=== PATIENT | female | born 1980 | race Caucasian/White ===

== ENCOUNTER 2023-09-09 09:12 | Emergency (ER) | payer OTHER, BC, SELFPAY ==
[2023-09-09 09:14] VITALS: PULSE 72; RESP 16; TEMP 36.4; O2SAT 96; BMI 37.9
[2023-09-09 09:17] VITALS: BP 143/92
--- NOTE | 2023-09-09 10:15 | ED.VIS.LOWEX ---
HPI History of Present Illness HPI Narrative: Left lower leg flap laceration, anterior mohan that occurred at work when a car park hit her leg. Tetanus needs updated. No other injuries. This occurred about 2 hours ago. Chief Complaint: Wound Informant: patient and family Occured/Mechanism Mechanism/Context: Yes injury and Yes blunt trauma Onset/Context/Timing Onset: Today and Hours Context: Sudden Onset Timing: Continuous Quality of Pain: Sharp Current Severity: Moderate Maximum Severity: Moderate Associated Symptoms Associated Symptoms: Negative for Parasthesia, Weakness or Loss of Funtion Narrative Narrative: 42-year-old female history of depression on Lexapro had a work injury today when a car part hit her in her left lower mohan causing a flap laceration and needs repaired. Tetanus needs updated. Tetanus Immunization: >10 years Prior similar symptoms: No Recent Illness/Hospitalization: No PFSH PFSH Medical History Anxiety Home Medications oxycodone-acetaminophen 5 mg-325 mg tablet (Percocet) 1 tab PO Q4H PRN pain 3 days #10 tabs 09/09/23 [Rx Last Taken Unknown] Allergy/AdvReac Type Severity Reaction Status Date / Time No Known Allergies Allergy Verified 09/09/23 09:14 Social History Smoking Status: Former smoker ROS ROS ED ROS Narrative Denies recent illness. Review of Systems ROS Unobtainable: Denies due to encephalopathy Constitutional Constitutional ED: Denies chills or fever(s) Eyes Eyes: Denies blurry vision ENT ENT ED: Denies ear pain Cardiovascular Cardiovascular: Denies chest pain Respiratory/Chest Respiratory/Chest: Denies cough or dyspnea Gastrointestinal Gastrointestinal: Denies abdominal pain Genitourinary Genitourinary ED: Denies dysuria or hematuria Musculoskeletal Musculoskeletal: Denies arthralgias or back pain Integumentary Denies abscess, Abrasions or rash Neurologic Neurologic: Denies headache(s) Psychiatric Psychiatric: Denies anxiety, depression or suicidal ideation Endocrine Endocrinology: Denies polydipsia, polyphagia or polyuria Hematologic/Lymphatic Hematologic/Lymphatic: Denies easy bleeding, easy bruising or lymphadenopathy Allergic/Immunologic Allergic/Immunologic ED: Denies mouth swelling, tongue swelling or urticaria EXAM Physical Exam Narrative Exam Narrative: Well-appearing 42-year-old female. Vital signs stable afebrile. HEENT exam unremarkable. Neck nontender no JVD. Lungs clear to auscultation bilaterally. Heart regular rhythm rate about 70 no murmur. Chest wall and ribs nontender. Abdomen soft nontender. Back nontender. Moving all 4 extremities. The left lower leg anterior lower mohan has a flap laceration approximately 6 inches in length upside down V-shaped. Active bleeding. Distally the ankle and foot are neurovascularly intact with normal DP pulse. Normal dorsi plantarflexion. Normal strength and sensation. Normal cap refill. Neurologically she is awake and alert with no focal motor deficits. Const Vital Signs: 09/09/23 09:14 09/09/23 09:17 09/09/23 11:13 Temperature 97.6 F L Temperature Source Temporal Pulse Rate 72 69 Respiratory Rate 16 16 Blood Pressure 143/92 H 176/94 H Blood Pressure Mean 109 121 Pulse Ox 96 97 Oxygen Delivery Method Room Air Room Air Positive well nourished and well developed; Negative for cachectic, contractures or unkempt General Appearance ED: well developed and NAD; Negative for unkempt, cachectic or contractures Nutritional Appearance: Negative for cachectic HEENT Reports moist mucous membranes normocephalic and atraumatic; Negative for trauma or tenderness Eyes PERRL General Eye ED: Negative for other Neck full ROM and supple Thyroid: Negative for tender or other Lymph Lymphatic: Negative for other Chest Wall inspection of chest normal and palpation of chest normal Chest: Negative for other Resp normal respiratory effort, no retractions and clear to auscultation bilaterally Effort and Inspection: Negative for pain with movement Auscultation: Negative for rales, rhonchi, wheezes or diminished lung sounds Cardio regular rate, regular rhythm, S1 normal heart sound, S2 normal heart sound and no murmurs Rate: Negative for bradycardia or tachycardic Rhythm: Negative for abnormal rhythm Bruits: Negative for other GI non-tender, non-distended and no masses Inspection: Negative for abdominal distention Auscultation: normoactive bowel sounds Palpation: soft; Negative for tender, guarding or rebound tenderness present Back/Spine no CVA tenderness General Back: Negative for CVA tenderness Cervical Spine: Negative for cervical spine tenderness Thoracic Spine / Upper Back: Negative for thoracic spinal tenderness Lumbar Spine / Lower Back: Negative for lumbar spinal tenderness Extremity normal to inspection and full ROM Extremity Narrative: Except flap laceration, upside down V, anterior left lower mohan. Active bleeding. Foot and ankle neurovascularly intact. General Extremety ED: Negative for cyanosis or edema General Extremity: Negative for cyanosis or edema Neuro oriented x3, CN's II-XII intact bilaterally and moves all extremities Sensorium / Orientation: alert, oriented to person, oriented to place and oriented to time; Negative for orientation impaired, confused, lethargic or stuporous Sensory Exam: No sensory level loss detected Motor Exam: strength 5/5 throughout; Negative for general weakness or strength abnormal Psych mental status grossly normal Appearance: Negative for unkempt Speech: No other Mood & Affect: Negative for anxious Skin No no wounds Lesions: no lesions Rashes: no rashes Trauma: laceration; Negative for abrasion MDM MDM MDM Narrative Medical decision making narrative: 42-year-old female left lower leg flap laceration needs repaired. Tetanus will be updated. 1 Percocet for pain. Patient doing well post wound closure. Will be cleaned and dressed. Tetanus was updated. History & Record Review Discussion w/independent historian: Patient Procedures Lacerations 6 inch inverted V flap laceration left lower leg:: Length: 6 in Depth: Sub Q Shape: Flap Prep: Betadine Laceration repair: Irrigated and Lidocaine Irrigated (ml): 100 Number of Sutures/[address]: 17 Suture Information: Ethilon, Simple and 4-0 Comment: Inverted V-shaped laceration anterior left lower mohan. Locally anesthetized initially with let and lidocaine. Cleaned with iodine. Washed and irrigated with saline. Explored. Involve the skin and subcu tissue. No bone. No foreign body. No tendon or ligaments. Venous bleeding. No arterial bleeding. Closed using 17 simple interrupted 4-0 Ethilon sutures. Proper hemostasis and wound closure is obtained. Instructed on wound care and suture removal. Discharge Plan Triage Chief Complaint: Wound ED Provider: Jim Helms Dx/Rx/DC Orders Clinical Impression: Encounter related to worker's compensation claim, Laceration of left leg Instructions: ED Laceration Extremity Prescriptions: New oxycodone-acetaminophen [Percocet] 5-325 mg tablet 1 tab PO Q4H PRN (Reason: pain) 3 Days Qty: 10 0RF Primary Care Provider: Davis Coy Referrals: Corporate,[facility] [Group of Physicians] - 10-14 Days suture removal (Suture removal in 14 days.) [facility] Doctor,Out of [Non-Staff] - Activity Restrictions/Additional Instructions: Keep the dressing dry and clean. Keep the wound dry and clean. After you shower carefully dry it off thoroughly. Apply antibiotic ointment daily. You can leave our dressing on for 3 to 4 days. Then start changing it daily. Apply antibiotic ointment such as bacitracin or Neosporin to the wound daily. Ice and elevate to decrease swelling and pain. Motrin and Tylenol for pain. Percocet for more severe pain if you are using the Percocet and has Tylenol already in it do not take any additional Tylenol while using the Percocet. Plenty of fluids, fruits, vegetables and fiber to prevent constipation. Do not drink or drive if using the Percocet. Off work until Tuesday. Any signs of infection such as significant redness, streaks, fever swelling or pus needs to be reevaluated to rule out any developing infection. Disposition Disposition: Home, Self Care
[2023-09-09] MEDS: Diphth,Pertuss(Acell),Tet Vac 0.5 ML Vial IM (10:27)
[2023-09-09] MEDS: Lidocaine 1% (20 ml mdv) 20 ML Vial INFILT (10:27)
[2023-09-09] MEDS: Oxycodone/Apap 5/325 Tablet PO (10:32)
[2023-09-09 11:13] VITALS: BP 176/94; PULSE 69; RESP 16; O2SAT 97
[2023-09-09 12:25] VITALS: BP 170/109; PULSE 80; RESP 16
[2023-09-09 12:28] VITALS: BP 170/94; PULSE 65; RESP 16; TEMP 37; O2SAT 98
== END 2023-09-09 12:30 | disposition home or self-care (01) ==
PROVIDERS: Emergency Provider Emergency Medicine; Visit Provider Emergency Medicine
DX: S81.812A Laceration without foreign body, left lower leg, initial encounter (principal); Z23 Encounter for immunization; W22.8XXA Striking against or struck by other objects, initial encounter; Y99.0 Civilian activity done for income or pay; Z87.891 Personal history of nicotine dependence
CPT/HCPCS: 12005; 90471; 90715; 99283

== ENCOUNTER → 2024-04-06 | Outpatient (CLI) | payer BC, SELFPAY ==
--- NOTE | 2024-04-06 16:55 | RAD_ITS ---
INDICATION: KNEE PAIN EXAMINATION/TECHNIQUE: X-RAY - RIGHT XR Knee Complete 4 Views or More 4 VIEWS COMPARISON: None. FINDINGS: SOFT TISSUES: No soft tissue swelling or gas. BONES/JOINTS: No acute fracture. Joint spaces anatomically maintained with mild degenerative changes. No sclerotic or destructive changes observed. RAD/Knee 4 or More Views IMPRESSION: Mild degenerative changes. Electronically Signed: Arik White MD at 20:31 EDT ,
--- OUTSIDE RECORDS SUMMARY | 2024-04-06 16:59 | XMS RPT_ITS | CCD ---
Author Organization [facility] CliniSyin Care Team Providers Care Stack Supervisor Name Role Phone PROVIDER, UNKNOWN Unavailable Unavailable No, PCP Unavailable Unavailable ANITHA IBARRA Unavailable Unavailable Elsa Mac Unavailable Unavailable PROVIDER, UNKNOWN Unavailable Unavailable Santo Martin Unavailable Unavailable KATIA WATSON Attending Unavailable IMCA Referring Unavailable LINZEY, ESTRADA ([facility]) Primary Care Unavailabl e COLKATIA Fong Attending Unavailable [facility] Referring Unavailable LINZEY, ESTRADA ([facility]) Primary Care Unavaillars e KATIA WATSON Attending Unavailable IMCA Referring Unavailable LINZEY, ESTRADA ([facility]) Primary Care Unavailabl e COLKATIA Fong Attending Unavailable IMCA Referring Unavailable LINZEY, ESTRADA ([facility]) Primary Care Unavailabl e LINZEY, ESTRADA ([facility]) Attending Unavailabl e IMCA Referring Unavailable LINZEY, ESTRADA ([facility]) Primary Care Unavailabl e LINZEY, ESTRADA ([facility]) Referring Unavailabl e LINZEY, ESTRADA ([facility]) Primary Care Unavailabl e LINZEY, ESTRADA ([facility]) Attending Unavailabl e IMCA Referring Unavailable LINZEY, ESTRADA ([facility]) Primary Care Unavailabl e LINZEY, ESTRADA ([facility]) Attending Unavailabl e IMCA Referring Unavailable LINZEY, ESTRADA ([facility]) Primary Care Unavailabl e LINZEY, ESTRADA ([facility]) Referring Unavailabl e LINZEY, ESTRADA ([facility]) Primary Care Unavailabl e LINZEY, ESTRADA ([facility]) Primary Care Unavailabl e LINZEY, ESTRADA ([facility]) Primary Care Unavailabl e KYLER NUR Attending Unavailable LINZEY, ESTRADA ([facility]) Referring Unavailabl e LINZEY, ESTRADA ([facility]) Primary Care Unavailabl e LINZEY, ESTRADA ([facility]) Attending Unavailabl e LINZEY, ESTRADA ([facility]) Referring Unavailabl e LINZEY, ESTRADA ([facility]) Primary Care Unavailabl e LINZEY, ESTRADA ([facility]) Referring Unavailabl e LINZEY, ESTRADA ([facility]) Primary Care Unavailabl e LINZEY, ESTRADA ([facility]) Referring Unavailabl e LINZEY, ESTRADA ([facility]) Primary Care Unavailabl e LINZEY, ESTRADA ([facility]) Referring Unavailabl e LINZEY, ESTRADA ([facility]) Primary Care Unavailabl e LINZEY, ESTRADA ([facility]) Attending Unavailabl e IMCA Referring Unavailable LINZEY, ESTRADA ([facility]) Primary Care Unavailabl e LINZEY, ESTRADA ([facility]) Referring Unavailabl e LINZEY, ESTRADA ([facility]) Primary Care Unavailabl e Rene SALGADO, Marcello Primary Care Provider William SALGADO, Daron [facility] Provid er López, Marcello Referring Unavailable López, Marcello Primary Care Unavailable Davis Coy Attending Unavailable López, Marcello Referring Unavailable Luciana Monsivais Attending Unavailable Ólpez, Marcello Primary Care Unavailable López, Marcello Referring Unavailable López, Marcello Primary Care Unavailable Josephine Herrera Attending Unavailable López, Marcello Primary Care Unavailable PROVIDER, UNKNOWN Referring Unavailable Josephine Herrera Attending Unavailable López, Marcello Primary Care Unavailable López, Marcello Referring Unavailable Nataliia Arora Attending Unavailable López, Marcello Primary Care Unavailable Ólpez, Marcello Referring Unavailable Nataliia Arora Attending Unavailable Rema SALGADO, [place] Primary Care Provider William [facility] Rema SALGADO, [place] Primary Care Provider William SAL[facility]ADO, [facility] Provid er KT WASTON Attending Unavailable KT WATSON Admitting Unavailable DARON THOMAS [facility] DANIELLA Herrera Attending Unavailable WILLIAM DARON Primary Care CHANEL Alicia Attending Unavailable ADRI HODGSON Primary Care Unavailable ADRI HODGSON Primary Care Unavailable ADRI HODGSON Primary Care Unavailable Desire SALGADO, Sinai Primary Care Provider Allergies Allergy Classification Reported Allergen(s) Allergy Type Date of Onset Reaction(s) Facility (13 sources) beta Sitosterol / ZINC CITRATE Drug Allergy 10-08-2022 Itching [facility] Medications Current Medications Medication Drug Class(es) Dates Sig (Normalized) Sig (Original) amLODIPine 10 mg oral tablet (1 source) Dihydropyridine Calcium Channel [place] Start: 07-28-2021 take 1 tablet by mouth once daily amLODIPine (NORVASC) 10 MG tablet Indications: Primary hypertension Take 1 tablet by mouth nightly 30 tablet 3 07/28/2021 Active benzonatate 100 mg oral capsule (5 sources) Non-narcotic Antitussive Start: 05-31-2023 End: 06-07-2023 take 1 capsule by mouth every eight hours benzonatate (Tessalon) 100 MG capsule Take 1 capsule (100 mg) by mouth in the morning and 1 capsule (100 mg) at noon and 1 capsule (100 mg) before bedtime. Do all this for 7 days. Do not crush or chew.. 21 capsule 0 05/31/2023 06/07/2023 Active Start: 04-11-2023 End: 04-18-2023 take 1 capsule by mouth every eight hours benzonatate (Tessalon) 100 MG capsule Take 1 capsule (100 mg) by mouth in the morning and 1 capsule (100 mg) at noon and 1 capsule (100 mg) before bedtime. Do all this for 7 days. Do not crush or chew.. 21 capsule 0 04/11/2023 04/18/2023 Active 12 hr dextromethorphan hydrobromide 30 mg / guaiFENesin 600 mg extended release oral tablet (2 sources) Uncompetitive N-dcevak-B-aspartate Receptor Antagonist, Sigma-1 Agonist Start: 04-11-2023 End: 04-21-2023 take 1 tablet by mouth every twelve hours dextromethorphan-guaiFENesin (Mucinex DM) 30-600 MG 12 hr tablet Take 1 tablet by mouth in the morning and 1 tablet in the evening. Do all this for 10 days. Do not crush, chew, or split.. 20 tablet 0 04/11/2023 04/21/2023 Active docusate sodium 100 mg oral capsule (11 sources) Start: 03-07-2018 take 1 capsule by mouth once daily docusate sodium (COLACE) 100 mg capsule Indications: Constipation, unspecified constipation type Take 1 capsule by mouth once daily. 0 03/07/2018 Active Comment on above: Take 1 capsule by mo [facility] once daily. docusate sodium 50 mg / sennosides, retirement 8.6 mg oral tablet (1 source) Start: 07-03-2021 take 2 tablets by mouth once daily sennosides-docusate sodium (SENOKOT-S) 8.6-50 MG tablet Take 2 tablets by mouth daily 3 tablet 0 07/03/2021 Active hydroCHLOROthiazi de 25 mg oral tablet (1 source) Thiazide Diuretic Start: 07-28-2021 End: 08-27-2021 take 1 tablet by mouth once daily hydroCHLOROthiazide (HYDRODIURIL) 25 MG tablet Indications: Primary hypertension Take 1 tablet by mouth daily 30 tablet 0 07/28/2021 08/27/2021 Active lisinopril 10 mg oral tablet (7 sources) Angiotensin Converting Enzyme Inhibitor Start: 10-24-2023 End: 09-22-2024 take 1 tablet by mouth once daily lisinopril 10 MG tablet Indications: Primary hypertension TAKE 1 TABLET (10 MG) BY MOUTH DAILY. 90 tablet 1 03/26/2024 09/22/2024 Active Start: 07-28-2021 End: 08-27-2021 take 1 tablet by mouth once daily lisinopril (PRINIVIL;ZESTRIL) 20 MG tablet Indications: Primary hypertension Take 1 tablet by mouth daily 30 tablet 0 07/28/2021 08/27/2021 Active ondansetron 4 mg disintegrating oral tablet (7 sources) Serotonin-3 Receptor Antagonist Start: 07-02-2021 take 1 tablet by mouth three times daily as needed for nausea ondansetron (ZOFRAN-ODT) 4 MG disintegrating tablet Take 1 tablet by mouth 3 times daily as needed for Nausea or Vomiting 21 tablet 0 07/02/2021 Active Start: 03-09-2018 take 1 tablet by radha th every six hours ondansetron orally disintegrating (ZOFRAN ODT) 4 mg disintegrating tablet Take 1 tablet by mouth every 6 hours. 8 tablet 0 03/09/2018 Active Comment on above: Take 1 tablet by radha th every 6 hours. oseltamivir 75 mg oral capsule (3 sources) Neuraminidase Inhibitor Start: 05-31-20 End: 06-05-20 take 1 capsule by mouth every twelve hours oseltamivir (Tamiflu) 75 MG capsule Take 1 capsule (75 mg) by mouth in the morning and 1 capsule (75 mg) in the evening. Do all this for 5 current plan of care. Anesthesia Observations No Documentation SIGNATURE: Jordan Witt MD PATIENT NAME: Casimiro Liu DATE: December 24, 2022 TIME: 2:36 PM CSN: [id number] [facility] ANES PRE-OPon 12-24-2022 ANES PRE-OP HNO ID: [id number] Author: Jordan Witt MD Service: Anesthesiology Author Type: Physician Type: Anesthesia Preprocedure Evaluation Filed: 12/24/2022 11:35 AM Note Text: ANESTHESIOLOGY DAY OF SURGERY NOTE : 1980 Procedure Information Date/Time: 12/24/22 1300 Procedures: BIOPSY CERVICAL CONE LEEP (Cervix) REMOVAL INTRAUTERINE DEVICE (Cervix) Location: [address] Surgeons: Kt Watson MD Estimated body mass index is 36.05 kg/m? as calculated from the following: Height as of this encounter: 162.6 cm (5' 4 ). Weight as of this encounter: 95.3 kg (210 lb). Most recent hematocrit and potassium results: Hematocrit 40.8 06/19/2018 Potassium 3.8 03/08/2018 Relevant Problems -RENAL (+) Hepatic steatosis Other (+) Splenomegaly I - PHYSICAL EVALUATION AIRWAY Patient intubated: No. Tracheostomy tube not present Mallampati: III. TM distance: >3 FB. Neck ROM: full ROM without neurological symptoms. Mouth opening: adequate. Short neck: no. Thick neck: yes Clarke present: no Lip Bite Test: I Microretrognathia/Micronag thia/Recessed Chin: No DENTAL Dental findings: missing tooth/teeth. Additional exam findings: no II - ANESTHESIA PLAN ASA Score: 2 Anesthetic Plan: general Airway type: LMA The patient is not a current smoker. NPO Status: adequate Beta Beka Monitoring Plan Monitoring plan: standard ASA. Post Procedure Analgesic Plan Postoperative analgesic plan: parenteral or oral opioids. Informed Consent Anesthetic risks, benefits, alternatives, personnel and consent discussed: yes. Patient / Responsible Alliance Party agrees to proceed: yes Patient / Surrogate agrees to blood products: blood products not planned Significant changes in the patient condition since the History and Physical, not otherwise documented in primary service progress note: no. Potential Anesthesia issues that may suggest increased risk of complications or contraindication to planned procedure: none. Vitals Value Taken Time BP 156/87 12/24/22 1116 Pulse 80 12/24/22 1111 Resp 16 12/24/22 1111 Temp 36 ?C (96.8 ?F) 12/24/22 1111 SpO2 96 % 12/24/22 1111 Facility-Administered Medications as of 12/24/2022 Medication Dose Route Frequency - lidocaine 10 mg/mL (1 %) 1-2 mg injection (XYLOCAINE) 0.1-0.2 mL INTRADERMAL PRN - lactated ringers iv infusion 5-30 mL/hr INTRAVENOUS CONTINUOUS - NaCl 0.9% iv flush bag 20 mL INTRAVENOUS PRN - ceFAZolin iv piggyback 2 g in D5W (iso-osmotic) 100 mL (ANCEF) 2 g INTRAVENOUS Pre-Op Once Outpatient Medications as of 12/24/2022 Medication Sig - escitalopram oxalate (LEXAPRO ORAL) Take by mouth. - bisacodyl (DULCOLAX) 10 mg supp 1 Suppository by RECTAL route once daily as needed. (Patient not taking: No sig reported) - ondansetron orally disintegrating (ZOFRAN ODT) 4 mg disintegrating tablet Take 1 tablet by mouth every 6 hours. (Patient not taking: No sig reported) - docusate sodium (COLACE) 100 mg capsule Take 1 capsule by mouth once daily. (Patient not taking: No sig reported) - Terbinafine (LAMISIL, AEROSOL,) 1 % spra Apply 1 application to affected area twice daily. (Patient not taking: Reported on 11/30/2022) I have interviewed and examined the patient. I have reviewed the medical record and/or the pre-anesthesia evaluation, pertinent labs, and test results. This contains updated information obtained within 48 hours of Surgery/Procedure. SIGNATURE: Jordan Witt MD PATIENT NAME: Casimiro Liu DATE: December 24, 2022 TIME: 11:24 AM CSN: [id number] Normal [facility] HCG Preg Ur Qlon 12-24-2022 HCG ( test) Ql (U) Negative Normal Negative [facility] Comment on above: Order Comment: Speci men Type: URINE SPECIMENOrdering Facility: [facility] Address: [place] [address] Result Comment: This test is intended to aid in the early detection of . Very dilute urine samples, as indicated by a low specific gravity, may not contain primary care sales representative levels of hCG. This test detects intact hCG only. This test does not reliably detect hCG degradation products, including free-beta subunit and beta-core fragment. Therefore, this test may show reduced reactivity in urine after 8 weeks gestation. A number of conditions other than , including trophoblastic disease and certain non-trophoblastic neoplasms cause elevated levels of hCG. As with any assay employing mouse antibodies, the possibility exists for interference by human anti-mouse antibodies (HAMA) in the specimen. The test provides a presumptive diagnosis for . Performed By: #### 2 106-3 ####[facility] LABCLIA [id number] [place] [address] [place] HISTORY PHYSICALon 3 HISTORY PHYSICAL HNO ID: [id number] Author: Lovely Harmon APRN.REGIONAL SALES LEADER Service: Anesthesiology Author Type: Nurse Practitioner Type: HANDP Filed: 12/24/2022 11:37 AM Note Text: HISTORY AND PHYSICAL EXAMINATION Casimiro Liu 1980 SERVICE DATE: 12/24/2022 SERVICE TIME: 10:59 AM PRIMARY CARE PHYSICIAN: Daron Thomas MD SURGEON: Surgeon(s) and Role: * Kt Watson MD - Primary ANESTHESIA: General DIAGNOSIS: Pap smear of cervix with high grade squamous intraepithelial lesion (HGSIL) [R87.613] PROCEDURE: Procedure(s): BIOPSY CERVICAL CONE LEEP (N/A) REMOVAL INTRAUTERINE DEVICE (N/A) ACTIVE PROBLEM LIST Vitamin D Deficiency Moderate Episode of Recurrent Major Depressive Disorder (Hcc) Anxiety Onychomycosis Routine Cervical Smear Visit for Gynecologic Examination Encounter for Initial Prescription of Other Contraceptives Menorrhagia With Regular Cycle Secondary Dysmenorrhea Papanicolaou Smear of Cervix With Low Grade Squamous Intraepithelial Lesion (Lgsil) Encounter for Insertion of Mirena IUD Ventral Hernia Without Obstruction Or Gangrene Hepatic Steatosis Elevated Blood Pressure Reading Without Diagnosis of Hypertension Splenomegaly Ovarian Cyst, Right Breakthrough Bleeding With IUD Pelvic Cramping Encounter for Routine Checking of Intrauterine Contraceptive Device (Iud) Encounter for Screening Mammogram for Malignant Neoplasm of Breast Papanicolaou Smear of Cervix With High Grade Squamous Intraepithelial Lesion (Hgsil) Subjective The reason for this visit is to perform a comprehensive review of the patient's past medical history, assess their current health status and obtain any additional testing required based on anesthesia guidelines. We will also identify any potential anesthesia problems or contraindications to the planned procedure. CHIEF COMPLAINT: Abnormal pap smear HPI: This is a 42 year old female who presents with c/o an abnormal pap smear a few months ago . Pt is here today for surgical intervention and IUD removal. Pt states she has had her Mirena IUD for about 5 years . Pt denies any abnormal bleeding or pain. Pt does not have periods with her IUD. Pt states she plans to have a hysterectomy, so the IUD is being removed. ANESTHESIA FINDINGS: Intubation History: No history of difficult intubation Significant Anesthesia Considerations: None FAMILY PROBLEMS WITH ANESTHESIA: no history of adverse anesthetic event METS: Climb a flight of stairs or walk up a hill (5.50 METs) FUNCTIONAL STATUS: Independent PAST MEDICAL HISTORY Diagnosis Date Anxiety Depression Pancreatitis PAST SURGICAL HISTORY Procedure Laterality Date CHOLECYSTECTOMY 2005 FAMILY HISTORY Problem Relation Age of Onset Diabetes Mother Diabetes Father Social History Tobacco Use Smoking status: Former Packs/day: 0.50 Years: 15.00 Pack years: 7.50 Types: Cigarettes Quit date: 08/29/2018 Years since quittin.3 Smokeless tobacco: Never Vaping Use Vaping Use: Never used Substance Use Topics Alcohol use: Yes Comment: occasionally Drug use: No Prior to Admission medications as of 12/24/22 1133 Medication Sig Last Dose Taking escitalopram oxalate (LEXAPRO ORAL) Take by mouth. 12/23/2022 Yes bisacodyl (DULCOLAX) 10 mg supp 1 Suppository by RECTAL route once daily as needed. Patient not taking: No sig reported ondansetron orally disintegrating (ZOFRAN ODT) 4 mg disintegrating tablet Take 1 tablet by mouth every 6 hours. Patient not taking: No sig reported docusate sodium (COLACE) 100 mg capsule Take 1 capsule by mouth once daily. Patient not taking: No sig reported Terbinafine (LAMISIL, AEROSOL,) 1 % spra Apply 1 application to affected area twice daily. Patient not taking: Reported on 11/30/2022 ALLERGIES No Known Allergies COMPLETE REVIEW OF SYSTEMS: PAIN ASSESSMENT: Pain Pain Level: 0 Pain Assessment: Assessment Tool: Verbal (Numeric Rating or Visual Analog Scale) General: No weight loss, malaise or fevers. Neuro: No neurological symptoms or problems; no hx of seizure or stroke Respiratory: No history of current cough, wheezing, dyspnea, or recent pneumonia; no hx of asthma, COPD, or DMITRY; + former smoker quit 2018 Cardiovascular: No history of HTN requiring medication, no history of chest pain, palpitations, CHF, [place], cardiac surgery or stents GI: No history of GI symptoms or problems. No nausea, vomiting, abdominal pain, diarrhea : No history of dysuria, frequency or incontinence, stones or chronic kidney disease Endocrine: Negative for Diabetes or thyroid disease Hematology: No history of bleeding or clotting disorder. No history of hematological symptoms or problems. Oncology: No history of oncological symptoms or problems. Psych: +anxiety; + depression Musculoskeletal: Negative for joint pain or swelling, back pain or muscle pain. Skin: Negative for lesions, rash and itching. Obje (more content not included)... Normal [facility] NURSING PROGon 12-24-2022 NURSING PROG HNO ID: [id number] Author: Matthew Richmond RN Service: ? Author Type: Registered Nurse Type: Nursing Progress Note Filed: 12/24/2022 2:06 PM Note Text: Discharge instructions given to patient and mom, Edita. Patient dressed self, denied help. Patient ambulated to surgery discharge exit area. [facility] OPERATIVE NOon 12-24-2022 OPERATIVE NO HNO ID: [id number] Author: Antonella Gibbs DO Service: Obstetrics Author Type: Resident Type: Operative Report Filed: 12/24/2022 1:14 PM Note Text: -- Attestation signed by Kt Watson MD at 12/24/2022 4:54 PM I was present for the critical and hogan portions of the surgery and I was immediately available to provide assistance. Kt Watson MD -- FLAG DECORATOR OPERATIVE/PROCEDURE REPORT LOG ID: [id number] Surgery/Procedure Date: 12/24/2022 Incision/Procedure Start Time: 12:27 PM Incision Close/Procedure End Time: 12:50 PM Surgeon(s)/Proceduralist(s ) and Assessment Coordinator(s): Surgeon(s) and Role: * Kt Watson MD - Primary * Antonella Gibbs DO - Resident - Assisting No Additional Staff Informed Consent: Informed Consent obtained and on the chart Procedure: Removal of Mirena IUD, LEEP test: negative Pre-Op/Pre-Procedure Diagnosis: HGSIL, HPV 16+ on pap, ECC negative Post-Op/Post-Procedure Diagnosis: Same as Pre-Op Diagnosis Anesthesia: General PROCEDURE NOTE: She was placed in supine position with her legs in Yellowfin stirrups with careful attention not to hyperflex or hyperextend the knees or hips. A blue coated speculum was placed in the vagina with clear visualization of the entire transformation zone. The IUD strings were visible at the external os. A aidee forcep was utilized to remove the mirena IUD which was examined to be intact. The cervix was then infiltrated with approximately 20cc's of 2% lidocaine with epinephrine and stained with Acetic acid solution. Using a 15 mm W x 12 mm D Green LEEP loop and 60 parks of blend current the entire transition zone was excised in two horizontal sweeps without complication. No ECC done. Bleeders were then fulgurated with the 5mm bovie using 60 parks of coagulation current. A couple of figure of 8 stitches with 0 Vicryl was placed at 4 and 5 o'clock due to bleeding edges of the cervix. Hemostasis was good. Monsel's solution was applied to the bed. Patient tolerated the procedure well Procedure Summary: Patient tolerated procedure well. Estimated Blood Loss: 15 mL Specimens: LEEP Cone Implantable Devices: NONE Drains: None Complications: None A digital sweep of the vaginal canal was performed by the Resident and it was ascertained that no instruments or other foreign bodies are retained within the cavity. Sponge, lap, and needle counts were correct times two and the patient was taken to the recovery room with stable vital signs after tolerating the procedure well. The attending was present for critical and hogan portions of the procedure or immediately available to provide assistance. I/primary surgeon/proceduralist performed the procedure with assistance. SIGNATURE: Antonella Gibbs DO PATIENT NAME: Casimiro Liu DATE: December 24, 2022 TIME: 1:09 PM PAGER/CONTACT #: [facility] SURGICAL PATHOLOGYon 023 CASE REPORT [facility] Comment on above: Order Comment: Speci men Type: TISSUE SPECIMENOrdering Facility: External Submitter Address: , , Result Comment: Surg [facility] Pathology Report Case: [id number] Authorizing Provider: Kt Watson MD Collected: 12/24/2022 12:33 PM Ordering Location: [facility] Received: 12/27/2022 12:53 PM Pathologist: Kenisha Ellison MD Specimen: CERVIX LEEP Performed By: #### S ####[facility] LABORATORYCLIA [id number] [address] OF [facility] CLINICAL HISTORY High grade squamous intraepithelial lesion on cytologic smear of cervix Normal [facility] Comment on above: Order Comment: Speci men Type: TISSUE SPECIMENOrdering Facility: External Submitter Address: , , Performed By: #### S ####[facility] LABORATORYIA [id number] [address] [place] DIAGNOSIS COMMENT Normal [facility] Comment on above: Order Comment: Speci men Type: TISSUE SPECIMENOrdering Facility: External Submitter Address: , , Result Comment: Immu nohistochemical stain for p16 shows positive result (block positivity). Selected slides have been reviewed by Dr. Jordi Barakat, who concurs with the above findings. Laboratory Developed Test (LDT) Disclaimer: Performance characteristics of immunohistochemical, immunofluorescent and chromogenic in-situ hybridization tests have been determined by the performing laboratory within [facility]???s [facility] Pathology and Laboratory Medicine [place] ([facility], [facility], [facility], [facility], [facility], or [facility]) in a manner consistent with CLIA requirements. One or more of these tests have not been cleared or approved by the FDA. [facility] is regulated under CLIA as qualified to perform high-complexity testing. These tests are used for clinical purposes. They should not be regarded as investigational or for research. Positive and negative controls stain appropriately. Performed By: #### S ####[facility] [id number] [address] FINAL DIAGNOSIS Normal [facility] Comment on above: Order Comment: Speci men Type: TISSUE SPECIMENOrdering Facility: External Submitter Address: , , Result Comment: LILIANA BlasP: -- High-grade squamous intraepithelial lesion (DIONNE-3), involves 1 out of 4 quadrants and focally extends to ectocervical margin, see comment. Performed By: #### S ####[facility] [id number] [address] FINAL PERFORMING LAB Normal [facility] Comment on above: Order Comment: Speci men Type: TISSUE SPECIMENOrdering Facility: External Submitter Address: , , Result Comment: Diag nostic interpretation performed at [facility], [address] [place] [address] CLIA# [id number] Automobile Mechanic Radiator: Cameron Ernandez M.D. Performed By: #### S ####[facility] LABORATORYCLIA [id number] [address] GROSS DESCRIPTION A. CERVIX LEEP Normal [facility] Comment on above: Order Comment: Speci men Type: TISSUE SPECIMENOrdering Facility: External Submitter Address: , , Result Comment: Rece ived in formalin labeled as cervix LEEP is an unoriented, fragmented LEEP specimen aggregating to 2.0 x 2.0 x 1.0 cm. A partial cervical os is grossly identified. The ectocervix appears pink and smooth. The ectocervical margin is outlined with blue ink. A lesion is not present. The specimen is serially section, perpendicular to the os, and totally submitted in 4 cassettes. Gross examination performed at [facility], [address] [place] [address] CLIA#[id number] [facility] December 27, 2022 2:22 PM Performed By: #### S ####[facility] LABORATORYCLIA [id number] [address] OF [facility] Basic Metabolic Panelon 02-0 Anion gap [Moles/Vol] 9 mmol/L Normal 3-13 [facility] Comment on above: Performed By: #### H A1C2, ESR, CRP2 #### [facility] [address] [place] [address] #### ANA3 #### [facility] [address] [place] [address] Calcium [Mass/Vol] 10.1 mg/dL Normal 8.4-10.4 [facility] Comment on above: Performed By: #### H A1C2, ESR, CRP2 #### [facility] [address] [place] [address] #### ANA3 #### [facility] [address] [place] [address] CO2 [Moles/Vol] 28 mmol/L Normal 22-30 [facility] Comment on above: Performed By: #### H A1C2, ESR, CRP2 #### [facility] [address] [place] [address] #### ANA3 #### [facility] [address] [place] [address] Glucose [Mass/Vol] 127 mg/dL High 70-100 [facility] Comment on above: Performed By: #### H A1C2, ESR, CRP2 #### [facility] [address] [place] [address] #### ANA3 #### [address] [address] Urea nitrogen [Mass/Vol] 16 mg/dL Normal 9-20 [facility] Comment on above: Performed By: #### H A1C2, ESR, CRP2 #### [facility] [address] [place] [address] #### ANA3 #### [address] [address] Creatinine [Mass/Vol] 0.63 mg/dL Normal 0.52-1.25 [facility] Comment on above: Performed By: #### H A1C2, ESR, CRP2 #### [facility] [address] [place] [address] #### ANA3 #### [address] [address] eGFR OTHER > 90.0 Normal >60 [facility] Comment on above: Result Comment: KDIG O guidelines provide the following GFR categories: Stage GFR(ml/min/1.73 m2) Terms G1 >=90 Normal or high G2 60-89 Mildly decreased* G3a 45-59 Mildly to moderately decreased G3b 30-44 Moderately to severely decreased G4 15-29 Severely decreased G5 <15 Kidney failure *Relative to young adult level. In the absence of evidence of kidney damage, neither GFR category G1 nor G2 fulfill the criteria for CKD. The CKD-EPI equation is validated in individuals 18 years of age and older. Currently the best equation for estimating glomerular filtration rate (GFR) from serum creatinine in children is the Bedside Wisdom equation. It is less accurate in patients with extremes of muscle mass, restriction of dietary protein, ingestion of creatine, extra-renal metabolism of creatinine, or treatment with medications that affect renal tubular creatinine secretion. Performed By: #### H A1C2, ESR, CRP2 #### [facility] [address] [place] [address] #### ANA3 #### [address] GFR/1.73 sq M.predicted among blacks MDRD (S/P/Bld) [Vol rate/Area] mL/min/{1.73_m2} Normal >60 [facility] Comment on above: Performed By: #### H A1C2, ESR, CRP2 #### [facility] [address] [place] [address] #### ANA3 #### [address] [address] Potassium [Moles/Vol] 3.8 mmol/L Normal 3.5-5.1 [facility] Comment on above: Performed By: #### H A1C2, ESR, CRP2 #### [place] [address] [place] [address] #### ANA3 #### [address] Chloride [Moles/Vol] 98 mmol/L Normal 98-107 [facility] Comment on above: Performed By: #### H A1C2, ESR, CRP2 #### [address] [place] [address] #### ANA3 #### [address] Sodium [Moles/Vol] 135 mmol/L Normal 135-145 [facility] Comment on above: Performed By: #### H A1C2, ESR, CRP2 #### [address] [place] [address] #### ANA3 #### [address] [address] CR Chest Portableon 07-21-19 22 CR Chest Portable Patient Name: CASIMIRO MCCARTY Diagnostic Radiology ACCESSION EXAM DATE/TIME PROCEDURE ORDERING PROVIDER [id number] 07/21/2021 14:27 EST CR Chest Portable [id number] NAKUL FLORES CPT code 47482 Reason For Exam (CR Chest Portable) left sided chest pain Report Examination: AP portable chest Clinical Indication: left sided chest pain Comparison: 06/28/2021 Findings: Lungs appear normally inflated. Minimal subsegmental atelectasis left costophrenic angle improved from comparison. There is no focal consolidation, effusion, or pulmonary edema identified. The cardiomediastinal silhouette is within normal limits. There is no gross evidence of osseous abnormality. Impression: No acute cardiopulmonary process. Report Dictated on Final Dictating Physician: MD DAVIS ANTHONY J Signed Date and Time: 07/21/2021 2:42 pm Signed by: MD DAVIS ANTHONY J Transcribed Date and Time: 07/21/2021 2:43 Normal [facility] ED Provider Noteon ED Provider Note Emergency Department Encounter [facility] ED Patient: Casimiro Liu : 1980 Date of Evaluation: 07/21/2021 ED Supervising Physician: Luciana Monsivais DO I independently examined and evaluated Casimiro Liu. In brief, ED Course as of 07/21/21 1541 Tue Jul 21, 2021 1416 40-year-old female presents emergency department today with some mild left-sided chest pain as well as high blood pressure. She states that she was recently admitted for acute pancreatitis is being evaluated for autoimmune causes and also had been told that she is hypertensive was recently started on multiple antihypertensive medications. She states today she was reaching for something and noticed an electric tingling sensation in her left arm which is since resolved. Reports mild headache as well. Denies any blurry vision, weakness, current numbness or tingling or any speech issues [BM] 1416 on exam patient's NIH stroke scale is 0. She is not a TPA candidate due to no acute focal neurological deficits at this time, low NIH stroke scale. [BM] 1416 Neurological exam is currently unremarkable, no sensation deficits, no strength deficits, no acute visual field deficits, speech is normal. [BM] 1417 Patient is low risk heart score [BM] 1417 And has atypical chest pain history however will obtain cardiac evaluation here and continue to monitor for any recurrence of her tingling in the upper extremity. [BM] 1417 At this time patient's blood pressure is within normal limits at 120/73 no need for intervention at this time. [BM] 1522 Chest x-ray showing no acute process. [BM] ED Course User Index [BM] Luciana Monsivais DO Patient signed out to oncoming emergency medicine physician pending laboratory studies. If troponin is negative as she is low risk heart score I feel she is safe for discharge home with cardiology follow-up for stress testing. All diagnostic, treatment, and disposition decisions were made by myself in conjunction with the Resident. I also supervised hogan portions of any procedures performed by the Resident. For all further details of the patient's emergency department visit, please see their documentation. (Please note that portions of this note may have been completed with a voice recognition program. Efforts were made to edit the dictations but occasionally words are mis-transcribed.) Luciana Monsivais DO [employer] Luciana Monsivais DO 07/21/21 1542 [facility] ED Provider Note [facility] ED EMERGENCY DEPARTMENT ENCOUNTER Pt Name: Casimiro Liu Birthdate 1980 Date of evaluation: 07/21/2021 Provider: Nakul López MD CHIEF COMPLAINT Chief Complaint Patient presents with ? Hypertension HISTORY OF PRESENT ILLNESS (Location/Symptom, Timing/Onset, Context/Setting, Quality, Duration, Modifying Factors, Severity) Note limiting factors. I wore a kn95 mask for the entirety of this encounter. Does this patient come from an ECF, SNF, Rehab, Mcfp or other Congregate setting: no (If yes to above patient needs a Covid-19 test) HPI Casimiro Liu is a 40 y.o. female who presents to the emergency department with concerns of left-sided shocking chest pain as well as tingling in her left arm that occurred around 1020 this morning. Patient states she has been feeling well over the past day where she was having a sore throat, headache and went to sleep at 430. This morning was also having the symptoms but went to work. 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 Patient states she was admitted to the hospital in the beginning of June where she was noted to have pancreatitis, elevated blood pressure as well as COVID-19. Did have improvement in her symptoms as well as started on antihypertensive medication prior to discharge which she has been taking. Also is on a course of steroids for her pancreatitisas there is an unknown reason for it. Does endorse some fevers/chills. Denies any shortness of breath associated with this. Did endorse some nausea yesterday and today. No emesis. Nursing Notes were reviewed. REVIEW OF SYSTEMS (2+ for level 4; 10+ for level 5) Review of Systems Constitutional: Positive for activity change. Negative for chills, diaphoresis, fatigue and fever. HENT: Negative for congestion, ear pain, postnasal drip, rhinorrhea, sneezing and sore throat. Eyes: Negative for pain and redness. Respiratory: Negative for cough, chest tightness and shortness of breath. Cardiovascular: Positive for chest pain. Negative for leg swelling. Gastrointestinal: Negative for abdominal pain, constipation, diarrhea, nausea and vomiting. Endocrine: Negative for polyuria. Genitourinary: Negative for dysuria, flank pain and hematuria. Musculoskeletal: Negative for arthralgias, back pain and neck pain. Skin: Negative for pallor and rash. Neurological: Positive for numbness. Negative for dizziness, weakness and headaches. PAST MEDICAL HISTORY History reviewed. No pertinent past medical history. SURGICAL HISTORY Past Surgical History: Procedure Laterality Date ? CHOLECYSTECTOMY CURRENT MEDICATIONS Discharge Medication List as of 07/21/2021 4:36 PM CONTINUE these medications which have NOT CHANGED Details spironolactone (ALDACTONE) 25 MG tablet Take 1 tablet by mouth daily, Disp-30 tablet, R-3Normal hydroCHLOROthiazide (HYDRODIURIL) 25 MG tablet Take 1 tablet by mouth daily, Disp-30 tablet, R-3Normal amLODIPine (NORVASC) 10 MG tablet Take 1 tablet by mouth nightly, Disp-30 tablet, R-3Normal polyethylene glycol (GLYCOLAX) 17 g packet Take 17 g by mouth 2 times daily, Disp-527 g, R-1Normal sennosides-docusate sodium (SENOKOT-S) 8.6-50 MG tablet Take 2 tablets by mouth daily, Disp-3 tablet, R-0Normal lisinopril (PRINIVIL;ZESTRIL) 20 MG tablet Take 1 tablet by mouth 2 times daily, Disp-60 tablet, R-0Normal predniSONE (DELTASONE) 20 MG tablet Take 2 tablets by mouth daily for 12 days, THEN 1 tablet daily for 5 days, THEN 0.5 tablets daily for 5 days., Disp-32 tablet, R-0Normal ondansetron (ZOFRAN-ODT) 4 MG disintegrating tablet Take 1 tablet by mouth 3 times daily as needed for Nausea or Vomiting, Disp-21 tablet, R-0Normal ALLERGIES Patient has no known allergies. FAMILY HISTORY History reviewed. No pertinent family history. SOCIAL HISTORY Social History Socioeconomic History ? Marital status: Single Spouse name: None ? Number of children: None ? Years of education: None ? Highest education level: None Occupational History ? None Tobacco Use ? Smoking status: Former Smoker Quit date: 2016 Years since quittin.0 ? Smokeless tobacco: Never Used ? Tobacco comment: occasional Vaping Use ? Vaping Use: Never used Substance and Sexual Activity ? Alcohol use: Not Currently Comment: rarely ? Drug use: No ? Sexual activity: Not Currently Other Topics Concern ? None Social History Narrative ? None Social Determinants of Health Financial Resource Strain: Medium Risk ? Difficulty of Paying Living Expenses: Somewhat hard Food Insecurity: No Food Insecurity ? Worried About Running Out of Food in the Last Year: Never true ? Ran Out of Food in the Last Year: Never true Transportation Needs: No Transportation Needs ? Lack of Transportation (Medical): No ? Lack of Transportation (Non-Medical): No Physic (more content not included)... Normal [facility] Hemogramon 07-21-2021 Erythrocyte distribution width (RBC) [Ratio] 14.0 % Normal 11.5-14.5 [facility] Comment on above: Performed By: #### H A1C2, ESR, CRP2 #### [facility] [address] [place] [address] #### ANA3 #### [facility] [address] [place] [address] Hematocrit (Bld) [Volume fraction] 43.0 % Normal 35.0-47.0 [facility] Comment on above: Performed By: #### H A1C2, ESR, CRP2 #### [facility] [address] [place] [address] #### ANA3 #### [address] [address] Hemoglobin (Bld) [Mass/Vol] 14.1 g/dL Normal 11.7-16.0 [facility] Comment on above: Performed By: #### H A1C2, ESR, CRP2 #### [facility] [address] [place] [address] #### ANA3 #### [place] [address] [place], [place] MCH (RBC) [Entitic mass] 27.9 pg Normal 26.0-34.0 [facility] Comment on above: Performed By: #### H A1C2, ESR, CRP2 #### [address] [place] [address] #### ANA3 #### [address] MCHC 32.7 % Normal 32.0-36.0 [facility] Comment on above: Performed By: #### H A1C2, ESR, CRP2 #### [address] [place] [address] #### ANA3 #### [address] MCV (RBC) [Entitic vol] 85.2 fL Normal 79.0-98.0 [facility] Comment on above: Performed By: #### H A1C2, ESR, CRP2 #### [address] [place] [address] #### ANA3 #### [address] Platelet mean volume (Bld) [Entitic vol] 8.2 fL Normal 7.4-10.4 [facility] Comment on above: Performed By: #### H A1C2, ESR, CRP2 #### [address] [place] [address] #### ANA3 #### [address] Platelets (Bld) [#/Vol] 414 10*3/uL Normal 140-440 [facility] Comment on above: Performed By: #### H A1C2, ESR, CRP2 #### [address] [place] [address] #### ANA3 #### [facility] [address] [place] [address] RBC (Bld) [#/Vol] 5.05 10*6/uL Normal 3.80-5.20 [facility] Comment on above: Performed By: #### H A1C2, ESR, CRP2 #### [facility] [address] [place] [address] #### ANA3 #### [facility] [address] [place] [address] WBC (Bld) [#/Vol] 13.3 10*3/uL High 3.6-10.7 [facility] Comment on above: Performed By: #### H A1C2, ESR, CRP2 #### [facility] [address] [place] [address] #### ANA3 #### [facility] [address] [place] [address] Troponin Ion 07-21-2021 Troponin I.cardiac [Mass/Vol] ng/mL Normal 0.000-0.034 [facility] Comment on above: Result Comment: . Performed By: #### H A1C2, ESR, CRP2 #### [facility] [address] [place] [address] #### ANA3 #### [facility] [address] [place] [address] CA 19-9on 07-05-2021 CA 19-9 30 U/mL Normal 0-37 [facility] Comment on above: Result Comment: INTE RPRETIVE INFORMATION: Cancer Antigen-GI (CA 19-9) This test uses Hector CA 19-9 electrochemiluminescent immunoassay. Results obtained with different test methods or kits cannot be used interchangeably. CA 19-9 value is useful in monitoring pancreatic, hepatobiliary, gastric, hepatocellular, and colorectal cancer. CA 19-9 value, regardless of level, should not be interpreted as absolute evidence of the presence or absence of malignant disease. Performed By: [employer] [address] [place] [id number] [employer] Radiator: Sofia Anderson MD Performed By: #### H EMDF, CMP3M #### [facility] [address] [place] [address] Comp Panel with Mg Reflexon 07-04-2021 Calcium [Mass/Vol] 9.4 mg/dL Normal 8.4-10.4 [facility] Comment on above: Performed By: #### H EMDF, CMP3M, MG3 #### [facility] [address] [place] [address] ALP [Catalytic activity/Vol] 55 U/L Normal 38-126 [facility] Comment on above: Performed By: #### H EMDF, CMP3M, MG3 #### [facility] [address] [place] [address] ALT [Catalytic activity/Vol] 31 U/L Normal 0-34 [facility] Comment on above: Result Comment: The ALT test is performed by an updated assay method. Please note that the reference intervals have been changed and are now sex specific. Performed By: #### H EMDF, CMP3M, MG3 #### [facility] [address] [place] [address] Anion gap [Moles/Vol] 8 mmol/L Normal 3-13 [facility] Comment on above: Performed By: #### H EMDF, CMP3M, MG3 #### [facility] [address] [place] [address] AST [Catalytic activity/Vol] 44 U/L Normal 15-46 [facility] Comment on above: Performed By: #### H EMDF, CMP3M, MG3 #### [facility] [address] [place] [address] Bilirubin [Mass/Vol] 0.6 mg/dL Normal 0.2-1.3 [facility] Comment on above: Performed By: #### H EMDF, CMP3M, MG3 #### [facility] [address] [place] [address] CO2 [Moles/Vol] 29 mmol/L Normal 22-30 [facility] Comment on above: Performed By: #### H EMDF, CMP3M, MG3 #### [facility] [address] [place] [address] Creatinine [Mass/Vol] 0.57 mg/dL Normal 0.52-1.25 [facility] Comment on above: Performed By: #### H EMDBLU Jerome3M, MG3 #### [facility] [address] [place] [address] eGFR OTHER > 90.0 Normal >60 [facility] Comment on above: Result Comment: KDIG O guidelines provide the following GFR categories: Stage GFR(ml/min/1.73 m2) Terms G1 >=90 Normal or high G2 60-89 Mildly decreased* G3a 45-59 Mildly to moderately decreased G3b 30-44 Moderately to severely decreased G4 15-29 Severely decreased G5 <15 Kidney failure *Relative to young adult level. In the absence of evidence of kidney damage, neither GFR category G1 nor G2 fulfill the criteria for CKD. The CKD-EPI equation is validated in individuals 18 years of age and older. Currently the best equation for estimating glomerular filtration rate (GFR) from serum creatinine in children is the Bedside Wisdom equation. It is less accurate in patients with extremes of muscle mass, restriction of dietary protein, ingestion of creatine, extra-renal metabolism of creatinine, or treatment with medications that affect renal tubular creatinine secretion. Performed By: #### H WU CMP3M, MG3 #### [facility] [address] [place] [address] GFR/1.73 sq M.predicted among blacks MDRD (S/P/Bld) [Vol rate/Area] mL/min/{1.73_m2} Normal >60 [facility] Comment on above: Performed By: #### H WU CMP3M, MG3 #### [facility] [address] [place] [address] Glucose [Mass/Vol] 99 mg/dL Normal 70-100 [facility] Comment on above: Performed By: #### H EMDF CMP3M, MG3 #### [facility] [address] [place] [address] Protein [Mass/Vol] 7.3 g/dL Normal 6.3-8.2 [facility] Comment on above: Performed By: #### H EMDF, CMP3M, MG3 #### [facility] [address] [place] [address] Urea nitrogen [Mass/Vol] 17 mg/dL Normal 9-20 [facility] Comment on above: Performed By: #### H EMDF, CMP3M, MG3 #### [facility] [address] [place] [address] Albumin [Mass/Vol] 4.2 g/dL Normal 3.5-5.0 [facility] Comment on above: Performed By: #### H EMDF, CMP3M, MG3 #### [facility] [address] [place] [address] Chloride [Moles/Vol] 100 mmol/L Normal 98-107 [facility] Comment on above: Performed By: #### H EMDF, CMP3M, MG3 #### [facility] [address] [place] [address] Potassium [Moles/Vol] 3.5 mmol/L Normal 3.5-5.1 [facility] Comment on above: Performed By: #### H EMDF, CMP3M, MG3 #### [facility] [address] [place] [address] Sodium [Moles/Vol] 137 mmol/L Normal 135-145 [facility] Comment on above: Performed By: #### H EMDF, CMP3M, MG3 #### [facility] [address] [place] [address] Hemogram w/ Autodiffon 07-04 Abs Baso Cnt 0.1 10*3/uL Normal 0.0-0.2 [facility] Comment on above: Performed By: #### H EMDF, CMP3M, MG3 #### [facility] [address] [place] [address] Abs Neutrophile Cnt 7.3 10*3/uL High 1.8-7.0 [facility] Comment on above: Performed By: #### H EMDF, CMP3M, MG3 #### [facility] [address] [place] [address] Basophils/100 WBC (Bld) 1.2 % Normal 0.0-2.0 [facility] Comment on above: Performed By: #### H EMDF, CMP3M, MG3 #### [facility] [address] [place] [address] Eosinophils (Bld) [#/Vol] 0.1 10*3/uL Normal 0.0-0.5 [facility] Comment on above: Performed By: #### H EMDF, CMP3M, MG3 #### [facility] [address] [place] [address] Eosinophils/100 WBC (Bld) 1.0 % Normal 1.0-6.0 [facility] Comment on above: Performed By: #### H EMDF, CMP3M, MG3 #### [facility] [address] [place] [address] Erythrocyte distribution width (RBC) [Ratio] 14.0 % Normal 11.5-14.5 [facility] Comment on above: Performed By: #### H EMDF, CMP3M, MG3 #### [facility] [address] [place] [address] Granulocytes/100 WBC (Bld) 61.6 % Normal 40.0-80.0 [facility] Comment on above: Performed By: #### H EMDF, CMP3M, MG3 #### [facility] [address] [place] [address] Hematocrit (Bld) [Volume fraction] 39.0 % Normal 35.0-47.0 [facility] Comment on above: Performed By: #### H EMDF, CMP3M, MG3 #### [facility] [address] [place] [address] Hemoglobin (Bld) [Mass/Vol] 12.6 g/dL Normal 11.7-16.0 [facility] Comment on above: Performed By: #### H EMDF, CMP3M, MG3 #### [facility] [address] [place] [address] Lymphocytes (Bld) [#/Vol] 3.6 10*3/uL Normal 1.0-4.3 [facility] Comment on above: Performed By: #### H EMDF, CMP3M, MG3 #### [facility] [address] [place] [address] Lymphocytes/100 WBC (Bld) 30.1 % Normal 20.0-40.0 [facility] Comment on above: Performed By: #### H EMDF, CMP3M, MG3 #### [facility] [address] [place] [address] MCH (RBC) [Entitic mass] 27.7 pg Normal 26.0-34.0 [facility] Comment on above: Performed By: #### H EMDF, CMP3M, MG3 #### [facility] [address] [place] [address] MCHC 32.2 % Normal 32.0-36.0 [facility] Comment on above: Performed By: #### H EMDF, CMP3M, MG3 #### [facility] [address] [place] [address] MCV (RBC) [Entitic vol] 86.1 fL Normal 79.0-98.0 [facility] Comment on above: Performed By: #### H EMDF, CMP3M, MG3 #### [facility] [address] [place] [address] Monocytes (Bld) [#/Vol] 0.7 10*3/uL Normal 0.0-0.8 [facility] Comment on above: Performed By: #### H EMDF, CMP3M, MG3 #### [facility] [address] [place] [address] Monocytes/100 WBC (Bld) 6.1 % Normal 2.0-10.0 [facility] Comment on above: Performed By: #### H EMDF, CMP3M, MG3 #### [facility] [address] [place] [address] Platelet mean volume (Bld) [Entitic vol] 8.4 fL Normal 7.4-10.4 [facility] Comment on above: Performed By: #### H EMDF, CMP3M, MG3 #### [facility] [address] [place] [address] Platelets (Bld) [#/Vol] 370 10*3/uL Normal 140-440 [facility] Comment on above: Performed By: #### H EMDF, CMP3M, MG3 #### [facility] [address] [place] [address] RBC (Bld) [#/Vol] 4.53 10*6/uL Normal 3.80-5.20 [facility] Comment on above: Performed By: #### H EMDJustus CMP3M, MG3 #### [facility] [address] [place] [address] WBC (Bld) [#/Vol] 11.9 10*3/uL High 3.6-10.7 [facility] Comment on above: Performed By: #### H EMDF CMP3M, MG3 #### [facility] [address] [place] [address] Magnesiumon 07-04-2021 Magnesium [Mass/Vol] 1.8 mg/dL Normal 1.6-2.3 [facility] Comment on above: Performed By: #### H EMDJustus CMP3M, MG3 #### [place] [address] [place] [address] Add on test from HISon 07-03 Add on test from HIS Accepted Normal [facility] Comment on above: Result Comment: Spec imen available & acceptable for analysis. Performed By: #### Chinyere WASHBURN CMP3M #### [facility] [address] [place] [address] Comp Panel with Mg Reflexon 07-03-2021 ALP [Catalytic activity/Vol] 55 U/L Normal 38-126 [facility] Comment on above: Performed By: #### Chinyere WASHBURN CMP3M #### [facility] [address] [place] [address] ALT [Catalytic activity/Vol] 18 U/L Normal 0-34 [facility] Comment on above: Result Comment: The ALT test is performed by an updated assay method. Please note that the reference intervals have been changed and are now sex specific. Performed By: #### H WU CMP3M #### [facility] [address] [place] [address] Calcium [Mass/Vol] 9.3 mg/dL Normal 8.4-10.4 [facility] Comment on above: Performed By: #### H EMDF, CMP3M #### [facility] [address] [place] [address] Glucose [Mass/Vol] 102 mg/dL High 70-100 [facility] Comment on above: Performed By: #### Chinyere WASHBURN CMP3M #### [facility] [address] [place] [address] Urea nitrogen [Mass/Vol] 10 mg/dL Normal 9-20 [facility] Comment on above: Performed By: #### Chinyere WASHBURN CMP3M #### [facility] [address] [place] [address] Anion gap [Moles/Vol] 7 mmol/L Normal 3-13 [facility] Comment on above: Performed By: #### Chinyere WASHBURN CMP3M #### [facility] [address] [place] [address] AST [Catalytic activity/Vol] 30 U/L Normal 15-46 [facility] Comment on above: Performed By: #### Chinyere WASHBURN CMP3M #### [facility] [address] [place] [address] Bilirubin [Mass/Vol] 0.4 mg/dL Normal 0.2-1.3 [facility] Comment on above: Performed By: #### Chinyere WASHBURN CMP3M #### [facility] [address] [place] [address] CO2 [Moles/Vol] 30 mmol/L Normal 22-30 [facility] Comment on above: Performed By: #### Chinyere WASHBURN CMP3M #### [facility] [address] [place] [address] Creatinine [Mass/Vol] 0.43 mg/dL Low 0.52-1.25 [facility] Comment on above: Performed By: #### Chinyere WASHBURN CMP3M #### [facility] [address] [place] [address] eGFR OTHER > 90.0 Normal >60 [facility] Comment on above: Result Comment: KDIG O guidelines provide the following GFR categories: Stage GFR(ml/min/1.73 m2) Terms G1 >=90 Normal or high G2 60-89 Mildly decreased* G3a 45-59 Mildly to moderately decreased G3b 30-44 Moderately to severely decreased G4 15-29 Severely decreased G5 <15 Kidney failure *Relative to young adult level. In the absence of evidence of kidney damage, neither GFR category G1 nor G2 fulfill the criteria for CKD. The CKD-EPI equation is validated in individuals 18 years of age and older. Currently the best equation for estimating glomerular filtration rate (GFR) from serum creatinine in children is the Bedside Wisdom equation. It is less accurate in patients with extremes of muscle mass, restriction of dietary protein, ingestion of creatine, extra-renal metabolism of creatinine, or treatment with medications that affect renal tubular creatinine secretion. Performed By: #### Chinyere WASHBURN CMP3M #### [facility] [address] [place] [address] GFR/1.73 sq M.predicted among blacks MDRD (S/P/Bld) [Vol rate/Area] mL/min/{1.73_m2} Normal >60 [facility] Comment on above: Performed By: #### Chinyere WASHBURN CMP3M #### [facility] [address] [place] [address] Protein [Mass/Vol] 6.7 g/dL Normal 6.3-8.2 [facility] Comment on above: Performed By: #### Chinyere WASHBURN CMP3M #### [facility] [address] [place] [address] Chloride [Moles/Vol] 102 mmol/L Normal 98-107 [facility] Comment on above: Performed By: #### Chinyere WASHBURN CMP3M #### [facility] [address] [place] [address] Potassium [Moles/Vol] 3.5 mmol/L Normal 3.5-5.1 [facility] Comment on above: Performed By: #### H WU CMP3M #### [facility] [address] [place] [address] Sodium [Moles/Vol] 139 mmol/L Normal 135-145 [facility] Comment on above: Performed By: #### Chinyere WASHBURN CMP3M #### [facility] [address] [place] [address] Albumin [Mass/Vol] 3.8 g/dL Normal 3.5-5.0 [facility] Comment on above: Performed By: #### Chinyere WASHBURN CMP3M #### [facility] [address] [place] [address] Hemogram w/ Autodiffon 07-03 Abs Baso Cnt 0.1 10*3/uL Normal 0.0-0.2 [facility] Comment on above: Performed By: #### H WU CMP3M #### [facility] [address] [place] [address] Abs Neutrophile Cnt 5.3 10*3/uL Normal 1.8-7.0 [facility] Comment on above: Performed By: #### H WU CMP3M #### [facility] [address] [place] [address] Basophils/100 WBC (Bld) 0.7 % Normal 0.0-2.0 [facility] Comment on above: Performed By: #### H WU CMP3M #### [facility] [address] [place] [address] Eosinophils (Bld) [#/Vol] 0.0 10*3/uL Normal 0.0-0.5 [facility] Comment on above: Performed By: #### H WU CMP3M #### [facility] [address] [place] [address] Eosinophils/100 WBC (Bld) 0.3 % Low 1.0-6.0 [facility] Comment on above: Performed By: #### H WU CMP3M #### [facility] [address] [place] [address] Erythrocyte distribution width (RBC) [Ratio] 13.8 % Normal 11.5-14.5 [facility] Comment on above: Performed By: #### H WU CMP3M #### [facility] [address] [place] [address] Granulocytes/100 WBC (Bld) 67.3 % Normal 40.0-80.0 [facility] Comment on above: Performed By: #### H WU CMP3M #### [facility] [address] [place] [address] Hematocrit (Bld) [Volume fraction] 33.1 % Low 35.0-47.0 [facility] Comment on above: Performed By: #### Chinyere WASHBURN CMP3M #### [facility] [address] [place] [address] Hemoglobin (Bld) [Mass/Vol] 11.1 g/dL Low 11.7-16.0 [facility] Comment on above: Performed By: #### Chinyere WASHBURN CMP3M #### [facility] [address] [place] [address] Lymphocytes (Bld) [#/Vol] 2.0 10*3/uL Normal 1.0-4.3 [facility] Comment on above: Performed By: #### Chinyere WASHBURN CMP3M #### [facility] [address] [place] [address] Lymphocytes/100 WBC (Bld) 25.9 % Normal 20.0-40.0 [facility] Comment on above: Performed By: #### Chinyere WASHBURN CMP3M #### [facility] [address] [place] [address] MCH (RBC) [Entitic mass] 28.9 pg Normal 26.0-34.0 [facility] Comment on above: Performed By: #### Chinyere WASHBURN CMP3M #### [facility] [address] [place] [address] MCHC 33.7 % Normal 32.0-36.0 [facility] Comment on above: Performed By: #### Chinyere WASHBURN CMP3M #### [facility] [address] [place] [address] MCV (RBC) [Entitic vol] 85.7 fL Normal 79.0-98.0 [facility] Comment on above: Performed By: #### Chinyere WASHBURN CMP3M #### [facility] [address] [place] [address] Monocytes (Bld) [#/Vol] 0.5 10*3/uL Normal 0.0-0.8 [facility] Comment on above: Performed By: #### Chinyere WASHBURN CMP3M #### [facility] [address] [place] [address] Monocytes/100 WBC (Bld) 5.8 % Normal 2.0-10.0 [facility] Comment on above: Performed By: #### Chinyere WASHBURN CMP3M #### [facility] [address] [place] [address] Platelet mean volume (Bld) [Entitic vol] 8.8 fL Normal 7.4-10.4 [facility] Comment on above: Performed By: #### Chinyere WAHSBURN CMP3M #### [facility] [address] [place] [address] Platelets (Bld) [#/Vol] 256 10*3/uL Normal 140-440 [facility] Comment on above: Performed By: #### Chinyere WASHBURN CMP3M #### [facility] [address] [place] [address] RBC (Bld) [#/Vol] 3.85 10*6/uL Normal 3.80-5.20 [facility] Comment on above: Performed By: #### Chinyere WASHBURN CMP3M #### [facility] [address] [place] [address] WBC (Bld) [#/Vol] 7.9 10*3/uL Normal 3.6-10.7 [facility] Comment on above: Performed By: #### Chinyere WASHBURN CMP3M #### [facility] [address] [place] [address] Magnesiumon 07-03-2021 Magnesium [Mass/Vol] 1.9 mg/dL Normal 1.6-2.3 [facility] Comment on above: Performed By: #### Chinyere WASHBURN CMP3M #### [facility] [address] [place] [address] Thyroid Stim. Hormoneon 06-20 Thyroid Stim. Hormone 1.463 u[IU]/mL Normal 0.465-4.68 0 [facility] Comment on above: Performed By: #### Chinyere WASHBURN CMP3M #### [facility] [address] [place] [address] VL Renal Artery Duplexon VL Renal Artery Duplex Patient Name: CASIMIRO LIUN: [id number] Ultrasound ACCESSION EXAM DATE/TIME PROCEDURE ORDERING PROVIDER [id number] 07/03/2021 10:25 EST Renal Artery Duplex [id number] -[place] CPT code 79703 Reason For Exam (VL Renal Artery Duplex) r/o renal artery stenosis Report [facility] [place] Renal Artery Duplex Patient Noe : 1980 Study 07/03/2021 Name: Casimiro (40yrs) Date: Patient [id number] Age: 40 Account: [id number] ID: Gender: F Loc: 146 BP: Ordering Physician: Selin Ma [employer] Consultant: Brandi Flores RDMS, RVT Interpreting Physician: Maude Ivy M.D. Location: [facility] Indications: HTN, Renal artery stenosis. Conclusions 1. Study is negative for hemodynamically significant stenosis involving the right renal artery. 2. Study is negative for hemodynamically significant stenosis involving the left renal artery. 3. The right renal veinappears patent and demonstrates normal phasicity. 4. The left renal veinappears patent and demonstrates normal phasicity. 5. The right kidney size is within normal limits. 6. The left kidney size is within normal limits. History: Risk factors: Hypertension. Study data: Complete renal arterial duplex. Duplex scan, grayscale 2D imaging, color Doppler imaging, and spectral Doppler analysis. Location: Vascular laboratory. Objective: Diagnostic evaluation. Ultrasound Report Procedure: A vascular evaluation was performed with the patient in the supine position. Images were obtained using a [employer] E9 vascular ultrasound machine. The abdominal aorta, the right renal and left renal arteries, and the left renal and right renal veins were studied. Arterial flow: + --+ + +----+--------+ +Location +PSV(cm/sec)+EDV(cm/sec)+R I +AT + + --+ + +----+--------+ +Suprarenal aorta +81 + +----+-------- + + --+ + +----+--------+ +R renal artery max , origin+119 +36 +----+--------+ + --+ + +----+--------+ +R renal artery max , prox +102 +29 +----+--------+ + --+ + +----+--------+ +R renal artery max , mid +95 +18 +----+--------+ + --+ + +----+--------+ +R renal artery max , distal+82 +20 +----+--------+ + --+ + +----+--------+ +R segmental + + +0 .69+0.03 sec+ + --+ + +----+--------+ +R arcuate + + +0 .64+0.04 sec+ + --+ + +----+--------+ +L renal artery max , prox +64 +16 +----+--------+ + --+ + +----+--------+ +L renal artery max , mid +106 +29 +----+--------+ + --+ + +----+--------+ +L renal artery max , distal+97 +24 +----+--------+ + --+ + +----+--------+ +Accessory L renal , origin +65 +7 +----+--------+ + --+ + +----+--------+ +L segmental + + +0 .72+0.03 sec+ + --+ + +----+--------+ +L arcuate + + +0 .74+0.04 sec+ + --+ + +----+--------+ Velocity ratios: + +-- ---+ + +Ratio+ + +-- ---+ +Right max renal/aortic+1.26 + + +-- ---+ +Left max renal/aortic +1.3 + + +-- ---+ Kidney length: +---------+ +-- ---------+ + +Right kidney+Left kidney+ +---------+ +-- ---------+ +Long axis+11.75 cm +12.13 cm + +---------+ +-- ---------+ Venous flow and imaging: + +-------+ +Location +Overall+ + +-------+ +R renal vein+Patent + + +-------+ +L renal vein+Patent + + +-------+ Ultrasound Report Prepared and electronically signed by Maude Ivy M.D. 07/03/2021 11:37 Final Dictated: 07/03/2021 11:38 am Dictating Physician: MAUDE IVY Signed Date and Time: 07/03/2021 11:38 am Signed by: MAUDE IVY Cardiovasc (more content not included)... Normal [facility] C-Reactive Proteinon 022 CRP [Mass/Vol] 130.7 mg/L High 0.0-9.9 [facility] Comment on above: Result Comment: . Performed By: #### H A1C2, ESR, CRP2 #### [facility] [address] [place] [address] #### ANA3 #### [facility] [place], [place] Comp Panel with Mg Reflexon 07-02-2021 ALP [Catalytic activity/Vol] 58 U/L Normal 38-126 [facility] Comment on above: Performed By: #### H A1C2, ESR, CRP2 #### [facility] [address] [place] [address] #### ANA3 #### [facility] [address] [place], [place] ALT [Catalytic activity/Vol] 17 U/L Normal 0-34 [facility] Comment on above: Result Comment: The ALT test is performed by an updated assay method. Please note that the reference intervals have been changed and are now sex specific. Performed By: #### H A1C2, ESR, CRP2 #### [place] [address] [place] [address] #### ANA3 #### [place] [address] [address] [place], [place] Anion gap [Moles/Vol] 5 mmol/L Normal 3-13 [facility] Comment on above: Performed By: #### H A1C2, ESR, CRP2 #### [place] [address] [place] [address] #### ANA3 #### [place] [address] [address] [facility], [place] AST [Catalytic activity/Vol] 24 U/L Normal 15-46 [facility] Comment on above: Performed By: #### H A1C2, ESR, CRP2 #### [place] [address] [place] [address] #### ANA3 #### [place] [address] [address] [facility], [place] Bilirubin [Mass/Vol] 0.3 mg/dL Normal 0.2-1.3 [facility] Comment on above: Performed By: #### H A1C2, ESR, CRP2 #### [place] [address] [place] [address] #### ANA3 #### [place] [address] [address] [facility], [place] Calcium [Mass/Vol] 8.7 mg/dL Normal 8.4-10.4 [facility] Comment on above: Performed By: #### H A1C2, ESR, CRP2 #### [place] [address] [place] [address] #### ANA3 #### [place] [address] [address] [facility], [place] CO2 [Moles/Vol] 29 mmol/L Normal 22-30 [facility] Comment on above: Performed By: #### H A1C2, ESR, CRP2 #### [address] [place] [address] #### ANA3 #### [address] Creatinine [Mass/Vol] 0.47 mg/dL Low 0.52-1.25 [facility] Comment on above: Performed By: #### H A1C2, ESR, CRP2 #### [address] [place] [address] #### ANA3 #### [address] eGFR OTHER > 90.0 Normal >60 [facility] Comment on above: Result Comment: KDIG O guidelines provide the following GFR categories: Stage GFR(ml/min/1.73 m2) Terms G1 >=90 Normal or high G2 60-89 Mildly decreased* G3a 45-59 Mildly to moderately decreased G3b 30-44 Moderately to severely decreased G4 15-29 Severely decreased G5 <15 Kidney failure *Relative to young adult level. In the absence of evidence of kidney damage, neither GFR category G1 nor G2 fulfill the criteria for CKD. The CKD-EPI equation is validated in individuals 18 years of age and older. Currently the best equation for estimating glomerular filtration rate (GFR) from serum creatinine in children is the Bedside Wisdom equation. It is less accurate in patients with extremes of muscle mass, restriction of dietary protein, ingestion of creatine, extra-renal metabolism of creatinine, or treatment with medications that affect renal tubular creatinine secretion. Performed By: #### H A1C2, ESR, CRP2 #### [address] [place] [address] #### ANA3 #### [address] GFR/1.73 sq M.predicted among blacks MDRD (S/P/Bld) [Vol rate/Area] mL/min/{1.73_m2} Normal >60 [facility] Comment on above: Performed By: #### H A1C2, ESR, CRP2 #### [address] [place] [address] #### ANA3 #### [address] [place] [address] Glucose [Mass/Vol] 131 mg/dL High 70-100 [facility] Comment on above: Performed By: #### H A1C2, ESR, CRP2 #### [facility] [address] [place] [address] #### ANA3 #### [place] [address] [place] [address] Protein [Mass/Vol] 6.6 g/dL Normal 6.3-8.2 [facility] Comment on above: Performed By: #### H A1C2, ESR, CRP2 #### [place] [address] [place] [address] #### ANA3 #### [place] [address] [place] [address] Urea nitrogen [Mass/Vol] 7 mg/dL Low 9-20 [facility] Comment on above: Performed By: #### H A1C2, ESR, CRP2 #### [place] [address] [place] [address] #### ANA3 #### [place] [address] [place] [address] Potassium [Moles/Vol] 3.9 mmol/L Normal 3.5-5.1 [facility] Comment on above: Performed By: #### H A1C2, ESR, CRP2 #### [place] [address] [place] [address] #### ANA3 #### [place] [address] [place] [address] Albumin [Mass/Vol] 3.7 g/dL Normal 3.5-5.0 [facility] Comment on above: Performed By: #### H A1C2, ESR, CRP2 #### [facility] [address] [place] [address] #### ANA3 #### [place] [address] [place] [address] Chloride [Moles/Vol] 101 mmol/L Normal 98-107 [facility] Comment on above: Performed By: #### H A1C2, ESR, CRP2 #### [place] [address] [place] [address] #### ANA3 #### [address] Sodium [Moles/Vol] 136 mmol/L Normal 135-145 [facility] Comment on above: Performed By: #### H A1C2, ESR, CRP2 #### [place] [address] [place] [address] #### ANA3 #### [address] Hemogram w/ Autodiffon 07-02 Abs Baso Cnt 0.0 10*3/uL Normal 0.0-0.2 [facility] Comment on above: Performed By: #### H A1C2, ESR, CRP2 #### [address] [place] [address] #### ANA3 #### [address] Abs Neutrophile Cnt 6.4 10*3/uL Normal 1.8-7.0 [facility] Comment on above: Performed By: #### H A1C2, ESR, CRP2 #### [address] [place] [address] #### ANA3 #### [address] Basophils/100 WBC (Bld) 0.3 % Normal 0.0-2.0 [facility] Comment on above: Performed By: #### H A1C2, ESR, CRP2 #### [address] [place] [address] #### ANA3 #### [address] Eosinophils (Bld) [#/Vol] 0.0 10*3/uL Normal 0.0-0.5 [facility] Comment on above: Performed By: #### H A1C2, ESR, CRP2 #### [address] [place] [address] #### ANA3 #### [address] [place], [place] Eosinophils/100 WBC (Bld) 0.0 % Low 1.0-6.0 [facility] Comment on above: Performed By: #### H A1C2, ESR, CRP2 #### [facility] [address] [place] [address] #### ANA3 #### [place] [address] [place], [place] Erythrocyte distribution width (RBC) [Ratio] 13.4 % Normal 11.5-14.5 [facility] Comment on above: Performed By: #### H A1C2, ESR, CRP2 #### [place] [address] [place] [address] #### ANA3 #### [address] Granulocytes/100 WBC (Bld) 84.3 % High 40.0-80.0 [facility] Comment on above: Performed By: #### H A1C2, ESR, CRP2 #### [place] [address] [place] [address] #### ANA3 #### [address] Hematocrit (Bld) [Volume fraction] 33.0 % Low 35.0-47.0 [facility] Comment on above: Performed By: #### H A1C2, ESR, CRP2 #### [address] [place] [address] #### ANA3 #### [place] [address] [address] [place], [place] Hemoglobin (Bld) [Mass/Vol] 11.0 g/dL Low 11.7-16.0 [facility] Comment on above: Performed By: #### H A1C2, ESR, CRP2 #### [place] [address] [place] [address] #### ANA3 #### [address] Lymphocytes (Bld) [#/Vol] 0.8 10*3/uL Low 1.0-4.3 [facility] Comment on above: Performed By: #### H A1C2, ESR, CRP2 #### [address] [place] [address] #### ANA3 #### [address] Lymphocytes/100 WBC (Bld) 10.9 % Low 20.0-40.0 [facility] Comment on above: Performed By: #### H A1C2, ESR, CRP2 #### [address] [place] [address] #### ANA3 #### [address] MCH (RBC) [Entitic mass] 28.5 pg Normal 26.0-34.0 [facility] Comment on above: Performed By: #### H A1C2, ESR, CRP2 #### [address] [place] [address] #### ANA3 #### [address] MCHC 33.4 % Normal 32.0-36.0 [facility] Comment on above: Performed By: #### H A1C2, ESR, CRP2 #### [address] [place] [address] #### ANA3 #### [address] MCV (RBC) [Entitic vol] 85.4 fL Normal 79.0-98.0 [facility] Comment on above: Performed By: #### H A1C2, ESR, CRP2 #### [address] [place] [address] #### ANA3 #### [address] Monocytes (Bld) [#/Vol] 0.3 10*3/uL Normal 0.0-0.8 [facility] Comment on above: Performed By: #### H A1C2, ESR, CRP2 #### [address] [place] [address] #### ANA3 #### [facility] [address] [place], [place] Monocytes/100 WBC (Bld) 4.5 % Normal 2.0-10.0 [facility] Comment on above: Performed By: #### H A1C2, ESR, CRP2 #### [facility] [address] [place] [address] #### ANA3 #### [facility] [address] [place], [place] Platelet mean volume (Bld) [Entitic vol] 9.2 fL Normal 7.4-10.4 [facility] Comment on above: Performed By: #### H A1C2, ESR, CRP2 #### [facility] [address] [place] [address] #### ANA3 #### [place] [address] [address] [place], [place] Platelets (Bld) [#/Vol] 236 10*3/uL Normal 140-440 [facility] Comment on above: Performed By: #### H A1C2, ESR, CRP2 #### [facility] [address] [place] [address] #### ANA3 #### [place] [address] [address] [place], [place] RBC (Bld) [#/Vol] 3.87 10*6/uL Normal 3.80-5.20 [facility] Comment on above: Performed By: #### H A1C2, ESR, CRP2 #### [facility] [address] [place] [address] #### ANA3 #### [place] [address] [address] [place], [place] WBC (Bld) [#/Vol] 7.6 10*3/uL Normal 3.6-10.7 [facility] Comment on above: Performed By: #### H A1C2, ESR, CRP2 #### [facility] [address] [place] [address] #### ANA3 #### [place] [address] [place] [address] IgG Subclasseson 07-02-2021 IgG Subclass 1 262 mg/dL Normal 240-1118 [facility] Comment on above: Result Comment: REFE RENCE INTERVAL: Immunoglobulin G Subclass 1 The total IgG (mg/dL) can be derived from the sum of the subclass IgG1, IgG2, IgG3, and IgG4 values. However, a confirmatory and more precise total IgG is available by the turbidimetric method of quantitation for total IgG. Refer to test Immunoglobulin G, Serum ([id number]). Access complete set of age- and/or gender-specific reference intervals for this test in the [employer] [facility] Test Directory (adQ). Performed By: #### H EMDJustus CMP3M #### [facility] [address] [place] [address] IgG Subclass 2 196 mg/dL Normal 124-549 [facility] Comment on above: Result Comment: REFE RENCE INTERVAL: Immunoglobulin G Subclass 2 Access complete set of age- and/or gender-specific reference intervals for this test in the [facility] Test Directory (adQ). Performed By: #### H EMDF CMP3M #### [employer] [facility] [address] [place] [address] IgG Subclass 3 60 mg/dL Normal 21-134 [facility] Comment on above: Result Comment: REFE RENCE INTERVAL: Immunoglobulin G Subclass 3 Access complete set of age- and/or gender-specific reference intervals for this test in the [facility] Test Directory (adQ). Performed By: #### H EMDJustus CMP3M #### [facility] [address] [facility] [place] [address] IgG Subclass 4 4 mg/dL Normal 1-123 [facility] Comment on above: Result Comment: REFE RENCE INTERVAL: Immunoglobulin G Subclass 4 Access complete set of age- and/or gender-specific reference intervals for this test in the [facility] Test Directory (adQ). Performed by [employer], [address] [place] [id number] [email or web address], Sofia Anderson MD - Lab. Director Performed By: #### H WU CMP3M #### [employer] [facility] [address] [place] [address] Troponin Ion 07-02-2021 Troponin I.cardiac [Mass/Vol] ng/mL Normal 0.000-0.034 [facility] Comment on above: Result Comment: . Performed By: #### T ROPN #### [facility] [address] [place] [address] Anti-Nuclear Antibodyon 06-20 KENZIE Titer < 1 : 80 Normal <1:80 [facility] Comment on above: Result Comment: Test ed by Indirect Immunofluorescence Assay (IFA). Performed By: #### H A1C2, ESR, CRP2 #### [facility] [address] [place] [address] #### ANA3 #### [email or web address] [facility] [address] [place] [address] COVID and Resp PCR Panelon 0 07-01-2021 SARS-CoV-2 (COVID-19) RNA SOO+probe Ql (Unsp spec) COVID and Resp PCR Panel --> Status: F NEGATIVE: No targets were detected by the [employer] Upper Respiratory Pathogens PCR Panel. _ Expected Result: Not Detected The [employer] Upper Respiratory Pathogens PCR Panel can detect the following targets: SARS-CoV-2, Adenovirus, Coronavirus 229E, Coronavirus HKU1, Coronavirus NL63, Coronavirus OC43, Human Metapneumovirus, Human Rhinovirus/Enterovirus, Influenza A, Influenza B, Parainfluenza Virus 1, Parainfluenza Virus 2, Parainfluenza Virus 3, Parainfluenza Virus 4, Respiratory Syncytial Virus, Bordetella pertussis, Bordetella parapertussis, Chlamydia pneumoniae, Mycoplasma pneumoniae. Method: Real-time PCR. Respiratory Pathogens PCR Panel. _ Expected Result: Not Detected The [employer] Upper Respiratory Pathogens PCR Panel can detect the following targets: SARS-CoV-2, Adenovirus, Coronavirus 229E, Coronavirus HKU1, Coronavirus NL63, Coronavirus OC43, Human Metapneumovirus, Human Rhinovirus/Enterovirus, Influenza A, Influenza B, Parainfluenza Virus 1, Parainfluenza Virus 2, Parainfluenza Virus 3, Parainfluenza Virus 4, Respiratory Syncytial Virus, Bordetella pertussis, Bordetella parapertussis, Chlamydia pneumoniae, Mycoplasma pneumoniae. Method: Real-time PCR. Normal [facility] Comment on above: Performed By: #### H A1C2, ESR, CRP2 #### [facility] [address] [place] [address] #### ANA3 #### [facility] [address] [place] [address] Comp Panel with Mg Reflexon 07-01-2021 ALP [Catalytic activity/Vol] 54 U/L Normal 38-126 [facility] Comment on above: Performed By: #### H WU CMP3M #### [facility] [address] [place] [address] ALT [Catalytic activity/Vol] 15 U/L Normal 0-34 [facility] Comment on above: Result Comment: The ALT test is performed by an updated assay method. Please note that the reference intervals have been changed and are now sex specific. Performed By: #### H WU CMP3M #### [facility] [address] [place] [address] Anion gap [Moles/Vol] 4 mmol/L Normal 3-13 [facility] Comment on above: Performed By: #### Chinyere WASHBURN CMP3M #### [facility] [address] [place] [address] AST [Catalytic activity/Vol] 22 U/L Normal 15-46 [facility] Comment on above: Performed By: #### H WU CMP3M #### [facility] [address] [place] [address] Calcium [Mass/Vol] 8.5 mg/dL Normal 8.4-10.4 [facility] Comment on above: Performed By: #### H WU CMP3M #### [facility] [address] [place] [address] CO2 [Moles/Vol] 31 mmol/L High 22-30 [facility] Comment on above: Performed By: #### Chinyere WASHBURN CMP3M #### [facility] [address] [place] [address] Glucose [Mass/Vol] 85 mg/dL Normal 70-100 [facility] Comment on above: Performed By: #### H WU CMP3M #### [facility] [address] [place] [address] Protein [Mass/Vol] 6.4 g/dL Normal 6.3-8.2 [facility] Comment on above: Performed By: #### H WU CMP3M #### [facility] [address] [place] [address] Urea nitrogen [Mass/Vol] 11 mg/dL Normal 9-20 [facility] Comment on above: Performed By: #### H WU CMP3M #### [facility] [address] [place] [address] Bilirubin [Mass/Vol] 0.4 mg/dL Normal 0.2-1.3 [facility] Comment on above: Performed By: #### H WU CMP3M #### [facility] [address] [place] [address] Creatinine [Mass/Vol] 0.52 mg/dL Normal 0.52-1.25 [facility] Comment on above: Performed By: #### H WU CMP3M #### [facility] [address] [place] [address] eGFR OTHER > 90.0 Normal >60 [facility] Comment on above: Result Comment: KDIG O guidelines provide the following GFR categories: Stage GFR(ml/min/1.73 m2) Terms G1 >=90 Normal or high G2 60-89 Mildly decreased* G3a 45-59 Mildly to moderately decreased G3b 30-44 Moderately to severely decreased G4 15-29 Severely decreased G5 <15 Kidney failure *Relative to young adult level. In the absence of evidence of kidney damage, neither GFR category G1 nor G2 fulfill the criteria for CKD. The CKD-EPI equation is validated in individuals 18 years of age and older. Currently the best equation for estimating glomerular filtration rate (GFR) from serum creatinine in children is the Bedside Wisdom equation. It is less accurate in patients with extremes of muscle mass, restriction of dietary protein, ingestion of creatine, extra-renal metabolism of creatinine, or treatment with medications that affect renal tubular creatinine secretion. Performed By: #### H EMDF CMP3M #### [facility] [address] [place] [address] GFR/1.73 sq M.predicted among blacks MDRD (S/P/Bld) [Vol rate/Area] mL/min/{1.73_m2} Normal >60 [facility] Comment on above: Performed By: #### H EMDJustus CMP3M #### [facility] [address] [place] [address] Albumin [Mass/Vol] 3.5 g/dL Normal 3.5-5.0 [facility] Comment on above: Performed By: #### H EMDJustus CMP3M #### [facility] [address] [place] [address] Chloride [Moles/Vol] 100 mmol/L Normal 98-107 [facility] Comment on above: Performed By: #### H EMDJustus CMP3M #### [facility] [address] [place] [address] Potassium [Moles/Vol] 3.9 mmol/L Normal 3.5-5.1 [facility] Comment on above: Performed By: #### H EMDJustus CMP3M #### [facility] [address] [place] [address] Sodium [Moles/Vol] 135 mmol/L Normal 135-145 [facility] Comment on above: Performed By: #### H EMDJustus CMP3M #### [facility] [address] [place] [address] Hemogram w/ Autodiffon 07-01 Abs Baso Cnt 0.1 10*3/uL Normal 0.0-0.2 [facility] Comment on above: Performed By: #### H EMDJustus CMP3M #### [facility] [address] [place] [address] Abs Neutrophile Cnt 6.9 10*3/uL Normal 1.8-7.0 [facility] Comment on above: Performed By: #### H EMDF CMP3M #### [facility] [address] [place] [address] Basophils/100 WBC (Bld) 0.5 % Normal 0.0-2.0 [facility] Comment on above: Performed By: #### H EMDF, CMP3M #### [facility] [address] [place] [address] Eosinophils (Bld) [#/Vol] 0.3 10*3/uL Normal 0.0-0.5 [facility] Comment on above: Performed By: #### H EMDF, CMP3M #### [facility] [address] [place] [address] Eosinophils/100 WBC (Bld) 2.8 % Normal 1.0-6.0 [facility] Comment on above: Performed By: #### H EMDF, CMP3M #### [facility] [address] [place] [address] Erythrocyte distribution width (RBC) [Ratio] 13.8 % Normal 11.5-14.5 [facility] [employer] Comment on above: Performed By: #### H EMDF, CMP3M #### [facility] [address] [place] [address] Granulocytes/100 WBC (Bld) 74.1 % Normal 40.0-80.0 [facility] Comment on above: Performed By: #### H EMDF, CMP3M #### [facility] [address] [place] [address] Hematocrit (Bld) [Volume fraction] 33.5 % Low 35.0-47.0 [facility] Comment on above: Performed By: #### H EMDF, CMP3M #### [facility] [address] [place] [address] Hemoglobin (Bld) [Mass/Vol] 11.1 g/dL Low 11.7-16.0 [facility] Comment on above: Performed By: #### H EMDF, CMP3M #### [facility] [address] [place] [address] Lymphocytes (Bld) [#/Vol] 1.6 10*3/uL Normal 1.0-4.3 [facility] Comment on above: Performed By: #### H EMDF, CMP3M #### [facility] [address] [place] [address] Lymphocytes/100 WBC (Bld) 16.8 % Low 20.0-40.0 [facility] Comment on above: Performed By: #### Chinyere WASHBURN CMP3M #### [facility] [address] [place] [address] MCH (RBC) [Entitic mass] 28.7 pg Normal 26.0-34.0 [facility] Comment on above: Performed By: #### H WU CMP3M #### [facility] [address] [place] [address] MCHC 33.3 % Normal 32.0-36.0 [facility] Comment on above: Performed By: #### H WU CMP3M #### [facility] [address] [place] [address] MCV (RBC) [Entitic vol] 86.3 fL Normal 79.0-98.0 [facility] Comment on above: Performed By: #### Chinyere WASHBURN CMP3M #### [facility] [address] [place] [address] Monocytes (Bld) [#/Vol] 0.5 10*3/uL Normal 0.0-0.8 [facility] [employer] Comment on above: Performed By: #### Chinyere WASHBURN CMP3M #### [facility] [address] [place] [address] Monocytes/100 WBC (Bld) 5.8 % Normal 2.0-10.0 [facility] Comment on above: Performed By: #### Chinyere WASHBURN CMP3M #### [facility] [address] [place] [address] Platelet mean volume (Bld) [Entitic vol] 8.6 fL Normal 7.4-10.4 [facility] Comment on above: Performed By: #### Chinyere WASHBURN CMP3M #### [facility] [address] [place] [address] Platelets (Bld) [#/Vol] 207 10*3/uL Normal 140-440 [facility] [employer] Comment on above: Performed By: #### Chinyere WASHBURN CMP3M #### [facility] [address] [place] [address] RBC (Bld) [#/Vol] 3.88 10*6/uL Normal 3.80-5.20 [facility] Comment on above: Performed By: #### Chinyere WASHBURN CMP3M #### [facility] [address] [place] [address] WBC (Bld) [#/Vol] 9.3 10*3/uL Normal 3.6-10.7 [facility] Comment on above: Performed By: #### Chinyere WASHBURN CMP3M #### [facility] [address] [place] [address] Add on test from HISon 06-30 Add on test from HIS Accepted Normal [facility] Comment on above: Result Comment: Spec imen available & acceptable for analysis. Performed By: #### Chinyere WASHBURN CMP3M #### [facility] [address] [place] [address] C-Reactive Proteinon 022 CRP [Mass/Vol] mg/L High 0.0-9.9 [facility] Comment on above: Result Comment: . Performed By: #### H A1C2, ESR, CRP2 #### [facility] [address] [place] [address] #### ANA3 #### [facility] [address] [place] [address] Comp Panel with Mg Reflexon 06-30-2021 ALP [Catalytic activity/Vol] 53 U/L Normal 38-126 [facility] Comment on above: Performed By: #### Chinyere WASHBURN CMP3M #### [facility] [address] [place] [address] ALT [Catalytic activity/Vol] 16 U/L Normal 0-34 [facility] Comment on above: Result Comment: The ALT test is performed by an updated assay method. Please note that the reference intervals have been changed and are now sex specific. Performed By: #### Chinyere WASHBURN CMP3M #### [facility] [address] [place] [address] Calcium [Mass/Vol] 8.3 mg/dL Low 8.4-10.4 [facility] Comment on above: Performed By: #### H WU, CMP3M #### [facility] [address] [place] [address] Glucose [Mass/Vol] 79 mg/dL Normal 70-100 [facility] Comment on above: Performed By: #### Chinyere WASHBURN CMP3M #### [facility] [address] [place] [address] Urea nitrogen [Mass/Vol] 10 mg/dL Normal 9-20 [facility] Comment on above: Performed By: #### Chinyere WASHBURN CMP3M #### [facility] [address] [place] [address] Anion gap [Moles/Vol] 4 mmol/L Normal 3-13 [facility] Comment on above: Performed By: #### Chinyere WASHBURN CMP3M #### [facility] [address] [place] [address] AST [Catalytic activity/Vol] 22 U/L Normal 15-46 [facility] Comment on above: Performed By: #### Chinyere WASHBURN CMP3M #### [facility] [address] [place] [address] Bilirubin [Mass/Vol] 0.7 mg/dL Normal 0.2-1.3 [facility] Comment on above: Performed By: #### Chinyere WASHBURN CMP3M #### [facility] [address] [place] [address] CO2 [Moles/Vol] 26 mmol/L Normal 22-30 [facility] Comment on above: Performed By: #### Chinyere WASHBURN CMP3M #### [facility] [address] [place] [address] Creatinine [Mass/Vol] 0.48 mg/dL Low 0.52-1.25 [facility] Comment on above: Performed By: #### Chinyere WASHBURN CMP3M #### [facility] [address] [place] [address] eGFR OTHER > 90.0 Normal >60 [facility] Comment on above: Result Comment: KDIG O guidelines provide the following GFR categories: Stage GFR(ml/min/1.73 m2) Terms G1 >=90 Normal or high G2 60-89 Mildly decreased* G3a 45-59 Mildly to moderately decreased G3b 30-44 Moderately to severely decreased G4 15-29 Severely decreased G5 <15 Kidney failure *Relative to young adult level. In the absence of evidence of kidney damage, neither GFR category G1 nor G2 fulfill the criteria for CKD. The CKD-EPI equation is validated in individuals 18 years of age and older. Currently the best equation for estimating glomerular filtration rate (GFR) from serum creatinine in children is the Bedside Wisdom equation. It is less accurate in patients with extremes of muscle mass, restriction of dietary protein, ingestion of creatine, extra-renal metabolism of creatinine, or treatment with medications that affect renal tubular creatinine secretion. Performed By: #### Chinyere WASHBURN CMP3M #### [facility] [address] [place] [address] GFR/1.73 sq M.predicted among blacks MDRD (S/P/Bld) [Vol rate/Area] mL/min/{1.73_m2} Normal >60 [facility] Comment on above: Performed By: #### Chinyere WASHBURN CMP3M #### [facility] [address] [place] [address] Protein [Mass/Vol] 6.6 g/dL Normal 6.3-8.2 [facility] Comment on above: Performed By: #### Chinyere WASHBURN CMP3M #### [facility] [address] [place] [address] Potassium [Moles/Vol] 4.0 mmol/L Normal 3.5-5.1 [facility] Comment on above: Performed By: #### Chinyere WASHBURN CMP3M #### [facility] [address] [place] [address] Sodium [Moles/Vol] 134 mmol/L Low 135-145 [facility] Comment on above: Performed By: #### Chinyere WASHBURN CMP3M #### [facility] [address] [place] [address] Albumin [Mass/Vol] 3.7 g/dL Normal 3.5-5.0 [facility] Comment on above: Performed By: #### Chinyere WASHBURN CMP3M #### [facility] [address] [place] [address] Chloride [Moles/Vol] 103 mmol/L Normal 98-107 [facility] Comment on above: Performed By: #### H WU CMP3M #### [facility] [address] [place] [address] Hemoglobin A1Con 06-30-2021 Glucose [Mass/Vol] 91 mg/dL Normal [facility] Comment on above: Performed By: #### H A1C2, ESR, CRP2 #### [facility] [address] [place] [address] #### ANA3 #### [address] [address] HbA1c (Bld) [Mass fraction] 4.8 % Normal [facility] Comment on above: Result Comment: Norm al less than 5.7% Prediabetes 5.7% to 6.4% Diabetes 6.5% or higher --HgbA1C levels may not be accurate in patients who have renal disease, received recent blood transfusions, are anemic, or who have dyshemoglobinemia. Performed By: #### H A1C2, ESR, CRP2 #### [facility] [address] [place] [address] #### ANA3 #### [address] [address] Hemogram w/ Autodiffon 06-30 Abs Baso Cnt 0.0 10*3/uL Normal 0.0-0.2 [facility] Comment on above: Performed By: #### H WU CMP3M #### [facility] [address] [place] [address] Abs Neutrophile Cnt 9.9 10*3/uL High 1.8-7.0 [facility] Comment on above: Performed By: #### H WU CMP3M #### [facility] [address] [place] [address] Basophils/100 WBC (Bld) 0.2 % Normal 0.0-2.0 [facility] Comment on above: Performed By: #### H WU CMP3M #### [facility] [address] [place] [address] Eosinophils (Bld) [#/Vol] 0.1 10*3/uL Normal 0.0-0.5 [facility] Comment on above: Performed By: #### Chinyere WASHBURN CMP3M #### [facility] [address] [place] [address] Eosinophils/100 WBC (Bld) 1.0 % Normal 1.0-6.0 [facility] Comment on above: Performed By: #### Chinyere WASHBURN CMP3M #### [facility] [address] [place] [address] Erythrocyte distribution width (RBC) [Ratio] 13.8 % Normal 11.5-14.5 [facility] Comment on above: Performed By: #### Chinyere WASHBURN CMP3M #### [facility] [address] [place] [address] Granulocytes/100 WBC (Bld) 83.2 % High 40.0-80.0 [facility] Comment on above: Performed By: #### Chinyere WASHBURN CMP3M #### [facility] [address] [place] [address] Hematocrit (Bld) [Volume fraction] 35.0 % Normal 35.0-47.0 [facility] Comment on above: Performed By: #### Chinyere WASHBURN CMP3M #### [facility] [address] [place] [address] Hemoglobin (Bld) [Mass/Vol] 11.6 g/dL Low 11.7-16.0 [facility] Comment on above: Performed By: #### Chinyere WASHBURN CMP3M #### [facility] [address] [place] [address] Lymphocytes (Bld) [#/Vol] 1.0 10*3/uL Normal 1.0-4.3 [facility] Comment on above: Performed By: #### Chinyere WASHBURN CMP3M #### [facility] [address] [place] [address] Lymphocytes/100 WBC (Bld) 8.3 % Low 20.0-40.0 [facility] Comment on above: Performed By: #### Chinyere WASHBURN CMP3M #### [facility] [address] [place] [address] MCH (RBC) [Entitic mass] 28.6 pg Normal 26.0-34.0 [facility] Comment on above: Performed By: #### Chinyere WASHBURN CMP3M #### [facility] [address] [place] [address] MCHC 33.2 % Normal 32.0-36.0 [facility] Comment on above: Performed By: #### Chinyere WASHBURN CMP3M #### [facility] [address] [place] [address] MCV (RBC) [Entitic vol] 86.0 fL Normal 79.0-98.0 [facility] Comment on above: Performed By: #### H WU CMP3M #### [facility] [address] [place] [address] Monocytes (Bld) [#/Vol] 0.9 10*3/uL High 0.0-0.8 [facility] Comment on above: Performed By: #### H WU CMP3M #### [facility] [address] [place] [address] Monocytes/100 WBC (Bld) 7.3 % Normal 2.0-10.0 [facility] Comment on above: Performed By: #### Chinyere WASHBURN CMP3M #### [facility] [address] [place] [address] Platelet mean volume (Bld) [Entitic vol] 8.6 fL Normal 7.4-10.4 [facility] Comment on above: Performed By: #### Chinyere WASHBURN CMP3M #### [facility] [address] [place] [address] Platelets (Bld) [#/Vol] 185 10*3/uL Normal 140-440 [facility] Comment on above: Performed By: #### Chinyere WASHBURN CMP3M #### [facility] [address] [place] [address] RBC (Bld) [#/Vol] 4.07 10*6/uL Normal 3.80-5.20 [facility] Comment on above: Performed By: #### H WU CMP3M #### [facility] [address] [place] [address] WBC (Bld) [#/Vol] 11.9 10*3/uL High 3.6-10.7 [facility] Comment on above: Performed By: #### H LBU WASHBURN3M #### [facility] [address] [place] [address] IgG,Bloodon 06-30-2021 IgG,Blood 539.1 mg/dL Low 700.0-1600. 0 [facility] Comment on above: Performed By: #### H BLU WASHBURN3M #### [facility] [address] [place] [address] Lipaseon 06-30-2021 Lipase [Catalytic activity/Vol] 170 U/L Normal 23-300 [facility] Comment on above: Performed By: #### H BLU WASHBURN3M #### [facility] [address] [place] [address] Sed Rateon 06-30-2021 Sed Rate 82 mm/h High 0-20 [facility] Comment on above: Performed By: #### H A1C2, ESR, CRP2 #### [facility] [address] [place] [address] #### ANA3 #### [address] Add on test from HISon 06-29 Add on test from HIS Accepted Normal [facility] Comment on above: Result Comment: Spec imen available & acceptable for analysis. Performed By: #### H BLU WASHBURN3M #### [facility] [address] [place] [address] Comp Panel with Mg Reflexon 06-29-2021 Calcium [Mass/Vol] 8.8 mg/dL Normal 8.4-10.4 [facility] Comment on above: Performed By: #### H A1C2, ESR, CRP2 #### [facility] [address] [place] [address] #### ANA3 #### [address] ALP [Catalytic activity/Vol] 50 U/L Normal 38-126 [facility] Comment on above: Performed By: #### H A1C2, ESR, CRP2 #### [facility] [address] [place] [address] #### ANA3 #### [place] [address] [address] [place], [place] ALT [Catalytic activity/Vol] 18 U/L Normal 0-34 [facility] Comment on above: Result Comment: The ALT test is performed by an updated assay method. Please note that the reference intervals have been changed and are now sex specific. Performed By: #### H A1C2, ESR, CRP2 #### [place] [address] [place] [address] #### ANA3 #### [place] [address] [address] [place], [place] Anion gap [Moles/Vol] 5 mmol/L Normal 3-13 [facility] Comment on above: Performed By: #### H A1C2, ESR, CRP2 #### [address] [place] [address] #### ANA3 #### [place] [address] [address] [place], [place] AST [Catalytic activity/Vol] 22 U/L Normal 15-46 [facility] Comment on above: Performed By: #### H A1C2, ESR, CRP2 #### [address] [place] [place] [address] #### ANA3 #### [place] [address] [address] [place], [place] Bilirubin [Mass/Vol] 1.0 mg/dL Normal 0.2-1.3 [facility] Comment on above: Performed By: #### H A1C2, ESR, CRP2 #### [place] [address] [place] [address] #### ANA3 #### [place] [address] [address] [place], [place] CO2 [Moles/Vol] 26 mmol/L Normal 22-30 [facility] Comment on above: Performed By: #### H A1C2, ESR, CRP2 #### [address] [place] [place] [address] #### ANA3 #### [address] Creatinine [Mass/Vol] 0.44 mg/dL Low 0.52-1.25 [facility] Comment on above: Performed By: #### H A1C2, ESR, CRP2 #### [address] [place] [address] #### ANA3 #### [address] eGFR OTHER > 90.0 Normal >60 [facility] Comment on above: Result Comment: KDIG O guidelines provide the following GFR categories: Stage GFR(ml/min/1.73 m2) Terms G1 >=90 Normal or high G2 60-89 Mildly decreased* G3a 45-59 Mildly to moderately decreased G3b 30-44 Moderately to severely decreased G4 15-29 Severely decreased G5 <15 Kidney failure *Relative to young adult level. In the absence of evidence of kidney damage, neither GFR category G1 nor G2 fulfill the criteria for CKD. The CKD-EPI equation is validated in individuals 18 years of age and older. Currently the best equation for estimating glomerular filtration rate (GFR) from serum creatinine in children is the Bedside Wisdom equation. It is less accurate in patients with extremes of muscle mass, restriction of dietary protein, ingestion of creatine, extra-renal metabolism of creatinine, or treatment with medications that affect renal tubular creatinine secretion. Performed By: #### H A1C2, ESR, CRP2 #### [address] [place] [address] #### ANA3 #### [address] GFR/1.73 sq M.predicted among blacks MDRD (S/P/Bld) [Vol rate/Area] mL/min/{1.73_m2} Normal >60 [facility] Comment on above: Performed By: #### H A1C2, ESR, CRP2 #### [address] [place] [address] #### ANA3 #### [address] [address] Glucose [Mass/Vol] 80 mg/dL Normal 70-100 [facility] Comment on above: Performed By: #### H A1C2, ESR, CRP2 #### [facility] [address] [place] [address] #### ANA3 #### [place] [address] [address] [place] [address] Protein [Mass/Vol] 6.6 g/dL Normal 6.3-8.2 [facility] Comment on above: Performed By: #### H A1C2, ESR, CRP2 #### [place] [address] [place] [address] #### ANA3 #### [address] [address] [place] [address] Urea nitrogen [Mass/Vol] 10 mg/dL Normal 9-20 [facility] Comment on above: Performed By: #### H A1C2, ESR, CRP2 #### [place] [address] [place] [address] #### ANA3 #### [address] [address] [place] [address] Albumin [Mass/Vol] 3.8 g/dL Normal 3.5-5.0 [facility] Comment on above: Performed By: #### H A1C2, ESR, CRP2 #### [place] [address] [place] [address] #### ANA3 #### [address] [address] [place] [address] Chloride [Moles/Vol] 100 mmol/L Normal 98-107 [facility] Comment on above: Performed By: #### H A1C2, ESR, CRP2 #### [facility] [address] [place] [address] #### ANA3 #### [address] [address] [place] [address] Potassium [Moles/Vol] 4.0 mmol/L Normal 3.5-5.1 [facility] Comment on above: Performed By: #### H A1C2, ESR, CRP2 #### [place] [address] [place] [address] #### ANA3 #### [address] [place], [place] Sodium [Moles/Vol] 131 mmol/L Low 135-145 [facility] Comment on above: Performed By: #### H A1C2, ESR, CRP2 #### [place] [address] [place] [address] #### ANA3 #### [address] Hemogram w/ Autodiffon 06-29 Abs Baso Cnt 0.0 10*3/uL Normal 0.0-0.2 [facility] Comment on above: Performed By: #### H A1C2, ESR, CRP2 #### [address] [place] [address] #### ANA3 #### [address] Abs Neutrophile Cnt 15.5 10*3/uL High 1.8-7.0 [facility] Comment on above: Performed By: #### H A1C2, ESR, CRP2 #### [address] [place] [address] #### ANA3 #### [address] Basophils/100 WBC (Bld) 0.1 % Normal 0.0-2.0 [facility] Comment on above: Performed By: #### H A1C2, ESR, CRP2 #### [address] [place] [address] #### ANA3 #### [address] Eosinophils (Bld) [#/Vol] 0.0 10*3/uL Normal 0.0-0.5 [facility] Comment on above: Performed By: #### H A1C2, ESR, CRP2 #### [address] [place] [address] #### ANA3 #### [address] Eosinophils/100 WBC (Bld) 0.1 % Low 1.0-6.0 [facility] Comment on above: Performed By: #### H A1C2, ESR, CRP2 #### [facility] [address] [place] [address] #### ANA3 #### [address] [address] [place], [place] Erythrocyte distribution width (RBC) [Ratio] 13.7 % Normal 11.5-14.5 [facility] Comment on above: Performed By: #### H A1C2, ESR, CRP2 #### [facility] [address] [place] [address] #### ANA3 #### [address] [address] [place], [place] Granulocytes/100 WBC (Bld) 87.6 % High 40.0-80.0 [facility] Comment on above: Performed By: #### H A1C2, ESR, CRP2 #### [facility] [address] [place] [address] #### ANA3 #### [facility] [place] [address] [place], [place] Hematocrit (Bld) [Volume fraction] 38.6 % Normal 35.0-47.0 [facility] Comment on above: Performed By: #### H A1C2, ESR, CRP2 #### [facility] [place] [address] [place] [address] #### ANA3 #### [address] [address] [place], [place] Hemoglobin (Bld) [Mass/Vol] 12.6 g/dL Normal 11.7-16.0 [facility] Comment on above: Performed By: #### H A1C2, ESR, CRP2 #### [facility] [address] [place] [address] #### ANA3 #### [address] Lymphocytes (Bld) [#/Vol] 1.2 10*3/uL Normal 1.0-4.3 [facility] Comment on above: Performed By: #### H A1C2, ESR, CRP2 #### [facility] [address] [place] [address] #### ANA3 #### [address] Lymphocytes/100 WBC (Bld) 7.0 % Low 20.0-40.0 [facility] Comment on above: Performed By: #### H A1C2, ESR, CRP2 #### [facility] [address] [place] [address] #### ANA3 #### [address] MCH (RBC) [Entitic mass] 27.9 pg Normal 26.0-34.0 [facility] Comment on above: Performed By: #### H A1C2, ESR, CRP2 #### [place] [address] [place] [address] #### ANA3 #### [address] MCHC 32.7 % Normal 32.0-36.0 [facility] Comment on above: Performed By: #### H A1C2, ESR, CRP2 #### [place] [address] [place] [address] #### ANA3 #### [address] MCV (RBC) [Entitic vol] 85.4 fL Normal 79.0-98.0 [facility] Comment on above: Performed By: #### H A1C2, ESR, CRP2 #### [place] [place] [address] #### ANA3 #### [address] Monocytes (Bld) [#/Vol] 0.9 10*3/uL High 0.0-0.8 [facility] Comment on above: Performed By: #### H A1C2, ESR, CRP2 #### [place] [address] [place] [address] #### ANA3 #### [address] [place], [place] Monocytes/100 WBC (Bld) 5.2 % Normal 2.0-10.0 [facility] Comment on above: Performed By: #### H A1C2, ESR, CRP2 #### [facility] [address] [place] [address] #### ANA3 #### [address] [place], [place] Platelet mean volume (Bld) [Entitic vol] 8.4 fL Normal 7.4-10.4 [facility] Comment on above: Performed By: #### H A1C2, ESR, CRP2 #### [facility] [address] [place] [address] #### ANA3 #### [address] [place], [place] Platelets (Bld) [#/Vol] 231 10*3/uL Normal 140-440 [facility] Comment on above: Performed By: #### H A1C2, ESR, CRP2 #### [facility] [address] [place] [address] #### ANA3 #### [address] [place], [place] RBC (Bld) [#/Vol] 4.52 10*6/uL Normal 3.80-5.20 [facility] Comment on above: Performed By: #### H A1C2, ESR, CRP2 #### [facility] [address] [place] [address] #### ANA3 #### [address] [place], [place] WBC (Bld) [#/Vol] 17.7 10*3/uL High 3.6-10.7 [facility] Comment on above: Performed By: #### H A1C2, ESR, CRP2 #### [facility] [address] [place] [address] #### ANA3 #### [address] [address] [place], [place] MRI Abdomen w/o Contraston 0 - MRI Abdomen w/o Contrast Patient Name: CASIMIRO LIU Magnetic Resonance Imaging ACCESSION EXAM DATE/TIME PROCEDURE ORDERING PROVIDER [id number] 06/29/2021 16:57 EST MRI Abdomen w/o Contrast [id number] -[place] CPT code 74415 Reason For Exam (MRI Abdomen w/o Contrast) pancreatitis Report EXAMINATION: MRI of the abdomen without contrast. MRCP. COMPARISON: None. REASON FOR STUDY: Pancreatitis. TECHNIQUE: Axial and coronal spin and gradient-echo T1- and T2-weighted as well as diffusion-weighted images were obtained Thick-slab coronal breath-hold T2-weighted images were obtained. Rotational MIP MRCP was rendered from the source images. FINDINGS: Pancreas is diffusely enlarged, uniform in signal and presents a sausagelike appearance. Pancreatic duct is not dilated. Inflammatory changes and streaky effusions are observed in the anterior and left lateral pararenal spaces, extending into the peritoneal cavity. Solid and hollow viscus organs otherwise appear normal. Biliary tree is not dilated.; There is no filling defect within the extrahepatic bile ducts. Gallbladder is not visualized indicating prior cholecystectomy. CONCLUSIONS: 1. 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 2. No evidence of cholecystolithiasis or biliary obstruction. Report Dictated on Final Dictating Physician: MD BROOKS B NELSON Signed Date and Time: 06/29/2021 7:24 pm Signed by: MD BROOKS B NELSON Transcribed Date and Time: 06/29/2021 7:25 Normal [facility] Triglycerideon 06-29-2021 Triglyceride [Mass/Vol] 57 mg/dL Normal <150 [facility] Comment on above: Performed By: #### H A1C2, ESR, CRP2 #### [facility] [address] [place] [address] #### ANA3 #### [facility] [address] [place] [address] US Abdomen Limitedon 022 US Abdomen Limited Patient Name: CASIMIRO MCCARTY Ultrasound ACCESSION EXAM DATE/TIME PROCEDURE ORDERING PROVIDER [id number] 06/29/2021 06:50 EST US Abdomen Limited [id number] [facility] CPT code 29174 Reason For Exam (US Abdomen Limited) Abdominal pain Report Exam type: Ultrasound abdomen RUQ CLINICAL HISTORY:Abdominal pain COMPARISON: CTA chest 06/28/2021, CT abdomen pelvis 03/06/2019 Technique: Grayscale sonographic images were obtained of the right upper quadrant. Color Doppler was utilized. FINDINGS: Portions of the exam are limited by bowel gas Liver: Liver parenchyma somewhat heterogeneous with some areas of increased echogenicity without discrete lesion identified on submitted images Biliary system: There may be some slight intrahepatic biliary ductal dilatation. Common bile duct is dilated measuring at least 12 mm. Gallbladder: Status post cholecystectomy. Pancreas: Partially obscured by bowel gas. Heterogeneous somewhat hypoechoic appearance of the pancreatic body/tail. Right Kidney: The right kidney measures 11.5 cm in length. Limited survey of the right kidney demonstrates no obstructive uropathy. Cortical thickness and echotexture are likely within normal limits. Additional findings: Survey of the spleen demonstrate splenomegaly with the spleen measuring at least 14.3 cm. No ascites. IMPRESSION: 1. Heterogeneous somewhat hypoechoic appearance of the pancreatic body and tail. Findings may be seen in the setting of pancreatitis. 2. Suggestion of mild hepatic steatosis. 3. Dilatation of the common bile duct and suspicion of slight intrahepatic biliary ductal dilatation. Though some component may be related to prior cholecystectomy, degree of dilatation is more than expected. If clinically warranted consider further evaluation with a or MRCP. 4. Splenomegaly. Ultrasound Report Report Dictated on Final Dictating Physician: MD EDMONDSON VLADIMIR Signed Date and Time: 06/29/2021 8:53 am Signed by: MD EDMONDSON VLADIMIR Transcribed Date and Time: 06/29/2021 8:55 Normal [facility] Add on test from HISon 06-28 Add on test from HIS Accepted Normal [email or web address] [facility] Comment on above: Result Comment: Spec imen available & acceptable for analysis. Performed By: #### H EMDJustus, CMP3M #### [facility] [address] [place] [address] Basic Metabolic Panelon Calcium [Mass/Vol] 9.2 mg/dL Normal 8.4-10.4 [facility] Comment on above: Performed By: #### H A1C2, ESR, CRP2 #### [facility] [address] [place] [address] #### ANA3 #### [address] [address] [place], [place] Glucose [Mass/Vol] 96 mg/dL Normal 70-100 [facility] Comment on above: Performed By: #### H A1C2, ESR, CRP2 #### [place] [address] [place] [address] #### ANA3 #### [address] [address] [place], [place] Urea nitrogen [Mass/Vol] 12 mg/dL Normal 9-20 [facility] Comment on above: Performed By: #### H A1C2, ESR, CRP2 #### [place] [address] [place] [address] #### ANA3 #### [address] [place], [place] Anion gap [Moles/Vol] 6 mmol/L Normal 3-13 [facility] Comment on above: Performed By: #### H A1C2, ESR, CRP2 #### [place] [address] [place] [address] #### ANA3 #### [address] [place], [place] CO2 [Moles/Vol] 30 mmol/L Normal 22-30 [facility] Comment on above: Performed By: #### H A1C2, ESR, CRP2 #### [place] [address] [place] [address] #### ANA3 #### [address] [place], [place] Creatinine [Mass/Vol] 0.60 mg/dL Normal 0.52-1.25 [facility] Comment on above: Performed By: #### H A1C2, ESR, CRP2 #### [place] [address] [place] [address] #### ANA3 #### [facility] [address] [place] [address] eGFR OTHER > 90.0 Normal >60 [facility] Comment on above: Result Comment: KDIG O guidelines provide the following GFR categories: Stage GFR(ml/min/1.73 m2) Terms G1 >=90 Normal or high G2 60-89 Mildly decreased* G3a 45-59 Mildly to moderately decreased G3b 30-44 Moderately to severely decreased G4 15-29 Severely decreased G5 <15 Kidney failure *Relative to young adult level. In the absence of evidence of kidney damage, neither GFR category G1 nor G2 fulfill the criteria for CKD. The CKD-EPI equation is validated in individuals 18 years of age and older. Currently the best equation for estimating glomerular filtration rate (GFR) from serum creatinine in children is the Bedside Wisdom equation. It is less accurate in patients with extremes of muscle mass, restriction of dietary protein, ingestion of creatine, extra-renal metabolism of creatinine, or treatment with medications that affect renal tubular creatinine secretion. Performed By: #### H A1C2, ESR, CRP2 #### [facility] [address] [place] [address] #### ANA3 #### [address] GFR/1.73 sq M.predicted among blacks MDRD (S/P/Bld) [Vol rate/Area] mL/min/{1.73_m2} Normal >60 [facility] Comment on above: Performed By: #### H A1C2, ESR, CRP2 #### [facility] [address] [place] [address] #### ANA3 #### [address] [address] Potassium [Moles/Vol] 4.1 mmol/L Normal 3.5-5.1 [facility] Comment on above: Performed By: #### H A1C2, ESR, CRP2 #### [facility] [address] [place] [address] #### ANA3 #### [address] [address] Sodium [Moles/Vol] 137 mmol/L Normal 135-145 [facility] Comment on above: Performed By: #### H A1C2, ESR, CRP2 #### [facility] [address] [place] [address] #### ANA3 #### [facility] [address] [place] [address] Chloride [Moles/Vol] 102 mmol/L Normal 98-107 [facility] Comment on above: Performed By: #### H A1C2, ESR, CRP2 #### [facility] [address] [place] [address] #### ANA3 #### [facility] [address] [place] [address] CR Chest Portableon 06-28-19 CR Chest Portable Patient Name: CASIMIRO MCCARTY Diagnostic Radiology ACCESSION EXAM DATE/TIME PROCEDURE ORDERING PROVIDER [id number] 06/28/2021 09:51 EST CR Chest Portable DILIA GLOVER AMY L CPT code 82531 Reason For Exam (CR Chest Portable) Chest Pain - Covid Report Portable semiupright AP view of the chest, 06/28/2021. Reason for examination: Chest pain. COMPARISON: None available. FINDINGS: Cardiac size is within normal limits. Pulmonary vasculature is normal. The right lung is clear. There is scarring or atelectasis in the left lower lung. Otherwise, the left lung appears clear. No pleural effusion or pneumothorax is noted. IMPRESSION: Scarring or atelectasis in the left lower lung. Report Dictated on Final Dictating Physician: MD LEA JOE M Signed Date and Time: 06/28/2021 10:28 am Signed by: MD LEA JOE M Transcribed Date and Time: 06/28/2021 10:29 Normal [facility] CTA Chest w/ + w/o Contrasto n 06-28-2021 CTA Chest w/ + w/o Contrast Patient Name: CASIMIRO LIU Computed Tomography ACCESSION EXAM DATE/TIME PROCEDURE ORDERING PROVIDER [id number] 06/28/2021 14:17 EST CTA Chest w/ + w/o DILIA GLOVER, PANCHO Rm Contrast CPT code 54155 Q9967 Reason For Exam (CTA Chest w/ + w/o Contrast) Chest Pain - COVID+ Report CTA of the chest, 06/28/2021. Reason for examination: Chest pain. COMPARISON: None available. TECHNIQUE: 1 mm axial images were obtained through the chest following intravenous administration of 75 mL of Isovue 370. Coronal and sagittal reconstructions were created and reviewed. 3-dimensional postprocessing was performed by myself on an independent workstation at the time of interpretation with saved volume rendered images. FINDINGS: Pulmonary vasculature: No pulmonary thromboembolic disease is detected. Contrast bolus is adequate. Lungs/pleura: There is relatively mild scarring or atelectasis in the dependent portions of the lungs and in the lower lung kimball. There are a few punctate nodular densities which are nonspecific, but considered likely benign, including a probable granuloma in the left upper lobe. There is no pleural effusion or pneumothorax. Mediastinum: Cardiac size is at the upper limits of normal. The thoracic aorta is normal in caliber. No mediastinal or hilar lymphadenopathy is noted. Chest wall/soft tissues: No axillary or supraclavicular lymphadenopathy is noted. Upper abdomen: Limited imaging through the upper abdomen demonstrates inflammatory changes which appear to be associated with the pancreas. These findings are incompletely visualized. Possibility of pancreatitis is raised. The gallbladder has been removed. IMPRESSION: No pulmonary thromboembolic disease detected. Other findings as described including possible pancreatitis. Computed Tomography Report Report Dictated on Final Dictating Physician: MD LEA JOE M Signed Date and Time: 06/28/2021 2:33 pm Signed by: MD LEA JOE M Transcribed Date and Time: 06/28/2021 2:34 Normal [facility] D-Dimer, Innovanceon 022 D-Dimer, Innovance 0.67 mg/L High <0.19-0.50 [facility] Comment on above: Result Comment: Inno branch D-Dimer values of <0.50 mg/L FEU can be used in combination with a pre-test probability model (e.g. Well's) to exclude pulmonary embolism (PE) disease, as well as an aid in the diagnosis of deep vein thrombosis (DVT). Performed By: #### H A1C2, ESR, CRP2 #### [facility] [address] [place] [address] #### ANA3 #### [place] [address] [facility] [place] [address] ED Provider Noteon 2 ED Provider Note Emergency Department Encounter [facility] [place] [facility] Patient: Casimiro Liu : 1980 Date of Evaluation: 06/28/2021 ED Supervising Physician: Silvia Esqueda MD I independently examined and evaluated Casimiro Liu. This will serve as my Supervisory note and shared attestation. I did perform a substantive portion of the visit including all aspects of the Medical Decision Making. I wore appropriate PPE for the entirety of this encounter. In brief, Casimiro Liu is a 40 y.o. female that presents to the emergency department complaining of left upper quadrant abdominal pain that seems to radiate up into her left chest. Pain is sharp. On physical exam LUQ ttp and splinting when trying to breath because of pain but otherwise well appearing and not in respiratory distress. Plan - cbc, bmp, hfp, lipase, ekg, trop, d dimer, cxr. All EKG interpretations are in epiphany. 2:05 PM D dimer elevated but also significant pancreatitis noted which was unexpected based on exam. Will start IVF, follow up ct pe, and admit. Critical Care note: This patient was unstable and required constant supervision by me for 23 minutes during their visit. The patient's condition requiring intervention included: acute pancreatitits. The interventions included: morphine, Zofran, fluid resuscitation. This critical care time did not include time for procedures or time spent by the physicians dental ceramist assistant if they were caring for this patient. All diagnostic, treatment, and disposition decisions were made by myself in conjunction with the SARITA/Resident. For all further details of the patient's emergency department visit, please see their documentation. Comment: Please note this report has been produced using speech recognition software and may contain errors related to that system including errors in grammar, punctuation, and spelling, as well as words and phrases that may be inappropriate. If there are any questions or concerns please feel free to contact the dictating provider for clarification. Silvia Esqueda MD [employer] Silvia Esqueda MD 06/28/21 1406 Normal [facility] ED [facility] e[facility]Y dEPARTMENT eNCOUnter Pt Name: Casimiro Liu Birthdate 1980 Date of evaluation: 06/28/2021 Provider: NOEL WOOD CHIEF COMPLAINT Chief Complaint Patient presents with ? Abdominal Pain ? Positive For Covid-19 HISTORY OF PRESENT ILLNESS (Location/Symptom, Timing/Onset,Context/Setti ng, Quality, Duration, Modifying Factors, Severity) Note limiting factors. HPI I did don appropriate PPE during all of my interactions with this patient. This patient was seen in conjunction with Dr. Esqueda who also interviewed and evaluated the patient at bedside. Casimiro Liu is a 40 y.o. female who presents to the emergency department after testing positive for COVID-19 yesterday with a home test. For several days the patient has been having persistent nausea, vomiting, and diarrhea. She has now developed a left upper quadrant abdominal pain that radiates up under the left breast. She states it hurts to take in a big deep breath. The last time she vomited was around 6 AM. She feels very dehydrated. She states she occasionally has some very mild shortness of breath. She has had no fever at home. She has had minimal cough. Nursing Notes were reviewed. REVIEW OF SYSTEMS (2+ for4; 10+ for level 5) Review of Systems Constitutional: Positive for activity change, appetite change and fatigue. Negative for chills, diaphoresis and fever. HENT: Negative for congestion, ear pain, facial swelling, rhinorrhea and sore throat. Eyes: Negative for photophobia, pain and visual disturbance. Respiratory: Negative for cough, chest tightness, shortness of breath and wheezing. Cardiovascular: Positive for chest pain. Negative for leg swelling. Gastrointestinal: Positive for abdominal pain, diarrhea, nausea and vomiting. Negative for constipation. Genitourinary: Negative for difficulty urinating, dysuria, flank pain, frequency, hematuria and urgency. Musculoskeletal: Negative for arthralgias, back pain, myalgias and neck pain. Skin: Negative for rash. Neurological: Negative for dizziness and headaches. Psychiatric/Behavioral: Negative for suicidal ideas. PAST MEDICAL HISTORY History reviewed. No pertinent past medical history. SURGICALHISTORY Past Surgical History: Procedure Laterality Date ? CHOLECYSTECTOMY CURRENT MEDICATIONS Previous Medications No medications on file Patient has no known allergies. FAMILY HISTORY History reviewed. No pertinent family history. SOCIAL HISTORY Social History Socioeconomic History ? Marital status: Single Spouse name: None ? Number of children: None ? Years of education: None ? Highest education level: None Occupational History ? None Tobacco Use ? Smoking status: Former Smoker ? Smokeless tobacco: Never Used ? Tobacco comment: occasional Vaping Use ? Vaping Use: Never used Substance and Sexual Activity ? Alcohol use: No ? Drug use: No ? Sexual activity: Not Currently Other Topics Concern ? None Social History Narrative ? None Social Determinants of Health Financial Resource Strain: ? Difficulty of Paying Living Expenses: Not on file Food Insecurity: ? Worried About Running Out of Food in the Last Year: Not on file ? Ran Out of Food in the Last Year: Not on file Transportation Needs: ? Lack of Transportation (Medical): Not on file ? Lack of Transportation (Non-Medical): Not on file Physical Activity: ? Days of Exercise per Week: Not on file ? Minutes of Exercise per Session: Not on file Stress: ? Feeling of Stress : Not on file Social Connections: ? Frequency of Communication with Friends and Family: Not on file ? Frequency of Social Gatherings with Friends and Family: Not on file ? Attends Jewish Services: Not on file ? Active Member of Clubs or Organizations: Not on file ? Attends Club or Organization Meetings: Not on file ? Marital Status: Not on file Intimate Partner Violence: ? Fear of Current or Ex-Partner: Not on file ? Emotionally Abused: Not on file ? Physically Abused: Not on file ? Sexually Abused: Not on file Housing Stability: ? Unable to Pay for Housing in the Last Year: Not on file ? Number of Places Lived in the Last Year: Not on file ? Unstable Housing in the Last Year: Not on file SCREENINGS @FLOW([id number])@ PHYSICAL EXAM (5+ for level 4, 8+ for level 5) ED Triage Vitals [06/28/21 0912] BP Temp Temp Source Pulse Resp SpO2 Height Weight (!) 186/113 98 ?F (36.7 ?C) Temporal 85 20 97 % -- 200 lb (90.7 kg) Physical Exam Vitals and nursing note reviewed. Constitutional: General: She is not in acute distress. Appearance: She is well-developed. She is not diaphoretic. HENT: Head: Normocephalic. Eyes: Conjunctiva/sclera: Conjunctivae normal. Cardiovascular: Rate and Rhythm: Normal rate and regular rhythm. Heart sounds: No murmur heard. No friction rub. No gallop. Pulmonary: Effort: Pulmonary ef (more content not included)... Normal [facility] Hemogram w/ Autodiffon 06-28 Abs Baso Cnt 0.1 10*3/uL Normal 0.0-0.2 [facility] Comment on above: Performed By: #### H A1C2, ESR, CRP2 #### [facility] [address] [place] [address] #### ANA3 #### [address] Abs Neutrophile Cnt 13.1 10*3/uL High 1.8-7.0 [facility] Comment on above: Performed By: #### H A1C2, ESR, CRP2 #### [place] [address] [place] [address] #### ANA3 #### [address] Basophils/100 WBC (Bld) 0.4 % Normal 0.0-2.0 [facility] Comment on above: Performed By: #### H A1C2, ESR, CRP2 #### [place] [address] [place] [address] #### ANA3 #### [address] Eosinophils (Bld) [#/Vol] 0.1 10*3/uL Normal 0.0-0.5 [facility] Comment on above: Performed By: #### H A1C2, ESR, CRP2 #### [place] [address] [place] [address] #### ANA3 #### [address] Eosinophils/100 WBC (Bld) 0.4 % Low 1.0-6.0 [facility] Comment on above: Performed By: #### H A1C2, ESR, CRP2 #### [address] [place] [address] #### ANA3 #### [address] Erythrocyte distribution width (RBC) [Ratio] 13.6 % Normal 11.5-14.5 [facility] Comment on above: Performed By: #### H A1C2, ESR, CRP2 #### [address] [place] [address] #### ANA3 #### [address] Granulocytes/100 WBC (Bld) 83.6 % High 40.0-80.0 [facility] Comment on above: Performed By: #### H A1C2, ESR, CRP2 #### [address] [place] [address] #### ANA3 #### [address] Hematocrit (Bld) [Volume fraction] 44.1 % Normal 35.0-47.0 [facility] Comment on above: Performed By: #### H A1C2, ESR, CRP2 #### [address] [place] [address] #### ANA3 #### [address] Hemoglobin (Bld) [Mass/Vol] 14.4 g/dL Normal 11.7-16.0 [facility] Comment on above: Performed By: #### H A1C2, ESR, CRP2 #### [address] [place] [address] #### ANA3 #### [address] Lymphocytes (Bld) [#/Vol] 1.8 10*3/uL Normal 1.0-4.3 [facility] Comment on above: Performed By: #### H A1C2, ESR, CRP2 #### [address] [place] [address] #### ANA3 #### [address] Lymphocytes/100 WBC (Bld) 11.7 % Low 20.0-40.0 [facility] Comment on above: Performed By: #### H A1C2, ESR, CRP2 #### [facility] [address] [place] [address] #### ANA3 #### [place] [address] [place], [place] MCH (RBC) [Entitic mass] 28.1 pg Normal 26.0-34.0 [facility] Comment on above: Performed By: #### H A1C2, ESR, CRP2 #### [facility] [address] [place] [place] [address] #### ANA3 #### [address] MCHC 32.7 % Normal 32.0-36.0 [facility] Comment on above: Performed By: #### H A1C2, ESR, CRP2 #### [facility] [address] [place] [place] [address] #### ANA3 #### [address] MCV (RBC) [Entitic vol] 85.9 fL Normal 79.0-98.0 [facility] Comment on above: Performed By: #### H A1C2, ESR, CRP2 #### [address] [place] [address] #### ANA3 #### [address] Monocytes (Bld) [#/Vol] 0.6 10*3/uL Normal 0.0-0.8 [facility] Comment on above: Performed By: #### H A1C2, ESR, CRP2 #### [facility] [address] [place] [place] [address] #### ANA3 #### [address] Monocytes/100 WBC (Bld) 3.9 % Normal 2.0-10.0 [facility] Comment on above: Performed By: #### H A1C2, ESR, CRP2 #### [facility] [address] [place] [address] #### ANA3 #### [facility] [address] [place] [address] Platelet mean volume (Bld) [Entitic vol] 8.5 fL Normal 7.4-10.4 [facility] Comment on above: Performed By: #### H A1C2, ESR, CRP2 #### [facility] [address] [place] [address] #### ANA3 #### [place] [address] [address] [place], [place] Platelets (Bld) [#/Vol] 314 10*3/uL Normal 140-440 [facility] Comment on above: Performed By: #### H A1C2, ESR, CRP2 #### [place] [address] [place] [address] #### ANA3 #### [place] [address] [place], [place] RBC (Bld) [#/Vol] 5.14 10*6/uL Normal 3.80-5.20 [facility] Comment on above: Performed By: #### H A1C2, ESR, CRP2 #### [facility] [address] [place] [address] #### ANA3 #### [place] [address] [place], [place] WBC (Bld) [#/Vol] 15.7 10*3/uL High 3.6-10.7 [facility] Comment on above: Performed By: #### H A1C2, ESR, CRP2 #### [facility] [address] [place] [address] #### ANA3 #### [place] [address] [place], [place] Hepatic Functionon 2 ALP [Catalytic activity/Vol] 68 U/L Normal 38-126 [facility] Comment on above: Performed By: #### H A1C2, ESR, CRP2 #### [facility] [address] [place] [address] #### ANA3 #### [place] [address] [place] [place] [address] ALT [Catalytic activity/Vol] 24 U/L Normal 0-34 [facility] Comment on above: Result Comment: The ALT test is performed by an updated assay method. Please note that the reference intervals have been changed and are now sex specific. Performed By: #### H A1C2, ESR, CRP2 #### [facility] [address] [place] [address] #### ANA3 #### [place] [address] [place] [address] AST [Catalytic activity/Vol] 26 U/L Normal 15-46 [facility] Comment on above: Performed By: #### H A1C2, ESR, CRP2 #### [place] [address] [place] [address] #### ANA3 #### [place] [address] [place] [address] Bilirubin [Mass/Vol] 0.9 mg/dL Normal 0.2-1.3 [facility] Comment on above: Performed By: #### H A1C2, ESR, CRP2 #### [address] [place] [address] #### ANA3 #### [place] [address] [place] [address] Bilirubin.indirect [Mass/Vol] 0.0 mg/dL Normal 0.0-0.3 [facility] Comment on above: Performed By: #### H A1C2, ESR, CRP2 #### [address] [place] [address] #### ANA3 #### [place] [address] [facility] [place] [address] Protein [Mass/Vol] 7.8 g/dL Normal 6.3-8.2 [facility] Comment on above: Performed By: #### H A1C2, ESR, CRP2 #### [place] [address] [place] [address] #### ANA3 #### [place] [address] [address] [place], [place] Albumin [Mass/Vol] 4.7 g/dL Normal 3.5-5.0 [facility] Comment on above: Performed By: #### H A1C2, ESR, CRP2 #### [facility] [address] [place] [address] #### ANA3 #### [facility] [address] [place], [place] Lipaseon 06-28-2021 Lipase [Catalytic activity/Vol] 3524 U/L High 23-300 [facility] Comment on above: Performed By: #### H A1C2, ESR, CRP2 #### [facility] [address] [place] [address] #### ANA3 #### [facility] [address] [place], [place] SARS-CoV-2, Flu A/B and RSVo n 06-28-2021 SARS-CoV-2 (COVID-19) RNA SOO+probe Ql (Unsp spec) SARS-CoV-2 --> Status: F Not Detected. Flu A PCR --> Status: F Not Detected. Flu B PCR --> Status: F Not Detected. RSV PCR --> Status: F Not Detected. Expected Result: Not Detected _ Method: Real-time, RT-PCR This assay was developed by [employer] and distributed under an Emergency Use Authorization (EUA) granted by the FDA for the qualitative detection of nucleic acids from SARS-CoV-2, Influenza A, Influenza B, and Respiratory Syncytial Virus. Provider and patient fact sheets can be found at https://www.fda.gov/media/ 163471/download and https://www.fda.gov/media/ 119087/download. Expected Result: Not Detected _ Method: Real-time, RT-PCR This assay was developed by [employer] and distributed under an Emergency Use Authorization (EUA) granted by the FDA for the qualitative detection of nucleic acids from SARS-CoV-2, Influenza A, Influenza B, and Respiratory Syncytial Virus. Provider and patient fact sheets can be found at https://www.fda.gov/media/ 611271/download and https://www.fda.gov/media/ 182030/download. Normal [facility] Comment on above: Performed By: #### H A1C2, ESR, CRP2 #### [facility] [address] [place] [address] #### ANA3 #### [facility] [address] [place] [address] Troponin Ion 06-28-2021 Troponin I.cardiac [Mass/Vol] ng/mL Normal 0.000-0.034 [facility] Comment on above: Result Comment: . Performed By: #### H A1C2, ESR, CRP2 #### [facility] [address] [place] [address] #### ANA3 #### [facility] [address] [place] [address] hCG Quantitativeon 2 hCG Quantitative < 2 Normal [facility] Comment on above: Result Comment: Fema les < 5 Values in should double every 2 to 3 days for the first 6 weeks.Elevated concentrations of human chorionic gonadotropin (hCG) measured in the first trimester of are observed in normal , but may serve as an indication of chorionic carcinoma, hydatiform mole, or multiple .Decreasing hCG concentrations indicate threatened or missed , recent termination of , ectopic , gestosis or intrauterine . Tiffani- and postmenopausal females may have detectable hCG concentrations (< or = to 14 mIU/mL) due to pituitary production of hCG. Serum follicle-stimulating hormone measurement may aid in ruling-out in this population. Cutoffs of greater than 20 to 45 mIU/mL have been suggested and are method dependent. False-elevations (called phantom human chorionic gonadotropin: hCG) may occur with patients who have human antianimal or heterophilic antibodies. Some specimens may not dilute linearly due to abnormal forms of hCG. Elevated hCG concentrations not associated with are found in patients with other diseases such as tumors of the germ cells, ovaries, bladder, pancreas, stomach, lungs, and liver. This test is not intended to detect or monitor tumors or gestational trophoblastic disease. Performed By: #### H A1C2, ESR, CRP2 #### [facility] [address] [place] [address] #### ANA3 #### [facility] [address] [place] [address] CMV IgG Abon 06-22-2018 CMV IgG Ab SEE BELOW Normal [facility] Comment on above: Result Comment: CMV IgG Qual Positive AB NEGAT Presence of detectable CMV IgG antibodies indicates either recent or past exposure to CMV. CMV IgG Antibody 8.90 U/mL U/mL values are interpreted as follows: Negative: <0.60 Equivocal: >=0.60 to <0.70 Positive: >=0.70 The magnitude of the measured result above the cutoff is not indicative of the amount of antibody present. Performing Laboratory: [facility]@ [facility] [address] [place] [id number] Performed By: #### L IPD2 #### [place] [id number] CMV IgM Abon 06-22-2018 CMV IgM Ab SEE BELOW [facility] [place] Comment on above: Result Comment: CMV IgM, Qual Negative NEGAT Absence of detectable CMV IgM antibodies. If clinical exposure to hCMV is suspected despite a negative finding, a second sample should be collected and tested no less than one or two weeks later. CMV IgM Antibody 29.4 AU/mL AU/mL values are interpreted as follows: Negative: <30.0 Equivocal: >=30.0 to <35.0 Positive: >=35.0 The magnitude of the measured result is not indicative of the amount of antibody present. Performing Laboratory: [facility]@ [facility] [place] [address] Performed By: #### L IPD2 #### [place] [id number] EBV Panelon 06-22-2018 EBV Panel SEE BELOW Normal [facility] Comment on above: Result Comment: EBV VCA IgG, Qual Positive AB NEGAT Specimen is positive for EBV VCA IgG antibody. A positive test result presumes a current or past infection with EBV. Other EBV serology assays such as the EBV VCA IgM should be performed to confirm serologic status, active acute, past or indeterminate infection for EBV-associated infectious mononucleosis. EBV VCA IgG >8.0 AI AI VALUES ARE INTERPRETED FOLLOWS: NEGATIVE SPECIMENS <=0.8 EQUIVOCAL SPECIMENS 0.9 TO 1.0 POSITIVE SPECIMENS >=1.1 Antibody index (AI) values reflect qualitative changes in antibody concentration that cannot be associated with clinical condition or disease state. EBV VCA IgM, Qual Negative NEGAT EBV VCA IgM antibodies are not detectable. EBV VCA IgM 0.4 AI AI VALUES ARE INTERPRETED FOLLOWS: NEGATIVE SPECIMENS <=0.8 EQUIVOCAL SPECIMENS 0.9 TO 1.0 POSITIVE SPECIMENS >=1.1 The magnitude of the reported IgM level cannot be correlated to an endpoint titer (or clinical status). EBV EA Ab, Qual Negative NEGAT EBV EA-D IgG antibodies are not detectable. If the result is negative and exposure to Ammy-Santillan virus is suspected, a second sample should be collected and tested no less than one to two weeks later. EBV EA Antibody <0.2 AI AI VALUES ARE INTERPRETED FOLLOWS: NEGATIVE SPECIMENS <=0.8 EQUIVOCAL SPECIMENS 0.9 TO 1.0 POSITIVE SPECIMENS >=1.1 Antibody index(AI) values reflect qualitative changes in antibody concentration that cannot be associated with clinical condition or disease state. EBV NA Ab, Qual Positive AB NEGAT Specimen is positive for EBV NA-1 IgG antibody. A positive test result presumes a current or past infection with EBV. Other EBV serology assays such as the EBV VCA IgM should be performed to confirm serologic status, active acute, past or indeterminate infection for EBV-associated infectious mononucleosis. EBV NA Antibody >8.0 AI AI VALUES ARE INTERPRETED FOLLOWS: NEGATIVE SPECIMENS <=0.8 EQUIVOCAL SPECIMENS 0.9 TO 1.0 POSITIVE SPECIMENS >=1.1 Antibody index(AI) values reflect qualitative changes in antibody concentration that cannot be associated with clinical condition or disease state. EBV Interpretation See below (NOTE) Syndrome EBV VCA EBV VCA EBV EA EBV NA IgM IgG No EBV Neg Neg Neg Neg Acute Infection Pos Pos Pos Pos Past Infection Neg Pos Neg Pos Reactivation Pos or Neg Pos Pos or Neg Pos Note: EBV NA appears last in acute infection Performing Laboratory: [facility]@ [facility] [address] [place] [address] Performed By: #### L IPD2 #### [address] [address] CRPon 06-19-2018 CRP mass conc mg/L Normal 0.00-0.30 [facility] Comment on above: Performed By: #### L IPD2 #### [address] [address] Hemogram/Diffon 06-19-2018 Abs Immature Grans 0.01 thou/cmm Normal 0.00-0.05 [facility] Comment on above: Performed By: #### L IPD2 #### [facility] [address] [place] [address] Abs. Baso 0.03 thou/cmm Normal 0.01-0.08 [facility] Comment on above: Performed By: #### L IPD2 #### [facility] [address] [place] [address] Abs. Creek 0.42 thou/cmm Normal 0.27-0.70 [facility] Comment on above: Performed By: #### L IPD2 #### [place] [address] Abs. Neut (ANC) 3.50 thou/cmm Normal 1.56-6.13 [facility] Comment on above: Performed By: #### L IPD2 #### [place] [address] Basophils/100 WBC (Bld) 0.4 % Normal [facility] Comment on above: Performed By: #### L IPD2 #### [place] [address] Eosinophils #/vol (Bld) 0.18 thou/cmm Normal 0.00-0.31 [facility] Comment on above: Performed By: #### L IPD2 #### [place] [address] Eosinophils/100 WBC (Bld) 2.7 % Normal [facility] Comment on above: Performed By: #### L IPD2 #### [place] [address] Erythrocyte distribution width Ratio (RBC) 13.4 % Normal 11.7-14.4 [facility] Comment on above: Performed By: #### L IPD2 #### [place] [address] Hematocrit Volume Fraction (Bld) 40.8 % Normal 34.1-44.9 [facility] Comment on above: Performed By: #### L IPD2 #### [facility] [address] [place] [address] Hemoglobin mass conc (Bld) 13.0 g/dL Normal 11.2-15.7 [facility] Comment on above: Performed By: #### L IPD2 #### [facility] [address] [place] [address] Immature Grans 0.10 % Normal [facility] Comment on above: Performed By: #### L IPD2 #### [facility] [address] [place] [address] Lymphocytes #/vol (Bld) 2.56 thou/cmm Normal 1.18-3.74 [facility] Comment on above: Performed By: #### L IPD2 #### [facility] [address] [place] [address] Lymphocytes/100 WBC (Bld) 38.2 % Normal [facility] Comment on above: Performed By: #### L IPD2 #### [facility] [address] [place] [address] MCH Entitic mass (RBC) 26.3 pg Normal 25.6-32.2 [facility] Comment on above: Performed By: #### L IPD2 #### [facility] [address] [place] [address] MCHC mass conc (RBC) 31.9 % Normal 31.6-34.8 [facility] Comment on above: Performed By: #### L IPD2 #### [facility] [address] [place] [address] MCV Entitic volume (RBC) 82.4 fL Normal 79.4-94.8 [facility] Comment on above: Performed By: #### L IPD2 #### [facility] [address] [place] [address] Monocytes/100 WBC (Bld) 6.3 % Normal [facility] Comment on above: Performed By: #### L IPD2 #### [facility] [address] [place] [address] Platelet mean volume Entitic volume (Bld) 10.8 fL Normal 9.4-12.3 [facility] Comment on above: Performed By: #### L IPD2 #### [facility] [address] [place] [address] Platelets #/vol (Bld) 254 thou/cmm Normal 182-[address] [facility] Comment on above: Performed By: #### L IPD2 #### [facility] [address] [place] [address] RBC #/vol (Bld) 4.95 mil/cmm Normal 3.93-5.22 [facility] Comment on above: Performed By: #### L IPD2 #### [facility] [address] [place] [address] RDW SD 39.9 fl Normal 36.4-46.3 [facility] Comment on above: Performed By: #### L IPD2 #### [facility] [address] [place] [address] Seg Neutrophil 52.3 % Normal [facility] Comment on above: Performed By: #### L IPD2 #### [facility] [address] [place] [address] WBC #/vol (Bld) 6.70 thou/cmm Normal 3.98-10.04 [facility] Comment on above: Performed By: #### L IPD2 #### [facility] [address] [place] [address] US ABDOMEN [id number] US ABDOMEN [id number] Performed at [facility] APPROVED BY: Aguila Ronquillo MD EXAMINATION: COMPLETE ABDOMINAL ULTRASOUND CLINICAL HISTORY: Splenomegaly, elevated liver function tests TECHNIQUE: Sonography of the abdomen was performed. Images were obtained and stored in a permanent archive. MQ: UAbC_1 COMPARISON: 03/27/[address] RESULT: Pancreas: Unremarkable Portions obscured: Tail Lesions: None Liver: Echotexture: Unremarkable Surface contour: Smooth Lesions: None. Biliary: No intrahepatic biliary duct dilation. CBD: 0.5 cm at the hilum. Gallbladder: Cholecystectomy Spleen: Craniocaudal length: 15.7 cm enlarged Lesions: None Right Kidney: -Renal length: 11.4 cm -Parenchyma: Normal parenchymal echogenicity. Normal parenchymal thickness. -Collecting system: No hydronephrosis. -Calculus: No echogenic, shadowing calculus. -Lesion: None. Left Kidney: -Renal length: 11.5 cm -Parenchyma: Normal parenchymal echogenicity. Normal parenchymal thickness. -Collecting system: No hydronephrosis. -Calculus: No echogenic, shadowing calculus. -Lesion: None. Bladder: Normal. IVC: Imaged segment is patent. Abdominal Aorta: Imaged segment is patent. Ascites: None. IMPRESSION: 1. Moderate degree of splenomegaly, unchanged from previous imaging. 2. Status post cholecystectomy. No bile duct dilatation. . Normal [facility] MRI MRCP-BTREE/BILE W/WO CON TRAST [id number] 03-27-2018 MRI MRCP-BTREE/BILE W/WO CONTRAST [id number] Performed at [facility] APPROVED BY: Paulo Lund MD EXAM TITLE: MRI MRCP-BTREE/BILE W/WO CONTRAST [id number] DATE: 03/27/2018 17:51 INDICATION: Left upper quadrant pain. CT scan dated 03/09/2018 showing inhomogeneous pancreas and splenomegaly. COMPARISON: As above. A series of T1 and T2-weighted axial, coronal, and sagittal images were acquired through the upper abdomen. Contrast: 19 cc of Dotarem intravenous contrast. Lung bases: Clear. Liver: Unremarkable. Gallbladder/bile ducts: Gallbladder is surgically absent. The common hepatic duct measures up to 7.0 mm in diameter. No common bile duct stone.. Pancreas: Unremarkable. No mass lesion. Normal signal intensity and enhancement. The pancreatic duct is not dilated. Adrenal glands: Unremarkable. Spleen: The spleen is enlarged. It measures up to 16 cm in length. It is homogeneous. No focal lesion.. Kidneys: Unremarkable. Bowel: Unremarkable. Ascites: None. Retroperitoneum: Slight prominence of periportal lymph nodes measuring up to 13 mm in short axis diameter. Bony structures: Hemangioma within L2 vertebral body. IMPRESSION: Splenomegaly. Mild enlargement of periportal lymph nodes. Although these may be reactive, in the setting of splenomegaly, underlying neoplasm cannot be excluded. Remainder of the exam and the upper abdomen is normal. Normal [facility] CT ABDOMEN AND PELVIS WITH C ONTRASTon 03-09-2018 CT ABDOMEN AND PELVIS WITH CONTRAST Performed at [facility] APPROVED BY: HERO JOHNSON MD EXAMINATION: CT ABDOMEN AND PELVIS WITH IV CONTRAST HISTORY: Adult ER patient presented with right-sided abdominal pain with nausea and vomiting and constipation. Prior history of pancreatitis. Abd pain, fever, elev WBC, appendicitis suspected, classic presentation TECHNIQUE: CT of the abdomen and pelvis was performed using standard technique, scanning from just above the dome of the diaphragm to the thigh. MQ: CTAP_3 Contrast: IV: 150 ml of Omnipaque 300. : ml of CT Radiation dose: Integrated Dose-length product (DLP) for this visit = 574 mGy*cm. CT Dose Reduction Employed: Automated exposure control. COMPARISON: None. RESULT: Limitations: Some motion artifacts. LOWER CHEST: The heart size is normal. No pericardial effusion. No focal consolidation, pleural effusion or pneumothorax. ABDOMEN: Liver: The liver is enhancing homogeneously. No parenchymal laceration or enhancing parenchymal lesions. There is preserved enhancement in the portal vein and immediate branches. Biliary: No intra or extrahepatic biliary dilatation. Status post cholecystectomy. Spleen: The spleen is enlarged measuring 16 cm maximum length with no discrete focal lesions. Pancreas: The pancreas is heterogeneous with subtle decrease in parenchymal enhancement. No peripancreatic inflammatory changes are detected. The findings may be sequela from the previous pancreatitis. However, recommend correlation with amylase and lipase to exclude any likelihood of very early acute pancreatitis. No peripancreatic fluid collection/pseudocyst formation. Adrenals: The adrenal glands appear unremarkable with no focal lesions. Kidneys: No definite hydronephrosis. No enhancing masses detected. No suspicious stranding of the perinephric fat. GI tract: The bowel loops are normal in caliber. The appendix is visualized and appears unremarkable. No suspicious bowel wall thickening. There is diastases of abdominal rectus muscles with tiny fat-containing and local hernia with no bowel containing abdominal wall or inguinal hernia. Lymph nodes: No enlarged abdominal/pelvic lymphadenopathy. Mesentery/Peritoneum: No suspicious mass or contrast extravasation. Small free fluid noted in the pelvis. Vasculature: The IVC and aorta are normal in caliber. No retroperitoneal hematoma or abdominal aortic aneurysmal dilatation. There is preserved enhancement in the iliac arteries, renal veins, SMV, splenic vein, SMA, celiac and the proximal segment of the ALEX. Bones/Soft Tissues: No acute fractures detected. No compression deformities. PELVIS: No gross enlargement of the uterus. IUD is seen in the mid/lower segment of the endometrial cavity (the superior segment is usually the desired location). The bladder is moderately filled with mild circumferential wall thickening most likely related to incomplete distention with no definite intraluminal stones. There is asymmetrical enlargement of the right ovary apparently caused by 2.4 cm cyst. IMPRESSION: Splenomegaly with no discrete focal lesions. Heterogeneous morphology of the pancreas with no secondary findings to confirm acute pancreatitis. The findings are likely sequela from the previous pancreatitis. Recommend correlation with amylase and lipase to exclude any likelihood of very early acute pancreatitis. Small free fluid in pelvis. 2.4 cm lesion in the right ovary consistent with a cyst. No acute appendicitis, intra-abdominal free air, pneumatosis, hydronephrosis, pyelonephritis or bowel obstruction. Please review the detailed body of the report for complete information. Normal [facility] US FEMALE PELVIS TRANSABD LT Don 03-09-2018 US FEMALE PELVIS TRANSABD LTD Performed at [facility] APPROVED BY: Paulo Lund MD EXAMINATION: TRANSVAGINAL AND LIMITED TRANSABDOMINAL PELVIC ULTRASOUND CLINICAL HISTORY: Pelvic pain. TECHNIQUE: Sonography of the pelvis was performed by transvaginal and transabdominal (limited) techniques. Images were obtained and stored in a permanent archive. MQ: UFP_1 COMPARISON: CT scan dated 03/09/2018 RESULT: Uterus size: 10.0 x 4.0 x 6.0 cm -Orientation: Anteverted -Myometrium: Normal sonographic appearance. No uterine mass. -Endometrial echo complex: 0.6 cm . IUD noted in the endometrial canal the mid body and lower uterine segment. -Cervix: normal Right ovary: 5.0 x 4.2 x 2.6 cm 2.5 cm simple cyst in the right ovary possibly a dominant follicle. Normal Doppler evaluation. Left ovary: 3.0 x 2.1 x 2.0 cm Normal sonographic appearance. Normal Doppler evaluation. Pelvis free fluid: Trace IMPRESSION: IUD in the endometrial canal within the mid body and lower uterine segment. It is slightly lower than is typically seen but it is still within the endometrial canal. Probable dominant follicle in the right ovary. Otherwise no significant findings noted. Normal [facility] US TRANSVAGINALon 03-09-2018 US TRANSVAGINAL Performed at [facility] APPROVED BY: Paulo Lund MD EXAMINATION: TRANSVAGINAL AND LIMITED TRANSABDOMINAL PELVIC ULTRASOUND CLINICAL HISTORY: Pelvic pain. TECHNIQUE: Sonography of the pelvis was performed by transvaginal and transabdominal (limited) techniques. Images were obtained and stored in a permanent archive. MQ: UFP_1 COMPARISON: CT scan dated 03/09/2018 RESULT: Uterus size: 10.0 x 4.0 x 6.0 cm -Orientation: Anteverted -Myometrium: Normal sonographic appearance. No uterine mass. -Endometrial echo complex: 0.6 cm . IUD noted in the endometrial canal the mid body and lower uterine segment. -Cervix: normal Right ovary: 5.0 x 4.2 x 2.6 cm 2.5 cm simple cyst in the right ovary possibly a dominant follicle. Normal Doppler evaluation. Left ovary: 3.0 x 2.1 x 2.0 cm Normal sonographic appearance. Normal Doppler evaluation. Pelvis free fluid: Trace IMPRESSION: IUD in the endometrial canal within the mid body and lower uterine segment. It is slightly lower than is typically seen but it is still within the endometrial canal. Probable dominant follicle in the right ovary. Otherwise no significant findings noted. Normal [facility] Urinalysis Routineon 03-09- 018 Bacteria LM.HPF #/area (Urine sed) FEW Normal None [facility] Comment on above: Performed By: #### 2 5VD1 #### [facility] [address] [place], [place] [address] Ep Cells Urine 7.3 /hpf High 0.0-5.0 [facility] Comment on above: Performed By: #### 2 5VD1 #### [facility] [address] [place], [place] [address] Hyaline Cast 2.8 /lpf High 0.0-1.0 [facility] Comment on above: Performed By: #### 2 5VD1 #### [facility] [address] [place], [place] [address] RBC,Urine 5.7 /hpf High 0.0-5.0 [facility] Comment on above: Performed By: #### 2 5VD1 #### [facility] [address] [place], [place] [address] WBC, Urine 45.6 /hpf High 0.0-5.0 [facility] Comment on above: Performed By: #### 2 5VD1 #### [address] [address] Appearance Nom (U) CLOUDY Normal [facility] Comment on above: Performed By: #### 2 5VD1 #### [facility] [address] [place] [address] Bilirubin Urine Negative Normal Negative [facility] Comment on above: Performed By: #### 2 5VD1 #### [facility] [address] [place] [address] Color Nom (U) YELLOW Normal [facility] Comment on above: Performed By: #### 2 5VD1 #### [facility] [address] [place] [address] Glucose Ql (U) Negative Normal Negative [facility] Comment on above: Performed By: #### 2 5VD1 #### [facility] [address] [place] [address] Hemoglobin,Urine SMALL Abnormal Negative [facility] Comment on above: Performed By: #### 2 5VD1 #### [facility] [address] [place] [address] Ketone Urine Negative Normal Negative [facility] Comment on above: Performed By: #### 2 5VD1 #### [facility] [address] [place] [address] Leukocytes Esterase LARGE Abnormal Negative [facility] Comment on above: Performed By: #### 2 5VD1 #### [facility] [address] [place] [address] Nitrites Urine Negative Normal Negative [facility] Comment on above: Performed By: #### 2 5VD1 #### [facility] [address] [place] [address] pH (U) 6.5 [pH] Normal 5.0-8.0 [facility] Comment on above: Performed By: #### 2 5VD1 #### [facility] [address] [place] [address] Protein mass conc (U) TRACE Abnormal Negative [facility] Comment on above: Performed By: #### 2 5VD1 #### [facility] [address] [place] [address] Specific Jeremiah, Ur 1.007 Normal 1.005-1.030 [facility] Comment on above: Performed By: #### 2 5VD1 #### [facility] [address] [place], [place] [address] Urobilinogen,Ur 0.2 EU/dL Normal 0.0-1.0 [facility] Comment on above: Performed By: #### 2 5VD1 #### [facility] [address] [place], [place] [address] Urine HCG, Qual.on 8 HCG.beta subunit ( test) Ql (U) Negative Normal Negative [facility] Comment on above: Performed By: #### 2 5VD1 #### [facility] [address] [place] [address] Specific Jeremiah, Ur 1.007 Normal 1.005-1.030 [facility] Comment on above: Performed By: #### 2 5VD1 #### [place] [address] Comprehensive Panelon 2017 ALP enzyme act/vol 75 U/L Normal 46-116 [facility] Comment on above: Performed By: #### 2 5VD1 #### [address] [address] Bilirubin mass conc 0.5 mg/dL Normal 0.2-1.0 [facility] Comment on above: Performed By: #### 2 5VD1 #### [facility] [address] [place], [place] [address] Protein mass conc 7.2 g/dL Normal 6.4-8.2 [facility] Comment on above: Performed By: #### 2 5VD1 #### [facility] [address] [place], [place] [address] ALT enzyme act/vol 60 U/L Normal 12-78 [facility] Comment on above: Performed By: #### 2 5VD1 #### [facility] [address] [place], [place] [address] AST enzyme act/vol 53 U/L High 9-37 [facility] Comment on above: Performed By: #### 2 5VD1 #### [facility] [address] [place], [place] [address] Creatinine mass conc 0.59 mg/dL Normal 0.51-0.95 [facility] Comment on above: Performed By: #### 2 5VD1 #### [facility] [address] [place], [place] [address] Albumin mass conc 3.7 g/dL Normal 3.4-5.0 [facility] Comment on above: Performed By: #### 2 5VD1 #### [facility] [address] [place], [place] [address] Anion gap molar conc 10 mmol/L Normal 8-16 [facility] Comment on above: Performed By: #### 2 5VD1 #### [facility] [address] [place], [place] [address] CO2 molar conc 30 mmol/L Normal 21-32 [facility] Comment on above: Performed By: #### 2 5VD1 #### [facility] [address] [place], [place] [address] Glucose mass conc 74 mg/dL Normal 70-99 [facility] Comment on above: Performed By: #### 2 5VD1 #### [facility] [address] [place], [place] [address] Urea nitrogen mass conc 4 mg/dL Low 7-18 [facility] Comment on above: Performed By: #### 2 5VD1 #### [facility] [address] [place], [place] [address] Calcium mass conc 8.4 mg/dL Low 8.5-10.1 [facility] Comment on above: Performed By: #### 2 5VD1 #### [facility] [address] [place], [place] [address] Chloride molar conc 103 mmol/L Normal 98-107 [facility] Comment on above: Performed By: #### 2 5VD1 #### [facility] [address] [place], [place] [address] Potassium molar conc 3.8 mmol/L Normal 3.5-5.1 [facility] Comment on above: Performed By: #### 2 5VD1 #### [facility] [address] [place], [place] [address] Sodium molar conc 139 mmol/L Normal 136-145 [facility] Comment on above: Performed By: #### 2 5VD1 #### [facility] [address] [place] [address] Hemogram/Diffon 03-08-2018 Abs Immature Grans 0.02 thou/cmm Normal 0.00-0.05 [facility] Comment on above: Performed By: #### 2 5VD1 #### [facility] [address] [place] [address] Abs. Baso 0.02 thou/cmm Normal 0.01-0.08 [facility] Comment on above: Performed By: #### 2 5VD1 #### [facility] [address] [place] [address] Abs. Creek 0.31 thou/cmm Normal 0.27-0.70 [facility] Comment on above: Performed By: #### 2 5VD1 #### [place] [address] Abs. Neut (ANC) 2.76 thou/cmm Normal 1.56-6.13 [facility] Comment on above: Performed By: #### 2 5VD1 #### [place] [address] Basophils/100 WBC (Bld) 0.4 % Normal [facility] Comment on above: Performed By: #### 2 5VD1 #### [place] [address] Eosinophils #/vol (Bld) 0.10 thou/cmm Normal 0.00-0.31 [facility] Comment on above: Performed By: #### 2 5VD1 #### [place] [address] Eosinophils/100 WBC (Bld) 2.0 % Normal [facility] Comment on above: Performed By: #### 2 5VD1 #### [facility] [address] [place] [address] Erythrocyte distribution width Ratio (RBC) 13.6 % Normal 11.7-14.4 [facility] Comment on above: Performed By: #### 2 5VD1 #### [facility] [address] [place], [place] [address] Hematocrit Volume Fraction (Bld) 37.5 % Normal 34.1-44.9 [facility] Comment on above: Performed By: #### 2 5VD1 #### [facility] [address] [place], [place] [address] Hemoglobin mass conc (Bld) 12.1 g/dL Normal 11.2-15.7 [facility] Comment on above: Performed By: #### 2 5VD1 #### [facility] [address] [place] [address] Immature Grans 0.40 % Normal [facility] Comment on above: Performed By: #### 2 5VD1 #### [facility] [address] [place] [address] Lymphocytes #/vol (Bld) 1.80 thou/cmm Normal 1.18-3.74 [facility] Comment on above: Performed By: #### 2 5VD1 #### [facility] [address] [place] [address] Lymphocytes/100 WBC (Bld) 35.9 % Normal [facility] Comment on above: Performed By: #### 2 5VD1 #### [facility] [address] [place] [address] MCH Entitic mass (RBC) 26.5 pg Normal 25.6-32.2 [facility] Comment on above: Performed By: #### 2 5VD1 #### [facility] [address] [place] [address] MCHC mass conc (RBC) 32.3 % Normal 31.6-34.8 [facility] Comment on above: Performed By: #### 2 5VD1 #### [facility] [address] [place] [address] MCV Entitic volume (RBC) 82.2 fL Normal 79.4-94.8 [facility] Comment on above: Performed By: #### 2 5VD1 #### [facility] [address] [place], [place] [address] Monocytes/100 WBC (Bld) 6.2 % Normal [facility] Comment on above: Performed By: #### 2 5VD1 #### [facility] [address] [place] [address] Platelet mean volume Entitic volume (Bld) 9.9 fL Normal 9.4-12.3 [facility] Comment on above: Performed By: #### 2 5VD1 #### [facility] [address] [place] [address] Platelets #/vol (Bld) 210 thou/cmm Normal 182-[address] [facility] Comment on above: Performed By: #### 2 5VD1 #### [facility] [address] [place] [address] RBC #/vol (Bld) 4.56 mil/cmm Normal 3.93-5.22 [facility] Comment on above: Performed By: #### 2 5VD1 #### [facility] [address] [place] [address] RDW SD 40.4 fl Normal 36.4-46.3 [facility] Comment on above: Performed By: #### 2 5VD1 #### [facility] [address] [place] [address] Seg Neutrophil 55.1 % Normal [facility] Comment on above: Performed By: #### 2 5VD1 #### [facility] [address] [place] [address] WBC #/vol (Bld) 5.01 thou/cmm Normal 3.98-10.04 [facility] Comment on above: Performed By: #### 2 5VD1 #### [facility] [address] [place] [address] Lipase Bloodon 03-08-2018 Lipase Blood 82 U/L Normal 73-393 [facility] Comment on above: Performed By: #### 2 5VD1 #### [facility] [address] [place] [address] MDRD GFRon 03-08-2018 GFR/1.73 sq M predicted among non-blacks MDRD vol rate/area (S/P/Bld) mL/min/{1.73_m2} Normal >60mL/min/1 .73m2 [facility] Comment on above: Result Comment: If t he patient is , multiply the result by 1.210. Performed By: #### 2 5VD1 #### [facility] [address] [place] [id number] Amylase Bloodon 03-07-2018 Amylase enzyme act/vol 16 U/L Low 25-115 [facility] Comment on above: Performed By: #### A MY #### [facility] [address] [place] [address] CRPon 03-07-2018 CRP mass conc 1.10 mg/dL High 0.00-0.30 [facility] Comment on above: Performed By: #### 2 5VD1 #### [facility] [address] [place] [address] Comprehensive Panelon 2017 ALP enzyme act/vol 79 U/L Normal 46-116 [facility] Comment on above: Performed By: #### 2 5VD1 #### [facility] [address] [place] [address] Bilirubin mass conc 0.5 mg/dL Normal 0.2-1.0 [facility] Comment on above: Performed By: #### 2 5VD1 #### [facility] [address] [place] [address] Protein mass conc 7.0 g/dL Normal 6.4-8.2 [facility] Comment on above: Performed By: #### 2 5VD1 #### [facility] [address] [place] [address] AST enzyme act/vol 48 U/L High 9-37 [facility] Comment on above: Performed By: #### 2 5VD1 #### [facility] [address] [place] [address] Creatinine mass conc 0.59 mg/dL Normal 0.51-0.95 [facility] Comment on above: Performed By: #### 2 5VD1 #### [facility] [address] [place] [address] ALT enzyme act/vol 57 U/L Normal 12-78 [facility] Comment on above: Performed By: #### 2 5VD1 #### [facility] [address] [place], [place] [address] Albumin mass conc 3.9 g/dL Normal 3.4-5.0 [facility] Comment on above: Performed By: #### 2 5VD1 #### [facility] [address] [place], [place] [address] Anion gap molar conc 7 mmol/L Low 8-16 [facility] Comment on above: Performed By: #### 2 5VD1 #### [facility] [address] [place], [place] [address] CO2 molar conc 31 mmol/L Normal 21-32 [facility] Comment on above: Performed By: #### 2 5VD1 #### [facility] [address] [place], [place] [address] Glucose mass conc 80 mg/dL Normal 70-99 [facility] Comment on above: Performed By: #### 2 5VD1 #### [facility] [address] [place], [place] [address] Calcium mass conc 8.8 mg/dL Normal 8.5-10.1 [facility] Comment on above: Performed By: #### 2 5VD1 #### [facility] [address] [place], [place] [address] Urea nitrogen mass conc 6 mg/dL Low 7-18 [facility] Comment on above: Performed By: #### 2 5VD1 #### [facility] [address] [place], [place] [address] Chloride molar conc 105 mmol/L Normal 98-107 [facility] Comment on above: Performed By: #### 2 5VD1 #### [facility] [address] [place], [place] [address] Potassium molar conc 3.8 mmol/L Normal 3.5-5.1 [facility] Comment on above: Performed By: #### 2 5VD1 #### [facility] [address] [place], [place] [address] Sodium molar conc 139 mmol/L Normal 136-145 [facility] Comment on above: Performed By: #### 2 5VD1 #### [facility] [address] [place] [address] Hemogram/Diffon 03-07-2018 Abs Immature Grans 0.02 thou/cmm Normal 0.00-0.05 [facility] Comment on above: Performed By: #### C BCD1 #### [facility] [address] [place] [address] Abs. Baso 0.02 thou/cmm Normal 0.01-0.08 [facility] Comment on above: Performed By: #### C BCD1 #### [facility] [address] [place] [address] Abs. Creek 0.37 thou/cmm Normal 0.27-0.70 [facility] Comment on above: Performed By: #### C BCD1 #### [facility] [address] [place] [address] Abs. Neut (ANC) 3.03 thou/cmm Normal 1.56-6.13 [facility] Comment on above: Performed By: #### C BCD1 #### [place] [address] Basophils/100 WBC (Bld) 0.3 % Normal [facility] Comment on above: Performed By: #### C BCD1 #### [place] [address] Eosinophils #/vol (Bld) 0.16 thou/cmm Normal 0.00-0.31 [facility] Comment on above: Performed By: #### C BCD1 #### [place] [address] Eosinophils/100 WBC (Bld) 2.7 % Normal [facility] Comment on above: Performed By: #### C BCD1 #### [facility] [address] [place] [address] Erythrocyte distribution width Ratio (RBC) 13.6 % Normal 11.7-14.4 [facility] Comment on above: Performed By: #### C BCD1 #### [place] [address] Hematocrit Volume Fraction (Bld) 39.2 % Normal 34.1-44.9 [facility] Comment on above: Performed By: #### C BCD1 #### [facility] [address] [place] [address] Hemoglobin mass conc (Bld) 12.5 g/dL Normal 11.2-15.7 [facility] Comment on above: Performed By: #### C BCD1 #### [facility] [address] [place] [address] Immature Grans 0.30 % Normal [facility] Comment on above: Performed By: #### C BCD1 #### [facility] [address] [place] [address] Lymphocytes #/vol (Bld) 2.29 thou/cmm Normal 1.18-3.74 [facility] Comment on above: Performed By: #### C BCD1 #### [facility] [address] [place] [address] Lymphocytes/100 WBC (Bld) 38.9 % Normal [facility] Comment on above: Performed By: #### C BCD1 #### [facility] [address] [place] [address] MCH Entitic mass (RBC) 26.4 pg Normal 25.6-32.2 [facility] Comment on above: Performed By: #### C BCD1 #### [facility] [address] [place] [address] MCHC mass conc (RBC) 31.9 % Normal 31.6-34.8 [facility] Comment on above: Performed By: #### C BCD1 #### [facility] [address] [place] [address] MCV Entitic volume (RBC) 82.7 fL Normal 79.4-94.8 [facility] Comment on above: Performed By: #### C BCD1 #### [facility] [address] [place] [address] Monocytes/100 WBC (Bld) 6.3 % Normal [facility] Comment on above: Performed By: #### C BCD1 #### [facility] [address] [place] [address] Platelet mean volume Entitic volume (Bld) 10.2 fL Normal 9.4-12.3 [facility] Comment on above: Performed By: #### C BCD1 #### [facility] [address] [place] [address] Platelets #/vol (Bld) 234 thou/cmm Normal 182-[address] [facility] Comment on above: Performed By: #### C BCD1 #### [facility] [address] [place] [address] RBC #/vol (Bld) 4.74 mil/cmm Normal 3.93-5.22 [facility] Comment on above: Performed By: #### C BCD1 #### [facility] [address] [place] [address] RDW SD 40.5 fl Normal 36.4-46.3 [facility] Comment on above: Performed By: #### C BCD1 #### [place] [address] Seg Neutrophil 51.5 % Normal [facility] Comment on above: Performed By: #### C BCD1 #### [facility] [address] [place] [address] WBC #/vol (Bld) 5.89 thou/cmm Normal 3.98-10.04 [facility] Comment on above: Performed By: #### C BCD1 #### [place] [address] Lipase Bloodon 03-07-2018 Lipase Blood 53 U/L Low 73-393 [facility] Comment on above: Performed By: #### L IP #### [place] [address] MDRD GFRon 03-07-2018 GFR/1.73 sq M predicted among non-blacks MDRD vol rate/area (S/P/Bld) mL/min/{1.73_m2} Normal >60mL/min/1 .73m2 [facility] Comment on above: Result Comment: If t he patient is , multiply the result by 1.210. Performed By: #### 2 5VD1 #### [place] [address] Sed Rateon 03-07-2018 Sed Rate 14 mm/hr Normal 0-20 [facility] Comment on above: Result Comment: TIFFANI ECTED: Previous result = 13, verified at 16:57 on 03/07/18. Performed By: #### E SR #### [facility] [address] [place] [address] Basic Metabolic Panelon 02-18 Calcium mass conc 9.3 mg/dL Normal 8.4-10.4 [facility] Comment on above: Performed By: #### H EMOG, BMP3, LIPA4 ####[facility] [place] [address] Glucose mass conc 113 mg/dL High 70-100 [facility] Comment on above: Performed By: #### H EMOG, BMP3, LIPA4 ####[facility] [place] [address] Urea nitrogen mass conc 12 mg/dL Normal 7-20 [facility] Comment on above: Performed By: #### H EMOG, BMP3, LIPA4 ####[facility] [place] [address] Anion gap 3 molar conc 9 Normal [facility] Comment on above: Performed By: #### H EMOG, BMP3, LIPA4 ####[facility] [place] [address] CO2 molar conc 27 mmol/L Normal 22-30 [facility] Comment on above: Performed By: #### H EMOG, BMP3, LIPA4 ####[facility] [place] [address] Creatinine mass conc 0.67 mg/dL Normal 0.52-1.25 [facility] Comment on above: Performed By: #### H EMOG, BMP3, LIPA4 ####[facility] [place] [address] GFR/1.73 sq M predicted among blacks MDRD vol rate/area (S/P/Bld) mL/min/{1.73_m2} Normal >60 [facility] Comment on above: Performed By: #### H EMOG, BMP3, LIPA4 ####[facility] [id number] [place] [address] GFR/1.73 sq M predicted among non-blacks MDRD vol rate/area (S/P/Bld) mL/min/{1.73_m2} Normal >60 [facility] Comment on above: Result Comment: Sour ce- MDRD equation with creatinine calibration to IDMS(NKDEP) eGFR not recommended for drug dose adjustment Performed By: #### H EMOG, BMP3, LIPA4 ####[facility] [id number] [place] [address] Potassium molar conc 3.7 mmol/L Normal 3.5-5.1 [facility] Comment on above: Performed By: #### H EMOG, BMP3, LIPA4 ####[facility] [id number] [place] [address] Chloride molar conc 105 mmol/L Normal 98-107 [facility] Comment on above: Performed By: #### H EMOG, BMP3, LIPA4 ####[facility] [id number] [place] [address] Sodium molar conc 142 mmol/L Normal 137-145 [facility] Comment on above: Performed By: #### H EMOG, BMP3, LIPA4 ####[facility] [id number] [place] [address] CT Abdomen/Pelvis w/ Contras ton 03-06-2018 CT Abdomen/Pelvis w/ Contrast Patient Name: CASIMIRO LIU CT Exam Date/Time 03/06/2018 09:50:[address] Abdomen/Pelvis w/ IV Contrast (IV Onl Ordering Physician ELSA HOLDER Accession Number [id number] CPT4 Codes 55815 (CT Abdomen/Pelvis w/ IV Contrast (IV Onl), Q9967 () Reason For Exam ABDOMINAL PAIN Report Examination: CT abdomen and pelvis Clinical Indication: Abdominal pain, inability to urinate Comparison: None Findings: Serial [address] images were obtained from the lung bases through the abdomen and pelvis after administration of 75 mL Isovue-370 intravenous but without oral contrast. Coronal and sagittal images were reconstructed. Examination was viewed in multiple windows. Visualized lower lungs are clear. Liver demonstrates diffuse fatty infiltration, no focal lesion. Cholecystectomy clips with absent gallbladder. Spleen is enlarged measuring 14.2 cm anterior to posterior and 15.5 cm cranial caudal with increased volume. Kidneys demonstrate minimal cortical lobularity with trace atrophy. No definite urologic calcification. No hydronephrosis. The pancreas demonstrates some slight heterogeneity and is slightly hypodense along the head and body and slightly more dense along the tibial which is slightly more hypertrophic. Findings could represent a mild pancreatitis. Subtle lesion at the tibial not entirely excluded. Small subcentimeter lymph nodes within the retroperitoneum in the para-aortic region, none appear pathologically enlarged. No lymphadenopathy, ascites, or free intraperitoneal air. Large and small bowel normal in caliber without distention or pericolonic inflammation. No gross diverticular disease. No evidence of appendicitis, appendix well visualized, unremarkable. Intrauterine device noted along the lower uterine segment but central within the uterus. Bladder does not appear significantly distended. There is a small amount of contrast, bladder jet on the left. There is a small fat-containing ventral hernia just superior to the umbilicus measuring 1.9 x 1.7 cm. Bone windows demonstrate degenerative changes lower lumbar spine and hips. Impression: 1. Nonspecific slight heterogeneity of the pancreas which is slightly hypodense along the head and body and slightly more dense and prominent at the tail. Correlate with amylase and lipase to exclude pancreatitis. Prominence of the tail of the pancreas may represent normal anatomic variant although a mass is not entirely excluded in this region. Recommend outpatient follow-up MRI with and without gadolinium contrast. 2. Diffuse fatty infiltration of the liver. 3. Splenomegaly. 4. Small fat-containing ventral hernia just superior to the umbilicus 1.9 x 1.7 cm. 5. Intrauterine device along the lower uterine segment. Optimal positioning is slightly more superior. Correlate with expected positioning. 6. No evidence of urologic calcification, hydronephrosis or significant bladder distention. Report Dictated on Final Dictated: 03/06/2018 10:21 am Dictating Physician: VENTIMIGLMD HSIEH ANTHONY J Signed Date and Time: 03/06/2018 10:31 am Signed by: MD DAVIS ANTHONY J Transcribed Date and Time: 03/06/2018 10:21 Normal [facility] Hemogramon 03-06-2018 Erythrocyte distribution width Auto Ratio (RBC) 14.6 % High 11.5-14.5 [facility] Comment on above: Performed By: #### H EMOG, BMP3, LIPA4 ####[address] [place] [address] Hematocrit Auto Volume Fraction (Bld) 36.9 % Normal 35.0-47.0 [facility] Comment on above: Performed By: #### H EMOG, BMP3, LIPA4 ####[address] [place] [address] Hemoglobin mass conc (Bld) 12.4 g/dL Normal 11.7-16.0 [facility] Comment on above: Performed By: #### H EMOG, BMP3, LIPA4 ####[facility] [place] [address] MCH Auto Entitic mass (RBC) 26.9 pg Normal 26.0-34.0 [facility] Comment on above: Performed By: #### H EMOG, BMP3, LIPA4 ####[facility] [place] [address] MCHC Auto mass conc (RBC) 33.8 % Normal 32.0-36.0 [facility] Comment on above: Performed By: #### H EMOG, BMP3, LIPA4 ####[address] [place] [address] MCV Auto Entitic volume (RBC) 79.8 fL Normal 79.0-98.0 [facility] Comment on above: Performed By: #### H EMOG, BMP3, LIPA4 ####[facility] [place] [address] Platelet mean volume Auto Entitic volume (Bld) 8.0 fL Normal 7.4-10.4 [facility] Comment on above: Performed By: #### H EMOG, BMP3, LIPA4 ####[address] [place] [address] Platelets Auto #/vol (Bld) 205 10*3/uL Normal 140-440 [facility] Comment on above: Performed By: #### H EMOG, BMP3, LIPA4 ####[address] [place] [address] RBC Auto #/vol (Bld) 4.62 10*6/uL Normal 3.80-5.20 [facility] Comment on above: Performed By: #### H EMOG, BMP3, LIPA4 ####[address] [place] [address] WBC Auto #/vol (Bld) 5.0 10*3/uL Normal 3.6-10.7 [facility] Comment on above: Performed By: #### H EMOG, BMP3, LIPA4 ####[address] [address] Lipaseon 03-06-2018 Lipase enzyme act/vol 21 U/L Low 23-300 [facility] Comment on above: Performed By: #### H EMOG, BMP3, LIPA4 ####[address] [place] [address] Urinalysis,Macroon 8 Appearance Clear Normal Clear [facility] Comment on above: Performed By: #### U AMAC, UAMIC ####[address] [place] [address] Bilirubin,Ur 1 + Normal Negative [facility] Comment on above: Performed By: #### U AMAC, UAMIC ####[address] [place] [address] Color Yellow Normal Lt. Yellow [facility] Comment on above: Performed By: #### U AMAC, UAMIC ####[address] [place] [address] Glucose Ql (U) NEG (Normal) Normal Negative [facility] Comment on above: Performed By: #### U AMAC, UAMIC ####[address] [place] [address] Ketone,Urine 1+ (small) Normal Negative [facility] Comment on above: Performed By: #### U AMAC, UAMIC ####[address] [place] [address] Leukocytes 2 + Normal Negative [facility] Comment on above: Performed By: #### U AMAC, UAMIC ####[address] [place] [address] Nitrites Positive Normal Negative [facility] Comment on above: Performed By: #### U AMAC, UAMIC ####[address] [place] [address] Occult Blood,Ur 1+(5-10) Normal Negative [facility] Comment on above: Performed By: #### U AMAC, UAMIC ####[address] [address] pH Test strip (U) 5.0 Normal 5.0-8.0 [facility] Comment on above: Performed By: #### U AMAC, UAMIC ####[address] [place] [address] Specific Jeremiah,Urine 1.030 Normal 1.005-1.030 [facility] Comment on above: Performed By: #### U AMAC, UAMIC ####[address] [place] [address] Total Protein,Urine 1+ (30) Normal Negative [facility] Comment on above: Performed By: #### U AMAC, UAMIC ####[address] [place] [address] Urobilinogen 1.0 mg/dL Normal 0-1 [facility] Comment on above: Performed By: #### U AMAC, UAMIC ####[address] [place] [address] Urinalysis,Microscopicon Bacteria Few (1-5) Normal Negative [facility] Comment on above: Performed By: #### U AMAC, UAMIC ####[facility] [place] [address] Ca Oxylate Crystals Moderate (6-50) Normal Negative [facility] Comment on above: Performed By: #### U AMAC, UAMIC ####[address] [place] [address] Epithelial Cells 11 - 25 Normal 3-5 [facility] Comment on above: Performed By: #### U AMAC, UAMIC ####[address] [place] [address] Mucous Threads Moderate Normal Negative [facility] Comment on above: Performed By: #### U AMAC, UAMIC ####[address] [place] [address] RBC LM.HPF #/area (Urine sed) Negative Normal 0-2 [facility] Comment on above: Performed By: #### U AMAC, UAMIC ####[address] [place] [address] WBC LM.HPF #/area (Urine sed) 11 - 25 Normal 0-5 [facility] Comment on above: Performed By: #### U AMAC, UAMIC ####[address] [place] [address] Comprehensive Panelon 2017 ALP enzyme act/vol 74 U/L Normal 46-116 [facility] Comment on above: Performed By: #### P 14 #### [facility] [address] [place], [place] [address] Protein mass conc 7.2 g/dL Normal 6.4-8.2 [facility] Comment on above: Performed By: #### P 14 #### [facility] [address] [place], [place] [address] Bilirubin mass conc 0.5 mg/dL Normal 0.2-1.0 [facility] Comment on above: Performed By: #### P 14 #### [facility] [address] [place], [place] [address] ALT enzyme act/vol 40 U/L Normal 12-78 [facility] Comment on above: Performed By: #### P 14 #### [facility] [address] [place], [place] [address] Creatinine mass conc 0.57 mg/dL Normal 0.51-0.95 [facility] Comment on above: Performed By: #### P 14 #### [facility] [address] [place], [place] [address] AST enzyme act/vol 25 U/L Normal 9-37 [facility] Comment on above: Performed By: #### P 14 #### [facility] [address] [place] [address] Albumin mass conc 4.0 g/dL Normal 3.4-5.0 [facility] Comment on above: Performed By: #### P 14 #### [facility] [address] [place], [place] [address] Glucose mass conc 97 mg/dL Normal 70-99 [facility] Comment on above: Performed By: #### P 14 #### [facility] [address] [place], [place] [address] Urea nitrogen mass conc 10 mg/dL Normal 7-18 [facility] Comment on above: Performed By: #### P 14 #### [facility] [address] [place], [place] [address] Anion gap molar conc 11 mmol/L Normal 8-16 [facility] Comment on above: Performed By: #### P 14 #### [facility] [address] [place], [place] [address] Calcium mass conc 8.7 mg/dL Normal 8.5-10.1 [facility] Comment on above: Performed By: #### P 14 #### [facility] [address] [place] [address] CO2 molar conc 28 mmol/L Normal 21-32 [facility] Comment on above: Performed By: #### P 14 #### [facility] [address] [place] [address] Chloride molar conc 106 mmol/L Normal 98-107 [facility] Comment on above: Performed By: #### P 14 #### [facility] [address] [place] [address] Potassium molar conc 4.1 mmol/L Normal 3.5-5.1 [facility] Comment on above: Performed By: #### P 14 #### [facility] [address] [place] [address] Sodium molar conc 141 mmol/L Normal 136-145 [facility] Comment on above: Performed By: #### P 14 #### [facility] [address] [place] [address] Hemogramon 01-25-2018 Erythrocyte distribution width Ratio (RBC) 13.0 % Normal 11.7-14.4 [facility] Comment on above: Performed By: #### C BC1 #### [facility] [address] [place] [address] Hematocrit Volume Fraction (Bld) 41.4 % Normal 34.1-44.9 [facility] Comment on above: Performed By: #### C BC1 #### [facility] [address] [place] [address] Hemoglobin mass conc (Bld) 13.5 g/dL Normal 11.2-15.7 [facility] Comment on above: Performed By: #### C BC1 #### [facility] [address] [place] [address] MCH Entitic mass (RBC) 27.6 pg Normal 25.6-32.2 [facility] Comment on above: Performed By: #### C BC1 #### [facility] [address] [place] [address] MCHC mass conc (RBC) 32.6 % Normal 31.6-34.8 [facility] Comment on above: Performed By: #### C BC1 #### [facility] [address] [place] [address] MCV Entitic volume (RBC) 84.5 fL Normal 79.4-94.8 [facility] Comment on above: Performed By: #### C BC1 #### [facility] [address] [place] [address] Platelet mean volume Entitic volume (Bld) 11.2 fL Normal 9.4-12.3 [facility] Comment on above: Performed By: #### C BC1 #### [facility] [address] [place] [address] Platelets #/vol (Bld) 315 thou/cmm Normal 182-[address] [facility] Comment on above: Performed By: #### C BC1 #### [facility] [address] [place] [address] RBC #/vol (Bld) 4.90 mil/cmm Normal 3.93-5.22 [facility] Comment on above: Performed By: #### C BC1 #### [facility] [address] [place] [address] RDW SD 39.8 fl Normal 36.4-46.3 [facility] Comment on above: Performed By: #### C BC1 #### [place] [address] WBC #/vol (Bld) 8.25 thou/cmm Normal 3.98-10.04 [facility] Comment on above: Performed By: #### C BC1 #### [place] [address] Lipid Profileon 01-25-2018 Cholesterol in LDL mass conc 71 mg/dL Normal [facility] Comment on above: Result Comment: No C AD and with fewer than 2 CAD risk factors <160 mg/dL No CAD but with 2 or more CAD risk factors <130 mg/dL Definite CAD or other atherosclerotic disease <100 mg/dL Performed By: #### L IPD2 #### [facility] [address] [place] [address] Cholesterol in LDL/Cholesterol in HDL mass ratio 1.6 Normal 0.6-3.6 [facility] Comment on above: Result Comment: LDL, VLDL,LDL/HDL, Invalid if Triglyceride >400 Performed By: #### L IPD2 #### [place] [address] Cholesterol in VLDL mass conc 15 mg/dL Normal <50 Desired [facility] Comment on above: Performed By: #### L IPD2 #### [facility] [address] [place], [place] [address] Triglyceride mass conc 75 mg/dL Normal 0-149 [facility] Comment on above: Result Comment: < 20 0 Desirable Result invalid if not a fasting specimen. Performed By: #### L IPD2 #### [facility] [address] [place], [place] [address] Cholesterol in HDL mass conc 45 mg/dL Normal >40 [facility] Comment on above: Performed By: #### L IPD2 #### [facility] [address] [place], [place] [address] Cholesterol.total/Cho lesterol in HDL mass ratio 2.9 {ratio} Normal 1.8-5.3 [facility] Comment on above: Performed By: #### L IPD2 #### [facility] [address] [place], [place] [address] Cholesterol mass conc 131 mg/dL Normal 0-199 [facility] Comment on above: Result Comment: <200 Desirable 200-240 Borderline >240 High Performed By: #### L IPD2 #### [facility] [address] [place], [place] [address] MDRD GFRon 01-25-2018 GFR/1.73 sq M predicted among non-blacks MDRD vol rate/area (S/P/Bld) mL/min/{1.73_m2} Normal >60mL/min/1 .73m2 [facility] Comment on above: Result Comment: If t he patient is , multiply the result by 1.210. Performed By: #### G FR #### [facility] [address] [place], [place] [address] TSH, 3rd generationon 2017 TSH, 3rd generation 0.692 uIU/mL Normal 0.358-3.740 [facility] Comment on above: Performed By: #### T SH3 #### [facility] [address] [place], [place] [address] Total 25-OH Vitamin Don 08- Total 25-OH Vitamin D 23.8 ng/mL Low 30.0-100.0 [facility] Comment on above: Performed By: #### 2 5VD1 #### [facility] [address] [place] [id number] Vital Signs Date Time Vital Sign Value Performing Clinician Pablito lockett 10-24-2023 16:02-0400 Body height 162.6 cm Adri Hodgson MD Work Phone: [facility] 10-24-2023 16:02-0400 Body mass index (BMI) [Ratio] 39.96 kg/m2 Adri Hodgson MD Work Phone: [facility] 10-24-2023 16:02-0400 Body temperature 97.2 [degF] Adri Hodgson MD Work Phone: [facility] 10-24-2023 16:02-0400 Body weight 105.6 kg Adri Hodgson MD Work Phone: [facility] 10-24-2023 16:02-0400 Diastolic blood pressure 100 mm[Hg] Adri Hodgson MD Work Phone: [facility] 10-24-2023 16:02-0400 Heart rate 88 /min Adri Hodgson MD Work Phone: [email or web address] 10-24-2023 16:02-0400 Systolic blood pressure 170 mm[Hg] Adri Hodgson MD Work Phone: [facility] 05-31-2023 12:45-0500 Body temperature 98.49 [degF] Adri Hodgson MD Work Phone: [email or web address] 05-31-2023 12:45-0500 Diastolic blood pressure 105 mm[Hg] Adri Hodgson MD Work Phone: [email or web address] 05-31-2023 12:45-0500 Heart rate 97 /min Adri Hodgson MD Work Phone: [email or web address] 05-31-2023 12:45-0500 Respiratory rate 20 /min Adri Hodgson MD Work Phone: [email or web address] 05-31-2023 12:45-0500 SaO2% (BldA) [Mass fraction] 94 % Adri Hodgson MD Work Phone: [facility] 05-31-2023 12:45-0500 Systolic blood pressure 173 mm[Hg] Adri Hodgson MD Work Phone: [facility] 04-11-2023 08:57-0400 Body temperature 96.91 [degF] Adri Hodgson MD Work Phone: [facility] 04-11-2023 08:57-0400 Diastolic blood pressure 114 mm[Hg] Adri Hodgson MD Work Phone: [facility] 04-11-2023 08:57-0400 Heart rate 87 /min Adri Hodgson MD Work Phone: [facility] 04-11-2023 08:57-0400 Respiratory rate 18 /min Adri Hodgson MD Work Phone: [facility] 04-11-2023 08:57-0400 SaO2% (BldA) [Mass fraction] 98 % Adri Hodgson MD Work Phone: [facility] 04-11-2023 08:57-0400 Systolic blood pressure 190 mm[Hg] Adri Hodgson MD Work Phone: [facility] 01-06-2023 09:27-0400 Body height 162.6 cm Daniella Mihalik DO Work Phone: [facility] 01-06-2023 09:27-0400 Body weight 102.78 kg Daniella Mihalik DO Work Phone: [facility] 01-06-2023 09:27-0400 Diastolic blood pressure 82 mm[Hg] Daniella Mihalik DO Work Phone: [facility] 01-06-2023 09:27-0400 Systolic blood pressure 140 mm[Hg] Daniella Mihalik DO Work Phone: [facility] 10-08-2022 10:30-0400 Body height 162.6 cm Selin Ma MD Work Phone: [facility] 10-08-2022 10:30-0400 Body mass index (BMI) [Ratio] 35.1 kg/m2 Selin Ma MD Work Phone: [facility] 10-08-2022 10:30-0400 Body temperature 97.81 [degF] Selin Ma MD Work Phone: [facility] 10-08-2022 10:30-0400 Body weight 92.76 kg Selin Ma MD Work Phone: [facility] 10-08-2022 10:30-0400 Diastolic blood pressure 81 mm[Hg] Selin Ma MD Work Phone: [facility] 10-08-2022 10:30-0400 Heart rate 81 /min Selin Ma MD Work Phone: [facility] 10-08-2022 10:30-0400 Systolic blood pressure 134 mm[Hg] Selin Ma MD Work Phone: [facility] 09-21-2022 13:44-0400 Body height 162.6 cm Kt Watson MD Work Phone: [facility] 09-21-2022 13:44-0400 Body weight 92.99 kg Kt Watson MD Work Phone: [facility] 09-21-2022 13:44-0400 Diastolic blood pressure 91 mm[Hg] Kt Watson MD Work Phone: [facility] 09-21-2022 13:44-0400 Systolic blood pressure 176 mm[Hg] Kt Watson MD Work Phone: [facility] 01-06-2022 15:21-0400 Body height 162.6 cm Kt Watson MD Work Phone: [facility] 01-06-2022 15:21-0400 Body weight 95.25 kg Kt Watson MD Work Phone: [facility] 01-06-2022 15:21-0400 Diastolic blood pressure 78 mm[Hg] Kt Watson MD Work Phone: [facility] 01-06-2022 15:21-0400 Systolic blood pressure 138 mm[Hg] Kt Watson MD Work Phone: [facility] Encounters Encounter Date Encounter Type Care Provider Facility Start: 03-26-2024 End: 03-26-2024 Refill Adri Hodgson MD Work Phone: [facility] Comment on above: Anxiety and depressi on Start: 03-25-2024 End: 03-26-2024 Refill Adri Hodgson MD Work Phone: [facility] Comment on above: Primary hypertension Start: 12-08-2023 Telephone encounter Kt Munoz MD Work Phone: [facility] General Obstetrics and Gynecology Comment on above: Missed Appointment ( No show) Start: 10-24-2023 End: 10-24-2023 Office outpatient visit 15 minutes Chanel Laboy MD Work Phone: [facility] Comment on above: Anxiety and depressi on (Primary Dx); Primary hypertension; Encounter for screening for HIV; Encounter for HCV screening test for low risk patient Start: 10-24-2023 End: 10-24-2023 ambulatory CHANEL LABOY [facility] Start: 05-31-2023 ambulatory Britta Harry RN [facility] Clinical Communication Start: 05-31-2023 Patient encounter procedure Britta Harry RN [facility] Communication Start: 05-31-2023 End: 05-31-2023 Emergency department patient visit [facility] Comment on above: Influenza A (Primary Dx); Acute cough; Strain of thoracic back region Start: 04-11-2023 End: 04-11-2023 Emergency department patient visit [facility] Comment on above: COVID-19 (Primary Dx ) Start: 02-15-2023 Telephone encounter Adri Garza i, MD Work Phone: [facility] Start: 01-24-2023 End: 01-24-2023 Patient encounter procedure Kt Watson MD Work Phone: [facility] Obstetrics and Gynecology Comment on above: High grade squamous intraepithelial lesion (HGSIL), grade 3 DIONNE, on biopsy of cervix (Primary Dx); S/P LEEP Start: 01-06-2023 Telephone encounter Kt Munoz MD Work Phone: [facility] Obstetrics [facility] Gynecology Comment on above: Return To Work Lette r Start: 01-06-2023 End: 01-06-2023 Patient encounter procedure Daniella Hidalgo DO Work Phone: [facility] Obstetrics [facility] Gynecology Comment on above: High grade squamous intraepithelial lesion (HGSIL), grade 3 DIONNE, on biopsy of cervix (Primary Dx); HPV vaccine counseling; Pre-op exam Start: 01-06-2023 End: 01-06-2023 Preprocedural examination done Daniella Hidalgo DO Work Phone: [facility] Work Phone: Start: 01-06-2023 End: 01-06-2023 ambulatory DANIELLA HIDALGO Facility:[facility] Start: 01-06-2023 Encounter for other preprocedural examination DANIELLA HIDALGO [facility] Start: 01-03-2023 Telephone encounter Kt Munoz MD Work Phone: [facility] Obstetrics [facility] Gynecology Comment on above: Results Start: 12-24-2022 Patient encounter status Kt Watson MD Work Phone: [facility] Work Phone: Start: 12-24-2022 End: 12-24-2022 ambulatory KT WATSON Facility:[facility] Start: 12-03-2022 Patient encounter procedure [facility] Provider [facility] Department Start: 12-02-2022 Patient encounter procedure [facility] Provider [facility] Start: 10-12-2022 Documentation procedure Mammog katie Coordinator [facility] Start: 10-12-2022 Letter encounter Mammography Coordinator [facility] NOT [facility] Start: 10-12-2022 Telephone encounter Kt Munoz MD Work Phone: [facility] Obstetrics [facility] Gynecology Comment on above: Orders Start: 10-08-2022 ambulatory Janet Barnes RN [facility] Clinical Communication Start: 10-08-2022 Patient encounter procedure Janet Barnes RN [facility] Clinical Communication Start: 10-08-2022 End: 10-08-2022 Office outpatient visit 15 minutes Sharona Thomas MD Work Phone: [facility] Comment on above: Eye injury, unspecif ied laterality, initial encounter (Primary Dx) Start: 09-21-2022 End: 09-21-2022 Patient encounter procedure Kt Watson MD Work Phone: [facility] Comment on above: Screening for malign ant neoplasm of cervix (Primary Dx); Encounter for gynecological examination (general) (routine) without abnormal findings; Encounter for routine checking of intrauterine contraceptive device (IUD); Encounter for screening mammogram for malignant neoplasm of breast Start: 09-21-2022 End: 09-21-2022 Patient encounter status Kt Watson MD Work Phone: [facility] Start: 2022 Refill Jose Armando Guzmán MD Work Phone: [facility] Comment on above: Anxiety disorder, un specified Start: 03-05-2022 ambulatory Marcello L[facility]pez [facility] Start: 01-06-2022 End: 01-06-2022 Patient encounter procedure Kt Watson MD Work Phone: [facility] Comment on above: Breakthrough bleedin g with IUD (Primary Dx); Pelvic cramping Start: 08-11-2021 ambulatory Marcello López [facility] Start: 07-28-2021 ambulatory Marcello López [facility] Start: 07-28-2021 End: 07-28-2021 Subsequent hospital visit by physician Sharona Thomas MD Work Phone: [facility] Start: 07-21-2021 End: 07-21-2021 [facility] Start: 07-10-2021 ambulatory Marcello [facility] Start: 06-28-2021 End: 07-04-2021 Evaluation and management of inpatient [facility] Start: 09-27-2018 Patient encounter procedure ESTRADA (REGIONAL SALES LEADER) LINZEY Facility:[facility] Start: 09-26-2018 Patient encounter procedure ESTRADA (REGIONAL SALES LEADER) LINZEY Facility:[facility] Start: 06-19-2018 End: 06-20-2018 Patient encounter procedure ESTRADA (REGIONAL SALES LEADER) LINZEY Facility:[facility] Start: 05-12-2018 End: 05-13-2018 Patient encounter procedure ESTRADA (REGIONAL SALES LEADER) LINZEY Facility:[facility] Start: 05-01-2018 Patient encounter procedure ESTRADA (REGIONAL SALES LEADER) LINZEY Facility:[facility] Start: 04-28-2018 Patient encounter procedure KATIA WATSON Facility:[facility] Start: 03-27-2018 End: 03-28-2018 Patient encounter procedure ESTRADA (REGIONAL SALES LEADER) LINZEY Facility:[facility] Start: 03-15-2018 End: 03-15-2018 Patient encounter procedure ESTRADA (REGIONAL SALES LEADER) LINZEY Facility:[facility] Start: 03-08-2018 End: 03-09-2018 Emergency department patient visit ESTRADA (REGIONAL SALES LEADER) LINZEY Facility:[facility] Start: 03-07-2018 End: 03-07-2018 Emergency department patient visit ESTRADA (REGIONAL SALES LEADER) LINZEY Facility:[facility] Start: 03-07-2018 End: 03-08-2018 Patient encounter procedure ESTRADA (REGIONAL SALES LEADER) LINZEY Facility:[facility] Start: 03-06-2018 [facility] Start: 01-25-2018 End: 01-26-2018 Patient encounter procedure ESTRADA (REGIONAL SALES LEADER) LINZEY Facility:[facility] Start: 01-23-2018 Emergency department patient visit UNKNOWN ZULLY [facility] Start: 10-20-2017 End: 10-20-2017 Patient encounter procedure KATIA WATSON Facility:[facility] Start: 10-19-2017 Patient encounter procedure KATIA Ferris COLA Facility:[facility] Start: 10-17-2017 Patient encounter procedure KATIA Ferris LALO Facility:[facility] Start: 09-09-2017 Patient encounter status Kt Watson MD Work Phone: [facility] Work Phone: Procedures Date Procedure Procedure Detail Performing Clinician Start: 05-31-2023 Basic metabolic pane l calcium total Yony Morrison [employer] Work Phone: Start: 05-31-2023 Ecg routine ecg w/le ast 12 lds trcg only w/o i&r Yony Grahamner [employer] Work Phone: Start: 05-31-2023 Radiologic exam ches t 2 views Yony Grahamner [employer] Work Phone: Start: 05-31-2023 Urinalysis complete panel - Urine Yony Grahamner [employer] Work Phone: Start: 05-31-2023 Urine test visual color cmprsn meths Yony Grahamner [employer] Work Phone: Start: 05-31-2023 Urnls dip stick/tabl et reagent auto microscopy Yony Morrison [employer] Work Phone: Start: 05-31-2023 SARS-COV-2, FLU A/B, AND RSV COMBO Yony Grahamner [employer] Work Phone: Start: 04-11-2023 SARS-COV-2, FLU A/B, AND RSV COMBO Sharlene Mann PA-C Work Phone: Start: 04-11-2023 Radiologic exam ches t single view Sharlene Mann PA-C Work Phone: Start: 10-11-2022 Mammography Kt Watson MD Work Phone: Start: 09-21-2022 Microscopic observat ion [Identifier] in Cervix by Cyto stain Janet Barnes RN Plan of Treatment Date Care Activity Detail Author Start: 2040 RSV Immunization aged 60 or older (1 - 1-dose 60+ series) RSV Immunization aged 60 or older (1 - 1-dose 60+ series) [facility] Start: 09-08-2033 DTaP/Tdap/Td Vaccines (3 - Td or Tdap) DTaP/Tdap/Td Vaccines (3 - Td or Tdap) [facility] Start: 2030 Zoster Vaccines (1 of 2) Zoster Vaccines (1 of 2) [facility] Start: 02-02-2028 DTaP/Tdap/Td vaccine (2 - Td or Tdap) DTaP/Tdap/Td vaccine (2 - Td or Tdap) [facility] Start: 02-02-2028 DTaP/Tdap/Td Vaccines (2 - Td or Tdap) DTaP/Tdap/Td Vaccines (2 - Td or Tdap) [facility] Start: 02-02-2028 Urine microalbumin profile DTaP,Tdap,Td Vaccine (2 - Td or Tdap) [facility] Start: 09-22-2027 HPV TESTING HPV TESTING [facility] Start: 09-22-2027 PAP TESTING PAP TESTING [facility] Start: 09-21-2025 Screening for malignant neoplasm of cervix [facility] Start: 06-30-2024 Diabetes mellitus screening Diabetes Screening [facility] Start: 06-30-2024 Diabetes screen Diabetes screen [facility] Start: 04-25-2024 Depression Monitoring Depression Monitoring [facility] Start: 02-19-2024 COVID-19 Vaccine ( season) COVID-19 Vaccine ( season) [facility] Start: 02-19-2024 Influenza vaccination [facility] Start: 11-23-2023 End: 11-23-2023 Patient encounter procedure 11/23/2023 3:15 PM EDT Office Visit [address] [address] Jamila Euceda MD [address] [place] [address] [facility] Start: 10-24-2023 End: 10-23-2024 25-hydroxyvitamin D3 [Mass/volume] in Serum or Plasma Vitamin D Deficiency Screening (Vit D 25) Lab Routine Anxiety and depression Expected: 10/24/2023 (Approximate), Expires: 10/23/2024 [facility] Comment on above: Expected: 10/24/2023 (Approximate), Expi res: 10/23/2024 Start: 10-24-2023 End: 10-23-2024 CBC W Auto Differential panel - Blood CBC auto differential Lab Routine Primary hypertension Expected: 10/24/2023 (Approximate), Expires: 10/23/2024 [facility] Work Phone: Comment on above: Expected: 10/24/2023 (Approximate), Expi res: 10/23/2024 Start: 10-24-2023 End: 10-23-2024 Comprehensive metabolic 1998 panel - Serum or Plasma Comprehensive metabolic panel Lab Routine Primary hypertension Expected: 10/24/2023 (Approximate), Expires: 10/23/2024 [facility] Comment on above: Expected: 10/24/2023 (Approximate), Expi res: 10/23/2024 Start: 10-24-2023 End: 10-23-2024 Hepatitis C virus Ab [Presence] in Serum or Plasma by Immunoassay Hepatitis C antibody Lab Routine Encounter for HCV screening test for low risk patient Expected: 10/24/2023 (Approximate), Expires: 10/23/2024 [facility] Comment on above: Expected: 10/24/2023 (Approximate), Expi res: 10/23/2024 Start: 10-24-2023 End: 10-23-2024 HIV 1+2 Ab+HIV1 p24 Ag [Presence] in Serum or Plasma by Immunoassay HIV-1 and HIV-2 Antigen-Antibody Screen Lab Routine Encounter for screening for HIV Expected: 10/24/2023 (Approximate), Expires: 10/23/2024 [facility] Comment on above: Expected: 10/24/2023 (Approximate), Expi res: 10/23/2024 Start: 10-24-2023 End: 10-23-2024 Lipid 1996 panel - Serum or Plasma Lipid panel Lab Routine Primary hypertension Expected: 10/24/2023 (Approximate), Expires: 10/23/2024 [facility] Comment on above: Expected: 10/24/2023 (Approximate), Expi res: 10/23/2024 Start: 10-24-2023 End: 10-23-2024 Microalbumin/Creatinine panel in random Urine Microalbumin / creatinine, urine ratio Lab Routine Primary hypertension Expected: 10/24/2023 (Approximate), Expires: 10/23/2024 [facility] Comment on above: Expected: 10/24/2023 (Approximate), Expi res: 10/23/2024 Start: 10-12-2023 Mammography MAMMOGRAM [facility] Start: 10-12-2023 Screening for malignant neoplasm of breast Mammogram Screening [facility] Start: 09-22-2023 Screening for malignant neoplasm of cervix Cervical Cancer Screening [facility] Start: 04-09-2023 Depresssion Monitoring Depresssion Monitoring [facility] Start: 03-07-2023 End: 03-07-2023 Patient encounter procedure 03/07/2023 3:30 PM EDT Office Visit [address] [address] Ortiz Costa MD [address] [place] [address] [facility] Start: 02-18-2023 COVID-19 Vaccine ( season) COVID-19 Vaccine ( season) [facility] Start: 02-18-2023 Influenza vaccination [facility] Start: 01-06-2023 End: 01-07-2024 SONOHYSTEROGRAPHY (SIS) US WHI SONOHYSTEROGRAPHY (SIS) US I Anc Imaging Routine Pre-op exam Expected: 01/06/2023, Expires: 01/07/2024 [facility] Work Phone: Comment on above: Expected: 01/06/2023, Expires: Start: 09-09-2022 PAP TESTING PAP TESTING [facility] Start: 07-21-2022 Creatinine measurement Creatinine monitoring [facility] Start: 07-21-2022 Potassium monitoring Potassium monitoring [facility] Start: 07-10-2022 Depression Screen Depression Screen [facility] Start: 07-10-2022 Influenza vaccination Flu vaccine (#1) [facility] Comment on above: Postponed from 02/18/2021 (Patient Refus ed) Start: 02-18-2022 Influenza vaccination INFLUENZA (#1) [facility] Start: 08-11-2021 End: 08-11-2021 Patient encounter procedure 08/11/2021 Office Visit Family Medicine [facility]cello [facility]pez [facility] [address] [facility] [place] [address] [facility] Start: 11-24-2020 COVID-19 Vaccine (2 - Booster for Michela series) COVID-19 Vaccine (2 - Booster for Michela series) [facility] Start: 2020 Lipid panel Lipid screen [facility] Start: 2020 Mammography MAMMOGRAM [facility] Start: 2020 Screening for malignant neoplasm of breast Mammogram [facility] Start: 2010 HPV TESTING HPV TESTING [facility] Start: 2010 Screening for malignant neoplasm of cervix [facility] Start: 2001 Screening for malignant neoplasm of cervix Pap smear [facility] Start: 09-20-1999 Hepatitis A Vaccines (1 of 2 - Risk 2-dose series) Hepatitis A Vaccines (1 of 2 - Risk 2-dose series) [facility] Start: 09-20-1999 Hepatitis B Vaccine (1 of 3 - 19+ 3-dose series) Hepatitis B Vaccine (1 of 3 - 19+ 3-dose series) [facility] Start: 09-20-1999 Hepatitis B Vaccines (1 of 3 - 19+ 3-dose series) Hepatitis B Vaccines (1 of 3 - 19+ 3-dose series) [facility] Start: 09-20-1999 Urine microalbumin profile DTAP,TDAP,TD (1 - Tdap) [facility] Start: 1998 HEPATITIS C SCREENING HEPATITIS C SCREENING [facility] Start: 1998 Hepatitis C screening Hepatitis C Screening [facility] Start: 1998 HIV SCREENING HIV SCREENING [facility] Start: 1998 HIV screening HIV Screening [facility] Start: 09-20-1995 HIV screening HIV screen [facility] Start: 1981 Hepatitis A Vaccines (1 of 2 - Risk 2-dose series) Hepatitis A Vaccines (1 of 2 - Risk 2-dose series) [facility] Start: 1981 MMR Vaccines (1 of 1 - Standard series) MMR Vaccines (1 of 1 - Standard series) [facility] Start: 1981 Varicella vaccination Varicella Vaccines (1 of 2 - 2-dose childhood series) [facility] Start: 1980 HEPATITIS B (1 of 3 - 3-dose series) HEPATITIS B (1 of 3 - 3-dose series) [facility] Start: 1980 Hepatitis B Vaccines (1 of 3 - 3-dose series) Hepatitis B Vaccines (1 of 3 - 3-dose series) [facility] Start: 1980 Hepatitis C screening Hepatitis C screen [facility] Start: 1980 HIV screening HIV Screening [facility] Start: 1980 Lipid panel Lipid Panel [facility] 9vhpv vacc 2/3 dose sched im use HPV VACCINE, 9-VALENT (GARDASIL 9) Immunization/Injection Routine High grade squamous intraepithelial lesion (HGSIL), grade 3 DIONNE, on biopsy of cervix HPV vaccine counseling Ordered: 01/06/2023 [facility] Work Phone: Comment on above: Ordered: 01/06/2023 End: 11-11-2023 DEL DIAGNOSTIC LEFT DEL DIAGNOSTIC LEFT Radiology Routine Abnormal mammogram 1 Occurrences starting 10/12/2022 until 11/11/2023 [facility] Work Phone: Comment on above: 1 Occurrences starting 10/12/2022 until 11/11/2023 End: 10-21-2023 DEL SCREENING DEL SCREENING Radiology Routine Encounter for screening mammogram for malignant neoplasm of breast 1 Occurrences starting 09/21/2022 until 10/21/2023 [facility] Work Phone: Comment on above: 1 Occurrences starting 09/21/2022 until 10/21/2023 PAP TEST PAP TEST Lab Rou judy Screening for malignant neoplasm of cervix Ordered: 09/21/2022 [facility] Work Phone: Comment on above: Ordered: 09/21/2022 PELVIC US WHI PELVIC US WHI An c Imaging Routine Breakthrough bleeding with IUD Pelvic cramping Ordered: 01/06/2022 [facility] Work Phone: Comment on above: Ordered: 01/06/2022 End: 11-11-2023 US BREAST LTD LEFT US BREAST LTD LEFT Radiology Routine Abnormal mammogram 1 Occurrences starting 10/12/2022 until 11/11/2023 [facility] Work Phone: Comment on above: 1 Occurrences starting 10/12/2022 until 11/11/2023 [facility] Immunizations Immunization Date Immunization Notes Care Provider Delilah moss 09-29-2020 Michela SARS-CoV-2 Vaccination Jose Armando Guzmán MD Work Phone: [facility] 02-01-2018 tetanus toxoid, redu kalen diphtheria toxoid, and acellular pertussis vaccine, adsorbed Sharona Thomas MD Work Phone: [facility] 08-30-2017 influenza virus vaccine, unspecified formulation Kt Watson MD Work Phone: [facility] NEGATED: Highlighted row has not occurred!01-06-2023 Human Papillomavirus 9-valent vaccine Daniella Hidalgo DO Work Phone: [facility] Work Phone: Comment on above: Deferred: Immunizati on Series Payers Date Payer Category Payer Unknown 2017 Unknown [employer] PPO OOS [id number] 2017-Present [phone] [address] [place] [address] PPO [id number] 2017 Unknown [id number] 1980 Unknown [id number] 1980 Unknown [id number] 2.840.1.847122.3.579.2.278 1980 Unknown [id number] 2..840.1.672111.3.579.2.278 1980 Unknown [id number] 2.16.840.1.642855.3.579.2.278 1980 Unknown [id number] 2.16.840.1.201525.3.579.2.278 1980 Unknown [id number] 2.16.840.1.235160.3.579.2.278 1980 Unknown [id number] 2.16840.1.569664.3.579.2.278 1980 Unknown [id number] 2.16.840.1.744883.3.579.2.278 1980 Unknown [id number] 2.16840.1.184008.3.579.2.278 1980 Unknown [id number] 2.16840.1.316205.3.579.2.278 1980 Unknown [id number] 2.840.1.125388.3.579.2.278 1980 Unknown [id number] 2.840.1.286031.3.579.2.278 1980 Unknown [id number] 2.840.1.135751.3.579.2.278 1980 Unknown [id number] 2.840.1.745594.3.579.2.278 1980 Unknown [id number] 2.840.1.776604.3.579.2.278 1980 Unknown [id number] 2.16840.1.059061.3.579.2.278 1980 Unknown [id number] 2.840.1.795816.3.579.2.278 1980 Unknown [id number] 2.16840.1.715651.3.579.2.278 1980 Unknown [id number] 2.16840.1.021926.3.579.2.668 1980 Unknown [id number] 2.16840.1.650768.3.579.2.668 1980 Unknown [id number] 2.16.840.1.962496.3.579.2.8 1980 Unknown [id number] 2.16.840.1.024318.3.579.2.668 1980 Unknown [id number] 2.16.840.1.397114.3.579.2.668 1980 Unknown [id number] [id number]8 Social History Date Type Detail Facility Start: 06-28-2021 End: 10-24-2023 Tobacco smoking status CTIS Ex-smoker [facility] End: 08-29-2018 History of tobacco use Current smoker [employer] Work Phone: Start: 06-28-2021 End: 10-24-2023 Tobacco use and exposure Smokeless tobacco non-user [employer] Work Phone: Start: 07-28-2021 End: 10-24-2023 Alcohol intake Ex-drinker (finding) [facility] Work Phone: Start: 07-10-2021 History SDOH Alcohol Comment rarely [employer] Work Phone: Start: 07-10-2021 History SDOH Financial 3 [facility] Work Phone: Start: 07-10-2021 End: 10-08-2022 History SDOH Food Worry 1 [facility] Work Phone: Start: 07-10-2021 End: 10-08-2022 History SDOH Transport Med 2 [employer] Work Phone: Start: 09-11-2016 Tobacco Comment occasional [employer] Work Phone: Start: 1980 Sex Assigned At Not on file [facility] Work Phone: Start: 12-27-2021 End: 10-08-2022 Exposure to SARS-CoV-2 (event) Not sure [facility] End: 08-29-2018 History of tobacco use Cigarette Smoker [facility] Start: 03-07-2018 End: 10-24-2023 Cigarettes smoked current (pack per day) - Reported 0.5 [facility] Start: 01-06-2022 End: 01-24-2023 Alcohol intake Current drinker of alcohol (finding) [facility] Start: 03-07-2018 History SDOH Alcohol Comment occasionally [facility] Start: 10-08-2022 History SDOH Financial 4 [facility] Start: 12-24-2022 End: 10-24-2023 Tobacco use panel [facility] Adult Depression Screening Assessment 6 [facility] How hard is it for y ou to pay for the very basics like food, housing, medical care, and heating Not very hard [facility] (I/We) worried wheth er (my/our) food would run out before (I/we) got money to buy more. Never true [facility] Medical Equipment Procedure Code Equipment Code Equipment Origin al Text Equipment Identifier Dates fluorescein 0.6 MG ophthalmic strip 1 strip [id number] Start: 10-08-2022 End: 10-08-2022 Clinical Notes 03-07-2018 to 03-26-2024 Telephone Encounter - Autumn Oliveira MA - 03/26/2024 3:15 PM EDTTelephone Encounter - Autumn Oliveira MA - 03/26/2024 3:15 PM EDTTelephone Encounter - Autumn Oliveira MA - 03/26/2024 10:16 AM EDT Note Date & Type Note Facility 03-26-2024 Telephone encounter Note Last office visit: 10/24/23 Next office visit: no follow up, was supposed to come back 11/21/23 [facility] 03-26-2024 Miscellaneous Notes Last office visit: 10/24/23 Next office visit: no follow up, was supposed to come back 11/21/23 documented in this encounter [facility] 03-26-2024 Telephone encounter Note Last office visit: 10/24/23 Next office visit: none- per ANN MARIE follow up 4 weeks ( 11/21/23) [facility] 03-26-2024 Miscellaneous Notes Last office visit: 10/24/23 Next office visit: none- per ANN MARIE follow up 4 weeks ( 11/21/23) documented in this encounter [facility] 12-08-2023 Telephone encounter Note Patient did not arrive for her scheduled appointment on 12/05/23. Called patient but mailbox is full. A missed appointment letter sent by certified mail; tracking number [id number]. [facility] 12-08-2023 Miscellaneous Notes Patient did not arrive for her scheduled appointment on 12/05/23. Called patient but mailbox is full. A missed appointment letter sent by certified mail; tracking number [id number]. documented in this encounter [facility] 10-24-2023 Evaluation + Plan note Associated Problem(s): Anxiety and depression Chronic issue, uncontrolled, subsequent encounter. Will try zoloft, had success with this in the past. Advised continue with therapy, is established with a therapist - inquire if they can do CBT for sleep issues. May also need to explore possible DMITRY due to sleep issues as states above. [facility] 10-24-2023 Miscellaneous Notes Associated Problem(s): Anxiety and depression Chronic issue, uncontrolled, subsequent encounter. Will try zoloft, had success with this in the past. Advised continue with therapy, is established with a therapist - inquire if they can do CBT for sleep issues. May also need to explore possible DMITRY due to sleep issues as states above. Associated Problem(s): Primary hypertension Chronic issue, uncontrolled, subsequent encounter. Pt has elevated readings for the past year at different offices, likely long standing untreated HTN. Due to elevation in office today without a secondary reason, will initiate a low dose lisinopril today, get HTN labs as below. Would also suggest exploring DMITRY as a cause if unable to attain control. Advise lifestyle and diet changes - increase walking, DASH, low salt diet. documented in this encounter [facility] 10-24-2023 Miscellaneous Notes Associated Problem(s): Anxiety and depression Chronic issue, uncontrolled, subsequent encounter. Will try zoloft, had success with this in the past. Advised continue with therapy, is established with a therapist - inquire if they can do CBT for sleep issues. May also need to explore possible DMITRY due to sleep issues as states above. Associated Problem(s): Primary hypertension Chronic issue, uncontrolled, subsequent encounter. Pt has elevated readings for the past year at different offices, likely long standing untreated HTN. Due to elevation in office today without a secondary reason, will initiate a low dose lisinopril today, get HTN labs as below. Would also suggest exploring DMITRY as a cause if unable to attain control. Advise lifestyle and diet changes - increase walking, DASH, low salt diet. documented in this encounter [facility] 10-24-2023 Evaluation + Plan note Associated Problem(s): Primary hypertension Chronic issue, uncontrolled, subsequent encounter. Pt has elevated readings for the past year at different offices, likely long standing untreated HTN. Due to elevation in office today without a secondary reason, will initiate a low dose lisinopril today, get HTN labs as below. Would also suggest exploring DMITRY as a cause if unable to attain control. Advise lifestyle and diet changes - increase walking, DASH, low salt diet. [facility] 10-24-2023 History of Present illness Narrative Images from the original note were not included. [facility] [address] [facility] [address] Dept: [phone] Dept Loc: [phone] Visit type: Established patient Reason for Visit: Annual Exam (Check up ) Assessment and Plan Problem List Items Addressed This Visit Circulatory Primary hypertension Overview Current Assessment & Plan Chronic issue, uncontrolled, subsequent encounter. Pt has elevated readings for the past year at different offices, likely long standing untreated HTN. Due to elevation in office today without a secondary reason, will initiate a low dose lisinopril today, get HTN labs as below. Would also suggest exploring DMITRY as a cause if unable to attain control. Advise lifestyle and diet changes - increase walking, DASH, low salt diet. Relevant Medications lisinopril 10 MG tablet Other Relevant Orders CBC auto differential Comprehensive metabolic panel Microalbumin / creatinine, urine ratio Lipid panel Other Anxiety and depression - Primary Current Assessment & Plan Chronic issue, uncontrolled, subsequent encounter. Will try zoloft, had success with this in the past. Advised continue with therapy, is established with a therapist - inquire if they can do CBT for sleep issues. May also need to explore possible DMITRY due to sleep issues as states above. Relevant Medications sertraline (Zoloft) 25 MG tablet Other Relevant Orders Vitamin D Deficiency Screening (Vit D 25) Other Visit Diagnoses Encounter for screening for HIV Relevant Orders HIV-1 and HIV-2 Antigen-Antibody Screen Encounter for HCV screening test for low risk patient Relevant Orders Hepatitis C antibody Other care gaps - has OBGYN is going to discuss mammo with them. 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 Follow up in about 4 weeks (around 11/21/2023) for depression and HTN. orders and follow up as documented in EMR, lab results reviewed with patient, reviewed medications and side effects in detail Subjective HTN Has nto been seen in our office for some time now. Has HTN but was not on any BP meds. Had elevated BPs in the past, elevated in her prior appt at other offices. Bps high 140s, even 170-190. Not on meds. Does use ibuprofen occasionally but not daily use. No excessive caffeine, no current smoking is former, no alcohol. Not on any special diets. Feels has gained weight which made her BP worse now. No chest pain, palpitations, SOB, dyspnea on exertion, or swelling. No vision issues, headache. Had an EKG when in the ED on 05/2023, was unremarkable. Depression Had episodes in the past. Has tried zoloft, lexapro. Did stop meds for 6 year span, restarted them a few years ago and was on lexapro. On lexapro and tried both 10 mg and 20 mg, neither help. Does have hx of family stressors in the past that causes some stress back then. PHQ 9 is 18 GAD7 is 19. Is on lexapro. No SI/HI, has family support and feels otherwise hopeful. Allergies Allergen Reactions Seasonal Ic [Cholestatin] Itching Social History Tobacco Use Smoking status: Former Types: Cigarettes Quit date: 06/20/2016 Years since quittin.3 Smokeless tobacco: Never Tobacco comments: Quit smoking: occasional Substance Use Topics Alcohol use: Not Currently Objective BP (!) 170/100 Pulse 88 Temp 36.2 C (97.2 F) (Temporal) Ht 5' 4 (1.626 m) Wt 232 lb 12.8 oz (106 kg) LMP 10/24/2023 BMI 39.96 kg/m Physical Exam Vitals and nursing note reviewed. Constitutional: Appearance: Normal appearance. Cardiovascular: Rate and Rhythm: Normal rate and regular rhythm. Pulses: Normal pulses. Heart sounds: Normal heart sounds. Pulmonary: Effort: Pulmonary effort is normal. Breath sounds: Normal breath sounds. Abdominal: General: Abdomen is flat. Bowel sounds are normal. Palpations: Abdomen is soft. Musculoskeletal: Cervical back: Neck supple. Skin: General: Skin is warm and dry. Neurological: Mental Status: She is alert. Data Reviewed and Summarized Labs: Imaging/Testing: ADRI HODGSON MD Patient was able to ambulate safely to the examination room. Provider was not notified of possible fall risk Pt asked if they have been to specialist,been in ER /hospitalized or had testing since last visit. No documented in this encounter [facility] 10-24-2023 History of Present illness Narrative Images from the original note were not included. [facility] [address] [facility] [address] Dept: [phone] Dept Loc: [phone] Visit type: Established patient Reason for Visit: Annual Exam (Check up ) Assessment and Plan Problem List Items Addressed This Visit Circulatory Primary hypertension Overview Current Assessment & Plan Chronic issue, uncontrolled, subsequent encounter. Pt has elevated readings for the past year at different offices, likely long standing untreated HTN. Due to elevation in office today without a secondary reason, will initiate a low dose lisinopril today, get HTN labs as below. Would also suggest exploring DMITRY as a cause if unable to attain control. Advise lifestyle and diet changes - increase walking, DASH, low salt diet. Relevant Medications lisinopril 10 MG tablet Other Relevant Orders CBC auto differential Comprehensive metabolic panel Microalbumin / creatinine, urine ratio Lipid panel Other Anxiety and depression - Primary Current Assessment & Plan Chronic issue, uncontrolled, subsequent encounter. Will try zoloft, had success with this in the past. Advised continue with therapy, is established with a therapist - inquire if they can do CBT for sleep issues. May also need to explore possible DMITRY due to sleep issues as states above. Relevant Medications sertraline (Zoloft) 25 MG tablet Other Relevant Orders Vitamin D Deficiency Screening (Vit D 25) Other Visit Diagnoses Encounter for screening for HIV Relevant Orders HIV-1 and HIV-2 Antigen-Antibody Screen Encounter for HCV screening test for low risk patient Relevant Orders Hepatitis C antibody Other care gaps - has OBGYN is going to discuss mammo with them. 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 Follow up in about 4 weeks (around 11/21/2023) for depression and HTN. orders and follow up as documented in EMR, lab results reviewed with patient, reviewed medications and side effects in detail Subjective HTN Has nto been seen in our office for some time now. Has HTN but was not on any BP meds. Had elevated BPs in the past, elevated in her prior appt at other offices. Bps high 140s, even 170-190. Not on meds. Does use ibuprofen occasionally but not daily use. No excessive caffeine, no current smoking is former, no alcohol. Not on any special diets. Feels has gained weight which made her BP worse now. No chest pain, palpitations, SOB, dyspnea on exertion, or swelling. No vision issues, headache. Had an EKG when in the ED on 05/2023, was unremarkable. Depression Had episodes in the past. Has tried zoloft, lexapro. Did stop meds for 6 year span, restarted them a few years ago and was on lexapro. On lexapro and tried both 10 mg and 20 mg, neither help. Does have hx of family stressors in the past that causes some stress back then. PHQ 9 is 18 GAD7 is 19. Is on lexapro. No SI/HI, has family support and feels otherwise hopeful. Allergies Allergen Reactions Seasonal Ic [Cholestatin] Itching Social History Tobacco Use Smoking status: Former Types: Cigarettes Quit date: 06/20/2016 Years since quittin.3 Smokeless tobacco: Never Tobacco comments: Quit smoking: occasional Substance Use Topics Alcohol use: Not Currently Objective BP (!) 170/100 Pulse 88 Temp 36.2 C (97.2 F) (Temporal) Ht 5' 4 (1.626 m) Wt 232 lb 12.8 oz (106 kg) LMP 10/24/2023 BMI 39.96 kg/m Physical Exam Vitals and nursing note reviewed. Constitutional: Appearance: Normal appearance. Cardiovascular: Rate and Rhythm: Normal rate and regular rhythm. Pulses: Normal pulses. Heart sounds: Normal heart sounds. Pulmonary: Effort: Pulmonary effort is normal. Breath sounds: Normal breath sounds. Abdominal: General: Abdomen is flat. Bowel sounds are normal. Palpations: Abdomen is soft. Musculoskeletal: Cervical back: Neck supple. Skin: General: Skin is warm and dry. Neurological: Mental Status: She is alert. Data Reviewed and Summarized Labs: Imaging/Testing: ADRI HODGSON MD Patient was able to ambulate safely to the examination room. Provider was not notified of possible fall risk Pt asked if they have been to specialist,been in ER /hospitalized or had testing since last visit. No Type: INDIRECT I have discussed the care of this patient with the resident . I have reviewed the med list,problem list and history. I have reviewed the note which reflects the information we discussed and agree with the assessment and plan Brief summary of history: and additional hogan elements of the treatment plan include new dx htn-working on issues but started meds documented in this encounter [facility] 10-24-2023 Instructions Adri Hodgson MD - 10/24/2023 4:00 PM EDT Cognitive behavioral therapy for insomnia or sleep issues, please inquire if your therapist can do this. documented in this encounter [facility] 10-24-2023 Instructions Adri Hodgson MD - 10/24/2023 4:00 PM EDT Cognitive behavioral therapy for insomnia or sleep issues, please inquire if your therapist can do this. documented in this encounter [facility] 05-31-2023 Telephone encounter Note Noted, thank you. Agree with plan to be reevaluated. Sounds like she will go to the ED or a UC today. Would suggest covid testing herself again if not already done so ADRI HODGSON MD Family Medicine PGY-3 05/31/23 4:03 PM [facility] 05-31-2023 Miscellaneous Notes Noted, thank you. Agree with plan to be reevaluated. Sounds like she will go to the ED or a UC today. Would suggest covid testing herself again if not already done so ADRI OHDGSON MD Family Medicine PGY-3 05/31/23 4:03 PM S: the patient is calling the [facility] about pneumonia B: 05/17/2023 minute clinic A: the patient reports that she was diagnosed with pneumonia on 05/17/2023 and was prescribed 5 days of Azithromycin and prednisone. She has completed both of these. She states that her symptoms began again on Tuesday and today she feels terrible. She states she ias having coughing fits, rib pain that radiates around to her back, body aches, facial pain and pressure, fevers, and wheezing and trouble breathing. She states she has been using the albuterol inhaler that was prescribed but this is almost out. Her highest fever is 101*F - this is controlled with motrin. R: I do not see any available appointments today or tomorrow that I can schedule her. She states she will go to the [place] ED vs returning to for this. She will call back if she has continued or worsening symptoms. Reason for Disposition Patient sounds very sick or weak to the triager Protocols used: Pneumonia Follow-up [id number] documented in this encounter [facility] 05-31-2023 Emergency department Note EMERGENCY DEPARTMENT ENCOUNTER Pt Name: Casimiro Liu Birthdate 1980 Date of evaluation: 05/31/2023 ED Provider: MICHAEL Germain CNP I have evaluated this patient on my own, per my scope of practice with an attending physician available for consultation. CHIEF COMPLAINT Chief Complaint Patient presents with Cough HISTORY OF PRESENT ILLNESS (Location/Symptom, Timing/Onset, Context/Setting, Quality, Duration, Modifying Factors, Severity) Note limiting factors. I wore appropriate PPE for the entirety of this encounter. HPI Casimiro Liu is a 42 y.o. who presents to the emergency department with chief complaint of with cough, right flank pain, right posterior rib cage pain. Patient states he was seen at an urgent care 2 weeks ago and diagnosed with pneumonia, she states she was given antibiotics and steroids and an inhaler states she felt better for couple days but now having pain, and sinus congestion. She states she was just on antibiotics before that for a sinus infection. Nursing Notes were reviewed. Limitations to history: None Outside historians: None REVIEW OF SYSTEMS Review of Systems Constitutional: Negative for activity change, appetite change, chills and fever. HENT: Positive for congestion, postnasal drip, rhinorrhea, sinus pressure and sinus pain. Negative for nosebleeds and trouble swallowing. Eyes: Negative for pain and visual disturbance. Respiratory: Positive for cough and shortness of breath. Negative for chest tightness. Cardiovascular: Negative for chest pain. Gastrointestinal: Negative for abdominal pain, diarrhea, nausea and vomiting. Genitourinary: Positive for flank pain. Negative for dysuria, hematuria, pelvic pain, vaginal bleeding, vaginal discharge and vaginal pain. Musculoskeletal: Negative for arthralgias, back pain and myalgias. Skin: Negative for rash and wound. Neurological: Negative for syncope, weakness, light-headedness and headaches. Hematological: Negative for adenopathy. Psychiatric/Behavioral: Negative for agitation and confusion. All other systems reviewed and are negative. Pertinent positives and negatives as per HPI. PAST MEDICAL HISTORY Past Medical History: Diagnosis Date Anxiety Depression Hypertension SURGICAL HISTORY Past Surgical History: Procedure Laterality Date CHOLECYSTECTOMY CURRENT MEDICATIONS Previous Medications CARBOXYMETHYLCELLULOSE (DRY EYE RELIEF) 1 % OPHTHALMIC SOLUTION DROPPERETTE Apply 2 drops to right eye 2 times daily as needed for dry eyes for up to 5 days. ESCITALOPRAM (LEXAPRO) 10 MG TABLET TAKE 1 TABLET BY MOUTH EVERY DAY IBUPROFEN 600 MG TABLET TAKE 1 TABLET BY MOUTH 4 TIMES A DAY UNTIL GONE LEVONORGESTREL (MIRENA, 52 MG,) 20 MCG/DAY IUD 1 each by IntraUTERine route Once. ALLERGIES Seasonal ic [cholestatin] FAMILY HISTORY Family History Problem Relation Name Age of Onset No Known Problems Sister Heart disease Maternal Grandfather No Known Problems Father No Known Problems Brother No Known Problems Mother SOCIAL HISTORY Social History Socioeconomic History Marital status: Single Tobacco Use Smoking status: Former Types: Cigarettes Quit date: 06/20/2016 Years since quittin.9 Smokeless tobacco: Never Tobacco comments: Quit smoking: occasional Substance and Sexual Activity Alcohol use: Not Currently Drug use: No Social Determinants of Health Financial Resource Strain: Low Risk (10/08/2022) Overall Financial Resource Strain (CARDIA) Difficulty of Paying Living Expenses: Not very hard Food Insecurity: No Food Insecurity (10/08/2022) Hunger Vital Sign Worried About Running Out of Food in the Last Year: Never true Ran Out of Food in the Last Year: Never true Transportation Needs: No Transportation Needs (10/08/2022) PRAPARE - Transportation Lack of Transportation (Medical): No Lack of Transportation (Non-Medical): No SCREENINGS PHYSICAL EXAM ED Triage Vitals [05/31/23 1245] Temp Heart Rate Resp BP 36.9 C (98.5 F) 97 20 (!) 173/105 SpO2 Temp Source Heart Rate Source Patient Position 94 % Temporal Monitor -- BP Location FiO2 (%) -- -- Physical Exam Vitals and nursing note reviewed. Constitutional: General: She is not in acute distress. Appearance: Normal appearance. She is not ill-appearing or toxic-appearing. HENT: Head: Normocephalic and atraumatic. Right Ear: Tympanic membrane and external ear normal. Left Ear: Tympanic membrane and external ear normal. Mouth/Throat: Mouth: Mucous membranes are moist. Pharynx: Oropharynx is clear. Eyes: Extraocular Movements: Extraocular movements intact. Conjunctiva/sclera: Conjunctivae normal. Pupils: Pupils are equal, round, and reactive to light. Cardiovascular: Rate and Rhythm: Normal rate and regular rhythm. Pulses: Normal pulses. Heart sounds: Normal heart sounds. No murmur heard. Pulmonary: Effort: Pulmonary effort is normal. No respiratory distress. Breath sounds: Normal breath sounds. No stridor. No wheezing or rhonchi. Abdominal: Comments: The abdomen is soft, nondistended and nontender. There is no rebound tenderness or guarding. Bowel sounds are normal. Musculoskeletal: General: No swelling, deformity or signs of injury. Normal range of motion. Cervical back: Normal range of motion and neck supple. No rigidity or tenderness. Comments: Mild right CVA tenderness. Lymphadenopathy: Cervical: No cervical adenopathy. Skin: General: Skin is warm and dry. Capillary Refill: Capillary refill takes less than 2 seconds. Coloration: Skin is not jaundiced or pale. Findings: No bruising. Neurological: General: No focal deficit present. Mental Status: She is alert and oriented to person, place, and time. Mental status is at baseline. Psychiatric: Mood and Affect: Mood normal. DIAGNOSTIC RESULTS Procedures/EKG: EKG was reviewed by myself. Physician EKG interpretation can be found in [facility] RADIOLOGY (Per Emergency Physician): Interpretation per the Radiologist below, if available at the time of this note: XR chest 2 views Final Result No acute cardiopulmonary abnormality. Report Dictated on Electronically Signed By: Jaclyn Little MD Electronically Signed Date/Time: 05/31/2023 1:51 PM EST ED BEDSIDE ULTRASOUND: Performed by ED Physician - none LABS: Labs Reviewed SARS-COV-2, FLU A/B, AND RSV COMBO - Abnormal Result Value SARS-CoV-2 Not Detected Respiratory Syncytial Virus Not Detected Influenza A Detected (*) Influenza B Not Detected Narrative: Methodology: real-time, RT-PCR The SARS-CoV-2, Flu A/B, and RSV Combo assay is intended for in vitro diagnostic use under the FDA Emergency Use Authorization (EUA). This test has not been FDA cleared or approved. In compliance with this authorization, please visit www.fda.gov/media/744909/download or www.fda.gov/media/537740/download to access the applicable information sheets. COMPLETE URINALYSIS - Abnormal Color, Urine Yellow Clarity, Urine Slightly Cloudy (*) pH, Urine 7.5 Leukocytes, Urine Negative Nitrite, Urine Negative Protein, Urine 20 (*) Glucose, Urine Normal Bilirubin, Urine Negative Ketones, Urine Negative Urobilinogen, Urine 2 (*) Blood, Urine Negative RBC, Urine 0-2 WBC, Urine 0-2 Squamous Epithelial, Urine 11-25 (*) Bacteria, Urine Few (*) Mucus, Urine Few Amorphous Crystals, Urine Few (*) SPECIFIC GRAVITY OF URINE (NUMERIC) 1.022 BASIC METABOLIC PANEL - Abnormal SODIUM 137 POTASSIUM 4.1 CHLORIDE 100 CARBON DIOXIDE 27 UREA NITROGEN 10 CREATININE 0.61 GLUCOSE 114 (*) CALCIUM 9.6 ANION GAP 10 eGFR >90.0 D-DIMER,QUANTITATIVE - Abnormal D-DIMER, INNOVANCE 0.62 (*) Narrative: Innovance D-Dimer values of <0.50 mg/L FEU can be used in combination with a pre-test probability model (e.g. Well's) to exclude pulmonary embolism (PE) disease, as well as an aid in the diagnosis of deep vein thrombosis (DVT). CBC (HEMOGRAM) - Abnormal Auto WBC 6.9 RBC 4.78 Hemoglobin 13.0 Hematocrit 39.1 MCV 81.7 MCH 27.2 MCHC 33.4 RDW 15.0 (*) Platelets 260 MPV 8.1 TROPONIN I - Normal TROPONIN I <0.012 Narrative: Patients with high levels of Biotin oral intake (ie >5 mg/day) may have falsely decreased Troponin levels. COMPLETE URINALYSIS WITH REFLEX TO CULTURE Narrative: The following orders were created for panel order Urinalysis complete with reflex to Culture. Procedure Abnormality Status --------- ------ Complete Urinalysis[[id number]] Abnormal Final result Please view results for these tests on the individual orders. HCG QUALITATIVE URINE HCG,URINE QUAL Negative Narrative: is the most common reason for HCG in urine, although choriocarcinoma, hydatidiform mole, and certain nontrophoblastic malignancies also result in detectable urinary HCG levels. Sensitivity = 20mIU/mL. HCG QUANTITATIVE BLOOD HCG QUANTITATIVE <2 Narrative: Values in should double every 2 to 3 days for the first 6 weeks. Elevated concentrations of human chorionic gonadotropin (hCG) measured in the first trimester of are observed in normal , but may serve as an indication of chorionic carcinoma, hydatiform mole, or multiple . Decreasing hCG concentrations indicate threatened or missed , recent termination of , ectopic , gestosis or intrauterine . Tiffani- and postmenopausal females may have detectable hCG concentrations (< or = to 14 mIU/mL) due to pituitary production of hCG. Serum follicle-stimulating hormone measurement may aid in ruling-out in this population. Cutoffs of greater than 20 to 45 mIU/mL have been suggested and are method dependent. False-elevations (called phantom human chorionic gonadotropin: hCG) may occur with patients who have human antianimal or heterophilic antibodies. Some specimens may not dilute linearly due to abnormal forms of hCG. Elevated hCG concentrations not associated with are found in patients with other diseases such as tumors of the germ cells, ovaries, bladder, pancreas, stomach, lungs, and liver. This test is not intended to detect or monitor tumors or gestational trophoblastic disease. All other labs were within normal range or not returned as of this dictation. EMERGENCY DEPARTMENT COURSE and DIFFERENTIAL DIAGNOSIS/MDM: Vitals: Vitals: 05/31/23 1245 BP: (!) 173/105 Pulse: 97 Resp: 20 Temp: 36.9 C (98.5 F) TempSrc: Temporal SpO2: 94% Diagnoses as of 05/31/23 1541 Influenza A Acute cough Strain of thoracic back region The patient presented with chief complaint of with chief complaint of with cough, right flank pain, right posterior rib cage pain. Patient states he was seen at an urgent care 2 weeks ago and diagnosed with pneumonia, she states she was given antibiotics and steroids and an inhaler states she felt better for couple days but now having pain, and sinus congestion. She states she was just on antibiotics before that for a sinus infection.. The differential diagnosis associated with this patient's presentation includes pneumonia, thoracic strain, urinary tract infection. Our workup consisted of ordering/reviewing: CBC, BMP, D-dimer, chest x-ray, urinalysis, troponin, EKG. Diagnostic tests considered but not performed: CTA of the chest had a long conversation with the patient, she has no pleuritic pain she is not tachycardic or hypoxic, she has a D-dimer of 0.62 it is extremely unlikely that she has a pulmonary embolus at this low of a D-dimer we discussed doing a CTA of the chest versus just treating her for influenza and having her follow-up with her PCP the patient would prefer to do treatment and forego the CTA of the chest I am amenable to that plan with a D-dimer that is so low. To aid in management, I performed an independent interpretation of EKG(s) EKG per my interpretation shows sinus rhythm with a rate [address] elevation or depression with normal intervals Xray(s) chest x-ray per my interpretation shows normal mediastinum, normal cardiac silhouette no infiltrates or effusions. I discussed their care with none. Consideration for escalation of care with: none. The patient will be discharged on Tamiflu, prednisone, return if worsening. Patient is in agreement with this plan. Medications naproxen (Naprosyn) tablet 500 mg (500 mg Oral Given 05/31/23 1325) REVAL: CRITICAL CARE TIME None CONSULTS: None PROCEDURES: Unless otherwise noted below, none Procedures Patients symptoms are consistent with sepsis, severe sepsis, or septic shock (If yes use .sepsiscoremeasure ): no FINAL IMPRESSION 1. Influenza A 2. Acute cough 3. Strain of thoracic back region DISPOSITION Discharge 05/31/2023 03:34:33 PM PATIENT REFERRED TO: Adri Hodgson MD [address] [place] [id number] Schedule an appointment as soon as possible for a visit in 3 days [facility] [address] [facility] [address] If symptoms worsen DISCHARGE MEDICATIONS: New Prescriptions BENZONATATE (TESSALON) 100 MG CAPSULE Take 1 capsule (100 mg) by mouth in the morning and 1 capsule (100 mg) at noon and 1 capsule (100 mg) before bedtime. Do all this for 7 days. Do not crush or chew.. OSELTAMIVIR (TAMIFLU) 75 MG CAPSULE Take 1 capsule (75 mg) by mouth in the morning and 1 capsule (75 mg) in the evening. Do all this for 5 days. PREDNISONE (DELTASONE) 20 MG TABLET Take 2 tablets (40 mg) by mouth daily for 5 days. (Comment: Please note this report has been produced using speech recognition software and may contain errors related to that system including errors in grammar, punctuation, and spelling, as well as words and phrases that may be inappropriate. If there are any questions or concerns please feel free to contact the dictating provider for clarification.) MICHAEL Germain CNP (electronically signed) Emergency Medicine Provider MICHAEL Germain CNP 05/31/23 5072 Pt was seen at a few weeks ago and diagnosed with pneumonia. Pt was started on oral atb and steroids. States she started to feel better and then Tuesday her pain/cough came back documented in this encounter [facility] 05-31-2023 Emergency department Triage note Pt was seen at a few weeks ago and diagnosed with pneumonia. Pt was started on oral atb and steroids. States she started to feel better and then Tuesday her pain/cough came back [facility] 05-31-2023 Physician Emergency department Note EMERGENCY DEPARTMENT ENCOUNTER Pt Name: Casimiro Liu Birthdate 1980 Date of evaluation: 05/31/2023 ED Provider: MICHAEL Germain CNP I have evaluated this patient on my own, per my scope of practice with an attending physician available for consultation. CHIEF COMPLAINT Chief Complaint Patient presents with Cough HISTORY OF PRESENT ILLNESS (Location/Symptom, Timing/Onset, Context/Setting, Quality, Duration, Modifying Factors, Severity) Note limiting factors. I wore appropriate PPE for the entirety of this encounter. HPI Casimiro Liu is a 42 y.o. who presents to the emergency department with chief complaint of with cough, right flank pain, right posterior rib cage pain. Patient states he was seen at an urgent care 2 weeks ago and diagnosed with pneumonia, she states she was given antibiotics and steroids and an inhaler states she felt better for couple days but now having pain, and sinus congestion. She states she was just on antibiotics before that for a sinus infection. Nursing Notes were reviewed. Limitations to history: None Outside historians: None REVIEW OF SYSTEMS Review of Systems Constitutional: Negative for activity change, appetite change, chills and fever. HENT: Positive for congestion, postnasal drip, rhinorrhea, sinus pressure and sinus pain. Negative for nosebleeds and trouble swallowing. Eyes: Negative for pain and visual disturbance. Respiratory: Positive for cough and shortness of breath. Negative for chest tightness. Cardiovascular: Negative for chest pain. Gastrointestinal: Negative for abdominal pain, diarrhea, nausea and vomiting. Genitourinary: Positive for flank pain. Negative for dysuria, hematuria, pelvic pain, vaginal bleeding, vaginal discharge and vaginal pain. Musculoskeletal: Negative for arthralgias, back pain and myalgias. Skin: Negative for rash and wound. Neurological: Negative for syncope, weakness, light-headedness and headaches. Hematological: Negative for adenopathy. Psychiatric/Behavioral: Negative for agitation and confusion. All other systems reviewed and are negative. Pertinent positives and negatives as per HPI. PAST MEDICAL HISTORY Past Medical History: Diagnosis Date Anxiety Depression Hypertension SURGICAL HISTORY Past Surgical History: Procedure Laterality Date CHOLECYSTECTOMY CURRENT MEDICATIONS Previous Medications CARBOXYMETHYLCELLULOSE (DRY EYE RELIEF) 1 % OPHTHALMIC SOLUTION DROPPERETTE Apply 2 drops to right eye 2 times daily as needed for dry eyes for up to 5 days. ESCITALOPRAM (LEXAPRO) 10 MG TABLET TAKE 1 TABLET BY MOUTH EVERY DAY IBUPROFEN 600 MG TABLET TAKE 1 TABLET BY MOUTH 4 TIMES A DAY UNTIL GONE LEVONORGESTREL (MIRENA, 52 MG,) 20 MCG/DAY IUD 1 each by IntraUTERine route Once. ALLERGIES Seasonal ic [cholestatin] FAMILY HISTORY Family History Problem Relation Name Age of Onset No Known Problems Sister Heart disease Maternal Grandfather No Known Problems Father No Known Problems Brother No Known Problems Mother SOCIAL HISTORY Social History Socioeconomic History Marital status: Single Tobacco Use Smoking status: Former Types: Cigarettes Quit date: 06/20/2016 Years since quittin.9 Smokeless tobacco: Never Tobacco comments: Quit smoking: occasional Substance and Sexual Activity Alcohol use: Not Currently Drug use: No Social Determinants of Health Financial Resource Strain: Low Risk (10/08/2022) Overall Financial Resource Strain (CARDIA) Difficulty of Paying Living Expenses: Not very hard Food Insecurity: No Food Insecurity (10/08/2022) Hunger Vital Sign Worried About Running Out of Food in the Last Year: Never true Ran Out of Food in the Last Year: Never true Transportation Needs: No Transportation Needs (10/08/2022) PRAPARE - Transportation Lack of Transportation (Medical): No Lack of Transportation (Non-Medical): No SCREENINGS PHYSICAL EXAM ED Triage Vitals [12/12/23 1245] Temp Heart Rate Resp BP 36.9 C (98.5 F) 97 20 (!) 173/105 SpO2 Temp Source Heart Rate Source Patient Position 94 % Temporal Monitor -- BP Location FiO2 (%) -- -- Physical Exam Vitals and nursing note reviewed. Constitutional: General: She is not in acute distress. Appearance: Normal appearance. She is not ill-appearing or toxic-appearing. HENT: Head: Normocephalic and atraumatic. Right Ear: Tympanic membrane and external ear normal. Left Ear: Tympanic membrane and external ear normal. Mouth/Throat: Mouth: Mucous membranes are moist. Pharynx: Oropharynx is clear. Eyes: Extraocular Movements: Extraocular movements intact. Conjunctiva/sclera: Conjunctivae normal. Pupils: Pupils are equal, round, and reactive to light. Cardiovascular: Rate and Rhythm: Normal rate and regular rhythm. Pulses: Normal pulses. Heart sounds: Normal heart sounds. No murmur heard. Pulmonary: Effort: Pulmonary effort is normal. No respiratory distress. Breath sounds: Normal breath sounds. No stridor. No wheezing or rhonchi. Abdominal: Comments: The abdomen is soft, nondistended and nontender. There is no rebound tenderness or guarding. Bowel sounds are normal. Musculoskeletal: General: No swelling, deformity or signs of injury. Normal range of motion. Cervical back: Normal range of motion and neck supple. No rigidity or tenderness. Comments: Mild right CVA tenderness. Lymphadenopathy: Cervical: No cervical adenopathy. Skin: General: Skin is warm and dry. Capillary Refill: Capillary refill takes less than 2 seconds. Coloration: Skin is not jaundiced or pale. Findings: No bruising. Neurological: General: No focal deficit present. Mental Status: She is alert and oriented to person, place, and time. Mental status is at baseline. Psychiatric: Mood and Affect: Mood normal. DIAGNOSTIC RESULTS Procedures/EKG: EKG was reviewed by myself. Physician EKG interpretation can be found in [facility] RADIOLOGY (Per Emergency Physician): Interpretation per the Radiologist below, if available at the time of this note: XR chest 2 views Final Result No acute cardiopulmonary abnormality. Report Dictated on Electronically Signed By: Jaclyn Little MD Electronically Signed Date/Time: 05/31/2023 1:51 PM EST ED BEDSIDE ULTRASOUND: Performed by ED Physician - none LABS: Labs Reviewed SARS-COV-2, FLU A/B, AND RSV COMBO - Abnormal Result Value SARS-CoV-2 Not Detected Respiratory Syncytial Virus Not Detected Influenza A Detected (*) Influenza B Not Detected Narrative: Methodology: real-time, RT-PCR The SARS-CoV-2, Flu A/B, and RSV Combo assay is intended for in vitro diagnostic use under the FDA Emergency Use Authorization (EUA). This test has not been FDA cleared or approved. In compliance with this authorization, please visit www.fda.gov/media/827304/download or www.fda.gov/media/473175/download to access the applicable information sheets. COMPLETE URINALYSIS - Abnormal Color, Urine Yellow Clarity, Urine Slightly Cloudy (*) pH, Urine 7.5 Leukocytes, Urine Negative Nitrite, Urine Negative Protein, Urine 20 (*) Glucose, Urine Normal Bilirubin, Urine Negative Ketones, Urine Negative Urobilinogen, Urine 2 (*) Blood, Urine Negative RBC, Urine 0-2 WBC, Urine 0-2 Squamous Epithelial, Urine 11-25 (*) Bacteria, Urine Few (*) Mucus, Urine Few Amorphous Crystals, Urine Few (*) SPECIFIC GRAVITY OF URINE (NUMERIC) 1.022 BASIC METABOLIC PANEL - Abnormal SODIUM 137 POTASSIUM 4.1 CHLORIDE 100 CARBON DIOXIDE 27 UREA NITROGEN 10 CREATININE 0.61 GLUCOSE 114 (*) CALCIUM 9.6 ANION GAP 10 eGFR >90.0 D-DIMER,QUANTITATIVE - Abnormal D-DIMER, INNOVANCE 0.62 (*) Narrative: Innovance D-Dimer values of <0.50 mg/L FEU can be used in combination with a pre-test probability model (e.g. Well's) to exclude pulmonary embolism (PE) disease, as well as an aid in the diagnosis of deep vein thrombosis (DVT). CBC (HEMOGRAM) - Abnormal Auto WBC 6.9 RBC 4.78 Hemoglobin 13.0 Hematocrit 39.1 MCV 81.7 MCH 27.2 MCHC 33.4 RDW 15.0 (*) Platelets 260 MPV 8.1 TROPONIN I - Normal TROPONIN I <0.012 Narrative: Patients with high levels of Biotin oral intake (ie >5 mg/day) may have falsely decreased Troponin levels. COMPLETE URINALYSIS WITH REFLEX TO CULTURE Narrative: The following orders were created for panel order Urinalysis complete with reflex to Culture. Procedure Abnormality Status --------- ------ Complete Urinalysis[[id number]] Abnormal Final result Please view results for these tests on the individual orders. HCG QUALITATIVE URINE HCG,URINE QUAL Negative Narrative: is the most common reason for HCG in urine, although choriocarcinoma, hydatidiform mole, and certain nontrophoblastic malignancies also result in detectable urinary HCG levels. Sensitivity = 20mIU/mL. HCG QUANTITATIVE BLOOD HCG QUANTITATIVE <2 Narrative: Values in should double every 2 to 3 days for the first 6 weeks. Elevated concentrations of human chorionic gonadotropin (hCG) measured in the first trimester of are observed in normal , but may serve as an indication of chorionic carcinoma, hydatiform mole, or multiple . Decreasing hCG concentrations indicate threatened or missed , recent termination of , ectopic , gestosis or intrauterine . Tiffani- and postmenopausal females may have detectable hCG concentrations (< or = to 14 mIU/mL) due to pituitary production of hCG. Serum follicle-stimulating hormone measurement may aid in ruling-out in this population. Cutoffs of greater than 20 to 45 mIU/mL have been suggested and are method dependent. False-elevations (called phantom human chorionic gonadotropin: hCG) may occur with patients who have human antianimal or heterophilic antibodies. Some specimens may not dilute linearly due to abnormal forms of hCG. Elevated hCG concentrations not associated with are found in patients with other diseases such as tumors of the germ cells, ovaries, bladder, pancreas, stomach, lungs, and liver. This test is not intended to detect or monitor tumors or gestational trophoblastic disease. All other labs were within normal range or not returned as of this dictation. EMERGENCY DEPARTMENT COURSE and DIFFERENTIAL DIAGNOSIS/MDM: Vitals: Vitals: 05/31/23 1245 BP: (!) 173/105 Pulse: 97 Resp: 20 Temp: 36.9 C (98.5 F) TempSrc: Temporal SpO2: 94% Diagnoses as of 05/31/23 1541 Influenza A Acute cough Strain of thoracic back region The patient presented with chief complaint of with chief complaint of with cough, right flank pain, right posterior rib cage pain. Patient states he was seen at an urgent care 2 weeks ago and diagnosed with pneumonia, she states she was given antibiotics and steroids and an inhaler states she felt better for couple days but now having pain, and sinus congestion. She states she was just on antibiotics before that for a sinus infection.. The differential diagnosis associated with this patient's presentation includes pneumonia, thoracic strain, urinary tract infection. Our workup consisted of ordering/reviewing: CBC, BMP, D-dimer, chest x-ray, urinalysis, troponin, EKG. Diagnostic tests considered but not performed: CTA of the chest had a long conversation with the patient, she has no pleuritic pain she is not tachycardic or hypoxic, she has a D-dimer of 0.62 it is extremely unlikely that she has a pulmonary embolus at this low of a D-dimer we discussed doing a CTA of the chest versus just treating her for influenza and having her follow-up with her PCP the patient would prefer to do treatment and forego the CTA of the chest I am amenable to that plan with a D-dimer that is so low. To aid in management, I performed an independent interpretation of EKG(s) EKG per my interpretation shows sinus rhythm with a rate [address] elevation or depression with normal intervals Xray(s) chest x-ray per my interpretation shows normal mediastinum, normal cardiac silhouette no infiltrates or effusions. I discussed their care with none. Consideration for escalation of care with: none. The patient will be discharged on Tamiflu, prednisone, return if worsening. Patient is in agreement with this plan. Medications naproxen (Naprosyn) tablet 500 mg (500 mg Oral Given 05/31/23 1325) REVAL: CRITICAL CARE TIME None CONSULTS: None PROCEDURES: Unless otherwise noted below, none Procedures Patients symptoms are consistent with sepsis, severe sepsis, or septic shock (If yes use .sepsiscoremeasure ): no FINAL IMPRESSION 1. Influenza A 2. Acute cough 3. Strain of thoracic back region DISPOSITION Discharge 05/31/2023 03:34:33 PM PATIENT REFERRED TO: Adri Hodgson MD [address] [place] [id number] Schedule an appointment as soon as possible for a visit in 3 days [facility] [address] [facility] [id number] If symptoms worsen DISCHARGE MEDICATIONS: New Prescriptions BENZONATATE (TESSALON) 100 MG CAPSULE Take 1 capsule (100 mg) by mouth in the morning and 1 capsule (100 mg) at noon and 1 capsule (100 mg) before bedtime. Do all this for 7 days. Do not crush or chew.. OSELTAMIVIR (TAMIFLU) 75 MG CAPSULE Take 1 capsule (75 mg) by mouth in the morning and 1 capsule (75 mg) in the evening. Do all this for 5 days. PREDNISONE (DELTASONE) 20 MG TABLET Take 2 tablets (40 mg) by mouth daily for 5 days. (Comment: Please note this report has been produced using speech recognition software and may contain errors related to that system including errors in grammar, punctuation, and spelling, as well as words and phrases that may be inappropriate. If there are any questions or concerns please feel free to contact the dictating provider for clarification.) MICHAEL Germain CNP (electronically signed) Emergency Medicine Provider MICHAEL Germain CNP 05/31/23 1548 [facility] [email or web address] Ring 05-31-2023 Telephone encounter Note S: the patient is calling the [facility] about pneumonia B: 05/17/2023 minute clinic A: the patient reports that she was diagnosed with pneumonia on 05/17/2023 and was prescribed 5 days of Azithromycin and prednisone. She has completed both of these. She states that her symptoms began again on Tuesday and today she feels terrible. She states she ias having coughing fits, rib pain that radiates around to her back, body aches, facial pain and pressure, fevers, and wheezing and trouble breathing. She states she has been using the albuterol inhaler that was prescribed but this is almost out. Her highest fever is 101*F - this is controlled with motrin. R: I do not see any available appointments today or tomorrow that I can schedule her. She states she will go to the [place] ED vs returning to for this. She will call back if she has continued or worsening symptoms. Reason for Disposition Patient sounds very sick or weak to the triager Protocols used: Pneumonia Follow-up [id number] 04-11-2023 Hospital Discharge instructions Sharlene Mann PA-C - 04/11/2023 10:38 AM EDT Return to the ER with new or worsening symptoms including uncontrolled pain, fever, chills, chest pain, or shortness of breath. Follow up with your PCP for further evaluation and treatment as needed. Take Mucinex DM, Tylenol, and Ibuprofen for pain and fever control and Tessalon for cough. The following attachments cannot be sent through Care Everywhere.COVID-19 Overview (Gambian)documented in this encounter [facility] 04-11-2023 Emergency department Note EMERGENCY DEPARTMENT ENCOUNTER Pt Name: Casimiro Liu Birthdate 1980 Date of evaluation: 04/11/2023 ED Provider: Sharlene Mann PA-C Patient seen independently within my scope of practice with an Emergency Medicine attending available for supervision. CHIEF COMPLAINT Chief Complaint Patient presents with Headache Generalized GARCIA/rash all over body since starting amoxicillin on 03/31 for sinus/ear infection. No rash noted on exam Flu Symptoms HISTORY OF PRESENT ILLNESS (Location/Symptom, Timing/Onset, Context/Setting, Quality, Duration, Modifying Factors, Severity) Note limiting factors. I wore appropriate PPE for the entirety of this encounter. HPI Casimiro Liu is a 42 y.o. who presents to the emergency department with complaint of headache, cough, congestion, sore throat, and body aches that been ongoing for the last couple of days. Patient says that she went to an urgent care when the symptoms initially started and was treated for an ear infection with concern for sinusitis. Says that she was treated with Augmentin, she finished this prescription, however says that now she has having random areas of itching across her body. She is otherwise denying any lip or tongue swelling or any intraoral swelling, difficulty swallowing, breathing, or any shortness of breath. No chest pain. Says that she has felt subjective fevers and chills, has not had an elevated temperature at home. She is denying any recent sick contacts to her knowledge. Little bit of associated nausea without any vomiting or pain. Nursing Notes were reviewed. Limitations to history: None Outside historians: None REVIEW OF SYSTEMS Review of Systems Constitutional: Positive for chills and fatigue. Negative for fever. HENT: Positive for congestion, sinus pressure, sinus pain and sore throat. Negative for trouble swallowing and voice change. Eyes: Negative for visual disturbance. Respiratory: Positive for cough. Negative for shortness of breath. Cardiovascular: Negative for chest pain. Gastrointestinal: Negative for abdominal pain, nausea and vomiting. Genitourinary: Negative for dysuria and hematuria. Musculoskeletal: Positive for myalgias. Negative for arthralgias. Skin: Negative for color change and rash. Neurological: Negative for dizziness and syncope. Psychiatric/Behavioral: Negative. All other systems reviewed and are negative. Pertinent positives and negatives as per HPI. PAST MEDICAL HISTORY Past Medical History: Diagnosis Date Anxiety Depression Hypertension SURGICAL HISTORY Past Surgical History: Procedure Laterality Date CHOLECYSTECTOMY CURRENT MEDICATIONS Discharge Medication List as of 04/11/2023 10:38 AM CONTINUE these medications which have NOT CHANGED Details carboxymethylcellulose (Dry Eye Relief) 1 % ophthalmic solution dropperette Apply 2 drops to right eye 2 times daily as needed for dry eyes for up to 5 days., Starting Tue10/08/2022, Until Tue10/13/2022 at 2359, Print escitalopram (Lexapro) 10 MG tablet TAKE 1 TABLET BY MOUTH EVERY DAY, Normal ibuprofen 600 MG tablet TAKE 1 TABLET BY MOUTH 4 TIMES A DAY UNTIL GONE, Historical Med levonorgestrel (Mirena, 52 MG,) 20 MCG/DAY IUD 1 each by IntraUTERine route Once., Historical Med ALLERGIES Seasonal ic [cholestatin] FAMILY HISTORY Family History Problem Relation Name Age of Onset No Known Problems Sister Heart disease Maternal Grandfather No Known Problems Father No Known Problems Brother No Known Problems Mother SOCIAL HISTORY Social History Socioeconomic History Marital status: Single Tobacco Use Smoking status: Former Types: Cigarettes Quit date: 06/20/2016 Years since quittin.8 Smokeless tobacco: Never Tobacco comments: Quit smoking: occasional Substance and Sexual Activity Alcohol use: Not Currently Drug use: No Social Determinants of Health Financial Resource Strain: Low Risk (10/08/2022) Overall Financial Resource Strain (CARDIA) Difficulty of Paying Living Expenses: Not very hard Food Insecurity: No Food Insecurity (10/08/2022) Hunger Vital Sign Worried About Running Out of Food in the Last Year: Never true Ran Out of Food in the Last Year: Never true Transportation Needs: No Transportation Needs (10/08/2022) PRAPARE - Transportation Lack of Transportation (Medical): No Lack of Transportation (Non-Medical): No SCREENINGS PHYSICAL EXAM ED Triage Vitals [04/11/23 0857] Temp Heart Rate Resp BP 36.1 C (96.9 F) 87 18 (!) 190/114 SpO2 Temp Source Heart Rate Source Patient Position 98 % Temporal Monitor -- BP Location FiO2 (%) -- -- Physical Exam Vitals and nursing note reviewed. Constitutional: General: She is not in acute distress. Appearance: She is well-developed. Cardiovascular: Rate and Rhythm: Normal rate and regular rhythm. Heart sounds: No murmur heard. Pulmonary: Effort: Pulmonary effort is normal. No respiratory distress. Breath sounds: Normal breath sounds. Abdominal: General: Bowel sounds are normal. There is no distension. Palpations: Abdomen is soft. Tenderness: There is no abdominal tenderness. There is no guarding or rebound. Musculoskeletal: Right lower leg: No edema. Left lower leg: No edema. Skin: General: Skin is warm and dry. Capillary Refill: Capillary refill takes less than 2 seconds. Neurological: Mental Status: She is alert and oriented to person, place, and time. Psychiatric: Mood and Affect: Mood normal. Behavior: Behavior normal. DIAGNOSTIC RESULTS RADIOLOGY (Per Emergency Physician): Interpretation per the Radiologist below, if available at the time of this note: XR chest 1 view Final Result 1. Lines/Tubes/Devices/Hardware: None. Please confirm position and function of any catheters or attempted catheters clinically. 2. Lungs: No convincing acute process.. Limited due to portable technique. Consider follow-up with PA and lateral chest for persistent symptoms. 3. Pleura: No significant effusion. No significant pneumothorax. 4. Heart and mediastinum: Limited due to technique. 5. Upper abdomen: No acute process seen. 6. Thorax:No acute bony process Report Dictated on Electronically Signed By: Eric Brunner MD Electronically Signed Date/Time: 04/11/2023 9:50 AM EDT LABS: Labs Reviewed SARS-COV-2, FLU A/B, AND RSV COMBO - Abnormal Result Value SARS-CoV-2 Detected (*) Respiratory Syncytial Virus Not Detected Influenza A Not Detected Influenza B Not Detected Narrative: Methodology: real-time, RT-PCR The SARS-CoV-2, Flu A/B, and RSV Combo assay is intended for in vitro diagnostic use under the FDA Emergency Use Authorization (EUA). This test has not been FDA cleared or approved. In compliance with this authorization, please visit www.fda.gov/media/531747/download or www.fda.gov/media/507800/download to access the applicable information sheets. All other labs were within normal range or not returned as of this dictation. EMERGENCY DEPARTMENT COURSE and DIFFERENTIAL DIAGNOSIS/MDM: Vitals: Vitals: 04/11/23 0857 BP: (!) 190/114 Pulse: 87 Resp: 18 Temp: 36.1 C (96.9 F) TempSrc: Temporal SpO2: 98% Medications acetaminophen (Tylenol) tablet 1,000 mg (1,000 mg Oral Given 04/11/23931) oxymetazoline (Afrin) 0.05 % nasal spray 2 spray (2 sprays Each Nostril Given 04/11/23931) MDM elements: The patient presented with chief complaint of cough, congestion, headaches and body aches. Was treated with amoxicillin without significant relief of symptoms. On my exam she is alert, oriented, and in no acute distress. Vital signs remarkable for hypertension. Otherwise afebrile, nontoxic, clinically well-appearing. Does not appear septic. The differential diagnosis associated with this patient's presentation includes viral illness, COVID, flu, RSV, bronchitis, pneumonia, sinusitis. Our workup consisted of ordering/reviewing: Chest x-ray demonstrates no evidence of acute cardiopulmonary process. No sign of consolidation or infection. Viral testing is positive for COVID-19. This most consistent with patient's symptoms. She is outside of the window for Paxlovid or antiviral treatment. Vital signs are otherwise stable, low suspicion for further acute process or complication. Will advise continued symptomatic management, return precautions, discharged in stable condition with outpatient follow-up. The patient will be Discharged. Patient is in agreement with this plan. PROCEDURES: Unless otherwise noted below, none Procedures CRITICAL CARE TIME FINAL IMPRESSION 1. COVID-19 DISPOSITION Discharge 04/11/2023 10:36:41 AM PATIENT REFERRED TO: [facility] [address] [place], [place] [id number] If symptoms worsen Adri Hodgson MD [address] [facility] [id number] In 3 days DISCHARGE MEDICATIONS: Discharge Medication List as of 04/11/2023 10:38 AM START taking these medications Details benzonatate (Tessalon) 100 MG capsule Take 1 capsule (100 mg) by mouth in the morning and 1 capsule (100 mg) at noon and 1 capsule (100 mg) before bedtime. Do all this for 7 days. Do not crush or chew.., Starting 04/11/2023, Until 04/18/2023, Normal dextromethorphan-guaiFENesin (Mucinex DM) 30-600 MG 12 hr tablet Take 1 tablet by mouth in the morning and 1 tablet in the evening. Do all this for 10 days. Do not crush, chew, or split.., Starting 04/11/2023, Until Fidelia 04/21/2023, Normal (Comment: Please note this report has been produced using speech recognition software and may contain errors related to that system including errors in grammar, punctuation, and spelling, as well as words and phrases that may be inappropriate. If there are any questions or concerns please feel free to contact the dictating provider for clarification.) Sharlene Mann PA-C (electronically signed) Emergency Medicine Provider Sharlene Mann PA-C 04/11/23 1405 documented in this encounter [facility] 04-11-2023 Physician Emergency department Note EMERGENCY DEPARTMENT ENCOUNTER Pt Name: Casimiro Liu Birthdate 1980 Date of evaluation: 04/11/2023 ED Provider: Sharlene Mann PA-C Patient seen independently within my scope of practice with an Emergency Medicine attending available for supervision. CHIEF COMPLAINT Chief Complaint Patient presents with Headache Generalized GARCIA/rash all over body since starting amoxicillin on 03/31 for sinus/ear infection. No rash noted on exam Flu Symptoms HISTORY OF PRESENT ILLNESS (Location/Symptom, Timing/Onset, Context/Setting, Quality, Duration, Modifying Factors, Severity) Note limiting factors. I wore appropriate PPE for the entirety of this encounter. HPI Casimiro Liu is a 42 y.o. who presents to the emergency department with complaint of headache, cough, congestion, sore throat, and body aches that been ongoing for the last couple of days. Patient says that she went to an urgent care when the symptoms initially started and was treated for an ear infection with concern for sinusitis. Says that she was treated with Augmentin, she finished this prescription, however says that now she has having random areas of itching across her body. She is otherwise denying any lip or tongue swelling or any intraoral swelling, difficulty swallowing, breathing, or any shortness of breath. No chest pain. Says that she has felt subjective fevers and chills, has not had an elevated temperature at home. She is denying any recent sick contacts to her knowledge. Little bit of associated nausea without any vomiting or pain. Nursing Notes were reviewed. Limitations to history: None Outside historians: None REVIEW OF SYSTEMS Review of Systems Constitutional: Positive for chills and fatigue. Negative for fever. HENT: Positive for congestion, sinus pressure, sinus pain and sore throat. Negative for trouble swallowing and voice change. Eyes: Negative for visual disturbance. Respiratory: Positive for cough. Negative for shortness of breath. Cardiovascular: Negative for chest pain. Gastrointestinal: Negative for abdominal pain, nausea and vomiting. Genitourinary: Negative for dysuria and hematuria. Musculoskeletal: Positive for myalgias. Negative for arthralgias. Skin: Negative for color change and rash. Neurological: Negative for dizziness and syncope. Psychiatric/Behavioral: Negative. All other systems reviewed and are negative. Pertinent positives and negatives as per HPI. PAST MEDICAL HISTORY Past Medical History: Diagnosis Date Anxiety Depression Hypertension SURGICAL HISTORY Past Surgical History: Procedure Laterality Date CHOLECYSTECTOMY CURRENT MEDICATIONS Discharge Medication List as of 04/11/2023 10:38 AM CONTINUE these medications which have NOT CHANGED Details carboxymethylcellulose (Dry Eye Relief) 1 % ophthalmic solution dropperette Apply 2 drops to right eye 2 times daily as needed for dry eyes for up to 5 days., Starting Tue10/08/2022, Until Tue10/13/2022 at 2359, Print escitalopram (Lexapro) 10 MG tablet TAKE 1 TABLET BY MOUTH EVERY DAY, Normal ibuprofen 600 MG tablet TAKE 1 TABLET BY MOUTH 4 TIMES A DAY UNTIL GONE, Historical Med levonorgestrel (Mirena, 52 MG,) 20 MCG/DAY IUD 1 each by IntraUTERine route Once., Historical Med ALLERGIES Seasonal ic [cholestatin] FAMILY HISTORY Family History Problem Relation Name Age of Onset No Known Problems Sister Heart disease Maternal Grandfather No Known Problems Father No Known Problems Brother No Known Problems Mother SOCIAL HISTORY Social History Socioeconomic History Marital status: Single Tobacco Use Smoking status: Former Types: Cigarettes Quit date: 06/20/2016 Years since quittin.8 Smokeless tobacco: Never Tobacco comments: Quit smoking: occasional Substance and Sexual Activity Alcohol use: Not Currently Drug use: No Social Determinants of Health Financial Resource Strain: Low Risk (10/08/2022) Overall Financial Resource Strain (CARDIA) Difficulty of Paying Living Expenses: Not very hard Food Insecurity: No Food Insecurity (10/08/2022) Hunger Vital Sign Worried About Running Out of Food in the Last Year: Never true Ran Out of Food in the Last Year: Never true Transportation Needs: No Transportation Needs (10/08/2022) PRAPARE - Transportation Lack of Transportation (Medical): No Lack of Transportation (Non-Medical): No SCREENINGS PHYSICAL EXAM ED Triage Vitals [04/11/23 0857] Temp Heart Rate Resp BP 36.1 C (96.9 F) 87 18 (!) 190/114 SpO2 Temp Source Heart Rate Source Patient Position 98 % Temporal Monitor -- BP Location FiO2 (%) -- -- Physical Exam Vitals and nursing note reviewed. Constitutional: General: She is not in acute distress. Appearance: She is well-developed. Cardiovascular: Rate and Rhythm: Normal rate and regular rhythm. Heart sounds: No murmur heard. Pulmonary: Effort: Pulmonary effort is normal. No respiratory distress. Breath sounds: Normal breath sounds. Abdominal: General: Bowel sounds are normal. There is no distension. Palpations: Abdomen is soft. Tenderness: There is no abdominal tenderness. There is no guarding or rebound. Musculoskeletal: Right lower leg: No edema. Left lower leg: No edema. Skin: General: Skin is warm and dry. Capillary Refill: Capillary refill takes less than 2 seconds. Neurological: Mental Status: She is alert and oriented to person, place, and time. Psychiatric: Mood and Affect: Mood normal. Behavior: Behavior normal. DIAGNOSTIC RESULTS RADIOLOGY (Per Emergency Physician): Interpretation per the Radiologist below, if available at the time of this note: XR chest 1 view Final Result 1. Lines/Tubes/Devices/Hardware: None. Please confirm position and function of any catheters or attempted catheters clinically. 2. Lungs: No convincing acute process.. Limited due to portable technique. Consider follow-up with PA and lateral chest for persistent symptoms. 3. Pleura: No significant effusion. No significant pneumothorax. 4. Heart and mediastinum: Limited due to technique. 5. Upper abdomen: No acute process seen. 6. Thorax:No acute bony process Report Dictated on Electronically Signed By: Eric Brunner MD Electronically Signed Date/Time: 04/11/2023 9:50 AM EDT LABS: Labs Reviewed SARS-COV-2, FLU A/B, AND RSV COMBO - Abnormal Result Value SARS-CoV-2 Detected (*) Respiratory Syncytial Virus Not Detected Influenza A Not Detected Influenza B Not Detected Narrative: Methodology: real-time, RT-PCR The SARS-CoV-2, Flu A/B, and RSV Combo assay is intended for in vitro diagnostic use under the FDA Emergency Use Authorization (EUA). This test has not been FDA cleared or approved. In compliance with this authorization, please visit www.fda.gov/media/521100/download or www.fda.gov/media/954083/download to access the applicable information sheets. All other labs were within normal range or not returned as of this dictation. EMERGENCY DEPARTMENT COURSE and DIFFERENTIAL DIAGNOSIS/MDM: Vitals: Vitals: 04/11/23 0857 BP: (!) 190/114 Pulse: 87 Resp: 18 Temp: 36.1 C (96.9 F) TempSrc: Temporal SpO2: 98% Medications acetaminophen (Tylenol) tablet 1,000 mg (1,000 mg Oral Given 04/11/23931) oxymetazoline (Afrin) 0.05 % nasal spray 2 spray (2 sprays Each Nostril Given 04/11/23931) MDM elements: The patient presented with chief complaint of cough, congestion, headaches and body aches. Was treated with amoxicillin without significant relief of symptoms. On my exam she is alert, oriented, and in no acute distress. Vital signs remarkable for hypertension. Otherwise afebrile, nontoxic, clinically well-appearing. Does not appear septic. The differential diagnosis associated with this patient's presentation includes viral illness, COVID, flu, RSV, bronchitis, pneumonia, sinusitis. Our workup consisted of ordering/reviewing: Chest x-ray demonstrates no evidence of acute cardiopulmonary process. No sign of consolidation or infection. Viral testing is positive for COVID-19. This most consistent with patient's symptoms. She is outside of the window for Paxlovid or antiviral treatment. Vital signs are otherwise stable, low suspicion for further acute process or complication. Will advise continued symptomatic management, return precautions, discharged in stable condition with outpatient follow-up. The patient will be Discharged. Patient is in agreement with this plan. PROCEDURES: Unless otherwise noted below, none Procedures CRITICAL CARE TIME FINAL IMPRESSION 1. COVID-19 DISPOSITION Discharge 04/11/2023 10:36:41 AM PATIENT REFERRED TO: [facility] [address] [facility] [address] If symptoms worsen Adri Hodgson MD [address] [address] In 3 days DISCHARGE MEDICATIONS: Discharge Medication List as of 04/11/2023 10:38 AM START taking these medications Details benzonatate (Tessalon) 100 MG capsule Take 1 capsule (100 mg) by mouth in the morning and 1 capsule (100 mg) at noon and 1 capsule (100 mg) before bedtime. Do all this for 7 days. Do not crush or chew.., Starting 04/11/2023, Until 04/18/2023, Normal dextromethorphan-guaiFENesin (Mucinex DM) 30-600 MG 12 hr tablet Take 1 tablet by mouth in the morning and 1 tablet in the evening. Do all this for 10 days. Do not crush, chew, or split.., Starting 04/11/2023, Until Fidelia 04/21/2023, Normal (Comment: Please note this report has been produced using speech recognition software and may contain errors related to that system including errors in grammar, punctuation, and spelling, as well as words and phrases that may be inappropriate. If there are any questions or concerns please feel free to contact the dictating provider for clarification.) Sharlene Mann PA-C (electronically signed) Emergency Medicine Provider Sharlene Mann PA-C 04/11/23 1405 [facility] 02-15-2023 Telephone encounter Note error [facility] 02-15-2023 Miscellaneous Notes error documented in this encounter [facility] 01-24-2023 Note HNO ID: [id number] Author: Kt Watson MD Service: ? Author Type: Physician Type: Progress Notes Filed: 01/24/2023 6:02 PM Note Text: Casimiro Liu is a 42 year old who presents for her post op exam after her LEEP on 12/24/2022 for severe dysplasia. Patient is doing fine, no complaints. LMP (LMP Unknown) EXAM: pleasant, pleasant,well developed,well nourished,white female in no apparent distress ABDOMEN: Benign, Soft, non-tender, no hernia, pfannenstiel incision well healed PELVIC: external genitalia normal, vagina normal, bimanual exam normal, uterus enlarged approp. size, normal vaginal mucosa, normal discharge, no bleeding, and CERVIX WELL HEALED Pathology Results: severe Margins: Indeterminate ASSESSMENT: Stable status post cervical LEEP. PLAN: Plan postop instructions were given. Patient is able to resume sexual activity. Emphasized importance of having a Pap smear every 3 months for the next one-year period. Kt Watson MD [facility] 01-24-2023 History of Present illness Narrative Casimiro Liu is a 42 year old who presents for her post op exam after her LEEP on 12/24/2022 for severe dysplasia. Patient is doing fine, no complaints. LMP (LMP Unknown) EXAM: pleasant, pleasant,well developed,well nourished,white female in no apparent distress ABDOMEN: Benign, Soft, non-tender, no hernia, pfannenstiel incision well healed PELVIC: external genitalia normal, vagina normal, bimanual exam normal, uterus enlarged approp. size, normal vaginal mucosa, normal discharge, no bleeding, and CERVIX WELL HEALED Pathology Results: severe Margins: Indeterminate ASSESSMENT: Stable status post cervical LEEP. PLAN: Plan postop instructions were given. Patient is able to resume sexual activity. Emphasized importance of having a Pap smear every 3 months for the next one-year period. Kt Watson MD documented in this encounter [facility] 01-06-2023 Miscellaneous Notes Patient called asking for a letter to return to work on 01/10/23. She would like it faxed to [employer] at [phone]. documented in this encounter [facility] 01-06-2023 Instructions Daniella Hidalgo DO - 01/06/2023 9:39 AM EDT SALINE INFUSION SONOGRAPHY (SIS) is an office procedure used to evaluate the intrauterine cavity or inside lining of the uterus. This is achieved by intrauterine infusion of a saline solution during transvaginal ultrasound (an ultrasound using a vaginal probe). A small, flexible catheter is passed through the cervix (the opening of the uterus) into the uterus so the sterile water can distend the uterine kim and allow visualization of the uterine cavity. PRIOR TO THE PROCEDURE: You may wish to take an over the counter medication such as Tylenol, Advil, or Motrin. You may exparience a small amount of menstrual like cramping with the procedure, and this will help minimize the discomfort. NOTIFY YOUR PHYSICIAN IF YOU HAVE MITRAL VALVE PROLAPSE, JOINT REPLACEMENT, OR ROUTINELY TAKE ANTIBIOTICS FOR DENTAL PROCEDURES, ANTIBIOTICS MAY BE NECESSARY FOR THIS PROCEDURE WELL. AFTER THE PROCEDURE: A small amount of bleeding, cramping, or watery discharge is expected. You may use tampons or pads. DO NOT leave the tampons in longer than 3 hours at a time. Tylenol, Advil, or Motrin may be used for abdominal cramping or discomfort you may experience. Refrain from douching or intercourse for 48 hours. Showers or tub baths are allowed. However, refrain from hot tubs and swimming for 48 hours. NOTIFY YOUR PHYSICIAN'S OFFICE IF YOU HAVE A TEMPERATURE OF 100 DEGREES OR HIGHER, OR IF YOU EXPERIENCE SEVERE ABDOMINAL PAIN, OR HEAVY BLEEDING. YOUR PHYSICIAN WILL NOTIFY YOU OF YOUR TEST RESULTS If your physician does not perform this test, he/she will provide you with a referral and appointment number for scheduling the procedure documented in this encounter [facility] 01-06-2023 Note HNO ID: [id number] Author: Daniella Hidalgo DO Service: ? Author Type: Physician Type: Progress Notes Filed: 01/06/2023 9:43 AM Note Text: SERVICE DATE: 01/06/2023 SERVICE TIME: 9:29 AM Subjective CHIEF COMPLAINT: Discuss hysterectomy HPI: This is a 42 year old female who presents to discuss hysterectomy Pt is s/p LEEP for DIONNE 3. FINAL DIAGNOSIS A. Cervix, LEEP: -- High-grade squamous intraepithelial lesion (DIONNE-3), involves 1 out of 4 quadrants and focally extends to ectocervical margin, see comment. Reports one . One baby. Prior . PSH- Nai PAST MEDICAL HISTORY Diagnosis Date Anxiety Depression Pancreatitis PAST SURGICAL HISTORY Procedure Laterality Date CHOLECYSTECTOMY 2006 FAMILY HISTORY Problem Relation Age of Onset Diabetes Mother Diabetes Father Social History Tobacco Use Smoking status: Former Packs/day: 0.50 Years: 15.00 Total pack years: 7.50 Types: Cigarettes Quit date: 08/29/2018 Years since quittin.3 Smokeless tobacco: Never Vaping Use Vaping Use: Never used Substance Use Topics Alcohol use: Yes Comment: occasionally Drug use: No (Not in a hospital admission) ALLERGIES No Known Allergies COMPLETE REVIEW OF SYSTEMS: PAIN ASSESSMENT: Negative for pain, history of chronic pain, or current treatment for a chronic pain condition. GENERAL: No weight loss, malaise or fevers HEENT: Negative for frequent or significant headaches, No changes in hearing or vision, no nose bleeds or other nasal problems NECK: Negative for lumps, goiter, pain and significant neck swelling RESPIRATORY: Negative for cough, hemoptysis, wheezing, COPD, dyspnea or shortness of breath CARDIOVASCULAR: Hypertension GI: No nausea, vomiting, or diarrhea : No history of dysuria, frequency or incontinence FLAG DECORATOR: Negative for abnormal vaginal bleeding, abnormal vaginal discharge MUSCULOSKELETAL: Negative for joint pain or swelling, back pain or muscle pain SKIN: Negative for lesions, rash, and itching PSYCH: Negative for sleep disturbance, mood disorder and recent psychosocial stressors HEMATOLOGY/LYMPHOLOGY: Negative for prolonged bleeding, bruising easily or swollen nodes ENDOCRINE: Negative for cold or heat intolerance, polyuria, polydipsia and goiter Objective PHYSICAL EXAM: 01/06/23 0927 BP: 140/82 Weight: 226 lb 9.6 oz (102.8 kg) Height: 5' 4 (1.626 m) Physical Exam Performed: GENERAL: Alert, no distress, cooperative SKIN: Skin color, texture, turgor normal. No rashes or lesions. HEAD/SINUSES: No significant findings EYES: PERRLA, EOMI NOSE: Nares patent NECK: Supple BACK: Back symmetric, Normal curvature LUNGS: Lungs clear to auscultation, Good diaphragmatic excursion CARDIAC: Normal S1 and S2; no rubs, murmurs, or gallops ABDOMEN: Abdomen soft, non-tender, BS normal, No masses or organomegaly EXTREMITIES: Extremities normal, no deformities, edema, clubbing or skin discoloration. Good capillary refill., No ulcers ASSESSMENT/PLAN: 1. High grade squamous intraepithelial lesion (HGSIL), grade 3 DIONNE, on biopsy of cervix - ICD9: 233.1, ICD10: D06.9 (primary diagnosis) - HPV VACCINE, 9-VALENT (GARDASIL 9) - s/p LEEP on 12/24/22 2. HPV vaccine counseling - ICD9: V65.49, ICD10: Z71.85 - HPV VACCINE, 9-VALENT (GARDASIL 9) 3. Pre-op exam - ICD9: V72.84, ICD10: Z01.818 - PELVIC US WHI SIS - Will send fluid as EMB for pre op workup - Await until helaed from LEEP - Counseled that hysterectomy will still require vaginal Pap smears to be completed given history. Pt verbalized understandig. - Declines future childbearing - Pending US results, will decide mode of surgery. - Will be for surgical clearance. RTC SIS, EMB and pre op Daniella Hidalgo DO [facility] 01-06-2023 History of Present illness Narrative SERVICE DATE: 01/06/2023 SERVICE TIME: 9:29 AM Subjective CHIEF COMPLAINT: Discuss hysterectomy HPI: This is a 42 year old female who presents to discuss hysterectomy Pt is s/p LEEP for DIONNE 3. FINAL DIAGNOSIS A. Cervix, LEEP: -- High-grade squamous intraepithelial lesion (DIONNE-3), involves 1 out of 4 quadrants and focally extends to ectocervical margin, see comment. Reports one . One baby. Prior . PSH- Nai PAST MEDICAL HISTORY Diagnosis Date Anxiety Depression Pancreatitis PAST SURGICAL HISTORY Procedure Laterality Date CHOLECYSTECTOMY 2005 FAMILY HISTORY Problem Relation Age of Onset Diabetes Mother Diabetes Father Social History Tobacco Use Smoking status: Former Packs/day: 0.50 Years: 15.00 Total pack years: 7.50 Types: Cigarettes Quit date: 08/29/2018 Years since quittin.3 Smokeless tobacco: Never Vaping Use Vaping Use: Never used Substance Use Topics Alcohol use: Yes Comment: occasionally Drug use: No (Not in a hospital admission) ALLERGIES No Known Allergies COMPLETE REVIEW OF SYSTEMS: PAIN ASSESSMENT: Negative for pain, history of chronic pain, or current treatment for a chronic pain condition. GENERAL: No weight loss, malaise or fevers HEENT: Negative for frequent or significant headaches, No changes in hearing or vision, no nose bleeds or other nasal problems NECK: Negative for lumps, goiter, pain and significant neck swelling RESPIRATORY: Negative for cough, hemoptysis, wheezing, COPD, dyspnea or shortness of breath CARDIOVASCULAR: Hypertension GI: No nausea, vomiting, or diarrhea : No history of dysuria, frequency or incontinence FLAG DECORATOR: Negative for abnormal vaginal bleeding, abnormal vaginal discharge MUSCULOSKELETAL: Negative for joint pain or swelling, back pain or muscle pain SKIN: Negative for lesions, rash, and itching PSYCH: Negative for sleep disturbance, mood disorder and recent psychosocial stressors HEMATOLOGY/LYMPHOLOGY: Negative for prolonged bleeding, bruising easily or swollen nodes ENDOCRINE: Negative for cold or heat intolerance, polyuria, polydipsia and goiter Objective PHYSICAL EXAM: 01/06/23926 BP: 140/82 Weight: 226 lb 9.6 oz (102.8 kg) Height: 5' 4 (1.626 m) Physical Exam Performed: GENERAL: Alert, no distress, cooperative SKIN: Skin color, texture, turgor normal. No rashes or lesions. HEAD/SINUSES: No significant findings EYES: PERRLA, EOMI NOSE: Nares patent NECK: Supple BACK: Back symmetric, Normal curvature LUNGS: Lungs clear to auscultation, Good diaphragmatic excursion CARDIAC: Normal S1 and S2; no rubs, murmurs, or gallops ABDOMEN: Abdomen soft, non-tender, BS normal, No masses or organomegaly EXTREMITIES: Extremities normal, no deformities, edema, clubbing or skin discoloration. Good capillary refill., No ulcers ASSESSMENT/PLAN: 1. High grade squamous intraepithelial lesion (HGSIL), grade 3 DIONNE, on biopsy of cervix - ICD9: 233.1, ICD10: D06.9 (primary diagnosis) - HPV VACCINE, 9-VALENT (GARDASIL 9) - s/p LEEP on 12/24/22 2. HPV vaccine counseling - ICD9: V65.49, ICD10: Z71.85 - HPV VACCINE, 9-VALENT (GARDASIL 9) 3. Pre-op exam - ICD9: V72.84, ICD10: Z01.818 - PELVIC US WHI SIS - Will send fluid as EMB for pre op workup - Await until helaed from LEEP - Counseled that hysterectomy will still require vaginal Pap smears to be completed given history. Pt verbalized understandig. - Declines future childbearing - Pending US results, will decide mode of surgery. - Will be for surgical clearance. RTC SIS, EMB and pre op Daniella Hidalgo DO documented in this encounter [facility] 01-03-2023 Miscellaneous Notes Aware of Dr Watson's response. Meme Rehman RN She can go back 2 weeks after surgery, dies not need to be seen first Aware of Dr Watson's message. Asking when she can return to work after having the LEEP? She thinks you told her 2 wks (which would be 7.21 but she doesn't see you until 8.7 for her f/u.) Can she go back to work before being seen is her question? Please advise. Thank you, Meme Remhan, RN The pathology report shows a high grade abnormality but no cancer, so she will be able to have a simple hysterectomy documented in this encounter [facility] 12-24-2022 Note HNO ID: [id number] Author: Matthew Richmond RN Service: ? Author Type: Registered Nurse Type: Nursing Progress Note Filed: 12/24/2022 1:40 PM Note Text: Dr. Watson at bedside. [facility] 12-24-2022 Note HNO ID: [id number] Author: Xenia Shirley APRN.CRNA Service: Anesthesiology Author Type: Nurse Stamp Mounter Type: Anesthesia Procedure Notes Filed: 12/24/2022 12:28 PM Note Text: ANESTHESIOLOGY PROCEDURE NOTE Airway General Information Procedure Start Time/Medication Administration: 12/24/2022 12:16 PM Patient location during procedure: OR Consent Obtained: Yes Patient identity confirmed: arm band Staffing Anesthesiologist: Jordan Witt MD Indications and Patient Condition Indications for airway management: anesthesia and airway protection Preoxygenated: yes anesthesia circuit Patient position: sniffing Method: asleep Cricoid Pressure: No Final Airway Details Final airway type: supraglottic airway Number of attempts at approach: 1 Final Supraglottic Airway: i-gel Size 4 Seal Adequate: yes Airway not difficult SIGNATURE: Xenia Shirley APRN.CRNA PATIENT NAME: Casimiro Liu DATE: December 24, 2022 TIME: 12:27 PM CSN: [id number] [facility] 10-12-2022 Miscellaneous Notes Diagnostic films ordered documented in this encounter [facility] 10-12-2022 Miscellaneous Notes [facility] [address] [place] [address] October 12, 2022 PID: [id number] Casimiro Liu [address] [facility] [place] [address] Dear Ms. Liu, Your recent breast imaging exam on 10/11/2022 showed a possible finding that requires additional imaging studies for a complete evaluation. Most such findings are probably benign (not cancer). If you have a healthcare provider who ordered/prescribed your screening mammogram: Please call [phone] to schedule an appointment for your additional imaging (if you have not already done so). If you DO NOT have a healthcare provider (ie you did not have an order/prescription for your screening mammogram): Please call [phone] to schedule an appointment for your additional imaging (if you have not already done so). You must have an order / prescription from your physician when calling to schedule your appointment. If your order / prescription is not electronic, you must bring the hard copy with you on the day of your exam to avoid rescheduling your exam. Your imaging studies and reports are kept on file at [facility] as part of your permanent medical record, and are available for your continuing care. Thank you for allowing us to help in meeting your health care needs. Sincerely, Dr. Sotelo Interpreting Radiologist [facility] (Additional imaging) documented in this encounter [facility] 10-08-2022 History of Present illness Narrative Patient was able to ambulate safely to the examination room. Provider was not notified of possible fall risk Pt asked if they have been to specialist,been in ER /hospitalized or had testing since last visit. no INDIRECT SUPERVISION THIS SERVICE IS TO BE BILLED UNDER THE PRIMARY CARE EXCEPTION (MODIFIER -GE) During or immediately after this visit, I discussed this case with the treating resident. Our discussion included the history obtained by the resident, the resident's exam findings, and the resident's treatment plan. The resident's note reflects the information we discussed, and I agree with the resident's assessment and treatment plan. Images from the original note were not included. 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 Diagnoses and all orders for this visit: Eye injury, unspecified laterality, initial encounter (Primary) - fluorescein 0.6 MG ophthalmic strip 1 strip - carboxymethylcellulose (Dry Eye Relief) 1 % ophthalmic solution dropperette; Apply 2 drops to right eye 2 times daily as needed for dry eyes for up to 5 days. - [facility] [place] [facility]; Future - Eye exam with a both magnification and fluorescein stain with blue light. No foreign body identified. Patient was given referral to Ophthalmology for further eval. Will Rx ophtalmic solution in the meantime. Discussed strict return precaution. Subjective Eye Pain Subjective Patient ID: Casimiro Liu is a 42 y.o. 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 Woke up next morning, felt the urge to rub her eye and pain started right after. Pain primarily at right eye. No burning. No pain with movement of the eye. Pain is improving since Tuesday- 5 days now. Some redness in the right eye. Reports associating photophobia. No discharge. No visual compromise. She wears contact sometimes and the rest with corrective lenses. Does not have current eye doctor. No other acute complain. Review of Systems Eyes: Positive for pain. Allergies Allergen Reactions Seasonal Ic [Cholestatin] Itching Outpatient Medications Prior to Visit Medication Sig Dispense Refill escitalopram (Lexapro) 10 MG tablet TAKE 1 TABLET BY MOUTH EVERY DAY 90 tablet 11 ibuprofen 600 MG tablet TAKE 1 TABLET BY MOUTH 4 TIMES A DAY UNTIL GONE levonorgestrel (Mirena, 52 MG,) 20 MCG/DAY IUD 1 each by IntraUTERine route Once. No facility-administered medications prior to visit. Patient Active Problem List Diagnosis Anxiety and depression Splenomegaly, not elsewhere classified Pancreatitis, unspecified pancreatitis type Primary hypertension Past Medical History: Diagnosis Date Anxiety Depression Hypertension Social History Tobacco Use Smoking status: Former Types: Cigarettes Quit date: 06/20/2016 Years since quittin.3 Smokeless tobacco: Never Tobacco comments: Quit smoking: occasional Substance Use Topics Alcohol use: Not Currently Past Surgical History: Procedure Laterality Date CHOLECYSTECTOMY Family History Problem Relation Name Age of Onset No Known Problems Sister Heart disease Maternal Grandfather No Known Problems Father No Known Problems Brother No Known Problems Mother Health Maintenance Topic Date Due Hepatitis B Vaccines (1 of 3 - 3-dose series) Never done Lipid Panel Never done HIV Screening Never done Hepatitis A Vaccines (1 of 2 - Risk 2-dose series) Never done MMR Vaccines (1 of 1 - Standard series) Never done Varicella Vaccines (1 of 2 - 2-dose childhood series) Never done Hepatitis C Screening Never done Mammogram Never done Influenza Vaccine (Season Ended) 2023 Cervical Cancer Screening 09/21/2025 DTaP/Tdap/Td Vaccines (2 - Td or Tdap) 02/02/2028 Zoster Vaccines (1 of 2) 2030 COVID-19 Vaccine Completed HIB Vaccines Aged Out IPV Vaccines Aged Out Meningococcal Vaccine Aged Out Rotavirus Vaccines Aged Out HPV Vaccines Aged Out Pneumococcal Vaccine: Pediatrics (0 to 5 Years) and At-Risk Patients (6 to 64 Years) Aged Out Objective BP 134/81 Pulse 81 Temp 36.6 C (97.8 F) (Temporal) Ht 5' 4 (1.626 m) Wt 204 lb 8 oz (92.8 kg) BMI 35.10 kg/m Wt Readings from Last 3 Encounters: 10/08/22 204 lb 8 oz (92.8 kg) 08/11/21 205 lb 9.6 oz (93.3 kg) 07/28/21 203 lb 8 oz (92.3 kg) Physical Exam Vitals reviewed. Constitutional: Appearance: Normal appearance. HENT: Head: Normocephalic. Nose: Nose normal. Eyes: General: Lids are normal. Lids are everted, no foreign bodies appreciated. Vision grossly intact. Gaze aligned appropriately. No allergic shiner, visual field deficit or scleral icterus. Right eye: Discharge (clear liquid/tears) present. No foreign body or hordeolum. Extraocular Movements: Extraocular movements intact. Right eye: Normal extraocular motion and no nystagmus. Left eye: Normal extraocular motion. Conjunctiva/sclera: Right eye: Right conjunctiva is injected. No chemosis, exudate or hemorrhage. Left eye: Left conjunctiva is not injected. No chemosis, exudate or hemorrhage. Pupils: Pupils are equal, round, and reactive to light. Cardiovascular: Rate and Rhythm: Normal rate and regular rhythm. Pulmonary: Effort: Pulmonary effort is normal. Breath sounds: Normal breath sounds. Abdominal: General: Bowel sounds are normal. Palpations: Abdomen is soft. Musculoskeletal: Right lower leg: No edema. Left lower leg: No edema. Neurological: Mental Status: She is alert. Data Reviewed and Summarized Labs: Selin Ma MD PGY-3 Engineering Operations Leader 10/08/2022 3:55 PM documented in this encounter [facility] 10-08-2022 Telephone encounter Note S: Patient spoke with [facility] nurse regarding eye swollen B: Onset of symptoms/concern 5 days A: Patient complaining of eye pain, redness, itiching. Denies vision changes. R: OV scheduled for today with Dr. Ma. Patient understands care advice. No further needs at this time. Patient instructed to call back with new or worsening symptoms. Reason for Disposition MODERATE eye pain or discomfort (e.g., interferes with normal activities or awakens from sleep; more than mild) Protocols used: Eye Pain and Other [id number]-[id number]-IQ [facility] 10-08-2022 Miscellaneous Notes S: Patient spoke with [facility] nurse regarding eye swollen B: Onset of symptoms/concern 5 days A: Patient complaining of eye pain, redness, itiching. Denies vision changes. R: OV scheduled for today with Dr. Ma. Patient understands care advice. No further needs at this time. Patient instructed to call back with new or worsening symptoms. Reason for Disposition MODERATE eye pain or discomfort (e.g., interferes with normal activities or awakens from sleep; more than mild) Protocols used: Eye Pain and Other [id number] documented in this encounter [facility] 09-21-2022 History of Present illness Narrative Casimiro Liu is an 42 year old woman who presents for annual exam. LMP: Patient's last menstrual period was 02/18/2018 (exact date). Periods are regular q 28-30 days, lasting 6 days. Dysmenorrhea:moderate, occurring first 1-2 days of flow. Cyclic symptoms include none. Sexually active? Yes Contraception: MIRENA inserted 10/2017 Sexual dysfunction: none Vaginitis symptoms: none PAST MEDICAL HISTORY Diagnosis Date Anxiety Depression Pancreatitis PAST SURGICAL HISTORY Procedure Laterality Date CHOLECYSTECTOMY 2006 FAMILY HISTORY Problem Relation Age of Onset Diabetes Mother Diabetes Father Social History Tobacco Use Smoking status: Former Packs/day: 0.50 Years: 15.00 Pack years: 7.50 Types: Cigarettes Quit date: 08/29/2018 Years since quittin.0 Smokeless tobacco: Never Vaping Use Vaping Use: Never used Substance Use Topics Alcohol use: Yes Comment: occasionally Drug use: No MEDICATIONS: escitalopram oxalate (LEXAPRO ORAL) Take by mouth. cholecalciferol, vitamin D3, 100 mcg (4,000 unit) cap Take 1 capsule by mouth once daily. sertraline (ZOLOFT) 50 mg tablet TAKE 1 TABLET BY MOUTH EVERY DAY (Patient not taking: Reported on 01/06/2022) sertraline (ZOLOFT) 25 mg tablet Take 1 tablet by mouth once daily for 7 days. bisacodyl (DULCOLAX) 10 mg supp 1 Suppository by RECTAL route once daily as needed. (Patient not taking: Reported on 08/02/2019 ) ondansetron orally disintegrating (ZOFRAN ODT) 4 mg disintegrating tablet Take 1 tablet by mouth every 6 hours. (Patient not taking: Reported on 01/06/2022 ) docusate sodium (COLACE) 100 mg capsule Take 1 capsule by mouth once daily. (Patient not taking: Reported on 08/02/2019 ) Terbinafine (LAMISIL, AEROSOL,) 1 % spra Apply 1 application to affected area twice daily. ALLERGIES:Patient has no known allergies. Hx of abnormal pap? No Regular self-breast exam? Yes History of abnormal mammogram? No REVIEW OF SYSTEMS: GENERAL:Denies fever, chills, night sweats, or changes in weight. DERMATOLOGIC: Denies any new skin conditions, rashes or changing moles. EYES: Denies recent visual changes. ENT: Denies hearing loss or tinnitus. RESPIRATORY: Denies any cough, dyspnea, or wheezing. CARDIOVASCULAR:Denies any chest pain with exertion or at rest, palpitations, syncope, shortness of breath or edema. BREASTS: Denies any breast lumps, tenderness, dimpling, skin changes, or nipple discharge. GASTROINTESTINAL: Denies any nausea, vomiting, or abdominal pain. , Denies heartburn., Denies any change in bowel habits. GENITOURINARY:Denies urinary frequency, dysuria, hematuria, nocturia, incontinence. and Reports menstrual problem FLAG DECORATOR: Denies any abnormal vaginal discharge, irregular bleeding, vaginal dryness, dypareunia, or change in libido MUSCULOSKELETAL: Denies any joint swelling, crepitus, or loss of range of motion., Denies back pain., Denies joint pain. NEURO:Denies any headaches, tremors, dizziness, vertigo, memory loss, confusion., Denies weakness, numbness or tingling. PSYCHIATRIC: Denies any anxiety or depression. HEMATOLOGIC/LYMPHATIC/IMMUNOLOGIC: Denies anemia, bruising, bleeding abnormalities. ENDOCRINE: Denies any heat or cold intolerance, polyuria, polyphasia or polydipsia. OBJECTIVE: GENERAL APPEARANCE: cooperative, in no acute distress, alert. SKIN:Color normal, Vascularity normal, No evidence of bleeding or bruising, No lesions noted, No edema, Temperature normal, Texture normal, Mobility and turgor normal, Nails normal without clubbing NECK: Supple, no adenopathy; thyroid symmetric, normal size, no bruits BREASTS: breasts symmetric, no dominant or suspicious mass, no skin or nipple changes, no axillary adenopathy HEART:Normal PMI, Regular rate and rhythm, Normal heart sounds, S1 and S2 and No murmurs. ABDOMEN: soft, non-tender, no masses, no hepatosplenomegaly and no lymphadenopathy EXTREMITIES: No skin discoloration, No edema and Normal pulses bilaterally. PELVIC EXAM : External genitalia, cervix, and vagina normal., Bimanual exam normal. IUD string noted in os RECTAL EXAM: deferred PATIENT EDUCATION:Women's Health counselling done. ASSESSMENT/PLAN: 1. Screening for malignant neoplasm of cervix - ICD9: V76.2, ICD10: Z12.4 (primary diagnosis) - Completed pelvic and breast exam - Encouraged monthly BSE - Follow up for annual exam in one year. - PAP TEST 2. Encounter for gynecological examination (general) (routine) without abnormal findings - ICD9: V72.31, ICD10: Z01.419 - Completed pelvic and breast exam - Encouraged monthly BSE - Follow up for annual exam in one year. 3. Encounter for routine checking of intrauterine contraceptive device (IUD) - ICD9: V25.42, ICD10: Z30.431 - She wants to leave it in until 2024 4. Encounter for screening mammogram for malignant neoplasm of breast - ICD9: V76.12, ICD10: Z12.31 - Completed pelvic and breast exam - Encouraged monthly BSE - Follow up for annual exam in one year. - DEL SCREENING Kt Watson MD documented in this encounter [facility] 01-06-2022 History of Present illness Narrative Casimiro Liu is a 41 year old female who presents with the complaint of cramping pelvic pain for 6 months. Pain is Bilateral. Currently having any pain? No 0 on a scale of 0 to 10 CHIEF COMPLAINT: Consult (Patient states cramping that last six months with spotting around the same time she would have her period) HPI:Has had Mirena for 4 years -- having spotting menses with severe cramping Postmenopausal? No. Menstrual cycle every 38 days Flow 3 days Heavy bleeding? No Intermenstrual spotting? No Post-coital bleeding? No History of fibroids? No Dysmenorrhea? Yes PMDD? No History of sexual abuse? No History of anxiety disorder? No History of STD? No Concern for exposure to STDs? No Symptoms suggestive of Irritable Bowel Syndrome? No Dysuria, urinary frequency or urgency? No Recent weight change? No Contraception: IUD PAST HISTORIES: PAST MEDICAL HISTORY Diagnosis Date Anxiety Depression Pancreatitis PAST SURGICAL HISTORY Procedure Laterality Date CHOLECYSTECTOMY 2005 FAMILY HISTORY Problem Relation Age of Onset Diabetes Mother Diabetes Father Social History Tobacco Use Smoking status: Former Smoker Packs/day: 0.50 Years: 15.00 Pack years: 7.50 Types: Cigarettes Quit date: 08/29/2018 Years since quittin.3 Smokeless tobacco: Never Used Vaping Use Vaping Use: Never used Substance Use Topics Alcohol use: Yes Comment: occasionally Drug use: No No data was found BP 138/78 Ht 5' 4 (1.626 m) Wt 210 lb (95.3 kg) LMP 02/18/2018 (Exact Date) BMI 36.05 kg/m GENERAL: pleasant, female in no apparent distress HEENT: Normocephalic, atraumatic, mucus membranes moist and no lesions NECK: Supple, full range of motion, no adenopathy and thyroid normal DERMATOLOGY: Normal, without lesions, non-icteric and non-hirsute CHEST: Normal inspiratory effort ABDOMEN: soft, non-tender and no masses PELVIC: external genitalia normal, normal Bartholin's glands, urethra, [place]'s glands, no vulvar lesions, no cervical lesions, good vaginal support, physiologic discharge present, normal appearing perineal body and perianal region, IUD string noted BIMANUAL: uterus normal size, shape and consistency, no adnexal masses and non-tender RECTOVAGINAL: rectovaginal exam negative for any masses or nodularity. NEURO: alert and oriented x3,exam grossly non-focal EXTREMITIES: normal ASSESSMENT/PLAN: 1. Breakthrough bleeding with IUD - ICD9: 626.6, V45.51, ICD10: N92.1, Z97.5 (primary diagnosis) - She is considering a Tubal ligation if the IUD neds removed - PELVIC US WHI 2. Pelvic cramping - ICD9: 625.9, ICD10: R10.2 - Work up with Ultrasound transvaginal - PELVIC US WHI Kt Watson MD, MD documented in this encounter [facility] 07-04-2021 Note Reviewed discharge s deion with patient. Patient verbalized understanding. Patient aware RX sent to [facility] in [place]. [facility] 07-04-2021 Note Medical Teaching Ser vice Discharge Summary Patient: Casimiro Liu : 1980 Acct: [id number] PCP: No primary care provider on file. Admitting Physician: Carlitos Barrett MD Admission Date: 06/28/2021 Discharge Date: 07/04/2021 Visit Status: Admission Code Status: Full Code Admission Diagnosis: Pleuritic chest pain [R07.81] Coronavirus infection [B34.2] Pancreatitis, unspecified pancreatitis type [K85.90] Acute pancreatitis, unspecified complication status, unspecified pancreatitis type [K85.90] Acute pancreatitis without infection or necrosis, unspecified pancreatitis type [K85.90] Discharge Diagnoses: Principal Problem (Resolved): Acute pancreatitis without infection or necrosis Active Problems: Pancreatitis, unspecified pancreatitis type Splenomegaly, not elsewhere classified Primary hypertension Resolved Problems: Acute pancreatitis COVID-19 Patient Active Problem List Diagnosis Date Noted ? Splenomegaly, not elsewhere classified 07/04/2021 On previous imaging - no contact sports ? Primary hypertension 07/04/2021 Uncontrolled - amlodipine, lisinopril, HCTZ, spironolactone. No RENATO, hypothyroidism. Will need Sleep study. Medication may need to be tapered when pain controlled and prednisone is discontinued. ? Pancreatitis, unspecified pancreatitis type 06/28/2021 HOSPITAL COURSE: Patient is a 40 year old female who was admitted for pancreatitis. On presentation to ED, patient was found to have elevated blood pressure, hyponatremia, leukocytosis and a lipase of 3524. Patient was promptly started on IV fluid, kept NPO. Imaging study was concerning for pancreatitis. US of abdomen which was attributed to her pain. Patient tested positive for Covid-19 at home but negative on two follow up tests during her admission, she was taken off of isolation. Patient was started on IVF hydration, kept NPO and pain medication. Patient was consulted with gastroenterology who added prednisone and recommended repeat MRI or EUS outpatient. The cause of pancreatitis was not determined during admission - hypertriglyceridemia, alcohol, drug induced were all ruled out. Immunology labs were obtained:IgG subclasses - normal, but total IgG low, KENZIE <1:80, CRP elevated and ESR elevated. Hypertensive during admission with sBP>200, dBP>100. Medication was titrated up to amlodipine, hydrochlorothiazide, spironolactone and lisinopril. Will need some adjustment outpatient. Incidental splenomegaly (seen initially in 2018), advised to avoid contact sports. Constipation was treated with miralax, senokot and docusate. Discharged home on same. Significant Medication Changes: - Lisinopril 20 mg qday - Percocet 5-325 mg q8hr prn - Prednisone 40 mg qday x 2 weeks, 20 mg qday 5 days, 10 mg qday 5 days, 2.5 mg qday x 5 days - Amlodipine 10 mg PO nightly - Hydrochlorothiazide 25 mg PO daily - Spironolactone 25 Mg PO daily - medications for BP will likely need some adjustments once pain resolved and off prednisone. She has been advised to monitor BP and follow up with PCP to ensure correct increase or decrease of meds. - zofran 4mg ODT as needed - Glycolax, senokot-s - daily until constipation resolves SIGNIFICANT DIAGNOSTIC STUDIES: CTA Chest W WO (PE study) Result Date: 06/28/2021 IMPRESSION: No pulmonary thromboembolic disease detected. Other findings as described including possible pancreatitis. MRI ABDOMEN WO CONTRAST Result Date: 06/29/2021 CONCLUSIONS: 1. 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 2. No evidence of cholecystolithiasis or biliary obstruction. XR CHEST PORTABLE Result Date: 06/28/2021 IMPRESSION: Scarring or atelectasis in the left lower lung. US ABDOMEN LIMITED Specify organ? PANCREAS, GALLBLADDER, SPLEEN, LIVER Result Date: 06/29/2021 IMPRESSION: 1. Heterogeneous somewhat hypoechoic appearance of the pancreatic body and tail. Findings may be seen in the setting of pancreatitis. 2. Suggestion of mild hepatic steatosis. 3. Dilatation of the common bile duct and suspicion of slight intrahepatic biliary ductal dilatation. Though some component may be related to prior cholecystectomy, degree of dilatation is more than expected. If clinically warranted consider further evaluation with a or MRCP. 4. Splenomegaly. Consultants: IP CONSULT TO GI Pending Inpatient Studies: Yes, Cancer Antigen 19-9, Discharge Instructions: Diet: ADULT DIET; Regular; Low Sodium (2 gm) Activity:avoid contact sports due to splenomegaly Recommended Outpatient Studies: Sleep study outpatient. MRI abdomen or EUS Disposition: Home Recommended Follow Up: [facility] [address] [facility] [address] [facility] [phone] Call in 3 days Hospital follow up Leon Frias MD [address] [facility] [id number] In 2 weeks Hospital follow u (more content not included)... [facility] 03-07-2018 History of Past i llness Narrative Problem Noted Date Resolved Date Pancreatic abnormality 03/07/2018 8 Tobacco abuse 07/05/2016 03/15/2018 documented as of this encounter (statuses as of 01/06/2022) [facility] History of Past illness Narrative* Problem Noted Date Resolved Date Pancreatic abnormality 03/07/2018 8 Tobacco abuse 07/05/2016 03/15/2018 documented as of this encounter (statuses as of 09/21/2022) [facility] History of Past illness Narrative* Problem Noted Date Resolved Date Pancreatic abnormality 03/07/2018 8 Tobacco abuse 07/05/2016 03/15/2018 documented as of this encounter (statuses as of 10/13/2022) [facility] History of Past illness Narrative* Problem Noted Date Resolved Date Pancreatic abnormality 03/07/2018 8 Tobacco abuse 07/05/2016 03/15/2018 documented as of this encounter (statuses as of 10/14/2022) [place] [id number] History of Past illness Narrative* Problem Noted Date Resolved Date Pancreatic abnormality 03/07/2018 8 Tobacco abuse 07/05/2016 03/15/2018 documented as of this encounter (statuses as of 12/02/2022) [address]18-2018 History of Past illness Narrative* Problem Noted Date Resolved Date Pancreatic abnormality 03/07/2018 8 Tobacco abuse 07/05/2016 03/15/2018 documented as of this encounter (statuses as of 12/03/2022) [address]18-2018 History of Past illness Narrative* Problem Noted Date Diagnosed Date Resolved Date Pancreatic abnormality 03/07/201803/30 Tobacco abuse 07/05/2016 03/15/2018 documented as of this encounter (statuses as of 01/03/2023) [place] [id number] History of Past illness Narrative* Problem Noted Date Diagnosed Date Resolved Date Pancreatic abnormality 03/07/201803/30 Tobacco abuse 07/05/2016 03/15/2018 documented as of this encounter (statuses as of 01/06/2023) [place] [id number] History of Past illness Narrative* Problem Noted Date Diagnosed Date Resolved Date Pancreatic abnormality 03/07/201803/30 Tobacco abuse 07/05/2016 03/15/2018 documented as of this encounter (statuses as of 01/06/2023) [place] [id number] History of Past illness Narrative* Problem Noted Date Diagnosed Date Resolved Date Pancreatic abnormality 03/07/201803/30 Tobacco abuse 07/05/2016 03/15/2018 documented as of this encounter (statuses as of 01/25/2023) [facility] Diagnosis Breakthrough bleeding with IUD- Primary Metrorrhagia Pelvic cramping Unspecified symptom associated with female genital organs [facility] Diagnosis Anxiety disorder, unspecified documented in [facility] Diagnosis Screening for malignant neoplasm of cervix- Primary Screening for malignant neoplasm of the cervix Encounter for gynecological examination (general) (routine) without abnormal findings Encounter for routine checking of intrauterine contraceptive device (IUD) Encounter for screening mammogram for malignant neoplasm of breast Other screening mammogram documented in this encounter [facility] note* Diagnosis Eye injury, unspecified laterality, initial encounter- Primary documented in this encounter [facility] note* Diagnosis Abnormal mammogram- Primary Abnormal mammogram, unspecified documented in this encounter [facility] note* Diagnosis Eye injury, unspecified laterality, initial encounter- Primary documented in this encounter [facility] note* Diagnosis High grade squamous intraepithelial lesion (HGSIL), grade 3 DIONNE, on biopsy of cervix- Primary HPV vaccine counseling Other specified counseling Pre-op exam Preoperative examination, unspecified documented in this encounter [facility] note* Diagnosis High grade squamous intraepithelial lesion (HGSIL), grade 3 DIONNE, on biopsy of cervix- Primary S/P LEEP Other postprocedural status documented in this encounter [facility] note* Diagnosis COVID-19- Primary documented in this encounter [facility] note* Diagnosis Influenza A- Primary Influenza with other respiratory manifestations Acute cough Strain of thoracic back region documented in this encounter [facility] note* Diagnosis Anxiety and depression- Primary Primary hypertension Unspecified essential hypertension Encounter for screening for HIV Encounter for HCV screening test for low risk patient documented in this encounter [facility] note* Diagnosis Anxiety and depression- Primary Primary hypertension Unspecified essential hypertension Encounter for screening for HIV Encounter for HCV screening test for low risk patient documented in this encounter [facility] note* Diagnosis Primary hypertension Unspecified essential hypertension documented in this encounter [facility] note* Diagnosis Anxiety and depression [facility] Attachments The following attachments cannot be sent through Care Everywhere. * Back Muscle Strain (Gambian) * Flu Discharge Instructions, Adult (Gambian) * Cough Discharge Instructions, Adult (Gambian) [facility] Diagnostic Procedure Only (Routine) - Pending Review Specialty Diagnoses / Procedures Referred By Contac t Referred To Contact [facility] Diagnoses Breakthrough bleeding with IUD Pelvic cramping Procedures PELVIC US WHI US PELVIC NONOBSTETRIC REAL-TIME IMAGE COMPLETE Cola, Kt Willoughby MD [address] [place] [address] [facility] [address] [place] [address] Referral ID Status Reason Start Date Expiration Date Visits Requested Visits Authorized [id number] Pending Review Auto-Generat ed Referral 01/06/2022 01/06/2023 1 1 [facility] for referral (narrative)* Diagnostic Procedure Only (Routine) - Pending Review Specialty Diagnoses / [facility] Diagnoses Encounter for screening mammogram for malignant neoplasm of breast Procedures DEL SCREENING SCREENING MAMMOGRAPHY BI 2-VIEW BREAST INC CAD Kt Watson MD [address] [place] [address] [facility] [address] [place] [address] Referral ID Status Reason Start Date Expiration Date Visits Requested Visits Authorized [id number] Pending Review Auto-Generat ed Referral 09/21/2022 10/21/2023 1 1 [facility] for referral (narrative)* Consultation (Urgent) - Pending Review Specialty Diagnoses / Procedures [facility] Referred To Contact Ophthalmology Diagnoses Eye injury, unspecified laterality, initial encounter Procedures KS OFFICE/OUTPATIENT [facility] 60-74 MINUTES Selin Ma MD [address] [place] [address] Nataliia Dobbins MD [address] [place] [address] Referral ID Status Reason Start Date Expiration Date Visits Requested Visits Authorized [id number] Pending Review Specialty Services Required 10/08/2022 10/08/2023 1 1 [facility] for referral (narrative)* Diagnostic Procedure Only (Routine) - Pending Review Specialty Diagnoses / Procedures [facility] To [facility] Diagnoses Abnormal mammogram Procedures US BREAST LTD LEFT US BREAST UNI REAL TIME WITH IMAGE LIMITED Kt Watson MD [address] [place] [address] [facility] [address] [place] [address] Referral ID Status Reason Start Date Expiration Date Visits Requested Visits Authorized [id number] Pending Review Auto-Generat ed Referral 10/12/2022 11/11/2023 1 1 * Diagnostic Procedure Only (Routine) - Pending Review Specialty Diagnoses / Procedures Referred By Contac t Referred To Contact [facility] Diagnoses Abnormal mammogram Procedures DEL DIAGNOSTIC LEFT DIAGNOSTIC MAMMOGRAPHY COMPUTER-AIDED DETCJ Kt Matos MD [address] [place] [address] [facility] [address] [place] [address] Referral ID Status Reason Start Date Expiration Date Visits Requested Visits Authorized [id number] Pending Review Auto-Generat ed Referral 10/12/2022 11/11/2023 1 1 [facility] for referral (narrative)* Diagnostic Procedure Only (Routine) - Pending Review Specialty Diagnoses / Procedures Referred By Suzanne delatorre Referred To Contact [facility] Diagnoses Pre-op exam Procedures SONOHYSTEROGRAPHY (SIS) US WHI SALINE INFUS SONOHYSTEROGRAPHY W/COLOR DOPPLER Daniella Hidalgo DO [address] [place] [address] [address] Referral ID Status Reason Start Date Expiration Date Visits Requested Visits Authorized [id number] Pending Review Auto-Generat ed Referral 01/06/2023 01/06/2024 1 1 [facility] Summary Purpose Family History No Family History Records FoundNo Family History Records FoundNo Family History Records FoundNo Family History Records FoundNo Family History Records Found Advance Directives Latest Code Status on File Code Status Date Activated Date Inactivated Comments Full Code 06/29/2021 1:32 AM 07/04/2021 4:52 PM Documents on File Type Date 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 Advance Directive(s) 10/27/2019 12:00 AM Additional Source Comments INFORMATION SOURCE (unrecogn ized section and content) DATE CREATED AUTHOR 04/01/2018 [facility] DATE CREATED AUTHOR AUTHOR'S ORGANIZ ATION 09/27/2018 [facility] DATE CREATED AUTHOR AUTHOR'S ORGANIZ ATION 03/20/2022 [facility] DATE CREATED AUTHOR AUTHOR'S ORGANIZ ATION 12/10/2023 [facility] DATE CREATED AUTHOR AUTHOR'S ORGANIZ ATION 03/27/2024 [facility] Care Teams (unrecognized sec tion and content) Stack Supervisor Relationship Specialty Start Date End Date Marcello López MD [address] [place] [address] PCP - General Family Medicine 07/10/21 Stack Supervisor Relationship Specialty Start Date End Date Daron Thomas MD PCP - General Family Practice 11/14/19 Stack Supervisor Relationship Specialty Start Date End Date Adri Hodgson MD [address] [place] [address] PCP - General 12/16/21 Stack Supervisor Relationship Specialty Start Date End Date Daron Thomas MD PCP - General Family Medicine 11/14/19 Stack Supervisor Relationship Specialty Start Date End Date Adri Hodgson MD [address] [place] [address] PCP - General 12/16/21 Stack Supervisor Relationship Specialty Start Date End Date Adri Hodgson MD [address] [place] [address] PCP - General 12/16/21 Stack Supervisor Relationship Specialty Start Date End Date Daron Thomas MD PCP - General Family Medicine 11/14/19 Stack Supervisor Relationship Specialty Start Date End Date Daron Thomas MD PCP - General Family Medicine 11/14/19 Stack Supervisor Relationship Specialty Start Date End Date Adri Hodgson MD [address] [place] [address] PCP - General 12/16/21 Stack Supervisor Relationship Specialty Start Date End Date Daron Thomas MD PCP - General Family Medicine 11/14/19 Stack Supervisor Relationship Specialty Start Date End Date Daron Thomas MD PCP - General Family Medicine 11/14/19 Stack Supervisor Relationship Specialty Start Date End Date Daron Thomas MD PCP - General Family Medicine 11/14/19 Stack Supervisor Relationship Specialty Start Date End Date Daron Thomas MD PCP - General Family Medicine 11/14/19 Stack Supervisor Relationship Specialty Start Date End Date Daron Thomas MD PCP - General Family Medicine 11/14/19 Stack Supervisor Relationship Specialty Start Date End Date Adri Hodgson MD [address] [place] [address] PCP - General 12/16/21 Stack Supervisor Relationship Specialty Start Date End Date Adri Hodgson MD [address] [place] [address] PCP - General 12/16/21 Stack Supervisor Relationship Specialty Start Date End Date Adri Hodgson MD [address] [place] [address] PCP - General 12/16/21 Stack Supervisor Relationship Specialty Start Date End Date Adri Hodgson MD [address] [place] [address] PCP - General 12/16/21 Stack Supervisor Relationship Specialty Start Date End Date Adri Hodgson MD [address] [place] [address] PCP - General 12/16/21 Stack Supervisor Relationship Specialty Start Date End Date Adri Hodgson MD [address] [place] [address] PCP - General 12/16/21 Stack Supervisor Relationship Specialty Start Date End Date Sinai Phipps MD [address] [place] [address] PCP - General Family Medicine 12/14/23 Source Comments (unrecognize d section and content) In the event this informatio n is protected by the Federal Confidentiality of Alcohol and Drug Abuse Patient Records regulations: The Federal rules restrict any use of the information to criminally investigate or prosecute any alcohol or drug abuse patient.[facility] the event this information is protected by the Federal Confidentiality of Alcohol and Drug Abuse Patient Records regulations: The Federal rules restrict any use of the information to criminally investigate or prosecute any alcohol or drug abuse patient.[facility] the event this information is protected by the Federal Confidentiality of Alcohol and Drug Abuse Patient Records regulations: The Federal rules restrict any use of the information to criminally investigate or prosecute any alcohol or drug abuse patient.[facility] the event this information is protected by the Federal Confidentiality of Alcohol and Drug Abuse Patient Records regulations: The Federal rules restrict any use of the information to criminally investigate or prosecute any alcohol or drug abuse patient.[facility] the event this information is protected by the Federal Confidentiality of Alcohol and Drug Abuse Patient Records regulations: The Federal rules restrict any use of the information to criminally investigate or prosecute any alcohol or drug abuse patient.[facility] the event this information is protected by the Federal Confidentiality of Alcohol and Drug Abuse Patient Records regulations: The Federal rules restrict any use of the information to criminally investigate or prosecute any alcohol or drug abuse patient.[facility] the event this information is protected by the Federal Confidentiality of Alcohol and Drug Abuse Patient Records regulations: The Federal rules restrict any use of the information to criminally investigate or prosecute any alcohol or drug abuse patient.[facility] the event this information is protected by the Federal Confidentiality of Alcohol and Drug Abuse Patient Records regulations: The Federal rules restrict any use of the information to criminally investigate or prosecute any alcohol or drug abuse patient.[facility] the event this information is protected by the Federal Confidentiality of Alcohol and Drug Abuse Patient Records regulations: The Federal rules restrict any use of the information to criminally investigate or prosecute any alcohol or drug abuse patient.[facility] the event this information is protected by the Federal Confidentiality of Alcohol and Drug Abuse Patient Records regulations: The Federal rules restrict any use of the information to criminally investigate or prosecute any alcohol or drug abuse patient.[facility] the event this information is protected by the Federal Confidentiality of Alcohol and Drug Abuse Patient Records regulations: The Federal rules restrict any use of the information to criminally investigate or prosecute any alcohol or drug abuse patient.[facility] Reason for Visit (unrecogniz ed section and content) Reason Comments Consult Patient states cramp ing that last six months with spotting around the same time she would have her period Reason Comments Med Refill Reason Comments IUD Removal Removal and discuss surgery Reason Onset Date Comments Eye Problem 10/08/2022 Reason Comments Eye Pain X5 days, right eye r ed, watering - 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 No rash noted on exam Flu Symptoms Reason Comments Cough Reason Onset Date Comments Pneumonia 05/31/2023 Reason Comments Annual Exam Check up Reason Comments Missed Appointment No show Scheduled Active and Recently Administ ered Medications (unrecognized section and content) Medication Order 04/09/2023 04/10/2023 04/11/2023 acetaminophen (Tylenol) tablet 1,000 mg (COMPLETED) 1,000 mg, Oral, Once, On Tue04/11/23 at 0930, For 1 dose, Maximum dose of acetaminophen is 4000 mg from all sources in 24 hours. 0932 (Given - Provid er: Westley Yun) oxymetazoline (Afrin) 0.05 % nasal spray 2 spray (COMPLETED) 2 spray, Each Nostril, Once, On Tue04/11/23 at 0930, For 1 dose 0932 (Given - Provid er: Westley Yun) Scheduled Medication Order 05/29/2023 05/30/2023 05/31/2023 naproxen (Naprosyn) tablet 500 mg (COMPLETED) 500 mg, Oral, Once, On Tue05/31/23 at 1310, For 1 dose 1325 (Given - Provid er: Gregoria Vega RN) FOR RECORDS PERTAINING TO PATIENTS WHO ARE OR HAVE BEEN ENROLLED IN A CHEMICAL DEPENDENCY/SUBSTANCEABUSE PROGRAM, SOME INFORMATION MAY BE OMITTED. This clinical summary was aggregated from multiple sources. Caution should be exercised in using it in the provision of clinical care. This summary normalizes information from multiple sources, and as a consequence, information in this document may materially change the coding, format and clinical context of patient data. In addition, data may be omitted in some cases. CLINICAL DECISIONS SHOULD BE BASED ON THE PRIMARY CLINICAL RECORDS. [employer] provides no warranty or guarantee of the accuracy or completeness of information in this document.
== END | disposition home or self-care (01) ==
LOC: MTRAD 16:54
PROVIDERS: PCP Family Medicine; Referring Provider Family Medicine; Visit Provider Family Medicine
DX: M25.561 Pain in right knee (principal)
CPT/HCPCS: 73564

== ENCOUNTER → 2024-05-18 | Outpatient (CLI) | payer BC, SELFPAY ==
[2024-05-18 12:02] LABS: Absolute Lymphocyte Count 2.24 X10^3/uL (0.83-4.51); Absolute Neutrophil Count 4.7 X10^3/uL (2.0-7.7); Basophil# 0.04 X10^3/uL; Basophil% 0.5 % (0-1); Eosinophil# 0.21 X10^3/uL; Eosinophils% 2.8 % (0-5); Hematocrit 39.7 % (37-47); Lymphocyte # 2.24 X10^3/ul (0.83-4.51); Lymphocyte % 29.7 % (19-41); Mean Corp Hgb Conc 32.7 g/dL (32-36); Mean Corpuscular Hgb 27.3 pg (27.0-32.0); Mean Corpuscular Volume 83.2 fL (81-99); Mean Platelet Vol. 10.1 fl (6.2-12.0); Monocyte# 0.34 X10^3/uL; Monocyte% 4.5 % (0-10); NRBC Flagged by Analyzer 0 % (0-5); Neutrophil # 4.68 X10^3/uL (2.7-7.7); Neutrophil % 62.2 % (47-70); Platelet Count 290 K/mm3 (150-450); RBC Distribution Width CV 12.9 % (11.6-14.6); RBC Distribution Width SD 38.9 fl (35.1-43.9); Red Blood Count 4.77 M/mm3 (4.2-5.4); White Blood Count 7.5 K/mm3 (4.4-11.0)
[2024-05-18 12:18] LABS: Vitamin D,25 Hydroxy 32.7 ng/mL
[2024-05-18 12:33] LABS: ALB/GLOB Ratio 1.1 RATIO (0.9-2.4); AST(SGOT) 18 U/L (15-37); Alanine Aminotransfer ALT/SGPT 29 U/L (13-56); Albumin, Serum 3.6 g/dL (3.2-5.0); Alkaline Phosphatase 84 U/L (45-117); Anion Gap 5 (5-15); BUN 11 mg/dL (7-18); BUN/Creat Ratio 22.1 RATIO (10-20); Calcium,Total 9.6 mg/dL (8.5-10.1); Chloride 108 mmol/L (98-107); Cholesterol 124 mg/dL (200); EST Glomerular Filtration Rate 143 mL/min (>60); Est Glom Filt Rate - Afr Amer 173 mL/min (>60); Globulin 3.4 g/dL (2.2-4.2); Glucose 94 mg/dL (74-106); High Density Lipoprotein 62 mg/dL; Potassium 4.1 mmol/L (3.5-5.1); Sodium Level 139 mmol/L (136-145); Thyroid Stim Hormone (TSH) 0.958 uIU/mL (0.358-3.740); Triglycerides 47 mg/dL; Very Low Density Lipoprotein 9 mg/dL (5-40)
[2024-05-18 13:01] LABS: Hemoglobin A1c 5.1 % (3.8-5.6)
== END | disposition home or self-care (01) ==
LOC: MTLAB 09:58
PROVIDERS: PCP Family Medicine; Referring Provider Family Medicine; Visit Provider Family Medicine
DX: I10 Essential (primary) hypertension (principal); E55.9 Vitamin D deficiency, unspecified; E66.811 Obesity, class 1; R53.83 Other fatigue
CPT/HCPCS: 36415; 80053; 80061; 82306; 83036; 84443; 85025

== ENCOUNTER 2024-09-12 06:51 | Inpatient (IN) | payer BC, SELFPAY ==
[2024-09-12] VITALS (10 sets, daily range): BP systolic 104–203; BP diastolic 65–166; PULSE 71–95; RESP 15–19; TEMP 36.3–36.9; O2SAT 93–100; BMI 35.6; BMI 35.3
--- NOTE | 2024-09-12 07:16 | CT_ITS ---
EXAM: CT of the abdomen and pelvis with contrast, with sagittal and coronal reconstructed images. CLINICAL HISTORY: Abdominal pain. Concern for possible pancreatitis. COMPARISON: None. TECHNIQUE: CT of the abdomen and pelvis with contrast, with sagittal and coronal reconstructed images. FINDINGS: The pancreas is edematous, with indistinct morphology, particularly in the region of the tail. Adjacent retroperitoneal [id number] amount of free fluid is also seen. Also, edema is seen in the fat adjacent to the pancreas. This is consistent with pancreatitis. No pancreatic duct dilation is seen. No defined mass is evident. Prior cholecystectomy. Diffuse fatty infiltration of the liver is seen. Hepatomegaly is noted. The remaining abdominal organs show no abnormality. Kidneys are unremarkable in appearance. An incompletely filled urinary bladder shows no abnormality. The visualized lung bases show mild dependent atelectasis. No pleural effusion is seen. No adenopathy is seen. No evidence of pneumoperitoneum. No free fluid is seen within the pelvis. No evidence of abdominal aortic aneurysm. No acute osseous changes seen. Mild degenerative changes of the visualized spine are noted. CT/Abdomen/Pelvis W IV Cont ONLY IMPRESSION: Findings highly concerning for the presence of pancreatitis. Reading Location: [id number]
--- NOTE | 2024-09-12 07:18 | ED.VIS.GI ---
HPI HPI - GI History of Present Illness Chief Complaint: Abd Pain Informant: patient Narrative Narrative: 43-year-old female presenting to the emergency room with a chief complaint of abdominal pain. Patient states that last evening she had a spicy meatloaf. She states about 2 hours later she began to feel bloated and gassy. She tried some Pepto-Bismol with no relief. She states she was up most the night with discomfort in her epigastrium left upper quadrant. It has persisted. She describes it as dull achy and radiating towards the left kidney. She has not had a bowel movement today. She notes normal bowel movement yesterday. No vomiting. No fevers. She states that it reminds her of when her pancreas was enlarged in 2019 after having COVID and was treated with steroids. She does not know anything more about that episode and it was not done at this hospital. Patient denies any medical problems but does take Paxil for anxiety lisinopril for hypertension and ipratropium bromide for allergy symptoms. She denies any urinary symptoms. She states her blood pressure is high this morning and is declining further blood pressure readings at this time because it hurts her arm. Patient notes minimal alcohol intake [facility] Medical History (Updated 09/12/24 @ 09:[address] Charlotte Gibbs DO) Pancreatitis Hypertension Anxiety Home Medications ?Medication ?Instructions ?Recorded ?Last Taken ?Type fluoxetine 40 mg capsule 40 mg PO DAILY 09/12/24 Unknown History ipratropium bromide 42 mcg (0.06 1 spray intranasal TID PRN PRN 09/12/24 Unknown History %) nasal spray allergy symptoms lisinopril 5 mg tablet 5 mg PO DAILY 09/12/24 Unknown History Allergy/AdvReac Type Severity Reaction Status Date / Time No Known Allergies Allergy Verified 09/12/24 06:59 Surgical History (Updated 09/12/24 @ 08:22 by Deborah Tijerina) Hx of cholecystectomy Social History Smoking Status: Former smoker ROS ROS ED Constitutional Constitutional ED: Denies chills, fever(s) or weight loss Eyes Eyes: Denies change in vision or diplopia ENT ENT ED: Denies ear pain, rhinorrhea or sore throat Cardiovascular Cardiovascular: Denies chest pain, orthopnea, palpitations or racing heartbeat Respiratory/Chest Respiratory/Chest: Denies cough, dyspnea or orthopnea Gastrointestinal Gastrointestinal: Reports abdominal pain and nausea; Denies diarrhea or vomiting Genitourinary Genitourinary ED: Denies dysuria, hematuria or urinary frequency Musculoskeletal Musculoskeletal: Denies arthralgias or myalgias Integumentary Denies abscess or rash Neurologic Neurologic: Denies headache(s) or weakness Psychiatric Psychiatric: Denies anxiety, depression, suicidal ideation or suicidal thoughts Endocrine Endocrinology: Denies polydipsia, polyphagia or polyuria Allergic/Immunologic Allergic/Immunologic ED: Denies mouth swelling, tongue swelling or urticaria EXAM Physical Exam Const Vital Signs: 09/12/24 06:52 09/12/24 06:52 09/12/24 08:52 Temperature 97.6 F L Temperature Source Oral Pulse Rate 75 71 82 Respiratory Rate 18 18 15 Blood Pressure 203/166 H 170/101 H Blood Pressure Mean 178 124 Pulse Ox 100 99 95 Oxygen Delivery Method Room Air Room Air Room Air Positive well nourished, well developed and obese General Appearance ED: well developed and NAD Nutritional Appearance: obese HEENT Reports normocephalic, head/scalp atraumatic and moist mucous membranes Eyes PERRL and EOMs intact bilaterally Neck no lymphadenopathy, supple and no JVD Resp normal respiratory effort and clear to auscultation bilaterally Cardio regular rate, regular rhythm and no murmurs GI Inspection: Negative for abdominal distention Auscultation: normoactive bowel sounds Palpation: soft and tender epigastric and LUQ Back/Spine no CVA tenderness and normal ROM Extremity normal to inspection General Extremety ED: Negative for edema General Extremity: Negative for edema Neuro oriented x3 and CN's II-XII intact bilaterally Sensorium / Orientation: alert Motor Exam: strength 5/5 throughout Psych mental status grossly normal Mood & Affect: Negative for depressed or tearful Skin no rashes or lesions noted and no wounds MDM MDM MDM Narrative Medical decision making narrative: Differential diagnosis includes but not limited to choledocholithiasis biliary colic pancreatitis gastroenteritis gastric ulcer duodenal ulcer bowel obstruction Patient developed chest pain after the administration of morphine. EKG shows a normal sinus rhythm. White count elevated 13.9 hemoglobin of 14. Glucose of 118 creatinine 0.59. Troponin is less than 6 lipase 1599 normal liver enzymes. Urinalysis is negative alcohol is negative. Triglycerides are 89. CT of the abdomen pelvis was obtained read by radiology reviewed by myself. This is consistent with pancreatitis. Please see radiologist read. I was able to log into [employer] and review some records from [facility]. It looks like in 2021 she was admitted for pancreatitis with an unknown cause. It was noted on their imaging that the patient has had prior cholecystectomy. Patient received morphine and Zofran as well as IV fluids. She also received Ativan and 1/2 mg of Dilaudid as well as continued IV fluids. For her hypertension it is down to 170/101 and we administered hydralazine. Plan of care is admission in the hospital. History & Record Review Discussion w/independent historian: Patient Lab Data Attestation: I reviewed the patient's lab results. Labs: Laboratory Results - last 24 hr 09/12/24 09/12/24 09/12/24 07:12 07:25 08:10 WBC 13.9 H RBC 5.19 Hgb 14.0 Hct 42.8 MCV 82.5 MCH 27.0 MCHC 32.7 RDW Std Deviation 39.1 RDW Coeff of Chelsie 13.1 Plt Count 371 MPV 9.9 Immature Gran % (Auto) 0.400 Neut % (Auto) 80.0 H Lymph % (Auto) 13.0 L [place] % (Auto) 4.5 Eos % (Auto) 1.7 Baso % (Auto) 0.4 Absolute Neuts (auto) 11.2 H Absolute Lymphs (auto) 1.81 Nucleated RBC % 0 Sodium 135 Potassium 4.4 Chloride 102 Carbon Dioxide 22.7 Anion Gap 11 BUN 4 Creatinine 0.59 L Estim Creat Clear Calc 136.91 Est GFR (MDRD) Non-Af 115 BUN/Creatinine Ratio 7.1 L Glucose 118 H Calcium 9.8 Total Bilirubin 0.52 Direct Bilirubin 0.20 AST 19 ALT 20 Alkaline Phosphatase 73 Troponin T High Sens < 6 Total Protein 4.6 L Albumin 4.5 Globulin 0.2 L Triglycerides 89 Lipase 1599 H Serum , Qual NEGATIVE Urine Color Yellow Urine Clarity Sl. Cloudy Urine pH 8.0 Ur Specific [place] 1.015 Urine Protein 15 H Urine Glucose (UA) Normal Urine Ketones Negative Urine Occult Blood Negative Urine Nitrite Negative Urine Bilirubin Negative Urine Urobilinogen Normal Ur Leukocyte Esterase Negative Urine Opiates Screen NEGATIVE U Buprenorphine Qual NEGATIVE Ur Oxycodone Screen NEGATIVE Urine Methadone Screen NEGATIVE Urine Fentanyl Screen NEGATIVE Ur Barbiturates Screen NEGATIVE Ur Phencyclidine Scrn NEGATIVE Ur Amphetamines Screen NEGATIVE U Benzodiazepines Scrn NEGATIVE Urine Cocaine Screen NEGATIVE U Cannabinoids Screen NEGATIVE Ethyl Alcohol < 10.1 Radiography Diagnostic Testing: Clinical Impression(s) from Imaging Studies Abdomen/Pelvis CT 09/12/24 07:16 IMPRESSION: Findings highly concerning for the presence of pancreatitis. Reading Location: [address] EKG Initial EKG: Attestation: I personally reviewed and interpreted this EKG as follows: Comments: Normal sinus rhythm ventricular rate of 71 bpm Management Discussion w/another healthcare provider: Hospitalist Discharge Plan Dx/Rx/DC Orders Clinical Impression: Acute abdominal pain, Acute pancreatitis, Hypertension, Chest pain Disposition Disposition: Acute Care Hospital [facility] Discharge Date/Time: 09/12/24 10:03
[2024-09-12 07:28] LABS: Absolute Lymphocyte Count 1.81 X10^3/uL (0.83-4.51); Absolute Neutrophil Count 11.2 X10^3/uL (2.0-7.7); Basophil# 0.05 X10^3/uL; Basophil% 0.4 % (0-1); Eosinophil# 0.24 X10^3/uL; Eosinophils% 1.7 % (0-5); Hematocrit 42.8 % (37-47); Lymphocyte # 1.81 X10^3/ul (0.83-4.51); Mean Corp Hgb Conc 32.7 g/dL (32-36); Mean Corpuscular Volume 82.5 fL (81-99); Mean Platelet Vol. 9.9 fl (6.2-12.0); Monocyte# 0.62 X10^3/uL; Monocyte% 4.5 % (0-10); NRBC Flagged by Analyzer 0 % (0-5); Neutrophil # 11.16 X10^3/uL (2.7-7.7); Platelet Count 371 K/mm3 (150-450); RBC Distribution Width CV 13.1 % (11.6-14.6); RBC Distribution Width SD 39.1 fl (35.1-43.9); Red Blood Count 5.19 M/mm3 (4.2-5.4); White Blood Count 13.9 K/mm3 (4.4-11.0)
[2024-09-12] MEDS: Morphine 4 MG/ML Syringe IV (07:28)
[2024-09-12] MEDS: 0.9% Normal Saline (1000mL) 1,000 ML 999 ML IV (07:28)
[2024-09-12] MEDS: Ondansetron 4 MG/2 ML Vial IV ×3 (07:28→20:21)
[2024-09-12 07:36] LABS: Mucous, Urine 0 SEEN /hpf (<or=2+); White Blood Cells 0 SEEN /hpf (0-5)
[2024-09-12 07:59] LABS: AST(SGOT) 19 U/L (<=31); Alanine Aminotransfer ALT/SGPT 20 U/L (<=34); Albumin, Serum 4.5 g/dL (3.5-5.0); Alkaline Phosphatase 73 U/L (35-104); Anion Gap 11 (5-15); BUN 4 mg/dL (4-19); BUN/Creat Ratio 7.1 RATIO (10-20); Calcium,Total 9.8 mg/dL (7.6-11.0); Carbon Dioxide 22.7 mmol/L (21.0-32.0); Chloride 102 mmol/L (98-108); Creatinine, Serum 0.59 mg/dL (0.70-1.20); EST Glomerular Filtration Rate 115 (>60); Estimated Creatinine Clearance 136.91 ml/min (50-250); Globulin 0.2 g/dL (2.2-4.2); Glucose 118 mg/dL (70-99); Potassium 4.4 mmol/L (3.3-5.1); Protein, Total 4.6 g/dL (5.9-8.4); Sodium Level 135 mmol/L (133-145); Total Bilirubin 0.52 mg/dL (0.00-1.30)
[2024-09-12 08:00] LABS: Color, Urine Yellow (Yellow); Glucose, Dipstick Normal (Normal); Ketone-Dipstick Negative (Negative); Leukocyte Esterase-Dipstick Negative /ul (Negative); Nitrite-Dipstick Negative (Negative); Occult Blood-Urine Negative /ul (Negative); Protein-Dipstick 15 mg/dl (Negative); Specific Gravity, Urine 1.015 (1.002-1.030); Urine Bilirubin Dipstick Negative (Negative); Urine Clarity Sl. Cloudy (Clear); Urine Urobilinogen Normal (Normal)
--- NOTE | 2024-09-12 08:02 | EKG12_ITS ---
Test Reason : ABD PAIN Blood Pressure : */* mmHG Vent. Rate : 71 BPM Atrial Rate : 71 BPM P-R Int : 142 ms QRS Dur : 86 ms QT Int : 420 ms P-R-T Axes : 47 30 41 degrees QTcB Int : 456 ms Normal sinus rhythm Normal ECG Confirmed by DAQUAN SALGADO, DEBBIE ([id number]), website/blog editor BONITA MCKINNON ([id number]) on 09/13/2024 8:01:54 AM Referred By: Confirmed By: DEBBIE BUTT MD
[2024-09-12] MEDS: Lorazepam 2 MG/ML WCH Syringe 1 MG IV (08:08)
[2024-09-12 08:17] LABS: Internal QC Validated? YES +Cl - CLEAR BKGD; Pregnancy, Serum, hCG Quali. NEGATIVE Negative
[2024-09-12 08:23] LABS: Lipase 1599 U/L (13-75)
[2024-09-12 08:47] LABS: Troponin T High Sensitivity < 6 ng/L (<=14)
[2024-09-12 08:49] LABS: Alcohol, Blood (Medical)-Serum < 10.1 mg/dL (<=10.0)
[2024-09-12 09:09] LABS: Amphetamine Urine NEGATIVE (<1000 ng/mL); Barbiturate Urine NEGATIVE (< 200 ng/mL); Benzodiazepine Urine NEGATIVE (< 200 ng/mL); Buprenorphine Urine NEGATIVE (< 200 ng/mL); Cocaine Urine NEGATIVE (< 300 ng/mL); Fentanyl, Urine NEGATIVE; Methadone Urine NEGATIVE (< 300 ng/mL); Opiates Urine NEGATIVE (< 300 ng/mL); Oxycodone, Urine NEGATIVE (< 100 ng/mL); PCP Urine NEGATIVE (< 25 ng/mL); THC Urine NEGATIVE (< 50 ng/mL)
[2024-09-12] MEDS: hydrALAZINE 20 MG/ML Vial 10 MG IV ×4 (09:20→23:33)
[2024-09-12] MEDS: HYDROmorphone 0.5 MG/0.5 ML SYRINGE IV ×4 (09:20→18:56)
[2024-09-12] MEDS: 0.9% Normal Saline (1000mL) 1,000 ML 250 ML IV ×3 (09:21→20:01)
--- NOTE | 2024-09-12 09:41 | HP.PCM.HOS_ITS ---
HPI - General General Date of Admission: 09/12/24 Date of Service: 09/12/24 Chief Complaint: Abdominal pain nausea abdominal pain/nausea HPI Narrative CASIMIRO PUTNAM, is a 43 F who presented to the emergency department [facility] [place] on 09/12/2024 with abdominal pain and nausea that started yesterday. The patient states she had some spicy meat loaf and about 2 hours following she began to feel bloated and gassy. She tried some Pepto-Bismol but had no relief with this. Patient indicated she was up most the night with epigastric and left upper quadrant pain persisted. She described it as achy and dull and radiated towards her left flank area. She also complained of some associated mild mid back pain. She had a normal bowel movement yesterday and has been passing flatus. She denies any vomiting but did have nausea. Denies any fevers. She did have pancreatitis in 2021 and was admitted at [facility] at which time the etiology of her pancreatitis was not found. She did states she had a MRI that was unremarkable for any findings. She does have a history of cholecystectomy done 19 years ago. She takes minimal medication including nasal spray, fluoxetine, and lisinopril. She has been told she has elevated blood pressure previously but stopped taking most of her medications. She does not drink alcohol on a regular basis. It appears she has had previous triglyceride levels done which were not markedly elevated. Vital signs on presentation showed temperature of 97.6, heart rate 75, respiratory 18, initial blood pressure was 1 203/166 with a repeat after labetalol at 170/101. CBC showed a mild leukocytosis with a white count of 13.9. She did have a left shift with an 80% neutrophilia. Chemistry panel was unremarkable. Glucose was 118. Liver functions were normal. Troponins were less than 6 x 2. Triglycerides were 89. Her lipase was 1599. test was negative. Her UA is not consistent with infection. Toxicology screen was negative. Ethyl alcohol level is less than 10. CT of the abdomen pelvis showed the pancreas was edematous with small to moderate amount of free fluid in the rectal peritoneal region as well as edema in the fat adjacent to the pancreas consistent with pancreatitis with no pancreatic duct dilation and no mass identified. She had diffuse fatty infiltration of the liver with hepatomegaly. [facility] Medical History Pancreatitis Hypertension Anxiety Home Medications ?Medication ?Instructions ?Recorded ?Last Taken ?Type fluoxetine 40 mg capsule 40 mg PO DAILY 09/12/24 Unkn own History ipratropium bromide 42 mcg (0.06 1 spray intranasal TI D PRN PRN 09/12/24 Unknown History %) nasal spray allergy symptoms lisinopril 5 mg tablet 5 mg PO DAILY 09/12/24 Unkno wn History Allergy/AdvReac Type Severity Reaction Status Date / Time No Known Allergies Allergy Verified 09/12/24 06:59 no significant family history Surgical History Hx of cholecystectomy Social History (Updated 09/12/24 @ 17:[address] Charlotte Gibbs DO) Smoking Status: Former smoker alcohol intake: current alcohol intake frequency: 0-2 drinks per day substance use type: does not use ROS Constitutional Constitutional: Denies anorexia, change in weight, chills, fatigue, fever(s), malaise, night sweats, weakness or other Eyes Eyes: Denies blurry vision, change in eye color, change in vision, discharge from eye(s), double vision, erythema, eye pain, loss of vision or other ENT HEENT: Denies abnormal hearing, dysphagia, ear pain, epistaxis, headache(s), hearing loss, nasal congestion, nasal discharge, post nasal drip, sinus pressure, sore throat or other Cardiovascular Cardiovascular: Denies chest pain, claudication, dyspnea on exertion, edema, lightheadedness, orthopnea, palpitations, paroxysmal nocturnal dyspnea, rapid heart rate, syncope or other Respiratory/Chest Respiratory/Chest: Denies cough, dyspnea, excessive phlegm production, hemoptysis, productive cough, shortness of breath at rest, shortness of breath with exertion, wheezing or other Gastrointestinal Gastrointestinal: Reports abdominal pain and nausea; Denies coffee ground emesis, constipation, diarrhea, dyspepsia, hematemesis, hematochezia, loose stools, melena, vomiting or other Genitourinary Genitourinary: Denies burning urination, difficulty urinating, dysuria, hematuria, nocturia, urinary frequency, urinary hesitancy, urinary incontinence, urinary urgency or other Musculoskeletal Musculoskeletal: Reports back pain; Denies arthralgias, joint pain, joint stiffness, joint swelling, myalgias, neck pain or other Neurologic Neurologic: Denies abnormal gait, abnormal speech, confusion, disequilibrium, dizziness, focal weakness, headache(s), numbness, paresthesias, seizure-like activity, seizures, syncope, tingling, tremor(s) or other Psychiatric Psychiatric: Reports anxiety; Denies depression, homicidal ideation, suicidal ideation or other Endocrine Endocrinology: Denies change in body appearance, cold intolerance, excessive sweating, heat intolerance, polydipsia, polyuria or other Hematologic/Lymphatic Hematologic/Lymphatic: Denies anemia, easy bleeding, easy bruising, lymphadenopathy or other Allergic/Immunologic Allergic/Immunologic: Denies rhinitis, hives, eczemia, asthma or other Vital Signs Vital Signs Vital Signs: 09/12/24 06:52 09/12/24 06:52 09/12/24 08:52 Temperature 97.6 F L Temperature Source Oral Pulse Rate 75 71 82 Respiratory Rate 18 18 15 Blood Pressure 203/166 H 170/101 H Blood Pressure Mean 178 124 Pulse Ox 100 99 95 Oxygen Delivery Method Room Air Room Air Room Air Weight Weight: 94.3 kg Body Mass Index (BMI) 35.6 Physical Exam Const alert, oriented x3, no apparent distress and well nourished Constitutional Narrative: Obese, middle-aged, white female, sitting up in bed, appears mildly uncomfortable but nontoxic General Appearance: cooperative HEENT normocephalic, head/scalp atraumatic, hearing grossly normal bilaterally and moist oral mucous membranes HEENT Narrative: Mallampati 3, no thrush, dentition is good Resp normal respiratory effort, no retractions, no use of accessory muscles and clear to auscultation bilaterally Auscultation: Negative for rales, rhonchi or wheezes Cardio regular rate, regular rhythm, S1 normal heart sound, S2 normal heart sound, no murmurs, no rub, no gallops and no clicks GI normal to inspection, nondistended, normoactive bowel sounds and soft to palpation GI Narrative: Tenderness in the epigastrium and the left upper quadrant radiating to the left flank area, protuberant abdomen Extremity no clubbing, cyanosis or edema Extremity Narrative: Pedal and radial pulses are 2+ Neuro oriented x3, moves all extremities and no focal motor deficits Speech: speech normal Psych affect normal Psych Narrative: Appears calm at this time, interacts appropriately, eye contact is good Results Lab / Micro Data 09/12/24 07:12 09/12/24 07:12 Labs: Laboratory Results - last 24 hr 09/12/24 07:12: WBC 13.9 H, RBC 5.19, Hgb 14.0, Hct 42.8, MCV 82.5, MCH 27.0, MCHC 32.7, RDW Std Deviation 39.1, RDW Coeff of Chelsie 13.1, Plt Count 371, MPV 9.9, Immature Gran % (Auto) 0.400, Neut % (Auto) 80.0 H, Lymph % (Auto) 13.0 L, [place] % (Auto) 4.5, Eos % (Auto) 1.7, Baso % (Auto) 0.4, Absolute Neuts (auto) 11.2 H, Absolute Lymphs (auto) 1.81, Nucleated RBC % 0, Sodium 135, Potassium 4.4, Chloride 102, Carbon Dioxide 22.7, Anion Gap 11, BUN 4, Creatinine 0.59 L, Estim Creat Clear Calc 136.91, Est GFR (MDRD) Non-Af 115, BUN/Creatinine Ratio 7.1 L, Glucose 118 H, Calcium 9.8, Total Bilirubin 0.52, Direct Bilirubin 0.20, AST 19, ALT 20, Alkaline Phosphatase 73, Troponin T High Sens < 6, Total Protein 4.6 L, Albumin 4.5, Globulin 0.2 L, Lipase 1599 H, Serum , Qual NEGATIVE 09/12/24 07:25: Urine Color Yellow, Urine Clarity Sl. Cloudy, Urine pH 8.0, Ur Specific [place] 1.015, Urine Protein 15 H, Urine Glucose (UA) Normal, Urine Ketones Negative, Urine Occult Blood Negative, Urine Nitrite Negative, Urine Bilirubin Negative, Urine Urobilinogen Normal, Ur Leukocyte Esterase Negative, Urine Opiates Screen NEGATIVE, U Buprenorphine Qual NEGATIVE, Ur Oxycodone Screen NEGATIVE, Urine Methadone Screen NEGATIVE, Urine Fentanyl Screen NEGATIVE, Ur Barbiturates Screen NEGATIVE, Ur Phencyclidine Scrn NEGATIVE, Ur Amphetamines Screen NEGATIVE, U Benzodiazepines Scrn NEGATIVE, Urine Cocaine Screen NEGATIVE, U Cannabinoids Screen NEGATIVE 09/12/24 08:10: Ethyl Alcohol < 10.1 Imaging Radiology Impression Abdomen/Pelvis CT 09/12/24 07:16 IMPRESSION: Findings highly concerning for the presence of pancreatitis. Reading Location: [address] Assessment & Plan Assessment/Plan (1) Acute pancreatitis: (2) Hypertension: (3) Leukocytosis: PLAN: Plan Acute pancreatitis -N.p.o. with sips and chips sparingly -As needed pain medication -Aggressive IV fluids with 250 cc an hour of normal saline -Antiemetics as needed -No further imaging at this time patient had an MRI/MRCP 2 years ago when she had a pancreatitis attack in [place] and it was benign per her report -Will have her follow-up as an outpatient with GI after discharge for further workup -Imaging consistent with pancreatitis but no masses or nodules are noted Leukocytosis -Likely reactive -No signs of infection -Will trend Hypertension -Patient appears to have a history of hypertension and reportedly was discharged on more medications than she is currently on -Will hold lisinopril but anticipate patient will need more than 5 mg at discharge -Hydralazine 10 mg every 6 hours scheduled for now -Monitor blood pressure and treat accordingly Hepatomegaly -Suspect nonalcoholic fatty liver disease -Recommend weight loss -Outpatient GI referral after discharge Anxiety/depression -Continue home fluoxetine Obesity -BMI 35.3 -Recommend weight loss -Complicates treatment, prognosis, outcomes DVT prophylaxis -Lovenox subcu daily CODE STATUS -Full code Charges/Coding Visit Charges Inpatient E&M: 89437 Init Hosp L2
[2024-09-12 09:59] LABS: Triglycerides 89 mg/dL
[2024-09-12 10:49] LABS: Amorphous Sediment 2+; Red Blood Cells-Urine 0 SEEN /hpf (0-5); Squamous Epithelial Cells - UA 0-5 SEEN /hpf (5-10)
[2024-09-12 10:50] LABS: Bacteria 1+ /hpf (None Seen)
[2024-09-12 12:11] LABS: Troponin T High Sens 2 HR < 6 ng/L (<=14)
[2024-09-12] MEDS: Enoxaparin 40 MG/0.4 ML Syringe SC (12:22)
[2024-09-12] MEDS: Fluoxetine HCl 40 MG CAPSULE PO (12:23)
[2024-09-12] MEDS: HYDROmorphone 1 MG/ML Syringe IV (22:07)
[2024-09-13] VITALS (8 sets, daily range): BP systolic 134–156; BP diastolic 80–99; PULSE 90–102; RESP 15–18; TEMP 36.7; O2SAT 90–94; BMI 37.1
[2024-09-13] MEDS: 0.9% Normal Saline (1000mL) 1,000 ML 250 ML IV ×6 (00:23→20:42)
[2024-09-13] MEDS: HYDROmorphone 1 MG/ML Syringe IV (01:11)
[2024-09-13] MEDS: HYDROmorphone 0.5 MG/0.5 ML SYRINGE IV ×7 (04:07→22:52)
[2024-09-13] MEDS: hydrALAZINE 20 MG/ML Vial 10 MG IV ×3 (05:52→18:07)
[2024-09-13 06:10] LABS: Absolute Lymphocyte Count 1.27 X10^3/uL (0.83-4.51); Absolute Neutrophil Count 13.9 X10^3/uL (2.0-7.7); Basophil# 0.03 X10^3/uL; Basophil% 0.2 % (0-1); Hematocrit 34.9 % (37-47); Hemoglobin 11.3 g/dL (12.0-15.0); Lymphocyte # 1.27 X10^3/ul (0.83-4.51); Lymphocyte % 7.9 % (19-41); Mean Corp Hgb Conc 32.4 g/dL (32-36); Mean Corpuscular Hgb 27.2 pg (27.0-32.0); Mean Corpuscular Volume 83.9 fL (81-99); Mean Platelet Vol. 10.1 fl (6.2-12.0); Monocyte# 0.76 X10^3/uL; Monocyte% 4.7 % (0-10); NRBC Flagged by Analyzer 0 % (0-5); Neutrophil % 86.6 % (47-70); Platelet Count 299 K/mm3 (150-450); RBC Distribution Width CV 14.1 % (11.6-14.6); RBC Distribution Width SD 43.5 fl (35.1-43.9); Red Blood Count 4.16 M/mm3 (4.2-5.4); White Blood Count 16.1 K/mm3 (4.4-11.0)
[2024-09-13 06:36] LABS: ALB/GLOB Ratio 1.4 RATIO (0.9-2.4); AST(SGOT) 28 U/L (<=31); Alanine Aminotransfer ALT/SGPT 26 U/L (<=34); Albumin, Serum 3.5 g/dL (3.5-5.0); Alkaline Phosphatase 87 U/L (35-104); Anion Gap 9 (5-15); BUN 12 mg/dL (4-19); BUN/Creat Ratio 23.9 RATIO (10-20); Calcium,Total 8.7 mg/dL (7.6-11.0); Carbon Dioxide 20.7 mmol/L (21.0-32.0); Chloride 108 mmol/L (98-108); EST Glomerular Filtration Rate 119 (>60); Estimated Creatinine Clearance 165.13 ml/min (50-250); Globulin 2.5 g/dL (2.2-4.2); Glucose 90 mg/dL (70-99); Magnesium 2.1 mg/dL (1.5-2.2); Phosphorus 2.7 mg/dL (2.7-4.5); Sodium Level 138 mmol/L (133-145); Thyroid Stim Hormone (TSH) 0.397 uIU/mL (0.300-4.200); Total Bilirubin 0.54 mg/dL (0.00-1.30)
[2024-09-13] MEDS: Ondansetron 4 MG/2 ML Vial IV (07:18)
--- NOTE | 2024-09-13 07:18 | PCM.PN.HOSP ---
Reason for Visit Reason for Visit: Abdominal pain Subjective Subjective Patient states she still having abdominal pain. States her pain is better controlled on the Dilaudid now. Is having some associated back pain which is to be expected. No significant nausea or vomiting at this time. Asked for something for sleep. Objective Data Objective Data Vital Signs: Vital Signs Temp Pulse Resp BP Pulse Ox O2 Del Method 97.3 F L 95 16 142/85 H 93 Room Air 09/12/24 23:00 09/13/24 05:52 09/12/24 23:00 09/13/24 05:52 09/12/24 23:00 09/12/24 23:00 Oxygen Delivery Method Room Air Weight: 98.2 kg Body Mass Index (BMI) 37.1 Intake & Output: Intake and Output for Last 24 Hours 09/11/24 09/12/24 09/13/24 23:59 23:59 23:59 Intake Total 3000 / 3000 Balance 3000 / 3000 Lab / Micro Data 09/13/24 05:08 09/13/24 05:08 Labs: Laboratory Results - last 24 hr 09/12/24 07:12: WBC 13.9 H, RBC 5.19, Hgb 14.0, Hct 42.8, MCV 82.5, MCH 27.0, MCHC 32.7, RDW Std Deviation 39.1, RDW Coeff of Chelsie 13.1, Plt Count 371, MPV 9.9, Immature Gran % (Auto) 0.400, Neut % (Auto) 80.0 H, Lymph % (Auto) 13.0 L, [place] % (Auto) 4.5, Eos % (Auto) 1.7, Baso % (Auto) 0.4, Absolute Neuts (auto) 11.2 H, Absolute Lymphs (auto) 1.81, Nucleated RBC % 0, Sodium 135, Potassium 4.4, Chloride 102, Carbon Dioxide 22.7, Anion Gap 11, BUN 4, Creatinine 0.59 L, Estim Creat Clear Calc 136.91, Est GFR (MDRD) Non-Af 115, BUN/Creatinine Ratio 7.1 L, Glucose 118 H, Calcium 9.8, Total Bilirubin 0.52, Direct Bilirubin 0.20, AST 19, ALT 20, Alkaline Phosphatase 73, Troponin T High Sens < 6, Total Protein 4.6 L, Albumin 4.5, Globulin 0.2 L, Triglycerides 89, Lipase 1599 H, Serum , Qual NEGATIVE 09/12/24 07:25: Urine Color Yellow, Urine Clarity Sl. Cloudy, Urine pH 8.0, Ur Specific [place] 1.015, Urine Protein 15 H, Urine Glucose (UA) Normal, Urine Ketones Negative, Urine Occult Blood Negative, Urine Nitrite Negative, Urine Bilirubin Negative, Urine Urobilinogen Normal, Ur Leukocyte Esterase Negative, Urine RBC 0 SEEN, Urine WBC 0 SEEN, Ur Squamous Epith Cells 0-5 SEEN, Amorphous Sediment 2+, Urine Bacteria 1+, Urine Mucus 0 SEEN, Urine Opiates Screen NEGATIVE, U Buprenorphine Qual NEGATIVE, Ur Oxycodone Screen NEGATIVE, Urine Methadone Screen NEGATIVE, Urine Fentanyl Screen NEGATIVE, Ur Barbiturates Screen NEGATIVE, Ur Phencyclidine Scrn NEGATIVE, Ur Amphetamines Screen NEGATIVE, U Benzodiazepines Scrn NEGATIVE, Urine Cocaine Screen NEGATIVE, U Cannabinoids Screen NEGATIVE 09/12/24 08:10: Ethyl Alcohol < 10.1 09/12/24 11:40: Troponin T Hi Sens 2 Hr < 6 09/13/24 05:08: WBC 16.1 H, RBC 4.16 L, Hgb 11.3 L, Hct 34.9 L, MCV 83.9, MCH 27.2, MCHC 32.4, RDW Std Deviation 43.5, RDW Coeff of Chelsie 14.1, Plt Count 299, MPV 10.1, Immature Gran % (Auto) 0.600, Neut % (Auto) 86.6 H, Lymph % (Auto) 7.9 L, [place] % (Auto) 4.7, Eos % (Auto) 0.0, Baso % (Auto) 0.2, Absolute Neuts (auto) 13.9 H, Absolute Lymphs (auto) 1.27, Nucleated RBC % 0, Sodium 138, Potassium 4.0, Chloride 108, Carbon Dioxide 20.7 L, Anion Gap 9, BUN 12, Creatinine 0.50 L, Estim Creat Clear Calc 165.13, Est GFR (MDRD) Non-Af 119, BUN/Creatinine Ratio 23.9 H, Glucose 90, Calcium 8.7, Phosphorus 2.7, Magnesium 2.1, Total Bilirubin 0.54, AST 28, ALT 26, Alkaline Phosphatase 87, Total Protein 6.0, Albumin 3.5, Globulin 2.5, Albumin/Globulin Ratio 1.4, TSH 0.397 Radiography Diagnostic Testing: Radiology Impression Abdomen/Pelvis CT 09/12/24 07:16 IMPRESSION: Findings highly concerning for the presence of pancreatitis. Reading Location: [address] Physical Exam Const alert, oriented x3, no apparent distress and well nourished; Negative for average body habitus or healthy appearing Constitutional Narrative: Obese, middle-aged, white female, lying in bed watching television, appears mildly uncomfortable but nontoxic General Appearance: cooperative GI normal to inspection, nondistended, normoactive bowel sounds and soft to palpation GI Narrative: Still tenderness in the epigastrium and the left upper quadrant radiating to the left flank area, protuberant abdomen Psych affect normal Psych Narrative: Appears calm at this time, interacts appropriately, eye contact is good Assessment & Plan Assessment/Plan (1) Acute pancreatitis: (2) Hypertension: (3) Leukocytosis: PLAN: Plan Acute pancreatitis -Continue n.p.o. with sips and chips sparingly -As needed pain medication -Continue aggressive IV fluids with 250 cc an hour of normal saline -Antiemetics as needed -Will start clear liquid diet once pain is resolved or resolving -No further imaging at this time patient had an MRI/MRCP 2 years ago when she had a pancreatitis attack in [place] and it was benign per her report -Will have her follow-up as an outpatient with GI after discharge for further workup -Imaging consistent with pancreatitis but no masses or nodules are noted Leukocytosis -Remains reactive -No signs of infection -Will trend Hypertension -Patient appears to have a history of hypertension and reportedly was discharged on more medications than she is currently on -Will hold lisinopril but anticipate patient will need more than 5 mg at discharge -Hydralazine 10 mg every 6 hours scheduled for now -Monitor blood pressure and treat accordingly Hepatomegaly -Suspect nonalcoholic fatty liver disease -Recommend weight loss -Outpatient GI referral after discharge Anxiety/depression -Continue home fluoxetine Obesity -BMI 37.2 -Recommend weight loss -Complicates treatment, prognosis, outcomes DVT prophylaxis -Lovenox subcu daily CODE STATUS -Full code Charges/Coding Visit Charges Inpatient E&M: 57034 [facility] Hosp L1
[2024-09-13] MEDS: Enoxaparin 40 MG/0.4 ML Syringe SC (11:03)
--- NOTE | 2024-09-13 12:15 | CASEMGMT ---
PARAM HENDRIX Assessment Face to Face with patient for initial transition planning/care coordination assessment. PARAM HENDRIX introduced self and role at [facility], pt voices understanding. Pt is A&Ox4 and is resting comfortably in bed and is calm. Care providers, pharmacy, and demographics verified. Admitting dx: Acute Pancreatitis LACE Strata: 1 PCP: Mary Escobar Specialists: Denies Preferred [facility]acy[facility] Insurance: ANTHEM Prescription Benefit: Yes LNOK: Edita (Mom) Living Arrangements: Pt lives with her 20 y/o daughter in a single story home with 3 steps to enter ADLs/IADLs: Ind Transportation: Self, daughter. Denies concerns DME: Denies all DME uses or needs HHC/SNF: Denies Hx or needs Pt?s goal: Home Plan: Home, anticipate no additional needs. 6-Click is 24. Pt denies the need for additional therapy and states that she feels safe returning home with her daughter once she is medically ready and denies further questions or concerns at this time. Report given to LIGHT ADJUSTER CM. CM to follow. Rito Alvarado RN, CM
--- NOTE | 2024-09-13 13:57 | CHAPLAIN ---
Type of Pastoral Visit _x__ Initial Visit ___ Follow-up Visit ___ On-call Visit ___ General Patient Visit ___ Spiritual Assessment ___ Family Conference ___ Bereavement ___ Rapid Response ___ Code Blue ___ Other (describe below) Pastoral Care Referral From _x__ Patient ___ Family ___ Nurse ___ Physician ___ Foreign Correspondent ___ Real Estate Clerk ___ Other (describe below) Sacrament/Intervention ___ Active listening ___ Anointing ___ Congregation ___ Bereavement ___ Communion ___ Tori exploration ___ ___ Life review ___ Prayer ___ Reconciliation ___ Sacrament of Sick _x__ Supportive presence ___ Wedding ___ Other (describe below) Pastoral Comments patient was on the phone with her mother and offered to hang up but mother on the phone said that she could listen in; pt declares I don't feel good at all and agrees that this is an unfortunate situation that she has had before; pt denies any needs or concerns and is matter of fact about it; offered support for a future time if she desires it
[2024-09-13] MEDS: MELATONIN 10 MG TABLET PO (22:13)
[2024-09-14] VITALS (8 sets, daily range): BP systolic 136–156; BP diastolic 86–108; PULSE 84–91; RESP 16–18; TEMP 36.5–36.8; O2SAT 91–95; BMI 37.2
[2024-09-14] MEDS: hydrALAZINE 20 MG/ML Vial 10 MG IV ×4 (00:06→17:46)
[2024-09-14] MEDS: 0.9% Normal Saline (1000mL) 1,000 ML 250 ML IV ×6 (00:47→21:44)
[2024-09-14] MEDS: Ondansetron 4 MG/2 ML Vial IV ×4 (01:48→21:44)
[2024-09-14] MEDS: HYDROmorphone 0.5 MG/0.5 ML SYRINGE IV ×6 (01:48→18:32)
--- NOTE | 2024-09-14 07:46 | PN.HOSP_ITS ---
Reason for Visit Reason for Visit: Abdominal pain and nausea Subjective Subjective Patient states she is a bit better today, but only about 20% at this point. Still complaining of pretty significant epigastric/upper quadrant pain on the left side. Tolerating sips and chips okay for the most part. Passing flatus with no problem. No bowel movement. Objective Data Objective Data Vital Signs: Vital Signs Temp Pulse Resp BP Pulse Ox O2 Del Method 98.0 F 90 16 143/97 H 91 Room Air 09/14/24 02:00 09/14/24 05:34 09/14/24 02:00 09/14/24 05:34 09/14/24 02:00 09/14/24 02:36 Oxygen Delivery Method Room Air Weight: 98.4 kg Body Mass Index (BMI) 37.2 Intake & Output: Intake and Output for Last 24 Hours 09/12/24 09/13/24 09/14/24 23:59 23:59 23:59 Intake Total 3000 / 3000 5941.67 / 6061.67 2180 / 2180 Output Total 0 / 0 Balance 3000 / 3000 5941.67 / 6061.67 2180 / 2180 Lab / Micro Data 09/14/24 07:35 09/14/24 07:35 Physical Exam Const alert, oriented x3, no apparent distress and well nourished; Negative for average body habitus or healthy appearing Constitutional Narrative: Obese, middle-aged, white female, lying in bed watching television, currently appears comfortable and nontoxic the patient is complaining of subjective pain General Appearance: cooperative HEENT normocephalic, head/scalp atraumatic and moist oral mucous membranes HEENT Narrative: Mallampati 3, no thrush Resp normal respiratory effort, no retractions, no use of accessory muscles and clear to auscultation bilaterally Auscultation: Negative for rales, rhonchi or wheezes Cardio regular rate, regular rhythm, S1 normal heart sound, S2 normal heart sound, no murmurs, no rub, no gallops and no clicks GI normal to inspection, nondistended, normoactive bowel sounds and soft to palpation GI Narrative: Still tenderness in the epigastrium and the left upper quadrant radiating to the left flank area, protuberant abdomen Extremity no clubbing, cyanosis or edema Extremity Narrative: Pedal and radial pulses are 2+ Neuro oriented x3, moves all extremities and no focal motor deficits Speech: speech normal Psych affect normal Psych Narrative: Appears calm at this time, interacts appropriately, eye contact is good Assessment & Plan Assessment/Plan (1) Acute pancreatitis: (2) Hypertension: (3) Leukocytosis: PLAN: Plan Acute pancreatitis -Continue n.p.o. with sips and chips sparingly -As needed pain medication -Continue aggressive IV fluids with 250 cc an hour of normal saline -Antiemetics as needed -Will start clear liquid diet once pain is resolved or resolving -Patient not improving as quickly as I would anticipate -Will repeat lipase in the morning if still significantly elevated check MRCP -Could consider steroid therapy tomorrow if still persistently painful -patient had an MRI/MRCP 2 years ago when she had a pancreatitis attack in [place] and it was benign per her report -Will have her follow-up as an outpatient with GI after discharge for further workup -Imaging consistent with pancreatitis but no masses or nodules are noted Leukocytosis -Remains reactive -No signs of infection -Will trend Acute anemia -Highly suspect dilutional as patient is getting 250 cc of IV fluids per hour -Blood counts have trended down slightly -Will continue to monitor -No signs of active bleeding -Patient is hemodynamically stable Hypertension -Patient appears to have a history of hypertension and reportedly was discharged on more medications than she is currently on -Will hold lisinopril but anticipate patient will need more than 5 mg at discharge -Hydralazine 10 mg every 6 hours scheduled for now -Monitor blood pressure and treat accordingly Hepatomegaly -Suspect nonalcoholic fatty liver disease -Recommend weight loss -Outpatient GI referral after discharge Anxiety/depression -Continue home fluoxetine Obesity -BMI 37.2 -Recommend weight loss -Complicates treatment, prognosis, outcomes DVT prophylaxis -Lovenox subcu daily encourage mobility - CODE STATUS -Full code Charges/Coding Visit Charges Inpatient E&M: 03695 Subs Hosp L2
[2024-09-14 08:09] LABS: Absolute Lymphocyte Count 1.01 X10^3/uL (0.83-4.51); Absolute Neutrophil Count 15.4 X10^3/uL (2.0-7.7); Basophil# 0.03 X10^3/uL; Basophil% 0.2 % (0-1); Hemoglobin 10.8 g/dL (12.0-15.0); Lymphocyte # 1.01 X10^3/ul (0.83-4.51); Lymphocyte % 5.7 % (19-41); Mean Corp Hgb Conc 31.8 g/dL (32-36); Mean Corpuscular Hgb 27.1 pg (27.0-32.0); Mean Corpuscular Volume 85.4 fL (81-99); Mean Platelet Vol. 10.1 fl (6.2-12.0); Monocyte# 0.99 X10^3/uL; Monocyte% 5.6 % (0-10); NRBC Flagged by Analyzer 0 % (0-5); Neutrophil # 15.43 X10^3/uL (2.7-7.7); Neutrophil % 87.8 % (47-70); Platelet Count 262 K/mm3 (150-450); RBC Distribution Width CV 14.6 % (11.6-14.6); RBC Distribution Width SD 44.8 fl (35.1-43.9); Red Blood Count 3.98 M/mm3 (4.2-5.4); White Blood Count 17.6 K/mm3 (4.4-11.0)
[2024-09-14] MEDS: 0.9% Saline Lock 10 ML Syringe IV ×4 (08:25→17:46)
[2024-09-14] MEDS: Enoxaparin 40 MG/0.4 ML Syringe SC (09:02)
[2024-09-14] MEDS: Fluoxetine HCl 40 MG CAPSULE PO (09:02)
[2024-09-14 10:58] LABS: ALB/GLOB Ratio 1.4 RATIO (0.9-2.4); AST(SGOT) 17 U/L (<=31); Alanine Aminotransfer ALT/SGPT 21 U/L (<=34); Albumin, Serum 3.6 g/dL (3.5-5.0); Alkaline Phosphatase 90 U/L (35-104); Anion Gap 10 (5-15); BUN 14 mg/dL (4-19); BUN/Creat Ratio 36.8 RATIO (10-20); Calcium,Total 9.1 mg/dL (7.6-11.0); Carbon Dioxide 18.7 mmol/L (21.0-32.0); Chloride 108 mmol/L (98-108); Creatinine, Serum 0.39 mg/dL (0.70-1.20); EST Glomerular Filtration Rate 127 (>60); Estimated Creatinine Clearance 211.94 ml/min (50-250); Globulin 2.5 g/dL (2.2-4.2); Glucose 104 mg/dL (70-99); Potassium 4.1 mmol/L (3.3-5.1); Protein, Total 6.2 g/dL (5.9-8.4); Sodium Level 137 mmol/L (133-145); Total Bilirubin 0.41 mg/dL (0.00-1.30)
[2024-09-14] MEDS: Sodium Chloride 0.65% 1 SPRAY SPRAY.BTL 2 SPRAY NASAL ×2 (12:31→18:34)
[2024-09-14] MEDS: MELATONIN 10 MG TABLET PO (21:44)
[2024-09-14] MEDS: HYDROmorphone 1 MG/ML Syringe IV (21:44)
[2024-09-15] VITALS (8 sets, daily range): BP systolic 158–167; BP diastolic 99–108; PULSE 76–87; RESP 16–18; TEMP 36.6–37.1; O2SAT 94–99; BMI 40.7
[2024-09-15] MEDS: hydrALAZINE 20 MG/ML Vial 10 MG IV ×3 (00:47→11:51)
[2024-09-15] MEDS: HYDROmorphone 0.5 MG/0.5 ML SYRINGE IV ×5 (00:48→17:10)
[2024-09-15] MEDS: 0.9% Normal Saline (1000mL) 1,000 ML 250 ML IV ×6 (01:51→22:24)
[2024-09-15] MEDS: Fluticasone 0.05% 1 SPRAY NASAL.SRY 2 SPRAY NASAL (04:09)
[2024-09-15 05:29] LABS: Absolute Lymphocyte Count 0.85 X10^3/uL (0.83-4.51); Absolute Neutrophil Count 11.3 X10^3/uL (2.0-7.7); Basophil# 0.02 X10^3/uL; Basophil% 0.2 % (0-1); Eosinophil# 0.03 X10^3/uL; Eosinophils% 0.2 % (0-5); Hemoglobin 10.3 g/dL (12.0-15.0); Lymphocyte # 0.85 X10^3/ul (0.83-4.51); Lymphocyte % 6.6 % (19-41); Mean Corp Hgb Conc 31.2 g/dL (32-36); Mean Corpuscular Volume 86.6 fL (81-99); Mean Platelet Vol. 10.2 fl (6.2-12.0); Monocyte# 0.61 X10^3/uL; Monocyte% 4.7 % (0-10); NRBC Flagged by Analyzer 0 % (0-5); Neutrophil % 87.2 % (47-70); Platelet Count 253 K/mm3 (150-450); RBC Distribution Width CV 14.6 % (11.6-14.6); RBC Distribution Width SD 46.5 fl (35.1-43.9); Red Blood Count 3.81 M/mm3 (4.2-5.4)
[2024-09-15 05:58] LABS: Anion Gap 10 (5-15); BUN 17 mg/dL (4-19); BUN/Creat Ratio 44.2 RATIO (10-20); Calcium,Total 9.1 mg/dL (7.6-11.0); Carbon Dioxide 19.1 mmol/L (21.0-32.0); Chloride 109 mmol/L (98-108); Creatinine, Serum 0.38 mg/dL (0.70-1.20); EST Glomerular Filtration Rate 127 (>60); Estimated Creatinine Clearance 217.52 ml/min (50-250); Glucose 103 mg/dL (70-99); Lipase 31 U/L (13-75); Potassium 3.9 mmol/L (3.3-5.1); Sodium Level 138 mmol/L (133-145)
--- NOTE | 2024-09-15 06:41 | NURSING ---
pt frequently requesting pain meds, asking this RN to write the time that it is due on the whiteboard in the room. pt rates pain as it's always a 9 or a 10 out of 10. pt appears comfortable in bed, no facial grimacing or change in VS noted.
[2024-09-15] MEDS: Enoxaparin 40 MG/0.4 ML Syringe SC (08:38)
[2024-09-15] MEDS: Fluoxetine HCl 40 MG CAPSULE PO (08:38)
--- NOTE | 2024-09-15 09:04 | PCM.PN.HOSP ---
Reason for Visit Reason for Visit: Abdominal pain/nausea Subjective Subjective Overall she is feeling better. Lipase is completely normalized. Will try clear liquids today and transition pain medication to p.o. With clears will repeat lipase in the morning to make sure that her lipase remains normalized. Objective Data Objective Data Vital Signs: Vital Signs Temp Pulse Resp BP Pulse Ox O2 Del Method 98.7 F 87 18 165/104 H 96 Room Air 09/15/24 04:07 09/15/24 06:27 09/15/24 04:07 09/15/24 04:07 09/15/24 04:07 09/15/24 08:43 Oxygen Delivery Method Room Air Weight: 107.7 kg Body Mass Index (BMI) 40.7 Intake & Output: Intake and Output for Last 24 Hours 09/13/24 09/14/24 09/15/24 23:59 23:59 23:59 Intake Total 5941.67 / 6061.67 6175.83 / 6175.83 1999 Output Total 0 / 0 Balance 5941.67 / 6061.67 6175.83 / 6175.83 1999 Lab / Micro Data 09/15/24 04:57 09/15/24 04:57 Labs: Laboratory Results - last 24 hr 09/14/24 07:35: Sodium 137, Potassium 4.1, Chloride 108, Carbon Dioxide 18.7 L, Anion Gap 10, BUN 14, Creatinine 0.39 L, Estim Creat Clear Calc 211.94, Est GFR (MDRD) Non-Af 127, BUN/Creatinine Ratio 36.8 H, Glucose 104 H, Calcium 9.1, Total Bilirubin 0.41, AST 17, ALT 21, Alkaline Phosphatase 90, Total Protein 6.2, Albumin 3.6, Globulin 2.5, Albumin/Globulin Ratio 1.4 09/15/24 04:57: WBC 13.0 H, RBC 3.81 L, Hgb 10.3 L, Hct 33.0 L, MCV 86.6, MCH 27.0, MCHC 31.2 L, RDW Std Deviation 46.5 H, RDW Coeff of Chelsie 14.6, Plt Count 253, MPV 10.2, Immature Gran % (Auto) 1.100 H, Neut % (Auto) 87.2 H, Lymph % (Auto) 6.6 L, [place] % (Auto) 4.7, Eos % (Auto) 0.2, Baso % (Auto) 0.2, Absolute Neuts (auto) 11.3 H, Absolute Lymphs (auto) 0.85, Nucleated RBC % 0, Sodium 138, Potassium 3.9, Chloride 109 H, Carbon Dioxide 19.1 L, Anion Gap 10, BUN 17, Creatinine 0.38 L, Estim Creat Clear Calc 217.52, Est GFR (MDRD) Non-Af 127, BUN/Creatinine Ratio 44.2 H, Glucose 103 H, Calcium 9.1, Lipase 31 Physical Exam Const alert, oriented x3, no apparent distress and well nourished; Negative for average body habitus or healthy appearing Constitutional Narrative: Obese, middle-aged, white female, lying in bed, appears comfortable, nontoxic General Appearance: cooperative HEENT normocephalic, head/scalp atraumatic and moist oral mucous membranes Resp normal respiratory effort, no retractions, no use of accessory muscles and clear to auscultation bilaterally Auscultation: Negative for rales, rhonchi or wheezes Cardio regular rate, regular rhythm, S1 normal heart sound, S2 normal heart sound, no murmurs, no rub, no gallops and no clicks GI normal to inspection, nondistended, normoactive bowel sounds and soft to palpation GI Narrative: Still tenderness in the epigastrium and the left upper quadrant radiating to the left flank area seems to be improved with deeper palpation, protuberant abdomen Extremity no clubbing, cyanosis or edema Extremity Narrative: Pedal and radial pulses are 2+ Neuro oriented x3, moves all extremities and no focal motor deficits Speech: speech normal Psych affect normal Psych Narrative: Calm, eye contact is good, patient interacts appropriately Assessment & Plan Assessment/Plan (1) Acute pancreatitis: (2) Hypertension: (3) Leukocytosis: PLAN: Plan Acute pancreatitis -Continue n.p.o. with sips and chips sparingly -As needed pain medication -Continue aggressive IV fluids with 250 cc an hour of normal saline -Antiemetics as needed -Lipase is normal -Will try clear liquid diet only today and repeat lipase in a.m. -Consider MRCP if pain is persistent -Could consider steroid therapy tomorrow if still persistently painful -patient had an MRI/MRCP 2 years ago when she had a pancreatitis attack in [place] and it was benign per her report -Will have her follow-up as an outpatient with GI after discharge for further workup -Imaging consistent with pancreatitis but no masses or nodules are noted Leukocytosis -Trending down -No signs of infection -Will trend Acute anemia -Highly suspect dilutional as patient is getting 250 cc of IV fluids per hour -Counts are stabilized between 10 and 11 -Will continue to monitor -No signs of active bleeding -Patient is hemodynamically stable Hypertension -Patient appears to have a history of hypertension and reportedly was discharged on more medications than she is currently on -Start losartan 100 mg -discontinue scheduled hydralazine -Monitor blood pressure and treat accordingly Hepatomegaly -Suspect nonalcoholic fatty liver disease -Recommend weight loss -Outpatient GI referral after discharge Anxiety/depression -Continue home fluoxetine Obesity -BMI 40.8 -Recommend weight loss -Complicates treatment, prognosis, outcomes DVT prophylaxis -Lovenox subcu daily encourage mobility CODE STATUS -Full code Charges/Coding Visit Charges Inpatient E&M: 60775 Subs Hosp L2
[2024-09-15] MEDS: 0.9% Saline Lock 10 ML Syringe IV ×3 (10:28→17:10)
[2024-09-15] MEDS: Ondansetron 4 MG/2 ML Vial IV ×3 (10:32→23:58)
[2024-09-15] MEDS: oxyCODONE 5 MG Tablet PO ×3 (13:49→21:57)
[2024-09-15] MEDS: Losartan Potassium 100 MG Tablet PO (13:49)
[2024-09-15] MEDS: Mag Hydrox/Al Hydrox/Simeth 30 ML UDC PO (14:12)
[2024-09-15] MEDS: Pantoprazole Sodium 40 MG Tablet PO (14:12)
[2024-09-15] MEDS: Lidocaine 2% Viscous15 ML UDC 15 ML PO (14:12)
[2024-09-15] MEDS: MELATONIN 10 MG TABLET PO (21:58)
[2024-09-16] VITALS (7 sets, daily range): BP systolic 131–175; BP diastolic 88–112; PULSE 78–81; RESP 12–18; TEMP 36.7–36.9; O2SAT 89–100
[2024-09-16] MEDS: 0.9% Normal Saline (1000mL) 1,000 ML 250 ML IV ×4 (02:25→15:27)
[2024-09-16] MEDS: oxyCODONE 5 MG Tablet PO ×3 (03:00→15:27)
[2024-09-16] MEDS: Ondansetron 4 MG/2 ML Vial IV ×3 (06:10→17:40)
[2024-09-16 07:15] LABS: Absolute Lymphocyte Count 1.19 X10^3/uL (0.83-4.51); Absolute Neutrophil Count 7.8 X10^3/uL (2.0-7.7); Basophil# 0.04 X10^3/uL; Basophil% 0.4 % (0-1); Hematocrit 33.3 % (37-47); Hemoglobin 10.5 g/dL (12.0-15.0); Lymphocyte # 1.19 X10^3/ul (0.83-4.51); Lymphocyte % 12.2 % (19-41); Mean Corp Hgb Conc 31.5 g/dL (32-36); Mean Corpuscular Hgb 27.1 pg (27.0-32.0); Mean Corpuscular Volume 85.8 fL (81-99); Mean Platelet Vol. 10.7 fl (6.2-12.0); Monocyte# 0.54 X10^3/uL; Monocyte% 5.5 % (0-10); NRBC Flagged by Analyzer 0 % (0-5); Neutrophil # 7.81 X10^3/uL (2.7-7.7); Neutrophil % 80.1 % (47-70); Platelet Count 318 K/mm3 (150-450); RBC Distribution Width CV 14.6 % (11.6-14.6); RBC Distribution Width SD 45.6 fl (35.1-43.9); Red Blood Count 3.88 M/mm3 (4.2-5.4); White Blood Count 9.8 K/mm3 (4.4-11.0)
[2024-09-16 07:46] LABS: ALB/GLOB Ratio 1.1 RATIO (0.9-2.4); AST(SGOT) 17 U/L (<=31); Alanine Aminotransfer ALT/SGPT 18 U/L (<=34); Albumin, Serum 3.1 g/dL (3.5-5.0); Alkaline Phosphatase 82 U/L (35-104); Anion Gap 10 (5-15); BUN 15 mg/dL (4-19); BUN/Creat Ratio 37.6 RATIO (10-20); Carbon Dioxide 20.2 mmol/L (21.0-32.0); Chloride 109 mmol/L (98-108); EST Glomerular Filtration Rate 126 (>60); Estimated Creatinine Clearance 217.29 ml/min (50-250); Globulin 2.8 g/dL (2.2-4.2); Glucose 134 mg/dL (70-99); Lipase 22 U/L (13-75); Potassium 3.4 mmol/L (3.3-5.1); Protein, Total 5.8 g/dL (5.9-8.4); Sodium Level 138 mmol/L (133-145); Total Bilirubin 0.22 mg/dL (0.00-1.30)
[2024-09-16] MEDS: Enoxaparin 40 MG/0.4 ML Syringe SC ×2 (09:47→21:06)
[2024-09-16] MEDS: Fluticasone 0.05% 1 SPRAY NASAL.SRY 2 SPRAY NASAL (09:47)
[2024-09-16] MEDS: Pantoprazole Sodium 40 MG Tablet PO (09:47)
[2024-09-16] MEDS: Losartan Potassium 100 MG Tablet PO (09:47)
[2024-09-16] MEDS: Fluoxetine HCl 40 MG CAPSULE PO (09:48)
--- NOTE | 2024-09-16 09:57 | NURSING ---
norvasc not in pt drawer
--- NOTE | 2024-09-16 10:01 | CT_ITS ---
PROCEDURE: ABDOMEN/PELVIS WITH CONTRAST 09/16/2024 REASON FOR EXAM: 43-year-old female, epigastric/left upper quadrant abdominal pain, history of pancreatitis with improving lipase. TECHNIQUE: Abdomen and pelvis CT with intravenous contrast. Coronal and Sagittal reconstruction series were provided. PATIENT PREPARATION: Per protocol ORAL CONTRAST TYPE: None. CONTRAST: Isovue 370 VOLUME: 100ML One or more dose reduction techniques were used (e.g., Automated exposure control, adjustment of the mA and/or kV according to patient size, use of iterative reconstruction technique. RADIATION DOSE SUMMARY: CTDlvol: 24 mGy DLP: 1300 mGycm COMPARISON: CT abdomen pelvis 09/12/2024. FINDINGS: Lung bases: Development of moderate-sized bilateral pleural effusions with adjacent atelectasis. The heart is normal in size. Liver: Hepatomegaly with probable diffuse hepatic steatosis. Focal fatty sparing of segment 4. The major portal veins are patent. Minimal intrahepatic biliary ductal dilation Gallbladder: Prior cholecystectomy. Spleen: Moderate splenomegaly. Pancreas: Diffuse pancreatic edema with uniform parenchymal hypoenhancement. Moderate associated fat stranding and edema. No discrete peripancreatic fluid collection or rim enhancing fluid collection. No obvious splenic pseudoaneurysm visualized on venous contrast examination. The splenic vein is grossly patent. Adrenals: Unremarkable. Kidneys: No hydronephrosis or nephrolithiasis. Mild bilateral perinephric stranding. Bladder: Mildly distended and unremarkable. Reproductive Organs: Lobular uterus compatible with uterine fibroids. Bowel: Retained oral contrast material opacifies the distal small bowel and colon. The bowel loops are nondilated. Normal appendix. No pneumoperitoneum. Development of small volume ascites within the bilateral upper quadrants and dependent most portions of the peritoneal cavity. Lymph nodes: Prominent retroperitoneal and central mesenteric nodes, likely reactive. Vasculature: The abdominal aorta and IVC are normal. Bones/soft tissues: Development of moderate diffuse body wall edema. Ventral abdominal subcutaneous air, likely from prior injection site. No aggressive osseous lesions. CT/Abdomen/Pelvis WITH Contrast IMPRESSION: 1. Redemonstration of acute interstitial edematous pancreatitis (also known as acute or uncomplicated pancreatitis). No evidence of necrosis, vascular involvement or abscess. 2. Development of small volume abdominopelvic ascites, moderate-sized bilateral pleural effusions and body wall edema. 3. Hepatosplenomegaly with diffuse hepatic steatosis. Reading Location: [facility]
[2024-09-16] MEDS: amLODIPine 10 MG Tablet PO (10:17)
--- NOTE | 2024-09-16 11:31 | MDS.RN ---
pt given 1st bottle of contrast to drink pt also asked for zofran and medicated w/ that
--- NOTE | 2024-09-16 13:09 | PCM.PN.HOSP ---
Reason for Visit Reason for Visit: Abdominal pain Subjective Subjective Patient states she did well with clears yesterday and we advance to full's today. She states she falls and is now having left upper quadrant pain. Lipase is normalized. We will check a stat CT of her abdomen pelvis with p.o. and IV contrast. Objective Data Objective Data Vital Signs: Vital Signs Temp Pulse Resp BP Pulse Ox O2 Del Method 98.0 F 81 18 160/109 H 96 Room Air 09/16/24 09:58 09/16/24 09:58 09/16/24 09:58 09/16/24 09:58 09/16/24 09:58 09/16/24 09:58 Oxygen Delivery Method Room Air Weight: 107.7 kg Body Mass Index (BMI) 40.7 Intake & Output: Intake and Output for Last 24 Hours 09/14/24 09/15/24 09/16/24 23:59 23:59 23:59 Intake Total 6175.83 / 6175.83 5887.5 / 5887.5 3000 / 3000 Balance 6175.83 / 6175.83 5887.5 / 5887.5 3000 / 3000 Lab / Micro Data 09/16/24 05:00 09/16/24 05:00 Labs: Laboratory Results - last 24 hr 09/16/24 05:00: WBC 9.8, RBC 3.88 L, Hgb 10.5 L, Hct 33.3 L, MCV 85.8, MCH 27.1, MCHC 31.5 L, RDW Std Deviation 45.6 H, RDW Coeff of Chelsie 14.6, Plt Count 318, MPV 10.7, Immature Gran % (Auto) 0.800, Neut % (Auto) 80.1 H, Lymph % (Auto) 12.2 L, [place] % (Auto) 5.5, Eos % (Auto) 1.0, Baso % (Auto) 0.4, Absolute Neuts (auto) 7.8 H, Absolute Lymphs (auto) 1.19, Nucleated RBC % 0, Sodium 138, Potassium 3.4, Chloride 109 H, Carbon Dioxide 20.2 L, Anion Gap 10, BUN 15, Creatinine 0.40 L, Estim Creat Clear Calc 217.29, Est GFR (MDRD) Non-Af 126, BUN/Creatinine Ratio 37.6 H, Glucose 134 H, Calcium 9.0, Total Bilirubin 0.22, AST 17, ALT 18, Alkaline Phosphatase 82, Total Protein 5.8 L, Albumin 3.1 L, Globulin 2.8, Albumin/Globulin Ratio 1.1, Lipase 22 Physical Exam Const alert, oriented x3, no apparent distress and well nourished; Negative for average body habitus or healthy appearing Constitutional Narrative: Obese, middle-aged, white female, lying in bed watching television, appears comfortable, nontoxic General Appearance: cooperative HEENT normocephalic, head/scalp atraumatic and moist oral mucous membranes Resp normal respiratory effort, no retractions, no use of accessory muscles and clear to auscultation bilaterally Auscultation: Negative for rales, rhonchi or wheezes Cardio regular rate, regular rhythm, S1 normal heart sound, S2 normal heart sound, no murmurs, no rub, no gallops and no clicks GI normal to inspection, nondistended, normoactive bowel sounds and soft to palpation GI Narrative: Tenderness today predominantly in the left upper quadrant with minimal tenderness in the epigastrium Extremity no clubbing, cyanosis or edema Extremity Narrative: Pedal and radial pulses are 2+ Neuro oriented x3, moves all extremities and no focal motor deficits Speech: speech normal Psych affect normal Psych Narrative: Calm, eye contact is good, patient interacts appropriately Assessment & Plan Assessment/Plan (1) Acute pancreatitis: (2) Hypertension: (3) Leukocytosis: PLAN: Plan Acute pancreatitis -Trying to advance to full liquids and patient was complaining of more pain -Lipase is normalized -Clinically this does not quite make sense--> will check repeat CT of the abdomen pelvis with oral and IV contrast -Will consider MRCP tomorrow depending on findings -As needed pain medication -Continue aggressive IV fluids with 250 cc an hour of normal saline for now until repeat CT is resulted -Antiemetics as needed -patient had an MRI/MRCP 2 years ago when she had a pancreatitis attack in [place] and it was benign per her report -Will have her follow-up as an outpatient with GI after discharge for further workup -Imaging consistent with pancreatitis but no masses or nodules are noted Leukocytosis -Resolved but still left shift however it is trending down -No signs of infection -Will trend Acute anemia -Highly suspect dilutional as patient is getting 250 cc of IV fluids per hour -Counts remain stabilized between 10 and 11 -Will continue to monitor -No signs of active bleeding -Patient is hemodynamically stable Hypertension -Patient appears to have a history of hypertension and reportedly was discharged on more medications than she is currently on -Start losartan 100 mg -Add amlodipine 10 mg -discontinue scheduled hydralazine and transition to IV as needed hydralazine -Monitor blood pressure and treat accordingly Hepatomegaly -Suspect nonalcoholic fatty liver disease -Recommend weight loss -Outpatient GI referral after discharge Anxiety/depression -Continue home fluoxetine Obesity -BMI 40.8 -Recommend weight loss -Complicates treatment, prognosis, outcomes DVT prophylaxis -Lovenox subcu twice daily encourage mobility CODE STATUS -Full code Charges/Coding Visit Charges Inpatient E&M: 74915 Subs Hosp L2
--- NOTE | 2024-09-16 13:20 | NURSING ---
PT HAS COMPLETED BOTH ORAL CONTRAST BOTTLES HAS HAD MULTIPLE BOWEL MOVEMENTS AWAITING CT STUDY IV SL FOR TRANSPORT TO TESTING
--- NOTE | 2024-09-16 13:22 | NURSING ---
BLOOD BANK HERE TO TAMARA WALTON
[2024-09-16] MEDS: HYDROmorphone 0.5 MG/0.5 ML SYRINGE IV ×2 (17:43→21:05)
[2024-09-16] MEDS: MELATONIN 10 MG TABLET PO (21:05)
[2024-09-16] MEDS: 0.9% Saline Lock 10 ML Syringe IV ×2 (21:05→23:05)
[2024-09-16] MEDS: hydrALAZINE 20 MG/ML Vial 10 MG IV (23:04)
[2024-09-17] VITALS (8 sets, daily range): BP systolic 142–163; BP diastolic 92–108; PULSE 72–84; RESP 16–19; TEMP 36.6–37; O2SAT 89–100; BMI 40.7
[2024-09-17] MEDS: 0.9% Saline Lock 10 ML Syringe IV ×8 (00:58→19:57)
[2024-09-17] MEDS: HYDROmorphone 0.5 MG/0.5 ML SYRINGE IV ×7 (00:58→23:02)
[2024-09-17] MEDS: 0.9% Normal Saline (1000mL) 1,000 ML 75 ML IV ×2 (04:33→19:57)
[2024-09-17] MEDS: Ondansetron 4 MG/2 ML Vial IV ×3 (04:37→18:10)
[2024-09-17] MEDS: hydrALAZINE 20 MG/ML Vial 10 MG IV (05:08)
--- NOTE | 2024-09-17 06:00 | MRI_ITS ---
PROCEDURE: MRCP ABDOMEN WITHOUT CONTRAST 09/17/2024 REASON FOR EXAM: PERSISTANT PANCREATITIS TECHNIQUE: Multiplanar, multisequence MRI of the upper abdomen without and with intravenous gadolinium-based contrast. CONTRAST: None FINDINGS: Chest: Moderate bilateral pleural effusions. Liver: Trace amount of ascites surrounds the liver. Biliary: Nondilated. Unremarkable. No choledocholithiasis. Status post cholecystectomy. Pancreas: Small volume of fluid surrounds the pancreas. On T2 weighted imaging, the pancreas head, body and tail unremarkable appearance Spleen: Normal Adrenals: Normal Kidneys: Unremarkable Major Vessels: Patent Bones: Normal bone marrow signal MRI/MRCP Abdomen without Contrast IMPRESSION: Small but abnormal amount of fluid around the pancreas. Moderate bilateral pleural effusions Absent gallbladder. No evidence of choledocholithiasis. [facility]
[2024-09-17 06:59] LABS: Absolute Lymphocyte Count 1.34 X10^3/uL (0.83-4.51); Absolute Neutrophil Count 5.7 X10^3/uL (2.0-7.7); Basophil# 0.04 X10^3/uL; Basophil% 0.5 % (0-1); Eosinophil# 0.25 X10^3/uL; Eosinophils% 3.1 % (0-5); Hematocrit 33.6 % (37-47); Hemoglobin 10.9 g/dL (12.0-15.0); Lymphocyte # 1.34 X10^3/ul (0.83-4.51); Lymphocyte % 16.9 % (19-41); Mean Corp Hgb Conc 32.4 g/dL (32-36); Mean Corpuscular Hgb 26.9 pg (27.0-32.0); Mean Platelet Vol. 10.2 fl (6.2-12.0); Monocyte# 0.52 X10^3/uL; Monocyte% 6.5 % (0-10); NRBC Flagged by Analyzer 0 % (0-5); Neutrophil # 5.73 X10^3/uL (2.7-7.7); Neutrophil % 72.1 % (47-70); Platelet Count 326 K/mm3 (150-450); RBC Distribution Width CV 13.9 % (11.6-14.6); Red Blood Count 4.05 M/mm3 (4.2-5.4)
[2024-09-17 07:42] LABS: ALB/GLOB Ratio 1.2 RATIO (0.9-2.4); AST(SGOT) 16 U/L (<=31); Alanine Aminotransfer ALT/SGPT 15 U/L (<=34); Albumin, Serum 3.2 g/dL (3.5-5.0); Alkaline Phosphatase 90 U/L (35-104); Anion Gap 12 (5-15); BUN 4 mg/dL (4-19); BUN/Creat Ratio 13.1 RATIO (10-20); Calcium,Total 9.2 mg/dL (7.6-11.0); Carbon Dioxide 25.4 mmol/L (21.0-32.0); Chloride 100 mmol/L (98-108); Creatinine, Serum 0.29 mg/dL (0.70-1.20); EST Glomerular Filtration Rate 136 (>60); Globulin 2.6 g/dL (2.2-4.2); Glucose 102 mg/dL (70-99); Magnesium 1.7 mg/dL (1.5-2.2); Phosphorus 2.2 mg/dL (2.7-4.5); Protein, Total 5.8 g/dL (5.9-8.4); Sodium Level 137 mmol/L (133-145)
--- NOTE | 2024-09-17 09:30 | RAD_ITS ---
PROCEDURE: ORBITS FOR FOREIGN BODY 09/17/2024 REASON FOR EXAM: HX METAL TO EYE,,PRE MRI TECHNIQUE: 2 view(s) of the facial bones COMPARISON: None FINDINGS: No radiopaque foreign body is seen. Cleared for MRI scanning. RAD/Orbits for Foreign Body IMPRESSION: No radiopaque foreign body is seen. Cleared for MRI scanning. Reading Location: [facility]
[2024-09-17] MEDS: Potassium Chloride Oral Tablet 20 MEQ 40 MEQ PO (11:40)
[2024-09-17] MEDS: Fluticasone 0.05% 1 SPRAY NASAL.SRY 2 SPRAY NASAL (11:41)
[2024-09-17] MEDS: Losartan Potassium 100 MG Tablet PO (11:41)
[2024-09-17] MEDS: amLODIPine 10 MG Tablet PO (11:42)
[2024-09-17] MEDS: Enoxaparin 40 MG/0.4 ML Syringe SC (11:42)
[2024-09-17] MEDS: Pantoprazole Sodium 40 MG Tablet PO (11:43)
[2024-09-17] MEDS: Senna Tablet 1 TABLET PO ×2 (11:43→22:59)
[2024-09-17] MEDS: Fluoxetine HCl 40 MG CAPSULE PO (11:43)
--- NOTE | 2024-09-17 12:14 | PCM.PN.HOSP ---
Reason for Visit Reason for Visit: Diagnoses Elevated white blood cell count, unspecified (09/12/24) Essential (primary) hypertension (09/12/24) Acute pancreatitis without necrosis or infection, unspecified (09/12/24) Subjective Subjective Saw patient at bedside this morning. Patient had gotten back from her MRCP about 30 minutes prior to when I saw her. She tolerated the MRCP without issue. Continued to have abdominal pain today, similar to yesterday. Does not have any appetite this morning. Denies any nausea or episodes of vomiting today. She is concerned about trying to restart a diet again given that she did not do well with it last time. No other new concerns today. Objective Data Objective Data Vital Signs: Vital Signs Temp Pulse Resp BP Pulse Ox O2 Del Method O2 Flow Rate 98.1 F 78 16 147/96 H 93 Room Air 2 09/17/24 08:01 09/17/24 08:01 09/17/24 08:01 09/17/24 08:01 09/17/24 08:01 09/17/24 08:05 09/16/24 22:00 Oxygen Flow Rate (L/min) 2 Oxygen Delivery Method Room Air Weight: 108.2 kg Body Mass Index (BMI) 40.7 Intake & Output: Intake and Output for Last 24 Hours 09/15/24 09/16/24 09/17/24 23:59 23:59 23:59 Intake Total 5887.5 / 5887.5 6920.83 / 6920.83 Balance 5887.5 / 5887.5 6920.83 / 6920.83 Lab / Micro Data 09/17/24 05:57 09/17/24 05:57 Labs: Laboratory Results - last 24 hr 09/17/24 05:57: WBC 8.0, RBC 4.05 L, Hgb 10.9 L, Hct 33.6 L, MCV 83.0, MCH 26.9 L, MCHC 32.4, RDW Std Deviation 42.0, RDW Coeff of Chelsie 13.9, Plt Count 326, MPV 10.2, Immature Gran % (Auto) 0.900, Neut % (Auto) 72.1 H, Lymph % (Auto) 16.9 L, [place]ord % (Auto) 6.5, Eos % (Auto) 3.1, Baso % (Auto) 0.5, Absolute Neuts (auto) 5.7, Absolute Lymphs (auto) 1.34, Nucleated RBC % 0, Sodium 137, Potassium 3.0 L, Chloride 100, Carbon Dioxide 25.4, Anion Gap 12, BUN 4, Creatinine 0.29 L, Estim Creat Clear Calc 300.50 H, Est GFR (MDRD) Non-Af 136, BUN/Creatinine Ratio 13.1, Glucose 102 H, Calcium 9.2, Phosphorus 2.2 L, Magnesium 1.7, Total Bilirubin 0.30, AST 16, ALT 15, Alkaline Phosphatase 90, Total Protein 5.8 L, Albumin 3.2 L, Globulin 2.6, Albumin/Globulin Ratio 1.2 Radiography Diagnostic Testing: Radiology Impression Abdomen/Pelvis CT 09/16/24 10:01 IMPRESSION: 1. Redemonstration of acute interstitial edematous pancreatitis (also known as acute or uncomplicated pancreatitis). No evidence of necrosis, vascular involvement or abscess. 2. Development of small volume abdominopelvic ascites, moderate-sized bilateral pleural effusions and body wall edema. 3. Hepatosplenomegaly with diffuse hepatic steatosis. Reading Location: [facility] MRCP 09/17/24 06:00 IMPRESSION: Small but abnormal amount of fluid around the pancreas. Moderate bilateral pleural effusions Absent gallbladder. No evidence of choledocholithiasis. [facility] Orbit X-Ray 09/17/24 09:30 IMPRESSION: No radiopaque foreign body is seen. Cleared for MRI scanning. Reading Location: [facility] Physical Exam Const alert, oriented x3 and no apparent distress Constitutional Narrative: Middle-age female, class III obesity, mildly fatigued appearing, otherwise laying back comfortably in bed, conversing normally, in no acute distress. General Appearance: cooperative and comfortable HEENT normocephalic, head/scalp atraumatic, hearing grossly normal bilaterally, nasal mucous membranes and turbinates normal and moist oral mucous membranes Eyes PERRL, EOMs intact bilaterally and conjunctivae normal Neck full ROM Chest inspection of chest normal Resp normal respiratory effort and no use of accessory muscles Resp Narrative: Breathing comfortably on room air at rest. Mild crackles noted in bilateral lung bases, no wheezing noted. Cardio regular rate, regular rhythm, no murmurs and peripheral pulses 2+ throughout GI GI Narrative: Abdomen with mild to moderate tenderness to palpation diffusely, otherwise soft and nondistended. Back/Spine normal ROM Extremity normal to inspection, full ROM and no pedal edema Skin no rashes or lesions noted Psych mental status grossly normal Assessment & Plan Assessment/Plan (1) Acute pancreatitis: PLAN: Plan Patient is a 43-year-old female who presented to [facility] ED on 09/12/2024 with abdominal pain. 1. Acute pancreatitis ? GI consulted. CT abdomen pelvis on admit with findings concerning for pancreatitis. Lipase 1599. No clear cause for pancreatitis. Minimal alcohol use, triglyceride level normal and LFTs fairly unremarkable. Attempted to advance diet to full liquids on 09/16 the patient reported significantly more pain. Repeat CT abdomen pelvis redemonstrated acute/uncomplicated pancreatitis. Lipase level was rechecked and did normalize on 09/16. MRCP on 09/17 showed small but abnormal amount of fluid around the pancreas; otherwise showed absent gallbladder and no evidence of choledocholithiasis. Treated with heavy IV fluid resuscitation during admission but has developed some degree of volume overload as evidenced by small bilateral pleural effusions and ascites on CT on 09/16. Given 1 dose of IV Lasix on 09/17 and will hold on further IV fluids for now. Will maintain n.p.o. status for now and appreciate further GI recommendations. 2. Hepatomegaly ? Diffuse hepatic steatosis with hepatomegaly noted on CT abdomen pelvis on admit. Suspect secondary to fatty liver disease. No inpatient needs, outpatient follow-up. 3. Normocytic anemia ? Hemoglobin has remained stable around 10-11 during hospitalization. No inpatient needs, okay for outpatient follow-up. Chronic medical conditions: ? Class III obesity: BMI 40 on admit. Complicates hospital course, care and prognosis. ? Hypertension: Continue treatment with amlodipine 10 mg daily and losartan 100 mg daily, has had good blood pressure control on this. ? Anxiety/depression: Continue home fluoxetine. ? History of cholecystectomy DVT prophylaxis: Lovenox twice daily CODE STATUS: Full code, verified Expected disposition: Home, TBD Total clinical time spent by myself addressing the patient's medical issues, reviewing all the data, and collaborating with patient's care team: 35 minutes. Charges/Coding Visit Charges Inpatient E&M: 71205 Subs Hosp L2
[2024-09-17] MEDS: Furosemide 40 MG/4 ML Vial IV (12:41)
--- NOTE | 2024-09-17 19:40 | EX.PCM.CON.G ---
HPI Consult Data Date of Consult: 09/18/24 HPI Narrative Reason for Consultation: Pancreatitis HPI Narrative: CASIMIRO PUTNAM, is a 43 F who presented to the emergency department [facility] on 09/12/2024 with abdominal pain. The patient states she had some spicy meat loaf and about 2 hours following she began to feel bloated and gassy. She tried some Pepto-Bismol but had no relief with this. Patient indicated she was up most the night with epigastric and left upper quadrant pain persisted. She described it as achy and dull and radiated towards her left flank area. She also complained of some associated mild mid back pain. She had a normal bowel movement yesterday and has been passing flatus. She denies any vomiting but did have nausea. Denies any fevers. She did have pancreatitis in 2021 and was admitted at [facility] at which time the etiology of her pancreatitis was not found. She did states she had a MRI that was unremarkable for any findings. She does have a history of cholecystectomy done 19 years ago. She takes minimal medication including nasal spray, fluoxetine, and lisinopril. She has been told she has elevated blood pressure previously but stopped taking most of her medications. She does not drink alcohol on a regular basis. It appears she has had previous triglyceride levels done which were not markedly elevated. Liver functions have been normal. Troponins were less than 6 x 2. Triglycerides were 89. Her lipase was 1599. test was negative. Her UA is not consistent with infection. Toxicology screen was negative. Ethyl alcohol level is less than 10. CT of the abdomen pelvis showed the pancreas was edematous with small to moderate amount of free fluid in the rectal peritoneal region as well as edema in the fat adjacent to the pancreas consistent with pancreatitis with no pancreatic duct dilation and no mass identified. She had diffuse fatty infiltration of the liver with hepatomegaly. I was asked to see patient for idiopathic pancreatitis. She had a MRCP today that displayed: Small but abnormal amount of fluid around the pancreas and the liver. Moderate bilateral pleural effusions Absent gallbladder. No evidence of choledocholithiasis. [facility] Medical History Pancreatitis Hypertension Anxiety Home Medications ?Medication ?Instructions ?Recorded ?Last Taken ?Type fluoxetine 40 mg capsule 40 mg PO DAILY 09/12/24 Unknown History ipratropium bromide 42 mcg (0.06 1 spray intranasal TID PRN PRN 09/12/24 Unknown History %) nasal spray allergy symptoms lisinopril 5 mg tablet 5 mg PO DAILY 09/12/24 Unknown History Allergy/AdvReac Type Severity Reaction Status Date / Time No Known Allergies Allergy Verified 09/12/24 06:59 Family History no significant family his Surgical History (Updated 09/18/24 @ 15:[address] Garry Howard MD) S/P ERCP Hx of cholecystectomy Social History Smoking Status: Former smoker alcohol intake: current alcohol intake frequency: 0-2 drinks per day substance use type: does not use ROS Constitutional Constitutional: Denies anorexia, change in weight, chills, fatigue, fever(s), malaise, night sweats, weakness or other Eyes Eyes: Denies blurry vision, change in eye color, change in vision, discharge from eye(s), double vision, erythema, eye pain, loss of vision or other ENT HEENT: Denies abnormal hearing, dysphagia, ear pain, epistaxis, headache(s), hearing loss, nasal congestion, nasal discharge, post nasal drip, sinus pressure, sore throat or other Cardiovascular Cardiovascular: Denies chest pain, claudication, dyspnea on exertion, edema, lightheadedness, orthopnea, palpitations, paroxysmal nocturnal dyspnea, rapid heart rate, syncope or other Respiratory/Chest Respiratory/Chest: Denies cough, dyspnea, excessive phlegm production, hemoptysis, productive cough, shortness of breath at rest, shortness of breath with exertion, wheezing or other Gastrointestinal Gastrointestinal: Reports abdominal pain and nausea; Denies coffee ground emesis, constipation, diarrhea, dyspepsia, hematemesis, hematochezia, loose stools, melena, vomiting or other Genitourinary Genitourinary: Denies burning urination, difficulty urinating, dysuria, hematuria, nocturia, urinary frequency, urinary hesitancy, urinary incontinence, urinary urgency or other Musculoskeletal Musculoskeletal: Reports back pain; Denies arthralgias, joint pain, joint stiffness, joint swelling, myalgias, neck pain or other Neurologic Neurologic: Denies abnormal gait, abnormal speech, confusion, disequilibrium, dizziness, focal weakness, headache(s), numbness, paresthesias, seizure-like activity, seizures, syncope, tingling, tremor(s) or other Psychiatric Psychiatric: Reports anxiety; Denies depression, homicidal ideation, suicidal ideation or other Endocrine Endocrinology: Denies change in body appearance, cold intolerance, excessive sweating, heat intolerance, polydipsia, polyuria or other Hematologic/Lymphatic Hematologic/Lymphatic: Denies anemia, easy bleeding, easy bruising, lymphadenopathy or other Allergic/Immunologic Allergic/Immunologic: Denies rhinitis, hives, eczemia, asthma or other Physical Exam Const alert, oriented x3, no apparent distress and well nourished; Negative for average body habitus or healthy appearing Constitutional Narrative: Obese, middle-aged, white female, lying in bed watching television, appears comfortable, nontoxic General Appearance: cooperative HEENT normocephalic, head/scalp atraumatic and moist oral mucous membranes Resp normal respiratory effort, no retractions, no use of accessory muscles and clear to auscultation bilaterally Auscultation: Negative for rales, rhonchi or wheezes Cardio regular rate, regular rhythm, S1 normal heart sound, S2 normal heart sound, no murmurs, no rub, no gallops and no clicks GI normal to inspection, nondistended, normoactive bowel sounds and soft to palpation GI Narrative: Tenderness today predominantly in the left upper quadrant with minimal tenderness in the epigastrium Extremity no clubbing, cyanosis or edema Extremity Narrative: Pedal and radial pulses are 2+ Neuro oriented x3, moves all extremities and no focal motor deficits Speech: speech normal Psych affect normal Psych Narrative: Calm, eye contact is good, patient interacts appropriately Lab / Micro Data 09/18/24 04:05 09/18/24 04:05 Labs: Laboratory Results - last 24 hr 09/17/24 05:57: WBC 8.0, RBC 4.05 L, Hgb 10.9 L, Hct 33.6 L, MCV 83.0, MCH 26.9 L, MCHC 32.4, RDW Std Deviation 42.0, RDW Coeff of Chelsie 13.9, Plt Count 326, MPV 10.2, Immature Gran % (Auto) 0.900, Neut % (Auto) 72.1 H, Lymph % (Auto) 16.9 L, [place] % (Auto) 6.5, Eos % (Auto) 3.1, Baso % (Auto) 0.5, Absolute Neuts (auto) 5.7, Absolute Lymphs (auto) 1.34, Nucleated RBC % 0, Sodium 137, Potassium 3.0 L, Chloride 100, Carbon Dioxide 25.4, Anion Gap 12, BUN 4, Creatinine 0.29 L, Estim Creat Clear Calc 300.50 H, Est GFR (MDRD) Non-Af 136, BUN/Creatinine Ratio 13.1, Glucose 102 H, Calcium 9.2, Phosphorus 2.2 L, Magnesium 1.7, Total Bilirubin 0.30, AST 16, ALT 15, Alkaline Phosphatase 90, Total Protein 5.8 L, Albumin 3.2 L, Globulin 2.6, Albumin/Globulin Ratio 1.2 Imaging Radiology Impression MRCP 09/17/24 06:00 IMPRESSION: Small but abnormal amount of fluid around the pancreas. Moderate bilateral pleural effusions Absent gallbladder. No evidence of choledocholithiasis. Reading [facility] Orbit X-Ray 09/17/24 09:30 IMPRESSION: No radiopaque foreign body is seen. Cleared for MRI scanning. Reading Location: [facility] Assessment & Plan Assessment/Plan (1) Acute pancreatitis: (2) Hypertension: (3) Leukocytosis: PLAN: Plan 43-year-old with history of cholecystitis status post cholecystectomy with history of acute recurrent pancreatitis. She has no history of hypertriglyceridemia, cystic fibrosis, IgG associated disease, multiple endocrine neoplasia, celiac disease, vasculitis. However MRCP did not show any signs of pancreatic divisum.Her initial episode of pancreatitis started more than 4 years ago when she suffered from 4 episodes of acute pancreatitis and went on to have a cholecystectomy. She has never undergone any ERCP. Said she does not have pancreatic or further she would not benefit from a minor papillotomy or sphincterotomy. She has never been on pancreatic enzymes and she has never had an endoscopic ultrasound.The pancreatic parenchyma was normal in signal and appearance without mass or?pancreatic duct?dilatation on these tests. Her symptoms have increased in severity over the past year. She has no signs and symptoms of chronic pancreatitis. Recurrent acute pancreatitis is defined as more than 2 episodes of a sudden inflammation of the pancreas. Clinical symptoms usually start with?epigastric pain?that sometimes spreads to the back and is associated with nausea, vomiting, and fever. Most cases of acute pancreatitis result from?biliary stone disease?and longstanding alcohol consumption. Workup including: [facility] comprehensive, workup for cystic fibrosis, celiac disease, IgG4 associated, vasculitis, HIV, repeat triglycerides, inflammatory bowel disease, hereditary pancreatitis: Three-gene Profile (PRSS1, SPINK1, CFTR), Phosphatidylethanol (PEth)-lab a bit but she has any excessive alcohol with the last 3 months. Since ductal abnormalities, microlithiasis, and?sphincter of Oddi dysfunction type 1 or 2?are responsible for the majority of the idiopathic cases,?cholecystectomy?and, eventually, pancreatic?sphincterotomyis therapeutic in most cases Charges/Coding Visit Charges Inpatient E&M: 73038 Init Hosp L3
[2024-09-17 22:33] LABS: HIV Nonreactive (Nonreactive); Triglycerides 102 mg/dL
[2024-09-17 22:46] LABS: LDH 172 U/L (84-246)
[2024-09-17] MEDS: MELATONIN 10 MG TABLET PO (22:59)
[2024-09-17 23:09] LABS: Erythrocyte Sedimentation Rate 46 mm/hr (0-30)
[2024-09-18] VITALS (15 sets, daily range): BP systolic 133–168; BP diastolic 81–109; PULSE 66–86; RESP 14–20; TEMP 36.7–37.4; O2SAT 88–99; BMI 40.8; BMI 41.1
[2024-09-18] MEDS: Ondansetron 4 MG/2 ML Vial IV ×3 (01:03→20:30)
[2024-09-18] MEDS: HYDROmorphone 0.5 MG/0.5 ML SYRINGE IV ×4 (03:31→20:30)
[2024-09-18 03:37] LABS: Internal QC Validated? YES +Cl - CLEAR BKGD; Pregnancy, Urine Negative Negative
[2024-09-18 04:40] LABS: Hematocrit 31.9 % (37-47); Hemoglobin 10.5 g/dL (12.0-15.0); Mean Corp Hgb Conc 32.9 g/dL (32-36); Mean Platelet Vol. 9.6 fl (6.2-12.0); Platelet Count 316 K/mm3 (150-450); RBC Distribution Width CV 13.5 % (11.6-14.6); RBC Distribution Width SD 40.1 fl (35.1-43.9); Red Blood Count 3.89 M/mm3 (4.2-5.4); White Blood Count 7.5 K/mm3 (4.4-11.0)
[2024-09-18 04:50] LABS: Anion Gap 13 (5-15); BUN 5 mg/dL (4-19); BUN/Creat Ratio 12.8 RATIO (10-20); Calcium,Total 9.5 mg/dL (7.6-11.0); Carbon Dioxide 28.5 mmol/L (21.0-32.0); Chloride 96 mmol/L (98-108); Creatinine, Serum 0.36 mg/dL (0.70-1.20); EST Glomerular Filtration Rate 129 (>60); Estimated Creatinine Clearance 242.58 ml/min (50-250); Glucose 158 mg/dL (70-99); Potassium 2.9 mmol/L (3.3-5.1); Sodium Level 138 mmol/L (133-145)
--- NOTE | 2024-09-18 05:55 | EKG12_ITS ---
Test Reason : AM EKG Blood Pressure : */* mmHG Vent. Rate : 63 BPM Atrial Rate : 63 BPM P-R Int : 132 ms QRS Dur : 86 ms QT Int : 432 ms P-R-T Axes : 38 26 40 degrees QTcB Int : 442 ms Normal sinus rhythm Normal ECG When compared with ECG of 12-Sep-2024 08:14, Nonspecific T wave abnormality now evident in Inferior leads Nonspecific T wave abnormality now evident in Lateral leads Confirmed by DAQUAN SALGADO, DEBBIE ([id number]), deputy editor in chief BONITA MCKINNON ([id number]) on 09/18/2024 9:48:39 AM Referred By: Confirmed By: DEBBIE BUTT MD
[2024-09-18] MEDS: 0.9% Saline Lock 10 ML Syringe IV ×2 (07:39→11:04)
[2024-09-18] MEDS: 0.9% Normal Saline (1000mL) 1,000 ML 75 ML IV ×2 (09:10→20:29)
[2024-09-18] MEDS: Potassium Phosphate 40 MM in 0.9% Normal Saline (500mL Bag) 500 ML 62.5 MM IV (09:11)
--- NOTE | 2024-09-18 10:45 | PN.HOSP_ITS ---
Reason for Visit Reason for Visit: Diagnoses Elevated white blood cell count, unspecified (09/12/24) Essential (primary) hypertension (09/12/24) Acute pancreatitis without necrosis or infection, unspecified (09/12/24) Subjective Subjective Saw patient at bedside this morning. Patient was laying back comfortably in bed and appears mildly fatigued but similar to yesterday. She noted continued mild abdominal discomfort, similar to yesterday. Plan is for ERCP this afternoon and patient is looking forward to getting this done. No other acute concerns this morning. Objective Data Objective Data Vital Signs: Vital Signs Temp Pulse Resp BP Pulse Ox O2 Del Method O2 Flow Rate 98.2 F 68 16 133/102 H 93 Room Air 2 09/18/24 07:49 09/18/24 07:49 09/18/24 07:49 09/18/24 07:49 09/18/24 07:49 09/18/24 06:40 09/18/24 02:42 Oxygen Flow Rate (L/min) 2 Oxygen Delivery Method Room Air Weight: 108.6 kg Body Mass Index (BMI) 41.1 Intake & Output: Intake and Output for Last 24 Hours 09/16/24 09/17/24 09/18/24 23:59 23:59 23:59 Intake Total 6920.83 / 6920.83 1200 / 1200 991.25 / 991.25 Output Total 900 / 900 600 / 600 Balance 6920.83 / 6920.83 300 / 300 391.25 / 391.25 Lab / Micro Data 09/18/24 04:05 09/18/24 04:05 Labs: Laboratory Results - last 24 hr 09/17/24 08:51: ESR 46 H, Lactate Dehydrogenase 172, C-React Prot Ext Range 31.40 H, Triglycerides 102, HIV 1&2 Antibody Nonreactive 09/18/24 03:00: Urine Test Negative 09/18/24 04:05: WBC 7.5, RBC 3.89 L, Hgb 10.5 L, Hct 31.9 L, MCV 82.0, MCH 27.0, MCHC 32.9, RDW Std Deviation 40.1, RDW Coeff of Chelsie 13.5, Plt Count 316, MPV 9.6, Sodium 138, Potassium 2.9 L, Chloride 96 L, Carbon Dioxide 28.5, Anion Gap 13, BUN 5, Creatinine 0.36 L, Estim Creat Clear Calc 242.58, Est GFR (MDRD) Non- Af 129, BUN/Creatinine Ratio 12.8, Glucose 158 H, Calcium 9.5, NHAN-1 Antibody TNP, SS-A/Ro IgG Antibody TNP, SS-B/La IgG Antibody TNP, Sm (Guerrero) Antibody TNP, REAL ESTATE EXECUTIVE ASSISTANT Antibody TNP, Scl-70 Scleroderma Ab TNP, Double Strand DNA Ab TNP, Antichromatin Antibodies TNP, Centromere B Antibody TNP Radiography Diagnostic Testing: Radiology Impression MRCP 09/17/24 06:00 IMPRESSION: Small but abnormal amount of fluid around the pancreas. Moderate bilateral pleural effusions Absent gallbladder. No evidence of choledocholithiasis. Reading Location: [facility] Physical Exam Const alert, oriented x3 and no apparent distress Constitutional Narrative: Middle-age female, class III obesity, mildly fatigued appearing, otherwise laying back comfortably in bed, conversing normally, in no acute distress. Stable. General Appearance: cooperative and comfortable HEENT normocephalic, head/scalp atraumatic, hearing grossly normal bilaterally, nasal mucous membranes and turbinates normal and moist oral mucous membranes Eyes PERRL, EOMs intact bilaterally and conjunctivae normal Neck full ROM Chest inspection of chest normal Resp normal respiratory effort and no use of accessory muscles Resp Narrative: Breathing comfortably on room air at rest. Mild crackles noted in bilateral lung bases, no wheezing noted. Stable. Cardio regular rate, regular rhythm, no murmurs and peripheral pulses 2+ throughout GI GI Narrative: Abdomen with mild to moderate tenderness to palpation diffusely, otherwise soft and nondistended. Stable. Back/Spine normal ROM Extremity normal to inspection, full ROM and no pedal edema Skin no rashes or lesions noted Psych mental status grossly normal Assessment & Plan Assessment/Plan (1) Acute pancreatitis: PLAN: Plan Patient is a 43-year-old female who presented to [facility] ED on 09/12/2024 with abdominal pain. 1. Acute pancreatitis ? GI following. CT abdomen pelvis on admit with findings concerning for pancreatitis. Lipase 1599. No clear cause for pancreatitis. Minimal alcohol use, triglyceride level normal and LFTs fairly unremarkable. Attempted to advance diet to full liquids on 09/16 but patient reported significantly more pain. Repeat CT abdomen pelvis redemonstrated acute/uncomplicated pancreatitis. Lipase level was rechecked and did normalize on 09/16. MRCP on 09/17 showed small but abnormal amount of fluid around the pancreas; otherwise showed absent gallbladder and no evidence of choledocholithiasis. Per GI, planning for ERCP this afternoon for further evaluation. Extensive lab workup sent to rule out additional causes of pancreatitis as well. Appreciate GI recommendations regarding advancement of diet after ERCP. 2. Hepatomegaly ? Diffuse hepatic steatosis with hepatomegaly noted on CT abdomen pelvis on admit. Suspect secondary to fatty liver disease. No inpatient needs, outpatient follow-up. 3. Normocytic anemia ? Hemoglobin has remained stable around 10-11 during hospitalization. No inpatient needs, okay for outpatient follow-up. Chronic medical conditions: ? Class III obesity: BMI 40 on admit. Complicates hospital course, care and prognosis. ? Hypertension: Continue treatment with amlodipine 10 mg daily and losartan 100 mg daily, has had good blood pressure control on this. ? Anxiety/depression: Continue home fluoxetine. ? History of cholecystectomy DVT prophylaxis: Lovenox twice daily CODE STATUS: Full code, verified Expected disposition: Home, TBD Total clinical time spent by myself addressing the patient's medical issues, reviewing all the data, and collaborating with patient's care team: 35 minutes. Charges/Coding Visit Charges Inpatient E&M: 49356 Subs Hosp L2
--- NOTE | 2024-09-18 14:30 | NURSING ---
Pt to endo via bed
--- NOTE | 2024-09-18 15:24 | PRE.ANES_ITS ---
ASA Classification* ASA Classification ASA Classification: 3 Assessment & Plan Anesthesia* Anesthesia Assessment Anesthesia Assessment: Discussed sedation and/or anesthesia options, risks, benefits, and alternatives with patient/parents/legal guardian/POA. Questions invited. The patient/parents/legal guardian/POA seems to understand and agrees to proceed with anesthesia plan. Reviewed the physical assessment, medical history, allergy history and patient home medications list prior to surgery/procedure/anesthetic and documented any changes. Performed airway and anesthesia risk assessments. Anesthesia Type Anesthesia Type: General History Source History Obtained from:: Patient and Chart Anesthesia Focused Assessment* Temperature: 98.2 F Pulse Rate: 68 Blood Pressure: 133/102 Respiratory Rate: 16 Pulse Ox: 94 Oxygen Delivery Method: Room Air Oxygen Flow Rate (L/min): 2 Airway Assessment Mouth opens: >3 cm Mallampati Score: III Teeth Condition: Caps/Crowns (Patient has several crowns. They are all tight.) Neck Range of motion (ROM): Limited ROM (slight decrease in extension) Focused Labs Anesthesia Preop lab: CBC WBC 7.5 K/mm3 (4.4-11.0) 09/18/24 04:05 09/18/24 RBC 3.89 M/mm3 (4.2-5.4) L 09/18/24 04:05 09/18/24 Hgb 10.5 g/dL (12.0-15.0) L 09/18/24 04:05 5 Hct 31.9 % (37-47) L 09/18/24 04:05 09/18/24 Plt Count 316 K/mm3 (150-450) 09/18/24 04:05 09/18/24 CHEMISTRY Potassium 2.9 mmol/L (3.3-5.1) L 09/18/24 04:05 09/18/24 Sodium 138 mmol/L (133-145) 09/18/24 04:05 09/18/24 Magnesium 1.7 mg/dL (1.5-2.2) 09/17/24 05:57 09/17/24 Phosphorus 2.2 mg/dL (2.7-4.5) L 09/17/24 05:57 09/17/24 BUN 5 mg/dL (4-19) 09/18/24 04:05 09/18/24 Creatinine 0.36 mg/dL (0.70-1.20) L 09/18/24 04:05 Glucose 158 mg/dL (70-99) H 09/18/24 04:05 09/18/24 TSH 0.397 uIU/mL (0.300-4.200) 09/13/24 05:08 03/01/11 COAG Urine Test Negative Negative 09/18/24 03:00 09/18/24 Pre-Assessment Diagnosis/Proposed Procedure Planned Operative Procedure(s): Endoscopic retrograde cholangiopancreatography. 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 When Was Last Pacemaker Check QUESTION #4 FULL TEXT: You/Your Family Experience fever (hyperthermia) with Anesthesia Last Oral Intake Last Oral intake: Last Oral Intake NPO since 00:00 09/18/24 07:49 Meds taken in AM with sips of No 09/18/24 07:49 water? Meds patient instructed to take am of surgery PONV PONV - hospital tray service worker: PONV - hospital tray service worker Female HX of Motion Sickness HX of N/V After Surgery Non-Smoker Duration of Surgery greater than 60 minutes Number of Risk Factors PONV Score Height & Weight Height & Weight: Anesthesia: Height & Weight Height 5 ft 4 in 09/18/24 07:49 Weight: 108.6 kg 09/18/24 07:49 Body Mass Index (BMI) 41.1 09/18/24 07:49 Respiratory Assessment Respiratory Assessment - hospital tray service worker: Respiratory Tract Infection Hx - hospital tray service worker Hx Respiratory Tract Infection Yes: Cold 09/18/24 01:04 Any additional information?: Yes Hx Respiratory Tract Infection: Yes (Patient believes she had allergy symptoms. clear for about a week.) STOP Sleep Apnea STOP Sleep Apnea - hospital tray service worker: STOP Sleep Apnea - hospital tray service worker Hx Hypertension Yes 09/12/24 10:54 Hx Sleep Apnea No 09/12/24 10:54 CPAP BIPAP Do you snore loudly (louder No 09/12/24 10:54 than talking or can be heard Do you often feel tired/ No 09/12/24 10:54 fatigued/ sleepy during daytime? Has anyone observed you stop No 09/12/24 10:54 breathing during sleep? STOP Results Negative 09/12/24 10:54 QUESTION #5 FULL TEXT : Do you snore loudly (louder than talking or can be heard through closed doors)? Tobacco Use History Tobacco Use History - hospital tray service worker: Tobacco Use History - hospital tray service worker Tobacco Use Smoking Status Former smoker 09/12/24 17:40 Hx Tobacco Use No 09/12/24 10:54 Years Smoking Packs Smoked per Day Smoking Cessation Date was Yes - quit smoking within 15 09/12/24 10:54 within the last 15 years years Hx Smoking Cessation Date Hx Smoking Cessation Counseling Hematologic Medial History Hematologic Hx - hospital tray service worker: Hematologic Medical Hx - cable placer Hx of Blood Transfusion No 09/12/24 10:54 Hx of Transfusion in last 3 No 09/12/24 10:54 Months Date of Last Transfusion (if within last 3 months) Ever experience any problems No 09/12/24 10:54 with transfusion(s)? Specify any problems Hx of Preganancy in last 3 No 09/12/24 10:54 Months Nurse Filling Out Transfusion LC 09/12/24 10:54 & Questions: Date: 09/12/24 09/12/24 10:54 Time: 12:36 09/12/24 10:54 Patient unable to answer at this time (ie. confused, unrespo /Reproduction History /Reproductive History - hospital tray service worker: /Reproductive Hx- hospital tray service worker Hx Now No 09/18/24 01:04 Gestational Age (in weeks): EDC: Hx Hx Para Hx Section SAB No 09/18/24 01:04 Active Medications Active Medications: Current Medications Generic Name Dose Route Start Last Admin Trade Name Freq PRN Reason Stop Dose Admin Amlodipine Besylate 10 mg 09/16/24 10:00 09/17/24 11:42 Amlodipine 10 Mg Tablet PO 10 mg DAILY NANCY Administration Protocol Enoxaparin Sodium 40 mg 09/16/24 22:00 09/17/24 22:58 Enoxaparin 40 Mg/0.4 Ml Syringe SC Not Given BID NANCY Fluoxetine HCl 40 mg 09/12/24 10:54 09/17/24 11:43 Fluoxetine Hcl 40 Mg Capsule PO 40 mg DAILY NANCY Administration Fluticasone Propionate 2 spray 09/15/24 10:00 09/17/24 11:41 Fluticasone 0.05% 1 Standard Nasal.Sry NASAL 2 spray DAILY NANCY Administration Hydralazine HCl 10 mg 09/16/24 13:16 09/17/24 05:08 Hydralazine 20 Mg/Ml Vial IV 10 mg Q6H PRN PRN Administration SBP>150 Protocol Hydromorphone HCl 0.5 mg 09/16/24 17:38 09/18/24 11:04 Hydromorphone 0.5 Mg/0.5 Ml Syringe IV 0.5 mg Q3H PRN PRN Administration Pain Score 6-10 Sodium Chloride 1,000 mls @ 75 mls/hr 09/12/24 09:15 09/18/24 09:10 IV 75 mls/hr .[id number] NANCY Administration Sodium Chloride 100 mls @ 15 mls/hr 09/12/24 10:55 IV .Q6H40M PRN Saline Flush Potassium Phosphate 40 mm/ 513.3333 mls @ 62.5 mls/hr 09/18/24 07:48 09/18/24 09:11 Sodium Chloride IV 09/18/24 16:00 62.5 mls/hr X1 ONE Administration Ipratropium [place] 1 spray 09/12/24 10:54 Ipratropium [place] 0.06% Nasal Standard NASAL TID PRN PRN allergy symptoms Losartan Potassium 100 mg 09/16/24 10:00 09/17/24 11:41 Losartan Potassium 100 Mg Tablet PO 100 mg DAILY NANCY Administration Protocol Melatonin 10 mg 09/13/24 22:00 09/17/24 22:59 Melatonin 10 Mg Tablet PO 10 mg QHS NANCY Administration Ondansetron HCl 4 mg 09/12/24 11:37 09/18/24 07:39 Ondansetron 4 Mg/2 Ml Vial IV 4 mg Q6H PRN PRN Administration NAUSEA/VOMITING Pantoprazole Sodium 40 mg 09/16/24 10:00 09/17/24 11:43 Pantoprazole Sodium 40 Mg Tablet PO 40 mg DAILY NANCY Administration Polyethylene Glycol 17 gm 09/17/24 08:42 Polyethylene Glycol 3350 17 Gm Packet PO DAILY PRN constipation Senna 1 tablet 09/17/24 10:00 09/17/24 22:59 Senna Tablet PO 1 tablet BID NANCY Administration Sodium Chloride 10 - 40 ml 09/12/24 10:55 09/18/24 11:04 0.9% Saline Lock 10 Ml Syringe IV 10 ml UD PRN Administration SALINE FLUSH Sodium Chloride 2 spray 09/14/24 10:38 09/14/24 18:34 Sodium Chloride 0.65% 1 Standard Standard.Btl NASAL 2 spray TID PRN PRN Administration NASAL DRYNESS PFSH Medical History Pancreatitis Hypertension Anxiety Home Medications ?Medication ?Instructions ?Recorded ?Last Taken ?Type fluoxetine 40 mg capsule 40 mg PO DAILY 09/12/24 Unkn own History ipratropium bromide 42 mcg (0.06 1 spray intranasal TI D PRN PRN 09/12/24 Unknown History %) nasal spray allergy symptoms lisinopril 5 mg tablet 5 mg PO DAILY 09/12/24 Unkno wn History Allergy/AdvReac Type Severity Reaction Status Date / Time No Known Allergies Allergy Verified 09/12/24 06:59 Family History no significant family his Surgical History (Updated 09/18/24 @ 15:[address] Garry Howard MD) S/P ERCP Hx of cholecystectomy Social History Smoking Status: Former smoker alcohol intake: current alcohol intake frequency: 0-2 drinks per day substance use type: does not use Review of Systems (Anesthesia) ROS Narrative System reviewed and no additional complaints, except as documented.
--- NOTE | 2024-09-18 15:58 | PN_ITS ---
Progress Note Patient abdominal pain is a little bit better. Her lipase is improving. She is for ERCP today. Physical Exam Const alert, oriented x3 and no apparent distress Constitutional Narrative: Middle-age female, class III obesity, mildly fatigued appearing, otherwise laying back comfortably in bed, conversing normally, in no acute distress. Stable. General Appearance: cooperative and comfortable HEENT normocephalic, head/scalp atraumatic, hearing grossly normal bilaterally, nasal mucous membranes and turbinates normal and moist oral mucous membranes Eyes PERRL, EOMs intact bilaterally and conjunctivae normal Neck full ROM Chest inspection of chest normal Resp normal respiratory effort and no use of accessory muscles Resp Narrative: Breathing comfortably on room air at rest. Mild crackles noted in bilateral lung bases, no wheezing noted. Stable. Cardio regular rate, regular rhythm, no murmurs and peripheral pulses 2+ throughout GI GI Narrative: Abdomen with mild to moderate tenderness to palpation diffusely, otherwise soft and nondistended. Stable. Back/Spine normal ROM Extremity normal to inspection, full ROM and no pedal edema Skin no rashes or lesions noted Psych mental status grossly normal Assessment & Plan Assessment/Plan (1) Acute pancreatitis: (2) Hypertension: (3) Leukocytosis: PLAN: Plan 43-year-old with history of cholecystitis status post cholecystectomy with history of acute recurrent pancreatitis. She has no history of hypertriglyceridemia, cystic fibrosis, IgG associated disease, multiple endocrine neoplasia, celiac disease, vasculitis. However MRCP did not show any signs of pancreatic divisum.Her initial episode of pancreatitis started more than 4 years ago when she suffered from 4 episodes of acute pancreatitis and went on to have a cholecystectomy. She has never undergone any ERCP. Said she does not have pancreatic or further she would not benefit from a minor papillotomy or sphincterotomy. She has never been on pancreatic enzymes and she has never had an endoscopic ultrasound.The pancreatic parenchyma was normal in signal and appearance without mass or?pancreatic duct?dilatation on these tests. Her symptoms have increased in severity over the past year. She has no signs and symptoms of chronic pancreatitis. Recurrent acute pancreatitis is defined as more than 2 episodes of a sudden inflammation of the pancreas. Clinical symptoms usually start with?epigastric pain?that sometimes spreads to the back and is associated with nausea, vomiting, and fever. Most cases of acute pancreatitis result from?biliary stone disease?and longstanding alcohol consumption. Workup including: [facility] comprehensive, workup for cystic fibrosis, celiac disease, IgG4 associated, vasculitis, HIV, repeat triglycerides, inflammatory bowel disease, hereditary pancreatitis: Three-gene Profile (PRSS1, SPINK1, CFTR), Phosphatidylethanol (PEth)-lab a bit but she has any excessive alcohol with the last 3 months. Since ductal abnormalities, microlithiasis, and?sphincter of Oddi dysfunction type 1 or 2?are responsible for the majority of the idiopathic cases, ?cholecystectomy?and, eventually, pancreatic?sphincterotomyis therapeutic in most cases 09/18/2024-patient will undergo ERCP today. She was explained risks, benefits including not withstanding bleeding, infection, sepsis, perforation, and an ERCP pancreatitis. She agreed to set these risks and she will have ASA of 3. Visit Charges Inpatient E&M: 38546 Subs Hosp L3
--- NOTE | 2024-09-18 16:10 | RAD_ITS ---
EXAM: ERCP. Fluoroscopic services. CLINICAL HISTORY: Abdominal pain. COMPARISON: None TECHNIQUE: Fluoroscopic services provided for ERCP. 5.4 seconds of fluoroscopy. 2.64 mGy. 9 spot images were obtained. FINDINGS: There is opacification of the common bile duct as well as the intrahepatic biliary ducts. Stent placement. RAD/ERCP Biliary/Pancreas IMPRESSION: ERCP for stent placement. Reading Location: [facility]
--- NOTE | 2024-09-18 16:54 | OP.CCLET_ITS ---
09/18/2024 Mary Escobar Md Re : ERCP procedure for Madison Liu Dear Luz This procedure was performed on Wednesday, September 18, 2024. My impressions and recommendations are as follows: Impressions : - Duodenal diverticulum. - The major papilla appeared normal. - The major papilla was adjacent to a diverticulum. - The major papilla appeared congested. - The major papilla appeared to be bulging. - A single localized biliary stricture was found in the lower third of the main bile duct. The stricture was inflammatory. - The entire main bile duct and common bile duct were dilated, acquired. - The patient has had a cholecystectomy. - Choledocholithiasis was found. Complete removal was accomplished by biliary sphincterotomy and balloon extraction. - A biliary sphincterotomy was performed. - The biliary tree was swept. - One temporary stent was placed into the common bile duct. Recommendations : My findings are described in the full procedure note, which is enclosed. If I can be of further assistance, please feel free to contact me at . Sincerely, Arturo Sotelo, 09/18/2024 4:54:07 PM This report has been signed electronically.
--- NOTE | 2024-09-18 16:54 | OP.ERCP_ITS ---
Patient Name: Madison Liu Procedure Date: 09/18/2024 2:38 PM Date of : 1980 Age: 43 Procedure: ERCP Indications: Abdominal pain of suspected biliary or pancreatic origin, Elevated liver enzymes, Acute recurrent pancreatitis Providers: Arturo Sotelo DO Medicines: Monitored Anesthesia Care Patient Profile: This is a 43 year old female. Refer to note in patient chart for documentation of history and physical. Patient has symptoms of acute right upper quadrant abdominal pain, acute epigastric abdominal pain, acute nausea and acute vomiting. This patient has no history of previous ERCP. She is status post laparoscopic cholecystectomy in the distant past. Complications: No immediate complications. Procedure: Pre-Anesthesia Assessment: - Prior to the procedure, a History and Physical was performed, and patient medications and allergies were reviewed. The patient is competent. The risks and benefits of the procedure and the sedation options and risks were discussed with the patient. All questions were answered and informed consent was obtained. Patient identification and proposed procedure were verified by the physician in the pre-procedure area. Mental Status Examination: alert and oriented. Airway Examination: normal oropharyngeal airway and neck mobility. Respiratory Examination: clear to auscultation. CV Examination: normal. ASA Grade Assessment: II - A patient with mild systemic disease. After reviewing the risks and benefits, the patient was deemed in satisfactory condition to undergo the procedure. The anesthesia plan was to use general anesthesia. Immediately prior to administration of medications, the patient was re-assessed for adequacy to receive sedatives. The heart rate, respiratory rate, oxygen saturations, blood pressure, adequacy of pulmonary ventilation, and response to care were monitored throughout the procedure. The physical status of the patient was re-assessed after the procedure. After obtaining informed consent, the scope was passed under direct vision. Throughout the procedure, the patient's blood pressure, pulse, and oxygen saturations were monitored continuously. The Duodenoscope was introduced through the mouth, and advanced to the duodenum and used to inject contrast into the bile duct. The ERCP was accomplished without difficulty. The patient tolerated the procedure well. Scope In: 4:34:08 PM Scope Out: 4:45:20 PM Total Procedure Duration Time 0 hours 11 minutes 12 seconds Findings: The overhauler film was normal. A standard esophagogastroduodenoscopy scope was used for the examination of the upper gastrointestinal tract. The scope was passed under direct vision through the upper GI tract. A small-mouthed diverticulum was found in the area of the papilla. The upper GI tract was traversed under direct vision without detailed examination. The major papilla was normal. The major papilla was adjacent to a diverticulum. The major papilla was congested. The major papilla was bulging. The minor papilla was not found. A long 0.025 inch Jagwire was passed into the biliary tree. The short-nosed traction sphincterotome was passed over the guidewire and the bile duct was then deeply cannulated. Contrast was injected. I personally interpreted the bile duct images. Ductal flow of contrast was adequate. Image quality was adequate. Contrast extended to the entire biliary tree. Opacification of the entire biliary tree except for the gallbladder was successful. The maximum diameter of the ducts was 10 mm. The lower third of the main bile duct contained a single localized stenosis 6 mm in length. The main bile duct and common bile duct were diffusely dilated, acquired. The largest diameter was 10 mm. A cholecystectomy had been performed. A 5 mm biliary sphincterotomy was made with a traction (standard) sphincterotome using ERBE electrocautery. There was no post-sphincterotomy bleeding. The biliary tree was swept with a 12 mm balloon starting at the bifurcation. Sludge was swept from the duct. All stones were removed. One 10 Fr by 7 cm temporary stent was placed 5 cm into the common bile duct. Bile flowed through the stent. The stent was in good position. Impression: - Duodenal diverticulum. - The major papilla appeared normal. - The major papilla was adjacent to a diverticulum. - The major papilla appeared congested. - The major papilla appeared to be bulging. - A single localized biliary stricture was found in the lower third of the main bile duct. The stricture was inflammatory. - The entire main bile duct and common bile duct were dilated, acquired. - The patient has had a cholecystectomy. - Choledocholithiasis was found. Complete removal was accomplished by biliary sphincterotomy and balloon extraction. - A biliary sphincterotomy was performed. - The biliary tree was swept. - One temporary stent was placed into the common bile duct. Procedure Code(s): --- Professional --- 54471, Endoscopic retrograde cholangiopancreatography (ERCP); with placement of endoscopic stent into biliary or pancreatic duct, including pre- and post-dilation and guide wire passage, when performed, including sphincterotomy, when performed, each stent [id number], Endoscopic retrograde cholangiopancreatography (ERCP); with removal of calculi/debris from biliary/pancreatic duct(s) 66010, 26, Endoscopic catheterization of the biliary ductal system, radiological supervision and interpretation CPT copyright 2021 [employer]. All rights reserved. The codes documented in this report are preliminary and upon certified professional coder review may be revised to meet current compliance requirements. Arturo Sotelo DO 09/18/2024 4:54:07 PM This report has been signed electronically. Number of Addenda: 0 Note Initiated On: 09/18/2024 2:38 PM
--- NOTE | 2024-09-18 17:04 | PCM.POST.ANE ---
Anesthesia: Postop Eval I Current Vital Signs Temperature: 99.3 F Pulse Rate: 80 Blood Pressure: 154/94 Respiratory Rate: 14 Pulse Ox: 94 Oxygen Delivery Method: Room Air Assessment Airway patent: Yes Spontaneous unlabored respirations: Yes Mental status: Awake and Calm nausea: No Vomiting: No Anesthesia Complication: No Fluid Hydration Crystalloid volume administer (ml): 500 Total IV fluid infused: 500 Progress Note Anesthesia document: Postop Eval 1 completed: Yes
[2024-09-18] MEDS: Losartan Potassium 100 MG Tablet PO (18:20)
[2024-09-18] MEDS: Fluoxetine HCl 40 MG CAPSULE PO (18:21)
[2024-09-18] MEDS: Pantoprazole Sodium 40 MG Tablet PO (18:21)
[2024-09-18] MEDS: amLODIPine 10 MG Tablet PO (18:21)
[2024-09-18] MEDS: Senna Tablet 1 TABLET PO ×2 (18:22→20:30)
--- NOTE | 2024-09-18 20:08 | POSTOPAN2_ITS ---
Anesthesia Postop Eval I Sum Postop Eval Completion status Anesthesia document: Postop Eval 1 completed: Yes Anesthesia Postop Eval I Summary Anesthesia Postop Eval I Summary: Anesthesia Postop Eval I: Assessment Summary Airway patent Yes 09/18/24 17:05 SPINNING LATHE OPERATOR HYDRAULIC.[email or web address] Spontaneous unlabored Yes 09/18/24 17:05 SPINNING LATHE OPERATOR HYDRAULIC.JBLOU respirations Mental status Awake,Calm 09/18/24 17:05 SPINNING LATHE OPERATOR HYDRAULIC.JBLOU nausea No 09/18/24 17:05 SPINNING LATHE OPERATOR HYDRAULIC.JBLOU Vomiting No 09/18/24 17:05 SPINNING LATHE OPERATOR HYDRAULIC.JBLOU Anesthesia Postop Eval I: Fluid Summary Crystalloid volume administer 500 09/18/24 17:05 SPINNING LATHE OPERATOR HYDRAULIC.JBLOU (ml) Colloids volume administered ( ml) Blood Product volume administered (ml) Total IV fluid infused 500 09/18/24 17:05 SPINNING LATHE OPERATOR HYDRAULIC.JBLOU Anesthesia Postop Eval I: Summary Notes Anesthesia Complication No 09/18/24 17:05 SPINNING LATHE OPERATOR HYDRAULIC.JBLOU Anesthesia Complication Comment: Post-operative progress note Anesthesia: Postop Eval II Evaluation Mental status: Awake and Calm Pain Level: 1 nausea: Yes Vomiting: No Progress Note Post-operative progress note: Zofran given for nausea. Complications Anesthesia Complication: No
--- NOTE | 2024-09-18 20:08 | PCM.POSTANE2 ---
Anesthesia Postop Eval I Sum Postop Eval Completion status Anesthesia document: Postop Eval 1 completed: Yes Anesthesia Postop Eval I Summary Anesthesia Postop Eval I Summary: Anesthesia Postop Eval I: Assessment Summary Airway patent Yes 09/18/24 17:05 [employer] HEALTH OFFICER.[email or web address] Spontaneous unlabored Yes 09/18/24 17:05 COUNTY HEALTH OFFICER.JBLOU respirations Mental status Awake,Calm 09/18/24 17:05 COUNTY HEALTH OFFICER.JBLOU nausea No 09/18/24 17:05 COUNTY HEALTH OFFICER.JBLOU Vomiting No 09/18/24 17:05 COUNTY HEALTH OFFICER.JBLOU Anesthesia Postop Eval I: Fluid Summary Crystalloid volume administer 500 09/18/24 17:05 COUNTY HEALTH OFFICER.JBLOU (ml) Colloids volume administered ( ml) Blood Product volume administered (ml) Total IV fluid infused 500 09/18/24 17:05 COUNTY HEALTH OFFICER.JBLOU Anesthesia Postop Eval I: Summary Notes Anesthesia Complication No 09/18/24 17:05 COUNTY HEALTH OFFICER.JBLOU Anesthesia Complication Comment: Post-operative progress note Anesthesia: Postop Eval II Evaluation Mental status: Awake and Calm Pain Level: 1 nausea: Yes Vomiting: No Progress Note Post-operative progress note: Zofran given for nausea. Complications Anesthesia Complication: No
[2024-09-18] MEDS: MELATONIN 10 MG TABLET PO (20:29)
[2024-09-18] MEDS: Enoxaparin 40 MG/0.4 ML Syringe SC (20:30)
[2024-09-19 02:07] VITALS: BP 145/88; PULSE 76; RESP 18; TEMP 36.9; O2SAT 95
[2024-09-19] MEDS: HYDROmorphone 0.5 MG/0.5 ML SYRINGE IV ×3 (02:18→08:55)
[2024-09-19] MEDS: Ondansetron 4 MG/2 ML Vial IV ×2 (02:18→08:55)
[2024-09-19 03:45] VITALS: BMI 41.2
[2024-09-19 05:49] VITALS: BP 150/83; PULSE 75; RESP 16; TEMP 36.6; O2SAT 97
[2024-09-19 06:35] LABS: Anion Gap 14 (5-15); BUN 7 mg/dL (4-19); BUN/Creat Ratio 12.4 RATIO (10-20); Calcium,Total 9.7 mg/dL (7.6-11.0); Carbon Dioxide 25.9 mmol/L (21.0-32.0); Chloride 98 mmol/L (98-108); Creatinine, Serum 0.57 mg/dL (0.70-1.20); EST Glomerular Filtration Rate 115 (>60); Estimated Creatinine Clearance 151.87 ml/min (50-250); Glucose 239 mg/dL (70-99); Potassium 3.7 mmol/L (3.3-5.1); Sodium Level 138 mmol/L (133-145)
[2024-09-19 08:24] VITALS: O2SAT 95
[2024-09-19] MEDS: Enoxaparin 40 MG/0.4 ML Syringe SC (08:47)
[2024-09-19] MEDS: Fluticasone 0.05% 1 SPRAY NASAL.SRY 2 SPRAY NASAL (08:48)
[2024-09-19] MEDS: Senna Tablet 1 TABLET PO (08:54)
[2024-09-19] MEDS: amLODIPine 10 MG Tablet PO (08:54)
[2024-09-19] MEDS: Pantoprazole Sodium 40 MG Tablet PO (08:54)
[2024-09-19] MEDS: 0.9% Saline Lock 10 ML Syringe IV (08:55)
[2024-09-19] MEDS: 0.9% Normal Saline (1000mL) 1,000 ML 75 ML IV (08:56)
[2024-09-19 10:06] VITALS: BP 175/99; PULSE 71; RESP 18; TEMP 36.7; O2SAT 97
[2024-09-19] MEDS: Fluoxetine HCl 40 MG CAPSULE PO (10:10)
[2024-09-19] MEDS: Losartan Potassium 100 MG Tablet PO (10:10)
--- NOTE | 2024-09-19 11:46 | DS.PCM_ITS ---
Providers Date of Admission: 09/12/24 Date of Discharge: 09/19/24 Primary Care Physician: Mary Escobar MD Consultations 09/17/24 15:22 Consult: Gastroenterology Routine Consulting Provider: Beatriz G[facility] Reason for Consult: acute pancreatitis of unclear cause, difficulty w/ advancing diet EMERGENT Consult: No MD Notified: Yes Date Notified: 09/17/24 Time Notified: 15:40 Method of Notification: Text Reason For Visit: ACUTE PANCREATITIS Diagnosis Discharge Diagnosis (1) Acute pancreatitis: Status: Acute Code(s): K85.90 - Acute pancreatitis without necrosis or infection, unspecified (2) Hypertension: Status: Chronic Code(s): I10 - Essential (primary) hypertension (3) Leukocytosis: Status: Acute Code(s): D72.829 - Elevated white blood cell count, unspecified (4) Acute abdominal pain: Status: Acute Code(s): R10.9 - Unspecified abdominal pain Medications at Discharge Home Medications fluoxetine 40 mg capsule 40 mg PO DAILY mental health 09/12/24 ipratropium bromide 42 mcg (0.06 %) nasal spray 1 spray intranasal TID PRN PRN allergy symptoms 09/12/24 amlodipine 10 mg tablet 10 mg PO DAILY 30 days #30 tabs 09/19/24 losartan 100 mg tablet 100 mg PO DAILY 30 days #30 tabs 09/19/24 ondansetron 4 mg disintegrating tablet 4 mg PO Q6H PRN nausea and vomiting 3 days #12 tabs 09/19/24 oxycodone 5 mg tablet 5 mg PO Q6H PRN pain 3 days #12 tabs 09/19/24 Hospital Course Operations ERCP Procedures EKG and - (CT abdomen pelvis x 2, MRCP) Summary of Care Provided Minutes Spent on Discharge: 35 Hospital Course: Patient is a 43-year-old female who presented to [facility] ED on 09/12/2024 with abdominal pain. Hospital course as noted below. Patient discharged home in stable condition on 09/19. 1. Acute pancreatitis ? GI followed. CT abdomen pelvis on admit with findings concerning for pancreatitis. Lipase 1599. No clear cause for pancreatitis. Minimal alcohol use, triglyceride level normal and LFTs fairly unremarkable. Attempted to advance diet to full liquids on 09/16 but patient reported significantly more pain. Repeat CT abdomen pelvis redemonstrated acute/uncomplicated pancreatitis. Lipase level was rechecked and did normalize on 09/16. MRCP on 09/17 showed small but abnormal amount of fluid around the pancreas; otherwise showed absent gallbladder and no evidence of choledocholithiasis. However, ERCP on 09/18 showed choledocholithiasis and biliary stricture with dilated main bile duct and common bile duct; complete removal was accomplished by biliary sphincterotomy and balloon extraction and 1 temporary stent was placed in the common bile duct. Patient did well post ERCP, was stable for discharge home on 09/19. Notably did have extensive lab workup sent to rule out additional causes of pancreatitis; will follow-up with GI in the office after discharge. 2. Hepatomegaly ? Diffuse hepatic steatosis with hepatomegaly noted on CT abdomen pelvis on admit. Suspect secondary to fatty liver disease. No inpatient needs, outpatient follow-up. 3. Normocytic anemia ? Hemoglobin remained stable around 10-11 during hospitalization. No inpatient needs, okay for outpatient follow-up. Chronic medical conditions: ? Class III obesity: BMI 40 on admit. Complicated hospital course, care and prognosis. ? Hypertension: Was hypertensive early in admission and was started on amlodipine 10 mg daily and losartan 100 mg daily with good blood pressure control, will continue these on discharge. ? Anxiety/depression: Continue home fluoxetine. ? History of cholecystectomy Total clinical time spent by myself addressing the patient's medical issues, reviewing all the data, and collaborating with patient's care team: 35 minutes. Physical Exam Const alert, oriented x3 and no apparent distress Constitutional Narrative: Middle-age female, class III obesity, energy improved, laying back comfortably in bed, conversing normally, in no acute distress. Stable. General Appearance: cooperative and comfortable HEENT normocephalic, head/scalp atraumatic, hearing grossly normal bilaterally, nasal mucous membranes and turbinates normal and moist oral mucous membranes Eyes PERRL, EOMs intact bilaterally and conjunctivae normal Neck full ROM Chest inspection of chest normal Resp normal respiratory effort and no use of accessory muscles Resp Narrative: Breathing comfortably on room air at rest. No wheezing or crackles noted. Cardio regular rate, regular rhythm, no murmurs and peripheral pulses 2+ throughout GI GI Narrative: Abdomen soft, nondistended and nontender to palpation. Improved. Back/Spine normal ROM Extremity normal to inspection, full ROM and no pedal edema Skin no rashes or lesions noted Psych mental status grossly normal Weight / BMI Weight Weight: 108.9 kg Body Mass Index (BMI) 41.2 ABG / Lab / Microbiology Data 09/18/24 04:05 09/19/24 05:48 Laboratory: Laboratory Results - last 24 hr 09/18/24 04:05: NHAN-1 Antibody <0.2, SS-A/Ro IgG Antibody < 0.2, SS-B/La IgG Antibody < 0.2, Sm (Guerrero) Antibody <0.2, [employer] Antibody <0.2, Scl-70 Scleroderma Ab <0.2, Double Strand DNA Ab <1, Antichromatin Antibodies <0.2, Centromere B Antibody <0.2 09/19/24 05:48: Sodium 138, Potassium 3.7, Chloride 98, Carbon Dioxide 25.9, Anion Gap 14, BUN 7, Creatinine 0.57 L, Estim Creat Clear Calc 151.87, Est GFR (MDRD) Non-Af 115, BUN/Creatinine Ratio 12.4, Glucose 239 H, Calcium 9.7 Radiography Diagnostic Testing: Radiology Impression Endo Retro Cholangiopancreatogram 09/18/24 16:10 IMPRESSION: ERCP for stent placement. Reading Location: [place] [address] D/C Instructions DC O2, CPAP, BIPAP Needs Home O2 Discharge instructions: No Meaningful Use Info Meaningful Use Meaningful Use Diagnoses (Choose all that apply): None applicable Ischemic Stroke Statin Dosing Therapy Reference: STATIN DOSE THERAPY REFERENCE: * Patients > 75 years receive moderate or high dose statin therapy. * Patients 75 years or YOUNGER should receive HIGH intensity statin dose unless contraindicated. You will be required to document reason for non-treatment if statin daily dose does not meet guidelines. HIGH DOSE STATIN THERAPY DAILY Atorvastatin > than or = to 40 mg Rosuvastatin > than or = to 20 mg Amlodipine + Atorvastatin > than or = to 2.5/40 mg Ezetimibe + Simvastatin 10/80 mg Simvastatin 80mg Discharge Plan Admission Admit Date/Time: 09/12/24 09:34 Primary Reason for Your Visit: abdominal pain Attending Provider: Kris Gibbs Primary Care Provider: Mary Escobar Consulting Providers: Charlotte Gibbs Instructions Additional Instructions / Restrictions: Please take amlodipine and losartan for your high blood pressure going forward. Use oxycodone and Zofran as needed for the next 3 days for pain and nausea control. Please call Dr. Sotelo's office to schedule a follow-up appointment soon. Discharge Orders/Prescriptions Prescriptions: New amlodipine 10 mg Tablet 10 mg PO DAILY 30 Days Qty: 30 2RF losartan 100 mg Tablet 100 mg PO DAILY 30 Days Qty: 30 2RF oxycodone 5 mg tablet 5 mg PO Q6H PRN (Reason: pain) 3 Days Qty: 12 0RF ondansetron 4 mg tablet,disintegrating 4 mg PO Q6H PRN (Reason: nausea and vomiting) 3 Days Qty: 12 0RF Continued ipratropium bromide 42 mcg (0.06 %) spray,non-aerosol 1 spray INTRANASAL TID PRN PRN (Reason: allergy symptoms) fluoxetine 40 mg capsule 40 mg PO DAILY Discontinued lisinopril 5 mg tablet 5 mg PO DAILY Referrals / Follow Up: Mary Escobar MD [Primary Care Provider] - Arturo Sotelo DO [Med Staff - Active Staff] - Disposition Disposition (needs filled in before D/C Order can be placed): Home, Self Care Charges/Coding Visit Charges Inpatient E&M: 82916 Disch Hosp >30min
[2024-09-19 12:08] LABS: Anti-Centromere B Ab <0.2 AI (0.0-0.9); Anti-Chromatin <0.2 AI (0.0-0.9); Anti-Jo <0.2 AI (0.0-0.9); Anti-Scleroderma-70 AB <0.2 AI (0.0-0.9); Anti-dsDNA Ab <1 IU/mL (0-9); RNP Ab <0.2 AI (0.0-0.9); SJOGREN'S Anti-SS-A test < 0.2 AI (0.0-0.9); SJOGREN'S Anti-SS-B test < 0.2 AI (0.0-0.9); Smith Ab <0.2 AI (0.0-0.9)
--- NOTE | 2024-09-19 13:30 | CASEMGMT ---
PARAM HENDRIX NOTE: Discharge order is in. PARAM HENDRIX to room. Pt sitting on edge of bed. Introduced self and role. She has been up ad shira in room. Aware Rx's have beee sent to [facility]. Her daughter will be taking her home and they can sampler pickup the Rx's today. Pt denies having any discharge needs or concerns. Amanuel ALEGRIA RN, CM
--- NOTE | 2024-09-19 14:19 | PHA.DC.MC.R ---
Pharmacy [facility] has performed discharge medication reconciliation and counseling for this patient. 1. AMLODIPINE 10MG PO DAILY 2. LOSARTAN 100MG PO DAILY 3. ONDANSETRON ODT 4MG PO Q6H PRN NAUSEA/VOMITING 4. OXYCODONE 5MG PO Q6H PRN PAIN The patient's discharge medication list was reviewed for discrepancies and discrepancies were resolved. The patient was counseled on the following discharge medications and changes in medications for homegoing were reviewed. The Reason for Use, instructions for use, and potential side effects were reviewed for all new medications. The patient's questions regarding all of their medications were answered. The patient was able to verbally demonstrate an understanding of their discharge medications. Medications at Discharge Home Medications fluoxetine 40 mg capsule 40 mg PO DAILY mental health 09/12/24 ipratropium bromide 42 mcg (0.06 %) nasal spray 1 spray intranasal TID PRN PRN allergy symptoms 09/12/24 amlodipine 10 mg tablet 10 mg PO DAILY 30 days #30 tabs 09/19/24 losartan 100 mg tablet 100 mg PO DAILY 30 days #30 tabs 09/19/24 ondansetron 4 mg disintegrating tablet 4 mg PO Q6H PRN nausea and vomiting 3 days #12 tabs 09/19/24 oxycodone 5 mg tablet 5 mg PO Q6H PRN pain 3 days #12 tabs 09/19/24
[2024-09-19 14:23] VITALS: BP 161/106; PULSE 78; RESP 16; TEMP 36.7; O2SAT 97
== END 2024-09-19 14:48 | disposition home or self-care (01) | DRG 444 ==
LOC: ED 09:00 → PCU 09:56
PROVIDERS: Anesthesiology; Internal Medicine Gastroenterology; Admitting Provider Internal Medicine; Emergency Provider Emergency Medicine; PCP Family Medicine; Visit Provider Hospitalist
PROC: 0FC98ZZ Extirpation of Matter from Common Bile Duct, Via Natural or Artificial Opening Endoscopic (ICD-10-PCS; CPT 43260; principal; 2024-09-18 15:40)
DX: K80.51 Calculus of bile duct without cholangitis or cholecystitis with obstruction (principal); K85.90 Acute pancreatitis without necrosis or infection, unspecified; R18.8 Other ascites; Z68.41 Body mass index [BMI] 40.0-44.9, adult; K76.0 Fatty (change of) liver, not elsewhere classified; I10 Essential (primary) hypertension; F32.A Depression, unspecified; D72.829 Elevated white blood cell count, unspecified; F41.9 Anxiety disorder, unspecified; K83.8 Other specified diseases of biliary tract; K57.10 Diverticulosis of small intestine without perforation or abscess without bleeding; Z87.891 Personal history of nicotine dependence; R07.9 Chest pain, unspecified; E66.813 Obesity, class 3; Z90.49 Acquired absence of other specified parts of digestive tract
CPT/HCPCS: 36415; 70030; 74177; 74181; 74330; 76000; 80048; 80053; 80076; 80307; 81001; 81025; 82077; 82784; 82785; 82787; 83516; 83615; 83690; 83735; 84100; 84165; 84443; 84478; 84484; 84703; 85025; 85027; 85652; 86036; 86037; 86140; 86225; 86235; 86255; 86301; 86334; 86644; 86645; 86664; 86665; 86671; 86703; 93005; 94668; 99252; 99284; C2625; Q9967; A4216; G0463; J1940; J2405

== ENCOUNTER 2024-09-24 04:31 | Emergency (ER) | payer BC, SELFPAY ==
[2024-09-24 04:32] VITALS: BP 161/95; PULSE 83; RESP 18; TEMP 37.1; O2SAT 100; BMI 37.2
--- NOTE | 2024-09-24 04:43 | ED.VIS.GI ---
HPI HPI - GI History of Present Illness Chief Complaint: Flank Pain Informant: patient Narrative Narrative: 44-year-old female had relatively abrupt onset of pain in her right flank mostly in the side and front of her abdomen on the right side yesterday afternoon, 12 or so hours ago, has been colicky, but worst this morning. Associated with an episode of vomiting prior to coming here. No urinary issues. No fevers or chills. No worse with movement. Never had this before. No history of kidney stones that she knows of. She became concerned because 1 week ago she had an ERCP with a stent placed due to finding choledocholithiasis and a biliary stricture, presumably which had leg to an episode of acute pancreatitis, which gave her high epigastric severe pains much different than what she is experiencing now, she had a cholecystectomy about 19 years ago. [facility] Medical History Pancreatitis Hypertension Anxiety Home Medications ?Medication ?Instructions ?Recorded ?Last Taken ?Type fluoxetine 40 mg capsule 40 mg PO DAILY mental health 09/12/24 Unknown History ipratropium bromide 42 mcg (0.06 1 spray intranasal TID PRN PRN 09/12/24 Unknown History %) nasal spray allergy symptoms amlodipine 10 mg tablet 10 mg PO DAILY 30 days #30 tabs 09/19/24 Unknown Rx losartan 100 mg tablet 100 mg PO DAILY 30 days #30 tabs 09/19/24 Unknown Rx ondansetron 4 mg disintegrating 4 mg PO Q6H PRN nausea and 09/19/24 Unknown Rx tablet vomiting 3 days #12 tabs oxycodone 5 mg tablet 5 mg PO Q6H PRN pain 3 days #12 09/19/24 Unknown Rx tabs Allergy/AdvReac Type Severity Reaction Status Date / Time No Known Allergies Allergy Verified 09/24/24 04:32 Family History no significant family his Surgical History S/P ERCP Hx of cholecystectomy Social History Smoking Status: Former smoker alcohol intake: current alcohol intake frequency: 0-2 drinks per day substance use type: does not use ROS ROS ED Constitutional Constitutional ED: Denies chills or fever(s) Eyes Eyes: Denies change in vision or diplopia ENT ENT ED: Denies rhinorrhea or sore throat Cardiovascular Cardiovascular: Denies chest pain or palpitations Respiratory/Chest Respiratory/Chest: Denies cough or dyspnea Gastrointestinal Gastrointestinal: Reports abdominal pain, nausea and vomiting; Denies diarrhea Genitourinary Genitourinary ED: Reports as per HPI and flank pain; Denies dysuria or hematuria Musculoskeletal Musculoskeletal: Reports back pain; Denies neck pain Integumentary Denies abscess or rash Neurologic Neurologic: Denies headache(s), paresthesias or weakness Psychiatric Psychiatric: Denies suicidal thoughts EXAM Physical Exam Const Vital Signs: 09/24/24 04:32 09/24/24 05:58 Temperature 98.7 F 98.4 F Temperature Source Oral Oral Pulse Rate 83 76 Respiratory Rate 18 16 Blood Pressure 161/95 H 131/84 H Blood Pressure Mean 117 99 Pulse Ox 100 96 Oxygen Delivery Method Room Air Room Air Positive well nourished and well developed Constitutional Narrative: Well-appearing in no distress General Appearance ED: well developed and NAD HEENT Reports moist mucous membranes normocephalic and atraumatic Eyes PERRL and EOMs intact bilaterally Neck full ROM and supple Resp normal respiratory effort and clear to auscultation bilaterally Cardio regular rate, regular rhythm and no murmurs GI non-distended GI Narrative: Tender throughout the right side of her abdomen, no guarding or rebound, negative Hagen. RUQ minimally tender compared with right mid and lower abd. No jaundice. Auscultation: normoactive bowel sounds Palpation: soft Back/Spine no CVA tenderness General Back: other FROM Extremity normal to inspection General Extremety ED: Negative for edema, pulses abnormal or tenderness General Extremity: Negative for edema or pulses abnormal Neuro oriented x3, CN's II-XII intact bilaterally, no sensory deficits noted and gait normal Sensorium / Orientation: awake and alert Motor Exam: strength 5/5 throughout Psych mental status grossly normal and thought process normal Skin no rashes or lesions noted and no wounds MDM MDM MDM Narrative Medical decision making narrative: Reviewing recent imaging, she had a CT of the abdomen/pelvis 1 week ago that showed no nephrolithiasis, she had some mild bilateral perinephric stranding. Her symptoms right now are concerning for renal colic given its location, however no obstructive uropathy from a stone is unlikely. Repeating this imaging may be helpful in discerning if there is any renal asymmetry. Pyelonephritis is in the differential, but would be an atypical case and she has no urinary symptoms preceding this. Will also obtain liver enzymes give her doses of Toradol and Zofran, she does not want any narcotics because they made her feel poorly last time she received them. Her test is negative ruling out ectopic. She has a significant leukocytosis. That combined with the fact that she had no uroliths throughout her urinary tract 1 week ago, obtained the CT with IV contrast. I reviewed the images and the report which I agree with. Essentially there are a lot of findings but it shows that everything that she had before appears to be improved or resolved including the right pleural effusion, so that is probably not causing her symptoms. The only thing that is new that was not there before is mild bladder wall thickening, but her urinalysis does not show signs of infection. There is occult blood, but again no uroliths. The rest of her labs are normal including liver enzymes except for alkaline phosphatase just barely abnormal at 121 which is nonspecific. I went to reevaluate her. After the Toradol she is feeling much better, her pain is 2/10, and she has no lower abdominal tenderness, just very mild in her right upper quadrant only. No epigastric tenderness. I discussed with Dr. Sotelo who looked at the CT as well, and agrees that everything looks pretty good and that she can follow-up as an outpatient. I am going to give her a dose of cefepime 2 g in the off chance that this could be early cholangitis, but she really is not presenting with classic cholangitis and she has no fevers, jaundice or elevated bilirubin. Given that her vital signs are normal, she is in very little discomfort, ambulatory in the ER and is well-appearing, I think after the dose of antibiotic she can go home and follow-up closely with GI and/or her PCP. She is comfortable with that plan we discussed all of this. Lab Data Attestation: I reviewed the patient's lab results. Labs: Laboratory Results - last 24 hr 09/24/24 09/24/24 09/24/24 04:39 04:46 04:50 WBC 22.3 H RBC 5.04 Hgb 13.4 Hct 42.6 MCV 84.5 MCH 26.6 L MCHC 31.5 L RDW Std Deviation 42.2 RDW Coeff of Chelsie 13.6 Plt Count 483 H MPV 9.5 Immature Gran % (Auto) 1.000 H Neut % (Auto) 79.7 H Lymph % (Auto) 12.7 L Wallace % (Auto) 3.9 Eos % (Auto) 2.3 Baso % (Auto) 0.4 Absolute Neuts (auto) 17.7 H Absolute Lymphs (auto) 2.82 Nucleated RBC % 0 Sodium 136 Potassium 4.4 Chloride 97 L Carbon Dioxide 26.4 Anion Gap 13 BUN 8 Creatinine 0.58 L Estim Creat Clear Calc 141.04 Est GFR (MDRD) Non-Af 115 BUN/Creatinine Ratio 14.3 Glucose 155 H Calcium 10.8 Total Bilirubin 0.34 AST 27 ALT 29 Alkaline Phosphatase 121 H Total Protein 8.1 Albumin 4.3 Globulin 3.8 Albumin/Globulin Ratio 1.1 Serum , Qual NEGATIVE Urine Color Straw Urine Clarity Cloudy Urine pH 5.0 Ur Specific [place] 1.025 Urine Protein 30 H Urine Glucose (UA) Normal Urine Ketones Negative Urine Occult Blood 250 H Urine Nitrite Negative Urine Bilirubin Negative Urine Urobilinogen Normal Ur Leukocyte Esterase Negative Urine RBC 0 SEEN Urine WBC 0 SEEN Ur Squamous Epith Cells 0-5 SEEN Amorphous Sediment 1+ Urine Bacteria 0 SEEN Urine Mucus 0 SEEN Radiography Diagnostic Testing: Clinical Impression(s) from Imaging Studies Abdomen/Pelvis CT 09/24/24 05:00 IMPRESSION: 1. Unchanged hepatomegaly with hepatic steatosis. 2. Moderately enlarged, hypodense pancreas suggestive of moderate changes of acute pancreatitis, slightly improved. 3. Mild decrease in harpal-pancreatic inflammatory fat stranding and edema. 4. Significant decrease of perihepatic free fluid. 5. CBD stent is in good position. 6. Pneumobilia is noted, expected finding secondary to sphincterotomy. 7. Uncomplicated colonic diverticulosis. 8. Unchanged mild splenomegaly. 9. Interval appearance of diffuse thickening of the bladder which can be correlated with urinalysis to exclude mild cystitis. 10. Mild diffuse thickening of the stomach, probably gastritis. This is unchanged. 11. Resolution of right pleural effusion. 12. Minimal residual left pleural effusion. 13. Improved bibasilar pulmonary atelectasis. 14. Mild diffuse spondylosis. 15. Fat containing umbilical hernia without incarceration, unchanged. Reading Location: [place] [address] Discharge Plan Triage Chief Complaint: Flank Pain ED Provider: Conner Landry Dx/Rx/DC Orders Clinical Impression: Right sided abdominal pain, Leukocytosis, History of biliary duct stent placement, History of sphincterotomy of sphincter of Oddi Instructions: Abdominal Pain Prescriptions: No Action ipratropium bromide 42 mcg (0.06 %) spray,non-aerosol 1 spray INTRANASAL TID PRN PRN (Reason: allergy symptoms) fluoxetine 40 mg capsule 40 mg PO DAILY amlodipine 10 mg Tablet 10 mg PO DAILY 30 Days Qty: 30 2RF losartan 100 mg Tablet 100 mg PO DAILY 30 Days Qty: 30 2RF oxycodone 5 mg tablet 5 mg PO Q6H PRN (Reason: pain) 3 Days Qty: 12 0RF ondansetron 4 mg tablet,disintegrating 4 mg PO Q6H PRN (Reason: nausea and vomiting) 3 Days Qty: 12 0RF Primary Care Provider: Mary Escobar Referrals: Mary Escobar MD [Primary Care Provider] - 3-5 Days Arturo Sotelo DO [Med Staff - Active Staff] - 3-5 Days Print Language: Argentine Disposition Disposition: Home, Self Care
[2024-09-24] MEDS: Ondansetron 4 MG/2 ML Vial IV (04:48)
[2024-09-24] MEDS: Ketorolac 30 MG/ML Syringe IV (04:48)
[2024-09-24 04:49] LABS: Absolute Lymphocyte Count 2.82 X10^3/uL (0.83-4.51); Absolute Neutrophil Count 17.7 X10^3/uL (2.0-7.7); Basophil% 0.4 % (0-1); Eosinophil# 0.51 X10^3/uL; Eosinophils% 2.3 % (0-5); Hematocrit 42.6 % (37-47); Hemoglobin 13.4 g/dL (12.0-15.0); Lymphocyte # 2.82 X10^3/ul (0.83-4.51); Lymphocyte % 12.7 % (19-41); Mean Corp Hgb Conc 31.5 g/dL (32-36); Mean Corpuscular Hgb 26.6 pg (27.0-32.0); Mean Corpuscular Volume 84.5 fL (81-99); Mean Platelet Vol. 9.5 fl (6.2-12.0); Monocyte# 0.87 X10^3/uL; Monocyte% 3.9 % (0-10); NRBC Flagged by Analyzer 0 % (0-5); Neutrophil # 17.74 X10^3/uL (2.7-7.7); Neutrophil % 79.7 % (47-70); Platelet Count 483 K/mm3 (150-450); RBC Distribution Width CV 13.6 % (11.6-14.6); RBC Distribution Width SD 42.2 fl (35.1-43.9); Red Blood Count 5.04 M/mm3 (4.2-5.4); White Blood Count 22.3 K/mm3 (4.4-11.0)
--- NOTE | 2024-09-24 05:00 | CT_ITS ---
PROCEDURE: ABDOMEN/PELVIS W IV CONT ONLY 09/24/2024 REASON FOR EXAM: RIGHT ABD PAIN, N/V, LEUKOCYTOSIS, RECENT ERCP TECHNIQUE: Abdomen and pelvis CT with intravenous contrast. Coronal and Sagittal reconstruction series were provided. PATIENT PREPARATION: Per protocol ORAL CONTRAST TYPE: None. CONTRAST: VOLUME: 94 mL Isovue 370. One or more dose reduction techniques were used (e.g., Automated exposure control, adjustment of the mA and/or kV according to patient size, use of iterative reconstruction technique. RADIATION DOSE SUMMARY: CTDlvol: 16.8 mGy DLP: 900 mGycm COMPARISON: ERCP on 09/18/2024. MRCP on 09/17/2024. CT scan on 09/16/2024. FINDINGS: Unchanged hepatomegaly with hepatic steatosis. Moderately enlarged, hypodense pancreas suggestive of moderate changes of acute pancreatitis, slightly improved. Mild decrease in harpal-pancreatic inflammatory fat stranding and edema. Significant decrease of perihepatic free fluid. CBD stent is in good position. Pneumobilia is noted, expected finding secondary to sphincterotomy. Uncomplicated colonic diverticulosis. Unchanged mild splenomegaly. Interval appearance of diffuse thickening of the bladder which can be correlated with urinalysis to exclude mild cystitis. Mild diffuse thickening of the stomach, probably gastritis. This is unchanged. Resolution of right pleural effusion. Minimal residual left pleural effusion. Improved bibasilar pulmonary atelectasis. Mild diffuse spondylosis. Fat containing umbilical hernia without incarceration, unchanged. Normal bilateral adrenal glands. Normal size of the right kidney. There is no right renal mass. There are no right renal calculi. There is no right hydronephrosis. Normal visualized right ureter. Normal size of the left kidney. There is no left renal mass. There are no left renal calculi. There is no left hydronephrosis. Normal visualized left ureter. Normal small intestine. The appendix is visualized and appears normal. Normal abdominal aorta. Normal inferior vena cava. Normal retroperitoneum. There is no pelvic mass lesion or lymphadenopathy. There is no pelvic fluid. CT/Abdomen/Pelvis W IV Cont ONLY IMPRESSION: 1. Unchanged hepatomegaly with hepatic steatosis. 2. Moderately enlarged, hypodense pancreas suggestive of moderate changes of ac robbi pancreatitis, slightly improved. 3. Mild decrease in harpal-pancreatic inflammatory fat stranding and edema. 4. Significant decrease of perihepatic free fluid. 5. CBD stent is in good position. 6. Pneumobilia is noted, expected finding secondary to sphincterotomy. 7. Uncomplicated colonic diverticulosis. 8. Unchanged mild splenomegaly. 9. Interval appearance of diffuse thickening of the bladder which can be correl ated with urinalysis to exclude mild cystitis. 10. Mild diffuse thickening of the stomach, probably gastritis. This is unchan ged. 11. Resolution of right pleural effusion. 12. Minimal residual left pleural effusion. 13. Improved bibasilar pulmonary atelectasis. 14. Mild diffuse spondylosis. 15. Fat containing umbilical hernia without incarceration, unchanged. Reading [facility]
[2024-09-24 05:16] LABS: Bacteria 0 SEEN /hpf (None Seen); Mucous, Urine 0 SEEN /hpf (<or=2+); Red Blood Cells-Urine 0 SEEN /hpf (0-5); White Blood Cells 0 SEEN /hpf (0-5)
[2024-09-24 05:26] LABS: Internal QC Validated? YES +Cl - CLEAR BKGD; Pregnancy, Serum, hCG Quali. NEGATIVE Negative
[2024-09-24 05:29] LABS: Color, Urine Straw (Yellow); Glucose, Dipstick Normal (Normal); Ketone-Dipstick Negative (Negative); Leukocyte Esterase-Dipstick Negative /ul (Negative); Nitrite-Dipstick Negative (Negative); Occult Blood-Urine 250 /ul (Negative); Protein-Dipstick 30 mg/dl (Negative); Specific Gravity, Urine 1.025 (1.002-1.030); Urine Bilirubin Dipstick Negative (Negative); Urine Clarity Cloudy (Clear); Urine Urobilinogen Normal (Normal)
[2024-09-24 05:44] LABS: ALB/GLOB Ratio 1.1 RATIO (0.9-2.4); AST(SGOT) 27 U/L (<=31); Alanine Aminotransfer ALT/SGPT 29 U/L (<=34); Albumin, Serum 4.3 g/dL (3.5-5.0); Alkaline Phosphatase 121 U/L (35-104); Anion Gap 13 (5-15); BUN 8 mg/dL (4-19); BUN/Creat Ratio 14.3 RATIO (10-20); Calcium,Total 10.8 mg/dL (7.6-11.0); Carbon Dioxide 26.4 mmol/L (21.0-32.0); Chloride 97 mmol/L (98-108); Creatinine, Serum 0.58 mg/dL (0.70-1.20); EST Glomerular Filtration Rate 115 (>60); Estimated Creatinine Clearance 141.04 ml/min (50-250); Globulin 3.8 g/dL (2.2-4.2); Glucose 155 mg/dL (70-99); Potassium 4.4 mmol/L (3.3-5.1); Protein, Total 8.1 g/dL (5.9-8.4); Sodium Level 136 mmol/L (133-145); Total Bilirubin 0.34 mg/dL (0.00-1.30)
[2024-09-24 05:58] VITALS: BP 131/84; PULSE 76; RESP 16; TEMP 36.9; O2SAT 96
[2024-09-24 07:14] LABS: Amorphous Sediment 1+; Squamous Epithelial Cells - UA 0-5 SEEN /hpf (5-10)
[2024-09-24] MEDS: Cefepime HCl 2 GM in 0.9% Normal Saline (100mL MB+) 100 ML IV (07:56)
[2024-09-24 08:00] VITALS: BP 131/84; BP 148/100; PULSE 65; PULSE 76; RESP 16; TEMP 36.8; TEMP 36.9; O2SAT 96; O2SAT 97
== END 2024-09-24 09:00 | disposition home or self-care (01) ==
PROVIDERS: Emergency Provider Emergency Medicine; PCP Family Medicine; Visit Provider Emergency Medicine
DX: R10.9 Unspecified abdominal pain (principal); R11.2 Nausea with vomiting, unspecified; D72.829 Elevated white blood cell count, unspecified; I10 Essential (primary) hypertension; N32.89 Other specified disorders of bladder; J90 Pleural effusion, not elsewhere classified; F41.9 Anxiety disorder, unspecified; Z79.899 Other long term (current) drug therapy; Z90.49 Acquired absence of other specified parts of digestive tract; Z87.891 Personal history of nicotine dependence
CPT/HCPCS: 74177; 80053; 81001; 84703; 85025; 96365; 96375; 99285; Q9967; A4216; J2405

== ENCOUNTER 2024-09-25 04:05 | Inpatient (IN) | payer BC, SELFPAY ==
[2024-09-25] VITALS (8 sets, daily range): BP systolic 130–160; BP diastolic 60–98; PULSE 79–100; RESP 12–18; TEMP 36.6–37.2; O2SAT 93–99; BMI 34.7
[2024-09-25 04:47] LABS: Absolute Lymphocyte Count 1.95 X10^3/uL (0.83-4.51); Absolute Neutrophil Count 21.4 X10^3/uL (2.0-7.7); Basophil% 0.4 % (0-1); Eosinophil# 0.45 X10^3/uL; Eosinophils% 1.8 % (0-5); Hematocrit 40.5 % (37-47); Lymphocyte # 1.95 X10^3/ul (0.83-4.51); Lymphocyte % 7.7 % (19-41); Mean Corp Hgb Conc 32.1 g/dL (32-36); Mean Corpuscular Hgb 26.7 pg (27.0-32.0); Mean Corpuscular Volume 83.2 fL (81-99); Mean Platelet Vol. 9.7 fl (6.2-12.0); Monocyte# 1.21 X10^3/uL; Monocyte% 4.8 % (0-10); NRBC Flagged by Analyzer 0 % (0-5); Neutrophil # 21.37 X10^3/uL (2.7-7.7); Neutrophil % 84.4 % (47-70); POSITIVE DIFFERENTIAL YES; Platelet Count 435 K/mm3 (150-450); RBC Distribution Width CV 13.6 % (11.6-14.6); RBC Distribution Width SD 41.6 fl (35.1-43.9); Red Blood Count 4.87 M/mm3 (4.2-5.4); White Blood Count 25.3 K/mm3 (4.4-11.0)
[2024-09-25 04:50] LABS: Mucous, Urine 0 SEEN /hpf (<or=2+); Red Blood Cells-Urine 0 SEEN /hpf (0-5); Squamous Epithelial Cells - UA 0 SEEN /hpf (5-10); White Blood Cells 0 SEEN /hpf (0-5)
[2024-09-25 04:51] LABS: Color, Urine Yellow (Yellow); Glucose, Dipstick 50 mg/dl (Normal); Ketone-Dipstick Negative (Negative); Leukocyte Esterase-Dipstick Negative /ul (Negative); Nitrite-Dipstick Negative (Negative); Occult Blood-Urine Negative /ul (Negative); Protein-Dipstick 30 mg/dl (Negative); Urine Bilirubin Dipstick Negative (Negative); Urine Clarity Clear (Clear); Urine Urobilinogen Normal (Normal); Urine pH 6.5 (5.0 - 8.0)
[2024-09-25] MEDS: 0.9% Normal Saline (1000mL) 1,000 ML 999 ML IV (04:54)
[2024-09-25] MEDS: HYDROmorphone 1 MG/ML Syringe IV ×7 (04:55→22:28)
[2024-09-25] MEDS: Ondansetron 4 MG/2 ML Vial IV ×2 (04:55→17:09)
[2024-09-25 05:03] LABS: Differential Indicated SCAN CRITERIA MET
[2024-09-25 05:15] LABS: Lipase 287 U/L (13-75)
[2024-09-25 05:17] LABS: Lactic Acid 1.3 mmol/L (0.0-2.0)
[2024-09-25 05:19] LABS: AST(SGOT) 32 U/L (<=31); Alanine Aminotransfer ALT/SGPT 23 U/L (<=34); Alkaline Phosphatase 116 U/L (35-104); Anion Gap 13 (5-15); BUN 7 mg/dL (4-19); BUN/Creat Ratio 11.6 RATIO (10-20); Bilirubin, Direct < 0.08 mg/dL (0.00-0.30); Calcium,Total 10.4 mg/dL (7.6-11.0); Carbon Dioxide 22.9 mmol/L (21.0-32.0); Chloride 97 mmol/L (98-108); Creatinine, Serum 0.64 mg/dL (0.70-1.20); EST Glomerular Filtration Rate 112 (>60); Globulin 3.7 g/dL (2.2-4.2); Glucose 209 mg/dL (70-99); Potassium 4.6 mmol/L (3.3-5.1); Protein, Total 7.7 g/dL (5.9-8.4); Sodium Level 133 mmol/L (133-145); Total Bilirubin 0.38 mg/dL (0.00-1.30)
[2024-09-25 05:25] LABS: Bacteria RARE /hpf (None Seen)
[2024-09-25 05:34] LABS: Differential Comment SCANNED
[2024-09-25 05:56] LABS: Procalcitonin 0.09 ng/mL (<=0.10)
--- NOTE | 2024-09-25 06:19 | EX.ED.DYSGE1 ---
HPI <Dr. Ashu Garcia DO - Last Filed: 09/26/24 23:07> History of Present Illness Chief Complaint: Abd Pain Informant: patient Narrative Narrative: Patient is a 44-year-old female who was recently in the hospital secondary to biliary duct stones and underwent ERCP and sphincterotomy by GI. She was discharged home and was evaluated in the ER approximately 24 hours ago secondary to midepigastric abdominal pain. At that time she underwent blood work and a CT scan. Patient's white count was elevated and CT scan showed changes along the pancreas that was consistent with postoperative changes. At that time the case was discussed with the mica spreader and he felt that the CT findings were consistent with postoperative timeframe and that there is no need for readmission especially as the patient's vitals were stable and her pain was improved. Patient states she followed with her family doctor who placed her on antibiotics and oxycodone. She states that despite taking these she has been having persistent midepigastric abdominal pain and therefore comes back in for reevaluation [facility] <Dr. Ashu Garcia DO - Last Filed: 09/26/24 23:07> [facility] Medical History Hypertension Pancreatitis Hypertension Anxiety Home Medications ?Medication ?Instructions ?Recorded ?Last Taken ?Type fluoxetine 40 mg capsule 40 mg PO DAILY mental health 09/12/24 Unknown History ipratropium bromide 42 mcg (0.06 1 spray intranasal TID PRN PRN 09/12/24 Unknown History %) nasal spray allergy symptoms amlodipine 10 mg tablet 10 mg PO DAILY 30 days #30 tabs 09/19/24 Unknown Rx losartan 100 mg tablet 100 mg PO DAILY 30 days #30 tabs 09/19/24 Unknown Rx oxycodone 5 mg tablet 5 mg PO Q6H PRN pain 3 days #12 09/19/24 Unknown Rx tabs doxycycline hyclate 100 mg tablet 100 mg PO BID 09/25/24 Unknown History prochlorperazine maleate 5 mg 5 mg PO BID 09/25/24 Unknown History tablet (Compazine) Allergy/AdvReac Type Severity Reaction Status Date / Time No Known Allergies Allergy Verified 09/25/24 04:08 Family History Other Hypertension Surgical History S/P ERCP Hx of cholecystectomy Social History Smoking Status: Former smoker alcohol intake: current alcohol intake frequency: 0-2 drinks per day substance use type: does not use ROS <Dr. Ashu Garcia DO - Last Filed: 09/26/24 23:07> ROS ED Constitutional Constitutional ED: Denies chills or fever(s) Eyes Eyes: Denies change in vision ENT ENT ED: Denies sore throat Cardiovascular Cardiovascular: Denies chest pain Respiratory/Chest Respiratory/Chest: Denies cough or dyspnea Gastrointestinal Gastrointestinal: Reports abdominal pain and nausea; Denies constipation, diarrhea or vomiting Genitourinary Genitourinary ED: Denies dysuria or hematuria Musculoskeletal Musculoskeletal: Denies back pain or myalgias Integumentary Denies rash Neurologic Neurologic: Denies headache(s) Hematologic/Lymphatic Hematologic/Lymphatic: Denies easy bleeding or easy bruising EXAM <Dr. Ashu Garcia, DO - Last Filed: 09/26/24 23:07> Physical Exam Const Vital Signs: 09/25/24 04:05 09/25/24 06:05 09/25/24 08:00 Temperature 98 F Temperature Source Oral Pulse Rate 86 80 Respiratory Rate 16 16 16 Blood Pressure 155/89 H 138/62 H Blood Pressure Mean 111 87 Pulse Ox 98 98 09/25/24 09:34 Temperature 98 F Temperature Source Pulse Rate 80 Respiratory Rate 16 Blood Pressure 142/82 H Blood Pressure Mean 102 Pulse Ox 99 Positive well nourished and well developed General Appearance ED: well developed; Negative for pallor HEENT HEENT Narrative: No tongue or lip swelling no oral lesions no airway edema or compromise No secondary findings in the posterior pharynx to suggest infection Eyes PERRL and EOMs intact bilaterally General Eye ED: Negative for scleral icterus Neck supple Neck Narrative: No nuchal rigidity or meningeal signs noted Resp normal respiratory effort and clear to auscultation bilaterally Cardio regular rate and regular rhythm Rate: other Other Details: Heart is regular rate and rhythm Radial and carotid pulses are equal and symmetric GI non-tender, non-distended and no masses GI Narrative: Abdomen is soft and nondistended with hypoactive bowel sounds. Patient complains of abdominal pain in the midepigastric region but with distraction and palpation there is no obvious pain. There is no voluntary guarding or rigidity or peritoneal signs. No pulsatile mass. No fluid wave noted. Auscultation: hypoactive bowel sounds Palpation: soft Extremity normal to inspection Neuro oriented x3, CN's II-XII intact bilaterally and no sensory deficits noted Sensorium / Orientation: alert Motor Exam: strength 5/5 throughout Psych mental status grossly normal Skin no rashes or lesions noted General Skin Exam: Negative for jaundice or pallor <Dr. Chalo Meza, DO - Last Filed: 09/25/24 10:02> Physical Exam Const Vital Signs: 09/25/24 04:05 09/25/24 06:05 09/25/24 08:00 Temperature 98 F Temperature Source Oral Pulse Rate 86 80 Respiratory Rate 16 16 16 Blood Pressure 155/89 H 138/62 H Blood Pressure Mean 111 87 Pulse Ox 98 98 09/25/24 09:34 Temperature 98 F Temperature Source Pulse Rate 80 Respiratory Rate 16 Blood Pressure 142/82 H Blood Pressure Mean 102 Pulse Ox 99 MDM <Dr. Ashu Garcia, DO - Last Filed: 09/26/24 23:07> [facility] Narrative Medical decision making narrative: Care of patient turned over to me by Dr. Garcia this morning. Patient presents with abdominal pain after being seen last evening as well. She had CT imaging last night. She had basic labs today. She was did be discharged at 9 AM as she was medicated with narcotics and she was driving herself. Prior to discharge nurses tell me that her pain is returned and she continues to have significant upper abdomen pain requesting more pain medication. CT scan of the M pelvis did show some evidence of acute pancreatitis last evening. She had had prior biliary stent placement. Her lipase is elevated at 287. Will discuss case with hospitalist to evaluate patient for admission for intractable abdominal pain and pancreatitis Patient presented to the ER hypertensive otherwise with stable vitals. She was seen just 24 hours ago and had blood work and a CT scan. Based on her stable vitals and abdominal examination I do not feel there is need for repeat CT scan at this time the basic blood work will be obtained. Patient's white count was elevated at 25.3 roughly 24 hours ago it was approximately 23. However her lactic acid is normal and her procalcitonin is normal and the fact she is afebrile goes against an infectious process as the cause and this is most likely stress response. The patient's liver enzymes have improved from the previous day indicating that there is no blockage of the stent which correlates with the CT scan from 24 hours ago. Her lipase is elevated slightly at 287 but this is most likely postoperative as chart review reveals that her previous lipase was almost 1600 when she had acute pancreatitis. After 1 dose of pain medication she reported resolution of the pain. Therefore this time she has the persistent white count but as she is afebrile her lactic acid and procalcitonin are normal and therefore I have low concern for infection and do not feel the need to repeat CT scan. On reevaluation abdomen is soft and nonsurgical and therefore as her vitals are stable her abdomen is soft and nonsurgical and her laboratory studies do not show any significant differences from the previous day I feel she can follow-up with her GI doctor on an outpatient basis Lab Data Labs: Laboratory Results - last 24 hr 09/25/24 09/25/24 09/25/24 04:17 04:43 04:46 WBC 25.3 H RBC 4.87 Hgb 13.0 Hct 40.5 MCV 83.2 MCH 26.7 L MCHC 32.1 RDW Std Deviation 41.6 RDW Coeff of Chelsie 13.6 Plt Count 435 MPV 9.7 Immature Gran % (Auto) 0.900 Neut % (Auto) 84.4 H Lymph % (Auto) 7.7 L Cottle % (Auto) 4.8 Eos % (Auto) 1.8 Baso % (Auto) 0.4 Absolute Neuts (auto) 21.4 H Absolute Lymphs (auto) 1.95 Nucleated RBC % 0 Differential Comment SCANNED Diff Path Review [employer]IEF Sodium 133 Potassium 4.6 Chloride 97 L Carbon Dioxide 22.9 Anion Gap 13 BUN 7 Creatinine 0.64 L Estim Creat Clear Calc 123.00 Est GFR (MDRD) Non-Af 112 BUN/Creatinine Ratio 11.6 Glucose 209 H Lactic Acid 1.3 Calcium 10.4 Total Bilirubin 0.38 Direct Bilirubin < 0.08 AST 32 ALT 23 Alkaline Phosphatase 116 H Total Protein 7.7 Albumin 4.0 Globulin 3.7 Lipase 287 H Procalcitonin 0.09 Urine Color Yellow Urine Clarity Clear Urine pH 6.5 Ur Specific [place] 1.020 Urine Protein 30 H Urine Glucose (UA) 50 H Urine Ketones Negative Urine Occult Blood Negative Urine Nitrite Negative Urine Bilirubin Negative Urine Urobilinogen Normal Ur Leukocyte Esterase Negative Urine RBC 0 SEEN Urine WBC 0 SEEN Ur Squamous Epith Cells 0 SEEN Urine Bacteria RARE Urine Mucus 0 SEEN <Dr. Chalo Meza, DO - Last Filed: 09/25/24 10:02> [facility] Narrative Medical decision making narrative: Care of patient turned over to me by Dr. Garcia this morning. Patient presents with abdominal pain after being seen last evening as well. She had CT imaging last night. She had basic labs today. She was did be discharged at 9 AM as she was medicated with narcotics and she was driving herself. Prior to discharge nurses tell me that her pain is returned and she continues to have significant upper abdomen pain requesting more pain medication. CT scan of the M pelvis did show some evidence of acute pancreatitis last evening. She had had prior biliary stent placement. Her lipase is elevated at 287. Will discuss case with hospitalist to evaluate patient for admission for intractable abdominal pain and pancreatitis Lab Data Attestation: I reviewed the patient's lab results. Labs: Laboratory Results - last 24 hr 09/25/24 09/25/24 09/25/24 04:17 04:43 04:46 WBC 25.3 H RBC 4.87 Hgb 13.0 Hct 40.5 MCV 83.2 MCH 26.7 L MCHC 32.1 RDW Std Deviation 41.6 RDW Coeff of Chelsie 13.6 Plt Count 435 MPV 9.7 Immature Gran % (Auto) 0.900 Neut % (Auto) 84.4 H Lymph % (Auto) 7.7 L Cottle % (Auto) 4.8 Eos % (Auto) 1.8 Baso % (Auto) 0.4 Absolute Neuts (auto) 21.4 H Absolute Lymphs (auto) 1.95 Nucleated RBC % 0 Differential Comment SCANNED Diff Path Review [employer] Sodium 133 Potassium 4.6 Chloride 97 L Carbon Dioxide 22.9 Anion Gap 13 BUN 7 Creatinine 0.64 L Estim Creat Clear Calc 123.00 Est GFR (MDRD) Non-Af 112 BUN/Creatinine Ratio 11.6 Glucose 209 H Lactic Acid 1.3 Calcium 10.4 Total Bilirubin 0.38 Direct Bilirubin < 0.08 AST 32 ALT 23 Alkaline Phosphatase 116 H Total Protein 7.7 Albumin 4.0 Globulin 3.7 Lipase 287 H Procalcitonin 0.09 Urine Color Yellow Urine Clarity Clear Urine pH 6.5 Ur Specific [place] 1.020 Urine Protein 30 H Urine Glucose (UA) 50 H Urine Ketones Negative Urine Occult Blood Negative Urine Nitrite Negative Urine Bilirubin Negative Urine Urobilinogen Normal Ur Leukocyte Esterase Negative Urine RBC 0 SEEN Urine WBC 0 SEEN Ur Squamous Epith Cells 0 SEEN Urine Bacteria RARE Urine Mucus 0 SEEN Discharge Plan Dx/Rx/DC Orders Clinical Impression: Postoperative abdominal pain, Leukocytosis, Intractable pain, Pancreatitis Disposition Disposition: Acute Care Hospital [facility] Discharge Date/Time: 09/25/24 11:51
--- NOTE | 2024-09-25 09:55 | PCM.HP.STD ---
HPI - General General Date of Admission: 09/25/24 Date of Service: 09/25/24 Chief Complaint: Abdominal pain HPI Narrative CASIMIRO PUTNAM, is a 44 F who presented to the emergency department [facility] on 09/25/2024 with chief complaint of abdominal pain that was intractable. Patient was initially seen on 09/24/2024 and was discharged at 9 AM. She was medicated with narcotics and drove herself. The plan was to discharge her back home however prior to discharge nursing reported that show he was in increased pain and requesting more pain medication. CT of the abdomen and pelvis did show some evidence of acute pancreatitis. Patient was recently admitted from 09/12/2024 through 09/19/2024 at which time she was found to have choledocholithiasis however her labs did not support these findings during her presentation. Stent was placed and she was discharged home and stated she was feeling better until Tuesday evening when her pain returned. It slowly worsened over time which led to her initial and then subsequent ED visits. She has had some mild nausea and her abdominal pain is similar to her previous pancreatitis. She does have previous pancreatitis diagnosis remotely at which time she was admitted at [facility]. She had COVID at that time as well. She did receive her primary care physician on the day of presentation and they did put her on some doxycycline for her abdominal pain. She was unclear as what the diagnosis was. When her pain became worse she decided to be evaluated. Vital signs on presentation showed temperature of 98, heart rate 86, respiratory rate 16, blood pressure was 155/89 and pulse ox was 98% on room air. CBC on presentation showed a leukocytosis with a white count of 25.3 and a left shift with an 84.4% neutrophilia. Chemistry panel was overtly unremarkable other than hyperglycemia with a blood sugar of 209. Lactic acid was normal at 1.8. Liver functions were unremarkable. Lipase was 287. Procalcitonin was 0.09. She did have a CT of the abdomen pelvis on 09/24/2024 which showed unchanged hepatomegaly with hepatic steatosis, moderately enlarged pancreas suggestive of acute pancreatitis that was improved from previous likely, mild decrease in peripancreatic inflammation and fat stranding with edema, significant decrease in perihepatic fluid, CBD stent in good position, pneumobilia from previous enterotomy, uncomplicated colonic diverticulosis and mild splenomegaly with thickening of the bladder unchanged from previous which is consistent with gastritis and minimal residual left pleural effusion with resolved right pleural effusion. She was treated with pain medication, IV fluids and antiemetics her pain was persistent show she will be admitted in the hospital. [facility] Medical History Pancreatitis Hypertension Anxiety Home Medications ?Medication ?Instructions ?Recorded ?Last Taken ?Type fluoxetine 40 mg capsule 40 mg PO DAILY mental health 09/12/24 Unknown History ipratropium bromide 42 mcg (0.06 1 spray intranasal TID PRN PRN 09/12/24 Unknown History %) nasal spray allergy symptoms amlodipine 10 mg tablet 10 mg PO DAILY 30 days #30 tabs 09/19/24 Unknown Rx losartan 100 mg tablet 100 mg PO DAILY 30 days #30 tabs 09/19/24 Unknown Rx oxycodone 5 mg tablet 5 mg PO Q6H PRN pain 3 days #12 09/19/24 Unknown Rx tabs doxycycline hyclate 100 mg tablet 100 mg PO BID 09/25/24 Unknown History prochlorperazine maleate 5 mg 5 mg PO BID 09/25/24 Unknown History tablet (Compazine) Allergy/AdvReac Type Severity Reaction Status Date / Time No Known Allergies Allergy Verified 09/25/24 04:08 Family History (Updated 09/25/24 @ 18:[address] Charlotte Gibbs DO) Other Hypertension Surgical History S/P ERCP Hx of cholecystectomy Social History Smoking Status: Former smoker alcohol intake: current alcohol intake frequency: 0-2 drinks per day substance use type: does not use ROS Constitutional Constitutional: Denies anorexia, change in weight, chills, fatigue, fever(s), malaise, night sweats, weakness or other Eyes Eyes: Denies blurry vision, change in eye color, change in vision, discharge from eye(s), double vision, erythema, eye pain, loss of vision or other ENT HEENT: Denies abnormal hearing, dysphagia, ear pain, epistaxis, headache(s), hearing loss, nasal congestion, nasal discharge, post nasal drip, sinus pressure, sore throat or other Cardiovascular Cardiovascular: Denies chest pain, claudication, dyspnea on exertion, edema, lightheadedness, orthopnea, palpitations, paroxysmal nocturnal dyspnea, rapid heart rate, syncope or other Respiratory/Chest Respiratory/Chest: Denies cough, dyspnea, excessive phlegm production, hemoptysis, productive cough, shortness of breath at rest, shortness of breath with exertion, wheezing or other Gastrointestinal Gastrointestinal: Reports abdominal pain, nausea and other Details: Decreased flatus Genitourinary Genitourinary: Denies burning urination, difficulty urinating, dysuria, hematuria, nocturia, urinary frequency, urinary hesitancy, urinary incontinence, urinary urgency or other Musculoskeletal Musculoskeletal: Reports back pain; Denies arthralgias, joint pain, joint stiffness, joint swelling, myalgias, neck pain or other Neurologic Neurologic: Denies abnormal gait, abnormal speech, confusion, disequilibrium, dizziness, focal weakness, headache(s), numbness, paresthesias, seizure-like activity, seizures, syncope, tingling, tremor(s) or other Psychiatric Psychiatric: Reports depression; Denies anxiety, homicidal ideation, suicidal ideation or other Endocrine Endocrinology: Denies change in body appearance, cold intolerance, excessive sweating, heat intolerance, polydipsia, polyuria or other Hematologic/Lymphatic Hematologic/Lymphatic: Denies anemia, easy bleeding, easy bruising, lymphadenopathy or other Allergic/Immunologic Allergic/Immunologic: Denies rhinitis, hives, eczemia, asthma or other Vital Signs Vital Signs Vital Signs: 09/25/24 04:05 09/25/24 06:05 09/25/24 08:00 Temperature 98 F Temperature Source Oral Pulse Rate 86 80 Respiratory Rate 16 16 16 Blood Pressure 155/89 H 138/62 H Blood Pressure Mean 111 87 Pulse Ox 98 98 09/25/24 09:34 Temperature 98 F Temperature Source Pulse Rate 80 Respiratory Rate 16 Blood Pressure 142/82 H Blood Pressure Mean 102 Pulse Ox 99 Weight Weight: 91.6 kg Body Mass Index (BMI) 34.7 Physical Exam Const alert, oriented x3, no apparent distress and well nourished; Negative for average body habitus or healthy appearing Constitutional Narrative: Obese, middle-aged, white female, sitting up in a wheelchair, appears comfortable at this time, does not look toxic General Appearance: cooperative HEENT normocephalic, head/scalp atraumatic, hearing grossly normal bilaterally and moist oral mucous membranes HEENT Narrative: Mallampati 3-4, no thrush Resp normal respiratory effort, no retractions, no use of accessory muscles and clear to auscultation bilaterally Auscultation: Negative for rales, rhonchi or wheezes Cardio regular rate, regular rhythm, S1 normal heart sound, S2 normal heart sound, no murmurs, no rub, no gallops and no clicks GI soft to palpation GI Narrative: Tenderness to abdomen and epigastric area and left upper quadrant, bowel sounds are slightly hypoactive, abdomen is nondistended, no flank ecchymosis noted Extremity no clubbing, cyanosis or edema Extremity Narrative: Pedal and radial pulses are 2+ Neuro oriented x3, moves all extremities and no focal motor deficits Speech: speech normal Psych affect normal Psych Narrative: Very pleasant, interacts appropriately Results Lab / Micro Data 09/25/24 04:17 09/25/24 04:17 Labs: Laboratory Results - last 24 hr 09/25/24 04:17: WBC 25.3 H, RBC 4.87, Hgb 13.0, Hct 40.5, MCV 83.2, MCH 26.7 L, MCHC 32.1, RDW Std Deviation 41.6, RDW Coeff of Chelsie 13.6, Plt Count 435, MPV 9.7, Immature Gran % (Auto) 0.900, Neut % (Auto) 84.4 H, Lymph % (Auto) 7.7 L, Kay % (Auto) 4.8, Eos % (Auto) 1.8, Baso % (Auto) 0.4, Absolute Neuts (auto) 21.4 H, Absolute Lymphs (auto) 1.95, Nucleated RBC % 0, Differential Comment SCANNED, Diff Path Review [employer]NAGER, Sodium 133, Potassium 4.6, Chloride 97 L, Carbon Dioxide 22.9, Anion Gap 13, BUN 7, Creatinine 0.64 L, Estim Creat Clear Calc 123.00, Est GFR (MDRD) Non-Af 112, BUN/Creatinine Ratio 11.6, Glucose 209 H, Calcium 10.4, Total Bilirubin 0.38, Direct Bilirubin < 0.08, AST 32, ALT 23, Alkaline Phosphatase 116 H, Total Protein 7.7, Albumin 4.0, Globulin 3.7, Lipase 287 H, Procalcitonin 0.09 09/25/24 04:43: Lactic Acid 1.3 09/25/24 04:46: Urine Color Yellow, Urine Clarity Clear, Urine pH 6.5, Ur Specific [place] 1.020, Urine Protein 30 H, Urine Glucose (UA) 50 H, Urine Ketones Negative, Urine Occult Blood Negative, Urine Nitrite Negative, Urine Bilirubin Negative, Urine Urobilinogen Normal, Ur Leukocyte Esterase Negative, Urine RBC 0 SEEN, Urine WBC 0 SEEN, Ur Squamous Epith Cells 0 SEEN, Urine Bacteria RARE, Urine Mucus 0 SEEN Assessment & Plan Assessment/Plan (1) Pancreatitis: (2) Leukocytosis: (3) Intractable pain: PLAN: Plan Recurrent acute pancreatitis -N.p.o. with sips and chips sparingly -As needed pain medication both IV and p.o. -Aggressive IV fluids with 200 cc an hour of normal saline -Antiemetics as needed -Choledocholithiasis was found at her last hospitalization and biliary stent was placed with stone removal -With recent stent placement and leukocytosis will start on Zosyn Procalcitonin is not markedly elevated- -Imaging is consistent with acute pancreatitis again -GI consultation is pending Leukocytosis -Likely reactive but with recent stent placement will place on Zosyn -No signs of infection -Will trend with repeat CBC in a.m. Hypertension -Continue home losartan -Continue home amlodipine -As needed hydralazine for systolic pressure greater than 150 Hepatomegaly -Suspect nonalcoholic fatty liver disease -Recommend weight loss -Outpatient GI follow-up Anxiety/depression -Continue home fluoxetine Obesity -BMI 34.7 -Recommend weight loss -Complicates treatment, prognosis, outcomes DVT prophylaxis -Lovenox subcu daily CODE STATUS -Full code Charges/Coding Visit Charges Inpatient E&M: 80838 Init Hosp L2
[2024-09-25 12:38] LABS: Bedside Glucose 136 mg/dL (74-106)
[2024-09-25] MEDS: Losartan Potassium 100 MG Tablet PO (12:44)
[2024-09-25] MEDS: amLODIPine 10 MG Tablet PO (12:44)
[2024-09-25] MEDS: Enoxaparin 40 MG/0.4 ML Syringe SC (12:44)
[2024-09-25] MEDS: Fluoxetine HCl 40 MG CAPSULE PO (12:44)
[2024-09-25] MEDS: 0.9% Saline Lock 10 ML Syringe IV ×3 (12:45→22:30)
[2024-09-25] MEDS: Lactated Ringers 1,000 ML 200 ML IV ×3 (12:45→22:27)
[2024-09-25] MEDS: oxyCODONE 5 MG Tablet 10 MG PO ×2 (13:57→20:06)
[2024-09-25 17:35] LABS: Bedside Glucose 135 mg/dL (74-106)
[2024-09-25] MEDS: Piperacil/Tazobactam 3.375 GM in 0.9% Normal Saline (50mL MB+) 50 ML IV (18:05)
[2024-09-26 00:42] LABS: Bedside Glucose 117 mg/dL (74-106)
[2024-09-26 02:12] VITALS: BP 144/83; PULSE 90; RESP 16; TEMP 37; O2SAT 96
[2024-09-26] MEDS: oxyCODONE 5 MG Tablet 10 MG PO ×3 (02:13→15:27)
[2024-09-26] MEDS: Lactated Ringers 1,000 ML 200 ML IV (03:29)
[2024-09-26] MEDS: HYDROmorphone 1 MG/ML Syringe IV ×5 (04:25→21:09)
[2024-09-26] MEDS: 0.9% Saline Lock 10 ML Syringe IV ×2 (04:26→21:09)
[2024-09-26 05:45] VITALS: BMI 35.4
[2024-09-26 05:54] LABS: Absolute Lymphocyte Count 1.98 X10^3/uL (0.83-4.51); Absolute Neutrophil Count 18.7 X10^3/uL (2.0-7.7); Basophil# 0.05 X10^3/uL; Basophil% 0.2 % (0-1); Eosinophil# 0.19 X10^3/uL; Eosinophils% 0.8 % (0-5); Hematocrit 34.5 % (37-47); Hemoglobin 10.7 g/dL (12.0-15.0); Lymphocyte # 1.98 X10^3/ul (0.83-4.51); Lymphocyte % 8.8 % (19-41); Mean Corpuscular Hgb 26.4 pg (27.0-32.0); Mean Platelet Vol. 9.9 fl (6.2-12.0); Monocyte# 1.46 X10^3/uL; Monocyte% 6.5 % (0-10); NRBC Flagged by Analyzer 0 % (0-5); Neutrophil # 18.74 X10^3/uL (2.7-7.7); Neutrophil % 82.9 % (47-70); Platelet Count 349 K/mm3 (150-450); RBC Distribution Width CV 14.2 % (11.6-14.6); RBC Distribution Width SD 44.1 fl (35.1-43.9); Red Blood Count 4.06 M/mm3 (4.2-5.4); White Blood Count 22.6 K/mm3 (4.4-11.0)
[2024-09-26 06:22] LABS: Hemoglobin A1c 5.5 % (<=5.6)
[2024-09-26] MEDS: Piperacil/Tazobactam 3.375 GM in 0.9% Normal Saline (50mL MB+) 50 ML IV ×3 (06:32→21:38)
[2024-09-26 06:53] LABS: ALB/GLOB Ratio 1.1 RATIO (0.9-2.4); AST(SGOT) 18 U/L (<=31); Alanine Aminotransfer ALT/SGPT 17 U/L (<=34); Albumin, Serum 3.3 g/dL (3.5-5.0); Alkaline Phosphatase 101 U/L (35-104); Anion Gap 9 (5-15); BUN 9 mg/dL (4-19); BUN/Creat Ratio 13.9 RATIO (10-20); Carbon Dioxide 24.8 mmol/L (21.0-32.0); Chloride 97 mmol/L (98-108); Creatinine, Serum 0.67 mg/dL (0.70-1.20); EST Glomerular Filtration Rate 111 (>60); Estimated Creatinine Clearance 119.32 ml/min (50-250); Globulin 3.1 g/dL (2.2-4.2); Glucose 130 mg/dL (70-99); Magnesium 1.9 mg/dL (1.5-2.2); Phosphorus 3.4 mg/dL (2.7-4.5); Potassium 4.5 mmol/L (3.3-5.1); Protein, Total 6.4 g/dL (5.9-8.4); Sodium Level 131 mmol/L (133-145)
--- NOTE | 2024-09-26 07:06 | PCM.PN.HOSP ---
Reason for Visit Reason for Visit: Abdominal pain Subjective Subjective Patient reports that she is feeling a little bit better today. Still having pain but seems to be less intense. Still requiring pain medicine for pain management. Pain seems to be less intense. Still awaiting GI input. We did discuss that some of her autoimmune studies were negative. Objective Data Objective Data Vital Signs: Vital Signs Temp Pulse Resp BP Pulse Ox O2 Del Method 98.6 F 90 16 144/83 H 96 Room Air 09/26/24 02:12 09/26/24 02:12 09/26/24 02:12 09/26/24 02:12 09/26/24 02:12 09/26/24 02:12 Oxygen Delivery Method Room Air Weight: 94.3 kg Body Mass Index (BMI) 35.4 Intake & Output: Intake and Output for Last 24 Hours 09/24/24 09/25/24 09/26/24 23:59 23:59 23:59 Intake Total 3130 / 3130 1010 / 1010 Balance 3130 / 3130 1010 / 1010 Lab / Micro Data 09/26/24 05:18 09/26/24 05:18 Labs: Laboratory Results - last 24 hr 09/25/24 12:20: POC Glucose 136 H 09/25/24 17:18: POC Glucose 135 H 09/26/24 00:23: POC Glucose 117 H 09/26/24 05:18: WBC 22.6 H, RBC 4.06 L, Hgb 10.7 L, Hct 34.5 L, MCV 85.0, MCH 26.4 L, MCHC 31.0 L, RDW Std Deviation 44.1 H, RDW Coeff of Chelsie 14.2, Plt Count 349, MPV 9.9, Immature Gran % (Auto) 0.800, Neut % (Auto) 82.9 H, Lymph % (Auto) 8.8 L, [place] % (Auto) 6.5, Eos % (Auto) 0.8, Baso % (Auto) 0.2, Absolute Neuts (auto) 18.7 H, Absolute Lymphs (auto) 1.98, Nucleated RBC % 0, Sodium 131 L, Potassium 4.5, Chloride 97 L, Carbon Dioxide 24.8, Anion Gap 9, BUN 9, Creatinine 0.67 L, Estim Creat Clear Calc 119.32, Est GFR (MDRD) Non-Af 111, BUN/Creatinine Ratio 13.9, Glucose 130 H, Hemoglobin A1c 5.5 L, Calcium 10.0, Phosphorus 3.4, Magnesium 1.9, Total Bilirubin 0.60, AST 18, ALT 17, Alkaline Phosphatase 101, Total Protein 6.4, Albumin 3.3 L, Globulin 3.1, Albumin/Globulin Ratio 1.1 Physical Exam Const alert, oriented x3, no apparent distress and well nourished; Negative for average body habitus or healthy appearing Constitutional Narrative: Obese, middle-aged, white female, lying in bed appears comfortable at this time, nontoxic General Appearance: cooperative HEENT normocephalic, head/scalp atraumatic, hearing grossly normal bilaterally and moist oral mucous membranes HEENT Narrative: Mallampati 3, no thrush Resp normal respiratory effort, no retractions, no use of accessory muscles and clear to auscultation bilaterally Auscultation: Negative for rales, rhonchi or wheezes Cardio regular rate, regular rhythm, S1 normal heart sound, S2 normal heart sound, no murmurs, no rub, no gallops and no clicks GI normal to inspection, nondistended, normoactive bowel sounds and soft to palpation; Negative for non-tender GI Narrative: Mild amount of tenderness in the epigastrium and left upper quadrant however appears to be better since yesterday Extremity no clubbing, cyanosis or edema Extremity Narrative: Pedal and radial pulses are 2+ Neuro oriented x3, moves all extremities and no focal motor deficits Speech: speech normal Psych affect normal Psych Narrative: Very pleasant, interacts appropriately Assessment & Plan Assessment/Plan (1) Pancreatitis: (2) Leukocytosis: (3) Intractable pain: PLAN: Plan Recurrent acute pancreatitis -Continue n.p.o. with sips and chips sparingly -Continue as needed pain medication both IV and p.o. -Continue aggressive IV fluids with 200 cc an hour of normal saline -Continue antiemetics as needed -Choledocholithiasis was found at her last hospitalization and biliary stent was placed with stone removal -Continue Zosyn with recent stent placement -GI consultation remains pending Leukocytosis -Likely reactive but with recent stent placement will place on Zosyn -Slightly better today but still elevated -No signs of infection -Will trend with repeat CBC in a.m. Chronic anemia -Appear to be hemoconcentrated yesterday however with IV fluids dropped into the 10-11 range -Stable compared to previous admission -Repeat CBC in the a.m. Mild hyponatremia -Etiology is uncertain. Creatinine is normal. Is not dehydrated -Will repeat lab in a.m. with continued IV fluids for pancreatitis Hyperglycemia -Suspect reactive -A1c is 5.5 Hypertension -Continue home losartan -Continue home amlodipine -As needed hydralazine for systolic pressure greater than 150 Hepatomegaly -Suspect nonalcoholic fatty liver disease -Recommend weight loss -Outpatient GI follow-up Anxiety/depression -Continue home fluoxetine Obesity -BMI 35.7 -Recommend weight loss -Complicates treatment, prognosis, outcomes DVT prophylaxis -Lovenox subcu daily CODE STATUS -Full code Charges/Coding Visit Charges Inpatient E&M: 55839 Subs Hosp L2
[2024-09-26 07:20] LABS: Bedside Glucose 126 mg/dL (74-106)
[2024-09-26 07:55] VITALS: BP 136/85; PULSE 90; RESP 14; TEMP 37.4; O2SAT 91
[2024-09-26 08:17] LABS: Bedside Glucose 115 mg/dL (74-106)
[2024-09-26] MEDS: amLODIPine 10 MG Tablet PO (08:52)
[2024-09-26] MEDS: Fluoxetine HCl 40 MG CAPSULE PO (08:52)
[2024-09-26] MEDS: Losartan Potassium 100 MG Tablet PO (08:52)
[2024-09-26] MEDS: Enoxaparin 40 MG/0.4 ML Syringe SC (08:53)
[2024-09-26] MEDS: Ondansetron 4 MG/2 ML Vial IV ×2 (08:58→21:09)
--- NOTE | 2024-09-26 11:14 | CASEMGMT ---
PARAM HENDRIX Readmission Note Previous Admission: 09/12/24-09/19/24 Diagnosis: acute pancreatitis DC Disposition: Home Current Admission: Admitted 09/25/24 Current Diagnosis: acute pancreatitis resolved Pt with index admission for acute pancreatitis. Pt had a MRCP on 09/17/24 with small amount of fluid around pancreas. Pt then had a ERCP on 09/18 which found a biliary stricture. Pt had complete removal with biliary sphincterotomy and balloon extraction and one stent. Pt was started on new meds for HTN. Pt was stable for dc on 09/19 to home. PARAM HENDRIX into pt room, pt lying in bed in no distress. Pt states she was taking her meds as ordered at home. She has not yet had a chance to make an appt with Dr. Sotelo but had seen her PCP on Tuesday. Pt to have GI c/s. Pt denies any homegoing needs. DC Plan: Home
[2024-09-26 11:30] LABS: Bedside Glucose 110 mg/dL (74-106)
[2024-09-26] MEDS: proCHLORPERazine 10 MG/2 ML Vial 5 MG IV ×2 (12:16→17:05)
[2024-09-26 13:50] VITALS: BP 117/72; PULSE 81; RESP 16; TEMP 36.8; O2SAT 91
--- NOTE | 2024-09-26 16:20 | NURSING ---
All documentation by administrative nursing supervisor Sreedhar Rayo reviewed by psychiatric nursing aide Nataliia Farooq BSN, RN.
[2024-09-26 18:06] LABS: Bedside Glucose 107 mg/dL (74-106)
--- NOTE | 2024-09-26 20:09 | EX.PCM.CON.G ---
HPI Consult Data Date of Consult: 09/26/24 HPI Narrative Reason for Consultation: Pancreatitis and abdominal pain HPI Narrative: CASIMIRO PUTNAM, is a 44 F who presented to [facility] ED on 09/12/2024 with abdominal pain. Hospital course as noted below. Patient discharged home in stable condition on 09/19. She came back to the hospital on 09/25/2024 with worsening abdominal pain and again an increased lipase at 249. Initially when she presented to the hospital back on 09/12/[address] abdomen pelvis on admit with findings concerning for pancreatitis. Lipase 1599. Initially there was no clear cause for pancreatitis. She admitted to minimal alcohol use, triglyceride level normal and LFTs fairly unremarkable. Attempted to advance diet to full liquids on 09/16 but patient reported significantly more pain. Repeat CT abdomen pelvis redemonstrated acute/uncomplicated pancreatitis. Lipase level was rechecked and did normalize on 09/16. MRCP on 09/17 showed small but abnormal amount of fluid around the pancreas; otherwise showed absent gallbladder and no evidence of choledocholithiasis. I was consulted due to the appearance of his stricture at the distal common bile duct. She underwent ERCP and was noted to have a duodenal diverticulum along with however, choledocholithiasis and biliary stricture thought to be secondary to possible chronic pancreatitis with dilated main bile duct and common bile duct; the choledocholithiasis was complete removal was accomplished by biliary sphincterotomy and balloon extraction and 1 temporary stent was placed in the common bile duct. Patient did well post ERCP, was stable for discharge home on 09/19. I ordered so ordered a notably did have extensive lab workup sent to rule out additional causes of pancreatitis, except for hereditary pancreatitis and PHOSPHATIDYLETHANOL (with the parameters that PEth levels in excess of 20 ng/mL are considered evidence of moderate to heavy ethanol consumption.) [facility] Medical History Hypertension Pancreatitis Hypertension Anxiety Home Medications ?Medication ?Instructions ?Recorded ?Last Taken ?Type fluoxetine 40 mg capsule 40 mg PO DAILY mental health 09/12/24 Unknown History ipratropium bromide 42 mcg (0.06 1 spray intranasal TID PRN PRN 09/12/24 Unknown History %) nasal spray allergy symptoms amlodipine 10 mg tablet 10 mg PO DAILY 30 days #30 tabs 09/19/24 Unknown Rx losartan 100 mg tablet 100 mg PO DAILY 30 days #30 tabs 09/19/24 Unknown Rx oxycodone 5 mg tablet 5 mg PO Q6H PRN pain 3 days #12 09/19/24 Unknown Rx tabs doxycycline hyclate 100 mg tablet 100 mg PO BID 09/25/24 Unknown History prochlorperazine maleate 5 mg 5 mg PO BID 09/25/24 Unknown History tablet (Compazine) Allergy/AdvReac Type Severity Reaction Status Date / Time No Known Allergies Allergy Verified 09/25/24 04:08 Family History Other Hypertension Surgical History S/P ERCP Hx of cholecystectomy Social History Smoking Status: Former smoker alcohol intake: current alcohol intake frequency: 0-2 drinks per day substance use type: does not use ROS Constitutional Constitutional: Denies anorexia, change in weight, chills, fatigue, fever(s), malaise, night sweats, weakness or other Eyes Eyes: Denies blurry vision, change in eye color, change in vision, discharge from eye(s), double vision, erythema, eye pain, loss of vision or other ENT HEENT: Denies abnormal hearing, dysphagia, ear pain, epistaxis, headache(s), hearing loss, nasal congestion, nasal discharge, post nasal drip, sinus pressure, sore throat or other Cardiovascular Cardiovascular: Denies chest pain, claudication, dyspnea on exertion, edema, lightheadedness, orthopnea, palpitations, paroxysmal nocturnal dyspnea, rapid heart rate, syncope or other Respiratory/Chest Respiratory/Chest: Denies cough, dyspnea, excessive phlegm production, hemoptysis, productive cough, shortness of breath at rest, shortness of breath with exertion, wheezing or other Gastrointestinal Gastrointestinal: Reports abdominal pain, nausea and other Details: Decreased flatus Genitourinary Genitourinary: Denies burning urination, difficulty urinating, dysuria, hematuria, nocturia, urinary frequency, urinary hesitancy, urinary incontinence, urinary urgency or other Musculoskeletal Musculoskeletal: Reports back pain; Denies arthralgias, joint pain, joint stiffness, joint swelling, myalgias, neck pain or other Neurologic Neurologic: Denies abnormal gait, abnormal speech, confusion, disequilibrium, dizziness, focal weakness, headache(s), numbness, paresthesias, seizure-like activity, seizures, syncope, tingling, tremor(s) or other Psychiatric Psychiatric: Reports depression; Denies anxiety, homicidal ideation, suicidal ideation or other Endocrine Endocrinology: Denies change in body appearance, cold intolerance, excessive sweating, heat intolerance, polydipsia, polyuria or other Hematologic/Lymphatic Hematologic/Lymphatic: Denies anemia, easy bleeding, easy bruising, lymphadenopathy or other Allergic/Immunologic Allergic/Immunologic: Denies rhinitis, hives, eczemia, asthma or other Physical Exam Const alert, oriented x3, no apparent distress and well nourished; Negative for average body habitus or healthy appearing Constitutional Narrative: Obese, middle-aged, white female, lying in bed appears comfortable at this time, nontoxic General Appearance: cooperative HEENT normocephalic, head/scalp atraumatic, hearing grossly normal bilaterally and moist oral mucous membranes HEENT Narrative: Mallampati 3, no thrush Resp normal respiratory effort, no retractions, no use of accessory muscles and clear to auscultation bilaterally Auscultation: Negative for rales, rhonchi or wheezes Cardio regular rate, regular rhythm, S1 normal heart sound, S2 normal heart sound, no murmurs, no rub, no gallops and no clicks GI normal to inspection, nondistended, normoactive bowel sounds and soft to palpation; Negative for non-tender GI Narrative: Mild amount of tenderness in the epigastrium and left upper quadrant however appears to be better since yesterday Extremity no clubbing, cyanosis or edema Extremity Narrative: Pedal and radial pulses are 2+ Neuro oriented x3, moves all extremities and no focal motor deficits Speech: speech normal Psych affect normal Psych Narrative: Very pleasant, interacts appropriately Lab / Micro Data 09/26/24 05:18 09/26/24 05:18 Labs: Laboratory Results - last 24 hr 09/26/24 00:23: POC Glucose 117 H 09/26/24 05:18: WBC 22.6 H, RBC 4.06 L, Hgb 10.7 L, Hct 34.5 L, MCV 85.0, MCH 26.4 L, MCHC 31.0 L, RDW Std Deviation 44.1 H, RDW Coeff of Chelsie 14.2, Plt Count 349, MPV 9.9, Immature Gran % (Auto) 0.800, Neut % (Auto) 82.9 H, Lymph % (Auto) 8.8 L, [place] % (Auto) 6.5, Eos % (Auto) 0.8, Baso % (Auto) 0.2, Absolute Neuts (auto) 18.7 H, Absolute Lymphs (auto) 1.98, Nucleated RBC % 0, Sodium 131 L, Potassium 4.5, Chloride 97 L, Carbon Dioxide 24.8, Anion Gap 9, BUN 9, Creatinine 0.67 L, Estim Creat Clear Calc 119.32, Est GFR (MDRD) Non-Af 111, BUN/Creatinine Ratio 13.9, Glucose 130 H, Hemoglobin A1c 5.5 L, Calcium 10.0, Phosphorus 3.4, Magnesium 1.9, Total Bilirubin 0.60, AST 18, ALT 17, Alkaline Phosphatase 101, Total Protein 6.4, Albumin 3.3 L, Globulin 3.1, Albumin/Globulin Ratio 1.1 09/26/24 06:35: POC Glucose 126 H 09/26/24 07:38: POC Glucose 115 H 09/26/24 11:11: POC Glucose 110 H 09/26/24 17:15: POC Glucose 107 H Assessment & Plan Assessment/Plan (1) Acute pancreatitis: (2) Hypertension: (3) Leukocytosis: PLAN: Plan 43-year-old with history of cholecystitis status post cholecystectomy with history of acute recurrent pancreatitis. She has no history of hypertriglyceridemia, cystic fibrosis, IgG associated disease, multiple endocrine neoplasia, celiac disease, vasculitis. However MRCP did not show any signs of pancreatic divisum.Her initial episode of pancreatitis started more than 4 years ago when she suffered from 4 episodes of acute pancreatitis and went on to have a cholecystectomy. She underwent ERCP. she had sphincterotomy with stone removal and stent placement. She has never been on pancreatic enzymes and she has never had an endoscopic ultrasound.The pancreatic parenchyma was normal in signal and appearance without mass or?pancreatic duct?dilatation on these tests. Her symptoms have increased in severity over the past year. She has no signs and symptoms of chronic pancreatitis. Recurrent acute pancreatitis is defined as more than 2 episodes of a sudden inflammation of the pancreas. Clinical symptoms usually start with?epigastric pain?that sometimes spreads to the back and is associated with nausea, vomiting, and fever. Most cases of acute pancreatitis result from?biliary stone disease?and longstanding alcohol consumption. Workup including: KENZIE comprehensive, workup for cystic fibrosis, celiac disease, IgG4 associated, vasculitis, HIV, repeat triglycerides, inflammatory bowel disease, hereditary pancreatitis: Three-gene Profile (PRSS1, SPINK1, CFTR), Phosphatidylethanol (PEth)-lab a bit but she has any excessive alcohol with the last 3 months. Recommended continue supportive care and await blood test. She will likely need endoscopic ultrasound to definitively look for any signs of chronic pancreatitis and possibly need pancreatic biopsy. Charges/Coding Visit Charges Inpatient E&M: 74867 Init Hosp L3
[2024-09-26 21:06] VITALS: BP 118/69; PULSE 85; RESP 16; TEMP 37; O2SAT 96
[2024-09-27] MEDS: oxyCODONE 5 MG Tablet 10 MG PO ×4 (00:19→20:00)
[2024-09-27 00:38] LABS: Bedside Glucose 95 mg/dL (74-106)
[2024-09-27 02:59] VITALS: BP 119/71; PULSE 73; RESP 16; TEMP 36.9; O2SAT 94
[2024-09-27] MEDS: proCHLORPERazine 10 MG/2 ML Vial 5 MG IV (03:06)
[2024-09-27] MEDS: HYDROmorphone 1 MG/ML Syringe IV ×4 (03:06→22:22)
[2024-09-27 06:00] VITALS: BMI 35.4
[2024-09-27] MEDS: Piperacil/Tazobactam 3.375 GM in 0.9% Normal Saline (50mL MB+) 50 ML IV ×3 (06:28→22:30)
[2024-09-27 06:41] LABS: Absolute Lymphocyte Count 2.54 X10^3/uL (0.83-4.51); Absolute Neutrophil Count 10.1 X10^3/uL (2.0-7.7); Basophil# 0.04 X10^3/uL; Basophil% 0.3 % (0-1); Eosinophil# 0.49 X10^3/uL; Eosinophils% 3.4 % (0-5); Hemoglobin 10.2 g/dL (12.0-15.0); Lymphocyte # 2.54 X10^3/ul (0.83-4.51); Lymphocyte % 17.8 % (19-41); Mean Corp Hgb Conc 30.9 g/dL (32-36); Mean Corpuscular Hgb 26.5 pg (27.0-32.0); Mean Corpuscular Volume 85.7 fL (81-99); Mean Platelet Vol. 10.3 fl (6.2-12.0); Monocyte# 1.02 X10^3/uL; Monocyte% 7.1 % (0-10); NRBC Flagged by Analyzer 0 % (0-5); Neutrophil % 70.8 % (47-70); Platelet Count 320 K/mm3 (150-450); RBC Distribution Width SD 44.2 fl (35.1-43.9); Red Blood Count 3.85 M/mm3 (4.2-5.4); White Blood Count 14.3 K/mm3 (4.4-11.0)
[2024-09-27 07:08] LABS: Bedside Glucose 92 mg/dL (74-106)
[2024-09-27 07:21] LABS: Anion Gap 13 (5-15); BUN 14 mg/dL (4-19); BUN/Creat Ratio 19.5 RATIO (10-20); Calcium,Total 10.4 mg/dL (7.6-11.0); Chloride 96 mmol/L (98-108); EST Glomerular Filtration Rate 109 (>60); Estimated Creatinine Clearance 114.08 ml/min (50-250); Glucose 91 mg/dL (70-99); Potassium 4.3 mmol/L (3.3-5.1); Sodium Level 134 mmol/L (133-145)
[2024-09-27 07:26] VITALS: O2SAT 91
[2024-09-27 09:15] VITALS: BP 98/61; PULSE 74; RESP 16; TEMP 36.7; O2SAT 93
[2024-09-27] MEDS: Lactated Ringers 1,000 ML 75 ML IV ×2 (09:19→22:48)
[2024-09-27] MEDS: Ondansetron 4 MG/2 ML Vial IV ×2 (09:22→20:59)
[2024-09-27] MEDS: 0.9% Saline Lock 10 ML Syringe IV ×3 (09:22→22:22)
[2024-09-27] MEDS: Fluoxetine HCl 40 MG CAPSULE PO (09:41)
[2024-09-27] MEDS: Enoxaparin 40 MG/0.4 ML Syringe SC (09:41)
[2024-09-27 12:12] LABS: Bedside Glucose 85 mg/dL (74-106)
[2024-09-27 12:56] VITALS: BP 106/67; PULSE 75; RESP 16; TEMP 36.7; O2SAT 96
--- NOTE | 2024-09-27 13:33 | PCM.PN.HOSP ---
Reason for Visit Reason for Visit: Abdominal pain Subjective Subjective Patient states overall she is feeling slowly better. Still having abdominal pain and still requiring some pain meds however was able to sleep through some of her as needed pain meds through the night Objective Data Objective Data Vital Signs: Vital Signs Temp Pulse Resp BP Pulse Ox O2 Del Method 98.0 F 75 16 106/67 96 Room Air 09/27/24 12:56 09/27/24 12:56 09/27/24 12:56 09/27/24 12:56 09/27/24 12:56 09/27/24 12:56 Oxygen Delivery Method Room Air Weight: 94.1 kg Body Mass Index (BMI) 35.4 Intake & Output: Intake and Output for Last 24 Hours 09/25/24 09/26/24 09/27/24 23:59 23:59 23:59 Intake Total 3130 / 3130 2110 / 2160 150 / 150 Output Total 800 / 800 Balance 3130 / 3130 1310 / 1360 150 / 150 Lab / Micro Data 09/27/24 05:11 09/27/24 05:11 Labs: Laboratory Results - last 24 hr 09/26/24 17:15: POC Glucose 107 H 09/27/24 00:18: POC Glucose 95 09/27/24 05:11: WBC 14.3 H, RBC 3.85 L, Hgb 10.2 L, Hct 33.0 L, MCV 85.7, MCH 26.5 L, MCHC 30.9 L, RDW Std Deviation 44.2 H, RDW Coeff of Chelsie 14.0, Plt Count 320, MPV 10.3, Immature Gran % (Auto) 0.600, Neut % (Auto) 70.8 H, Lymph % (Auto) 17.8 L, [place] % (Auto) 7.1, Eos % (Auto) 3.4, Baso % (Auto) 0.3, Absolute Neuts (auto) 10.1 H, Absolute Lymphs (auto) 2.54, Nucleated RBC % 0, Sodium 134, Potassium 4.3, Chloride 96 L, Carbon Dioxide 25.0, Anion Gap 13, BUN 14, Creatinine 0.70, Estim Creat Clear Calc 114.08, Est GFR (MDRD) Non-Af 109, BUN/Creatinine Ratio 19.5, Glucose 91, Calcium 10.4, Miscellaneous Test Cancelled 09/27/24 05:11: Miscellaneous Test Cancelled 09/27/24 06:26: POC Glucose 92 09/27/24 11:17: POC Glucose 85 Physical Exam Const alert, oriented x3, no apparent distress and well nourished; Negative for average body habitus or healthy appearing Constitutional Narrative: Obese, middle-aged, white female, lying in bed appears comfortable at this time, nontoxic General Appearance: cooperative HEENT normocephalic and head/scalp atraumatic Resp normal respiratory effort, no retractions, no use of accessory muscles and clear to auscultation bilaterally Auscultation: Negative for rales, rhonchi or wheezes Cardio regular rate, regular rhythm, S1 normal heart sound, S2 normal heart sound, no murmurs, no rub, no gallops and no clicks GI normal to inspection, nondistended, normoactive bowel sounds and soft to palpation; Negative for non-tender GI Narrative: Very minimal left upper quadrant pain with palpation today Extremity no clubbing, cyanosis or edema Extremity Narrative: Pedal and radial pulses are 2+ Neuro oriented x3, moves all extremities and no focal motor deficits Speech: speech normal Psych affect normal Psych Narrative: Very pleasant, interacts appropriately Assessment & Plan Assessment/Plan (1) Pancreatitis: (2) Leukocytosis: (3) Intractable pain: PLAN: Plan Recurrent acute pancreatitis -Continue n.p.o. with sips and chips sparingly--> seems to be slowly improving -Continue as needed pain medication both IV and p.o. -Decrease IV fluids to 75 cc/h as patient tends to get volume overloaded fairly easily home -Continue antiemetics as needed -Choledocholithiasis was found at her last hospitalization and biliary stent was placed with stone removal -Continue Zosyn with recent stent placement -Discussed the case with Dr. Sotelo as his note stated that she would need ERCP and pt wasnt clear on plan--> plan is to wait another 24 hrs since she seems to be improving and reevaluated need for ERCP tomorrow Leukocytosis -Trending down and almost normalized -No signs of infection -Will trend with repeat CBC in a.m. Chronic anemia -Hemoglobin appears to be stable in the 10-11 range -Stable compared to previous admission -Repeat CBC in the a.m. Mild hyponatremia -Resolved Hyperglycemia -Suspect reactive -A1c is 5.5 Hypertension -Patient typically is fairly hypertensive however blood pressures today are on the low side -Hold antihypertensives today -Hold home losartan -Hold home amlodipine -As needed hydralazine for systolic pressure greater than 150 Hepatomegaly -Suspect nonalcoholic fatty liver disease -Recommend weight loss -Outpatient GI follow-up Anxiety/depression -Continue home fluoxetine Obesity -BMI 35.6 -Recommend weight loss -Complicates treatment, prognosis, outcomes DVT prophylaxis -Lovenox subcu daily CODE STATUS -Full code Charges/Coding Visit Charges Inpatient E&M: 98579 Subs Hosp L2
[2024-09-27 17:01] LABS: Bedside Glucose 68 mg/dL (74-106)
--- NOTE | 2024-09-27 17:38 | PCM.PN.BLA ---
Progress Note Patient says she is feeling a lot better today. She feels like her pain is under control and she would like to try to eat something. Physical Exam Const alert, oriented x3, no apparent distress and well nourished; Negative for average body habitus or healthy appearing Constitutional Narrative: Obese, middle-aged, white female, lying in bed appears comfortable at this time, nontoxic General Appearance: cooperative HEENT normocephalic and head/scalp atraumatic Resp normal respiratory effort, no retractions, no use of accessory muscles and clear to auscultation bilaterally Auscultation: Negative for rales, rhonchi or wheezes Cardio regular rate, regular rhythm, S1 normal heart sound, S2 normal heart sound, no murmurs, no rub, no gallops and no clicks GI normal to inspection, nondistended, normoactive bowel sounds and soft to palpation; Negative for non-tender GI Narrative: Very minimal left upper quadrant pain with palpation today Extremity no clubbing, cyanosis or edema Extremity Narrative: Pedal and radial pulses are 2+ Neuro oriented x3, moves all extremities and no focal motor deficits Speech: speech normal Psych affect normal Psych Narrative: Very pleasant, interacts appropriately Assessment & Plan Assessment/Plan (1) Acute pancreatitis: (2) Hypertension: (3) Leukocytosis: PLAN: Plan 43-year-old with history of cholecystitis status post cholecystectomy with history of acute recurrent pancreatitis. She has no history of hypertriglyceridemia, cystic fibrosis, IgG associated disease, multiple endocrine neoplasia, celiac disease, vasculitis. However MRCP did not show any signs of pancreatic divisum.Her initial episode of pancreatitis started more than 4 years ago when she suffered from 4 episodes of acute pancreatitis and went on to have a cholecystectomy. She underwent ERCP. she had sphincterotomy with stone removal and stent placement. She has never been on pancreatic enzymes and she has never had an endoscopic ultrasound.The pancreatic parenchyma was normal in signal and appearance without mass or?pancreatic duct?dilatation on these tests. Her symptoms have increased in severity over the past year. She has no signs and symptoms of chronic pancreatitis. Recurrent acute pancreatitis is defined as more than 2 episodes of a sudden inflammation of the pancreas. Clinical symptoms usually start with?epigastric pain?that sometimes spreads to the back and is associated with nausea, vomiting, and fever. Most cases of acute pancreatitis result from?biliary stone disease?and longstanding alcohol consumption. Workup including: KENZIE comprehensive, workup for cystic fibrosis, celiac disease, IgG4 associated, vasculitis, HIV, repeat triglycerides, inflammatory bowel disease, hereditary pancreatitis: Three-gene Profile (PRSS1, SPINK1, CFTR), Phosphatidylethanol (PEth)-lab a bit but she has any excessive alcohol with the last 3 months. Recommended continue supportive care and await blood test. She will likely need endoscopic ultrasound to definitively look for any signs of chronic pancreatitis and possibly need pancreatic biopsy. 09/27/2024-I will advance her diet as tolerated. I told her that is going to take a long time for her autoimmune workup and hereditary pancreatitis workup to come back. If she is tolerating a diet and her pain is under control then she should be able to go home. Visit Charges Inpatient E&M: 13912 Subs Hosp L3
[2024-09-27 18:30] VITALS: BP 124/78; PULSE 73; RESP 16; TEMP 36.5; O2SAT 96
[2024-09-27] MEDS: Creon 24,000 unit DR Capsule 1 CAP PO (18:32)
[2024-09-27 22:18] VITALS: BP 123/77; PULSE 75; RESP 18; TEMP 37.2; O2SAT 93
[2024-09-28] VITALS (7 sets, daily range): BP systolic 116–132; BP diastolic 71–83; PULSE 66–78; RESP 15–18; TEMP 36.4–37; O2SAT 93–99; BMI 35.4
[2024-09-28] MEDS: HYDROmorphone 1 MG/ML Syringe IV ×2 (01:28→08:31)
[2024-09-28] MEDS: proCHLORPERazine 10 MG/2 ML Vial 5 MG IV ×2 (01:28→22:27)
[2024-09-28] MEDS: 0.9% Saline Lock 10 ML Syringe IV ×4 (01:29→22:28)
[2024-09-28] MEDS: oxyCODONE 5 MG Tablet 10 MG PO ×3 (05:17→20:05)
[2024-09-28 06:09] LABS: Absolute Lymphocyte Count 2.04 X10^3/uL (0.83-4.51); Absolute Neutrophil Count 5.9 X10^3/uL (2.0-7.7); Basophil# 0.03 X10^3/uL; Basophil% 0.3 % (0-1); Eosinophil# 0.43 X10^3/uL; Eosinophils% 4.8 % (0-5); Hematocrit 34.7 % (37-47); Hemoglobin 10.8 g/dL (12.0-15.0); Lymphocyte # 2.04 X10^3/ul (0.83-4.51); Lymphocyte % 22.8 % (19-41); Mean Corp Hgb Conc 31.1 g/dL (32-36); Mean Corpuscular Hgb 26.4 pg (27.0-32.0); Mean Corpuscular Volume 84.8 fL (81-99); Monocyte# 0.52 X10^3/uL; Monocyte% 5.8 % (0-10); NRBC Flagged by Analyzer 0 % (0-5); Neutrophil # 5.87 X10^3/uL (2.7-7.7); Neutrophil % 65.7 % (47-70); Platelet Count 344 K/mm3 (150-450); RBC Distribution Width CV 13.2 % (11.6-14.6); Red Blood Count 4.09 M/mm3 (4.2-5.4); White Blood Count 8.9 K/mm3 (4.4-11.0)
[2024-09-28] MEDS: Piperacil/Tazobactam 3.375 GM in 0.9% Normal Saline (50mL MB+) 50 ML IV ×3 (06:19→22:23)
[2024-09-28 06:23] LABS: AST(SGOT) 21 U/L (<=31); Alanine Aminotransfer ALT/SGPT 17 U/L (<=34); Albumin, Serum 3.4 g/dL (3.5-5.0); Alkaline Phosphatase 101 U/L (35-104); Anion Gap 13 (5-15); BUN 15 mg/dL (4-19); BUN/Creat Ratio 23.5 RATIO (10-20); Calcium,Total 10.1 mg/dL (7.6-11.0); Carbon Dioxide 25.1 mmol/L (21.0-32.0); Chloride 99 mmol/L (98-108); Creatinine, Serum 0.62 mg/dL (0.70-1.20); EST Glomerular Filtration Rate 113 (>60); Estimated Creatinine Clearance 128.87 ml/min (50-250); Globulin 3.5 g/dL (2.2-4.2); Glucose 92 mg/dL (70-99); Potassium 3.9 mmol/L (3.3-5.1); Protein, Total 6.8 g/dL (5.9-8.4); Sodium Level 136 mmol/L (133-145); Total Bilirubin 0.26 mg/dL (0.00-1.30)
[2024-09-28] MEDS: Ondansetron 4 MG/2 ML Vial IV ×2 (08:31→20:03)
[2024-09-28] MEDS: Creon 24,000 unit DR Capsule 1 CAP PO ×4 (08:31→21:10)
[2024-09-28] MEDS: Losartan Potassium 100 MG Tablet PO (09:39)
[2024-09-28] MEDS: Enoxaparin 40 MG/0.4 ML Syringe SC (09:40)
[2024-09-28] MEDS: Fluoxetine HCl 40 MG CAPSULE PO (09:40)
[2024-09-28] MEDS: amLODIPine 10 MG Tablet PO (09:40)
--- NOTE | 2024-09-28 16:00 | PCM.PN.HOSP ---
Reason for Visit Reason for Visit: Abdominal pain Subjective Subjective Patient states that she has been tolerating a diet decently well. Still requiring some intermittent pain medication. I did discuss with her that we would go ahead and stop IV fluids and IV pain medicines and see how she does with oral pain medications through the rest of the day and through the night and then make further decisions depending on how her p.o. intake has been and her pain over the next 24 hours. If she does well as we are hoping she should be able to go home tomorrow. Objective Data Objective Data Vital Signs: Vital Signs Temp Pulse Resp BP Pulse Ox O2 Del Method 98.0 F 72 15 116/71 94 Room Air 09/28/24 12:21 09/28/24 12:21 09/28/24 12:21 09/28/24 12:21 09/28/24 12:21 09/28/24 12:21 Oxygen Delivery Method Room Air Weight: 94.2 kg Body Mass Index (BMI) 35.4 Intake & Output: Intake and Output for Last 24 Hours 09/26/24 09/27/24 09/28/24 23:59 23:59 23:59 Intake Total 2110 / 2160 1200 / 1200 956.25 / 956.25 Output Total 800 / 800 Balance 1310 / 1360 1200 / 1200 956.25 / 956.25 Lab / Micro Data 09/28/24 05:15 09/28/24 05:15 Labs: Laboratory Results - last 24 hr 09/27/24 16:25: POC Glucose 68 L 09/28/24 05:15: WBC 8.9, RBC 4.09 L, Hgb 10.8 L, Hct 34.7 L, MCV 84.8, MCH 26.4 L, MCHC 31.1 L, RDW Std Deviation 41.0, RDW Coeff of Chelsie 13.2, Plt Count 344, MPV 10.0, Immature Gran % (Auto) 0.600, Neut % (Auto) 65.7, Lymph % (Auto) 22.8, [place] % (Auto) 5.8, Eos % (Auto) 4.8, Baso % (Auto) 0.3, Absolute Neuts (auto) 5.9, Absolute Lymphs (auto) 2.04, Nucleated RBC % 0, Sodium 136, Potassium 3.9, Chloride 99, Carbon Dioxide 25.1, Anion Gap 13, BUN 15, Creatinine 0.62 L, Estim Creat Clear Calc 128.87, Est GFR (MDRD) Non-Af 113, BUN/Creatinine Ratio 23.5 H, Glucose 92, Calcium 10.1, Total Bilirubin 0.26, AST 21, ALT 17, Alkaline Phosphatase 101, Total Protein 6.8, Albumin 3.4 L, Globulin 3.5, Albumin/Globulin Ratio 1.0 Physical Exam Const alert, oriented x3, no apparent distress and well nourished; Negative for average body habitus or healthy appearing Constitutional Narrative: Obese, middle-aged, white female, lying in bed appears comfortable at this time, nontoxic General Appearance: cooperative HEENT normocephalic, head/scalp atraumatic and moist oral mucous membranes HEENT Narrative: Mallampati 3-4, no thrush Resp normal respiratory effort, no retractions, no use of accessory muscles and clear to auscultation bilaterally Auscultation: Negative for rales, rhonchi or wheezes Cardio regular rate, regular rhythm, S1 normal heart sound, S2 normal heart sound, no murmurs, no rub, no gallops and no clicks GI normal to inspection, nondistended, normoactive bowel sounds and soft to palpation; Negative for non-tender GI Narrative: Minimal pain left upper quadrant and epigastrium today Extremity no clubbing, cyanosis or edema Extremity Narrative: Pedal and radial pulses are 2+ Neuro oriented x3, moves all extremities and no focal motor deficits Speech: speech normal Psych affect normal Psych Narrative: Very pleasant, interacts appropriately Assessment & Plan Assessment/Plan (1) Pancreatitis: (2) Leukocytosis: (3) Intractable pain: PLAN: Plan Recurrent acute pancreatitis -Diet was advanced yesterday by gastroenterology and patient doing fair with this still requiring some intermittent pain medications -Discontinue IV pain medication and continue p.o. for now -Discontinue IV fluids -Continue antiemetics as needed -Choledocholithiasis was found at her last hospitalization and biliary stent was placed with stone removal -Continue Zosyn with recent stent placement -Discussed the case with Dr. Sotelo and current plan is for watchful waiting and hope she does not ERCP at this time Leukocytosis -Resolved Chronic anemia -Hemoglobin appears to be stable in the 10-11 range -Stable compared to previous admission -Repeat CBC in the a.m. Hyperglycemia -Suspect reactive -A1c is 5.5 -Discontinue coverage Hypertension -Patient typically is fairly hypertensive however blood pressures today are on the low side -Hold antihypertensives today -Hold home losartan -Hold home amlodipine -As needed hydralazine for systolic pressure greater than 150 Hepatomegaly -Suspect nonalcoholic fatty liver disease -Recommend weight loss -Outpatient GI follow-up Anxiety/depression -Continue home fluoxetine Obesity -BMI 35.6 -Recommend weight loss -Complicates treatment, prognosis, outcomes DVT prophylaxis -Lovenox subcu daily CODE STATUS -Full code Charges/Coding Visit Charges Inpatient E&M: 11129 Subs Hosp L2
--- NOTE | 2024-09-28 19:28 | PCM.PN.BLA ---
Progress Note Patient's IV pain medicine has been stopped. She has been eating with pancreatic enzymes and they have been taking for pain medicine. She rates her pain a 6 out of 10. Physical Exam Const alert, oriented x3, no apparent distress and well nourished; Negative for average body habitus or healthy appearing General Appearance: cooperative HEENT normocephalic, head/scalp atraumatic and moist oral mucous membranes HEENT Narrative: Mallampati 3-4, no thrush Resp normal respiratory effort, no retractions, no use of accessory muscles and clear to auscultation bilaterally Auscultation: Negative for rales, rhonchi or wheezes Cardio regular rate, regular rhythm, S1 normal heart sound, S2 normal heart sound, no murmurs, no rub, no gallops and no clicks GI normal to inspection, nondistended, normoactive bowel sounds and soft to palpation; Negative for non-tender GI Narrative: Minimal pain left upper quadrant and epigastrium today Extremity no clubbing, cyanosis or edema Extremity Narrative: Pedal and radial pulses are 2+ Neuro oriented x3, moves all extremities and no focal motor deficits Speech: speech normal Psych affect normal Psych Narrative: Very pleasant, interacts appropriately Assessment & Plan Assessment/Plan (1) Acute pancreatitis: (2) Hypertension: (3) Leukocytosis: PLAN: Plan 43-year-old with history of cholecystitis status post cholecystectomy with history of acute recurrent pancreatitis. She has no history of hypertriglyceridemia, cystic fibrosis, IgG associated disease, multiple endocrine neoplasia, celiac disease, vasculitis. However MRCP did not show any signs of pancreatic divisum.Her initial episode of pancreatitis started more than 4 years ago when she suffered from 4 episodes of acute pancreatitis and went on to have a cholecystectomy. She underwent ERCP. she had sphincterotomy with stone removal and stent placement. She has never been on pancreatic enzymes and she has never had an endoscopic ultrasound.The pancreatic parenchyma was normal in signal and appearance without mass or?pancreatic duct?dilatation on these tests. Her symptoms have increased in severity over the past year. She has no signs and symptoms of chronic pancreatitis. Recurrent acute pancreatitis is defined as more than 2 episodes of a sudden inflammation of the pancreas. Clinical symptoms usually start with?epigastric pain?that sometimes spreads to the back and is associated with nausea, vomiting, and fever. Most cases of acute pancreatitis result from?biliary stone disease?and longstanding alcohol consumption. Workup including: [facility] comprehensive, workup for cystic fibrosis, celiac disease, IgG4 associated, vasculitis, HIV, repeat triglycerides, inflammatory bowel disease, hereditary pancreatitis: Three-gene Profile (PRSS1, SPINK1, CFTR), Phosphatidylethanol (PEth)-lab a bit but she has any excessive alcohol with the last 3 months. Recommended continue supportive care and await blood test. She will likely need endoscopic ultrasound to definitively look for any signs of chronic pancreatitis and possibly need pancreatic biopsy. 09/27/2024-I will advance her diet as tolerated. I told her that is going to take a long time for her autoimmune workup and hereditary pancreatitis workup to come back. If she is tolerating a diet and her pain is under control then she should be able to go home. 09/28/2024-acute recurrent pancreatitis. Etiology of her acute recurrent pancreatitis is not totally known yet. If she continues to tolerate diet and her pain is under control she can be DC'd tomorrow with follow-up in the clinic. Visit Charges Inpatient E&M: 09541 Subs Hosp L3
[2024-09-29 03:04] VITALS: BMI 35.4
[2024-09-29 03:09] VITALS: BP 118/71; PULSE 75; RESP 16; TEMP 36.9; O2SAT 94
[2024-09-29] MEDS: oxyCODONE 5 MG Tablet 10 MG PO (03:10)
[2024-09-29] MEDS: proCHLORPERazine 10 MG/2 ML Vial 5 MG IV (03:10)
[2024-09-29] MEDS: Piperacil/Tazobactam 3.375 GM in 0.9% Normal Saline (50mL MB+) 50 ML IV (06:05)
[2024-09-29] MEDS: Creon 24,000 unit DR Capsule 1 CAP PO (08:25)
[2024-09-29 09:20] VITALS: O2SAT 93
--- NOTE | 2024-09-29 09:51 | DS.PCM_ITS ---
Providers Date of Admission: 09/25/24 Date of Discharge: 09/29/24 Primary Care Physician: Mary Escobar MD Consultations 09/25/24 11:59 Consult: Gastroenterology Routine Consulting Provider: Arturo Sotelo Reason for Consult: Recurrent Pancreatitis EMERGENT Consult: No MD Notified: Yes Date Notified: 09/25/24 Time Notified: 09:47 Method of Notification: ED Physician Initiated Reason For Visit: ACUTE PANCREATITIS RESOLVED Diagnosis Discharge Diagnosis (1) Acute pancreatitis: Status: Resolved Code(s): K85.90 - Acute pancreatitis without necrosis or infection, unspecified (2) Hypertension: Status: Inactive Code(s): I10 - Essential (primary) hypertension (3) Leukocytosis: Status: Resolved Code(s): D72.829 - Elevated white blood cell count, unspecified (4) Right sided abdominal pain: Status: Acute Code(s): R10.9 - Unspecified abdominal pain Medications at Discharge Home Medications fluoxetine 40 mg capsule 40 mg PO DAILY mental health 09/12/24 ipratropium bromide 42 mcg (0.06 %) nasal spray 1 spray intranasal TID PRN PRN allergy symptoms 09/12/24 amlodipine 10 mg tablet 10 mg PO DAILY 30 days #30 tabs 09/19/24 losartan 100 mg tablet 100 mg PO DAILY 30 days #30 tabs 09/19/24 oxycodone 5 mg tablet 5 mg PO Q6H PRN pain 3 days #12 tabs 09/19/24 prochlorperazine maleate 5 mg tablet (Compazine) 5 mg PO BID 09/25/24 amoxicillin 875 mg-potassium clavulanate 125 mg tablet 1 tab PO BID #14 tabs 09/29/24 oxycodone 5 mg tablet 10 mg (2 x 5 mg) PO Q6H PRN PRN Pain Score 4-10 3 days #12 tabs 09/29/24 Hospital Course Operations None Procedures - (CT abdomen and pelvis) Summary of Care Provided Minutes Spent on Discharge: 37 Hospital Course: CASIMIRO PUTNAM, is a 44 F who presented to the emergency department [facility] on 09/25/2024 with chief complaint of abdominal pain that was intractable. Patient was initially seen on 09/24/2024 and was discharged at 9 AM. She was medicated with narcotics and drove herself. The plan was to discharge her back home however prior to discharge nursing reported that show he was in increased pain and requesting more pain medication. CT of the abdomen and pelvis did show some evidence of acute pancreatitis. Patient was recently admitted from 09/12/2024 through 09/19/2024 at which time she was found to have choledocholithiasis however her labs did not support these findings during her presentation. Stent was placed and she was discharged home and stated she was feeling better until Tuesday evening when her pain returned. It slowly worsened over time which led to her initial and then subsequent ED visits. She has had some mild nausea and her abdominal pain is similar to her previous pancreatitis. She does have previous pancreatitis diagnosis remotely at which time she was admitted at [facility]. She had COVID at that time as well. She did receive her primary care physician on the day of presentation and they did put her on some doxycycline for her abdominal pain. She was unclear as what the diagnosis was. When her pain became worse she decided to be evaluated. Vital signs on presentation showed temperature of 98, heart rate 86, respiratory rate 16, blood pressure was 155/89 and pulse ox was 98% on room air. CBC on presentation showed a leukocytosis with a white count of 25.3 and a left shift with an 84.4% neutrophilia. Chemistry panel was overtly unremarkable other than hyperglycemia with a blood sugar of 209. Lactic acid was normal at 1.8. Liver functions were unremarkable. Lipase was 287. Procalcitonin was 0.09. She did have a CT of the abdomen pelvis on 09/24/2024 which showed unchanged hepatomegaly with hepatic steatosis, moderately enlarged pancreas suggestive of acute pancreatitis that was improved from previous likely, mild decrease in peripancreatic inflammation and fat stranding with edema, significant decrease in perihepatic fluid, CBD stent in good position, pneumobilia from previous enterotomy, uncomplicated colonic diverticulosis and mild splenomegaly with thickening of the bladder unchanged from previous which is consistent with gastritis and minimal residual left pleural effusion with resolved right pleural effusion. She was admitted to the medical floor placed on aggressive IV fluids, antibiotics with Zosyn, was made n.p.o. except for sips and chips and home medications, and placed on IV pain medication. She slowly improved with time. She was evaluated by gastroenterology and they elected to hold off on a repeat ERCP as she was clinically improving. Etiology for pancreatitis is still unclear. Thus far her autoimmune workup is benign however all that has not yet resulted. Her diet was slowly advanced to the point where she was eating a regular diet for full 24 hours prior to discharge. She was feeling much better and ready to go home on 09/29/2024. She was having very minimal pain. We did send her with some short- term pain medication just in case she gets into trouble. She is to call Dr. Sotelo's office and get an appointment to be seen next week. We advised that she see her primary care physician within the next week as well. Discharge diagnoses: Recurrent acute pancreatitis Leukocytosis Chronic anemia Hyperglycemia-reactive with an A1c of 5.5 Hypertension Hepatomegaly Anxiety Depression Obesity Physical Exam Const alert, oriented x3, no apparent distress, no limitations and well nourished; Negative for average body habitus or healthy appearing Constitutional Narrative: Obese, middle-aged, white female, up walking the halls, appears well, nontoxic General Appearance: cooperative, comfortable, well kempt and well developed Exam Limitations: no limitations Nutritional Appearance: obese HEENT normocephalic, head/scalp atraumatic, hearing grossly normal bilaterally and moist oral mucous membranes Eyes EOMs intact bilaterally and conjunctivae normal Neck supple Neck Narrative: Neck is short thick, trachea midline Resp normal respiratory effort, no retractions, no use of accessory muscles and clear to auscultation bilaterally Auscultation: Negative for rales, rhonchi or wheezes Cardio regular rate, regular rhythm, S1 normal heart sound, S2 normal heart sound, no murmurs, no rub, no gallops and no clicks GI normal to inspection, nondistended, normoactive bowel sounds, soft to palpation and non-tender Extremity no clubbing, cyanosis or edema Extremity Narrative: Pedal and radial pulses are 2+ Skin skin turgor normal, no jaundice, no petechiae and no mottling Neuro oriented x3, moves all extremities and no focal motor deficits Neuro Narrative: Normal gait pattern without assistive device Speech: speech normal Psych affect normal Psych Narrative: Very pleasant, interacts appropriately Weight / BMI Weight Weight: 94.1 kg Body Mass Index (BMI) 35.4 ABG / Lab / Microbiology Data 09/28/24 05:15 09/28/24 05:15 D/C Instructions Discharge Diet: Low fat / Low cholesterol Discharge Activity: Return to Normal Activity Return to work on: 10/01/24 DC O2, CPAP, BIPAP Needs Home O2 Discharge instructions: No Meaningful Use Info Meaningful Use Meaningful Use Diagnoses (Choose all that apply): None applicable Ischemic Stroke Statin Dosing Therapy Reference: STATIN DOSE THERAPY REFERENCE: * Patients > 75 years receive moderate or high dose statin therapy. * Patients 75 years or YOUNGER should receive HIGH intensity statin dose unless contraindicated. You will be required to document reason for non-treatment if statin daily dose does not meet guidelines. HIGH DOSE STATIN THERAPY DAILY Atorvastatin > than or = to 40 mg Rosuvastatin > than or = to 20 mg Amlodipine + Atorvastatin > than or = to 2.5/40 mg Ezetimibe + Simvastatin 10/80 mg Simvastatin 80mg Discharge Plan Admission Admit Date/Time: 09/25/24 09:44 Primary Reason for Your Visit: Abdominal Pain Attending Provider: Charlotte Gibbs Primary Care Provider: Mary Escobar Consulting Providers: Arturo Sotelo Instructions Additional Instructions / Restrictions: Discharge Orders/Prescriptions Prescriptions: New oxycodone 5 mg Tablet 10 mg PO Q6H PRN PRN (Reason: Pain Score 4-10) 3 Days Qty: 12 0RF amoxicillin-pot clavulanate 875-125 mg tablet 1 tab PO BID Qty: 14 0RF Continued prochlorperazine maleate [Compazine] 5 mg tablet 5 mg PO BID ipratropium bromide 42 mcg (0.06 %) spray,non-aerosol 1 spray INTRANASAL TID PRN PRN (Reason: allergy symptoms) fluoxetine 40 mg capsule 40 mg PO DAILY amlodipine 10 mg Tablet 10 mg PO DAILY 30 Days Qty: 30 2RF losartan 100 mg Tablet 100 mg PO DAILY 30 Days Qty: 30 2RF oxycodone 5 mg tablet 5 mg PO Q6H PRN (Reason: pain) 3 Days Qty: 12 0RF Discontinued doxycycline hyclate 100 mg tablet 100 mg PO BID Referrals / Follow Up: Mary Escobar MD [Primary Care Provider] - Within 1 Week Arturo Sotelo DO [Med Staff - Active Staff] - Within 1 Week Disposition Disposition (needs filled in before D/C Order can be placed): Home, Self Care Charges/Coding Visit Charges Inpatient E&M: 16331 Disch Hosp >30min
[2024-09-29] MEDS: Losartan Potassium 100 MG Tablet PO (09:54)
[2024-09-29] MEDS: Fluoxetine HCl 40 MG CAPSULE PO (09:54)
[2024-09-29] MEDS: amLODIPine 10 MG Tablet PO (09:54)
[2024-09-29 10:24] VITALS: BP 143/93; PULSE 81; RESP 16; TEMP 36.6; O2SAT 99
== END 2024-09-29 11:33 | disposition home or self-care (01) | DRG 439 ==
LOC: ED 08:45 → ICU 11:40 → MS3 17:02
PROVIDERS: Internal Medicine Gastroenterology; Admitting Provider Internal Medicine; Emergency Provider Emergency Medicine; PCP Family Medicine; Visit Provider Internal Medicine
DX: K85.90 Acute pancreatitis without necrosis or infection, unspecified (principal); E87.1 Hypo-osmolality and hyponatremia; I10 Essential (primary) hypertension; K76.0 Fatty (change of) liver, not elsewhere classified; F32.A Depression, unspecified; D64.9 Anemia, unspecified; E66.9 Obesity, unspecified; K86.1 Other chronic pancreatitis; D72.829 Elevated white blood cell count, unspecified; F41.9 Anxiety disorder, unspecified; R16.0 Hepatomegaly, not elsewhere classified; Z68.35 Body mass index [BMI] 35.0-35.9, adult; R73.9 Hyperglycemia, unspecified; Z79.891 Long term (current) use of opiate analgesic; Z87.891 Personal history of nicotine dependence; Z86.16 Personal history of COVID-19; Z90.49 Acquired absence of other specified parts of digestive tract
CPT/HCPCS: 36415; 80048; 80053; 80076; 81001; 82962; 83036; 83605; 83690; 83735; 84100; 84145; 85025; 94668; 99283; A4216; J2405

== ENCOUNTER 2024-10-15 21:59 | Inpatient (IN) | payer BC, SELFPAY ==
[2024-10-15 22:01] VITALS: BP 169/103; PULSE 89; RESP 16; TEMP 36.9; O2SAT 99; BMI 35.0
--- NOTE | 2024-10-15 22:18 | CT_ITS ---
PROCEDURE: ABDOMEN/PELVIS W IV CONT ONLY 10/15/2024 REASON FOR EXAM: ABD PAIN TECHNIQUE: Abdomen and pelvis CT with intravenous contrast. Coronal and Sagittal reconstruction series were provided. PATIENT PREPARATION: Per protocol ORAL CONTRAST TYPE: None. AMOUNT: mL One or more dose reduction techniques were used (e.g., Automated exposure control, adjustment of the mA and/or kV according to patient size, use of iterative reconstruction technique. COMPARISON: 09/24/2024 FINDINGS: Lung bases: Lung bases are clear. Liver: Normal size. No mass. Gallbladder: Surgically absent. Biliary stent without biliary ductal dilatation.. Spleen: Normal size. Pancreas: Decreased stranding of the fat surrounding the pancreas consistent with improved pancreatitis. No loculated fluid collection to suggest pseudocyst or abscess. Adrenals: Unremarkable. Kidneys: Unremarkable. Bladder: Unremarkable. Reproductive Organs: Unremarkable. Bowel: No bowel obstruction. Appendix: Unremarkable. Lymph nodes: Unremarkable. Vasculature: The abdominal aorta and IVC are normal. Peritoneum / Retroperitoneum: Unremarkable. Bones: Unremarkable. CT/Abdomen/Pelvis W IV Cont ONLY IMPRESSION: Improved pancreatitis without pseudocyst or abscess. Biliary stent without biliary ductal dilatation. Reading Location: [id number]
--- NOTE | 2024-10-15 22:30 | EX.ED.DYSGE1 ---
HPI History of Present Illness Chief Complaint: Abd Pain Informant: patient Narrative Narrative: Patient is a 44-year-old female with past medical history of hypertension anxiety and pancreatitis. She underwent pancreatic stent placement on September 18. After that she returned to the ER twice with postoperative abdominal pain. At the second visit she had to be admitted secondary to persistent pain despite IV pain medication. At that time she was diagnosed with recurrent acute pancreatitis. She states after a few days in the hospital her symptoms improved and she was discharged home. She states this occurred roughly 2 weeks ago. She reports she has been doing well but that today she noticed lower back pain with some left upper and right lower quadrant abdominal discomfort. She states that there has been no fevers chills nausea vomiting diarrhea or dysuria. However she reports this is how her previous bouts of pancreatitis started and with this concern comes in for evaluation [facility] Medical History Hypertension Pancreatitis Hypertension Anxiety Home Medications ?Medication ?Instructions ?Recorded ?Last Taken ?Type fluoxetine 40 mg capsule 40 mg PO DAILY mental health 09/12/24 Unknown History ipratropium bromide 42 mcg (0.06 1 spray intranasal TID PRN PRN 09/12/24 Unknown History %) nasal spray allergy symptoms amlodipine 10 mg tablet 10 mg PO DAILY 30 days #30 tabs 09/19/24 Unknown Rx losartan 100 mg tablet 100 mg PO DAILY 30 days #30 tabs 09/19/24 Unknown Rx prochlorperazine maleate 5 mg 5 mg PO BID 09/25/24 Unknown History tablet (Compazine) oxycodone 5 mg tablet 10 mg (2 x 5 mg) PO Q6H PRN PRN 09/29/24 Unknown Rx Pain Score 4-10 3 days #12 tabs ferrous gluconate 324 mg (37.5 mg 324 mg PO BID #60 tabs 10/04/24 Unknown Rx iron) tablet pantoprazole 40 mg tablet,delayed 40 mg PO DAILY #30 tabs 10/04/24 Unknown Rx release ondansetron 4 mg disintegrating 4 mg PO TID PRN PRN nausea and 10/16/24 Unknown History tablet vomiting Allergy/AdvReac Type Severity Reaction Status Date / Time No Known Allergies Allergy Verified 10/15/24 22:03 Family History Other Hypertension Surgical History S/P ERCP Hx of cholecystectomy Social History Smoking Status: Former smoker alcohol intake: current alcohol intake frequency: 0-2 drinks per day substance use type: does not use ROS ROS ED Constitutional Constitutional ED: Denies chills or fever(s) ENT ENT ED: Denies sore throat Cardiovascular Cardiovascular: Denies chest pain Respiratory/Chest Respiratory/Chest: Denies cough or dyspnea Gastrointestinal Gastrointestinal: Reports abdominal pain; Denies constipation, diarrhea, nausea or vomiting Genitourinary Genitourinary ED: Denies dysuria, hematuria or urinary frequency Musculoskeletal Musculoskeletal: Reports back pain Integumentary Denies rash Neurologic Neurologic: Denies headache(s) Hematologic/Lymphatic Hematologic/Lymphatic: Denies easy bleeding or easy bruising EXAM Physical Exam Const Vital Signs: 10/15/24 22:01 10/16/24 00:00 Temperature 98.4 F Temperature Source Temporal Pulse Rate 89 85 Respiratory Rate 16 18 Blood Pressure 169/103 H 156/98 H Blood Pressure Mean 125 117 Pulse Ox 99 98 Oxygen Delivery Method Room Air Room Air Positive well nourished, well developed and obese General Appearance ED: well developed; Negative for pallor Nutritional Appearance: obese HEENT HEENT Narrative: Normocephalic atraumatic Eyes PERRL and EOMs intact bilaterally General Eye ED: Negative for scleral icterus Neck supple Neck Narrative: No nuchal rigidity or meningeal signs Resp normal respiratory effort and clear to auscultation bilaterally Cardio regular rate and regular rhythm Rate: other Other Details: Heart is regular rate and rhythm without murmurs rubs or gallops Radial and carotid pulses are equal and symmetric GI non-distended and no masses GI Narrative: Abdomen is soft and nondistended with hypoactive bowel sounds. There is pain with palpation in the midepigastric to left upper quadrant region as well as in the right lower quadrant. However no voluntary guarding or rigidity or pulsatile mass. No fluid wave noted Auscultation: hypoactive bowel sounds Palpation: soft Back/Spine no CVA tenderness Extremity normal to inspection Extremity Narrative: No asymmetric edema no pitting edema negative Homans' sign bilaterally Neuro oriented x3, CN's II-XII intact bilaterally and no sensory deficits noted Sensorium / Orientation: alert Motor Exam: strength 5/5 throughout Psych mental status grossly normal Skin no rashes or lesions noted and no wounds General Skin Exam: Negative for jaundice or pallor MDM MDM MDM Narrative Medical decision making narrative: Patient arrived to the ER hypertensive otherwise with stable vitals. She reported symptoms similar to the onset of her pancreatitis that required recent hospitalization. Secondary to this there is concern for recurrent pancreatitis versus pancreatic abscess or potential infection such as UTI or pyelonephritis or colitis/diverticulitis. Therefore elected to perform repeat laboratory studies as well as CT scan with IV contrast. Patient's white count is slightly elevated at 12.1 there is mild left shift with slight elevation to the neutrophil count of 8.8. However she is afebrile her lactic acid and procalcitonin are normal and therefore I feel this is most likely stress response and do not feel this correlates with an infectious process and therefore there is no need for antibiotic. The patient's liver enzymes have elevated slightly from her previous values roughly 2 weeks ago and her lipase which was 287 has slightly improved at 237. CT scan revealed no sign of infection and reports that the biliary stent is in place and not strictured and that there are signs of pancreatitis present but the seem improved from the previous CAT scan. However the patient is having recurrent pain and I discussed the case with her contour band saw operator vertical Dr. Sotelo. He feels with the elevation to the lipase as well as liver enzymes and slight white count that there is concern that patient is having recurrent pancreatitis or early in a potential infectious process and therefore recommends admission. The case was discussed with the hospitalist secondary to this who agrees to accept the patient for continued care. History & Record Review Discussion w/independent historian: Patient Lab Data Attestation: I reviewed the patient's lab results. Labs: Laboratory Results - last 24 hr 10/15/24 10/15/24 22:09 22:54 WBC 12.1 H RBC 4.54 Hgb 12.2 Hct 37.6 MCV 82.8 MCH 26.9 L MCHC 32.4 RDW Std Deviation 42.4 RDW Coeff of Chelsie 14.1 Plt Count 290 MPV 10.0 Immature Gran % (Auto) 0.400 Neut % (Auto) 72.6 H Lymph % (Auto) 18.5 L [place] % (Auto) 5.0 Eos % (Auto) 3.0 Baso % (Auto) 0.5 Absolute Neuts (auto) 8.8 H Absolute Lymphs (auto) 2.23 Nucleated RBC % 0 ESR 20 Sodium 133 Potassium 4.3 Chloride 99 Carbon Dioxide 22.8 Anion Gap 11 BUN 11 Creatinine 0.48 L Estim Creat Clear Calc 164.88 Est GFR (MDRD) Non-Af 120 BUN/Creatinine Ratio 21.8 H Glucose 117 H Lactic Acid < 1.0 Calcium 10.0 Total Bilirubin 0.55 Direct Bilirubin 0.14 AST 40 H ALT 40 H Alkaline Phosphatase 111 H C-React Prot Ext Range 28.10 H Total Protein 7.3 Albumin 4.2 Globulin 3.1 Lipase 237 H Procalcitonin 0.04 Urine Color Yellow Urine Clarity Clear Urine pH 7.0 Ur Specific [place] 1.005 Urine Protein Negative Urine Glucose (UA) Normal Urine Ketones Negative Urine Occult Blood Negative Urine Nitrite Negative Urine Bilirubin Negative Urine Urobilinogen Normal Ur Leukocyte Esterase Negative Urine RBC 0 SEEN Urine WBC 0-5 SEEN Ur Squamous Epith Cells 10-25 SEEN Urine Bacteria 1+ Urine Mucus 0 SEEN Radiography Diagnostic Testing: Clinical Impression(s) from Imaging Studies Abdomen/Pelvis CT 10/15/24 22:18 IMPRESSION: Improved pancreatitis without pseudocyst or abscess. Biliary stent without biliary ductal dilatation. Reading Location: [id number] Management Discussion w/another healthcare provider: Hospitalist and Mailhouse Operator Discharge Plan Triage Chief Complaint: Abd Pain ED Provider: Ashu Garcia Dx/Rx/DC Orders Clinical Impression: Acute recurrent pancreatitis, Intractable abdominal pain, Hypertension Primary Care Provider: Mary Escobar Disposition Disposition: Acute Care Hospital [facility]
[2024-10-15] MEDS: Ondansetron 4 MG/2 ML Vial IV (22:55)
[2024-10-15] MEDS: 0.9% Normal Saline (1000mL) 1,000 ML 999 ML IV (22:55)
[2024-10-15] MEDS: HYDROmorphone 1 MG/ML Syringe IV (22:55)
[2024-10-15 23:04] LABS: Absolute Lymphocyte Count 2.23 X10^3/uL (0.83-4.51); Absolute Neutrophil Count 8.8 X10^3/uL (2.0-7.7); Basophil# 0.06 X10^3/uL; Basophil% 0.5 % (0-1); Eosinophil# 0.36 X10^3/uL; Hematocrit 37.6 % (37-47); Hemoglobin 12.2 g/dL (12.0-15.0); Lymphocyte # 2.23 X10^3/ul (0.83-4.51); Lymphocyte % 18.5 % (19-41); Mean Corp Hgb Conc 32.4 g/dL (32-36); Mean Corpuscular Hgb 26.9 pg (27.0-32.0); Mean Corpuscular Volume 82.8 fL (81-99); NRBC Flagged by Analyzer 0 % (0-5); Neutrophil # 8.76 X10^3/uL (2.7-7.7); Neutrophil % 72.6 % (47-70); Platelet Count 290 K/mm3 (150-450); RBC Distribution Width CV 14.1 % (11.6-14.6); RBC Distribution Width SD 42.4 fl (35.1-43.9); Red Blood Count 4.54 M/mm3 (4.2-5.4); White Blood Count 12.1 K/mm3 (4.4-11.0)
[2024-10-15 23:07] LABS: Mucous, Urine 0 SEEN /hpf (<or=2+); Red Blood Cells-Urine 0 SEEN /hpf (0-5)
[2024-10-15 23:08] LABS: Color, Urine Yellow (Yellow); Glucose, Dipstick Normal (Normal); Ketone-Dipstick Negative (Negative); Leukocyte Esterase-Dipstick Negative /ul (Negative); Nitrite-Dipstick Negative (Negative); Occult Blood-Urine Negative /ul (Negative); Protein-Dipstick Negative (Negative); Specific Gravity, Urine 1.005 (1.002-1.030); Urine Bilirubin Dipstick Negative (Negative); Urine Clarity Clear (Clear); Urine Urobilinogen Normal (Normal)
[2024-10-15 23:18] LABS: Erythrocyte Sedimentation Rate 20 mm/hr (0-30)
[2024-10-15 23:21] LABS: Bacteria 1+ /hpf (None Seen); Squamous Epithelial Cells - UA 10-25 SEEN /hpf (5-10); White Blood Cells 0-5 SEEN /hpf (0-5)
[2024-10-15 23:40] LABS: Lipase 237 U/L (13-75); Procalcitonin 0.04 ng/mL (<=0.10)
[2024-10-15 23:45] LABS: AST(SGOT) 40 U/L (<=31); Alanine Aminotransfer ALT/SGPT 40 U/L (<=34); Albumin, Serum 4.2 g/dL (3.5-5.0); Alkaline Phosphatase 111 U/L (35-104); Anion Gap 11 (5-15); BUN 11 mg/dL (4-19); BUN/Creat Ratio 21.8 RATIO (10-20); Bilirubin, Direct 0.14 mg/dL (0.00-0.30); Carbon Dioxide 22.8 mmol/L (21.0-32.0); Chloride 99 mmol/L (98-108); Creatinine, Serum 0.48 mg/dL (0.70-1.20); EST Glomerular Filtration Rate 120 (>60); Estimated Creatinine Clearance 164.88 ml/min (50-250); Globulin 3.1 g/dL (2.2-4.2); Glucose 117 mg/dL (70-99); Lactic Acid < 1.0 mmol/L (0.0-2.0); Potassium 4.3 mmol/L (3.3-5.1); Protein, Total 7.3 g/dL (5.9-8.4); Sodium Level 133 mmol/L (133-145); Total Bilirubin 0.55 mg/dL (0.00-1.30)
[2024-10-16] VITALS (16 sets, daily range): BP systolic 146–192; BP diastolic 89–123; PULSE 77–104; RESP 16–18; TEMP 36.5–37; O2SAT 93–100; BMI 35.2
[2024-10-16] MEDS: HYDROmorphone 1 MG/ML Syringe IV ×3 (00:40→06:28)
--- NOTE | 2024-10-16 00:45 | PCM.HP.STD ---
HPI - General General Date of Admission: 10/16/24 Date of Service: 10/16/24 Chief Complaint: Pancreatitis HPI Narrative CASIMIRO PUTNAM, is a 44 F who presents to the emergency room with chief complaint of abdominal pain. Patient has significant past medical history of hypertension, anxiety and pancreatitis. Patient denies alcohol use. on September 18 the patient underwent pancreatic stenting and subsequently return to the emergency room 2 times postoperatively for abdominal pain. During that second ER visit patient was admitted for persistent pain despite IV pain medication. After a few days in the hospital she was discharged back home approximately 2 weeks ago. Today she noticed increased abdominal pain radiating to her lower back. Patient denies fevers, or chills and/or nausea vomiting or diarrhea. She states this is how her previous bout of pancreatitis recurred. CT scan reveals pancreatitis albeit improved from previous CT scan recently done. Lipase is currently elevated to 37. Patient will be admitted for pancreatitis. [facility] Medical History Hypertension Pancreatitis Hypertension Anxiety Home Medications ?Medication ?Instructions ?Recorded ?Last Taken ?Type fluoxetine 40 mg capsule 40 mg PO DAILY mental health 09/12/24 Unknown History ipratropium bromide 42 mcg (0.06 1 spray intranasal TID PRN PRN 09/12/24 Unknown History %) nasal spray allergy symptoms amlodipine 10 mg tablet 10 mg PO DAILY bp 30 days #30 tabs 09/19/24 Unknown Rx losartan 100 mg tablet 100 mg PO DAILY bp 30 days #30 tabs 09/19/24 Unknown Rx prochlorperazine maleate 5 mg 5 mg PO BID PRN nausea and vomiting 09/25/24 Unknown History tablet (Compazine) oxycodone 5 mg tablet 10 mg (2 x 5 mg) PO Q6H PRN PRN 09/29/24 Unknown Rx Pain Score 4-10 3 days #12 tabs ferrous gluconate 324 mg (37.5 mg 324 mg PO BID iron #60 tabs 10/04/24 Unknown Rx iron) tablet pantoprazole 40 mg tablet,delayed 40 mg PO DAILY gerd #30 tabs 10/04/24 Unknown Rx release ondansetron 4 mg disintegrating 4 mg PO TID PRN PRN nausea and 10/16/24 Unknown History tablet vomiting Allergy/AdvReac Type Severity Reaction Status Date / Time No Known Allergies Allergy Verified 10/15/24 22:03 Family History Other Hypertension Surgical History S/P ERCP Hx of cholecystectomy Social History Smoking Status: Former smoker alcohol intake: current alcohol intake frequency: 0-2 drinks per day substance use type: does not use ROS Constitutional Constitutional: Denies chills or fever(s) Eyes Eyes: Denies blurry vision ENT HEENT: Denies abnormal hearing Respiratory/Chest Respiratory/Chest: Denies cough or shortness of breath at rest Gastrointestinal Gastrointestinal: Reports abdominal pain; Denies nausea or vomiting Genitourinary Genitourinary: Denies dysuria Musculoskeletal Musculoskeletal: Reports back pain Integumentary Integumentary: Denies dry skin Neurologic Neurologic: Denies abnormal gait Endocrine Endocrinology: Denies change in body appearance Vital Signs Vital Signs Vital Signs: 10/15/24 22:01 10/16/24 00:00 Temperature 98.4 F Temperature Source Temporal Pulse Rate 89 85 Respiratory Rate 16 18 Blood Pressure 169/103 H 156/98 H Blood Pressure Mean 125 117 Pulse Ox 99 98 Oxygen Delivery Method Room Air Room Air Weight Weight: 204 lb Body Mass Index (BMI) 35.0 Physical Exam Const oriented x3 General Appearance: cooperative and well developed HEENT normocephalic and head/scalp atraumatic Neck no lymphadenopathy Lymph Lymphatic: no lymphadenopathy noted Resp normal respiratory effort, normal air movement and clear to auscultation bilaterally Cardio regular rate, regular rhythm, S1 normal heart sound and S2 normal heart sound GI soft to palpation and non-distended Palpation: tender epigastric Extremity normal capillary refill Skin General Skin Exam: no breakdown Neuro no focal motor deficits and no sensory deficits noted Psych thought process normal, cooperative and affect normal Results Lab / Micro Data 10/15/24 22:54 10/15/24 22:54 Labs: Laboratory Results - last 24 hr 10/15/24 22:09: Urine Color Yellow, Urine Clarity Clear, Urine pH 7.0, Ur Specific [place] 1.005, Urine Protein Negative, Urine Glucose (UA) Normal, Urine Ketones Negative, Urine Occult Blood Negative, Urine Nitrite Negative, Urine Bilirubin Negative, Urine Urobilinogen Normal, Ur Leukocyte Esterase Negative, Urine RBC 0 SEEN, Urine WBC 0-5 SEEN, Ur Squamous Epith Cells 10-25 SEEN, Urine Bacteria 1+, Urine Mucus 0 SEEN 10/15/24 22:54: WBC 12.1 H, RBC 4.54, Hgb 12.2, Hct 37.6, MCV 82.8, MCH 26.9 L, MCHC 32.4, RDW Std Deviation 42.4, RDW Coeff of Chelsie 14.1, Plt Count 290, MPV 10.0, Immature Gran % (Auto) 0.400, Neut % (Auto) 72.6 H, Lymph % (Auto) 18.5 L, [place] % (Auto) 5.0, Eos % (Auto) 3.0, Baso % (Auto) 0.5, Absolute Neuts (auto) 8.8 H, Absolute Lymphs (auto) 2.23, Nucleated RBC % 0, ESR 20, Sodium 133, Potassium 4.3, Chloride 99, Carbon Dioxide 22.8, Anion Gap 11, BUN 11, Creatinine 0.48 L, Estim Creat Clear Calc 164.88, Est GFR (MDRD) Non-Af 120, BUN/Creatinine Ratio 21.8 H, Glucose 117 H, Lactic Acid < 1.0, Calcium 10.0, Total Bilirubin 0.55, Direct Bilirubin 0.14, AST 40 H, ALT 40 H, Alkaline Phosphatase 111 H, C-React Prot Ext Range 28.10 H, Total Protein 7.3, Albumin 4.2, Globulin 3.1, Lipase 237 H, Procalcitonin 0.04 Imaging Radiology Impression Abdomen/Pelvis CT 10/15/24 22:18 IMPRESSION: Improved pancreatitis without pseudocyst or abscess. Biliary stent without biliary ductal dilatation. Reading Location: [facility] Assessment & Plan Assessment/Plan (1) Intractable abdominal pain: (2) Acute recurrent pancreatitis: (3) Hypertension: PLAN: Plan 1 recurrent pancreatitis?admit patient to general medical floor, make n.p.o. IV fluid normal saline at a rate of 125 cc/h and will give Dilaudid 1 mg IV every 3 hours as needed severe pain as patient is not narcotic na?ve. Repeat CBC CMP and lipase in the a.m. patient was seen by Dr. Sotelo and a stent was placed on September 18 and patient is known to him. If patient does not improve then consider consult. 2. Hypertension?monitor vitals overnight consider as needed medication if necessary 3. DVT prophylaxis?low molecular weight heparin Charges/Coding Visit Charges Inpatient E&M: 37816 Init Hosp L2
[2024-10-16] MEDS: 0.9% Normal Saline (1000mL) 1,000 ML 125 ML IV (01:35)
[2024-10-16] MEDS: Ketorolac 15 MG/ML Vial IV ×3 (05:11→17:57)
[2024-10-16] MEDS: Ondansetron 4 MG/2 ML Vial IV ×3 (06:28→22:36)
[2024-10-16 07:07] LABS: Absolute Lymphocyte Count 1.43 X10^3/uL (0.83-4.51); Absolute Neutrophil Count 9.8 X10^3/uL (2.0-7.7); Basophil# 0.04 X10^3/uL; Basophil% 0.3 % (0-1); Eosinophil# 0.26 X10^3/uL; Eosinophils% 2.1 % (0-5); Hematocrit 36.6 % (37-47); Hemoglobin 11.8 g/dL (12.0-15.0); Lymphocyte # 1.43 X10^3/ul (0.83-4.51); Lymphocyte % 11.8 % (19-41); Mean Corp Hgb Conc 32.2 g/dL (32-36); Mean Corpuscular Hgb 26.8 pg (27.0-32.0); Mean Platelet Vol. 9.9 fl (6.2-12.0); NRBC Flagged by Analyzer 0 % (0-5); Neutrophil # 9.75 X10^3/uL (2.7-7.7); Neutrophil % 80.5 % (47-70); Platelet Count 300 K/mm3 (150-450); RBC Distribution Width CV 14.1 % (11.6-14.6); RBC Distribution Width SD 42.6 fl (35.1-43.9); Red Blood Count 4.41 M/mm3 (4.2-5.4); White Blood Count 12.1 K/mm3 (4.4-11.0)
[2024-10-16 07:47] LABS: ALB/GLOB Ratio 1.5 RATIO (0.9-2.4); AST(SGOT) 30 U/L (<=31); Alanine Aminotransfer ALT/SGPT 40 U/L (<=34); Albumin, Serum 4.2 g/dL (3.5-5.0); Alkaline Phosphatase 109 U/L (35-104); Anion Gap 10 (5-15); BUN 8 mg/dL (4-19); BUN/Creat Ratio 19.6 RATIO (10-20); Calcium,Total 9.4 mg/dL (7.6-11.0); Carbon Dioxide 24.1 mmol/L (21.0-32.0); Chloride 99 mmol/L (98-108); Creatinine, Serum 0.41 mg/dL (0.70-1.20); EST Glomerular Filtration Rate 125 (>60); Estimated Creatinine Clearance 193.77 ml/min (50-250); Globulin 2.8 g/dL (2.2-4.2); Glucose 126 mg/dL (70-99); Lipase 147 U/L (13-75); Potassium 4.2 mmol/L (3.3-5.1); Sodium Level 134 mmol/L (133-145); Total Bilirubin 0.52 mg/dL (0.00-1.30)
[2024-10-16] MEDS: Acetaminophen 325 MG Tablet 650 MG PO ×3 (08:36→22:31)
[2024-10-16] MEDS: amLODIPine 10 MG Tablet PO (08:36)
[2024-10-16] MEDS: oxyCODONE 5 MG Tablet PO ×4 (08:42→22:30)
[2024-10-16] MEDS: Pantoprazole Sodium 40 MG Tablet PO (08:50)
[2024-10-16] MEDS: Fluoxetine HCl 40 MG CAPSULE PO (10:14)
[2024-10-16] MEDS: Losartan Potassium 100 MG Tablet PO (10:14)
[2024-10-16] MEDS: Enoxaparin 40 MG/0.4 ML Syringe SC (10:15)
[2024-10-16] MEDS: HYDROmorphone 0.5 MG/0.5 ML SYRINGE IV ×3 (10:21→20:11)
--- NOTE | 2024-10-16 10:39 | PCM.PN.HOSP ---
Reason for Visit Reason for Visit: Diagnoses Essential (primary) hypertension (10/16/24) Acute pancreatitis without necrosis or infection, unspecified (10/16/24) Unspecified abdominal pain (10/16/24) Subjective Subjective Saw patient at bedside this morning. Patient was mildly fatigued appearing and mildly uncomfortable appearing due to ongoing abdominal pain. She does report significant abdominal pain currently as well as some nausea. Denies having any appetite currently. No other acute concerns at this time. Objective Data Objective Data Vital Signs: Vital Signs Temp Pulse Resp BP Pulse Ox O2 Del Method 98.0 F 86 18 192/120 H 97 Room Air 10/16/24 08:29 10/16/24 10:23 10/16/24 10:23 10/16/24 10:23 10/16/24 10:23 10/16/24 10:23 Oxygen Delivery Method Room Air Weight: 93.2 kg Body Mass Index (BMI) 35.2 Intake & Output: Intake and Output for Last 24 Hours 10/14/24 10/15/24 10/16/24 23:59 23:59 23:59 Intake Total 1000 / 1000 Balance 1000 / 1000 Lab / Micro Data 10/16/24 06:24 10/16/24 06:24 Labs: Laboratory Results - last 24 hr 10/15/24 22:09: Urine Color Yellow, Urine Clarity Clear, Urine pH 7.0, Ur Specific [place] 1.005, Urine Protein Negative, Urine Glucose (UA) Normal, Urine Ketones Negative, Urine Occult Blood Negative, Urine Nitrite Negative, Urine Bilirubin Negative, Urine Urobilinogen Normal, Ur Leukocyte Esterase Negative, Urine RBC 0 SEEN, Urine WBC 0-5 SEEN, Ur Squamous Epith Cells 10-25 SEEN, Urine Bacteria 1+, Urine Mucus 0 SEEN 10/15/24 22:54: WBC 12.1 H, RBC 4.54, Hgb 12.2, Hct 37.6, MCV 82.8, MCH 26.9 L, MCHC 32.4, RDW Std Deviation 42.4, RDW Coeff of Chelsie 14.1, Plt Count 290, MPV 10.0, Immature Gran % (Auto) 0.400, Neut % (Auto) 72.6 H, Lymph % (Auto) 18.5 L, [place] % (Auto) 5.0, Eos % (Auto) 3.0, Baso % (Auto) 0.5, Absolute Neuts (auto) 8.8 H, Absolute Lymphs (auto) 2.23, Nucleated RBC % 0, ESR 20, Sodium 133, Potassium 4.3, Chloride 99, Carbon Dioxide 22.8, Anion Gap 11, BUN 11, Creatinine 0.48 L, Estim Creat Clear Calc 164.88, Est GFR (MDRD) Non-Af 120, BUN/Creatinine Ratio 21.8 H, Glucose 117 H, Lactic Acid < 1.0, Calcium 10.0, Total Bilirubin 0.55, Direct Bilirubin 0.14, AST 40 H, ALT 40 H, Alkaline Phosphatase 111 H, C-React Prot Ext Range 28.10 H, Total Protein 7.3, Albumin 4.2, Globulin 3.1, Lipase 237 H, Procalcitonin 0.04 10/16/24 06:24: WBC 12.1 H, RBC 4.41, Hgb 11.8 L, Hct 36.6 L, MCV 83.0, MCH 26.8 L, MCHC 32.2, RDW Std Deviation 42.6, RDW Coeff of [place]sie 14.1, Plt Count 300, MPV 9.9, Immature Gran % (Auto) 0.300, Neut % (Auto) 80.5 H, Lymph % (Auto) 11.8 L, [place] % (Auto) 5.0, Eos % (Auto) 2.1, Baso % (Auto) 0.3, Absolute Neuts (auto) 9.8 H, Absolute Lymphs (auto) 1.43, Nucleated RBC % 0, Sodium 134, Potassium 4.2, Chloride 99, Carbon Dioxide 24.1, Anion Gap 10, BUN 8, Creatinine 0.41 L, Estim Creat Clear Calc 193.77, Est GFR (MDRD) Non-Af 125, BUN/Creatinine Ratio 19.6, Glucose 126 H, Calcium 9.4, Total Bilirubin 0.52, AST 30, ALT 40 H, Alkaline Phosphatase 109 H, Total Protein 7.0, Albumin 4.2, Globulin 2.8, Albumin/Globulin Ratio 1.5, Lipase 147 H Radiography Diagnostic Testing: Radiology Impression Abdomen/Pelvis CT 10/15/24 22:18 IMPRESSION: Improved pancreatitis without pseudocyst or abscess. Biliary stent without biliary ductal dilatation. Reading Location: [facility] [[email or web address] Physical Exam Const alert and oriented x3 Constitutional Narrative: Middle-aged female, class II obesity, mildly fatigued appearing, mildly uncomfortable appearing due to ongoing abdominal pain and nausea, otherwise sitting back in bed and conversing normally. General Appearance: cooperative HEENT normocephalic, head/scalp atraumatic, hearing grossly normal bilaterally, nasal mucous membranes and turbinates normal and moist oral mucous membranes Eyes PERRL, EOMs intact bilaterally and conjunctivae normal Neck full ROM Chest inspection of chest normal Resp normal respiratory effort, normal air movement, no use of accessory muscles and clear to auscultation bilaterally Cardio regular rate, regular rhythm, no murmurs and peripheral pulses 2+ throughout GI GI Narrative: Mild to moderate diffuse abdominal tenderness to palpation noted. Abdomen otherwise soft and nondistended. No guarding or rebound tenderness noted. Back/Spine normal ROM Extremity normal to inspection, full ROM and no pedal edema Skin no rashes or lesions noted Psych mental status grossly normal Mood & Affect: anxious Assessment & Plan Assessment/Plan (1) Acute recurrent pancreatitis: PLAN: Plan Patient is a 44-year-old female who presented to [facility] ED on 10/16/2024 with recurrent abdominal pain. 1. Recurrent acute pancreatitis ? GI consulted. Hospitalized for initial pancreatitis episode at the end of August. Had ERCP done with choledocholithiasis that was removed, biliary stricture that was dilated and temporary stent placed. Hospitalized again from 09/25-09/29 for recurrent acute pancreatitis; GI followed and patient improved with conservative management and IV antibiotics. Did well for a few weeks but then began to have pain again leading to this admission. CT abdomen pelvis showed improved pancreatitis without pseudocyst or abscess and biliary stent without biliary ductal dilatation. Lipase 237, notably was 287 on 09/25. Was discussed with Dr. Sotelo who recommended admission for further evaluation. Will continue treatment for pancreatitis with IV fluids, nausea and pain control for now. Okay for clear liquid diet. Appreciate further GI recs. 2. Mild leukocytosis ? WBC count 12 on admission. Suspect reactive in setting of pancreatitis as noted above. Afebrile and hemodynamically stable, low concern for secondary infection. Will hold on antibiotics at this time. Monitor daily CBC. 3. Hypertension ? Hypertensive to the 170s to 180s on admit. Continue home amlodipine and losartan. Pain control as noted above. IV hydralazine ordered for systolic BP greater than 170 as well. 4. Mild chronic iron deficiency anemia ? Hemoglobin stable at baseline 11-12. Continue home iron supplement. 5. GERD ? Continue home PPI. 6. Class II obesity ? BMI 35 on admit. Encouraged weight loss. DVT prophylaxis: Lovenox CODE STATUS: Full code, verified Expected disposition: Home, TBD Total clinical time spent by myself addressing the patient's medical issues, reviewing all the data, and collaborating with patient's care team: 35 minutes. Charges/Coding Visit Charges Inpatient E&M: 41425 Subs Hosp L2
--- NOTE | 2024-10-16 10:55 | CASEMGMT ---
PARAM HENDRIX Readmission Note Previous Admission: 09/25/24-09/29/24 Diagnosis: acute pancreatitis resolved DC Disposition: Home Current Admission: Admitted 10/16/24 Current Diagnosis: pancreatitis Pt on previous admission was admitted and given aggressive IVF, IV atb and was NPO except for sips and chips. Pt lipase was 287. Pt slowly improved and GI decided to hold off on ERCP since improving. Pt was on a regular diet x24 hours prior to dc home. Pt was dc'd on po atb and pain medication with f/u with PCP and Dr. Sotelo in 1 wk. Pt presented to the ER this admission with lower back pain and left upper and right lower quadrant abdominal discomfort. CT scan revealed no signs of infection and reports the biliary stent is in place without stricture. Signs of pancreatitis seemed improved from previous CT. GI with a concern of pt having recurrent pancreatitis or early in a potential infectious process; therefore, pt was admitted. PARAM HENDRIX into pt room, pt sitting up in bed in no distress. Pt states she did obtain and take her atb that was given at dc. Pt also did see Dr. Sotelo as well as PCP in proper timeframe. Pt denies any homegoing needs at this time. DC Plan: Home
[2024-10-16] MEDS: Ferrous Gluconate 324 MG Tablet PO (11:26)
[2024-10-16] MEDS: hydrALAZINE 20 MG/ML Vial 10 MG IV ×2 (11:26→20:23)
[2024-10-16] MEDS: 0.9% Saline Lock 10 ML Syringe IV ×2 (14:19→20:26)
[2024-10-16] MEDS: MELATONIN 3 MG TABLET PO (21:00)
[2024-10-16] MEDS: proCHLORPERazine 10 MG/2 ML Vial IV (21:00)
[2024-10-17] MEDS: 0.9% Saline Lock 10 ML Syringe IV ×3 (00:41→05:21)
[2024-10-17] MEDS: HYDROmorphone 0.5 MG/0.5 ML SYRINGE IV ×5 (00:42→20:04)
[2024-10-17] MEDS: Ketorolac 15 MG/ML Vial IV ×4 (00:42→20:11)
[2024-10-17] MEDS: oxyCODONE 5 MG Tablet PO ×4 (03:39→17:24)
[2024-10-17] MEDS: proCHLORPERazine 10 MG/2 ML Vial IV (03:48)
[2024-10-17] MEDS: Senna/Docusate Sodium 1 Tablet PO (03:48)
[2024-10-17 03:55] VITALS: BP 136/85; PULSE 87; RESP 16; TEMP 36.8; O2SAT 97
[2024-10-17 07:30] VITALS: O2SAT 98
[2024-10-17] MEDS: Fluoxetine HCl 40 MG CAPSULE PO (07:30)
[2024-10-17] MEDS: amLODIPine 10 MG Tablet PO (07:30)
[2024-10-17] MEDS: Pantoprazole Sodium 40 MG Tablet PO ×2 (07:30→22:35)
[2024-10-17] MEDS: Losartan Potassium 100 MG Tablet PO (07:30)
[2024-10-17 08:35] VITALS: BP 132/83; PULSE 98; RESP 16; TEMP 36.8; O2SAT 96
[2024-10-17 08:37] LABS: Hematocrit 38.7 % (37-47); Hemoglobin 12.4 g/dL (12.0-15.0); Mean Corpuscular Hgb 26.4 pg (27.0-32.0); Mean Corpuscular Volume 82.5 fL (81-99); Platelet Count 385 K/mm3 (150-450); RBC Distribution Width CV 14.9 % (11.6-14.6); RBC Distribution Width SD 44.4 fl (35.1-43.9); Red Blood Count 4.69 M/mm3 (4.2-5.4); White Blood Count 21.2 K/mm3 (4.4-11.0)
[2024-10-17 09:29] LABS: ALB/GLOB Ratio 1.3 RATIO (0.9-2.4); AST(SGOT) 21 U/L (<=31); Alanine Aminotransfer ALT/SGPT 33 U/L (<=34); Albumin, Serum 4.2 g/dL (3.5-5.0); Alkaline Phosphatase 120 U/L (35-104); Anion Gap 12 (5-15); BUN 13 mg/dL (4-19); BUN/Creat Ratio 25.2 RATIO (10-20); Calcium,Total 10.4 mg/dL (7.6-11.0); Chloride 93 mmol/L (98-108); Creatinine, Serum 0.51 mg/dL (0.70-1.20); EST Glomerular Filtration Rate 118 (>60); Estimated Creatinine Clearance 155.78 ml/min (50-250); Globulin 3.3 g/dL (2.2-4.2); Glucose 125 mg/dL (70-99); Potassium 4.4 mmol/L (3.3-5.1); Protein, Total 7.5 g/dL (5.9-8.4); Sodium Level 128 mmol/L (133-145); Total Bilirubin 0.76 mg/dL (0.00-1.30)
[2024-10-17] MEDS: Enoxaparin 40 MG/0.4 ML Syringe SC (09:50)
[2024-10-17] MEDS: Ondansetron 4 MG/2 ML Vial IV (09:54)
[2024-10-17] MEDS: 0.9% Normal Saline (1000mL) 1,000 ML 500 ML IV ×2 (10:46→13:12)
[2024-10-17 11:10] VITALS: BP 128/84; PULSE 95; RESP 16; TEMP 36.8; O2SAT 96
--- NOTE | 2024-10-17 11:26 | PCM.PN.HOSP ---
Reason for Visit Reason for Visit: Diagnoses Essential (primary) hypertension (10/16/24) Acute pancreatitis without necrosis or infection, unspecified (10/16/24) Unspecified abdominal pain (10/16/24) Subjective Subjective Saw patient at bedside this morning. Patient continues to report significant abdominal pain and nausea. States she does not have much of an appetite at all and has not tried eating anything yet. States the pain medications have only been somewhat helpful for pain control. Notably on exam, her abdomen is soft and nondistended with minimal tenderness to palpation. No other new concerns today. Objective Data Objective Data Vital Signs: Vital Signs Temp Pulse Resp BP Pulse Ox O2 Del Method 98.3 F 95 16 128/84 H 96 Room Air 10/17/24 11:10 10/17/24 11:10 10/17/24 11:10 10/17/24 11:10 10/17/24 11:10 10/17/24 11:10 Oxygen Delivery Method Room Air Weight: 93.2 kg Body Mass Index (BMI) 35.2 Intake & Output: Intake and Output for Last 24 Hours 10/15/24 10/16/24 10/17/24 23:59 23:59 23:59 Intake Total 2850 / 2850 100 / 100 Balance 2850 / 2850 100 / 100 Lab / Micro Data 10/17/24 07:31 10/17/24 07:31 Labs: Laboratory Results - last 24 hr 10/17/24 07:31: WBC 21.2 H, RBC 4.69, Hgb 12.4, Hct 38.7, MCV 82.5, MCH 26.4 L, MCHC 32.0, RDW Std Deviation 44.4 H, RDW Coeff of Chelsie 14.9 H, Plt Count 385, MPV 10.0, Sodium 128 L, Potassium 4.4, Chloride 93 L, Carbon Dioxide 23.0, Anion Gap 12, BUN 13, Creatinine 0.51 L, Estim Creat Clear Calc 155.78, Est GFR (MDRD) Non-Af 118, BUN/Creatinine Ratio 25.2 H, Glucose 125 H, Calcium 10.4, Total Bilirubin 0.76, AST 21, ALT 33, Alkaline Phosphatase 120 H, Total Protein 7.5, Albumin 4.2, Globulin 3.3, Albumin/Globulin Ratio 1.3 Physical Exam Const alert and oriented x3 Constitutional Narrative: Middle-aged female, class II obesity, mildly fatigued appearing, mildly uncomfortable appearing due to ongoing abdominal pain and nausea, otherwise sitting back in bed and conversing normally. General Appearance: cooperative HEENT normocephalic, head/scalp atraumatic, hearing grossly normal bilaterally, nasal mucous membranes and turbinates normal and moist oral mucous membranes Eyes PERRL, EOMs intact bilaterally and conjunctivae normal Neck full ROM Chest inspection of chest normal Resp normal respiratory effort, normal air movement, no use of accessory muscles and clear to auscultation bilaterally Cardio regular rate, regular rhythm, no murmurs and peripheral pulses 2+ throughout GI GI Narrative: Abdomen soft and nondistended with very mild abdominal tenderness in epigastric and right upper and lower quadrants diffusely. Back/Spine normal ROM Extremity normal to inspection, full ROM and no pedal edema Skin no rashes or lesions noted Psych mental status grossly normal Mood & Affect: anxious Assessment & Plan Assessment/Plan (1) Acute recurrent pancreatitis: PLAN: Plan Patient is a 44-year-old female who presented to [facility] ED on 10/16/2024 with recurrent abdominal pain. 1. Recurrent acute pancreatitis ? GI consulted. Hospitalized for initial pancreatitis episode at the end of August. Had ERCP done with choledocholithiasis that was removed, biliary stricture that was dilated and temporary stent placed. Hospitalized again from 09/25-09/29 for recurrent acute pancreatitis; GI followed and patient improved with conservative management and IV antibiotics. Did well for a few weeks but then began to have pain again leading to this admission. CT abdomen pelvis showed improved pancreatitis without pseudocyst or abscess and biliary stent without biliary ductal dilatation. Lipase 237, notably was 287 on 09/25. Was discussed with Dr. Sotelo who recommended admission for further evaluation. Will continue treatment for pancreatitis with IV fluids, nausea and pain control for now. Okay for clear liquid diet. Appreciate further GI recs. 2. Leukocytosis ? WBC count 12 on admission, worsened to 21 on hospital day 2. Still suspect reactive in the setting of pancreatitis as noted above. Has been afebrile and hemodynamically stable, low concern for secondary infection so we will continue to hold on antibiotics. Monitor daily CBC. 3. Hyponatremia ? Sodium 128, chloride 93 on hospital day 2, down from sodium 134 and chloride 99. Suspect due to dehydration from poor p.o. intake, though patient notably did receive significant IV normal saline on admission. Will give another 1.5 L of IV normal saline today and continue to monitor BMP daily. 4. Hypertension ? Hypertensive to the 170s to 180s on admit. Continue home amlodipine and losartan. Pain control as noted above. IV hydralazine ordered for systolic BP greater than 170 as well. 5. Mild chronic iron deficiency anemia ? Hemoglobin stable at baseline 11-12. Continue home iron supplement. 6. GERD ? Continue home PPI. 7. Class II obesity ? BMI 35 on admit. Encouraged weight loss. DVT prophylaxis: Lovenox CODE STATUS: Full code, verified Expected disposition: Home, TBD Total clinical time spent by myself addressing the patient's medical issues, reviewing all the data, and collaborating with patient's care team: 35 minutes. Charges/Coding Visit Charges Inpatient E&M: 25229 Subs Hosp L2
[2024-10-17] MEDS: Ferrous Gluconate 324 MG Tablet PO (11:44)
[2024-10-17 14:57] VITALS: BP 142/85; PULSE 98; RESP 16; TEMP 36.9; O2SAT 93
--- NOTE | 2024-10-17 18:46 | EX.PCM.CON.G ---
HPI Consult Data Date of Consult: 10/17/24 HPI Narrative Reason for Consultation: Acute pancreatitis HPI Narrative: CASIMIRO PUTNAM, is a 44 F who originally presented to [facility] ED on 09/12/2024 with abdominal pain. Patient discharged home in stable condition on 09/19. She came back to the hospital on 09/25/2024 with worsening abdominal pain and again an increased lipase at 249. Initially when she presented to the hospital back on 09/12/[address] abdomen pelvis on admit with findings concerning for pancreatitis. Lipase 1599. Initially there was no clear cause for pancreatitis. She admitted to minimal alcohol use, triglyceride level normal and LFTs fairly unremarkable. Attempted to advance diet to full liquids on 09/16 but patient reported significantly more pain. Repeat CT abdomen pelvis redemonstrated acute/uncomplicated pancreatitis. Lipase level was rechecked and did normalize on 09/16. MRCP on 09/17 showed small but abnormal amount of fluid around the pancreas; otherwise showed absent gallbladder and no evidence of choledocholithiasis. I was consulted due to the appearance of his stricture at the distal common bile duct. She underwent ERCP and was noted to have a duodenal diverticulum along with however, choledocholithiasis and biliary stricture thought to be secondary to possible chronic pancreatitis with dilated main bile duct and common bile duct; the choledocholithiasis was complete removal was accomplished by biliary sphincterotomy and balloon extraction and 1 temporary stent was placed in the common bile duct. Patient did well post ERCP, was stable for discharge home on 09/19. I ordered so ordered a notably did have extensive lab workup sent to rule out additional causes of pancreatitis, except for hereditary pancreatitis and PHOSPHATIDYLETHANOL (with the parameters that PEth levels in excess of 20 ng/mL are considered evidence of moderate to heavy ethanol consumption.) Recently she followed up in office with nurse practitioner Daniella Lawler and was doing okay. She reports that she been doing well but that today she noticed lower back pain with some left upper and right lower quadrant abdominal discomfort. She states that there has been no fevers chills nausea vomiting diarrhea or dysuria. However she reports this is how her previous bouts of pancreatitis started and with this concern comes in for evaluation. She was recently started on phentermine for weight loss and has been on 2 new blood pressure medicines along with her medicine for depression. 10/17/24 07:31: WBC 21.2 H, RBC 4.69, Hgb 12.4, Hct 38.7, MCV 82.5, MCH 26.4 L, MCHC 32.0, RDW Std Deviation 44.4 H, RDW Coeff of Chelsie 14.9 H, Plt Count 385, Sodium 128 L, Potassium 4.4, Chloride 93 L, Carbon Dioxide 23.0, Anion Gap 12, BUN 13, Creatinine 0.51 L, Glucose 125 H, Calcium 10.4, Total Bilirubin 0.76, AST 21, ALT 33, Alkaline Phosphatase 120 H, Total Protein 7.5, Albumin 4.2, Globulin 3.3, Albumin/Globulin Ratio 1.3, lipase 237 10/15/2024 :CT/Abdomen/Pelvis W IV Cont ONLY IMPRESSION: Improved pancreatitis without pseudocyst or abscess. Biliary stent without biliary ductal dilatation. [facility] Medical History Hypertension Pancreatitis Hypertension Anxiety Home Medications ?Medication ?Instructions ?Recorded ?Last Taken ?Type fluoxetine 40 mg capsule 40 mg PO DAILY mental health 09/12/24 Unknown History ipratropium bromide 42 mcg (0.06 1 spray intranasal TID PRN PRN 09/12/24 Unknown History %) nasal spray allergy symptoms amlodipine 10 mg tablet 10 mg PO DAILY bp 30 days #30 tabs 09/19/24 Unknown Rx losartan 100 mg tablet 100 mg PO DAILY bp 30 days #30 tabs 09/19/24 Unknown Rx prochlorperazine maleate 5 mg 5 mg PO BID PRN nausea and vomiting 09/25/24 Unknown History tablet (Compazine) oxycodone 5 mg tablet 10 mg (2 x 5 mg) PO Q6H PRN PRN 09/29/24 Unknown Rx Pain Score 4-10 3 days #12 tabs ferrous gluconate 324 mg (37.5 mg 324 mg PO BID iron #60 tabs 10/04/24 Unknown Rx iron) tablet pantoprazole 40 mg tablet,delayed 40 mg PO DAILY gerd #30 tabs 10/04/24 Unknown Rx release ondansetron 4 mg disintegrating 4 mg PO TID PRN PRN nausea and 10/16/24 Unknown History tablet vomiting phentermine 37.5 mg tablet 37.5 mg PO DAILY diet 10/16/24 Unknown History Allergy/AdvReac Type Severity Reaction Status Date / Time No Known Allergies Allergy Verified 10/15/24 22:03 Family History Other Hypertension Surgical History S/P ERCP Hx of cholecystectomy Social History Smoking Status: Former smoker alcohol intake: current alcohol intake frequency: 0-2 drinks per day substance use type: does not use ROS Constitutional Constitutional: Denies fatigue, fever(s), poor appetite, weight gain or weight loss Gastrointestinal Gastrointestinal: Reports abdominal pain; Denies belching, bloating, change in bowel habits, change in stool character, chewing difficulty, coffee ground emesis, constipation, cramping, diarrhea, dyspepsia, dysphagia, early satiety, excessive flatus, fecal incontinence, heartburn, hematemesis, hematochezia, hemorrhoids, loose stools, melena, nausea, odynophagia, rectal bleeding, tenesmus, vomiting or weight changes Physical Exam Const alert, oriented x3, no apparent distress and healthy appearing General Appearance: cooperative GI normal to inspection, nondistended, normoactive bowel sounds, soft to palpation, non-tender and non-distended Percussion: normal to percussion Rectal Exam: deferred Lab / Micro Data 10/17/24 07:31 10/17/24 07:31 Labs: Laboratory Results - last 24 hr 10/17/24 07:31: WBC 21.2 H, RBC 4.69, Hgb 12.4, Hct 38.7, MCV 82.5, MCH 26.4 L, MCHC 32.0, RDW Std Deviation 44.4 H, RDW Coeff of Chelsie 14.9 H, Plt Count 385, MPV 10.0, Sodium 128 L, Potassium 4.4, Chloride 93 L, Carbon Dioxide 23.0, Anion Gap 12, BUN 13, Creatinine 0.51 L, Estim Creat Clear Calc 155.78, Est GFR (MDRD) Non-Af 118, BUN/Creatinine Ratio 25.2 H, Glucose 125 H, Calcium 10.4, Total Bilirubin 0.76, AST 21, ALT 33, Alkaline Phosphatase 120 H, Total Protein 7.5, Albumin 4.2, Globulin 3.3, Albumin/Globulin Ratio 1.3 Assessment & Plan Assessment/Plan (1) Acute pancreatitis: (2) Hypertension: (3) Leukocytosis: PLAN: Plan 43-year-old with history of cholecystitis status post cholecystectomy with history of acute recurrent pancreatitis. She has no history of hypertriglyceridemia, cystic fibrosis, IgG associated disease, multiple endocrine neoplasia, celiac disease, vasculitis. However MRCP did not show any signs of pancreatic divisum.Her initial episode of pancreatitis started more than 4 years ago when she suffered from 4 episodes of acute pancreatitis and went on to have a cholecystectomy. She underwent ERCP. she had sphincterotomy with stone removal and stent placement. She has never been on pancreatic enzymes and she has never had an endoscopic ultrasound.The pancreatic parenchyma was normal in signal and appearance without mass or?pancreatic duct?dilatation on these tests. Her symptoms have increased in severity over the past year. She has no signs and symptoms of chronic pancreatitis. Recurrent acute pancreatitis is defined as more than 2 episodes of a sudden inflammation of the pancreas. Clinical symptoms usually start with?epigastric pain?that sometimes spreads to the back and is associated with nausea, vomiting, and fever. Most cases of acute pancreatitis result from?biliary stone disease?and longstanding alcohol consumption. Workup including: [facility] comprehensive, workup for cystic fibrosis, celiac disease, IgG4 associated, vasculitis, HIV, repeat triglycerides, inflammatory bowel disease, hereditary pancreatitis: Three-gene Profile (PRSS1, SPINK1, CFTR), Phosphatidylethanol (PEth)-lab a bit but she has any excessive alcohol with the last 3 months. I told her mom that she will likely need endoscopic ultrasound to definitively look for any signs of chronic pancreatitis and possibly need pancreatic biopsy. Recommendations: - Lactated Ringer's at 250 cc an hour - Boost or Ensure 3 times daily - Metoclopramide 10 mg every 8 hours - Phosphatidylethanol (PEth) Charges/Coding Visit Charges Inpatient E&M: 40710 Init Hosp L3
[2024-10-17 19:53] LABS: Erythrocyte Sedimentation Rate 44 mm/hr (0-30)
[2024-10-17] MEDS: Metoclopramide 10 MG/2 ML Vial IV (19:54)
[2024-10-17] MEDS: Lactated Ringers 1,000 ML 250 ML IV (20:02)
[2024-10-17] MEDS: Senna/Docusate Sodium 1 Tablet 2 TABLET PO (20:03)
[2024-10-17 20:11] LABS: Lipase 131 U/L (13-75)
[2024-10-17] MEDS: Acetaminophen 325 MG Tablet 650 MG PO (20:22)
[2024-10-17 20:29] LABS: Lactic Acid < 1.0 mmol/L (0.0-2.0)
[2024-10-17 21:00] VITALS: BP 161/96; PULSE 103; RESP 16; TEMP 37.9; O2SAT 95
[2024-10-18] MEDS: MELATONIN 3 MG TABLET PO (00:15)
[2024-10-18] MEDS: Lactated Ringers 1,000 ML 250 ML IV ×5 (00:15→20:15)
[2024-10-18] MEDS: HYDROmorphone 0.5 MG/0.5 ML SYRINGE IV ×4 (00:16→20:16)
[2024-10-18] MEDS: Ondansetron 4 MG/2 ML Vial IV ×2 (00:18→10:09)
[2024-10-18 02:57] LABS: Mucous, Urine 0 SEEN /hpf (<or=2+); Red Blood Cells-Urine 0 SEEN /hpf (0-5)
[2024-10-18] MEDS: Ketorolac 15 MG/ML Vial IV ×4 (02:59→23:21)
[2024-10-18 03:00] VITALS: BP 127/66; PULSE 92; RESP 16; TEMP 36.8; O2SAT 96
[2024-10-18 03:00] LABS: Color, Urine Yellow (Yellow); Glucose, Dipstick Normal (Normal); Ketone-Dipstick 5 mg/dl (Negative); Leukocyte Esterase-Dipstick Negative /ul (Negative); Nitrite-Dipstick Negative (Negative); Occult Blood-Urine Negative /ul (Negative); Specific Gravity, Urine 1.015 (1.002-1.030); Urine Bilirubin Dipstick Negative (Negative); Urine Clarity Clear (Clear); Urine Urobilinogen Normal (Normal)
[2024-10-18 03:10] LABS: Amorphous Sediment 1+; Bacteria 2+ /hpf (None Seen); Squamous Epithelial Cells - UA 0-5 SEEN /hpf (5-10); White Blood Cells 0-5 SEEN /hpf (0-5)
[2024-10-18] MEDS: proCHLORPERazine 10 MG/2 ML Vial IV ×2 (03:11→16:48)
[2024-10-18 03:33] LABS: Protein, Urine (Random) 11.8 mg/dL (0.0-12.0)
--- NOTE | 2024-10-18 03:57 | PCM.HOSP.N ---
Hospitalist Note Patient with onset fever. UA not severe appearing with UCx pending, CXR requested. Given review of history and prior ERCP with stent 09/2024 with now presenation with pain, some concern for possible etiology, will also obtain Bld Cx x 2 and start IV zosyn.
--- NOTE | 2024-10-18 05:15 | RAD_ITS ---
PROCEDURE: CHEST PA AND LATERAL 10/18/2024 REASON FOR EXAM: FEVER TECHNIQUE: Frontal and lateral views of the chest. FINDINGS: The lungs appear clear. Pulmonary vascularity appears within limits. No pleural effusion. The cardiac and mediastinal contours appear within limits. Visualized osseous structures appear within limits. Status post cholecystectomy with partially imaged biliary stent noted. RAD/Chest PA and Lateral IMPRESSION: No evidence of acute disease. Reading Location: [id number]
[2024-10-18] MEDS: Piperacil/Tazobactam 3.375 GM Q8 PREMIX IV ×3 (06:42→23:18)
[2024-10-18] MEDS: Metoclopramide 10 MG/2 ML Vial IV ×3 (06:44→20:16)
[2024-10-18] MEDS: 0.9% Saline Lock 10 ML Syringe IV ×2 (06:46→20:19)
[2024-10-18 07:18] VITALS: O2SAT 94
[2024-10-18 07:50] VITALS: BP 115/75; PULSE 90; RESP 16; TEMP 37.1; O2SAT 94
[2024-10-18] MEDS: Enoxaparin 40 MG/0.4 ML Syringe SC (07:57)
[2024-10-18] MEDS: Losartan Potassium 100 MG Tablet PO (07:57)
[2024-10-18] MEDS: Pantoprazole Sodium 40 MG Tablet PO ×2 (07:57→20:16)
[2024-10-18] MEDS: Senna/Docusate Sodium 1 Tablet 2 TABLET PO ×2 (07:57→20:16)
[2024-10-18] MEDS: amLODIPine 10 MG Tablet PO (07:57)
[2024-10-18 08:05] LABS: Hematocrit 33.5 % (37-47); Hemoglobin 10.7 g/dL (12.0-15.0); Mean Corp Hgb Conc 31.9 g/dL (32-36); Mean Corpuscular Hgb 26.6 pg (27.0-32.0); Mean Corpuscular Volume 83.1 fL (81-99); Platelet Count 276 K/mm3 (150-450); RBC Distribution Width CV 14.9 % (11.6-14.6); RBC Distribution Width SD 45.1 fl (35.1-43.9); Red Blood Count 4.03 M/mm3 (4.2-5.4); White Blood Count 12.5 K/mm3 (4.4-11.0)
[2024-10-18 08:42] LABS: AST(SGOT) 24 U/L (<=31); Alanine Aminotransfer ALT/SGPT 21 U/L (<=34); Albumin, Serum 3.5 g/dL (3.5-5.0); Alkaline Phosphatase 106 U/L (35-104); Anion Gap 12 (5-15); BUN 17 mg/dL (4-19); BUN/Creat Ratio 24.9 RATIO (10-20); Calcium,Total 9.9 mg/dL (7.6-11.0); Carbon Dioxide 18.7 mmol/L (21.0-32.0); Chloride 98 mmol/L (98-108); Creatinine, Serum 0.69 mg/dL (0.70-1.20); EST Glomerular Filtration Rate 110 (>60); Estimated Creatinine Clearance 115.14 ml/min (50-250); Globulin 3.5 g/dL (2.2-4.2); Glucose 109 mg/dL (70-99); Potassium 4.5 mmol/L (3.3-5.1); Protein, Total 7.1 g/dL (5.9-8.4); Sodium Level 129 mmol/L (133-145); Total Bilirubin 0.42 mg/dL (0.00-1.30)
[2024-10-18] MEDS: oxyCODONE 5 MG Tablet PO ×2 (10:09→16:48)
--- NOTE | 2024-10-18 10:23 | PCM.PN.HOSP ---
Reason for Visit Reason for Visit: Diagnoses Elevated white blood cell count, unspecified (10/16/24) Essential (primary) hypertension (10/16/24) Acute pancreatitis without necrosis or infection, unspecified (10/16/24) Unspecified abdominal pain (10/16/24) Subjective Subjective Saw patient at bedside this morning. Patient appeared similar today to previous days. Laying back in bed and fatigued and mildly uncomfortable appearing due to ongoing pain and nausea. Had clear liquids on her tray that had not been touched and she stated she continued to have minimal appetite. Had been started on new medications by Dr. Sotelo yesterday evening and patient reported feeling maybe mildly improved this morning but fairly similar to previous. No other new concerns today. Objective Data Objective Data Vital Signs: Vital Signs Temp Pulse Resp BP Pulse Ox O2 Del Method 98.8 F 90 16 115/75 94 Room Air 10/18/24 07:50 10/18/24 07:50 10/18/24 07:50 10/18/24 07:50 10/18/24 07:50 10/18/24 07:50 Oxygen Delivery Method Room Air Weight: 93.2 kg Body Mass Index (BMI) 35.2 Intake & Output: Intake and Output for Last 24 Hours 10/16/24 10/17/24 10/18/24 23:59 23:59 23:59 Intake Total 2850 / 2850 2200 / 2200 2983.33 / 2983.33 Balance 2850 / 2850 2200 / 2200 2983.33 / 2983.33 Lab / Micro Data 10/18/24 07:15 10/18/24 07:15 Labs: Laboratory Results - last 24 hr 10/17/24 07:31: C-React Prot Ext Range 188.00 H, Lipase 131 H 10/17/24 17:31: ESR 44 H 10/17/24 19:50: Lactic Acid < 1.0 10/18/24 02:19: Urine Color Yellow, Urine Clarity Clear, Urine pH 6.0, Ur Specific [place] 1.015, Urine Protein TNP, Urine Glucose (UA) Normal, Urine Ketones 5 H, Urine Occult Blood Negative, Urine Nitrite Negative, Urine Bilirubin Negative, Urine Urobilinogen Normal, Ur Leukocyte Esterase Negative, Urine RBC 0 SEEN, Urine WBC 0-5 SEEN, Ur Squamous Epith Cells 0-5 SEEN, Amorphous Sediment 1+, Urine Bacteria 2+, Urine Mucus 0 SEEN, U Random Total Protein 11.8 10/18/24 07:15: WBC 12.5 H, RBC 4.03 L, Hgb 10.7 L, Hct 33.5 L, MCV 83.1, MCH 26.6 L, MCHC 31.9 L, RDW Std Deviation 45.1 H, RDW Coeff of Chelsie 14.9 H, Plt Count 276, MPV 10.0, Sodium 129 L, Potassium 4.5, Chloride 98, Carbon Dioxide 18.7 L, Anion Gap 12, BUN 17, Creatinine 0.69 L, Estim Creat Clear Calc 115.14, Est GFR (MDRD) Non-Af 110, BUN/Creatinine Ratio 24.9 H, Glucose 109 H, Calcium 9.9, Total Bilirubin 0.42, AST 24, ALT 21, Alkaline Phosphatase 106 H, Total Protein 7.1, Albumin 3.5, Globulin 3.5, Albumin/Globulin Ratio 1.0 Radiography Diagnostic Testing: Radiology Impression Chest X-Ray 10/18/24 05:15 IMPRESSION: No evidence of acute disease. Reading Location: [facility] Physical Exam Const alert and oriented x3 Constitutional Narrative: Middle-aged female, class II obesity, mildly fatigued appearing, mildly uncomfortable appearing due to ongoing abdominal pain and nausea, otherwise sitting back in bed and conversing normally. Stable. General Appearance: cooperative HEENT normocephalic, head/scalp atraumatic, hearing grossly normal bilaterally, nasal mucous membranes and turbinates normal and moist oral mucous membranes Eyes PERRL, EOMs intact bilaterally and conjunctivae normal Neck full ROM Chest inspection of chest normal Resp normal respiratory effort, normal air movement, no use of accessory muscles and clear to auscultation bilaterally Cardio regular rate, regular rhythm, no murmurs and peripheral pulses 2+ throughout GI GI Narrative: Abdomen soft and nondistended with mild abdominal tenderness in epigastric and right upper and lower quadrants diffusely. Stable. Back/Spine normal ROM Extremity normal to inspection, full ROM and no pedal edema Skin no rashes or lesions noted Psych mental status grossly normal Mood & Affect: anxious Assessment & Plan Assessment/Plan (1) Acute recurrent pancreatitis: PLAN: Plan Patient is a 44-year-old female who presented to [facility] ED on 10/16/2024 with recurrent abdominal pain. 1. Recurrent acute pancreatitis ? GI following. Hospitalized for initial pancreatitis episode at the end of August. Had ERCP done with choledocholithiasis that was removed, biliary stricture that was dilated and temporary stent placed. Hospitalized again from 09/25-09/29 for recurrent acute pancreatitis; GI followed and patient improved with conservative management and IV antibiotics. Did well for a few weeks but then began to have pain again leading to this admission. CT abdomen pelvis showed improved pancreatitis without pseudocyst or abscess and biliary stent without biliary ductal dilatation. Lipase 237, notably was 287 on 09/25. Per Dr. Sotelo, no clear cause for recurrent pancreatitis at this time. Additional labs sent and patient started scheduled Reglan. Continue IV maintenance IV fluids, nausea and pain control medications for now. Continue clear liquid diet for now. Will likely need repeat endoscopic ultrasound with possible pancreatic biopsy, appreciate GI recommendations on timing of this. 2. Leukocytosis ? WBC count 12 on admission, worsened to 21 on hospital day 2 but then improved back to 12 on 10/18. Patient did have low-grade fever to 100.2 F on evening of 10/17. Given ongoing intra-abdominal symptoms, will treat empirically with IV Zosyn for now. Continue to monitor daily CBC. 3. Hyponatremia ? Sodium 128, chloride 93 on hospital day 2, down from sodium 134 and chloride 99. Suspect due to dehydration from poor p.o. intake, though patient notably did receive significant IV normal saline on admission. Continue heavy maintenance IV fluids for now as noted above. Monitor BMP daily. 4. Hypertension ? Hypertensive to the 170s to 180s on admit. Restarted home amlodipine and losartan with good improvement. Pain control as noted above. IV hydralazine ordered for systolic BP greater than 170 as well. 5. Mild chronic iron deficiency anemia ? Hemoglobin stable at baseline 11-12. Continue home iron supplement. 6. GERD ? Continue home PPI. 7. Class II obesity ? BMI 35 on admit. Encouraged weight loss. DVT prophylaxis: Lovenox CODE STATUS: Full code, verified Expected disposition: Home, TBD Total clinical time spent by myself addressing the patient's medical issues, reviewing all the data, and collaborating with patient's care team: 35 minutes. Charges/Coding Visit Charges Inpatient E&M: 79051 Subs Hosp L2
[2024-10-18] MEDS: Ferrous Gluconate 324 MG Tablet PO (12:22)
[2024-10-18 14:53] VITALS: BP 127/89; PULSE 91; RESP 16; TEMP 37.2; O2SAT 94
[2024-10-18] MEDS: Acetaminophen 325 MG Tablet 650 MG PO (16:48)
[2024-10-18] MEDS: fentaNYL 25 MCG Patch TD (18:38)
[2024-10-18 19:57] LABS: Erythrocyte Sedimentation Rate 56 mm/hr (0-30)
[2024-10-18 20:38] VITALS: BP 112/67; PULSE 83; RESP 16; TEMP 36.2; O2SAT 92
--- NOTE | 2024-10-18 22:45 | PN_ITS ---
Progress Note ?Severe abdominal pain, pancreatitis. Patient reports sudden, severe upper abdominal pain, radiating to the back, along with nausea, vomiting, and an orexia.?Pain is described as constant and intense, with a 9/10 severity. Relevant medical history, including previous episodes of pancreatitis, gallstones, or related condition. Denies smoking, alcohol consumption, and other relevant factors. Physical Exam Narrative Abdominal tenderness, particularly in the epigastric region, may be present.?Possible signs of peritoneal inflammation like guarding or rebound tenderness. Const alert, oriented x3, no apparent distress and healthy appearing General Appearance: cooperative GI normal to inspection, nondistended, normoactive bowel sounds, soft to palpation, non-tender and non-distended Percussion: normal to percussion Rectal Exam: deferred Assessment & Plan Assessment/Plan (1) Acute pancreatitis: (2) Hypertension: (3) Leukocytosis: PLAN: Plan 43-year-old with history of cholecystitis status post cholecystectomy with history of acute recurrent pancreatitis. She has no history of hypertriglyceridemia, cystic fibrosis, IgG associated disease, multiple endocrine neoplasia, celiac disease, vasculitis. However MRCP did not show any signs of pancreatic divisum.Her initial episode of pancreatitis started more than 4 years ago when she suffered from 4 episodes of acute pancreatitis and went on to have a cholecystectomy. She underwent ERCP. she had sphincterotomy with stone removal and stent placement. She has never been on pancreatic enzymes and she has never had an endoscopic ultrasound.The pancreatic parenchyma was normal in signal and appearance without mass or?pancreatic duct?dilatation on these tests. Her symptoms have increased in severity over the past year. She has no signs and symptoms of chronic pancreatitis. Recurrent acute pancreatitis is defined as more than 2 episodes of a sudden inflammation of the pancreas. Clinical symptoms usually start with?epigastric pain?that sometimes spreads to the back and is associated with nausea, vomiting, and fever. Most cases of acute pancreatitis result from?biliary stone disease?and longstanding alcohol consumption. Workup including: K[facility]IE comprehensive, workup for cystic fibrosis, celiac disease, IgG4 associated, vasculitis, HIV, repeat triglycerides, inflammatory bowel disease, hereditary pancreatitis: Three-gene Profile (PRSS1, SPINK1, CFTR), Phosphatidylethanol (PEth)-lab a bit but she has any excessive alcohol with the last 3 months. I told her mom that she will likely need endoscopic ultrasound to definitively look for any signs of chronic pancreatitis and possibly need pancreatic biopsy. Recommendations: - Lactated Ringer's at 250 cc an hour - Boost or Ensure 3 times daily - Metoclopramide 10 mg every 8 hours - Phosphatidylethanol (PEth) 10/18/2024- continue intravenous fluids to address potential dehydration and electrolyte imbalance such as hyponatremia. This is not a good sign and likely signifies significant pancreatitis. Continue to Administer analgesics to manage severe pain.I have her on fentanyl patch 12.5 mg every 72 hours. I will change that to 25 mcg as is associated with less gastroparesis to help maintain our pain. Co continue antibiotics as previously ordered. White blood cell count to go down to 12.9. What is concerning is that her ESR is going up and her CRP was severely elevated. Yesterday is slightly coming down. I have her 250ml/hr of lactated ringers. Con continue to maintain neutral fluid balance. She is about 2 pounds heavier than yesterday. She needs a repeat CT scan of pelvis. Also encourage ensure or boost administration. Visit Charges Inpatient E&M: 36090 Subs Hosp L3
[2024-10-19] MEDS: Lactated Ringers 1,000 ML 250 ML IV ×4 (00:13→13:43)
[2024-10-19 02:50] VITALS: BP 147/98; PULSE 83; RESP 16; TEMP 36.3; O2SAT 93
[2024-10-19] MEDS: HYDROmorphone 0.5 MG/0.5 ML SYRINGE IV ×3 (04:17→16:21)
[2024-10-19] MEDS: 0.9% Saline Lock 10 ML Syringe IV ×4 (04:19→19:55)
[2024-10-19] MEDS: Piperacil/Tazobactam 3.375 GM Q8 PREMIX IV (05:32)
[2024-10-19] MEDS: Ketorolac 15 MG/ML Vial IV ×3 (05:39→19:55)
[2024-10-19] MEDS: Metoclopramide 10 MG/2 ML Vial IV ×3 (05:39→21:16)
[2024-10-19 06:06] LABS: Hematocrit 30.9 % (37-47); Hemoglobin 9.7 g/dL (12.0-15.0); Mean Corp Hgb Conc 31.4 g/dL (32-36); Mean Corpuscular Hgb 26.8 pg (27.0-32.0); Mean Corpuscular Volume 85.4 fL (81-99); Mean Platelet Vol. 10.2 fl (6.2-12.0); Platelet Count 232 K/mm3 (150-450); RBC Distribution Width CV 14.7 % (11.6-14.6); RBC Distribution Width SD 45.7 fl (35.1-43.9); Red Blood Count 3.62 M/mm3 (4.2-5.4); White Blood Count 8.2 K/mm3 (4.4-11.0)
[2024-10-19 06:40] LABS: ALB/GLOB Ratio 1.1 RATIO (0.9-2.4); AST(SGOT) 17 U/L (<=31); Alanine Aminotransfer ALT/SGPT 19 U/L (<=34); Albumin, Serum 3.2 g/dL (3.5-5.0); Alkaline Phosphatase 89 U/L (35-104); Anion Gap 10 (5-15); BUN 15 mg/dL (4-19); BUN/Creat Ratio 25.2 RATIO (10-20); Calcium,Total 9.5 mg/dL (7.6-11.0); Carbon Dioxide 24.4 mmol/L (21.0-32.0); Chloride 102 mmol/L (98-108); Creatinine, Serum 0.61 mg/dL (0.70-1.20); EST Glomerular Filtration Rate 113 (>60); Estimated Creatinine Clearance 130.24 ml/min (50-250); Globulin 2.8 g/dL (2.2-4.2); Glucose 93 mg/dL (70-99); Potassium 3.8 mmol/L (3.3-5.1); Sodium Level 136 mmol/L (133-145); Total Bilirubin 0.21 mg/dL (0.00-1.30)
[2024-10-19 07:37] VITALS: O2SAT 93
[2024-10-19] MEDS: proCHLORPERazine 10 MG/2 ML Vial IV ×2 (08:47→16:30)
[2024-10-19] MEDS: Creon 24,000 unit DR Capsule 1 CAP PO ×3 (08:49→16:21)
[2024-10-19] MEDS: Losartan Potassium 100 MG Tablet PO (08:50)
[2024-10-19] MEDS: Enoxaparin 40 MG/0.4 ML Syringe SC (08:52)
[2024-10-19] MEDS: amLODIPine 10 MG Tablet PO (08:52)
[2024-10-19] MEDS: Senna/Docusate Sodium 1 Tablet 2 TABLET PO ×2 (08:52→21:16)
[2024-10-19] MEDS: Pantoprazole Sodium 40 MG Tablet PO ×2 (08:52→21:16)
[2024-10-19 09:00] VITALS: BP 150/94; PULSE 86; RESP 16; TEMP 37.1; O2SAT 96
[2024-10-19] MEDS: oxyCODONE 5 MG Tablet PO (10:42)
--- NOTE | 2024-10-19 10:42 | PCM.PN.HOSP ---
Reason for Visit Reason for Visit: Diagnoses Elevated white blood cell count, unspecified (10/16/24) Essential (primary) hypertension (10/16/24) Acute pancreatitis without necrosis or infection, unspecified (10/16/24) Unspecified abdominal pain (10/16/24) Subjective Subjective Saw patient at bedside this morning. Patient is slowly starting to feel better. States that she had more p.o. intake this morning with full liquids than previous days with minimal nausea. Abdominal pain is improving. She feels less dehydrated than she previously did. No other new concerns today. Objective Data Objective Data Vital Signs: Vital Signs Temp Pulse Resp BP Pulse Ox O2 Del Method 97.3 F L 83 16 147/98 H 93 Room Air 10/19/24 02:50 10/19/24 02:50 10/19/24 02:50 10/19/24 02:50 10/19/24 07:37 10/19/24 07:37 Oxygen Delivery Method Room Air Weight: 93.2 kg Body Mass Index (BMI) 35.2 Intake & Output: Intake and Output for Last 24 Hours 10/17/24 10/18/24 10/19/24 23:59 23:59 23:59 Intake Total 2200 / 2200 5283.33 / 5283.33 3091.67 / 3091.67 Balance 2200 / 2200 5283.33 / 5283.33 3091.67 / 3091.67 Lab / Micro Data 10/19/24 05:27 10/19/24 05:27 Labs: Laboratory Results - last 24 hr 10/18/24 07:15: ESR 56 H, C-React Prot Ext Range 173.00 H 10/19/24 05:27: WBC 8.2, RBC 3.62 L, Hgb 9.7 L, Hct 30.9 L, MCV 85.4, MCH 26.8 L, MCHC 31.4 L, RDW Std Deviation 45.7 H, RDW Coeff of Chelsie 14.7 H, Plt Count 232, MPV 10.2, Sodium 136, Potassium 3.8, Chloride 102, Carbon Dioxide 24.4, Anion Gap 10, BUN 15, Creatinine 0.61 L, Estim Creat Clear Calc 130.24, Est GFR (MDRD) Non-Af 113, BUN/Creatinine Ratio 25.2 H, Glucose 93, Calcium 9.5, Total Bilirubin 0.21, AST 17, ALT 19, Alkaline Phosphatase 89, Total Protein 6.0, Albumin 3.2 L, Globulin 2.8, Albumin/Globulin Ratio 1.1 Physical Exam Const alert and oriented x3 Constitutional Narrative: Middle-aged female, class II obesity, mildly fatigued appearing but energy level improving, now laying back comfortably in bed, conversing normally and in no acute distress. Improving. General Appearance: cooperative HEENT normocephalic, head/scalp atraumatic, hearing grossly normal bilaterally, nasal mucous membranes and turbinates normal and moist oral mucous membranes Eyes PERRL, EOMs intact bilaterally and conjunctivae normal Neck full ROM Chest inspection of chest normal Resp normal respiratory effort, normal air movement, no use of accessory muscles and clear to auscultation bilaterally Cardio regular rate, regular rhythm, no murmurs and peripheral pulses 2+ throughout GI GI Narrative: Abdomen soft and nondistended with minimal abdominal tenderness in epigastric and right upper and lower quadrants diffusely. Improving. Back/Spine normal ROM Extremity normal to inspection, full ROM and no pedal edema Skin no rashes or lesions noted Psych mental status grossly normal Assessment & Plan Assessment/Plan (1) Acute recurrent pancreatitis: PLAN: Plan Patient is a 44-year-old female who presented to [facility] ED on 10/16/2024 with recurrent abdominal pain. 1. Recurrent acute pancreatitis ? GI following. Hospitalized for initial pancreatitis episode at the end of August. Had ERCP done with choledocholithiasis that was removed, biliary stricture that was dilated and temporary stent placed. Hospitalized again from 09/25-09/29 for recurrent acute pancreatitis; GI followed and patient improved with conservative management and IV antibiotics. Did well for a few weeks but then began to have pain again leading to this admission. CT abdomen pelvis showed improved pancreatitis without pseudocyst or abscess and biliary stent without biliary ductal dilatation. Lipase 237, notably was 287 on 09/25. However, CRP and ESR severely elevated. Per Dr. Sotelo, unclear etiology for recurrent pancreatitis but may be medication related. Notably patient was likely under resuscitated from a volume standpoint initially on this admission and with significant volume resuscitation now there has been good improvement. Decreased maintenance LR rate and pushing p.o. intake as able. On full liquid diet, progress to regular diet as tolerated and ensure high-protein added to meals. Added fentanyl patch every 72 hours to pain regimen, otherwise continue nausea and pain control medications as needed. If patient continues to improve tomorrow, may be ready for discharge home. Per GI, will need close outpatient follow-up and may need repeat endoscopic evaluation in the future. 2. Leukocytosis, resolved ? WBC count 12 on admission, worsened to 21 on hospital day 2 but then improved back to 12 on 10/18. Patient did have low-grade fever to 100.2 F on evening of 10/17 and was empirically started on IV Zosyn. Leukocytosis has resolved and appears more likely due to inflammation from pancreatitis as well as hemoconcentration from dehydration. Will discontinue antibiotics today. 3. Hyponatremia, improved ? Sodium 128, chloride 93 on hospital day 2, down from sodium 134 and chloride 99. Suspect due to dehydration from poor p.o. intake. Given heavy IV fluid resuscitation with improvement to sodium 136 on 10/19. Continue to monitor BMP daily. 4. Hypertension ? Hypertensive to the 170s to 180s on admit. Restarted home amlodipine and losartan with good improvement. Pain control as noted above. IV hydralazine ordered for systolic BP greater than 170 as well. 5. Mild chronic iron deficiency anemia ? Hemoglobin stable at baseline 10-. Continue home iron supplement. 6. GERD ? Continue home PPI. 7. Class II obesity ? BMI 35 on admit. Encouraged weight loss. DVT prophylaxis: Lovenox CODE STATUS: Full code, verified Expected disposition: Home, 1 to 2 days Total clinical time spent by myself addressing the patient's medical issues, reviewing all the data, and collaborating with patient's care team: 35 minutes. Charges/Coding Visit Charges Inpatient E&M: 00992 Subs Hosp L2
[2024-10-19] MEDS: Ferrous Gluconate 324 MG Tablet PO (12:29)
[2024-10-19 15:00] VITALS: BP 144/94; PULSE 88; RESP 16; TEMP 36.7; O2SAT 97
--- NOTE | 2024-10-19 18:42 | PCM.PN.BLA ---
Progress Note The patient is started to feel little better. She still is not eating much. Physical Exam Const alert, oriented x3, no apparent distress and healthy appearing General Appearance: cooperative GI normal to inspection, nondistended, normoactive bowel sounds, soft to palpation, non-tender and non-distended Percussion: normal to percussion Rectal Exam: deferred Assessment & Plan Assessment/Plan (1) Acute pancreatitis: (2) Hypertension: (3) Leukocytosis: PLAN: Plan 43-year-old with history of cholecystitis status post cholecystectomy with history of acute recurrent pancreatitis. She has no history of hypertriglyceridemia, cystic fibrosis, IgG associated disease, multiple endocrine neoplasia, celiac disease, vasculitis. However MRCP did not show any signs of pancreatic divisum.Her initial episode of pancreatitis started more than 4 years ago when she suffered from 4 episodes of acute pancreatitis and went on to have a cholecystectomy. She underwent ERCP. she had sphincterotomy with stone removal and stent placement. She has never been on pancreatic enzymes and she has never had an endoscopic ultrasound.The pancreatic parenchyma was normal in signal and appearance without mass or?pancreatic duct?dilatation on these tests. Her symptoms have increased in severity over the past year. She has no signs and symptoms of chronic pancreatitis. Recurrent acute pancreatitis is defined as more than 2 episodes of a sudden inflammation of the pancreas. Clinical symptoms usually start with?epigastric pain?that sometimes spreads to the back and is associated with nausea, vomiting, and fever. Most cases of acute pancreatitis result from?biliary stone disease?and longstanding alcohol consumption. Workup including: KENZIE comprehensive, workup for cystic fibrosis, celiac disease, IgG4 associated, vasculitis, HIV, repeat triglycerides, inflammatory bowel disease, hereditary pancreatitis: Three-gene Profile (PRSS1, SPINK1, CFTR), Phosphatidylethanol (PEth)-lab a bit but she has any excessive alcohol with the last 3 months. I told her mom that she will likely need endoscopic ultrasound to definitively look for any signs of chronic pancreatitis and possibly need pancreatic biopsy. Recommendations: - Lactated Ringer's at 250 cc an hour - Boost or Ensure 3 times daily - Metoclopramide 10 mg every 8 hours - Phosphatidylethanol (PEth) 10/18/2024- continue intravenous fluids to address potential dehydration and electrolyte imbalance such as hyponatremia. This is not a good sign and likely signifies significant pancreatitis. Continue to Administer analgesics to manage severe pain.I have her on fentanyl patch 12.5 mg every 72 hours. I will change that to 25 mcg as is associated with less gastroparesis to help maintain our pain. Co continue antibiotics as previously ordered. White blood cell count to go down to 12.9. What is concerning is that her ESR is going up and her CRP was severely elevated. Yesterday is slightly coming down. I have her 250ml/hr of lactated ringers. Con continue to maintain neutral fluid balance. She is about 2 pounds heavier than yesterday. She needs a repeat CT scan of pelvis. Also encourage ensure or boost administration. 10/19/2024- Patient remains afebrile. Her weight is up about 2 pounds since admission to the hospital. I suspect that fluid. Her fluids were decreased down to 125 mL an hour. Recommend to repeat CT scan abdomen pelvis along ESR and CRP tomorrow Visit Charges Inpatient E&M: 64295 Subs Hosp L3
[2024-10-19 19:50] VITALS: BP 170/98; PULSE 83; RESP 16; TEMP 36.6; O2SAT 95
[2024-10-19 19:54] VITALS: BP 170/98; PULSE 83
[2024-10-19] MEDS: hydrALAZINE 20 MG/ML Vial 10 MG IV (19:54)
[2024-10-19] MEDS: Ondansetron 4 MG/2 ML Vial IV (19:55)
[2024-10-19] MEDS: Lactated Ringers 1,000 ML 125 ML IV (21:16)
[2024-10-20] MEDS: oxyCODONE 5 MG Tablet PO ×3 (00:36→16:36)
[2024-10-20 02:00] VITALS: BP 148/93; PULSE 86; RESP 16; TEMP 36.6; O2SAT 94
[2024-10-20] MEDS: Ketorolac 15 MG/ML Vial IV ×4 (03:53→22:17)
[2024-10-20] MEDS: 0.9% Saline Lock 10 ML Syringe IV ×2 (03:53→22:16)
[2024-10-20] MEDS: Metoclopramide 10 MG/2 ML Vial IV ×3 (05:24→22:14)
[2024-10-20] MEDS: Lactated Ringers 1,000 ML 125 ML IV ×3 (05:24→23:15)
[2024-10-20 07:35] LABS: Hematocrit 31.8 % (37-47); Hemoglobin 10.2 g/dL (12.0-15.0); Mean Corp Hgb Conc 32.1 g/dL (32-36); Mean Corpuscular Hgb 26.7 pg (27.0-32.0); Mean Corpuscular Volume 83.2 fL (81-99); Mean Platelet Vol. 9.3 fl (6.2-12.0); Platelet Count 274 K/mm3 (150-450); RBC Distribution Width CV 14.4 % (11.6-14.6); RBC Distribution Width SD 43.7 fl (35.1-43.9); Red Blood Count 3.82 M/mm3 (4.2-5.4); White Blood Count 6.9 K/mm3 (4.4-11.0)
[2024-10-20 07:37] VITALS: O2SAT 94
--- NOTE | 2024-10-20 07:43 | CT_ITS ---
PROCEDURE: ABDOMEN/PELVIS W IV CONT ONLY 10/20/2024 REASON FOR EXAM: REEVAL PANCREATITIS TECHNIQUE: Abdomen and pelvis CT with intravenous contrast. Coronal and Sagittal reconstruction series were provided. PATIENT PREPARATION: Per protocol ORAL CONTRAST TYPE: None. AMOUNT: mL One or more dose reduction techniques were used (e.g., Automated exposure control, adjustment of the mA and/or kV according to patient size, use of iterative reconstruction technique. COMPARISON: 10/15/2024 FINDINGS: Lung bases: Tiny bilateral pleural effusions with some bibasilar atelectasis. Liver: Normal size. No mass. Gallbladder: Surgically absent. Spleen: Normal size. Pancreas: No change in the enlargement, subtle decreased attenuation, and subtle stranding of the surrounding fat of the pancreas consistent with acute pancreatitis. No loculated fluid collection to suggest pseudocyst or abscess. Normal enhancement of the pancreas without evidence of necrotizing pancreatitis. Biliary stent is present. Adrenals: Unremarkable. Kidneys: Normal renal sizes. No hydronephrosis. Bladder: Unremarkable. Reproductive Organs: Unremarkable. Bowel: No bowel obstruction. Appendix: Unremarkable Lymph nodes: Unremarkable Vasculature: The abdominal aorta and IVC are normal. Peritoneum / Retroperitoneum: Small amount of free fluid in the pelvis. Bones: Unremarkable. CT/Abdomen/Pelvis W IV Cont ONLY IMPRESSION: Continued acute pancreatitis with biliary stent and small amount of ascites wit hout pseudocyst, abscess, or necrotizing pancreatitis. Reading Location: [id number]
--- NOTE | 2024-10-20 08:01 | NURSING ---
iv/sl for pt to go to CT scan via bed
[2024-10-20 08:23] LABS: ALB/GLOB Ratio 1.2 RATIO (0.9-2.4); AST(SGOT) 16 U/L (<=31); Alanine Aminotransfer ALT/SGPT 17 U/L (<=34); Albumin, Serum 3.5 g/dL (3.5-5.0); Alkaline Phosphatase 84 U/L (35-104); Anion Gap 10 (5-15); BUN 6 mg/dL (4-19); BUN/Creat Ratio 13.6 RATIO (10-20); Calcium,Total 9.9 mg/dL (7.6-11.0); Carbon Dioxide 27.6 mmol/L (21.0-32.0); Chloride 99 mmol/L (98-108); Creatinine, Serum 0.48 mg/dL (0.70-1.20); EST Glomerular Filtration Rate 120 (>60); Estimated Creatinine Clearance 165.51 ml/min (50-250); Globulin 2.9 g/dL (2.2-4.2); Glucose 100 mg/dL (70-99); Potassium 3.6 mmol/L (3.3-5.1); Protein, Total 6.4 g/dL (5.9-8.4); Sodium Level 137 mmol/L (133-145)
[2024-10-20 08:31] LABS: Erythrocyte Sedimentation Rate 57 mm/hr (0-30)
[2024-10-20] MEDS: Creon 24,000 unit DR Capsule 1 CAP PO ×3 (08:48→15:57)
[2024-10-20 09:00] VITALS: BP 162/93; PULSE 75; RESP 16; TEMP 36.6; O2SAT 98
[2024-10-20] MEDS: Senna/Docusate Sodium 1 Tablet 2 TABLET PO ×2 (09:45→22:14)
[2024-10-20] MEDS: amLODIPine 10 MG Tablet PO (09:45)
[2024-10-20] MEDS: Losartan Potassium 100 MG Tablet PO (09:46)
[2024-10-20] MEDS: Pantoprazole Sodium 40 MG Tablet PO ×2 (09:46→22:14)
[2024-10-20] MEDS: Enoxaparin 40 MG/0.4 ML Syringe SC (09:46)
[2024-10-20] MEDS: Ondansetron 4 MG/2 ML Vial IV ×2 (09:56→16:35)
[2024-10-20 10:00] VITALS: PULSE 90; RESP 18; O2SAT 98
--- NOTE | 2024-10-20 10:40 | PCM.PN.HOSP ---
Reason for Visit Reason for Visit: Diagnoses Elevated white blood cell count, unspecified (10/16/24) Essential (primary) hypertension (10/16/24) Acute pancreatitis without necrosis or infection, unspecified (10/16/24) Unspecified abdominal pain (10/16/24) Subjective Subjective Saw patient at bedside this morning. Patient appeared similar today to yesterday. Remains mildly fatigued appearing but was sitting back fairly comfortably in bedside chair and in no acute distress. States that she continues to have pain with p.o. intake, similar to previous days. Denies any nausea currently. Denies any fevers or chills. No other new concerns today. Objective Data Objective Data Vital Signs: Vital Signs Temp Pulse Resp BP Pulse Ox O2 Del Method 97.8 F 86 16 148/93 H 94 Room Air 10/20/24 02:00 10/20/24 02:00 10/20/24 02:00 10/20/24 02:00 10/20/24 07:37 10/20/24 07:37 Oxygen Delivery Method Room Air Weight: 93.2 kg Body Mass Index (BMI) 35.2 Intake & Output: Intake and Output for Last 24 Hours 10/18/24 10/19/24 10/20/24 23:59 23:59 23:59 Intake Total 5283.33 / 5283.33 5091.67 / 5091.67 1000 / 1000 Balance 5283.33 / 5283.33 5091.67 / 5091.67 1000 / 1000 Lab / Micro Data 10/20/24 07:29 10/20/24 07:29 Labs: Laboratory Results - last 24 hr 10/20/24 07:29: WBC 6.9, RBC 3.82 L, Hgb 10.2 L, Hct 31.8 L, MCV 83.2, MCH 26.7 L, MCHC 32.1, RDW Std Deviation 43.7, RDW Coeff of Chelsie 14.4, Plt Count 274, MPV 9.3, ESR 57 H, Sodium 137, Potassium 3.6, Chloride 99, Carbon Dioxide 27.6, Anion Gap 10, BUN 6, Creatinine 0.48 L, Estim Creat Clear Calc 165.51, Est GFR (MDRD) Non-Af 120, BUN/Creatinine Ratio 13.6, Glucose 100 H, Calcium 9.9, Total Bilirubin 0.20, AST 16, ALT 17, Alkaline Phosphatase 84, Total Protein 6.4, Albumin 3.5, Globulin 2.9, Albumin/Globulin Ratio 1.2 Micro: Microbiology 10/18/24 07:29 Blood Culture (Wb) - Right Wrist Blood Culture - Preliminary No growth in 48 hours. 10/18/24 07:15 Blood Culture (Wb) - Left Wrist Blood Culture - Preliminary No growth in 48 hours. 10/18/24 02:19 Urine, Clean Catch Urine Culture - Preliminary GPC Poss Enterococcus sp Radiography Diagnostic Testing: Radiology Impression Abdomen/Pelvis CT 10/20/24 07:43 IMPRESSION: Continued acute pancreatitis with biliary stent and small amount of ascites without pseudocyst, abscess, or necrotizing pancreatitis. Reading Location: [id number] Physical Exam Const alert and oriented x3 Constitutional Narrative: Middle-aged female, class II obesity, mildly fatigued appearing but energy level improving, now laying back comfortably in bed, conversing normally and in no acute distress. Improved from admission and now stable. General Appearance: cooperative HEENT normocephalic, head/scalp atraumatic, hearing grossly normal bilaterally, nasal mucous membranes and turbinates normal and moist oral mucous membranes Eyes PERRL, EOMs intact bilaterally and conjunctivae normal Neck full ROM Chest inspection of chest normal Resp normal respiratory effort, normal air movement, no use of accessory muscles and clear to auscultation bilaterally Cardio regular rate, regular rhythm, no murmurs and peripheral pulses 2+ throughout GI GI Narrative: Abdomen soft and nondistended with minimal abdominal tenderness in epigastric and right upper and lower quadrants diffusely. Improved from admission and now stable. Back/Spine normal ROM Extremity normal to inspection, full ROM and no pedal edema Skin no rashes or lesions noted Psych mental status grossly normal Assessment & Plan Assessment/Plan (1) Acute recurrent pancreatitis: PLAN: Plan Patient is a 44-year-old female who presented to [facility] ED on 10/16/2024 with recurrent abdominal pain. 1. Recurrent acute pancreatitis ? GI following. Hospitalized for initial pancreatitis episode at the end of August. Had ERCP done with choledocholithiasis that was removed, biliary stricture that was dilated and temporary stent placed. Hospitalized again from 09/25-09/29 for recurrent acute pancreatitis; GI followed and patient improved with conservative management and IV antibiotics. Did well for a few weeks but then began to have pain again leading to this admission. CT abdomen pelvis showed improved pancreatitis without pseudocyst or abscess and biliary stent without biliary ductal dilatation. Lipase 237, notably was 287 on 09/25. However, CRP and ESR severely elevated. Per Dr. Sotelo, unclear etiology for recurrent pancreatitis but may be medication related. Notably patient was likely under resuscitated from a volume standpoint initially on this admission and with significant volume resuscitation now there has been good improvement. Fentanyl patch every 72 hours added to pain regimen with improvement in pain control. CT abdomen pelvis on 10/20 continued to show findings of smoldering pancreatitis around the pancreatic head, but notably CRP is much improved from 173 on 10/18 down to 47 on 10/20. Continue maintenance IV fluids and pain control for now as above. Advancing diet as tolerated and hopeful that patient will be ready for discharge home in the next few days. 2. Leukocytosis, resolved ? WBC count 12 on admission, worsened to 21 on hospital day 2 but then improved back to 12 on 10/18. Patient did have low-grade fever to 100.2 F on evening of 10/17 and was empirically started on IV Zosyn. Leukocytosis has resolved and appears more likely due to inflammation from pancreatitis as well as hemoconcentration from dehydration. Discontinued antibiotics on 10/19. 3. Hyponatremia, improved ? Sodium 128, chloride 93 on hospital day 2, down from sodium 134 and chloride 99. Suspect due to dehydration from poor p.o. intake. Given heavy IV fluid resuscitation with improvement to sodium 136 on 10/19. Continue to monitor BMP daily. 4. Hypertension ? Hypertensive to the 170s to 180s on admit. Restarted home amlodipine and losartan with good improvement. Pain control as noted above. IV hydralazine ordered for systolic BP greater than 170 as well. 5. Mild chronic iron deficiency anemia ? Hemoglobin stable at baseline -. Continue home iron supplement. 6. GERD ? Continue home PPI. 7. Class II obesity ? BMI 35 on admit. Encouraged weight loss. DVT prophylaxis: Lovenox CODE STATUS: Full code, verified Expected disposition: Home, 1 to 2 days Total clinical time spent by myself addressing the patient's medical issues, reviewing all the data, and collaborating with patient's care team: 35 minutes. Charges/Coding Visit Charges Inpatient E&M: 37792 Subs Hosp L2
[2024-10-20] MEDS: Ferrous Gluconate 324 MG Tablet PO (11:59)
[2024-10-20 15:00] VITALS: BP 142/89; PULSE 74; RESP 16; TEMP 36.6; O2SAT 95
[2024-10-20 21:00] VITALS: BP 182/109; PULSE 77; RESP 16; TEMP 36.7; O2SAT 96
[2024-10-20] MEDS: MELATONIN 3 MG TABLET PO (22:59)
[2024-10-21 03:00] VITALS: BP 161/105; PULSE 83; RESP 16; TEMP 36.6; O2SAT 93
[2024-10-21] MEDS: oxyCODONE 5 MG Tablet PO ×3 (04:18→16:13)
[2024-10-21] MEDS: proCHLORPERazine 10 MG/2 ML Vial IV (04:18)
[2024-10-21 04:50] LABS: Hemoglobin 10.5 g/dL (12.0-15.0); Mean Corp Hgb Conc 31.8 g/dL (32-36); Mean Corpuscular Hgb 26.4 pg (27.0-32.0); Mean Corpuscular Volume 83.1 fL (81-99); Mean Platelet Vol. 9.9 fl (6.2-12.0); Platelet Count 294 K/mm3 (150-450); RBC Distribution Width SD 42.3 fl (35.1-43.9); Red Blood Count 3.97 M/mm3 (4.2-5.4); White Blood Count 7.2 K/mm3 (4.4-11.0)
[2024-10-21 05:17] LABS: ALB/GLOB Ratio 1.2 RATIO (0.9-2.4); AST(SGOT) 32 U/L (<=31); Alanine Aminotransfer ALT/SGPT 21 U/L (<=34); Albumin, Serum 3.5 g/dL (3.5-5.0); Alkaline Phosphatase 91 U/L (35-104); Anion Gap 11 (5-15); BUN 5 mg/dL (4-19); BUN/Creat Ratio 10.2 RATIO (10-20); Calcium,Total 10.2 mg/dL (7.6-11.0); Carbon Dioxide 27.8 mmol/L (21.0-32.0); Chloride 98 mmol/L (98-108); Creatinine, Serum 0.45 mg/dL (0.70-1.20); EST Glomerular Filtration Rate 121 (>60); Estimated Creatinine Clearance 176.55 ml/min (50-250); Glucose 106 mg/dL (70-99); Protein, Total 6.5 g/dL (5.9-8.4); Sodium Level 137 mmol/L (133-145); Total Bilirubin 0.22 mg/dL (0.00-1.30)
[2024-10-21] MEDS: Metoclopramide 10 MG/2 ML Vial IV ×3 (06:33→21:02)
[2024-10-21] MEDS: Lactated Ringers 1,000 ML 125 ML IV (06:37)
[2024-10-21] MEDS: Creon 24,000 unit DR Capsule 1 CAP PO ×3 (08:52→16:12)
[2024-10-21] MEDS: Senna/Docusate Sodium 1 Tablet 2 TABLET PO (08:52)
[2024-10-21] MEDS: Enoxaparin 40 MG/0.4 ML Syringe SC (08:53)
[2024-10-21] MEDS: Pantoprazole Sodium 40 MG Tablet PO ×2 (08:54→21:02)
[2024-10-21] MEDS: amLODIPine 10 MG Tablet PO (08:55)
[2024-10-21] MEDS: Losartan Potassium 100 MG Tablet PO (08:55)
[2024-10-21 08:59] VITALS: BP 164/102; PULSE 72; RESP 18; TEMP 36.5; O2SAT 96
--- NOTE | 2024-10-21 09:35 | PCM.PN.HOSP ---
Reason for Visit Reason for Visit: Diagnoses Elevated white blood cell count, unspecified (10/16/24) Essential (primary) hypertension (10/16/24) Acute pancreatitis without necrosis or infection, unspecified (10/16/24) Unspecified abdominal pain (10/16/24) Subjective Subjective Saw patient at bedside this morning. Patient appeared similar today to yesterday. Energy is improved for admission and she generally feels better with less abdominal pain, but she is still having some pain with p.o. intake and has not taken any solids yet. No other new concerns today. Objective Data Objective Data Vital Signs: Vital Signs Temp Pulse Resp BP Pulse Ox O2 Del Method 97.7 F L 72 18 164/102 H 96 Room Air 10/21/24 08:59 10/21/24 08:59 10/21/24 08:59 10/21/24 08:59 10/21/24 08:59 10/21/24 08:59 Oxygen Delivery Method Room Air Weight: 93.2 kg Body Mass Index (BMI) 35.2 Intake & Output: Intake and Output for Last 24 Hours 10/19/24 10/20/24 10/21/24 23:59 23:59 23:59 Intake Total 5091.67 / 5091.67 6646 / 6846 1120.83 / 1120.83 Balance 5091.67 / 5091.67 6646 / 6846 1120.83 / 1120.83 Lab / Micro Data 10/21/24 04:14 10/21/24 04:14 Labs: Laboratory Results - last 24 hr 10/20/24 07:29: C-React Prot Ext Range 47.10 H 10/21/24 04:14: WBC 7.2, RBC 3.97 L, Hgb 10.5 L, Hct 33.0 L, MCV 83.1, MCH 26.4 L, MCHC 31.8 L, RDW Std Deviation 42.3, RDW Coeff of Chelsie 14.0, Plt Count 294, MPV 9.9, Sodium 137, Potassium 4.0, Chloride 98, Carbon Dioxide 27.8, Anion Gap 11, BUN 5, Creatinine 0.45 L, Estim Creat Clear Calc 176.55, Est GFR (MDRD) Non-Af 121, BUN/Creatinine Ratio 10.2, Glucose 106 H, Calcium 10.2, Total Bilirubin 0.22, AST 32, ALT 21, Alkaline Phosphatase 91, Total Protein 6.5, Albumin 3.5, Globulin 3.0, Albumin/Globulin Ratio 1.2 Micro: Microbiology 10/18/24 02:19 Urine, Clean Catch Urine Culture - Final GPC Poss Enterococcus sp 10/18/24 07:29 Blood Culture (Wb) - Right Wrist Blood Culture - Preliminary No growth in 48 hours. 10/18/24 07:15 Blood Culture (Wb) - Left Wrist Blood Culture - Preliminary No growth in 48 hours. Radiography Diagnostic Testing: Radiology Impression Abdomen/Pelvis CT 10/20/24 07:43 IMPRESSION: Continued acute pancreatitis with biliary stent and small amount of ascites without pseudocyst, abscess, or necrotizing pancreatitis. Reading Location: [id number] Physical Exam Const alert and oriented x3 Constitutional Narrative: Middle-aged female, class II obesity, mildly fatigued appearing but energy level improving, now laying back comfortably in bed, conversing normally and in no acute distress. Improved from admission and now stable. General Appearance: cooperative HEENT normocephalic, head/scalp atraumatic, hearing grossly normal bilaterally, nasal mucous membranes and turbinates normal and moist oral mucous membranes Eyes PERRL, EOMs intact bilaterally and conjunctivae normal Neck full ROM Chest inspection of chest normal Resp normal respiratory effort, normal air movement, no use of accessory muscles and clear to auscultation bilaterally Cardio regular rate, regular rhythm, no murmurs and peripheral pulses 2+ throughout GI GI Narrative: Abdomen soft and nondistended with minimal abdominal tenderness in epigastric and right upper and lower quadrants diffusely. Improved from admission and now stable. Back/Spine normal ROM Extremity normal to inspection, full ROM and no pedal edema Skin no rashes or lesions noted Psych mental status grossly normal Assessment & Plan Assessment/Plan (1) Acute recurrent pancreatitis: PLAN: Plan Patient is a 44-year-old female who presented to [facility] ED on 10/16/2024 with recurrent abdominal pain. 1. Recurrent acute pancreatitis ? GI following. Hospitalized for initial pancreatitis episode at the end of August. Had ERCP done with choledocholithiasis that was removed, biliary stricture that was dilated and temporary stent placed. Hospitalized again from 09/25-09/29 for recurrent acute pancreatitis; GI followed and patient improved with conservative management and IV antibiotics. Did well for a few weeks but then began to have pain again leading to this admission. CT abdomen pelvis showed improved pancreatitis without pseudocyst or abscess and biliary stent without biliary ductal dilatation. Lipase 237, notably was 287 on 09/25. However, CRP and ESR severely elevated. Per Dr. Sotelo, unclear etiology for recurrent pancreatitis but may be medication related. Notably patient was likely under resuscitated from a volume standpoint initially on this admission and with significant volume resuscitation now there has been good improvement. Fentanyl patch every 72 hours added to pain regimen with improvement in pain control. CT abdomen pelvis on 10/20 continued to show findings of smoldering pancreatitis around the pancreatic head, but notably CRP is much improved from 173 on 10/18 down to 47 on 10/20. Continue maintenance IV fluids and pain control for now as above. Advancing diet as tolerated and hopeful that patient will be ready for discharge home in the next few days. 2. Leukocytosis, resolved ? WBC count 12 on admission, worsened to 21 on hospital day 2 but then improved back to 12 on 10/18. Patient did have low-grade fever to 100.2 F on evening of 10/17 and was empirically started on IV Zosyn. Leukocytosis has resolved and appears more likely due to inflammation from pancreatitis as well as hemoconcentration from dehydration. Discontinued antibiotics on 10/19. 3. Hyponatremia, improved ? Sodium 128, chloride 93 on hospital day 2, down from sodium 134 and chloride 99. Suspect due to dehydration from poor p.o. intake. Given heavy IV fluid resuscitation with improvement to sodium 136 on 10/19. Continue to monitor BMP daily. 4. Hypertension ? Hypertensive to the 170s to 180s on admit. Restarted home amlodipine and losartan with good improvement. Pain control as noted above. IV hydralazine ordered for systolic BP greater than 170 as well. 5. Mild chronic iron deficiency anemia ? Hemoglobin stable at baseline -. Continue home iron supplement. 6. GERD ? Continue home PPI. 7. Class II obesity ? BMI 35 on admit. Encouraged weight loss. DVT prophylaxis: Lovenox CODE STATUS: Full code, verified Expected disposition: Home, 1 to 2 days Total clinical time spent by myself addressing the patient's medical issues, reviewing all the data, and collaborating with patient's care team: 35 minutes. Charges/Coding Visit Charges Inpatient E&M: 72423 Subs Hosp L2
[2024-10-21] MEDS: Ondansetron 4 MG/2 ML Vial IV (10:23)
[2024-10-21] MEDS: 0.9% Saline Lock 10 ML Syringe IV (10:24)
[2024-10-21] MEDS: Ferrous Gluconate 324 MG Tablet PO (12:20)
[2024-10-21] MEDS: Acetaminophen 325 MG Tablet 650 MG PO ×2 (12:23→21:03)
[2024-10-21 15:00] VITALS: BP 148/94; PULSE 80; RESP 19; TEMP 36.7; O2SAT 96
[2024-10-21] MEDS: fentaNYL 25 MCG Patch TD (18:31)
[2024-10-21 20:00] VITALS: BP 182/112; PULSE 79; RESP 16; TEMP 36.9; O2SAT 97
[2024-10-21] MEDS: MELATONIN 3 MG TABLET PO (21:09)
[2024-10-21 21:18] VITALS: BP 182/112; PULSE 79
[2024-10-21] MEDS: hydrALAZINE 20 MG/ML Vial 10 MG IV (21:18)
[2024-10-21 22:00] VITALS: PULSE 79
[2024-10-22 03:00] VITALS: BP 131/80; PULSE 80; RESP 16; TEMP 36.8; O2SAT 95
[2024-10-22] MEDS: Metoclopramide 10 MG/2 ML Vial IV (05:41)
[2024-10-22] MEDS: amLODIPine 10 MG Tablet PO (07:54)
[2024-10-22] MEDS: Enoxaparin 40 MG/0.4 ML Syringe SC (07:54)
[2024-10-22] MEDS: Losartan Potassium 100 MG Tablet PO (07:54)
[2024-10-22] MEDS: Creon 24,000 unit DR Capsule 1 CAP PO ×2 (07:54→10:49)
[2024-10-22] MEDS: Pantoprazole Sodium 40 MG Tablet PO (07:55)
[2024-10-22] MEDS: proCHLORPERazine 10 MG/2 ML Vial IV (07:55)
[2024-10-22] MEDS: 0.9% Saline Lock 10 ML Syringe IV (07:58)
--- NOTE | 2024-10-22 07:58 | PCM.PN.HOSP ---
Reason for Visit Reason for Visit: Diagnoses Elevated white blood cell count, unspecified (10/16/24) Essential (primary) hypertension (10/16/24) Acute pancreatitis without necrosis or infection, unspecified (10/16/24) Unspecified abdominal pain (10/16/24) Objective Data Objective Data Vital Signs: Vital Signs Temp Pulse Resp BP Pulse Ox O2 Del Method 98.3 F 80 16 131/80 H 95 Room Air 10/22/24 03:00 10/22/24 03:00 10/22/24 03:00 10/22/24 03:00 10/22/24 03:00 10/22/24 03:00 Oxygen Delivery Method Room Air Weight: 205 lb 7.533 oz Body Mass Index (BMI) 35.2 Intake & Output: Intake and Output for Last 24 Hours 10/20/24 10/21/24 10/22/24 23:59 23:59 23:59 Intake Total 6646 / 6846 2600.83 / 2600.83 Balance 6646 / 6846 2600.83 / 2600.83 Lab / Micro Data 10/21/24 04:14 10/21/24 04:14 Micro: Microbiology 10/18/24 02:19 Urine, Clean Catch Urine Culture - Final GPC Poss Enterococcus sp 10/18/24 07:29 Blood Culture (Wb) - Right Wrist Blood Culture - Preliminary No growth in 48 hours. 10/18/24 07:15 Blood Culture (Wb) - Left Wrist Blood Culture - Preliminary No growth in 48 hours. Assessment & Plan Assessment/Plan (1) Acute recurrent pancreatitis: PLAN: Plan Patient is a 44-year-old female who presented to [facility] ED on 10/16/2024 with recurrent abdominal pain. 1. Recurrent acute pancreatitis ? GI following. Hospitalized for initial pancreatitis episode at the end of August. Had ERCP done with choledocholithiasis that was removed, biliary stricture that was dilated and temporary stent placed. Hospitalized again from 09/25-09/29 for recurrent acute pancreatitis; GI followed and patient improved with conservative management and IV antibiotics. Did well for a few weeks but then began to have pain again leading to this admission. CT abdomen pelvis showed improved pancreatitis without pseudocyst or abscess and biliary stent without biliary ductal dilatation. Lipase 237, notably was 287 on 09/25. However, CRP and ESR severely elevated. Per Dr. Friend, unclear etiology for recurrent pancreatitis but may be medication related. Notably patient was likely under resuscitated from a volume standpoint initially on this admission and with significant volume resuscitation now there has been good improvement. Fentanyl patch every 72 hours added to pain regimen with improvement in pain control. CT abdomen pelvis on 10/20 continued to show findings of smoldering pancreatitis around the pancreatic head, but notably CRP is much improved from 173 on 10/18 down to 47 on 10/20. Continue maintenance IV fluids and pain control for now as above. Advancing diet as tolerated and hopeful that patient will be ready for discharge home in the next few days. 2. Leukocytosis, resolved ? WBC count 12 on admission, worsened to 21 on hospital day 2 but then improved back to 12 on 10/18. Patient did have low-grade fever to 100.2 F on evening of 10/17 and was empirically started on IV Zosyn. Leukocytosis has resolved and appears more likely due to inflammation from pancreatitis as well as hemoconcentration from dehydration. Discontinued antibiotics on 10/19. 3. Hyponatremia, improved ? Sodium 128, chloride 93 on hospital day 2, down from sodium 134 and chloride 99. Suspect due to dehydration from poor p.o. intake. Given heavy IV fluid resuscitation with improvement to sodium 136 on 10/19. Continue to monitor BMP daily. 4. Hypertension ? Hypertensive to the 170s to 180s on admit. Restarted home amlodipine and losartan with good improvement. Pain control as noted above. IV hydralazine ordered for systolic BP greater than 170 as well. 5. Mild chronic iron deficiency anemia ? Hemoglobin stable at baseline -. Continue home iron supplement. 6. GERD ? Continue home PPI. 7. Class II obesity ? BMI 35 on admit. Encouraged weight loss. DVT prophylaxis: Lovenox CODE STATUS: Full code, verified Expected disposition: Home, 1 to 2 days Total clinical time spent by myself addressing the patient's medical issues, reviewing all the data, and collaborating with patient's care team: 35 minutes.
[2024-10-22 08:22] LABS: Hematocrit 38.4 % (37-47); Hemoglobin 12.1 g/dL (12.0-15.0); Mean Corp Hgb Conc 31.5 g/dL (32-36); Mean Corpuscular Volume 82.4 fL (81-99); Mean Platelet Vol. 9.5 fl (6.2-12.0); Platelet Count 393 K/mm3 (150-450); RBC Distribution Width CV 14.1 % (11.6-14.6); RBC Distribution Width SD 41.9 fl (35.1-43.9); Red Blood Count 4.66 M/mm3 (4.2-5.4)
[2024-10-22 09:06] VITALS: BP 142/89; PULSE 77; RESP 16; TEMP 36.8; O2SAT 96
[2024-10-22 09:08] LABS: ALB/GLOB Ratio 1.2 RATIO (0.9-2.4); AST(SGOT) 32 U/L (<=31); Alanine Aminotransfer ALT/SGPT 25 U/L (<=34); Alkaline Phosphatase 102 U/L (35-104); Anion Gap 12 (5-15); BUN 5 mg/dL (4-19); BUN/Creat Ratio 8.8 RATIO (10-20); Calcium,Total 10.6 mg/dL (7.6-11.0); Carbon Dioxide 28.3 mmol/L (21.0-32.0); Chloride 97 mmol/L (98-108); Creatinine, Serum 0.59 mg/dL (0.70-1.20); EST Glomerular Filtration Rate 114 (>60); Estimated Creatinine Clearance 134.66 ml/min (50-250); Globulin 3.3 g/dL (2.2-4.2); Glucose 106 mg/dL (70-99); Potassium 3.6 mmol/L (3.3-5.1); Protein, Total 7.3 g/dL (5.9-8.4); Sodium Level 137 mmol/L (133-145); Total Bilirubin 0.29 mg/dL (0.00-1.30)
[2024-10-22] MEDS: Ferrous Gluconate 324 MG Tablet PO (10:49)
[2024-10-22 11:17] VITALS: BP 126/63; PULSE 79; RESP 16; TEMP 36.8; O2SAT 98
--- NOTE | 2024-10-22 11:37 | PCM.DC ---
Discharge Instructions Diet Discharge Diet: Light diet - advance as tolerated (Avoid fatty and oily food.) DC O2, CPAP, BIPAP needs Home O2 Discharge instructions: No Dressing / Incision Discharge Activity: Return to Normal Activity Weight Bearing Status: Weight bearing as tolerated Dressing / Incision Call your doctor if you observe: Fever of 101 or Higher, Coldness, Increased Pain, Numbness or Tingling, Change in Color, Inability to urinate, Inability to have a bowel movement, Shortness of breath, Dizziness, Fainting spells, Swelling in the ankles, Chest pain, Prolonged hiccupping, Increased palpitations (irregular heartbeat) and Calf discomfort Follow Up Care When: IN 2 WEEKS Test Results: Test results from this visit will be discussed in further detail at your follow-up appointment, if applicable. Discharge Plan Admission Admit Date/Time: 10/16/24 00:51 Primary Reason for Your Visit: Acute on recurrent pancreatitis Attending Provider: Niranjan Noe Primary Care Provider: Mary Escobar Consulting Providers: Davis Best; Arturo Sotelo; Kris Gibbs Discharge Orders/Prescriptions Prescriptions: New sennosides-docusate sodium [Stimulant Laxative Plus] 8.6-50 mg Tablet 2 tab PO BID PRN (Reason: Constipation) Qty: 0 0RF Rx Instructions: [id number] Creon 24,000-76,000 -120,000 unit Capsule,Delayed Release(Dr/Ec) 2 cap PO TIDCM 30 Days Qty: 180 2RF Continued pantoprazole 40 mg tablet,delayed release (DR/EC) 40 mg PO DAILY Qty: 30 2RF ipratropium bromide 42 mcg (0.06 %) spray,non-aerosol 1 spray INTRANASAL TID PRN PRN (Reason: allergy symptoms) fluoxetine 40 mg capsule 40 mg PO DAILY amlodipine 10 mg Tablet 10 mg PO DAILY 30 Days Qty: 30 2RF losartan 100 mg Tablet 100 mg PO DAILY 30 Days Qty: 30 2RF ondansetron 4 mg tablet,disintegrating 4 mg PO TID PRN PRN (Reason: nausea and vomiting) Qty: 30 0RF Changed oxycodone 5 mg Tablet 2.5 mg PO Q6H PRN PRN (Reason: Pain Score 4-10) 3 Days Qty: 7 0RF ferrous gluconate 324 mg (37.5 mg iron) tablet 324 mg PO QODAY Qty: 60 2RF Discontinued prochlorperazine maleate [Compazine] 5 mg tablet 5 mg PO BID PRN (Reason: nausea and vomiting) phentermine 37.5 mg tablet 37.5 mg PO DAILY Referrals / Follow Up: Mary Escobar MD [Primary Care Provider] - Disposition Disposition (needs filled in before D/C Order can be placed): Home, Self Care
--- NOTE | 2024-10-22 11:58 | DS.PCM_ITS ---
Providers Date of Admission: 10/16/24 Date of Discharge: 10/22/24 Primary Care Physician: Mary Escobar MD Consultations 10/16/24 08:05 Consult: Gastroenterology Routine Consulting Provider: Arturo Sotelo Reason for Consult: recurrent pancreatitis EMERGENT Consult: No MD Notified: Yes Date Notified: 10/16/24 Time Notified: 08:21 Method of Notification: Text Reason For Visit: PANCREATITIS Diagnosis Discharge Diagnosis (1) Acute recurrent pancreatitis: Status: Acute Code(s): K85.90 - Acute pancreatitis without necrosis or infection, unspecified Plan Patient is a 44-year-old female who presented to [facility] ED on 10/16/2024 with recurrent abdominal pain. 1. Recurrent acute pancreatitis: ? GI following. Hospitalized for initial pancreatitis episode at the end of August. Had ERCP done with choledocholithiasis that was removed, biliary stricture that was dilated and temporary stent placed. Hospitalized again from 09/25-09/29 for recurrent acute pancreatitis; GI followed and patient improved with conservative management and IV antibiotics. Did well for a few weeks but then began to have pain again leading to this admission. CT abdomen pelvis showed improved pancreatitis without pseudocyst or abscess and biliary stent without biliary ductal dilatation. Lipase 237, notably was 287 on 09/25. However, CRP and ESR severely elevated. Per Dr. Sotelo, unclear etiology for recurrent pancreatitis but may be medication related. Notably patient was likely under resuscitated from a volume standpoint initially on this admission and with significant volume resuscitation now there has been good improvement. Fentanyl patch every 72 hours added to pain regimen with improvement in pain control. CT abdomen pelvis on 10/20 continued to show findings of smoldering pancreatitis around the pancreatic head, but notably CRP is much improved from 173 on 10/18 down to 47 on 10/20. 10/22: Patient abdominal pain is resolved. Tolerated clear liquid advanced to full liquid and she tolerated. She wants to go home. Patient wanted fentanyl patch and oral opioid. It seems she is getting diminishing opioid. Oxycodone 2.5 mg Q6 hourly as needed total 7 tablets were given. Patient advised to follow-up with the [facility] for pancreatitis. Patient also given prescription for Creon. Advised to continue taking stool softener. Workup is scheduled for 1 week. 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 OARRS reviewed 2. Leukocytosis, resolved ? WBC count 12 on admission, worsened to 21 on hospital day 2 but then improved back to 12 on 10/18. Patient did have low-grade fever to 100.2 F on evening of 10/17 and was empirically started on IV Zosyn. Leukocytosis has resolved and appears more likely due to inflammation from pancreatitis as well as hemoconcentration from dehydration. Discontinued antibiotics on 10/19. 3. Hyponatremia, improved ? Sodium 128, chloride 93 on hospital day 2, down from sodium 134 and chloride 99. Suspect due to dehydration from poor p.o. intake. Given heavy IV fluid resuscitation with improvement to sodium 136 on 10/19. Continue to monitor BMP daily. 4. Hypertension ? Hypertensive to the 170s to 180s on admit. Restarted home amlodipine and losartan with good improvement. Pain control as noted above. IV hydralazine ordered for systolic BP greater than 170 as well. 5. Mild chronic iron deficiency anemia ? Hemoglobin stable at baseline -. Continue home iron supplement. 6. GERD ? Continue home PPI. 7. Class II obesity ? BMI 35 on admit. Encouraged weight loss. DVT prophylaxis: Lovenox CODE STATUS: Full code, verified Discharge medication reconciliation done. Discharge follow-up instructions completed. Discharge process discussed with the patient and all questions were answered to patient's satisfaction. Follow with PCP in 1 to 2 weeks Total time spent, exact 35 minutes on discharge meds reconciliation, examination, coordination of care with nurses and ancillary staff, review of imaging and blood test and discussion with the patient on follow-up instructions. Medications at Discharge Home Medications fluoxetine 40 mg capsule 40 mg PO DAILY mental health 09/12/24 ipratropium bromide 42 mcg (0.06 %) nasal spray 1 spray intranasal TID PRN PRN allergy symptoms 09/12/24 amlodipine 10 mg tablet 10 mg PO DAILY bp 30 days #30 tabs 09/19/24 losartan 100 mg tablet 100 mg PO DAILY bp 30 days #30 tabs 09/19/24 pantoprazole 40 mg tablet,delayed release 40 mg PO DAILY gerd #30 tabs 10/04/24 ferrous gluconate 324 mg (37.5 mg iron) tablet 324 mg PO QODAY iron #60 tabs 10/22/24 [id number] 24,000-76,000-120,000 unit capsule,delayed rel (Creon) 2 cap PO TIDCM 30 days #180 caps 10/22/24 ondansetron 4 mg disintegrating tablet 4 mg PO TID PRN PRN nausea and vomiting #30 tabs 10/22/24 oxycodone 5 mg tablet 2.5 mg (1/2 x 5 mg) PO Q6H PRN PRN Pain Score 4-10 3 days #7 tabs 10/22/24 sennosides 8.6 mg-docusate sodium 50 mg tablet (Stimulant Laxative Plus) 2 tab PO BID PRN Constipation #0 tabs 10/22/24 Physical Exam Narrative Seen and examined General: Alert, Oriented x3, Cooperative. BMI 35.3 kg/m? HEENT: Atraumatic, PERRLA, EOMI, Normocephalic. Oral: No Gingival or Mucosal Lesions/ Ulcerations Neck: Supple, No JVD, Negative Carotid Bruits Chest wall/Lungs: Air entry diminished in bilateral lung bases. No crepitation/rhonchi Cardiovascular: Regular rate and rhythm, Normal S1,S2, No M/G/R Abdomen: Bowel Sounds Present, Soft, Non Tender, Non-Distended : No dysuria. No renal angle tenderness. No suprapubic tenderness. Extremities: No edema, Capillary Refill Less than 3 Seconds Skin: No rashes, No breakdown Musculoskeletal: No Tenderness to Palpation of Joints or Extremities Neurological: Cranial nerves II-XII grossly intact, DTR 2+/4. No acute focal neurological deficit. Psych/Mental Status: Normal Affect, Appropriate. Weight / BMI Weight Weight: 205 lb 7.533 oz Body Mass Index (BMI) 35.2 ABG / Lab / Microbiology Data 10/22/24 07:42 10/22/24 07:42 Laboratory: Laboratory Results - last 24 hr 10/22/24 07:42: WBC 8.0, RBC 4.66, Hgb 12.1, Hct 38.4, MCV 82.4, MCH 26.0 L, M CHC 31.5 L, RDW Std Deviation 41.9, RDW Coeff of Chelsie 14.1, Plt Count 393, MPV 9.5, Sodium 137, Potassium 3.6, Chloride 97 L, Carbon Dioxide 28.3, Anion Gap 12, BUN 5, Creatinine 0.59 L, Estim Creat Clear Calc 134.66, Est GFR (MDRD) Non- Af 114, BUN/Creatinine Ratio 8.8 L, Glucose 106 H, Calcium 10.6, Total Bilirubin 0.29, AST 32, ALT 25, Alkaline Phosphatase 102, Total Protein 7.3, Albumin 4.0, Globulin 3.3, Albumin/Globulin Ratio 1.2 Microbiology: Microbiology 10/18/24 02:19 Urine, Clean Catch Urine Culture - Final GPC Poss Enterococcus sp 10/18/24 07:29 Blood Culture (Wb) - Right Wrist Blood Culture - Preliminary No growth in 48 hours. 10/18/24 07:15 Blood Culture (Wb) - Left Wrist Blood Culture - Preliminary No growth in 48 hours. D/C Instructions Discharge Diet: Light diet - advance as tolerated (Avoid fatty and oily food.) Weight Bearing Status: Weight bearing as tolerated Call your doctor if you observe: Fever of 101 or Higher, Coldness, Increased Pain, Numbness or Tingling, Change in Color, Inability to urinate, Inability to have a bowel movement, Shortness of breath, Dizziness, Fainting spells, Swelling in the ankles, Chest pain, Prolonged hiccupping, Increased palpitations (irregular heartbeat) and Calf discomfort DC O2, CPAP, BIPAP Needs Home O2 Discharge instructions: No When: IN 2 WEEKS Meaningful Use Info Meaningful Use Meaningful Use Diagnoses (Choose all that apply): None applicable Ischemic Stroke Statin Dosing Therapy Reference: STATIN DOSE THERAPY REFERENCE: * Patients > 75 years receive moderate or high dose statin therapy. * Patients 75 years or YOUNGER should receive HIGH intensity statin dose unless contraindicated. You will be required to document reason for non-treatment if statin daily dose does not meet guidelines. HIGH DOSE STATIN THERAPY DAILY Atorvastatin > than or = to 40 mg Rosuvastatin > than or = to 20 mg Amlodipine + Atorvastatin > than or = to 2.5/40 mg Ezetimibe + Simvastatin 10/80 mg Simvastatin 80mg Discharge Plan Admission Admit Date/Time: 10/16/24 00:51 Primary Reason for Your Visit: Acute on recurrent pancreatitis Attending Provider: Niranjan Noe Primary Care Provider: Mary Escobar Consulting Providers: Davis Best; Friend,Arturo; Kris Gibbs Instructions Forms: Work / School Excuse Discharge Orders/Prescriptions Prescriptions: New sennosides-docusate sodium [Stimulant Laxative Plus] 8.6-50 mg Tablet 2 tab PO BID PRN (Reason: Constipation) Qty: 0 0RF Rx Instructions: [id number] Creon 24,000-76,000 -120,000 unit Capsule,Delayed Release(Dr/Ec) 2 cap PO TIDCM 30 Days Qty: 180 2RF Continued pantoprazole 40 mg tablet,delayed release (DR/EC) 40 mg PO DAILY Qty: 30 2RF ipratropium bromide 42 mcg (0.06 %) spray,non-aerosol 1 spray INTRANASAL TID PRN PRN (Reason: allergy symptoms) fluoxetine 40 mg capsule 40 mg PO DAILY amlodipine 10 mg Tablet 10 mg PO DAILY 30 Days Qty: 30 2RF losartan 100 mg Tablet 100 mg PO DAILY 30 Days Qty: 30 2RF ondansetron 4 mg tablet,disintegrating 4 mg PO TID PRN PRN (Reason: nausea and vomiting) Qty: 30 0RF Changed oxycodone 5 mg Tablet 2.5 mg PO Q6H PRN PRN (Reason: Pain Score 4-10) 3 Days Qty: 7 0RF ferrous gluconate 324 mg (37.5 mg iron) tablet 324 mg PO QODAY Qty: 60 2RF Discontinued prochlorperazine maleate [Compazine] 5 mg tablet 5 mg PO BID PRN (Reason: nausea and vomiting) phentermine 37.5 mg tablet 37.5 mg PO DAILY Referrals / Follow Up: Mary Escobar MD [Primary Care Provider] - Disposition Disposition (needs filled in before D/C Order can be placed): Home, Self Care Charges/Coding Visit Charges Inpatient E&M: 96101 Subs Hosp L2
--- NOTE | 2024-10-22 12:25 | CASEMGMT ---
TC to [facility], there is no copay for Creon but they need to order it in for tomorrow. RN CM into pt room, pt walking around room, pt is aware of medication Creon and that it will be ready tomorrow. Pt denies any homegoing needs. Pt is ready for dc.
--- NOTE | 2024-10-22 13:21 | NURSING ---
removed fentanyl patch and wasted in waste edna reyes rn witnessed
--- NOTE | 2024-10-22 13:39 | PHA.DC.MC.R ---
Pharmacy [facility] has performed discharge medication reconciliation and counseling for this patient. Patient asked if a script was sent for fentanyl patches, it was not so she asked me to look into it. Backline text was failing to send to Dr. Noe. Spoke to nurse Sharon, she was texting Dr Noe to see if pt should have fentanyl patches. 1. CREON 24,000 UNITS 2C PO TIDCM 2. SENNA/DOCUSATE 2T PO BID PRN CONSTIPATION 3. FERROUS SULFATE CHANGED TO EVERY OTHER DAY 4. STOP PHENTERMINE AND COMPAZINE The patient's discharge medication list was reviewed for discrepancies and discrepancies were resolved. The patient was counseled on the following discharge medications and changes in medications for homegoing were reviewed. The Reason for Use, instructions for use, and potential side effects were reviewed for all new medications. The patient's questions regarding all of their medications were answered. The patient was able to verbally demonstrate an understanding of their discharge medications. Medications at Discharge Home Medications fluoxetine 40 mg capsule 40 mg PO DAILY mental health 09/12/24 ipratropium bromide 42 mcg (0.06 %) nasal spray 1 spray intranasal TID PRN PRN allergy symptoms 09/12/24 amlodipine 10 mg tablet 10 mg PO DAILY bp 30 days #30 tabs 09/19/24 losartan 100 mg tablet 100 mg PO DAILY bp 30 days #30 tabs 09/19/24 pantoprazole 40 mg tablet,delayed release 40 mg PO DAILY gerd #30 tabs 10/04/24 ferrous gluconate 324 mg (37.5 mg iron) tablet 324 mg PO QODAY iron #60 tabs 10/22/24 visfky-mnpmhhxi-mikuyxu 24,000-76,000-120,000 unit capsule,delayed rel (Creon) 2 cap PO TIDCM 30 days #180 caps 10/22/24 ondansetron 4 mg disintegrating tablet 4 mg PO TID PRN PRN nausea and vomiting #30 tabs 10/22/24 oxycodone 5 mg tablet 2.5 mg (1/2 x 5 mg) PO Q6H PRN PRN Pain Score 4-10 3 days #7 tabs 10/22/24 sennosides 8.6 mg-docusate sodium 50 mg tablet (Stimulant Laxative Plus) 2 tab PO BID PRN Constipation #0 tabs 10/22/24
== END 2024-10-22 13:10 | disposition home or self-care (01) | DRG 439 ==
LOC: ED 22:19 → MS3 10-16 00:46
PROVIDERS: Family Medicine; Hospitalist; Internal Medicine Gastroenterology; Admitting Provider Family Medicine; Emergency Provider Emergency Medicine; PCP Family Medicine; Visit Provider Internal Medicine
DX: K85.90 Acute pancreatitis without necrosis or infection, unspecified (principal); E87.1 Hypo-osmolality and hyponatremia; I10 Essential (primary) hypertension; D50.9 Iron deficiency anemia, unspecified; E66.812 Obesity, class 2; K21.9 Gastro-esophageal reflux disease without esophagitis; F41.9 Anxiety disorder, unspecified; E86.0 Dehydration; R50.9 Fever, unspecified; Z68.35 Body mass index [BMI] 35.0-35.9, adult; Z79.899 Other long term (current) drug therapy; Z87.891 Personal history of nicotine dependence; Z90.49 Acquired absence of other specified parts of digestive tract
CPT/HCPCS: 36415; 71046; 74177; 80048; 80053; 80076; 81001; 83605; 83690; 84145; 84156; 85025; 85027; 85652; 86140; 87040; 87086; 87088; 94668; 99284; Q9967; A4216; J2405

== ENCOUNTER 2024-11-29 12:04 | Day surgery (SDC) | payer BC, SELFPAY ==
[2024-11-29] VITALS (7 sets, daily range): BP systolic 115–146; BP diastolic 77–87; PULSE 66–79; RESP 16–18; TEMP 36–36.8; O2SAT 96–99; BMI 36.0
--- NOTE | 2024-11-29 12:22 | PCM.PRE.AN2 ---
ASA Classification* ASA Classification ASA Classification: 2 Assessment & Plan Anesthesia* Anesthesia Assessment Anesthesia Assessment: Discussed sedation and/or anesthesia options, risks, benefits, and alternatives with patient/parents/legal guardian/POA. Questions invited. The patient/parents/legal guardian/POA seems to understand and agrees to proceed with anesthesia plan. Reviewed the physical assessment, medical history, allergy history and patient home medications list prior to surgery/procedure/anesthetic and documented any changes. Performed airway and anesthesia risk assessments. Anesthesia Type Anesthesia Type: General Anesthesia Focused Assessment* Airway Assessment Mouth opens: >3 cm Mallampati Score: II Labs Anesthesia Preop lab: CBC WBC 8.0 K/mm3 (4.4-11.0) 10/22/24 07:42 10/22/24 RBC 4.66 M/mm3 (4.2-5.4) 10/22/24 07:42 10/22/24 Hgb 12.1 g/dL (12.0-15.0) 10/22/24 07:42 10/22/24 Hct 38.4 % (37-47) 10/22/24 07:42 10/22/24 Plt Count 393 K/mm3 (150-450) 10/22/24 07:42 10/22/24 CHEMISTRY Potassium 3.6 mmol/L (3.3-5.1) 10/22/24 07:42 10/22/24 Sodium 137 mmol/L (133-145) 10/22/24 07:42 10/22/24 Magnesium 1.9 mg/dL (1.5-2.2) 09/26/24 05:18 09/26/24 Phosphorus 3.4 mg/dL (2.7-4.5) 09/26/24 05:18 09/26/24 BUN 5 mg/dL (4-19) 10/22/24 07:42 10/22/24 Creatinine 0.59 mg/dL (0.70-1.20) L 10/22/24 07:42 10/22/24 Glucose 106 mg/dL (70-99) H 10/22/24 07:42 10/22/24 POC Glucose 68 mg/dL (74-106) L 09/27/24 16:25 09/27/24 TSH 0.397 uIU/mL (0.300-4.200) 09/13/24 05:08 09/13/24 COAG Urine Test Negative Negative 09/18/24 03:00 09/18/24 Pre-Assessment Diagnosis/Proposed Procedure Planned Operative Procedure(s): ERCP Anesthesia History Anesthesia History - marketing agent: Anesthesia History - marketing agent Hx Hospitalization Yes: 09/2024, PANCREATITIS 11/26/24 09:31 WC Any Problems With Anesthesia No 11/26/24 09:31 Cholinesterase deficiency No 11/26/24 09:31 You/Your Family Experience No 11/26/24 09:31 fever (hyperthermia) with Relationship Recent Exposure to Contagious No 10/17/24 08:48 Disease Does patient have nerve No 11/26/24 09:31 stimulator Patient instructed to have device shut off --Does patient have Pacemaker or ICD? When Was Last Pacemaker Check QUESTION #4 FULL TEXT: You/Your Family Experience fever (hyperthermia) with Anesthesia Last Oral Intake Last Oral intake: Last Oral Intake NPO since Meds taken in AM with sips of water? Meds patient instructed to take am of surgery PONV PONV - marketing agent: PONV - marketing agent Female Yes 11/26/24 09:31 HX of Motion Sickness Yes 11/26/24 09:31 HX of N/V After Surgery No 11/26/24 09:31 Non-Smoker Yes 11/26/24 09:31 Duration of Surgery greater No 11/26/24 09:31 than 60 minutes Number of Risk Factors 3 11/26/24 09:31 PONV Score Moderate Risk 11/26/24 09:31 Height & Weight Height & Weight: Anesthesia: Height & Weight Height 5 ft 4 in 10/22/24 11:46 Respiratory Assessment Respiratory Assessment - marketing agent: Respiratory Tract Infection Hx - marketing agent Hx Respiratory Tract Infection No 11/26/24 09:31 STOP Sleep Apnea STOP Sleep Apnea - marketing agent: STOP Sleep Apnea - marketing agent Hx Hypertension Yes: CONTROLLED WITH MEDS 11/26/24 09:31 Hx Sleep Apnea No 11/26/24 09:31 CPAP BIPAP Do you snore loudly (louder No 11/26/24 09:31 than talking or can be heard Do you often feel tired/ No 11/26/24 09:31 fatigued/ sleepy during daytime? Has anyone observed you stop No 11/26/24 09:31 breathing during sleep? STOP Results Negative 11/26/24 09:31 QUESTION #5 FULL TEXT : Do you snore loudly (louder than talking or can be heard through closed doors)? 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 Specify any problems Hx of Preganancy in last 3 No 11/26/24 09:31 Months Nurse Filling Out Transfusion [email or web address] 11/26/24 09:31 & Questions: Date: 11/26/24 11/26/24 09:31 Time: 09:35 11/26/24 09:31 Patient unable to answer at this time (ie. confused, unrespo /Reproduction History /Reproductive History - marketing agent: /Reproductive Hx- marketing agent Hx Now No 11/26/24 09:31 Gestational Age (in weeks): EDC: Hx Hx Para Hx Section SAB No 11/26/24 09:31 Active Medications Active Medications: Current Medications Generic Name Dose Route Start Last Admin Trade Name Freq PRN Reason Stop Dose Admin Lactated Ringer's 1,000 mls @ 15 mls/hr 11/29/24 12:15 IV .Q48H NANCY PFSH Medical History Gastric reflux History of biliary stent insertion Intractable abdominal pain Acute recurrent pancreatitis Hypertension Pancreatitis Hypertension Anxiety Home Medications ?Medication ?Instructions ?Recorded ?Last Taken ?Type fluoxetine 40 mg capsule 40 mg PO DAILY mental health 09/12/24 Unknown History ipratropium bromide 42 mcg (0.06 1 spray intranasal TID PRN PRN 09/12/24 Unknown History %) nasal spray allergy symptoms amlodipine 10 mg tablet 10 mg PO DAILY bp 30 days #30 tabs 09/19/24 Unknown Rx losartan 100 mg tablet 100 mg PO DAILY bp 30 days #30 tabs 09/19/24 Unknown Rx pantoprazole 40 mg tablet,delayed 40 mg PO DAILY gerd #30 tabs 10/04/24 Unknown Rx release spoald-wlfykodo-wsjcazm 2 cap PO TIDCM 30 days #180 caps 10/22/24 Unknown Rx 24,000-76,000-120,000 unit capsule,delayed rel (Creon) ondansetron 4 mg disintegrating 4 mg PO TID PRN PRN nausea and 10/22/24 Unknown Rx tablet vomiting #30 tabs sennosides 8.6 mg-docusate sodium 2 tab PO BID PRN Constipation #0 10/22/24 Unknown Rx 50 mg tablet (Stimulant Laxative tabs Plus) Allergy/AdvReac Type Severity Reaction Status Date / Time No Known Allergies Allergy Verified 11/26/24 09:29 Family History Other Hypertension Surgical History S/P ERCP Hx of cholecystectomy Social History Smoking Status: Former smoker alcohol intake: current alcohol intake frequency: 0-2 drinks per day substance use type: does not use Review of Systems (Anesthesia) ROS Narrative System reviewed and no additional complaints, except as documented.
[2024-11-29] MEDS: Lactated Ringers 1,000 ML 15 ML IV (12:49)
[2024-11-29 12:51] LABS: Internal QC Validated? YES +Cl - CLEAR BKGD; Pregnancy, Urine Negative Negative
--- NOTE | 2024-11-29 13:15 | FLU_PTH ---
PATIENT: CASIMIRO PUTNAM LOC: EN U#:[id number] AGE/SX: 44/F ROOM: RE11/29/[address]: Dr. Arturo Sotelo DO : 1980 BED: DIS: 11/29/2024 SPEC #: [id number] RECD: 11/29/24 14:25 STATUS: ALTON POPEYE #: [id number] DEBBIE: 11/29/24 13:[address]: Arturo Sotelo DEPT: CYTOLOGY RECD BY: Leonardo Alaniz ENTERED: 11/30/24 09:33 SP TYPE: Fluid OTHR DR: Mary Escobar MD Tissues: A - Biliary tract, NOS Procedures: Special Stain Group II Surgery Specimen Level IV Cytospin Fluid HEADER OPERATION: ERCP, stent removal, balloon dilation PRE-OP DIAGNOSIS: Pancreatitis, choledocholithiasis TISSUE SUBMITTED: A- Biliary stent for cytology DIAGNOSIS CYTOLOGY A. Biliary stent (cytospin, cellblock), ERCP: * No malignant cells identified. CYTOLOGY STUDY Slides are reviewed. CYTOLOGY GROSS A. Received is 10cm black stent with 0.3 ml of yellow thick material labeled with the patient's name and and designated per the requisition as Biliary stent. Submitted for cytology and cell block preparation. Mr 11/30/2024 CPT: 38390,62689
--- NOTE | 2024-11-29 13:19 | PCM.PRE.AN2 ---
ASA Classification* ASA Classification ASA Classification: 2 Assessment & Plan Anesthesia* Anesthesia Assessment Anesthesia Assessment: Discussed sedation and/or anesthesia options, risks, benefits, and alternatives with patient/parents/legal guardian/POA. Questions invited. The patient/parents/legal guardian/POA seems to understand and agrees to proceed with anesthesia plan. Reviewed the physical assessment, medical history, allergy history and patient home medications list prior to surgery/procedure/anesthetic and documented any changes. Performed airway and anesthesia risk assessments. Anesthesia Type Anesthesia Type: MAC (GA bkup) Anesthesia Focused Assessment* Temperature: 98.1 F Pulse Rate: 75 Blood Pressure: 146/86 Respiratory Rate: 16 Pulse Ox: 99 Airway Assessment Mouth opens: >3 cm Mallampati Score: II Labs Anesthesia Preop lab: CBC WBC 8.0 K/mm3 (4.4-11.0) 10/22/24 07:42 10/22/24 RBC 4.66 M/mm3 (4.2-5.4) 10/22/24 07:42 10/22/24 Hgb 12.1 g/dL (12.0-15.0) 10/22/24 07:42 10/22/24 Hct 38.4 % (37-47) 10/22/24 07:42 10/22/24 Plt Count 393 K/mm3 (150-450) 10/22/24 07:42 10/22/24 CHEMISTRY Potassium 3.6 mmol/L (3.3-5.1) 10/22/24 07:42 10/22/24 Sodium 137 mmol/L (133-145) 10/22/24 07:42 10/22/24 Magnesium 1.9 mg/dL (1.5-2.2) 09/26/24 05:18 09/26/24 Phosphorus 3.4 mg/dL (2.7-4.5) 09/26/24 05:18 09/26/24 BUN 5 mg/dL (4-19) 10/22/24 07:42 10/22/24 Creatinine 0.59 mg/dL (0.70-1.20) L 10/22/24 07:42 10/22/24 Glucose 106 mg/dL (70-99) H 10/22/24 07:42 10/22/24 POC Glucose 68 mg/dL (74-106) L 09/27/24 16:25 09/27/24 TSH 0.397 uIU/mL (0.300-4.200) 09/13/24 05:08 09/13/24 COAG Urine Test Negative Negative 11/29/24 12:25 11/29/24 Pre-Assessment Diagnosis/Proposed Procedure Planned Operative Procedure(s): ERCP Anesthesia History Anesthesia History - director of financial aid: Anesthesia History - director of financial aid Hx Hospitalization Yes: 09/2024, PANCREATITIS 11/26/24 09:31 [facility] Any Problems With Anesthesia No 11/26/24 09:31 Cholinesterase deficiency No 11/26/24 09:31 You/Your Family Experience No 11/26/24 09:31 fever (hyperthermia) with Relationship Recent Exposure to Contagious No 11/29/24 12:42 Disease Does patient have nerve No 11/26/24 09:31 stimulator Patient instructed to have device shut off --Does patient have Pacemaker or ICD? When Was Last Pacemaker Check QUESTION #4 FULL TEXT: You/Your Family Experience fever (hyperthermia) with Anesthesia Last Oral Intake Last Oral intake: Last Oral Intake NPO since Meds taken in AM with sips of water? Meds patient instructed to take am of surgery PONV PONV - director of financial aid: PONV - director of financial aid Female Yes 11/26/24 09:31 HX of Motion Sickness Yes 11/26/24 09:31 HX of N/V After Surgery No 11/26/24 09:31 Non-Smoker Yes 11/26/24 09:31 Duration of Surgery greater No 11/26/24 09:31 than 60 minutes Number of Risk Factors 3 11/26/24 09:31 PONV Score Moderate Risk 11/26/24 09:31 Height & Weight Height & Weight: Anesthesia: Height & Weight Height 5 ft 4 in 11/29/24 12:47 Weight: 95.2 kg 11/29/24 12:47 Body Mass Index (BMI) 36.0 11/29/24 12:47 Respiratory Assessment Respiratory Assessment - director of financial aid: Respiratory Tract Infection Hx - director of financial aid Hx Respiratory Tract Infection No 11/26/24 09:31 STOP Sleep Apnea STOP Sleep Apnea - director of financial aid: STOP Sleep Apnea - director of financial aid Hx Hypertension Yes: CONTROLLED WITH MEDS 11/26/24 09:31 Hx Sleep Apnea No 11/26/24 09:31 CPAP BIPAP Do you snore loudly (louder No 11/26/24 09:31 than talking or can be heard Do you often feel tired/ No 11/26/24 09:31 fatigued/ sleepy during daytime? Has anyone observed you stop No 11/26/24 09:31 breathing during sleep? STOP Results Negative 11/26/24 09:31 QUESTION #5 FULL TEXT : Do you snore loudly (louder than talking or can be heard through closed doors)? 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 Specify any problems Hx of Preganancy in last 3 No 11/26/24 09:31 Months Nurse Filling Out Transfusion [email or web address] 11/26/24 09:31 & Questions: Date: 11/26/24 11/26/24 09:31 Time: 09:35 11/26/24 09:31 Patient unable to answer at this time (ie. confused, unrespo /Reproduction History /Reproductive History - director of financial aid: /Reproductive Hx- director of financial aid Hx Now No 11/26/24 09:31 Gestational Age (in weeks): EDC: Hx Hx Para Hx Section SAB No 11/26/24 09:31 Active Medications Active Medications: Current Medications Generic Name Dose Route Start Last Admin Trade Name Freq PRN Reason Stop Dose Admin Lactated Ringer's 1,000 mls @ 15 mls/hr 11/29/24 12:15 11/29/24 12:49 IV 15 mls/hr .Q48H NANCY Administration PFSH Medical History Gastric reflux History of biliary stent insertion Intractable abdominal pain Acute recurrent pancreatitis Hypertension Pancreatitis Hypertension Anxiety Home Medications ?Medication ?Instructions ?Recorded ?Last Taken ?Type fluoxetine 40 mg capsule 40 mg PO DAILY mental health 09/12/24 Unknown History ipratropium bromide 42 mcg (0.06 1 spray intranasal TID PRN PRN 09/12/24 Unknown History %) nasal spray allergy symptoms amlodipine 10 mg tablet 10 mg PO DAILY bp 30 days #30 tabs 09/19/24 Unknown Rx losartan 100 mg tablet 100 mg PO DAILY bp 30 days #30 tabs 09/19/24 Unknown Rx pantoprazole 40 mg tablet,delayed 40 mg PO DAILY gerd #30 tabs 10/04/24 Unknown Rx release hmelqp-wbevnhma-gsnamcp 2 cap PO TIDCM 30 days #180 caps 10/22/24 Unknown Rx 24,000-76,000-120,000 unit capsule,delayed rel (Creon) ondansetron 4 mg disintegrating 4 mg PO TID PRN PRN nausea and 10/22/24 Unknown Rx tablet vomiting #30 tabs sennosides 8.6 mg-docusate sodium 2 tab PO BID PRN Constipation #0 10/22/24 Unknown Rx 50 mg tablet (Stimulant Laxative tabs Plus) Allergy/AdvReac Type Severity Reaction Status Date / Time No Known Allergies Allergy Verified 11/29/24 12:41 Family History Other Hypertension Surgical History S/P ERCP Hx of cholecystectomy Social History Smoking Status: Former smoker alcohol intake: current alcohol intake frequency: 0-2 drinks per day substance use type: does not use Review of Systems (Anesthesia) ROS Narrative System reviewed and no additional complaints, except as documented.
--- NOTE | 2024-11-29 13:23 | HP.PCM_ITS ---
HPI - General General Date of Admission: 11/29/24 Date of Service: 11/29/24 HPI Narrative CASIMIRO PUTNAM, is a 44 F who presents for biliary stent removal. Hospitalized for initial pancreatitis episode at the end of August. Had ERCP done with choledocholithiasis that was removed, biliary stricture that was dilated and temporary stent placed. Hospitalized again from 09/25-09/29 for recurrent acute pancreatitis; the patient improved with conservative management and IV antibiotics. Did well for a few weeks but then began to have pain again leading to this admission. CT abdomen pelvis showed improved pancreatitis without pseudocyst or abscess and biliary stent without biliary ductal dilatation. [facility] Medical History Gastric reflux History of biliary stent insertion Intractable abdominal pain Acute recurrent pancreatitis Hypertension Pancreatitis Hypertension Anxiety Home Medications ?Medication ?Instructions ?Recorded ?Last Taken ?Type fluoxetine 40 mg capsule 40 mg PO DAILY mental health 09/12/24 Unknown History ipratropium bromide 42 mcg (0.06 1 spray intranasal TI D PRN PRN 09/12/24 Unknown History %) nasal spray allergy symptoms amlodipine 10 mg tablet 10 mg PO DAILY bp 30 days #3 0 tabs 09/19/24 Unknown Rx losartan 100 mg tablet 100 mg PO DAILY bp 30 days # 30 tabs 09/19/24 Unknown Rx pantoprazole 40 mg tablet,delayed 40 mg PO DAILY gerd #30 tabs 10/04/24 Unknown Rx release jmmheh-dgoxiuzt-skyskqf 2 cap PO TIDCM 30 days #180 caps 10/22/24 Unknown Rx 24,000-76,000-120,000 unit capsule,delayed rel (Creon) ondansetron 4 mg disintegrating 4 mg PO TID PRN PRN na usea and 10/22/24 Unknown Rx tablet vomiting #30 tabs sennosides 8.6 mg-docusate sodium 2 tab PO BID PRN Con stipation #0 10/22/24 Unknown Rx 50 mg tablet (Stimulant Laxative tabs Plus) Allergy/AdvReac Type Severity Reaction Status Date / Time No Known Allergies Allergy Verified 11/29/24 12:41 Family History Other Hypertension Surgical History S/P ERCP Hx of cholecystectomy Social History Smoking Status: Former smoker alcohol intake: current alcohol intake frequency: 0-2 drinks per day substance use type: does not use ROS Constitutional Constitutional: Denies fatigue, fever(s), poor appetite, weight gain or weight loss Gastrointestinal Gastrointestinal: Reports abdominal pain; Denies belching, bloating, change in bowel habits, change in stool character, chewing difficulty, coffee ground emesis, constipation, cramping, diarrhea, dyspepsia, dysphagia, early satiety, excessive flatus, fecal incontinence, heartburn, hematemesis, hematochezia, hemorrhoids, loose stools, melena, nausea, odynophagia, rectal bleeding, tenesmus, vomiting or weight changes Vital Signs Vital Signs Vital Signs: 11/29/24 12:42 11/29/24 12:47 11/29/24 13:20 Temperature 98.1 F 98.1 F Temperature Source Temporal Pulse Rate 75 75 Respiratory Rate 16 16 Respiratory Pattern Normal Blood Pressure 146/86 H 146/86 H Blood Pressure Mean 106 Blood Pressure Source Monitor Blood Pressure Position Semi-Fowlers Blood Pressure Location Left Arm Pulse Ox 99 99 Oxygen Delivery Method Room Air Weight Weight: 209 lb 14.081 oz Body Mass Index (BMI) 36.0 Physical Exam Const alert, oriented x3, no apparent distress and healthy appearing General Appearance: cooperative GI normal to inspection, nondistended, normoactive bowel sounds, soft to palpation, non-tender and non-distended Percussion: normal to percussion Rectal Exam: deferred Results Lab / Micro Data Labs: Laboratory Results - last 24 hr 11/29/24 12:25: Urine Test Negative Assessment & Plan Assessment/Plan (1) Pancreatitis: QUALIFIERS: Chronicity: acute Pancreatitis type: idiopathic Acute pancreatitis complication: no infection or necrosis Qualified Code(s): K85.00 - Idiopathic acute pancreatitis without necrosis or infection (2) Choledocholithiasis: PLAN: She will undergo ERCP with stent removal. She was explained alternatives, risk and benefits including understanding bleeding, infection, sepsis, perforation, need for emergent cath. She will have an ASA of 3.
--- NOTE | 2024-11-29 13:45 | RAD_ITS ---
PROCEDURE: ERCP BILIARY/PANCREAS; O.R. FLUORO FOR C-ARM 11/29/2024 REASON FOR EXAM: ERCP TECHNIQUE: Intraoperative fluoroscopy was performed for ERCP. 6 fluoroscopic images were also obtained. RAD/O.R. Fluoro for C-Arm IMPRESSION: Intraoperative fluoroscopy was performed for ERCP. 6 fluoroscopic images were also obtained. Reading Location: [address]
--- NOTE | 2024-11-29 13:45 | RAD_ITS ---
PROCEDURE: ERCP BILIARY/PANCREAS; O.R. FLUORO FOR C-ARM 11/29/2024 REASON FOR EXAM: ERCP TECHNIQUE: Intraoperative fluoroscopy was performed for ERCP. 6 fluoroscopic images were also obtained. RAD/ERCP Biliary/Pancreas IMPRESSION: Intraoperative fluoroscopy was performed for ERCP. 6 fluoroscopic images were also obtained. Reading Location: [address]
--- NOTE | 2024-11-29 14:15 | PCM.POST.ANE ---
Anesthesia: Postop Eval I Current Vital Signs Temperature: 98.3 F Pulse Rate: 79 Blood Pressure: 115/77 Respiratory Rate: 18 Pulse Ox: 98 Assessment Airway patent: Yes Spontaneous unlabored respirations: Yes nausea: No Vomiting: No Anesthesia Complication: No Fluid Hydration Crystalloid volume administer (ml): 800 Total IV fluid infused: 800 Progress Note Anesthesia document: Postop Eval 1 completed: Yes
--- NOTE | 2024-11-29 14:30 | OP.ERCP_ITS ---
Patient Name: Madison Liu Procedure Date: 11/29/2024 1:17 PM Date of : 1980 Age: 44 Procedure: ERCP Indications: Biliary stent removal Providers: Arturo Sotelo DO Referring MD: Mary Escobar Md Medicines: Monitored Anesthesia Care Patient Profile: This is a 44 year old female. Refer to note in patient chart for documentation of history and physical. Patient has symptoms. Complications: No immediate complications. Procedure: Pre-Anesthesia Assessment: - Prior to the procedure, a History and Physical was performed, and patient medications and allergies were reviewed. The patient is competent. The risks and benefits of the procedure and the sedation options and risks were discussed with the patient. All questions were answered and informed consent was obtained. Patient identification and proposed procedure were verified by the physician. Mental Status Examination: normal. Respiratory Examination: clear to auscultation. CV Examination: normal. ASA Grade Assessment: II - A patient with mild systemic disease. After reviewing the risks and benefits, the patient was deemed in satisfactory condition to undergo the procedure. The anesthesia plan was to use monitored anesthesia care (MAC). Immediately prior to administration of medications, the patient was re-assessed for adequacy to receive sedatives. The heart rate, respiratory rate, oxygen saturations, blood pressure, adequacy of pulmonary ventilation, and response to care were monitored throughout the procedure. The physical status of the patient was re-assessed after the procedure. After obtaining informed consent, the scope was passed under direct vision. Throughout the procedure, the patient's blood pressure, pulse, and oxygen saturations were monitored continuously. The Duodenoscope was introduced through the mouth, and advanced to the duodenum and used to inject contrast into the bile duct. The ERCP was accomplished without difficulty. The patient tolerated the procedure well. Scope In: 1:55:20 PM Scope Out: 2:05:07 PM Total Procedure Duration Time 0 hours 9 minutes 47 seconds Findings: The tugboat dispatcher film was normal. The esophagus was successfully intubated under direct vision. The scope was advanced to a normal major papilla in the descending duodenum without detailed examination of the pharynx, larynx and associated structures, and upper GI tract. The upper GI tract was grossly normal. The bile duct was deeply cannulated with the short-nosed traction sphincterotome. Contrast was injected. I personally interpreted the bile duct images. Ductal flow of contrast was adequate. Image quality was adequate. Contrast extended to the entire biliary tree. Opacification of the entire opacified area was successful. The maximum diameter of the ducts was 10 mm. The lower third of the main bile duct contained a single localized stenosis 6 mm in length. The main bile duct was mildly dilated and diffusely dilated, with a stone causing an obstruction. The largest diameter was 10 mm. A long 0.025 inch Jagwire was passed into the biliary tree. A 5 mm biliary sphincterotomy was made with a traction (standard) sphincterotome using ERBE electrocautery. There was no post-sphincterotomy bleeding. The biliary tree was swept with a 12 mm balloon starting at the bifurcation, left intrahepatic duct(s), left main hepatic duct, right intrahepatic duct(s) and right main hepatic duct. Sludge was swept from the duct. All stones were removed. One stent was removed from the biliary tree using a snare and sent for cytology. The stent was found to be partially occluded via the water column test. Impression: - A single localized biliary stricture was found in the lower third of the main bile duct. - The entire main bile duct was mildly dilated, with a stone causing an obstruction. - Choledocholithiasis was found. Complete removal was accomplished by biliary sphincterotomy and balloon extraction. - A biliary sphincterotomy was performed. - The biliary tree was swept. - One stent was removed from the biliary tree. Procedure Code(s): --- Professional --- 68457, Endoscopic retrograde cholangiopancreatography (ERCP); with removal of foreign body(s) or stent(s) from biliary/pancreatic duct(s) 95918, Endoscopic retrograde cholangiopancreatography (ERCP); with removal of calculi/debris from biliary/pancreatic duct(s) 62608, Endoscopic retrograde cholangiopancreatography (ERCP); with sphincterotomy/papillotomy 46008, 26, Endoscopic catheterization of the biliary ductal system, radiological supervision and interpretation CPT copyright 2021 [employer]. All rights reserved. The codes documented in this report are preliminary and upon commercial lines account assistant review may be revised to meet current compliance requirements. Arturo Sotelo DO 11/29/2024 2:29:31 PM This report has been signed electronically. Number of Addenda: 0 Note Initiated On: 11/29/2024 1:17 PM
--- NOTE | 2024-11-29 14:30 | OP.CCLET_ITS ---
11/29/2024 Mary Escobar Md Re : ERCP procedure for Madison Liu Dear Luz This procedure was performed on November. My impressions and recommendations are as follows: Impressions : - A single localized biliary stricture was found in the lower third of the main bile duct. - The entire main bile duct was mildly dilated, with a stone causing an obstruction. - Choledocholithiasis was found. Complete removal was accomplished by biliary sphincterotomy and balloon extraction. - A biliary sphincterotomy was performed. - The biliary tree was swept. - One stent was removed from the biliary tree. Recommendations : My findings are described in the full procedure note, which is enclosed. If I can be of further assistance, please feel free to contact me at . Sincerely, Arturo Sotelo, 11/29/2024 2:29:31 PM This report has been signed electronically.
[2024-11-29] MEDS: Lactated Ringers 1,000 ML 999 ML IV (14:33)
--- NOTE | 2024-11-29 14:55 | POSTOPAN2_ITS ---
Anesthesia Postop Eval I Sum Postop Eval Completion status Anesthesia document: Postop Eval 1 completed: Yes Anesthesia Postop Eval I Summary Anesthesia Postop Eval I Summary: Anesthesia Postop Eval I: Assessment Summary Airway patent Yes 11/29/24 14:15 [email or web address] [email or web address] Spontaneous unlabored Yes 11/29/24 14:15 [email or web address] [email or web address] respirations Mental status nausea No 11/29/24 14:15 [email or web address] [email or web address] Vomiting No 11/29/24 14:15 [email or web address] [email or web address] Anesthesia Postop Eval I: Fluid Summary Crystalloid volume administer 800 11/29/24 14:15 [email or web address] [email or web address] (ml) Colloids volume administered ( ml) Blood Product volume administered (ml) Total IV fluid infused 800 11/29/24 14:15 [email or web address] [email or web address] Anesthesia Postop Eval I: Summary Notes Anesthesia Complication No 11/29/24 14:15 [email or web address] Anesthesia Complication Comment: Post-operative progress note Anesthesia: Postop Eval II Evaluation Mental status: Awake Pain Level: 1 nausea: No Vomiting: No
--- NOTE | 2024-11-29 14:55 | PCM.POSTANE2 ---
Anesthesia Postop Eval I Sum Postop Eval Completion status Anesthesia document: Postop Eval 1 completed: Yes Anesthesia Postop Eval I Summary Anesthesia Postop Eval I Summary: Anesthesia Postop Eval I: Assessment Summary Airway patent Yes 11/29/24 14:15 [email or web address] [email or web address] Spontaneous unlabored Yes 11/29/24 14:15 TMD [email or web address] [email or web address] respirations Mental status nausea No 11/29/24 14:15 TMD [email or web address] [email or web address] Vomiting No 11/29/24 14:15 [email or web address] [email or web address] Anesthesia Postop Eval I: Fluid Summary Crystalloid volume administer 800 11/29/24 14:15 [email or web address] [email or web address] (ml) Colloids volume administered ( ml) Blood Product volume administered (ml) Total IV fluid infused 800 11/29/24 14:15 [email or web address] [email or web address] Anesthesia Postop Eval I: Summary Notes Anesthesia Complication No 11/29/24 14:15 [email or web address] Anesthesia Complication Comment: Post-operative progress note Anesthesia: Postop Eval II Evaluation Mental status: Awake Pain Level: 1 nausea: No Vomiting: No
== END 2024-11-29 15:54 | disposition home or self-care (01) ==
LOC: EN 12:04 → AC 12:12
PROVIDERS: Anesthesiology; PCP Family Medicine; Referring Provider Family Medicine; Visit Provider Internal Medicine Gastroenterology
PROC: (CPT 43260; principal; 2024-11-29 12:55)
DX: Z46.59 Encounter for fitting and adjustment of other gastrointestinal appliance and device (principal); K85.00 Idiopathic acute pancreatitis without necrosis or infection; K80.51 Calculus of bile duct without cholangitis or cholecystitis with obstruction; I10 Essential (primary) hypertension; Z87.891 Personal history of nicotine dependence; K21.9 Gastro-esophageal reflux disease without esophagitis
CPT/HCPCS: 43262; 43264; 43275; 74330; 76000; 81025; 88108; 88305; 88313; A4216; J2405

== ENCOUNTER 2025-03-27 17:39 | Inpatient (IN) | payer BC, SELFPAY ==
[2025-03-27 17:40] VITALS: BP 191/113; PULSE 87; RESP 16; TEMP 37; O2SAT 100; BMI 39.2
--- NOTE | 2025-03-27 19:03 | CT_ITS ---
PROCEDURE: ABDOMEN/PELVIS W IV CONT ONLY 03/27/2025 REASON FOR EXAM: PAIN TECHNIQUE: Procedure Code: [id number] Modality: CT Procedure: ABDOMEN/PELVIS W IV CONT ONLY Coronal and Sagittal reconstruction series were provided. CONTRAST: VOLUME: mL One or more dose reduction techniques were used (e.g., Automated exposure control, adjustment of the mA and/or kV according to patient size, use of iterative reconstruction technique. COMPARISON: 10/20/2024. FINDINGS: Moderate fat stranding and mark mesentery surrounding the pancreas is suggestive of acute pancreatitis. No focal fluid collection to suggest an abscess or pseudocyst. Subtle areas of focal low- attenuation within the head of the pancreas could represent necrotizing pancreatitis. Cholecystectomy. Interval removal of the CBD stent. Fatty liver. No other acute abdominal or pelvic process is identified. No intraperitoneal free air. No evidence of a bowel obstruction. The appendix is visualized and normal-appearing. Small fat-containing umbilical hernia. The visualized lung bases are clear. No acute osseous abnormality. CT/Abdomen/Pelvis W IV Cont ONLY IMPRESSION: Findings compatible with acute pancreatitis. Potential areas of necrotizing pa ncreatitis within the head. Similar findings are noted on the previous study. Reading [id number]
--- NOTE | 2025-03-27 19:04 | EDS_ITS ---
HPI HPI - GI History of Present Illness Chief Complaint: Abd Pain Narrative Narrative: 44-year-old female past medical history of hypertension and recurrent pancreatitis presents with epigastric pain and nausea that she has had for the last 2 days. Feels similar to her previous recurrent pancreatitis. She relates history that she had a cholecystectomy remotely, years ago. In September of this year, she had an episode of epigastric pain and was diagnosed with pancreatitis. She had been seen by Dr. Sotelo with gastroenterology and she states that they could not figure out why she was having abdominal pain until he did an ERCP and found the stone that had developed in the bile duct. She did require stenting as well, but states that was removed. She also states that she was told that she might get pancreatitis for the rest of her life. She states she felt feverish over the last few days. She is unsure if it was triggered by anything she ate. She is nauseated but has not vomited. She complains of epigastric pain that is unrelenting. It radiates to her back and more to the left side. PFSH PFSH Medical History Gastric reflux History of biliary stent insertion Intractable abdominal pain Acute recurrent pancreatitis Hypertension Pancreatitis Hypertension Anxiety Home Medications ?Medication ?Instructions ?Recorded ?Last Taken ?Type ipratropium bromide 42 mcg (0.06 1 spray intranasal TI D PRN PRN 09/12/24 Unknown History %) nasal spray allergy symptoms sennosides 8.6 mg-docusate sodium 2 tab PO BID PRN Con stipation #0 10/22/24 Unknown Rx 50 mg tablet (Stimulant Laxative tabs Plus) amlodipine 5 mg tablet 5 mg PO DAILY 03/27/25 Unkno wn History topiramate 25 mg tablet 25 mg PO BID 03/27/25 Unknow n History Allergy/AdvReac Type Severity Reaction Status Date / Time No Known Allergies Allergy Verified 03/27/25 17:40 Family History Other Hypertension Surgical History S/P ERCP Hx of cholecystectomy Social History Smoking Status: Former smoker alcohol intake: current alcohol intake frequency: 0-2 drinks per day substance use type: does not use ROS ROS ED ROS Narrative Review of systems is positive for epigastric pain, subjective fever, nausea but no vomiting. No diarrhea. Pain in epigastrium radiates to left into back. No exacerbating or alleviating factors. EXAM Physical Exam Narrative Exam Narrative: Afebrile. Vital signs noted. Nontoxic-appearing. Cardiovascular examination reveals regular rate and rhythm. Lungs are clear to auscultation bilaterally. Abdomen is soft with mild tenderness to palpation in the epigastrium to the left upper quadrant. No guarding or rebound. Positive bowel sounds. Neurological examination nonfocal, nonlateralizing. Const Vital Signs: 03/27/25 17:40 03/27/25 19:40 Temperature 98.6 F Temperature Source Oral Pulse Rate 87 73 Respiratory Rate 16 18 Blood Pressure 191/113 H 165/94 H Blood Pressure Mean 139 117 Pulse Ox 100 95 Oxygen Delivery Method Room Air Room Air MDM MDM MDM Narrative Medical decision making narrative: Differential diagnosis includes but not limited to acute on chronic pancreatitis versus transverse colon diverticulitis versus gastritis versus obstruction. I h ave low clinical suspicion for obstruction because the history and physical does not support this. Protocol labs were entered. I added CT imaging. I reviewed her prior ED visit from September where she had inflammation of the pancreas and biliary stent was in place. She had been admitted at that time. For analgesia, she states that she cannot have morphine. She was administered Dilaudid 1 mg intravenously as well as ondansetron 4 mg intravenously. I reviewed her laboratory work and she has slightly elevated white count of 11.5 with hemoglobin 12.7, hematocrit 39.6, platelet count 338. CMP is significant for normal BUN of 11 and creatinine low at 0.50, glucose of 100 with a normal anion gap of 12. Alk phos slightly elevated at 119, lipase is greater than 3000. Serum test is negative. Urinalysis negative for infection. I reviewed the radiology report of the CT of the abdomen and pelvis. There is no pseudocyst but findings consistent with acute pancreatitis. While the radiologist mentioned portions that may be concerning for necrotizing pancreatitis, same was seen on similar study. I discussed patient with Dr. Sotelo who reviewed the radiology report and images. He did not feel that this was necrotizing, and that the patient could stay here and did not need transfer. However, he would like her bolused with normal saline 1 L then LR run at 350 mL/h. He also wanted meropenem 1 g to be given here in the emergency department then 1 g every 8 hours. I discussed the patient with Dr. Woods for admission to the general medical floor. Patient is in stable condition. History & Record Review Discussion w/independent historian: Patient Additional record(s) reviewed:: Prior ED visit (Previous pancreatitis in September) Lab Data Attestation: I reviewed the patient's lab results. Labs: Laboratory Results - last 24 hr 03/27/25 03/27/25 18:25 18:30 WBC 11.5 H RBC 4.84 Hgb 12.7 Hct 39.6 MCV 81.8 MCH 26.2 L MCHC 32.1 RDW Std Deviation 39.2 RDW Coeff of Chelsie 13.3 Plt Count 338 MPV 10.2 Immature Gran % (Auto) 0.300 Neut % (Auto) 70.1 H Lymph % (Auto) 21.2 [place] % (Auto) 5.9 Eos % (Auto) 2.2 Baso % (Auto) 0.3 Absolute Neuts (auto) 8.0 H Absolute Lymphs (auto) 2.43 Nucleated RBC % 0 Sodium 138 Potassium 3.6 Chloride 99 Carbon Dioxide 26.7 Anion Gap 12 BUN 11 Creatinine 0.50 L Estim Creat Clear Calc 168.45 Est GFR (MDRD) Non-Af 118 BUN/Creatinine Ratio 22.0 H Glucose 100 H Calcium 10.7 Total Bilirubin 0.48 AST 25 ALT 24 Alkaline Phosphatase 119 H Total Protein 7.7 Albumin 4.7 Globulin 3.0 Albumin/Globulin Ratio 1.6 Lipase > 3000 H Serum , Qual NEGATIVE Urine Color Straw Urine Clarity Clear Urine pH 6.0 Ur Specific [place] 1.015 Urine Protein 15 H Urine Glucose (UA) Normal Urine Ketones Negative Urine Occult Blood 25 H Urine Nitrite Negative Urine Bilirubin Negative Urine Urobilinogen Normal Ur Leukocyte Esterase Negative Urine RBC 0-5 SEEN Urine WBC 0-5 SEEN Ur Squamous Epith Cells 0-5 SEEN Urine Bacteria 0 SEEN Urine Mucus 1+ Radiography Diagnostic Testing: Clinical Impression(s) from Imaging Studies Abdomen/Pelvis CT 03/27/25 19:03 IMPRESSION: Findings compatible with acute pancreatitis. Potential areas of necrotizing pancreatitis within the head. Similar findings are noted on the previous study. Reading Location: [id number] Management Discussion w/another healthcare provider: Hospitalist (Dr. Zak Woods) and Information Technology Security Analyst (Dr. Sotelo, gastroenterology) Discharge Plan Dx/Rx/DC Orders Clinical Impression: Pancreatitis, Nausea, Hypertension Disposition Disposition: Acute Care [facility]
[2025-03-27 19:08] LABS: Hematocrit 39.6 % (37-47); Hemoglobin 12.7 g/dL (12.0-15.0); Immature Granulocytes Count 0.040 X10^3/uL (0.0-0.0); Mean Corp Hgb Conc 32.1 g/dL (32-36); Mean Corpuscular Volume 81.8 fL (81-99); Mean Platelet Vol. 10.2 fl (6.2-12.0); NRBC Flagged by Analyzer 0 % (0-5); Platelet Count 338 K/mm3 (150-450); RBC Distribution Width CV 13.3 % (11.6-14.6); RBC Distribution Width SD 39.2 fl (35.1-43.9); Red Blood Count 4.84 M/mm3 (4.2-5.4); White Blood Count 11.5 K/mm3 (4.4-11.0)
[2025-03-27 19:26] LABS: Color, Urine Straw (Yellow); Glucose, Dipstick Normal (Normal); Ketone-Dipstick Negative (Negative); Leukocyte Esterase-Dipstick Negative /ul (Negative); Nitrite-Dipstick Negative (Negative); Occult Blood-Urine 25 /ul (Negative); Protein-Dipstick 15 mg/dl (Negative); Specific Gravity, Urine 1.015 (1.002-1.030); Urine Bilirubin Dipstick Negative (Negative)
[2025-03-27 19:28] LABS: Internal QC Validated? YES +Cl - CLEAR BKGD; Pregnancy, Serum, hCG Quali. NEGATIVE Negative
[2025-03-27 19:29] LABS: Record Kit Lot#, Serum Preg. 980607
[2025-03-27 19:40] VITALS: BP 165/94; PULSE 73; RESP 18; O2SAT 95
[2025-03-27 19:44] LABS: Red Blood Cells-Urine 0-5 SEEN /hpf (0-5)
[2025-03-27 19:45] LABS: Mucous, Urine 1+ /hpf (<or=2+); Squamous Epithelial Cells - UA 0-5 SEEN /hpf (5-10)
[2025-03-27 19:54] LABS: AST(SGOT) 25 U/L (<=31); Alanine Aminotransfer ALT/SGPT 24 U/L (<=34); Albumin, Serum 4.7 g/dL (3.5-5.0); Alkaline Phosphatase 119 U/L (35-104); Anion Gap 12 (5-15); BUN 11 mg/dL (4-19); BUN/Creat Ratio 22.0 RATIO (10-20); Calcium,Total 10.7 mg/dL (7.6-11.0); Carbon Dioxide 26.7 mmol/L (21.0-32.0); Chloride 99 mmol/L (98-108); Estimated Creatinine Clearance 168.45 ml/min (50-250); Globulin 3.0 g/dL (2.2-4.2); Glucose 100 mg/dL (70-99); Potassium 3.6 mmol/L (3.3-5.1)
[2025-03-27 20:13] LABS: Lipase > 3000 U/L (13-75)
[2025-03-27] MEDS: 0.9% Normal Saline (1000mL) 1,000 ML 999 ML IV (20:35)
--- NOTE | 2025-03-27 20:47 | PCM.HP.STD ---
[facility] - General General Date of Admission: 03/27/25 Date of Service: 03/27/25 Chief Complaint: Epigastric Pain and Nausea. HPI Narrative CASIMIRO PUTNAM, is a 44 F with a past medical history of essential hypertension; on amlodipine, obesity (class III); with BMI of 39.3 this admission, former tobacco abuse, remote history of cholecystectomy (~2005), history of recurrent pancreatitis (first episode September 2024) with subsequent ERCP and most recent episode attributed to choledocholithiasis with biliary stricture in the lower 3rd of the main bile duct; s/p biliary stent placement and sphincterotomy with balloon extraction of stone by Dr. Sotelo (November 29, 2024) with subsequent removal of biliary stent who presents to [facility] ER complaining of epigastric pain and nausea. Ms. Putnam reports her symptoms began approximately 2 days prior to admission with the gradual-onset of progressively worsening epigastric pain radiating into her back and across to her Left side with nausea and subjective fevers. She informed the ER physician she was warned she might have continued recurrent pancreatitis with her symptoms ominously similar to her previous bout of pancreatitis with nothing making the pain better or worse. She denies recent abdominal trauma, EtOH ingestion or significant deviations from her normal diet. She denies associated chills, vomiting, diarrhea, constipation, runny nose, sore throat, ear pain, chest pain, palpitations, heart racing, lower extremity edema, dysuria, hematuria, headache or rash. In the ER she was noted to have a highly elevated Lipase of >3K U/L with Leukocytosis of 11.5K present on admission and a corresponding CT scan of the abdomen and pelvis with IV contrast that revealed findings compatible with Acute Pancreatitis with potential areas of necrotizing pancreatitis within the head with similar findings to previous study with ER physician contacting the enterprise sales person on-call who recommended empiric IV meropenem and admission to the hospitalist service to the general medical floor for ongoing care for a stay that is expected to extend beyond 2 midnights. [facility] Medical History (Updated 03/27/25 @ 22:07 by Anjelica Pace) Depression Former smoker Migraines Gastric reflux History of biliary stent insertion Intractable abdominal pain Acute recurrent pancreatitis Hypertension Pancreatitis Hypertension Anxiety Home Medications ?Medication ?Instructions ?Recorded ?Last Taken ?Type ipratropium bromide 42 mcg (0.06 1 spray intranasal TID PRN PRN 09/12/24 Unknown History %) nasal spray allergy symptoms sennosides 8.6 mg-docusate sodium 2 tab PO BID PRN Constipation #0 10/22/24 Unknown Rx 50 mg tablet (Stimulant Laxative tabs Plus) amlodipine 5 mg tablet 5 mg PO DAILY 03/27/25 Unknown History fluoxetine 60 mg tablet 60 mg PO DAILY anxiety/depression 03/27/25 Unknown History topiramate 25 mg tablet 25 mg PO BID 03/27/25 Unknown History Allergy/AdvReac Type Severity Reaction Status Date / Time No Known Allergies Allergy Verified 03/27/25 17:40 Family History Other Hypertension Surgical History S/P ERCP Hx of cholecystectomy Social History Smoking Status: Former smoker alcohol intake: current alcohol intake frequency: 0-2 drinks per day substance use type: does not use ROS ROS Narrative Review of Systems: Constitutional: Patient admits to subjective fevers but denies chills. Eyes: Patient denies changes in vision or discharge form eyes. ENT: Patient denies runny nose, sore throat or ear pain. Resp: Patient denies SOB or cough. CV: Patient denies chest pain, palpitations, heart racing or LE edema. GI: Patient admits to epigastric pain radiating into her back and Left side with nausea as per HPI. She denies vomiting. : Patient denies dysuria or hematuria. MSK: Patient denies arthralgias or myalgias. Skin: Patient denies rash, abscess, wounds or jaundice. Psych: Patient denies symptoms of uncontrolled depression or anxiety. Neuro: Patient denies headache, paresthesias or focal neurologic deficits. Allergy: Patient denies lip swelling, tongue swelling or urticaria. Hematology: Patient denies easy bleeding or easy bruisability. Endocrinology: Patient denies polyuria, polydipsia, polyphagia or heat/cold intolerance. 14 point ROS otherwise negative except for positives noted above in HPI. Vital Signs Vital Signs Vital Signs: 03/27/25 17:40 03/27/25 19:40 Temperature 98.6 F Temperature Source Oral Pulse Rate 87 73 Respiratory Rate 16 18 Blood Pressure 191/113 H 165/94 H Blood Pressure Mean 139 117 Pulse Ox 100 95 Oxygen Delivery Method Room Air Room Air Weight Weight: 228 lb 11.2 oz Body Mass Index (BMI) 39.2 Physical Exam Const alert and oriented x3 Constitutional Narrative: Obese patient in moderate discomfort noted. General Appearance: cooperative HEENT normocephalic, head/scalp atraumatic, hearing grossly normal bilaterally and moist oral mucous membranes Eyes PERRL, EOMs intact bilaterally and conjunctivae normal Neck no lymphadenopathy, supple and no JVD Resp normal respiratory effort, no retractions, no use of accessory muscles and clear to auscultation bilaterally Cardio regular rate and regular rhythm GI GI Narrative: Patient has TTP in the epigastrium with no distention, guarding or rebound. Auscultation: hypoactive bowel sounds Palpation: tender epigastric Extremity normal to inspection, full ROM and no clubbing, cyanosis or edema Skin Skin Narrative: Patient has no evidence of rash, abscess, wounds or jaundice. Neuro oriented x3, CN's II-XII intact bilaterally, moves all extremities and no focal motor deficits Sensorium / Orientation: awake, alert, oriented to person, oriented to place and oriented to time Speech: speech normal Psych Mood & Affect: anxious Results Medical Records Data Attestation: I reviewed the patient's medical records Lab / Micro Data Attestation: I reviewed the patient's lab results. 03/27/25 18:25 03/27/25 18:25 Labs: Laboratory Results - last 24 hr 03/27/25 18:25: WBC 11.5 H, RBC 4.84, Hgb 12.7, Hct 39.6, MCV 81.8, MCH 26.2 L, MCHC 32.1, RDW Std Deviation 39.2, RDW Coeff of Chelsie 13.3, Plt Count 338, MPV 10.2, Immature Gran % (Auto) 0.300, Neut % (Auto) 70.1 H, Lymph % (Auto) 21.2, [place] % (Auto) 5.9, Eos % (Auto) 2.2, Baso % (Auto) 0.3, Absolute Neuts (auto) 8.0 H, Absolute Lymphs (auto) 2.43, Nucleated RBC % 0, Sodium 138, Potassium 3.6, Chloride 99, Carbon Dioxide 26.7, Anion Gap 12, BUN 11, Creatinine 0.50 L, Estim Creat Clear Calc 168.45, Est GFR (MDRD) Non-Af 118, BUN/Creatinine Ratio 22.0 H, Glucose 100 H, Calcium 10.7, Total Bilirubin 0.48, AST 25, ALT 24, Alkaline Phosphatase 119 H, Total Protein 7.7, Albumin 4.7, Globulin 3.0, Albumin/Globulin Ratio 1.6, Lipase > 3000 H, Serum , Qual NEGATIVE 03/27/25 18:30: Urine Color Straw, Urine Clarity Clear, Urine pH 6.0, Ur Specific [place] 1.015, Urine Protein 15 H, Urine Glucose (UA) Normal, Urine Ketones Negative, Urine Occult Blood 25 H, Urine Nitrite Negative, Urine Bilirubin Negative, Urine Urobilinogen Normal, Ur Leukocyte Esterase Negative, Urine RBC 0-5 SEEN, Urine WBC 0-5 SEEN, Ur Squamous Epith Cells 0-5 SEEN, Urine Bacteria 0 SEEN, Urine Mucus 1+ Imaging Radiology Impression Abdomen/Pelvis CT 03/27/25 19:03 IMPRESSION: Findings compatible with acute pancreatitis. Potential areas of necrotizing pancreatitis within the head. Similar findings are noted on the previous study. Reading Location: [facility] Assessment & Plan Assessment/Plan (1) Acute recurrent pancreatitis: (2) Intractable abdominal pain: (3) Leukocytosis: QUALIFIERS: Leukocytosis type: unspecified Qualified Code(s): D72.829 - Elevated white blood cell count, unspecified (4) Nausea: (5) Obesity (BMI 30-39.9): PLAN: Plan 1. Acute Recurrent Pancreatitis with elevated Lipase of >3K U/L with a corresponding CT scan of the abdomen and pelvis with IV contrast that revealed findings compatible with Acute Pancreatitis with potential areas of necrotizing pancreatitis within the head with similar findings to previous study - Admit to general medical floor. Keep strict NPO and give vigorous IVF. Continue empiric IV meropenem as recommended by gastroenterology with concern for possible necrotizing pancreatitis. Give pantoprazole 40 mg IV daily. Give ondansetron IV prn for nausea and vomiting. Give promethazine IM prn for breakthrough nausea. Give ketorolac IV prn for [id number] (level 1-5/10) pain or fever. Give hydromorphone IV prn for severe (level 6-10/10) pain. Check MRCP. Finally, we will consult enterprise sales person on-call to see this patient on-rounds in the AM for further recommendations regarding possible ERCP this admission with help appreciated in advance. 2. History of recurrent pancreatitis (first episode September 2024) with subsequent ERCP and most recent episode attributed to choledocholithiasis with biliary stricture in the lower 3rd of the main bile duct; s/p biliary stent placement and sphincterotomy with balloon extraction of stone by Dr. Sotelo (November 29, 2024) with subsequent removal of biliary stent in the setting of previous cholecystectomy complicating #1 - Noted. Check Lipid Panel to screen for possible underlying hypertriglyceridemia. 3. Obesity (class III); with BMI of 39.3 this admission adding to the burden of disease outlined in #1 & #2 - Weight loss will be recommended with patient explaining she was previously on topiramate to help lose weight but she stopped taking it because of side effects causing mental impairment. Check TSH. This complicates her case and may hamper recovery. 4. Essential hypertension; on amlodipine - Hold oral agents until further notice. Give hydralazine IV prn for systolic blood pressure > 160 mmHg. 5. Former tobacco abuse - Noted. 6. DVT/GI prophylaxis - Enoxaparin 40 mg sq daily plus SCD's. Pantoprazole 40 mg IV daily as outlined in #1. Total time: Approximately (but not less than) 55 minutes. Charges/Coding Visit Charges Inpatient E&M: 52789 Init Hosp L2
[2025-03-27] MEDS: Meropenem 1 GM in 0.9% Normal Saline (100mL MB+) 100 ML IV (20:49)
[2025-03-27 20:50] VITALS: BP 149/94; PULSE 73; PULSE 75; RESP 16; RESP 18; TEMP 36.7; O2SAT 100; O2SAT 99
[2025-03-27 21:34] VITALS: BMI 38.9
[2025-03-27 21:39] VITALS: BP 160/100; PULSE 79; RESP 20; TEMP 36.6; O2SAT 99
[2025-03-27] MEDS: Lactated Ringers 1,000 ML 200 ML IV (22:14)
[2025-03-27 22:18] VITALS: BMI 38.9
[2025-03-27 22:39] VITALS: BP 136/88; PULSE 71; RESP 16; TEMP 36.8; O2SAT 97
[2025-03-27] MEDS: proMETHazine 25 MG/ML Syringe 12.5 MG IM (22:40)
[2025-03-27] MEDS: Pantoprazole Sodium 40 MG in 0.9% Normal Saline (100mL MB+) 100 ML 330 MG IV (22:42)
[2025-03-27 22:57] LABS: Magnesium 2.1 mg/dL (1.5-2.2)
[2025-03-27 23:13] LABS: Alcohol, Blood (Medical)-Serum < 10.1 mg/dL (<=10.0)
--- NOTE | 2025-03-28 02:12 | MRI_ITS ---
PROCEDURE: MRCP ABDOMEN WITHOUT CONTRAST 03/28/2025 REASON FOR EXAM: RECURRENT ACUTE PANCREATITIS. TECHNIQUE: Procedure Code: MRIMRCP Modality: MR Procedure: MRCP ABDOMEN WITHOUT CONTRAST Multiplanar and multisequence images were obtained. FINDINGS: Normal liver and kidneys. Increased signal in the pancreatic tail with retroperitoneal fluid suggesting pancreatitis No liver or pancreatic mass. Gallbladder surgically absent. No dilatation of the extrahepatic biliary duct or pancreatic duct. Negative for choledocholithiasis. MRI/MRCP Abdomen without Contrast IMPRESSION: Negative for choledocholithiasis. Pancreatitis. Reading Location[facility]
[2025-03-28 03:00] VITALS: BP 144/85; PULSE 68; RESP 16; TEMP 36.5; O2SAT 97
[2025-03-28] MEDS: 0.9% Saline Lock 10 ML Syringe IV ×6 (03:05→16:21)
[2025-03-28] MEDS: Lactated Ringers 1,000 ML 200 ML IV ×2 (03:12→07:38)
[2025-03-28 05:58] LABS: Hematocrit 33.2 % (37-47); Hemoglobin 10.8 g/dL (12.0-15.0); Immature Granulocytes Count 0.020 X10^3/uL (0.0-0.0); Mean Corp Hgb Conc 32.5 g/dL (32-36); Mean Corpuscular Volume 83.8 fL (81-99); Mean Platelet Vol. 10.2 fl (6.2-12.0); NRBC Flagged by Analyzer 0 % (0-5); Platelet Count 241 K/mm3 (150-450); RBC Distribution Width CV 13.6 % (11.6-14.6); RBC Distribution Width SD 41.9 fl (35.1-43.9); Red Blood Count 3.96 M/mm3 (4.2-5.4); White Blood Count 6.8 K/mm3 (4.4-11.0)
[2025-03-28 06:26] LABS: AST(SGOT) 19 U/L (<=31); Alanine Aminotransfer ALT/SGPT 18 U/L (<=34); Albumin, Serum 3.6 g/dL (3.5-5.0); Alkaline Phosphatase 82 U/L (35-104); Anion Gap 7 (5-15); BUN 13 mg/dL (4-19); BUN/Creat Ratio 22.3 RATIO (10-20); Calcium,Total 9.6 mg/dL (7.6-11.0); Carbon Dioxide 26.6 mmol/L (21.0-32.0); Chloride 105 mmol/L (98-108); Cholesterol 136 mg/dL (<=200); Estimated Creatinine Clearance 145.11 ml/min (50-250); Globulin 2.7 g/dL (2.2-4.2); Glucose 118 mg/dL (70-99); Low Density Lipoprotein Calc. 73 mg/dL; Potassium 4.1 mmol/L (3.3-5.1); Triglycerides 77 mg/dL; Very Low Density Lipoprotein 15 mg/dL (5-40); cholesterol:hdl ratio screen 2.85
[2025-03-28] MEDS: Meropenem 1 GM in 0.9% Normal Saline (100mL MB+) 100 ML IV ×3 (06:34→21:27)
[2025-03-28 06:38] LABS: Lipase 1356 U/L (13-75)
[2025-03-28 07:09] VITALS: O2SAT 97
[2025-03-28 07:30] VITALS: BP 149/105; PULSE 70; RESP 14; TEMP 36.4; O2SAT 97
--- NOTE | 2025-03-28 07:41 | PN.HOSP_ITS ---
Reason for Visit Chief Complaint: Epigastric Pain and Nausea. Objective Data Objective Data Vital Signs: Vital Signs Temp Pulse Resp BP Pulse Ox O2 Del Method 97.6 F L 70 14 149/105 H 97 Room Air 03/28/25 07:30 03/28/25 07:30 03/28/25 07:30 03/28/25 07:30 03/28/25 07:30 03/28/25 07:30 Oxygen Delivery Method Room Air Weight: 228 lb 6.382 oz Body Mass Index (BMI) 38.9 Intake & Output: Intake and Output for Last 24 Hours 03/26/25 03/27/25 03/28/25 23:59 23:59 23:59 Intake Total 1200 / 1200 1880.00 / 1880.00 Balance 1200 / 1200 1880.00 / 1880.00 Lab / Micro Data 03/28/25 05:26 03/28/25 05:26 Labs: Laboratory Results - last 24 hr 03/27/25 18:25: WBC 11.5 H, RBC 4.84, Hgb 12.7, Hct 39.6, MCV 81.8, MCH 26.2 L, MCHC 32.1, RDW Std Deviation 39.2, RDW Coeff of Chelsie 13.3, Plt Count 338, MPV 10.2, Immature Gran % (Auto) 0.300, Neut % (Auto) 70.1 H, Lymph % (Auto) 21.2, [place] % (Auto) 5.9, Eos % (Auto) 2.2, Baso % (Auto) 0.3, Absolute Neuts (auto) 8.0 H, Absolute Lymphs (auto) 2.43, Nucleated RBC % 0, Sodium 138, Potassium 3.6, Chloride 99, Carbon Dioxide 26.7, Anion Gap 12, BUN 11, Creatinine 0.50 L, Estim Creat Clear Calc 168.45, Est GFR (MDRD) Non-Af 118, BUN/Creatinine Ratio 22.0 H, Glucose 100 H, Hemoglobin A1c 5.7, Calcium 10.7, Magnesium 2.1, Total Bilirubin 0.48, AST 25, ALT 24, Alkaline Phosphatase 119 H, Total Protein 7.7, Albumin 4.7, Globulin 3.0, Albumin/Globulin Ratio 1.6, Lipase > 3000 H, TSH 2.940, Serum , Qual NEGATIVE, Ethyl Alcohol < 10.1 03/27/25 18:30: Urine Color Straw, Urine Clarity Clear, Urine pH 6.0, Ur Specific [place] 1.015, Urine Protein 15 H, Urine Glucose (UA) Normal, Urine Ketones Negative, Urine Occult Blood 25 H, Urine Nitrite Negative, Urine Bilirubin Negative, Urine Urobilinogen Normal, Ur Leukocyte Esterase Negative, Urine RBC 0-5 SEEN, Urine WBC 0-5 SEEN, Ur Squamous Epith Cells 0-5 SEEN, Urine Bacteria 0 SEEN, Urine Mucus 1+ 03/28/25 05:26: WBC 6.8, RBC 3.96 L, Hgb 10.8 L, Hct 33.2 L, MCV 83.8, MCH 27.3, MCHC 32.5, RDW Std Deviation 41.9, RDW Coeff of Chelsie 13.6, Plt Count 241, MPV 10.2, Immature Gran % (Auto) 0.300, Neut % (Auto) 69.0, Lymph % (Auto) 23.2, [place] % (Auto) 4.4, Eos % (Auto) 2.8, Baso % (Auto) 0.3, Absolute Neuts (auto) 4.7, Absolute Lymphs (auto) 1.58, Nucleated RBC % 0, Sodium 139, Potassium 4.1, Chloride 105, Carbon Dioxide 26.6, Anion Gap 7, BUN 13, Creatinine 0.58 L, Estim Creat Clear Calc 145.11, Est GFR (MDRD) Non-Af 114, BUN/Creatinine Ratio 22.3 H, Glucose 118 H, Calcium 9.6, Phosphorus 3.0, Total Bilirubin 0.31, AST 19, ALT 18, Alkaline Phosphatase 82, Total Protein 6.3, Albumin 3.6, Globulin 2.7, Albumin/Globulin Ratio 1.4, Triglycerides 77, Cholesterol 136, LDL Cholesterol, Calc 73, VLDL Cholesterol 15, HDL Cholesterol 48, Cholesterol/HDL Ratio 2.85, L ipase 1356 H Radiography Diagnostic Testing: Radiology Impression Abdomen/Pelvis CT 03/27/25 19:03 IMPRESSION: Findings compatible with acute pancreatitis. Potential areas of necrotizing pancreatitis within the head. Similar findings are noted on the previous study. Reading Location: [facility] Physical Exam Narrative Seen and examined. Admitted with 2 days of severe epigastric/abdominal pain 03/29. She had outside fatty food on Tuesday passed gas last time on Tuesday. She had a small bowel movement yesterday. She did not measure her temperature but was sweating and cold and used for blankets She had biliary stent in November and was removed subsequently. Physical exam General: Alert, Oriented x3, Cooperative. BMI 39.0 kg/m?, obesity grade 2 HEENT: Atraumatic, PERRLA, EOMI, Normocephalic. Oral: No Gingival or Mucosal Lesions/ Ulcerations Neck: Supple, No JVD, Negative Carotid Bruits Chest wall/Lungs: Air entry diminished in bilateral lung bases. No crepitation/rhonchi Cardiovascular: Regular rate and rhythm, Normal S1,S2, No M/G/R Abdomen: Bowel Sounds sluggish. Soft, mild tenderness present in epigastric/upper abdomen. No rebound tenderness. : No dysuria. No renal angle tenderness. No suprapubic tenderness. Extremities: No edema, Capillary Refill Less than 3 Seconds Skin: No rashes, No breakdown Musculoskeletal: No Tenderness to Palpation of Joints or Extremities Neurological: Cranial nerves II-XII grossly intact, DTR 2+/4. No acute focal neurological deficit. Psych/Mental Status: Normal Affect, Appropriate. Assessment & Plan Assessment/Plan (1) Acute recurrent pancreatitis: (2) Intractable abdominal pain: (3) Leukocytosis: QUALIFIERS: Leukocytosis type: unspecified Qualified Code(s): D 72.829 - Elevated white blood cell count, unspecified (4) Nausea: (5) Obesity (BMI 30-39.9): PLAN: Plan 44-year-old female admitted with severe epigastric pain with high lipase and CT finding suggestive of acute pancreatitis with potential area of necrotizing pancreatitis within head of pancreas: 1. Acute on recurrent pancreatitis with CT reporting a potential necrotizing pancreatitis: Patient is being admitted to [facility] floor. Patient had subjective chills and drenching sweats at home but no measured fever. Lipase 1356, more than 10 times ULN. [place]'s criteria at admission 0 but LDH not available. LDH ordered. N.p.o. IV fluid with aggressive rehydration. On empiric IV meropenem with CT reporting of potential necrotizing pancreatitis. Pantoprazole for tomorrow IV daily. Supportive treatment will for nausea or vomiting and pain control. CT abdomen/pelvis with IV contrast individually reviewed. I agree moderate fat stranding with hazy/indistinct mesentery suggesting acute pancreatitis. No focal fluid collection or abscess or pseudocyst. Reporting raise suspicion of necrotizing pancreatitis. MRCP is ordered. No fever.. Patient on IV meropenem. Mild leukocytosis resolved. 2. 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 Sotelo (November 29, 2024) with subsequent removal of biliary stent with surgical cholecystectomy. Lipid profile within normal limit. TG 77 3. Obesity (class III); with BMI of 39.3 this admission adding to the burden of disease outlined in #1 & #2 - Weight loss will be recommended with patient explaining she was previously on topiramate to help lose weight but she stopped taking it because of side effects causing mental impairment. Check TSH. This complicates her case and may hamper recovery. 4. Essential hypertension; on amlodipine - Hold oral agents until further notice. Give hydralazine IV prn for systolic blood pressure > 160 mmHg. 5. Former tobacco abuse - Noted. 6. DVT/GI prophylaxis - Enoxaparin 40 mg sq daily plus SCD's. Pantoprazole 40 mg IV daily as outlined in #1. Laboratory Results 03/27/25 18:25: WBC 11.5 H, RBC 4.84, Hgb 12.7, Hct 39.6, MCV 81.8, MCH 26.2 L, MCHC 32.1, RDW Std Deviation 39.2, RDW Coeff of Chelsie 13.3, Plt Count 338, MPV 10.2, Immature Gran % (Auto) 0.300, Neut % (Auto) 70.1 H, Lymph % (Auto) 21.2, [place] % (Auto) 5.9, Eos % (Auto) 2.2, Baso % (Auto) 0.3, Absolute Neuts (auto) 8.0 H, Absolute Lymphs (auto) 2.43, Nucleated RBC % 0, Sodium 138, Potassium 3.6, Chloride 99, Carbon Dioxide 26.7, Anion Gap 12, BUN 11, Creatinine 0.50 L, Estim Creat Clear Calc 168.45, Est GFR (MDRD) Non-Af 118, BUN/Creatinine Ratio 22.0 H, Glucose 100 H, Hemoglobin A1c 5.7, Calcium 10.7, Magnesium 2.1, Total Bilirubin 0.48, AST 25, ALT 24, Alkaline Phosphatase 119 H, Total Protein 7.7, Albumin 4.7, Globulin 3.0, Albumin/Globulin Ratio 1.6, Lipase > 3000 H, TSH 2.940, Serum , Qual NEGATIVE, Ethyl Alcohol < 10.1 03/27/25 18:30: Urine Color Straw, Urine Clarity Clear, Urine pH 6.0, Ur Specific [place] 1.015, Urine Protein 15 H, Urine Glucose (UA) Normal, Urine Ketones Negative, Urine Occult Blood 25 H, Urine Nitrite Negative, Urine Bilirubin Negative, Urine Urobilinogen Normal, Ur Leukocyte Esterase Negative, Urine RBC 0-5 SEEN, Urine WBC 0-5 SEEN, Ur Squamous Epith Cells 0-5 SEEN, Urine Bacteria 0 SEEN, Urine Mucus 1+ 03/28/25 05:26: WBC 6.8, RBC 3.96 L, Hgb 10.8 L, Hct 33.2 L, MCV 83.8, MCH 27.3, MCHC 32.5, RDW Std Deviation 41.9, RDW Coeff of Chelsie 13.6, Plt Count 241, MPV 10.2, Immature Gran % (Auto) 0.300, Neut % (Auto) 69.0, Lymph % (Auto) 23.2, [place] % (Auto) 4.4, Eos % (Auto) 2.8, Baso % (Auto) 0.3, Absolute Neuts (auto) 4.7, Absolute Lymphs (auto) 1.58, Nucleated RBC % 0, Sodium 139, Potassium 4.1, Chloride 105, Carbon Dioxide 26.6, Anion Gap 7, BUN 13, Creatinine 0.58 L, Estim Creat Clear Calc 145.11, Est GFR (MDRD) Non-Af 114, BUN/Creatinine Ratio 22.3 H, Glucose 118 H, Calcium 9.6, Phosphorus 3.0, Total Bilirubin 0.31, AST 19, ALT 18, Alkaline Phosphatase 82, Total Protein 6.3, Albumin 3.6, Globulin 2.7, Albumin/Globulin Ratio 1.4, Triglycerides 77, Cholesterol 136, LDL Cholesterol, Calc 73, VLDL Cholesterol 15, HDL Cholesterol 48, Cholesterol/HDL Ratio 2.85, L ipase 1356 H Charges/Coding Visit Charges Inpatient E&M: 65353 Subs Hosp L2
[2025-03-28] MEDS: Pantoprazole Sodium 40 MG in 0.9% Normal Saline (100mL MB+) 100 ML 330 MG IV (09:54)
--- NOTE | 2025-03-28 10:00 | CASEMGMT ---
RN CM mechanical specialist CM to room to meet with patient for initial transition planning/care coordination assessment. RN SIMEON introduced self and role at [facility], pt voices understanding. Pt is A&O and is resting in bed. Care providers, pharmacy, and demographics verified. Strata: 2 PCP: Dr Mary Escobar Specialists: Dr Ashleigh Stanton Pharmacy: [facility] retail @ discharge. Otherwise, goes to [facility]. Insurance: [employer] Prescription Benefit: Yes LNOK: Edita (Mom). Suzanna (daughter) Living Arrangements: Pt lives with her 20 y/o daughter in a one-story home with 3 steps to enter ADLs/IADLs: Independent Transportation: Self, daughter. Denies concerns DME: Denies using any DME and denies needs. HHC/SNF: Denies hx of either & no needs identified. Discussed discharge planning. Pt states that she feels safe returning home with her daughter once she is medically ready and denies further questions or concerns at this time. 6-Click is 24. Plan: Home Amanuel ALEGRIA RN, CM
[2025-03-28 11:16] VITALS: BP 140/94; PULSE 70; RESP 16; TEMP 36.4; O2SAT 97
[2025-03-28] MEDS: Lactated Ringers 1,000 ML 300 ML IV ×4 (13:14→23:19)
[2025-03-28 16:00] VITALS: BP 149/98; PULSE 73; RESP 14; TEMP 36.4; O2SAT 97
[2025-03-28 16:44] LABS: LDH 122 U/L (84-246)
--- NOTE | 2025-03-28 17:41 | CON.PCM.GI_ITS ---
HPI Consult Data Date of Consult: 03/28/25 HPI Narrative Reason for Consultation: Pancreatitis HPI Narrative: CASIMIRO PUTNAM, is a 44 F who presents [44-year-old woman with a known history of idiopathic recurrent acute pancreatitis who reports a new onset of abdominal pain. The pain is described as severe, located in the epigastric region with radiation to the back, and is associated with nausea and vomiting. She denies any alcohol use, and her gallbladder was removed several years ago. Her most recent episode of pancreatitis occurred three months ago.? * Lipase:?Elevated . * IgG4, KENZIE, ANCA:?Within normal limits. * Routine labs (CBC, BMP):?Hemoglobin hematocrit has decreased appropriately with lactated Ringer's. Imaging Studies: * CT scan (Abdomen/Pelvis):?Confirmed acute pancreatitis with possible changes consistent with necrosis in the pancreatic head. Other findings are pending formal read.? PFSH Medical History Depression Former smoker Migraines Gastric reflux History of biliary stent insertion Intractable abdominal pain Acute recurrent pancreatitis Hypertension Pancreatitis Hypertension Anxiety Home Medications ?Medication ?Instructions ?Recorded ?Last Taken ?Type ipratropium bromide 42 mcg (0.06 1 spray intranasal TI D PRN PRN 09/12/24 Unknown History %) nasal spray allergy symptoms sennosides 8.6 mg-docusate sodium 2 tab PO BID PRN Con stipation #0 10/22/24 Unknown Rx 50 mg tablet (Stimulant Laxative tabs Plus) amlodipine 5 mg tablet 5 mg PO DAILY 03/27/25 Unkno wn History fluoxetine 60 mg tablet 60 mg PO DAILY anxiety/depre ssion 03/27/25 Unknown History topiramate 25 mg tablet 25 mg PO BID 03/27/25 Unknow n History Allergy/AdvReac Type Severity Reaction Status Date / Time No Known Allergies Allergy Verified 03/27/25 17:40 Family History Other Hypertension Surgical History S/P ERCP Hx of cholecystectomy Social History Smoking Status: Former smoker alcohol intake: current alcohol intake frequency: 0-2 drinks per day substance use type: does not use ROS Constitutional Constitutional: Denies fatigue, fever(s), poor appetite, weight gain or weight loss Gastrointestinal Gastrointestinal: Denies belching, bloating, change in bowel habits, change in stool character, chewing difficulty, coffee ground emesis, constipation, cramping, diarrhea, dyspepsia, dysphagia, early satiety, excessive flatus, fecal incontinence, heartburn, hematemesis, hematochezia, hemorrhoids, loose stools, melena, nausea, odynophagia, rectal bleeding, tenesmus, vomiting or weight changes Physical Exam Const alert, oriented x3, no apparent distress and healthy appearing General Appearance: cooperative GI normal to inspection, nondistended, normoactive bowel sounds, soft to palpation, non-tender and non-distended Percussion: normal to percussion Rectal Exam: deferred Lab / Micro Data 03/28/25 05:26 03/28/25 05:26 Labs: Laboratory Results - last 24 hr 03/27/25 18:25: WBC 11.5 H, RBC 4.84, Hgb 12.7, Hct 39.6, MCV 81.8, MCH 26.2 L, MCHC 32.1, RDW Std Deviation 39.2, RDW Coeff of Chelsie 13.3, Plt Count 338, MPV 10.2, Immature Gran % (Auto) 0.300, Neut % (Auto) 70.1 H, Lymph % (Auto) 21.2, [place] % (Auto) 5.9, Eos % (Auto) 2.2, Baso % (Auto) 0.3, Absolute Neuts (auto) 8.0 H, Absolute Lymphs (auto) 2.43, Nucleated RBC % 0, Sodium 138, Potassium 3.6, Chloride 99, Carbon Dioxide 26.7, Anion Gap 12, BUN 11, Creatinine 0.50 L, Estim Creat Clear Calc 168.45, Est GFR (MDRD) Non-Af 118, BUN/Creatinine Ratio 22.0 H, Glucose 100 H, Hemoglobin A1c 5.7, Calcium 10.7, Magnesium 2.1, Total Bilirubin 0.48, AST 25, ALT 24, Alkaline Phosphatase 119 H, Total Protein 7.7, Albumin 4.7, Globulin 3.0, Albumin/Globulin Ratio 1.6, Lipase > 3000 H, TSH 2.940, Serum , Qual NEGATIVE, Ethyl Alcohol < 10.1 03/27/25 18:30: Urine Color Straw, Urine Clarity Clear, Urine pH 6.0, Ur Specific [place] 1.015, Urine Protein 15 H, Urine Glucose (UA) Normal, Urine Ketones Negative, Urine Occult Blood 25 H, Urine Nitrite Negative, Urine Bilirubin Negative, Urine Urobilinogen Normal, Ur Leukocyte Esterase Negative, Urine RBC 0-5 SEEN, Urine WBC 0-5 SEEN, Ur Squamous Epith Cells 0-5 SEEN, Urine Bacteria 0 SEEN, Urine Mucus 1+ 03/28/25 05:26: WBC 6.8, RBC 3.96 L, Hgb 10.8 L, Hct 33.2 L, MCV 83.8, MCH 27.3, MCHC 32.5, RDW Std Deviation 41.9, RDW Coeff of Chelsie 13.6, Plt Count 241, MPV 10.2, Immature Gran % (Auto) 0.300, Neut % (Auto) 69.0, Lymph % (Auto) 23.2, [place] % (Auto) 4.4, Eos % (Auto) 2.8, Baso % (Auto) 0.3, Absolute Neuts (auto) 4.7, Absolute Lymphs (auto) 1.58, Nucleated RBC % 0, Sodium 139, Potassium 4.1, Chloride 105, Carbon Dioxide 26.6, Anion Gap 7, BUN 13, Creatinine 0.58 L, Estim Creat Clear Calc 145.11, Est GFR (MDRD) Non-Af 114, BUN/Creatinine Ratio 22.3 H , Glucose 118 H, Calcium 9.6, Phosphorus 3.0, Total Bilirubin 0.31, AST 19, ALT 18, Alkaline Phosphatase 82, Lactate Dehydrogenase 122, Total Protein 6.3, Albumin 3.6, Globulin 2.7, Albumin/Globulin Ratio 1.4, Triglycerides 77, Cholesterol 136, LDL Cholesterol, Calc 73, VLDL Cholesterol 15, HDL Cholesterol 48, Cholesterol/HDL Ratio 2.85, Lipase 1356 H Imaging Radiology Impression Abdomen/Pelvis CT 03/27/25 19:03 IMPRESSION: Findings compatible with acute pancreatitis. Potential areas of necrotizing pancreatitis within the head. Similar findings are noted on the previous study. Reading Location: [id number] Assessment & Plan Assessment/Plan (1) Leukocytosis: QUALIFIERS: Leukocytosis type: unspecified Qualified Code(s): D 72.829 - Elevated white blood cell count, unspecified (2) Nausea: (3) Choledocholithiasis: PLAN: Assessment 44-year-old pleasant woman presenting with an acute episode of recurrent idiopathic pancreatitis.? * Acute recurrent pancreatitis:?The patient's presentation with abdominal pain and elevated lipase is consistent with an acute pancreatitis flare. Her history of recurrent episodes without an identified cause (idiopathic) is noted. The CT findings of possible necrosis indicate a severe case. * Pancreatic necrosis:?The CT scan findings of potential pancreatic necrosis in the head raise concern for a serious complication of acute pancreatitis. The next steps must focus on confirming the extent and status (sterile vs. infected) of the necrosis. * Idiopathic etiology:?Although common causes like alcohol and gallstones have been ruled out, a definitive cause for her recurrent pancreatitis has not been established. Further investigations are needed, as about 10?30% of recurrent pancreatitis cases remain idiopathic after an initial workup. Potential underlying causes to explore include genetic mutations, anatomical abnormalities (e.g., pancreas divisum), and sphincter of Oddi dysfunction Plan * Hospital Admission:?Admit to the hospital for aggressive intravenous (IV) fluid resuscitation and supportive care. * Pain and Symptom Management: * Initiate strong analgesia for abdominal pain. * Keep patient nothing by mouth (NPO) to rest the pancreas. * Diagnostics: * MRCP:?Proceed with the pending magnetic resonance cholangiopancreatography to evaluate the biliary and pancreatic ducts in more detail. This will help assess for ductal abnormalities like pancreas divisum or other obstructions. * Genetic Testing:?Given the recurrent and idiopathic nature of her pancreatitis, consider testing for mutations in the?CFTR, PRSS1,?and?SPINK1 ?genes. * Necrosis Management: * Monitor for signs of infection . Infected necrosis has a higher mortality rate. * Continue meropenem * Nutrition: * Start early enteral feeding via nasogastric or nasojejunal tube once the patient is able to tolerate it. This is preferable to parenteral nutrition to reduce the risk of infection.
[2025-03-28] MEDS: proMETHazine 25 MG/ML Syringe 12.5 MG IM (19:55)
[2025-03-28 20:00] VITALS: BP 155/86; PULSE 81; RESP 16; TEMP 36.6; O2SAT 95
[2025-03-29] MEDS: Lactated Ringers 1,000 ML 300 ML IV ×4 (02:44→13:47)
[2025-03-29 02:56] VITALS: BP 155/86; PULSE 81; RESP 16; TEMP 36.6; O2SAT 95
[2025-03-29 05:17] VITALS: BMI 39.2
[2025-03-29 05:41] LABS: LDH 122 U/L (84-246)
[2025-03-29] MEDS: Meropenem 1 GM in 0.9% Normal Saline (100mL MB+) 100 ML IV ×3 (05:53→21:42)
[2025-03-29 07:09] VITALS: O2SAT 95
[2025-03-29] MEDS: Pantoprazole Sodium 40 MG in 0.9% Normal Saline (100mL MB+) 100 ML 330 MG IV (08:59)
[2025-03-29] MEDS: 0.9% Saline Lock 10 ML Syringe IV ×4 (09:02→18:06)
[2025-03-29 11:24] VITALS: BP 155/95; PULSE 87; RESP 18; TEMP 37.2; O2SAT 96
--- NOTE | 2025-03-29 11:55 | CASEMGMT ---
Social Work- SW followed up with pt who reports that she gathered addresses and would like to complete directives. Pt name mom Edita as primary agent. Daughter Suzanna and brother Galindo are alternate agents. URVASHI provided original to pt, copies for agents to pt, and placed a copy on the chart. EMIR Perez
[2025-03-29 12:50] LABS: Hematocrit 30.8 % (37-47); Hemoglobin 9.6 g/dL (12.0-15.0); Immature Granulocytes Count 0.030 X10^3/uL (0.0-0.0); Mean Corp Hgb Conc 31.2 g/dL (32-36); Mean Corpuscular Volume 85.3 fL (81-99); Mean Platelet Vol. 10.6 fl (6.2-12.0); NRBC Flagged by Analyzer 0 % (0-5); Platelet Count 220 K/mm3 (150-450); RBC Distribution Width CV 13.6 % (11.6-14.6); RBC Distribution Width SD 42.6 fl (35.1-43.9); Red Blood Count 3.61 M/mm3 (4.2-5.4); White Blood Count 9.0 K/mm3 (4.4-11.0)
[2025-03-29 14:18] LABS: AST(SGOT) 20 U/L (<=31); Alanine Aminotransfer ALT/SGPT 18 U/L (<=34); Albumin, Serum 3.5 g/dL (3.5-5.0); Alkaline Phosphatase 81 U/L (35-104); Anion Gap 12 (5-15); BUN 9 mg/dL (4-19); BUN/Creat Ratio 18.8 RATIO (10-20); Bilirubin, Direct 0.14 mg/dL (0.00-0.30); CRP 66.30 mg/L (0.0-3.0); Calcium,Total 9.3 mg/dL (7.6-11.0); Carbon Dioxide 22.1 mmol/L (21.0-32.0); Chloride 101 mmol/L (98-108); Estimated Creatinine Clearance 187.63 ml/min (50-250); Globulin 2.7 g/dL (2.2-4.2); Glucose 106 mg/dL (70-99); Potassium 4.1 mmol/L (3.3-5.1)
--- NOTE | 2025-03-29 15:38 | PCM.PN.HOSP ---
Reason for Visit Chief Complaint: Epigastric Pain and Nausea. Objective Data Objective Data Vital Signs: Vital Signs Temp Pulse Resp BP Pulse Ox O2 Del Method O2 Flow Rate 98.9 F 87 18 155/95 H 96 Nasal Cannula 2 03/29/25 11:24 03/29/25 11:24 03/29/25 11:24 03/29/25 11:24 03/29/25 11:24 03/29/25 11:24 03/29/25 11:24 Oxygen Flow Rate (L/min) 2 Oxygen Delivery Method Nasal Cannula Weight: 229 lb 11.547 oz Body Mass Index (BMI) 39.2 Intake & Output: Intake and Output for Last 24 Hours 03/27/25 03/28/25 03/29/25 23:59 23:59 23:59 Intake Total 1200 / 1200 6588.33 / 6588.33 4245 / 4245 Balance 1200 / 1200 6588.33 / 6588.33 4245 / 4245 Lab / Micro Data 03/29/25 12:30 03/29/25 04:46 Labs: Laboratory Results - last 24 hr 03/28/25 05:26: Lactate Dehydrogenase 122 03/29/25 04:46: Sodium 135, Potassium 4.1, Chloride 101, Carbon Dioxide 22.1, Anion Gap 12, BUN 9, Creatinine 0.45 L, Estim Creat Clear Calc 187.63, Est GFR (MDRD) Non-Af 121, BUN/Creatinine Ratio 18.8, Glucose 106 H, Calcium 9.3, Phosphorus 2.7, Total Bilirubin 0.37, Direct Bilirubin 0.14, AST 20, ALT 18, Alkaline Phosphatase 81, Lactate Dehydrogenase 122, C-React Prot Ext Range 66.30 H, Total Protein 6.2, Albumin 3.5, Globulin 2.7 03/29/25 12:30: WBC 9.0, RBC 3.61 L, Hgb 9.6 L, Hct 30.8 L, MCV 85.3, MCH 26.6 L, MCHC 31.2 L, RDW Std Deviation 42.6, RDW Coeff of Chelsie 13.6, Plt Count 220, MPV 10.6, Immature Gran % (Auto) 0.300, Neut % (Auto) 72.7 H, Lymph % (Auto) 19.8, [place] % (Auto) 5.8, Eos % (Auto) 1.2, Baso % (Auto) 0.2, Absolute Neuts (auto) 6.5, Absolute Lymphs (auto) 1.78, Nucleated RBC % 0 Radiography Diagnostic Testing: Radiology Impression MRCP 03/28/25 02:12 IMPRESSION: Negative for choledocholithiasis. Pancreatitis. Reading Location: [facility] Physical Exam Narrative Seen and examined. Patient was started on liquid diet and advance to full liquid. Admitted with 2 days of severe epigastric/abdominal pain 03/29. She had outside fatty food on Tuesday passed gas last time on Tuesday. She had a small bowel movement yesterday. She did not measure her temperature but was sweating and cold and used for blankets She had biliary stent in November and was removed subsequently. Physical exam General: Alert, Oriented x3, Cooperative. BMI 39.0 kg/m?, obesity grade 2 HEENT: Atraumatic, PERRLA, EOMI, Normocephalic. Oral: No Gingival or Mucosal Lesions/ Ulcerations Neck: Supple, No JVD, Negative Carotid Bruits Chest wall/Lungs: Air entry diminished in bilateral lung bases. No crepitation/rhonchi Cardiovascular: Regular rate and rhythm, Normal S1,S2, No M/G/R Abdomen: Bowel Sounds sluggish. Soft, mild tenderness present in epigastric/upper abdomen. No rebound tenderness. : No dysuria. No renal angle tenderness. No suprapubic tenderness. Extremities: No edema, Capillary Refill Less than 3 Seconds Skin: No rashes, No breakdown Musculoskeletal: No Tenderness to Palpation of Joints or Extremities Neurological: Cranial nerves II-XII grossly intact, DTR 2+/4. No acute focal neurological deficit. Psych/Mental Status: Normal Affect, Appropriate. Assessment & Plan Assessment/Plan (1) Acute recurrent pancreatitis: (2) Intractable abdominal pain: (3) Leukocytosis: QUALIFIERS: Leukocytosis type: unspecified Qualified Code(s): D72.829 - Elevated white blood cell count, unspecified (4) Nausea: (5) Obesity (BMI 30-39.9): PLAN: Plan 44-year-old female admitted with severe epigastric pain with high lipase and CT finding suggestive of acute pancreatitis with potential area of necrotizing pancreatitis within head of pancreas: 1. Acute on recurrent pancreatitis with CT reporting a potential necrotizing pancreatitis: Patient is being admitted to [facility] floor. Patient had subjective chills and drenching sweats at home but no measured fever. Lipase 1356, more than 10 times ULN. [place]'s criteria at admission 0 but LDH not available. LDH ordered. N.p.o. IV fluid with aggressive rehydration. On empiric IV meropenem with CT reporting of potential necrotizing pancreatitis. Pantoprazole for tomorrow IV daily. Supportive treatment will for nausea or vomiting and pain control. CT abdomen/pelvis with IV contrast individually reviewed. I agree moderate fat stranding with hazy/indistinct mesentery suggesting acute pancreatitis. No focal fluid collection or abscess or pseudocyst. Reporting raise suspicion of necrotizing pancreatitis. MRCP is ordered. No fever.. Patient on IV meropenem. Mild leukocytosis resolved. 03/29: Patient tolerated clear liquid diet advance to full liquid. Patient had MRCP which is negative for choledocholithiasis and shows pancreatitis with increased signal in the tail with retroperitoneal fluid. No liver or pancreatic mass. No dilatation of extrahepatic biliary duct or pancreatic duct. Patient started on Creon 2 tablets 3 times daily with liquid diet. Labs done today shows decreasing hematocrit 3%. Carlos criteria at admission and repeat 48 hours is 0. Continue IV antibiotics. 2. 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 Sotelo (November 29, 2024) with subsequent removal of biliary stent with surgical cholecystectomy. Lipid profile within normal limit. TG 77 03/29: MRCP does not show choledocholithiasis as mentioned above 3. Obesity (class III); with BMI of 39.3 this admission adding to the burden of disease outlined in #1 & #2 - Weight loss will be recommended with patient explaining she was previously on topiramate to help lose weight but she stopped taking it because of side effects causing mental impairment. Check TSH. This complicates her case and may hamper recovery. 4. Essential hypertension; on amlodipine - Hold oral agents until further notice. Give hydralazine IV prn for systolic blood pressure > 160 mmHg. 5. Former tobacco abuse - Noted. 6. DVT/GI prophylaxis - Enoxaparin 40 mg sq daily plus SCD's. Pantoprazole 40 mg IV daily. Laboratory Results 03/28/25 05:26: Lactate Dehydrogenase 122 03/29/25 04:46: Sodium 135, Potassium 4.1, Chloride 101, Carbon Dioxide 22.1, Anion Gap 12, BUN 9, Creatinine 0.45 L, Estim Creat Clear Calc 187.63, Est GFR (MDRD) Non-Af 121, BUN/Creatinine Ratio 18.8, Glucose 106 H, Calcium 9.3, Phosphorus 2.7, Total Bilirubin 0.37, Direct Bilirubin 0.14, AST 20, ALT 18, Alkaline Phosphatase 81, Lactate Dehydrogenase 122, C-React Prot Ext Range 66.30 H, Total Protein 6.2, Albumin 3.5, Globulin 2.7 03/29/25 12:30: WBC 9.0, RBC 3.61 L, Hgb 9.6 L, Hct 30.8 L, MCV 85.3, MCH 26.6 L, MCHC 31.2 L, RDW Std Deviation 42.6, RDW Coeff of Chelsie 13.6, Plt Count 220, MPV 10.6, Immature Gran % (Auto) 0.300, Neut % (Auto) 72.7 H, Lymph % (Auto) 19.8, [place] % (Auto) 5.8, Eos % (Auto) 1.2, Baso % (Auto) 0.2, Absolute Neuts (auto) 6.5, Absolute Lymphs (auto) 1.78, Nucleated RBC % 0 03/27/25 18:25: WBC 11.5 H, RBC 4.84, Hgb 12.7, Hct 39.6, MCV 81.8, MCH 26.2 L, MCHC 32.1, RDW Std Deviation 39.2, RDW Coeff of Chelsie 13.3, Plt Count 338, MPV 10.2, Immature Gran % (Auto) 0.300, Neut % (Auto) 70.1 H, Lymph % (Auto) 21.2, [place] % (Auto) 5.9, Eos % (Auto) 2.2, Baso % (Auto) 0.3, Absolute Neuts (auto) 8.0 H, Absolute Lymphs (auto) 2.43, Nucleated RBC % 0, Sodium 138, Potassium 3.6, Chloride 99, Carbon Dioxide 26.7, Anion Gap 12, BUN 11, Creatinine 0.50 L, Estim Creat Clear Calc 168.45, Est GFR (MDRD) Non-Af 118, BUN/Creatinine Ratio 22.0 H, Glucose 100 H, Hemoglobin A1c 5.7, Calcium 10.7, Magnesium 2.1, Total Bilirubin 0.48, AST 25, ALT 24, Alkaline Phosphatase 119 H, Total Protein 7.7, Albumin 4.7, Globulin 3.0, Albumin/Globulin Ratio 1.6, Lipase > 3000 H, TSH 2.940, Serum , Qual NEGATIVE, Ethyl Alcohol < 10.1 03/27/25 18:30: Urine Color Straw, Urine Clarity Clear, Urine pH 6.0, Ur Specific [place] 1.015, Urine Protein 15 H, Urine Glucose (UA) Normal, Urine Ketones Negative, Urine Occult Blood 25 H, Urine Nitrite Negative, Urine Bilirubin Negative, Urine Urobilinogen Normal, Ur Leukocyte Esterase Negative, Urine RBC 0-5 SEEN, Urine WBC 0-5 SEEN, Ur Squamous Epith Cells 0-5 SEEN, Urine Bacteria 0 SEEN, Urine Mucus 1+ 03/28/25 05:26: WBC 6.8, RBC 3.96 L, Hgb 10.8 L, Hct 33.2 L, MCV 83.8, MCH 27.3, MCHC 32.5, RDW Std Deviation 41.9, RDW Coeff of Chelsie 13.6, Plt Count 241, MPV 10.2, Immature Gran % (Auto) 0.300, Neut % (Auto) 69.0, Lymph % (Auto) 23.2, [place] % (Auto) 4.4, Eos % (Auto) 2.8, Baso % (Auto) 0.3, Absolute Neuts (auto) 4.7, Absolute Lymphs (auto) 1.58, Nucleated RBC % 0, Sodium 139, Potassium 4.1, Chloride 105, Carbon Dioxide 26.6, Anion Gap 7, BUN 13, Creatinine 0.58 L, Estim Creat Clear Calc 145.11, Est GFR (MDRD) Non-Af 114, BUN/Creatinine Ratio 22.3 H, Glucose 118 H, Calcium 9.6, Phosphorus 3.0, Total Bilirubin 0.31, AST 19, ALT 18, Alkaline Phosphatase 82, Total Protein 6.3, Albumin 3.6, Globulin 2.7, Albumin/Globulin Ratio 1.4, Triglycerides 77, Cholesterol 136, LDL Cholesterol, Calc 73, VLDL Cholesterol 15, HDL Cholesterol 48, Cholesterol/HDL Ratio 2.85, Lipase 1356 H Clinical Impression(s) from Imaging Studies Abdomen/Pelvis CT 03/27/25 19:03 IMPRESSION: Findings compatible with acute pancreatitis. Potential areas of necrotizing pancreatitis within the head. Similar findings are noted on the previous study. Reading Location: [facility] MRCP 03/28/25 02:12 IMPRESSION: Negative for choledocholithiasis. Pancreatitis. Reading Location: [facility] Charges/Coding Visit Charges Inpatient E&M: 82263 Subs Hosp L2
[2025-03-29] MEDS: Lactated Ringers 1,000 ML 150 ML IV (18:41)
--- NOTE | 2025-03-29 19:26 | PN_ITS ---
Progress Note 44-year-old female presents with acute recurrent pancreatitis of unknown etiology. She reports persistent abdominal pain but states that it is now to lerable. She was able to eat a small amount of food today. No nausea, vomiting, or fever reported currently.? Physical Exam Const alert, oriented x3, no apparent distress and healthy appearing General Appearance: cooperative GI normal to inspection, nondistended, normoactive bowel sounds, soft to palpation, non-tender and non-distended Percussion: normal to percussion Rectal Exam: deferred Assessment & Plan Assessment/Plan (1) Acute recurrent pancreatitis: PLAN: 44-year-old female with acute recurrent pancreatitis, likely classified as idiopathic given the negative workup for common causes like gallstones, alcohol, autoimmune disease, and hypertriglyceridemia. The latest CT showing questionable necrosis in the pancreatic tail elevates concern for severe pancreatitis. The successful initiation of oral intake, albeit minimal, is a positive sign for recovery. The continued abdominal pain, however, warrants ongoing monitoring and pain management. The etiology remains a diagnostic challenge, and further investigation is necessary, potentially requiring advanced imaging like Endoscopic Ultrasound (EUS) to rule out microlithiasis, pancreas divisum, or sphincter of Oddi dysfunction. Plan * Pain Management:?Continue current pain regimen. Given the history, use opioids cautiously and monitor for side effects, particularly constipation. Also it is noted that opioids can cause increased pressure in the sphincter of Oddi. * Nutrition:?Continue advancing the diet as tolerated. Progress to a low-fat, soft diet, and monitor for any recurrence of pain or other symptoms with increased oral intake. Continue intravenous hydration to maintain euvolemia. Agree with continuing pancreatic enzymes. * Antibiotics:?Continue meropenem as directed, pending culture results or clinical response. Prophylactic antibiotics for sterile necrosis are not indicated, but are used when infection is suspected, as is the case here. Monitor for signs of clinical improvement or deterioration that might suggest infected necrosis. * Monitoring and Diagnostics: * Continue close monitoring of vitals, fluid status, and clinical condition. * Repeat lab work (CBC, renal function) as needed. * A repeat CT scan should be performed only if it will alter management, such as guiding an aspiration for culture. * Recurrent Pancreatitis Workup: * Consider further workup for the idiopathic recurrent pancreatitis once the acute episode resolves. This will involve Endoscopic Ultrasound (EUS) to evaluate for microlithiasis, anatomical abnormalities like pancreas divisum, or Sphincter of Oddi dysfunction. Visit Charges Inpatient E&M: 28440 Subs Hosp L3
[2025-03-29 20:00] VITALS: BP 180/100; PULSE 83; RESP 16; TEMP 36.6; O2SAT 96
[2025-03-29 20:13] VITALS: BP 180/100; PULSE 83
[2025-03-29] MEDS: Senna/Docusate Sodium 1 Tablet 2 TABLET PO (20:17)
[2025-03-29 21:40] VITALS: BP 157/90; PULSE 86; RESP 16; TEMP 36.6; O2SAT 94
[2025-03-30] MEDS: Lactated Ringers 1,000 ML 150 ML IV (01:34)
[2025-03-30 02:00] VITALS: BP 143/84; PULSE 92; RESP 18; TEMP 36.5; O2SAT 97
[2025-03-30] MEDS: Meropenem 1 GM in 0.9% Normal Saline (100mL MB+) 100 ML IV (05:03)
[2025-03-30 05:19] LABS: Hematocrit 31.9 % (37-47); Hemoglobin 10.2 g/dL (12.0-15.0); Immature Granulocytes Count 0.030 X10^3/uL (0.0-0.0); Mean Corp Hgb Conc 32.0 g/dL (32-36); Mean Corpuscular Volume 83.7 fL (81-99); Mean Platelet Vol. 10.6 fl (6.2-12.0); NRBC Flagged by Analyzer 0 % (0-5); Platelet Count 257 K/mm3 (150-450); RBC Distribution Width CV 13.6 % (11.6-14.6); RBC Distribution Width SD 41.6 fl (35.1-43.9); Red Blood Count 3.81 M/mm3 (4.2-5.4); White Blood Count 9.4 K/mm3 (4.4-11.0)
[2025-03-30 05:51] LABS: AST(SGOT) 17 U/L (<=31); Alanine Aminotransfer ALT/SGPT 16 U/L (<=34); Albumin, Serum 3.6 g/dL (3.5-5.0); Alkaline Phosphatase 88 U/L (35-104); Anion Gap 8 (5-15); BUN 6 mg/dL (4-19); BUN/Creat Ratio 15.9 RATIO (10-20); Bilirubin, Direct 0.20 mg/dL (0.00-0.30); Calcium,Total 9.5 mg/dL (7.6-11.0); Carbon Dioxide 28.7 mmol/L (21.0-32.0); Chloride 101 mmol/L (98-108); Estimated Creatinine Clearance 228.20 ml/min (50-250); Globulin 2.7 g/dL (2.2-4.2); Glucose 108 mg/dL (70-99); Potassium 3.8 mmol/L (3.3-5.1)
[2025-03-30 08:35] VITALS: BP 141/88; PULSE 78; RESP 15; TEMP 36.6; O2SAT 95
[2025-03-30] MEDS: 0.9% Saline Lock 10 ML Syringe IV (08:47)
[2025-03-30] MEDS: Pantoprazole Sodium 40 MG in 0.9% Normal Saline (100mL MB+) 100 ML 330 MG IV (09:18)
[2025-03-30] MEDS: Senna/Docusate Sodium 1 Tablet 2 TABLET PO (09:18)
[2025-03-30] MEDS: 0.9% Normal Saline (250mL Bag) 250 ML 15 ML IV (09:18)
[2025-03-30] MEDS: Creon 24,000 unit DR Capsule 2 CAP PO (09:19)
--- NOTE | 2025-03-30 10:51 | DCINST_ITS ---
Discharge Instructions DC O2, CPAP, BIPAP needs Home O2 Discharge instructions: No Dressing / Incision Discharge Activity: Return to Normal Activity Weight Bearing Status: Weight bearing as tolerated Dressing / Incision Call your doctor if you observe: Fever of 101 or Higher, Coldness, Increased Pain, Numbness or Tingling, Change in Color, Inability to urinate, Inability to have a bowel movement, Shortness of breath, Dizziness, Fainting spells, Swelling in the ankles, Chest pain, Prolonged hiccupping, Increased palpitations (irregular heartbeat) and Calf discomfort Follow Up Care When: IN 2 WEEKS Test Results: Test results from this visit will be discussed in further detail at your follow- up appointment, if applicable. Discharge Plan Admission Admit Date/Time: 03/27/25 21:16 Primary Reason for Your Visit: Acute on recurrent pancreatitis Attending Provider: Niranjan Noe Primary Care Provider: Mary Escobar Consulting Providers: Niranjan Noe; Arturo Sotelo; Daniella Lawler; Nataliia Montalvo; Ainsley Dotson; Zak Carcamo Discharge Orders/Prescriptions Prescriptions: New Creon 24,000-76,000 -120,000 unit Capsule,Delayed Release(Dr/Ec) 2 cap PO TIDCM 30 Days Qty: 180 2RF oxycodone 5 mg tablet 2.5 - 5 mg PO Q4H PRN PRN (Reason: Pain Score 4-10) 3 Days Qty: 7 0RF Rx Instructions: 2.5 mg for moderate pain 5 mg for severe pain respectively levofloxacin 500 mg tablet 500 mg PO DAILY 5 Days Qty: 5 0RF Continued ipratropium bromide 42 mcg (0.06 %) spray,non-aerosol 1 spray INTRANASAL TID PRN PRN (Reason: allergy symptoms) sennosides-docusate sodium [Stimulant Laxative Plus] 8.6-50 mg Tablet 2 tab PO BID PRN (Reason: Constipation) Qty: 0 0RF Rx Instructions: [id number] topiramate 25 mg tablet 25 mg PO BID amlodipine 5 mg tablet 5 mg PO DAILY Held fluoxetine 60 mg tablet 60 mg PO DAILY Hold Instructions: Hold for 5 days while taking levofloxacin for drug-drug interaction, QT prolongation Referrals / Follow Up: Mary Escobar MD [Primary Care Provider, Family Practice] Arturo Sotelo DO [Med Staff - Active Staff, Gastroenterology] - Within 1 Month Referral Note: To arrange EUS for pancreatitis outside Disposition Disposition (needs filled in before D/C Order can be placed): Home, Self Care
--- NOTE | 2025-03-30 11:57 | PCM.DC.SUM ---
Providers Date of Admission: 03/27/25 Date of Discharge: 03/30/25 Primary Care Physician: Mary Escobar MD Consultations 03/27/25 21:33 Consult: Gastroenterology Routine Consulting Provider: [facility] Reason for Consult: Recurrent Acute Pancreatitis. EMERGENT Consult: No MD Notified: Yes Date Notified: 03/27/25 Time Notified: 21:19 Method of Notification: ED Physician Initiated Reason For Visit: RECURRENT ACUTE PANCREATITIS Diagnosis Discharge Diagnosis (1) Acute recurrent pancreatitis: Status: Acute Code(s): K85.90 - Acute pancreatitis without necrosis or infection, unspecified Plan 44-year-old female admitted with severe epigastric pain with high lipase and CT finding suggestive of acute pancreatitis with potential area of necrotizing pancreatitis within head of pancreas: 1. Acute on recurrent pancreatitis with CT reporting a potential necrotizing pancreatitis: Patient is being admitted to [facility] [place] floor. Patient had subjective chills and drenching sweats at home but no measured fever. Lipase 1356, more than 10 times ULN. Pemberton's criteria at admission 0 but LDH not available. LDH ordered. N.p.o. IV fluid with aggressive rehydration. On empiric IV meropenem with CT reporting of potential necrotizing pancreatitis. Pantoprazole for tomorrow IV daily. Supportive treatment will for nausea or vomiting and pain control. CT abdomen/pelvis with IV contrast individually reviewed. I agree moderate fat stranding with hazy/indistinct mesentery suggesting acute pancreatitis. No focal fluid collection or abscess or pseudocyst. Reporting raise suspicion of necrotizing pancreatitis. MRCP is ordered. No fever.. Patient on IV meropenem. Mild leukocytosis resolved. 03/29: Patient tolerated clear liquid diet advance to full liquid. Patient had MRCP which is negative for choledocholithiasis and shows pancreatitis with increased signal in the tail with retroperitoneal fluid. No liver or pancreatic mass. No dilatation of extrahepatic biliary duct or pancreatic duct. Patient started on Creon 2 tablets 3 times daily with liquid diet. Labs done today shows decreasing hematocrit 3%. Pemberton criteria at admission and repeat 48 hours is 0. Continue IV antibiotics. 03/30: Discussed with Dr. Sotelo. Abdominal pain is better about 7-8/10 intensity which was very intractable more than 10 days per the patient. She tolerated soft diet. MRCP shows mild retroperitoneal fluid/increased signal in the tail of pancreas. Overall my feel CT reporting of suspicion of necrotizing pancreatitis probably over read. No air trapping on CT scan. Patient asked for oxycodone. Prescription for oxycodone total 7 tablets, oxycodone 2.5 mg for moderate pain and 5 mg for severe pain respectively given. OARRS reviewed. Unintentional overdose risk score 310. Prescriptions of phentermine oxycodone given in the past. Patient not showing signs of infection but prescription for levofloxacin total 5 tablets given as a precautionary measure. Advised follow-up in GI office to arrange EUS. 2. 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 Sotelo (November 29, 2024) with subsequent removal of biliary stent with surgical cholecystectomy. Lipid profile within normal limit. TG 77 03/29: MRCP does not show choledocholithiasis as mentioned above 3. Obesity (class III); with BMI of 39.3 this admission adding to the burden of disease outlined in #1 & #2 - Weight loss will be recommended with patient explaining she was previously on topiramate to help lose weight but she stopped taking it because of side effects causing mental impairment. Check TSH. This complicates her case and may hamper recovery. 4. Essential hypertension; on amlodipine - Hold oral agents until further notice. Give hydralazine IV prn for systolic blood pressure > 160 mmHg. 5. Former tobacco abuse - Noted. 6. DVT/GI prophylaxis - Enoxaparin 40 mg sq daily plus SCD's. Pantoprazole 40 mg IV daily. Discharge medication reconciliation done. Discharge follow-up instructions completed. Discharge process discussed with the patient and all questions were answered to patient's satisfaction. Follow with PCP in 1 to 2 weeks Total time spent, exact 35 minutes on discharge meds reconciliation, examination, coordination of care with nurses and ancillary staff, review of imaging and blood test and discussion with the patient on follow-up instructions. Laboratory Results 03/28/25 05:26: Lactate Dehydrogenase 122 03/29/25 04:46: Sodium 135, Potassium 4.1, Chloride 101, Carbon Dioxide 22.1, Anion Gap 12, BUN 9, Creatinine 0.45 L, Estim Creat Clear Calc 187.63, Est GFR (MDRD) Non-Af 121, BUN/Creatinine Ratio 18.8, Glucose 106 H, Calcium 9.3, Phosphorus 2.7, Total Bilirubin 0.37, Direct Bilirubin 0.14, AST 20, ALT 18, Alkaline Phosphatase 81, Lactate Dehydrogenase 122, C-React Prot Ext Range 66.30 H, Total Protein 6.2, Albumin 3.5, Globulin 2.7 03/29/25 12:30: WBC 9.0, RBC 3.61 L, Hgb 9.6 L, Hct 30.8 L, MCV 85.3, MCH 26.6 L, MCHC 31.2 L, RDW Std Deviation 42.6, RDW Coeff of Chelsie 13.6, Plt Count 220, MPV 10.6, Immature Gran % (Auto) 0.300, Neut % (Auto) 72.7 H, Lymph % (Auto) 19.8, [place] % (Auto) 5.8, Eos % (Auto) 1.2, Baso % (Auto) 0.2, Absolute Neuts (auto) 6.5, Absolute Lymphs (auto) 1.78, Nucleated RBC % 0 03/27/25 18:25: WBC 11.5 H, RBC 4.84, Hgb 12.7, Hct 39.6, MCV 81.8, MCH 26.2 L, MCHC 32.1, RDW Std Deviation 39.2, RDW Coeff of Chelsie 13.3, Plt Count 338, MPV 10.2, Immature Gran % (Auto) 0.300, Neut % (Auto) 70.1 H, Lymph % (Auto) 21.2, [place] % (Auto) 5.9, Eos % (Auto) 2.2, Baso % (Auto) 0.3, Absolute Neuts (auto) 8.0 H, Absolute Lymphs (auto) 2.43, Nucleated RBC % 0, Sodium 138, Potassium 3.6, Chloride 99, Carbon Dioxide 26.7, Anion Gap 12, BUN 11, Creatinine 0.50 L, Estim Creat Clear Calc 168.45, Est GFR (MDRD) Non-Af 118, BUN/Creatinine Ratio 22.0 H, Glucose 100 H, Hemoglobin A1c 5.7, Calcium 10.7, Magnesium 2.1, Total Bilirubin 0.48, AST 25, ALT 24, Alkaline Phosphatase 119 H, Total Protein 7.7, Albumin 4.7, Globulin 3.0, Albumin/Globulin Ratio 1.6, Lipase > 3000 H, TSH 2.940, Serum , Qual NEGATIVE, Ethyl Alcohol < 10.1 03/27/25 18:30: Urine Color Straw, Urine Clarity Clear, Urine pH 6.0, Ur Specific [place] 1.015, Urine Protein 15 H, Urine Glucose (UA) Normal, Urine Ketones Negative, Urine Occult Blood 25 H, Urine Nitrite Negative, Urine Bilirubin Negative, Urine Urobilinogen Normal, Ur Leukocyte Esterase Negative, Urine RBC 0-5 SEEN, Urine WBC 0-5 SEEN, Ur Squamous Epith Cells 0-5 SEEN, Urine Bacteria 0 SEEN, Urine Mucus 1+ 03/28/25 05:26: WBC 6.8, RBC 3.96 L, Hgb 10.8 L, Hct 33.2 L, MCV 83.8, MCH 27.3, MCHC 32.5, RDW Std Deviation 41.9, RDW Coeff of Chelsie 13.6, Plt Count 241, MPV 10.2, Immature Gran % (Auto) 0.300, Neut % (Auto) 69.0, Lymph % (Auto) 23.2, [place] % (Auto) 4.4, Eos % (Auto) 2.8, Baso % (Auto) 0.3, Absolute Neuts (auto) 4.7, Absolute Lymphs (auto) 1.58, Nucleated RBC % 0, Sodium 139, Potassium 4.1, Chloride 105, Carbon Dioxide 26.6, Anion Gap 7, BUN 13, Creatinine 0.58 L, Estim Creat Clear Calc 145.11, Est GFR (MDRD) Non-Af 114, BUN/Creatinine Ratio 22.3 H, Glucose 118 H, Calcium 9.6, Phosphorus 3.0, Total Bilirubin 0.31, AST 19, ALT 18, Alkaline Phosphatase 82, Total Protein 6.3, Albumin 3.6, Globulin 2.7, Albumin/Globulin Ratio 1.4, Triglycerides 77, Cholesterol 136, LDL Cholesterol, Calc 73, VLDL Cholesterol 15, HDL Cholesterol 48, Cholesterol/HDL Ratio 2.85, Lipase 1356 H Clinical Impression(s) from Imaging Studies Abdomen/Pelvis CT 03/27/25 19:03 IMPRESSION: Findings compatible with acute pancreatitis. Potential areas of necrotizing pancreatitis within the head. Similar findings are noted on the previous study. Reading Location: [id number] MRCP 03/28/25 02:12 IMPRESSION: Negative for choledocholithiasis. Pancreatitis. Reading [facility] Medications at Discharge Home Medications ipratropium bromide 42 mcg (0.06 %) nasal spray 1 spray intranasal TID PRN PRN allergy symptoms 09/12/24 sennosides 8.6 mg-docusate sodium 50 mg tablet (Stimulant Laxative Plus) 2 tab PO BID PRN Constipation #0 tabs 10/22/24 amlodipine 5 mg tablet 5 mg PO DAILY 03/27/25 fluoxetine 60 mg tablet 60 mg PO DAILY anxiety/depression 03/27/25 Held on 03/30/25. Instructions: Hold for 5 days while taking levofloxacin for drug-drug interaction, QT prolongation topiramate 25 mg tablet 25 mg PO BID 03/27/25 levofloxacin 500 mg tablet 500 mg PO DAILY 5 days #5 tabs 03/30/25 [id number] 24,000-76,000-120,000 unit capsule,delayed rel (Creon) 2 cap PO TIDCM 30 days #180 caps 03/30/25 oxycodone 5 mg tablet 2.5 - 5 mg (0.5 - 1 x 5 mg) PO Q4H PRN PRN Pain Score 4-10 3 days #7 tabs 03/30/25 Hospital Course Summary of Care Provided Hospital Course: Laboratory Results 03/29/25 04:46: Sodium 135, Potassium 4.1, Chloride 101, Carbon Dioxide 22.1, Anion Gap 12, BUN 9, Creatinine 0.45 L, Estim Creat Clear Calc 187.63, Est GFR (MDRD) Non-Af 121, BUN/Creatinine Ratio 18.8, Glucose 106 H, Calcium 9.3, Total Bilirubin 0.37, Direct Bilirubin 0.14, AST 20, ALT 18, Alkaline Phosphatase 81, C-React Prot Ext Range 66.30 H, Total Protein 6.2, Albumin 3.5, Globulin 2.7 03/29/25 12:30: WBC 9.0, RBC 3.61 L, Hgb 9.6 L, Hct 30.8 L, MCV 85.3, MCH 26.6 L, MCHC 31.2 L, RDW Std Deviation 42.6, RDW Coeff of Chelsie 13.6, Plt Count 220, MPV 10.6, Immature Gran % (Auto) 0.300, Neut % (Auto) 72.7 H, Lymph % (Auto) 19.8, [place] % (Auto) 5.8, Eos % (Auto) 1.2, Baso % (Auto) 0.2, Absolute Neuts (auto) 6.5, Absolute Lymphs (auto) 1.78, Nucleated RBC % 0 03/30/25 04:29: WBC 9.4, RBC 3.81 L, Hgb 10.2 L, Hct 31.9 L, MCV 83.7, MCH 26.8 L, MCHC 32.0, RDW Std Deviation 41.6, RDW Coeff of Chelsie 13.6, Plt Count 257, MPV 10.6, Immature Gran % (Auto) 0.300, Neut % (Auto) 74.1 H, Lymph % (Auto) 18.6 L, [place] % (Auto) 5.0, Eos % (Auto) 1.7, Baso % (Auto) 0.3, Absolute Neuts (auto) 7.0, Absolute Lymphs (auto) 1.75, Nucleated RBC % 0, Sodium 138, Potassium 3.8, Chloride 101, Carbon Dioxide 28.7, Anion Gap 8, BUN 6, Creatinine 0.37 L, Estim Creat Clear Calc 228.20, Est GFR (MDRD) Non-Af 127, BUN/Creatinine Ratio 15.9, Glucose 108 H, Calcium 9.5, Total Bilirubin 0.42, Direct Bilirubin 0.20, AST 17, ALT 16, Alkaline Phosphatase 88, Total Protein 6.3, Albumin 3.6, Globulin 2.7 Physical Exam Narrative Seen and examined. Tolerated soft diet well. Abdominal pain has improved. She had biliary stent in November and was removed subsequently. Physical exam General: Alert, Oriented x3, Cooperative. BMI 39.0 kg/m?, obesity grade 2 HEENT: Atraumatic, PERRLA, EOMI, Normocephalic. Oral: No Gingival or Mucosal Lesions/ Ulcerations Neck: Supple, No JVD, Negative Carotid Bruits Chest wall/Lungs: Air entry diminished in bilateral lung bases. No crepitation/rhonchi Cardiovascular: Regular rate and rhythm, Normal S1,S2, No M/G/R Abdomen: Bowel Sounds sluggish. Soft, very mild tenderness present in epigastric/upper abdomen. No rebound tenderness. : No dysuria. No renal angle tenderness. No suprapubic tenderness. Extremities: No edema, Capillary Refill Less than 3 Seconds Skin: No rashes, No breakdown Musculoskeletal: No Tenderness to Palpation of Joints or Extremities Neurological: Cranial nerves II-XII grossly intact, DTR 2+/4. No acute focal neurological deficit. Psych/Mental Status: Normal Affect, Appropriate. Weight / BMI Weight Weight: 229 lb 11.547 oz Body Mass Index (BMI) 39.2 ABG / Lab / Microbiology Data 03/30/25 04:29 03/30/25 04:29 Laboratory: Laboratory Results - last 24 hr 03/29/25 04:46: Sodium 135, Potassium 4.1, Chloride 101, Carbon Dioxide 22.1, Anion Gap 12, BUN 9, Creatinine 0.45 L, Estim Creat Clear Calc 187.63, Est GFR (MDRD) Non-Af 121, BUN/Creatinine Ratio 18.8, Glucose 106 H, Calcium 9.3, Total Bilirubin 0.37, Direct Bilirubin 0.14, AST 20, ALT 18, Alkaline Phosphatase 81, C-React Prot Ext Range 66.30 H, Total Protein 6.2, Albumin 3.5, Globulin 2.7 03/29/25 12:30: WBC 9.0, RBC 3.61 L, Hgb 9.6 L, Hct 30.8 L, MCV 85.3, MCH 26.6 L, MCHC 31.2 L, RDW Std Deviation 42.6, RDW Coeff of Chelsie 13.6, Plt Count 220, MPV 10.6, Immature Gran % (Auto) 0.300, Neut % (Auto) 72.7 H, Lymph % (Auto) 19.8, [place] % (Auto) 5.8, Eos % (Auto) 1.2, Baso % (Auto) 0.2, Absolute Neuts (auto) 6.5, Absolute Lymphs (auto) 1.78, Nucleated RBC % 0 03/30/25 04:29: WBC 9.4, RBC 3.81 L, Hgb 10.2 L, Hct 31.9 L, MCV 83.7, MCH 26.8 L, MCHC 32.0, RDW Std Deviation 41.6, RDW Coeff of Chelsie 13.6, Plt Count 257, MPV 10.6, Immature Gran % (Auto) 0.300, Neut % (Auto) 74.1 H, Lymph % (Auto) 18.6 L, [place] % (Auto) 5.0, Eos % (Auto) 1.7, Baso % (Auto) 0.3, Absolute Neuts (auto) 7.0, Absolute Lymphs (auto) 1.75, Nucleated RBC % 0, Sodium 138, Potassium 3.8, Chloride 101, Carbon Dioxide 28.7, Anion Gap 8, BUN 6, Creatinine 0.37 L, Estim Creat Clear Calc 228.20, Est GFR (MDRD) Non-Af 127, BUN/Creatinine Ratio 15.9, Glucose 108 H, Calcium 9.5, Total Bilirubin 0.42, Direct Bilirubin 0.20, AST 17, ALT 16, Alkaline Phosphatase 88, Total Protein 6.3, Albumin 3.6, Globulin 2.7 D/C Instructions Weight Bearing Status: Weight bearing as tolerated Call your doctor if you observe: Fever of 101 or Higher, Coldness, Increased Pain, Numbness or Tingling, Change in Color, Inability to urinate, Inability to have a bowel movement, Shortness of breath, Dizziness, Fainting spells, Swelling in the ankles, Chest pain, Prolonged hiccupping, Increased palpitations (irregular heartbeat) and Calf discomfort DC O2, CPAP, BIPAP Needs Home O2 Discharge instructions: No When: IN 2 WEEKS Meaningful Use Info Meaningful Use Meaningful Use Diagnoses (Choose all that apply): None applicable Discharge Plan Admission Admit Date/Time: 03/27/25 21:16 Primary Reason for Your Visit: Acute on recurrent pancreatitis Attending Provider: Niranjan Noe Primary Care Provider: Mary Escobar Consulting Providers: Niranjan Noe; Ashleigh,Arturo; Daniella Lawler; Nataliia Montalvo; Ainsley Dotson; Zak Carcamo Discharge Orders/Prescriptions Prescriptions: New Creon 24,000-76,000 -120,000 unit Capsule,Delayed Release(Dr/Ec) 2 cap PO TIDCM 30 Days Qty: 180 2RF oxycodone 5 mg tablet 2.5 - 5 mg PO Q4H PRN PRN (Reason: Pain Score 4-10) 3 Days Qty: 7 0RF Rx Instructions: 2.5 mg for moderate pain 5 mg for severe pain respectively levofloxacin 500 mg tablet 500 mg PO DAILY 5 Days Qty: 5 0RF Continued ipratropium bromide 42 mcg (0.06 %) spray,non-aerosol 1 spray INTRANASAL TID PRN PRN (Reason: allergy symptoms) sennosides-docusate sodium [Stimulant Laxative Plus] 8.6-50 mg Tablet 2 tab PO BID PRN (Reason: Constipation) Qty: 0 0RF Rx Instructions: Qapj-jjd-aofqwir topiramate 25 mg tablet 25 mg PO BID amlodipine 5 mg tablet 5 mg PO DAILY Held fluoxetine 60 mg tablet 60 mg PO DAILY Hold Instructions: Hold for 5 days while taking levofloxacin for drug-drug interaction, QT prolongation Referrals / Follow Up: Mary Escobar MD [Primary Care Provider, Family Practice] FriendArturo DO [Med Staff - Active Staff, Gastroenterology] - Within 1 Month Referral Note: To arrange EUS for pancreatitis outside Disposition Disposition (needs filled in before D/C Order can be placed): Home, Self Care Charges/Coding Visit Charges Inpatient E&M: 89239 Disch Hosp >30min
== END 2025-03-30 12:50 | disposition home or self-care (01) | DRG 440 ==
LOC: ED 20:49 → MS3 21:24
PROVIDERS: Admitting Provider Internal Medicine; Emergency Provider Emergency Medicine; PCP Family Medicine; Visit Provider Internal Medicine
DX: K85.90 Acute pancreatitis without necrosis or infection, unspecified (principal); K80.50 Calculus of bile duct without cholangitis or cholecystitis without obstruction; I10 Essential (primary) hypertension; Z68.39 Body mass index [BMI] 39.0-39.9, adult; E66.813 Obesity, class 3; D72.829 Elevated white blood cell count, unspecified; Z79.899 Other long term (current) drug therapy; Z87.891 Personal history of nicotine dependence
CPT/HCPCS: 36415; 74177; 74181; 80048; 80053; 80061; 80076; 81001; 82077; 83036; 83615; 83690; 83735; 84100; 84443; 84703; 85025; 86140; 99283; J2185; Q9967; A4216; J2405

== ENCOUNTER 2025-05-23 15:01 | Emergency (ER) | payer BC, SELFPAY ==
[2025-05-23 15:01] VITALS: BP 223/125; PULSE 86; RESP 20; TEMP 36.2; O2SAT 98; BMI 38.9
--- NOTE | 2025-05-23 15:09 | EDS_ITS ---
HPI HPI - GI History of Present Illness Chief Complaint: Abd Pain Informant: patient Abdominal Pain/Flank Pain Onset: Yesterday Context: Gradual Onset Timing: Continuous Quality: Aching and Sharp Location: LUQ and Left Flank Worsened by: Nothing Relieved by: Nothing Nausea/Vomiting/Emesis GI Symptom: Positive for Nausea and Vomiting Onset: Today Quality: Positive for Nonbilious; Negative for Blood streaks, Coffee ground or Hematemesis Diarrhea/Melena/Hematochezia GI Symptom: Negative for Diarrhea, Melena or Hematochezia Associated Symptoms Associated Symptoms: Positive for Frequency; Negative for Dysuria or Hematuria LMP: Current Narrative Narrative: Patient presents with abdominal pain that began yesterday. Patient states it is gradually getting worse. Patient describes it as aching and sharp. Patient states it feels similar to prior episodes of pancreatitis. Patient admits to some nausea and vomiting. Patient denies any hematemesis or coffee-ground emesis. Patient states her pain is mainly over the left upper abdomen and radiates into her left flank. Patient states nothing makes it better and nothing makes it worse. Patient denies any diarrhea, melena, or hematochezia. Patient admits to some urinary frequency but denies any dysuria or hematuria. Patient states she is currently on her menstrual period. [facility] Medical History Depression Former smoker Migraines Gastric reflux History of biliary stent insertion Intractable abdominal pain Acute recurrent pancreatitis Hypertension Pancreatitis Hypertension Anxiety Home Medications ?Medication ?Instructions ?Recorded ?Last Taken ?Type ipratropium bromide 42 mcg (0.06 1 spray intranasal TI D PRN PRN 09/12/24 Unknown History %) nasal spray allergy symptoms sennosides 8.6 mg-docusate sodium 2 tab PO BID PRN Con stipation #0 10/22/24 Unknown Rx 50 mg tablet (Stimulant Laxative tabs Plus) amlodipine 5 mg tablet 5 mg PO DAILY 03/27/25 Unkno wn History fluoxetine 60 mg tablet 60 mg PO DAILY anxiety/depre ssion 03/27/25 Unknown History Held on 03/30/25. Instructions: Hold for 5 days while taking levofloxacin for drug-drug interaction, QT prolongation topiramate 25 mg tablet 25 mg PO BID 03/27/25 Unknow n History levofloxacin 500 mg tablet 500 mg PO DAILY 5 days #5 t abs 03/30/25 Unknown Rx [id number](pork)24,000-76,000-120,000 2 ca p PO TIDCM 30 days #180 caps 03/30/25 Unknown Rx unit capsule,del rel (Creon) oxycodone 5 mg tablet 2.5 - 5 mg (0.5 - 1 x 5 mg) PO Q4H 03/30/25 Unknown Rx PRN PRN Pain Score 4-10 3 days #7 tabs Allergy/AdvReac Type Severity Reaction Status Date / Time No Known Allergies Allergy Verified 05/23/25 15:02 Family History Other Hypertension Surgical History S/P ERCP Hx of cholecystectomy Social History Smoking Status: Former smoker alcohol intake: current alcohol intake frequency: 0-2 drinks per day substance use type: does not use ROS ROS ED Constitutional Constitutional ED: Denies chills or fever(s) Eyes Eyes: Reports blurry vision ENT ENT ED: Reports sore throat; Denies rhinorrhea Cardiovascular Cardiovascular: Denies chest pain or palpitations Respiratory/Chest Respiratory/Chest: Reports dyspnea; Denies cough Gastrointestinal Gastrointestinal: Reports abdominal pain, nausea and vomiting; Denies diarrhea or melena Genitourinary Genitourinary ED: Reports urinary frequency; Denies dysuria or hematuria Musculoskeletal Musculoskeletal: Denies back pain or neck pain Integumentary Denies abscess or rash Neurologic Neurologic: Denies headache(s) or weakness Allergic/Immunologic Allergic/Immunologic ED: Denies mouth swelling or urticaria EXAM Physical Exam Const Vital Signs: 05/23/25 15:01 Temperature 97.2 F L Temperature Source Temporal Pulse Rate 86 Respiratory Rate 20 H Blood Pressure 223/125 H Blood Pressure Mean 157 Pulse Ox 98 Oxygen Delivery Method Room Air Positive well nourished and well developed Constitutional Narrative: BMI is 38.9. General Appearance ED: well developed and NAD HEENT Reports moist mucous membranes normocephalic and atraumatic Neck supple and no JVD Resp normal respiratory effort and clear to auscultation bilaterally Cardio regular rate and regular rhythm GI non-distended Palpation: soft and tender epigastric and LUQ; Negative for guarding or rebound tenderness present Back/Spine General Back: CVA tenderness left Extremity full ROM General Extremety ED: Negative for edema or tenderness General Extremity: Negative for edema Neuro CN's II-XII intact bilaterally, moves all extremities and no sensory deficits noted Sensorium / Orientation: alert Motor Exam: strength 5/5 throughout Psych mental status grossly normal and thought process normal MDM MDM MDM Narrative Medical decision making narrative: Differential diagnosis includes pancreatitis, peptic ulcer disease, duodenal ulcer, ureteral calculus, pyelonephritis, urinary tract infection, dehydration, and viral illness. CBC will be obtained to assess for leukocytosis and anemia. Comprehensive metabolic profile will be obtained to assess for hepatic function, renal function, and electrolyte abnormality. Lipase will be obtained to assess for pancreatitis. Urinalysis will be obtained to assess for urinary tract infection and hematuria. CT scan of the abdomen and pelvis will be obtained to assess for pancreatitis, bowel obstruction, perforation, and ureteral calculus. History & Record Review Additional record(s) reviewed:: Prior inpatient record and Prior labs Lab Data Attestation: I reviewed the patient's lab results. Lab results narrative: CBC was reviewed and was within normal limits. Comprehensive metabolic profile was reviewed and was essentially within normal limits. Lipase was reviewed and was normal at 11. Urinalysis was reviewed. There is no evidence of urinary tract infection or hematuria. Labs: Laboratory Results - last 24 hr 05/23/25 05/23/25 15:15 16:30 WBC 6.8 RBC 4.68 Hgb 12.1 Hct 38.4 MCV 82.1 MCH 25.9 L MCHC 31.5 L RDW Std Deviation 39.4 RDW Coeff of Chelsie 13.3 Plt Count 292 MPV 9.9 Immature Gran % (Auto) 0.300 Neut % (Auto) 64.1 Lymph % (Auto) 25.7 [place] % (Auto) 6.1 Eos % (Auto) 3.4 Baso % (Auto) 0.4 Absolute Neuts (auto) 4.3 Absolute Lymphs (auto) 1.74 Nucleated RBC % 0 Sodium 138 Potassium 3.6 Chloride 101 Carbon Dioxide 27.2 Anion Gap 10 BUN 11 Creatinine 0.51 L Estim Creat Clear Calc 170.31 Est GFR (MDRD) Non-Af 118 BUN/Creatinine Ratio 21.6 H Glucose 95 Calcium 10.5 Total Bilirubin 0.30 AST 35 H ALT 42 H Alkaline Phosphatase 102 Total Protein 7.2 Albumin 4.4 Globulin 2.8 Albumin/Globulin Ratio 1.6 Lipase 11 L Urine Color Straw Urine Clarity Clear Urine pH 6.5 Ur Specific [place] 1.015 Urine Protein Negative Urine Glucose (UA) Normal Urine Ketones Negative Urine Occult Blood 25 H Urine Nitrite Negative Urine Bilirubin Negative Urine Urobilinogen Normal Ur Leukocyte Esterase Negative Radiography Diagnostic Testing: Clinical Impression(s) from Imaging Studies Abdomen/Pelvis CT 05/23/25 15:21 IMPRESSION: A 3 cm subserosal leiomyoma in the posterior aspect of the uterus. Hepatomegaly and liver steatosis. Stable sclerotic lesion at L2 vertebral body compared to CT scan March 27, 2025. This lesion is indeterminate and may represent hemangioma or metastasis which can not be excluded. Reading Location: [facility] CT scan of the abdomen and pelvis was obtained. There is no evidence of pancreatitis. There is no bowel obstruction or perforation. There is a 3 cm subserosal fibroid in the posterior aspect of the uterus. There is no other acute abnormality noted. This was interpreted by the radiologist. I also independently reviewed the images. I did not see any evidence of bowel obs truction or perforation. There is no free air or free fluid. There is no evidence of pancreatitis. Treatment and Re-Evaluation :: Patient was given IV fluids, morphine, and Zofran. Patient was feeling better on reevaluation. Patient was advised of her findings. Patient was instructed to follow-up with her primary care physician in 5 to 7 days. Patient was instructed to return if worse in any way. Patient understood and was agreeable with the plan. All questions were answered. Discharge Plan Triage Chief Complaint: Abd Pain ED Provider: Luis Thompson Dx/Rx/DC Orders Clinical Impression: Abdominal pain, Hypertension, Obesity (BMI 30-39.9) Instructions: ED Abdominal Pain Unkn Cause Fem Prescriptions: No Action ipratropium bromide 42 mcg (0.06 %) spray,non-aerosol 1 spray INTRANASAL TID PRN PRN (Reason: allergy symptoms) sennosides-docusate sodium [Stimulant Laxative Plus] 8.6-50 mg Tablet 2 tab PO BID PRN (Reason: Constipation) Qty: 0 0RF Rx Instructions: [id number] topiramate 25 mg tablet 25 mg PO BID amlodipine 5 mg tablet 5 mg PO DAILY fluoxetine 60 mg tablet 60 mg PO DAILY Creon 24,000-76,000 -120,000 unit Capsule,Delayed Release(Dr/Ec) 2 cap PO TIDCM 30 Days Qty: 180 2RF oxycodone 5 mg tablet 2.5 - 5 mg PO Q4H PRN PRN (Reason: Pain Score 4-10) 3 Days Qty: 7 0RF Rx Instructions: 2.5 mg for moderate pain 5 mg for severe pain respectively levofloxacin 500 mg tablet 500 mg PO DAILY 5 Days Qty: 5 0RF Primary Care Provider: Mary Escobar Referrals: Mary Escobar MD [Primary Care Provider, Family Practice] - 5-7 Days Print Language: Georgian Disposition Disposition: Home, Self Care
--- NOTE | 2025-05-23 15:21 | CT_ITS ---
PROCEDURE: ABDOMEN/PELVIS W IV CONT ONLY 05/23/2025 REASON FOR EXAM: ABDOMINAL PAIN TECHNIQUE: Procedure Code: [id number] Modality: CT Procedure: ABDOMEN/PELVIS W IV CONT ONLY Coronal and Sagittal reconstruction series were provided. CONTRAST: Isovue 370 VOLUME: 98 mL One or more dose reduction techniques were used (e.g., Automated exposure control, adjustment of the mA and/or kV according to patient size, use of iterative reconstruction technique. RADIATION DOSE SUMMARY: CTDlvol: 23.44 mGy DLP: 1223.09 mGycm COMPARISON: CT abdomen and pelvis March 27, 2025. FINDINGS: Lung bases: Clear. Atherosclerotic calcifications of the coronary arteries. Liver: Liver steatosis. Hepatomegaly with the liver measures 22 cm in length. Gallbladder: Cholecystectomy. No biliary dilation. Spleen: Unremarkable. Pancreas: Unremarkable. Adrenals: Unremarkable. Kidneys: Unremarkable. Bladder: No biliary dilation. Reproductive Organs: A 3 cm subserosal leiomyoma in the posterior aspect of the uterus. Bowel: No bowel wall thickening. No bowel obstruction. Appendix: Normal. Lymph nodes: No lymphadenopathy. Vasculature: No aneurysm. Peritoneum / Retroperitoneum: No free air or free fluid. Bones: No acute bony abnormalities. Unchanged sclerotic lesion at L2 vertebral body Soft tissues: A small fat containing and periumbilical hernia measures 2.[address]/Abdomen/Pelvis W IV Cont ONLY IMPRESSION: A 3 cm subserosal leiomyoma in the posterior aspect of the uterus. Hepatomegaly and liver steatosis. Stable sclerotic lesion at L2 vertebral body compared to CT scan March 27. This lesion is indeterminate and may represent hemangioma or metastasis which c an not be excluded. Reading Location: [facility]
[2025-05-23 15:29] LABS: Hematocrit 38.4 % (37-47); Hemoglobin 12.1 g/dL (12.0-15.0); Immature Granulocytes Count 0.020 X10^3/uL (0.0-0.0); Mean Corp Hgb Conc 31.5 g/dL (32-36); Mean Corpuscular Volume 82.1 fL (81-99); Mean Platelet Vol. 9.9 fl (6.2-12.0); NRBC Flagged by Analyzer 0 % (0-5); Platelet Count 292 K/mm3 (150-450); RBC Distribution Width CV 13.3 % (11.6-14.6); RBC Distribution Width SD 39.4 fl (35.1-43.9); Red Blood Count 4.68 M/mm3 (4.2-5.4); White Blood Count 6.8 K/mm3 (4.4-11.0)
[2025-05-23] MEDS: 0.9% Normal Saline (1000mL) 1,000 ML 999 ML IV (15:31)
[2025-05-23 15:50] LABS: AST(SGOT) 35 U/L (<=31); Alanine Aminotransfer ALT/SGPT 42 U/L (<=34); Albumin, Serum 4.4 g/dL (3.5-5.0); Alkaline Phosphatase 102 U/L (35-104); Anion Gap 10 (5-15); BUN 11 mg/dL (4-19); BUN/Creat Ratio 21.6 RATIO (10-20); Calcium,Total 10.5 mg/dL (7.6-11.0); Carbon Dioxide 27.2 mmol/L (21.0-32.0); Chloride 101 mmol/L (98-108); Estimated Creatinine Clearance 170.31 ml/min (50-250); Globulin 2.8 g/dL (2.2-4.2); Glucose 95 mg/dL (70-99); Lipase 11 U/L (13-75); Potassium 3.6 mmol/L (3.3-5.1)
[2025-05-23 16:37] LABS: Mucous, Urine 0 SEEN /hpf (<or=2+)
[2025-05-23 17:20] LABS: Color, Urine Straw (Yellow); Glucose, Dipstick Normal (Normal); Ketone-Dipstick Negative (Negative); Leukocyte Esterase-Dipstick Negative /ul (Negative); Nitrite-Dipstick Negative (Negative); Occult Blood-Urine 25 /ul (Negative); Protein-Dipstick Negative (Negative); Specific Gravity, Urine 1.015 (1.002-1.030); Urine Bilirubin Dipstick Negative (Negative)
[2025-05-23 18:00] VITALS: BP 173/103; PULSE 76; RESP 12; TEMP 36.9; O2SAT 99
--- OUTSIDE RECORDS SUMMARY | 2025-05-23 18:30 | XMS RPT_ITS | CCD ---
Author Organization [facility] [place] [facility] Care Team Providers Care Milieu Manager Name Role Phone PROVIDER, UNKNOWN Unavailable Unavailable No, PCP Unavailable Unavailable ANITHA IBARRA Unavailable Unavailable Elsa Mac Unavailable Unavailable PROVIDER, UNKNOWN Unavailable Unavailable Santo Martin Unavailable Unavailable KATIA WATSON Attending Unavailable IMCA Referring Unavailable LINZEY, ESTRADA ([facility]) Primary Care Unavailabl e KATIA WATSON Attending Unavailable IMCA Referring Unavailable LINZEY, ESTRADA ([facility]) Primary Care Unavaillars e KATIA WATSON Attending Unavailable IM[facility] Referring Unavailable LINZEY, ESTRADA ([facility]) Primary Care Unavailabl e COLKATIA Fong Attending Unavailable IMCA Referring Unavailable LINZEY, ESTRADA ([facility]) Primary Care Unavailabl e LINZEY, ESTRADA ([facility]) Attending Unavailabl e IMCA Referring Unavailable LINZEY, ESTRADA ([facility]) Primary Care Unavailabl e LINZEY, ESTRADA ([facility]) Referring Unavailabl e LINZEY, ESTRADA ([facility]) Primary Care Unavailabl e LINZEY, ESTRADA ([facility]) Attending Unavailabl e IMCA Referring Unavailable LINZEY, ESTRADA ([facility]) Primary Care Unavailabl e LINZEY, ESTRADA ([facility]) Attending Unavailabl e IMCA Referring Unavailable LINZEY, ESTRADA ([facility]) Primary Care Unavailabl e LINZEY, ESTRADA ([facility]) Referring Unavailabl e LINZEY, ESTRADA ([facility]) Primary Care Unavailabl e LINZEY, ESTRADA ([facility]) Primary Care Unavailabl e LINZEY, ESTRADA ([facility]) Primary Care Unavailabl e KYLER NUR Attending Unavailable LINZEY, ESTRADA ([facility]) Referring Unavailabl e LINZEY, ESTRADA ([facility]) Primary Care Unavailabl e LINZEY, ESTRADA ([facility]) Attending Unavailabl e LINZEY, ESTRADA ([facility]) Referring Unavailabl e LINZEY, ESTRADA ([facility]) Primary Care Unavailabl e LINZEY, ESTRADA ([facility]) Referring Unavailabl e LINZEY, ESTRADA ([facility]) Primary Care Unavailabl e LINZEY, ESTRADA ([facility]) Referring Unavailabl e LINZEY, ESTRADA ([facility]) Primary Care Unavailabl e LINZEY, ESTRADA ([facility]) Referring Unavailabl e LINZEY, ESTRADA ([facility]) Primary Care Unavailabl e LINZEY, ESTRADA ([facility]) Attending Unavailabl e IM[facility] Referring Unavailable LINZEY, ESTRADA ([facility]) Primary Care Unavailabl e LINZEY, ESTRADA ([facility]) Referring Unavailabl e LINZEY, ESTRADA ([facility]) Primary Care Unavailabl e Rene SALGADO, Marcello Santos Primary Care Provider Carlos Alberto SALGADO, [facility] Provid er Castro, Marcello Referring Unavailable Castro, Marcello Primary Care Unavailable Davis Coy Attending Unavailable Castro, Marcello Referring Unavailable Luciana Monsivais Attending Unavailable Castro, Marcello Primary Care Unavailable Castro, Marcello Referring Unavailable Castro, Marcello Primary Care Unavailable Josephine Herrera Attending Unavailable Castro, Marcello Primary Care Unavailable PROVIDER, UNKNOWN Referring Unavailable Josephine Herrera Attending Unavailable Castro, Marcello Primary Care Unavailable Castro, Marcello Referring Unavailable Nataliia Arora Attending Unavailable Castro, Marcello Primary Care Unavailable Castro, Marcello Referring Unavailable Nataliia Arora Attending Unavailable Rema SALGADO, [place] Primary Care Provider Carlos Alberto SALGADO, [facility] Provid er Rema SALGADO, [place] Primary Care Provider Carlos Alberto SALGADO, [facility] Provid er CHANEL LABOY Attending Unavailable BARB NURA Primary Care Unavailable BARB LAQUEY Primary Care Unavailable BARB LAQUEY Primary Care Unavailable Radha Phipps MD-Marie Primary Care Provider [phone] Luz SALGADO, Mary Primary Care Provider Luz SALGADO, Mary Attending Provider Luz SALGADO, Mary Referring Provider Trent GILBERT, Dr. Bhakta Emergency Provider Sai GILBERT, Dr. Porter Admit Provider Sai GILBERT, Dr. Porter Attending Provider oJsiah SALGADO, [facility] Primary Care Provider Luz SALGADO, Mary Primary Care Provider Sai GILBERT, Dr. Porter Other Provider Bernie GILBERT, Dr. Ponce Attending Provider Sai GILBERT, Dr. Porter Attending Provider Bernie GIBLERT, Dr. Ponce Other Provider Ashleigh GILBERT, Dr. Morris Attending Provider Usman SALGADO, Dr. Jewell Attending Provider Usman SALGADO, Dr. Jewell Referring Provider Frantz SALGADO, Dr. Prieto Emergency Provider Dr. Ashu Garcia DO Emergency Provider Bernie GILBERT, Dr. Ponce Referring Provider Frantz SALGADO, Dr. Prieto Attending Provider Ashleigh GILBERT, Dr. Morris Other Provider [phone] Luz SALGADO, Mary Primary Care Provider Dr. Yony Newman DO Emergency Provider Sai GILBERT, Dr. Porter Admit Provider Sai GILBERT, Dr. Porter Other Provider Bernie GILBERT, Dr. Ponce Attending Provider Sai GILBERT, Dr. Porter Attending Provider Dr. Kris Gibbs DO Other Provider Dr. Kris Gibbs DO Referring Provider Ashleigh GILBERT, Dr. Morris Attending Provider Usman SALGADO, Dr. Jewell Attending Provider Usman SALGADO, Dr. Jewell Referring Provider Frantz SALGADO, Dr. Prieto Attending Provider Frantz SALGADO, Dr. Prieto Emergency Provider Dr. Ashu Garcia DO Emergency Provider Ashleigh GILBERT, Dr. Morris Other Provider Sai GILBERT, Dr. Porter Referring Provider Luz SALGADO, Mary Referring Provider Bucky GUSSET FOLDER-CDaniella Attending Provider [phone] Nasir SALGADO, Dr. Cannon Admit Provider Nasir SALGADO, Dr. Cannon Attending Provider Nasir SALGADO, Dr. Cannon Other Provider Hasmukh SALGADO, Dr. Ureña Attending Provider Hasmukh SALGADO, Dr. Ureña Other Provider Unavailable Primary Care Provider Unavailabl e Luz SALGADO, Mary Primary Care Physician Luz SALGADO, Mary Referring Provider Ashleigh GILBERT, Dr. Morris Attending Physician [phone] Ashleigh GILBERT, Dr. Morris Nurse Practitioner Vinicio Gaspar MD Emergency Department Physician Carcamo DO, Dr. Crespo Admitting Physician Ignacia vailable Carcamo DO, Dr. Crespo Attending Physician Ignacia vailable Luz, Chalon Primary Care Unavailable Sai, Charlotte Consulting Unavailable Charlotte Gibbs Attending Unavailable Sai Charlotte Admitting Unavailable Charlotte Gibbs Referring Unavailable Arturo Sotelo Consulting Unavailable Luz Challorrie Primary Care Unavailable Arturo Sotelo Attending Unavailable Charlotte Gibbs Admitting Unavailable Sai, Charlotte Consulting Unavailable Luz, Chalon Primary Care Unavailable Mosteller, Kris Attending Unavailable Vida Gibbsyn Consulting Unavailable Sai Charlotte Admitting Unavailable Friend, Arturo Consulting Unavailable Friend, Arturo Attending Unavailable Luz, Chalon Primary Care Unavailable Luz, Chalon Referring Unavailable Charlotte Gibbs Attending Unavailable Mostjacobo, Kris Attending Unavailable Mosteller, Kris Consulting Unavailable Mosteller, Kris Referring Unavailable Friend, Arturo Attending Unavailable Luz, Chalon Primary Care Unavailable Zak Carcamo Admitting Unavailable Hasmukh, Niranjan Consulting Unavailable Hasmukh, Niranjan Attending Unavailable Friend, Arturo Consulting Unavailable Bucky, Daniella Consulting Unavailable SelvinNataliia Consulting Unavailable Rickynasnimesh, Ainsley Consulting Unavailable Zak Carcamo Consulting Unavailable Friend, Arturo Attending Unavailable Hasmukh, Niranjan Referring Unavailable de Zak Harden Attending Unavailable Luz, Chalon Primary Care Unavailable Luz, Chalon Attending Unavailable Luz, Chalon Referring Unavailable Luz, Chalon Primary Care Unavailable Conner Landry Attending Unavailable Luz, Chalon Primary Care Unavailable Luz, Chalon Referring Unavailable Friend, Arturo Attending Unavailable Luz, Chalon Primary Care Unavailable Hasmukh, Niranjan Attending Unavailable Best, Davis Consulting Unavailable Best, Davis Admitting Unavailable Friend, Arturo Consulting Unavailable Bernie, Kris Consulting Unavailable Luz, Chalon Referring Unavailable Luz, Chalon Primary Care Unavailable Daniella Lawler Attending Unavailable Mostjacobo, Kris Attending Unavailable Luz, Chalon Primary Care Unavailable Best, Davis Admitting Unavailable Best, Davis Consulting Unavailable Friend, Arturo Consulting Unavailable Bernie, Kris Consulting Unavailable Luz, Chalon Primary Care Unavailable Best, Davis Consulting Unavailable Best, Davis Attending Unavailable Best, Davis Admitting Unavailable Luz, Chalon Primary Care Unavailable Usman, Best Referring Unavailable Usman, Best Attending Unavailable Hasmukh, Niranjan Attending Unavailable Hasmukh, Niranjan Consulting Unavailable Bernie, Kris Referring Unavailable Friend, Arturo Attending Unavailable Zak Carcamo Admitting Unavailable Hasmukh, Niranjan Attending Unavailable Luz, Chalon Primary Care Unavailable Hasmukh, Niranjan Consulting Unavailable Friend, Arturo Consulting Unavailable Bucky Daniella Consulting Unavailable Selvin, Nataliia Consulting Unavailable Nial, Ainsley Consulting Unavailable Zak Carcamo Consulting Unavailable Charlotte Gibbs Attending Unavailable Luz, Chalon Primary Care Unavailable Friend, Arturo Consulting Unavailable Charlotte Gibbs Admitting Unavailable Luz SALGADO, Mary Primary Care Physician Carcamo DO, Dr. Crespo Nurse Practitioner Sunny Noe MD, Dr. Ureña Attending Physician Hasmukh SALGADO, Dr. Ureña Nurse Practitioner Ashleigh GILBERT, Dr. Morris Nurse Practitioner Bucyk GUSSET FOLDER-C, Daniella Nurse Practitioner Selvin GUSSET FOLDER-C, Nataliia Nurse Practitioner [place] Nurse Practitioner Hasmukh SALGADO, Dr. Ureña Referring Provider Ashleigh GILBERT, Dr. Morris Attending Physician [phone] Allergies Allergy Classification Reported Allergen(s) Allergy Type Date of Onset Reaction(s) Facility (13 sources) beta Sitosterol / ZINC CITRATE Drug Allergy 10-08-2022 Itching [facility] Medications Current Medications Medication Drug Class(es) Dates Sig (Normalized) Sig (Original) amLODIPine 5 mg oral tablet (10 sources) Dihydropyridine Calcium Channel Beka Start: 03-27-2025 take 1 tablet by mouth once daily Start: 2024 End: 03-27-2025 take 1 tablet by mouth once daily Amlodipine 10 mg Tablet Discontinued 10 mg PO DAILY 30 30 2 2024 12:00am March 27, 2025 6:18pm bp Start: 07-28-2021 take 1 tablet by radha th once daily amLODIPine (NORVASC) 10 MG tablet Indications: Primary hypertension Take 1 tablet by mouth nightly 30 tablet 3 07/28/2021 Active amylase 183175 unt / lipase 89765 unt / protease 14867 unt delayed release oral capsule (3 sources) Start: 03-30-2025 take 09660-57145 cap sules by mouth three times daily at mealtime Start: 10-22-2024 End: 03-27-2025 take 54554-73895 capsules by mouth three times daily at mealtime Pqrcno-Xjgskief-Rpkamco (Creon) 24,000-76,000 -120,000 unit Capsule,Delayed Release(Dr/Ec) Discontinued 2 NMA PO 3 TIMES DAILY WITH MEALS 180 30 2 October 22, 2024 12:00am March 27, 2025 6:17pm benzonatate 100 mg oral capsule (5 sources) [...] extended release oral tablet (2 sources) Uncompetitive B-fhwrmh-S-aspartate Receptor Antagonist, Sigma-1 Agonist Start: 04-11-2023 End: 04-21-2023 take 1 tablet by mouth every twelve hours dextromethorphan-guaiFENesin (Mucinex DM) 30-600 MG 12 hr tablet Take 1 tablet by mouth in the morning and 1 tablet in the evening. Do all this for 10 days. Do not crush, chew, or split.. 20 tablet 0 04/11/2023 04/21/2023 Active docusate sodium 100 mg oral capsule (14 sources) Start: 03-07-2018 take 1 capsule by mouth once daily docusate sodium (COLACE) 100 mg capsule Indications: Constipation, unspecified constipation type Take 1 capsule by mouth once daily. 03/07/2018 Active Comment on above: Take 1 capsule by mo [facility] once daily. docusate sodium 50 mg / sennosides, custodial 8.6 mg oral tablet (4 sources) Start: 10-22-2024 Start: 10-22-2024 Start: 07-03-2021 take 2 tablets by mouth once d aily sennosides-docusate sodium (SENOKOT-S) 8.6-50 MG tablet Take 2 tablets by mouth daily 3 tablet 0 07/03/2021 Active FLUoxetine 60 mg oral tablet (9 sources) Serotonin Reuptake Inhibitor Start: 03-27-2025 take 1 tablet by mouth once daily Start: 09-12-2024 End: 03-27-2025 take 1 capsule by mouth once daily Fluoxetine 40 mg capsule Discontinued 40 mg PO DAILY September 12, 2024 12:00am March 27, 2025 6:18pm [facility] hydroCHLOROthiazide 25 mg oral tablet (1 source) Thiazide Diuretic Start: 07-28-2021 End: 08-27-2021 take 1 tablet by mouth once daily hydroCHLOROthiazide (HYDRODIURIL) 25 MG tablet Indications: Primary hypertension Take 1 tablet by mouth daily 30 tablet 0 07/28/2021 08/27/2021 Active ipratropium bromide 0.042 mg/actuat metered dose nasal spray (8 sources) Anticholinergic Start: 09-12-2024 Start: 09-12-2024 levoFLOXacin 500 mg oral tablet (1 source) Quinolone Antimicrobial Start: 03-30-2025 take 1 tablet by mouth once daily oseltamivir 75 mg oral capsule (3 sources) Neuraminidase Inhibitor Start: 05-31-2023 End: 06-05-2023 take 1 capsule by mouth every twelve hours oseltamivir (Tamiflu) 75 MG capsule Take 1 capsule (75 mg) by mouth in the morning and 1 capsule (75 mg) in the evening. Do all this for 5 days. 10 capsule 0 05/31/2023 06/05/2023 Active oxyCODONE hydrochloride 5 mg oral tablet (20 sources) Opioid Agonist Start: 03-30-2025 Start: 10-22-2024 End: 11-26-2024 take 2.5 mg by mouth every six hours as needed for pain Oxycodone 5 mg Tablet Discontinued 2.5 mg PO EVERY 6 HOURS NEEDED as needed for Pain Score 4-10 7 3 0 October 22, 2024 November 26, 2024 9:30am Right sided abdominal pain Pancreatitis Acute recurrent pancreatitis Unspecified abdominal pain Idiopathic acute pancreatitis without necrosis or infection Acute pancreatitis without necrosis or infection, unspecified Start: 2024 End: 11-26-2024 take 2 tablets by mouth every six hours as needed for pain Oxycodone 5 mg Tablet Discontinued 10 mg PO EVERY 6 HOURS NEEDED as needed for Pain Score 4-10 12 3 0 September 29, 2024 October 22, 2024 11:53am Right sided abdominal pain Unspecified abdominal pain Start: 12-24-2022 End: 10-16-2024 take 1 tablet by mouth every six hours as needed for pain Oxycodone 5 mg tablet Discontinued 5 mg PO EVERY 6 HOURS as needed for pain 12 3 0 2024 October 16, 2024 12:44am Acute pancreatitis Acute abdominal pain Acute pancreatitis without necrosis or infection, unspecified Unspecified abdominal pain Comment on above: Take 1 tablet by radha th every 6 hours as needed for pain. polyethylene glycol 3350 90548 mg powder for oral solution (1 source) Osmotic Laxative Start: 2 End: 2 take 17 g by mouth twice daily polyethylene glycol (GLYCOLAX) 17 g packet Take 17 g by mouth 2 times daily 527 g 1 07/02/2021 08/01/2021 Active predniSONE 20 mg oral tablet (3 sources) Start: 3 End: 3 take 2 tablets by mouth once daily predniSONE (Deltasone) 20 MG tablet Take 2 tablets (40 mg) by mouth daily for 5 days. 10 tablet 0 05/31/2023 06/05/2023 Active sertraline 25 mg oral tablet (13 sources) Serotonin Reuptake Inhibitor Start: 4 End: 4 take 1 tablet by mouth once daily sertraline (Zoloft) 25 MG tablet Indications: Anxiety and depression TAKE 1 TABLET BY MOUTH EVERY DAY 90 tablet 1 03/26/2024 Active Start: 11-05-2019 take 1 tablet by radha th once daily sertraline (ZOLOFT) 50 mg tablet TAKE 1 TABLET BY MOUTH EVERY DAY 90 tablet 1 11/05/2019 Active Start: 08-03-2019 take 1 tablet by radha th once daily sertraline (ZOLOFT) 25 mg tablet Take 1 tablet by mouth once daily for 7 days. 7 tablet 0 08/03/2019 Active Comment on above: Take 1 tablet by radha th once daily for 7 days. TAKE 1 TABLET BY RADHA TH EVERY DAY topiramate 25 mg oral tablet (2 sources) Start: 03-27-2025 take 1 tablet by mouth twice daily (1 source) Start: 10-22-2024 Completed/Discontinued Medications Medication Drug Class(es) Dates Sig (Normalized) Sig (Original) acetaminophen 500 mg oral tablet (10 sources) Start: 04-11-2023 End: 04-11-2023 acetaminophen (Tylenol) tablet 1,000 mg Start: 12-24-2022 take 2 tablets by mo [facility] every six hours as needed acetaminophen (TYLENOL EXTRA STRENGTH) 500 mg tablet Take 2 tablets by mouth every 6 hours as needed for pain. 60 tablet 1 12/24/2022 Active Comment on above: Take 2 tablets by mo uth every 6 hours as needed for pain. acetaminophen 325 mg / oxyCODONE hydrochloride 5 mg oral tablet (9 sources) Opioid Agonist Start: 09-09-2023 End: 09-12-2024 Oxycodone-Acetaminophen (Percocet) 5-325 mg tablet Discontinued 1 {tbl} PO Q4H as needed for pain 10 3 0 September 09, 2023 September 12, 2024 7:01am Laceration of left lower extremity Laceration without foreign body, left lower leg, initial encounter Start: 09-09-2023 End: 09-12-2024 amoxicillin 875 mg / clavulanate 125 mg oral tablet (4 sources) Penicillin-class Antibacterial Start: 09-29-2024 End: 10-16-2024 Amoxicillin-Pot Clavulanate 875-125 mg tablet Discontinued 1 {tbl} PO TWICE A DAY 14 0 September 29, 2024 12:00am October 16, 2024 12:44am Start: 09-29-2024 End: 10-16-2024 bisacodyl 10 mg rectal suppository (6 sources) Stimulant Laxative Start: 03-15-2018 bisacodyl (DULCOLAX) 10 mg supp Indications: Constipation, unspecified constipation type 1 Suppository by RECTAL route once daily as needed. 5 Suppository 0 03/15/2018 Active Comment on above: 1 Suppository by REC EUGENIO route once daily as needed. carboxymethylcellulose 0.01 mg/mg ophthalmic gel (11 sources) Start: 10-08-2022 End: 10-24-2023 carboxymethylcellulose (Dry Eye Relief) 1 % ophthalmic solution dropperette Indications: Eye injury, unspecified laterality, initial encounter Apply 2 drops to right eye 2 times daily as needed for dry eyes for up to 5 days. 15 mL 1 10/08/2022 10/24/2023 Discontinued (Therapy completed) cholecalciferol 0.1 mg oral capsule (4 sources) Vitamin D take 1 capsule by mouth once daily cholecalciferol, vitamin D3, 100 mcg (4,000 unit) cap Take 1 capsule by mouth once daily. 0 Active Comment on above: Take 1 capsule by [facility] once daily. doxycycline hyclate 100 mg oral tablet (5 sources) Tetracycline-c lass Drug Start: 09-25-2024 End: 09-29-2024 take 1 tablet by mouth twice daily Doxycycline Hyclate 100 mg tablet Discontinued 100 mg PO TWICE A DAY September 25, 2024 12:00am September 29, 2024 9:52am ergocalciferol 1.25 mg oral capsule (8 sources) Provitamin D2 Compound Start: 09-12-2024 End: 09-12-2024 Ergocalciferol (Vitamin D2) 1,250 mcg (50,000 unit) capsule Discontinued 1250 ug PO EVERY WEEK September 12, 2024 12:00am September 12, 2024 7:02am escitalopram 10 mg oral tablet (20 sources) Serotonin Reuptake Inhibitor Start: 09-21-2022 End: 10-24-2023 take 1 tablet by mouth once daily escitalopram (Lexapro) 10 MG tablet Indications: Anxiety disorder, unspecified TAKE 1 TABLET BY MOUTH EVERY DAY 90 tablet 11 09/21/2022 10/24/2023 Discontinued (Alternate therapy) escitalopram oxa late (LEXAPRO ORAL) Take by mouth. Active escitalopram oxa late (LEXAPRO ORAL) Take by mouth. 0 Active Comment on above: Take by mouth. ferrous gluconate 324 mg oral tablet (6 sources) Start: 10-22-2024 End: 11-26-2024 take 1 tablet by mouth every other day Ferrous Gluconate 324 mg (37.5 mg iron) tablet Discontinued 324 mg PO EVERY OTHER DAY 60 2 October 22, 2024 11:53am November 26, 2024 9:30am iron Start: 10-04-2024 End: 11-26-2024 take 1 tablet by mouth twice daily Ferrous Gluconate 324 mg (37.5 mg iron) tablet Discontinued 324 mg PO TWICE A DAY 60 2 October 04, 2024 12:00am October 22, 2024 11:53am iron ibuprofen 600 mg oral tablet (11 sources) Nonsteroidal Anti-inflammatory Drug Start: 11-17-2021 End: 10-24-2023 take 1 tablet by mouth four times daily ibuprofen 600 MG tablet TAKE 1 TABLET BY MOUTH 4 TIMES A DAY UNTIL GONE 0 11/17/2021 10/24/2023 Discontinued (Therapy completed) levonorgestrel 0.592470 mg/hr intrauterine system (11 sources) Progestin, Progestin-containing Intrauterine Device End: 10-24-2023 levonorgestrel (Mirena, 52 MG,) 20 MCG/DAY IUD 1 each by IntraUTERine route Once. 0 10/24/2023 Discontinued (Therapy completed) lisinopril 5 mg oral tablet (15 sources) Angiotensin Converting Enzyme Inhibitor Start: 09-12-2024 End: 2024 take 1 tablet by mouth once daily Lisinopril 5 mg tablet Discontinued 5 mg PO DAILY September 12, 2024 12:00am 2024 12:31pm Start: 10-24-2023 End: 09-22-2024 take 1 tablet by mouth once daily lisinopril 10 MG tablet Indications: Primary hypertension TAKE 1 TABLET (10 MG) BY MOUTH DAILY. 90 tablet 1 03/26/2024 09/22/2024 Active Start: 07-28-2021 End: 08-27-2021 take 1 tablet by mouth once daily lisinopril (PRINIVIL;ZESTRIL) 20 MG tablet Indications: Primary hypertension Take 1 tablet by mouth daily 30 tablet 0 07/28/2021 08/27/2021 Active losartan potassium 100 mg oral tablet (7 sources) Angiotensin 2 Receptor Beka Start: 2024 End: 03-27-2025 take 1 tablet by mouth once daily Losartan 100 mg Tablet Discontinued 100 mg PO DAILY 30 30 2 2024 12:00am March 27, 2025 6:18pm bp naproxen 500 mg oral tablet (2 sources) Nonsteroidal Anti-inflammatory Drug Start: 05-31-2023 End: 05-31-2023 naproxen (Naprosyn) tablet 500 mg ondansetron 4 mg disintegrating oral tablet (20 sources) Serotonin-3 Receptor Antagonist Start: 10-16-2024 End: 03-27-2025 take 1 tablet by mouth three times daily as needed for nausea and vomiting Ondansetron 4 mg tablet,disintegra ting Discontinued 4 mg PO 3 TIMES DAILY NEEDED as needed for nausea and vomiting 30 0 October 22, 2024 11:53am March 27, 2025 6:18pm Start: 2024 End: 09-25-2024 take 1 tablet by mouth every six hours as needed for nausea and vomiting Ondansetron 4 mg tablet,disintegrating Discontinued 4 mg PO EVERY 6 HOURS as needed for nausea and vomiting 12 3 0 2024 12:00am September 25, 2024 4:11am Start: 07-02-2021 take 1 tablet by radha th three times daily as needed for nausea [...] tablet by radha th every 6 hours. oxymetazoline hydrochloride 0.5 mg/ml nasal spray (2 sources) Start: 2022 End: 2022 oxymetazoline (Afrin) 0.05 % nasal spray 2 spray pantoprazole 40 mg delayed release oral tablet (3 sources) Proton Pump Inhibitor Start: 2024 End: 2024 take 1 tablet by mouth once daily Pantoprazole 40 mg tablet,delayed release (DR/EC) Discontinued 40 mg PO DAILY 30 2 October 04, 2024 12:00am March 27, 2025 6:18pm gerd phentermine hydrochloride 37.5 mg oral tablet (3 sources) Sympathomimetic Amine Anorectic Start: 2024 End: 2024 take 1 tablet by mouth once daily Phentermine 37.5 mg tablet Discontinued 37.5 mg PO DAILY October 16, 2024 12:00am October 22, 2024 11:51am diet prochlorperazine 5 mg oral tablet (5 sources) Phenothiazine Start: 2024 End: 2024 take 1 tablet by mouth twice daily as needed for nausea and vomiting Prochlorperazine Maleate (Compazine) 5 mg tablet Discontinued 5 mg PO TWICE A DAY as needed for nausea and vomiting September 25, 2024 12:00am October 22, 2024 11:52am terbinafine hydrochloride 10 mg/ml topical spray (6 sources) Allylamine Antifungal Start: 2017 Terbinafine (LAMISIL, AEROSOL,) 1 % spra Indications: Onychomycosis Apply 1 application to affected area twice daily. 0 08/30/2017 Active Comment on above: Apply 1 application to affected area twice daily. Problems Active Problems Problem Classification Problem Date Documented Da te Episodic/Chronic Abdominal pain (20 sources) Lower abdominal pain, unspecified; Translations: [Pain in pelvis] Onset: 03-06-2018 Episodic Administrative/social admission (1 source) Counseling procedure with explicit context; Translations: [HPV vaccine counseling] 01-06-2023 Episodic Anxiety disorders (20 sources) Anxiety; Translations: [Anxiety disorder, unspecified] Onset: 07-05-2016 07-05-2016 Chronic Biliary tract disease (7 sources) Common bile duct calculus; Translations: [Calculus of bile duct without cholangitis or cholecystitis without obstruction] Onset: 04-12-2025 11-29-2024 Episodic Contraceptive and procreative management (20 sources) Patient encounter status; Translations: [Encounter for initial prescription of other contraceptives] Onset: 09-09-2017 09-09-2017 Episodic Diseases of white blood cells (20 sources) Elevated white blood cell count, unspecified; Translations: [Leukocytosis] Onset: 06-28-2021 Chronic Essential hypertension (20 sources) Essential hypertension; Translations: [Essential (primary) hypertension] Onset: 07-04-2021 07-04-2021 Chronic External Injury - Cut / Gr (2 sources) Other foreign body or object entering through skin, initial encounter; Translations: [Oth foreign body or object entering through skin, init] Onset: 01-23-2018 Menstrual disorders (20 sources) Break-through bleeding; Translations: [Excessive and frequent menstruation with irregular cycle] Onset: 09-09-2017 Chronic Mood disorders (14 sources) Recurrent major depressive episodes, moderate ; Translations: [Major depressive disorder, recurrent, moderate] Onset: 07-05-2016 07-05-2016 Chronic Mood disorders (4 sources) Mood disorders; Translations: [Depression, unspecified] Onset: 03-05-2022 Nausea and vomiting (7 sources) Nausea; Translations: [Nausea] Onset: 04-12-2025 03-27-2025 Episodic Nonspecific chest pain (16 sources) Chest pain, unspecified; Translations: [Chest pain] Onset: 07-21-2021 Episodic Nutritional deficiencies (14 sources) Vitamin D deficiency; Translations: [Vitamin D deficiency, unspecified] Onset: 07-05-2016 07-05-2016 Chronic Open wounds of extremities (11 sources) Laceration without foreign body, left foot, initial encounter; Translations: [Laceration of lower limb] Onset: 01-23-2018 09-09-2023 Episodic Other gastrointestinal disorders (4 sources) Heartburn; Translations: [Heartburn] 10-04-2024 Episodic Other injuries and conditions due to external causes (2 sources) Injury of eye region; Translations: [Unspecified injury of unspecified eye and orbit, initial encounter] Episodic Other liver diseases (14 sources) Steatosis of liver; Translations: [Fatty (change of) liver, not elsewhere classified] Onset: 03-07-2018 03-07-2018 Chronic Other lower respiratory disease (2 sources) Cough; Translations: [Acute cough] 05-31-2023 Episodic Other nutritional; endocrine; and metabolic disorders (3 sources) Obesity, unspecified; Translations: [Obesity, unspecified] Onset: 06-28-2021 Chronic Other nutritional; endocrine; and metabolic disorders (2 sources) Body mass index (BMI) 34.0-34.9, adult; Translations: [Body mass index [BMI] 34.0-34.9, adult] Onset: 06-28-2021 Chronic Other nutritional; endocrine; and metabolic disorders (3 sources) Body mass index 30+ - obesity; Translations: [Obesity, unspecified] 03-27-2025 Chronic Other screening for suspected conditions (not mental disorders or infectious disease) (5 sources) Cancer cervix screening status; Translations: [Encounter for screening for malignant neoplasm of cervix] Episodic Pancreatic disorders (not diabetes) (20 sources) Pancreatitis; Translations: [Acute pancreatitis without necrosis or infection, unspecified] Onset: 06-28-2021 Resolved: 10-24-2023 07-02-2021 Episodic Residual codes; unclassified (8 sources) Past history of procedure; Translations: [Other specified postprocedural states] 09-24-2024 Episodic Residual codes; unclassified (8 sources) Pain; Translations: [Pain, unspecified] 09-25-2024 Episodic Substance-related disorders (2 sources) Nicotine dependence, unspecified, uncomplicated; Translations: [Nicotine dependence, unspecified, uncomplicated] Onset: 03-06-2018 Chronic Unclassified (2 sources) Acquired absence of other specified parts of digestive tract; Translations: [Acquired absence of other specified parts of digestive tract] Onset: 03-06-2018 Episodic Unclassified (1 source) Cough, unspecified; Translations: [Cough, unspecified] Onset: 08-11-2021 Unclassified (1 source) Contact with and (suspected) exposure to COVID-19; Translations: [Contact with and (suspected) exposure to COVID-19] Onset: 06-28-2021 Unclassified (1 source) Acute cough; Translations: [Acute cough] Onset: 05-31-2023 Unclassified (1 source) To arrange EUS for pancreatitis outside Urinary tract infections (2 sources) Acute pyelonephritis; Translations: [Acute pyelonephritis] Onset: 03-06-2018 Episodic Viral infection (3 sources) Disease caused by 2019-nCoV; Translations: [COVID-19] Onset: 06-29-2021 Resolved: 07-02-2021 07-02-2021 Episodic Viral infection (2 sources) COVID-19; Translations: [COVID-19] Onset: 04-11-2023 Past or Other Problems Problem Classification Problem Date Documented Da te Episodic/Chronic Abdominal hernia (14 sources) Hernia of anterior abdominal wall; Translations: [Ventral hernia without obstruction or gangrene] Onset: 8 03-07-2018 Episodic Cancer of cervix (20 sources) Low grade squamous intraepithelial lesion on cervical Papanicolaou smear; Translations: [Low grade squamous intraepithelial lesion on cytologic smear of cervix (LGSIL)] Onset: 8 09-27-2017 Episodic Digestive congenital anomalies (4 sources) Disorder of pancreas; 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] Onset: 8 Resolved: 8 03-30-2018 Chronic Fluid and electrolyte disorders (4 sources) Hypo-osmolality and hyponatremia; Translations: [Dehydration] Onset: 2 Episodic Immunizations and screening for infectious disease (4 sources) Encounter for screening for human immunodeficiency virus [HIV]; Translations: [Encounter for screening for other viral diseases] Onset: 4 Episodic Influenza (4 sources) Influenza due to Influenza A virus; Translations: [Influenza due to other identified influenza virus with other respiratory manifestations] Onset: 3 05-31-2023 Episodic Mycoses (14 sources) Onychomycosis; Translations: [Tinea unguium] Onset: 8 08-30-2017 Episodic Other aftercare (2 sources) Other shelter (current) drug therapy; Translations: [Other director long term care (current) drug therapy] Onset: 2 Episodic Other circulatory disease (14 sources) Elevated blood-pressure reading without diagnosis of hypertension; Translations: [Elevated blood-pressure reading, without diagnosis of hypertension] Onset: 8 03-08-2018 Episodic Other circulatory disease (2 sources) Nevus, non-neoplastic; Translations: [Nevus, non-neoplastic] Onset: 2 Episodic Other gastrointestinal disorders (20 sources) Splenomegaly; Translations: [Splenomegaly, not elsewhere classified] Onset: 8 07-04-2021 Episodic Other gastrointestinal disorders (1 source) Splenomegaly, not elsewhere classified; Translations: [Splenomegaly, not elsewhere classified] Onset: 2 Episodic Other gastrointestinal disorders (2 sources) Constipation, unspecified; Translations: [Constipation, unspecified] Onset: 2 Episodic Other gastrointestinal disorders (1 source) Encounter for fitting and adjustment of other gastrointestinal appliance and device; Translations: [Encounter for fitting and adjustment of other gastrointestinal appliance and device] Onset: 5 Episodic Other gastrointestinal disorders (1 source) Heartburn; Translations: [Heartburn] Onset: 5 Episodic Other lower respiratory disease (2 sources) Pleurodynia; Translations: [Pleurodynia] Onset: 2 Episodic Ovarian cyst (14 sources) Cyst of right ovary; Translations: [Unspecified ovarian cyst, right side] Onset: 8 03-15-2018 Episodic Residual codes; unclassified (6 sources) History of loop electrosurgical excision procedure; Translations: [Other specified postprocedural states] Onset: 3 01-24-2023 Episodic Residual codes; unclassified (4 sources) Tobacco user; Translations: [Tobacco use] Onset: 7 Resolved: 8 03-15-2018 Episodic Residual codes; unclassified (1 source) Pain, unspecified; Translations: [Pain, unspecified] Onset: 5 Episodic Screening and history of mental health and substance abuse codes (10 sources) Personal history of nicotine dependence; Translations: [Ex-smoker] Onset: 2 Episodic Sprains and strains (4 sources) Strain of thoracic region; Translations: [Strain of muscle and tendon of back wall of thorax, initial encounter] Onset: 3 05-31-2023 Episodic Unclassified (1 source) Other congenital malformations of pancreas and pancreatic duct Onset: 8 Unclassified (1 source) Cough, unspecified; Translations: [Cough, unspecified] Onset: 2 Unclassified (1 source) Contact with and (suspected) exposure to COVID-19; Translations: [Contact with and (suspected) exposure to COVID-19] Onset: 2 Unclassified (1 source) Acute cough; Translations: [Acute cough] Onset: 3 Results Test Name Value Interpretation Reference Range Facility Liver Profileon 04-01-2025 ALB Normal 3.5-5.0 [facility] Comment on above: Result Comment: Canc elled via OM: Order cancelled - Patient discharged Performed By: #### L 500.1708 ####[facility] [address] [place], [address] ALK PHOS Normal 35-104 [facility] Comment on above: Result Comment: Canc elled via OM: Order cancelled - Patient discharged Performed By: #### L 500.3400 ####[facility] [address] [place], [address] ALT Normal <=34 [facility] Comment on above: Result Comment: Canc elled via OM: Order cancelled - Patient discharged Performed By: #### L 500.3400 ####[facility] [address] [place], [address] AST Normal <=31 [facility] Comment on above: Result Comment: Canc elled via OM: Order cancelled - Patient discharged Performed By: #### L 500.3400 ####[facility] [address] [place], [address] D BILI Normal 0.00-0.30 [facility] Comment on above: Result Comment: Canc elled via OM: Order cancelled - Patient discharged Performed By: #### L 500.3400 ####[facility] [address] [place], [address] T BILI Normal 0.00-1.30 [facility] Comment on above: Result Comment: Canc elled via OM: Order cancelled - Patient discharged Performed By: #### L 500.3400 ####[facility] [address] [place], [address] T PROT Normal 5.9-8.4 [facility] Comment on above: Result Comment: Canc elled via OM: Order cancelled - Patient discharged Performed By: #### L 500.3400 ####[facility] [address] [place], [address] CBC W/Diff, Automatedon 10- Absolute Neut Normal 2.0-7.7 [facility] Comment on above: Result Comment: Canc elled via OM: Order cancelled - Patient discharged Performed By: #### L 100.0100, L500.3400 ####[facility] [address] [place], [address] HCT Normal 37-47 [facility] Comment on above: Result Comment: Canc elled via OM: Order cancelled - Patient discharged Performed By: #### L 100.0100, L500.3400 ####[facility] [address] [place], [address] HGB Normal 12.0-15.0 [facility] Comment on above: Result Comment: Canc elled via OM: Order cancelled - Patient discharged Performed By: #### L 100.0100, L500.3400 ####[facility] [address], [address] MCH Normal 27.0-32.0 [facility] Comment on above: Result Comment: Canc elled via OM: Order cancelled - Patient discharged Performed By: #### L 100.0100, L500.3400 ####[facility] [address] [place], [address] MCHC Normal 32-36 [facility] Comment on above: Result Comment: Canc elled via OM: Order cancelled - Patient discharged Performed By: #### L 100.0100, L500.3400 ####[facility] [address] [place], [address] MCV Normal 81-99 [facility] Comment on above: Result Comment: Canc elled via OM: Order cancelled - Patient discharged Performed By: #### L 100.0100, L500.3400 ####[facility] [address] [place], [address] NEUT% Normal 47-70 [facility] Comment on above: Result Comment: Canc elled via OM: Order cancelled - Patient discharged Performed By: #### L 100.0100, L500.3400 ####[facility] [address] [place], [address] PLT Normal 150-450 [facility] Comment on above: Result Comment: Canc elled via OM: Order cancelled - Patient discharged Performed By: #### L 100.0100, L500.3400 ####[facility] [address] [place], [address] RBC Normal 4.2-5.4 [facility] Comment on above: Result Comment: Canc elled via OM: Order cancelled - Patient discharged Performed By: #### L 100.0100, L500.3400 ####[facility] [address] [place], [address] RDW CV Normal 11.6-14.6 [facility] Comment on above: Result Comment: Canc elled via OM: Order cancelled - Patient discharged Performed By: #### L 100.0100, L500.3400 ####[facility] [address] [place], [address] RDW SD Normal 35.1-43.9 [facility] Comment on above: Result Comment: Canc elled via OM: Order cancelled - Patient discharged Performed By: #### L 100.0100, L500.3400 ####[facility] [address] [place], [address] WBC Normal 4.4-11.0 [facility] Comment on above: Result Comment: Canc elled via OM: Order cancelled - Patient discharged Performed By: #### L 100.0100, L500.3400 ####[facility] [address] [place], [address] Liver Profileon 03-31-2025 ALB Normal 3.5-5.0 [facility] Comment on above: Result Comment: Canc elled via OM: Order cancelled - Patient discharged Performed By: #### L 100.0100, L500.3400 ####[facility] [address] [place], [address] ALK PHOS Normal 35-104 [facility] Comment on above: Result Comment: Canc elled via OM: Order cancelled - Patient discharged Performed By: #### L 100.0100, L500.3400 ####[facility] [address] [place], [address] ALT Normal <=34 [facility] Comment on above: Result Comment: Canc elled via OM: Order cancelled - Patient discharged Performed By: #### L 100.0100, L500.3400 ####[facility] [address], [address] AST Normal <=31 [facility] Comment on above: Result Comment: Canc elled via OM: Order cancelled - Patient discharged Performed By: #### L 100.0100, L500.3400 ####[facility] [address] [place], [address] D BILI Normal 0.00-0.30 [facility] Comment on above: Result Comment: Canc elled via OM: Order cancelled - Patient discharged Performed By: #### L 100.0100, L500.3400 ####[facility] [address], [address] T BILI Normal 0.00-1.30 [facility] Comment on above: Result Comment: Canc elled via OM: Order cancelled - Patient discharged Performed By: #### L 100.0100, L500.3400 ####[facility] [address] [place], [address] T PROT Normal 5.9-8.4 [facility] Comment on above: Result Comment: Canc elled via OM: Order cancelled - Patient discharged Performed By: #### L 100.0100, L500.3400 ####[facility] [address] [place], [address] Absolute lymphocyte countOrd ered By: Niranjan Noe on 03-30-2025 Lymphocytes Auto (Unsp spec) [#/Vol] 1.75 10*3/uL 0.83-4.51 [facility] Absolute neutrophil countOrd ered By: Niranjan Noe on 03-30-2025 Neutrophils (Bld) [#/Vol] 7.0 10*3/uL 2.0-7.7 [facility] Anion gap in Serum or Plasma Ordered By: Niranjan Noe on 03-30-2025 Anion gap [Moles/Vol] 8 mmol/L 11-01 [facility] Automated lymphocyte count a s percentage of total leukocytesOrdered By: Niranjan Noe on 03-30-2025 Lymphocytes/100 WBC Auto (Unsp spec) 18.6 % Low - [facility] BUN/creatinine ratioOrdered By: Niranjan Noe on 03-30-2025 Urea nitrogen/Creatinine [Mass ratio] 15.9 mg/mg 04-08 [facility] Basic Metabolic Profile (BMP )on 03-30-2025 BUN/CRE 15.9 RATIO Normal 04-08 [facility] Comment on above: Performed By: #### L 500.2500, L500.3400, L100.0100 ####[facility] [address] [place], [address] Calcium [Mass/Vol] 9.5 mg/dL Normal 7.6-11.0 [facility] Comment on above: Performed By: #### L 500.2500, L500.3400, L100.0100 ####[facility] [address] [place], [address] Chloride [Moles/Vol] 101 mmol/L Normal 98-108 [facility] Comment on above: Performed By: #### L 500.2500, L500.3400, L100.0100 ####[facility] [address] [place], [address] CO2 [Moles/Vol] 28.7 mmol/L Normal 21.0-32.0 [facility] Comment on above: Performed By: #### L 500.2500, L500.3400, L100.0100 ####[facility] [address] [place], [address] Creatinine [Mass/Vol] 0.37 mg/dL Low 0.70-1.20 [facility] Comment on above: Performed By: #### L 500.2500, L500.3400, L100.0100 ####[facility] [address] [place], [address] ECRCL 228.20 ml/min Normal 50-250 [facility] Comment on above: Performed By: #### L 500.2500, L500.3400, L100.0100 ####[facility] [address] [place], [address] GAP 8 Normal 5-15 [facility] Comment on above: Performed By: #### L 500.2500, L500.3400, L100.0100 ####[facility] [address] [place], [address] GFR/1.73 sq M.predicted among non-blacks MDRD (S/P/Bld) [Vol rate/Area] 127 mL/min/{1.73_m2} Normal >60 [facility] Comment on above: Result Comment: mL/m in/1.73m2 CKD-EPI Creatinine Equation (2020) Performed By: #### L 500.2500, L500.3400, L100.0100 ####[facility] [address] [place], [address] Glucose [Mass/Vol] 108 mg/dL High 70-99 [facility] Comment on above: Performed By: #### L 500.2500, L500.3400, L100.0100 ####[facility] [address] [place], [address] Potassium [Moles/Vol] 3.8 mmol/L Normal 3.3-5.1 [facility] Comment on above: Performed By: #### L 500.2500, L500.3400, L100.0100 ####[facility] [address] [place], [address] Sodium [Moles/Vol] 138 mmol/L Normal 133-145 [facility] Comment on above: Performed By: #### L 500.2500, L500.3400, L100.0100 ####[facility] [address] [place], [address] Urea nitrogen [Mass/Vol] 6 mg/dL Normal 4-19 [facility] Comment on above: Performed By: #### L 500.2500, L500.3400, L100.0100 ####[facility] [address] [place], [address] Basophil percentageOrdered B y: Niranjan Noe on 03-30-2025 Basophils/100 WBC (Bld) 0.3 % 0-1 [facility] Bilirubin directOrdered By: Niranjan Noe on 03-30-2025 Bilirubin.direct [Mass/Vol] 0.20 mg/dL 0.00-0.30 [facility] Bilirubin, totalOrdered By: Niranjan Neo on 03-30-2025 Bilirubin [Mass/Vol] 0.42 mg/dL 0.00-1.30 [facility] CBC W/Diff, Automatedon 03-20 Absolute Lymph 1.75 X10 3/uL Normal 0.83-4.51 [facility] Comment on above: Performed By: #### L 500.2500, L500.3400, L100.0100 ####[facility] [address] [place], [address] Absolute Neut 7.0 X10 3/uL Normal 2.0-7.7 [facility] Comment on above: Performed By: #### L 500.2500, L500.3400, L100.0100 ####[facility] [address] [place], [address] Basophils/100 WBC (Bld) 0.3 % Normal 0-1 [facility] Comment on above: Performed By: #### L 500.2500, L500.3400, L100.0100 ####[facility] [address] [place], [address] Eosinophils/100 WBC (Bld) 1.7 % Normal 0-5 [facility] Comment on above: Performed By: #### L 500.2500, L500.3400, L100.0100 ####[facility] [address] [place], [address] Erythrocyte distribution width (RBC) [Ratio] 13.6 % Normal 11.6-14.6 [facility] Comment on above: Performed By: #### L 500.2500, L500.3400, L100.0100 ####[facility] [address] [place], [address] Hematocrit (Bld) [Volume fraction] 31.9 % Low 37-47 [facility] Comment on above: Performed By: #### L 500.2500, L500.3400, L100.0100 ####[facility] [address] [place], [address] Hemoglobin (Bld) [Mass/Vol] 10.2 g/dL Low 12.0-15.0 [facility] Comment on above: Performed By: #### L 500.2500, L500.3400, L100.0100 ####[facility] [address] [place], [address] IG% 0.300 Normal 0.0-0.9 [facility] Comment on above: Result Comment: IG% - Immature Granulocytes (promyelocytes, myelocytes andmetamyelocytes) > 1% indicates that a LEFT SHIFT is Present. Performed By: #### L 500.2500, L500.3400, L100.0100 ####[facility] [address] [place], [address] Lymphocytes/100 WBC (Bld) 18.6 % Low 19-41 [facility] Comment on above: Performed By: #### L 500.2500, L500.3400, L100.0100 ####[facility] [address] [place], [address] MCH (RBC) [Entitic mass] 26.8 pg Low 27.0-32.0 [facility] Comment on above: Performed By: #### L 500.2500, L500.3400, L100.0100 ####[facility] [address] [place], [address] MCHC (RBC) [Mass/Vol] 32.0 g/dL Normal 32-36 [facility] Comment on above: Performed By: #### L 500.2500, L500.3400, L100.0100 ####[facility] [address] [place], [address] MCV (RBC) [Entitic vol] 83.7 fL Normal 81-99 [facility] Comment on above: Performed By: #### L 500.2500, L500.3400, L100.0100 ####[facility] [address] [place], [address] Monocytes/100 WBC (Bld) 5.0 % Normal 0-10 [facility] Comment on above: Performed By: #### L 500.2500, L500.3400, L100.0100 ####[facility] [address] [place], [address] Neutrophils/100 WBC (Bld) 74.1 % High 47-70 [facility] Comment on above: Performed By: #### L 500.2500, L500.3400, L100.0100 ####[facility] [address] [place], [address] Nucleated RBC (Bld) [#/Vol] 0 10*3/uL Normal 0-5 [facility] Comment on above: Performed By: #### L 500.2500, L500.3400, L100.0100 ####[facility] [address] [place], [address] Platelet mean volume (Bld) [Entitic vol] 10.6 fL Normal 6.2-12.0 [facility] Comment on above: Performed By: #### L 500.2500, L500.3400, L100.0100 ####[facility] [address] [place], [address] Platelets (Bld) [#/Vol] 257 10*3/uL Normal 150-450 [facility] Comment on above: Performed By: #### L 500.2500, L500.3400, L100.0100 ####[facility] [address] [place], [address] RBC (Bld) [#/Vol] 3.81 10*6/uL Low 4.2-5.4 [facility] Comment on above: Performed By: #### L 500.2500, L500.3400, L100.0100 ####[facility] [address] [place], [address] RDW SD 41.6 fl Normal 35.1-43.9 [facility] Comment on above: Performed By: #### L 500.2500, L500.3400, L100.0100 ####[facility] [address] [place], [address] WBC (Bld) [#/Vol] 9.4 10*3/uL Normal 4.4-11.0 [facility] Comment on above: Performed By: #### L 500.2500, L500.3400, L100.0100 ####[facility] [address] [place], [address] Carbon dioxide, total [Moles /volume] in Central venous bloodOrdered By: Niranjan Noe on 03-30-2025 CO2 [Moles/Vol] 28.7 mmol/L 21.0-32.0 [facility] Chloride assayOrdered By: Candelaria Noe on 03-30-2025 Chloride [Moles/Vol] 101 mmol/L 98-108 [facility] Discharge Instructionon 03-20 Discharge Instruction Normal [facility] Eosinophil percentageOrdered By: Niranjan Noe on 03-30-2025 Eosinophils/100 WBC (Bld) 1.7 % 0-5 [facility] Erythrocyte distribution wid th ratioOrdered By: Niranjan Noe on 03-30-2025 Erythrocyte distribution width (RBC) [Ratio] 13.6 % 11.6-14.6 [facility] Erythrocyte distribution wid th standard deviationOrdered By: Niranjan Noe on 03-30-2025 Erythrocyte distribution width (RBC) [Ratio] 41.6 fl 35.1-43.9 [facility] Glomerular filtration rate ( GFR) estimation/1.73 sq m using serum, plasma, or whole bOrdered By: Niranjan Noe on 03-30-2025 GFR/1.73 sq M.predicted among non-blacks MDRD (S/P/Bld) [Vol rate/Area] 127 mL/min/{1.73_m2} >60 [facility] Comment on above: mL/min/1.73m2 CKD-EP I Creatinine Equation (2020) Hematocrit Auto (Bld) [Volum e fraction]Ordered By: Niranjan Noe on 03-30-2025 Hematocrit (Bld) [Volume fraction] 31.9 % Low 37-47 [facility] Hemoglobin measurementOrdere d By: Niranjan Noe on 03-30-2025 Hemoglobin (Bld) [Mass/Vol] 10.2 g/dL Low 12.0-15.0 [facility] Immature granulocytes/100 WB C Auto (Bld)Ordered By: Niranjan Noe on 03-30-2025 Immature granulocytes/100 WBC (Bld) 0.300 % 0.0-0.9 [facility] Comment on above: IG% - Immature Granu locytes (promyelocytes, myelocytes and metamyelocytes) > 1% indicates that a LEFT SHIFT is Present. Laboratory - Chemistry and C hemistry - challengeOrdered By: Niranjan Noe on 03-30-2025 AST [Catalytic activity/Vol] 17 U/L <32 [facility] Liver Profileon 03-30-2025 Albumin [Mass/Vol] 3.6 g/dL Normal 3.5-5.0 [facility] Comment on above: Performed By: #### L 500.2500, L500.3400, L100.0100 ####[facility] [address] [place], [address] ALK PHOS 88 U/L Normal 35-104 [facility] Comment on above: Performed By: #### L 500.2500, L500.3400, L100.0100 ####[facility] [address] [place], [address] ALT [Catalytic activity/Vol] 16 U/L Normal <=34 [facility] Comment on above: Performed By: #### L 500.2500, L500.3400, L100.0100 ####[facility] [address] [place], [address] AST [Catalytic activity/Vol] 17 U/L Normal <=31 [facility] Comment on above: Performed By: #### L 500.2500, L500.3400, L100.0100 ####[facility] [address] [place], [address] Bilirubin [Mass/Vol] 0.42 mg/dL Normal 0.00-1.30 [facility] Comment on above: Performed By: #### L 500.2500, L500.3400, L100.0100 ####[facility] [address] [place], [address] Bilirubin.direct [Mass/Vol] 0.20 mg/dL Normal 0.00-0.30 [facility] Comment on above: Performed By: #### L 500.2500, L500.3400, L100.0100 ####[facility] [address] [place], [address] Globulin (S) [Mass/Vol] 2.7 g/dL Normal 2.2-4.2 [facility] Comment on above: Performed By: #### L 500.2500, L500.3400, L100.0100 ####[facility] [address] [place], [address] T PROT 6.3 g/dL Normal 5.9-8.4 [facility] Comment on above: Performed By: #### L 500.2500, L500.3400, L100.0100 ####[facility] [address] [place], [address] MCV (mean corpuscular volume ) determinationOrdered By: Niranjan Noe on 03-30-2025 MCV (RBC) [Entitic vol] 83.7 fL 81-99 [facility] Mean corpuscular hemoglobin (MCH) determinationOrdered By: Niranjan Noe on 03-30-2025 MCH (RBC) [Entitic mass] 26.8 pg Low 27.0-32.0 [facility] Mean corpuscular hemoglobin concentration (MCHC) determinationOrdered By: Niranjan Noe on 03-30-2025 MCHC (RBC) [Mass/Vol] 32.0 g/dL 32-36 [facility] Mean platelet volume determi nationOrdered By: Niranjan Noe on 03-30-2025 Platelet mean volume (Bld) [Entitic vol] 10.6 fL 6.2-12.0 [facility] Monocyte percentageOrdered B y: Niranjan Noe on 03-30-2025 Monocytes/100 WBC (Bld) 5.0 % 0-10 [facility] Neutrophil percentageOrdered By: Niranjan Noe on 03-30-2025 Neutrophils/100 WBC (Bld) 74.1 % High 47-70 [facility] Nucleated red blood cell per centageOrdered By: Nirnajan Noe on 03-30-2025 Nucleated RBC/100 WBC (Bld) [Ratio] 0 % 0-5 [facility] Platelet countOrdered By: Candelaria Noe on 03-30-2025 Platelets (Bld) [#/Vol] 257 10*3/uL 150-450 [facility] Potassium measurement (mass/ volume)Ordered By: Niranjan Noe on 03-30-2025 Potassium (Unsp spec) [Mass/Vol] 3.8 mmol/L 3.3-5.1 [facility] RBC Auto (Bld) [#/Vol]Ordere d By: Niranjan Noe on 03-30-2025 RBC (Bld) [#/Vol] 3.81 10*6/uL Low 4.2-5.4 [facility] Serum creatinine measurement (mass/volume)Ordered By: Niranjan Noe on 03-30-2025 Creatinine [Mass/Vol] 0.37 mg/dL Low 0.70-1.20 [facility] Serum globulin measurementOr dered By: Niranjan Noe on 03-30-2025 Globulin (S) [Mass/Vol] 2.7 g/dL 2.2-4.2 [facility] Serum glucose measurement (m ass/volume)Ordered By: Niranjan Noe on 03-30-2025 Glucose [Mass/Vol] 108 mg/dL High 70-99 [facility] Serum or plasma alanine barton otransferase (ALT) measurementOrdered By: Niranjan Noe on 03-30-2025 ALT [Catalytic activity/Vol] 16 U/L <35 [facility] Serum or plasma albumin chris urement (mass/volume)Ordered By: Niranjan Noe on 03-30-2025 Albumin [Mass/Vol] 3.6 g/dL 3.5-5.0 [facility] Serum or plasma alkaline saeed sphatase measurementOrdered By: Niranjan Noe on 03-30-2025 ALP [Catalytic activity/Vol] 88 U/L 35-104 [facility] Serum or plasma calcium chris urement (mass/volume)Ordered By: Niranjan Noe on 03-30-2025 Calcium [Mass/Vol] 9.5 mg/dL 7.6-11.0 [facility] Serum or plasma urea nitroge n measurement (mass/volume)Ordered By: Niranjan Noe on 03-30-2025 Urea nitrogen [Mass/Vol] 6 mg/dL 4-19 [facility] Sodium levelOrdered By: Aleejada donovan Hasmukh on 03-30-2025 Sodium [Moles/Vol] 138 mmol/L 133-145 [facility] Total proteinOrdered By: Alee adama Hasmukh on 03-30-2025 Protein [Mass/Vol] 6.3 g/dL 5.9-8.4 [facility] White blood cell (WBC) count Ordered By: Niranjan Noe on 03-30-2025 WBC (Bld) [#/Vol] 9.4 10*3/uL 4.4-11.0 [facility] Basic Metabolic Profile (BMP )on 03-29-2025 BUN/CRE 18.8 RATIO Normal 10-20 [facility] Comment on above: Performed By: #### L 500.2500, L100.0100, L500.3400, L501.6710 ####[facility] [address] [place], [address] Calcium [Mass/Vol] 9.3 mg/dL Normal 7.6-11.0 [facility] Comment on above: Performed By: #### L 500.2500, L100.0100, L500.3400, L501.6710 ####[facility] [address] [place], [address] Chloride [Moles/Vol] 101 mmol/L Normal 98-108 [facility] Comment on above: Performed By: #### L 500.2500, L100.0100, L500.3400, L501.6710 ####[facility] [address] [place], [address] CO2 [Moles/Vol] 22.1 mmol/L Normal 21.0-32.0 [facility] Comment on above: Performed By: #### L 500.2500, L100.0100, L500.3400, L501.6710 ####[facility] [address] [place], [address] Creatinine [Mass/Vol] 0.45 mg/dL Low 0.70-1.20 [facility] Comment on above: Performed By: #### L 500.2500, L100.0100, L500.3400, L501.6710 ####[facility] [address] [place], [address] ECRCL 187.63 ml/min Normal 50-250 [facility] Comment on above: Performed By: #### L 500.2500, L100.0100, L500.3400, L501.6710 ####[facility] [address] [place], [address] GAP 12 Normal 5-15 [facility] Comment on above: Performed By: #### L 500.2500, L100.0100, L500.3400, L501.6710 ####[facility] [address] [place], [address] GFR/1.73 sq M.predicted among non-blacks MDRD (S/P/Bld) [Vol rate/Area] 121 mL/min/{1.73_m2} Normal >60 [facility] Comment on above: Result Comment: mL/m in/1.73m2 CKD-EPI Creatinine Equation (2020) Performed By: #### L 500.2500, L100.0100, L500.3400, L501.6710 ####[facility] [address] [place], [address] Glucose [Mass/Vol] 106 mg/dL High 70-99 [facility] Comment on above: Performed By: #### L 500.2500, L100.0100, L500.3400, L501.6710 ####[facility] [address] [place], [address] Potassium [Moles/Vol] 4.1 mmol/L Normal 3.3-5.1 [facility] Comment on above: Performed By: #### L 500.2500, L100.0100, L500.3400, L501.6710 ####[facility] [address] [place], [address] Sodium [Moles/Vol] 135 mmol/L Normal 133-145 [facility] Comment on above: Performed By: #### L 500.2500, L100.0100, L500.3400, L501.6710 ####[facility] [address] [place], [address] Urea nitrogen [Mass/Vol] 9 mg/dL Normal 4-19 [facility] Comment on above: Performed By: #### L 500.2500, L100.0100, L500.3400, L501.6710 ####[facility] [address] [place], [address] CBC W/Diff, Automatedon 10-1 0-5 Absolute Lymph 1.78 X10 3/uL Normal 0.83-4.51 [facility] Comment on above: Performed By: #### L 500.2500, L100.0100, L500.3400, L501.6710 ####[facility] [address] [place], [address] Absolute Neut 6.5 X10 3/uL Normal 2.0-7.7 [facility] Comment on above: Performed By: #### L 500.2500, L100.0100, L500.3400, L501.6710 ####[facility] [address] [place], [address] Basophils/100 WBC (Bld) 0.2 % Normal 0-1 [facility] Comment on above: Performed By: #### L 500.2500, L100.0100, L500.3400, L501.6710 ####[facility] [address] [place], [address] Eosinophils/100 WBC (Bld) 1.2 % Normal 0-5 [facility] Comment on above: Performed By: #### L 500.2500, L100.0100, L500.3400, L501.6710 ####[facility] [address] [place], [address] Erythrocyte distribution width (RBC) [Ratio] 13.6 % Normal 11.6-14.6 [facility] Comment on above: Performed By: #### L 500.2500, L100.0100, L500.3400, L501.6710 ####[facility] [address] [place], [address] Hematocrit (Bld) [Volume fraction] 30.8 % Low 37-47 [facility] Comment on above: Performed By: #### L 500.2500, L100.0100, L500.3400, L501.6710 ####[facility] [address] [place], [address] Hemoglobin (Bld) [Mass/Vol] 9.6 g/dL Low 12.0-15.0 [facility] Comment on above: Performed By: #### L 500.2500, L100.0100, L500.3400, L501.6710 ####[facility] [address] [place], [address] IG% 0.300 Normal 0.0-0.9 [facility] Comment on above: Result Comment: IG% - Immature Granulocytes (promyelocytes, myelocytes andmetamyelocytes) > 1% indicates that a LEFT SHIFT is Present. Performed By: #### L 500.2500, L100.0100, L500.3400, L501.6710 ####[facility] [address] [place], [address] Lymphocytes/100 WBC (Bld) 19.8 % Normal 19-41 [facility] Comment on above: Performed By: #### L 500.2500, L100.0100, L500.3400, L501.6710 ####[facility] [address] [place], [address] MCH (RBC) [Entitic mass] 26.6 pg Low 27.0-32.0 [facility] Comment on above: Performed By: #### L 500.2500, L100.0100, L500.3400, L501.6710 ####[facility] [address] [place], [address] MCHC (RBC) [Mass/Vol] 31.2 g/dL Low 32-36 [facility] Comment on above: Performed By: #### L 500.2500, L100.0100, L500.3400, L501.6710 ####[facility] [address] [place], [address] MCV (RBC) [Entitic vol] 85.3 fL Normal 81-99 [facility] Comment on above: Performed By: #### L 500.2500, L100.0100, L500.3400, L501.6710 ####[facility] [address] [place], [address] Monocytes/100 WBC (Bld) 5.8 % Normal 0-10 [facility] Comment on above: Performed By: #### L 500.2500, L100.0100, L500.3400, L501.6710 ####[facility] [address] [place], [address] Neutrophils/100 WBC (Bld) 72.7 % High 47-70 [facility] Comment on above: Performed By: #### L 500.2500, L100.0100, L500.3400, L501.6710 ####[facility] [address] [place], [address] Nucleated RBC (Bld) [#/Vol] 0 10*3/uL Normal 0-5 [facility] Comment on above: Performed By: #### L 500.2500, L100.0100, L500.3400, L501.6710 ####[facility] [address] [place], [address] Platelet mean volume (Bld) [Entitic vol] 10.6 fL Normal 6.2-12.0 [facility] Comment on above: Performed By: #### L 500.2500, L100.0100, L500.3400, L501.6710 ####[facility] [address] [place], [address] Platelets (Bld) [#/Vol] 220 10*3/uL Normal 150-450 [facility] Comment on above: Performed By: #### L 500.2500, L100.0100, L500.3400, L501.6710 ####[facility] [address] [place], [address] RBC (Bld) [#/Vol] 3.61 10*6/uL Low 4.2-5.4 [facility] Comment on above: Performed By: #### L 500.2500, L100.0100, L500.3400, L501.6710 ####[facility] [address] [place], [address] RDW SD 42.6 fl Normal 35.1-43.9 [facility] Comment on above: Performed By: #### L 500.2500, L100.0100, L500.3400, L501.6710 ####[facility] [address] [place], [address] WBC (Bld) [#/Vol] 9.0 10*3/uL Normal 4.4-11.0 [facility] Comment on above: Performed By: #### L 500.2500, L100.0100, L500.3400, L501.6710 ####[facility] [address] [place], [address] CRPon 03-29-2025 C-REACTIVE PROT 66.30 mg/L High 0.0-3.0 [facility] Comment on above: Performed By: #### L 500.2500, L100.0100, L500.3400, L501.6710 ####[facility] [address] [place], [address] LDHon 03-29-2025 LDH 122 U/L Normal 84-246 [facility] Comment on above: Performed By: #### L 501.2300, L504.2610 ####[facility] [address] [place], [address] Lactate dehydrogenase (LDH) measurementOrdered By: Niranjan Noe on 03-29-2025 LDH [Catalytic activity/Vol] 122 U/L 84-246 [facility] Liver Profileon 03-29-2025 Albumin [Mass/Vol] 3.5 g/dL Normal 3.5-5.0 [facility] Comment on above: Performed By: #### L 500.2500, L100.0100, L500.3400, L501.6710 ####[facility] [address] [place], [address] ALK PHOS 81 U/L Normal 35-104 [facility] Comment on above: Performed By: #### L 500.2500, L100.0100, L500.3400, L501.6710 ####[facility] [address] [place], [address] ALT [Catalytic activity/Vol] 18 U/L Normal <=34 [facility] Comment on above: Performed By: #### L 500.2500, L100.0100, L500.3400, L501.6710 ####[facility] [address] [place], [address] AST [Catalytic activity/Vol] 20 U/L Normal <=31 [facility] Comment on above: Performed By: #### L 500.2500, L100.0100, L500.3400, L501.6710 ####[facility] [address] [place], [address] Bilirubin [Mass/Vol] 0.37 mg/dL Normal 0.00-1.30 [facility] Comment on above: Performed By: #### L 500.2500, L100.0100, L500.3400, L501.6710 ####[facility] [address] [place], [address] Bilirubin.direct [Mass/Vol] 0.14 mg/dL Normal 0.00-0.30 [facility] Comment on above: Performed By: #### L 500.2500, L100.0100, L500.3400, L501.6710 ####[facility] [address] [place], [address] Globulin (S) [Mass/Vol] 2.7 g/dL Normal 2.2-4.2 [facility] Comment on above: Performed By: #### L 500.2500, L100.0100, L500.3400, L501.6710 ####[facility] [address] [place], [address] T PROT 6.2 g/dL Normal 5.9-8.4 [facility] Comment on above: Performed By: #### L 500.2500, L100.0100, L500.3400, L501.6710 ####[facility] [address] [place], [address] Phosphoruson 03-29-2025 Phosphate [Mass/Vol] 2.7 mg/dL Normal 2.7-4.5 [facility] Comment on above: Performed By: #### L 501.2300, L504.2610 ####[facility] [address] [place], [address] Serum or plasma C reactive p rotein measurement (mass/volume)Ordered By: Niranjan Noe on 03-29-2025 CRP [Mass/Vol] 66.30 mg/L High 0.0-3.0 [facility] CBC W/Diff, Automatedon Absolute Lymph 1.58 X10 3/uL Normal 0.83-4.51 [facility] Comment on above: Performed By: #### L 501.2300, L100.0100 ####[facility] [address] [place], [address] Absolute Neut 4.7 X10 3/uL Normal 2.0-7.7 [facility] Comment on above: Performed By: #### L 501.2300, L100.0100 ####[facility] [address] [place], [address] Basophils/100 WBC (Bld) 0.3 % Normal 0-1 [facility] Comment on above: Performed By: #### L 501.2300, L100.0100 ####[facility] [address] [place], [address] Eosinophils/100 WBC (Bld) 2.8 % Normal 0-5 [facility] Comment on above: Performed By: #### L 501.2300, L100.0100 ####[facility] [address] [place], [address] Erythrocyte distribution width (RBC) [Ratio] 13.6 % Normal 11.6-14.6 [facility] Comment on above: Performed By: #### L 501.2300, L100.0100 ####[facility] [address] [place], [address] Hematocrit (Bld) [Volume fraction] 33.2 % Low 37-47 [facility] Comment on above: Performed By: #### L 501.2300, L100.0100 ####[facility] [address] [place], [address] Hemoglobin (Bld) [Mass/Vol] 10.8 g/dL Low 12.0-15.0 [facility] Comment on above: Performed By: #### L 501.2300, L100.0100 ####[facility] [address] [place], [address] IG% 0.300 Normal 0.0-0.9 [facility] Comment on above: Result Comment: IG% - Immature Granulocytes (promyelocytes, myelocytes andmetamyelocytes) > 1% indicates that a LEFT SHIFT is Present. Performed By: #### L 501.2300, L100.0100 ####[facility] [address] [place], [address] Lymphocytes/100 WBC (Bld) 23.2 % Normal 19-41 [facility] Comment on above: Performed By: #### L 501.2300, L100.0100 ####[facility] [address] [place], [address] MCH (RBC) [Entitic mass] 27.3 pg Normal 27.0-32.0 [facility] Comment on above: Performed By: #### L 501.2300, L100.0100 ####[facility] [address] [place], [address] MCHC (RBC) [Mass/Vol] 32.5 g/dL Normal 32-36 [facility] Comment on above: Performed By: #### L 501.2300, L100.0100 ####[facility] [address] [place], [address] MCV (RBC) [Entitic vol] 83.8 fL Normal 81-99 [facility] Comment on above: Performed By: #### L 501.2300, L100.0100 ####[facility] [address] [place], [address] Monocytes/100 WBC (Bld) 4.4 % Normal 0-10 [facility] Comment on above: Performed By: #### L 501.2300, L100.0100 ####[facility] [address] [place], [address] Neutrophils/100 WBC (Bld) 69.0 % Normal 47-70 [facility] Comment on above: Performed By: #### L 501.2300, L100.0100 ####[facility] [address] [place], [address] Nucleated RBC (Bld) [#/Vol] 0 10*3/uL Normal 0-5 [facility] Comment on above: Performed By: #### L 501.2300, L100.0100 ####[facility] [address] [place], [address] Platelet mean volume (Bld) [Entitic vol] 10.2 fL Normal 6.2-12.0 [facility] Comment on above: Performed By: #### L 501.2300, L100.0100 ####[facility] [address] [place], [address] Platelets (Bld) [#/Vol] 241 10*3/uL Normal 150-450 [facility] Comment on above: Performed By: #### L 501.2300, L100.0100 ####[facility] [address] [place], [address] RBC (Bld) [#/Vol] 3.96 10*6/uL Low 4.2-5.4 [facility] Comment on above: Performed By: #### L 501.2300, L100.0100 ####[facility] [address] [place], [address] RDW SD 41.9 fl Normal 35.1-43.9 [facility] Comment on above: Performed By: #### L 501.2300, L100.0100 ####[facility] [address] [place], [address] WBC (Bld) [#/Vol] 6.8 10*3/uL Normal 4.4-11.0 [facility] Comment on above: Performed By: #### L 501.2300, L100.0100 ####[facility] [address] [place], [address] Calculated very low density lipoprotein (VLDL) cholesterol measurementOrdered By: Zak Harden on 03-28-2025 Calculated very low density lipoprotein (VLDL) cholesterol measurement 15 mg/dL 5-40 [facility] Comprehensive Metabolic Prof ilon 03-28-2025 Albumin [Mass/Vol] 3.6 g/dL Normal 3.5-5.0 [facility] Comment on above: Performed By: #### L 500.4050, L500.4100, L501.2450 ####[facility] [address] [place], [address] Albumin/Globulin [Mass ratio] 1.4 {ratio} Normal 0.9-2.4 [facility] Comment on above: Performed By: #### L 500.4050, L500.4100, L501.2450 ####[facility] [address] [place], [address] ALK PHOS 82 U/L Normal 35-104 [facility] Comment on above: Performed By: #### L 500.4050, L500.4100, L501.2450 ####[facility] [address] [place], [address] ALT [Catalytic activity/Vol] 18 U/L Normal <=34 [facility] Comment on above: Performed By: #### L 500.4050, L500.4100, L501.2450 ####[facility] [address] [place], [address] AST [Catalytic activity/Vol] 19 U/L Normal <=31 [facility] Comment on above: Performed By: #### L 500.4050, L500.4100, L501.2450 ####[facility] [address] [place], [address] Bilirubin [Mass/Vol] 0.31 mg/dL Normal 0.00-1.30 [facility] Comment on above: Performed By: #### L 500.4050, L500.4100, L501.2450 ####[facility] [address] [place], [address] BUN/CRE 22.3 RATIO High 10-20 [facility] Comment on above: Performed By: #### L 500.4050, L500.4100, L501.2450 ####[facility] [address] [place], [address] Calcium [Mass/Vol] 9.6 mg/dL Normal 7.6-11.0 [facility] Comment on above: Performed By: #### L 500.4050, L500.4100, L501.2450 ####[facility] [address] [place], [address] Chloride [Moles/Vol] 105 mmol/L Normal 98-108 [facility] Comment on above: Performed By: #### L 500.4050, L500.4100, L501.2450 ####[facility] [address] [place], [address] CO2 [Moles/Vol] 26.6 mmol/L Normal 21.0-32.0 [facility] Comment on above: Performed By: #### L 500.4050, L500.4100, L501.2450 ####[facility] [address] [place], [address] Creatinine [Mass/Vol] 0.58 mg/dL Low 0.70-1.20 [facility] Comment on above: Performed By: #### L 500.4050, L500.4100, L501.2450 ####[facility] [address] [place], [address] ECRCL 145.11 ml/min Normal 50-250 [facility] Comment on above: Performed By: #### L 500.4050, L500.4100, L501.2450 ####[facility] [address] [place], [address] GAP 7 Normal 5-15 [facility] Comment on above: Performed By: #### L 500.4050, L500.4100, L501.2450 ####[facility] [address] [place], [address] GFR/1.73 sq M.predicted among non-blacks MDRD (S/P/Bld) [Vol rate/Area] 114 mL/min/{1.73_m2} Normal >60 [facility] Comment on above: Result Comment: mL/m in/1.73m2 CKD-EPI Creatinine Equation (2020) Performed By: #### L 500.4050, L500.4100, L501.2450 ####[facility] [address] [place], [address] Globulin (S) [Mass/Vol] 2.7 g/dL Normal 2.2-4.2 [facility] Comment on above: Performed By: #### L 500.4050, L500.4100, L501.2450 ####[facility] [address] [place], [address] Glucose [Mass/Vol] 118 mg/dL High 70-99 [facility] Comment on above: Performed By: #### L 500.4050, L500.4100, L501.2450 ####[facility] [address] [place], [address] Potassium [Moles/Vol] 4.1 mmol/L Normal 3.3-5.1 [facility] Comment on above: Performed By: #### L 500.4050, L500.4100, L501.2450 ####[facility] [address] [place], [address] Sodium [Moles/Vol] 139 mmol/L Normal 133-145 [facility] Comment on above: Performed By: #### L 500.4050, L500.4100, L501.2450 ####[facility] [address] [place], [address] T PROT 6.3 g/dL Normal 5.9-8.4 [facility] Comment on above: Performed By: #### L 500.4050, L500.4100, L501.2450 ####[facility] [address] [place], [address] Urea nitrogen [Mass/Vol] 13 mg/dL Normal 4-19 [facility] Comment on above: Performed By: #### L 500.4050, L500.4100, L501.2450 ####[facility] [address] [place], [address] LDHon 03-28-2025 LDH 122 U/L Normal 84-246 [facility] Comment on above: Performed By: #### L 504.2610 ####[facility] [address] [place], [address] LDL calc ser/plasOrdered By: Zak Harden on 03-28-2025 Cholesterol in LDL [Mass/Vol] 73 mg/dL [facility] Comment on above: Ucfyladadr=869-500 m g/dL & Higher Nfco=256 mg/dL or greaterFriedwald Equation for LDL-C Lipaseon 03-28-2025 Lipase [Catalytic activity/Vol] 1356 U/L High 13-75 [facility] Comment on above: Result Comment: Plea se note:LIPASE revised reference range effective 22.New Lipase methodology. Expected to produce lower valuesthan the previous assay method.NEW Reference Range: 13 - 75 U/L Performed By: #### L 500.4050, L500.4100, L501.2450 ####[facility] [address] [place], [address] Lipase measurementOrdered By : Zak Harden on 03-28-2025 Lipase [Catalytic activity/Vol] 1356 U/L High 13-75 [facility] Comment on above: Please note:LIPASE r evised reference range effective 22. New Lipase methodology. Expected to produce lower values than the previous assay method. NEW Reference Range: 13 - 75 U/L Lipid Profileon 03-28-2025 CHOL:HDL 2.85 Normal [facility] Comment on above: Performed By: #### L 500.4050, L500.4100, L501.2450 ####[facility] [address] [place], [address] Cholesterol [Mass/Vol] 136 mg/dL Normal <=200 [facility] Comment on above: Result Comment: Chol esterol level, Desirable <200 mg/dLBorderline high cholesterol 200-239 mg/dLHigh cholesterol >=240 mg/dLRecommendations of the NCEP Adult Treatment Panel for thefollowing risk-cutoff thresholds for the [place] Americanpulation. Performed By: #### L 500.4050, L500.4100, L501.2450 ####[facility] [address] [place], [address] Cholesterol in HDL [Mass/Vol] 48 mg/dL Normal [facility] Comment on above: Result Comment: Yoana onal Cholesterol Education Program (NCEP) guidelines:<40 mg/dL: Low HDL-cholesterol (major risk factor for CHD)>= 60 mg/dL: High HDL-cholesterol (negative risk factor forCHD)HDL-cholesterol is affected by a number of factors, e.g.smoking, exercise, hormones, sex and age. Performed By: #### L 500.4050, L500.4100, L501.2450 ####[facility] [address] [place], [address] Cholesterol in LDL [Mass/Vol] 73 mg/dL Normal [facility] Comment on above: Result Comment: Bord voqzck=459-917 mg/dL Higher Gjiy=189 mg/dL or greaterFriedwald Equation for LDL-C Performed By: #### L 500.4050, L500.4100, L501.2450 ####[facility] [address] [place], [address] Cholesterol in VLDL [Mass/Vol] 15 mg/dL Normal 5-40 [facility] Comment on above: Performed By: #### L 500.4050, L500.4100, L501.2450 ####[facility] [address] [place], [address] Triglyceride [Mass/Vol] 77 mg/dL Normal [facility] Comment on above: Result Comment: The drugs N-Acetylcysteine and Metamizole may falselydepress this assay.Normal range: <150 mg/dLBorderline High: 150-199 mg/dLHigh: 200-499 mg/dLVery High: >500 mg/dL Performed By: #### L 500.4050, L500.4100, L501.2450 ####[facility] [address] [place], [address] MR/CON.PCM.GIon 03-28-2025 MR/CON.PCM.GI Normal [facility] MRCP Abdomen without Contras ton 03-28-2025 MRCP Abdomen without Contrast Normal [facility] Magnetic resonance imaging r eportOrdered By: Basil Blankenship on 03-28-2025 Study report [facility] Imaging Services [address] [place] [address] MRCP Abdomen without Contrast MR#: [id number] Acct: [id number] Name: CASIMIRO LIU Rep #: [id number] : 1980 F [id number] From: Alex Blankenship MD PCP: Dr. Mary Escobar MD Status: ADM IN Study:MRCP Abdomen without Contrast Date of E xam: 03/28/25 Exam# [id number] Ordering Dr: Zak Guardado DO PROCEDURE: MRCP ABDOMEN WITHOUT CONTRAST 03/28/2025 REASON FOR EXAM: RECURRENT ACUTE PANCREATITIS. TECHNIQUE: Procedure Code: MRIMRCP Modality: MR Procedure: MRCP ABDOMEN WITHOUT CONTRAST Multiplanar and multisequence images were obtained. FINDINGS: Normal liver and kidneys. Increased signal in the pancreatic tail with retroperitoneal fluid suggesting pancreatitis No liver or pancreatic mass. Gallbladder surgically absent. No dilatation of the extrahepatic biliary duct or pancreatic duct. Negative forcholedocholithiasis. MRI/MRCP Abdomen without Contrast IMPRESSION: Negative for choledocholithiasis. Pancreatitis. Reading Location: [facility] CC: Dr. Mary Escobar MD; Dr. Zak Carcamo DO ~ Comic Book Artist: Signed [facility] Phosphoruson 03-28-2025 Phosphate [Mass/Vol] 3.0 mg/dL Normal 2.7-4.5 [facility] Comment on above: Performed By: #### L 501.2300, L100.0100 ####[facility] [address] [place], [place], [address] Screening total cholesterol/ high density lipoprotein (HDL) cholesterol ratioOrdered By: Zak Harden on 03-28-2025 Cholesterol.total/Nai sterol in HDL [Mass ratio] 2.85 {ratio} [facility] Serum or plasma albumin/glob ulin mass ratioOrdered By: Zak Harden on 03-28-2025 Albumin/Globulin [Mass ratio] 1.4 {ratio} 0.9-2.4 [facility] Serum or plasma cholesterol in HDL measurement (mass/volume)Ordered By: Zak Harden on 03-28-2025 Cholesterol in HDL [Mass/Vol] 48 mg/dL >40 [facility] Comment on above: National Cholesterol Education Program (NCEP) guidelines:<40 mg/dL: Low HDL-cholesterol (major risk factor for CHD)>= 60 mg/dL: High HDL-cholesterol (negative risk factor for CHD)HDL-cholesterol is affected by a number of factors, e.g. smoking, exercise, hormones, sex and age. Serum or plasma cholesterol measurement (mass/volume)Ordered By: Zak Harden on 03-28-2025 Cholesterol [Mass/Vol] 136 mg/dL <201 [facility] Comment on above: Cholesterol level, D esirable <200 mg/dLBorderline high cholesterol 200-239 mg/dLHigh cholesterol >=240 mg/dLRecommendations of the NCEP Adult Treatment Panel for the following risk-cutoff thresholds for the [place] population. Triglycerides measurementOrd ered By: Zak Harden on 03-28-2025 Triglyceride [Mass/Vol] 77 mg/dL <199 [facility] Comment on above: The drugs N-Acetylcy steine and Metamizole may falsely depress this assay. Normal range: <150 mg/dLBorderline High: 150-199 mg/dLHigh: 200-499 mg/dLVery High: >500 mg/dL Abdomen/Pelvis W IV Cont ONL Yon 03-27-2025 Abdomen/Pelvis W IV Cont ONLY Normal [facility] Absolute lymphocyte countOrd ered By: Vinicio Gaspar on 03-27-2025 Lymphocytes Auto (Unsp spec) [#/Vol] 2.43 10*3/uL 0.83-4.51 [facility] Absolute neutrophil countOrd ered By: Vinicio Gaspar on 03-27-2025 Neutrophils (Bld) [#/Vol] 8.0 10*3/uL High 2.0-7.7 [facility] Alcohol, Blood (Medical)-Ser umon 03-27-2025 SERUM ETOH < 10.1 Normal <=10.0 [facility] Comment on above: Result Comment: This test is for medical purposes only. The legaldefinition of intoxication varies according to local law. Performed By: #### L 501.9100 ####[facility] [address] [place], [address] Anion gap in Serum or Plasma Ordered By: Vinicio Gaspar on 03-27-2025 Anion gap [Moles/Vol] 12 mmol/L 5-15 [facility] Automated lymphocyte count a s percentage of total leukocytesOrdered By: Vinicio Gaspar on 03-27-2025 Lymphocytes/100 WBC Auto (Unsp spec) 21.2 % 19-41 [facility] BUN/creatinine ratioOrdered By: Vinicio Gaspar on 03-27-2025 Urea nitrogen/Creatinine [Mass ratio] 22.0 mg/mg High 10-20 [facility] Basophil percentageOrdered B y: Vinicio Maria Luisatyree on 03-27-2025 Basophils/100 WBC (Bld) 0.3 % 0-1 [facility] Bilirubin Test strip Ql (U)O rdered By: Vinicio Gapsar on 03-27-2025 Bilirubin Ql (U) Negative Negative [facility] Bilirubin, totalOrdered By: Vinicio Gaspar on 03-27-2025 Bilirubin [Mass/Vol] 0.48 mg/dL 0.00-1.30 [facility] CBC W/Diff, Automatedon 10- Absolute Lymph 2.43 X10 3/uL Normal 0.83-4.51 [facility] Comment on above: Performed By: #### L 500.4050, L100.0100, L700.6800, L501.2450 ####[facility] [address] [place], [address] Absolute Neut 8.0 X10 3/uL High 2.0-7.7 [facility] Comment on above: Performed By: #### L 500.4050, L100.0100, L700.6800, L501.2450 ####[facility] [address] [place], [address] Basophils/100 WBC (Bld) 0.3 % Normal 0-1 [facility] Comment on above: Performed By: #### L 500.4050, L100.0100, L700.6800, L501.2450 ####[facility] [address] [place], [address] Eosinophils/100 WBC (Bld) 2.2 % Normal 0-5 [facility] Comment on above: Performed By: #### L 500.4050, L100.0100, L700.6800, L501.2450 ####[facility] [address] [place], [address] Erythrocyte distribution width (RBC) [Ratio] 13.3 % Normal 11.6-14.6 [facility] Comment on above: Performed By: #### L 500.4050, L100.0100, L700.6800, L501.2450 ####[facility] [address] [place], [address] Hematocrit (Bld) [Volume fraction] 39.6 % Normal 37-47 [facility] Comment on above: Performed By: #### L 500.4050, L100.0100, L700.6800, L501.2450 ####[facility] [address] [place], [address] Hemoglobin (Bld) [Mass/Vol] 12.7 g/dL Normal 12.0-15.0 [facility] Comment on above: Performed By: #### L 500.4050, L100.0100, L700.6800, L501.2450 ####[facility] [address] [place], [address] IG% 0.300 Normal 0.0-0.9 [facility] Comment on above: Result Comment: IG% - Immature Granulocytes (promyelocytes, myelocytes andmetamyelocytes) > 1% indicates that a LEFT SHIFT is Present. Performed By: #### L 500.4050, L100.0100, L700.6800, L501.2450 ####[facility] [address] [place], [address] Lymphocytes/100 WBC (Bld) 21.2 % Normal 19-41 [facility] Comment on above: Performed By: #### L 500.4050, L100.0100, L700.6800, L501.2450 ####[facility] [address] [place], [address] MCH (RBC) [Entitic mass] 26.2 pg Low 27.0-32.0 [facility] Comment on above: Performed By: #### L 500.4050, L100.0100, L700.6800, L501.2450 ####[facility] [address] [place], [address] MCHC (RBC) [Mass/Vol] 32.1 g/dL Normal 32-36 [facility] Comment on above: Performed By: #### L 500.4050, L100.0100, L700.6800, L501.2450 ####[facility] [address] [place], [address] MCV (RBC) [Entitic vol] 81.8 fL Normal 81-99 [facility] Comment on above: Performed By: #### L 500.4050, L100.0100, L700.6800, L501.2450 ####[facility] [address] [place], [address] Monocytes/100 WBC (Bld) 5.9 % Normal 0-10 [facility] Comment on above: Performed By: #### L 500.4050, L100.0100, L700.6800, L501.2450 ####[facility] [address] [place], [address] Neutrophils/100 WBC (Bld) 70.1 % High 47-70 [facility] Comment on above: Performed By: #### L 500.4050, L100.0100, L700.6800, L501.2450 ####[facility] [address] [place], [address] Nucleated RBC (Bld) [#/Vol] 0 10*3/uL Normal 0-5 [facility] Comment on above: Performed By: #### L 500.4050, L100.0100, L700.6800, L501.2450 ####[facility] [address] [place], [address] Platelet mean volume (Bld) [Entitic vol] 10.2 fL Normal 6.2-12.0 [facility] Comment on above: Performed By: #### L 500.4050, L100.0100, L700.6800, L501.2450 ####[facility] [address] [place], [address] Platelets (Bld) [#/Vol] 338 10*3/uL Normal 150-450 [facility] Comment on above: Performed By: #### L 500.4050, L100.0100, L700.6800, L501.2450 ####[facility] [address] [place], [address] RBC (Bld) [#/Vol] 4.84 10*6/uL Normal 4.2-5.4 [facility] Comment on above: Performed By: #### L 500.4050, L100.0100, L700.6800, L501.2450 ####[facility] [address] [place], [address] RDW SD 39.2 fl Normal 35.1-43.9 [facility] Comment on above: Performed By: #### L 500.4050, L100.0100, L700.6800, L501.2450 ####[facility] [address] [place], [address] WBC (Bld) [#/Vol] 11.5 10*3/uL High 4.4-11.0 [facility] Comment on above: Performed By: #### L 500.4050, L100.0100, L700.6800, L501.2450 ####[facility] [address] [place], [address] Carbon dioxide, total [Moles /volume] in Central venous bloodOrdered By: Vinicio Gaspar on 03-27-2025 CO2 [Moles/Vol] 26.7 mmol/L 21.0-32.0 [facility] Chloride assayOrdered By: Castro Gaspar on 03-27-2025 Chloride [Moles/Vol] 99 mmol/L 98-108 [facility] Comprehensive Metabolic Prof ilon 03-27-2025 Albumin [Mass/Vol] 4.7 g/dL Normal 3.5-5.0 [facility] Comment on above: Performed By: #### L 500.4050, L100.0100, L700.6800, L501.2450 ####[facility] [address] [place], [address] Albumin/Globulin [Mass ratio] 1.6 {ratio} Normal 0.9-2.4 [facility] Comment on above: Performed By: #### L 500.4050, L100.0100, L700.6800, L501.2450 ####[facility] [address] [place], [address] ALK PHOS 119 U/L High 35-104 [facility] Comment on above: Performed By: #### L 500.4050, L100.0100, L700.6800, L501.2450 ####[facility] [address] [place], [address] ALT [Catalytic activity/Vol] 24 U/L Normal <=34 [facility] Comment on above: Performed By: #### L 500.4050, L100.0100, L700.6800, L501.2450 ####[facility] [address] [place], [address] AST [Catalytic activity/Vol] 25 U/L Normal <=31 [facility] Comment on above: Performed By: #### L 500.4050, L100.0100, L700.6800, L501.2450 ####[facility] [address] [place], [address] Bilirubin [Mass/Vol] 0.48 mg/dL Normal 0.00-1.30 [facility] Comment on above: Performed By: #### L 500.4050, L100.0100, L700.6800, L501.2450 ####[facility] [address] [place], [address] BUN/CRE 22.0 RATIO High 10-20 [facility] Comment on above: Performed By: #### L 500.4050, L100.0100, L700.6800, L501.2450 ####[facility] [address] [place], [address] Calcium [Mass/Vol] 10.7 mg/dL Normal 7.6-11.0 [facility] Comment on above: Performed By: #### L 500.4050, L100.0100, L700.6800, L501.2450 ####[facility] [address] [place], [address] Chloride [Moles/Vol] 99 mmol/L Normal 98-108 [facility] Comment on above: Performed By: #### L 500.4050, L100.0100, L700.6800, L501.2450 ####[facility] [address] [place], [address] CO2 [Moles/Vol] 26.7 mmol/L Normal 21.0-32.0 [facility] Comment on above: Performed By: #### L 500.4050, L100.0100, L700.6800, L501.2450 ####[facility] [address] [place], [address] Creatinine [Mass/Vol] 0.50 mg/dL Low 0.70-1.20 [facility] Comment on above: Performed By: #### L 500.4050, L100.0100, L700.6800, L501.2450 ####[facility] [address] [place], [address] ECRCL 168.45 ml/min Normal 50-250 [facility] Comment on above: Performed By: #### L 500.4050, L100.0100, L700.6800, L501.2450 ####[facility] [address] [place], [address] GAP 12 Normal 5-15 [facility] Comment on above: Performed By: #### L 500.4050, L100.0100, L700.6800, L501.2450 ####[facility] [address] [place], [address] GFR/1.73 sq M.predicted among non-blacks MDRD (S/P/Bld) [Vol rate/Area] 118 mL/min/{1.73_m2} Normal >60 [facility] Comment on above: Result Comment: mL/m in/1.73m2 CKD-EPI Creatinine Equation (2020) Performed By: #### L 500.4050, L100.0100, L700.6800, L501.2450 ####[facility] [address] [place], [address] Globulin (S) [Mass/Vol] 3.0 g/dL Normal 2.2-4.2 [facility] Comment on above: Performed By: #### L 500.4050, L100.0100, L700.6800, L501.2450 ####[facility] [address] [place], [address] Glucose [Mass/Vol] 100 mg/dL High 70-99 [facility] Comment on above: Performed By: #### L 500.4050, L100.0100, L700.6800, L501.2450 ####[facility] [address] [place], [address] Potassium [Moles/Vol] 3.6 mmol/L Normal 3.3-5.1 [facility] Comment on above: Performed By: #### L 500.4050, L100.0100, L700.6800, L501.2450 ####[facility] [address] [place], [address] Sodium [Moles/Vol] 138 mmol/L Normal 133-145 [facility] Comment on above: Performed By: #### L 500.4050, L100.0100, L700.6800, L501.2450 ####[facility] [address] [place], [address] T PROT 7.7 g/dL Normal 5.9-8.4 [facility] Comment on above: Performed By: #### L 500.4050, L100.0100, L700.6800, L501.2450 ####[facility] [address] [place], [address] Urea nitrogen [Mass/Vol] 11 mg/dL Normal 4-19 [facility] Comment on above: Performed By: #### L 500.4050, L100.0100, L700.6800, L501.2450 ####[facility] [address] [place], [address] Emergency Department Summary on 03-27-2025 Emergency Department Summary Normal [facility] Eosinophil percentageOrdered By: Vinicio Gaspar on 03-27-2025 Eosinophils/100 WBC (Bld) 2.2 % 0-5 [facility] Erythrocyte distribution wid th ratioOrdered By: Vinicio Gaspar on 03-27-2025 Erythrocyte distribution width (RBC) [Ratio] 13.3 % 11.6-14.6 [facility] Erythrocyte distribution wid th standard deviationOrdered By: Vinicio Gaspar on 03-27-2025 Erythrocyte distribution width (RBC) [Ratio] 39.2 fl 35.1-43.9 [facility] Glomerular filtration rate ( GFR) estimation/1.73 sq m using serum, plasma, or whole bOrdered By: Vinicio Gaspar on 03-27-2025 GFR/1.73 sq M.predicted among non-blacks MDRD (S/P/Bld) [Vol rate/Area] 118 mL/min/{1.73_m2} >60 [facility] Comment on above: mL/min/1.73m2 CKD-EP I Creatinine Equation (2020) H AND P Exam - Hospitaliston 03-27-2025 H&P Exam - Hospitalist Normal [facility] Hematocrit Auto (Bld) [Volum e fraction]Ordered By: Vinicio Gaspar on 03-27-2025 Hematocrit (Bld) [Volume fraction] 39.6 % 37-47 [facility] Hemoglobin A1con 03-27-2025 HbA1c (Bld) [Mass fraction] 5.7 % Normal <=5.6 [facility] Comment on above: Result Comment: Norm al < 5.7 % Prediabetic 5.7 - 6.4 % Diabetic >or= 6.5 % Please note range changes. Performed By: #### L 501.9985 ####[facility] [address] [place], [place], [address] Hemoglobin A1c percentageOrd ered By: Zak Harden on 03-27-2025 HbA1c (Bld) [Mass fraction] 5.7 % <5.7 [facility] Comment on above: Normal < 5.7 % Predi abetic 5.7 - 6.4 % Diabetic >or= 6.5 % Please note range changes. Hemoglobin measurementOrdere d By: Vinicio Gaspar on 03-27-2025 Hemoglobin (Bld) [Mass/Vol] 12.7 g/dL 12.0-15.0 [facility] Immature granulocytes/100 WB C Auto (Bld)Ordered By: Vinicio Gaspar on 03-27-2025 Immature granulocytes/100 WBC (Bld) 0.300 % 0.0-0.9 [facility] Comment on above: IG% - Immature Granu locytes (promyelocytes, myelocytes and metamyelocytes) > 1% indicates that a LEFT SHIFT is Present. Ketones Test strip Ql (U)Ord ered By: Vinicio Gasapr on 03-27-2025 Ketones Ql (U) Negative Negative [facility] Laboratory - Chemistry and C hemistry - challengeOrdered By: Vinicio Gaspar on 03-27-2025 AST [Catalytic activity/Vol] 25 U/L <32 [facility] Lipaseon 03-27-2025 Lipase [Catalytic activity/Vol] U/L High 13-75 [facility] Comment on above: Result Comment: Giovanni reilly note:LIPASE revised reference range effective 22.New Lipase methodology. Expected to produce lower valuesthan the previous assay method.NEW Reference Range: 13 - 75 U/L Performed By: #### L 500.4050, L100.0100, L700.6800, L501.2450 ####[facility] [address] [place], [place], [address] Lipase measurementOrdered By : Vinicio Gaspar on 03-27-2025 Lipase [Catalytic activity/Vol] U/L High 13-75 [facility] Comment on above: Please note:LIPASE r evised reference range effective 22. New Lipase methodology. Expected to produce lower values than the previous assay method. NEW Reference Range: 13 - 75 U/L MCV (mean corpuscular volume ) determinationOrdered By: Vinicio Gaspar on 03-27-2025 MCV (RBC) [Entitic vol] 81.8 fL 81-99 [facility] Magnesiumon 03-27-2025 Magnesium [Mass/Vol] 2.1 mg/dL Normal 1.5-2.2 [facility] Comment on above: Performed By: #### L 501.9520, L501.5200 ####[facility] [address] [place], [address] Magnesium measurement (mass/ volume)Ordered By: Zak Harden on 03-27-2025 Magnesium (Unsp spec) [Mass/Vol] 2.1 mg/dL 1.5-2.2 [facility] Mean corpuscular hemoglobin (MCH) determinationOrdered By: Vinicio Gaspar on 03-27-2025 MCH (RBC) [Entitic mass] 26.2 pg Low 27.0-32.0 [facility] Mean corpuscular hemoglobin concentration (MCHC) determinationOrdered By: Vinicio Gaspar on 03-27-2025 MCHC (RBC) [Mass/Vol] 32.1 g/dL 32-36 [facility] Mean platelet volume determi nationOrdered By: Vinicio Gaspar on 03-27-2025 Platelet mean volume (Bld) [Entitic vol] 10.2 fL 6.2-12.0 [facility] Microscopic analysis of urin e for red blood cells (RBC)Ordered By: Vinicio Gaspar on 03-27-2025 Microscopic analysis of urine for red blood cells (RBC) 0-5 SEEN /hpf 0-5 [facility] Monocyte percentageOrdered B y: Vinicio Gaspar on 03-27-2025 Monocytes/100 WBC (Bld) 5.9 % 0-10 [facility] Mucus LM Ql (Urine sed)Order ed By: Vinicio Gaspar on 03-27-2025 Mucus Ql (Urine sed) 1+ /hpf [facility] Neutrophil percentageOrdered By: Vinicio Gaspar on 03-27-2025 Neutrophils/100 WBC (Bld) 70.1 % High 47-70 [facility] Nitrite Test strip Ql (U)Ord ered By: Vinicio Gaspar on 03-27-2025 Nitrite Ql (U) Negative Negative [facility] Nucleated red blood cell per centageOrdered By: Vinicio Gaspar on 03-27-2025 Nucleated RBC/100 WBC (Bld) [Ratio] 0 % 0-5 [facility] Platelet countOrdered By: Castro Gaspar on 03-27-2025 Platelets (Bld) [#/Vol] 338 10*3/uL 150-450 [facility] Potassium measurement (mass/ volume)Ordered By: Vinicio Gaspar on 03-27-2025 Potassium (Unsp spec) [Mass/Vol] 3.6 mmol/L 3.3-5.1 [facility] ,Serum,hCG Quali.on 03-27-2025 HCG, SERUM QUAL Negative Normal [facility] Comment on above: Performed By: #### L 500.4050, L100.0100, L700.6800, L501.2450 ####[facility] [address] [place], [address] Protein Test strip Ql (U)Ord ered By: Vinicio Gaspar on 03-27-2025 Protein Ql (U) 15 mg/dl High Negative [facility] RBC Auto (Bld) [#/Vol]Ordere d By: Vinicio Gaspar on 03-27-2025 RBC (Bld) [#/Vol] 4.84 10*6/uL 4.2-5.4 [facility] Serum beta-hCG test, qualita tiveOrdered By: Vinicio Gaspar on 03-27-2025 Beta HCG ( test) Ql Negative [facility] Serum creatinine measurement (mass/volume)Ordered By: Vinicio Gaspar on 03-27-2025 Creatinine [Mass/Vol] 0.50 mg/dL Low 0.70-1.20 [facility] Serum globulin measurementOr dered By: Vinicio Gaspar on 03-27-2025 Globulin (S) [Mass/Vol] 3.0 g/dL 2.2-4.2 [facility] Serum glucose measurement (m ass/volume)Ordered By: Vinicio Gaspar on 03-27-2025 Glucose [Mass/Vol] 100 mg/dL High 70-99 [facility] Serum or plasma alanine barton otransferase (ALT) measurementOrdered By: Vinicio Gaspar on 03-27-2025 ALT [Catalytic activity/Vol] 24 U/L <35 [facility] Serum or plasma albumin chris urement (mass/volume)Ordered By: Vinicio Gaspar on 03-27-2025 Albumin [Mass/Vol] 4.7 g/dL 3.5-5.0 [facility] Serum or plasma albumin/glob ulin mass ratioOrdered By: Vinicio Gaspar on 03-27-2025 Albumin/Globulin [Mass ratio] 1.6 {ratio} 0.9-2.4 [facility] Serum or plasma alkaline saeed sphatase measurementOrdered By: Vinicio Gaspar on 03-27-2025 ALP [Catalytic activity/Vol] 119 U/L High 35-104 [facility] Serum or plasma calcium chris urement (mass/volume)Ordered By: Vinicio Gaspar on 03-27-2025 Calcium [Mass/Vol] 10.7 mg/dL 7.6-11.0 [facility] Serum or plasma ethanol chris urement (mass/volume)Ordered By: Zak Harden on 03-27-2025 Ethanol [Mass/Vol] mg/dL <10.1 [facility] Comment on above: This test is for med ical purposes only. The legal definition of intoxication varies according to local law. Serum or plasma urea nitroge n measurement (mass/volume)Ordered By: Vinicio Gaspar on 03-27-2025 Urea nitrogen [Mass/Vol] 11 mg/dL 4-19 [facility] Sodium levelOrdered By: Vinicio Gaspar on 03-27-2025 Sodium [Moles/Vol] 138 mmol/L 133-145 [facility] Squamous epithelial cells de tection in urine sediment by light microscopyOrdered By: Vinicio Gaspar on 03-27-2025 Epithelial cells.squamous LM Ql (Urine sed) 0-5 SEEN /hpf 5-10 [facility] TSH DL <= 0.005 mIU/L QnOrde red By: Zak Harden on 03-27-2025 TSH Qn 2.940 uIU/mL 0.300-4.200 [facility] Thyroid Stim Hormone (TSH)on 03-27-2025 TSH 2.940 uIU/mL Normal 0.300-4.200 [facility] Comment on above: Performed By: #### L 501.9520, L501.5200 ####[facility] [address] [place], [place], [id number] Total proteinOrdered By: Samia Gaspar on 03-27-2025 Protein [Mass/Vol] 7.7 g/dL 5.9-8.4 [facility] Urinalysis, Completeon 03-27 EPI,SQUAMOUS 0-5 SEEN Normal 5-10 [facility] Comment on above: Order Comment: LAWSON CTOR TO SPECIFY Performed By: #### L 400.0001 ####[facility] [address] [place], [address] Mucus Ql (Urine sed) 1+ /hpf Normal [facility] Comment on above: Order Comment: LAWSON CTOR TO SPECIFY Performed By: #### L 400.0001 ####[facility] [address] [place], [address] RBC 0-5 SEEN Normal 0-5 [facility] Comment on above: Order Comment: LAWSON CTOR TO SPECIFY Performed By: #### L 400.0001 ####[facility] [address] [place], [address] WBC 0-5 SEEN Normal 0-5 [facility] Comment on above: Order Comment: LAWSON CTOR TO SPECIFY Performed By: #### L 400.0001 ####[facility] [address] [place], [address] BACTERIA 0 SEEN Normal None Seen [facility] Comment on above: Order Comment: LAWSON CTOR TO SPECIFY Performed By: #### L 400.0001 ####[facility] [address] [place], [address] Urine clarityOrdered By: Samia Gaspar on 03-27-2025 Clarity (U) Clear Clear [facility] Urine color determinationOrd ered By: Vinicio Gaspar on 03-27-2025 Color (U) Straw Yellow [facility] Urine glucose detectionOrder ed By: Vinicio Gaspar on 03-27-2025 Glucose Ql (U) Normal mg/dl Normal [facility] Urine leukocyte esterase det ection by dipstickOrdered By: Vinicio Gaspar on 03-27-2025 Leukocyte esterase Test strip Ql (U) Negative Negative [facility] Urine pHOrdered By: Vinicio mitchell on 03-27-2025 pH (U) 6.0 [pH] 5.0 - 8.0 [facility] Urine sediment bacteria coun t by microscopy (number/high power field)Ordered By: Vinicio Gaspar on 03-27-2025 Bacteria LM.HPF (Urine sed) [#/Area] 0 /[HPF] None Seen [facility] Urine specific gravity measu rementOrdered By: Vinicio Gaspar on 03-27-2025 Specific gravity (U) [Rel density] 1.015 1.002-1.030 [facility] Urine urobilinogen measureme ntOrdered By: Vinicio Gaspar on 03-27-2025 Urobilinogen Ql (U) Normal mg/dl Normal [facility] White blood cell (WBC) count Ordered By: Vinicio Gaspar on 03-27-2025 WBC (Bld) [#/Vol] 11.5 10*3/uL High 4.4-11.0 [facility] White blood cell countOrdere d By: Vinicio Gaspar on 03-27-2025 White blood cell count 0-5 SEEN /hpf 0-5 [facility] CNPNon 12-19-2024 CNPN Telephone ([id number]) -------- CASIMIRO LIU ([id number]) 1980 F Date Time Provider Department 12/19/24 VITOR SIMS [id number] During your visit today, we recorded the following information about you: Vitor Sims MD 12/19/2024 3:15 PM Signed Needs routine MMG screening. Last MMG completed , LT breast nodule. New diag MMG and US ordered. Please call and inform. Allergies As of Date: 12/19/2024 (No Known Allergies) Date Reviewed: 01/24/2023 Reviewed by: Nerissa Watson MD - Fully Assessed Reason for Visit: Breast Problem [16] Primary Visit Diagnosis:Abnormality of left breast on screening mammogram [R92.8] Order(s):[facility] Hernandez [place] BILATERAL [[id number]] Order #: [id number] FUTURE BREAST LTD LEFT [[id number]] Order #: [id number] FUTURE Prescriptions as of 12/24/2024 - oxyCODONE IR (ROXICODONE) 5 mg immediate release tablet Take 1 tablet by mouth every 6 hours as needed for pain. - acetaminophen (TYLENOL EXTRA STRENGTH) 500 mg tablet Take 2 tablets by mouth every 6 hours as needed for pain. - escitalopram oxalate (LEXAPRO ORAL) Take by mouth. - docusate sodium (COLACE) 100 mg capsule Take 1 capsule by mouth once daily. Problem List As Of Date 12/19/2024 Noted Resolved Vitamin D deficiency [E55.9] 07/05/2016 Tobacco abuse [Z72.0] 07/05/2016 03/15/2018 Moderate episode of recurrent major depressive *07/05/2016 Anxiety [F41.9] 07/05/2016 Onychomycosis [B35.1] 08/30/2017 Routine cervical smear [Z12.4] 09/09/2017 Visit for gynecologic examination [Z01.419] 09/09/2017 Encounter for initial prescription of other con*09/09/2017 Menorrhagia with regular cycle [N92.0] 09/09/2017 Secondary dysmenorrhea [N94.5] 09/09/2017 Papanicolaou smear of cervix with low grade squ*09/27/2017 Encounter for insertion of mirena IUD [Z30.430] 10/20/2017 Ventral hernia without obstruction or gangrene *03/07/2018 Hepatic steatosis [K76.0] 03/07/2018 Pancreatic abnormality [Q45.3] 03/07/2018 03/30/2018 Elevated blood pressure reading without diagnos*03/08/2018 Splenomegaly [R16.1] 03/08/2018 Ovarian cyst, right [N83.201] 03/15/2018 Breakthrough bleeding with IUD [N92.1, Z97.5] 01/06/2022 Pelvic cramping [R10.2] 01/06/2022 Encounter for routine checking of intrauterine *09/21/2022 Encounter for screening mammogram for malignant*09/21/2022 Papanicolaou smear of cervix with high grade sq*11/30/2022 Former smoker [Z87.891] 12/24/2022 Pap smear of cervix with high grade squamous in*12/24/2022 Preop testing [Z01.818] 12/24/2022 High grade squamous intraepithelial lesion (HGS*01/24/2023 S/P LEEP [Z98.890] 01/24/2023 Encounter Status:Closed by VITOR SIMS on 12/24/24 Normal [facility] ERCP Biliary/Pancreason 11-18 ERCP Biliary/Pancreas Normal [facility] ERCP Reporton 11-29-2024 ERCP Report Normal [facility] MR/POSTOP.ANEon 11-29-2024 MR/POSTOP.ANE [facility] MR/CHNQNFRW4sg 11-29-2024 MR/POSTOPAN2 [facility] O.R. Fluoro for C-Chris 11-18 O.R. Fluoro for C-Arm Normal [facility] ,Urineon 11-29-2024 Beta HCG ( test) Ql (U) Negative Normal [facility] Comment on above: Result Comment: Very dilute urine specimens, as indicated by a low specificgravity, may not contain textiles sales representative levels of hCG.If is still suspected, a first morning urinespecimen should be collected 48 hours later and tested. Performed By: #### L 400.7600 ####[facility] [address] [place], [place], [address] [employer] II[employer] [facility] Comment on above: Performed By: #### P SSII ####[facility] [address] [place], [address] Urine testOrdered By: Santos Perez on 11-29-2024 HCG ( test) Ql (U) Negative [facility] Comment on above: Very dilute urine sp ecimens, as indicated by a low specificgravity, may not contain textiles sales representative levels of hCG. If is still suspected, a first morning urinespecimen should be collected 48 hours later and tested. L3410.9994on 10-24-2024 [facility] 2 [facility] Comment on above: Order Comment: [facility] TEST CODE (6 DIGIT CODE): [id number] TEST NAME: Phosphatidylethanol (PEth) Result Comment: TEST RESULTS LIMITSPhosphatidylethanol (PEth) PHOSPHATIDYLETHANOL Negative Phosphatidylethanol (PEth) Negative ng/mL Analyzed compound: PEth 16:0/18:1. 7-eswuwqyrx-8-tsenjj-bs-roydwbw-3-phosphoethanol. Analysis performed by Liquid Chromatography with Tandem Mass Spectrometry (LC/MS/MS). Detection limit: 20 ng/mL PEth levels in excess of 20 ng/mL are considered evidence of moderate to heavy ethanol consumption. However, the Center for Substance Abuse Treatment (CSAT) advises caution in interpretation and use of biomarkers alone to assess alcohol use. Results should be interpreted in the context of all available clinical and behavioral information. Reference: Substance Abuse and Mental Health Services Administration (2012). The Role of Biomarkers in the Treatment of Alcohol Use Disorders, 2012 Revision. Advisory, Volume 11, Issue 2. This test was developed and its performance characteristics determined by [employer]. It has not been cleared or approved by the Food and Drug Administra TESTING PERFORMED AT [facility]. ORIGINAL REPORT ON FILE IN LAB CONTAINS ADDITIONAL TEST SITE INFORMATION. Performed By: #### L 501.2450, L501.6710, L3410.9994 ####[facility] [address] [place], [address] Culture, Blood (WB)on 2024 CUB No growth in 5 days. [facility] Comment on above: Performed By: #### M 200.1000 ####[facility] [address] [place], [address] Anion gap in Serum or Plasma Ordered By: Kris Gibbs on 10-22-2024 Anion gap [Moles/Vol] 12 mmol/L 5-15 [facility] BUN/creatinine ratioOrdered By: Kris Gibbs on 10-22-2024 Urea nitrogen/Creatinine [Mass ratio] 8.8 mg/mg Low 10-20 [facility] Bilirubin, totalOrdered By: Kris Gibbs on 10-22-2024 Bilirubin [Mass/Vol] 0.29 mg/dL 0.00-1.30 [facility] CBC-Complete Blood Cnt No Di ffon 10-22-2024 Erythrocyte distribution width (RBC) [Ratio] 14.1 % Normal 11.6-14.6 [facility] Comment on above: Performed By: #### L 500.4050, L100.0500 ####[facility] [address] [place], [address] Hematocrit (Bld) [Volume fraction] 38.4 % Normal 37-47 [facility] Comment on above: Performed By: #### L 500.4050, L100.0500 ####[facility] [address] [place], [address] Hemoglobin (Bld) [Mass/Vol] 12.1 g/dL Normal 12.0-15.0 [facility] Comment on above: Performed By: #### L 500.4050, L100.0500 ####[facility] [address] [place], [address] MCH (RBC) [Entitic mass] 26.0 pg Low 27.0-32.0 [facility] Comment on above: Performed By: #### L 500.4050, L100.0500 ####[facility] [address] [place], [address] MCHC (RBC) [Mass/Vol] 31.5 g/dL Low 32-36 [facility] Comment on above: Performed By: #### L 500.4050, L100.0500 ####[facility] [address] [place], [address] MCV (RBC) [Entitic vol] 82.4 fL Normal 81-99 [facility] Comment on above: Performed By: #### L 500.4050, L100.0500 ####[facility] [address] [place], [address] Platelet mean volume (Bld) [Entitic vol] 9.5 fL Normal 6.2-12.0 [facility] Comment on above: Performed By: #### L 500.4050, L100.0500 ####[facility] [address] [place], [address] Platelets (Bld) [#/Vol] 393 10*3/uL Normal 150-450 [facility] Comment on above: Performed By: #### L 500.4050, L100.0500 ####[facility] [address] [place], [address] RBC (Bld) [#/Vol] 4.66 10*6/uL Normal 4.2-5.4 [facility] Comment on above: Performed By: #### L 500.4050, L100.0500 ####[facility] [address] [place], [address] RDW SD 41.9 fl Normal 35.1-43.9 [facility] Comment on above: Performed By: #### L 500.4050, L100.0500 ####[facility] [address] [place], [address] WBC (Bld) [#/Vol] 8.0 10*3/uL Normal 4.4-11.0 [facility] Comment on above: Performed By: #### L 500.4050, L100.0500 ####[facility] [address] [place], [address] Carbon dioxide, total [Moles /volume] in Central venous bloodOrdered By: Kris Gibbs on 10-22-2024 CO2 [Moles/Vol] 28.3 mmol/L 21.0-32.0 [facility] Chloride assayOrdered By: Castro Gibbs on 10-22-2024 Chloride [Moles/Vol] 97 mmol/L Low 98-108 [facility] Comprehensive Metabolic Prof ilon 10-22-2024 Albumin [Mass/Vol] 4.0 g/dL Normal 3.5-5.0 [facility] Comment on above: Performed By: #### L 500.4050, L100.0500 ####[facility] [address] [place], [address] Albumin/Globulin [Mass ratio] 1.2 {ratio} Normal 0.9-2.4 [facility] Comment on above: Performed By: #### L 500.4050, L100.0500 ####[facility] [address] [place], [address] ALK PHOS 102 U/L Normal 35-104 [facility] Comment on above: Performed By: #### L 500.4050, L100.0500 ####[facility] [address] [place], [address] ALT [Catalytic activity/Vol] 25 U/L Normal <=34 [facility] Comment on above: Performed By: #### L 500.4050, L100.0500 ####[facility] [address] [place], [address] AST [Catalytic activity/Vol] 32 U/L Normal <=31 [facility] Comment on above: Performed By: #### L 500.4050, L100.0500 ####[facility] [address] [place], [address] Bilirubin [Mass/Vol] 0.29 mg/dL Normal 0.00-1.30 [facility] Comment on above: Performed By: #### L 500.4050, L100.0500 ####[facility] [address] [place], [address] BUN/CRE 8.8 RATIO Low 10-20 [facility] Comment on above: Performed By: #### L 500.4050, L100.0500 ####[facility] [address] [place], [address] Calcium [Mass/Vol] 10.6 mg/dL Normal 7.6-11.0 [facility] Comment on above: Performed By: #### L 500.4050, L100.0500 ####[facility] [address] [place], [address] Chloride [Moles/Vol] 97 mmol/L Low 98-108 [facility] Comment on above: Performed By: #### L 500.4050, L100.0500 ####[facility] [address] [place], [address] CO2 [Moles/Vol] 28.3 mmol/L Normal 21.0-32.0 [facility] Comment on above: Performed By: #### L 500.4050, L100.0500 ####[facility] [address] [place], [address] Creatinine [Mass/Vol] 0.59 mg/dL Low 0.70-1.20 [facility] Comment on above: Performed By: #### L 500.4050, L100.0500 ####[facility] [address] [place], [address] ECRCL 134.66 ml/min Normal 50-250 [facility] Comment on above: Performed By: #### L 500.4050, L100.0500 ####[facility] [address] [place], [address] GAP 12 Normal 5-15 [facility] Comment on above: Performed By: #### L 500.4050, L100.0500 ####[facility] [address] [place], [address] GFR/1.73 sq M.predicted among non-blacks MDRD (S/P/Bld) [Vol rate/Area] 114 mL/min/{1.73_m2} Normal >60 [facility] Comment on above: Result Comment: mL/m in/1.73m2 CKD-EPI Creatinine Equation (2020) Performed By: #### L 500.4050, L100.0500 ####[facility] [address] [place], [address] Globulin (S) [Mass/Vol] 3.3 g/dL Normal 2.2-4.2 [facility] Comment on above: Performed By: #### L 500.4050, L100.0500 ####[facility] [address] [place], [address] Glucose [Mass/Vol] 106 mg/dL High 70-99 [facility] Comment on above: Performed By: #### L 500.4050, L100.0500 ####[facility] [address] [place], [address] Potassium [Moles/Vol] 3.6 mmol/L Normal 3.3-5.1 [facility] Comment on above: Performed By: #### L 500.4050, L100.0500 ####[facility] [address] [place], [address] Sodium [Moles/Vol] 137 mmol/L Normal 133-145 [facility] Comment on above: Performed By: #### L 500.4050, L100.0500 ####[facility] [address] [place], [address] T PROT 7.3 g/dL Normal 5.9-8.4 [facility] Comment on above: Performed By: #### L 500.4050, L100.0500 ####[facility] [address] [place], [address] Urea nitrogen [Mass/Vol] 5 mg/dL Normal 4-19 [facility] Comment on above: Performed By: #### L 500.4050, L100.0500 ####[facility] [address] [place], [address] Discharge Instructionon Discharge Instruction Normal [facility] Erythrocyte distribution wid th ratioOrdered By: Kris Gibbs on 10-22-2024 Erythrocyte distribution width (RBC) [Ratio] 14.1 % 11.6-14.6 [facility] Erythrocyte distribution wid th standard deviationOrdered By: Kris Gibbs on 10-22-2024 Erythrocyte distribution width (RBC) [Ratio] 41.9 fl 35.1-43.9 [facility] Glomerular filtration rate ( GFR) estimation/1.73 sq m using serum, plasma, or whole bOrdered By: Kris Gibbs on 10-22-2024 GFR/1.73 sq M.predicted among non-blacks MDRD (S/P/Bld) [Vol rate/Area] 114 mL/min/{1.73_m2} >60 [facility] Hematocrit Auto (Bld) [Volum e fraction]Ordered By: Kris Gibbs on 10-22-2024 Hematocrit (Bld) [Volume fraction] 38.4 % 37-47 [facility] Hemoglobin measurementOrdere d By: Kris Gibbs on 10-22-2024 Hemoglobin (Bld) [Mass/Vol] 12.1 g/dL 12.0-15.0 [facility] L3410.9996on 10-22-2024 [facility] Misc. 3 COMMENT Normal . [facility] Comment on above: Order Comment: LAV/W B/RT Result Comment: Test Ordered: [id number] Pancreatitis: 3-gene PanelRouting TG Reference Range: .Please refer to the following specimen for additional labresults.[id number] at: - [facility] [id number] [place], [place] [id number] Director: Yovani Pepper PhD, Phone: [phone] at: TG - [facility] [id number] [place], [place] [id number] Director: Jeanie Hopson [facility], Phone: [phone] Performed By: #### L 3410.9996 ####[facility] [address] [place], [address] MCV (mean corpuscular volume ) determinationOrdered By: Kris Gibbs on 10-22-2024 MCV (RBC) [Entitic vol] 82.4 fL 81-99 [facility] Mean corpuscular hemoglobin (MCH) determinationOrdered By: Kris Gibbs on 10-22-2024 MCH (RBC) [Entitic mass] 26.0 pg Low 27.0-32.0 [facility] No Panel InformationOrdered By: Kris Gibbs on 10-22-2024 32 U/L <32 [facility] Platelet countOrdered By: Castro Gibbs on 10-22-2024 Platelets (Bld) [#/Vol] 393 10*3/uL 150-450 [facility] Potassium measurement (mass/ volume)Ordered By: Kris Gibbs on 10-22-2024 Potassium (Unsp spec) [Mass/Vol] 3.6 mmol/L 3.3-5.1 [facility] RBC Auto (Bld) [#/Vol]Ordere d By: Kris Gibbs on 10-22-2024 RBC (Bld) [#/Vol] 4.66 10*6/uL 4.2-5.4 [facility] Serum creatinine measurement (mass/volume)Ordered By: Kris Gibbs on 10-22-2024 Creatinine [Mass/Vol] 0.59 mg/dL Low 0.70-1.20 [facility] Serum globulin measurementOr dered By: Kris Gibbs on 10-22-2024 Globulin (S) [Mass/Vol] 3.3 g/dL 2.2-4.2 [facility] Serum glucose measurement (m ass/volume)Ordered By: Kris Gibbs on 10-22-2024 Glucose [Mass/Vol] 106 mg/dL High 70-99 [facility] Serum or plasma alanine barton otransferase (ALT) measurementOrdered By: Kris Gibbs on 10-22-2024 ALT [Catalytic activity/Vol] 25 U/L <35 [facility] Serum or plasma albumin chris urement (mass/volume)Ordered By: Kris Gibbs on 10-22-2024 Albumin [Mass/Vol] 4.0 g/dL 3.5-5.0 [facility] Rehabilitation Serum or plasma albumin/glob ulin mass ratioOrdered By: Kris Gibbs on 10-22-2024 Albumin/Globulin [Mass ratio] 1.2 {ratio} 0.9-2.4 [facility] Serum or plasma alkaline saeed sphatase measurementOrdered By: Kris Gibbs on 10-22-2024 ALP [Catalytic activity/Vol] 102 U/L 35-104 [facility] Serum or plasma calcium chris urement (mass/volume)Ordered By: Kris Gibbs on 10-22-2024 Calcium [Mass/Vol] 10.6 mg/dL 7.6-11.0 [facility] Serum or plasma urea nitroge n measurement (mass/volume)Ordered By: Kris Gibbs on 10-22-2024 Urea nitrogen [Mass/Vol] 5 mg/dL 4-19 [facility] Sodium levelOrdered By: Vinicio Gibbs on 10-22-2024 Sodium [Moles/Vol] 137 mmol/L 133-145 [facility] Total proteinOrdered By: Samia Gibbs on 10-22-2024 Protein [Mass/Vol] 7.3 g/dL 5.9-8.4 [facility] White blood cell (WBC) count Ordered By: Kris iGbbs on 10-22-2024 WBC (Bld) [#/Vol] 8.0 10*3/uL 4.4-11.0 [facility] CBC-Complete Blood Cnt No Di ffon 10-21-2024 HCT Normal 37-47 [facility] Comment on above: Result Comment: Quinn rodriges via OM: Ordered Performed By: #### L 100.0500 ####[facility] [address] [place], [address] HGB Normal 12.0-15.0 [facility] Comment on above: Result Comment: Canc elled via OM: MD Ordered Performed By: #### L 100.0500 ####[facility] [address] [place], [address] MCH Normal 27.0-32.0 [facility] Comment on above: Result Comment: Canc elled via OM: MD Ordered Performed By: #### L 100.0500 ####[facility] [address] [place], [address] MCHC Normal 32-36 [facility] Comment on above: Result Comment: Canc elled via OM: MD Ordered Performed By: #### L 100.0500 ####[facility] [address] [place], [address] MCV Normal 81-99 [facility] Comment on above: Result Comment: Canc elled via OM: MD Ordered Performed By: #### L 100.0500 ####[facility] [address] [place], [address] PLT Normal 150-450 [facility] Comment on above: Result Comment: Canc elled via OM: MD Ordered Performed By: #### L 100.0500 ####[facility] [address] [place], [address] RBC Normal 4.2-5.4 [facility] Comment on above: Result Comment: Canc elled via OM: MD Ordered Performed By: #### L 100.0500 ####[facility] [address] [place], [address] RDW CV Normal 11.6-14.6 [facility] Comment on above: Result Comment: Canc elled via OM: MD Ordered Performed By: #### L 100.0500 ####[facility] [address] [place], [address] RDW SD Normal 35.1-43.9 [facility] Comment on above: Result Comment: Canc elled via OM: MD Ordered Performed By: #### L 100.0500 ####[facility] [address] [place], [address] WBC Normal 4.4-11.0 [facility] Comment on above: Result Comment: Canc elled via OM: MD Ordered Performed By: #### L 100.0500 ####[facility] [address] [place], [address] Erythrocyte distribution width (RBC) [Ratio] 14.0 % Normal 11.6-14.6 [facility] Comment on above: Performed By: #### L 500.4050, L100.0500 ####[facility] [address] [place], [address] Hematocrit (Bld) [Volume fraction] 33.0 % Low 37-47 [facility] Comment on above: Performed By: #### L 500.4050, L100.0500 ####[facility] [address] [place], [address] Hemoglobin (Bld) [Mass/Vol] 10.5 g/dL Low 12.0-15.0 [facility] Comment on above: Performed By: #### L 500.4050, L100.0500 ####[facility] [address] [place], [address] MCH (RBC) [Entitic mass] 26.4 pg Low 27.0-32.0 [facility] Comment on above: Performed By: #### L 500.4050, L100.0500 ####[facility] [address] [place], [address] MCHC (RBC) [Mass/Vol] 31.8 g/dL Low 32-36 [facility] Comment on above: Performed By: #### L 500.4050, L100.0500 ####[facility] [address] [place], [address] MCV (RBC) [Entitic vol] 83.1 fL Normal 81-99 [facility] Comment on above: Performed By: #### L 500.4050, L100.0500 ####[facility] [address] [place], [address] Platelet mean volume (Bld) [Entitic vol] 9.9 fL Normal 6.2-12.0 [facility] Comment on above: Performed By: #### L 500.4050, L100.0500 ####[facility] [address] [place], [address] Platelets (Bld) [#/Vol] 294 10*3/uL Normal 150-450 [facility] Comment on above: Performed By: #### L 500.4050, L100.0500 ####[facility] [address] [place], [address] RBC (Bld) [#/Vol] 3.97 10*6/uL Low 4.2-5.4 [facility] Comment on above: Performed By: #### L 500.4050, L100.0500 ####[facility] [address] [place], [address] RDW SD 42.3 fl Normal 35.1-43.9 [facility] Comment on above: Performed By: #### L 500.4050, L100.0500 ####[facility] [address] [place], [address] WBC (Bld) [#/Vol] 7.2 10*3/uL Normal 4.4-11.0 [facility] Comment on above: Performed By: #### L 500.4050, L100.0500 ####[facility] [address] [place], [address] Comprehensive Metabolic Prof cliff 10-21-2024 ALB Normal 3.5-5.0 [facility] Comment on above: Result Comment: Canc elled via OM: MD Ordered Performed By: #### L 500.4050 ####[facility] [address] [place], [address] ALK PHOS Normal 35-104 [facility] Comment on above: Result Comment: Canc elled via OM: MD Ordered Performed By: #### L 500.4050 ####[facility] [address] [place], [address] ALT Normal <=34 [facility] Comment on above: Result Comment: Canc elled via OM: MD Ordered Performed By: #### L 500.4050 ####[facility] [address] [place], [address] AST Normal <=31 [facility] Comment on above: Result Comment: Canc elled via OM: MD Ordered Performed By: #### L 500.4050 ####[facility] [address] [place], [address] BUN Normal 4-19 [facility] Comment on above: Result Comment: Canc elled via OM: MD Ordered Performed By: #### L 500.4050 ####[facility] [address] [place], [address] BUN/CRE Normal 10-20 [facility] Comment on above: Result Comment: Canc elled via OM: MD Ordered Performed By: #### L 500.4050 ####[facility] [address] [place], [address] Calcium Normal 7.6-11.0 [facility] Comment on above: Result Comment: Canc elled via OM: MD Ordered Performed By: #### L 500.4050 ####[facility] [address] [place], [address] CL Normal 98-108 [facility] Comment on above: Result Comment: Canc elled via OM: MD Ordered Performed By: #### L 500.4050 ####[facility] [address] [place], [address] CO2 Normal 21.0-32.0 [facility] Comment on above: Result Comment: Canc elled via OM: MD Ordered Performed By: #### L 500.4050 ####[facility] [address] [place], [address] CREAT,SERUM Normal 0.70-1.20 [facility] Comment on above: Result Comment: Canc elled via OM: MD Ordered Performed By: #### L 500.4050 ####[facility] [address] [place], [address] eGFR Normal >60 [facility] Comment on above: Result Comment: Canc elled via OM: MD Ordered Performed By: #### L 500.4050 ####[facility] [address] [place], [address] GAP Normal 5-15 [facility] Comment on above: Result Comment: Canc elled via OM: MD Ordered Performed By: #### L 500.4050 ####[facility] [address] [place], [address] GLU Normal 70-99 [facility] Comment on above: Result Comment: Canc elled via OM: MD Ordered Performed By: #### L 500.4050 ####[facility] [address] [place], [address] Potassium Normal 3.3-5.1 [facility] Comment on above: Result Comment: Canc elled via OM: MD Ordered Performed By: #### L 500.4050 ####[facility] [address] [place], [address] T BILI Normal 0.00-1.30 [facility] Comment on above: Result Comment: Canc elled via OM: MD Ordered Performed By: #### L 500.4050 ####[facility] [address] [place], [address] T PROT Normal 5.9-8.4 [facility] Comment on above: Result Comment: Canc elled via OM: MD Ordered Performed By: #### L 500.4050 ####[facility] [address] [place], [address] Comprehensive Metabolic Profil Normal 133-145 [facility] Comment on above: Result Comment: Canc elled via OM: MD Ordered Performed By: #### L 500.4050 ####[facility] [address] [place], [address] Albumin [Mass/Vol] 3.5 g/dL Normal 3.5-5.0 [facility] Comment on above: Performed By: #### L 500.4050, L100.0500 ####[facility] [address] [place], [address] Albumin/Globulin [Mass ratio] 1.2 {ratio} Normal 0.9-2.4 [facility] Comment on above: Performed By: #### L 500.4050, L100.0500 ####[facility] [address] [place], [address] ALK PHOS 91 U/L Normal 35-104 [facility] Comment on above: Performed By: #### L 500.4050, L100.0500 ####[facility] [address] [place], [address] ALT [Catalytic activity/Vol] 21 U/L Normal <=34 [facility] Comment on above: Performed By: #### L 500.4050, L100.0500 ####[facility] [address] [place], [address] AST [Catalytic activity/Vol] 32 U/L Normal <=31 [facility] Comment on above: Result Comment: Hemo lysis present, Results??could be affected.?? Performed By: #### L 500.4050, L100.0500 ####[facility] [address] [place], [address] Bilirubin [Mass/Vol] 0.22 mg/dL Normal 0.00-1.30 [facility] Comment on above: Performed By: #### L 500.4050, L100.0500 ####[facility] [address] [place], [address] BUN/CRE 10.2 RATIO Normal 10-20 [facility] Comment on above: Performed By: #### L 500.4050, L100.0500 ####[facility] [address] [place], [address] Calcium [Mass/Vol] 10.2 mg/dL Normal 7.6-11.0 [facility] Comment on above: Performed By: #### L 500.4050, L100.0500 ####[facility] [address] [place], [address] Chloride [Moles/Vol] 98 mmol/L Normal 98-108 [facility] Comment on above: Performed By: #### L 500.4050, L100.0500 ####[facility] [address] [place], [address] CO2 [Moles/Vol] 27.8 mmol/L Normal 21.0-32.0 [facility] Comment on above: Performed By: #### L 500.4050, L100.0500 ####[facility] [address] [place], [address] Creatinine [Mass/Vol] 0.45 mg/dL Low 0.70-1.20 [facility] Comment on above: Performed By: #### L 500.4050, L100.0500 ####[facility] [address] [place], [address] ECRCL 176.55 ml/min Normal 50-250 [facility] Comment on above: Performed By: #### L 500.4050, L100.0500 ####[facility] [address] [place], [address] GAP 11 Normal 5-15 [facility] Comment on above: Performed By: #### L 500.4050, L100.0500 ####[facility] [address] [place], [address] GFR/1.73 sq M.predicted among non-blacks MDRD (S/P/Bld) [Vol rate/Area] 121 mL/min/{1.73_m2} Normal >60 [facility] Comment on above: Result Comment: mL/m in/1.73m2 CKD-EPI Creatinine Equation (2020) Performed By: #### L 500.4050, L100.0500 ####[facility] [address] [place], [address] Globulin (S) [Mass/Vol] 3.0 g/dL Normal 2.2-4.2 [facility] Comment on above: Performed By: #### L 500.4050, L100.0500 ####[facility] [address] [place], [address] Glucose [Mass/Vol] 106 mg/dL High 70-99 [facility] Comment on above: Performed By: #### L 500.4050, L100.0500 ####[facility] [address] [place], [address] Potassium [Moles/Vol] 4.0 mmol/L Normal 3.3-5.1 [facility] Comment on above: Result Comment: Hemo lysis present, Results??could be affected.?? Performed By: #### L 500.4050, L100.0500 ####[facility] [address] [place], [address] Sodium [Moles/Vol] 137 mmol/L Normal 133-145 [facility] Comment on above: Performed By: #### L 500.4050, L100.0500 ####[facility] [address] [place], [address] T PROT 6.5 g/dL Normal 5.9-8.4 [facility] Comment on above: Performed By: #### L 500.4050, L100.0500 ####[facility] [address] [place], [address] Urea nitrogen [Mass/Vol] 5 mg/dL Normal 4-19 [facility] Comment on above: Performed By: #### L 500.4050, L100.0500 ####[facility] [address] [place], [address] Abdomen/Pelvis W IV Cont ONL Yon 10-20-2024 Abdomen/Pelvis W IV Cont ONLY Normal [facility] CBC-Complete Blood Cnt No Di ffon 10-20-2024 Erythrocyte distribution width (RBC) [Ratio] 14.4 % Normal 11.6-14.6 [facility] Comment on above: Performed By: #### L 500.4050, L100.0500 ####[facility] [address] [place], [address] Hematocrit (Bld) [Volume fraction] 31.8 % Low 37-47 [facility] Comment on above: Performed By: #### L 500.4050, L100.0500 ####[facility] [address] [place], [address] Hemoglobin (Bld) [Mass/Vol] 10.2 g/dL Low 12.0-15.0 [facility] Comment on above: Performed By: #### L 500.4050, L100.0500 ####[facility] [address] [place], [address] MCH (RBC) [Entitic mass] 26.7 pg Low 27.0-32.0 [facility] Comment on above: Performed By: #### L 500.4050, L100.0500 ####[facility] [address] [place], [address] MCHC (RBC) [Mass/Vol] 32.1 g/dL Normal 32-36 [facility] Comment on above: Performed By: #### L 500.4050, L100.0500 ####[facility] [address] [place], [address] MCV (RBC) [Entitic vol] 83.2 fL Normal 81-99 [facility] Comment on above: Performed By: #### L 500.4050, L100.0500 ####[facility] [address] [place], [address] Platelet mean volume (Bld) [Entitic vol] 9.3 fL Normal 6.2-12.0 [facility] Comment on above: Performed By: #### L 500.4050, L100.0500 ####[facility] [address] [place], [address] Platelets (Bld) [#/Vol] 274 10*3/uL Normal 150-450 [facility] Comment on above: Performed By: #### L 500.4050, L100.0500 ####[facility] [address] [place], [address] RBC (Bld) [#/Vol] 3.82 10*6/uL Low 4.2-5.4 [facility] Comment on above: Performed By: #### L 500.4050, L100.0500 ####[facility] [address] [place], [address] RDW SD 43.7 fl Normal 35.1-43.9 [facility] Comment on above: Performed By: #### L 500.4050, L100.0500 ####[facility] [address] [place], [address] WBC (Bld) [#/Vol] 6.9 10*3/uL Normal 4.4-11.0 [facility] Comment on above: Performed By: #### L 500.4050, L100.0500 ####[facility] [address] [place], [address] CRPon 10-20-2024 C-REACTIVE PROT 47.10 mg/L High 0.0-3.0 [facility] Comment on above: Performed By: #### L 101.9900, L501.6710 ####[facility] [address] [place], [address] Comprehensive Metabolic Prof ilon 10-20-2024 Albumin [Mass/Vol] 3.5 g/dL Normal 3.5-5.0 [facility] Comment on above: Performed By: #### L 500.4050, L100.0500 ####[facility] [address] [place], [address] Albumin/Globulin [Mass ratio] 1.2 {ratio} Normal 0.9-2.4 [facility] Comment on above: Performed By: #### L 500.4050, L100.0500 ####[facility] [address] [place], [address] ALK PHOS 84 U/L Normal 35-104 [facility] Comment on above: Performed By: #### L 500.4050, L100.0500 ####[facility] [address] [place], [address] ALT [Catalytic activity/Vol] 17 U/L Normal <=34 [facility] Comment on above: Performed By: #### L 500.4050, L100.0500 ####[facility] [address] [place], [address] AST [Catalytic activity/Vol] 16 U/L Normal <=31 [facility] Comment on above: Performed By: #### L 500.4050, L100.0500 ####[facility] [address] [place], [address] Bilirubin [Mass/Vol] 0.20 mg/dL Normal 0.00-1.30 [facility] Comment on above: Performed By: #### L 500.4050, L100.0500 ####[facility] [address] [place], [address] BUN/CRE 13.6 RATIO Normal 10-20 [facility] Comment on above: Performed By: #### L 500.4050, L100.0500 ####[facility] [address] [place], [address] Calcium [Mass/Vol] 9.9 mg/dL Normal 7.6-11.0 [facility] Comment on above: Performed By: #### L 500.4050, L100.0500 ####[facility] [address] [place], [address] Chloride [Moles/Vol] 99 mmol/L Normal 98-108 [facility] Comment on above: Performed By: #### L 500.4050, L100.0500 ####[facility] [address] [place], [address] CO2 [Moles/Vol] 27.6 mmol/L Normal 21.0-32.0 [facility] Comment on above: Performed By: #### L 500.4050, L100.0500 ####[facility] [address] [place], [address] Creatinine [Mass/Vol] 0.48 mg/dL Low 0.70-1.20 [facility] Comment on above: Performed By: #### L 500.4050, L100.0500 ####[facility] [address] [place], [address] ECRCL 165.51 ml/min Normal 50-250 [facility] Comment on above: Performed By: #### L 500.4050, L100.0500 ####[facility] [address] [place], [address] GAP 10 Normal 5-15 [facility] Comment on above: Performed By: #### L 500.4050, L100.0500 ####[facility] [address] [place], [address] GFR/1.73 sq M.predicted among non-blacks MDRD (S/P/Bld) [Vol rate/Area] 120 mL/min/{1.73_m2} Normal >60 [facility] Comment on above: Result Comment: mL/m in/1.73m2 CKD-EPI Creatinine Equation (2020) Performed By: #### L 500.4050, L100.0500 ####[facility] [address] [place], [address] Globulin (S) [Mass/Vol] 2.9 g/dL Normal 2.2-4.2 [facility] Comment on above: Performed By: #### L 500.4050, L100.0500 ####[facility] [address] [place], [address] Glucose [Mass/Vol] 100 mg/dL High 70-99 [facility] Comment on above: Performed By: #### L 500.4050, L100.0500 ####[facility] [address] [place], [address] Potassium [Moles/Vol] 3.6 mmol/L Normal 3.3-5.1 [facility] Comment on above: Performed By: #### L 500.4050, L100.0500 ####[facility] [address] [place], [address] Sodium [Moles/Vol] 137 mmol/L Normal 133-145 [facility] Comment on above: Performed By: #### L 500.4050, L100.0500 ####[facility] [address] [place], [address] T PROT 6.4 g/dL Normal 5.9-8.4 [facility] Comment on above: Performed By: #### L 500.4050, L100.0500 ####[facility] [address] [place], [address] Urea nitrogen [Mass/Vol] 6 mg/dL Normal 4-19 [facility] Comment on above: Performed By: #### L 500.4050, L100.0500 ####[facility] [address] [place], [address] Erythrocyte Sed Rateon 10-20 SED RATE 57 mm/hr [facility] 0-30 [facility] Comment on above: Performed By: #### L 101.9900, L501.6710 ####[facility] [address] [place], [address] Erythrocyte sedimentation ra teOrdered By: Kris Gibbs on 10-20-2024 ESR (Bld) [Velocity] 57 mm/h High 0-30 [facility] Serum or plasma C reactive p rotein measurement (mass/volume)Ordered By: Kris Gibbs on 10-20-2024 CRP [Mass/Vol] 47.10 mg/L High 0.0-3.0 [facility] CBC-Complete Blood Cnt No Di ffon 10-19-2024 Erythrocyte distribution width (RBC) [Ratio] 14.7 % High 11.6-14.6 [facility] Comment on above: Performed By: #### L 500.4050, L100.0500 ####[facility] [address] [place], [address] Hematocrit (Bld) [Volume fraction] 30.9 % Low 37-47 [facility] Comment on above: Performed By: #### L 500.4050, L100.0500 ####[facility] [address] [place], [address] Hemoglobin (Bld) [Mass/Vol] 9.7 g/dL Low 12.0-15.0 [facility] Comment on above: Performed By: #### L 500.4050, L100.0500 ####[facility] [address] [place], [address] MCH (RBC) [Entitic mass] 26.8 pg Low 27.0-32.0 [facility] Comment on above: Performed By: #### L 500.4050, L100.0500 ####[facility] [address] [place], [address] MCHC (RBC) [Mass/Vol] 31.4 g/dL Low 32-36 [facility] Comment on above: Performed By: #### L 500.4050, L100.0500 ####[facility] [address] [place], [address] MCV (RBC) [Entitic vol] 85.4 fL Normal 81-99 [facility] Comment on above: Performed By: #### L 500.4050, L100.0500 ####[facility] [address] [place], [address] Platelet mean volume (Bld) [Entitic vol] 10.2 fL Normal 6.2-12.0 [facility] Comment on above: Performed By: #### L 500.4050, L100.0500 ####[facility] [address] [place], [address] Platelets (Bld) [#/Vol] 232 10*3/uL Normal 150-450 [facility] Comment on above: Performed By: #### L 500.4050, L100.0500 ####[facility] [address] [place], [address] RBC (Bld) [#/Vol] 3.62 10*6/uL Low 4.2-5.4 [facility] Comment on above: Performed By: #### L 500.4050, L100.0500 ####[facility] [address] [place], [address] RDW SD 45.7 fl High 35.1-43.9 [facility] Comment on above: Performed By: #### L 500.4050, L100.0500 ####[facility] [address] [place], [address] WBC (Bld) [#/Vol] 8.2 10*3/uL Normal 4.4-11.0 [facility] Comment on above: Performed By: #### L 500.4050, L100.0500 ####[facility] [address] [place], [address] HCT Normal 37-47 [facility] Comment on above: Result Comment: Canc elled via OM: MD Ordered Performed By: #### L 100.0500 ####[facility] [address] [place], [address] HGB Normal 12.0-15.0 [facility] Comment on above: Result Comment: Canc elled via OM: MD Ordered Performed By: #### L 100.0500 ####[facility] [address] [place], [address] MCH Normal 27.0-32.0 [facility] Comment on above: Result Comment: Canc elled via OM: MD Ordered Performed By: #### L 100.0500 ####[facility] [address] [place], [address] MCHC Normal 32-36 [facility] Comment on above: Result Comment: Canc elled via OM: MD Ordered Performed By: #### L 100.0500 ####[facility] [address] [place], [address] MCV Normal 81-99 [facility] Comment on above: Result Comment: Canc elled via OM: MD Ordered Performed By: #### L 100.0500 ####[facility] [address] [place], [address] PLT Normal 150-450 [facility] Comment on above: Result Comment: Canc elled via OM: MD Ordered Performed By: #### L 100.0500 ####[facility] [address] [place], [address] RBC Normal 4.2-5.4 [facility] Comment on above: Result Comment: Canc elled via OM: MD Ordered Performed By: #### L 100.0500 ####[facility] [address] [place], [address] RDW CV Normal 11.6-14.6 [facility] Comment on above: Result Comment: Canc elled via OM: MD Ordered Performed By: #### L 100.0500 ####[facility] [address] [place], [address] RDW SD Normal 35.1-43.9 [facility] Comment on above: Result Comment: Canc elled via OM: MD Ordered Performed By: #### L 100.0500 ####[facility] [address] [place], [address] WBC Normal 4.4-11.0 [facility] Comment on above: Result Comment: Quinn rodriges via OM: Ordered Performed By: #### L 100.0500 ####[facility] [address] [place], [address] Comprehensive Metabolic Prof ilon 10-19-2024 Albumin [Mass/Vol] 3.2 g/dL Low 3.5-5.0 [facility] Comment on above: Performed By: #### L 500.4050, L100.0500 ####[facility] [address] [place], [address] Albumin/Globulin [Mass ratio] 1.1 {ratio} Normal 0.9-2.4 [facility] Comment on above: Performed By: #### L 500.4050, L100.0500 ####[facility] [address] [place], [address] ALK PHOS 89 U/L Normal 35-104 [facility] Comment on above: Performed By: #### L 500.4050, L100.0500 ####[facility] [address] [place], [address] ALT [Catalytic activity/Vol] 19 U/L Normal <=34 [facility] Comment on above: Performed By: #### L 500.4050, L100.0500 ####[facility] [address] [place], [address] AST [Catalytic activity/Vol] 17 U/L Normal <=31 [facility] Comment on above: Performed By: #### L 500.4050, L100.0500 ####[facility] [address] [place], [address] Bilirubin [Mass/Vol] 0.21 mg/dL Normal 0.00-1.30 [facility] Comment on above: Performed By: #### L 500.4050, L100.0500 ####[facility] [address] [place], [address] BUN/CRE 25.2 RATIO High 10-20 [facility] Comment on above: Performed By: #### L 500.4050, L100.0500 ####[facility] [address] [place], [address] Calcium [Mass/Vol] 9.5 mg/dL Normal 7.6-11.0 [facility] Comment on above: Performed By: #### L 500.4050, L100.0500 ####[facility] [address] [place], [address] Chloride [Moles/Vol] 102 mmol/L Normal 98-108 [facility] Comment on above: Performed By: #### L 500.4050, L100.0500 ####[facility] [address] [place], [address] CO2 [Moles/Vol] 24.4 mmol/L Normal 21.0-32.0 [facility] Comment on above: Performed By: #### L 500.4050, L100.0500 ####[facility] [address] [place], [address] Creatinine [Mass/Vol] 0.61 mg/dL Low 0.70-1.20 [facility] Comment on above: Performed By: #### L 500.4050, L100.0500 ####[facility] [address] [place], [address] ECRCL 130.24 ml/min Normal 50-250 [facility] Comment on above: Performed By: #### L 500.4050, L100.0500 ####[facility] [address] [place], [address] GAP 10 Normal 5-15 [facility] Comment on above: Performed By: #### L 500.4050, L100.0500 ####[facility] [address] [place], [address] GFR/1.73 sq M.predicted among non-blacks MDRD (S/P/Bld) [Vol rate/Area] 113 mL/min/{1.73_m2} Normal >60 [facility] Comment on above: Result Comment: mL/m in/1.73m2 CKD-EPI Creatinine Equation (2020) Performed By: #### L 500.4050, L100.0500 ####[facility] [address] [place], [address] Globulin (S) [Mass/Vol] 2.8 g/dL Normal 2.2-4.2 [facility] Comment on above: Performed By: #### L 500.4050, L100.0500 ####[facility] [address] [place], [address] Glucose [Mass/Vol] 93 mg/dL Normal 70-99 [facility] Comment on above: Performed By: #### L 500.4050, L100.0500 ####[facility] [address] [place], [address] Potassium [Moles/Vol] 3.8 mmol/L Normal 3.3-5.1 [facility] Comment on above: Performed By: #### L 500.4050, L100.0500 ####[facility] [address] [place], [address] Sodium [Moles/Vol] 136 mmol/L Normal 133-145 [facility] Comment on above: Performed By: #### L 500.4050, L100.0500 ####[facility] [address] [place], [address] T PROT 6.0 g/dL Normal 5.9-8.4 [facility] Comment on above: Performed By: #### L 500.4050, L100.0500 ####[facility] [address] [place], [address] Urea nitrogen [Mass/Vol] 15 mg/dL Normal 4-19 [facility] Comment on above: Performed By: #### L 500.4050, L100.0500 ####[facility] [address] [place], [address] ALB Normal 3.5-5.0 [facility] Comment on above: Result Comment: Canc elled via OM: MD Ordered Performed By: #### L 500.4050 ####[facility] [address] [place], [address] ALK PHOS Normal 35-104 [facility] Comment on above: Result Comment: Canc elled via OM: MD Ordered Performed By: #### L 500.4050 ####[facility] [address] [place], [address] ALT Normal <=34 [facility] Comment on above: Result Comment: Canc elled via OM: MD Ordered Performed By: #### L 500.4050 ####[facility] [address] [place], [address] AST Normal <=31 [facility] Comment on above: Result Comment: Canc elled via OM: MD Ordered Performed By: #### L 500.4050 ####[facility] [address] [place], [address] BUN Normal 4-19 [facility] Comment on above: Result Comment: Canc elled via OM: MD Ordered Performed By: #### L 500.4050 ####[facility] [address] [place], [address] BUN/CRE Normal 10-20 [facility] Comment on above: Result Comment: Canc elled via OM: MD Ordered Performed By: #### L 500.4050 ####[facility] [address] [place], [address] Calcium Normal 7.6-11.0 [facility] Comment on above: Result Comment: Canc elled via OM: MD Ordered Performed By: #### L 500.4050 ####[facility] [address] [place], [address] CL Normal 98-108 [facility] Comment on above: Result Comment: Canc elled via OM: MD Ordered Performed By: #### L 500.4050 ####[facility] [address] [place], [address] CO2 Normal 21.0-32.0 [facility] Comment on above: Result Comment: Canc elled via OM: MD Ordered Performed By: #### L 500.4050 ####[facility] [address] [place], [address] CREAT,SERUM Normal 0.70-1.20 [facility] Comment on above: Result Comment: Canc elled via OM: MD Ordered Performed By: #### L 500.4050 ####[facility] [address] [place], [address] eGFR Normal >60 [facility] Comment on above: Result Comment: Canc elled via OM: MD Ordered Performed By: #### L 500.4050 ####[facility] [address] [place], [address] GAP Normal 5-15 [facility] Comment on above: Result Comment: Canc elled via OM: MD Ordered Performed By: #### L 500.4050 ####[facility] [address] [place], [address] GLU Normal 70-99 [facility] Comment on above: Result Comment: Canc elled via OM: MD Ordered Performed By: #### L 500.4050 ####[facility] [address] [place], [address] Potassium Normal 3.3-5.1 [facility] Comment on above: Result Comment: Canc elled via OM: MD Ordered Performed By: #### L 500.4050 ####[facility] [address] [place], [address] T BILI Normal 0.00-1.30 [facility] Comment on above: Result Comment: Canc elled via OM: MD Ordered Performed By: #### L 500.4050 ####[facility] [address] [place], [address] T PROT Normal 5.9-8.4 [facility] Comment on above: Result Comment: Canc elled via OM: MD Ordered Performed By: #### L 500.4050 ####[facility] [address] [place], [address] Comprehensive Metabolic Profil Normal 133-145 [facility] Comment on above: Result Comment: Canc elled via OM: MD Ordered Performed By: #### L 500.4050 ####[facility] [address] [place], [address] Urine Cultureon 10-19-2024 URC Below infection leve l. GPC Poss Enterococcus sp [place] Count <1000 Normal [facility] Comment on above: Performed By: #### M 100.2200, L400.0001 ####[facility] [address] [place], [address] Amorphous sediment detection in urine sediment by light microscopyOrdered By: Veronica White on 10-18-2024 Amorphous sediment LM Ql (Urine sed) 1+ [facility] Bilirubin Test strip Ql (U)O rdered By: Veronica White on 10-18-2024 Bilirubin Ql (U) Negative Negative [facility] Blood cultureOrdered By: Aut umn White on 10-18-2024 Bacteria identified Cx Nom (Bld) No growth in 5 days. [facility] Bacteria identified Cx Nom (Bld) No growth in 5 days. [facility] CBC-Complete Blood Cnt No Di ffon 10-18-2024 Erythrocyte distribution width (RBC) [Ratio] 14.9 % High 11.6-14.6 [facility] Comment on above: Performed By: #### L 100.0500 ####[facility] [address] [place], [address] Hematocrit (Bld) [Volume fraction] 33.5 % Low 37-47 [facility] Comment on above: Performed By: #### L 100.0500 ####[facility] [address] [place], [address] Hemoglobin (Bld) [Mass/Vol] 10.7 g/dL Low 12.0-15.0 [facility] Comment on above: Performed By: #### L 100.0500 ####[facility] [address] [place], [address] MCH (RBC) [Entitic mass] 26.6 pg Low 27.0-32.0 [facility] Comment on above: Performed By: #### L 100.0500 ####[facility] [address] [place], [address] MCHC (RBC) [Mass/Vol] 31.9 g/dL Low 32-36 [facility] Comment on above: Performed By: #### L 100.0500 ####[facility] [address] [place], [address] MCV (RBC) [Entitic vol] 83.1 fL Normal 81-99 [facility] Comment on above: Performed By: #### L 100.0500 ####[facility] [address] [place], [address] Platelet mean volume (Bld) [Entitic vol] 10.0 fL Normal 6.2-12.0 [facility] Comment on above: Performed By: #### L 100.0500 ####[facility] [address] [place], [address] Platelets (Bld) [#/Vol] 276 10*3/uL Normal 150-450 [facility] Comment on above: Performed By: #### L 100.0500 ####[facility] [address] [place], [address] RBC (Bld) [#/Vol] 4.03 10*6/uL Low 4.2-5.4 [facility] Comment on above: Performed By: #### L 100.0500 ####[facility] [address] [place], [address] RDW SD 45.1 fl High 35.1-43.9 [facility] Comment on above: Performed By: #### L 100.0500 ####[facility] [address] [place], [address] WBC (Bld) [#/Vol] 12.5 10*3/uL High 4.4-11.0 [facility] Comment on above: Performed By: #### L 100.0500 ####[facility] [address] [place], [address] CRPon 10-18-2024 C-REACTIVE PROT 173.00 mg/L High 0.0-3.0 [facility] Comment on above: Performed By: #### L 501.6710, L101.9900 ####[facility] [address] [place], [address] Chest PA and Lateralon 10-18 Chest PA and Lateral Normal [facility] Comprehensive Metabolic Prof ilon 10-18-2024 Albumin [Mass/Vol] 3.5 g/dL Normal 3.5-5.0 [facility] Comment on above: Performed By: #### L 500.4050 ####[facility] [address] [place], [address] Albumin/Globulin [Mass ratio] 1.0 {ratio} Normal 0.9-2.4 [facility] Comment on above: Performed By: #### L 500.4050 ####[facility] [address] [place], [address] ALK PHOS 106 U/L High 35-104 [facility] Comment on above: Performed By: #### L 500.4050 ####[facility] [address] [place], [address] ALT [Catalytic activity/Vol] 21 U/L Normal <=34 [facility] Comment on above: Performed By: #### L 500.4050 ####[facility] [address] [place], [address] AST [Catalytic activity/Vol] 24 U/L Normal <=31 [facility] Comment on above: Result Comment: Hemo lysis present, Results??could be affected.?? Performed By: #### L 500.4050 ####[facility] [address] [place], [address] Bilirubin [Mass/Vol] 0.42 mg/dL Normal 0.00-1.30 [facility] Comment on above: Performed By: #### L 500.4050 ####[facility] [address] [place], [address] BUN/CRE 24.9 RATIO High 10-20 [facility] Comment on above: Performed By: #### L 500.4050 ####[facility] [address] [place], [address] Calcium [Mass/Vol] 9.9 mg/dL Normal 7.6-11.0 [facility] Comment on above: Performed By: #### L 500.4050 ####[facility] [address] [place], [address] Chloride [Moles/Vol] 98 mmol/L Normal 98-108 [facility] Comment on above: Performed By: #### L 500.4050 ####[facility] [address] [place], [address] CO2 [Moles/Vol] 18.7 mmol/L Low 21.0-32.0 [facility] Comment on above: Performed By: #### L 500.4050 ####[facility] [address] [place], [address] Creatinine [Mass/Vol] 0.69 mg/dL Low 0.70-1.20 [facility] Comment on above: Performed By: #### L 500.4050 ####[facility] [address] [place], [address] ECRCL 115.14 ml/min Normal 50-250 [facility] Comment on above: Performed By: #### L 500.4050 ####[facility] [address] [place], [address] GAP 12 Normal 5-15 [facility] Comment on above: Performed By: #### L 500.4050 ####[facility] [address] [place], [address] GFR/1.73 sq M.predicted among non-blacks MDRD (S/P/Bld) [Vol rate/Area] 110 mL/min/{1.73_m2} Normal >60 [facility] Comment on above: Result Comment: mL/m in/1.73m2 CKD-EPI Creatinine Equation (2020) Performed By: #### L 500.4050 ####[facility] [address] [place], [address] Globulin (S) [Mass/Vol] 3.5 g/dL Normal 2.2-4.2 [facility] Comment on above: Performed By: #### L 500.4050 ####[facility] [address] [place], [address] Glucose [Mass/Vol] 109 mg/dL High 70-99 [facility] Comment on above: Performed By: #### L 500.4050 ####[facility] [address] [place], [address] Potassium [Moles/Vol] 4.5 mmol/L Normal 3.3-5.1 [facility] Comment on above: Result Comment: Hemo lysis present, Results??could be affected.?? Performed By: #### L 500.4050 ####[facility] [address] [place], [address] Sodium [Moles/Vol] 129 mmol/L Low 133-145 [facility] Comment on above: Performed By: #### L 500.4050 ####[facility] [address] [place], [address] T PROT 7.1 g/dL Normal 5.9-8.4 [facility] Comment on above: Performed By: #### L 500.4050 ####[facility] [address] [place], [address] Urea nitrogen [Mass/Vol] 17 mg/dL Normal 4-19 [facility] Comment on above: Performed By: #### L 500.4050 ####[facility] [address] [place], [address] Erythrocyte Sed Rateon 10-18 SED RATE 56 mm/hr High 0-30 [facility] Comment on above: Performed By: #### L 501.6710, L101.9900 ####[facility] [address] [place], [address] Ketones Test strip Ql (U)Ord ered By: Veronica Obregon on 10-18-2024 Ketones Ql (U) 5 mg/dl High Negative [facility] Misc.on 10-18-2024 [facility] Misc. 4 COMMENT Normal . [facility] Comment on above: Order Comment: LAV/W [id number] PANCREATITIS Result Comment: Test Ordered: [id number] Pancreatitis: 3-gene PanelRouting Comment TG Reference Range: .The test has been completed and the results have been faxedto you.Performed at: TG - [facility] [id number] [facility], [place], [place] [id number] Director: Jeanie Hopson [facility], Phone: [phone] at: CB - [facility] [address] [place], [place] [id number] Director: Yovani Pepper PhD, Phone: [phone] Performed By: #### L 3410.9998 ####[facility] [address] [place], [place], [address] Mucus LM Ql (Urine sed)Order ed By: Veronica Obregon on 10-18-2024 Mucus Ql (Urine sed) 0 SEEN /hpf [facility] Nitrite Test strip Ql (U)Ord ered By: Veronica White on 10-18-2024 Nitrite Ql (U) Negative Negative [facility] Protein Test strip Ql (U)Ord ered By: Veronica White on 10-18-2024 Protein Ql (U) TNP [facility] Protein, Urine (Random)on Protein (U) [Mass/Vol] 11.8 mg/dL Normal 0.0-12.0 [facility] Comment on above: Performed By: #### L 501.1930 ####[facility] [address] [place], [place], [address] Squamous epithelial cells de tection in urine sediment by light microscopyOrdered By: Veronica Obregon on 10-18-2024 Epithelial cells.squamous LM Ql (Urine sed) 0-5 SEEN /hpf 5-10 [facility] Urinalysis, Completeon 10-18 AMORPHOUS 1+ Normal [facility] Comment on above: Order Comment: CLEAN CATCH Performed By: #### M 100.2200, L400.0001 ####[facility] [address] [place], [address] BACTERIA 2+ /hpf Normal None Seen [facility] Comment on above: Order Comment: CLEAN CATCH Performed By: #### M 100.2200, L400.0001 ####[facility] [address] [place], [address] EPI,SQUAMOUS 0-5 SEEN Normal 5-10 [facility] Comment on above: Order Comment: CLEAN CATCH Performed By: #### M 100.2200, L400.0001 ####[facility] [address] [place], [address] WBC 0-5 SEEN Normal 0-5 [facility] Comment on above: Order Comment: CLEAN CATCH Performed By: #### M 100.2200, L400.0001 ####[facility] [address] [place], [address] Mucus Ql (Urine sed) 0 SEEN Normal [facility] Comment on above: Order Comment: CLEAN CATCH Performed By: #### M 100.2200, L400.0001 ####[facility] [address] [place], [address] RBC 0 SEEN Normal 0-5 [facility] Comment on above: Order Comment: CLEAN CATCH Performed By: #### M 100.2200, L400.0001 ####[facility] [address] [place], [address] Urine clarityOrdered By: Becki Obregon on 10-18-2024 Clarity (U) Clear Clear [facility] Urine color determinationOrd ered By: Veronica Obregon on 10-18-2024 Color (U) Yellow Yellow [facility] Urine cultureOrdered By: Becki Obregon on 10-18-2024 Bacteria identified Cx Nom (U) [facility]PC Poss Enterococcus sp Abnormal [facility] Urine glucose detectionOrder ed By: Veronica Obregon on 10-18-2024 Glucose Ql (U) Normal mg/dl Normal [facility] Urine leukocyte esterase det ection by dipstickOrdered By: Veronica Obregon on 10-18-2024 Leukocyte esterase Test strip Ql (U) Negative Negative [facility] Urine pHOrdered By: Veronica David sena on 10-18-2024 pH (U) 6.0 [pH] 5.0 - 8.0 [facility] Urine protein measurement (m ass/volume)Ordered By: Kris Gibbs on 10-18-2024 Protein (U) [Mass/Vol] 11.8 mg/dL 0.0-12.0 [facility] Urine sediment bacteria coun t by microscopy (number/high power field)Ordered By: Veronica Obregon on 10-18-2024 Bacteria LM.HPF (Urine sed) [#/Area] 2 /[HPF] None Seen [facility] Urine specific gravity measu rementOrdered By: Veronica Obregon on 10-18-2024 Specific gravity (U) [Rel density] 1.015 1.002-1.030 [facility] Urine urobilinogen measureme ntOrdered By: Veronica Obregon on 10-18-2024 Urobilinogen Ql (U) Normal mg/dl Normal [facility] White blood cell countOrdere d By: Veronica Obregon on 10-18-2024 White blood cell count 0-5 SEEN /hpf 0-5 [facility] CBC-Complete Blood Cnt No Di ffon 10-17-2024 Erythrocyte distribution width (RBC) [Ratio] 14.9 % High 11.6-14.6 [facility] Comment on above: Performed By: #### L 100.0500 ####[facility] [address] [place], [place], [id number]) Hematocrit (Bld) [Volume fraction] 38.7 % Normal 37-47 [facility] Comment on above: Performed By: #### L 100.0500 ####[facility] [address] [place], [address] Hemoglobin (Bld) [Mass/Vol] 12.4 g/dL Normal 12.0-15.0 [facility] Comment on above: Performed By: #### L 100.0500 ####[facility] [address] [place], [address] MCH (RBC) [Entitic mass] 26.4 pg Low 27.0-32.0 [facility] Comment on above: Performed By: #### L 100.0500 ####[facility] [address] [place], [address] MCHC (RBC) [Mass/Vol] 32.0 g/dL Normal 32-36 [facility] Comment on above: Performed By: #### L 100.0500 ####[facility] [address] [place], [address] MCV (RBC) [Entitic vol] 82.5 fL Normal 81-99 [facility] Comment on above: Performed By: #### L 100.0500 ####[facility] [address] [place], [address] Platelet mean volume (Bld) [Entitic vol] 10.0 fL Normal 6.2-12.0 [facility] Comment on above: Performed By: #### L 100.0500 ####[facility] [address] [place], [address] Platelets (Bld) [#/Vol] 385 10*3/uL Normal 150-450 [facility] Comment on above: Performed By: #### L 100.0500 ####[facility] [address] [place], [address] RBC (Bld) [#/Vol] 4.69 10*6/uL Normal 4.2-5.4 [facility] Comment on above: Performed By: #### L 100.0500 ####[facility] [address] [place], [address] RDW SD 44.4 fl High 35.1-43.9 [facility] Comment on above: Performed By: #### L 100.0500 ####[facility] [address] [place], [address] WBC (Bld) [#/Vol] 21.2 10*3/uL High 4.4-11.0 [facility] Comment on above: Performed By: #### L 100.0500 ####[facility] [address] [place], [address] CRPon 10-17-2024 C-REACTIVE PROT 188.00 mg/L High 0.0-3.0 [facility] Comment on above: Performed By: #### L 501.2450, L501.6710, L3410.9994 ####[facility] [address] [place], [address] Comprehensive Metabolic Prof ilon 10-17-2024 Albumin [Mass/Vol] 4.2 g/dL Normal 3.5-5.0 [facility] Comment on above: Performed By: #### L 500.4050 ####[facility] [address] [place], [address] Albumin/Globulin [Mass ratio] 1.3 {ratio} Normal 0.9-2.4 [facility] Comment on above: Performed By: #### L 500.4050 ####[facility] [address] [place], [address] ALK PHOS 120 U/L High 35-104 [facility] Comment on above: Performed By: #### L 500.4050 ####[facility] [address] [place], [address] ALT [Catalytic activity/Vol] 33 U/L Normal <=34 [facility] Comment on above: Performed By: #### L 500.4050 ####[facility] [address] [place], [address] AST [Catalytic activity/Vol] 21 U/L Normal <=31 [facility] Comment on above: Performed By: #### L 500.4050 ####[facility] [address] [place], [address] Bilirubin [Mass/Vol] 0.76 mg/dL Normal 0.00-1.30 [facility] Comment on above: Performed By: #### L 500.4050 ####[facility] [address] [place], [address] BUN/CRE 25.2 RATIO High 10-20 [facility] Comment on above: Performed By: #### L 500.4050 ####[facility] [address] [place], [address] Calcium [Mass/Vol] 10.4 mg/dL Normal 7.6-11.0 [facility] Comment on above: Performed By: #### L 500.4050 ####[facility] [address] [place], [address] Chloride [Moles/Vol] 93 mmol/L Low 98-108 [facility] Comment on above: Performed By: #### L 500.4050 ####[facility] [address] [place], [address] CO2 [Moles/Vol] 23.0 mmol/L Normal 21.0-32.0 [facility] Comment on above: Performed By: #### L 500.4050 ####[facility] [address] [place], [address] Creatinine [Mass/Vol] 0.51 mg/dL Low 0.70-1.20 [facility] Comment on above: Performed By: #### L 500.4050 ####[facility] [address] [place], [address] ECRCL 155.78 ml/min Normal 50-250 [facility] Comment on above: Performed By: #### L 500.4050 ####[facility] [address] [place], [address] GAP 12 Normal 5-15 [facility] Comment on above: Performed By: #### L 500.4050 ####[facility] [address] [place], [address] GFR/1.73 sq M.predicted among non-blacks MDRD (S/P/Bld) [Vol rate/Area] 118 mL/min/{1.73_m2} Normal >60 [facility] Comment on above: Result Comment: mL/m in/1.73m2 CKD-EPI Creatinine Equation (2020) Performed By: #### L 500.4050 ####[facility] [address] [place], [address] Globulin (S) [Mass/Vol] 3.3 g/dL Normal 2.2-4.2 [facility] Comment on above: Performed By: #### L 500.4050 ####[facility] [address] [place], [address] Glucose [Mass/Vol] 125 mg/dL High 70-99 [facility] Comment on above: Performed By: #### L 500.4050 ####[facility] [address] [place], [address] Potassium [Moles/Vol] 4.4 mmol/L Normal 3.3-5.1 [facility] Comment on above: Performed By: #### L 500.4050 ####[facility] [address] [place], [address] Sodium [Moles/Vol] 128 mmol/L Low 133-145 [facility] Comment on above: Performed By: #### L 500.4050 ####[facility] [address] [place], [address] T PROT 7.5 g/dL Normal 5.9-8.4 [facility] Comment on above: Performed By: #### L 500.4050 ####[facility] [address] [place], [place], [id number] Urea nitrogen [Mass/Vol] 13 mg/dL Normal 4-19 [facility] Comment on above: Performed By: #### L 500.4050 ####[facility] [address] [place], [address] Erythrocyte Sed Rateon 10-17 SED RATE 44 mm/hr High 0-30 [facility] Comment on above: Performed By: #### L 101.9900 ####[facility] [address] [place], [place], [id number] Lactic Acidon 10-17-2024 Lactate [Moles/Vol] mmol/L Normal 0.0-2.0 [facility] Comment on above: Order Comment: Y Performed By: #### L 503.6005 ####[facility] [address] [place], [address] Lipaseon 10-17-2024 Lipase [Catalytic activity/Vol] 131 U/L High 13-75 [facility] Comment on above: Result Comment: Giovanni reilly note:LIPASE revised reference range effective 22.New Lipase methodology. Expected to produce lower valuesthan the previous assay method.NEW Reference Range: 13 - 75 U/L Performed By: #### L 501.2450, L501.6710, L3410.9994 ####[facility] [address] [place], [address] MR/CON.PCM.GIon 10-17-2024 MR/CON.PCM.GI Normal [facility] Absolute lymphocyte countOrd ered By: Davis Best on 10-16-2024 Lymphocytes Auto (Unsp spec) [#/Vol] 1.43 10*3/uL 0.83-4.51 [facility] Automated lymphocyte count a s percentage of total leukocytesOrdered By: Davis Best on 10-16-2024 Lymphocytes/100 WBC Auto (Unsp spec) 11.8 % Low 19-41 [facility] Basophil percentageOrdered B y: Davis Best on 10-16-2024 Basophils/100 WBC (Bld) 0.3 % 0-1 [facility] CBC W/Diff, Automatedon 09-19 Absolute Lymph 1.43 X10 3/uL Normal 0.83-4.51 [facility] Comment on above: Performed By: #### L 500.4050, L100.0100, L501.2450 ####[facility] [address] [place], [address] Absolute Neut 9.8 X10 3/uL High 2.0-7.7 [facility] Comment on above: Performed By: #### L 500.4050, L100.0100, L501.2450 ####[facility] [address] [place], [address] Basophils/100 WBC (Bld) 0.3 % Normal 0-1 [facility] Comment on above: Performed By: #### L 500.4050, L100.0100, L501.2450 ####[facility] [address] [place], [address] Eosinophils/100 WBC (Bld) 2.1 % Normal 0-5 [facility] Comment on above: Performed By: #### L 500.4050, L100.0100, L501.2450 ####[facility] [address] [place], [address] Erythrocyte distribution width (RBC) [Ratio] 14.1 % Normal 11.6-14.6 [facility] Comment on above: Performed By: #### L 500.4050, L100.0100, L501.2450 ####[facility] [address] [place], [address] Hematocrit (Bld) [Volume fraction] 36.6 % Low 37-47 [facility] Comment on above: Performed By: #### L 500.4050, L100.0100, L501.2450 ####[facility] [address] [place], [address] Hemoglobin (Bld) [Mass/Vol] 11.8 g/dL Low 12.0-15.0 [facility] Comment on above: Performed By: #### L 500.4050, L100.0100, L501.2450 ####[facility] [address] [place], [address] IG% 0.300 Normal 0.0-0.9 [facility] Comment on above: Result Comment: IG% - Immature Granulocytes (promyelocytes, myelocytes andmetamyelocytes) > 1% indicates that a LEFT SHIFT is Present. Performed By: #### L 500.4050, L100.0100, L501.2450 ####[facility] [address] [place], [address] Lymphocytes/100 WBC (Bld) 11.8 % Low 19-41 [facility] Comment on above: Performed By: #### L 500.4050, L100.0100, L501.2450 ####[facility] [address] [place], [address] MCH (RBC) [Entitic mass] 26.8 pg Low 27.0-32.0 [facility] Comment on above: Performed By: #### L 500.4050, L100.0100, L501.2450 ####[facility] [address] [place], [address] MCHC (RBC) [Mass/Vol] 32.2 g/dL Normal 32-36 [facility] Comment on above: Performed By: #### L 500.4050, L100.0100, L501.2450 ####[facility] [address] [place], [address] MCV (RBC) [Entitic vol] 83.0 fL Normal 81-99 [facility] Comment on above: Performed By: #### L 500.4050, L100.0100, L501.2450 ####[facility] [address] [place], [address] Monocytes/100 WBC (Bld) 5.0 % Normal 0-10 [facility] Comment on above: Performed By: #### L 500.4050, L100.0100, L501.2450 ####[facility] [address] [place], [address] Neutrophils/100 WBC (Bld) 80.5 % High 47-70 [facility] Comment on above: Performed By: #### L 500.4050, L100.0100, L501.2450 ####[facility] [address] [place], [address] Nucleated RBC (Bld) [#/Vol] 0 10*3/uL Normal 0-5 [facility] Comment on above: Performed By: #### L 500.4050, L100.0100, L501.2450 ####[facility] [address] [place], [address] Platelet mean volume (Bld) [Entitic vol] 9.9 fL Normal 6.2-12.0 [facility] Comment on above: Performed By: #### L 500.4050, L100.0100, L501.2450 ####[facility] [address] [place], [address] Platelets (Bld) [#/Vol] 300 10*3/uL Normal 150-450 [facility] Comment on above: Performed By: #### L 500.4050, L100.0100, L501.2450 ####[facility] [address] [place], [address] RBC (Bld) [#/Vol] 4.41 10*6/uL Normal 4.2-5.4 [facility] Comment on above: Performed By: #### L 500.4050, L100.0100, L501.2450 ####[facility] [address] [place], [address] RDW SD 42.6 fl Normal 35.1-43.9 [facility] Comment on above: Performed By: #### L 500.4050, L100.0100, L501.2450 ####[facility] [address] [place], [address] WBC (Bld) [#/Vol] 12.1 10*3/uL High 4.4-11.0 [facility] Comment on above: Performed By: #### L 500.4050, L100.0100, L501.2450 ####[facility] [address] [place], [address] Comprehensive Metabolic Prof [facility] 10-16-2024 Albumin [Mass/Vol] 4.2 g/dL Normal 3.5-5.0 [facility] Comment on above: Performed By: #### L 500.4050, L100.0100, L501.2450 ####[facility] [address] [place], [address] Albumin/Globulin [Mass ratio] 1.5 {ratio} Normal 0.9-2.4 [facility] Comment on above: Performed By: #### L 500.4050, L100.0100, L501.2450 ####[facility] [address] [place], [address] ALK PHOS 109 U/L High 35-104 [facility] Comment on above: Performed By: #### L 500.4050, L100.0100, L501.2450 ####[facility] [address] [place], [address] ALT [Catalytic activity/Vol] 40 U/L High <=34 [facility] Comment on above: Performed By: #### L 500.4050, L100.0100, L501.2450 ####[facility] [address] [place], [address] AST [Catalytic activity/Vol] 30 U/L Normal <=31 [facility] Comment on above: Performed By: #### L 500.4050, L100.0100, L501.2450 ####[facility] [address] [place], [address] Bilirubin [Mass/Vol] 0.52 mg/dL Normal 0.00-1.30 [facility] Comment on above: Performed By: #### L 500.4050, L100.0100, L501.2450 ####[facility] [address] [place], [address] BUN/CRE 19.6 RATIO Normal 10-20 [facility] Comment on above: Performed By: #### L 500.4050, L100.0100, L501.2450 ####[facility] [address] [place], [address] Calcium [Mass/Vol] 9.4 mg/dL Normal 7.6-11.0 [facility] Comment on above: Performed By: #### L 500.4050, L100.0100, L501.2450 ####[facility] [address] [place], [address] Chloride [Moles/Vol] 99 mmol/L Normal 98-108 [facility] Comment on above: Performed By: #### L 500.4050, L100.0100, L501.2450 ####[facility] [address] [place], [address] CO2 [Moles/Vol] 24.1 mmol/L Normal 21.0-32.0 [facility] Comment on above: Performed By: #### L 500.4050, L100.0100, L501.2450 ####[facility] [address] [place], [address] Creatinine [Mass/Vol] 0.41 mg/dL Low 0.70-1.20 [facility] Comment on above: Performed By: #### L 500.4050, L100.0100, L501.2450 ####[facility] [address] [place], [address] ECRCL 193.77 ml/min Normal 50-250 [facility] Comment on above: Performed By: #### L 500.4050, L100.0100, L501.2450 ####[facility] [address] [place], [address] GAP 10 Normal 5-15 [facility] Comment on above: Performed By: #### L 500.4050, L100.0100, L501.2450 ####[facility] [address] [place], [address] GFR/1.73 sq M.predicted among non-blacks MDRD (S/P/Bld) [Vol rate/Area] 125 mL/min/{1.73_m2} Normal >60 [facility] Comment on above: Result Comment: mL/m in/1.73m2 CKD-EPI Creatinine Equation (2020) Performed By: #### L 500.4050, L100.0100, L501.2450 ####[facility] [address] [place], [address] Globulin (S) [Mass/Vol] 2.8 g/dL Normal 2.2-4.2 [facility] Comment on above: Performed By: #### L 500.4050, L100.0100, L501.2450 ####[facility] [address] [place], [address] Glucose [Mass/Vol] 126 mg/dL High 70-99 [facility] Comment on above: Performed By: #### L 500.4050, L100.0100, L501.2450 ####[facility] [address] [place], [address] Potassium [Moles/Vol] 4.2 mmol/L Normal 3.3-5.1 [facility] Comment on above: Performed By: #### L 500.4050, L100.0100, L501.2450 ####[facility] [address] [place], [address] Sodium [Moles/Vol] 134 mmol/L Normal 133-145 [facility] Comment on above: Performed By: #### L 500.4050, L100.0100, L501.2450 ####[facility] [address] [place], [address] T PROT 7.0 g/dL Normal 5.9-8.4 [facility] Comment on above: Performed By: #### L 500.4050, L100.0100, L501.2450 ####[facility] [address] [place], [address] Urea nitrogen [Mass/Vol] 8 mg/dL Normal 4-19 [facility] Comment on above: Performed By: #### L 500.4050, L100.0100, L501.2450 ####[facility] [address] [place], [address] Eosinophil percentageOrdered By: Davis Best on 10-16-2024 Eosinophils/100 WBC (Bld) 2.1 % 0-5 [facility] Immature granulocytes/100 WB C Auto (Bld)Ordered By: Davis Best on 10-16-2024 Immature granulocytes/100 WBC (Bld) 0.300 % 0.0-0.9 [facility] Lipaseon 10-16-2024 Lipase [Catalytic activity/Vol] 147 U/L High 13-75 [facility] Comment on above: Result Comment: Plea se note:LIPASE revised reference range effective 22.New Lipase methodology. Expected to produce lower valuesthan the previous assay method.NEW Reference Range: 13 - 75 U/L Performed By: #### L 500.4050, L100.0100, L501.2450 ####[facility] [address] [place], [address] Monocyte percentageOrdered B y: Davis Best on 10-16-2024 Monocytes/100 WBC (Bld) 5.0 % 0-10 [facility] Neutrophil percentageOrdered By: Davis Best on 10-16-2024 Neutrophils/100 WBC (Bld) 80.5 % High 47-70 [facility] Abdomen/Pelvis W IV Cont ONL Yon 10-15-2024 Abdomen/Pelvis W IV Cont ONLY Normal [facility] Basic Metabolic Profile (BMP )on 10-15-2024 BUN/CRE 21.8 RATIO High 10-20 [facility] Comment on above: Performed By: #### L 500.3400, L100.0100, L503.6005, L101.9900, L500.2500, L509.7001, L501.2450, L501.6710 ####[facility] [address] [place], [address] Calcium [Mass/Vol] 10.0 mg/dL Normal 7.6-11.0 [facility] Comment on above: Performed By: #### L 500.3400, L100.0100, L503.6005, L101.9900, L500.2500, L509.7001, L501.2450, L501.6710 ####[facility] [address] [place], [address] Chloride [Moles/Vol] 99 mmol/L Normal 98-108 [facility] Comment on above: Performed By: #### L 500.3400, L100.0100, L503.6005, L101.9900, L500.2500, L509.7001, L501.2450, L501.6710 ####[facility] [address] [place], [address] CO2 [Moles/Vol] 22.8 mmol/L Normal 21.0-32.0 [facility] Comment on above: Performed By: #### L 500.3400, L100.0100, L503.6005, L101.9900, L500.2500, L509.7001, L501.2450, L501.6710 ####[facility] [address] [place], [address] Creatinine [Mass/Vol] 0.48 mg/dL Low 0.70-1.20 [facility] Comment on above: Performed By: #### L 500.3400, L100.0100, L503.6005, L101.9900, L500.2500, L509.7001, L501.2450, L501.6710 ####[facility] [address] [place], [address] ECRCL 164.88 ml/min Normal 50-250 [facility] Comment on above: Performed By: #### L 500.3400, L100.0100, L503.6005, L101.9900, L500.2500, L509.7001, L501.2450, L501.6710 ####[facility] [address] [place], [address] GAP 11 Normal 5-15 [facility] Comment on above: Performed By: #### L 500.3400, L100.0100, L503.6005, L101.9900, L500.2500, L509.7001, L501.2450, L501.6710 ####[facility] [address] [place], [address] GFR/1.73 sq M.predicted among non-blacks MDRD (S/P/Bld) [Vol rate/Area] 120 mL/min/{1.73_m2} Normal >60 [facility] Comment on above: Result Comment: mL/m in/1.73m2 CKD-EPI Creatinine Equation (2020) Performed By: #### L 500.3400, L100.0100, L503.6005, L101.9900, L500.2500, L509.7001, L501.2450, L501.6710 ####[facility] [address] [place], [address] Glucose [Mass/Vol] 117 mg/dL High 70-99 [facility] Comment on above: Performed By: #### L 500.3400, L100.0100, L503.6005, L101.9900, L500.2500, L509.7001, L501.2450, L501.6710 ####[facility] [address] [place], [address] Potassium [Moles/Vol] 4.3 mmol/L Normal 3.3-5.1 [facility] Comment on above: Result Comment: Hemo lysis present, Results??could be affected.?? Performed By: #### L 500.3400, L100.0100, L503.6005, L101.9900, L500.2500, L509.7001, L501.2450, L501.6710 ####[facility] [address] [place], [address] Sodium [Moles/Vol] 133 mmol/L Normal 133-145 [facility] Comment on above: Performed By: #### L 500.3400, L100.0100, L503.6005, L101.9900, L500.2500, L509.7001, L501.2450, L501.6710 ####[facility] [address] [place], [address] Urea nitrogen [Mass/Vol] 11 mg/dL Normal 4-19 [facility] Comment on above: Performed By: #### L 500.3400, L100.0100, L503.6005, L101.9900, L500.2500, L509.7001, L501.2450, L501.6710 ####[facility] [address] [place], [address] Bilirubin directOrdered By: Ashu Garcia on 10-15-2024 Bilirubin.direct [Mass/Vol] 0.14 mg/dL 0.00-0.30 [facility] CBC W/Diff, Automatedon 09-19 Absolute Lymph 2.23 X10 3/uL Normal 0.83-4.51 [facility] Comment on above: Performed By: #### L 500.3400, L100.0100, L503.6005, L101.9900, L500.2500, L509.7001, L501.2450, L501.6710 ####[facility] [address] [place], [address] Absolute Neut 8.8 X10 3/uL High 2.0-7.7 [facility] Comment on above: Performed By: #### L 500.3400, L100.0100, L503.6005, L101.9900, L500.2500, L509.7001, L501.2450, L501.6710 ####[facility] [address] [place], [address] Basophils/100 WBC (Bld) 0.5 % Normal 0-1 [facility] Comment on above: Performed By: #### L 500.3400, L100.0100, L503.6005, L101.9900, L500.2500, L509.7001, L501.2450, L501.6710 ####[facility] [address] [place], [address] Eosinophils/100 WBC (Bld) 3.0 % Normal 0-5 [facility] Comment on above: Performed By: #### L 500.3400, L100.0100, L503.6005, L101.9900, L500.2500, L509.7001, L501.2450, L501.6710 ####[facility] [address] [place], [place], [phone] Erythrocyte distribution width (RBC) [Ratio] 14.1 % Normal 11.6-14.6 [facility] Comment on above: Performed By: #### L 500.3400, L100.0100, L503.6005, L101.9900, L500.2500, L509.7001, L501.2450, L501.6710 ####[facility] [address] [place], [address]) Hematocrit (Bld) [Volume fraction] 37.6 % Normal 37-47 [facility] Comment on above: Performed By: #### L 500.3400, L100.0100, L503.6005, L101.9900, L500.2500, L509.7001, L501.2450, L501.6710 ####[facility] [address] [place], [place], [phone]) Hemoglobin (Bld) [Mass/Vol] 12.2 g/dL Normal 12.0-15.0 [facility] Comment on above: Performed By: #### L 500.3400, L100.0100, L503.6005, L101.9900, L500.2500, L509.7001, L501.2450, L501.6710 ####[facility] [address] [place], [place], [phone] IG% 0.400 Normal 0.0-0.9 [facility] Comment on above: Result Comment: IG% - Immature Granulocytes (promyelocytes, myelocytes andmetamyelocytes) > 1% indicates that a LEFT SHIFT is Present. Performed By: #### L 500.3400, L100.0100, L503.6005, L101.9900, L500.2500, L509.7001, L501.2450, L501.6710 ####[facility] [address] [place], [address] Lymphocytes/100 WBC (Bld) 18.5 % Low 19-41 [facility] Comment on above: Performed By: #### L 500.3400, L100.0100, L503.6005, L101.9900, L500.2500, L509.7001, L501.2450, L501.6710 ####[facility] [address] [place], [address] MCH (RBC) [Entitic mass] 26.9 pg Low 27.0-32.0 [facility] Comment on above: Performed By: #### L 500.3400, L100.0100, L503.6005, L101.9900, L500.2500, L509.7001, L501.2450, L501.6710 ####[facility] [address] [place], [address] MCHC (RBC) [Mass/Vol] 32.4 g/dL Normal 32-36 [facility] Comment on above: Performed By: #### L 500.3400, L100.0100, L503.6005, L101.9900, L500.2500, L509.7001, L501.2450, L501.6710 ####[facility] [address] [place], [address] MCV (RBC) [Entitic vol] 82.8 fL Normal 81-99 [facility] Comment on above: Performed By: #### L 500.3400, L100.0100, L503.6005, L101.9900, L500.2500, L509.7001, L501.2450, L501.6710 ####[facility] [address] [place], [address] Monocytes/100 WBC (Bld) 5.0 % Normal 0-10 [facility] Comment on above: Performed By: #### L 500.3400, L100.0100, L503.6005, L101.9900, L500.2500, L509.7001, L501.2450, L501.6710 ####[facility] [address], [address] Neutrophils/100 WBC (Bld) 72.6 % High 47-70 [facility] Comment on above: Performed By: #### L 500.3400, L100.0100, L503.6005, L101.9900, L500.2500, L509.7001, L501.2450, L501.6710 ####[facility] [address] [place], [address] Nucleated RBC (Bld) [#/Vol] 0 10*3/uL Normal 0-5 [facility] Comment on above: Performed By: #### L 500.3400, L100.0100, L503.6005, L101.9900, L500.2500, L509.7001, L501.2450, L501.6710 ####[facility] [address], [address] Platelet mean volume (Bld) [Entitic vol] 10.0 fL Normal 6.2-12.0 [facility] Comment on above: Performed By: #### L 500.3400, L100.0100, L503.6005, L101.9900, L500.2500, L509.7001, L501.2450, L501.6710 ####[facility] [address] [place], [address] Platelets (Bld) [#/Vol] 290 10*3/uL Normal 150-450 [facility] Comment on above: Performed By: #### L 500.3400, L100.0100, L503.6005, L101.9900, L500.2500, L509.7001, L501.2450, L501.6710 ####[facility] [address] [place], [address] RBC (Bld) [#/Vol] 4.54 10*6/uL Normal 4.2-5.4 [facility] Comment on above: Performed By: #### L 500.3400, L100.0100, L503.6005, L101.9900, L500.2500, L509.7001, L501.2450, L501.6710 ####[facility] [address] [place], [address] RDW SD 42.4 fl Normal 35.1-43.9 [facility] Comment on above: Performed By: #### L 500.3400, L100.0100, L503.6005, L101.9900, L500.2500, L509.7001, L501.2450, L501.6710 ####[facility] [address] [place], [address] WBC (Bld) [#/Vol] 12.1 10*3/uL High 4.4-11.0 [facility] Comment on above: Performed By: #### L 500.3400, L100.0100, L503.6005, L101.9900, L500.2500, L509.7001, L501.2450, L501.6710 ####[facility] [address] [place], [address] CRPon 10-15-2024 C-REACTIVE PROT 28.10 mg/L High 0.0-3.0 [facility] Comment on above: Performed By: #### L 500.3400, L100.0100, L503.6005, L101.9900, L500.2500, L509.7001, L501.2450, L501.6710 ####[facility] [address] [place], [address] Emergency Department Summary on 10-15-2024 Emergency Department Summary Normal [facility] Erythrocyte Sed Rateon 10-15 SED RATE 20 mm/hr Normal 0-30 [facility] Comment on above: Performed By: #### L 500.3400, L100.0100, L503.6005, L101.9900, L500.2500, L509.7001, L501.2450, L501.6710 ####[facility] [address] [place], [place], [id number] L509.7001on 10-15-2024 Procalcitonin 0.04 ng/mL Normal <=0.10 [facility] Comment on above: Result Comment: Inte rpretation:<0.10-0.25 ng/mL: Antibiotic therapy discouraged. Bacterialinfection unlikely.0.25-0.50 ng/mL: Antibiotic therapy encouraged. Bacterialinfection possible.>0.50 ng/mL: Antibiotic therapy strongly encouraged.Suggestive of presence of bacterial infection.PCT should always be interpreted in the clinical context ofthe patient. Therefore, clinicians should use the PCTresults in conjunction with other laboratory findings andclinical signs of the patient. Performed By: #### L 500.3400, L100.0100, L503.6005, L101.9900, L500.2500, L509.7001, L501.2450, L501.6710 ####[facility] [address] [place], [place], [id number] Lactic Acidon 10-15-2024 Lactate [Moles/Vol] mmol/L Normal 0.0-2.0 [facility] Comment on above: Order Comment: Y Performed By: #### L 500.3400, L100.0100, L503.6005, L101.9900, L500.2500, L509.7001, L501.2450, L501.6710 ####[facility] [address] [place], [place], [address] Lipaseon 10-15-2024 Lipase [Catalytic activity/Vol] 237 U/L High 13-75 [facility] Comment on above: Result Comment: Giovanni reilly note:LIPASE revised reference range effective 22.New Lipase methodology. Expected to produce lower valuesthan the previous assay method.NEW Reference Range: 13 - 75 U/L Performed By: #### L 500.3400, L100.0100, L503.6005, L101.9900, L500.2500, L509.7001, L501.2450, L501.6710 ####[facility] [address] [place], [address] Liver Profileon 10-15-2024 Albumin [Mass/Vol] 4.2 g/dL Normal 3.5-5.0 [facility] Comment on above: Performed By: #### L 500.3400, L100.0100, L503.6005, L101.9900, L500.2500, L509.7001, L501.2450, L501.6710 ####[facility] [address] [place], [place], [phone] ALK PHOS 111 U/L High 35-104 [facility] Comment on above: Performed By: #### L 500.3400, L100.0100, L503.6005, L101.9900, L500.2500, L509.7001, L501.2450, L501.6710 ####[facility] [address] [place], [address] ALT [Catalytic activity/Vol] 40 U/L High <=34 [facility] Comment on above: Performed By: #### L 500.3400, L100.0100, L503.6005, L101.9900, L500.2500, L509.7001, L501.2450, L501.6710 ####[facility] [address] [place], [address] AST [Catalytic activity/Vol] 40 U/L High <=31 [facility] Comment on above: Result Comment: Hemo lysis present, Results??could be affected.?? Performed By: #### L 500.3400, L100.0100, L503.6005, L101.9900, L500.2500, L509.7001, L501.2450, L501.6710 ####[facility] [address] [place], [address] Bilirubin [Mass/Vol] 0.55 mg/dL Normal 0.00-1.30 [facility] Comment on above: Performed By: #### L 500.3400, L100.0100, L503.6005, L101.9900, L500.2500, L509.7001, L501.2450, L501.6710 ####[facility] [address] [place], [address] Bilirubin.direct [Mass/Vol] 0.14 mg/dL Normal 0.00-0.30 [facility] Comment on above: Result Comment: Hemo lysis present, Results??could be affected.?? Performed By: #### L 500.3400, L100.0100, L503.6005, L101.9900, L500.2500, L509.7001, L501.2450, L501.6710 ####[facility] [address] [place], [address] Globulin (S) [Mass/Vol] 3.1 g/dL Normal 2.2-4.2 [facility] Comment on above: Performed By: #### L 500.3400, L100.0100, L503.6005, L101.9900, L500.2500, L509.7001, L501.2450, L501.6710 ####[facility] [address] [place], [address] T PROT 7.3 g/dL Normal 5.9-8.4 [facility] Comment on above: Performed By: #### L 500.3400, L100.0100, L503.6005, L101.9900, L500.2500, L509.7001, L501.2450, L501.6710 ####[facility] [address] [place], [address] Procalcitonin [Mass/volume] in Serum or Plasma by ImmunoassayOrdered By: Ashu Garcia on 10-15-2024 Procalcitonin IA [Mass/Vol] 0.04 ng/mL <0.11 [facility] Urinalysis, Completeon 10-15 BACTERIA 1+ /hpf Normal None Seen [facility] Comment on above: Order Comment: CLEAN CATCH Performed By: #### L 400.0001 ####[facility] [address] [place], [address] EPI,SQUAMOUS 10-25 SEEN Normal 5-10 [facility] Comment on above: Order Comment: CLEAN CATCH Performed By: #### L 400.0001 ####[facility] [address] [place], [address] WBC 0-5 SEEN Normal 0-5 [facility] Comment on above: Order Comment: CLEAN CATCH Performed By: #### L 400.0001 ####[facility] [address] [place], [address] Mucus Ql (Urine sed) 0 SEEN Normal [facility] Comment on above: Order Comment: CLEAN CATCH Performed By: #### L 400.0001 ####[facility] [address] [place], [address] RBC 0 SEEN Normal 0-5 [facility] Comment on above: Order Comment: CLEAN CATCH Performed By: #### L 400.0001 ####[facility] [address] [place], [address] Gastroenterology Visit Repor ton 10-04-2024 Gastroenterology Visit Report Normal [facility] Misc.on 10-03-2024 [facility] Misc. COMMENT Normal . [facility] Comment on above: Order Comment: [id number] 4HEREDITARY PANCREATITIS WB RT Result Comment: Test Ordered: 117049 Pancreatitis: 3-gene PanelRouting Comment TG Reference Range: .The test has been completed and the results have been faxedto you.Performed at: TG - [facility] [id number] [place], [place] [id number] Director: Jeanie Hopson [facility], Phone: [phone] at: [facility] - [facility] [address] [id number] Director: Yovani Pepper PhD, Phone: [phone] Performed By: #### L 3410.2350, L3200.0500, L3200.1100, L3890.6006, L3300.1200, L3100.5440, L3100.3425, L504.2610, L3410.9998, L3100.5850, L3100.5020, L3400.1490, L101.9900, L501.5000, L501.6710, L2100.0000, L3400.1500 ####[facility] [address] [place] [place], [address] [facility].on 10-01-2024 [facility]. COMMENT Normal . [facility] Comment on above: Order Comment: LAVE/ WB/[id number] Result Comment: Test Ordered: 216451 Phosphatidylethanol (PEth)PHOSPHATIDYLETHANOL Negative MX Reference Range: .Phosphatidylethanol (PEth) Negative ng/mL MX Reference Range: .Analyzed compound: PEth 16:0/18:1. 4-bnpupliks-3-vdxzja-gi-rksubsw-3-phosphoethanol.Analysis performed by Liquid Chromatography withTandem Mass Spectrometry (LC/MS/MS).Detection limit: 20 ng/mLPEth levels in excess of 20 ng/mL are considered evidenceof moderate to heavy ethanol consumption. However,the Center for Substance Abuse Treatment (CSAT) advisescaution in interpretation and use of biomarkers aloneto assess alcohol use. Results should be interpretedin the context of all available clinical and behavioralinformation.Reference: Substance Abuse and Mental Health Services Administration (2012). The Role of Biomarkers in the Treatment of Alcohol Use Disorders, 2012 Revision. Advisory, Volume 11, Issue 2.This test was developed and its performance characteristicsdetermined by [employer]. It has not been cleared or approvedby the Food and Drug Administration.Performed at: [employer] [address] [place] [id number] Director: Faith Alvarado [facility], Phone: [phone] at: [facility] [address] [id number] Director: Yovani Pepper PhD, Phone: [phone] Performed By: #### L 3410.9998 ####[facility] [address] [place], [place], [id number] Absolute lymphocyte countOrd ered By: Charlotte Gibbs on 09-28-2024 Lymphocytes Auto (Unsp spec) [#/Vol] 2.04 10*3/uL 0.83-4.51 [facility] Absolute neutrophil countOrd ered By: Charlotte Gibbs on 09-28-2024 Neutrophils (Bld) [#/Vol] 5.9 10*3/uL 2.0-7.7 [facility] Anion gap in Serum or Plasma Ordered By: Charlotte Gibbs on 09-28-2024 Anion gap [Moles/Vol] 13 mmol/L 5-15 [facility] Automated lymphocyte count a s percentage of total leukocytesOrdered By: Charlotte Gibbs on 09-28-2024 Lymphocytes/100 WBC Auto (Unsp spec) 22.8 % 19-41 [facility] BUN/creatinine ratioOrdered By: Charlotte Gibbs on 09-28-2024 Urea nitrogen/Creatinine [Mass ratio] 23.5 mg/mg High 10-20 [facility] Basophil percentageOrdered B y: Charlotte Gibbs on 09-28-2024 Basophils/100 WBC (Bld) 0.3 % 0-1 [facility] Bilirubin, totalOrdered By: Charlotte Gibbs on 09-28-2024 Bilirubin [Mass/Vol] 0.26 mg/dL 0.00-1.30 [facility] CBC W/Diff, Automatedon 09-18 Absolute Lymph 2.04 X10 3/uL Normal 0.83-4.51 [facility] Comment on above: Performed By: #### L 100.0100, L500.4050 ####[facility] [address] [place], [address] Absolute Neut 5.9 X10 3/uL Normal 2.0-7.7 [facility] Comment on above: Performed By: #### L 100.0100, L500.4050 ####[facility] [address] [place], [address] Basophils/100 WBC (Bld) 0.3 % Normal 0-1 [facility] Comment on above: Performed By: #### L 100.0100, L500.4050 ####[facility] [address] [place], [address] Eosinophils/100 WBC (Bld) 4.8 % Normal 0-5 [facility] Comment on above: Performed By: #### L 100.0100, L500.4050 ####[facility] [address] [place], [address] Erythrocyte distribution width (RBC) [Ratio] 13.2 % Normal 11.6-14.6 [facility] Comment on above: Performed By: #### L 100.0100, L500.4050 ####[facility] [address] [place], [address] Hematocrit (Bld) [Volume fraction] 34.7 % Low 37-47 [facility] Comment on above: Performed By: #### L 100.0100, L500.4050 ####[facility] [address] [place], [address] Hemoglobin (Bld) [Mass/Vol] 10.8 g/dL Low 12.0-15.0 [facility] Comment on above: Performed By: #### L 100.0100, L500.4050 ####[facility] [address] [place], [address] IG% 0.600 Normal 0.0-0.9 [facility] Comment on above: Result Comment: IG% - Immature Granulocytes (promyelocytes, myelocytes andmetamyelocytes) > 1% indicates that a LEFT SHIFT is Present. Performed By: #### L 100.0100, L500.4050 ####[facility] [address] [place], [address] Lymphocytes/100 WBC (Bld) 22.8 % Normal 19-41 [facility] Comment on above: Performed By: #### L 100.0100, L500.4050 ####[facility] [address] [place], [address] MCH (RBC) [Entitic mass] 26.4 pg Low 27.0-32.0 [facility] Comment on above: Performed By: #### L 100.0100, L500.4050 ####[facility] [address] [place], [address] MCHC (RBC) [Mass/Vol] 31.1 g/dL Low 32-36 [facility] Comment on above: Performed By: #### L 100.0100, L500.4050 ####[facility] [address] [place], [address] MCV (RBC) [Entitic vol] 84.8 fL Normal 81-99 [facility] Comment on above: Performed By: #### L 100.0100, L500.4050 ####[facility] [address] [place], [address] Monocytes/100 WBC (Bld) 5.8 % Normal 0-10 [facility] Comment on above: Performed By: #### L 100.0100, L500.4050 ####[facility] [address] [place], [address] Neutrophils/100 WBC (Bld) 65.7 % Normal 47-70 [facility] Comment on above: Performed By: #### L 100.0100, L500.4050 ####[facility] [address] [place], [address] Nucleated RBC (Bld) [#/Vol] 0 10*3/uL Normal 0-5 [facility] Comment on above: Performed By: #### L 100.0100, L500.4050 ####[facility] [address] [place], [address] Platelet mean volume (Bld) [Entitic vol] 10.0 fL Normal 6.2-12.0 [facility] Comment on above: Performed By: #### L 100.0100, L500.4050 ####[facility] [address] [place], [address] Platelets (Bld) [#/Vol] 344 10*3/uL Normal 150-450 [facility] Comment on above: Performed By: #### L 100.0100, L500.4050 ####[facility] [address] [place], [address] RBC (Bld) [#/Vol] 4.09 10*6/uL Low 4.2-5.4 [facility] Comment on above: Performed By: #### L 100.0100, L500.4050 ####[facility] [address] [place], [address] RDW SD 41.0 fl Normal 35.1-43.9 [facility] Comment on above: Performed By: #### L 100.0100, L500.4050 ####[facility] [address] [place], [address] WBC (Bld) [#/Vol] 8.9 10*3/uL Normal 4.4-11.0 [facility] Comment on above: Performed By: #### L 100.0100, L500.4050 ####[facility] [address] [place], [address] Carbon dioxide, total [Moles /volume] in Central venous bloodOrdered By: Charlotte Gibbs on 09-28-2024 CO2 [Moles/Vol] 25.1 mmol/L 21.0-32.0 [facility] Chloride assayOrdered By: Mathew Gibbs on 09-28-2024 Chloride [Moles/Vol] 99 mmol/L 98-108 [facility] Comprehensive Metabolic Prof ilon 09-28-2024 Albumin [Mass/Vol] 3.4 g/dL Low 3.5-5.0 [facility] Comment on above: Performed By: #### L 100.0100, L500.4050 ####[facility] [address] [place], [address] Albumin/Globulin [Mass ratio] 1.0 {ratio} Normal 0.9-2.4 [facility] Comment on above: Performed By: #### L 100.0100, L500.4050 ####[facility] [address] [place], [address] ALK PHOS 101 U/L Normal 35-104 [facility] Comment on above: Performed By: #### L 100.0100, L500.4050 ####[facility] [address] [place], [address] ALT [Catalytic activity/Vol] 17 U/L Normal <=34 [facility] Comment on above: Performed By: #### L 100.0100, L500.4050 ####[facility] [address] [place], [address] AST [Catalytic activity/Vol] 21 U/L Normal <=31 [facility] Comment on above: Performed By: #### L 100.0100, L500.4050 ####[facility] [address] [place], [address] Bilirubin [Mass/Vol] 0.26 mg/dL Normal 0.00-1.30 [facility] Comment on above: Performed By: #### L 100.0100, L500.4050 ####[facility] [address] [place], [address] BUN/CRE 23.5 RATIO High 10-20 [facility] Comment on above: Performed By: #### L 100.0100, L500.4050 ####[facility] [address] [place], [address] Calcium [Mass/Vol] 10.1 mg/dL Normal 7.6-11.0 [facility] Comment on above: Performed By: #### L 100.0100, L500.4050 ####[facility] [address] [place], [address] Chloride [Moles/Vol] 99 mmol/L Normal 98-108 [facility] Comment on above: Performed By: #### L 100.0100, L500.4050 ####[facility] [address] [place], [address] CO2 [Moles/Vol] 25.1 mmol/L Normal 21.0-32.0 [facility] Comment on above: Performed By: #### L 100.0100, L500.4050 ####[facility] [address] [place], [address] Creatinine [Mass/Vol] 0.62 mg/dL Low 0.70-1.20 [facility] Comment on above: Performed By: #### L 100.0100, L500.4050 ####[facility] [address] [place], [address] ECRCL 128.87 ml/min Normal 50-250 [facility] Comment on above: Performed By: #### L 100.0100, L500.4050 ####[facility] [address] [place], [address] GAP 13 Normal 5-15 [facility] Comment on above: Performed By: #### L 100.0100, L500.4050 ####[facility] [address] [place], [address] GFR/1.73 sq M.predicted among non-blacks MDRD (S/P/Bld) [Vol rate/Area] 113 mL/min/{1.73_m2} Normal >60 [facility] Comment on above: Result Comment: mL/m in/1.73m2 CKD-EPI Creatinine Equation (2020) Performed By: #### L 100.0100, L500.4050 ####[facility] [address] [place], [address] Globulin (S) [Mass/Vol] 3.5 g/dL Normal 2.2-4.2 [facility] Comment on above: Performed By: #### L 100.0100, L500.4050 ####[facility] [address] [place], [address] Glucose [Mass/Vol] 92 mg/dL Normal 70-99 [facility] Comment on above: Performed By: #### L 100.0100, L500.4050 ####[facility] [address] [place], [address] Potassium [Moles/Vol] 3.9 mmol/L Normal 3.3-5.1 [facility] Comment on above: Performed By: #### L 100.0100, L500.4050 ####[facility] [address] [place], [address] Sodium [Moles/Vol] 136 mmol/L Normal 133-145 [facility] Comment on above: Performed By: #### L 100.0100, L500.4050 ####[facility] [address] [place], [address] T PROT 6.8 g/dL Normal 5.9-8.4 [facility] Comment on above: Performed By: #### L 100.0100, L500.4050 ####[facility] [address] [place], [address] Urea nitrogen [Mass/Vol] 15 mg/dL Normal 4-19 [facility] Comment on above: Performed By: #### L 100.0100, L500.4050 ####[facility] [address] [place], [address] Eosinophil percentageOrdered By: Charlotte Gibbs on 09-28-2024 Eosinophils/100 WBC (Bld) 4.8 % 0-5 [facility] Erythrocyte distribution wid th (RBC) [Ratio]Ordered By: Charlotte Gibbs on 09-28-2024 Erythrocyte distribution width (RBC) [Entitic vol] 41.0 fL 35.1-43.9 [facility] Erythrocyte distribution wid th ratioOrdered By: Charlotte Gibbs on 09-28-2024 Erythrocyte distribution width (RBC) [Ratio] 13.2 % 11.6-14.6 [facility] Erythrocyte distribution wid th standard deviationOrdered By: Charlotte Gibbs on 09-28-2024 Erythrocyte distribution width (RBC) [Ratio] 41.0 fl 35.1-43.9 [facility] Estimation of creatinine yogesh aranceOrdered By: Charlotte Gibbs on 09-28-2024 Estimated Creatinine Clearance Calc 128.87 ml/min 50-250 [facility] GFR/1.73 sq M.predicted daysi g non-blacks MDRD (S/P/Bld) [Vol rate/Area]Ordered By: Charlotte Gibbs on 09-28-2024 Estimated GFR (MDRD) Non-Af Amer 113 >60 [facility] Comment on above: mL/min/1.73m2 CKD-EP I Creatinine Equation (2020) Glomerular filtration rate ( GFR) estimation/1.73 sq m using serum, plasma, or whole bOrdered By: Charlotte Gibbs on 09-28-2024 GFR/1.73 sq M.predicted among non-blacks MDRD (S/P/Bld) [Vol rate/Area] 113 mL/min/{1.73_m2} >60 [facility] Hematocrit Auto (Bld) [Volum e fraction]Ordered By: Charlotte Gibbs on 09-28-2024 Hematocrit (Bld) [Volume fraction] 34.7 % Low 37-47 [facility] Hemoglobin measurementOrdere d By: Charlotte Gibbs on 09-28-2024 Hemoglobin (Bld) [Mass/Vol] 10.8 g/dL Low 12.0-15.0 [facility] Immature granulocytes/100 WB C Auto (Bld)Ordered By: Charlotte Gibbs on 09-28-2024 Immature granulocytes/100 WBC (Bld) 0.600 % 0.0-0.9 [facility] Comment on above: IG% - Immature Granu locytes (promyelocytes, myelocytes and metamyelocytes) > 1% indicates that a LEFT SHIFT is Present. Laboratory - Chemistry and C hemistry - challengeOrdered By: Charlotte Gibbs on 09-28-2024 AST [Catalytic activity/Vol] 21 U/L <32 [facility] Lymphocytes Auto (Unsp spec) [#/Vol]Ordered By: Charlotte Gibbs on 09-28-2024 Lymphocytes (Bld) [#/Vol] 2.04 10*3/uL 0.83-4.51 [facility] Lymphocytes/100 WBC Auto (Un sp spec)Ordered By: Charlotte Gibbs on 09-28-2024 Lymphocytes/100 WBC (Bld) 22.8 % 19-41 [facility] MCV (mean corpuscular volume ) determinationOrdered By: Charlotte Gibbs on 09-28-2024 MCV (RBC) [Entitic vol] 84.8 fL 81-99 [facility] Mean corpuscular hemoglobin (MCH) determinationOrdered By: Charlotte Gibbs on 09-28-2024 MCH (RBC) [Entitic mass] 26.4 pg Low 27.0-32.0 [facility] Mean corpuscular hemoglobin concentration (MCHC) determinationOrdered By: Charlotte Gibbs on 09-28-2024 MCHC (RBC) [Mass/Vol] 31.1 g/dL Low 32-36 [facility] Mean platelet volume determi nationOrdered By: Charlotte Gibbs on 09-28-2024 Platelet mean volume (Bld) [Entitic vol] 10.0 fL 6.2-12.0 [facility] Monocyte percentageOrdered B y: Charlotte Gibbs on 09-28-2024 Monocytes/100 WBC (Bld) 5.8 % 0-10 [facility] Neutrophil percentageOrdered By: Charlotte Gibbs on 09-28-2024 Neutrophils/100 WBC (Bld) 65.7 % 47-70 [facility] No Panel InformationOrdered By: Charlotte Gibbs on 09-28-2024 21 U/L <32 [facility] Nucleated red blood cell per centageOrdered By: Charlotte Gibbs on 09-28-2024 Nucleated RBC/100 WBC (Bld) [Ratio] 0 % 0-5 [facility] Platelet countOrdered By: Mathew Gibbs on 09-28-2024 Platelets (Bld) [#/Vol] 344 10*3/uL 150-450 [facility] Potassium (Unsp spec) [Mass/ Vol]Ordered By: Charlotte Gibbs on 09-28-2024 Potassium [Moles/Vol] 3.9 mmol/L 3.3-5.1 [facility] Potassium measurement (mass/ volume)Ordered By: Charlotte Gibbs on 09-28-2024 Potassium (Unsp spec) [Mass/Vol] 3.9 mmol/L 3.3-5.1 [facility] RBC Auto (Bld) [#/Vol]Ordere d By: Charlotte Gibbs on 09-28-2024 RBC (Bld) [#/Vol] 4.09 10*6/uL Low 4.2-5.4 [facility] Serum creatinine measurement (mass/volume)Ordered By: Charlotte Gibbs on 09-28-2024 Creatinine [Mass/Vol] 0.62 mg/dL Low 0.70-1.20 [facility] Serum globulin measurementOr dered By: Charlotte Gibbs on 09-28-2024 Globulin (S) [Mass/Vol] 3.5 g/dL 2.2-4.2 [facility] Serum glucose measurement (m ass/volume)Ordered By: Charlotte Gibbs on 09-28-2024 Glucose [Mass/Vol] 92 mg/dL 70-99 [facility] Serum or plasma alanine barton otransferase (ALT) measurementOrdered By: Charlotte Gibbs on 09-28-2024 ALT [Catalytic activity/Vol] 17 U/L <35 [facility] Serum or plasma albumin chris urement (mass/volume)Ordered By: Charlotte Gibbs on 09-28-2024 Albumin [Mass/Vol] 3.4 g/dL Low 3.5-5.0 [facility] Serum or plasma albumin/glob ulin mass ratioOrdered By: Charlotte Gibbs on 09-28-2024 Albumin/Globulin [Mass ratio] 1.0 {ratio} 0.9-2.4 [facility] Serum or plasma alkaline saeed sphatase measurementOrdered By: Charlotte Gibbs on 09-28-2024 ALP [Catalytic activity/Vol] 101 U/L 35-104 [facility] Serum or plasma calcium chris urement (mass/volume)Ordered By: Charlotte Gibbs on 09-28-2024 Calcium [Mass/Vol] 10.1 mg/dL 7.6-11.0 [facility] Serum or plasma urea nitroge n measurement (mass/volume)Ordered By: Charlotte Gibbs on 09-28-2024 Urea nitrogen [Mass/Vol] 15 mg/dL 4-19 [facility] Sodium levelOrdered By: Judy Gibbs on 09-28-2024 Sodium [Moles/Vol] 136 mmol/L 133-145 [facility] Total proteinOrdered By: Princess Gibbs on 09-28-2024 Protein [Mass/Vol] 6.8 g/dL 5.9-8.4 [facility] White blood cell (WBC) count Ordered By: Charlotte Gibbs on 09-28-2024 WBC (Bld) [#/Vol] 8.9 10*3/uL 4.4-11.0 [facility] Basic Metabolic Profile (BMP )on 09-27-2024 BUN/CRE 19.5 RATIO Normal 10-20 [facility] Comment on above: Performed By: #### L 500.2500, L100.0100 ####[facility] [address] [place], [address] Calcium [Mass/Vol] 10.4 mg/dL Normal 7.6-11.0 [facility] Comment on above: Performed By: #### L 500.2500, L100.0100 ####[facility] [address] [place], [address] Chloride [Moles/Vol] 96 mmol/L Low 98-108 [facility] Comment on above: Performed By: #### L 500.2500, L100.0100 ####[facility] [address] [place], [address] CO2 [Moles/Vol] 25.0 mmol/L Normal 21.0-32.0 [facility] Comment on above: Performed By: #### L 500.2500, L100.0100 ####[facility] [address] [place], [address] Creatinine [Mass/Vol] 0.70 mg/dL Normal 0.70-1.20 [facility] Comment on above: Performed By: #### L 500.2500, L100.0100 ####[facility] [address] [place], [address] ECRCL 114.08 ml/min Normal 50-250 [facility] Comment on above: Performed By: #### L 500.2500, L100.0100 ####[facility] [address] [place], [address] GAP 13 Normal 5-15 [facility] Comment on above: Performed By: #### L 500.2500, L100.0100 ####[facility] [address] [place], [address] GFR/1.73 sq M.predicted among non-blacks MDRD (S/P/Bld) [Vol rate/Area] 109 mL/min/{1.73_m2} Normal >60 [facility] Comment on above: Result Comment: mL/m in/1.73m2 CKD-EPI Creatinine Equation (2020) Performed By: #### L 500.2500, L100.0100 ####[facility] [address] [place], [address] Glucose [Mass/Vol] 91 mg/dL Normal 70-99 [facility] Comment on above: Performed By: #### L 500.2500, L100.0100 ####[facility] [address] [place], [address] Potassium [Moles/Vol] 4.3 mmol/L Normal 3.3-5.1 [facility] Comment on above: Performed By: #### L 500.2500, L100.0100 ####[facility] [address], [address] Sodium [Moles/Vol] 134 mmol/L Normal 133-145 [facility] Comment on above: Performed By: #### L 500.2500, L100.0100 ####[facility] [address] [place], [address] Urea nitrogen [Mass/Vol] 14 mg/dL Normal 4-19 [facility] Comment on above: Performed By: #### L 500.2500, L100.0100 ####[facility] [address] [place], [address] Bedside Glucoseon 09-27-2024 FINGERSTICK GLU 68 mg/dL Low 74-106 [facility] Comment on above: Result Comment: WHITLEY GEMENT OF PATIENT CARE PER NURSING PROTOCOL Performed By: #### L 501.080 ####[facility] [address] [place], [address] FINGERSTICK GLU 85 mg/dL Normal 74-106 [facility] Comment on above: Result Comment: WHITLEY GEMENT OF PATIENT CARE PER NURSING PROTOCOL Performed By: #### L 501.080 ####[facility] [address], [address] FINGERSTICK GLU 92 mg/dL Normal 74-106 [facility] Comment on above: Result Comment: WHITLEY GEMENT OF PATIENT CARE PER NURSING PROTOCOL Performed By: #### L 501.080 ####[facility] [address], [address] FINGERSTICK GLU 95 mg/dL Normal 74-106 [facility] Comment on above: Result Comment: WHITLEY GEMENT OF PATIENT CARE PER NURSING PROTOCOL Performed By: #### L 501.080 ####[facility] [address] [place], [address] CBC W/Diff, Automatedon 04- 0-2025 Absolute Lymph 2.54 X10 3/uL Normal 0.83-4.51 [facility] Comment on above: Performed By: #### L 500.2500, L100.0100 ####[facility] [address] [place], [address] Absolute Neut 10.1 X10 3/uL High 2.0-7.7 [facility] Comment on above: Performed By: #### L 500.2500, L100.0100 ####[facility] [address] [place], [address] Basophils/100 WBC (Bld) 0.3 % Normal 0-1 [facility] Comment on above: Performed By: #### L 500.2500, L100.0100 ####[facility] [address] [place], [address] Eosinophils/100 WBC (Bld) 3.4 % Normal 0-5 [facility] Comment on above: Performed By: #### L 500.2500, L100.0100 ####[facility] [address] [place], [address] Erythrocyte distribution width (RBC) [Ratio] 14.0 % Normal 11.6-14.6 [facility] Comment on above: Performed By: #### L 500.2500, L100.0100 ####[facility] [address] [place], [address] Hematocrit (Bld) [Volume fraction] 33.0 % Low 37-47 [facility] Comment on above: Performed By: #### L 500.2500, L100.0100 ####[facility] [address] [place], [address] Hemoglobin (Bld) [Mass/Vol] 10.2 g/dL Low 12.0-15.0 [facility] Comment on above: Performed By: #### L 500.2500, L100.0100 ####[facility] [address] [place], [address] IG% 0.600 Normal 0.0-0.9 [facility] Comment on above: Result Comment: IG% - Immature Granulocytes (promyelocytes, myelocytes andmetamyelocytes) > 1% indicates that a LEFT SHIFT is Present. Performed By: #### L 500.2500, L100.0100 ####[facility] [address] [place], [address] Lymphocytes/100 WBC (Bld) 17.8 % Low 19-41 [facility] Comment on above: Performed By: #### L 500.2500, L100.0100 ####[facility] [address] [place], [address] MCH (RBC) [Entitic mass] 26.5 pg Low 27.0-32.0 [facility] Comment on above: Performed By: #### L 500.2500, L100.0100 ####[facility] [address] [place], [address] MCHC (RBC) [Mass/Vol] 30.9 g/dL Low 32-36 [facility] Comment on above: Performed By: #### L 500.2500, L100.0100 ####[facility] [address] [place], [address] MCV (RBC) [Entitic vol] 85.7 fL Normal 81-99 [facility] Comment on above: Performed By: #### L 500.2500, L100.0100 ####[facility] [address] [place], [address] Monocytes/100 WBC (Bld) 7.1 % Normal 0-10 [facility] Comment on above: Performed By: #### L 500.2500, L100.0100 ####[facility] [address] [place], [address] Neutrophils/100 WBC (Bld) 70.8 % High 47-70 [facility] Comment on above: Performed By: #### L 500.2500, L100.0100 ####[facility] [address] [place], [address] Nucleated RBC (Bld) [#/Vol] 0 10*3/uL Normal 0-5 [facility] Comment on above: Performed By: #### L 500.2500, L100.0100 ####[facility] [address] [place], [address] Platelet mean volume (Bld) [Entitic vol] 10.3 fL Normal 6.2-12.0 [facility] Comment on above: Performed By: #### L 500.2500, L100.0100 ####[facility] [address] [place], [address] Platelets (Bld) [#/Vol] 320 10*3/uL Normal 150-450 [facility] Comment on above: Performed By: #### L 500.2500, L100.0100 ####[facility] [address] [place], [address] RBC (Bld) [#/Vol] 3.85 10*6/uL Low 4.2-5.4 [facility] Comment on above: Performed By: #### L 500.2500, L100.0100 ####[facility] [address] [place], [address] RDW SD 44.2 fl High 35.1-43.9 [facility] Comment on above: Performed By: #### L 500.2500, L100.0100 ####[facility] [address] [place], [address] WBC (Bld) [#/Vol] 14.3 10*3/uL High 4.4-11.0 [facility] Comment on above: Performed By: #### L 500.2500, L100.0100 ####[facility] [address] [place], [address] Glucose measurement at [facility] deOrdered By: Charlotte Gibbs on 09-27-2024 Bedside Glucose (Misc Panel) 68 mg/dL Low 74-106 [facility] Comment on above: MANAGEMENT OF PATIEN T CARE PER NURSING PROTOCOL Glucose [Mass/Vol] 68 mg/dL Low 74-106 [facility] ANCAon 09-26-2024 Atypical pANCA <1:20 Normal Neg:<1:20 [facility] Comment on above: Result Comment: The atypical pANCA pattern has been observed in asignificant percentage of patients with ulcerative colitis,primary sclerosing cholangitis and autoimmune hepatitis. Performed By: #### L 3410.2350, L3200.0500, L3200.1100, L3890.6006, L3300.1200, L3100.5440, L3100.3425, L504.2610, L3410.9998, L3100.5850, L3100.5020, L3400.1490, L101.9900, L501.5000, L501.6710, L2100.0000, L3400.1500 ####[facility] [address] [place], [place], [address] Cytoplasmic Ab <1:20 Normal Neg:<1:20 [facility] Comment on above: Performed By: #### L 3410.2350, L3200.0500, L3200.1100, L3890.6006, L3300.1200, L3100.5440, L3100.3425, L504.2610, L3410.9998, L3100.5850, L3100.5020, L3400.1490, L101.9900, L501.5000, L501.6710, L2100.0000, L3400.1500 ####[facility] [address] [place], [place], [address] Perinuclear Ab. <1:20 Normal Neg:<1:20 [facility] Comment on above: Result Comment: The presence of positive fluorescence exhibiting P-ANCA orC-ANCA patterns alone is not specific for the diagnosis ofWegener's Granulomatosis (WG) or microscopic polyangiitis.Decisions about treatment should not be based solely onANCA IFA results. The [employer] Consensusrecommends follow up testing of positive sera with both OK-3 and MPO-ANCA enzyme immunoassays. As many as 5% serumsamples are positive only by EIA. Ref. AM J Clin Airfme4711;111:507-513. Performed By: #### L 3410.2350, L3200.0500, L3200.1100, L3890.6006, L3300.1200, L3100.5440, L3100.3425, L504.2610, L3410.9998, L3100.5850, L3100.5020, L3400.1490, L101.9900, L501.5000, L501.6710, L2100.0000, L3400.1500 ####[facility] [address] [place], [place], [address] Bedside Glucoseon 09-26-2024 FINGERSTICK GLU 107 mg/dL High 74-106 [facility] Comment on above: Result Comment: WHITLEY BAUTISTA OF PATIENT CARE PER NURSING PROTOCOL Performed By: #### L 501.080 ####[facility] [address] [place], [address] FINGERSTICK GLU 110 mg/dL High 74-106 [facility] Comment on above: Result Comment: WHITLEY GEMENT OF PATIENT CARE PER NURSING PROTOCOL Performed By: #### L 501.080 ####[facility] [address] [place], [address] FINGERSTICK GLU 115 mg/dL High 74-106 [facility] Comment on above: Result Comment: WHITLEY GEMENT OF PATIENT CARE PER NURSING PROTOCOL Performed By: #### L 501.080 ####[facility] [address] [place], [address] FINGERSTICK GLU 126 mg/dL High 74-106 [facility] Comment on above: Result Comment: WHITLEY GEMENT OF PATIENT CARE PER NURSING PROTOCOL Performed By: #### L 501.080 ####[facility] [address] [place], [address] FINGERSTICK GLU 117 mg/dL High 74-106 [facility] Comment on above: Result Comment: WHITLEY GEMENT OF PATIENT CARE PER NURSING PROTOCOL Performed By: #### L 501.080 ####[facility] [address] [place], [address] CBC W/Diff, Automatedon 04-0 Absolute Lymph 1.98 X10 3/uL Normal 0.83-4.51 [facility] Comment on above: Performed By: #### L 500.4050, L501.5200, L501.9985, L100.0100, L501.2300 ####[facility] [address] [place], [address] Absolute Neut 18.7 X10 3/uL High 2.0-7.7 [facility] Comment on above: Performed By: #### L 500.4050, L501.5200, L501.9985, L100.0100, L501.2300 ####[facility] [address] [place], [address] Basophils/100 WBC (Bld) 0.2 % Normal 0-1 [facility] Comment on above: Performed By: #### L 500.4050, L501.5200, L501.9985, L100.0100, L501.2300 ####[facility] [address] [place], [address] Eosinophils/100 WBC (Bld) 0.8 % Normal 0-5 [facility] Comment on above: Performed By: #### L 500.4050, L501.5200, L501.9985, L100.0100, L501.2300 ####[facility] [address] [place], [address] Erythrocyte distribution width (RBC) [Ratio] 14.2 % Normal 11.6-14.6 [facility] Comment on above: Performed By: #### L 500.4050, L501.5200, L501.9985, L100.0100, L501.2300 ####[facility] [address] [place], [address] Hematocrit (Bld) [Volume fraction] 34.5 % Low 37-47 [facility] Comment on above: Performed By: #### L 500.4050, L501.5200, L501.9985, L100.0100, L501.2300 ####[facility] [address] [place], [address] Hemoglobin (Bld) [Mass/Vol] 10.7 g/dL Low 12.0-15.0 [facility] Comment on above: Performed By: #### L 500.4050, L501.5200, L501.9985, L100.0100, L501.2300 ####[facility] [address] [place], [address] IG% 0.800 Normal 0.0-0.9 [facility] Comment on above: Result Comment: IG% - Immature Granulocytes (promyelocytes, myelocytes andmetamyelocytes) > 1% indicates that a LEFT SHIFT is Present. Performed By: #### L 500.4050, L501.5200, L501.9985, L100.0100, L501.2300 ####[facility] [address] [place], [address] Lymphocytes/100 WBC (Bld) 8.8 % Low 19-41 [facility] Comment on above: Performed By: #### L 500.4050, L501.5200, L501.9985, L100.0100, L501.2300 ####[facility] [address] [place], [address] MCH (RBC) [Entitic mass] 26.4 pg Low 27.0-32.0 [facility] Comment on above: Performed By: #### L 500.4050, L501.5200, L501.9985, L100.0100, L501.2300 ####[facility] [address] [place], [address] MCHC (RBC) [Mass/Vol] 31.0 g/dL Low 32-36 [facility] Comment on above: Performed By: #### L 500.4050, L501.5200, L501.9985, L100.0100, L501.2300 ####[facility] [address] [place], [address] MCV (RBC) [Entitic vol] 85.0 fL Normal 81-99 [facility] Comment on above: Performed By: #### L 500.4050, L501.5200, L501.9985, L100.0100, L501.2300 ####[facility] [address] [place], [address] Monocytes/100 WBC (Bld) 6.5 % Normal 0-10 [facility] Comment on above: Performed By: #### L 500.4050, L501.5200, L501.9985, L100.0100, L501.2300 ####[facility] [address] [place], [address] Neutrophils/100 WBC (Bld) 82.9 % High 47-70 [facility] Comment on above: Performed By: #### L 500.4050, L501.5200, L501.9985, L100.0100, L501.2300 ####[facility] [address] [place], [address] Nucleated RBC (Bld) [#/Vol] 0 10*3/uL Normal 0-5 [facility] Comment on above: Performed By: #### L 500.4050, L501.5200, L501.9985, L100.0100, L501.2300 ####[facility] [address] [place], [address] Platelet mean volume (Bld) [Entitic vol] 9.9 fL Normal 6.2-12.0 [facility] Comment on above: Performed By: #### L 500.4050, L501.5200, L501.9985, L100.0100, L501.2300 ####[facility] [address] [place], [address] Platelets (Bld) [#/Vol] 349 10*3/uL Normal 150-450 [facility] Comment on above: Performed By: #### L 500.4050, L501.5200, L501.9985, L100.0100, L501.2300 ####[facility] [address] [place], [address] RBC (Bld) [#/Vol] 4.06 10*6/uL Low 4.2-5.4 [facility] Comment on above: Performed By: #### L 500.4050, L501.5200, L501.9985, L100.0100, L501.2300 ####[facility] [address] [place], [address] RDW SD 44.1 fl High 35.1-43.9 [facility] Comment on above: Performed By: #### L 500.4050, L501.5200, L501.9985, L100.0100, L501.2300 ####[facility] [address] [place], [address] WBC (Bld) [#/Vol] 22.6 10*3/uL High 4.4-11.0 [facility] Comment on above: Performed By: #### L 500.4050, L501.5200, L501.9985, L100.0100, L501.2300 ####[facility] [address] [place], [address] CMV Acute Antibody IgMon CMV Ab, IgM < 30.0 Normal 0.0-29.9 [facility] Comment on above: Result Comment: Nega tive <30.0 Equivocal 30.0 - 34.9 Positive >34.9A positive result is generally indicative of acuteinfection, reactivation or persistent IgM production.Performed at: [facility] [employer] [id number] Director: Yovani Pepper PhD, Phone: [phone] at: [facility] [address] [id number] Director: Jania aEgle MD, Phone: [phone] Performed By: #### L 3410.2350, L3200.0500, L3200.1100, L3890.6006, L3300.1200, L3100.5440, L3100.3425, L504.2610, L3410.9998, L3100.5850, L3100.5020, L3400.1490, L101.9900, L501.5000, L501.6710, L2100.0000, L3400.1500 ####[facility] [address] [place], [place], [address] CMV Antibody IgGon CMV AB IgG > 10.00 High 0.00-0.59 [facility] Comment on above: Result Comment: Nega tive <0.60 Equivocal 0.60 - 0.69 Positive >0.69 Performed By: #### L 3410.2350, L3200.0500, L3200.1100, L3890.6006, L3300.1200, L3100.5440, L3100.3425, L504.2610, L3410.9998, L3100.5850, L3100.5020, L3400.1490, L101.9900, L501.5000, L501.6710, L2100.0000, L3400.1500 ####[facility] [address] [place], [place], [address] Carbohydrate AG 19-9on 09-26 CA 19-9 30 U/mL Normal 0-35 [facility] Comment on above: Result Comment: [employer] Electrochemiluminescence Immunoassay(ECLIA)Values obtained with different assay methods or kits cannotbe used interchangeably. Results cannot be interpreted asabsolute evidence of the presence or absence of malignantdisease. Performed By: #### L 3410.2350, L3200.0500, L3200.1100, L3890.6006, L3300.1200, L3100.5440, L3100.3425, L504.2610, L3410.9998, L3100.5850, L3100.5020, L3400.1490, L101.9900, L501.5000, L501.6710, L2100.0000, L3400.1500 ####[facility] [address] [place], [place], [id number] Celiac AB,Comprehensiveon ANTIGLIADIN IGA 3 units Normal 0-19 [facility] Comment on above: Result Comment: Nega tive 0 - 19 Weak Positive 20 - 30 Moderate to Strong Positive >30 Performed By: #### L 3410.2350, L3200.0500, L3200.1100, L3890.6006, L3300.1200, L3100.5440, L3100.3425, L504.2610, L3410.9998, L3100.5850, L3100.5020, L3400.1490, L101.9900, L501.5000, L501.6710, L2100.0000, L3400.1500 ####[facility] [address] [place], [address] ANTIGLIADIN IGG 1 units Normal 0-19 [facility] Comment on above: Result Comment: Nega tive 0 - 19 Weak Positive 20 - 30 Moderate to Strong Positive >30 Performed By: #### L 3410.2350, L3200.0500, L3200.1100, L3890.6006, L3300.1200, L3100.5440, L3100.3425, L504.2610, L3410.9998, L3100.5850, L3100.5020, L3400.1490, L101.9900, L501.5000, L501.6710, L2100.0000, L3400.1500 ####[facility] [address] [place], [address] ENDOMYSIAL IGA Negative Normal Negative [facility] Comment on above: Performed By: #### L 3410.2350, L3200.0500, L3200.1100, L3890.6006, L3300.1200, L3100.5440, L3100.3425, L504.2610, L3410.9998, L3100.5850, L3100.5020, L3400.1490, L101.9900, L501.5000, L501.6710, L2100.0000, L3400.1500 ####[facility] [address] [place], [address] tTG IGA <2 Normal 0-3 [facility] Comment on above: Result Comment: Nega tive 0 - 3 Weak Positive 4 - 10 Positive >10 Tissue Transglutaminase (tTG) has been identified as the endomysial antigen. Studies have demonstr- ated that endomysial IgA antibodies have over 99% specificity for gluten sensitive enteropathy. Performed By: #### L 3410.2350, L3200.0500, L3200.1100, L3890.6006, L3300.1200, L3100.5440, L3100.3425, L504.2610, L3410.9998, L3100.5850, L3100.5020, L3400.1490, L101.9900, L501.5000, L501.6710, L2100.0000, L3400.1500 ####[facility] [address] [place], [address] tTG IGG 2 U/mL Normal 0-5 [facility] Comment on above: Result Comment: Nega tive 0 - 5 Weak Positive 6 - 9 Positive >9 Performed By: #### L 3410.2350, L3200.0500, L3200.1100, L3890.6006, L3300.1200, L3100.5440, L3100.3425, L504.2610, L3410.9998, L3100.5850, L3100.5020, L3400.1490, L101.9900, L501.5000, L501.6710, L2100.0000, L3400.1500 ####[facility] [address] [place], [address] Comprehensive Metabolic Prof ilon 09-26-2024 Albumin [Mass/Vol] 3.3 g/dL Low 3.5-5.0 [facility] Comment on above: Performed By: #### L 500.4050, L501.5200, L501.9985, L100.0100, L501.2300 ####[facility] [address] [place], [address] Albumin/Globulin [Mass ratio] 1.1 {ratio} Normal 0.9-2.4 [facility] Comment on above: Performed By: #### L 500.4050, L501.5200, L501.9985, L100.0100, L501.2300 ####[facility] [address] [place], [address] ALK PHOS 101 U/L Normal 35-104 [facility] Comment on above: Performed By: #### L 500.4050, L501.5200, L501.9985, L100.0100, L501.2300 ####[facility] [address] [place], [address] ALT [Catalytic activity/Vol] 17 U/L Normal <=34 [facility] Comment on above: Performed By: #### L 500.4050, L501.5200, L501.9985, L100.0100, L501.2300 ####[facility] [facility] [address] [place], [address] AST [Catalytic activity/Vol] 18 U/L Normal <=31 [facility] Comment on above: Performed By: #### L 500.4050, L501.5200, L501.9985, L100.0100, L501.2300 ####[facility] [address] [place], [address] Bilirubin [Mass/Vol] 0.60 mg/dL Normal 0.00-1.30 [facility] Comment on above: Performed By: #### L 500.4050, L501.5200, L501.9985, L100.0100, L501.2300 ####[facility] [address] [place], [address] BUN/CRE 13.9 RATIO Normal 10-20 [facility] Comment on above: Performed By: #### L 500.4050, L501.5200, L501.9985, L100.0100, L501.2300 ####[facility] [address] [place], [address] Calcium [Mass/Vol] 10.0 mg/dL Normal 7.6-11.0 [facility] Comment on above: Performed By: #### L 500.4050, L501.5200, L501.9985, L100.0100, L501.2300 ####[facility] [address] [place], [address] Chloride [Moles/Vol] 97 mmol/L Low 98-108 [facility] Comment on above: Performed By: #### L 500.4050, L501.5200, L501.9985, L100.0100, L501.2300 ####[facility] [address] [place], [address] CO2 [Moles/Vol] 24.8 mmol/L Normal 21.0-32.0 [facility] Comment on above: Performed By: #### L 500.4050, L501.5200, L501.9985, L100.0100, L501.2300 ####[facility] [address] [place], [address] Creatinine [Mass/Vol] 0.67 mg/dL Low 0.70-1.20 [facility] Comment on above: Performed By: #### L 500.4050, L501.5200, L501.9985, L100.0100, L501.2300 ####[facility] [address] [place], [address] ECRCL 119.32 ml/min Normal 50-250 [facility] Comment on above: Performed By: #### L 500.4050, L501.5200, L501.9985, L100.0100, L501.2300 ####[facility] [address] [place], [address] GAP 9 Normal 5-15 [facility] Comment on above: Performed By: #### L 500.4050, L501.5200, L501.9985, L100.0100, L501.2300 ####[facility] [address] [place], [address] GFR/1.73 sq M.predicted among non-blacks MDRD (S/P/Bld) [Vol rate/Area] 111 mL/min/{1.73_m2} Normal >60 [facility] Comment on above: Result Comment: mL/m in/1.73m2 CKD-EPI Creatinine Equation (2020) Performed By: #### L 500.4050, L501.5200, L501.9985, L100.0100, L501.2300 ####[facility] [address] [place], [address] Globulin (S) [Mass/Vol] 3.1 g/dL Normal 2.2-4.2 [facility] Comment on above: Performed By: #### L 500.4050, L501.5200, L501.9985, L100.0100, L501.2300 ####[facility] [address] [place], [address] Glucose [Mass/Vol] 130 mg/dL High 70-99 [facility] Comment on above: Performed By: #### L 500.4050, L501.5200, L501.9985, L100.0100, L501.2300 ####[facility] [address] [place], [address] Potassium [Moles/Vol] 4.5 mmol/L Normal 3.3-5.1 [facility] Comment on above: Performed By: #### L 500.4050, L501.5200, L501.9985, L100.0100, L501.2300 ####[facility] [address] [place], [address] Sodium [Moles/Vol] 131 mmol/L Low 133-145 [facility] Comment on above: Performed By: #### L 500.4050, L501.5200, L501.9985, L100.0100, L501.2300 ####[facility] [address] [place], [address] T PROT 6.4 g/dL Normal 5.9-8.4 [facility] Comment on above: Performed By: #### L 500.4050, L501.5200, L501.9985, L100.0100, L501.2300 ####[facility] [address] [place], [place], [id number] Urea nitrogen [Mass/Vol] 9 mg/dL Normal 4-19 [facility] Comment on above: Performed By: #### L 500.4050, L501.5200, L501.9985, L100.0100, L501.2300 ####[facility] [address] [place], [address] EBV Acute Prof IgG / IgMon 0 - EB Ab VCA, IgG > 600.0 High 0.0-17.9 [facility] Comment on above: Result Comment: Nega tive <18.0 Equivocal 18.0 - 21.9 Positive >21.9 Performed By: #### L 3410.2350, L3200.0500, L3200.1100, L3890.6006, L3300.1200, L3100.5440, L3100.3425, L504.2610, L3410.9998, L3100.5850, L3100.5020, L3400.1490, L101.9900, L501.5000, L501.6710, L2100.0000, L3400.1500 ####[facility] [address] [place], [address] EBV Ab VCA, IgM < 36.0 Normal 0.0-35.9 [facility] Comment on above: Result Comment: Nega tive <36.0 Equivocal 36.0 - 43.9 Positive >43.9 Performed By: #### L 3410.2350, L3200.0500, L3200.1100, L3890.6006, L3300.1200, L3100.5440, L3100.3425, L504.2610, L3410.9998, L3100.5850, L3100.5020, L3400.1490, L101.9900, L501.5000, L501.6710, L2100.0000, L3400.1500 ####[facility] [address] [place], [address] EBV NuAg Ab,IgG 83.9 U/mL High 0.0-17.9 [facility] Comment on above: Result Comment: Nega tive <18.0 Equivocal 18.0 - 21.9 Positive >21.9 Performed By: #### L 3410.2350, L3200.0500, L3200.1100, L3890.6006, L3300.1200, L3100.5440, L3100.3425, L504.2610, L3410.9998, L3100.5850, L3100.5020, L3400.1490, L101.9900, L501.5000, L501.6710, L2100.0000, L3400.1500 ####[facility] [address] [place], [address] INTERPRETATION Comment Normal . [facility] Comment on above: Result Comment: EBV Interpretation ChartKey: Antibody Present + Antibody Absent -Interpretation VCA-IgM VCA-IgG EBNA-IgGNo previous infection/ - - -SusceptiblePrimary infection (new + + -or recent)Past Infection +or- + +See comment below* + - -*Results indicate infection with EBV at some time however cannot predict the timing of the infection since antibodies to EBNA usually develop after primary infection or, alternatively, approximately 5-10% of patients with EBV never develop antibodies to EBNA. Performed By: #### L 3410.2350, L3200.0500, L3200.1100, L3890.6006, L3300.1200, L3100.5440, L3100.3425, L504.2610, L3410.9998, L3100.5850, L3100.5020, L3400.1490, L101.9900, L501.5000, L501.6710, L2100.0000, L3400.1500 ####[facility] [address] [place], [place], [phone] Hemoglobin A1con 09-26-2024 HbA1c (Bld) [Mass fraction] 5.5 % Low <=5.6 [facility] Comment on above: Performed By: #### L 500.4050, L501.5200, L501.9985, L100.0100, L501.2300 ####[facility] [address] [place], [place], [phone] Hemoglobin A1c percentageOrd ered By: Charlotte Gibbs on 09-26-2024 HbA1c (Bld) [Mass fraction] 5.5 % Low >5.7 [facility] JORGE + Protein Elect, Serumon 09-26-2024 Albumin [Mass/Vol] 2.6 g/dL Low 2.9-4.4 [facility] Comment on above: Order Comment: Y Performed By: #### L 3410.2350, L3200.0500, L3200.1100, L3890.6006, L3300.1200, L3100.5440, L3100.3425, L504.2610, L3410.9998, L3100.5850, L3100.5020, L3400.1490, L101.9900, L501.5000, L501.6710, L2100.0000, L3400.1500 ####[facility] [address] [place], [place], [phone] Albumin/Globulin [Mass ratio] 1.0 {ratio} Normal 0.7-1.7 [facility] Comment on above: Order Comment: Y Performed By: #### L 3410.2350, L3200.0500, L3200.1100, L3890.6006, L3300.1200, L3100.5440, L3100.3425, L504.2610, L3410.9998, L3100.5850, L3100.5020, L3400.1490, L101.9900, L501.5000, L501.6710, L2100.0000, L3400.1500 ####[facility] [address] [place], [place], [phone]) DDECW-7-VMQZ 0.2 g/dL Normal 0.0-0.4 [facility] Comment on above: Order Comment: Y Performed By: #### L 3410.2350, L3200.0500, L3200.1100, L3890.6006, L3300.1200, L3100.5440, L3100.3425, L504.2610, L3410.9998, L3100.5850, L3100.5020, L3400.1490, L101.9900, L501.5000, L501.6710, L2100.0000, L3400.1500 ####[facility] [address] [place], [place], [phone]) CLVKO-4-GKOL 1.1 g/dL High 0.4-1.0 [facility] Comment on above: Order Comment: Y Performed By: #### L 3410.2350, L3200.0500, L3200.1100, L3890.6006, L3300.1200, L3100.5440, L3100.3425, L504.2610, L3410.9998, L3100.5850, L3100.5020, L3400.1490, L101.9900, L501.5000, L501.6710, L2100.0000, L3400.1500 ####[facility] [address] [place], [place], [phone]) BETA GLOBULIN 1.1 g/dL Normal 0.7-1.3 [facility] Comment on above: Order Comment: Y Performed By: #### L 3410.2350, L3200.0500, L3200.1100, L3890.6006, L3300.1200, L3100.5440, L3100.3425, L504.2610, L3410.9998, L3100.5850, L3100.5020, L3400.1490, L101.9900, L501.5000, L501.6710, L2100.0000, L3400.1500 ####[facility] [address] [place], [place], [phone]) GAMMA GLOBULIN 0.5 g/dL Normal 0.4-1.8 [facility] Comment on above: Order Comment: Y Performed By: #### L 3410.2350, L3200.0500, L3200.1100, L3890.6006, L3300.1200, L3100.5440, L3100.3425, L504.2610, L3410.9998, L3100.5850, L3100.5020, L3400.1490, L101.9900, L501.5000, L501.6710, L2100.0000, L3400.1500 ####[facility] [address] [place], [place], [phone] Globulin (S) [Mass/Vol] 2.8 g/dL Normal 2.2-3.9 [facility] Comment on above: Order Comment: Y Performed By: #### L 3410.2350, L3200.0500, L3200.1100, L3890.6006, L3300.1200, L3100.5440, L3100.3425, L504.2610, L3410.9998, L3100.5850, L3100.5020, L3400.1490, L101.9900, L501.5000, L501.6710, L2100.0000, L3400.1500 ####[facility] [address] [place], [place], [phone] JORGE RESULT,S Comment Normal . [facility] Comment on above: Order Comment: Y Result Comment: No m onoclonality detected. Performed By: #### L 3410.2350, L3200.0500, L3200.1100, L3890.6006, L3300.1200, L3100.5440, L3100.3425, L504.2610, L3410.9998, L3100.5850, L3100.5020, L3400.1490, L101.9900, L501.5000, L501.6710, L2100.0000, L3400.1500 ####[facility] [address] [place], [address] IMMUNOGLOB A QN 169 mg/dL Normal 87-352 [facility] Comment on above: Order Comment: Y Performed By: #### L 3410.2350, L3200.0500, L3200.1100, L3890.6006, L3300.1200, L3100.5440, L3100.3425, L504.2610, L3410.9998, L3100.5850, L3100.5020, L3400.1490, L101.9900, L501.5000, L501.6710, L2100.0000, L3400.1500 ####[facility] [address] [place], [address] IMMUNOGLOB M QN 116 mg/dL Normal 26-217 [facility] Comment on above: Order Comment: Y Performed By: #### L 3410.2350, L3200.0500, L3200.1100, L3890.6006, L3300.1200, L3100.5440, L3100.3425, L504.2610, L3410.9998, L3100.5850, L3100.5020, L3400.1490, L101.9900, L501.5000, L501.6710, L2100.0000, L3400.1500 ####[facility] [address] [place], [place], [phone] M-Hany Not Observed Normal Not Observed [facility] Comment on above: Order Comment: Y Performed By: #### L 3410.2350, L3200.0500, L3200.1100, L3890.6006, L3300.1200, L3100.5440, L3100.3425, L504.2610, L3410.9998, L3100.5850, L3100.5020, L3400.1490, L101.9900, L501.5000, L501.6710, L2100.0000, L3400.1500 ####[facility] [address] [place], [place], [phone] NOTE: Comment Normal . [facility] Comment on above: Order Comment: Y Result Comment: Prot ein electrophoresis scan will follow via computer,mail, or pick up worker delivery. Performed By: #### L 3410.2350, L3200.0500, L3200.1100, L3890.6006, L3300.1200, L3100.5440, L3100.3425, L504.2610, L3410.9998, L3100.5850, L3100.5020, L3400.1490, L101.9900, L501.5000, L501.6710, L2100.0000, L3400.1500 ####[facility] [address] [place], [place], [phone] Protein [Mass/Vol] 5.4 g/dL Low 6.0-8.5 [facility] Comment on above: Order Comment: Y Performed By: #### L 3410.2350, L3200.0500, L3200.1100, L3890.6006, L3300.1200, L3100.5440, L3100.3425, L504.2610, L3410.9998, L3100.5850, L3100.5020, L3400.1490, L101.9900, L501.5000, L501.6710, L2100.0000, L3400.1500 ####[facility] [address] [place], [place], [phone] IgG Subclasseson 09-26-2024 IgG, SUBCLASS 1 247 mg/dL Low 248-810 [facility] Comment on above: Performed By: #### L 3410.2350, L3200.0500, L3200.1100, L3890.6006, L3300.1200, L3100.5440, L3100.3425, L504.2610, L3410.9998, L3100.5850, L3100.5020, L3400.1490, L101.9900, L501.5000, L501.6710, L2100.0000, L3400.1500 ####[facility] [address] [place], [place], [phone](853) IgG, SUBCLASS 2 185 mg/dL Normal 130-555 [facility] Comment on above: Performed By: #### L 3410.2350, L3200.0500, L3200.1100, L3890.6006, L3300.1200, L3100.5440, L3100.3425, L504.2610, L3410.9998, L3100.5850, L3100.5020, L3400.1490, L101.9900, L501.5000, L501.6710, L2100.0000, L3400.1500 ####[facility] [address] [place], [place], [phone](833) IgG, SUBCLASS 3 43 mg/dL Normal 15-102 [facility] Comment on above: Performed By: #### L 3410.2350, L3200.0500, L3200.1100, L3890.6006, L3300.1200, L3100.5440, L3100.3425, L504.2610, L3410.9998, L3100.5850, L3100.5020, L3400.1490, L101.9900, L501.5000, L501.6710, L2100.0000, L3400.1500 ####[facility] [address] [place], [place], [phone](917) IgG, SUBCLASS 4 6 mg/dL Normal 2-96 [facility] Comment on above: Performed By: #### L 3410.2350, L3200.0500, L3200.1100, L3890.6006, L3300.1200, L3100.5440, L3100.3425, L504.2610, L3410.9998, L3100.5850, L3100.5020, L3400.1490, L101.9900, L501.5000, L501.6710, L2100.0000, L3400.1500 ####[facility] [address] [place], [place], [phone] IGG,QUANT 539 mg/dL Low 586-1602 [facility] Comment on above: Performed By: #### L 3410.2350, L3200.0500, L3200.1100, L3890.6006, L3300.1200, L3100.5440, L3100.3425, L504.2610, L3410.9998, L3100.5850, L3100.5020, L3400.1490, L101.9900, L501.5000, L501.6710, L2100.0000, L3400.1500 ####[facility] [address], [address] Immunoglobulins G/A/M/Mk IMMUNOGLOB E QN 10 IU/mL Normal 6-495 [facility] Comment on above: Order Comment: Y Performed By: #### L 3410.2350, L3200.0500, L3200.1100, L3890.6006, L3300.1200, L3100.5440, L3100.3425, L504.2610, L3410.9998, L3100.5850, L3100.5020, L3400.1490, L101.9900, L501.5000, L501.6710, L2100.0000, L3400.1500 ####[facility] [address] [place], [address] L2100.0000on 09-26-2024 ACCA 11 units Normal 0-90 [facility] Comment on above: Result Comment: Nega tive: <80 Equivocal: 80-90 Positive: >90 Performed By: #### L 3410.2350, L3200.0500, L3200.1100, L3890.6006, L3300.1200, L3100.5440, L3100.3425, L504.2610, L3410.9998, L3100.5850, L3100.5020, L3400.1490, L101.9900, L501.5000, L501.6710, L2100.0000, L3400.1500 ####[facility] [address] [place], [place], [id number] ALCA 2 units Normal 0-60 [facility] Comment on above: Result Comment: Nega tive:<55 Equivocal: 55-60 Positive: >60 Performed By: #### L 3410.2350, L3200.0500, L3200.1100, L3890.6006, L3300.1200, L3100.5440, L3100.3425, L504.2610, L3410.9998, L3100.5850, L3100.5020, L3400.1490, L101.9900, L501.5000, L501.6710, L2100.0000, L3400.1500 ####[facility] [address] [place], [address] AMCA 12 units Normal 0-100 [facility] Comment on above: Result Comment: Nega tive: <90 Equivocal: 90-100 Positive: >100 This test was developed and its performance characteristics determined by [employer]. It has not been cleared or approved by the Food and Drug Administration. The FDA has determined that such clearance or approval is not necessary. Performed By: #### L 3410.2350, L3200.0500, L3200.1100, L3890.6006, L3300.1200, L3100.5440, L3100.3425, L504.2610, L3410.9998, L3100.5850, L3100.5020, L3400.1490, L101.9900, L501.5000, L501.6710, L2100.0000, L3400.1500 ####[facility] [address] [place], [place], [phone] Atypical pANCA Negative Normal Negative [facility] Comment on above: Performed By: #### L 3410.2350, L3200.0500, L3200.1100, L3890.6006, L3300.1200, L3100.5440, L3100.3425, L504.2610, L3410.9998, L3100.5850, L3100.5020, L3400.1490, L101.9900, L501.5000, L501.6710, L2100.0000, L3400.1500 ####[facility] [address] [place], [place], [phone] COMMENT Comment Normal . [facility] Comment on above: Result Comment: Mariposa laverne is not suggestive of Inflammatory Bowel Disease Performed By: #### L 3410.2350, L3200.0500, L3200.1100, L3890.6006, L3300.1200, L3100.5440, L3100.3425, L504.2610, L3410.9998, L3100.5850, L3100.5020, L3400.1490, L101.9900, L501.5000, L501.6710, L2100.0000, L3400.1500 ####[facility] [address] [place], [address] Orlin 25 units Normal 0-50 [facility] Comment on above: Result Comment: Nega tive: <45 Equivocal: 45-50 Positive: >50 Performed By: #### L 3410.2350, L3200.0500, L3200.1100, L3890.6006, L3300.1200, L3100.5440, L3100.3425, L504.2610, L3410.9998, L3100.5850, L3100.5020, L3400.1490, L101.9900, L501.5000, L501.6710, L2100.0000, L3400.1500 ####[facility] [address] [place], [place], [id number] MR/CON.PCM.GIon 09-26-2024 MR/CON.PCM.GI Normal [facility] Magnesiumon 09-26-2024 Magnesium [Mass/Vol] 1.9 mg/dL Normal 1.5-2.2 [facility] Comment on above: Performed By: #### L 500.4050, L501.5200, L501.9985, L100.0100, L501.2300 ####[facility] [address] [place], [address] Magnesium (Unsp spec) [Mass/ Vol]Ordered By: Charlotte Gibbs on 09-26-2024 Magnesium [Mass/Vol] 1.9 mg/dL 1.5-2.2 [facility] Magnesium measurement (mass/ volume)Ordered By: Charlotte Gibbs on 09-26-2024 Magnesium (Unsp spec) [Mass/Vol] 1.9 mg/dL 1.5-2.2 [facility] Phosphoruson 09-26-2024 Phosphate [Mass/Vol] 3.4 mg/dL Normal 2.7-4.5 [facility] Comment on above: Performed By: #### L 500.4050, L501.5200, L501.9985, L100.0100, L501.2300 ####[facility] [address] [place], [address] Serum phosphorus measurement Ordered By: Charlotte Gibbs on 09-26-2024 Phosphorus Level 3.4 mg/dL 2.7-4.5 [facility] Absolute neutrophil countOrd ered By: Ashu Garcia on 09-25-2024 Neutrophils (Bld) [#/Vol] 21.4 10*3/uL High 2.0-7.7 [facility] Anion gap in Serum or Plasma Ordered By: Ashu Garcia on 09-25-2024 Anion gap [Moles/Vol] 13 mmol/L 5-15 [facility] BUN/creatinine ratioOrdered By: Ashu Garcia on 09-25-2024 Urea nitrogen/Creatinine [Mass ratio] 11.6 mg/mg 10-20 [facility] Bacteria LM.HPF (Urine sed) [#/Area]Ordered By: Ashu Garcia on 09-25-2024 Urine Bacteria RARE /hpf None Seen [facility] Basic Metabolic Profile (BMP )on 09-25-2024 BUN Normal 4-19 [facility] Comment on above: Result Comment: Canc elled via OM: Order cancelled - Patient discharged Performed By: #### L 500.2500 ####[facility] [address], [address] BUN/CRE Normal 10-20 [facility] Comment on above: Result Comment: Canc elled via OM: Order cancelled - Patient discharged Performed By: #### L 500.2500 ####[facility] [address] [place], [address] Calcium Normal 7.6-11.0 [facility] Comment on above: Result Comment: Canc elled via OM: Order cancelled - Patient discharged Performed By: #### L 500.2500 ####[facility] [address] [place], [address] CL Normal 98-108 [facility] Comment on above: Result Comment: Canc elled via OM: Order cancelled - Patient discharged Performed By: #### L 500.2500 ####[facility] [address] [place], [address] CO2 Normal 21.0-32.0 [facility] Comment on above: Result Comment: Canc elled via OM: Order cancelled - Patient discharged Performed By: #### L 500.2500 ####[facility] [address] [place], [address] CREAT,SERUM Normal 0.70-1.20 [facility] Comment on above: Result Comment: Canc elled via OM: Order cancelled - Patient discharged Performed By: #### L 500.2500 ####[facility] [address] [place], [address] eGFR Normal >60 [facility] Comment on above: Result Comment: Canc elled via OM: Order cancelled - Patient discharged Performed By: #### L 500.2500 ####[facility] [address] [place], [address] GAP Normal 5-15 [facility] Comment on above: Result Comment: Canc elled via OM: Order cancelled - Patient discharged Performed By: #### L 500.2500 ####[facility] [address] [place], [address] GLU Normal 70-99 [facility] Comment on above: Result Comment: Canc elled via OM: Order cancelled - Patient discharged Performed By: #### L 500.2500 ####[facility] [address] [place], [address] Potassium Normal 3.3-5.1 [facility] Comment on above: Result Comment: Canc elled via OM: Order cancelled - Patient discharged Performed By: #### L 500.2500 ####[facility] [address] [place], [address] Basic Metabolic Profile (BMP) Normal 133-145 [facility] Comment on above: Result Comment: Canc elled via OM: Order cancelled - Patient discharged Performed By: #### L 500.2500 ####[facility] [address] [place], [address] BUN/CRE 11.6 RATIO Normal 10-20 [facility] Comment on above: Performed By: #### L 503.6005, L100.0100, L500.3400, L501.2450, L500.2500 ####[facility] [address] [place], [address] Calcium [Mass/Vol] 10.4 mg/dL Normal 7.6-11.0 [facility] Comment on above: Performed By: #### L 503.6005, L100.0100, L500.3400, L501.2450, L500.2500 ####[facility] [address] [place], [address] Chloride [Moles/Vol] 97 mmol/L Low 98-108 [facility] Comment on above: Performed By: #### L 503.6005, L100.0100, L500.3400, L501.2450, L500.2500 ####[facility] [address] [place], [address] CO2 [Moles/Vol] 22.9 mmol/L Normal 21.0-32.0 [facility] Comment on above: Performed By: #### L 503.6005, L100.0100, L500.3400, L501.2450, L500.2500 ####[facility] [address] [place], [address] Creatinine [Mass/Vol] 0.64 mg/dL Low 0.70-1.20 [facility] Comment on above: Performed By: #### L 503.6005, L100.0100, L500.3400, L501.2450, L500.2500 ####[facility] [address] [place], [address] ECRCL 123.00 ml/min Normal 50-250 [facility] Comment on above: Performed By: #### L 503.6005, L100.0100, L500.3400, L501.2450, L500.2500 ####[facility] [address] [place], [address] GAP 13 Normal 5-15 [facility] Comment on above: Performed By: #### L 503.6005, L100.0100, L500.3400, L501.2450, L500.2500 ####[facility] [address] [place], [address] GFR/1.73 sq M.predicted among non-blacks MDRD (S/P/Bld) [Vol rate/Area] 112 mL/min/{1.73_m2} Normal >60 [facility] Comment on above: Result Comment: mL/m in/1.73m2 CKD-EPI Creatinine Equation (2020) Performed By: #### L 503.6005, L100.0100, L500.3400, L501.2450, L500.2500 ####[facility] [address] [place], [address] Glucose [Mass/Vol] 209 mg/dL High 70-99 [facility] Comment on above: Performed By: #### L 503.6005, L100.0100, L500.3400, L501.2450, L500.2500 ####[facility] [address] [place], [address] Potassium [Moles/Vol] 4.6 mmol/L Normal 3.3-5.1 [facility] General Comment on above: Result Comment: Hemo lysis present, Results??could be affected.?? Performed By: #### L 503.6005, L100.0100, L500.3400, L501.2450, L500.2500 ####[facility] [address] [place], [address] Sodium [Moles/Vol] 133 mmol/L Normal 133-145 [facility] Comment on above: Performed By: #### L 503.6005, L100.0100, L500.3400, L501.2450, L500.2500 ####[facility] [address] [place], [address] Urea nitrogen [Mass/Vol] 7 mg/dL Normal 4-19 [facility] Comment on above: Performed By: #### L 503.6005, L100.0100, L500.3400, L501.2450, L500.2500 ####[facility] [address] [place], [address] Basophil percentageOrdered B y: Ashu Garcia on 09-25-2024 Basophils/100 WBC (Bld) 0.4 % 0-1 [facility] Bedside Glucoseon 09-25-2024 FINGERSTICK GLU 135 mg/dL High 74-106 [facility] Comment on above: Result Comment: WHITLEY GEMENT OF PATIENT CARE PER NURSING PROTOCOL Performed By: #### L 501.080 ####[facility] [address] [place], [address] FINGERSTICK GLU 136 mg/dL High 74-106 [facility] Comment on above: Result Comment: WHITLEY GEMENT OF PATIENT CARE PER NURSING PROTOCOL Performed By: #### L 501.080 ####[facility] [address] [place], [address] Bilirubin Test strip Ql (U)O rdered By: Ashu Garcia on 09-25-2024 Bilirubin Ql (U) Negative Negative [facility] Bilirubin directOrdered By: Ashu Garcia on 09-25-2024 Bilirubin.direct [Mass/Vol] mg/dL 0.00-0.30 [facility] Bilirubin, totalOrdered By: Ashu Garcia on 09-25-2024 Bilirubin [Mass/Vol] 0.38 mg/dL 0.00-1.30 [facility] Bilirubin.direct [Mass/Vol]O rdered By: Ashu Garcia on 09-25-2024 Direct Bilirubin < 0.08 mg/dL 0.00-0.30 [facility] Comment on above: Hemolysis present, R esults could be affected. Blood manual differential co mment interpretation (narrative result)Ordered By: Ashu Garcia on 09-25-2024 Manual differential comment Víctor (Bld) [Interp] SCANNED [facility] CBC W/Diff, Automatedon CBC W Auto Differential panel (Bld) Normal [facility] Comment on above: Performed By: #### L 503.6005, L100.0100, L500.3400, L501.2450, L500.2500 ####[facility] [address] [place], [address] Carbon dioxide, total [Moles /volume] in Central venous bloodOrdered By: Ashu Garcia on 09-25-2024 CO2 [Moles/Vol] 22.9 mmol/L 21.0-32.0 [facility] Chloride assayOrdered By: Brandy Garcia on 09-25-2024 Chloride [Moles/Vol] 97 mmol/L Low 98-108 [facility] Emergency Department Summary on 09-25-2024 Emergency Department Summary Normal [facility] Eosinophil percentageOrdered By: Ashu Garcia on 09-25-2024 Eosinophils/100 WBC (Bld) 1.8 % 0-5 [facility] Epithelial cells.squamous LM Ql (Urine sed)Ordered By: Ashu Garcia on 09-25-2024 Epithelial cells.squamous LM.HPF (Urine sed) [#/Area] 0 /[HPF] 5-10 [facility] Erythrocyte distribution wid th (RBC) [Ratio]Ordered By: Ashu Garcia on 09-25-2024 Erythrocyte distribution width (RBC) [Entitic vol] 41.6 fL 35.1-43.9 [facility] Erythrocyte distribution wid th ratioOrdered By: Ashu Garcia on 09-25-2024 Erythrocyte distribution width (RBC) [Ratio] 13.6 % 11.6-14.6 [facility] Estimation of creatinine yogesh aranceOrdered By: Ashu Garcia on 09-25-2024 Estimated Creatinine Clearance Calc 123.00 ml/min 50-250 [facility] GFR/1.73 sq M.predicted daysi g non-blacks MDRD (S/P/Bld) [Vol rate/Area]Ordered By: Ashu Garcia on 09-25-2024 Estimated GFR (MDRD) Non-Af Amer 112 >60 [facility] Comment on above: mL/min/1.73m2 CKD-EP I Creatinine Equation (2020) Glucose Ql (U)Ordered By: Brandy Garcia on 09-25-2024 Glucose (U) [Mass/Vol] 50 mg/dL High Normal [facility] H AND P Exam - Hospitaliston 09-25-2024 H&P Exam - Hospitalist Normal [facility] Hematocrit Auto (Bld) [Volum e fraction]Ordered By: Ashu Garcia on 09-25-2024 Hematocrit (Bld) [Volume fraction] 40.5 % 37-47 [facility] Hemoglobin measurementOrdere d By: Ashu Garcia on 09-25-2024 Hemoglobin (Bld) [Mass/Vol] 13.0 g/dL 12.0-15.0 [facility] Immature granulocytes/100 WB C Auto (Bld)Ordered By: Ashu Garcia on 09-25-2024 Immature granulocytes/100 WBC (Bld) 0.900 % 0.0-0.9 [facility] Comment on above: IG% - Immature Granu locytes (promyelocytes, myelocytes and metamyelocytes) > 1% indicates that a LEFT SHIFT is Present. Ketones Test strip Ql (U)Ord ered By: Ashu Garcia on 09-25-2024 Ketones Ql (U) Negative Negative [facility] L509.7001on 09-25-2024 Procalcitonin 0.09 ng/mL Normal <=0.10 [facility] Comment on above: Result Comment: Inte rpretation:<0.10-0.25 ng/mL: Antibiotic therapy discouraged. Bacterialinfection unlikely.0.25-0.50 ng/mL: Antibiotic therapy encouraged. Bacterialinfection possible.>0.50 ng/mL: Antibiotic therapy strongly encouraged.Suggestive of presence of bacterial infection.PCT should always be interpreted in the clinical context ofthe patient. Therefore, clinicians should use the PCTresults in conjunction with other laboratory findings andclinical signs of the patient. Performed By: #### L 509.7001 ####[facility] [address] [facility] [address] [place], [place], [id number] Laboratory - Chemistry and C hemistry - challengeOrdered By: Ashu Garcia on 09-25-2024 AST [Catalytic activity/Vol] 32 U/L <32 [facility] Comment on above: Hemolysis present, R esults could be affected. Lactic Acidon 09-25-2024 Lactate [Moles/Vol] 1.3 mmol/L Normal 0.0-2.0 [facility] Comment on above: Order Comment: Y Performed By: #### L 503.6005, L100.0100, L500.3400, L501.2450, L500.2500 ####[facility] [address] [place], [address] Lactic acid measurementOrder ed By: Ashu Garcia on 09-25-2024 Lactate [Moles/Vol] 1.3 mmol/L 0.0-2.0 [facility] Lipaseon 09-25-2024 Lipase [Catalytic activity/Vol] 287 U/L High 13-75 [facility] Comment on above: Result Comment: Plea se note:LIPASE revised reference range effective 22.New Lipase methodology. Expected to produce lower valuesthan the previous assay method.NEW Reference Range: 13 - 75 U/L Performed By: #### L 503.6005, L100.0100, L500.3400, L501.2450, L500.2500 ####[facility] [address] [place], [address] Lipase measurementOrdered By : Ashu Garcia on 09-25-2024 Lipase [Catalytic activity/Vol] 287 U/L High 13-75 [facility] Comment on above: Please note:LIPASE r evised reference range effective 22. New Lipase methodology. Expected to produce lower values than the previous assay method. NEW Reference Range: 13 - 75 U/L Liver Profileon 09-25-2024 Albumin [Mass/Vol] 4.0 g/dL Normal 3.5-5.0 [facility] Comment on above: Performed By: #### L 503.6005, L100.0100, L500.3400, L501.2450, L500.2500 ####[facility] [address] [place], [address] ALK PHOS 116 U/L High 35-104 [facility] Comment on above: Performed By: #### L 503.6005, L100.0100, L500.3400, L501.2450, L500.2500 ####[facility] [address] [place], [address] ALT [Catalytic activity/Vol] 23 U/L Normal <=34 [facility] Comment on above: Performed By: #### L 503.6005, L100.0100, L500.3400, L501.2450, L500.2500 ####[facility] [address] [place], [address] AST [Catalytic activity/Vol] 32 U/L Normal <=31 [facility] Comment on above: Result Comment: Hemo lysis present, Results??could be affected.?? Performed By: #### L 503.6005, L100.0100, L500.3400, L501.2450, L500.2500 ####[facility] [address] [place], [address] Bilirubin [Mass/Vol] 0.38 mg/dL Normal 0.00-1.30 [facility] Comment on above: Performed By: #### L 503.6005, L100.0100, L500.3400, L501.2450, L500.2500 ####[facility] [address] [place], [address] D BILI < 0.08 Normal 0.00-0.30 [facility] Comment on above: Result Comment: Hemo lysis present, Results??could be affected.?? Performed By: #### L 503.6005, L100.0100, L500.3400, L501.2450, L500.2500 ####[facility] [address] [place], [address] Globulin (S) [Mass/Vol] 3.7 g/dL Normal 2.2-4.2 [facility] Comment on above: Performed By: #### L 503.6005, L100.0100, L500.3400, L501.2450, L500.2500 ####[facility] [address] [place], [address] T PROT 7.7 g/dL Normal 5.9-8.4 [facility] Comment on above: Performed By: #### L 503.6005, L100.0100, L500.3400, L501.2450, L500.2500 ####[facility] [address] [place], [address] Lymphocytes Auto (Unsp spec) [#/Vol]Ordered By: Ashu Garcia on 09-25-2024 Lymphocytes (Bld) [#/Vol] 1.95 10*3/uL 0.83-4.51 [facility] Lymphocytes/100 WBC Auto (Un sp spec)Ordered By: Ashu Garcia on 09-25-2024 Lymphocytes/100 WBC (Bld) 7.7 % Low 19-41 [facility] MCV (mean corpuscular volume ) determinationOrdered By: Ashu Garcia on 09-25-2024 MCV (RBC) [Entitic vol] 83.2 fL 81-99 [facility] Manual differential comment Víctor (Bld) [Interp]Ordered By: Ashu Garcia on 09-25-2024 Differential Comment SCANNED [facility] Comment on above: NEUTROPHILLIA PRESEN T Mean corpuscular hemoglobin (MCH) determinationOrdered By: Ashu Garcia on 09-25-2024 MCH (RBC) [Entitic mass] 26.7 pg Low 27.0-32.0 [facility] Mean corpuscular hemoglobin concentration (MCHC) determinationOrdered By: Ashu Garcia on 09-25-2024 MCHC (RBC) [Mass/Vol] 32.1 g/dL 32-36 [facility] Mean platelet volume determi nationOrdered By: Ashu Garcia on 09-25-2024 Platelet mean volume (Bld) [Entitic vol] 9.7 fL 6.2-12.0 [facility] Microscopic analysis of urin e for red blood cells (RBC)Ordered By: Ashu Garcia on 09-25-2024 Urine RBC 0 SEEN /hpf 0-5 [facility] Monocyte percentageOrdered B y: Ashu Garcia on 09-25-2024 Monocytes/100 WBC (Bld) 4.8 % 0-10 [facility] Mucus LM Ql (Urine sed)Order ed By: Ashu Garcia on 09-25-2024 Mucus Ql (Urine sed) 0 SEEN /hpf [facility] Neutrophil percentageOrdered By: Ashu Garcia on 09-25-2024 Neutrophils/100 WBC (Bld) 84.4 % High 47-70 [facility] Nitrite Test strip Ql (U)Ord ered By: Ashu Garcia on 09-25-2024 Nitrite Ql (U) Negative Negative [facility] Nucleated red blood cell per centageOrdered By: Ashu Garcia on 09-25-2024 Nucleated RBC/100 WBC (Bld) [Ratio] 0 % 0-5 [facility] Pathologist review Víctor (Unsp spec) [Interp]Ordered By: Ashu Garcia on 09-25-2024 Differential Pathologist's Review GUSSET [employer]DER [facility] Comment on above: Previous reported re sult: Catie stephens Edited by: RAQUEL on 09/25/24:0534 AMENDED REPORT 09/25/24 0534 PATH REV previously reported as: Catie stephens Platelet countOrdered By: Brandy Garcia on 09-25-2024 Platelets (Bld) [#/Vol] 435 10*3/uL 150-450 [facility] Potassium (Unsp spec) [Mass/ Vol]Ordered By: Ashu Garcia on 09-25-2024 Potassium [Moles/Vol] 4.6 mmol/L 3.3-5.1 [facility] Comment on above: Hemolysis present, R esults could be affected. Procalcitonin IA [Mass/Vol]O rdered By: Ashu Garcia on 09-25-2024 Procalcitonin 0.09 ng/mL <0.11 [facility] Comment on above: Interpretation:<0.10 -0.25 ng/mL: Antibiotic therapy discouraged. Bacterial infection unlikely.0.25-0.50 ng/mL: Antibiotic therapy encouraged. Bacterial infection possible.>0.50 ng/mL: Antibiotic therapy strongly encouraged. Suggestive of presence of bacterial infection.PCT should always be interpreted in the clinical context of the patient. Therefore, clinicians should use the PCT results in conjunction with other laboratory findings and clinical signs of the patient. Procalcitonin [Mass/volume] in Serum or Plasma by ImmunoassayOrdered By: Ashu Garcia on 09-25-2024 Procalcitonin IA [Mass/Vol] 0.09 ng/mL <0.11 [facility] Protein Test strip Ql (U)Ord ered By: Ashu Garcia on 09-25-2024 Protein Ql (U) 30 mg/dl High Negative [facility] RBC Auto (Bld) [#/Vol]Ordere d By: Ashu Garcia on 09-25-2024 RBC (Bld) [#/Vol] 4.87 10*6/uL 4.2-5.4 [facility] Review by pathologistOrdered By: Ashu Garcia on 09-25-2024 Pathologist review Víctor (Unsp spec) [Interp] [employer] [facility] Serum creatinine measurement (mass/volume)Ordered By: Ashu Garcia on 09-25-2024 Creatinine [Mass/Vol] 0.64 mg/dL Low 0.70-1.20 [facility] Serum globulin measurementOr dered By: Ashu Garcia on 09-25-2024 Globulin (S) [Mass/Vol] 3.7 g/dL 2.2-4.2 [facility] Serum glucose measurement (m ass/volume)Ordered By: Ashu Garcia on 09-25-2024 Glucose [Mass/Vol] 209 mg/dL High 70-99 [facility] Serum or plasma alanine barton otransferase (ALT) measurementOrdered By: Ashu Garcia on 09-25-2024 ALT [Catalytic activity/Vol] 23 U/L <35 [facility] Serum or plasma albumin chris urement (mass/volume)Ordered By: Ashu Garcia on 09-25-2024 Albumin [Mass/Vol] 4.0 g/dL 3.5-5.0 [facility] Serum or plasma alkaline saeed sphatase measurementOrdered By: Ashu Garcia on 09-25-2024 ALP [Catalytic activity/Vol] 116 U/L High 35-104 [facility] Serum or plasma calcium chris urement (mass/volume)Ordered By: Ashu Garcia on 09-25-2024 Calcium [Mass/Vol] 10.4 mg/dL 7.6-11.0 [facility] Serum or plasma urea nitroge n measurement (mass/volume)Ordered By: Ashu Garcia on 09-25-2024 Urea nitrogen [Mass/Vol] 7 mg/dL 4- [facility] Sodium levelOrdered By: Shyam Garcia on 09-25-2024 Sodium [Moles/Vol] 133 mmol/L 133-145 [facility] Squamous epithelial cells de tection in urine sediment by light microscopyOrdered By: Ashu Garcia on 09-25-2024 Epithelial cells.squamous LM Ql (Urine sed) 0 SEEN /hpf - [facility] Total proteinOrdered By: Jason Garcia on 09-25-2024 Protein [Mass/Vol] 7.7 g/dL 5.9-8.4 [facility] Urinalysis, Completeon 09-25 BACTERIA RARE Normal None Seen [facility] Comment on above: Order Comment: LAWSON CTOR TO SPECIFY Performed By: #### L 400.0001 ####[facility] [address] [place], [address] EPI,SQUAMOUS 0 SEEN Normal - [facility] Comment on above: Order Comment: LAWSON CTOR TO SPECIFY Performed By: #### L 400.0001 ####[facility] [address] [place], [address] Mucus Ql (Urine sed) 0 SEEN Normal [facility] Comment on above: Order Comment: LAWSON CTOR TO SPECIFY Performed By: #### L 400.0001 ####[facility] [address] [place], [address] RBC 0 SEEN Normal 0-5 [facility] Comment on above: Order Comment: LAWSON CTOR TO SPECIFY Performed By: #### L 400.0001 ####[facility] [address] [place], [address] WBC 0 SEEN Normal 0-[address] [place] [address] Comment on above: Order Comment: LAWSON CTOR TO SPECIFY Performed By: #### L 400.0001 ####[facility] [address] [place], [address] Urine blood detectionOrdered By: Ashu Garcia on 09-25-2024 Urine Occult Blood Negative Negative [facility] Urine clarityOrdered By: Jason Garcia on 09-25-2024 Clarity (U) Clear Clear [facility] Urine color determinationOrd ered By: Ashu Garcia on 09-25-2024 Color (U) Yellow Yellow [facility] Urine glucose detectionOrder ed By: Ashu Garcia on 09-25-2024 Glucose Ql (U) 50 mg/dl High Normal [facility] Urine leukocyte esterase det ection by dipstickOrdered By: Ashu Garcia on 09-25-2024 Leukocyte esterase Test strip Ql (U) Negative Negative [facility] Urine pHOrdered By: Ashu Fong ndes on 09-25-2024 pH (U) 6.5 [pH] 5.0 - 8.0 [facility] Urine sediment bacteria coun t by microscopy (number/high power field)Ordered By: Ashu Garcia on 09-25-2024 Bacteria LM.HPF (Urine sed) [#/Area] RARE /hpf None Seen [facility] Urine specific gravity measu rementOrdered By: Ashu Garcia on 09-25-2024 Specific gravity (U) [Rel density] 1.020 1.002-1.030 [facility] Urine urobilinogen measureme ntOrdered By: Ashu Garcia on 09-25-2024 Urobilinogen Ql (U) Normal mg/dl Normal [facility] Urobilinogen Ql (U)Ordered B y: Ashu Garcia on 09-25-2024 Urine Urobilinogen Normal mg/dl Normal [facility] White blood cell (WBC) count Ordered By: Ashu Garcia on 09-25-2024 WBC (Bld) [#/Vol] 25.3 10*3/uL High 4.4-11.0 [facility] White blood cell countOrdere d By: Ashu Garcia on 09-25-2024 Urine WBC 0 SEEN /hpf 0-5 [facility] White blood cell count 0 SEEN /hpf 0-5 [facility] Abdomen/Pelvis W IV Cont ONL Yon 09-24-2024 Abdomen/Pelvis W IV Cont ONLY Normal [facility] Absolute lymphocyte countOrd ered By: Conner Landry on 09-24-2024 Lymphocytes Auto (Unsp spec) [#/Vol] 2.82 10*3/uL 0.83-4.51 [facility] Absolute neutrophil countOrd ered By: Conner Landry on 09-24-2024 Neutrophils (Bld) [#/Vol] 17.7 10*3/uL High 2.0-7.7 [facility] Amorphous sediment detection in urine sediment by light microscopyOrdered By: Conner Landry on 09-24-2024 Amorphous sediment LM Ql (Urine sed) 1+ [facility] Anion gap in Serum or Plasma Ordered By: Conner Landry on 09-24-2024 Anion gap [Moles/Vol] 13 mmol/L 5-15 [facility] Automated lymphocyte count a s percentage of total leukocytesOrdered By: Conner Landry on 09-24-2024 Lymphocytes/100 WBC Auto (Unsp spec) 12.7 % Low 19-41 [facility] BUN/creatinine ratioOrdered By: Conner Landry on 09-24-2024 Urea nitrogen/Creatinine [Mass ratio] 14.3 mg/mg 10-20 [facility] Basic Metabolic Profile (BMP )on 09-24-2024 BUN Normal 4-19 [facility] Comment on above: Result Comment: Canc elled via OM: Order cancelled - Patient discharged Performed By: #### L 500.2500 ####[facility] [address] [facility] [address] BUN/CRE Normal 10-20 [facility] Comment on above: Result Comment: Canc elled via OM: Order cancelled - Patient discharged Performed By: #### L 500.2500 ####[facility] [address] [facility] [address] Calcium Normal 7.6-11.0 [facility] Comment on above: Result Comment: Canc elled via OM: Order cancelled - Patient discharged Performed By: #### L 500.2500 ####[facility] [address] [place], [address] CL Normal 98-108 [facility] Comment on above: Result Comment: Canc elled via OM: Order cancelled - Patient discharged Performed By: #### L 500.2500 ####[facility] [address] [place], [address] CO2 Normal 21.0-32.0 [facility] Comment on above: Result Comment: Canc elled via OM: Order cancelled - Patient discharged Performed By: #### L 500.2500 ####[facility] [address] [place], [address] CREAT,SERUM Normal 0.70-1.20 [facility] Comment on above: Result Comment: Canc elled via OM: Order cancelled - Patient discharged Performed By: #### L 500.2500 ####[facility] [address] [place], [address] eGFR Normal >60 [facility] Comment on above: Result Comment: Canc elled via OM: Order cancelled - Patient discharged Performed By: #### L 500.2500 ####[facility] [address] [place], [address] GAP Normal 5-15 [facility] Comment on above: Result Comment: Canc elled via OM: Order cancelled - Patient discharged Performed By: #### L 500.2500 ####[facility] [address] [place], [address] GLU Normal 70-99 [facility] Comment on above: Result Comment: Canc elled via OM: Order cancelled - Patient discharged Performed By: #### L 500.2500 ####[facility] [address] [place], [address] Potassium Normal 3.3-5.1 [facility] Comment on above: Result Comment: Canc elled via OM: Order cancelled - Patient discharged Performed By: #### L 500.2500 ####[facility] [address] [place], [address] Basic Metabolic Profile (BMP) Normal 133-145 [facility] Comment on above: Result Comment: Canc elled via OM: Order cancelled - Patient discharged Performed By: #### L 500.2500 ####[facility] [address] [place], [address] BUN Normal 4-19 [facility] Comment on above: Result Comment: Canc elled via OM: MD Ordered Performed By: #### L 500.2500, L100.0100 ####[facility] [address] [place], [address] BUN/CRE Normal 10-20 [facility] Comment on above: Result Comment: Canc elled via OM: MD Ordered Performed By: #### L 500.2500, L100.0100 ####[facility] [address] [place], [address] Calcium Normal 7.6-11.0 [facility] Comment on above: Result Comment: Canc elled via OM: MD Ordered Performed By: #### L 500.2500, L100.0100 ####[facility] [address] [place], [address] CL Normal 98-108 [facility] Comment on above: Result Comment: Canc elled via OM: MD Ordered Performed By: #### L 500.2500, L100.0100 ####[facility] [address] [place], [address] CO2 Normal 21.0-32.0 [facility] Comment on above: Result Comment: Canc elled via OM: MD Ordered Performed By: #### L 500.2500, L100.0100 ####[facility] [address] [place], [address] CREAT,SERUM Normal 0.70-1.20 [facility] Comment on above: Result Comment: Canc elled via OM: MD Ordered Performed By: #### L 500.2500, L100.0100 ####[facility] [address] [place], [address] eGFR Normal >60 [facility] Comment on above: Result Comment: Canc elled via OM: MD Ordered Performed By: #### L 500.2500, L100.0100 ####[facility] [address] [place], [address] GAP Normal 5-15 [facility] Comment on above: Result Comment: Canc elled via OM: MD Ordered Performed By: #### L 500.2500, L100.0100 ####[facility] [address] [place], [address] GLU Normal 70-99 [facility] Comment on above: Result Comment: Canc elled via OM: MD Ordered Performed By: #### L 500.2500, L100.0100 ####[facility] [address] [place], [address] Potassium Normal 3.3-5.1 [facility] Comment on above: Result Comment: Canc elled via OM: MD Ordered Performed By: #### L 500.2500, L100.0100 ####[facility] [address] [place], [address] Basic Metabolic Profile (BMP) Normal 133-145 [facility] Comment on above: Result Comment: Canc elled via OM: MD Ordered Performed By: #### L 500.2500, L100.0100 ####[facility] [address] [place], [address] Basophil percentageOrdered B y: Conner Landry on 09-24-2024 Basophils/100 WBC (Bld) 0.4 % 0-1 [facility] Beta HCG ( test) Ql Ordered By: Conner Landry on 09-24-2024 Serum Test, Qualitative Negative [facility] Bilirubin Test strip Ql (U)O rdered By: Conner Landry on 09-24-2024 Bilirubin Ql (U) Negative Negative [facility] Bilirubin, totalOrdered By: Conner Landry on 09-24-2024 Bilirubin [Mass/Vol] 0.34 mg/dL 0.00-1.30 [facility] CBC W/Diff, Automatedon Absolute Lymph 2.82 X10 3/uL Normal 0.83-4.51 [facility] Comment on above: Performed By: #### L 500.2500, L100.0100 ####[facility] [address] [place], [address] Absolute Neut 17.7 X10 3/uL High 2.0-7.7 [facility] Comment on above: Performed By: #### L 500.2500, L100.0100 ####[facility] [address] [place], [address] Basophils/100 WBC (Bld) 0.4 % Normal 0-1 [facility] Comment on above: Performed By: #### L 500.2500, L100.0100 ####[facility] [address] [place], [address] Eosinophils/100 WBC (Bld) 2.3 % Normal 0-5 [facility] Comment on above: Performed By: #### L 500.2500, L100.0100 ####[facility] [address] [place], [address] Erythrocyte distribution width (RBC) [Ratio] 13.6 % Normal 11.6-14.6 [facility] Comment on above: Performed By: #### L 500.2500, L100.0100 ####[facility] [address] [place], [address] Hematocrit (Bld) [Volume fraction] 42.6 % Normal 37-47 [facility] Comment on above: Performed By: #### L 500.2500, L100.0100 ####[facility] [address] [place], [address] Hemoglobin (Bld) [Mass/Vol] 13.4 g/dL Normal 12.0-15.0 [facility] Comment on above: Performed By: #### L 500.2500, L100.0100 ####[facility] [address] [place], [address] IG% 1.000 High 0.0-0.9 [facility] Comment on above: Result Comment: IG% - Immature Granulocytes (promyelocytes, myelocytes andmetamyelocytes) > 1% indicates that a LEFT SHIFT is Present. Performed By: #### L 500.2500, L100.0100 ####[facility] [address] [place], [address] Lymphocytes/100 WBC (Bld) 12.7 % Low 19-41 [facility] Comment on above: Performed By: #### L 500.2500, L100.0100 ####[facility] [address] [place], [address] MCH (RBC) [Entitic mass] 26.6 pg Low 27.0-32.0 [facility] Comment on above: Performed By: #### L 500.2500, L100.0100 ####[facility] [address] [place], [address] MCHC (RBC) [Mass/Vol] 31.5 g/dL Low 32-36 [facility] Comment on above: Performed By: #### L 500.2500, L100.0100 ####[facility] [address] [place], [address] MCV (RBC) [Entitic vol] 84.5 fL Normal 81-99 [facility] Comment on above: Performed By: #### L 500.2500, L100.0100 ####[facility] [address] [place], [address] Monocytes/100 WBC (Bld) 3.9 % Normal 0-10 [facility] Comment on above: Performed By: #### L 500.2500, L100.0100 ####[facility] [address] [place], [address] Neutrophils/100 WBC (Bld) 79.7 % High 47-70 [facility] Comment on above: Performed By: #### L 500.2500, L100.0100 ####[facility] [address] [place], [address] Nucleated RBC (Bld) [#/Vol] 0 10*3/uL Normal 0-5 [facility] Comment on above: Performed By: #### L 500.2500, L100.0100 ####[facility] [address] [place], [address] Platelet mean volume (Bld) [Entitic vol] 9.5 fL Normal 6.2-12.0 [facility] Comment on above: Performed By: #### L 500.2500, L100.0100 ####[facility] [address] [place], [address] Platelets (Bld) [#/Vol] 483 10*3/uL High 150-450 [facility] Comment on above: Performed By: #### L 500.2500, L100.0100 ####[facility] [address] [place], [address] RBC (Bld) [#/Vol] 5.04 10*6/uL Normal 4.2-5.4 [facility] Comment on above: Performed By: #### L 500.2500, L100.0100 ####[facility] [address] [place], [address] RDW SD 42.2 fl Normal 35.1-43.9 [facility] Comment on above: Performed By: #### L 500.2500, L100.0100 ####[facility] [address] [place], [address] WBC (Bld) [#/Vol] 22.3 10*3/uL High 4.4-11.0 [facility] Comment on above: Performed By: #### L 500.2500, L100.0100 ####[facility] [address] [place], [address] CBC-Complete Blood Cnt No Di ffon 09-24-2024 HCT Normal 37-47 [facility] Comment on above: Result Comment: Canc elled via OM: Order cancelled - Patient discharged Performed By: #### L 100.0500 ####[facility] [address] [facility] [address] HGB Normal 12.0-15.0 [facility] Comment on above: Result Comment: Canc elled via OM: Order cancelled - Patient discharged Performed By: #### L 100.0500 ####[facility] [address] [place], [address] MCH Normal 27.0-32.0 [facility] Comment on above: Result Comment: Canc elled via OM: Order cancelled - Patient discharged Performed By: #### L 100.0500 ####[facility] [address] [place], [address] MCHC Normal 32-36 [facility] Comment on above: Result Comment: Canc elled via OM: Order cancelled - Patient discharged Performed By: #### L 100.0500 ####[facility] [address] [place], [address] MCV Normal 81-99 [facility] Comment on above: Result Comment: Canc elled via OM: Order cancelled - Patient discharged Performed By: #### L 100.0500 ####[facility] [address] [place], [address] PLT Normal 150-450 [facility] Comment on above: Result Comment: Canc elled via OM: Order cancelled - Patient discharged Performed By: #### L 100.0500 ####[facility] [address] [place], [address] RBC Normal 4.2-5.4 [facility] Comment on above: Result Comment: Canc elled via OM: Order cancelled - Patient discharged Performed By: #### L 100.0500 ####[facility] [address] [place], [address] RDW CV Normal 11.6-14.6 [facility] Comment on above: Result Comment: Canc elled via OM: Order cancelled - Patient discharged Performed By: #### L 100.0500 ####[facility] [address] [place], [address] RDW SD Normal 35.1-43.9 [facility] Comment on above: Result Comment: Canc elled via OM: Order cancelled - Patient discharged Performed By: #### L 100.0500 ####[facility] [address] [place], [address] WBC Normal 4.4-11.0 [facility] Comment on above: Result Comment: Canc elled via OM: Order cancelled - Patient discharged Performed By: #### L 100.0500 ####[facility] [address] [place], [address] Carbon dioxide, total [Moles /volume] in Central venous bloodOrdered By: Conner Landry on 09-24-2024 CO2 [Moles/Vol] 26.4 mmol/L 21.0-32.0 [facility] Chloride assayOrdered By: Joceline Landry on 09-24-2024 Chloride [Moles/Vol] 97 mmol/L Low 98-108 [facility] Comprehensive Metabolic Prof ilon 09-24-2024 Albumin [Mass/Vol] 4.3 g/dL Normal 3.5-5.0 [facility] Comment on above: Performed By: #### L 500.4050 ####[facility] [address] [place], [address] Albumin/Globulin [Mass ratio] 1.1 {ratio} Normal 0.9-2.4 [facility] Comment on above: Performed By: #### L 500.4050 ####[facility] [address] [place], [address] ALK PHOS 121 U/L High 35-104 [facility] Comment on above: Performed By: #### L 500.4050 ####[facility] [address] [place], [address] ALT [Catalytic activity/Vol] 29 U/L Normal <=34 [facility] Comment on above: Performed By: #### L 500.4050 ####[facility] [address] [place], [address] AST [Catalytic activity/Vol] 27 U/L Normal <=31 [facility] Comment on above: Performed By: #### L 500.4050 ####[facility] [address] [place], [address] Bilirubin [Mass/Vol] 0.34 mg/dL Normal 0.00-1.30 [facility] Comment on above: Performed By: #### L 500.4050 ####[facility] [address] [place], [address] BUN/CRE 14.3 RATIO Normal 10-20 [facility] Comment on above: Performed By: #### L 500.4050 ####[facility] [address] [place], [address] Calcium [Mass/Vol] 10.8 mg/dL Normal 7.6-11.0 [facility] Comment on above: Performed By: #### L 500.4050 ####[facility] [address] [place], [address] Chloride [Moles/Vol] 97 mmol/L Low 98-108 [facility] Comment on above: Performed By: #### L 500.4050 ####[facility] [address] [place], [address] CO2 [Moles/Vol] 26.4 mmol/L Normal 21.0-32.0 [facility] Comment on above: Performed By: #### L 500.4050 ####[facility] [address] [place], [address] Creatinine [Mass/Vol] 0.58 mg/dL Low 0.70-1.20 [facility] Comment on above: Performed By: #### L 500.4050 ####[facility] [address] [place], [address] ECRCL 141.04 ml/min Normal 50-250 [facility] Comment on above: Performed By: #### L 500.4050 ####[facility] [address] [place], [address] GAP 13 Normal 5-15 [facility] Comment on above: Performed By: #### L 500.4050 ####[facility] [address] [place], [address] GFR/1.73 sq M.predicted among non-blacks MDRD (S/P/Bld) [Vol rate/Area] 115 mL/min/{1.73_m2} Normal >60 [facility] Comment on above: Result Comment: mL/m in/1.73m2 CKD-EPI Creatinine Equation (2020) Performed By: #### L 500.4050 ####[facility] [address] [place], [address] Globulin (S) [Mass/Vol] 3.8 g/dL Normal 2.2-4.2 [facility] Comment on above: Performed By: #### L 500.4050 ####[facility] [address] [place], [address] Glucose [Mass/Vol] 155 mg/dL High 70-99 [facility] Comment on above: Performed By: #### L 500.4050 ####[facility] [address] [place], [address] Potassium [Moles/Vol] 4.4 mmol/L Normal 3.3-5.1 [facility] Comment on above: Performed By: #### L 500.4050 ####[facility] [address] [place], [address] Sodium [Moles/Vol] 136 mmol/L Normal 133-145 [facility] Comment on above: Performed By: #### L 500.4050 ####[facility] [address] [place], [address] T PROT 8.1 g/dL Normal 5.9-8.4 [facility] Comment on above: Performed By: #### L 500.4050 ####[facility] [address] [place], [address] Urea nitrogen [Mass/Vol] 8 mg/dL Normal 4-19 [facility] Comment on above: Performed By: #### L 500.4050 ####[facility] [address] [place], [address] Emergency Department Summary on 09-24-2024 Emergency Department Summary Normal [facility] Eosinophil percentageOrdered By: Conner Landry on 09-24-2024 Eosinophils/100 WBC (Bld) 2.3 % 0-5 [facility] Epithelial cells.squamous LM Ql (Urine sed)Ordered By: Conner Landry on 09-24-2024 Epithelial cells.squamous LM.HPF (Urine sed) [#/Area] 0 /[HPF] 5-10 [facility] Erythrocyte distribution wid th (RBC) [Ratio]Ordered By: Conner Landry on 09-24-2024 Erythrocyte distribution width (RBC) [Entitic vol] 42.2 fL 35.1-43.9 [facility] Erythrocyte distribution wid th ratioOrdered By: Conner Landry on 09-24-2024 Erythrocyte distribution width (RBC) [Ratio] 13.6 % 11.6-14.6 [facility] Erythrocyte distribution wid th standard deviationOrdered By: Conner Landry on 09-24-2024 Erythrocyte distribution width (RBC) [Ratio] 42.2 fl 35.1-43.9 [facility] Estimation of creatinine yogesh aranceOrdered By: Conner Landry on 09-24-2024 Estimated Creatinine Clearance Calc 141.04 ml/min 50-250 [facility] GFR/1.73 sq M.predicted daysi g non-blacks MDRD (S/P/Bld) [Vol rate/Area]Ordered By: Conner Landry on 09-24-2024 Estimated GFR (MDRD) Non-Af Amer 115 >60 [facility] Comment on above: mL/min/1.73m2 CKD-EP I Creatinine Equation (2020) Glomerular filtration rate ( GFR) estimation/1.73 sq m using serum, plasma, or whole bOrdered By: Conner Landry on 09-24-2024 GFR/1.73 sq M.predicted among non-blacks MDRD (S/P/Bld) [Vol rate/Area] 115 mL/min/{1.73_m2} >60 [facility] Glucose Ql (U)Ordered By: Joceline Landry on 09-24-2024 Urine Glucose (UA) Normal mg/dl Normal [facility] Hematocrit Auto (Bld) [Volum e fraction]Ordered By: Conner Landry on 09-24-2024 Hematocrit (Bld) [Volume fraction] 42.6 % 37-47 [facility] Hemoglobin measurementOrdere d By: Conner Landry on 09-24-2024 Hemoglobin (Bld) [Mass/Vol] 13.4 g/dL 12.0-15.0 [facility] Immature granulocytes/100 WB C Auto (Bld)Ordered By: Conner Landry on 09-24-2024 Immature granulocytes/100 WBC (Bld) 1.000 % High 0.0-0.9 [facility] Comment on above: IG% - Immature Granu locytes (promyelocytes, myelocytes and metamyelocytes) > 1% indicates that a LEFT SHIFT is Present. Ketones Test strip Ql (U)Ord ered By: Conner Landry on 09-24-2024 Ketones Ql (U) Negative Negative [facility] Laboratory - Chemistry and C hemistry - challengeOrdered By: Conner Landry on 09-24-2024 AST [Catalytic activity/Vol] 27 U/L <32 [facility] Lymphocytes Auto (Unsp spec) [#/Vol]Ordered By: Conner Landry on 09-24-2024 Lymphocytes (Bld) [#/Vol] 2.82 10*3/uL 0.83-4.51 [facility] Lymphocytes/100 WBC Auto (Un sp spec)Ordered By: Conner Landry on 09-24-2024 Lymphocytes/100 WBC (Bld) 12.7 % Low 19-41 [facility] MCV (mean corpuscular volume ) determinationOrdered By: Conner Landry on 09-24-2024 MCV (RBC) [Entitic vol] 84.5 fL 81-99 [facility] Mean corpuscular hemoglobin (MCH) determinationOrdered By: Conner Landry on 09-24-2024 MCH (RBC) [Entitic mass] 26.6 pg Low 27.0-32.0 [facility] Mean corpuscular hemoglobin concentration (MCHC) determinationOrdered By: Conner Landry on 09-24-2024 MCHC (RBC) [Mass/Vol] 31.5 g/dL Low 32-36 [facility] Mean platelet volume determi nationOrdered By: Conner Landry on 09-24-2024 Platelet mean volume (Bld) [Entitic vol] 9.5 fL 6.2-12.0 [facility] Microscopic analysis of urin e for red blood cells (RBC)Ordered By: Conner Landry on 09-24-2024 Urine RBC 0 SEEN /hpf 0-5 [facility] Monocyte percentageOrdered B y: Conner Landry on 09-24-2024 Monocytes/100 WBC (Bld) 3.9 % 0-10 [facility] Mucus LM Ql (Urine sed)Order ed By: Conner Landry on 09-24-2024 Mucus Ql (Urine sed) 0 SEEN /hpf [facility] Neutrophil percentageOrdered By: Conner Landry on 09-24-2024 Neutrophils/100 WBC (Bld) 79.7 % High 47-70 [facility] Nitrite Test strip Ql (U)Ord ered By: Conner Landry on 09-24-2024 Nitrite Ql (U) Negative Negative [facility] No Panel InformationOrdered By: Conner Landry on 09-24-2024 27 U/L <32 [facility] Nucleated red blood cell per centageOrdered By: Conner Landry on 09-24-2024 Nucleated RBC/100 WBC (Bld) [Ratio] 0 % 0-5 [facility] Platelet countOrdered By: Joceline Landry on 09-24-2024 Platelets (Bld) [#/Vol] 483 10*3/uL High 150-450 [facility] Potassium (Unsp spec) [Mass/ Vol]Ordered By: Conner Landry on 09-24-2024 Potassium [Moles/Vol] 4.4 mmol/L 3.3-5.1 [facility] Potassium measurement (mass/ volume)Ordered By: Conner Landry on 09-24-2024 Potassium (Unsp spec) [Mass/Vol] 4.4 mmol/L 3.3-5.1 [facility] ,Serum,hCG Quali.on 09-24-2024 HCG, SERUM QUAL Negative Normal [facility] Comment on above: Performed By: #### L 700.6800 ####[facility] [address] [place], [address] Protein Test strip Ql (U)Ord ered By: Conner Landry on 09-24-2024 Protein Ql (U) 30 mg/dl High Negative [facility] RBC Auto (Bld) [#/Vol]Ordere d By: Conner Landry on 09-24-2024 RBC (Bld) [#/Vol] 5.04 10*6/uL 4.2-5.4 [facility] Serum beta-hCG test, qualita tiveOrdered By: Conner Landry on 09-24-2024 Beta HCG ( test) Ql Negative [facility] Serum creatinine measurement (mass/volume)Ordered By: Conner Landry on 09-24-2024 Creatinine [Mass/Vol] 0.58 mg/dL Low 0.70-1.20 [facility] Serum globulin measurementOr dered By: Conner Landry on 09-24-2024 Globulin (S) [Mass/Vol] 3.8 g/dL 2.2-4.2 [facility] Serum glucose measurement (m ass/volume)Ordered By: Conner Landry on 09-24-2024 Glucose [Mass/Vol] 155 mg/dL High 70-99 [facility] Serum or plasma alanine barton otransferase (ALT) measurementOrdered By: Conner Landry on 09-24-2024 ALT [Catalytic activity/Vol] 29 U/L <35 [facility] Serum or plasma albumin chris urement (mass/volume)Ordered By: Conner Landry on 09-24-2024 Albumin [Mass/Vol] 4.3 g/dL 3.5-5.0 [facility] Serum or plasma albumin/glob ulin mass ratioOrdered By: Conner Landry on 09-24-2024 Albumin/Globulin [Mass ratio] 1.1 {ratio} 0.9-2.4 [facility] Serum or plasma alkaline saeed sphatase measurementOrdered By: Conner Landry on 09-24-2024 ALP [Catalytic activity/Vol] 121 U/L High 35-104 [facility] Serum or plasma calcium chris urement (mass/volume)Ordered By: Conner Landry on 09-24-2024 Calcium [Mass/Vol] 10.8 mg/dL 7.6-11.0 [facility] Serum or plasma urea nitroge n measurement (mass/volume)Ordered By: Conner Landry on 09-24-2024 Urea nitrogen [Mass/Vol] 8 mg/dL 4-19 [facility] Sodium levelOrdered By: Clifton Landry on 09-24-2024 Sodium [Moles/Vol] 136 mmol/L 133-145 [facility] Squamous epithelial cells de tection in urine sediment by light microscopyOrdered By: Conner Landry on 09-24-2024 Epithelial cells.squamous LM Ql (Urine sed) 0-5 SEEN /hpf 5-10 [facility] Total proteinOrdered By: Margi Landry on 09-24-2024 Protein [Mass/Vol] 8.1 g/dL 5.9-8.4 [facility] Urinalysis, Completeon 09-24 AMORPHOUS 1+ Normal [facility] Comment on above: Order Comment: CLEAN CATCH Performed By: #### L 400.0001 ####[facility] [address] [place], [address] EPI,SQUAMOUS 0-5 SEEN Normal 5-10 [facility] Comment on above: Order Comment: CLEAN CATCH Performed By: #### L 400.0001 ####[facility] [address] [place], [address] BACTERIA 0 SEEN Normal None Seen [facility] Comment on above: Order Comment: CLEAN CATCH Performed By: #### L 400.0001 ####[facility] [address] [place], [address] Mucus Ql (Urine sed) 0 SEEN Normal [facility] Comment on above: Order Comment: CLEAN CATCH Performed By: #### L 400.0001 ####[facility] [address] [place], [address] RBC 0 SEEN Normal 0-5 [facility] Comment on above: Order Comment: CLEAN CATCH Performed By: #### L 400.0001 ####[facility] [address] [place], [address] WBC 0 SEEN Normal 0-5 [facility] Comment on above: Order Comment: CLEAN CATCH Performed By: #### L 400.0001 ####[facility] [address] [place], [address] Urine blood detectionOrdered By: Conner Landry on 09-24-2024 Urine Occult Blood 250 /ul High Negative [facility] Urine clarityOrdered By: Margi Landry on 09-24-2024 Clarity (U) Cloudy Clear [facility] Urine color determinationOrd ered By: Conner Landry on 09-24-2024 Color (U) Straw Yellow [facility] Urine glucose detectionOrder ed By: Conner Landry on 09-24-2024 Glucose Ql (U) Normal mg/dl Normal [facility] Urine leukocyte esterase det ection by dipstickOrdered By: Conner Landry on 09-24-2024 Leukocyte esterase Test strip Ql (U) Negative Negative [facility] Urine pHOrdered By: Conner Landry on 09-24-2024 pH (U) 5.0 [pH] 5.0 - 8.0 [facility] Urine sediment bacteria coun t by microscopy (number/high power field)Ordered By: Conner Landry on 09-24-2024 Bacteria LM.HPF (Urine sed) [#/Area] 0 /[HPF] None Seen [facility] Urine specific gravity measu rementOrdered By: Conner Landry on 09-24-2024 Specific gravity (U) [Rel density] 1.025 1.002-1.030 [facility] Urine urobilinogen measureme ntOrdered By: Conner Landry on 09-24-2024 Urobilinogen Ql (U) Normal mg/dl Normal [facility] Urobilinogen Ql (U)Ordered B y: Conner Landry on 09-24-2024 Urine Urobilinogen Normal mg/dl Normal [facility] White blood cell (WBC) count Ordered By: Conner Landry on 09-24-2024 WBC (Bld) [#/Vol] 22.3 10*3/uL High 4.4-11.0 [facility] White blood cell countOrdere d By: Conner Landry on 09-24-2024 Urine WBC 0 SEEN /hpf 0-5 [facility] White blood cell count 0 SEEN /hpf 0-5 [facility] Basic Metabolic Profile (BMP )on 09-23-2024 BUN Normal 4-19 [facility] Comment on above: Result Comment: Canc elled via OM: Order cancelled - Patient discharged Performed By: #### L 500.2500 ####[facility] [address] [place], [address] BUN/CRE Normal 10-20 [facility] Comment on above: Result Comment: Canc elled via OM: Order cancelled - Patient discharged Performed By: #### L 500.2500 ####[facility] [address] [place], [address] Calcium Normal 7.6-11.0 [facility] Comment on above: Result Comment: Canc elled via OM: Order cancelled - Patient discharged Performed By: #### L 500.2500 ####[facility] [address] [place], [address] CL Normal 98-108 [facility] Comment on above: Result Comment: Canc elled via OM: Order cancelled - Patient discharged Performed By: #### L 500.2500 ####[facility] [address] [place], [address] CO2 Normal 21.0-32.0 [facility] Comment on above: Result Comment: Canc elled via OM: Order cancelled - Patient discharged Performed By: #### L 500.2500 ####[facility] [address] [place], [address] CREAT,SERUM Normal 0.70-1.20 [facility] Comment on above: Result Comment: Canc elled via OM: Order cancelled - Patient discharged Performed By: #### L 500.2500 ####[facility] [address] [place], [address] eGFR Normal >60 [facility] Comment on above: Result Comment: Canc elled via OM: Order cancelled - Patient discharged Performed By: #### L 500.2500 ####[facility] [address] [place], [address] GAP Normal 5-15 [facility] Comment on above: Result Comment: Canc elled via OM: Order cancelled - Patient discharged Performed By: #### L 500.2500 ####[facility] [address] [place], [address] GLU Normal 70-99 [facility] Comment on above: Result Comment: Canc elled via OM: Order cancelled - Patient discharged Performed By: #### L 500.2500 ####[facility] [address] [place], [address] Potassium Normal 3.3-5.1 [facility] Comment on above: Result Comment: Canc elled via OM: Order cancelled - Patient discharged Performed By: #### L 500.2500 ####[facility] [address] [place], [address] Basic Metabolic Profile (BMP) Normal 133-145 [facility] Comment on above: Result Comment: Canc elled via OM: Order cancelled - Patient discharged Performed By: #### L 500.2500 ####[facility] [address] [place], [address] Basic Metabolic Profile (BMP )on 09-22-2024 BUN Normal 4-19 [facility] Comment on above: Result Comment: Canc elled via OM: Order cancelled - Patient discharged Performed By: #### L 500.2500 ####[facility] [address] [place], [address] BUN/CRE Normal 10-20 [facility] Comment on above: Result Comment: Canc elled via OM: Order cancelled - Patient discharged Performed By: #### L 500.2500 ####[facility] [address] [place], [address] Calcium Normal 7.6-11.0 [facility] Comment on above: Result Comment: Canc elled via OM: Order cancelled - Patient discharged Performed By: #### L 500.2500 ####[facility] [address] [place], [address] CL Normal 98-108 [facility] Comment on above: Result Comment: Canc elled via OM: Order cancelled - Patient discharged Performed By: #### L 500.2500 ####[facility] [address] [place], [address] CO2 Normal 21.0-32.0 [facility] Comment on above: Result Comment: Canc elled via OM: Order cancelled - Patient discharged Performed By: #### L 500.2500 ####[facility] [address] [place], [address] CREAT,SERUM Normal 0.70-1.20 [facility] Comment on above: Result Comment: Canc elled via OM: Order cancelled - Patient discharged Performed By: #### L 500.2500 ####[facility] [address] [place], [address] eGFR Normal >60 [facility] Comment on above: Result Comment: Canc elled via OM: Order cancelled - Patient discharged Performed By: #### L 500.2500 ####[facility] [address] [place], [address] GAP Normal 5-15 [facility] Comment on above: Result Comment: Canc elled via OM: Order cancelled - Patient discharged Performed By: #### L 500.2500 ####[facility] [address] [place], [address] GLU Normal 70-99 [facility] Comment on above: Result Comment: Canc elled via OM: Order cancelled - Patient discharged Performed By: #### L 500.2500 ####[facility] [address] [place], [address] Potassium Normal 3.3-5.1 [facility] Comment on above: Result Comment: Canc elled via OM: Order cancelled - Patient discharged Performed By: #### L 500.2500 ####[facility] [address] [place], [address] Basic Metabolic Profile (BMP) Normal 133-145 [facility] Comment on above: Result Comment: Canc elled via OM: Order cancelled - Patient discharged Performed By: #### L 500.2500 ####[facility] [address] [place], [address] CBC-Complete Blood Cnt No Di ffon 09-22-2024 HCT Normal 37-47 [facility] Comment on above: Result Comment: Canc elled via OM: Order cancelled - Patient discharged Performed By: #### L 100.0500 ####[facility] [address] [place], [address] HGB Normal 12.0-15.0 [facility] Comment on above: Result Comment: Canc elled via OM: Order cancelled - Patient discharged Performed By: #### L 100.0500 ####[facility] [address] [place], [address] MCH Normal 27.0-32.0 [facility] Comment on above: Result Comment: Canc elled via OM: Order cancelled - Patient discharged Performed By: #### L 100.0500 ####[facility] [address] [place], [address] MCHC Normal 32-36 [facility] Comment on above: Result Comment: Canc elled via OM: Order cancelled - Patient discharged Performed By: #### L 100.0500 ####[facility] [address] [place], [address] MCV Normal 81-99 [facility] Comment on above: Result Comment: Canc elled via OM: Order cancelled - Patient discharged Performed By: #### L 100.0500 ####[facility] [address] [place], [address] PLT Normal 150-450 [facility] Comment on above: Result Comment: Canc elled via OM: Order cancelled - Patient discharged Performed By: #### L 100.0500 ####[facility] [address] [place], [address] RBC Normal 4.2-5.4 [facility] Comment on above: Result Comment: Canc elled via OM: Order cancelled - Patient discharged Performed By: #### L 100.0500 ####[facility] [address] [place], [address] RDW CV Normal 11.6-14.6 [facility] Comment on above: Result Comment: Canc elled via OM: Order cancelled - Patient discharged Performed By: #### L 100.0500 ####[facility] [address] [place], [address] RDW SD Normal 35.1-43.9 [facility] Comment on above: Result Comment: Canc elled via OM: Order cancelled - Patient discharged Performed By: #### L 100.0500 ####[facility] [address] [place], [address] WBC Normal 4.4-11.0 [facility] Comment on above: Result Comment: Canc elled via OM: Order cancelled - Patient discharged Performed By: #### L 100.0500 ####[facility] [address] [place], [address] [facility] Misc.on 09-22-2024 [facility] Misc. COMMENT Normal . [facility] Comment on above: Order Comment: [id number] 4PHOSPHATIDYLETHANOL WB RT Result Comment: Test Ordered: 300744 Phosphatidylethanol (PEth)PHOSPHATIDYLETHANOL Negative MX Reference Range: .Phosphatidylethanol (PEth) Negative ng/mL MX Reference Range: .Analyzed compound: PEth 16:0/18:1. 2-rddnpwsho-9-bqhtzr-dg-aebjsay-3-phosphoethanol.Analysis performed by Liquid Chromatography withTandem Mass Spectrometry (LC/MS/MS).Detection limit: 20 ng/mLPEth levels in excess of 20 ng/mL are considered evidenceof moderate to heavy ethanol consumption. However,the Center for Substance Abuse Treatment (CSAT) advisescaution in interpretation and use of biomarkers aloneto assess alcohol use. Results should be interpretedin the context of all available clinical and behavioralinformation.Reference: Substance Abuse and Mental Health Services Administration (2012). The Role of Biomarkers in the Treatment of Alcohol Use Disorders, 2012 Revision. Advisory, Volume 11, Issue 2.This test was developed and its performance characteristicsdetermined by [employer]. It has not been cleared or approvedby the Food and Drug Administration.Performed at: [employer] [address] [place] [address] [id number] Director: Faith Alvarado [facility], Phone: [phone] at: [facility] [employer] [id number] Director: Yovani Pepper PhD, Phone: [phone] Performed By: #### L 3410.9998 ####[facility] [address] [place], [address] Basic Metabolic Profile (BMP )on 09-21-2024 BUN Normal 4-19 [facility] Comment on above: Result Comment: Canc elled via OM: Order cancelled - Patient discharged Performed By: #### L 500.2500 ####[facility] [address] [facility] [address] BUN/CRE Normal 10-20 [facility] Comment on above: Result Comment: Canc elled via OM: Order cancelled - Patient discharged Performed By: #### L 500.2500 ####[facility] [address] [facility] [address] Calcium Normal 7.6-11.0 [facility] Comment on above: Result Comment: Canc elled via OM: Order cancelled - Patient discharged Performed By: #### L 500.2500 ####[facility] [address] [facility] [address] CL Normal 98-108 [facility] Comment on above: Result Comment: Canc elled via OM: Order cancelled - Patient discharged Performed By: #### L 500.2500 ####[facility] [address] [facility] [address] CO2 Normal 21.0-32.0 [facility] Comment on above: Result Comment: Canc elled via OM: Order cancelled - Patient discharged Performed By: #### L 500.2500 ####[facility] [address] [place], [address] CREAT,SERUM Normal 0.70-1.20 [facility] Comment on above: Result Comment: Canc elled via OM: Order cancelled - Patient discharged Performed By: #### L 500.2500 ####[facility] [address] [place], [address] eGFR Normal >60 [facility] Comment on above: Result Comment: Canc elled via OM: Order cancelled - Patient discharged Performed By: #### L 500.2500 ####[facility] [address] [place], [address] GAP Normal 5-15 [facility] Comment on above: Result Comment: Canc elled via OM: Order cancelled - Patient discharged Performed By: #### L 500.2500 ####[facility] [address] [place], [address] GLU Normal 70-99 [facility] Comment on above: Result Comment: Canc elled via OM: Order cancelled - Patient discharged Performed By: #### L 500.2500 ####[facility] [address] [place], [address] Potassium Normal 3.3-5.1 [facility] Comment on above: Result Comment: Canc elled via OM: Order cancelled - Patient discharged Performed By: #### L 500.2500 ####[facility] [address] [place], [address] Basic Metabolic Profile (BMP) Normal 133-145 [facility] Comment on above: Result Comment: Canc elled via OM: Order cancelled - Patient discharged Performed By: #### L 500.2500 ####[facility] [address] [place], [address] Basic Metabolic Profile (BMP )on 09-20-2024 BUN Normal 4-19 [facility] Comment on above: Result Comment: Canc elled via OM: Order cancelled - Patient discharged Performed By: #### L 500.2500 ####[facility] [address], [address] BUN/CRE Normal 10-20 [facility] Comment on above: Result Comment: Canc elled via OM: Order cancelled - Patient discharged Performed By: #### L 500.2500 ####[facility] [address] [place], [address] Calcium Normal 7.6-11.0 [facility] Comment on above: Result Comment: Canc elled via OM: Order cancelled - Patient discharged Performed By: #### L 500.2500 ####[facility] [address] [place], [address] CL Normal 98-108 [facility] Comment on above: Result Comment: Canc elled via OM: Order cancelled - Patient discharged Performed By: #### L 500.2500 ####[facility] [address] [place], [address] CO2 Normal 21.0-32.0 [facility] Comment on above: Result Comment: Canc elled via OM: Order cancelled - Patient discharged Performed By: #### L 500.2500 ####[facility] [address] [place], [address] CREAT,SERUM Normal 0.70-1.20 [facility] Comment on above: Result Comment: Canc elled via OM: Order cancelled - Patient discharged Performed By: #### L 500.2500 ####[facility] [address] [place], [address] eGFR Normal >60 [facility] Comment on above: Result Comment: Canc elled via OM: Order cancelled - Patient discharged Performed By: #### L 500.2500 ####[facility] [address] [place], [address] GAP Normal 5-15 [facility] Comment on above: Result Comment: Canc elled via OM: Order cancelled - Patient discharged Performed By: #### L 500.2500 ####[facility] [address] [place], [address] GLU Normal 70-99 [facility] Comment on above: Result Comment: Canc elled via OM: Order cancelled - Patient discharged Performed By: #### L 500.2500 ####[facility] [address] [place], [address] Potassium Normal 3.3-5.1 [facility] Comment on above: Result Comment: Canc elled via OM: Order cancelled - Patient discharged Performed By: #### L 500.2500 ####[facility] [address], [address] Basic Metabolic Profile (BMP) Normal 133-145 [facility] Comment on above: Result Comment: Canc elled via OM: Order cancelled - Patient discharged Performed By: #### L 500.2500 ####[facility] [address] [place], [address] CBC-Complete Blood Cnt No Di ffon 09-20-2024 HCT Normal 37-47 [facility] Comment on above: Result Comment: Canc elled via OM: Order cancelled - Patient discharged Performed By: #### L 100.0500 ####[facility] [address] [place], [address] HGB Normal 12.0-15.0 [facility] Comment on above: Result Comment: Canc elled via OM: Order cancelled - Patient discharged Performed By: #### L 100.0500 ####[facility] [address] [place], [address] MCH Normal 27.0-32.0 [facility] Comment on above: Result Comment: Canc elled via OM: Order cancelled - Patient discharged Performed By: #### L 100.0500 ####[facility] [address] [place], [address] MCHC Normal 32-36 [facility] Comment on above: Result Comment: Canc elled via OM: Order cancelled - Patient discharged Performed By: #### L 100.0500 ####[facility] [address] [place], [address] MCV Normal 81-99 [facility] Comment on above: Result Comment: Canc elled via OM: Order cancelled - Patient discharged Performed By: #### L 100.0500 ####[facility] [address] [place], [address] PLT Normal 150-450 [facility] Comment on above: Result Comment: Canc elled via OM: Order cancelled - Patient discharged Performed By: #### L 100.0500 ####[facility] [address] [place], [address] RBC Normal 4.2-5.4 [facility] Comment on above: Result Comment: Canc elled via OM: Order cancelled - Patient discharged Performed By: #### L 100.0500 ####[facility] [address] [place], [address] RDW CV Normal 11.6-14.6 [facility] Comment on above: Result Comment: Canc elled via OM: Order cancelled - Patient discharged Performed By: #### L 100.0500 ####[facility] [address] [place], [address] RDW SD Normal 35.1-43.9 [facility] Comment on above: Result Comment: Canc elled via OM: Order cancelled - Patient discharged Performed By: #### L 100.0500 ####[facility] [address] [place], [address] WBC Normal 4.4-11.0 [facility] Comment on above: Result Comment: Quinn rodriges via OM: Order cancelled - Patient discharged Performed By: #### L 100.0500 ####[facility] [address] [place], [place], [address] KENZIE Comprehensive Panelon KENZIE TABLE Comment Normal . [facility] Comment on above: Order Comment: DANILO NASCIMENTO. SPECIMEN SAYS COMPLETED BUT WASNT RAN Result Comment: Auto antibody Disease Association --------- Condition Frequency ---------Antinuclear Antibody, SLE, mixed connectiveDirect (KENZIE-D) tissue diseases ---------dsDNA SLE 40 - 60% ---------Chromatin Drug induced SLE 90% SLE 48 - 97% ---------SSA (Ro) SLE 25 - 35% Sjogren's Syndrome 40 - 70% Lupus 100% ---------SSB (La) SLE 10% Sjogren's Syndrome 30% ---------Sm (anti-Guerrero) SLE 15 - 30% ---------DITCHING MACHINE ENGINEER Mixed Connective Tissue Disease 95%(U1 nRNP, SLE 30 - 50%anti-ribonucleoprotein) Polymyositis and/or Dermatomyositis 20% ---------Scl-70 (antiDNA Scleroderma (diffuse) 20 - 35%topoisomerase) Crest 13% ---------Brianda-1 Polymyositis and/or Dermatomyositis 20 - 40% ---------Centromere B Scleroderma - Crest variant 80%Performed at: - [facility] [id number] Director: Yovani Pepper PhD, Phone: [phone] AMENDED REPORT 09/19/24 1245 COMMENT previously reported as: Test not performed Performed By: #### L 3100.5440 ####[facility] [address] [place], [address] ANTI-CENT B AB <0.2 Normal 0.0-0.9 [facility] Comment on above: Order Comment: DANILO NASCIMENTO. SPECIMEN SAYS COMPLETED BUT WASNT RAN Result Comment: AMENDED REPORT 09/19/241207 ANTI-CENT B previously reported as: Test not performed Performed By: #### L 3100.5440 ####[facility] [address] [place], [address] ANTI-DNA (DS)AB <1 Normal 0-9 [facility] Comment on above: Order Comment: DANILO NASCIMENTO. SPECIMEN SAYS COMPLETED BUT WASNT RAN Result Comment: Nega tive <5 Equivocal 5 - 9 Positive >9 AMENDED REPORT 09/19/241207 dsDNA AB previously reported as: Test not performed Performed By: #### L 3100.5440 ####[facility] [address] [place], [address] ANTI-BRIANDA-1 <0.2 Normal 0.0-0.9 [facility] Comment on above: Order Comment: DANILO NASCIMENTO. SPECIMEN SAYS COMPLETED BUT WASNT RAN Result Comment: AMENDED REPORT 09/19/241207 ANTI-BRIANDA previously reported as: Test not performed Performed By: #### L 3100.5440 ####[facility] [address] [place], [address] ANTI-SS-A < 0.2 Normal 0.0-0.9 [facility] Comment on above: Order Comment: DANILO NASCIMENTO. SPECIMEN SAYS COMPLETED BUT WASNT RAN Result Comment: AMENDED REPORT 09/19/241207 Anti-SS-A previously reported as: Test not performed Performed By: #### L 3100.5440 ####[facility] [address] [place], [address] ANTI-SS-B < 0.2 Normal 0.0-0.9 [facility] Comment on above: Order Comment: DANILO NASCIMENTO. SPECIMEN SAYS COMPLETED BUT WASNT RAN Result Comment: AMENDED REPORT 09/19/241207 Anti-SS-B previously reported as: Test not performed Performed By: #### L 3100.5440 ####[facility] [address] [place], [address] ANTICHROMATIN <0.2 Normal 0.0-0.9 [facility] Comment on above: Order Comment: DANILO NASCIMENTO. SPECIMEN SAYS COMPLETED BUT WASNT RAN Result Comment: AMENDED REPORT 09/19/241207 ANTICHROMATIN previously reported as: Test not performed Performed By: #### L 3100.5440 ####[facility] [address] [place], [address] ANTISCLERODERM <0.2 Normal 0.0-0.9 [facility] Comment on above: Order Comment: DANILO NASCIMENTO. SPECIMEN SAYS COMPLETED BUT WASNT RAN Result Comment: AMENDED REPORT 09/19/241207 ANTISCLER previously reported as: Test not performed Performed By: #### L 3100.5440 ####[facility] [address] [place], [address] DITCHING MACHINE ENGINEER Ab <0.2 Normal 0.0-0.9 [facility] Comment on above: Order Comment: DANILO NASCIMENTO. SPECIMEN SAYS COMPLETED BUT WASNT RAN Result Comment: AMENDED REPORT 09/19/241207 DITCHING MACHINE ENGINEER Ab previously reported as: Test not performed Performed By: #### L 3100.5440 ####[facility] [address] [place], [address] GUERRERO Ab <0.2 Normal 0.0-0.9 [facility] Comment on above: Order Comment: DANILO NASCIMENTO. SPECIMEN SAYS COMPLETED BUT WASNT RAN Result Comment: AMENDED REPORT 09/19/241207 GUERRERO Ab previously reported as: Test not performed Performed By: #### L 4524.5440 ####[facility] [address] [place], [address] Anion gap in Serum or Plasma Ordered By: Kris Gibbs on 2024 Anion gap [Moles/Vol] 14 mmol/L 5- [facility] BUN/creatinine ratioOrdered By: Kris Gibbs on 2024 Urea nitrogen/Creatinine [Mass ratio] 12.4 mg/mg - [facility] Basic Metabolic Profile (BMP )on 2024 BUN/CRE 12.4 RATIO Normal - [facility] Comment on above: Performed By: #### L 500.2500 ####[facility] [address] [place], [address] Calcium [Mass/Vol] 9.7 mg/dL Normal 7.6-11.0 [facility] Comment on above: Performed By: #### L 500.2500 ####[facility] [address] [place], [address] Chloride [Moles/Vol] 98 mmol/L Normal 98-108 [facility] Comment on above: Performed By: #### L 500.2500 ####[facility] [address] [place], [address] CO2 [Moles/Vol] 25.9 mmol/L Normal 21.0-32.0 [facility] Comment on above: Performed By: #### L 500.2500 ####[facility] [address] [place], [address] Creatinine [Mass/Vol] 0.57 mg/dL Low 0.70-1.20 [facility] Comment on above: Performed By: #### L 500.2500 ####[facility] [address] [place], [address] ECRCL 151.87 ml/min Normal 50-250 [facility] Comment on above: Performed By: #### L 500.2500 ####[facility] [address] [place], [address] GAP 14 Normal 5-15 [facility] Comment on above: Performed By: #### L 500.2500 ####[facility] [address] [place], [address] GFR/1.73 sq M.predicted among non-blacks MDRD (S/P/Bld) [Vol rate/Area] 115 mL/min/{1.73_m2} Normal >60 [facility] Comment on above: Result Comment: mL/m in/1.73m2 CKD-EPI Creatinine Equation (2020) Performed By: #### L 500.2500 ####[facility] [address] [place], [address] Glucose [Mass/Vol] 239 mg/dL High 70-99 [facility] Comment on above: Performed By: #### L 500.2500 ####[facility] [address] [place], [address] Potassium [Moles/Vol] 3.7 mmol/L Normal 3.3-5.1 [facility] Comment on above: Performed By: #### L 500.2500 ####[facility] [address] [place], [address] Sodium [Moles/Vol] 138 mmol/L Normal 133-145 [facility] Comment on above: Performed By: #### L 500.2500 ####[facility] [address] [place], [address] Urea nitrogen [Mass/Vol] 7 mg/dL Normal 4-19 [facility] Comment on above: Performed By: #### L 500.2500 ####[facility] [address] [place], [address] Carbon dioxide, total [Moles /volume] in Central venous bloodOrdered By: Kris Gibbs on 2024 CO2 [Moles/Vol] 25.9 mmol/L 21.0-32.0 [facility] Chloride assayOrdered By: Castro Gibbs on 2024 Chloride [Moles/Vol] 98 mmol/L 98-108 [facility] Discharge Instructionon 04-0 Discharge Instruction Normal [facility] Estimation of creatinine yogesh aranceOrdered By: Kris Gibbs on 2024 Estimated Creatinine Clearance Calc 151.87 ml/min 50-250 [facility] GFR/1.73 sq M.predicted daysi g non-blacks MDRD (S/P/Bld) [Vol rate/Area]Ordered By: Kris Gibbs on 2024 Estimated GFR (MDRD) Non-Af Amer 115 >60 [facility] Comment on above: mL/min/1.73m2 CKD-EP I Creatinine Equation (2020) Glomerular filtration rate ( GFR) estimation/1.73 sq m using serum, plasma, or whole bOrdered By: Kris Gibbs on 2024 GFR/1.73 sq M.predicted among non-blacks MDRD (S/P/Bld) [Vol rate/Area] 115 mL/min/{1.73_m2} >60 [facility] Potassium (Unsp spec) [Mass/ Vol]Ordered By: Kris Gibbs on 2024 Potassium [Moles/Vol] 3.7 mmol/L 3.3-5.1 [facility] Potassium measurement (mass/ volume)Ordered By: Kris Gibbs on 2024 Potassium (Unsp spec) [Mass/Vol] 3.7 mmol/L 3.3-5.1 [facility] Serum creatinine measurement (mass/volume)Ordered By: Kris Gibbs on 2024 Creatinine [Mass/Vol] 0.57 mg/dL Low 0.70-1.20 [facility] Serum glucose measurement (m ass/volume)Ordered By: Kris Gibbs on 2024 Glucose [Mass/Vol] 239 mg/dL High 70-99 [facility] [facility] Serum or plasma calcium chris urement (mass/volume)Ordered By: Kris Gibbs on 2024 Calcium [Mass/Vol] 9.7 mg/dL 7.6-11.0 [facility] Serum or plasma urea nitroge n measurement (mass/volume)Ordered By: Kris Gibbs on 2024 Urea nitrogen [Mass/Vol] 7 mg/dL 4-19 [facility] Sodium levelOrdered By: Vinicio Gibbs on 2024 Sodium [Moles/Vol] 138 mmol/L 133-145 [facility] 12 Lead EKGon 09-18-2024 12 Lead EKG Normal [facility] KENZIE Comprehensive Panelon KENZIE TABLE TNP Normal [facility] Comment on above: Performed By: #### L 3410.2350, L3200.0500, L3200.1100, L3890.6006, L3300.1200, L3100.5440, L3100.3425, L504.2610, L3410.9998, L3100.5850, L3100.5020, L3400.1490, L101.9900, L501.5000, L501.6710, L2100.0000, L3400.1500 ####[facility] [address] [place], [address] ASCA IgG abOrdered By: Cathi vasquez Friend on 09-18-2024 Saccharomyces cerevisiae (Orlin)IgG 25 units 0-50 [facility] Comment on above: Negative: <45 Equivo clayton: 45-50 Positive: >50 Addendum DocumentOrdered By: Arturo Sotelo on 09-18-2024 Serum Immunofixation Comments Comment . [facility] Comment on above: Protein electrophore sis scan will follow via computer,mail, or pick up worker delivery. Albumin Elph [Mass/Vol]Order ed By: Arturo Sotelo on 09-18-2024 Albumin [Mass/Vol] 2.6 g/dL Low 2.9-4.4 [facility] Alpha 1 globulin Elph [Mass/ Vol]Ordered By: Arturo Sotelo on 09-18-2024 Kadsk-9-Oxetazxoc (JORGE) 0.2 g/dL 0.0-0.4 [facility] Ixudx-6-Vmxshddba (JORGE) 1.1 g/dL High 0.4-1.0 [facility] Atypical perinuclear antineu trophil cytoplasmic antibodies measurementOrdered By: Arturo Sotelo on 09-18-2024 Atypical p-ANCA <1:20 titer Neg:<1:20 [facility] Comment on above: *Additional results available. Contact laboratory/see report*The atypical pANCA pattern has been observed in asignificant percentage of patients with ulcerative colitis,primary sclerosing cholangitis and autoimmune hepatitis. Basic Metabolic Profile (BMP )on 09-18-2024 BUN/CRE 12.8 RATIO Normal 10-20 [facility] Comment on above: Performed By: #### L 500.2500 ####[facility] [address] [place], [address] Calcium [Mass/Vol] 9.5 mg/dL Normal 7.6-11.0 [facility] Comment on above: Performed By: #### L 500.2500 ####[facility] [address] [place], [address] Chloride [Moles/Vol] 96 mmol/L Low 98-108 [facility] Comment on above: Performed By: #### L 500.2500 ####[facility] [address] [place], [address] CO2 [Moles/Vol] 28.5 mmol/L Normal 21.0-32.0 [facility] Comment on above: Performed By: #### L 500.2500 ####[facility] [address] [place], [address] Creatinine [Mass/Vol] 0.36 mg/dL Low 0.70-1.20 [facility] Comment on above: Performed By: #### L 500.2500 ####[facility] [address] [place], [address] ECRCL 242.58 ml/min Normal 50-250 [facility] Comment on above: Performed By: #### L 500.2500 ####[facility] [address] [place], [address] GAP 13 Normal 5-15 [facility] Comment on above: Performed By: #### L 500.2500 ####[facility] [address] [place], [address] GFR/1.73 sq M.predicted among non-blacks MDRD (S/P/Bld) [Vol rate/Area] 129 mL/min/{1.73_m2} Normal >60 [facility] Comment on above: Result Comment: mL/m in/1.73m2 CKD-EPI Creatinine Equation (2020) Performed By: #### L 500.2500 ####[facility] [address] [place], [address] Glucose [Mass/Vol] 158 mg/dL High 70-99 [facility] Comment on above: Performed By: #### L 500.2500 ####[facility] [address] [place], [address] Potassium [Moles/Vol] 2.9 mmol/L Low 3.3-5.1 [facility] Comment on above: Performed By: #### L 500.2500 ####[facility] [address] [place], [address] Sodium [Moles/Vol] 138 mmol/L Normal 133-145 [facility] Comment on above: Performed By: #### L 500.2500 ####[facility] [address] [place], [address] Urea nitrogen [Mass/Vol] 5 mg/dL Normal 4-19 [facility] Comment on above: Performed By: #### L 500.2500 ####[facility] [address] [place], [address] Beta globulin Elph [Mass/Vol ]Ordered By: Arturo Sotelo on 09-18-2024 Beta-Globulins (JORGE) 1.1 g/dL 0.7-1.3 [facility] CA 19-9 agOrdered By: Maria L Sotelo on 09-18-2024 CA 19-9 ag 30 U/mL 0-35 [facility] CA 19-9 Antigen 30 U/mL 0-35 [facility] Comment on above: [employer] El ectrochemiluminescence Immunoassay(ECLIA)Values obtained with different assay methods or kits cannotbe used interchangeably. Results cannot be interpreted asabsolute evidence of the presence or absence of malignantdisease. CBC-Complete Blood Cnt No Di ffon 09-18-2024 Erythrocyte distribution width (RBC) [Ratio] 13.5 % Normal 11.6-14.6 [facility] Comment on above: Performed By: #### L 100.0500 ####[facility] [address] [place], [address] Hematocrit (Bld) [Volume fraction] 31.9 % Low 37-47 [facility] Comment on above: Performed By: #### L 100.0500 ####[facility] [address] [place], [address] Hemoglobin (Bld) [Mass/Vol] 10.5 g/dL Low 12.0-15.0 [facility] Comment on above: Performed By: #### L 100.0500 ####[facility] [address] [place], [address] MCH (RBC) [Entitic mass] 27.0 pg Normal 27.0-32.0 [facility] Comment on above: Performed By: #### L 100.0500 ####[facility] [address] [place], [address] MCHC (RBC) [Mass/Vol] 32.9 g/dL Normal 32-36 [facility] Comment on above: Performed By: #### L 100.0500 ####[facility] [address] [place], [address] MCV (RBC) [Entitic vol] 82.0 fL Normal 81-99 [facility] Comment on above: Performed By: #### L 100.0500 ####[facility] [address] [place], [address] Platelet mean volume (Bld) [Entitic vol] 9.6 fL Normal 6.2-12.0 [facility] Comment on above: Performed By: #### L 100.0500 ####[facility] [address] [place], [address] Platelets (Bld) [#/Vol] 316 10*3/uL Normal 150-450 [facility] Comment on above: Performed By: #### L 100.0500 ####[facility] [address] [place], [address] RBC (Bld) [#/Vol] 3.89 10*6/uL Low 4.2-5.4 [facility] Comment on above: Performed By: #### L 100.0500 ####[facility] [address] [place], [address] RDW SD 40.1 fl Normal 35.1-43.9 [facility] Comment on above: Performed By: #### L 100.0500 ####[facility] [address] [place], [address] WBC (Bld) [#/Vol] 7.5 10*3/uL Normal 4.4-11.0 [facility] Comment on above: Performed By: #### L 100.0500 ####[facility] [address] [place], [address] CMV IgG QnOrdered By: Maria L paz Friend on 09-18-2024 Cytomegalovirus IgG Antibody > 10.00 U/mL High 0.00-0.59 [facility] Comment on above: Negative <0.60 Equiv ocal 0.60 - 0.69 Positive >0.69 CMV IgM QnOrdered By: Maria L paz Friend on 09-18-2024 Cytomegalovirus IgM Antibody < 30.0 AU/mL 0.0-29.9 [facility] Comment on above: Negative <30.0 Equiv ocal 30.0 - 34.9 Positive >34.9A positive result is generally indicative of acuteinfection, reactivation or persistent IgM production.Performed at: - [facility] [place], [place] [id number] Director: Yovani Pepper PhD, Phone: [phone] at: [facility] [address] [id number] Director: Jania Eagle MD, Phone: [phone] CNCOon 09-18-2024 CNCO Letter Text Normal [facility] CNPNon 09-18-2024 CNPN Telephone (OBGWMA) -------- CASIMIRO LIU ([id number]) 1980 F Date Time Provider Department 09/18/24 NERISSA WATSON During your visit today, we recorded the following information about you: Hollie Greene 09/18/2024 9:14 AM Signed Patient did not arrive for her scheduled appointment on 09/17/24. A missed appointment letter sent through [employer]. Allergies As of Date: 09/18/2024 (No Known Allergies) Date Reviewed: 01/24/2023 Reviewed by: Nerissa Watson MD - Fully Assessed Reason for Visit: Missed Appointment [[id number]] Cmt: No show Prescriptions as of 09/18/2024 - oxyCODONE IR (ROXICODONE) 5 mg immediate release tablet Take 1 tablet by mouth every 6 hours as needed for pain. - acetaminophen (TYLENOL EXTRA STRENGTH) 500 mg tablet Take 2 tablets by mouth every 6 hours as needed for pain. - escitalopram oxalate (LEXAPRO ORAL) Take by mouth. - docusate sodium (COLACE) 100 mg capsule Take 1 capsule by mouth once daily. Problem List As Of Date 09/18/2024 Noted Resolved Vitamin D deficiency [E55.9] 07/05/2016 Tobacco abuse [Z72.0] 07/05/2016 03/15/2018 Moderate episode of recurrent major depressive *07/05/2016 Anxiety [F41.9] 07/05/2016 Onychomycosis [B35.1] 08/30/2017 Routine cervical smear [Z12.4] 09/09/2017 Visit for gynecologic examination [Z01.419] 09/09/2017 Encounter for initial prescription of other con*09/09/2017 Menorrhagia with regular cycle [N92.0] 09/09/2017 Secondary dysmenorrhea [N94.5] 09/09/2017 Papanicolaou smear of cervix with low grade squ*09/27/2017 Encounter for insertion of mirena IUD [Z30.430] 10/20/2017 Ventral hernia without obstruction or gangrene *03/07/2018 Hepatic steatosis [K76.0] 03/07/2018 Pancreatic abnormality [Q45.3] 03/07/2018 03/30/2018 Elevated blood pressure reading without diagnos*03/08/2018 Splenomegaly [R16.1] 03/08/2018 Ovarian cyst, right [N83.201] 03/15/2018 Breakthrough bleeding with IUD [N92.1, Z97.5] 01/06/2022 Pelvic cramping [R10.2] 01/06/2022 Encounter for routine checking of intrauterine *09/21/2022 Encounter for screening mammogram for malignant*09/21/2022 Papanicolaou smear of cervix with high grade sq*11/30/2022 Former smoker [Z87.891] 12/24/2022 Pap smear of cervix with high grade squamous in*12/24/2022 Preop testing [Z01.818] 12/24/2022 High grade squamous intraepithelial lesion (HGS*01/24/2023 S/P LEEP [Z98.890] 01/24/2023 Encounter Status:Closed by HOLLIE GREENE on 09/18/24 [facility] Centromere B antibody assayO rdered By: Arturo Sotelo on 09-18-2024 Centromere B Antibody <0.2 AI 0.0-0.9 [facility] Comment on above: Previous reported re sult: TNP AIEdited by: POLO on 09/19/24:1208 AMENDED REPORT 09/19/24 1208 ANTI-CENT B previously reported as: Test not performed Chitobioside IgA IA QnOrdere d By: Arturo Sotelo on 09-18-2024 Chitobioside Carbohydrat (ACCA) IgA 11 units 0-90 [facility] Comment on above: Negative: <80 Equivo clayton: 80-90 Positive: >90 Chitobioside IgA antibody as sayOrdered By: Arturo Sotelo on 09-18-2024 Chitobioside IgA IA Qn 11 units 0-90 [facility] Chromatin antibody assayOrde red By: Arturo Sotelo on 09-18-2024 Antichromatin Antibodies <0.2 AI 0.0-0.9 [facility] Comment on above: Previous reported re sult: TNP AIEdited by: POLO on 09/19/24:1208 AMENDED REPORT 09/19/24 1208 ANTICHROMATIN previously reported as: Test not performed DNA double strand Ab Qn (S)O rdered By: Arturo Sotelo on 09-18-2024 Anti-Double Strand DNA Antibody <1 IU/mL 0-9 [facility] Comment on above: Negative <5 Equivoca l 5 - 9 Positive >9Previous reported result: TNP IU/mLEdited by: POLO on 09/19/24:1208 AMENDED REPORT 09/19/24 1208 dsDNA AB previously reported as: Test not performed Deamidated gliadin IgA antib janeth assayOrdered By: Arturo Sotelo on 09-18-2024 Anti-Gliadin IgA Antibody 3 units 0-19 [facility] Comment on above: Negative 0 - 19 Weak Positive 20 - 30 Moderate to Strong Positive >30 Deamidated gliadin IgG antib janeth assayOrdered By: Arturo Sotelo on 09-18-2024 Anti-Gliadin IgG Antibody 1 units 0-19 [facility] Comment on above: Negative 0 - 19 Weak Positive 20 - 30 Moderate to Strong Positive >30 EBV capsid IgM Qn (S)Ordered By: Arturo Sotelo on 09-18-2024 Ammy-Santillan Virus Capsid Ag IgM Ab < 36.0 U/mL 0.0-35.9 [facility] Comment on above: Negative <36.0 Equiv ocal 36.0 - 43.9 Positive >43.9 EBV nuclear IgG Qn (S)Ordere d By: Arturo Friend on 09-18-2024 Ammy-Santillan [employer] Ag IgG 83.9 U/mL High 0.0-17.9 [facility] Comment on above: Negative <18.0 Equiv ocal 18.0 - 21.9 Positive >21.9 ERCP Biliary/Pancreason 04-0 ERCP Biliary/Pancreas Normal [facility] ERCP Reporton 09-18-2024 ERCP Report Normal [facility] Electrocardiogram reportOrde red By: Best Mary on 09-18-2024 EKG study [facility] Cardiovascular Services [address] [place] [address] 12 Lead EKG 09/18/24 0622 MR#: [id number] Acct: [id number] Name: CASIMIRO LIU Rep #:[id number] : 1980 43 From: Best Mary MD Attending Dr: Dr. Kris Gibbs, DO Status: ADM IN Ordering Dr: Garry Howard MD Date: 09/18/24 Location: [facility] Sex: F C Admitted: 09/12/24 Test Reason : AM EKG Blood Pressure : */* mmHG Vent. Rate : 63 BPM Atrial Rate : 63 BPM P-R Int : 132 ms QRS Dur : 86 ms QT Int : 432 ms P-R-T Axes : 38 26 40 degrees QTcB Int : 442 ms Normal sinus rhythm Normal ECG When compared with ECG of 12-Sep-2024 08:14, Nonspecific T wave abnormality now evident in Inferior leads Nonspecific T wave abnormality now evident in Lateral leads Confirmed by BEST MARY MD ([id number]), script editor BONITA MCKINNON ([id number]) on 09/18/2024 9:48:39 AM Referred By: Confirmed By: BEST MARY MD 09/18/24 0948 Date _ Best Mary MD CC: Dr. Kris Gibbs DO; Dr. Garry Howard MD; Dr. Mary Escobar MD ~ Signed [facility] Work Phone: Endomysial IgA antibody assa yOrdered By: Arturo Sotelo on 09-18-2024 Endomysial IgA Antibody Negative Negative [facility] Ammy-Santillan virus (EBV) vir al capsid antigen (VCA) IgG antibody assayOrdered By: Arturo Sotelo on 09-18-2024 Ammy-Santillan Virus Capsid Ag IgG Ab > 600.0 U/mL High 0.0-17.9 [facility] Comment on above: Negative <18.0 Equiv ocal 18.0 - 21.9 Positive >21.9 Erythrocyte distribution wid th (RBC) [Ratio]Ordered By: Kris Gibbs on 09-18-2024 Erythrocyte distribution width (RBC) [Entitic vol] 40.1 fL 35.1-43.9 [facility] Erythrocyte distribution wid th ratioOrdered By: Kris Gibbs on 09-18-2024 Erythrocyte distribution width (RBC) [Ratio] 13.5 % 11.6-14.6 [facility] Erythrocyte distribution wid th standard deviationOrdered By: Kris Gibbs on 09-18-2024 Erythrocyte distribution width (RBC) [Ratio] 40.1 fl 35.1-43.9 [facility] Gamma globulin Elph [Mass/Vo l]Ordered By: Arturo Sotelo on 09-18-2024 Gamma Globulins (JORGE) 0.5 g/dL 0.4-1.8 [facility] Hematocrit Auto (Bld) [Volum e fraction]Ordered By: Kris Gibbs on 09-18-2024 Hematocrit (Bld) [Volume fraction] 31.9 % Low 37-47 [facility] Hemoglobin measurementOrdere d By: Kris Gibbs on 09-18-2024 Hemoglobin (Bld) [Mass/Vol] 10.5 g/dL Low 12.0-15.0 [facility] IgA [Mass/Vol]Ordered By: Ra yuliet Sotelo on 09-18-2024 Immunoglobulin A 169 mg/dL 87-352 [facility] IgEOrdered By: Arturo burris on 09-18-2024 IgE 10 IU/mL 6-495 [facility] Immunoglobulin E 10 IU/mL 6-495 [facility] IgG [Mass/Vol]Ordered By: Ra yuliet Sotelo on 09-18-2024 Immunoglobulin G Not Reportable [facility] Immunoglobulin G Total 539 mg/dL Low 586-1602 [facility] IgG subclass 1 (S) [Mass/Vol ]Ordered By: Arturo Sotelo on 09-18-2024 Immunoglobulin G1 247 mg/dL Low 248-810 [facility] IgG subclass 2 (S) [Mass/Vol ]Ordered By: Arturo Sotelo on 09-18-2024 Immunoglobulin G2 185 mg/dL 130-555 [facility] IgG subclass 3 (S) [Mass/Vol ]Ordered By: Arturo Sotelo on 09-18-2024 Immunoglobulin G3 43 mg/dL 15-102 [facility] Immunoglobulin G4 measuremen tOrdered By: Arturo Sotelo on 09-18-2024 Immunoglobulin G4 6 mg/dL 2-96 [facility] Immunoglobulin M measurement Ordered By: Arturo Sotelo on 09-18-2024 Immunoglobulin M 116 mg/dL 26-217 [facility] Interpretation IEP [Interp]O rdered By: Arturo Sotelo on 09-18-2024 Immunofixation Screen Comment . [facility] Comment on above: No monoclonality det ected. Interpretation of Ammy-Ba rr virus antibody panelOrdered By: Arturo Sotelo on 09-18-2024 Ammy-Santillan Virus Ab Interpret Comment . [facility] Comment on above: EBV Interpretation C Cassandra: Antibody Present + Antibody Absent -Interpretation VCA-IgM VCA-IgG EBNA-IgGNo previous infection/ - - -SusceptiblePrimary infection (new + + -or recent)Past Infection +or- + +See comment below* + - -*Results indicate infection with EBV at some time however cannot predict the timing of the infection since antibodies to EBNA usually develop after primary infection or, alternatively, approximately 5-10% of patients with EBV never develop antibodies to EBNA. Interpretation of serum or p lasma protein pattern by immunofixation (narrative resultOrdered By: Arturo Sotelo on 09-18-2024 Protein Fractions Immunofixation Víctor [Interp] Not Observed g/dL Not Observed [facility] Brianda-1 antibody assayOrdered B y: Arturo Sotelo on 09-18-2024 BRIANDA-1 Antibody <0.2 AI 0.0-0.9 [facility] Comment on above: Previous reported re sult: TNP AIEdited by: POLO on 09/19/24:1208 AMENDED REPORT 09/19/24 1208 ANTI-BRIANDA previously reported as: Test not performed Laboratory - Miscellaneous t estsOrdered By: Arturo Sotelo on 09-18-2024 Laboratory comment Víctor (Report) Comment . [facility] Laboratory comment Víctor (Repo rt)Ordered By: Arturo Sotelo on 09-18-2024 IBD Serology Comment Comment . [facility] Comment on above: Pattern is not sugge stive of Inflammatory Bowel Disease Laminaribioside IgG IA QnOrd ered By: Arturo Sotelo on 09-18-2024 Laminaribioside Carbohyd (ALCA) IgG 2 units 0-60 [facility] Comment on above: Negative:<55 Equivoc al: 55-60 Positive: >60 Laminaribioside carbohydrate IgG antibody assayOrdered By: Arturo Sotelo on 09-18-2024 Laminaribioside IgG IA Qn 2 units 0-60 [facility] MCV (mean corpuscular volume ) determinationOrdered By: Kris Gibbs on 09-18-2024 MCV (RBC) [Entitic vol] 82.0 fL 81-99 [facility] MR/POSTOP.ANEon 09-18-2024 MR/POSTOP.ANE Normal [facility] MR/ANUUGSXU9cu 09-18-2024 MR/POSTOPAN2 Normal [facility] Mannobioside IgG IA QnOrdere d By: Arturo Sotelo on 09-18-2024 Mannobioside Carbohydrat (AMCA) IgG 12 units 0-100 [facility] Comment on above: Negative: <90 Equivo clayton: 90-100 Positive: >100 This test was developed and its performance characteristics determined by [employer]. It has not been cleared or approved by the Food and Drug Administration. The FDA has determined that such clearance or approval is not necessary. Mean corpuscular hemoglobin (MCH) determinationOrdered By: Kris Gibbs on 09-18-2024 MCH (RBC) [Entitic mass] 27.0 pg 27.0-32.0 [facility] Mean corpuscular hemoglobin concentration (MCHC) determinationOrdered By: Kris Gibbs on 09-18-2024 MCHC (RBC) [Mass/Vol] 32.9 g/dL 32-36 [facility] Mean platelet volume determi nationOrdered By: Kris Gibbs on 09-18-2024 Platelet mean volume (Bld) [Entitic vol] 9.6 fL 6.2-12.0 [facility] Neutrophil cytoplasmic Ab.cl assic Qn (S)Ordered By: Arturo Sotelo on 09-18-2024 Cytoplasmic ANCA (c-ANCA) Antibody <1:20 titer Neg:<1:20 [facility] Neutrophil cytoplasmic Ab.pe rinuclear IF (S) [Titer]Ordered By: Arturo Sotelo on 09-18-2024 Perinuclear ANCA (p-ANCA) Antibody <1:20 titer Neg:<1:20 [facility] Comment on above: The presence of posi tive fluorescence exhibiting P-ANCA orC-ANCA patterns alone is not specific for the diagnosis ofWegener's Granulomatosis (WG) or microscopic polyangiitis.Decisions about treatment should not be based solely onANCA IFA results. The International ANCA Group Consensusrecommends follow up testing of positive sera with both OK-3 and MPO-ANCA enzyme immunoassays. As many as 5% serumsamples are positive only by EIA. Ref. AM J Clin [id number];111:507-513. No Panel InformationOrdered By: Arturo Sotelo on 09-18-2024 Addendum Document Comment . [facility] Tissue Transglutaminase IgG Ab 2 U/mL 0-5 [facility] Comment on above: Negative 0 - 5 Weak Positive 6 - 9 Positive >9 2 U/mL 0-5 [facility] Platelet countOrdered By: Castro Gibbs on 09-18-2024 Platelets (Bld) [#/Vol] 316 10*3/uL 150-450 [facility] ,Urineon 09-18-2024 Beta HCG ( test) Ql (U) Negative Normal [facility] Comment on above: Order Comment: 317 Result Comment: Very dilute urine specimens, as indicated by a low specificgravity, may not contain textiles sales representative levels of hCG.If is still suspected, a first morning urinespecimen should be collected 48 hours later and tested. Performed By: #### L 400.7600 ####[facility] [address] [place] [place], [address] Protein Fractions Immunofixa tion Víctor [Interp]Ordered By: Arturo Sotelo on 09-18-2024 M-Hany (JORGE) Not Observed g/dL Not Observed [facility] RBC Auto (Bld) [#/Vol]Ordere d By: Kris Gibbs on 09-18-2024 RBC (Bld) [#/Vol] 3.89 10*6/uL Low 4.2-5.4 [facility] DITCHING MACHINE ENGINEER abOrdered By: Arturo Hernandez iend on 09-18-2024 DITCHING MACHINE ENGINEER Antibody <0.2 AI 0.0-0.9 [facility] Comment on above: Previous reported re sult: TNP AIEdited by: POLO on 09/19/24:1208 AMENDED REPORT 09/19/24 120 DITCHING MACHINE ENGINEER Ab previously reported as: Test not performed SCL-70 extractable nuclear A b Qn (S)Ordered By: Arturo Sotelo on 09-18-2024 Scl-70 (Scleroderma) Antibody <0.2 AI 0.0-0.9 [facility] Comment on above: Previous reported re sult: TNP AIEdited by: POLO on 09/19/24:1208 AMENDED REPORT 09/19/24 1208 ANTISCLER previously reported as: Test not performed SS-A IgG antibody assayOrder ed By: Arturo Sotelo on 09-18-2024 SS-A/Ro IgG Antibody < 0.2 AI 0.0-0.9 [facility] Comment on above: Previous reported re sult: TNP AIEdited by: POLO on 09/19/24:1208 AMENDED REPORT 09/19/24 1208 Anti-SS-A previously reported as: Test not performed SS-B IgG antibody assayOrder ed By: Arturo Sotelo on 09-18-2024 SS-B/La IgG Antibody < 0.2 AI 0.0-0.9 [facility] Comment on above: Previous reported re sult: TNP AIEdited by: POLO on 09/19/24:1208 AMENDED REPORT 09/19/24 1208 Anti-SS-B previously reported as: Test not performed Serum DNA double strand anti body assay (units/volume)Ordered By: Arturo Sotelo on 09-18-2024 DNA double strand Ab Qn (S) [IU]/mL 0-9 [facility] Serum Ammy Santillan virus cap nataliya IgM antibody assay (units/volume)Ordered By: Arturo Sotelo on 09-18-2024 EBV capsid IgM Qn (S) [arb'U]/mL 0.0-35.9 [facility] Serum Ammy Santillan virus nuc lear IgG antibody assay (units/volume)Ordered By: Arturo Sotelo on 09-18-2024 EBV nuclear IgG Qn (S) 83.9 U/mL High 0.0-17.9 [facility] Serum IgG subclass 1 measure ment (mass/volume)Ordered By: Arturo Sotelo on 09-18-2024 IgG subclass 1 (S) [Mass/Vol] 247 mg/dL Low 248-810 [facility] Serum IgG subclass 2 measure ment (mass/volume)Ordered By: Arturo Sotelo on 09-18-2024 IgG subclass 2 (S) [Mass/Vol] 185 mg/dL 130-555 [facility] Serum IgG subclass 3 measure ment (mass/volume)Ordered By: Arturo Sotelo on 09-18-2024 IgG subclass 3 (S) [Mass/Vol] 43 mg/dL 15-102 [facility] Serum Scl-70 antibody assay (units/volume)Ordered By: Arturo Sotelo on 09-18-2024 SCL-70 extractable nuclear Ab Qn (S) <0.2 AI 0.0-0.9 [facility] Serum albumin/globulin ratio Ordered By: Arturo Sotelo on 09-18-2024 Albumin/Globulin (JORGE) 1.0 0.7-1.7 [facility] Serum classic neutrophil cyt oplasmic antibody assay (units/volume)Ordered By: Arturo Sotelo on 09-18-2024 Neutrophil cytoplasmic Ab.classic Qn (S) <1:20 titer Neg:<1:20 [facility] Serum globulin measurement ( mass/volume)Ordered By: Arturo Sotelo on 09-18-2024 Globulin (S) [Mass/Vol] 2.8 g/dL 2.2-3.9 [facility] Serum or plasma IgA measurem ent (mass/volume)Ordered By: Arturo Sotelo on 09-18-2024 IgA [Mass/Vol] 169 mg/dL 87-352 [facility] Serum or plasma IgG measurem ent (mass/volume)Ordered By: Arturo Sotelo on 09-18-2024 IgG [Mass/Vol] 539 mg/dL Low 586-1602 [facility] IgG [Mass/Vol] Not Reportable [facility] Serum or plasma alpha 1 glob ulin measurement by electrophoresis (mass/volume)Ordered By: Arturo Sotelo on 09-18-2024 Alpha 1 globulin Elph [Mass/Vol] 0.2 g/dL 0.0-0.4 [facility] Alpha 1 globulin Elph [Mass/Vol] 1.1 g/dL High 0.4-1.0 [facility] Serum or plasma beta globuli n measurement by electrophoresis (mass/volume)Ordered By: Arturo Sotelo on 09-18-2024 Beta globulin Elph [Mass/Vol] 1.1 g/dL 0.7-1.3 [facility] Serum or plasma cytomegalovi huy (CMV) IgG antibody assay (units/volume)Ordered By: Arturo Sotelo on 09-18-2024 CMV IgG Qn > 10.00 U/mL High 0.00-0.59 [facility] Serum or plasma cytomegalovi huy (CMV) IgM antibody assay (units/volume)Ordered By: Arturo Sotelo on 09-18-2024 CMV IgM Qn < 30.0 AU/mL 0.0-29.9 [facility] Serum or plasma gamma globul in measurement by electrophoresis (mass/volume)Ordered By: Arturo Sotelo on 09-18-2024 Gamma globulin Elph [Mass/Vol] 0.5 g/dL 0.4-1.8 [facility] Serum or plasma immunoelectr ophoresis interpretation (nominal result)Ordered By: Arturo Sotelo on 09-18-2024 Interpretation IEP [Interp] Comment . [facility] Serum or plasma mannobioside IgG antibody assay by immunoassay (units/volume)Ordered By: Arturo Sotelo on 09-18-2024 Mannobioside IgG IA Qn 12 units 0-100 [facility] Serum or plasma protein chris urement (mass/volume)Ordered By: Arturo Sotelo on 09-18-2024 Protein [Mass/Vol] 5.4 g/dL Low 6.0-8.5 [facility] Serum perinuclear neutrophil cytoplasmic antibody titer by immunofluorescenceOrdered By: Arturo Sotelo on 09-18-2024 Neutrophil cytoplasmic Ab.perinuclear IF (S) [Titer] <1:20 titer Neg:<1:20 [facility] Serum tissue transglutaminas e (tTG) IgA antibody assay (units/volume)Ordered By: Arturo Sotelo on 09-18-2024 tTG IgA Qn (S) <2 U/mL 0-3 [facility] Guerrero antibody assayOrdered By: Arturo Sotelo on 09-18-2024 SM Antibody <0.2 AI 0.0-0.9 [facility] Comment on above: Previous reported re sult: TNP AIEdited by: POLO on 09/19/24:1208 AMENDED REPORT 09/19/24 1208 GUERRERO Ab previously reported as: Test not performed Urine testOrdered By: Garry Howard on 09-18-2024 HCG ( test) Ql (U) Negative [facility] Comment on above: Very dilute urine sp ecimens, as indicated by a low specificgravity, may not contain textiles sales representative levels of hCG. If is still suspected, a first morning urinespecimen should be collected 48 hours later and tested. White blood cell (WBC) count Ordered By: Kris Gibbs on 09-18-2024 WBC (Bld) [#/Vol] 7.5 10*3/uL 4.4-11.0 [facility] tTG IgA Qn (S)Ordered By: Ra yuliet Sotelo on 09-18-2024 Tissue Transglutaminase IgA Ab <2 U/mL 0-3 [facility] Comment on above: Negative 0 - 3 Weak Positive 4 - 10 Positive >10 Tissue Transglutaminase (tTG) has been identified as the endomysial antigen. Studies have demonstr- ated that endomysial IgA antibodies have over 99% specificity for gluten sensitive enteropathy. Absolute lymphocyte countOrd ered By: Charlotte Gibbs on 09-17-2024 Lymphocytes Auto (Unsp spec) [#/Vol] 1.34 10*3/uL 0.83-4.51 [facility] Absolute neutrophil countOrd ered By: Charlotte Gibbs on 09-17-2024 Neutrophils (Bld) [#/Vol] 5.7 10*3/uL 2.0-7.7 [facility] Automated lymphocyte count a s percentage of total leukocytesOrdered By: Charlotte Gibbs on 09-17-2024 Lymphocytes/100 WBC Auto (Unsp spec) 16.9 % Low 19-41 [facility] Basophil percentageOrdered B y: Charlotte Gibbs on 09-17-2024 Basophils/100 WBC (Bld) 0.5 % 0-1 [facility] Bilirubin, totalOrdered By: Charlotte Gibbs on 09-17-2024 Bilirubin [Mass/Vol] 0.30 mg/dL 0.00-1.30 [facility] CBC W/Diff, Automatedon 08-20 Absolute Lymph 1.34 X10 3/uL Normal 0.83-4.51 [facility] Comment on above: Performed By: #### L 501.5200, L500.4050, L100.0100, L501.2300 ####[facility] [address] [place], [address] Absolute Neut 5.7 X10 3/uL Normal 2.0-7.7 [facility] Comment on above: Performed By: #### L 501.5200, L500.4050, L100.0100, L501.2300 ####[facility] [address] [place], [address] Basophils/100 WBC (Bld) 0.5 % Normal 0-1 [facility] Comment on above: Performed By: #### L 501.5200, L500.4050, L100.0100, L501.2300 ####[facility] [address] [place], [address] Eosinophils/100 WBC (Bld) 3.1 % Normal 0-5 [facility] Comment on above: Performed By: #### L 501.5200, L500.4050, L100.0100, L501.2300 ####[facility] [address] [place], [address] Erythrocyte distribution width (RBC) [Ratio] 13.9 % Normal 11.6-14.6 [facility] Comment on above: Performed By: #### L 501.5200, L500.4050, L100.0100, L501.2300 ####[facility] [address] [place], [address] Hematocrit (Bld) [Volume fraction] 33.6 % Low 37-47 [facility] Comment on above: Performed By: #### L 501.5200, L500.4050, L100.0100, L501.2300 ####[facility] [address] [place], [address] Hemoglobin (Bld) [Mass/Vol] 10.9 g/dL Low 12.0-15.0 [facility] Comment on above: Performed By: #### L 501.5200, L500.4050, L100.0100, L501.2300 ####[facility] [address] [place], [address] IG% 0.900 Normal 0.0-0.9 [facility] Comment on above: Result Comment: IG% - Immature Granulocytes (promyelocytes, myelocytes andmetamyelocytes) > 1% indicates that a LEFT SHIFT is Present. Performed By: #### L 501.5200, L500.4050, L100.0100, L501.2300 ####[facility] [address] [place], [address] Lymphocytes/100 WBC (Bld) 16.9 % Low 19-41 [facility] Comment on above: Performed By: #### L 501.5200, L500.4050, L100.0100, L501.2300 ####[facility] [address] [place], [address] MCH (RBC) [Entitic mass] 26.9 pg Low 27.0-32.0 [facility] Comment on above: Performed By: #### L 501.5200, L500.4050, L100.0100, L501.2300 ####[facility] [address] [place], [address] MCHC (RBC) [Mass/Vol] 32.4 g/dL Normal 32-36 [facility] Comment on above: Performed By: #### L 501.5200, L500.4050, L100.0100, L501.2300 ####[facility] [address] [place], [address] MCV (RBC) [Entitic vol] 83.0 fL Normal 81-99 [facility] Comment on above: Performed By: #### L 501.5200, L500.4050, L100.0100, L501.2300 ####[facility] [address] [place], [address] Monocytes/100 WBC (Bld) 6.5 % Normal 0-10 [facility] Comment on above: Performed By: #### L 501.5200, L500.4050, L100.0100, L501.2300 ####[facility] [address] [place], [address] Neutrophils/100 WBC (Bld) 72.1 % High 47-70 [facility] Comment on above: Performed By: #### L 501.5200, L500.4050, L100.0100, L501.2300 ####[facility] [address] [place], [address] Nucleated RBC (Bld) [#/Vol] 0 10*3/uL Normal 0-5 [facility] Comment on above: Performed By: #### L 501.5200, L500.4050, L100.0100, L501.2300 ####[facility] [address] [place], [address] Platelet mean volume (Bld) [Entitic vol] 10.2 fL Normal 6.2-12.0 [facility] Comment on above: Performed By: #### L 501.5200, L500.4050, L100.0100, L501.2300 ####[facility] [address] [place], [address] Platelets (Bld) [#/Vol] 326 10*3/uL Normal 150-450 [facility] Comment on above: Performed By: #### L 501.5200, L500.4050, L100.0100, L501.2300 ####[facility] [address] [place], [address] RBC (Bld) [#/Vol] 4.05 10*6/uL Low 4.2-5.4 [facility] Comment on above: Performed By: #### L 501.5200, L500.4050, L100.0100, L501.2300 ####[facility] [address] [place], [address] RDW SD 42.0 fl Normal 35.1-43.9 [facility] Comment on above: Performed By: #### L 501.5200, L500.4050, L100.0100, L501.2300 ####[facility] [address] [place], [address] WBC (Bld) [#/Vol] 8.0 10*3/uL Normal 4.4-11.0 [facility] Comment on above: Performed By: #### L 501.5200, L500.4050, L100.0100, L501.2300 ####[facility] [address] [place], [address] CRPon 09-17-2024 C-REACTIVE PROT 31.40 mg/L High 0.0-3.0 [facility] Comment on above: Performed By: #### L 3410.2350, L3200.0500, L3200.1100, L3890.6006, L3300.1200, L3100.5440, L3100.3425, L504.2610, L3410.9998, L3100.5850, L3100.5020, L3400.1490, L101.9900, L501.5000, L501.6710, L2100.0000, L3400.1500 ####[facility] [address] [place], [address] CRP [Mass/Vol]Ordered By: Ra yuliet Sotelo on 09-17-2024 C-Reactive Protein Extended Range 31.40 mg/L High 0.0-3.0 [facility] Comprehensive Metabolic Prof ilon 09-17-2024 Albumin [Mass/Vol] 3.2 g/dL Low 3.5-5.0 [facility] Comment on above: Performed By: #### L 501.5200, L500.4050, L100.0100, L501.2300 ####[facility] [address] [place], [address] Albumin/Globulin [Mass ratio] 1.2 {ratio} Normal 0.9-2.4 [facility] Comment on above: Performed By: #### L 501.5200, L500.4050, L100.0100, L501.2300 ####[facility] [address] [place], [address] ALK PHOS 90 U/L Normal 35-104 [facility] Comment on above: Performed By: #### L 501.5200, L500.4050, L100.0100, L501.2300 ####[facility] [address] [place], [address] ALT [Catalytic activity/Vol] 15 U/L Normal <=34 [facility] Comment on above: Performed By: #### L 501.5200, L500.4050, L100.0100, L501.2300 ####[facility] [address] [place], [address] AST [Catalytic activity/Vol] 16 U/L Normal <=31 [facility] Comment on above: Performed By: #### L 501.5200, L500.4050, L100.0100, L501.2300 ####[facility] [address] [place], [address] Bilirubin [Mass/Vol] 0.30 mg/dL Normal 0.00-1.30 [facility] Comment on above: Performed By: #### L 501.5200, L500.4050, L100.0100, L501.2300 ####[facility] [address] [place], [address] BUN/CRE 13.1 RATIO Normal 10-20 [facility] Comment on above: Performed By: #### L 501.5200, L500.4050, L100.0100, L501.2300 ####[facility] [address] [place], [address] Calcium [Mass/Vol] 9.2 mg/dL Normal 7.6-11.0 [facility] Comment on above: Performed By: #### L 501.5200, L500.4050, L100.0100, L501.2300 ####[facility] [address] [place], [address] Chloride [Moles/Vol] 100 mmol/L Normal 98-108 [facility] Comment on above: Performed By: #### L 501.5200, L500.4050, L100.0100, L501.2300 ####[facility] [address] [place], [address] CO2 [Moles/Vol] 25.4 mmol/L Normal 21.0-32.0 [facility] Comment on above: Performed By: #### L 501.5200, L500.4050, L100.0100, L501.2300 ####[facility] [address] [place], [address] Creatinine [Mass/Vol] 0.29 mg/dL Low 0.70-1.20 [facility] Comment on above: Performed By: #### L 501.5200, L500.4050, L100.0100, L501.2300 ####[facility] [address] [place], [address] ECRCL 300.50 ml/min High 50-250 [facility] Comment on above: Performed By: #### L 501.5200, L500.4050, L100.0100, L501.2300 ####[facility] [address] [place], [address] GAP 12 Normal 5-15 [facility] Comment on above: Performed By: #### L 501.5200, L500.4050, L100.0100, L501.2300 ####[facility] [address] [place], [address] GFR/1.73 sq M.predicted among non-blacks MDRD (S/P/Bld) [Vol rate/Area] 136 mL/min/{1.73_m2} Normal >60 [facility] Comment on above: Result Comment: mL/m in/1.73m2 CKD-EPI Creatinine Equation (2020) Performed By: #### L 501.5200, L500.4050, L100.0100, L501.2300 ####[facility] [address] [place], [address] Globulin (S) [Mass/Vol] 2.6 g/dL Normal 2.2-4.2 [facility] Comment on above: Performed By: #### L 501.5200, L500.4050, L100.0100, L501.2300 ####[facility] [address] [place], [address] Glucose [Mass/Vol] 102 mg/dL High 70-99 [facility] Comment on above: Performed By: #### L 501.5200, L500.4050, L100.0100, L501.2300 ####[facility] [address] [place], [address] Potassium [Moles/Vol] 3.0 mmol/L Low 3.3-5.1 [facility] Comment on above: Performed By: #### L 501.5200, L500.4050, L100.0100, L501.2300 ####[facility] [address] [place], [address] Sodium [Moles/Vol] 137 mmol/L Normal 133-145 [facility] Comment on above: Performed By: #### L 501.5200, L500.4050, L100.0100, L501.2300 ####[facility] [address] [place], [address] T PROT 5.8 g/dL Low 5.9-8.4 [facility] Comment on above: Performed By: #### L 501.5200, L500.4050, L100.0100, L501.2300 ####[facility] [address] [place], [place], [address] Urea nitrogen [Mass/Vol] 4 mg/dL Normal 4-19 [facility] Comment on above: Performed By: #### L 501.5200, L500.4050, L100.0100, L501.2300 ####[facility] [address] [place], [place], [address] Eosinophil percentageOrdered By: Charlotte Gibbs on 09-17-2024 Eosinophils/100 WBC (Bld) 3.1 % 0-5 [facility] Erythrocyte Sed Rateon 09-17 SED RATE 46 mm/hr High 0-30 [facility] Comment on above: Performed By: #### L 3410.2350, L3200.0500, L3200.1100, L3890.6006, L3300.1200, L3100.5440, L3100.3425, L504.2610, L3410.9998, L3100.5850, L3100.5020, L3400.1490, L101.9900, L501.5000, L501.6710, L2100.0000, L3400.1500 ####[facility] [address] [place], [place], [address] Erythrocyte sedimentation ra teOrdered By: Arturo Sotelo on 09-17-2024 ESR (Bld) [Velocity] 46 mm/h High 0-30 [facility] Immature granulocytes/100 WB C Auto (Bld)Ordered By: Charlotte Gibbs on 09-17-2024 Immature granulocytes/100 WBC (Bld) 0.900 % 0.0-0.9 [facility] Comment on above: IG% - Immature Granu locytes (promyelocytes, myelocytes and metamyelocytes) > 1% indicates that a LEFT SHIFT is Present. L3890.6006on 09-17-2024 HIV Non-Reactive Normal Nonreactive [facility] Comment on above: Result Comment: Non- ReactiveReactiveRepeatedly reactive samples must be confirmed according toCDC recommended confirmatory algorithms. The subresults foreither HIVAG or AHIV can be used as an aid in the selectionof the confirmation algorithm for reactive samples.Send out specimens with Reactive results to [facility] forconfirmation.Order the HIV antibody detection and differentiation:lc#[id number] Performed By: #### L 3410.2350, L3200.0500, L3200.1100, L3890.6006, L3300.1200, L3100.5440, L3100.3425, L504.2610, L3410.9998, L3100.5850, L3100.5020, L3400.1490, L101.9900, L501.5000, L501.6710, L2100.0000, L3400.1500 ####[facility] [address] [facility] [place], [address] LDHon 09-17-2024 LDH 172 U/L Normal 84-246 [facility] Comment on above: Performed By: #### L 3410.2350, L3200.0500, L3200.1100, L3890.6006, L3300.1200, L3100.5440, L3100.3425, L504.2610, L3410.9998, L3100.5850, L3100.5020, L3400.1490, L101.9900, L501.5000, L501.6710, L2100.0000, L3400.1500 ####[facility] [address] [facility] [place], [address] Laboratory - Chemistry and C hemistry - challengeOrdered By: Charlotte Gibbs on 09-17-2024 AST [Catalytic activity/Vol] 16 U/L <32 [facility] Lactate dehydrogenase (LDH) measurementOrdered By: Arturo Sotelo on 09-17-2024 LDH [Catalytic activity/Vol] 172 U/L 84-246 [facility] Lymphocytes Auto (Unsp spec) [#/Vol]Ordered By: Charlotte Gibbs on 09-17-2024 Lymphocytes (Bld) [#/Vol] 1.34 10*3/uL 0.83-4.51 [facility] Lymphocytes/100 WBC Auto (Un sp spec)Ordered By: Charlotte Gibbs on 09-17-2024 Lymphocytes/100 WBC (Bld) 16.9 % Low 19-41 [facility] MR/CON.PCM.GIon 09-17-2024 MR/CON.PCM.GI Normal [facility] MRCP Abdomen without Contras ton 09-17-2024 MRCP Abdomen without Contrast Normal [facility] Magnesiumon 09-17-2024 Magnesium [Mass/Vol] 1.7 mg/dL Normal 1.5-2.2 [facility] Comment on above: Performed By: #### L 501.5200, L500.4050, L100.0100, L501.2300 ####[facility] [address] [place], [place], [address] Magnesium (Unsp spec) [Mass/ Vol]Ordered By: Charlotte Gibbs on 09-17-2024 Magnesium [Mass/Vol] 1.7 mg/dL 1.5-2.2 [facility] Magnesium measurement (mass/ volume)Ordered By: Charlotte Gibbs on 09-17-2024 Magnesium (Unsp spec) [Mass/Vol] 1.7 mg/dL 1.5-2.2 [facility] Magnetic resonance imaging r eportOrdered By: Raj Odell on 09-17-2024 Study report [facility] Imaging Services [address] [place], [place] [address] MRCP Abdomen without Contrast MR#: [id number] Acct: [id number] Name: NOECASIMIRO BAIRD Rep #: [id number] : 1980 F 43 From: [employer] DO PCP: Dr. Mary Escobar MD Status: ADM IN Study:MRCP Abdomen without Contrast Date of E xam: 09/17/24 Exam# [id number] Ordering Dr: Judy Gibbs DO PROCEDURE: MRCP ABDOMEN WITHOUT CONTRAST 09/17/2024 REASON FOR EXAM: PERSISTANT PANCREATITIS TECHNIQUE: Multiplanar, multisequence MRI of the upper abdomen without and with intravenousgadolinium-ba sed contrast. CONTRAST: None FINDINGS: Chest: Moderate bilateral pleural effusions. Liver: Trace amount of ascites surrounds the liver. Biliary: Nondilated. Unremarkable. No choledocholithiasis. Status post cholecystectomy. Pancreas: Small volume of fluid surrounds the pancreas. On T2 weighted imaging,the pancreas head, body and tail unremarkable appearance Spleen: Normal Adrenals: Normal Kidneys: Unremarkable Major Vessels: Patent Bones: Normal bone marrow signal MRI/MRCP Abdomen without Contrast IMPRESSION: Small but abnormal amount of fluid around the pancreas. Moderate bilateral pleural effusions Absent gallbladder. No evidence of choledocholithiasis. Reading Location: [facility] CC: Dr. Mary Escobar MD; Dr. Charlotte Gibbs, DO ~ Comic Book Artist: Signed [facility] Monocyte percentageOrdered B y: Charlotte Gibbs on 09-17-2024 Monocytes/100 WBC (Bld) 6.5 % 0-10 [facility] Neutrophil percentageOrdered By: Charlotte Gibbs on 09-17-2024 Neutrophils/100 WBC (Bld) 72.1 % High 47-70 [facility] No Panel InformationOrdered By: Arturo Sotelo on 09-17-2024 HIV (1&2) Antibody Non-Reactive Nonreactive [facility] Comment on above: Non-ReactiveReactive Repeatedly reactive samples must be confirmed according to CDC recommended confirmatory algorithms. The subresults for either HIVAG or AHIV can be used as an aid in the selection of the confirmation algorithm for reactive samples.Send out specimens with Reactive results to [facility] for confirmation.Order the HIV antibody detection and differentiation: #[id number] Non-Reactive Nonreactive [facility] No Panel InformationOrdered By: Charlotte Gibbs on 09-17-2024 16 U/L <32 [facility] Nucleated red blood cell per centageOrdered By: Charlotte Gibbs on 09-17-2024 Nucleated RBC/100 WBC (Bld) [Ratio] 0 % 0-5 [facility] Orbits for Foreign Bodyon Orbits for Foreign Body Normal [facility] Phosphoruson 09-17-2024 Phosphate [Mass/Vol] 2.2 mg/dL Low 2.7-4.5 [facility] Comment on above: Performed By: #### L 501.5200, L500.4050, L100.0100, L501.2300 ####[facility] [address] [place], [address] Serum globulin measurementOr dered By: Charlotte Gibbs on 09-17-2024 Globulin (S) [Mass/Vol] 2.6 g/dL 2.2-4.2 [facility] Serum or plasma C reactive p rotein measurement (mass/volume)Ordered By: Artruo Sotelo on 09-17-2024 CRP [Mass/Vol] 31.40 mg/L High 0.0-3.0 [facility] Serum or plasma alanine barton otransferase (ALT) measurementOrdered By: Charlotte Gibbs on 09-17-2024 ALT [Catalytic activity/Vol] 15 U/L <35 [facility] Serum or plasma albumin chris urement (mass/volume)Ordered By: Charlotte Gibbs on 09-17-2024 Albumin [Mass/Vol] 3.2 g/dL Low 3.5-5.0 [facility] Serum or plasma albumin/glob ulin mass ratioOrdered By: Charlotte Gibbs on 09-17-2024 Albumin/Globulin [Mass ratio] 1.2 {ratio} 0.9-2.4 [facility] Serum or plasma alkaline saeed sphatase measurementOrdered By: Charlotte Gibbs on 09-17-2024 ALP [Catalytic activity/Vol] 90 U/L 35-104 [facility] Serum phosphorus measurement Ordered By: Charlotte Gibbs on 09-17-2024 Phosphorus Level 2.2 mg/dL Low 2.7-4.5 [facility] Total proteinOrdered By: Princess Gibbs on 09-17-2024 Protein [Mass/Vol] 5.8 g/dL Low 5.9-8.4 [facility] Triglycerideson 09-17-2024 Triglyceride [Mass/Vol] 102 mg/dL Normal [facility] Comment on above: Result Comment: The drugs N-Acetylcysteine and Metamizole may falselydepress this assay.Normal range: <150 mg/dLBorderline High: 150-199 mg/dLHigh: 200-499 mg/dLVery High: >500 mg/dL Performed By: #### L 3410.2350, L3200.0500, L3200.1100, L3890.6006, L3300.1200, L3100.5440, L3100.3425, L504.2610, L3410.9998, L3100.5850, L3100.5020, L3400.1490, L101.9900, L501.5000, L501.6710, L2100.0000, L3400.1500 ####[facility] [address] [place], [address] Triglycerides measurementOrd ered By: Arturo Sotelo on 09-17-2024 Triglyceride [Mass/Vol] 102 mg/dL <199 [facility] Comment on above: The drugs N-Acetylcy steine and Metamizole may falsely depress this assay. Normal range: <150 mg/dLBorderline High: 150-199 mg/dLHigh: 200-499 mg/dLVery High: >500 mg/dL Abdomen/Pelvis WITH Contrast on 09-16-2024 Abdomen/Pelvis WITH Contrast Normal [facility] CBC W/Diff, Automatedon 08-20 Absolute Lymph 1.19 X10 3/uL Normal 0.83-4.51 [facility] Comment on above: Performed By: #### L 500.4050, L100.0100, L501.2450 ####[facility] [address] [place], [address] Absolute Neut 7.8 X10 3/uL High 2.0-7.7 [facility] Comment on above: Performed By: #### L 500.4050, L100.0100, L501.2450 ####[facility] [address] [place], [address] Basophils/100 WBC (Bld) 0.4 % Normal 0-1 [facility] Comment on above: Performed By: #### L 500.4050, L100.0100, L501.2450 ####[facility] [address] [place], [address] Eosinophils/100 WBC (Bld) 1.0 % Normal 0-5 [facility] Comment on above: Performed By: #### L 500.4050, L100.0100, L501.2450 ####[facility] [address] [place], [address] Erythrocyte distribution width (RBC) [Ratio] 14.6 % Normal 11.6-14.6 [facility] Comment on above: Performed By: #### L 500.4050, L100.0100, L501.2450 ####[facility] [address] [place], [address] Hematocrit (Bld) [Volume fraction] 33.3 % Low 37-47 [facility] Comment on above: Performed By: #### L 500.4050, L100.0100, L501.2450 ####[facility] [address] [place], [address] Hemoglobin (Bld) [Mass/Vol] 10.5 g/dL Low 12.0-15.0 [facility] Comment on above: Performed By: #### L 500.4050, L100.0100, L501.2450 ####[facility] [address] [place], [address] IG% 0.800 Normal 0.0-0.9 [facility] Comment on above: Result Comment: IG% - Immature Granulocytes (promyelocytes, myelocytes andmetamyelocytes) > 1% indicates that a LEFT SHIFT is Present. Performed By: #### L 500.4050, L100.0100, L501.2450 ####[facility] [address] [place], [address] Lymphocytes/100 WBC (Bld) 12.2 % Low 19-41 [facility] Comment on above: Performed By: #### L 500.4050, L100.0100, L501.2450 ####[facility] [address] [place], [address] MCH (RBC) [Entitic mass] 27.1 pg Normal 27.0-32.0 [facility] Comment on above: Performed By: #### L 500.4050, L100.0100, L501.2450 ####[facility] [address] [place], [address] MCHC (RBC) [Mass/Vol] 31.5 g/dL Low 32-36 [facility] Comment on above: Performed By: #### L 500.4050, L100.0100, L501.2450 ####[facility] [address] [place], [address] MCV (RBC) [Entitic vol] 85.8 fL Normal 81-99 [facility] Comment on above: Performed By: #### L 500.4050, L100.0100, L501.2450 ####[facility] [address] [place], [address] Monocytes/100 WBC (Bld) 5.5 % Normal 0-10 [facility] Comment on above: Performed By: #### L 500.4050, L100.0100, L501.2450 ####[facility] [address] [place], [address] Neutrophils/100 WBC (Bld) 80.1 % High 47-70 [facility] Comment on above: Performed By: #### L 500.4050, L100.0100, L501.2450 ####[facility] [address] [place], [address] Nucleated RBC (Bld) [#/Vol] 0 10*3/uL Normal 0-5 [facility] Comment on above: Performed By: #### L 500.4050, L100.0100, L501.2450 ####[facility] [address] [place], [address] Platelet mean volume (Bld) [Entitic vol] 10.7 fL Normal 6.2-12.0 [facility] Comment on above: Performed By: #### L 500.4050, L100.0100, L501.2450 ####[facility] [address] [place], [address] Platelets (Bld) [#/Vol] 318 10*3/uL Normal 150-450 [facility] Comment on above: Performed By: #### L 500.4050, L100.0100, L501.2450 ####[facility] [address] [place], [address] RBC (Bld) [#/Vol] 3.88 10*6/uL Low 4.2-5.4 [facility] Comment on above: Performed By: #### L 500.4050, L100.0100, L501.2450 ####[facility] [address] [place], [address] RDW SD 45.6 fl High 35.1-43.9 [facility] Comment on above: Performed By: #### L 500.4050, L100.0100, L501.2450 ####[facility] [address] [place], [address] WBC (Bld) [#/Vol] 9.8 10*3/uL Normal 4.4-11.0 [facility] Comment on above: Performed By: #### L 500.4050, L100.0100, L501.2450 ####[facility] [address] [place], [address] Comprehensive Metabolic Prof ilon 09-16-2024 Albumin [Mass/Vol] 3.1 g/dL Low 3.5-5.0 [facility] Comment on above: Performed By: #### L 500.4050, L100.0100, L501.2450 ####[facility] [address] [place], [address] Albumin/Globulin [Mass ratio] 1.1 {ratio} Normal 0.9-2.4 [facility] Comment on above: Performed By: #### L 500.4050, L100.0100, L501.2450 ####[facility] [address] [place], [address] ALK PHOS 82 U/L Normal 35-104 [facility] Comment on above: Performed By: #### L 500.4050, L100.0100, L501.2450 ####[facility] [address] [place], [address] ALT [Catalytic activity/Vol] 18 U/L Normal <=34 [facility] Comment on above: Performed By: #### L 500.4050, L100.0100, L501.2450 ####[facility] [address] [place], [address] AST [Catalytic activity/Vol] 17 U/L Normal <=31 [facility] Comment on above: Performed By: #### L 500.4050, L100.0100, L501.2450 ####[facility] [address] [place], [address] Bilirubin [Mass/Vol] 0.22 mg/dL Normal 0.00-1.30 [facility] Comment on above: Performed By: #### L 500.4050, L100.0100, L501.2450 ####[facility] [address] [place], [address] BUN/CRE 37.6 RATIO High 10-20 [facility] Comment on above: Performed By: #### L 500.4050, L100.0100, L501.2450 ####[facility] [address] [place], [address] Calcium [Mass/Vol] 9.0 mg/dL Normal 7.6-11.0 [facility] Comment on above: Performed By: #### L 500.4050, L100.0100, L501.2450 ####[facility] [address] [place], [address] Chloride [Moles/Vol] 109 mmol/L High 98-108 [facility] Comment on above: Performed By: #### L 500.4050, L100.0100, L501.2450 ####[facility] [address] [place], [address] CO2 [Moles/Vol] 20.2 mmol/L Low 21.0-32.0 [facility] Comment on above: Performed By: #### L 500.4050, L100.0100, L501.2450 ####[facility] [address], [address] Creatinine [Mass/Vol] 0.40 mg/dL Low 0.70-1.20 [facility] Comment on above: Performed By: #### L 500.4050, L100.0100, L501.2450 ####[facility] [address] [place], [address] ECRCL 217.29 ml/min Normal 50-250 [facility] Comment on above: Performed By: #### L 500.4050, L100.0100, L501.2450 ####[facility] [address] [place], [address] GAP 10 Normal 5-15 [facility] Comment on above: Performed By: #### L 500.4050, L100.0100, L501.2450 ####[facility] [address], [address] GFR/1.73 sq M.predicted among non-blacks MDRD (S/P/Bld) [Vol rate/Area] 126 mL/min/{1.73_m2} Normal >60 [facility] Comment on above: Result Comment: mL/m in/1.73m2 CKD-EPI Creatinine Equation (2020) Performed By: #### L 500.4050, L100.0100, L501.2450 ####[facility] [address] [place], [address] Globulin (S) [Mass/Vol] 2.8 g/dL Normal 2.2-4.2 [facility] Comment on above: Performed By: #### L 500.4050, L100.0100, L501.2450 ####[facility] [address] [place], [address] Glucose [Mass/Vol] 134 mg/dL High 70-99 [facility] Comment on above: Performed By: #### L 500.4050, L100.0100, L501.2450 ####[facility] [address] [place], [address] Potassium [Moles/Vol] 3.4 mmol/L Normal 3.3-5.1 [facility] Comment on above: Performed By: #### L 500.4050, L100.0100, L501.2450 ####[facility] [address] [place], [address] Sodium [Moles/Vol] 138 mmol/L Normal 133-145 [facility] Comment on above: Performed By: #### L 500.4050, L100.0100, L501.2450 ####[facility] [address] [place], [address] T PROT 5.8 g/dL Low 5.9-8.4 [facility] Comment on above: Performed By: #### L 500.4050, L100.0100, L501.2450 ####[facility] [address] [place], [address] Urea nitrogen [Mass/Vol] 15 mg/dL Normal 4-19 [facility] Comment on above: Performed By: #### L 500.4050, L100.0100, L501.2450 ####[facility] [address] [place], [address] Lipase measurementOrdered By : Charlotte Gibbs on 09-16-2024 Lipase [Catalytic activity/Vol] 22 U/L Normal 13-75 [facility] Comment on above: Please note:LIPASE r evised reference range effective 22. New Lipase methodology. Expected to produce lower values than the previous assay method. NEW Reference Range: 13 - 75 U/L Result Comment: Giovanni reilly note:LIPASE revised reference range effective 22.New Lipase methodology. Expected to produce lower valuesthan the previous assay method.NEW Reference Range: 13 - 75 U/L Performed By: #### L 500.4050, L100.0100, L501.2450 ####[facility] [address] [place], [address] Basic Metabolic Profile (BMP )on 09-15-2024 BUN/CRE 44.2 RATIO High 10-20 [facility] Comment on above: Performed By: #### L 500.2500, L501.2450 ####[facility] [address] [place], [address] Calcium [Mass/Vol] 9.1 mg/dL Normal 7.6-11.0 [facility] Comment on above: Performed By: #### L 500.2500, L501.2450 ####[facility] [address] [place], [address] Chloride [Moles/Vol] 109 mmol/L High 98-108 [facility] Comment on above: Performed By: #### L 500.2500, L501.2450 ####[facility] [address] [place], [address] CO2 [Moles/Vol] 19.1 mmol/L Low 21.0-32.0 [facility] Comment on above: Performed By: #### L 500.2500, L501.2450 ####[facility] [address] [place], [address] Creatinine [Mass/Vol] 0.38 mg/dL Low 0.70-1.20 [facility] Comment on above: Performed By: #### L 500.2500, L501.2450 ####[facility] [address] [place], [address] ECRCL 217.52 ml/min Normal 50-250 [facility] Comment on above: Performed By: #### L 500.2500, L501.2450 ####[facility] [address] [place], [address] GAP 10 Normal 5-15 [facility] Comment on above: Performed By: #### L 500.2500, L501.2450 ####[facility] [address] [place], [address] GFR/1.73 sq M.predicted among non-blacks MDRD (S/P/Bld) [Vol rate/Area] 127 mL/min/{1.73_m2} Normal >60 [facility] Comment on above: Result Comment: mL/m in/1.73m2 CKD-EPI Creatinine Equation (2020) Performed By: #### L 500.2500, L501.2450 ####[facility] [address] [place], [address] Glucose [Mass/Vol] 103 mg/dL High 70-99 [facility] Comment on above: Performed By: #### L 500.2500, L501.2450 ####[facility] [address] [place], [address] Potassium [Moles/Vol] 3.9 mmol/L Normal 3.3-5.1 [facility] Comment on above: Performed By: #### L 500.2500, L501.2450 ####[facility] [address] [place], [address] Sodium [Moles/Vol] 138 mmol/L Normal 133-145 [facility] Comment on above: Performed By: #### L 500.2500, L501.2450 ####[facility] [address] [place], [address] Urea nitrogen [Mass/Vol] 17 mg/dL Normal 4-19 [facility] Comment on above: Performed By: #### L 500.2500, L501.2450 ####[facility] [address] [place], [address] CBC W/Diff, Automatedon - Absolute Lymph 0.85 X10 3/uL Normal 0.83-4.51 [facility] Comment on above: Performed By: #### L 100.0100 ####[facility] [address] [place], [address] Absolute Neut 11.3 X10 3/uL High 2.0-7.7 [facility] Comment on above: Performed By: #### L 100.0100 ####[facility] [address] [place], [address] Basophils/100 WBC (Bld) 0.2 % Normal 0-1 [facility] Comment on above: Performed By: #### L 100.0100 ####[facility] [address] [place], [address] Eosinophils/100 WBC (Bld) 0.2 % Normal 0-5 [facility] Comment on above: Performed By: #### L 100.0100 ####[facility] [address] [place], [address] Erythrocyte distribution width (RBC) [Ratio] 14.6 % Normal 11.6-14.6 [facility] Comment on above: Performed By: #### L 100.0100 ####[facility] [address] [place], [address] Hematocrit (Bld) [Volume fraction] 33.0 % Low 37-47 [facility] Comment on above: Performed By: #### L 100.0100 ####[facility] [address] [place], [address] Hemoglobin (Bld) [Mass/Vol] 10.3 g/dL Low 12.0-15.0 [facility] Comment on above: Performed By: #### L 100.0100 ####[facility] [address] [place], [address] IG% 1.100 High 0.0-0.9 [facility] Comment on above: Result Comment: IG% - Immature Granulocytes (promyelocytes, myelocytes andmetamyelocytes) > 1% indicates that a LEFT SHIFT is Present. Performed By: #### L 100.0100 ####[facility] [address] [place], [address] Lymphocytes/100 WBC (Bld) 6.6 % Low 19-41 [facility] Comment on above: Performed By: #### L 100.0100 ####[facility] [address] [place], [address] MCH (RBC) [Entitic mass] 27.0 pg Normal 27.0-32.0 [facility] Comment on above: Performed By: #### L 100.0100 ####[facility] [address] [place], [address] MCHC (RBC) [Mass/Vol] 31.2 g/dL Low 32-36 [facility] Comment on above: Performed By: #### L 100.0100 ####[facility] [address] [place], [address] MCV (RBC) [Entitic vol] 86.6 fL Normal 81-99 [facility] Comment on above: Performed By: #### L 100.0100 ####[facility] [address] [place], [address] Monocytes/100 WBC (Bld) 4.7 % Normal 0-10 [facility] Comment on above: Performed By: #### L 100.0100 ####[facility] [address] [place], [address] Neutrophils/100 WBC (Bld) 87.2 % High 47-70 [facility] Comment on above: Performed By: #### L 100.0100 ####[facility] [address] [place], [address] Nucleated RBC (Bld) [#/Vol] 0 10*3/uL Normal 0-5 [facility] Comment on above: Performed By: #### L 100.0100 ####[facility] [address] [place], [address] Platelet mean volume (Bld) [Entitic vol] 10.2 fL Normal 6.2-12.0 [facility] Comment on above: Performed By: #### L 100.0100 ####[facility] [address] [place], [address] Platelets (Bld) [#/Vol] 253 10*3/uL Normal 150-450 [facility] Comment on above: Performed By: #### L 100.0100 ####[facility] [address] [place], [address] RBC (Bld) [#/Vol] 3.81 10*6/uL Low 4.2-5.4 [facility] Comment on above: Performed By: #### L 100.0100 ####[facility] [address] [place], [address] RDW SD 46.5 fl High 35.1-43.9 [facility] Comment on above: Performed By: #### L 100.0100 ####[facility] [address] [place], [address] WBC (Bld) [#/Vol] 13.0 10*3/uL High 4.4-11.0 [facility] Comment on above: Performed By: #### L 100.0100 ####[facility] [address] [place], [address] Lipaseon 09-15-2024 Lipase [Catalytic activity/Vol] 31 U/L Normal 13-75 [facility] Comment on above: Result Comment: Giovanni reilly note:LIPASE revised reference range effective 22.New Lipase methodology. Expected to produce lower valuesthan the previous assay method.NEW Reference Range: 13 - 75 U/L Performed By: #### L 500.2500, L501.2450 ####[facility] [address] [place], [address] CBC W/Diff, Automatedon 08-19 Absolute Lymph 1.01 X10 3/uL Normal 0.83-4.51 [facility] Comment on above: Performed By: #### L 100.0100, L500.4050 ####[facility] [address] [place], [address] Absolute Neut 15.4 X10 3/uL High 2.0-7.7 [facility] Comment on above: Performed By: #### L 100.0100, L500.4050 ####[facility] [address] [place], [address] Basophils/100 WBC (Bld) 0.2 % Normal 0-1 [facility] Comment on above: Performed By: #### L 100.0100, L500.4050 ####[facility] [address] [place], [address] Eosinophils/100 WBC (Bld) 0.0 % Normal 0-5 [facility] Comment on above: Performed By: #### L 100.0100, L500.4050 ####[facility] [address] [place], [address] Erythrocyte distribution width (RBC) [Ratio] 14.6 % Normal 11.6-14.6 [facility] Comment on above: Performed By: #### L 100.0100, L500.4050 ####[facility] [address] [place], [address] Hematocrit (Bld) [Volume fraction] 34.0 % Low 37-47 [facility] Comment on above: Performed By: #### L 100.0100, L500.4050 ####[facility] [address] [place], [address] Hemoglobin (Bld) [Mass/Vol] 10.8 g/dL Low 12.0-15.0 [facility] Comment on above: Performed By: #### L 100.0100, L500.4050 ####[facility] [address] [place], [address] IG% 0.700 Normal 0.0-0.9 [facility] Comment on above: Result Comment: IG% - Immature Granulocytes (promyelocytes, myelocytes andmetamyelocytes) > 1% indicates that a LEFT SHIFT is Present. Performed By: #### L 100.0100, L500.4050 ####[facility] [address] [place], [address] Lymphocytes/100 WBC (Bld) 5.7 % Low 19-41 [facility] Comment on above: Performed By: #### L 100.0100, L500.4050 ####[facility] [address] [place], [address] MCH (RBC) [Entitic mass] 27.1 pg Normal 27.0-32.0 [facility] Comment on above: Performed By: #### L 100.0100, L500.4050 ####[facility] [address] [place], [address] MCHC (RBC) [Mass/Vol] 31.8 g/dL Low 32-36 [facility] Comment on above: Performed By: #### L 100.0100, L500.4050 ####[facility] [address] [place], [address] MCV (RBC) [Entitic vol] 85.4 fL Normal 81-99 [facility] Comment on above: Performed By: #### L 100.0100, L500.4050 ####[facility] [address] [place], [address] Monocytes/100 WBC (Bld) 5.6 % Normal 0-10 [facility] Comment on above: Performed By: #### L 100.0100, L500.4050 ####[facility] [address] [place], [address] Neutrophils/100 WBC (Bld) 87.8 % High 47-70 [facility] Comment on above: Performed By: #### L 100.0100, L500.4050 ####[facility] [address] [place], [address] Nucleated RBC (Bld) [#/Vol] 0 10*3/uL Normal 0-5 [facility] Comment on above: Performed By: #### L 100.0100, L500.4050 ####[facility] [address] [place], [address] Platelet mean volume (Bld) [Entitic vol] 10.1 fL Normal 6.2-12.0 [facility] Comment on above: Performed By: #### L 100.0100, L500.4050 ####[facility] [address] [place], [address] Platelets (Bld) [#/Vol] 262 10*3/uL Normal 150-450 [facility] Comment on above: Performed By: #### L 100.0100, L500.4050 ####[facility] [address] [place], [address] RBC (Bld) [#/Vol] 3.98 10*6/uL Low 4.2-5.4 [facility] Comment on above: Performed By: #### L 100.0100, L500.4050 ####[facility] [address] [place], [address] RDW SD 44.8 fl High 35.1-43.9 [facility] Comment on above: Performed By: #### L 100.0100, L500.4050 ####[facility] [address] [place], [address] WBC (Bld) [#/Vol] 17.6 10*3/uL High 4.4-11.0 [facility] Comment on above: Performed By: #### L 100.0100, L500.4050 ####[facility] [address] [place], [address] Comprehensive Metabolic Prof [facility] 09-14-2024 Albumin [Mass/Vol] 3.6 g/dL Normal 3.5-5.0 [facility] Comment on above: Performed By: #### L 100.0100, L500.4050 ####[facility] [address] [place], [address] Albumin/Globulin [Mass ratio] 1.4 {ratio} Normal 0.9-2.4 [facility] Comment on above: Performed By: #### L 100.0100, L500.4050 ####[facility] [address] [place], [address] ALK PHOS 90 U/L Normal 35-104 [facility] Comment on above: Performed By: #### L 100.0100, L500.4050 ####[facility] [address] [place], [address] ALT [Catalytic activity/Vol] 21 U/L Normal <=34 [facility] Comment on above: Performed By: #### L 100.0100, L500.4050 ####[facility] [address] [place], [address] AST [Catalytic activity/Vol] 17 U/L Normal <=31 [facility] Comment on above: Performed By: #### L 100.0100, L500.4050 ####[facility] [address] [place], [address] Bilirubin [Mass/Vol] 0.41 mg/dL Normal 0.00-1.30 [facility] Comment on above: Performed By: #### L 100.0100, L500.4050 ####[facility] [address] [place], [address] BUN/CRE 36.8 RATIO High 10-20 [facility] Comment on above: Performed By: #### L 100.0100, L500.4050 ####[facility] [address] [place], [address] Calcium [Mass/Vol] 9.1 mg/dL Normal 7.6-11.0 [facility] Comment on above: Performed By: #### L 100.0100, L500.4050 ####[facility] [address] [place], [address] Chloride [Moles/Vol] 108 mmol/L Normal 98-108 [facility] Comment on above: Performed By: #### L 100.0100, L500.4050 ####[facility] [address] [place], [address] CO2 [Moles/Vol] 18.7 mmol/L Low 21.0-32.0 [facility] Comment on above: Performed By: #### L 100.0100, L500.4050 ####[facility] [address] [place], [address] Creatinine [Mass/Vol] 0.39 mg/dL Low 0.70-1.20 [facility] Comment on above: Performed By: #### L 100.0100, L500.4050 ####[facility] [address] [place], [address] ECRCL 211.94 ml/min Normal 50-250 [facility] Comment on above: Performed By: #### L 100.0100, L500.4050 ####[facility] [address] [place], [address] GAP 10 Normal 5-15 [facility] Comment on above: Performed By: #### L 100.0100, L500.4050 ####[facility] [address] [place], [address] GFR/1.73 sq M.predicted among non-blacks MDRD (S/P/Bld) [Vol rate/Area] 127 mL/min/{1.73_m2} Normal >60 [facility] [facility] Comment on above: Result Comment: mL/m in/1.73m2 CKD-EPI Creatinine Equation (2020) Performed By: #### L 100.0100, L500.4050 ####[facility] [address] [place], [address] Globulin (S) [Mass/Vol] 2.5 g/dL Normal 2.2-4.2 [facility] Comment on above: Performed By: #### L 100.0100, L500.4050 ####[facility] [address] [place], [address] Glucose [Mass/Vol] 104 mg/dL High 70-99 [facility] Comment on above: Performed By: #### L 100.0100, L500.4050 ####[facility] [address] [place], [address] Potassium [Moles/Vol] 4.1 mmol/L Normal 3.3-5.1 [facility] Comment on above: Performed By: #### L 100.0100, L500.4050 ####[facility] [address] [place], [address] Sodium [Moles/Vol] 137 mmol/L Normal 133-145 [facility] Comment on above: Performed By: #### L 100.0100, L500.4050 ####[facility] [address] [place], [address] T PROT 6.2 g/dL Normal 5.9-8.4 [facility] Comment on above: Performed By: #### L 100.0100, L500.4050 ####[facility] [address] [place], [address] Urea nitrogen [Mass/Vol] 14 mg/dL Normal 4-19 [facility] Comment on above: Performed By: #### L 100.0100, L500.4050 ####[facility] [address] [place], [address] CBC W/Diff, Automatedon -2 Absolute Lymph 1.27 X10 3/uL Normal 0.83-4.51 [facility] Comment on above: Performed By: #### L 501.5200, L100.0100, L501.2300, L500.4050, L501.9520 ####[facility] [address] [place], [address] Absolute Neut 13.9 X10 3/uL High 2.0-7.7 [facility] Comment on above: Performed By: #### L 501.5200, L100.0100, L501.2300, L500.4050, L501.9520 ####[facility] [address] [place], [address] Basophils/100 WBC (Bld) 0.2 % Normal 0-1 [facility] Comment on above: Performed By: #### L 501.5200, L100.0100, L501.2300, L500.4050, L501.9520 ####[facility] [address] [place], [address] Eosinophils/100 WBC (Bld) 0.0 % Normal 0-5 [facility] Comment on above: Performed By: #### L 501.5200, L100.0100, L501.2300, L500.4050, L501.9520 ####[facility] [address] [place], [address] Erythrocyte distribution width (RBC) [Ratio] 14.1 % Normal 11.6-14.6 [facility] Comment on above: Performed By: #### L 501.5200, L100.0100, L501.2300, L500.4050, L501.9520 ####[facility] [address] [place], [address] Hematocrit (Bld) [Volume fraction] 34.9 % Low 37-47 [facility] Comment on above: Performed By: #### L 501.5200, L100.0100, L501.2300, L500.4050, L501.9520 ####[facility] [address] [place], [address] Hemoglobin (Bld) [Mass/Vol] 11.3 g/dL Low 12.0-15.0 [facility] Comment on above: Performed By: #### L 501.5200, L100.0100, L501.2300, L500.4050, L501.9520 ####[facility] [address], [address] IG% 0.600 Normal 0.0-0.9 [facility] Comment on above: Result Comment: IG% - Immature Granulocytes (promyelocytes, myelocytes andmetamyelocytes) > 1% indicates that a LEFT SHIFT is Present. Performed By: #### L 501.5200, L100.0100, L501.2300, L500.4050, L501.9520 ####[facility] [address] [place], [address] Lymphocytes/100 WBC (Bld) 7.9 % Low 19-41 [facility] Comment on above: Performed By: #### L 501.5200, L100.0100, L501.2300, L500.4050, L501.9520 ####[facility] [address] [place], [address] MCH (RBC) [Entitic mass] 27.2 pg Normal 27.0-32.0 [facility] Comment on above: Performed By: #### L 501.5200, L100.0100, L501.2300, L500.4050, L501.9520 ####[facility] [address] [place], [address] MCHC (RBC) [Mass/Vol] 32.4 g/dL Normal 32-36 [facility] Comment on above: Performed By: #### L 501.5200, L100.0100, L501.2300, L500.4050, L501.9520 ####[facility] [address] [place], [address] MCV (RBC) [Entitic vol] 83.9 fL Normal 81-99 [facility] Comment on above: Performed By: #### L 501.5200, L100.0100, L501.2300, L500.4050, L501.9520 ####[facility] [address] [place], [address] Monocytes/100 WBC (Bld) 4.7 % Normal 0-10 [facility] Comment on above: Performed By: #### L 501.5200, L100.0100, L501.2300, L500.4050, L501.9520 ####[facility] [address] [place], [address] Neutrophils/100 WBC (Bld) 86.6 % High 47-70 [facility] Comment on above: Performed By: #### L 501.5200, L100.0100, L501.2300, L500.4050, L501.9520 ####[facility] [address] [place], [address] Nucleated RBC (Bld) [#/Vol] 0 10*3/uL Normal 0-5 [facility] Comment on above: Performed By: #### L 501.5200, L100.0100, L501.2300, L500.4050, L501.9520 ####[facility] [address] [place], [address] Platelet mean volume (Bld) [Entitic vol] 10.1 fL Normal 6.2-12.0 [facility] Comment on above: Performed By: #### L 501.5200, L100.0100, L501.2300, L500.4050, L501.9520 ####[facility] [address] [place], [address] Platelets (Bld) [#/Vol] 299 10*3/uL Normal 150-450 [facility] Comment on above: Performed By: #### L 501.5200, L100.0100, L501.2300, L500.4050, L501.9520 ####[facility] [address] [place], [address] RBC (Bld) [#/Vol] 4.16 10*6/uL Low 4.2-5.4 [facility] Comment on above: Performed By: #### L 501.5200, L100.0100, L501.2300, L500.4050, L501.9520 ####[facility] [address] [place], [address] RDW SD 43.5 fl Normal 35.1-43.9 [facility] Comment on above: Performed By: #### L 501.5200, L100.0100, L501.2300, L500.4050, L501.9520 ####[facility] [address] [place], [address] WBC (Bld) [#/Vol] 16.1 10*3/uL High 4.4-11.0 [facility] Comment on above: Performed By: #### L 501.5200, L100.0100, L501.2300, L500.4050, L501.9520 ####[facility] [address] [place], [address] Comprehensive Metabolic Prof ilon 09-13-2024 Albumin [Mass/Vol] 3.5 g/dL Normal 3.5-5.0 [facility] Comment on above: Performed By: #### L 501.5200, L100.0100, L501.2300, L500.4050, L501.9520 ####[facility] [address] [place], [address] Albumin/Globulin [Mass ratio] 1.4 {ratio} Normal 0.9-2.4 [facility] Comment on above: Performed By: #### L 501.5200, L100.0100, L501.2300, L500.4050, L501.9520 ####[facility] [address] [place], [address] ALK PHOS 87 U/L Normal 35-104 [facility] Comment on above: Performed By: #### L 501.5200, L100.0100, L501.2300, L500.4050, L501.9520 ####[facility] [address] [place], [address] ALT [Catalytic activity/Vol] 26 U/L Normal <=34 [facility] Comment on above: Performed By: #### L 501.5200, L100.0100, L501.2300, L500.4050, L501.9520 ####[facility] [address] [place], [address] AST [Catalytic activity/Vol] 28 U/L Normal <=31 [facility] Comment on above: Performed By: #### L 501.5200, L100.0100, L501.2300, L500.4050, L501.9520 ####[facility] [address] [place], [address] Bilirubin [Mass/Vol] 0.54 mg/dL Normal 0.00-1.30 [facility] Comment on above: Performed By: #### L 501.5200, L100.0100, L501.2300, L500.4050, L501.9520 ####[facility] [address] [place], [address] BUN/CRE 23.9 RATIO High 10-20 [facility] Comment on above: Performed By: #### L 501.5200, L100.0100, L501.2300, L500.4050, L501.9520 ####[facility] [address] [place], [address] Calcium [Mass/Vol] 8.7 mg/dL Normal 7.6-11.0 [facility] Comment on above: Performed By: #### L 501.5200, L100.0100, L501.2300, L500.4050, L501.9520 ####[facility] [address] [place], [address] Chloride [Moles/Vol] 108 mmol/L Normal 98-108 [facility] Comment on above: Performed By: #### L 501.5200, L100.0100, L501.2300, L500.4050, L501.9520 ####[facility] [address] [place], [address] CO2 [Moles/Vol] 20.7 mmol/L Low 21.0-32.0 [facility] Comment on above: Performed By: #### L 501.5200, L100.0100, L501.2300, L500.4050, L501.9520 ####[facility] [address] [place], [address] Creatinine [Mass/Vol] 0.50 mg/dL Low 0.70-1.20 [facility] Comment on above: Performed By: #### L 501.5200, L100.0100, L501.2300, L500.4050, L501.9520 ####[facility] [address] [place], [address] ECRCL 165.13 ml/min Normal 50-250 [facility] Comment on above: Performed By: #### L 501.5200, L100.0100, L501.2300, L500.4050, L501.9520 ####[facility] [address] [place], [address] GAP 9 Normal 5-15 [facility] Comment on above: Performed By: #### L 501.5200, L100.0100, L501.2300, L500.4050, L501.9520 ####[facility] [address] [place], [address] GFR/1.73 sq M.predicted among non-blacks MDRD (S/P/Bld) [Vol rate/Area] 119 mL/min/{1.73_m2} Normal >60 [facility] Comment on above: Result Comment: mL/m in/1.73m2 CKD-EPI Creatinine Equation (2020) Performed By: #### L 501.5200, L100.0100, L501.2300, L500.4050, L501.9520 ####[facility] [address] [place], [address] Globulin (S) [Mass/Vol] 2.5 g/dL Normal 2.2-4.2 [facility] Comment on above: Performed By: #### L 501.5200, L100.0100, L501.2300, L500.4050, L501.9520 ####[facility] [address] [place], [address] Glucose [Mass/Vol] 90 mg/dL Normal 70-99 [facility] Comment on above: Performed By: #### L 501.5200, L100.0100, L501.2300, L500.4050, L501.9520 ####[facility] [address] [place], [address] Potassium [Moles/Vol] 4.0 mmol/L Normal 3.3-5.1 [facility] Comment on above: Performed By: #### L 501.5200, L100.0100, L501.2300, L500.4050, L501.9520 ####[facility] [address] [place], [address] Sodium [Moles/Vol] 138 mmol/L Normal 133-145 [facility] Comment on above: Performed By: #### L 501.5200, L100.0100, L501.2300, L500.4050, L501.9520 ####[facility] [address] [place], [address] T PROT 6.0 g/dL Normal 5.9-8.4 [facility] Comment on above: Performed By: #### L 501.5200, L100.0100, L501.2300, L500.4050, L501.9520 ####[facility] [address] [place], [address] Urea nitrogen [Mass/Vol] 12 mg/dL Normal 4-19 [facility] Comment on above: Performed By: #### L 501.5200, L100.0100, L501.2300, L500.4050, L501.9520 ####[facility] [address] [place], [address] Electrocardiogram reportOrde red By: Best Mary on 09-13-2024 EKG study [facility] [address] [place] [address] 12 Lead EKG 09/12/24 0814 MR#: [id number] Acct: [id number] Name: CASIMIRO LIU Rep #:[id number] : 1980 43 From: Best Mary MD Attending Dr: DO Marquis Momin tatus: ADM IN Ordering Dr: Yony Newman DO Date: 0 09/12/24 Location: U Sex: F C Admitted: 09/12/24 Test Reason : ABD PAIN Blood Pressure : */* mmHG Vent. Rate : 71 BPM Atrial Rate : 71 BPM P-R Int : 142 ms QRS Dur : 86 ms QT Int : 420 ms P-R-T Axes : 47 30 41 degrees QTcB Int : 456 ms Normal sinus rhythm Normal ECG Confirmed by BEST MARY MD ([id number]), script editor BONITA MCKINNON ([id number]) on 58:01:54 AM Referred By: Confirmed By: BEST MARY MD 09/13/24 0801 Date _ Best Mary MD CC: Dr. Mary Escobar MD; Dr. Yony Newman DO; Dr. Charlotte Gibbs DO ~ Signed [facility] Work Phone: Magnesiumon 09-13-2024 Magnesium [Mass/Vol] 2.1 mg/dL Normal 1.5-2.2 [facility] Comment on above: Performed By: #### L 501.5200, L100.0100, L501.2300, L500.4050, L501.9520 ####[facility] [address] [place], [address] Phosphoruson 09-13-2024 Phosphate [Mass/Vol] 2.7 mg/dL Normal 2.7-4.5 [facility] Comment on above: Performed By: #### L 501.5200, L100.0100, L501.2300, L500.4050, L501.9520 ####[facility] [address] [place], [address] TSH DL <= 0.005 mIU/L QnOrde red By: Charlotte Gibbs on 09-13-2024 Thyroid Stimulating Hormone (TSH) 0.397 uIU/mL 0.300-4.200 [facility] TSH Qn 0.397 uIU/mL 0.300-4.200 [facility] Thyroid Stim Hormone (TSH)on 09-13-2024 TSH 0.397 uIU/mL Normal 0.300-4.200 [facility] Comment on above: Performed By: #### L 501.5200, L100.0100, L501.2300, L500.4050, L501.9520 ####[facility] [address], [address] 12 Lead EKGon 09-12-2024 12 Lead EKG Normal [facility] Abdomen/Pelvis W IV Cont ONL Yon 09-12-2024 Abdomen/Pelvis W IV Cont ONLY Normal [facility] Absolute neutrophil countOrd ered By: Yony Newman on 09-12-2024 Neutrophils (Bld) [#/Vol] 11.2 10*3/uL High 2.0-7.7 [facility] Alcohol, Blood (Medical)-Ser umon 09-12-2024 SERUM ETOH < 10.1 Normal <=10.0 [facility] Comment on above: Result Comment: This test is for medical purposes only. The legaldefinition of intoxication varies according to local law. Performed By: #### L 505.5000, L501.9100 ####[facility] [address] [place], [address] Amorphous sediment detection in urine sediment by light microscopyOrdered By: Yony Newman on 09-12-2024 Amorphous sediment LM Ql (Urine sed) 2+ [facility] Amphetamine detection with 1 000 ng/mL as cutoffOrdered By: Yony Newman on 09-12-2024 Amphetamines Screen method >1000 ng/mL Ql (U) Negative < 200 ng/mL [facility] Amphetamines Screen method > 1000 ng/mL Ql (U)Ordered By: Yony Newman on 09-12-2024 Amphetamines Ql (U) Negative <1000 ng/mL [facility] Urine Barbiturates Screen Negative < 200 ng/mL [facility] Anion gap in Serum or Plasma Ordered By: Yony Newman on 09-12-2024 Anion gap [Moles/Vol] 11 mmol/L 5-15 [facility] BUN/creatinine ratioOrdered By: Yony Newman on 09-12-2024 Urea nitrogen/Creatinine [Mass ratio] 7.1 mg/mg Low 10-20 [facility] Basic Metabolic Profile (BMP )on 09-12-2024 BUN/CRE 7.1 RATIO Low 10-20 [facility] Comment on above: Performed By: #### L 500.3400, L700.6800, L100.0100, L500.2500, L501.2450 ####[facility] [address], [address] Calcium [Mass/Vol] 9.8 mg/dL Normal 7.6-11.0 [facility] Comment on above: Performed By: #### L 500.3400, L700.6800, L100.0100, L500.2500, L501.2450 ####[facility] [address] [place], [address] Chloride [Moles/Vol] 102 mmol/L Normal 98-108 [facility] Comment on above: Performed By: #### L 500.3400, L700.6800, L100.0100, L500.2500, L501.2450 ####[facility] [address] [place], [address] CO2 [Moles/Vol] 22.7 mmol/L Normal 21.0-32.0 [facility] Comment on above: Performed By: #### L 500.3400, L700.6800, L100.0100, L500.2500, L501.2450 ####[facility] [address] [place], [address] Creatinine [Mass/Vol] 0.59 mg/dL Low 0.70-1.20 [facility] Comment on above: Performed By: #### L 500.3400, L700.6800, L100.0100, L500.2500, L501.2450 ####[facility] [address] [place], [address] ECRCL 136.91 ml/min Normal 50-250 [facility] Comment on above: Performed By: #### L 500.3400, L700.6800, L100.0100, L500.2500, L501.2450 ####[facility] [address] [place], [address] GAP 11 Normal 5-15 [facility] Comment on above: Performed By: #### L 500.3400, L700.6800, L100.0100, L500.2500, L501.2450 ####[facility] [address] [place], [address] GFR/1.73 sq M.predicted among non-blacks MDRD (S/P/Bld) [Vol rate/Area] 115 mL/min/{1.73_m2} Normal >60 [facility] Comment on above: Result Comment: mL/m in/1.73m2 CKD-EPI Creatinine Equation (2020) Performed By: #### L 500.3400, L700.6800, L100.0100, L500.2500, L501.2450 ####[facility] [address] [place], [address] Glucose [Mass/Vol] 118 mg/dL High 70-99 [facility] Comment on above: Performed By: #### L 500.3400, L700.6800, L100.0100, L500.2500, L501.2450 ####[facility] [address] [place], [address] Potassium [Moles/Vol] 4.4 mmol/L Normal 3.3-5.1 [facility] Comment on above: Performed By: #### L 500.3400, L700.6800, L100.0100, L500.2500, L501.2450 ####[facility] [address] [place], [address] Sodium [Moles/Vol] 135 mmol/L Normal 133-145 [facility] Comment on above: Performed By: #### L 500.3400, L700.6800, L100.0100, L500.2500, L501.2450 ####[facility] [address] [place], [address] Urea nitrogen [Mass/Vol] 4 mg/dL Normal 4-19 [facility] Comment on above: Performed By: #### L 500.3400, L700.6800, L100.0100, L500.2500, L501.2450 ####[facility] [address], [address] Basophil percentageOrdered B y: Yony Newman on 09-12-2024 Basophils/100 WBC (Bld) 0.4 % 0-1 [facility] Beta HCG ( test) Ql Ordered By: Yony Newman on 09-12-2024 Serum Test, Qualitative Negative [facility] Bilirubin Test strip Ql (U)O rdered By: Yony Newman on 09-12-2024 Bilirubin Ql (U) Negative Negative [facility] Bilirubin directOrdered By: Yony Newman on 09-12-2024 Bilirubin.direct [Mass/Vol] 0.20 mg/dL 0.00-0.30 [facility] Bilirubin, totalOrdered By: Yony Newman on 09-12-2024 Bilirubin [Mass/Vol] 0.52 mg/dL 0.00-1.30 [facility] CBC W/Diff, Automatedon 08-19 Absolute Lymph 1.81 X10 3/uL Normal 0.83-4.51 [facility] Comment on above: Performed By: #### L 500.3400, L700.6800, L100.0100, L500.2500, L501.2450 ####[facility] [address] [place], [address] Absolute Neut 11.2 X10 3/uL High 2.0-7.7 [facility] Comment on above: Performed By: #### L 500.3400, L700.6800, L100.0100, L500.2500, L501.2450 ####[facility] [address] [place], [place], [address] Basophils/100 WBC (Bld) 0.4 % Normal 0-1 [facility] Comment on above: Performed By: #### L 500.3400, L700.6800, L100.0100, L500.2500, L501.2450 ####[facility] [address] [place], [address] Eosinophils/100 WBC (Bld) 1.7 % Normal 0-5 [facility] Comment on above: Performed By: #### L 500.3400, L700.6800, L100.0100, L500.2500, L501.2450 ####[facility] [address] [place], [address] Erythrocyte distribution width (RBC) [Ratio] 13.1 % Normal 11.6-14.6 [facility] Comment on above: Performed By: #### L 500.3400, L700.6800, L100.0100, L500.2500, L501.2450 ####[facility] [address] [place], [address] Hematocrit (Bld) [Volume fraction] 42.8 % Normal 37-47 [facility] Comment on above: Performed By: #### L 500.3400, L700.6800, L100.0100, L500.2500, L501.2450 ####[facility] [address] [place], [address] Hemoglobin (Bld) [Mass/Vol] 14.0 g/dL Normal 12.0-15.0 [facility] Comment on above: Performed By: #### L 500.3400, L700.6800, L100.0100, L500.2500, L501.2450 ####[facility] [address] [place], [address] IG% 0.400 Normal 0.0-0.9 [facility] Comment on above: Result Comment: IG% - Immature Granulocytes (promyelocytes, myelocytes andmetamyelocytes) > 1% indicates that a LEFT SHIFT is Present. Performed By: #### L 500.3400, L700.6800, L100.0100, L500.2500, L501.2450 ####[facility] [address] [place], [address] Lymphocytes/100 WBC (Bld) 13.0 % Low 19-41 [facility] Comment on above: Performed By: #### L 500.3400, L700.6800, L100.0100, L500.2500, L501.2450 ####[facility] [address] [place], [address] MCH (RBC) [Entitic mass] 27.0 pg Normal 27.0-32.0 [facility] Comment on above: Performed By: #### L 500.3400, L700.6800, L100.0100, L500.2500, L501.2450 ####[facility] [address] [place], [address] MCHC (RBC) [Mass/Vol] 32.7 g/dL Normal 32-36 [facility] Comment on above: Performed By: #### L 500.3400, L700.6800, L100.0100, L500.2500, L501.2450 ####[facility] [address] [place], [address] MCV (RBC) [Entitic vol] 82.5 fL Normal 81-99 [facility] Comment on above: Performed By: #### L 500.3400, L700.6800, L100.0100, L500.2500, L501.2450 ####[facility] [address] [place], [address] Monocytes/100 WBC (Bld) 4.5 % Normal 0-10 [facility] Comment on above: Performed By: #### L 500.3400, L700.6800, L100.0100, L500.2500, L501.2450 ####[facility] [address] [place], [address] Neutrophils/100 WBC (Bld) 80.0 % High 47-70 [facility] Comment on above: Performed By: #### L 500.3400, L700.6800, L100.0100, L500.2500, L501.2450 ####[facility] [address] [place], [address] Nucleated RBC (Bld) [#/Vol] 0 10*3/uL Normal 0-5 [facility] Comment on above: Performed By: #### L 500.3400, L700.6800, L100.0100, L500.2500, L501.2450 ####[facility] [address] [place], [address] Platelet mean volume (Bld) [Entitic vol] 9.9 fL Normal 6.2-12.0 [facility] Comment on above: Performed By: #### L 500.3400, L700.6800, L100.0100, L500.2500, L501.2450 ####[facility] [address] [place], [address] Platelets (Bld) [#/Vol] 371 10*3/uL Normal 150-450 [facility] Comment on above: Performed By: #### L 500.3400, L700.6800, L100.0100, L500.2500, L501.2450 ####[facility] [address] [place], [address] RBC (Bld) [#/Vol] 5.19 10*6/uL Normal 4.2-5.4 [facility] Comment on above: Performed By: #### L 500.3400, L700.6800, L100.0100, L500.2500, L501.2450 ####[facility] [address] [place], [address] RDW SD 39.1 fl Normal 35.1-43.9 [facility] Comment on above: Performed By: #### L 500.3400, L700.6800, L100.0100, L500.2500, L501.2450 ####[facility] [address] [place], [address] WBC (Bld) [#/Vol] 13.9 10*3/uL High 4.4-11.0 [facility] Comment on above: Performed By: #### L 500.3400, L700.6800, L100.0100, L500.2500, L501.2450 ####[facility] [address] [place], [address] Carbon dioxide, total [Moles /volume] in Central venous bloodOrdered By: Yony Newman on 09-12-2024 CO2 [Moles/Vol] 22.7 mmol/L 21.0-32.0 [facility] Chloride assayOrdered By: Jd Newman on 09-12-2024 Chloride [Moles/Vol] 102 mmol/L 98-108 [facility] Emergency Department Summary on 09-12-2024 Emergency Department Summary Normal [facility] Eosinophil percentageOrdered By: Yony Newman on 09-12-2024 Eosinophils/100 WBC (Bld) 1.7 % 0-5 [facility] Epithelial cells.squamous LM Ql (Urine sed)Ordered By: Yony Newman on 09-12-2024 Epithelial cells.squamous LM.HPF (Urine sed) [#/Area] 0 /[HPF] 5-10 [facility] Erythrocyte distribution wid th ratioOrdered By: Yony Newman on 09-12-2024 Erythrocyte distribution width (RBC) [Ratio] 13.1 % 11.6-14.6 [facility] Erythrocyte distribution wid th standard deviationOrdered By: Yony Newman on 09-12-2024 Erythrocyte distribution width (RBC) [Entitic vol] 39.1 fL 35.1-43.9 [facility] Estimation of creatinine yogesh aranceOrdered By: Yony Newman on 09-12-2024 Estimated Creatinine Clearance Calc 136.91 ml/min 50-250 [facility] Ethanol [Mass/Vol]Ordered By : Yony Newman on 09-12-2024 Ethyl Alcohol Level < 10.1 mg/dL <10.1 [facility] Comment on above: This test is for med ical purposes only. The legal definition of intoxication varies according to local law. GFR/1.73 sq M.predicted daysi g non-blacks MDRD (S/P/Bld) [Vol rate/Area]Ordered By: Yony Newman on 09-12-2024 Estimated GFR (MDRD) Non-Af Amer 115 >60 [facility] Comment on above: mL/min/1.73m2 CKD-EP I Creatinine Equation (2020) Glucose Ql (U)Ordered By: Jd Newman on 09-12-2024 Urine Glucose (UA) Normal mg/dl Normal [facility] H AND P Exam - Hospitaliston 09-12-2024 H&P Exam - Hospitalist Normal [facility] Hematocrit Auto (Bld) [Volum e fraction]Ordered By: Yony Newman on 09-12-2024 Hematocrit (Bld) [Volume fraction] 42.8 % 37-47 [facility] Hemoglobin measurementOrdere d By: Yony Newman on 09-12-2024 Hemoglobin (Bld) [Mass/Vol] 14.0 g/dL 12.0-15.0 [facility] Immature granulocytes/100 WB C Auto (Bld)Ordered By: Yony Newman on 09-12-2024 Immature granulocytes/100 WBC (Bld) 0.400 % 0.0-0.9 [facility] Comment on above: IG% - Immature Granu locytes (promyelocytes, myelocytes and metamyelocytes) > 1% indicates that a LEFT SHIFT is Present. Ketones Test strip Ql (U)Ord ered By: Yony Newman on 09-12-2024 Ketones Ql (U) Negative Negative [facility] L499.0042on 09-12-2024 Trop T High Sen < 6 Normal <=14 [facility] Comment on above: Performed By: #### L 499.0042 ####[facility] [address] [place], [address] L501.4021on 09-12-2024 Trop T High Sen < 6 Normal <=14 [facility] Comment on above: Performed By: #### L 501.4021 ####[facility] [address] [place], [address] Laboratory - Chemistry and C hemistry - challengeOrdered By: Yony Newman on 09-12-2024 AST [Catalytic activity/Vol] 19 U/L <32 [facility] Lipaseon 09-12-2024 Lipase [Catalytic activity/Vol] 1599 U/L High 13-75 [facility] Comment on above: Result Comment: Giovanni reilly note:LIPASE revised reference range effective 22.New Lipase methodology. Expected to produce lower valuesthan the previous assay method.NEW Reference Range: 13 - 75 U/L Performed By: #### L 500.3400, L700.6800, L100.0100, L500.2500, L501.2450 ####[facility] [address] [place], [address] Lipase measurementOrdered By : Yony Newman on 09-12-2024 Lipase [Catalytic activity/Vol] 1599 U/L High 13-75 [facility] Comment on above: Please note:LIPASE r evised reference range effective 22. New Lipase methodology. Expected to produce lower values than the previous assay method. NEW Reference Range: 13 - 75 U/L Liver Profileon 09-12-2024 Albumin [Mass/Vol] 4.5 g/dL Normal 3.5-5.0 [facility] Comment on above: Performed By: #### L 500.3400, L700.6800, L100.0100, L500.2500, L501.2450 ####[facility] [address] [place], [address] ALK PHOS 73 U/L Normal 35-104 [facility] Comment on above: Performed By: #### L 500.3400, L700.6800, L100.0100, L500.2500, L501.2450 ####[facility] [address] [place], [address] ALT [Catalytic activity/Vol] 20 U/L Normal <=34 [facility] Comment on above: Performed By: #### L 500.3400, L700.6800, L100.0100, L500.2500, L501.2450 ####[facility] [address] [place], [address] AST [Catalytic activity/Vol] 19 U/L Normal <=31 [facility] Comment on above: Performed By: #### L 500.3400, L700.6800, L100.0100, L500.2500, L501.2450 ####[facility] [address] [place], [address] Bilirubin [Mass/Vol] 0.52 mg/dL Normal 0.00-1.30 [facility] Comment on above: Performed By: #### L 500.3400, L700.6800, L100.0100, L500.2500, L501.2450 ####[facility] [address] [place], [address] Bilirubin.direct [Mass/Vol] 0.20 mg/dL Normal 0.00-0.30 [facility] Comment on above: Performed By: #### L 500.3400, L700.6800, L100.0100, L500.2500, L501.2450 ####[facility] [address] [place], [address] Globulin (S) [Mass/Vol] 0.2 g/dL Low 2.2-4.2 [facility] Comment on above: Performed By: #### L 500.3400, L700.6800, L100.0100, L500.2500, L501.2450 ####[facility] [address] [place], [address] T PROT 4.6 g/dL Low 5.9-8.4 [facility] Comment on above: Performed By: #### L 500.3400, L700.6800, L100.0100, L500.2500, L501.2450 ####[facility] [address] [place], [address] Lymphocytes Auto (Unsp spec) [#/Vol]Ordered By: Yony Newman on 09-12-2024 Lymphocytes (Bld) [#/Vol] 1.81 10*3/uL 0.83-4.51 [facility] Lymphocytes/100 WBC Auto (Un sp spec)Ordered By: Yony Newman on 09-12-2024 Lymphocytes/100 WBC (Bld) 13.0 % Low 19-41 [facility] MCV (mean corpuscular volume ) determinationOrdered By: Yony Newman on 09-12-2024 MCV (RBC) [Entitic vol] 82.5 fL 81-99 [facility] Mean corpuscular hemoglobin (MCH) determinationOrdered By: Yony Newman on 09-12-2024 MCH (RBC) [Entitic mass] 27.0 pg 27.0-32.0 [facility] Mean corpuscular hemoglobin concentration (MCHC) determinationOrdered By: Yony Newman on 09-12-2024 MCHC (RBC) [Mass/Vol] 32.7 g/dL 32-36 [facility] Mean platelet volume determi nationOrdered By: Yony Newman on 09-12-2024 Platelet mean volume (Bld) [Entitic vol] 9.9 fL 6.2-12.0 [facility] Methadone, urineOrdered By: Yony Newman on 09-12-2024 Urine Methadone Screen Negative < 300 ng/mL [facility] Microscopic analysis of urin e for red blood cells (RBC)Ordered By: Yony Newman on 09-12-2024 Urine RBC 0 SEEN /hpf 0-5 [facility] Monocyte percentageOrdered B y: Yony Newman on 09-12-2024 Monocytes/100 WBC (Bld) 4.5 % 0-10 [facility] Mucus LM Ql (Urine sed)Order ed By: Yony Newman on 09-12-2024 Mucus Ql (Urine sed) 0 SEEN /hpf [facility] Neutrophil percentageOrdered By: Yony Newman on 09-12-2024 Neutrophils/100 WBC (Bld) 80.0 % High 47-70 [facility] Nitrite Test strip Ql (U)Ord ered By: Yony Newman on 09-12-2024 Nitrite Ql (U) Negative Negative [facility] No Panel InformationOrdered By: Yony Newman on 09-12-2024 Urine Buprenorphine Qualitative Negative < 200 ng/mL [facility] Urine Oxycodone Screen Negative < 100 ng/mL [facility] Negative < 200 ng/mL [facility] Troponin T High Sensitivity < 6 ng/L <14 [facility] < 6 ng/L <14 [facility] Nucleated red blood cell per centageOrdered By: Yony Newman on 09-12-2024 Nucleated RBC/100 WBC (Bld) [Ratio] 0 % 0-5 [facility] Platelet countOrdered By: Jd Newman on 09-12-2024 Platelets (Bld) [#/Vol] 371 10*3/uL 150-450 [facility] Potassium (Unsp spec) [Mass/ Vol]Ordered By: Yony Newman on 09-12-2024 Potassium [Moles/Vol] 4.4 mmol/L 3.3-5.1 [facility] ,Serum,hCG Quali.on 09-12-2024 HCG, SERUM QUAL Negative Normal [facility] Comment on above: Performed By: #### L 500.3400, L700.6800, L100.0100, L500.2500, L501.2450 ####[facility] [address] [place], [address] Protein Test strip Ql (U)Ord ered By: Yony Newman on 09-12-2024 Protein Ql (U) 15 mg/dl High Negative [facility] Quantitative urine opiates m easurementOrdered By: Yony Newman on 09-12-2024 Opiates Ql (U) Negative < 300 ng/mL [facility] RBC Auto (Bld) [#/Vol]Ordere d By: Yony Newman on 09-12-2024 RBC (Bld) [#/Vol] 5.19 10*6/uL 4.2-5.4 [facility] Screening urine fentanyl chloe surementOrdered By: Yony Newman on 09-12-2024 fentaNYL Screen Ql (U) Negative [facility] Serum beta-hCG test, qualita tiveOrdered By: Yony Newman on 09-12-2024 Beta HCG ( test) Ql Negative [facility] Serum creatinine measurement (mass/volume)Ordered By: Yony Newman on 09-12-2024 Creatinine [Mass/Vol] 0.59 mg/dL Low 0.70-1.20 [facility] Serum globulin measurementOr dered By: Yony Newman on 09-12-2024 Globulin (S) [Mass/Vol] 0.2 g/dL Low 2.2-4.2 [facility] Serum glucose measurement (m ass/volume)Ordered By: Yony Newman on 09-12-2024 Glucose [Mass/Vol] 118 mg/dL High 70-99 [facility] Serum or plasma alanine barton otransferase (ALT) measurementOrdered By: Yony Newman on 09-12-2024 ALT [Catalytic activity/Vol] 20 U/L <35 [facility] Serum or plasma albumin chris urement (mass/volume)Ordered By: Yony Newman on 09-12-2024 Albumin [Mass/Vol] 4.5 g/dL 3.5-5.0 [facility] Serum or plasma alkaline saeed sphatase measurementOrdered By: Yony Newman on 09-12-2024 ALP [Catalytic activity/Vol] 73 U/L 35-104 [facility] Serum or plasma calcium chris urement (mass/volume)Ordered By: Yony Newman on 09-12-2024 Calcium [Mass/Vol] 9.8 mg/dL 7.6-11.0 [facility] Serum or plasma ethanol chris urement (mass/volume)Ordered By: Yony Newman on 09-12-2024 Ethanol [Mass/Vol] mg/dL <10.1 [facility] Serum or plasma urea nitroge n measurement (mass/volume)Ordered By: Yony Newman on 09-12-2024 Urea nitrogen [Mass/Vol] 4 mg/dL 4-19 [facility] Sodium levelOrdered By: Stephon Newman on 09-12-2024 Sodium [Moles/Vol] 135 mmol/L 133-145 [facility] Squamous epithelial cells de tection in urine sediment by light microscopyOrdered By: Yony Newman on 09-12-2024 Epithelial cells.squamous LM Ql (Urine sed) 0-5 SEEN /hpf 5-10 [facility] Total proteinOrdered By: Ishan Newman on 09-12-2024 Protein [Mass/Vol] 4.6 g/dL Low 5.9-8.4 [facility] Triglycerideson 09-12-2024 Triglyceride [Mass/Vol] 89 mg/dL Normal [facility] Comment on above: Result Comment: The drugs N-Acetylcysteine and Metamizole may falselydepress this assay.Normal range: <150 mg/dLBorderline High: 150-199 mg/dLHigh: 200-499 mg/dLVery High: >500 mg/dL Performed By: #### L 501.5000 ####[facility] [address] [place], [address] Triglycerides measurementOrd ered By: Charlotte Gibbs on 09-12-2024 Triglyceride [Mass/Vol] 89 mg/dL <199 [facility] Comment on above: The drugs N-Acetylcy steine and Metamizole may falsely depress this assay. Normal range: <150 mg/dLBorderline High: 150-199 mg/dLHigh: 200-499 mg/dLVery High: >500 mg/dL Troponin T.cardiac High sens itivity method [Mass/Vol]Ordered By: Yony Newman on 09-12-2024 Troponin T High Sensitivity 2 Hour < 6 ng/L <14 [facility] Troponin T.cardiac [Mass/vol ume] in Serum or Plasma by High sensitivity methodOrdered By: Yony Newman on 09-12-2024 Troponin T.cardiac High sensitivity method [Mass/Vol] < 6 ng/L <14 [facility] Urinalysis, Completeon 09-12 BACTERIA 1+ /hpf Normal None Seen [facility] Comment on above: Order Comment: CLEAN CATCH Performed By: #### L 400.0001 ####[facility] [address] [place], [address] AMORPHOUS 2+ Normal [facility] Comment on above: Order Comment: CLEAN CATCH Performed By: #### L 400.0001 ####[facility] [address] [place], [address] EPI,SQUAMOUS 0-5 SEEN Normal 5-10 [facility] Comment on above: Order Comment: CLEAN CATCH Performed By: #### L 400.0001 ####[facility] [address] [place] [id number] RBC 0 SEEN Normal 0-5 [facility] Comment on above: Order Comment: CLEAN CATCH Performed By: #### L 400.0001 ####[facility] [address] [place], [address] Mucus Ql (Urine sed) 0 SEEN Normal [facility] Comment on above: Order Comment: CLEAN CATCH Performed By: #### L 400.0001 ####[facility] [address] [facility] [address] WBC 0 SEEN Normal 0-5 [facility] Comment on above: Order Comment: CLEAN CATCH Performed By: #### L 400.0001 ####[facility] [address] [facility] [address] Urine Drug Screen (VISTA)on 09-12-2024 AMPHETAMINES Negative Normal <1000 ng/mL [facility] Comment on above: Performed By: #### L 505.5000, L501.9100 ####[facility] [address] [place], [address] BARBITIURATES Negative Normal < 200 ng/mL [facility] Comment on above: Performed By: #### L 505.5000, L5.00 ####[facility] [address] [place], [address] BENZODIAZIPINE Negative Normal < 200 ng/mL [facility] Comment on above: Performed By: #### L 505.5000, L5.00 ####[facility] [address] [place], [address] BUP Ur Drug Scr Negative Normal < 200 ng/mL [facility] Comment on above: Performed By: #### L 505.5000, L500 ####[facility] [address] [place], [address] COCAINE Negative Normal < 300 ng/mL [facility] Comment on above: Performed By: #### L 505.5000, 00 ####[facility] [address] [place], [address] Fentanyl Negative Normal [facility] Comment on above: Performed By: #### L 505.5000, 00 ####[facility] [address] [place], [address] METHADONE Negative Normal < 300 ng/mL [facility] Comment on above: Performed By: #### L 505.5000, L500 ####[facility] [address] [place], [address] OPIATES Negative Normal < 300 ng/mL [facility] Comment on above: Performed By: #### L 505.5000, L500 ####[facility] [address] [place], [address] OXYCODONE Negative Normal < 100 ng/mL [facility] Comment on above: Performed By: #### L 505.5000, L500 ####[facility] [address] [place], [address] PCP Negative Normal < 25 ng/mL [facility] Comment on above: Performed By: #### L 505.5000, L501.9100 ####[facility] [address] [place], [address] THC Negative Normal < 50 ng/mL [facility] Comment on above: Performed By: #### L 505.5000, L501.9100 ####[facility] [address] [place], [address] Urine benzodiazepine levelOr dered By: Yony Newman on 09-12-2024 Benzodiazepines Ql (U) Negative < 200 ng/mL [facility] Urine blood detectionOrdered By: Yony Newman on 09-12-2024 Urine Occult Blood Negative Negative [facility] Urine clarityOrdered By: Ishan Newman on 09-12-2024 Clarity (U) Sl. Cloudy Clear [facility] Urine cocaine levelOrdered B y: Yony Newman on 09-12-2024 Cocaine Ql (U) Negative < 300 ng/mL [facility] Urine color determinationOrd ered By: Yony Newman on 09-12-2024 Color (U) Yellow Yellow [facility] Urine hvyqa-5-taqntytglcdboo abinol (THC) measurementOrdered By: Yony Newman on 09-12-2024 Cannabinoids Screen Ql (U) Negative < 50 ng/mL [facility] Urine glucose detectionOrder ed By: Yony Newman on 09-12-2024 Glucose Ql (U) Normal mg/dl Normal [facility] Urine leukocyte esterase det ection by dipstickOrdered By: Yony Newman on 09-12-2024 Leukocyte esterase Test strip Ql (U) Negative Negative [facility] Urine pHOrdered By: Yony del rosario on 09-12-2024 pH (U) 8.0 [pH] 5.0 - 8.0 [facility] Urine phencyclidine (PCP) de tectionOrdered By: Yony Newman on 09-12-2024 Phencyclidine Ql (U) Negative < 25 ng/mL [facility] Urine sediment bacteria coun t by microscopy (number/high power field)Ordered By: Yony Newman on 09-12-2024 Bacteria LM.HPF (Urine sed) [#/Area] 1 /[HPF] None Seen [facility] Urine specific gravity measu rementOrdered By: Yony Newman on 09-12-2024 Specific gravity (U) [Rel density] 1.015 1.002-1.030 [facility] Urine urobilinogen measureme ntOrdered By: Yony Newman on 09-12-2024 Urobilinogen Ql (U) Normal mg/dl Normal [facility] Urobilinogen Ql (U)Ordered B y: Yony Newman on 09-12-2024 Urine Urobilinogen Normal mg/dl Normal [facility] White blood cell (WBC) count Ordered By: Yony Newman on 09-12-2024 WBC (Bld) [#/Vol] 13.9 10*3/uL High 4.4-11.0 [facility] White blood cell countOrdere d By: Yony Newman on 09-12-2024 Urine WBC 0 SEEN /hpf 0-5 [facility] White blood cell count 0 SEEN /hpf 0-5 [facility] fentaNYL Screen Ql (U)Ordere d By: Yony Newman on 09-12-2024 Urine Fentanyl Screen Negative [facility] 36-BH-Njhqhxt DOrdered By: Marian Escobar on 05-18-2024 Vitamin D 25-Hydroxy 32.7 ng/mL [facility] Comment on above: Vitamin D 25(OH) Sta tus Range Deficiency <20 ng/mL (50nmol/L) Insufficiency 20 - 30 ng/mL (50 - 75 nmol/L) Sufficiency 30 - 100 ng/mL (75 - 250 nmol/L) Toxicity >100 ng/mL (>250 nmol/L) Absolute neutrophil countOrd ered By: Mary Escobar on 05-18-2024 Neutrophils (Bld) [#/Vol] 4.7 10*3/uL 2.0-7.7 [facility] Albumin to globulin ratioOrd ered By: Mary Escobar on 05-18-2024 Albumin/Globulin [Mass ratio] 1.1 {ratio} 0.9-2.4 [facility] Basophil percentageOrdered B y: Mary Escobar on 05-18-2024 Basophils/100 WBC (Bld) 0.5 % 0-1 [facility] Bilirubin, totalOrdered By: Mary Escobar on 05-18-2024 Bilirubin [Mass/Vol] 0.50 mg/dL 0.20-1.00 [facility] Comment on above: For patients on eltr ombopag therapy, use of Dimension [place] TBIL is not recommended. Blood urea nitrogen (BUN)/cr eatinine ratioOrdered By: Mary Escobar on 05-18-2024 Urea nitrogen/Creatinine [Mass ratio] 22.1 mg/mg High 10- [facility] CBC W/Diff, Automatedon 04-21 Absolute Lymph 2.24 X10 3/uL Normal 0.83-4.51 [facility] Comment on above: Order Comment: Order Date: 04/06/24Order Info: 0184-1 - CBCD Performed By: #### L 501.9520, L500.4050, L501.9985, L506.1000, L500.4100, L100.0100 ####[facility] [address] [facility] [place], [address] Absolute Neut 4.7 X10 3/uL Normal 2.0-7.7 [facility] Comment on above: Order Comment: Order Date: 04/06/24Order Info: 0184-1 - CBCD Performed By: #### L 501.9520, L500.4050, L501.9985, L506.1000, L500.4100, L100.0100 ####[facility] [address] [facility] [place], [address] Basophils/100 WBC (Bld) 0.5 % Normal 0-1 [facility] Comment on above: Order Comment: Order Date: 04/06/24Order Info: 0184-1 - CBCD Performed By: #### L 501.9520, L500.4050, L501.9985, L506.1000, L500.4100, L100.0100 ####[facility] [address] [place], [address] Eosinophils/100 WBC (Bld) 2.8 % Normal 0-5 [facility] Comment on above: Order Comment: Order Date: 04/06/24Order Info: 0184-1 - CBCD Performed By: #### L 501.9520, L500.4050, L501.9985, L506.1000, L500.4100, L100.0100 ####[facility] [address] [place], [address] Erythrocyte distribution width (RBC) [Ratio] 12.9 % Normal 11.6-14.6 [facility] Comment on above: Order Comment: Order Date: 04/06/24Order Info: 018- - CBCD Performed By: #### L 501.9520, L500.4050, L501.9985, L506.1000, L500.4100, L100.0100 ####[facility] [address] [place], [address] Hematocrit (Bld) [Volume fraction] 39.7 % Normal 37-47 [facility] Comment on above: Order Comment: Order Date: 04/06/24Order Info: 0184- - CBCD Performed By: #### L 501.9520, L500.4050, L501.9985, L506.1000, L500.4100, L100.0100 ####[facility] [address], [address] Hemoglobin (Bld) [Mass/Vol] 13.0 g/dL Normal 12.0-15.0 [facility] Comment on above: Order Comment: Order Date: 04/06/24Order Info: 0184- - CBCD Performed By: #### L 501.9520, L500.4050, L501.9985, L506.1000, L500.4100, L100.0100 ####[facility] [address] [place], [address] IG% 0.300 Normal 0.0-0.9 [facility] Comment on above: Order Comment: Order Date: 04/06/24Order Info: 0184-1 - CBCD Result Comment: IG% - Immature Granulocytes (promyelocytes, myelocytes andmetamyelocytes) > 1% indicates that a LEFT SHIFT is Present. Performed By: #### L 501.9520, L500.4050, L501.9985, L506.1000, L500.4100, L100.0100 ####[facility] [address] [place], [address] Lymphocytes/100 WBC (Bld) 29.7 % Normal 19-41 [facility] Comment on above: Order Comment: Order Date: 04/06/24Order Info: 0184-1 - CBCD Performed By: #### L 501.9520, L500.4050, L501.9985, L506.1000, L500.4100, L100.0100 ####[facility] [address] [place], [address] MCH (RBC) [Entitic mass] 27.3 pg Normal 27.0-32.0 [facility] Comment on above: Order Comment: Order Date: 04/06/24Order Info: 0184-1 - CBCD Performed By: #### L 501.9520, L500.4050, L501.9985, L506.1000, L500.4100, L100.0100 ####[facility] [address] [place], [address] MCHC (RBC) [Mass/Vol] 32.7 g/dL Normal 32-36 [facility] Comment on above: Order Comment: Order Date: 04/06/24Order Info: 0184-1 - CBCD Performed By: #### L 501.9520, L500.4050, L501.9985, L506.1000, L500.4100, L100.0100 ####[facility] [address] [place], [address] MCV (RBC) [Entitic vol] 83.2 fL Normal 81-99 [facility] Comment on above: Order Comment: Order Date: 04/06/24Order Info: 018- - CBCD Performed By: #### L 501.9520, L500.4050, L501.9985, L506.1000, L500.4100, L100.0100 ####[facility] [address] [place], [address] Monocytes/100 WBC (Bld) 4.5 % Normal 0-10 [facility] Comment on above: Order Comment: Order Date: 04/06/24Order Info: 018- - CBCD Performed By: #### L 501.9520, L500.4050, L501.9985, L506.1000, L500.4100, L100.0100 ####[facility] [address] [place], [address] Neutrophils/100 WBC (Bld) 62.2 % Normal 47-70 [facility] Comment on above: Order Comment: Order Date: 04/06/24Order Info: 018- - CBCD Performed By: #### L 501.9520, L500.4050, L501.9985, L506.1000, L500.4100, L100.0100 ####[facility] [address] [place], [address] Nucleated RBC (Bld) [#/Vol] 0 10*3/uL Normal 0-5 [facility] Comment on above: Order Comment: Order Date: 04/06/24Order Info: 018- - CBCD Performed By: #### L 501.9520, L500.4050, L501.9985, L506.1000, L500.4100, L100.0100 ####[facility] [address] [place], [address] Platelet mean volume (Bld) [Entitic vol] 10.1 fL Normal 6.2-12.0 [facility] Comment on above: Order Comment: Order Date: 04/06/24Order Info: 183- - CBCD Performed By: #### L 501.9520, L500.4050, L501.9985, L506.1000, L500.4100, L100.0100 ####[facility] [address] [place], [address] Platelets (Bld) [#/Vol] 290 10*3/uL Normal 150-450 [facility] Comment on above: Order Comment: Order Date: 04/06/24Order Info: [id number]- - CBCD Performed By: #### L 501.9520, L500.4050, L501.9985, L506.1000, L500.4100, L100.0100 ####[facility] [address] [place], [address] RBC (Bld) [#/Vol] 4.77 10*6/uL Normal 4.2-5.4 [facility] Comment on above: Order Comment: Order Date: 04/06/24Order Info: [id number]- - CBCD Performed By: #### L 501.9520, L500.4050, L501.9985, L506.1000, L500.4100, L100.0100 ####[facility] [address] [place], [address] RDW SD 38.9 fl Normal 35.1-43.9 [facility] Comment on above: Order Comment: Order Date: 04/06/24Order Info: 183- - CBCD Performed By: #### L 501.9520, L500.4050, L501.9985, L506.1000, L500.4100, L100.0100 ####[facility] [address] [place], [address] WBC (Bld) [#/Vol] 7.5 10*3/uL Normal 4.4-11.0 [facility] Comment on above: Order Comment: Order Date: 04/06/24Order Info: [id number] - CBCD Performed By: #### L 501.9520, L500.4050, L501.9985, L506.1000, L500.4100, L100.0100 ####[facility] [address] [place], [address] Carbon dioxide measurementOr dered By: Mary Escobar on 05-18-2024 CO2 [Moles/Vol] 26.0 mmol/L 21.0-32.0 [facility] Chloride measurementOrdered By: Mary Escobar on 05-18-2024 Chloride [Moles/Vol] 108 mmol/L High 98-107 [facility] Comprehensive Metabolic Prof ilon 05-18-2024 Albumin [Mass/Vol] 3.6 g/dL Normal 3.2-5.0 [facility] Comment on above: Order Comment: Order Date: 04/06/24Order Info: [id number] - CMPOrder Info: [id number] - LIPIDOrder Info: [id number] - TSH Performed By: #### L 501.9520, L500.4050, L501.9985, L506.1000, L500.4100, L100.0100 ####[facility] [address] [place], [address] Albumin/Globulin [Mass ratio] 1.1 {ratio} Normal 0.9-2.4 [facility] Comment on above: Order Comment: Order Date: 04/06/24Order Info: [id number] - CMPOrder Info: [id number] - LIPIDOrder Info: [id number] - TSH Performed By: #### L 501.9520, L500.4050, L501.9985, L506.1000, L500.4100, L100.0100 ####[facility] [address] [place], [address] ALK P 84 U/L Normal 45-117 [facility] Comment on above: Order Comment: Order Date: 04/06/24Order Info: 07-1 - CMPOrder Info: [id number] - LIPIDOrder Info: [id number] - TSH Performed By: #### L 501.9520, L500.4050, L501.9985, L506.1000, L500.4100, L100.0100 ####[facility] [address] [place], [address] ALT [Catalytic activity/Vol] 29 U/L Normal 13-56 [facility] Comment on above: Order Comment: Order Date: 04/06/24Order Info: [id number]- - CMPOrder Info: [id number] - LIPIDOrder Info: [id number] - TSH Performed By: #### L 501.9520, L500.4050, L501.9985, L506.1000, L500.4100, L100.0100 ####[facility] [address] [place], [address] AST [Catalytic activity/Vol] 18 U/L Normal 15-37 [facility] Comment on above: Order Comment: Order Date: 04/06/24Order Info: 07 - CMPOrder Info: [id number] - LIPIDOrder Info: [id number] - TSH Performed By: #### L 501.9520, L500.4050, L501.9985, L506.1000, L500.4100, L100.0100 ####[facility] [address] [place], [address] Bilirubin [Mass/Vol] 0.50 mg/dL Normal 0.20-1.00 [facility] Comment on above: Order Comment: Order Date: 04/06/24Order Info: 07- - CMPOrder Info: [id number] - LIPIDOrder Info: [id number] - TSH Result Comment: For patients on eltrombopag therapy, use of Dimension [place] TBIL is not recommended. Performed By: #### L 501.9520, L500.4050, L501.9985, L506.1000, L500.4100, L100.0100 ####[facility] [address] [place], [address] BUN/CRE 22.1 RATIO High 10-20 [facility] Comment on above: Order Comment: Order Date: 04/06/24Order Info: [id number] - CMPOrder Info: [id number] - LIPIDOrder Info: [id number] - TSH Performed By: #### L 501.9520, L500.4050, L501.9985, L506.1000, L500.4100, L100.0100 ####[facility] [address] [place], [address] CA,Total 9.6 mg/dL Normal 8.5-10.1 [facility] Comment on above: Order Comment: Order Date: 04/06/24Order Info: [id number] - CMPOrder Info: [id number] - LIPIDOrder Info: [id number] - TSH Performed By: #### L 501.9520, L500.4050, L501.9985, L506.1000, L500.4100, L100.0100 ####[facility] [address] [place], [address] Chloride [Moles/Vol] 108 mmol/L High 98-107 [facility] Comment on above: Order Comment: Order Date: 04/06/24Order Info: [id number] - CMPOrder Info: [id number] - LIPIDOrder Info: [id number] - TSH Performed By: #### L 501.9520, L500.4050, L501.9985, L506.1000, L500.4100, L100.0100 ####[facility] [address] [place], [address] CO2 [Moles/Vol] 26.0 mmol/L Normal 21.0-32.0 [facility] Comment on above: Order Comment: Order Date: 04/06/24Order Info: [id number] - CMPOrder Info: [id number] - LIPIDOrder Info: [id number] - TSH Performed By: #### L 501.9520, L500.4050, L501.9985, L506.1000, L500.4100, L100.0100 ####[facility] [address] [place], [address] Creatinine [Mass/Vol] 0.50 mg/dL Low 0.55-1.02 [facility] Comment on above: Order Comment: Order Date: 04/06/24Order Info: [id number] - CMPOrder Info: [id number] - LIPIDOrder Info: 3 - TSH Result Comment: The validity of the calculated GFR GFRAA in patients over70 years has not been determined. Clinical correlation isessential. Performed By: #### L 501.9520, L500.4050, L501.9985, L506.1000, L500.4100, L100.0100 ####[facility] [address] [place], [address] EST GFR - AA 173 mL/min Normal >60 [facility] Comment on above: Order Comment: Order Date: 04/06/24Order Info: [id number] - CMPOrder Info: [id number] - LIPIDOrder Info: [id number] - TSH Result Comment: Afri can Mozambican GFR Calc Performed By: #### L 501.9520, L500.4050, L501.9985, L506.1000, L500.4100, L100.0100 ####[facility] [address] [place], [address] GAP 5 Normal 5-15 [facility] Comment on above: Order Comment: Order Date: 04/06/24Order Info: [id number]- - CMPOrder Info: [id number] - LIPIDOrder Info: [id number] - TSH Performed By: #### L 501.9520, L500.4050, L501.9985, L506.1000, L500.4100, L100.0100 ####[facility] [address] [place], [address] GFR/1.73 sq M.predicted among non-blacks MDRD (S/P/Bld) [Vol rate/Area] 143 mL/min/{1.73_m2} Normal >60 [facility] Comment on above: Order Comment: Order Date: 04/06/24Order Info: 86-1 - CMPOrder Info: [id number] - LIPIDOrder Info: [id number] - TSH Result Comment: Non- GFR Calc Performed By: #### L 501.9520, L500.4050, L501.9985, L506.1000, L500.4100, L100.0100 ####[facility] [address] [place], [address] Globulin (S) [Mass/Vol] 3.4 g/dL Normal 2.2-4.2 [facility] Comment on above: Order Comment: Order Date: 04/06/24Order Info: [id number] - CMPOrder Info: [id number] - LIPIDOrder Info: [id number] - TSH Performed By: #### L 501.9520, L500.4050, L501.9985, L506.1000, L500.4100, L100.0100 ####[facility] [address] [place], [address] Glucose [Mass/Vol] 94 mg/dL Normal 74-106 [facility] Comment on above: Order Comment: Order Date: 04/06/24Order Info: [id number] - CMPOrder Info: [id number] - LIPIDOrder Info: [id number] - TSH Performed By: #### L 501.9520, L500.4050, L501.9985, L506.1000, L500.4100, L100.0100 ####[facility] [address] [place], [address] Potassium [Moles/Vol] 4.1 mmol/L Normal 3.5-5.1 [facility] Comment on above: Order Comment: Order Date: 04/06/24Order Info: [id number] - CMPOrder Info: [id number] - LIPIDOrder Info: [id number] - TSH Performed By: #### L 501.9520, L500.4050, L501.9985, L506.1000, L500.4100, L100.0100 ####[facility] [address] [place], [address] Sodium [Moles/Vol] 139 mmol/L Normal 136-145 [facility] Comment on above: Order Comment: Order Date: 04/06/24Order Info: [id number]- - CMPOrder Info: [id number] - LIPIDOrder Info: [id number] - TSH Performed By: #### L 501.9520, L500.4050, L501.9985, L506.1000, L500.4100, L100.0100 ####[facility] [address] [place], [address] T PROT 7.0 g/dL Normal 6.4-8.2 [facility] Comment on above: Order Comment: Order Date: 04/06/24Order Info: [id number]- - CMPOrder Info: [id number] - LIPIDOrder Info: [id number] - TSH Performed By: #### L 501.9520, L500.4050, L501.9985, L506.1000, L500.4100, L100.0100 ####[facility] [address] [place], [address] Urea nitrogen [Mass/Vol] 11 mg/dL Normal 7-18 [facility] Comment on above: Order Comment: Order Date: 04/06/24Order Info: 07-1 - CMPOrder Info: [id number] - LIPIDOrder Info: [id number] - TSH Performed By: #### L 501.9520, L500.4050, L501.9985, L506.1000, L500.4100, L100.0100 ####[facility] [address] [place], [address] Eosinophil percentageOrdered By: [facility] on 05-18-2024 Eosinophils/100 WBC (Bld) 2.8 % 0-5 [facility] Erythrocyte distribution wid th ratioOrdered By: [facility] on 05-18-2024 Erythrocyte distribution width (RBC) [Ratio] 12.9 % 11.6-14.6 [facility] Erythrocyte distribution wid th standard deviationOrdered By: [facility] on 05-18-2024 Erythrocyte distribution width (RBC) [Entitic vol] 38.9 fL 35.1-43.9 [facility] Estimated glomerular filtrat ion rate (GFR) AmericanOrdered By: [facility] on 05-18-2024 Estimated GFR (MDRD) Amer 173 mL/min >60 [facility] Comment on above: GFR Calc Glomerular filtration rate ( GFR) estimationOrdered By: [facility] Luz on 05-18-2024 Estimated GFR (MDRD) Non-Af Amer 143 mL/min >60 [facility] Comment on above: Non- GFR Calc Glucose measurementOrdered B y: Mary Luz on 05-18-2024 Glucose [Mass/Vol] 94 mg/dL 74-106 [facility] Hematocrit Auto (Bld) [Volum e fraction]Ordered By: [facility] on 05-18-2024 Hematocrit (Bld) [Volume fraction] 39.7 % 37-47 [facility] Hemoglobin A1con 05-18-2024 HbA1c (Bld) [Mass fraction] 5.1 % Normal 3.8-5.6 [facility] Comment on above: Order Comment: Order Date: 04/06/24Order Info: [id number] - A1C Result Comment: Norm al < 5.7 % Prediabetic 5.7 - 6.4 % Diabetic >or= 6.5 % Please note range changes. Performed By: #### L 501.9520, L500.4050, L501.9985, L506.1000, L500.4100, L100.0100 ####[facility] [address] [place], [address] Hemoglobin A1c percentageOrd ered By: Mary Johnske on 05-18-2024 HbA1c (Bld) [Mass fraction] 5.1 % 3.8-5.6 [facility] Comment on above: Normal < 5.7 % Predi abetic 5.7 - 6.4 % Diabetic >or= 6.5 % Please note range changes. Hemoglobin measurementOrdere d By: Mary Luz on 05-18-2024 Hemoglobin (Bld) [Mass/Vol] 13.0 g/dL 12.0-15.0 [facility] High density lipoprotein (HD L) measurementOrdered By: [facility] Lu[facility] on 05-18-2024 Cholesterol in HDL [Mass/Vol] 62 mg/dL >40 [facility] Comment on above: The drugs N-Acetylcy steine and Metamizole may falsely depress this assay. Reference Range HDL <40 mg/dL Low HDL Cholesterol HDL >or= 60 mg/dL High HDL Cholesterol Immature granulocytes/100 WB C Auto (Bld)Ordered By: Mary Escobar on 05-18-2024 Immature granulocytes/100 WBC (Bld) 0.300 % 0.0-0.9 [facility] Comment on above: IG% - Immature Granu locytes (promyelocytes, myelocytes and metamyelocytes) > 1% indicates that a LEFT SHIFT is Present. Laboratory - Chemistry and C hemistry - challengeOrdered By: Rodolorrie Escobar on 05-18-2024 AST [Catalytic activity/Vol] 18 U/L 15-37 [facility] Lipid Profileon 05-18-2024 Cholesterol [Mass/Vol] 124 mg/dL Normal 200 [facility] Comment on above: Order Comment: Order Date: 04/06/24Order Info: [id number] - CMPOrder Info: [id number] - LIPIDOrder Info: [id number] - TSH Result Comment: <200 mg/dL Desirable 200-240 mg/dL Borderline >240 mg/dL High Risk Performed By: #### L 501.9520, L500.4050, L501.9985, L506.1000, L500.4100, L100.0100 ####[facility] [address] [place], [address] Cholesterol in HDL [Mass/Vol] 62 mg/dL Normal [facility] Comment on above: Order Comment: Order Date: 04/06/24Order Info: [id number] - CMPOrder Info: [id number] - LIPIDOrder Info: 3 - TSH Result Comment: The drugs N-Acetylcysteine and Metamizole may falselydepress this assay. Reference Range HDL <40 mg/dL Low HDL Cholesterol HDL >or= 60 mg/dL High HDL Cholesterol Performed By: #### L 501.9520, L500.4050, L501.9985, L506.1000, L500.4100, L100.0100 ####[facility] [address] [place], [address] Cholesterol in LDL [Mass/Vol] 53 mg/dL Normal 0-130 [facility] Comment on above: Order Comment: Order Date: 04/06/24Order Info: [id number] - CMPOrder Info: - LIPIDOrder Info: [id number] - TSH Performed By: #### L 501.9520, L500.4050, L501.9985, L506.1000, L500.4100, L100.0100 ####[facility] [address] [place], [address] Cholesterol in VLDL [Mass/Vol] 9 mg/dL Normal 5-40 [facility] Comment on above: Order Comment: Order Date: 04/06/24Order Info: [id number] - CMPOrder Info: [id number] - LIPIDOrder Info: [id number] - TSH Performed By: #### L 501.9520, L500.4050, L501.9985, L506.1000, L500.4100, L100.0100 ####[facility] [address] [place], [address] Triglyceride [Mass/Vol] 47 mg/dL Normal [facility] Comment on above: Order Comment: Order Date: 04/06/24Order Info: [id number] - CMPOrder Info: [id number] - LIPIDOrder Info: [id number] - TSH Result Comment: The drugs N-Acetylcysteine and Metamizole may falselydepress this assay.Serum Triglycerides Reference Interval Normal <150 mg/dL Borderline high 150 - 199 mg/dL High 200 - 499 mg/dL Very High > or = 500 mg/dL Performed By: #### L 501.9520, L500.4050, L501.9985, L506.1000, L500.4100, L100.0100 ####[facility] [address] [place], [address] Low density lipoprotein (LDL ) cholesterol measurementOrdered By: Mary Escobar on 05-18-2024 Cholesterol in LDL [Mass/Vol] 53 mg/dL 0-130 [facility] Lymphocytes Auto (Unsp spec) [#/Vol]Ordered By: Mary Luz on 05-18-2024 Lymphocytes (Bld) [#/Vol] 2.24 10*3/uL 0.83-4.51 [facility] Lymphocytes/100 WBC Auto (Un sp spec)Ordered By: Mary Escobar on 05-18-2024 Lymphocytes/100 WBC (Bld) 29.7 % 19-41 [facility] MCV (mean corpuscular volume ) determinationOrdered By: Mary Escobar on 05-18-2024 MCV (RBC) [Entitic vol] 83.2 fL 81-99 [facility] Mean corpuscular hemoglobin (MCH) determinationOrdered By: Mary Luz on 05-18-2024 MCH (RBC) [Entitic mass] 27.3 pg 27.0-32.0 [facility] Mean corpuscular hemoglobin concentration (MCHC) determinationOrdered By: [facility] on 05-18-2024 MCHC (RBC) [Mass/Vol] 32.7 g/dL 32-36 [facility] Mean platelet volume determi nationOrdered By: [facility] Escobar on 05-18-2024 Platelet mean volume (Bld) [Entitic vol] 10.1 fL 6.2-12.0 [facility] Monocyte percentageOrdered B y: Mary Escobar on 05-18-2024 Monocytes/100 WBC (Bld) 4.5 % 0-10 [facility] Neutrophil percentageOrdered By: Mary Escobar on 05-18-2024 Neutrophils/100 WBC (Bld) 62.2 % 47-70 [facility] Nucleated red blood cell per centageOrdered By: Mary Escobar on 05-18-2024 Nucleated RBC/100 WBC (Bld) [Ratio] 0 % 0-5 [facility] Platelet countOrdered By: Taco Escobar on 05-18-2024 Platelets (Bld) [#/Vol] 290 10*3/uL 150-450 [facility] Potassium measurementOrdered By: Mary Escobar on 05-18-2024 Potassium [Moles/Vol] 4.1 mmol/L 3.5-5.1 [facility] RBC Auto (Bld) [#/Vol]Ordere d By: Mary Escobar on 05-18-2024 RBC (Bld) [#/Vol] 4.77 10*6/uL 4.2-5.4 [facility] Serum anion gap measurementO rdered By: Mary Escobar on 05-18-2024 Anion gap [Moles/Vol] 5 mmol/L 5-15 [facility] Serum globulin measurementOr dered By: Mary Escobar on 05-18-2024 Globulin (S) [Mass/Vol] 3.4 g/dL 2.2-4.2 [facility] Serum or plasma alanine barton otransferase (ALT) measurementOrdered By: Mary Escobar on 05-18-2024 ALT [Catalytic activity/Vol] 29 U/L 13-56 [facility] Serum or plasma albumin chris urement (mass/volume)Ordered By: Mary Escobar on 05-18-2024 Albumin [Mass/Vol] 3.6 g/dL 3.2-5.0 [facility] Serum or plasma alkaline saeed sphatase measurementOrdered By: Mary Escobar on 05-18-2024 ALP [Catalytic activity/Vol] 84 U/L 45-117 [facility] Serum or plasma calcium chris urement (mass/volume)Ordered By: Mary Escobar on 05-18-2024 Calcium [Mass/Vol] 9.6 mg/dL 8.5-10.1 [facility] Serum or plasma cholesterol measurement (mass/volume)Ordered By: Mary Escobar on 05-18-2024 Cholesterol [Mass/Vol] 124 mg/dL <200 [facility] Comment on above: <200 mg/dL Desirable 200-240 mg/dL Borderline >240 mg/dL High Risk Serum or plasma creatinine m easurement (mass/volume)Ordered By: Mary Escobar on 05-18-2024 Creatinine [Mass/Vol] 0.50 mg/dL Low 0.55-1.02 [facility] Comment on above: The validity of the calculated GFR & GFRAA in patients over 70 years has not been determined. Clinical correlation is essential. Serum or plasma urea nitroge n measurement (mass/volume)Ordered By: Mary Escobar on 05-18-2024 Urea nitrogen [Mass/Vol] 11 mg/dL 7- [facility] Sodium levelOrdered By: Rodo Escobar on 05-18-2024 Sodium [Moles/Vol] 139 mmol/L 136-145 [facility] TSH QnOrdered By: Mary vazquez on 05-18-2024 Thyroid Stimulating Hormone (TSH) 0.958 uIU/mL 0.358-3.740 [facility] Thyroid Stim Hormone (TSH)on 05-18-2024 TSH 0.958 uIU/mL Normal 0.358-3.740 [facility] Comment on above: Order Comment: Order Date: 04/06/24Order Info: [id number] - CMPOrder Info: [id number] - LIPIDOrder Info: [id number] - TSH Performed By: #### L 501.9520, L500.4050, L501.9985, L506.1000, L500.4100, L100.0100 ####[facility] [address] [place], [address] Total proteinOrdered By: Bina Escobar on 05-18-2024 Protein [Mass/Vol] 7.0 g/dL 6.4-8.2 [facility] Triglycerides measurementOrd ered By: Mary Escobar on 05-18-2024 Triglyceride [Mass/Vol] 47 mg/dL <199 [facility] Comment on above: The drugs N-Acetylcy steine and Metamizole may falsely depress this assay.Serum Triglycerides Reference Interval Normal <150 mg/dL Borderline high 150 - 199 mg/dL High 200 - 499 mg/dL Very High > or = 500 mg/dL Very low density lipoprotein (VLDL) cholesterol measurementOrdered By: Mary Escobar on 05-18-2024 VLDL Cholesterol 9 mg/dL 5-40 [facility] Vitamin D,25 Hydroxyon 05-18 Vitamin D 25-OH 32.7 ng/mL Normal [facility] Comment on above: Order Comment: Order Date: 04/06/24Order Info: [id number] - [id number] Result Comment: Krystina min D 25(OH) Status Range Deficiency <20 ng/mL (50nmol/L) Insufficiency 20 - 30 ng/mL (50 - 75 nmol/L) Sufficiency 30 - 100 ng/mL (75 - 250 nmol/L) Toxicity >100 ng/mL (>250 nmol/L) Performed By: #### L 501.9520, L500.4050, L501.9985, L506.1000, L500.4100, L100.0100 ####[facility] [address] [place], [address] White blood cell (WBC) count Ordered By: Mary Escobar on 05-18-2024 WBC (Bld) [#/Vol] 7.5 10*3/uL 4.4-11.0 [facility] 36on 03-26-2024 36 Last office visit: 10/24/23 Next office visit: no follow up, was supposed to come back 11/21/23 [facility] 36 Last office visit: 10/24/23 Next office visit: none- per ANN MARIE follow up 4 weeks ( 11/21/23) [facility] 36on 03-05-2024 36 Please schedule this patient for first available appointment with any provider. Patient needs to be seen soonest. Sinai Phipps MD 03/05/2024 11:54 PM [facility] 36on 11-22-2023 36 Medication changed t o Zoloft at last office visit. Lexapro discontinued. Requested Prescriptions Refused Prescriptions Disp Refills escitalopram (Lexapro) 10 MG tablet [Pharmacy Med Name: ESCITALOPRAM 10 MG TABLET] 90 tablet 11 Sig: TAKE 1 TABLET BY MOUTH EVERY DAY Diagnosis: 1. Anxiety disorder, unspecified Kartik Adair MD 2:13 PM 11/22/23 [facility] Office Visiton 10-24-2023 Follow-up visit [id number] Casimiro Liu 1980 F Date Provider Department Center 10/24/2023 [id number] HODGSON [facility] FAMILY P None Chart Close Cosign Accepted by: CHANEL LABOY[LNOVAK] Chart Close Cosign Accepted on: TueOctober 25, 2023 9:33 AM Family History Problem Relation Age of Onset No Known Problems Sister Heart disease Maternal Grandfather No Known Problems Father No Known Problems Brother No Known Problems Mother Family Status - Relation Status Age at Sister Alive Maternal Grandfather Father Brother Alive Mother Alive Level of Service:56863 [place] OFFICE/OUTPATIENT ESTABLISHED LOW [facility] 20 MIN Reason for Visit and Comments: Annual Exam [83] - Check up Normal [facility] PATINSon 10-24-2023 PATINS Cognitive behavioral therapy for insomnia or sleep issues, please inquire if your therapist can do this. Normal [facility] Progress Noteon 10-24-2023 Progress Note Chronic issue, uncontrolled, subsequent encounter. Will try zoloft, had success with this in the past. Advised continue with therapy, is established with a therapist - inquire if they can do CBT for sleep issues. May also need to explore possible DMITRY due to sleep issues as states above. Normal [facility] Progress Note Chronic issue, uncontrolled, subsequent encounter. Pt has [...] - increase walking, DASH, low salt diet. Normal [facility] Progress Note [facility] [address] [facility] [address] Dept: [phone] Dept Loc: [phone] Visit type: Established patient Reason for Visit: [...] BP (!) 170/100 Pulse 88 Temp 36.2 ?C (97.2 ?F) (Temporal) Ht 5' 4 (1.626 m) Wt 232 lb 12.8 oz (106 kg) LMP 10/24/2023 BMI 39.96 kg/m? Physical Exam Vitals and nursing note reviewed. [...] alert. Data Reviewed and Summarized Labs: Imaging/Testing: NURA HODGSON MD [facility] Progress Note Type: INDIRECT I have discussed the care of this patient with the resident . I have reviewed the med list,problem list and history. I have reviewed the note which reflects the information we discussed and agree with the assessment and plan Brief summary of history: and additional hogan elements of the treatment plan include new dx htn-working on issues but started meds [facility] Progress Note Pt asked if they hav e been to specialist,been in ER /hospitalized or had testing since last visit. No [facility] Progress Note Patient was able to ambulate safely to the examination room. Provider was not notified of possible fall risk [facility] 36on 12-12-2023 36 Noted, thank you. Ag ree with plan to be reevaluated. Sounds like she will go to the ED or a today. Would suggest covid testing herself again if not already done so NURA HODGSON MD Family Medicine PGY-3 05/31/23 4:03 PM [facility] 36 S: the patient is calling the [facility] about pneumonia B: 05/17/2023 minute clinic [...] She states she will go to the [place] ED vs returning to for this. She will call back if she has continued or worsening symptoms. Reason for Disposition Patient sounds very sick or weak to the triager Protocols used: Pneumonia Follow-up [id number] Normal [facility] BASIC METABOLIC PANELon 05-20 Anion gap [Moles/Vol] 10 mmol/L Normal 3-13 [facility] Comment on above: Performed By: #### L AB747, [id number], LAB15 #### Medication Aide: FELIX FROST ([id number]) [facility] ([facility]) [address] Calcium [Mass/Vol] 9.6 mg/dL Normal 8.4-10.4 [facility] Comment on above: Performed By: #### L AB747, [id number], LAB15 #### Medication Aide: FELIX FROST ([id number]) [facility] ([facility]) [address] Chloride [Moles/Vol] 100 mmol/L Normal 98-107 [facility] Comment on above: Performed By: #### L AB747, [id number], LAB15 #### Medication Aide: FELIX FROST ([id number]) [facility] ([facility]) [address] CO2 [Moles/Vol] 27 mmol/L Normal 22-30 [facility] Comment on above: Performed By: #### L AB747, [id number], LAB15 #### Medication Aide: FELIX FROST ([id number]) [facility] (HLAB) [address] Creatinine [Mass/Vol] 0.61 mg/dL Normal 0.52-1.04 [facility] Comment on above: Performed By: #### L AB747, [id number], LAB15 #### Medication Aide: FELIX FROST ([id number]) [facility] [address] GLOMERULAR FILTRATION RATE ML/MIN/1.73 SQ M.PREDICTED >90.0 Normal >60.0 [facility] Comment on above: Result Comment: Calc ulation based on the Chronic Kidney Disease Epidemiology Collaboration (CKD-EPI) equation refit without adjustment for race Performed By: #### L AB747, CEE104, LAB15 #### Medication Aide: FELIX FROST ([id number]) [facility] [address] Glucose [Mass/Vol] 114 mg/dL High 70-100 [facility] Comment on above: Performed By: #### L AB747, WJD040, LAB15 #### Medication Aide: FELIX FROST ([id number]) [facility] ([facility] [address] [place] [address] [place] Potassium [Moles/Vol] 4.1 mmol/L Normal 3.5-5.1 [facility] Comment on above: Performed By: #### L AB747, WBO151, LAB15 #### Medication Aide: FELIX FROST ([id number]) [facility] ([facility]) [address] Sodium [Moles/Vol] 137 mmol/L Normal 135-145 [facility] Comment on above: Performed By: #### L AB747, [id number], LAB15 #### Medication Aide: FELIX FROST ([id number]) [facility] [place] ([facility]) [address] Urea nitrogen [Mass/Vol] 10 mg/dL Normal 7-17 [facility] Comment on above: Performed By: #### L AB747, [id number], LAB15 #### Medication Aide: FELIX FROST ([id number]) [facility] [place] ([facility]) [address] Basic metabolic 1998 panelon 05-31-2023 Anion gap [Moles/Vol] 10 mmol/L 3 - 13 mmol/L [facility] Calcium [Mass/Vol] 9.6 mg/dL 8.4 - 10. 4 mg/dL [facility] Chloride [Moles/Vol] 100 mmol/L 98 - 10 7 mmol/L [facility] CO2 [Moles/Vol] 27 mmol/L 22 - 30 mmol/L [facility] Creatinine [Mass/Vol] 0.61 mg/dL 0.52 - 1.04 mg/dL [facility] GFR/1.73 sq M.predicted MDRD (S/P/Bld) [Vol rate/Area] - PINF [facility] Comment on above: Calculation based on the Chronic Kidney Disease Epidemiology Collaboration (CKD-EPI) equation refit without adjustment for race Glucose [Mass/Vol] 114 mg/dL High 70 - 100 mg/dL [facility] Interpretation and review of laboratory results Abnormal [facility] Potassium [Moles/Vol] 4.1 mmol/L 3.5 - 5.1 mmol/L [facility] Sodium [Moles/Vol] 137 mmol/L 135 - 145 mmol/L [facility] Urea nitrogen [Mass/Vol] 10 mg/dL 7 - 17 mg/dL [facility] CBC (HEMOGRAM)on 05-31-2023 Erythrocyte distribution width (RBC) [Ratio] 15.0 % High 11.5-14.5 [facility] Comment on above: Performed By: #### L AB294 ####Medication Aide: FELIX FROST ([id number])[facility] [place] ([facility])[address] [place] [address] ERYTHROCYTE MEAN CORPUSCULAR HEMOGLOBIN CONCENTRATION (G/DL) BY AUTOMATED 33.4 % Normal 32.0-36.0 [facility] Comment on above: Performed By: #### L AB294 ####Medication Aide: FELIX FROST ([id number])[facility] [place] (SB[facility])[address] Hematocrit (Bld) [Volume fraction] 39.1 % Normal 35.0-47.0 [facility] Comment on above: Performed By: #### L AB294 ####Medication Aide: FELIX FROST ([id number])[facility] ([facility])[address] [place] [address] Hemoglobin (Bld) [Mass/Vol] 13.0 g/dL Normal 11.7-16.0 [facility] Comment on above: Performed By: #### L AB294 ####Medication Aide: FELIX FROST ([id number])[facility] ([facility])[address] [place] [address] MCH (RBC) [Entitic mass] 27.2 pg Normal 26.0-34.0 [facility] Comment on above: Performed By: #### L AB294 ####Medication Aide: FELIX FROST ([id number])[facility] [place] ([facility])[address] [place] [address] MCV (RBC) [Entitic vol] 81.7 fL Normal 80.0-98.0 [facility] Comment on above: Performed By: #### L AB294 ####Medication Aide: FELIX FROST ([id number])[facility] (SB[facility])[address] Platelet mean volume (Bld) [Entitic vol] 8.1 fL Normal 7.4-12.4 [facility] Comment on above: Performed By: #### L AB294 ####Medication Aide: FELIX FROST ([id number])[facility] ([facility])[address] Platelets (Bld) [#/Vol] 260 10*3/uL Normal 140-440 [facility] Comment on above: Performed By: #### L AB294 ####Medication Aide: FELIX FROST ([id number])[facility] ([facility])[address] RBC (Bld) [#/Vol] 4.78 10*6/uL Normal 3.8-5.20 [facility] Comment on above: Performed By: #### L AB294 ####Medication Aide: FELIX FROST ([id number])[facility] ([facility])[address] WBC (Bld) [#/Vol] 6.9 10*3/uL Normal 3.6-10.7 [facility] Comment on above: Performed By: #### L AB294 ####Medication Aide: FELIX FROST ([id number])[facility] ([facility])[address] CBC panel Auto (Bld)Ordered By: Marielos Baxter on 05-31-2023 Erythrocyte distribution width (RBC) [Ratio] 15.0 % High 11.5 - 14.5 % [facility] Hematocrit (Bld) [Volume fraction] 39.1 % 35.0 - 47.0 % [facility] Hemoglobin (Bld) [Mass/Vol] 13.0 g/dL 11.7 - 16.0 g/dL [facility] Interpretation and review of laboratory results Abnormal [facility] MCH (RBC) [Entitic mass] 27.2 pg 26.0 - 34.0 pg [facility] MCHC (RBC) [Mass/Vol] 33.4 % 32.0 - 36.0 % [facility] MCV (RBC) [Entitic vol] 81.7 fL 80.0 - 98.0 fL [facility] Platelet mean volume (Bld) [Entitic vol] 8.1 fL 7.4 - 12.4 fL [facility] Platelets (Bld) [#/Vol] 260 10*3/uL 140 - 440 10*3/uL [facility] RBC (Bld) [#/Vol] 4.78 10*6/uL 3.8 - 5.20 10*6/uL [facility] WBC (Bld) [#/Vol] 6.9 10*3/uL 3.6 - 10.7 10*3/uL [facility] COMPLETE URINALYSISon 2022 AMORPHOUS CRYSTALS (#/HPF) IN URINE Few Abnormal Negative [facility] Comment on above: Performed By: #### L AB347 ####Medication Aide: FELIX FROST ([id number])[facility]ITAL[facility] ([facility])[address] [place] [address] BACTERIA (#/HPF) IN URINE Few Abnormal Negative [facility] Comment on above: Performed By: #### L AB347 ####Medication Aide: FELIX FROST ([id number])[facility] ([facility])[address] BILIRUBIN, TOTAL PRESENCE IN URINE Negative Normal Negative [facility] Comment on above: Performed By: #### L AB347 ####Medication Aide: FELIX FROST ([id number])[facility] ([facility])[address] Clarity (U) Slightly Cloudy Abnormal Clear [facility] Comment on above: Performed By: #### L AB347 ####Medication Aide: FELIX FROST ([id number])[facility] ([facility])[address] Color (U) Yellow Normal Lt. Yellow [facility] Comment on above: Performed By: #### L AB347 ####Medication Aide: FELIX FROST ([id number])[facility] [place] ([facility])[address] GLUCOSE (MG/DL) IN URINE Normal Normal Normal (<70) [facility] Comment on above: Performed By: #### L AB347 ####Medication Aide: FELIX FROTS ([id number])[facility] [place] ([facility])[address] HEMOGLOBIN PRESENCE IN URINE Negative Normal Negative [facility] Comment on above: Performed By: #### L AB347 ####Medication Aide: FELIX FROST ([id number])[facility] ([facility])[address] Ketones Ql (U) Negative Normal Negative [facility] Comment on above: Performed By: #### L AB347 ####Medication Aide: FELIX FROST ([id number])[facility] (SB[facility])[address] LEUKOCYTE ESTERASE PRESENCE IN URINE BY TEST STRIP Negative Normal Negative [facility] Comment on above: Performed By: #### L AB347 ####Medication Aide: FELIX FROST ([id number])[facility] (SBHLAB)[address] [place] [address] [place] MUCUS (#/LPF) IN URINE SEDIMENT Few Normal Negative [facility] Comment on above: Performed By: #### L AB347 ####Medication Aide: FELIX FROST ([id number])[facility] ([facility])[address] [place] [address] [place] NITRITE PRESENCE IN URINE Negative Normal Negative [facility] Comment on above: Performed By: #### L AB347 ####Medication Aide: FELIX FROST ([id number])[facility] [place] ([facility])[address] pH (U) 7.5 [pH] Normal 5.0-8.0 [facility] Comment on above: Performed By: #### L AB347 ####Medication Aide: FELIX FROST ([id number])[facility] [place] ([facility])[address] Protein (U) [Mass/Vol] 20 mg/dL Abnormal Negative [facility] Comment on above: Performed By: #### L AB347 ####Medication Aide: FELIX FROST ([id number])[facility] [place] ([facility])[address] RBC (#/HPF) IN URINE SEDIMENT 0-2 Normal 0-2 [facility] Comment on above: Performed By: #### L AB347 ####Medication Aide: FELIX FROST ([id number])[facility] [place] ([facility])[address] Specific gravity (U) [Rel density] 1.022 Normal 1.005-1.030 [facility] Comment on above: Performed By: #### L AB347 ####Medication Aide: FELIX FROST ([id number])[facility] [place] ([facility])[address] SQUAMOUS EPITHELIAL CELLS (#/HPF) IN URINE SEDIMENT 11-25 Abnormal 3-5 [facility] Comment on above: Performed By: #### L AB347 ####Medication Aide: FELIX FROST ([id number])[facility] [place] ([facility])[address] UROBILINOGEN (MG/DL) IN URINE 2 mg/dL Abnormal Normal (0-1) [facility] Comment on above: Performed By: #### L AB347 ####Medication Aide: FELIX FROST ([id number])[facility] [place] ([facility])[address] [place] [address] [place] WBC (LEUKOCYTE) (#/HPF) IN URINE SEDIMENT 0-2 Normal 0-5 [facility] Comment on above: Performed By: #### L AB347 ####Medication Aide: FELIX FROST ([id number])[facility] [place] ([facility])[address] [place] [address] [place] D-DIMER,QUANTITATIVEon 05-31 D-DIMER, INNOVANCE 0.62 mg/L High <0.50 [facility] Comment on above: Result Comment: ERA Lund COMMENTS: Innovance D-Dimer values of <0.50 mg/L FEU can be used in combination with a pre-test probability model (e.g. Well's) to exclude pulmonary embolism (PE) disease, as well as an aid in the diagnosis of deep vein thrombosis (DVT). Performed By: #### L AB313 ####Medication Aide: FELIX FROST ([id number])[facility] (SB[facility])[address] [place] [address] ECG 12-LEADon 05-31-2023 ECG 12-LEAD IMPRESSION: SINUS RHYTHM PROBABLE LEFT ATRIAL ABNORMALITY Electronically Signed On 05-31-2023 21:11:28 EST by Romina Adrian Normal [facility] ED Nursing Noteon 05-31-2023 ED Nursing Note Pt was seen at a few weeks ago and diagnosed with pneumonia. Pt was started on oral atb and steroids. States she started to feel better and then Tuesday her pain/cough came back Normal [facility] ED Provider Noteon ED Provider Note EMERGENCY DEPARTMENT ENCOUNTER Pt Name: Casimiro [...] 1245] Temp Heart Rate Resp BP 36.9 ?C (98.5 ?F) 97 20 (!) 173/105 SpO2 Temp Source [...] No murmur heard. Pulmonary: Effort: Pulmonary effort (more content not included)... Normal [facility] Fibrin D-dimer FEU (PPP) [Ma ss/Vol]on 05-31-2023 Interpretation and review of laboratory results Abnormal [facility] D-Dimer va lues of <0.50 mg/L FEU can be used in combination with a pre-test probability model (e.g. Well's) to exclude pulmonary embolism (PE) disease, as well as an aid in the diagnosis of deep vein thrombosis (DVT). [facility] HCG QUALITATIVE URINEon 05-20 Beta HCG ( test) Ql (U) Negative Normal Negative [facility] Comment on above: Result Comment: Plea note: Very dilute urine specimens, as indicated by a low specific gravity, may not contain textiles sales representative levels of hCG. If is still suspected, a first morning urine specimen should be collected 48 hours later and tested. ORDER COMMENTS: is the most common reason for HCG in urine, although choriocarcinoma, hydatidiform mole, and certain nontrophoblastic malignancies also result in detectable urinary HCG levels. Sensitivity = 20mIU/mL. Performed By: #### L [id number] ####Medication Aide: FELIX FROST ([id number])[facility])[address] HCG QUANTITATIVE BLOODon HCG QUANTITATIVE <2 Normal Females <=5 [facility] [employer] [facility] Comment on above: Result Comment: ERA Lund COMMENTS: Values in should double every 2 to [...] or gestational trophoblastic disease. Performed By: #### L AB747, [id number], LAB15 ####Medication Aide: FELIX FROST ([id number])[facility]ITAL[facility] (SB[facility]AB)[address] Laboratory - Chemistry and C hemistry - challengeon 05-31-2023 HCG.beta subunit Qn Females <=5 mIU/mL [facility] Troponin I.cardiac [Mass/Vol] ng/mL NINF - 0.034 ng/mL [facility] Laboratory - Chemistry and C hemistry - challengeOrdered By: Jodie Valencia on 05-31-2023 Beta HCG ( test) Ql Negative Negative [facility] Comment on above: Please note: Very di lute urine specimens, as indicated by a low specific gravity, may not contain textiles sales representative levels of hCG. If is still suspected, a first morning urine specimen should be collected 48 hours later and tested. Beta HCG ( test) Ql (U) is the most common reason for HCG in urine, although choriocarcinoma, hydatidiform mole, and certain nontrophoblastic malignancies also result in detectable urinary HCG levels. Sensitivity = 20mIU/mL. [facility] - Coagulationon 1 08-01-2022 Fibrin D-dimer FEU (PPP) [Mass/Vol] 0.62 mg/L High NINF - 0.50 mg/L [facility] - Microbiology an d Antimicrobial susceptibilityon 05-31-2023 FLUAV RNA SOO+probe Ql (Resp) Detected Abnormal Not Detected [facility] FLUBV RNA SOO+probe Ql (Resp) Not detected Not Detected [facility] RSV RNA SOO+probe Ql (Resp) Not detected Not Detected [facility] SARS-CoV-2 (COVID-19) RNA SOO+probe Ql (Resp) Not detected Not Detected [facility] SARS-CoV-2 (COVID-19) RNA SOO+probe Ql (Unsp spec) Methodology: real-time, RT-PCR The SARS-CoV-2, Flu A/B, and RSV Combo assay is intended for in vitro diagnostic use under the FDA Emergency Use Authorization (EUA). This test has not been FDA cleared or approved. In compliance with this authorization, please visit www.fda.gov/media/828514 /download or www.fda.gov/media/716700 /download to access the applicable information sheets. [facility] No Panel InformationOrdered By: Tyson Adrian on 05-31-2023 P [place] 36 degrees [employer] Phone: OK Interval 124 ms [employer] Phone: QRS [place] 25 degrees [employer] Phone: QRSD Interval 84 ms [employer] Phone: [phone] QT Interval 364 ms [facility] Work Phone: QTC Interval 436 ms [employer] Phone: T Wave [place] 43 degrees [facility] Work Phone: [facility] Work Phone: No Panel Informationon 05-31 SINUS RHYTHM PROBABLE LEFT ATRIAL ABNORMALITY Electronically Signed On 05-31-2023 21:11:28 EST by Tyson Boogie, DO - 05/31/2023 IMPRESSION: SINUS RHYTHM PROBABLE LEFT ATRIAL ABNORMALITY Electronically Signed On 05-31-2023 21:11:28 EST by Romina Adrian [facility] Values in should double every 2 to [...] or monitor tumors or gestational trophoblastic disease. [employer] [facility] No Panel InformationOrdered By: Jodie Valencia on 05-31-2023 [employer] [facility] SARS-COV-2, FLU A/B, AND RSV COMBOon 05-31-2023 SARS-CoV-2 (COVID-19) RNA SOO+probe Ql (Unsp spec) SARS-COV-2 Reference Not Detected Not Detected RESPIRATORY SYNCYTIAL VIRUS Reference Not Detected Not Detected INFLUENZA A (CEPHEID) (A) Reference Detected Not Detected INFLUENZA B (CEPHEID) Reference Not Detected Not Detected ORDER COMMENTS: Methodology: real-time, RT-PCR The SARS-CoV-2, Flu A/B, and RSV Combo assay is intended for in vitro diagnostic use under the FDA Emergency Use Authorization (EUA). This test has not been FDA cleared or approved. In compliance with this authorization, please visit www.fda.gov/media/807820 /download or www.fda.gov/media/604827 /download to access the applicable information sheets. Normal [facility] Comment on above: Performed By: #### L [id number] #### Medication Aide: FELIX FROST ([id number]) [facility] ([facility]) [address] [place] [address] SARS-CoV-2, Flu A/B, and RSV Comboon 05-31-2023 Interpretation and review of laboratory results Abnormal [facility] TROPONIN Ion 05-31-2023 Troponin I.cardiac [Mass/Vol] ng/mL Normal <0.034 [facility] Comment on above: Result Comment: ERA Lund COMMENTS: Patients with high levels of Biotin oral intake (ie >5 mg/day) may have falsely decreased Troponin levels. Performed By: #### L AB747, [id number], LAB15 ####Medication Aide: FELIX FROST ([id number])[facility] ([facility])[address] [place] [address] Troponin I.cardiac [Mass/Vol ]on 05-31-2023 Interpretation and review of laboratory results Normal [facility] Patients with high levels of Biotin oral intake (ie >5 mg/day) may have falsely decreased Troponin levels. [facility] Urinalysis complete panel (U )on 05-31-2023 Amorphous Crystals, Urine Few Abnormal Negative /HPF [facility] Bacteria LM.HPF (Urine sed) [#/Area] Few Abnormal Negative /HPF [facility] Bilirubin Ql (U) Negative Negative mg/dL [facility] Clarity (U) Slightly Cloudy Abnormal Clear [facility] Color (U) Yellow Lt. Yellow [facility] Epithelial cells.squamous LM.HPF (Urine sed) [#/Area] 11-25 Abnormal [facility] Glucose Ql (U) Normal Normal (<70) mg/dL [facility] Hemoglobin Ql (U) Negative Negative mg/dL [facility] Interpretation and review of laboratory results Abnormal [facility] Ketones (U) [Mass/Vol] Negative Negat hayden mg/dL [facility] Leukocyte esterase Test strip Ql (U) Negative Negative Dom/uL [facility] Mucus LM.HPF (Urine sed) [#/Area] Few Negative /LPF [facility] Nitrite Ql (U) Negative Negative [facility] pH (U) 7.5 [pH] 5.0 - 8.0 pH [facility] Protein (U) [Mass/Vol] 20 mg/dL Abnormal Negative [facility] RBC LM.HPF (Urine sed) [#/Area] 0-2 [facility] Specific gravity (U) [Rel density] 1.022 1.005 - 1.030 [facility] Urobilinogen (U) [Mass/Vol] 2 mg/dL Abnormal Normal (0-1) [facility] WBC LM.HPF (Urine sed) [#/Area] 0-2 [facility] Vital signsOrdered By: Delonte Adrian on 05-31-2023 Heart rate 86 /min bpm [facility] Work Phone: XR Chest 2 Viewson 3 No acute cardiopulmo nary abnormality. Report Dictated on Electronically Signed By: Jaclyn Little MD Electronically Signed Date/Time: 05/31/2023 1:51 PM [facility] [employer] Patient Name: CASIMIRO MCCARTY [facility] 1980 [id number] Exam Date/Time: 05/31/2023 13:23 Procedure: XR CHEST 2 VIEWS Ordering Provider: MORRISON DANIEL Reason For Exam: COUGH PA AND LATERAL CHEST CLINICAL INDICATION: COUGH TECHNIQUE: PA and Lateral chest COMPARISON: Chest radiograph from 04/11/2023 FINDINGS: The cardiac and mediastinal silhouettes are normal. No focal consolidation. There is no sizable pleural effusion. No evidence of a pneumothorax. The osseous structures are unremarkable. [facility] [employer] [facility] Jaclyn Little M D - 05/31/2023 Patient Name: CASIMIRO LIU : 1980 [id number] Exam Date/Time: 05/31/2023 13:23 Procedure: XR CHEST 2 VIEWS Ordering Provider: MORRISON DANIEL Reason For Exam: COUGH PA AND LATERAL CHEST CLINICAL INDICATION: COUGH TECHNIQUE: PA and Lateral chest COMPARISON: Chest radiograph from 04/11/2023 FINDINGS: The cardiac and mediastinal silhouettes are normal. No focal consolidation. There is no sizable pleural effusion. No evidence of a pneumothorax. The osseous structures are unremarkable. IMPRESSION: No acute cardiopulmonary abnormality. Report Dictated on Electronically Signed By: Jaclyn Little MD Electronically Signed Date/Time: 05/31/2023 1:51 PM EST [facility] Radiology Study observation (narrative) [facility] XR Chest 2 ViewsOrdered By: Jaclyn Little on 05-31-2023 [facility] [employer] Work Phone: Progress Noteon 04-15-2023 Progress Note Chart reviewed of ED follow up Seen in [place] ED on 04/11/23 Reason: headache, flu symptoms and COVID-19 Discharge instructions: Return to the ER with new or worsening symptoms including uncontrolled pain, fever, chills, chest pain, or shortness of breath. Follow up with your PCP for further evaluation and treatment as needed. Take Mucinex DM, Tylenol, and Ibuprofen for pain and fever control and Tessalon for cough. I am calling from NURA HODGSON MD's office, following up after your recent ED visit. Please call the office if your symptoms are worse and we can schedule a follow up appointment. If patient calls back, please assist with scheduling a ED follow up appointment. Normal [facility] COVID-19, Flu A/B, and RSV C omboon 04-11-2023 Interpretation and review of laboratory results Abnormal [facility] ED Provider Noteon ED Provider Note EMERGENCY DEPARTMENT ENCOUNTER Pt Name: Casimiro [...] 0857] Temp Heart Rate Resp BP 36.1 ?C (96.9 ?F) 87 18 (!) 190/114 SpO2 Temp Source Heart Rate Source Patient Position 98 % Temporal Monitor -- BP Location FiO2 (%) -- -- Physical Exam Vitals and nursing note reviewed. Constitutional: General: She is not in acute distress. Appearance: She is well-developed. Cardiovascular: Rate and Rhythm: Normal rate and regular rhythm. Heart sounds: No murmur heard. Pulmonary: Effort: Pulmonary effort is norm (more content not included)... Normal [facility] - Microbiology an d Antimicrobial susceptibilityon 04-11-2023 FLUAV RNA SOO+probe Ql (Resp) Not detected Not Detected [facility] FLUBV RNA SOO+probe Ql (Resp) Not detected Not Detected [facility] RSV RNA SOO+probe Ql (Resp) Not detected Not Detected [facility] SARS-CoV-2 (COVID-19) RNA SOO+probe Ql (Resp) Detected Abnormal Not Detected [facility] SARS-CoV-2 (COVID-19) RNA SOO+probe Ql (Unsp spec) Methodology: real-time, RT-PCR The SARS-CoV-2, Flu A/B, and RSV Combo assay is intended for in vitro diagnostic use under the FDA Emergency Use Authorization (EUA). This test has not been FDA cleared or approved. In compliance with this authorization, please visit www.fda.gov/media/341347 /download or www.HCDC.gov/media/106389 /download to access the applicable information sheets. [facility] SARS-COV-2, FLU A/B, AND RSV COMBOon 04-11-2023 SARS-CoV-2 (COVID-19) RNA OSO+probe Ql (Unsp spec) SARS-COV-2 (A) Reference Detected Not Detected RESPIRATORY SYNCYTIAL VIRUS Reference Not Detected Not Detected INFLUENZA A (CEPHEID) Reference Not Detected Not Detected INFLUENZA B (CEPHEID) Reference Not Detected Not Detected ORDER COMMENTS: Methodology: real-time, RT-PCR The SARS-CoV-2, Flu A/B, and RSV Combo assay is intended for in vitro diagnostic use under the FDA Emergency Use Authorization (EUA). This test has not been FDA cleared or approved. In compliance with this authorization, please visit www.HCDC.gov/media/537735 /download or www.HCDC.gov/media/273554 /download to access the applicable information sheets. Normal [facility] Comment on above: Performed By: #### L [id number] ####Medication Aide: FELIX FROST ([id number])[facility] ([facility] [place] [address] XR Chest Single viewon 04-11 1. Lines/Tubes/Devices/Hard mcknight: None. Please confirm position and function of [...] Electronically Signed Date/Time: 04/11/2023 9:50 AM EDT [facility] Patient Name: CASIMIRO MCCARTY : 1980 Exam Date/Time: 04/11/2023 09:31 Procedure: XR CHEST 1 VIEW Ordering Provider: MANN RACHEL Reason For Exam: cough EXAM TYPE: RADIOLOGIC EXAMINATION, CHEST, SINGLE VIEW FRONTAL (CXR SINGLE VIEW) EXAM DATE AND TIME: 04/11/2023 9:31 AM EDT INDICATION: Respiratory distress COMPARISON: 07/21/2021 TECHNIQUE: A single frontal view of the thorax was obtained and reviewed. Special views: None. [facility] Eric Brunner MD - 04/11/2023 Patient Name: CASIMIRO LIU : 1980 Exam Date/Time: 04/11/2023 09:31 Procedure: XR CHEST 1 VIEW Ordering Provider: MANN RACHEL Reason For Exam: cough EXAM TYPE: RADIOLOGIC EXAMINATION, CHEST, SINGLE VIEW FRONTAL (CXR SINGLE VIEW) EXAM DATE AND TIME: 04/11/2023 9:31 AM EDT INDICATION: Respiratory distress COMPARISON: 07/21/2021 TECHNIQUE: A single frontal view of the thorax was obtained and reviewed. Special views: None. IMPRESSION: 1. Lines/Tubes/Devices/Hard mcknight: None. Please confirm position and function of [...] Electronically Signed Date/Time: 04/11/2023 9:50 AM EDT [facility] Radiology Study observation (narrative) [facility] [employer] XR Chest Single viewOrdered By: Eric Brunner on 04-11-2023 [facility] [employer] Work Phone: Basic Metabolic Panelon 02-0 Anion gap [Moles/Vol] 9 mmol/L Normal 3-13 [facility] Comment on above: Performed By: #### H A1C2, ESR, CRP2 #### [facility] [address] [place] [address] #### ANA3 #### [facility] [address] [place] [address] Calcium [Mass/Vol] 10.1 mg/dL Normal 8.4-10.4 [facility] Comment on above: Performed By: #### H A1C2, ESR, CRP2 #### [facility] [address] [place] [address] #### ANA3 #### [place] [address] [place] [place] [address] CO2 [Moles/Vol] 28 mmol/L Normal 22-30 [facility] Comment on above: Performed By: #### H A1C2, ESR, CRP2 #### [facility] [address] [place] [address] #### ANA3 #### [place] [address] [place] [address] Glucose [Mass/Vol] 127 mg/dL High 70-100 [facility] Comment on above: Performed By: #### H A1C2, ESR, CRP2 #### [facility] [address] [place] [address] #### ANA3 #### [place] [address] [place] [place] [address] Urea nitrogen [Mass/Vol] 16 mg/dL Normal 9-20 [facility] Comment on above: Performed By: #### H A1C2, ESR, CRP2 #### [facility] [address] [place] [address] #### ANA3 #### [place] [address] [place] Creatinine [Mass/Vol] 0.63 mg/dL Normal 0.52-1.25 [facility] [employer] [facility] Comment on above: Performed By: #### H A1C2, ESR, CRP2 #### [facility] [address] [place] [address] #### ANA3 #### [facility] [address] [place], [place] eGFR OTHER > 90.0 Normal >60 [facility] Comment on above: Result Comment: KDIG O [...] By: #### H A1C2, ESR, CRP2 #### [facility] [address] [place] [address] #### ANA3 #### [facility] [address] [place], [place] GFR/1.73 sq M.predicted among blacks MDRD (S/P/Bld) [Vol rate/Area] mL/min/{1.73_m2} Normal >60 [facility] [employer] [facility] Comment on above: Performed By: #### H A1C2, ESR, CRP2 #### [facility] [address] [place] [address] #### ANA3 #### [facility] [employer] [facility] [address] [place], [place] Potassium [Moles/Vol] 3.8 mmol/L Normal 3.5-5.1 [facility] [employer] [facility] Comment on above: Performed By: #### H A1C2, ESR, CRP2 #### [facility] [address] [place] [address] #### ANA3 #### [facility] [address] [place] [address] Chloride [Moles/Vol] 98 mmol/L Normal 98-107 [facility] Comment on above: Performed By: #### H A1C2, ESR, CRP2 #### [facility] [address] [place] [address] #### ANA3 #### [facility] [address] [place] [address] Sodium [Moles/Vol] 135 mmol/L Normal 135-145 [facility] Comment on above: Performed By: #### H A1C2, ESR, CRP2 #### [facility] [address] [place] [address] #### ANA3 #### [place] [address] [place] [address] CR Chest Portableon 07-21-19 22 CR Chest Portable Patient Name: CASIMIRO MCCARTY Diagnostic Radiology ACCESSION EXAM DATE/TIME PROCEDURE ORDERING PROVIDER [id number] 07/21/2021 14:27 EST CR Chest Portable [id number] -NAKUL CASTRO CPT code 93008 Reason For Exam (CR Chest Portable) left [...] Transcribed Date and Time: 07/21/2021 2:43 Normal [facility] ED Provider Noteon ED Provider Note Emergency Department Encounter [facility] ED Patient: Casimiro Liu : [...] Luciana Monsivais DO Patient signed out to [facility] emergency medicine physician pending laboratory studies. If [...] the dictations but occasionally words are mis-transcribed.) Lcuiana Monsivais, [employer] Luciana DO Yodit 07/21/21 1542 [facility] ED Provider Note [facility] [place] EMERGENCY DEPARTMENT ENCOUNTER Pt Name: Casimiro Liu Birthdate 1980 Date of evaluation: 07/21/2021 Provider: Nakul Castro MD CHIEF COMPLAINT Chief Complaint Patient presents with ? Hypertension HISTORY OF PRESENT ILLNESS (Location/Symptom, Timing/Onset, Context/Setting, Quality, Duration, Modifying Factors, Severity) Note limiting factors. I wore a kn95 mask for the entirety of this encounter. Does this patient come from an ECF, SNF, Rehab, Shelter or other Congregate setting: no (If yes [...] ? Smoking status: Former Smoker Quit date: 2017 Years since quittin.0 ? Smokeless tobacco: Never [...] No Physic (more content not included)... Normal [facility] Hemogramon 07-21-2021 Erythrocyte distribution width (RBC) [Ratio] 14.0 % Normal 11.5-14.5 [facility] Comment on above: Performed By: #### H A1C2, ESR, CRP2 #### [address] [place] [address] #### ANA3 #### [address] Hematocrit (Bld) [Volume fraction] 43.0 % Normal 35.0-47.0 [facility] Comment on above: Performed By: #### H A1C2, ESR, CRP2 #### [facility] [address] [place] [address] #### ANA3 #### [address] Hemoglobin (Bld) [Mass/Vol] 14.1 g/dL Normal 11.7-16.0 [facility] Comment on above: Performed By: #### H A1C2, ESR, CRP2 #### [facility] [address] [place] [address] #### ANA3 #### [address] MCH (RBC) [Entitic mass] 27.9 pg Normal 26.0-34.0 [facility] Comment on above: Performed By: #### H A1C2, ESR, CRP2 #### [address] [place] [address] #### ANA3 #### [address] MCHC 32.7 % Normal 32.0-36.0 [facility] Comment on above: Performed By: #### H A1C2, ESR, CRP2 #### [facility] [address] [place] [address] #### ANA3 #### [facility] [address] [place] MCV (RBC) [Entitic vol] 85.2 fL Normal 79.0-98.0 [facility] Comment on above: Performed By: #### H A1C2, ESR, CRP2 #### [facility] [address] [place] [address] #### ANA3 #### [place] [address] [place] Platelet mean volume (Bld) [Entitic vol] 8.2 fL Normal 7.4-10.4 [facility] Comment on above: Performed By: #### H A1C2, ESR, CRP2 #### [facility] [address] [place] [address] #### ANA3 #### [place] [address] [address] [place] Platelets (Bld) [#/Vol] 414 10*3/uL Normal 140-440 [facility] Comment on above: Performed By: #### H A1C2, ESR, CRP2 #### [facility] [address] [place] [address] #### ANA3 #### [place] [address] [place] RBC (Bld) [#/Vol] 5.05 10*6/uL Normal 3.80-5.20 [facility] Comment on above: Performed By: #### H A1C2, ESR, CRP2 #### [facility] [address] [place] [address] #### ANA3 #### [place] [address] [place] WBC (Bld) [#/Vol] 13.3 10*3/uL High 3.6-10.7 [facility] Comment on above: Performed By: #### H A1C2, ESR, CRP2 #### [facility] [address] [place] [address] #### ANA3 #### [facility] [address] [place] [address] Troponin Ion 07-21-2021 Troponin I.cardiac [Mass/Vol] ng/mL Normal 0.000-0.034 [facility] Comment on above: Result Comment: . Performed By: #### H A1C2, ESR, CRP2 #### [facility] [address] [place] [address] #### ANA3 #### [facility] [address] [place] [address] CA 19-9on 07-05-2021 CA 19-9 30 U/mL Normal 0-37 [facility] Comment on above: Result Comment: INTE RPRETIVE [...] or absence of malignant disease. Performed By: Walk-in [address] [place] [address] Care Connector: Sofia Anderson MD Performed By: #### H EMDJustus CMP3M #### [facility] [address] [place] [address] Comp Panel with Mg Reflexon 07-04-2021 Calcium [Mass/Vol] 9.4 mg/dL Normal 8.4-10.4 [facility] Comment on above: Performed By: #### H EMDJustus CMP3M, MG3 #### [facility] [address] [place] [address] ALP [Catalytic activity/Vol] 55 U/L Normal 38-126 [facility] Comment on above: Performed By: #### H EMDF CMP3M, MG3 #### [facility] [address] [place] [address] ALT [Catalytic activity/Vol] 31 U/L Normal 0-34 [facility] Comment on above: Result Comment: The ALT test is performed by an updated assay method. Please note that the reference intervals have been changed and are now sex specific. Performed By: #### H EMDF, CMP3M, MG3 #### [facility] [address] [place] [address] Anion gap [Moles/Vol] 8 mmol/L Normal 3-13 [facility] Comment on above: Performed By: #### H EMDF, CMP3M, MG3 #### [facility] [address] [place] [address] AST [Catalytic activity/Vol] 44 U/L Normal 15-46 [facility] Comment on above: Performed By: #### H EMDF, CMP3M, MG3 #### [facility] [address] [place] [address] Bilirubin [Mass/Vol] 0.6 mg/dL Normal 0.2-1.3 [facility] Comment on above: Performed By: #### H EMDF, CMP3M, MG3 #### [facility] [address] [place] [address] CO2 [Moles/Vol] 29 mmol/L Normal 22-30 [facility] Comment on above: Performed By: #### H EMDF, CMP3M, MG3 #### [facility] [address] [place] [address] Creatinine [Mass/Vol] 0.57 mg/dL Normal 0.52-1.25 [facility] Comment on above: Performed By: #### H EMDF, CMP3M, MG3 #### [facility] [address] [place] [address] eGFR OTHER > 90.0 Normal >60 [facility] Comment on above: Result Comment: KDIG O [...] tubular creatinine secretion. Performed By: #### H EMDJustus CMP3M, MG3 #### [facility] [address] [place] [address] GFR/1.73 sq M.predicted among blacks MDRD (S/P/Bld) [Vol rate/Area] mL/min/{1.73_m2} Normal >60 [facility] Comment on above: Performed By: #### H EMDJustus, CMP3M, MG3 #### [facility] [address] [place] [address] Glucose [Mass/Vol] 99 mg/dL Normal 70-100 [facility] Comment on above: Performed By: #### H EMDJustus CMP3M, MG3 #### [facility] [address] [place] [address] Protein [Mass/Vol] 7.3 g/dL Normal 6.3-8.2 [facility] Comment on above: Performed By: #### H EMDF, CMP3M, MG3 #### [facility] [address] [place] [address] Urea nitrogen [Mass/Vol] 17 mg/dL Normal 9-20 [facility] Comment on above: Performed By: #### H EMDF, CMP3M, MG3 #### [facility] [address] [place] [address] Albumin [Mass/Vol] 4.2 g/dL Normal 3.5-5.0 [facility] Comment on above: Performed By: #### H EMDF, CMP3M, MG3 #### [facility] [address] [place] [address] Chloride [Moles/Vol] 100 mmol/L Normal 98-107 [facility] Comment on above: Performed By: #### H EMDF, CMP3M, MG3 #### [facility] [address] [place] [address] Potassium [Moles/Vol] 3.5 mmol/L Normal 3.5-5.1 [facility] Comment on above: Performed By: #### H EMDF, CMP3M, MG3 #### [facility] [address] [place] [address] Sodium [Moles/Vol] 137 mmol/L Normal 135-145 [facility] Comment on above: Performed By: #### H EMDF, CMP3M, MG3 #### [facility] [address] [place] [address] Hemogram w/ Autodiffon 07-04 Abs Baso Cnt 0.1 10*3/uL Normal 0.0-0.2 [facility] Comment on above: Performed By: #### H EMDF, CMP3M, MG3 #### [facility] [address] [place] [address] Abs Neutrophile Cnt 7.3 10*3/uL High 1.8-7.0 [facility] Comment on above: Performed By: #### H EMDF, CMP3M, MG3 #### [facility] [address] [place] [address] Basophils/100 WBC (Bld) 1.2 % Normal 0.0-2.0 [facility] Comment on above: Performed By: #### H EMDF, CMP3M, MG3 #### [facility] [address] [place] [address] Eosinophils (Bld) [#/Vol] 0.1 10*3/uL Normal 0.0-0.5 [facility] Comment on above: Performed By: #### H EMDF, CMP3M, MG3 #### [facility] [address] [place] [address] Eosinophils/100 WBC (Bld) 1.0 % Normal 1.0-6.0 [facility] Comment on above: Performed By: #### H EMDF, CMP3M, MG3 #### [facility] [address] [place] [address] Erythrocyte distribution width (RBC) [Ratio] 14.0 % Normal 11.5-14.5 [facility] Comment on above: Performed By: #### H EMDF, CMP3M, MG3 #### [facility] [address] [place] [address] Granulocytes/100 WBC (Bld) 61.6 % Normal 40.0-80.0 [facility] Comment on above: Performed By: #### H EMDF, CMP3M, MG3 #### [facility] [address] [place] [address] Hematocrit (Bld) [Volume fraction] 39.0 % Normal 35.0-47.0 [facility] Comment on above: Performed By: #### H EMDF, CMP3M, MG3 #### [facility] [address] [place] [address] Hemoglobin (Bld) [Mass/Vol] 12.6 g/dL Normal 11.7-16.0 [facility] Comment on above: Performed By: #### H EMDF, CMP3M, MG3 #### [facility] [address] [place] [address] Lymphocytes (Bld) [#/Vol] 3.6 10*3/uL Normal 1.0-4.3 [facility] Comment on above: Performed By: #### H EMDF, CMP3M, MG3 #### [facility] [address] [place] [address] Lymphocytes/100 WBC (Bld) 30.1 % Normal 20.0-40.0 [facility] Comment on above: Performed By: #### H EMDF, CMP3M, MG3 #### [facility] [address] [place] [address] MCH (RBC) [Entitic mass] 27.7 pg Normal 26.0-34.0 [facility] Comment on above: Performed By: #### H EMDF, CMP3M, MG3 #### [facility] [address] [place] [address] MCHC 32.2 % Normal 32.0-36.0 [facility] Comment on above: Performed By: #### H EMDF, CMP3M, MG3 #### [facility] [address] [place] [address] MCV (RBC) [Entitic vol] 86.1 fL Normal 79.0-98.0 [facility] Comment on above: Performed By: #### H EMDF, CMP3M, MG3 #### [facility] [address] [place] [address] Monocytes (Bld) [#/Vol] 0.7 10*3/uL Normal 0.0-0.8 [facility] Comment on above: Performed By: #### H EMDF, CMP3M, MG3 #### [facility] [address] [place] [address] Monocytes/100 WBC (Bld) 6.1 % Normal 2.0-10.0 [facility] Comment on above: Performed By: #### H EMDF, CMP3M, MG3 #### [facility] [address] [place] [address] Platelet mean volume (Bld) [Entitic vol] 8.4 fL Normal 7.4-10.4 [facility] Comment on above: Performed By: #### H EMDF, CMP3M, MG3 #### [facility] [address] [place] [address] Platelets (Bld) [#/Vol] 370 10*3/uL Normal 140-440 [facility] Comment on above: Performed By: #### H EMDF, CMP3M, MG3 #### [facility] [address] [place] [address] RBC (Bld) [#/Vol] 4.53 10*6/uL Normal 3.80-5.20 [facility] Comment on above: Performed By: #### H EMDF, CMP3M, MG3 #### [facility] [address] [place] [address] WBC (Bld) [#/Vol] 11.9 10*3/uL High 3.6-10.7 [facility] Comment on above: Performed By: #### H EMDF, CMP3M, MG3 #### [facility] [address] [place] [address] Magnesiumon 07-04-2021 Magnesium [Mass/Vol] 1.8 mg/dL Normal 1.6-2.3 [facility] Comment on above: Performed By: #### Chinyere WASHBURN CMP3Josy, MG3 #### [facility] [address] [place] [address] Add on test from HISon 07-03 Add on test from HIS Accepted Normal [facility] Comment on above: Result Comment: Spec imen available & acceptable for analysis. Performed By: #### Chinyere WASHBURN CMP3M #### [facility] [address] [place] [address] Comp Panel with Mg Reflexon 07-03-2021 ALP [Catalytic activity/Vol] 55 U/L Normal 38-126 [facility] Comment on above: Performed By: #### Chinyere WASHBURN CMP3M #### [facility] [address] [place] [address] ALT [Catalytic activity/Vol] 18 U/L Normal 0-34 [facility] Comment on above: Result Comment: The ALT test is performed by an updated assay method. Please note that the reference intervals have been changed and are now sex specific. Performed By: #### Chinyere WASHBURN CMP3M #### [facility] [address] [place] [address] Calcium [Mass/Vol] 9.3 mg/dL Normal 8.4-10.4 [facility] Comment on above: Performed By: #### Chinyere WASHBURN CMP3M #### [facility] [address] [place] [address] Glucose [Mass/Vol] 102 mg/dL High 70-100 [facility] Comment on above: Performed By: #### Chinyere WASHBURN CMP3M #### [facility] [address] [place] [address] Urea nitrogen [Mass/Vol] 10 mg/dL Normal 9-20 [facility] Comment on above: Performed By: #### Chinyere WASHBURN CMP3M #### [facility] [address] [place] [address] Anion gap [Moles/Vol] 7 mmol/L Normal 3-13 [facility] Comment on above: Performed By: #### H WU CMP3M #### [facility] [address] [place] [address] AST [Catalytic activity/Vol] 30 U/L Normal 15-46 [facility] Comment on above: Performed By: #### H WU CMP3M #### [facility] [address] [place] [address] Bilirubin [Mass/Vol] 0.4 mg/dL Normal 0.2-1.3 [facility] Comment on above: Performed By: #### H WU CMP3M #### [facility] [address] [place] [address] CO2 [Moles/Vol] 30 mmol/L Normal 22-30 [facility] Comment on above: Performed By: #### H WU CMP3M #### [facility] [address] [place] [address] Creatinine [Mass/Vol] 0.43 mg/dL Low 0.52-1.25 [facility] Comment on above: Performed By: #### H WU CMP3M #### [facility] [address] [place] [address] eGFR OTHER > 90.0 Normal >60 [facility] Comment on above: Result Comment: KDIG O [...] creatinine secretion. Performed By: #### H WU CMP3M #### [facility] [address] [place] [address] GFR/1.73 sq M.predicted among blacks MDRD (S/P/Bld) [Vol rate/Area] mL/min/{1.73_m2} Normal >60 [facility] Comment on above: Performed By: #### Chinyere WASHBURN CMP3M #### [facility] [address] [place] [address] Protein [Mass/Vol] 6.7 g/dL Normal 6.3-8.2 [facility] Comment on above: Performed By: #### Chinyere WASHBURN CMP3M #### [facility] [address] [place] [address] Chloride [Moles/Vol] 102 mmol/L Normal 98-107 [facility] Comment on above: Performed By: #### Chinyere WASHBURN CMP3M #### [facility] [address] [place] [address] Potassium [Moles/Vol] 3.5 mmol/L Normal 3.5-5.1 [facility] Comment on above: Performed By: #### Chinyere WASHBURN CMP3M #### [facility] [address] [place] [address] Sodium [Moles/Vol] 139 mmol/L Normal 135-145 [facility] Comment on above: Performed By: #### Chinyere WASHBURN CMP3M #### [facility] [address] [place] [address] Albumin [Mass/Vol] 3.8 g/dL Normal 3.5-5.0 [facility] Comment on above: Performed By: #### Chinyere WASHBURN CMP3M #### [facility] [address] [place] [address] Hemogram w/ Autodiffon 07-03 Abs Baso Cnt 0.1 10*3/uL Normal 0.0-0.2 [facility] Comment on above: Performed By: #### Chinyere WASHBURN CMP3M #### [facility] [address] [place] [address] Abs Neutrophile Cnt 5.3 10*3/uL Normal 1.8-7.0 [facility] Comment on above: Performed By: #### Chinyere WASHBURN CMP3M #### [facility] [address] [place] [address] Basophils/100 WBC (Bld) 0.7 % Normal 0.0-2.0 [facility] Comment on above: Performed By: #### H EMDF, CMP3M #### [facility] [address] [place] [address] Eosinophils (Bld) [#/Vol] 0.0 10*3/uL Normal 0.0-0.5 [facility] Comment on above: Performed By: #### H EMDJustus CMP3M #### [facility] [address] [place] [address] Eosinophils/100 WBC (Bld) 0.3 % Low 1.0-6.0 [facility] Comment on above: Performed By: #### H EMDJustus CMP3M #### [facility] [address] [place] [address] Erythrocyte distribution width (RBC) [Ratio] 13.8 % Normal 11.5-14.5 [facility] Comment on above: Performed By: #### H EMDJustus CMP3M #### [facility] [address] [place] [address] Granulocytes/100 WBC (Bld) 67.3 % Normal 40.0-80.0 [facility] Comment on above: Performed By: #### H EMDJustus CMP3M #### [facility] [address] [place] [address] Hematocrit (Bld) [Volume fraction] 33.1 % Low 35.0-47.0 [facility] Comment on above: Performed By: #### H EMDJustus CMP3M #### [facility] [address] [place] [address] Hemoglobin (Bld) [Mass/Vol] 11.1 g/dL Low 11.7-16.0 [facility] Comment on above: Performed By: #### H EMDF, CMP3M #### [facility] [address] [place] [address] Lymphocytes (Bld) [#/Vol] 2.0 10*3/uL Normal 1.0-4.3 [facility] Comment on above: Performed By: #### H EMDF CMP3M #### [facility] [address] [place] [address] Lymphocytes/100 WBC (Bld) 25.9 % Normal 20.0-40.0 [facility] Comment on above: Performed By: #### H EMDF, CMP3M #### [facility] [address] [place] [address] MCH (RBC) [Entitic mass] 28.9 pg Normal 26.0-34.0 [facility] Comment on above: Performed By: #### H EMDF CMP3M #### [facility] [address] [place] [address] MCHC 33.7 % Normal 32.0-36.0 [facility] Comment on above: Performed By: #### H EMDF, CMP3M #### [facility] [address] [place] [address] MCV (RBC) [Entitic vol] 85.7 fL Normal 79.0-98.0 [facility] Comment on above: Performed By: #### H EMDJustus CMP3M #### [facility] [address] [place] [address] Monocytes (Bld) [#/Vol] 0.5 10*3/uL Normal 0.0-0.8 [facility] Comment on above: Performed By: #### H EMDF, CMP3M #### [facility] [address] [place] [address] Monocytes/100 WBC (Bld) 5.8 % Normal 2.0-10.0 [facility] Comment on above: Performed By: #### H EMDF CMP3M #### [facility] [address] [place] [address] Platelet mean volume (Bld) [Entitic vol] 8.8 fL Normal 7.4-10.4 [facility] Comment on above: Performed By: #### H EMDF, CMP3M #### [facility] [address] [place] [address] Platelets (Bld) [#/Vol] 256 10*3/uL Normal 140-440 [facility] Comment on above: Performed By: #### H WU CMP3M #### [facility] [address] [place] [address] RBC (Bld) [#/Vol] 3.85 10*6/uL Normal 3.80-5.20 [facility] Comment on above: Performed By: #### H WU CMP3M #### [facility] [address] [place] [address] WBC (Bld) [#/Vol] 7.9 10*3/uL Normal 3.6-10.7 [facility] Comment on above: Performed By: #### Chinyere WASHBURN CMP3M #### [facility] [address] [place] [address] Magnesiumon 07-03-2021 Magnesium [Mass/Vol] 1.9 mg/dL Normal 1.6-2.3 [facility] Comment on above: Performed By: #### Chinyere WASHBURN CMP3M #### [facility] [address] [place] [address] Thyroid Stim. Hormoneon 06-20 Thyroid Stim. Hormone 1.463 u[IU]/mL Normal 0.465-4.68 0 [facility] Comment on above: Performed By: #### Chinyere WASHBURN CMP3M #### [facility] [address] [place] [address] VL Renal Artery Duplexon VL Renal Artery Duplex Patient Name: CASIMIRO POLO Ultrasound ACCESSION EXAM DATE/TIME PROCEDURE ORDERING PROVIDER [id number] 07/03/2021 10:25 EST VL Renal Artery Duplex [id number] SELIN DELVALLE CPT code 50031 Reason For Exam (VL Renal Artery Duplex) r/o renal artery stenosis Report [facility] Renal Artery Duplex Patient DO NoeB: 1980 Study 07/03/2021 Name: Casimiro (40yrs) Date: Patient [id number] Age: 40 Account: [id number] ID: Gender: [id number] Loc: 146 BP: Ordering Physician: Selin Monson Director Of It Operations: Brandi Flores RDMS, RVT Interpreting Physician: Luis Ivy M.D. Location: [facility] Indications: HTN, Renal artery stenosis. Conclusions 1. [...] supine position. Images were obtained using a Yowza E9 vascular ultrasound machine. The abdominal aorta, the right renal and left renal arteries, and the left renal and right renal veins were studied. Arterial flow: + ----+ +------- ----+----+--------+ +Location +PSV(cm/sec)+EDV(cm/sec) +RI +AT + + ----+ +------- ----+----+--------+ +Suprarenal aorta +81 + +----+------ --+ + ----+ +------- ----+----+--------+ +R renal artery max , origin+119 +36 +----+--------+ + ----+ +------- ----+----+--------+ +R renal artery max , prox +102 +29 +----+--------+ + ----+ +------- ----+----+--------+ +R renal artery max , mid +95 +18 +----+--------+ + ----+ +------- ----+----+--------+ +R renal artery max , distal+82 +20 +----+--------+ + ----+ +------- ----+----+--------+ +R segmental + + +0.69+0.03 sec+ + ----+ +------- ----+----+--------+ +R arcuate + + +0.64+0.04 sec+ + ----+ +------- ----+----+--------+ +L renal artery max , prox +64 +16 +----+--------+ + ----+ +------- ----+----+--------+ +L renal artery max , mid +106 +29 +----+--------+ + ----+ +------- ----+----+--------+ +L renal artery max , distal+97 +24 +----+--------+ + ----+ +------- ----+----+--------+ +Accessory L renal , origin +65 +7 +----+--------+ + ----+ +------- ----+----+--------+ +L segmental + + +0.72+0.03 sec+ + ----+ +------- ----+----+--------+ +L arcuate + + +0.74+0.04 sec+ + ----+ +------- ----+----+--------+ Velocity ratios: + + -----+ + +Ratio+ + + -----+ +Right max renal/aortic+1.26 + + + -----+ +Left max renal/aortic +1.3 + + + -----+ Kidney length: +---------+ + + + +Right kidney+Left kidney+ +---------+ + + +Long axis+11.75 cm +12.13 cm + +---------+ + + Venous flow and imaging: + +-------+ +Location +Overall+ + +-------+ +R renal vein+Patent + + +-------+ +L renal vein+Patent + + +-------+ Ultrasound Report Prepared and electronically signed by Luis Ivy M.D. 07/03/2021 11:37 Final Dictated: 07/03/2021 11:38 am Dictating Physician: LUIS IVY Signed Date and Time: 07/03/2021 11:38 am Signed by: LUIS IVY Cardiovasc (more content not included)... Normal [facility] C-Reactive Proteinon 022 CRP [Mass/Vol] 130.7 mg/L High 0.0-9.9 [facility] Comment on above: Result Comment: . Performed By: #### H A1C2, ESR, CRP2 #### [facility] [address] [place] [address] #### ANA3 #### [address] Comp Panel with Mg Reflexon 07-02-2021 ALP [Catalytic activity/Vol] 58 U/L Normal 38-126 [facility] Comment on above: Performed By: #### H A1C2, ESR, CRP2 #### [facility] [address] [place] [address] #### ANA3 #### [place] [address] [place], [place] ALT [Catalytic activity/Vol] 17 U/L Normal 0-34 [facility] Comment on above: Result Comment: The ALT test is performed by an updated assay method. Please note that the reference intervals have been changed and are now sex specific. Performed By: #### H A1C2, ESR, CRP2 #### [facility] [address] [place] [address] #### ANA3 #### [address] Anion gap [Moles/Vol] 5 mmol/L Normal 3-13 [facility] Comment on above: Performed By: #### H A1C2, ESR, CRP2 #### [facility] [address] [place] [address] #### ANA3 #### [place] [address] [place] [place] [address] AST [Catalytic activity/Vol] 24 U/L Normal 15-46 [facility] Comment on above: Performed By: #### H A1C2, ESR, CRP2 #### [place] [address] [place] [address] #### ANA3 #### [place] [address] [address] [facility], [place] Bilirubin [Mass/Vol] 0.3 mg/dL Normal 0.2-1.3 [facility] Comment on above: Performed By: #### H A1C2, ESR, CRP2 #### [place] [address] [place] [address] #### ANA3 #### [place] [address] [address] [facility], [place] Calcium [Mass/Vol] 8.7 mg/dL Normal 8.4-10.4 [facility] Comment on above: Performed By: #### H A1C2, ESR, CRP2 #### [address] [place] [address] #### ANA3 #### [place] [address] [address] [place] CO2 [Moles/Vol] 29 mmol/L Normal 22-30 [facility] Comment on above: Performed By: #### H A1C2, ESR, CRP2 #### [place] [address] [place] [address] #### ANA3 #### [place] [address] [place] [address] Creatinine [Mass/Vol] 0.47 mg/dL Low 0.52-1.25 [facility] Comment on above: Performed By: #### H A1C2, ESR, CRP2 #### [place] [address] [place] [address] #### ANA3 #### [place] [address] [address] [facility], [place] eGFR OTHER > 90.0 Normal >60 [facility] Comment on above: Result Comment: KDIG O [...] By: #### H A1C2, ESR, CRP2 #### [employer] [address] [place] [address] #### ANA3 #### [employer] [address] [address] GFR/1.73 sq M.predicted among blacks MDRD (S/P/Bld) [Vol rate/Area] mL/min/{1.73_m2} Normal >60 [facility] Comment on above: Performed By: #### H A1C2, ESR, CRP2 #### [employer] [address] [place] [address] [place] [address] #### ANA3 #### [employer] [address] [address] Glucose [Mass/Vol] 131 mg/dL High 70-100 [facility] Comment on above: Performed By: #### H A1C2, ESR, CRP2 #### [employer] [address] [place] [address] #### ANA3 #### [employer] [address] [address] Protein [Mass/Vol] 6.6 g/dL Normal 6.3-8.2 [facility] Comment on above: Performed By: #### H A1C2, ESR, CRP2 #### [employer] [address] [place] [address] #### ANA3 #### [facility] [address] [place] [address] Urea nitrogen [Mass/Vol] 7 mg/dL Low 9-20 [facility] Comment on above: Performed By: #### H A1C2, ESR, CRP2 #### [facility] [address] [place] [address] #### ANA3 #### [place] [address] [place] [address] Potassium [Moles/Vol] 3.9 mmol/L Normal 3.5-5.1 [facility] Comment on above: Performed By: #### H A1C2, ESR, CRP2 #### [facility] [address] [place] [address] #### ANA3 #### [place] [address] [place] [address] Albumin [Mass/Vol] 3.7 g/dL Normal 3.5-5.0 [facility] Comment on above: Performed By: #### H A1C2, ESR, CRP2 #### [facility] [address] [place] [address] #### ANA3 #### [place] [address] [place] Chloride [Moles/Vol] 101 mmol/L Normal 98-107 [facility] Comment on above: Performed By: #### H A1C2, ESR, CRP2 #### [facility] [address] [place] [address] #### ANA3 #### [place] [address] [place] [address] Sodium [Moles/Vol] 136 mmol/L Normal 135-145 [facility] Comment on above: Performed By: #### H A1C2, ESR, CRP2 #### [facility] [address] [place] [address] #### ANA3 #### [place] [address] [place] [address] Hemogram w/ Autodiffon 07-02 Abs Baso Cnt 0.0 10*3/uL Normal 0.0-0.2 [facility] Comment on above: Performed By: #### H A1C2, ESR, CRP2 #### [facility] [address] [place] [address] #### ANA3 #### [place] [address] [address] [place] Abs Neutrophile Cnt 6.4 10*3/uL Normal 1.8-7.0 [facility] Comment on above: Performed By: #### H A1C2, ESR, CRP2 #### [facility] [address] [place] [address] #### ANA3 #### [place] [address] [place], [place] Basophils/100 WBC (Bld) 0.3 % Normal 0.0-2.0 [facility] Comment on above: Performed By: #### H A1C2, ESR, CRP2 #### [place] [address] [place] [address] #### ANA3 #### [place] [address] [place] Eosinophils (Bld) [#/Vol] 0.0 10*3/uL Normal 0.0-0.5 [facility] Comment on above: Performed By: #### H A1C2, ESR, CRP2 #### [place] [address] [place] [address] #### ANA3 #### [address] Eosinophils/100 WBC (Bld) 0.0 % Low 1.0-6.0 [facility] Comment on above: Performed By: #### H A1C2, ESR, CRP2 #### [place] [address] [place] [address] #### ANA3 #### [address] Erythrocyte distribution width (RBC) [Ratio] 13.4 % Normal 11.5-14.5 [facility] Comment on above: Performed By: #### H A1C2, ESR, CRP2 #### [place] [address] [place] [address] #### ANA3 #### [place] [address] [place] Granulocytes/100 WBC (Bld) 84.3 % High 40.0-80.0 [facility] Comment on above: Performed By: #### H A1C2, ESR, CRP2 #### [facility] [address] [place] [address] #### ANA3 #### [place] [address] [place] Hematocrit (Bld) [Volume fraction] 33.0 % Low 35.0-47.0 [facility] Comment on above: Performed By: #### H A1C2, ESR, CRP2 #### [facility] [address] [place] [address] #### ANA3 #### [place] [address] [place], [place] Hemoglobin (Bld) [Mass/Vol] 11.0 g/dL Low 11.7-16.0 [facility] Comment on above: Performed By: #### H A1C2, ESR, CRP2 #### [facility] [address] [place] [address] #### ANA3 #### [place] [address] [place] Lymphocytes (Bld) [#/Vol] 0.8 10*3/uL Low 1.0-4.3 [facility] Comment on above: Performed By: #### H A1C2, ESR, CRP2 #### [facility] [address] [place] [address] #### ANA3 #### [address] Lymphocytes/100 WBC (Bld) 10.9 % Low 20.0-40.0 [facility] Comment on above: Performed By: #### H A1C2, ESR, CRP2 #### [place] [address] [place] [address] #### ANA3 #### [place] [address] [place] MCH (RBC) [Entitic mass] 28.5 pg Normal 26.0-34.0 [facility] Comment on above: Performed By: #### H A1C2, ESR, CRP2 #### [place] [address] [place] [address] #### ANA3 #### [place] [address] [place] MCHC 33.4 % Normal 32.0-36.0 [facility] Comment on above: Performed By: #### H A1C2, ESR, CRP2 #### [address] [place] [address] #### ANA3 #### [address] MCV (RBC) [Entitic vol] 85.4 fL Normal 79.0-98.0 [facility] Comment on above: Performed By: #### H A1C2, ESR, CRP2 #### [address] [place] [address] #### ANA3 #### [address] Monocytes (Bld) [#/Vol] 0.3 10*3/uL Normal 0.0-0.8 [facility] Comment on above: Performed By: #### H A1C2, ESR, CRP2 #### [address] [place] [address] #### ANA3 #### [address] Monocytes/100 WBC (Bld) 4.5 % Normal 2.0-10.0 [facility] Comment on above: Performed By: #### H A1C2, ESR, CRP2 #### [address] [place] [address] #### ANA3 #### [address] Platelet mean volume (Bld) [Entitic vol] 9.2 fL Normal 7.4-10.4 [facility] Comment on above: Performed By: #### H A1C2, ESR, CRP2 #### [facility] [address] [place] [address] #### ANA3 #### [facility] [address] [place] [address] Platelets (Bld) [#/Vol] 236 10*3/uL Normal 140-440 [facility] Comment on above: Performed By: #### H A1C2, ESR, CRP2 #### [facility] [address] [place] [address] #### ANA3 #### [facility] [address] [place] [address] RBC (Bld) [#/Vol] 3.87 10*6/uL Normal 3.80-5.20 [facility] Comment on above: Performed By: #### H A1C2, ESR, CRP2 #### [address] [place] [address] #### ANA3 #### [place] [address] [place] [address] WBC (Bld) [#/Vol] 7.6 10*3/uL Normal 3.6-10.7 [facility] Comment on above: Performed By: #### H A1C2, ESR, CRP2 #### [address] [place] [address] #### ANA3 #### [place] [address] [place] [address] IgG Subclasseson 07-02-2021 IgG Subclass 1 262 mg/dL Normal 240-1118 [facility] Comment on above: Result Comment: REFE RENCE INTERVAL: Immunoglobulin G Subclass 1 The total IgG (mg/dL) can be derived from the sum of the subclass IgG1, IgG2, IgG3, and IgG4 values. However, a confirmatory and more precise total IgG is available by the turbidimetric method of quantitation for total IgG. Refer to test Immunoglobulin G, Serum ([id number]). Access complete set of age- and/or gender-specific reference intervals for this test in the [facility] [facility] Test [facility] ([employer]). Performed By: #### H EMDF, CMP3M #### [place] [address] [place] [address] IgG Subclass 2 196 mg/dL Normal 124-549 [facility] Comment on above: Result Comment: REFE RENCE INTERVAL: Immunoglobulin G Subclass 2 Access complete set of age- and/or gender-specific reference intervals for this test in the [facility] [facility] Test [facility] ([employer]). Performed By: #### H WU CMP3M #### [facility] [address] [place] [address] IgG Subclass 3 60 mg/dL Normal 21-134 [facility] Comment on above: Result Comment: REFE RENCE INTERVAL: Immunoglobulin G Subclass 3 Access complete set of age- and/or gender-specific reference intervals for this test in the [facility] Test [facility] ([employer]). Performed By: #### H WU CMP3M #### [facility] [address] [place] [address] IgG Subclass 4 4 mg/dL Normal 1-123 [facility] Comment on above: Result Comment: REFE RENCE INTERVAL: Immunoglobulin G Subclass 4 Access complete set of age- and/or gender-specific reference intervals for this test in the [facility] Test [facility] ([employer]). Performed by Walk-in, [address] [place] [id number] [email or web address], Sofia Anderson MD - Lab. Director Performed By: #### H WU CMP3M #### [facility] [address] [place] [address] Troponin Ion 07-02-2021 Troponin I.cardiac [Mass/Vol] ng/mL Normal 0.000-0.034 [facility] Comment on above: Result Comment: . Performed By: #### T ROPN #### [facility] [address] [place] [address] Anti-Nuclear Antibodyon 06-20 KENZIE Titer < 1 : 80 Normal <1:80 [facility] Comment on above: Result Comment: Test ed by Indirect Immunofluorescence Assay (IFA). Performed By: #### H A1C2, ESR, CRP2 #### [facility] [address] [place] [address] #### ANA3 #### [facility] [address] [place], [place] COVID and Resp PCR Panelon 0 07-01-2021 SARS-CoV-2 (COVID-19) RNA SOO+probe Ql (Unsp spec) COVID and Resp PCR Panel --> Status: F NEGATIVE: No targets were detected by the [employer]e Upper Respiratory Pathogens PCR Panel. _ Expected [...] Panel. _ Expected Result: Not Detected The [employer]e Upper Respiratory Pathogens PCR Panel can detect the following targets: SARS-CoV-2, Adenovirus, Coronavirus 229E, Coronavirus HKU1, Coronavirus NL63, Coronavirus OC43, Human Metapneumovirus, Human Rhinovirus/Enterovirus, Influenza A, Influenza B, Parainfluenza Virus 1, Parainfluenza Virus 2, Parainfluenza Virus 3, Parainfluenza Virus 4, Respiratory Syncytial Virus, Bordetella pertussis, Bordetella parapertussis, Chlamydia pneumoniae, Mycoplasma pneumoniae. Method: Real-time PCR. Normal [facility] Comment on above: Performed By: #### H A1C2, ESR, CRP2 #### [facility] [address] [place] [address] #### ANA3 #### [facility] [employer] [facility] [address] [place], [place] Comp Panel with Mg Reflexon 07-01-2021 ALP [Catalytic activity/Vol] 54 U/L Normal 38-126 [facility] Comment on above: Performed By: #### H EMDF, CMP3M #### [facility] [employer] [address] [place] [address] ALT [Catalytic activity/Vol] 15 U/L Normal 0-34 [facility] Comment on above: Result Comment: The ALT test is performed by an updated assay method. Please note that the reference intervals have been changed and are now sex specific. Performed By: #### Chinyere WASHBURN CMP3M #### [facility] [address] [place] [address] Anion gap [Moles/Vol] 4 mmol/L Normal 3-13 [facility] Comment on above: Performed By: #### Chinyere WASHBURN CMP3M #### [facility] [address] [place] [address] AST [Catalytic activity/Vol] 22 U/L Normal 15-46 [facility] Comment on above: Performed By: #### Chinyere WASHBURN CMP3M #### [facility] [address] [place] [address] Calcium [Mass/Vol] 8.5 mg/dL Normal 8.4-10.4 [facility] Comment on above: Performed By: #### Chinyere WASHBURN CMP3M #### [facility] [address] [place] [address] CO2 [Moles/Vol] 31 mmol/L High 22-30 [facility] Comment on above: Performed By: #### Chinyere WASHBURN CMP3M #### [facility] [address] [place] [address] Glucose [Mass/Vol] 85 mg/dL Normal 70-100 [facility] Comment on above: Performed By: #### Chinyere WASHBURN CMP3M #### [facility] [address] [place] [address] Protein [Mass/Vol] 6.4 g/dL Normal 6.3-8.2 [facility] Comment on above: Performed By: #### Chinyere WASHBURN CMP3M #### [facility] [address] [place] [address] Urea nitrogen [Mass/Vol] 11 mg/dL Normal 9-20 [facility] Comment on above: Performed By: #### Chinyere WASHBURN CMP3M #### [facility] [address] [place] [address] Bilirubin [Mass/Vol] 0.4 mg/dL Normal 0.2-1.3 [facility] Comment on above: Performed By: #### Chinyere WASHBURN CMP3M #### [facility] [address] [place] [address] Creatinine [Mass/Vol] 0.52 mg/dL Normal 0.52-1.25 [facility] Comment on above: Performed By: #### Chinyere WASHBURN CMP3M #### [facility] [address] [place] [address] eGFR OTHER > 90.0 Normal >60 [facility] Comment on above: Result Comment: KDIG O [...] Performed By: #### Chinyere WASHBURN CMP3M #### [facility] [address] [place] [address] GFR/1.73 sq M.predicted among blacks MDRD (S/P/Bld) [Vol rate/Area] mL/min/{1.73_m2} Normal >60 [facility] Comment on above: Performed By: #### Chinyere WASHBURN CMP3M #### [facility] [address] [place] [address] Albumin [Mass/Vol] 3.5 g/dL Normal 3.5-5.0 [facility] Comment on above: Performed By: #### Chinyere WASHBURN CMP3M #### [facility] [address] [place] [address] Chloride [Moles/Vol] 100 mmol/L Normal 98-107 [facility] Comment on above: Performed By: #### Chinyere WASHBURN CMP3M #### [facility] [address] [place] [address] Potassium [Moles/Vol] 3.9 mmol/L Normal 3.5-5.1 [facility] Comment on above: Performed By: #### Chinyere WASHBURN CMP3M #### [facility] [address] [place] [address] Sodium [Moles/Vol] 135 mmol/L Normal 135-145 [facility] Comment on above: Performed By: #### Chinyere WASHBURN CMP3M #### [facility] [address] [place] [address] Hemogram w/ Autodiffon 07-01 Abs Baso Cnt 0.1 10*3/uL Normal 0.0-0.2 [facility] Comment on above: Performed By: #### Chinyere WASHBURN CMP3M #### [facility] [address] [place] [address] Abs Neutrophile Cnt 6.9 10*3/uL Normal 1.8-7.0 [facility] Comment on above: Performed By: #### Chinyere WASHBURN CMP3M #### [facility] [address] [place] [address] Basophils/100 WBC (Bld) 0.5 % Normal 0.0-2.0 [facility] Comment on above: Performed By: #### Chinyere WASHBURN CMP3M #### [facility] [address] [place] [address] Eosinophils (Bld) [#/Vol] 0.3 10*3/uL Normal 0.0-0.5 [facility] Comment on above: Performed By: #### Chinyere WASHBURN CMP3M #### [facility] [address] [place] [address] Eosinophils/100 WBC (Bld) 2.8 % Normal 1.0-6.0 [facility] Comment on above: Performed By: #### Chinyere WASHBURN CMP3M #### [facility] [address] [place] [address] Erythrocyte distribution width (RBC) [Ratio] 13.8 % Normal 11.5-14.5 [facility] Comment on above: Performed By: #### Chinyere WASHBURN CMP3M #### [facility] [address] [place] [address] Granulocytes/100 WBC (Bld) 74.1 % Normal 40.0-80.0 [facility] Comment on above: Performed By: #### Chinyere WASHBURN CMP3M #### [facility] [address] [place] [address] Hematocrit (Bld) [Volume fraction] 33.5 % Low 35.0-47.0 [facility] Comment on above: Performed By: #### Chinyere WASHBURN CMP3M #### [facility] [address] [place] [address] Hemoglobin (Bld) [Mass/Vol] 11.1 g/dL Low 11.7-16.0 [facility] Comment on above: Performed By: #### Chinyere WASHBURN CMP3M #### [facility] [address] [place] [address] Lymphocytes (Bld) [#/Vol] 1.6 10*3/uL Normal 1.0-4.3 [facility] Comment on above: Performed By: #### Chinyere WASHBURN CMP3M #### [facility] [address] [place] [address] Lymphocytes/100 WBC (Bld) 16.8 % Low 20.0-40.0 [facility] Comment on above: Performed By: #### Chinyere WASHBURN CMP3M #### [facility] [address] [place] [address] MCH (RBC) [Entitic mass] 28.7 pg Normal 26.0-34.0 [facility] Comment on above: Performed By: #### Chinyere WASHBURN CMP3M #### [facility] [address] [place] [address] MCHC 33.3 % Normal 32.0-36.0 [facility] Comment on above: Performed By: #### Chinyere WASHBURN CMP3M #### [facility] [address] [place] [address] MCV (RBC) [Entitic vol] 86.3 fL Normal 79.0-98.0 [facility] Comment on above: Performed By: #### Chinyere WASHBURN CMP3M #### [facility] [address] [place] [address] Monocytes (Bld) [#/Vol] 0.5 10*3/uL Normal 0.0-0.8 [facility] Comment on above: Performed By: #### Chinyere WASHBURN CMP3M #### [facility] [address] [place] [address] Monocytes/100 WBC (Bld) 5.8 % Normal 2.0-10.0 [facility] Comment on above: Performed By: #### Chinyere WASHBURN CMP3M #### [facility] [address] [place] [address] Platelet mean volume (Bld) [Entitic vol] 8.6 fL Normal 7.4-10.4 [facility] Comment on above: Performed By: #### Chinyere WASHBURN CMP3M #### [facility] [address] [place] [address] Platelets (Bld) [#/Vol] 207 10*3/uL Normal 140-440 [facility] Comment on above: Performed By: #### Chinyere WASHBURN CMP3M #### [facility] [address] [place] [address] RBC (Bld) [#/Vol] 3.88 10*6/uL Normal 3.80-5.20 [facility] Comment on above: Performed By: #### Chinyere WASHBURN CMP3M #### [facility] [address] [place] [address] WBC (Bld) [#/Vol] 9.3 10*3/uL Normal 3.6-10.7 [facility] Comment on above: Performed By: #### Chinyere WASHBURN CMP3M #### [facility] [address] [place] [address] Add on test from HISon 06-30 Add on test from HIS Accepted Normal [facility] Comment on above: Result Comment: Spec imen available & acceptable for analysis. Performed By: #### H WU CMP3M #### [facility] [address] [place] [address] C-Reactive Proteinon 022 CRP [Mass/Vol] mg/L High 0.0-9.9 [facility] Comment on above: Result Comment: . Performed By: #### H A1C2, ESR, CRP2 #### [facility] [address] [place] [address] #### ANA3 #### [facility] [address] [address] Comp Panel with Mg Reflexon 06-30-2021 ALP [Catalytic activity/Vol] 53 U/L Normal 38-126 [facility] Comment on above: Performed By: #### H WU CMP3M #### [facility] [address] [place] [address] ALT [Catalytic activity/Vol] 16 U/L Normal 0-34 [facility] Comment on above: Result Comment: The ALT test is performed by an updated assay method. Please note that the reference intervals have been changed and are now sex specific. Performed By: #### Chinyere WASHBURN CMP3M #### [facility] [address] [place] [address] Calcium [Mass/Vol] 8.3 mg/dL Low 8.4-10.4 [facility] Comment on above: Performed By: #### Chinyere WASHBURN CMP3M #### [facility] [address] [place] [address] Glucose [Mass/Vol] 79 mg/dL Normal 70-100 [facility] Comment on above: Performed By: #### H WU CMP3M #### [facility] [address] [place] [address] Urea nitrogen [Mass/Vol] 10 mg/dL Normal 9-20 [facility] Comment on above: Performed By: #### H WU CMP3M #### [facility] [address] [place] [address] Anion gap [Moles/Vol] 4 mmol/L Normal 3-13 [facility] Comment on above: Performed By: #### H WU CMP3M #### [facility] [address] [place] [address] AST [Catalytic activity/Vol] 22 U/L Normal 15-46 [facility] Comment on above: Performed By: #### H WU CMP3M #### [facility] [address] [place] [address] Bilirubin [Mass/Vol] 0.7 mg/dL Normal 0.2-1.3 [facility] Comment on above: Performed By: #### H WU CMP3M #### [facility] [address] [place] [address] CO2 [Moles/Vol] 26 mmol/L Normal 22-30 [facility] Comment on above: Performed By: #### H WU CMP3M #### [facility] [address] [place] [address] Creatinine [Mass/Vol] 0.48 mg/dL Low 0.52-1.25 [facility] Comment on above: Performed By: #### H WU CMP3M #### [facility] [address] [place] [address] eGFR OTHER > 90.0 Normal >60 [facility] Comment on above: Result Comment: KDIG O [...] creatinine secretion. Performed By: #### H WU CMP3M #### [facility] [address] [place] [address] GFR/1.73 sq M.predicted among blacks MDRD (S/P/Bld) [Vol rate/Area] mL/min/{1.73_m2} Normal >60 [facility] Comment on above: Performed By: #### Chinyere WASHBURN CMP3M #### [facility] [address] [place] [address] Protein [Mass/Vol] 6.6 g/dL Normal 6.3-8.2 [facility] Comment on above: Performed By: #### Chinyere WASHBURN CMP3M #### [facility] [address] [place] [address] Potassium [Moles/Vol] 4.0 mmol/L Normal 3.5-5.1 [facility] Comment on above: Performed By: #### Chinyere WASHBURN CMP3M #### [facility] [address] [place] [address] Sodium [Moles/Vol] 134 mmol/L Low 135-145 [facility] Comment on above: Performed By: #### Chinyere WASHBURN CMP3M #### [facility] [address] [place] [address] Albumin [Mass/Vol] 3.7 g/dL Normal 3.5-5.0 [facility] Comment on above: Performed By: #### Chinyere WASHBURN CMP3M #### [facility] [address] [place] [address] Chloride [Moles/Vol] 103 mmol/L Normal 98-107 [facility] Comment on above: Performed By: #### Chinyere WASHBURN CMP3M #### [facility] [address] [place] [address] Hemoglobin A1Con 06-30-2021 Glucose [Mass/Vol] 91 mg/dL Normal [facility] Comment on above: Performed By: #### H A1C2, ESR, CRP2 #### [facility] [address] [place] [address] #### ANA3 #### [facility] [address] [place] [address] HbA1c (Bld) [Mass fraction] 4.8 % Normal [facility] Comment on above: Result Comment: Norm al less than 5.7% Prediabetes 5.7% to 6.4% Diabetes 6.5% or higher --HgbA1C levels may not be accurate in patients who have renal disease, received recent blood transfusions, are anemic, or who have dyshemoglobinemia. Performed By: #### H A1C2, ESR, CRP2 #### [facility] [address] [place] [address] #### ANA3 #### [facility] [address] [place] [address] Hemogram w/ Autodiffon 06-30 Abs Baso Cnt 0.0 10*3/uL Normal 0.0-0.2 [facility] Comment on above: Performed By: #### H BLU WASHBURN3M #### [facility] [address] [place] [address] Abs Neutrophile Cnt 9.9 10*3/uL High 1.8-7.0 [facility] Comment on above: Performed By: #### H BLU WASHBURN3M #### [facility] [address] [place] [address] Basophils/100 WBC (Bld) 0.2 % Normal 0.0-2.0 [facility] Comment on above: Performed By: #### Chinyere WASHBURN CMP3M #### [facility] [address] [place] [address] Eosinophils (Bld) [#/Vol] 0.1 10*3/uL Normal 0.0-0.5 [facility] Comment on above: Performed By: #### Chinyere WASHBURN CMP3M #### [facility] [address] [place] [address] Eosinophils/100 WBC (Bld) 1.0 % Normal 1.0-6.0 [facility] Comment on above: Performed By: #### Chinyere WASHBURN CMP3M #### [facility] [address] [place] [address] Erythrocyte distribution width (RBC) [Ratio] 13.8 % Normal 11.5-14.5 [facility] Comment on above: Performed By: #### Chinyere WASHBURN CMP3M #### [facility] [address] [place] [address] Granulocytes/100 WBC (Bld) 83.2 % High 40.0-80.0 [facility] Comment on above: Performed By: #### Chinyere WASHBURN CMP3M #### [facility] [address] [place] [address] Hematocrit (Bld) [Volume fraction] 35.0 % Normal 35.0-47.0 [facility] Comment on above: Performed By: #### H WU CMP3M #### [facility] [address] [place] [address] Hemoglobin (Bld) [Mass/Vol] 11.6 g/dL Low 11.7-16.0 [facility] Comment on above: Performed By: #### H WU CMP3M #### [facility] [address] [place] [address] Lymphocytes (Bld) [#/Vol] 1.0 10*3/uL Normal 1.0-4.3 [facility] Comment on above: Performed By: #### Chinyere WASHBURN CMP3M #### [facility] [address] [place] [address] Lymphocytes/100 WBC (Bld) 8.3 % Low 20.0-40.0 [facility] Comment on above: Performed By: #### Chinyere WASHBURN CMP3M #### [facility] [address] [place] [address] MCH (RBC) [Entitic mass] 28.6 pg Normal 26.0-34.0 [facility] Comment on above: Performed By: #### H WU CMP3M #### [facility] [address] [place] [address] MCHC 33.2 % Normal 32.0-36.0 [facility] Comment on above: Performed By: #### H WU CMP3M #### [facility] [address] [place] [address] MCV (RBC) [Entitic vol] 86.0 fL Normal 79.0-98.0 [facility] Comment on above: Performed By: #### Chinyere WASHBURN CMP3M #### [facility] [address] [place] [address] Monocytes (Bld) [#/Vol] 0.9 10*3/uL High 0.0-0.8 [facility] Comment on above: Performed By: #### H WU CMP3M #### [facility] [address] [place] [address] Monocytes/100 WBC (Bld) 7.3 % Normal 2.0-10.0 [facility] Comment on above: Performed By: #### H EMDJustus CMP3M #### [facility] [address] [place] [address] Platelet mean volume (Bld) [Entitic vol] 8.6 fL Normal 7.4-10.4 [facility] Comment on above: Performed By: #### H WU CMP3M #### [facility] [address] [place] [address] Platelets (Bld) [#/Vol] 185 10*3/uL Normal 140-440 [facility] Comment on above: Performed By: #### H WU CMP3M #### [facility] [address] [place] [address] RBC (Bld) [#/Vol] 4.07 10*6/uL Normal 3.80-5.20 [facility] Comment on above: Performed By: #### H WU CMP3M #### [facility] [address] [place] [address] WBC (Bld) [#/Vol] 11.9 10*3/uL High 3.6-10.7 [facility] Comment on above: Performed By: #### H EMDJustus CMP3M #### [facility] [address] [place] [address] IgG,Bloodon 06-30-2021 IgG,Blood 539.1 mg/dL Low 700.0-1600.0 [facility] Comment on above: Performed By: #### H EMDJustus CMP3M #### [facility] [address] [place] [address] Lipaseon 06-30-2021 Lipase [Catalytic activity/Vol] 170 U/L Normal 23-300 [facility] Comment on above: Performed By: #### H WU CMP3M #### [facility] [address] [place] [address] Sed Rateon 06-30-2021 Sed Rate 82 mm/h High 0-20 [facility] Comment on above: Performed By: #### H A1C2, ESR, CRP2 #### [facility] [address] [place] [address] #### ANA3 #### [address] Add on test from HISon 06-29 Add on test from HIS Accepted Normal [facility] Comment on above: Result Comment: Spec imen available & acceptable for analysis. Performed By: #### H WU CMP3M #### [facility] [address] [place] [address] Comp Panel with Mg Reflexon 06-29-2021 Calcium [Mass/Vol] 8.8 mg/dL Normal 8.4-10.4 [facility] Comment on above: Performed By: #### H A1C2, ESR, CRP2 #### [facility] [address] [place] [address] #### ANA3 #### [address] ALP [Catalytic activity/Vol] 50 U/L Normal 38-126 [facility] Comment on above: Performed By: #### H A1C2, ESR, CRP2 #### [facility] [address] [place] [address] #### ANA3 #### [address] ALT [Catalytic activity/Vol] 18 U/L Normal 0-34 [facility] Comment on above: Result Comment: The ALT test is performed by an updated assay method. Please note that the reference intervals have been changed and are now sex specific. Performed By: #### H A1C2, ESR, CRP2 #### [facility] [address] [place] [address] #### ANA3 #### [address] [place], [place] Anion gap [Moles/Vol] 5 mmol/L Normal 3-13 [facility] Comment on above: Performed By: #### H A1C2, ESR, CRP2 #### [facility] [address] [place] [address] #### ANA3 #### [place] [address] [place] AST [Catalytic activity/Vol] 22 U/L Normal 15-46 [facility] Comment on above: Performed By: #### H A1C2, ESR, CRP2 #### [facility] [address] [place] [address] #### ANA3 #### [place] [address] [place] Bilirubin [Mass/Vol] 1.0 mg/dL Normal 0.2-1.3 [facility] Comment on above: Performed By: #### H A1C2, ESR, CRP2 #### [facility] [address] [place] [address] #### ANA3 #### [place] [address] [address] [place] CO2 [Moles/Vol] 26 mmol/L Normal 22-30 [facility] Comment on above: Performed By: #### H A1C2, ESR, CRP2 #### [place] [address] [place] [address] #### ANA3 #### [place] [address] [place] Creatinine [Mass/Vol] 0.44 mg/dL Low 0.52-1.25 [facility] Comment on above: Performed By: #### H A1C2, ESR, CRP2 #### [facility] [address] [place] [address] #### ANA3 #### [place] [address] [place] [place] eGFR OTHER > 90.0 Normal >60 [facility] Comment on above: Result Comment: KDIG O [...] By: #### H A1C2, ESR, CRP2 #### [facility] [employer] [facility] [address] [place] [address] #### ANA3 #### [address] [address] GFR/1.73 sq M.predicted among blacks MDRD (S/P/Bld) [Vol rate/Area] mL/min/{1.73_m2} Normal >60 [facility] Comment on above: Performed By: #### H A1C2, ESR, CRP2 #### [facility] [employer] [facility] [address] [place] [address] #### ANA3 #### [address] [address] Glucose [Mass/Vol] 80 mg/dL Normal 70-100 [facility] Comment on above: Performed By: #### H A1C2, ESR, CRP2 #### [address] [place] [address] #### ANA3 #### [address] [address] Protein [Mass/Vol] 6.6 g/dL Normal 6.3-8.2 [facility] Comment on above: Performed By: #### H A1C2, ESR, CRP2 #### [facility] [address] [place] [address] #### ANA3 #### [address] [address] Urea nitrogen [Mass/Vol] 10 mg/dL Normal 9-20 [facility] Comment on above: Performed By: #### H A1C2, ESR, CRP2 #### [facility] [address] [place] [address] #### ANA3 #### [place] [address] [place] Albumin [Mass/Vol] 3.8 g/dL Normal 3.5-5.0 [facility] Comment on above: Performed By: #### H A1C2, ESR, CRP2 #### [facility] [address] [place] [address] #### ANA3 #### [address] Chloride [Moles/Vol] 100 mmol/L Normal 98-107 [facility] Comment on above: Performed By: #### H A1C2, ESR, CRP2 #### [facility] [address] [place] [address] #### ANA3 #### [address] Potassium [Moles/Vol] 4.0 mmol/L Normal 3.5-5.1 [facility] Comment on above: Performed By: #### H A1C2, ESR, CRP2 #### [facility] [address] [place] [address] #### ANA3 #### [address] Sodium [Moles/Vol] 131 mmol/L Low 135-145 [facility] Comment on above: Performed By: #### H A1C2, ESR, CRP2 #### [facility] [address] [place] [address] #### ANA3 #### [address] [address] Hemogram w/ Autodiffon 06-29 Abs Baso Cnt 0.0 10*3/uL Normal 0.0-0.2 [facility] Comment on above: Performed By: #### H A1C2, ESR, CRP2 #### [facility] [address] [place] [address] #### ANA3 #### [place] [address] [place] [address] Abs Neutrophile Cnt 15.5 10*3/uL High 1.8-7.0 [facility] Comment on above: Performed By: #### H A1C2, ESR, CRP2 #### [place] [address] [place] [address] #### ANA3 #### [place] [address] [place] [address] Basophils/100 WBC (Bld) 0.1 % Normal 0.0-2.0 [facility] Comment on above: Performed By: #### H A1C2, ESR, CRP2 #### [place] [address] [place] [address] #### ANA3 #### [address] Eosinophils (Bld) [#/Vol] 0.0 10*3/uL Normal 0.0-0.5 [facility] Comment on above: Performed By: #### H A1C2, ESR, CRP2 #### [address] [place] [address] #### ANA3 #### [address] Eosinophils/100 WBC (Bld) 0.1 % Low 1.0-6.0 [facility] Comment on above: Performed By: #### H A1C2, ESR, CRP2 #### [address] [place] [address] #### ANA3 #### [address] Erythrocyte distribution width (RBC) [Ratio] 13.7 % Normal 11.5-14.5 [facility] Comment on above: Performed By: #### H A1C2, ESR, CRP2 #### [place] [address] [place] [address] #### ANA3 #### [address] Granulocytes/100 WBC (Bld) 87.6 % High 40.0-80.0 [facility] Comment on above: Performed By: #### H A1C2, ESR, CRP2 #### [facility] [address] [place] [address] #### ANA3 #### [facility] [address] [place] Hematocrit (Bld) [Volume fraction] 38.6 % Normal 35.0-47.0 [facility] Comment on above: Performed By: #### H A1C2, ESR, CRP2 #### [facility] [address] [place] [address] #### ANA3 #### [place] [address] [place] Hemoglobin (Bld) [Mass/Vol] 12.6 g/dL Normal 11.7-16.0 [facility] Comment on above: Performed By: #### H A1C2, ESR, CRP2 #### [facility] [address] [place] [address] #### ANA3 #### [place] [address] [place] Lymphocytes (Bld) [#/Vol] 1.2 10*3/uL Normal 1.0-4.3 [facility] Comment on above: Performed By: #### H A1C2, ESR, CRP2 #### [place] [address] [place] [address] #### ANA3 #### [place] [address] [place] Lymphocytes/100 WBC (Bld) 7.0 % Low 20.0-40.0 [facility] Comment on above: Performed By: #### H A1C2, ESR, CRP2 #### [facility] [address] [place] [address] #### ANA3 #### [place] [address] [address] [place] MCH (RBC) [Entitic mass] 27.9 pg Normal 26.0-34.0 [facility] Comment on above: Performed By: #### H A1C2, ESR, CRP2 #### [facility] [address] [place] [address] #### ANA3 #### [address] MCHC 32.7 % Normal 32.0-36.0 [facility] Comment on above: Performed By: #### H A1C2, ESR, CRP2 #### [place] [address] [place] [address] #### ANA3 #### [place] [address] [place] MCV (RBC) [Entitic vol] 85.4 fL Normal 79.0-98.0 [facility] Comment on above: Performed By: #### H A1C2, ESR, CRP2 #### [address] [place] [address] #### ANA3 #### [address] Monocytes (Bld) [#/Vol] 0.9 10*3/uL High 0.0-0.8 [facility] Comment on above: Performed By: #### H A1C2, ESR, CRP2 #### [address] [place] [address] #### ANA3 #### [address] Monocytes/100 WBC (Bld) 5.2 % Normal 2.0-10.0 [facility] Comment on above: Performed By: #### H A1C2, ESR, CRP2 #### [place] [address] [place] [address] #### ANA3 #### [address] Platelet mean volume (Bld) [Entitic vol] 8.4 fL Normal 7.4-10.4 [facility] Comment on above: Performed By: #### H A1C2, ESR, CRP2 #### [place] [address] [place] [address] #### ANA3 #### [facility] [address] [place], [place] Platelets (Bld) [#/Vol] 231 10*3/uL Normal 140-440 [facility] Comment on above: Performed By: #### H A1C2, ESR, CRP2 #### [facility] [address] [place] [address] #### ANA3 #### [facility] [address] [place], [place] RBC (Bld) [#/Vol] 4.52 10*6/uL Normal 3.80-5.20 [facility] Comment on above: Performed By: #### H A1C2, ESR, CRP2 #### [facility] [address] [place] [address] #### ANA3 #### [facility] [address] [place], [place] WBC (Bld) [#/Vol] 17.7 10*3/uL High 3.6-10.7 [facility] Comment on above: Performed By: #### H A1C2, ESR, CRP2 #### [facility] [employer] [facility] [address] [place] [address] #### ANA3 #### [facility] [address] [place], [place] MRI Abdomen w/o Contraston 0 06-29-2021 MRI Abdomen w/o Contrast Patient Name: CASIMIRO LIU [facility] ACCESSION EXAM DATE/TIME PROCEDURE ORDERING PROVIDER [id number] 06/29/2021 16:57 EST MRI Abdomen w/o Contrast [id number] -ANILSELIN CPT code 86703 Reason For Exam (MRI Abdomen w/o Contrast) [...] Transcribed Date and Time: 06/29/2021 7:25 Normal [facility] Triglycerideon 06-29-2021 Triglyceride [Mass/Vol] 57 mg/dL Normal <150 [facility] Comment on above: Performed By: #### H A1C2, ESR, CRP2 #### [facility] [address] [place] [address] #### ANA3 #### [facility] [address] [place] [address] US Abdomen Limitedon 022 US Abdomen Limited Patient Name: CASIMIRO MCCARTY Ultrasound ACCESSION EXAM DATE/TIME PROCEDURE ORDERING PROVIDER [id number] 06/29/2021 06:50 EST US Abdomen Limited [id number] POLLY DYE CPT code 48855 Reason For Exam (US Abdomen Limited) Abdominal [...] Transcribed Date and Time: 06/29/2021 8:55 Normal [facility] Add on test from HISon 06-28 Add on test from HIS Accepted Normal [facility] Comment on above: Result Comment: Spec imen available & acceptable for analysis. Performed By: #### H EMDF, CMP3M #### [facility] [address] [place] [address] Basic Metabolic Panelon -0 Calcium [Mass/Vol] 9.2 mg/dL Normal 8.4-10.4 [facility] Comment on above: Performed By: #### H A1C2, ESR, CRP2 #### [facility] [address] [place] [address] #### ANA3 #### [address] [address] Glucose [Mass/Vol] 96 mg/dL Normal 70-100 [facility] Comment on above: Performed By: #### H A1C2, ESR, CRP2 #### [facility] [address] [place] [address] #### ANA3 #### [facility] [address] [place] [address] Urea nitrogen [Mass/Vol] 12 mg/dL Normal 9-20 [facility] Comment on above: Performed By: #### H A1C2, ESR, CRP2 #### [facility] [address] [place] [address] #### ANA3 #### [facility] [address] [place], [place] Anion gap [Moles/Vol] 6 mmol/L Normal 3-13 [facility] Comment on above: Performed By: #### H A1C2, ESR, CRP2 #### [facility] [address] [place] [address] #### ANA3 #### [facility] [address] [place] CO2 [Moles/Vol] 30 mmol/L Normal 22-30 [facility] Comment on above: Performed By: #### H A1C2, ESR, CRP2 #### [facility] [address] [place] [address] #### ANA3 #### [address] Creatinine [Mass/Vol] 0.60 mg/dL Normal 0.52-1.25 [facility] Comment on above: Performed By: #### H A1C2, ESR, CRP2 #### [facility] [address] [place] [address] #### ANA3 #### [address] eGFR OTHER > 90.0 Normal >60 [facility] Comment on above: Result Comment: KDIG O [...] By: #### H A1C2, ESR, CRP2 #### [facility] [address] [place] [address] #### ANA3 #### [address] GFR/1.73 sq M.predicted among blacks MDRD (S/P/Bld) [Vol rate/Area] mL/min/{1.73_m2} Normal >60 [facility] Comment on above: Performed By: #### H A1C2, ESR, CRP2 #### [address] [place] [address] #### ANA3 #### [address] Potassium [Moles/Vol] 4.1 mmol/L Normal 3.5-5.1 [facility] Comment on above: Performed By: #### H A1C2, ESR, CRP2 #### [address] [place] [address] #### ANA3 #### [address] Sodium [Moles/Vol] 137 mmol/L Normal 135-145 [facility] Comment on above: Performed By: #### H A1C2, ESR, CRP2 #### [address] [place] [address] #### ANA3 #### [address] Chloride [Moles/Vol] 102 mmol/L Normal 98-107 [facility] Comment on above: Performed By: #### H A1C2, ESR, CRP2 #### [address] [place] [address] #### ANA3 #### [address] [address] CR Chest Portableon 06-28-19 22 CR Chest Portable Patient Name: CASIMIRO MCCARTY Diagnostic Radiology ACCESSION EXAM DATE/TIME PROCEDURE ORDERING PROVIDER [id number] 06/28/2021 09:51 EST CR Chest Portable DILIA GLOVER PANCHO L CPT code 85006 Reason For Exam (CR Chest Portable) Chest [...] Transcribed Date and Time: 06/28/2021 10:29 Normal [facility] CTA Chest w/ + w/o Contrasto n 06-28-2021 CTA Chest w/ + w/o Contrast Patient Name: CASIMIRO LIU Computed Tomography ACCESSION EXAM DATE/TIME PROCEDURE ORDERING PROVIDER [id number] 06/28/2021 14:17 EST CTA Chest w/ + w/o DILIA GLOVER, PANCHO L Contrast CPT code 14547 Q9967 Reason For Exam (CTA Chest w/ [...] Transcribed Date and Time: 06/28/2021 2:34 Normal [facility] D-Dimer, Innovanceon 022 D-Dimer, Innovance 0.67 mg/L High <0.19-0.50 [facility] Comment on above: Result Comment: Inno branch D-Dimer values of <0.50 mg/L FEU can be used in combination with a pre-test probability model (e.g. Well's) to exclude pulmonary embolism (PE) disease, as well as an aid in the diagnosis of deep vein thrombosis (DVT). Performed By: #### H A1C2, ESR, CRP2 #### [facility] [address] [place] [address] #### ANA3 #### [facility] [address] [place] [address] ED Provider Noteon ED Provider Note Emergency Department Encounter [facility] ED Patient: Casimiro Liu : 1980 Date [...] procedures or time spent by the physicians legal assistant if they were caring for this [...] for clarification. Silvia Esqueda MD Acute Care [facility] Silvia Esqueda MD 06/28/21 1406 [facility] ED Provider Note [facility] ED eMERGENCY dEPARTMENT eNCOUnter Pt Name: Casimiro Liu Birthdate 1980 Date of evaluation: 06/28/2021 Provider: NOEL WOOD CHIEF COMPLAINT Chief Complaint Patient presents with ? Abdominal Pain ? Positive For Covid-19 HISTORY OF PRESENT ILLNESS (Location/Symptom, Timing/Onset,Context/Set ting, Quality, Duration, Modifying Factors, Severity) Note limiting [...] the Last Year: Not on file SCREENINGS @FLOW([id number])@ PHYSICAL EXAM (5+ for level 4, 8+ [...] Pulmonary ef (more content not included)... Normal [facility] Hemogram w/ Autodiffon 06-28 Abs Baso Cnt 0.1 10*3/uL Normal 0.0-0.2 [facility] Comment on above: Performed By: #### H A1C2, ESR, CRP2 #### [facility]CO [address] [place] [address] #### ANA3 #### [facility] [address] [place] [address] Abs Neutrophile Cnt 13.1 10*3/uL High 1.8-7.0 [facility] Comment on above: Performed By: #### H A1C2, ESR, CRP2 #### [facility] [address] [place] [address] #### ANA3 #### [place] [address] [place] [address] Basophils/100 WBC (Bld) 0.4 % Normal 0.0-2.0 [facility] Comment on above: Performed By: #### H A1C2, ESR, CRP2 #### [place] [address] [place] [address] #### ANA3 #### [address] [address] Eosinophils (Bld) [#/Vol] 0.1 10*3/uL Normal 0.0-0.5 [facility] Comment on above: Performed By: #### H A1C2, ESR, CRP2 #### [place] [address] [place] [address] #### ANA3 #### [address] [address] Eosinophils/100 WBC (Bld) 0.4 % Low 1.0-6.0 [facility] Comment on above: Performed By: #### H A1C2, ESR, CRP2 #### [address] [place] [address] #### ANA3 #### [place] [address] [place] [address] Erythrocyte distribution width (RBC) [Ratio] 13.6 % Normal 11.5-14.5 [facility] Comment on above: Performed By: #### H A1C2, ESR, CRP2 #### [place] [address] [place] [address] #### ANA3 #### [address] [address] Granulocytes/100 WBC (Bld) 83.6 % High 40.0-80.0 [facility] Comment on above: Performed By: #### H A1C2, ESR, CRP2 #### [facility] [address] [place] [address] #### ANA3 #### [address] Hematocrit (Bld) [Volume fraction] 44.1 % Normal 35.0-47.0 [facility] Comment on above: Performed By: #### H A1C2, ESR, CRP2 #### [place] [address] [place] [address] #### ANA3 #### [place] [address] [place] Hemoglobin (Bld) [Mass/Vol] 14.4 g/dL Normal 11.7-16.0 [facility] Comment on above: Performed By: #### H A1C2, ESR, CRP2 #### [place] [address] [place] [address] #### ANA3 #### [address] Lymphocytes (Bld) [#/Vol] 1.8 10*3/uL Normal 1.0-4.3 [facility] Comment on above: Performed By: #### H A1C2, ESR, CRP2 #### [address] [place] [address] #### ANA3 #### [address] Lymphocytes/100 WBC (Bld) 11.7 % Low 20.0-40.0 [facility] Comment on above: Performed By: #### H A1C2, ESR, CRP2 #### [place] [address] [place] [address] #### ANA3 #### [address] MCH (RBC) [Entitic mass] 28.1 pg Normal 26.0-34.0 [facility] Comment on above: Performed By: #### H A1C2, ESR, CRP2 #### [place] [address] [place] [address] #### ANA3 #### [address] [place] MCHC 32.7 % Normal 32.0-36.0 [facility] Comment on above: Performed By: #### H A1C2, ESR, CRP2 #### [facility] [address] [place] [address] #### ANA3 #### [place] [address] [place] MCV (RBC) [Entitic vol] 85.9 fL Normal 79.0-98.0 [facility] Comment on above: Performed By: #### H A1C2, ESR, CRP2 #### [facility] [address] [place] [address] #### ANA3 #### [address] Monocytes (Bld) [#/Vol] 0.6 10*3/uL Normal 0.0-0.8 [facility] Comment on above: Performed By: #### H A1C2, ESR, CRP2 #### [place] [address] [place] [address] #### ANA3 #### [address] Monocytes/100 WBC (Bld) 3.9 % Normal 2.0-10.0 [facility] Comment on above: Performed By: #### H A1C2, ESR, CRP2 #### [address] [place] [address] #### ANA3 #### [place] [address] [place] Platelet mean volume (Bld) [Entitic vol] 8.5 fL Normal 7.4-10.4 [facility] Comment on above: Performed By: #### H A1C2, ESR, CRP2 #### [place] [address] [place] [address] #### ANA3 #### [place] [address] [place] Platelets (Bld) [#/Vol] 314 10*3/uL Normal 140-440 [facility] Comment on above: Performed By: #### H A1C2, ESR, CRP2 #### [facility] [address] [place] [address] #### ANA3 #### [place] [address] [place] RBC (Bld) [#/Vol] 5.14 10*6/uL Normal 3.80-5.20 [facility] Comment on above: Performed By: #### H A1C2, ESR, CRP2 #### [address] [place] [address] #### ANA3 #### [place] [address] [place] WBC (Bld) [#/Vol] 15.7 10*3/uL High 3.6-10.7 [facility] Comment on above: Performed By: #### H A1C2, ESR, CRP2 #### [address] [place] [address] #### ANA3 #### [place] [address] [place], [place] Hepatic Functionon 2 ALP [Catalytic activity/Vol] 68 U/L Normal 38-126 [facility] Comment on above: Performed By: #### H A1C2, ESR, CRP2 #### [address] [place] [address] #### ANA3 #### [place] [address] [place], [place] ALT [Catalytic activity/Vol] 24 U/L Normal 0-34 [facility] Comment on above: Result Comment: The ALT test is performed by an updated assay method. Please note that the reference intervals have been changed and are now sex specific. Performed By: #### H A1C2, ESR, CRP2 #### [facility] [address] [place] [address] #### ANA3 #### [place] [address] [place], [place] AST [Catalytic activity/Vol] 26 U/L Normal 15-46 [facility] Comment on above: Performed By: #### H A1C2, ESR, CRP2 #### [facility] [address] [place] [address] #### ANA3 #### [address] Bilirubin [Mass/Vol] 0.9 mg/dL Normal 0.2-1.3 [facility] Comment on above: Performed By: #### H A1C2, ESR, CRP2 #### [place] [address] [place] [address] #### ANA3 #### [place] [address] [place], [place] Bilirubin.indirect [Mass/Vol] 0.0 mg/dL Normal 0.0-0.3 [facility] Comment on above: Performed By: #### H A1C2, ESR, CRP2 #### [place] [address] [place] [address] #### ANA3 #### [address] Protein [Mass/Vol] 7.8 g/dL Normal 6.3-8.2 [facility] Comment on above: Performed By: #### H A1C2, ESR, CRP2 #### [place] [address] [place] [address] #### ANA3 #### [address] Albumin [Mass/Vol] 4.7 g/dL Normal 3.5-5.0 [facility] Comment on above: Performed By: #### H A1C2, ESR, CRP2 #### [place] [address] [place] [address] #### ANA3 #### [address] Lipaseon 06-28-2021 Lipase [Catalytic activity/Vol] 3524 U/L High 23-300 [facility] Comment on above: Performed By: #### H A1C2, ESR, CRP2 #### [place] [address] [place] [address] #### ANA3 #### [facility] [address] [place] [address] SARS-CoV-2, Flu A/B and RSVo n 06-28-2021 SARS-CoV-2 (COVID-19) RNA SOO+probe Ql (Unsp spec) SARS-CoV-2 --> Status: F Not Detected. Flu A PCR --> Status: F Not Detected. Flu B PCR --> Status: F Not Detected. RSV PCR --> Status: F Not Detected. Expected Result: Not Detected _ Method: Real-time, RT-PCR This assay was developed by [employer] and distributed under an Emergency Use Authorization (EUA) granted by the FDA for the qualitative detection of nucleic acids from SARS-CoV-2, Influenza A, Influenza B, and Respiratory Syncytial Virus. Provider and patient fact sheets can be found at https://www.fda.gov/medi a/066511/download and https://www.fda.gov/medi a/543788/download. Expected Result: Not Detected _ Method: Real-time, RT-PCR This assay was developed by [employer] and distributed under an Emergency Use Authorization (EUA) granted by the FDA for the qualitative detection of nucleic acids from SARS-CoV-2, Influenza A, Influenza B, and Respiratory Syncytial Virus. Provider and patient fact sheets can be found at https://www.fda.gov/medi a/386030/download and https://www.fda.gov/medi a/672811/download. Normal [facility] Comment on above: Performed By: #### H A1C2, ESR, CRP2 #### [facility] [employer] [facility] [address] [place] [address] #### ANA3 #### [facility] [address] [place] [address] Troponin Ion 06-28-2021 Troponin I.cardiac [Mass/Vol] ng/mL Normal 0.000-0.034 [facility] Comment on above: Result Comment: . Performed By: #### H A1C2, ESR, CRP2 #### [facility] [address] [place] [address] #### ANA3 #### [facility] [address] [place] [address] hCG Quantitativeon 2 hCG Quantitative < 2 Normal [facility] Comment on above: Result Comment: Fema les [...] By: #### H A1C2, ESR, CRP2 #### [facility] [address] [place] [address] #### ANA3 #### [facility] [address] [place] [address] CMV IgG Abon 06-22-2018 CMV IgG Ab SEE BELOW Normal [facility] Comment on above: Result Comment: CMV [...] the amount of antibody present. Performing Laboratory: [facility] [employer] [address] [place] [address] Performed By: #### L IPD2 #### [facility] [address] [place], [place] [address] CMV IgM Abon 06-22-2018 CMV IgM Ab SEE BELOW Normal [facility] Comment on above: Result Comment: CMV IgM, [...] the amount of antibody present. Performing Laboratory: [facility] [employer] [address] [place] [address] Performed By: #### L IPD2 #### [facility] [address] [place] [id number] EBV Panelon 06-22-2018 EBV Panel SEE BELOW Normal [facility] Comment on above: Result Comment: EBV [...] appears last in acute infection Performing Laboratory: [facility] [address] [place] [address] Performed By: #### L IPD2 #### [place] [address] CRPon 06-19-2018 CRP mass conc mg/L Normal 0.00-0.30 [facility] Comment on above: Performed By: #### L IPD2 #### [place] [address] Hemogram/Diffon 06-19-2018 Abs Immature Grans 0.01 thou/cmm Normal 0.00-0.05 [facility] Comment on above: Performed By: #### L IPD2 #### [place] [address] Abs. Baso 0.03 thou/cmm Normal 0.01-0.08 [facility] Comment on above: Performed By: #### L IPD2 #### [place] [address] Abs. Tarrant 0.42 thou/cmm Normal 0.27-0.70 [facility] Comment on above: Performed By: #### L IPD2 #### [place] [address] Abs. Neut (ANC) 3.50 thou/cmm Normal 1.56-6.13 [facility] Comment on above: Performed By: #### L IPD2 #### [facility] [address] [place] [address] Basophils/100 WBC (Bld) 0.4 % Normal A [facility] [place] Comment on above: Performed By: #### L IPD2 #### [facility] [address] [place] [address] Eosinophils #/vol (Bld) 0.18 thou/cmm Normal 0.00-0.31 [facility] Comment on above: Performed By: #### L IPD2 #### [place] [address] Eosinophils/100 WBC (Bld) 2.7 % Normal [facility] Comment on above: Performed By: #### L IPD2 #### [place] [address] Erythrocyte distribution width Ratio (RBC) 13.4 % Normal 11.7-14.4 [facility] Comment on above: Performed By: #### L IPD2 #### [place] [address] Hematocrit Volume Fraction (Bld) 40.8 % Normal 34.1-44.9 [facility] Comment on above: Performed By: #### L IPD2 #### [place] [address] Hemoglobin mass conc (Bld) 13.0 g/dL Normal 11.2-15.7 [facility] Comment on above: Performed By: #### L IPD2 #### [facility] [address] [place] [address] Immature Grans 0.10 % Normal [facility] Comment on above: Performed By: #### L IPD2 #### [place] [address] Lymphocytes #/vol (Bld) 2.56 thou/cmm Normal 1.18-3.74 [facility] Comment on above: Performed By: #### L IPD2 #### [facility] [address] [place], [place] [address] Lymphocytes/100 WBC (Bld) 38.2 % Normal [facility] Comment on above: Performed By: #### L IPD2 #### [facility] [address] [place], [place] [address] MCH Entitic mass (RBC) 26.3 pg Normal 25.6-32.2 [facility] Comment on above: Performed By: #### L IPD2 #### [facility] [address] [place] [address] MCHC mass conc (RBC) 31.9 % Normal 31.6-34.8 [facility] Comment on above: Performed By: #### L IPD2 #### [facility] [address] [place] [address] MCV Entitic volume (RBC) 82.4 fL Normal 79.4-94.8 [facility] Comment on above: Performed By: #### L IPD2 #### [facility] [address] [place] [address] Monocytes/100 WBC (Bld) 6.3 % Normal [facility] Comment on above: Performed By: #### L IPD2 #### [facility] [address] [place] [address] Platelet mean volume Entitic volume (Bld) 10.8 fL Normal 9.4-12.3 [facility] Comment on above: Performed By: #### L IPD2 #### [facility] [address] [place] [address] Platelets #/vol (Bld) 254 thou/cmm Normal 182-369 A [facility] [place] Comment on above: Performed By: #### L IPD2 #### [facility] [address] [place] [address] RBC #/vol (Bld) 4.95 mil/cmm Normal 3.93-5.22 [facility] Comment on above: Performed By: #### L IPD2 #### [place] [address] RDW SD 39.9 fl Normal 36.4-46.3 [facility] Comment on above: Performed By: #### L IPD2 #### [facility] [address] [place], [place] [address] Seg Neutrophil 52.3 % Normal [facility] Comment on above: Performed By: #### L IPD2 #### [facility] [address] [place], [place] [address] WBC #/vol (Bld) 6.70 thou/cmm Normal 3.98-10.04 [facility] Comment on above: Performed By: #### L IPD2 #### [facility] [address] [place], [place] [address] US ABDOMEN [id number] [place] ABDOMEN 27196 Performed at [facility] APPROVED BY: Aguila Ronquillo MD EXAMINATION: COMPLETE ABDOMINAL ULTRASOUND CLINICAL HISTORY: Splenomegaly, elevated liver function tests TECHNIQUE: Sonography of the abdomen was performed. Images were obtained and stored in a permanent archive. MQ: [id number]_1 COMPARISON: 03/27/2018 MRCP. / CT RESULT: Pancreas: Unremarkable Portions obscured: Tail [...] cholecystectomy. No bile duct dilatation. . Normal [facility] MRI MRCP-BTREE/BILE W/WO CON TRAST [id number] 03-27-2018 MRI MRCP-BTREE/BILE W/WO CONTRAST [id number] Performed at [facility] APPROVED BY: Paulo Lund MD EXAM TITLE: MRI MRCP-BTREE/BILE W/WO CONTRAST [id number] DATE: 03/27/2018 17:51 INDICATION: Left upper quadrant [...] and the upper abdomen is normal. Normal [facility] CT ABDOMEN AND PELVIS WITH C ONTRASTon 03-09-2018 CT ABDOMEN AND PELVIS WITH CONTRAST Performed at [facility] APPROVED BY: HERO JOHNSON MD EXAMINATION: [...] of the report for complete information. Normal [facility] US FEMALE PELVIS TRANSABD LT Don 03-09-2018 FEMALE PELVIS TRANSABD LTD Performed at [facility] APPROVED BY: Paulo Lund MD EXAMINATION: [...] ovary. Otherwise no significant findings noted. Normal [facility] US TRANSVAGINALon 03-09-2018 US TRANSVAGINAL Performed at [facility] APPROVED BY: Paulo Lund MD EXAMINATION: [...] ovary. Otherwise no significant findings noted. Normal [employer] [facility] Urinalysis Routineon 018 Bacteria LM.HPF #/area (Urine sed) FEW Normal None [facility] Comment on above: Performed By: #### 2 5VD1 #### [facility] [address] [place] [address] Ep Cells Urine 7.3 /hpf High 0.0-5.0 [facility] Comment on above: Performed By: #### 2 5VD1 #### [facility] [address] [place] [address] Hyaline Cast 2.8 /lpf High 0.0-1.0 [facility] Comment on above: Performed By: #### 2 5VD1 #### [facility] [address] [place] [address] RBC,Urine 5.7 /hpf High 0.0-5.0 [facility] Comment on above: Performed By: #### 2 5VD1 #### [place] [address] WBC, Urine 45.6 /hpf High 0.0-5.0 [facility] Comment on above: Performed By: #### 2 5VD1 #### [facility] [address] [place] [address] Appearance Nom (U) CLOUDY Normal [facility] Comment on above: Performed By: #### 2 5VD1 #### [facility] [address] [place] [address] Bilirubin Urine Negative Normal Negative [facility] Comment on above: Performed By: #### 2 5VD1 #### [facility] [address] [place] [address] Color Nom (U) YELLOW Normal [facility] Comment on above: Performed By: #### 2 5VD1 #### [facility] [address] [place] [address] Glucose Ql (U) Negative Normal Negative [facility] Comment on above: Performed By: #### 2 5VD1 #### [facility] [address] [place], [place] [address] Hemoglobin,Urine SMALL Abnormal Negative [facility] Comment on above: Performed By: #### 2 5VD1 #### [facility] [address] [place], [place] [address] Ketone Urine Negative Normal Negative [facility] Comment on above: Performed By: #### 2 5VD1 #### [facility] [address] [place], [place] [address] Leukocytes Esterase LARGE Abnormal Negative [facility] Comment on above: Performed By: #### 2 5VD1 #### [facility] [address] [place] [address] Nitrites Urine Negative Normal Negative [facility] Comment on above: Performed By: #### 2 5VD1 #### [facility] [address] [place] [address] pH (U) 6.5 [pH] Normal 5.0-8.0 [facility] Comment on above: Performed By: #### 2 5VD1 #### [facility] [address] [place] [address] Protein mass conc (U) TRACE Abnormal Negative [facility] Comment on above: Performed By: #### 2 5VD1 #### [facility] [address] [place] [address] Specific [place], Ur 1.007 Normal 1.005-1.030 [facility] Comment on above: Performed By: #### 2 5VD1 #### [facility] [address] [place] [address] Urobilinogen,Ur 0.2 EU/dL Normal 0.0-1.0 [facility] Comment on above: Performed By: #### 2 5VD1 #### [facility] [address] [place], [place] [address] Urine HCG, Qual.on 8 HCG.beta subunit ( test) Ql (U) Negative Normal Negative [facility] Comment on above: Performed By: #### 2 5VD1 #### [facility] [address] [place] [address] Specific [place], [place] 1.007 Normal 1.005-1.030 [facility] Comment on above: Performed By: #### 2 5VD1 #### [facility] [address] [place], [place] [address] Comprehensive Panelon 2017 ALP enzyme act/vol 75 U/L Normal 46-116 [facility] Comment on above: Performed By: #### 2 5VD1 #### [facility] [address] [place], [place] [address] Bilirubin mass conc 0.5 mg/dL Normal 0.2-1.0 [facility] Comment on above: Performed By: #### 2 5VD1 #### [facility] [address] [place], [place] [address] Protein mass conc 7.2 g/dL Normal 6.4-8.2 [facility] Comment on above: Performed By: #### 2 5VD1 #### [facility] [address] [place], [place] [address] ALT enzyme act/vol 60 U/L Normal 12-78 [facility] Comment on above: Performed By: #### 2 5VD1 #### [facility] [address] [place], [place] [address] AST enzyme act/vol 53 U/L High 9-37 [facility] Comment on above: Performed By: #### 2 5VD1 #### [facility] [address] [place], [place] [address] Creatinine mass conc 0.59 mg/dL Normal 0.51-0.95 [facility] Comment on above: Performed By: #### 2 5VD1 #### [facility] [address] [place], [place] [address] Albumin mass conc 3.7 g/dL Normal 3.4-5.0 [facility] Comment on above: Performed By: #### 2 5VD1 #### [facility] [address] [place] [address] Anion gap molar conc 10 mmol/L Normal 8-16 [facility] Comment on above: Performed By: #### 2 5VD1 #### [facility] [address] [place], [place] [address] CO2 molar conc 30 mmol/L Normal 21-32 [facility] Comment on above: Performed By: #### 2 5VD1 #### [facility] [address] [place], [place] [address] Glucose mass conc 74 mg/dL Normal 70-99 [facility] Comment on above: Performed By: #### 2 5VD1 #### [facility] [address] [place], [place] [address] Urea nitrogen mass conc 4 mg/dL Low 7-18 A [facility] [place] Comment on above: Performed By: #### 2 5VD1 #### [facility] [address] [place] [address] Calcium mass conc 8.4 mg/dL Low 8.5-10.1 [facility] Comment on above: Performed By: #### 2 5VD1 #### [facility] [address] [place] [address] Chloride molar conc 103 mmol/L Normal 98-107 [facility] Comment on above: Performed By: #### 2 5VD1 #### [facility] [address] [place] [address] Potassium molar conc 3.8 mmol/L Normal 3.5-5.1 [facility] Comment on above: Performed By: #### 2 5VD1 #### [facility] [facility] [address] [place] [address] Sodium molar conc 139 mmol/L Normal 136-145 [facility] Comment on above: Performed By: #### 2 5VD1 #### [facility] [address] [place], [place] [address] Hemogram/Diffon 03-08-2018 Abs Immature Grans 0.02 thou/cmm Normal 0.00-0.05 [facility] Comment on above: Performed By: #### 2 5VD1 #### [facility] [address] [address] Abs. Baso 0.02 thou/cmm Normal 0.01-0.08 [facility] Comment on above: Performed By: #### 2 5VD1 #### [facility] [address] [address] Abs. Tarrant 0.31 thou/cmm Normal 0.27-0.70 [facility] Comment on above: Performed By: #### 2 5VD1 #### [facility] [address] [place], [place] [address] Abs. Neut (ANC) 2.76 thou/cmm Normal 1.56-6.13 [facility] Comment on above: Performed By: #### 2 5VD1 #### [facility] [address] [address] Basophils/100 WBC (Bld) 0.4 % Normal A [facility] [place] Comment on above: Performed By: #### 2 5VD1 #### [facility] [address] [address] Eosinophils #/vol (Bld) 0.10 thou/cmm Normal 0.00-0.31 [facility] Comment on above: Performed By: #### 2 5VD1 #### [facility] [address] [address] Eosinophils/100 WBC (Bld) 2.0 % Normal [facility] Comment on above: Performed By: #### 2 5VD1 #### [facility] [address] [address] Erythrocyte distribution width Ratio (RBC) 13.6 % Normal 11.7-14.4 [facility] Comment on above: Performed By: #### 2 5VD1 #### [facility] [address] [address] Hematocrit Volume Fraction (Bld) 37.5 % Normal 34.1-44.9 [facility] Comment on above: Performed By: #### 2 5VD1 #### [facility] [address] [address] Hemoglobin mass conc (Bld) 12.1 g/dL Normal 11.2-15.7 [facility] Comment on above: Performed By: #### 2 5VD1 #### [facility] [address] [address] Immature Grans 0.40 % Normal [facility] Comment on above: Performed By: #### 2 5VD1 #### [facility] [address] [place], [place] [address] Lymphocytes #/vol (Bld) 1.80 thou/cmm Normal 1.18-3.74 [facility] Comment on above: Performed By: #### 2 5VD1 #### [facility] [address] [place], [place] [address] Lymphocytes/100 WBC (Bld) 35.9 % Normal [facility] Comment on above: Performed By: #### 2 5VD1 #### [facility] [address] [place], [place] [address] MCH Entitic mass (RBC) 26.5 pg Normal 25.6-32.2 [facility] Comment on above: Performed By: #### 2 5VD1 #### [facility] [address] [place], [place] [address] MCHC mass conc (RBC) 32.3 % Normal 31.6-34.8 [facility] Comment on above: Performed By: #### 2 5VD1 #### [facility] [address] [place], [place] [address] MCV Entitic volume (RBC) 82.2 fL Normal 79.4-94.8 [facility] Comment on above: Performed By: #### 2 5VD1 #### [facility] [address] [place], [place] [address] Monocytes/100 WBC (Bld) 6.2 % Normal [facility] Comment on above: Performed By: #### 2 5VD1 #### [facility] [address] [place], [place] [address] Platelet mean volume Entitic volume (Bld) 9.9 fL Normal 9.4-12.3 [facility] Comment on above: Performed By: #### 2 5VD1 #### [facility] [address] [place], [place] [address] Platelets #/vol (Bld) 210 thou/cmm Normal 182-369 A [facility] [place] Comment on above: Performed By: #### 2 5VD1 #### [facility] [address] [place], [place] [address] RBC #/vol (Bld) 4.56 mil/cmm Normal 3.93-5.22 [facility] Comment on above: Performed By: #### 2 5VD1 #### [facility] [address] [place], [place] [address] RDW SD 40.4 fl Normal 36.4-46.3 [facility] Comment on above: Performed By: #### 2 5VD1 #### [facility] [address] [place] [address] Seg Neutrophil 55.1 % Normal [facility] Comment on above: Performed By: #### 2 5VD1 #### [facility] [address] [place], [place] [address] WBC #/vol (Bld) 5.01 thou/cmm Normal 3.98-10.04 [facility] Comment on above: Performed By: #### 2 5VD1 #### [place] [address] Lipase Bloodon 03-08-2018 Lipase Blood 82 U/L Normal 73-393 [facility] Comment on above: Performed By: #### 2 5VD1 #### [place] [address] MDRD GFRon 03-08-2018 GFR/1.73 sq M predicted among non-blacks MDRD vol rate/area (S/P/Bld) mL/min/{1.73_m2} Normal >60mL/min/1. 73m2 [facility] Comment on above: Result Comment: If t he patient is , multiply the result by 1.210. Performed By: #### 2 5VD1 #### [facility] [address] [place], [place] [address] Amylase Bloodon 03-07-2018 Amylase enzyme act/vol 16 U/L Low 25-115 [facility] Comment on above: Performed By: #### A MY #### [facility] [address] [place] [id number] CRPon 03-07-2018 CRP mass conc 1.10 mg/dL High 0.00-0.30 [facility] Comment on above: Performed By: #### 2 5VD1 #### [facility] [address] [place], [place] [address] Comprehensive Panelon 2017 ALP enzyme act/vol 79 U/L Normal 46-116 [facility] Comment on above: Performed By: #### 2 5VD1 #### [facility] [address] [place], [place] [address] Bilirubin mass conc 0.5 mg/dL Normal 0.2-1.0 [facility] Comment on above: Performed By: #### 2 5VD1 #### [facility] [address] [place], [place] [address] Protein mass conc 7.0 g/dL Normal 6.4-8.2 [facility] Comment on above: Performed By: #### 2 5VD1 #### [facility] [address] [place] [address] AST enzyme act/vol 48 U/L High 9-37 [facility] Comment on above: Performed By: #### 2 5VD1 #### [facility] [address] [place], [place] [address] Creatinine mass conc 0.59 mg/dL Normal 0.51-0.95 [facility] Comment on above: Performed By: #### 2 5VD1 #### [facility] [address] [place], [place] [address] ALT enzyme act/vol 57 U/L Normal 12-78 [facility] Comment on above: Performed By: #### 2 5VD1 #### [facility] [address] [place], [place] [address] Albumin mass conc 3.9 g/dL Normal 3.4-5.0 [facility] Comment on above: Performed By: #### 2 5VD1 #### [facility] [address] [place], [place] [address] Anion gap molar conc 7 mmol/L Low 8-16 [facility] Comment on above: Performed By: #### 2 5VD1 #### [facility] [address] [place], [place] [address] CO2 molar conc 31 mmol/L Normal 21-32 [facility] Comment on above: Performed By: #### 2 5VD1 #### [facility] [address] [place], [place] [address] Glucose mass conc 80 mg/dL Normal 70-99 [facility] Comment on above: Performed By: #### 2 5VD1 #### [facility] [address] [place] [address] Calcium mass conc 8.8 mg/dL Normal 8.5-10.1 [facility] Comment on above: Performed By: #### 2 5VD1 #### [facility] [address] [place] [address] Urea nitrogen mass conc 6 mg/dL Low 7-18 [facility] Comment on above: Performed By: #### 2 5VD1 #### [facility] [address] [place] [address] Chloride molar conc 105 mmol/L Normal 98-107 [facility] Comment on above: Performed By: #### 2 5VD1 #### [facility] [address] [place] [address] Potassium molar conc 3.8 mmol/L Normal 3.5-5.1 [facility] Comment on above: Performed By: #### 2 5VD1 #### [facility] [address] [place] [address] Sodium molar conc 139 mmol/L Normal 136-145 [facility] Comment on above: Performed By: #### 2 5VD1 #### [facility] [address] [address] Hemogram/Diffon 03-07-2018 Abs Immature Grans 0.02 thou/cmm Normal 0.00-0.05 [facility] Comment on above: Performed By: #### C BCD1 #### [facility] [address] [address] Abs. Baso 0.02 thou/cmm Normal 0.01-0.08 [facility] Comment on above: Performed By: #### C BCD1 #### [facility] [address] [address] Abs. Tarrant 0.37 thou/cmm Normal 0.27-0.70 [facility] Comment on above: Performed By: #### C BCD1 #### [facility] [address] [address] Abs. Neut (ANC) 3.03 thou/cmm Normal 1.56-6.13 [facility] Comment on above: Performed By: #### C BCD1 #### [facility] [address] [place] [address] Basophils/100 WBC (Bld) 0.3 % Normal A [facility] [place] Comment on above: Performed By: #### C BCD1 #### [facility] [address] [address] Eosinophils #/vol (Bld) 0.16 thou/cmm Normal 0.00-0.31 [facility] Comment on above: Performed By: #### C BCD1 #### [facility] [address] [address] Eosinophils/100 WBC (Bld) 2.7 % Normal [facility] Comment on above: Performed By: #### C BCD1 #### [facility] [address] [address] Erythrocyte distribution width Ratio (RBC) 13.6 % Normal 11.7-14.4 [facility] Comment on above: Performed By: #### C BCD1 #### [facility] [address] [address] Hematocrit Volume Fraction (Bld) 39.2 % Normal 34.1-44.9 [facility] Comment on above: Performed By: #### C BCD1 #### [facility] [address] [address] Hemoglobin mass conc (Bld) 12.5 g/dL Normal 11.2-15.7 [facility] Comment on above: Performed By: #### C BCD1 #### [facility] [address] [address] Immature Grans 0.30 % Normal [facility] Comment on above: Performed By: #### C BCD1 #### [facility] [address] [address] Lymphocytes #/vol (Bld) 2.29 thou/cmm Normal 1.18-3.74 [facility] Comment on above: Performed By: #### C BCD1 #### [facility] [address] [place], [place] [address] Lymphocytes/100 WBC (Bld) 38.9 % Normal [facility] Comment on above: Performed By: #### C BCD1 #### [facility] [address] [place] [address] MCH Entitic mass (RBC) 26.4 pg Normal 25.6-32.2 [facility] Comment on above: Performed By: #### C BCD1 #### [facility] [address] [place] [address] MCHC mass conc (RBC) 31.9 % Normal 31.6-34.8 [facility] Comment on above: Performed By: #### C BCD1 #### [facility] [address] [place] [address] MCV Entitic volume (RBC) 82.7 fL Normal 79.4-94.8 [facility] Comment on above: Performed By: #### C BCD1 #### [facility] [address] [place] [address] Monocytes/100 WBC (Bld) 6.3 % Normal [facility] Comment on above: Performed By: #### C BCD1 #### [facility] [address] [place] [address] Platelet mean volume Entitic volume (Bld) 10.2 fL Normal 9.4-12.3 [facility] Comment on above: Performed By: #### C BCD1 #### [facility] [address] [place] [address] Platelets #/vol (Bld) 234 thou/cmm Normal 182-369 A [facility] [place] Comment on above: Performed By: #### C BCD1 #### [facility] [address] [place] [address] RBC #/vol (Bld) 4.74 mil/cmm Normal 3.93-5.22 [facility] Comment on above: Performed By: #### C BCD1 #### [facility] [address] [place] [address] RDW SD 40.5 fl Normal 36.4-46.3 [facility] Comment on above: Performed By: #### C BCD1 #### [facility] [address] [place] [address] Seg Neutrophil 51.5 % Normal [facility] Comment on above: Performed By: #### C BCD1 #### [facility] [address] [place] [address] WBC #/vol (Bld) 5.89 thou/cmm Normal 3.98-10.04 [facility] Comment on above: Performed By: #### C BCD1 #### [facility] [address] [place] [address] Lipase Bloodon 03-07-2018 Lipase Blood 53 U/L Low 73-393 [facility] Comment on above: Performed By: #### L IP #### [facility] [address] [place] [address] MDRD GFRon 03-07-2018 GFR/1.73 sq M predicted among non-blacks MDRD vol rate/area (S/P/Bld) mL/min/{1.73_m2} Normal >60mL/min/1. 73m2 [facility] Comment on above: Result Comment: If t he patient is , multiply the result by 1.210. Performed By: #### 2 5VD1 #### [facility] [address] [place] [address] Sed Rateon 03-07-2018 Sed Rate 14 mm/hr Normal 0-20 [facility] Comment on above: Result Comment: TIFFANI ECTED: Previous result = 13, verified at 16:57 on 03/07/18. Performed By: #### E SR #### [facility] [address] [address] Basic Metabolic Panelon 02-18 Calcium mass conc 9.3 mg/dL Normal 8.4-10.4 [facility] Comment on above: Performed By: #### H EMOG, BMP3, LIPA4 ####[facility] [place] [address] Glucose mass conc 113 mg/dL High 70-100 [facility] Comment on above: Performed By: #### H EMOG, BMP3, LIPA4 ####[facility] [place] [address] Urea nitrogen mass conc 12 mg/dL Normal 7-20 [facility] Comment on above: Performed By: #### H EMOG, BMP3, LIPA4 ####[facility] [place] [address] Anion gap 3 molar conc 9 Normal [facility] Comment on above: Performed By: #### H EMOG, BMP3, LIPA4 ####[address] [place] [address] CO2 molar conc 27 mmol/L Normal 22-30 [facility] Comment on above: Performed By: #### H EMOG, BMP3, LIPA4 ####[address] [place] [address] Creatinine mass conc 0.67 mg/dL Normal 0.52-1.25 [facility] Comment on above: Performed By: #### H EMOG, BMP3, LIPA4 ####[address] [place] [address] GFR/1.73 sq M predicted among blacks MDRD vol rate/area (S/P/Bld) mL/min/{1.73_m2} Normal >60 [facility] Comment on above: Performed By: #### H EMOG, BMP3, LIPA4 ####[address] [place] [address] GFR/1.73 sq M predicted among non-blacks MDRD vol rate/area (S/P/Bld) mL/min/{1.73_m2} Normal >60 [facility] Comment on above: Result Comment: Sour ce- MDRD equation with creatinine calibration to IDMS(NKDEP) eGFR not recommended for drug dose adjustment Performed By: #### H EMOG, BMP3, LIPA4 ####[address] [place] [address] Potassium molar conc 3.7 mmol/L Normal 3.5-5.1 [facility] Comment on above: Performed By: #### H EMOG, BMP3, LIPA4 ####[facility] [place] [address] Chloride molar conc 105 mmol/L Normal 98-107 [facility] Comment on above: Performed By: #### H EMOG, BMP3, LIPA4 ####[facility] [place] [address] Sodium molar conc 142 mmol/L Normal 137-145 [facility] Comment on above: Performed By: #### H EMOG, BMP3, LIPA4 ####[facility] [place] [address] CT Abdomen/Pelvis w/ Contras ton 03-06-2018 CT Abdomen/Pelvis w/ Contrast Patient Name: CASIMIRO LIU CT Exam Date/Time 03/06/2018 09:50:[address] Abdomen/Pelvis w/ IV Contrast (IV Onl Ordering Physician ELSA HOLDER Accession Number [id number] CPT4 Codes 15654 (CT Abdomen/Pelvis w/ IV Contrast (IV Onl), [...] Final Dictated: 03/06/2018 10:21 am Dictating Physician: MD DAVIS ANTHONY J Signed Date and Time: 03/06/2018 10:31 am Signed by: MD DAVIS ANTHONY J Transcribed Date and Time: 03/06/2018 10:21 Normal [facility] Hemogramon 03-06-2018 Erythrocyte distribution width Auto Ratio (RBC) 14.6 % High 11.5-14.5 [facility] Comment on above: Performed By: #### H LUNA COLLADO LIPA4 ####[facility] [place] [address] Hematocrit Auto Volume Fraction (Bld) 36.9 % Normal 35.0-47.0 [facility] Comment on above: Performed By: #### H POWER COLLADO3, LIPA4 ####[facility] [place] [address] Hemoglobin mass conc (Bld) 12.4 g/dL Normal 11.7-16.0 [facility] Comment on above: Performed By: #### H EMOG, BMP3, LIPA4 ####[address] [place] [address] MCH Auto Entitic mass (RBC) 26.9 pg Normal 26.0-34.0 [facility] Comment on above: Performed By: #### H EMOG, BMP3, LIPA4 ####[address] [address] MCHC Auto mass conc (RBC) 33.8 % Normal 32.0-36.0 [facility] Comment on above: Performed By: #### H EMOG, BMP3, LIPA4 ####[address] [address] MCV Auto Entitic volume (RBC) 79.8 fL Normal 79.0-98.0 [facility] Comment on above: Performed By: #### H EMOG, BMP3, LIPA4 ####[address] [address] Platelet mean volume Auto Entitic volume (Bld) 8.0 fL Normal 7.4-10.4 [facility] Comment on above: Performed By: #### H EMOG, BMP3, LIPA4 ####[address] [address] Platelets Auto #/vol (Bld) 205 10*3/uL Normal 140-440 [facility] Comment on above: Performed By: #### H EMOG, BMP3, LIPA4 ####[address] [address] RBC Auto #/vol (Bld) 4.62 10*6/uL Normal 3.80-5.20 [facility] Comment on above: Performed By: #### H EMOG, BMP3, LIPA4 ####[address] [address] WBC Auto #/vol (Bld) 5.0 10*3/uL Normal 3.6-10.7 [facility] Comment on above: Performed By: #### H EMOG, BMP3, LIPA4 ####[address] [place] [address] Lipaseon 03-06-2018 Lipase enzyme act/vol 21 U/L Low 23-300 [facility] Comment on above: Performed By: #### H EMOG, BMP3, LIPA4 ####[address] [place] [address] Urinalysis,Macroon 8 Appearance Clear Normal Clear [facility] Comment on above: Performed By: #### U AMAC, UAMIC ####[address] [place] [address] Bilirubin,Ur 1 + Normal Negative [facility] Comment on above: Performed By: #### U AMAC, UAMIC ####[address] [address] Color Yellow Normal Lt. Yellow [facility] Comment on above: Performed By: #### U AMAC, UAMIC ####[address] [address] Glucose Ql (U) NEG (Normal) Normal Negative [facility] Comment on above: Performed By: #### U AMAC, UAMIC ####[address] [address] Ketone,Urine 1+ (small) Normal Negative [facility] Comment on above: Performed By: #### U AMAC, UAMIC ####[address] [place] [address] Leukocytes 2 + Normal Negative [facility] Comment on above: Performed By: #### U AMAC, UAMIC ####[address] [place] [address] Nitrites Positive Normal Negative [facility] Comment on above: Performed By: #### U AMAC, UAMIC ####[address] [place] [address] Occult Blood,Ur 1+(5-10) Normal Negative [facility] Comment on above: Performed By: #### U AMAC, UAMIC ####[address] [place] [address] pH Test strip (U) 5.0 Normal 5.0-8.0 [facility] Comment on above: Performed By: #### U AMAC, UAMIC ####[address] [place] [address] Specific [place],Urine 1.030 Normal 1.005-1.030 [facility] Comment on above: Performed By: #### U AMAC, UAMIC ####[address] [place] [address] Total Protein,Urine 1+ (30) Normal Negative [facility] Comment on above: Performed By: #### U AMAC, UAMIC ####[address] [address] Urobilinogen 1.0 mg/dL Normal 0-1 [facility] Comment on above: Performed By: #### U AMAC, UAMIC ####[address] [address] Urinalysis,Microscopicon Bacteria Few (1-5) Normal Negative [facility] Comment on above: Performed By: #### U AMAC, UAMIC ####[address] [place] [address] Ca Oxylate Crystals Moderate (6-50) Normal Negative [facility] Comment on above: Performed By: #### U AMAC, UAMIC ####[address] [place] [address] Epithelial Cells 11 - 25 Normal 3-5 [facility] Comment on above: Performed By: #### U AMAC, UAMIC ####[address] [place] [address] Mucous Threads Moderate Normal Negative [facility] Comment on above: Performed By: #### U AMAC, UAMIC ####[facility] [place] [address] RBC LM.HPF #/area (Urine sed) Negative Normal 0-2 [facility] Comment on above: Performed By: #### U AMAC, UAMIC ####[facility] [place] [address] WBC LM.HPF #/area (Urine sed) 11 - 25 Normal 0-5 [facility] Comment on above: Performed By: #### U AMAC, UAMIC ####[facility] [place] [address] Comprehensive Panelon 2017 ALP enzyme act/vol 74 U/L Normal 46-116 [facility] Comment on above: Performed By: #### P 14 #### [facility] [address] [place], [place] [address] Protein mass conc 7.2 g/dL Normal 6.4-8.2 [facility] Comment on above: Performed By: #### P 14 #### [facility] [address] [place], [place] [address] Bilirubin mass conc 0.5 mg/dL Normal 0.2-1.0 [facility] Comment on above: Performed By: #### P 14 #### [facility] [address] [place], [place] [address] ALT enzyme act/vol 40 U/L Normal 12-78 [facility] Comment on above: Performed By: #### P 14 #### [facility] [address] [place], [place] [address] Creatinine mass conc 0.57 mg/dL Normal 0.51-0.95 [facility] Comment on above: Performed By: #### P 14 #### [facility] [address] [place], [place] [address] AST enzyme act/vol 25 U/L Normal 9-37 [facility] Comment on above: Performed By: #### P 14 #### [facility] [address] [place], [place] [address] Albumin mass conc 4.0 g/dL Normal 3.4-5.0 [facility] Comment on above: Performed By: #### P 14 #### [facility] [address] [place], [place] [address] Glucose mass conc 97 mg/dL Normal 70-99 [facility] Comment on above: Performed By: #### P 14 #### [facility] [address] [place], [place] [address] Urea nitrogen mass conc 10 mg/dL Normal 7-18 [facility] Comment on above: Performed By: #### P 14 #### [facility] [address] [place] [address] Anion gap molar conc 11 mmol/L Normal 8-16 [facility] Comment on above: Performed By: #### P 14 #### [facility] [address] [place], [place] [address] Calcium mass conc 8.7 mg/dL Normal 8.5-10.1 [facility] Comment on above: Performed By: #### P 14 #### [facility] [address] [place] [address] CO2 molar conc 28 mmol/L Normal 21-32 [facility] Comment on above: Performed By: #### P 14 #### [facility] [address] [place], [place] [address] Chloride molar conc 106 mmol/L Normal 98-107 [facility] Comment on above: Performed By: #### P 14 #### [facility] [address] [place], [place] [address] Potassium molar conc 4.1 mmol/L Normal 3.5-5.1 [facility] Comment on above: Performed By: #### P 14 #### [facility] [address] [place] [address] Sodium molar conc 141 mmol/L Normal 136-145 [facility] Comment on above: Performed By: #### P 14 #### [facility] [address] [place] [address] Hemogramon 01-25-2018 Erythrocyte distribution width Ratio (RBC) 13.0 % Normal 11.7-14.4 [facility] Comment on above: Performed By: #### C BC1 #### [facility] [address] [address] Hematocrit Volume Fraction (Bld) 41.4 % Normal 34.1-44.9 [facility] Comment on above: Performed By: #### C BC1 #### [facility] [address] [address] Hemoglobin mass conc (Bld) 13.5 g/dL Normal 11.2-15.7 [facility] Comment on above: Performed By: #### C BC1 #### [facility] [address] [address] MCH Entitic mass (RBC) 27.6 pg Normal 25.6-32.2 [facility] Comment on above: Performed By: #### C BC1 #### [facility] [address] [address] MCHC mass conc (RBC) 32.6 % Normal 31.6-34.8 [facility] Comment on above: Performed By: #### C BC1 #### [place] [address] MCV Entitic volume (RBC) 84.5 fL Normal 79.4-94.8 [facility] Comment on above: Performed By: #### C BC1 #### [facility] [address] [address] Platelet mean volume Entitic volume (Bld) 11.2 fL Normal 9.4-12.3 [facility] Comment on above: Performed By: #### C BC1 #### [facility] [facility] [address] [place] [id number] Platelets #/vol (Bld) 315 thou/cmm Normal 182-369 [facility] Comment on above: Performed By: #### C BC1 #### [facility] [address] [place] [address] RBC #/vol (Bld) 4.90 mil/cmm Normal 3.93-5.22 [facility] Comment on above: Performed By: #### C BC1 #### [place] [address] RDW SD 39.8 fl Normal 36.4-46.3 [facility] Comment on above: Performed By: #### C BC1 #### [facility] [address] [place], [place] [address] WBC #/vol (Bld) 8.25 thou/cmm Normal 3.98-10.04 [facility] Comment on above: Performed By: #### C BC1 #### [facility] [address] [place], [place] [address] Lipid Profileon 01-25-2018 Cholesterol in LDL mass conc 71 mg/dL Normal [facility] Comment on above: Result Comment: No C AD and with fewer than 2 CAD risk factors <160 mg/dL No CAD but with 2 or more CAD risk factors <130 mg/dL Definite CAD or other atherosclerotic disease <100 mg/dL Performed By: #### L IPD2 #### [address] [address] Cholesterol in LDL/Cholesterol in HDL mass ratio 1.6 Normal 0.6-3.6 [facility] Comment on above: Result Comment: LDL, VLDL,LDL/HDL, Invalid if Triglyceride >400 Performed By: #### L IPD2 #### [facility] [address] [place], [place] [address] Cholesterol in VLDL mass conc 15 mg/dL Normal <50 Desired [facility] Comment on above: Performed By: #### L IPD2 #### [facility] [address] [place], [place] [address] Triglyceride mass conc 75 mg/dL Normal 0-149 [facility] Comment on above: Result Comment: < 20 0 Desirable Result invalid if not a fasting specimen. Performed By: #### L IPD2 #### [facility] [address] [place], [place] [address] Cholesterol in HDL mass conc 45 mg/dL Normal >40 [facility] Comment on above: Performed By: #### L IPD2 #### [facility] [address] [place], [place] [address] Cholesterol.total/Nai sterol in HDL mass ratio 2.9 {ratio} Normal 1.8-5.3 [facility] Comment on above: Performed By: #### L IPD2 #### [facility] [address] [place], [place] [address] Cholesterol mass conc 131 mg/dL Normal 0-199 [facility] Comment on above: Result Comment: <200 Desirable 200-240 Borderline >240 High Performed By: #### L IPD2 #### [facility] [address] [place], [place] [address] MDRD GFRon 01-25-2018 GFR/1.73 sq M predicted among non-blacks MDRD vol rate/area (S/P/Bld) mL/min/{1.73_m2} Normal >60mL/min/1. 73m2 [facility] Comment on above: Result Comment: If t he patient is , multiply the result by 1.210. Performed By: #### G FR #### [facility] [address] [place] [id number] TSH, 3rd generationon 2017 TSH, 3rd generation 0.692 uIU/mL Normal 0.358-3.740 [facility] Comment on above: Performed By: #### T SH3 #### [address] [address] Total 25-OH Vitamin Don 08- Total 25-OH Vitamin D 23.8 ng/mL Low 30.0-100.0 [facility] Comment on above: Performed By: #### 2 5VD1 #### [address] [address] Vital Signs Date Time Vital Sign Value Performing Clinician Facility 03-30-2025 08:35-0400 Body temperature 97.9 [degF] Mary Escobar MD Work Phone: [facility] 03-30-2025 08:35-0400 Diastolic blood pressure 88 mm[Hg] Mary Escobar MD Work Phone: [facility] 03-30-2025 08:35-0400 Heart rate 78 /min Mary Escobar MD Work Phone: [facility] 03-30-2025 08:35-0400 Inhaled oxygen flow rate 2 L/min Mary Escobar MD Work Phone: [facility] 03-30-2025 08:35-0400 Respiratory rate 15 /min Mary Escobar MD Work Phone: 1(141)721-748346 [place] [address] 03-30-2025 08:35-0400 SaO2% (BldA) [Mass fraction] 95 % Mary Escobar MD Work Phone: 5(103)395-911446 [place] [address] 03-30-2025 08:35-0400 Systolic blood pressure 141 mm[Hg] Mary Escobar MD Work Phone: 7(420)359-134646 [place] [address] 03-29-2025 05:17-0400 Body mass index (BMI) [Ratio] 39.2 kg/m2 Mary Escobar MD Work Phone: 5(078)522-098246 [place] [address] 03-29-2025 05:17-0400 Body weight 104.2 kg Mary Escobar MD Work Phone: 1(815)732-431046 [place] [address] 03-28-2025 10:37-0400 Body height 162.99 cm Mary Escobar MD Work Phone: 2(612)211-481246 [place] [address] 03-27-2025 20:50-0400 Body temperature 98.1 [degF] Mary Escobar MD Work Phone: 9(899)062-896946 [place] [address] 03-27-2025 20:50-0400 Diastolic blood pressure 94 mm[Hg] Mary Escobar MD Work Phone: 7(020)710-556146 [place] [address] 03-27-2025 20:50-0400 Heart rate 73 /min Mary Escobar MD Work Phone: 2(355)709-691246 [place] [address] 03-27-2025 20:50-0400 Respiratory rate 16 /min Mary Escobar MD Work Phone: 7(642)180-413346 [place] [address] 03-27-2025 20:50-0400 SaO2% (BldA) [Mass fraction] 100 % Mary Escobar MD Work Phone: 3(761)830-912846 [place] [address] 03-27-2025 20:50-0400 Systolic blood pressure 149 mm[Hg] Mary Escobar MD Work Phone: 7(517)379-544246 [place] [address] 03-27-2025 17:40-0400 Body height 162.56 cm Mary Escobar MD Work Phone: [facility] 03-27-2025 17:40-0400 Body mass index (BMI) [Ratio] 39.2 kg/m2 Mary Escobar MD Work Phone: [facility] 03-27-2025 17:40-0400 Body weight 103.73 kg Mary Escobar MD Work Phone: [facility] 11-29-2024 15:45-0400 Body temperature 96.8 [degF] Mray Escobar MD Work Phone: [facility] 11-29-2024 15:45-0400 Diastolic blood pressure 87 mm[Hg] Mary Escobar MD Work Phone: [facility] 11-29-2024 15:45-0400 Heart rate 77 /min Mary Escobar MD Work Phone: 1(933)828-462781 [place] [address] 11-29-2024 15:45-0400 Respiratory rate 16 /min Mary Escobar MD Work Phone: [facility] 11-29-2024 15:45-0400 SaO2% (BldA) [Mass fraction] 97 % Mary Escobar MD Work Phone: [facility] 11-29-2024 15:45-0400 Systolic blood pressure 142 mm[Hg] Mary Escobar MD Work Phone: [facility] 11-29-2024 12:47-0400 Body height 162.56 cm Mary Escobar MD Work Phone: [facility] 11-29-2024 12:47-0400 Body mass index (BMI) [Ratio] 36 kg/m2 Mary Escobar MD Work Phone: [facility] 11-29-2024 12:47-0400 Body weight 95.2 kg Mary Escobar MD Work Phone: [facility] 10-22-2024 11:46-0400 Body weight 93.2 kg Mary Escobar MD Work Phone: [facility] 10-22-2024 11:17-0400 Body temperature 98.3 [degF] Mary Escobar MD Work Phone: [facility] 10-22-2024 11:17-0400 Diastolic blood pressure 63 mm[Hg] Mary Escobar MD Work Phone: [facility] 10-22-2024 11:17-0400 Heart rate 79 /min Mary Escobar MD Work Phone: [facility] 10-22-2024 11:17-0400 Respiratory rate 16 /min Mary Escobar MD Work Phone: [facility] 10-22-2024 11:17-0400 SaO2% (BldA) [Mass fraction] 98 % Mary Escobar MD Work Phone: [facility] 10-22-2024 11:17-0400 Systolic blood pressure 126 mm[Hg] Mary Escobar MD Work Phone: [facility] 10-16-2024 01:21-0400 Body mass index (BMI) [Ratio] 35.2 kg/m2 Mary Escobar MD Work Phone: [facility] 09-29-2024 10:24-0400 Body temperature 97.8 [degF] Mary Escobar MD Work Phone: [facility] 09-29-2024 10:24-0400 Diastolic blood pressure 93 mm[Hg] Mary Escobar MD Work Phone: [facility] 09-29-2024 10:24-0400 Heart rate 81 /min Mary Escobar MD Work Phone: [facility] 09-29-2024 10:24-0400 Respiratory rate 16 /min Mary Escobar MD Work Phone: [facility] 09-29-2024 10:24-0400 SaO2% (BldA) [Mass fraction] 99 % Mary Escobar MD Work Phone: [facility] 09-29-2024 10:24-0400 Systolic blood pressure 143 mm[Hg] Mary Escobar MD Work Phone: [facility] 09-29-2024 03:04-0400 Body mass index (BMI) [Ratio] 35.4 kg/m2 Mary Escobar MD Work Phone: [facility] 09-29-2024 03:04-0400 Body weight 94.1 kg Mary Escobar MD Work Phone: [facility] 09-26-2024 10:09-0400 Body height 162.56 cm Mary Escobar MD Work Phone: [facility] 09-25-2024 10:00-0400 Diastolic blood pressure 60 mm[Hg] Mary Escobar MD Work Phone: [facility] 09-25-2024 10:00-0400 Heart rate 79 /min Mary Escobar MD Work Phone: [facility] 09-25-2024 10:00-0400 Respiratory rate 16 /min Mary Escobar MD Work Phone: [facility] 09-25-2024 10:00-0400 SaO2% (BldA) [Mass fraction] 98 % Mary Escobar MD Work Phone: [facility] 09-25-2024 10:00-0400 Systolic blood pressure 130 mm[Hg] Mary Escobar MD Work Phone: [facility] 09-25-2024 09:34-0400 Body temperature 98 [degF] Mary Escobar MD Work Phone: [facility] 09-25-2024 04:05-0400 Body height 162.56 cm Mary Escobar MD Work Phone: [facility] 09-25-2024 04:05-0400 Body mass index (BMI) [Ratio] 34.7 kg/m2 Mary Escobar MD Work Phone: [facility] 09-25-2024 04:05-0400 Body weight 91.6 kg Mary Escobar MD Work Phone: [facility] 09-24-2024 08:00-0400 Body temperature 98.4 [degF] Mary Escobar MD Work Phone: [facility] 09-24-2024 08:00-0400 Diastolic blood pressure 84 mm[Hg] Mary Escobar MD Work Phone: [facility] 09-24-2024 08:00-0400 Heart rate 76 /min Mary Escobar MD Work Phone: [facility] 09-24-2024 08:00-0400 Respiratory rate 16 /min Mary Escobar MD Work Phone: [facility] 09-24-2024 08:00-0400 SaO2% (BldA) [Mass fraction] 96 % Mary Escobar MD Work Phone: [facility] 09-24-2024 08:00-0400 Systolic blood pressure 131 mm[Hg] Mary Escobar MD Work Phone: [facility] 09-24-2024 04:32-0400 Body height 162.56 cm Mary Escobar MD Work Phone: [facility] 09-24-2024 04:32-0400 Body mass index (BMI) [Ratio] 37.2 kg/m2 Mary Escobar MD Work Phone: [facility] 09-24-2024 04:32-0400 Body weight 98.4 kg Mary Escobar MD Work Phone: [facility] 2024 14:23-0400 Body temperature 98.1 [degF] Mary Escobar MD Work Phone: [facility] 2024 14:23-0400 Diastolic blood pressure 106 mm[Hg] Mary Escobar MD Work Phone: [facility] 2024 14:23-0400 Heart rate 78 /min Mary Escobar MD Work Phone: [facility] 2024 14:23-0400 Respiratory rate 16 /min Mary Escobar MD Work Phone: [facility] 2024 14:23-0400 SaO2% (BldA) [Mass fraction] 97 % Mary Escobar MD Work Phone: [facility] 2024 14:23-0400 Systolic blood pressure 161 mm[Hg] Mary Escobar MD Work Phone: [facility] 2024 03:45-0400 Body mass index (BMI) [Ratio] 41.2 kg/m2 Mary Escobar MD Work Phone: [facility] 2024 03:45-0400 Body weight 108.9 kg Mary Escobar MD Work Phone: [facility] 09-18-2024 21:52-0400 Inhaled oxygen flow rate 2 L/min Mary Escobar MD Work Phone: [facility] 09-18-2024 07:49-0400 Body height 162.56 cm Mary Escobar MD Work Phone: [facility] 09-12-2024 09:43-0400 Body temperature 98.2 [degF] Mary Escobar MD Work Phone: [facility] 09-12-2024 09:43-0400 Diastolic blood pressure 83 mm[Hg] Mary Escobar MD Work Phone: [facility] 09-12-2024 09:43-0400 Heart rate 91 /min Mary Escobar MD Work Phone: [facility] 09-12-2024 09:43-0400 Respiratory rate 19 /min Mary Escobar MD Work Phone: [facility] 09-12-2024 09:43-0400 SaO2% (BldA) [Mass fraction] 94 % Mary Escobar MD Work Phone: [facility] 09-12-2024 09:43-0400 Systolic blood pressure 130 mm[Hg] Mary Escobar MD Work Phone: [facility] 09-12-2024 06:52-0400 Body height 162.56 cm Mary Escobar MD Work Phone: [facility] 09-12-2024 06:52-0400 Body mass index (BMI) [Ratio] 35.6 kg/m2 Mary Escobar MD Work Phone: [facility] 09-12-2024 06:52-0400 Body weight 94.3 kg Mary Escobar MD Work Phone: [facility] 10-24-2023 16:02-0400 Body height 162.6 cm Nura Hodgson MD Work Phone: [facility] 10-24-2023 16:02-0400 Body mass index (BMI) [Ratio] 39.96 kg/m2 Nura Hodgson MD Work Phone: [facility] 10-24-2023 16:02-0400 Body temperature 97.2 [degF] Nura Hodgson MD Work Phone: [facility] 10-24-2023 16:02-0400 Body weight 105.6 kg Nura Hodgson MD Work Phone: [facility] 10-24-2023 16:02-0400 Diastolic blood pressure 100 mm[Hg] Nura Hodgson MD Work Phone: [facility] 10-24-2023 16:02-0400 Heart rate 88 /min Nura Hodgson MD Work Phone: [facility] 10-24-2023 16:02-0400 Systolic blood pressure 170 mm[Hg] Nura Hodgson MD Work Phone: [facility] 09-09-2023 12:28-0400 Body temperature 98.6 [degF] [facility] 09-09-2023 12:28-0400 Diastolic blood pressure 94 mm[Hg] [facility] 03-22-2024 12:28-0400 Heart rate 65 /min [facility] 09-09-2023 12:28-0400 Respiratory rate 16 /min [facility] 09-09-2023 12:28-0400 SaO2% (BldA) [Mass fraction] 98 % [facility] 09-09-2023 12:28-0400 Systolic blood pressure 170 mm[Hg] [facility] 09-09-2023 09:14-0400 Body height 162.56 cm [facility] 09-09-2023 09:14-0400 Body mass index (BMI) [Ratio] 37.9 kg/m2 [facility] 09-09-2023 09:14-0400 Body weight 100.3 kg [facility] 05-31-2023 12:45-0500 Body temperature 98.49 [degF] Nura Hodgson MD Work Phone: [facility] 05-31-2023 12:45-0500 Diastolic blood pressure 105 mm[Hg] Nura Hodgson MD Work Phone: [facility] 05-31-2023 12:45-0500 Heart rate 97 /min Nura Hodgson MD Work Phone: [facility] 05-31-2023 12:45-0500 Respiratory rate 20 /min Nura Hodgson MD Work Phone: [facility] 05-31-2023 12:45-0500 SaO2% (BldA) [Mass fraction] 94 % Nura Hodgson MD Work Phone: [facility] 05-31-2023 12:45-0500 Systolic blood pressure 173 mm[Hg] Nura Hodgson MD Work Phone: [facility] 04-11-2023 08:57-0400 Body temperature 96.91 [degF] Nura Hodgson MD Work Phone: [facility] 04-11-2023 08:57-0400 Diastolic blood pressure 114 mm[Hg] Nura Hodgson MD Work Phone: [facility] 04-11-2023 08:57-0400 Heart rate 87 /min Nura Hodgson MD Work Phone: [facility] [employer] 04-11-2023 08:57-0400 Respiratory rate 18 /min Nura Hodgson MD Work Phone: [facility] [facility] 04-11-2023 08:57-0400 SaO2% (BldA) [Mass fraction] 98 % Nura Hodgson MD Work Phone: [facility] [facility] 04-11-2023 08:57-0400 Systolic blood pressure 190 mm[Hg] Nura Hodgson MD Work Phone: [facility] [facility] 01-06-2023 09:27-0400 Body height 162.6 cm Daniella Mihalik DO Work Phone: [facility] 01-06-2023 09:27-0400 Body weight 102.78 kg Daniella Mihalik DO Work Phone: [facility] 01-06-2023 09:27-0400 Diastolic blood pressure 82 mm[Hg] Daniella Mihalik DO Work Phone: [facility] 01-06-2023 09:27-0400 Systolic blood pressure 140 mm[Hg] Daniella Mihalik DO Work Phone: [facility] 10-08-2022 10:30-0400 Body height 162.6 cm Selin Monson MD Work Phone: [facility] [facility] 10-08-2022 10:30-0400 Body mass index (BMI) [Ratio] 35.1 kg/m2 Selin Monson MD Work Phone: [facility] [facility] 10-08-2022 10:30-0400 Body temperature 97.81 [degF] Selin Monson MD Work Phone: [facility] [facility] 10-08-2022 10:30-0400 Body weight 92.76 kg Selin Monson MD Work Phone: [facility] [facility] 10-08-2022 10:30-0400 Diastolic blood pressure 81 mm[Hg] Selin Monson MD Work Phone: [facility] 10-08-2022 10:30-0400 Heart rate 81 /min Selin Monson MD Work Phone: [facility] 10-08-2022 10:30-0400 Systolic blood pressure 134 mm[Hg] Selin Monson MD Work Phone: [facility] 09-21-2022 13:44-0400 Body height 162.6 cm Nerissa Watson MD Work Phone: [facility] 09-21-2022 13:44-0400 Body weight 92.99 kg Nerissa Watson MD Work Phone: [facility] 09-21-2022 13:44-0400 Diastolic blood pressure 91 mm[Hg] Nerissa Watson MD Work Phone: [facility] 09-21-2022 13:44-0400 Systolic blood pressure 176 mm[Hg] Nerissa Watson MD Work Phone: [facility] 01-06-2022 15:21-0400 Body height 162.6 cm Nerissa Watson MD Work Phone: [facility] 01-06-2022 15:21-0400 Body weight 95.25 kg Nerissa Watson MD Work Phone: [facility] 01-06-2022 15:21-0400 Diastolic blood pressure 78 mm[Hg] Nerissa Watson MD Work Phone: [facility] 01-06-2022 15:21-0400 Systolic blood pressure 138 mm[Hg] Nerissa Watson MD Work Phone: [facility] Encounters Encounter Date Encounter Type Care Provider Facility Start: 03-30-2025 Non-patient / Non-visit Dr. Candelaria Noe MD [facility] Work Phone: Start: 03-29-2025 Non-patient / Non-visit Arturo Zaidi nd DO -[facility] Start: 03-29-2025 Non-patient / Non-visit Dr. Candelaria Noe MD -[facility] Work Phone: Start: 03-28-2025 Non-patient / Non-visit Arturo Zaidi nd DO -[facility] Start: 03-28-2025 Non-patient / Non-visit Dr. Candelaria Noe MD -[facility] Work Phone: Start: 03-27-2025 ambulatory Mary Escobar Facility:[facility] Start: 03-27-2025 End: 03-30-2025 Evaluation and management of inpatient Dr. Zak Carcamo DO -[facility] Work Phone: Start: 12-19-2024 End: 12-19-2024 E-mail encounter from caregiver Vitor Sims MD Work Phone: [facility] Start: 12-19-2024 End: 12-19-2024 Patient encounter procedure Vitor Sims MD Work Phone: [facility] Comment on above: [facility] Mammogram Start: 12-19-2024 End: 12-24-2024 Telephone encounter Vitor Sims MD Work Phone: [facility] Comment on above: Breast Problem Start: 12-12-2024 Encounter for other preprocedural examination [facility] Start: 11-29-2024 ambulatory Arturo Sotelo Facility :[facility] Start: 11-29-2024 Non-patient / Non-visit Arturo Zaidi nd DO -[facility] Start: 11-29-2024 Arturo Ashleigh DO -[facility] Start: 11-29-2024 End: 11-29-2024 Admission to same day surgery center Arturo Sotelo DO -Endoscopy Work Phone: Start: 11-29-2024 End: 11-29-2024 Arturo Sotelo DO -Endoscopy Work Phone: Start: 11-29-2024 End: 11-29-2024 ambulatory Mary Escobar MD Work Phone: [facility] Work Phone: Start: 10-22-2024 Dr. Niranjan Fostre -[facility] Work Phone: Start: 10-21-2024 Dr. Kris Gibbs [facility] Work Phone: Start: 10-20-2024 Dr. Kris Gibbs [facility] Work Phone: Start: 10-19-2024 [facility] Start: 10-19-2024 Dr. Kris Gibbs [facility] Work Phone: Start: 10-18-2024 [facility] Start: 10-18-2024 Dr. Kris Gibbs [facility] Work Phone: Start: 10-17-2024 [facility] Start: 10-17-2024 Dr. Kris Gibbs [facility] Work Phone: Start: 10-16-2024 End: 10-22-2024 Evaluation and management of inpatient Chalon Luz Facility:[facility] Start: 10-16-2024 End: 10-22-2024 Dr. Niranjan Noe MD -[facility] 3 Work Phone: Start: 10-16-2024 ambulatory Kris Gibbs Fac ility:[facility] Start: 10-04-2024 End: 10-04-2024 Daniella ARMSTRONG -[facility] Work Phone: Start: 10-04-2024 End: 10-04-2024 ambulatory Chalon Luz Facility:[facility] Start: 09-29-2024 Non-patient / Non-visit Dr. Charlotte Gibbs DO [facility] Work Phone: Start: 09-29-2024 Dr. Charlotte Gibbs DO [facility] Work Phone: Start: 09-28-2024 Non-patient / Non-visit Arturo Frie nd DO -[facility] Start: 09-28-2024 Arturo Friend DO -[facility] Start: 09-27-2024 Non-patient / Non-visit Arturo Zaidi nd DO -[facility] Start: 09-27-2024 Arturo Sotelo DO -[facility] Start: 09-27-2024 Non-patient / Non-visit Dr. Charlotte Gibbs DO -[facility] Work Phone: Start: 09-27-2024 Dr. Charlotte Gibbs DO [facility] Work Phone: Start: 09-26-2024 Non-patient / Non-visit Arturo Zaidi nd DO -[facility] Start: 09-26-2024 Arturo Sotelo DO -[facility] Start: 09-26-2024 Non-patient / Non-visit Dr. Charlotte Gibbs DO -[facility] Work Phone: Start: 09-26-2024 [facility] Work Phone: Start: 09-25-2024 Non-patient / [facility] Work [facility]: Start: 09-25-2024 ambulatory Charlotte Gibbs [facility] Start: 09-25-2024 End: 09-29-2024 Evaluation and management of inpatient Dr. Charlotte Gibbs DO -Intensive Care Unit Work Phone: Start: 09-25-2024 End: 09-29-2024 Dr. Charlotte Gibbs DO -[facility] 3 Work Phone: Start: 09-24-2024 End: 09-24-2024 Dr. Conner Landry MD -Emergency Department Work Phone: Start: 09-24-2024 End: 09-24-2024 Emergency department patient visit Mary Escobar MD Work Phone: -Emergency Department Work Phone: Start: 2024 Non-patient / Non-visit Dr. Sandoval [facility] Work Phone: Start: 2024 Dr. Kris Gibbs [facility] Work Phone: Start: 09-18-2024 Non-patient / Non-visit Arturo Hathawaye nd DO -[facility] Start: 09-18-2024 Arturo Friend DO -[facility] Start: 09-18-2024 End: 09-18-2024 Telephone encounter Nerissa Watson MD Work Phone: [facility] Comment on above: Missed Appointment ( No show) Start: 09-18-2024 Non-patient / Non-visit Dr. Sandoval [facility] Work Phone: Start: 09-18-2024 Dr. Kris Gibbs [facility] Work Phone: Start: 09-18-2024 End: 09-18-[address] [facility] Facility:[facility] Start: 09-18-2024 End: 09-18-2024 Non-patient / Non-visit Dr. Best Mary MD -[facility] Work Phone: Start: 09-18-2024 End: 09-18-2024 Dr. Best Mary MD -[facility] Work Phone: Start: 09-17-2024 Non-patient / Non-visit Arturo Zaidi nd DO -[facility] Start: 09-17-2024 Arturo Friend DO -[facility] Start: 09-17-2024 Non-patient / Non-visit Dr. Sandoval [facility] Work Phone: Start: 09-17-2024 Dr. Kris Gibbs DO [facility] Work Phone: Start: 09-16-2024 Non-patient / Non-visit Dr. Charlotte Gibbs DO [facility] Work Phone: Start: 09-16-2024 [facility] Work Phone: Start: 09-15-2024 Non-patient / Non-visit Dr. Charlotte Gibbs [facility] Work Phone: Start: 09-15-2024 [facility] Work Phone: Start: 09-14-2024 Non-patient / Non-visit Dr. Charlotte Gibbs [facility] Work Phone: Start: 09-14-2024 Dr. Charlotte Gibbs DO [facility] Work Phone: Start: 09-13-2024 Non-patient / Non-visit Dr. Charlotte Gibbs [facility] Work Phone: Start: 09-13-2024 Dr. Charlotte Gibbs [facility] Work Phone: Start: 09-12-2024 Non-patient / Non-visit Dr. Charlotte Gibbs [facility] Work Phone: Start: 09-12-[address] [facility] Facility:[facility] Start: 09-12-2024 End: 2024 Evaluation and management of inpatient Dr. Charlotte Gibbs -Progressive Care Unit Work Phone: Start: 09-12-2024 End: 2024 Dr. Krsi Gibbs DO -Progressive Care Unit Work Phone: Start: 05-18-2024 End: 05-18-2024 Patient encounter procedure Dr. Mary Escobar MD -Laboratory, [place] Work Phone: Start: 05-18-2024 End: 05-18-[address] [facility] Facility:[facility] Start: 03-26-2024 End: 03-26-2024 Ronald Hodgson MD Work Phone: [facility] Comment on above: Anxiety and depressi on Start: 03-25-2024 End: 03-26-2024 Refill Nura Hodgson MD Work Phone: [facility] Comment on above: Primary hypertension Start: 12-08-2023 Telephone encounter Nerissa Munoz MD Work Phone: [facility] Obstetrics and Gynecology Comment on above: Missed Appointment ( No show) Start: 10-24-2023 End: 10-24-2023 Office outpatient visit 15 minutes Chanle Laboy MD Work Phone: [facility] Comment on above: Anxiety and depressi on (Primary Dx); Primary hypertension; Encounter for screening for HIV; Encounter for HCV screening test for low risk patient Start: 10-24-2023 End: 10-24-2023 ambulatory CHANEL LABOY [facility] Start: 09-09-2023 End: 09-09-2023 Emergency department patient visit [facility]-Emergency Department Work Phone: Start: 05-31-[address]23 [address] RN [facility] Clinical Communication Start: 05-31-2023 Patient encounter procedure Britta Harry RN [facility] Clinical Communication Start: 05-31-2023 End: 05-31-2023 Emergency department patient visit NURAEMILY HODGSON [facility] Comment on above: Influenza A (Primary Dx); Acute cough; Strain of thoracic back region Start: 04-11-2023 End: 04-11-2023 Emergency department patient visit NURA HODGSON [facility] ED Comment on above: COVID-19 (Primary Dx ) Start: 02-15-2023 Telephone encounter Nura Garza i, MD Work Phone: [facility] Start: 01-24-2023 End: 01-24-2023 Patient encounter procedure Nerissa Watson MD Work Phone: [facility] Obstetrics and Gynecology Comment on above: High grade squamous intraepithelial lesion (HGSIL), grade 3 DIONNE, on biopsy of cervix (Primary Dx); S/P LEEP Start: 01-06-2023 Telephone encounter Nerissa Munoz MD Work Phone: [facility] Obstetrics and Gynecology Comment on above: Return To Work Jabier lund Start: 01-06-2023 End: 01-06-2023 Patient encounter procedure Daniella Hidalgo DO Work Phone: [facility] Obstetrics and Gynecology Comment on above: High grade squamous intraepithelial lesion (HGSIL), grade 3 DIONNE, on biopsy of cervix (Primary Dx); HPV vaccine counseling; Pre-op exam Start: 01-06-2023 End: 01-06-2023 Preprocedural examination done Daniella Hidalgo DO Work Phone: [facility] Work Phone: Start: 01-03-2023 Telephone encounter Nerissa Munoz MD Work Phone: [facility] Obstetrics and Gynecology Comment on above: Results Start: 12-24-2022 Patient encounter status Nerissa Watson MD Work Phone: [facility] Work Phone: Start: 12-03-2022 Patient encounter procedure [facility] Provider [facility] Department Start: 12-02-2022 Patient encounter procedure [facility] Provider [facility] Department Start: 10-12-2022 Documentation procedure Mammog katie Coordinator [facility] Start: 10-12-2022 Letter encounter Mammography Coordinator [place] [facility] NOT LISTED Start: 10-12-2022 Telephone encounter Nerissa Munoz MD Work Phone: [facility] Obstetrics and Gynecology Comment on above: Orders Start: 10-08-2022 ambulatory Janet Barnes RN [facility] Clinical Communication Start: 10-08-2022 Patient encounter procedure Janet Barnes RN [facility] Clinical Communication Start: 10-08-2022 End: 10-08-2022 Office outpatient visit 15 minutes Sharona Thomas MD Work Phone: [facility] Comment on above: Eye injury, unspecif ied laterality, initial encounter (Primary Dx) Start: 09-21-2022 End: 09-21-2022 Patient encounter procedure Nerissa Watson MD Work Phone: [facility] Obstetrics and Gynecology Comment on above: Screening for malign ant neoplasm of cervix (Primary Dx); Encounter for gynecological examination (general) (routine) without abnormal findings; Encounter for routine checking of intrauterine contraceptive device (IUD); Encounter for screening mammogram for malignant neoplasm of breast Start: 09-21-2022 End: 09-21-2022 Patient encounter status Nerissa Watson MD Work Phone: [facility] Obstetrics and Gynecology Start: 2022 Ronald Guzmán MD Work Phone: [facility] Comment on above: Anxiety disorder, un specified Start: 09-02-2022 ambulatory Griselda Aguila RN [facility] Clinical Communication Start: 09-02-2022 Patient encounter procedure Griselda Aguila RN [facility] Clinical Communication Start: 03-05-2022 ambulatory [facility] Start: 01-06-2022 End: 01-06-2022 Patient encounter procedure Nerissa Watson MD Work Phone: [facility] Obstetrics and Gynecology Comment on above: Breakthrough bleedin g with IUD (Primary Dx); Pelvic cramping Start: 08-11-2021 ambulatory [facility] Start: 07-28-2021 ambulatory [facility] Start: 07-28-2021 End: 07-28-2021 Subsequent hospital visit by physician Sharona Thomas MD Work Phone: [facility] Start: 07-21-2021 End: 07-21-2021 Emergency department patient visit [facility] Start: 07-10-2021 ambulatory [facility] Start: 06-28-2021 End: 07-04-2021 Evaluation and management of inpatient [facility] Start: 09-27-2018 Patient encounter procedure ESTRADA (VENEER STACKER) LINZEY Facility:[facility] Start: 09-26-2018 Patient encounter procedure ESTRADA (VENEER STACKER) LINZEY Facility:[facility] Start: 06-19-2018 End: 06-20-2018 Patient encounter procedure ESTRADA (VENEER STACKER) LINZEY Facility:[facility] Start: 05-12-2018 End: 05-13-2018 Patient encounter procedure ESTRADA (VENEER STACKER) LINZEY Facility:[facility] Start: 05-01-2018 Patient encounter procedure ESTRADA (VENEER STACKER) LINZEY Facility:[facility] Start: 04-28-2018 Patient encounter procedure KATIA Ferris COLA Facility:[facility] Start: 03-27-2018 End: 03-28-2018 Patient encounter procedure ESTRADA (VENEER STACKER) LINZEY Facility:[facility] Start: 03-15-2018 End: 03-15-2018 Patient encounter procedure ESTRADA (VENEER STACKER) LINZEY Facility:[facility] Start: 03-08-2018 End: 03-09-2018 Emergency department patient visit ESTRADA (VENEER STACKER) LINZEY Facility:[facility] Start: 03-07-2018 End: 03-07-2018 Emergency department patient visit ESTRADA (VENEER STACKER) LINZEY Facility:[facility] Start: 03-07-2018 End: 03-08-2018 Patient encounter procedure ESTRADA (VENEER STACKER) LINZEY Facility:[facility] Start: 03-06-2018 Emergency department patient visit [facility] Start: 01-25-2018 End: 01-26-2018 Patient encounter procedure ESTRADA (VENEER STACKER) LINZEY Facility:[facility] Start: 01-23-2018 Emergency department patient visit UNKNOWN ZULLY [facility] Start: 10-20-2017 End: 10-20-2017 Patient encounter procedure KATIA Josy COLA Facility:[facility] Start: 10-19-2017 Patient encounter procedure KATIA M COLA Facility:[facility] Start: 10-17-2017 Patient encounter procedure KATIA M COLA Facility:[facility] Start: 09-09-2017 Patient encounter status Nerissa Watson MD Work Phone: [facility] Work Phone: Procedures Date Procedure Procedure Detail Performing Clinician Start: 03-30-2025 Estimated creatinine clearance Mary ávsquez MD Work Phone: Start: 03-29-2025 Serum inorganic phosphate measurement Mary Escobar MD Work Phone: Start: 03-28-2025 Magnetic resonance cholangiopancreatography Mary Escobar MD Work Phone: Start: 03-27-2025 Ct abdomen & pelvis w/contrast material Mary Escobar MD Work Phone: Start: 03-27-2025 Urnls dip stick/tablet reagent auto microscopy Mary Escobar MD Work Phone: Start: 03-27-2025 Estimated creatinine clearance Mary vásquez MD Work Phone: Start: 11-29-2024 Fluoroscopic guidance Mary Escobar MD Work Phone: Start: 11-29-2024 Fluoroscopy guided endoscopic retrograde cholangiopancreatography Mary Escobar MD Work Phone: Start: 11-29-2024 Endoscopic retrograde cholangiopancreatography Mary Escobar MD Work Phone: Start: 10-22-2024 Estimated creatinine clearance Mary vásquez MD Work Phone: Start: 10-22-2024 Mean corpuscular hemoglobin concentration determination Mary Escobar MD Work Phone: Start: 10-22-2024 Platelet mean volume determination Mary Escobar MD Work Phone: Start: 10-20-2024 Computed tomography of abdomen and pelvis with intravenous contrast Mary Escobar MD Work Phone: Start: 10-18-2024 Blood culture Mary Escobar MD Work Phone: Start: 10-18-2024 Urine culture Mary Escobar MD Work Phone: Start: 10-18-2024 X-ray of chest, PA and lateral views Mary Escobar MD Work Phone: Start: 10-18-2024 Urine microscopy: red cells Mary Escobar MD Work Phone: Start: 10-18-2024 Urnls dip stick/tablet reagent auto microscopy Mary Escobar MD Work Phone: Start: 10-17-2024 Assay of lactate Mary Escobar MD Work Phone: Start: 10-17-2024 Procedure Mary Escobar MD Work Phone: Start: 10-17-2024 Triacylglycerol lipase measurement Mary Escobar MD Work Phone: Start: 10-16-2024 Blood count smear mcrscp w/mnl difrntl wbc count Mary Escobar MD Work Phone: Start: 10-16-2024 Nucleated red blood cell count procedure Mary Escobar MD Work Phone: Start: 10-16-2024 Procedure Mary Escobar MD Work Phone: Start: 10-15-2024 Computed tomography of abdomen and pelvis with intravenous contrast Mary Escobar MD Work Phone: Start: 09-28-2024 Blood count smear mcrscp w/mnl difrntl wbc count Mary Escobar MD Work Phone: Start: 09-28-2024 Estimated creatinine clearance Mary vásquez MD Work Phone: Start: 09-28-2024 Mean corpuscular hemoglobin concentration determination Mary Escobar MD Work Phone: Start: 09-28-2024 Nucleated red blood cell count procedure Mary Escobar MD Work Phone: Start: 09-28-2024 Platelet mean volume determination Mary Escobar MD Work Phone: Start: 09-27-2024 Procedure Mary Escobar MD Work Phone: Start: 09-26-2024 Serum inorganic phosphate measurement Mary Escobar MD Work Phone: Start: 09-25-2024 Urine microscopy: red cells Mary Escobar MD Work Phone: Start: 09-25-2024 Urnls dip stick/tablet reagent auto microscopy Mary Escobar MD Work Phone: Start: 09-25-2024 Assay of lactate Mary Escobar MD Work Phone: Start: 09-25-2024 Triacylglycerol lipase measurement Mary Escobar MD Work Phone: Start: 09-24-2024 Computed tomography of abdomen and pelvis with intravenous contrast Mary Escobar MD Work Phone: Start: 09-24-2024 Urine microscopy: red cells Mary Escobar MD Work Phone: Start: 09-24-2024 Urnls dip stick/tablet reagent auto microscopy Mary Escobar MD Work Phone: Start: 09-24-2024 Blood count smear mcrscp w/mnl difrntl wbc count Mary Escobar MD Work Phone: Start: 09-24-2024 Estimated creatinine clearance Mary vásquez MD Work Phone: Start: 09-24-2024 Mean corpuscular hemoglobin concentration determination aMry Escobar MD Work Phone: Start: 09-24-2024 Nucleated red blood cell count procedure Mary Escobar MD Work Phone: Start: 09-24-2024 Platelet mean volume determination Mary Escobar MD Work Phone: Start: 2024 Estimated creatinine clearance Mary vásquez MD Work Phone: Start: 09-18-2024 End: 09-18-2024 Endoscopic retrograde cholangiopancreatography Mary Escobar MD Work Phone: Start: 09-18-2024 Fluoroscopic guidance Mary Escobar MD Work Phone: Start: 09-18-2024 Albumin/Globulin ratio Mary Escobar MD Work Phone: Start: 09-18-2024 Antibody measurement Mary Escobar MD Work Phone: Start: 09-18-2024 Antibody to centromere measurement Mary Escobar MD Work Phone: Start: 09-18-2024 Antibody to extractable nuclear antigen measurement Mary Escobar MD Work Phone: Start: 09-18-2024 Antibody to BRIANDA-1 measurement Mary Escobar MD Work Phone: Start: 09-18-2024 Antibody to lupus La protein measurement Mary Escobar MD Work Phone: Start: 09-18-2024 Antibody to SS-A measurement Mary Escobar MD Work Phone: Start: 09-18-2024 Autoantibody measurement Mary Escobar MD Work Phone: Start: 09-18-2024 Endomysial antibody IgA level Mary vazquez MD Work Phone: Start: 09-18-2024 Ammy-Santillan virus capsid IgG measurement Mary Escobar MD Work Phone: Start: 09-18-2024 Ammy-Santillan virus serologic test Mary Escobar MD Work Phone: Start: 09-18-2024 Gliadin antibody, IgA measurement Mary Escobar MD Work Phone: Start: 09-18-2024 Gliadin antibody, IgG measurement Mary Escobar MD Work Phone: Start: 09-18-2024 Immunoglobulin G subclass, G4 measurement Mary Escobar MD Work Phone: Start: 09-18-2024 Immunoglobulin M measurement Mary Escobar MD Work Phone: Start: 09-18-2024 Mean corpuscular hemoglobin concentration determination Mary Escobar MD Work Phone: Start: 09-18-2024 Measurement of fungal antibody Mary vásquez MD Work Phone: Start: 09-18-2024 Platelet mean volume determination Mary Escobar MD Work Phone: Start: 09-18-2024 Procedure Mary Escobar MD Work Phone: Start: 09-18-2024 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 Mary Escobar MD Work Phone: Start: 09-17-2024 X-ray for foreign body of both orbits Mary Escobar MD Work Phone: Start: 09-17-2024 Assay of triglycerides Mary Escobar MD Work Phone: Start: 09-17-2024 Magnetic resonance cholangiopancreatography Mary Escobar MD Work Phone: Start: 09-17-2024 Blood count smear mcrscp w/mnl difrntl wbc count Mary Escobar MD Work Phone: Start: 09-17-2024 Nucleated red blood cell count procedure Mary Escobar MD Work Phone: Start: 09-17-2024 Serum inorganic phosphate measurement Mary Escobar MD Work Phone: Start: 09-16-2024 Computed tomography of abdomen and pelvis with contrast Mary Escobar MD Work Phone: Start: 09-16-2024 Triacylglycerol lipase measurement Mary Escobar MD Work Phone: Start: 09-12-2024 Benzodiazepine measurement, urine Mary Escobar MD Work Phone: Start: 09-12-2024 Cocaine measurement, urine Mary Burris Work Phone: Start: 09-12-2024 Methadone measurement, urine Mary Escobar MD Work Phone: Start: 09-12-2024 Urine cannabinoid measurement Mary vazquez MD Work Phone: Start: 09-12-2024 Urine microscopy: red cells Mary Escobar MD Work Phone: Start: 09-12-2024 Urine opiate measurement Mary Escobar MD Work Phone: Start: 09-12-2024 Urnls dip stick/tablet reagent auto microscopy Mary Escobar MD Work Phone: Start: 09-12-2024 Computed tomography of abdomen and pelvis with intravenous contrast Mary Escobar MD Work Phone: Start: 05-31-2023 Basic metabolic panel calcium total 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 - [employer] Work Phone: Start: 05-31-2023 Ecg routine ecg w/least 12 lds trcg only w/o i&r 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 - [facility] Work Phone: Start: 05-31-2023 Radiologic exam chest 2 views Yony decker [facility] Work Phone: Start: 05-31-2023 Urinalysis complete panel - Urine Yony Morrison [facility] [employer] [facility] Work Phone: Start: 05-31-2023 Urine test visual color cmprsn meths Yony Morrison [facility] Work Phone: Start: 05-31-2023 Urnls dip stick/tablet reagent auto microscopy Yony Morrison [facility] [employer] [facility] Work Phone: Start: 05-31-2023 SARS-COV-2, FLU A/B, AND RSV COMBO Yony Morrison [facility] Work Phone: Start: 04-11-2023 SARS-COV-2, FLU A/B, AND RSV COMBO Sharlene Crovlad PA-C Work Phone: Start: 04-11-2023 Radiologic exam chest single view Sharlene Crock PA-C Work Phone: Start: 10-11-2022 Mammography Nerissa Watson MD Work Phone: Start: 09-21-2022 Microscopic observation [Identifier] in Cervix by Cyto stain Janet Barnes RN H/O: surgery History of sphincterotomy of sphincter of Oddi Mary Escobar MD Work Phone: Plan of Treatment Date Care Activity Detail Author Start: 2040 RSV Immunization aged 60 or older (1 - 1-dose 60+ series) RSV Immunization aged 60 or older (1 - 1-dose 60+ series) [facility] Start: 09-08-2033 DTaP/Tdap/Td Vaccines (3 - Td or Tdap) DTaP/Tdap/Td Vaccines (3 - Td or Tdap) [facility] Start: 2030 Zoster Vaccines (1 of 2) Zoster Vaccines (1 of 2) [facility] Start: 02-02-2028 DTaP/Tdap/Td vaccine (2 - Td or Tdap) DTaP/Tdap/Td vaccine (2 - Td or Tdap) [facility] Start: 02-02-2028 DTaP/Tdap/Td Vaccines (2 - Td or Tdap) DTaP/Tdap/Td Vaccines (2 - Td or Tdap) [facility] Start: 02-02-2028 Urine microalbumin profile DTaP,Tdap,Td Vaccine (2 - T d or Tdap) [facility] Start: 09-22-2027 HPV TESTING HPV TESTING [facility] Start: 09-22-2027 PAP TESTING PAP TESTING [facility] Start: 09-21-2025 Screening for malignant neoplasm of cervix [facility] Start: 03-30-2025 Patient discharge [facility] Start: 03-28-2025 Triacylglycerol lipase measurement [facility] Start: 03-27-2025 Following clinical pathway protocol [facility] Start: 03-27-2025 Aspiration precautions [facility] Start: 03-27-2025 Assessment of risk of venous thromboembolism [facility] Start: 03-27-2025 Insertion of catheter into peripheral vein [facility] Start: 03-27-2025 Measuring intake and output [facility] Start: 03-27-2025 Providing care according to standard [facility] Start: 03-27-2025 Provision of activity privileges [facility] Start: 03-27-2025 Referral to gastroenterology service [facility] Start: 03-27-2025 Referral to service [facility] Start: 03-27-2025 [facility] Start: 03-27-2025 Thyroid stimulating hormone measurement [facility] Start: 03-27-2025 Verification routine [facility] Start: 03-27-2025 Admission procedure [facility] Start: 03-27-2025 Hospital admission, emergency, from emergency room, medical nature [facility] Start: 02-18-2025 Influenza vaccination Influenza Vaccine (#1) [facility] Start: 11-29-2024 Ercp remove calculi/debris biliary/pancreas duct ERCP REMOVE DUCT CALCULI [facility] Start: 11-29-2024 Ercp remove foreign body/stent biliary/panc duct ERCP REMOVE FORGN BODY DUCT [facility] Start: 11-29-2024 Ercp w/sphincterotomy/papillotomy ENDO CHOLANGIOPANCREATOGRAPH [facility] Start: 11-29-2024 Endoscopic retrograde cholangiopancreatography [facility] Start: 11-29-2024 RF Guidance for endoscopy of Biliary ducts and Pancreatic duct-- W contrast retrograde [facility] Start: 11-29-2024 Electrocardiographic procedure [facility] Start: 11-29-2024 Patient discharge [facility] Start: 10-22-2024 [facility] Start: 10-22-2024 Patient discharge [facility] Start: 10-16-2024 Referral to gastroenterology service [facility] Start: 10-16-2024 [facility] Start: 10-16-2024 Following clinical pathway protocol [facility] Start: 10-16-2024 Ambulation without limitation [facility] Start: 10-16-2024 Assessment of risk of venous thromboembolism [facility] Start: 10-16-2024 Insertion of catheter into peripheral vein [facility] Start: 10-16-2024 Providing care according to standard [facility] Start: 10-16-2024 [facility] Start: 10-16-2024 Admission procedure [facility] Start: 09-29-2024 Patient discharge [facility] Start: 09-27-2024 Following clinical pathway protocol [facility] Start: 09-26-2024 [facility] Start: 09-25-2024 Following clinical pathway protocol [facility] Start: 09-25-2024 Assessment of risk of venous thromboembolism [facility] Start: 09-25-2024 Care regimes management [facility] Start: 09-25-2024 Inhalation therapy procedure [facility] Start: 09-25-2024 Insertion of catheter into peripheral vein [facility] Start: 09-25-2024 Measuring intake and output [facility] Start: 09-25-2024 Notification of physician [facility] Start: 09-25-2024 Oxygen therapy [facility] Start: 09-25-2024 Providing care according to standard [facility] Start: 09-25-2024 Provision of activity privileges [facility] Start: 09-25-2024 Referral to gastroenterology service [facility] Start: 09-25-2024 End: 09-25-2024 [facility] Start: 09-25-2024 Verification routine [facility] Start: 09-25-2024 Admission procedure [facility] Start: 09-25-2024 Hospital admission, emergency, from emergency room, medical nature [facility] Start: 09-24-2024 [facility] Start: 2024 Patient discharge [facility] Start: 09-17-2024 Cytomegalovirus IgG antibody measurement [facility] Start: 09-17-2024 Cytomegalovirus IgM antibody assay [facility] Start: 09-17-2024 Immunoglobulin measurement [facility] Start: 09-17-2024 Laboratory test [facility] Start: 09-17-2024 Serum immunofixation [facility] Start: 09-17-2024 [facility] Start: 09-17-2024 Referral to gastroenterology service [facility] Start: 09-15-2024 End: 09-15-2024 [facility] Start: 09-12-2024 Following clinical pathway protocol [facility] Start: 09-12-2024 Ambulation without limitation [facility] Start: 09-12-2024 Assessment of risk of venous thromboembolism [facility] Start: 09-12-2024 Insertion of catheter into peripheral vein [facility] Start: 09-12-2024 Measuring intake and output [facility] Start: 09-12-2024 Providing care according to standard [facility] Start: 09-12-2024 Referral to service [facility] Start: 09-12-2024 End: 09-12-2024 [facility] Start: 09-12-2024 Hospital admission, emergency, from emergency room, medical nature [facility] Start: 09-12-2024 Verification routine [facility] Start: 09-12-2024 Admission procedure [facility] Start: 09-12-2024 End: 09-12-2024 [facility] Start: 06-30-2024 Diabetes mellitus screening Diabetes Screening [facility] Start: 06-30-2024 Diabetes screen Diabetes screen [facility] Start: 04-25-2024 Depression Monitoring Depression Monitoring [facility] Start: 02-19-2024 COVID-19 Vaccine ( season) COVID-19 Vaccine () [facility] Start: 02-19-2024 Covid-19 Vaccine (3 - 2024-25 season) Covid-19 Vaccine ( season) [facility] Start: 02-19-2024 Influenza vaccination [facility] Start: 11-23-2023 End: 11-23-2023 Patient encounter procedure 11/23/2023 3:15 PM EDT Office Visit [facility] [address] [place] [id number] Jamila Euceda MD [address] [place] [address] [facility] Start: 10-24-2023 End: 10-23-2024 25-hydroxyvitamin D3 [Mass/volume] in Serum or Plasma Vitamin D Deficiency Screening (Vit D 25) Lab Routine Anxiety and depression Expected: 10/24/2023 (Approximate), Expires: 10/23/2024 [facility] Comment on above: Expected: 10/24/2023 (Approximate), Expi res: 10/23/2024 Start: 10-24-2023 End: 10-23-2024 CBC W Auto Differential panel - Blood CBC auto differential Lab Routine Primary hypertension Expected: 10/24/2023 (Approximate), Expires: 10/23/2024 [facility] Work Phone: Comment on above: Expected: 10/24/2023 (Approximate), Expi res: 10/23/2024 Start: 10-24-2023 End: 10-23-2024 Comprehensive metabolic 1998 panel - Serum or Plasma Comprehensive metabolic panel Lab Routine Primary hypertension Expected: 10/24/2023 (Approximate), Expires: 10/23/2024 [facility] Comment on above: Expected: 10/24/2023 (Approximate), Expi res: 10/23/2024 Start: 10-24-2023 End: 10-23-2024 Hepatitis C virus Ab [Presence] in Serum or Plasma by Immunoassay Hepatitis C antibody Lab Routine Encounter for HCV screening test for low risk patient Expected: 10/24/2023 (Approximate), Expires: 10/23/2024 [facility] Comment on above: Expected: 10/24/2023 (Approximate), Expi res: 10/23/2024 Start: 10-24-2023 End: 10-23-2024 HIV 1+2 Ab+HIV1 p24 Ag [Presence] in Serum or Plasma by Immunoassay HIV-1 and HIV-2 Antigen-Antibody Screen Lab Routine Encounter for screening for HIV Expected: 10/24/2023 (Approximate), Expires: 10/23/2024 [facility] Comment on above: Expected: 10/24/2023 (Approximate), Expi res: 10/23/2024 Start: 10-24-2023 End: 10-23-2024 Lipid 1996 panel - Serum or Plasma Lipid panel Lab Routine Primary hypertension Expected: 10/24/2023 (Approximate), Expires: 10/23/2024 [facility] Comment on above: Expected: 10/24/2023 (Approximate), Expi res: 10/23/2024 Start: 10-24-2023 End: 10-23-2024 Microalbumin/Creatinine panel in random Urine Microalbumin / creatinine, urine ratio Lab Routine Primary hypertension Expected: 10/24/2023 (Approximate), Expires: 10/23/2024 [facility] Comment on above: Expected: 10/24/2023 (Approximate), Expi res: 10/23/2024 Start: 10-12-2023 Mammography MAMMOGRAM [facility] Start: 10-12-2023 Screening for malignant neoplasm of breast Mammogram Screening [facility] Start: 09-22-2023 Screening for malignant neoplasm of cervix Cervical Cancer Screening [facility] Start: 09-09-2023 [facility] Start: 04-09-2023 Depresssion Monitoring Depresssion Monitoring [facility] Start: 03-07-2023 End: 03-07-2023 Patient encounter procedure 03/07/2023 3:30 PM EDT Office Visit [address] [phone] Ortiz Costa MD [address] [place] [address] [id number] [facility] Start: 02-18-2023 COVID-19 Vaccine () COVID-19 Vaccine () [facility] Start: 02-18-2023 Influenza vaccination [facility] Start: 01-06-2023 End: 01-07-2024 SONOHYSTEROGRAPHY (SIS) US WHI SONOHYSTEROGRAPHY (SIS) US I Anc Imaging Routine Pre-op exam Expected: 01/06/2023, Expires: 01/07/2024 [facility] Work Phone: Comment on above: Expected: 01/06/2023, Expires: Start: 09-09-2022 PAP TESTING PAP TESTING [facility] Start: 07-21-2022 Creatinine measurement Creatinine monitoring [facility] Start: 07-21-2022 Potassium monitoring Potassium monitoring [facility] Start: 07-10-2022 Depression Screen Depression Screen [facility] Start: 07-10-2022 Influenza vaccination Flu vaccine (#1) [facility] Comment on above: Postponed from 02/18/2021 (Patient Refus ed) Start: 02-18-2022 Influenza vaccination [facility] Start: 08-11-2021 End: 08-11-2021 Patient encounter procedure 08/11/2021 Office Visit Family Medicine Marcello Castro MD [address] [place] [address] [facility] Start: 11-24-2020 COVID-19 Vaccine (2 - Booster for Michela series) COVID-19 Vaccine (2 - Booster for Michela series) [facility] Start: 2020 Lipid panel Lipid screen [facility] Start: 2020 Mammography MAMMOGRAM [facility] Start: 2020 Screening for malignant neoplasm of breast Mammogram [facility] Start: 2010 HPV TESTING HPV TESTING [facility] Start: 2010 Screening for malignant neoplasm of cervix [facility] Start: 2001 Screening for malignant neoplasm of cervix Pap smear [facility] Start: 09-20-1999 Hepatitis A Vaccines (1 of 2 - Risk 2-dose series) Hepatitis A Vaccines (1 of 2 - Risk 2-dose series) [facility] Start: 09-20-1999 Hepatitis B Vaccine (1 of 3 - 19+ 3-dose series) Hepatitis B Vaccine (1 of 3 - 19+ 3-dose series) [facility] Start: 09-20-1999 Hepatitis B Vaccines (1 of 3 - 19+ 3-dose series) Hepatitis B Vaccines (1 of 3 - 19+ 3-dose series) [facility] Start: 09-20-1999 Urine microalbumin profile DTAP,TDAP,TD (1 - Tdap) [facility] Start: 1998 HEPATITIS C SCREENING HEPATITIS C SCREENING [facility] Start: 1998 Hepatitis C screening Hepatitis C Screening [facility] Start: 1998 HIV SCREENING HIV SCREENING [facility] Start: 1998 HIV screening HIV Screening [facility] Start: 09-20-1995 HIV screening HIV screen [facility] Start: 1981 Hepatitis A Vaccines (1 of 2 - Risk 2-dose series) Hepatitis A Vaccines (1 of 2 - Risk 2-dose series) [facility] Start: 1981 MMR Vaccines (1 of 1 - Standard series) MMR Vaccines (1 of 1 - Standard series) [facility] Start: 1981 Varicella vaccination Varicella Vaccines (1 of 2 - 2-dose childhood series) [facility] Start: 1980 HEPATITIS B (1 of 3 - 3-dose series) HEPATITIS B (1 of 3 - 3-dose series) [facility] Start: 1980 Hepatitis B Vaccines (1 of 3 - 3-dose series) Hepatitis B Vaccines (1 of 3 - 3-dose series) [facility] Start: 1980 Hepatitis C screening Hepatitis C screen [facility] Start: 1980 HIV screening HIV Screening [facility] Start: 1980 Lipid panel Lipid Panel [facility] 9vhpv vacc 2/3 dose sched im use HPV VACCINE, 9-VALENT (GARDASIL 9) Immunization/Injection Routine High grade squamous intraepithelial lesion (HGSIL), grade 3 DIONNE, on biopsy of cervix HPV vaccine counseling Ordered: 01/06/2023 [facility] Work Phone: Comment on above: Ordered: 01/06/2023 Albumin [Moles/volum e] in Serum or Plasma [facility] Ag 19-9 [Unit s/volume] in Serum or Plasma [facility]ac [facility] Chitobioside IgA Ab [Units/volume] in Serum or Plasma by Immunoassay [facility] Cytomegalovirus IgG antibody measurement [facility] Cytomegalovirus IgM antibody assay [facility] End: 01-18-2026 DBT Breast - bilateral diagnostic for implant DEL DIAG W [place]ALL[place] BILATERAL Radiology Routine Abnormality of left breast on screening mammogram 1 Occurrences starting 12/19/2024 until 01/18/2026 [facility] Work Phone: Comment on above: 1 Occurrences starting 12/19/2024 until 01/18/2026 Electrophoresis: [id number] [facility] Electrophoresis: tino ma globulin [facility] Ammy Santillan virus c apsid IgG Ab [Units/volume] in Serum [facility] Ammy Santillan virus c apsid IgM Ab [Units/volume] in Serum [facility] Ammy Santillan virus n uclear IgG Ab [Units/volume] in Cerebral spinal fluid [facility] Ammy-Santillan virus s erologic test [facility] Ferritin [Mass/volum e] in Serum or Plasma [facility] Gliadin peptide IgA Ab [Units/volume] in Serum [facility] Gliadin peptide IgG Ab [Units/volume] in Serum [facility] Globulin measurement [facility] Hemoglobin A1c/Hemoglobin.total in Blood [facility] IgA [Mass/volume] in Serum or Plasma [facility] IgE [Units/volume] i n Serum or Plasma [facility] IgG [Mass/volume] in Serum or Plasma [facility] IgG subclass 1 [Mass /volume] in Serum [facility] IgG subclass 2 [Mass /volume] in Serum [facility] IgG subclass 3 [Mass /volume] in Serum [facility] IgG subclass 4 [Mass /volume] in Serum [facility] IgM [Mass/volume] in Serum or Plasma [facility] Iron [Mass/mass] in Unspecified specimen [facility] Laboratory data interpretation [facility] Laminaribioside IgG Ab [Units/volume] in Serum or Plasma by Immunoassay [facility] Magnesium measurement [facility] End: 11-11-2023 DEL DIAGNOSTIC LEFT DEL DIAGNOSTIC LEFT Radiology Routine Abnormal mammogram 1 Occurrences starting 10/12/2022 until 11/11/2023 [facility] Work Phone: Comment on above: 1 Occurrences starting 10/12/2022 until 11/11/2023 End: 10-21-2023 DEL SCREENING DEL SCREENING Radiology Routine Encounter for screening mammogram for malignant neoplasm of breast 1 Occurrences starting 09/21/2022 until 10/21/2023 [facility] Work Phone: Comment on above: 1 Occurrences starting 09/21/2022 until 10/21/2023 Mannobioside IgG Ab [Units/volume] in Serum or Plasma by Immunoassay [facility] Measurement of funga l antibody [facility] Measurement of immun oglobulin A in serum specimen [facility] Microscopic urinalysis [facility] Neutrophil cytoplasm ic Ab.classic [Units/volume] in Serum [facility] Neutrophil cytoplasm ic Ab.perinuclear.atypical [Titer] in Serum by Immunofluorescence [facility] Organism count, micr oscopic method [facility] P-ANCA measurement [facility] PAP TEST PAP TEST Lab Rou judy Screening for malignant neoplasm of cervix Ordered: 09/21/2022 [facility] Work Phone: Comment on above: Ordered: 09/21/2022 Patient Education [facility] Work Phone: Patient referral [facility] Work Phone: PELVIC US WHI PELVIC US WHI An c Imaging Routine Breakthrough bleeding with IUD Pelvic cramping Ordered: 01/06/2022 [facility] Work Phone: Comment on above: Ordered: 01/06/2022 Protein electrophore sis panel - Serum or Plasma [facility] Reticulocyte count [facility] Tissue transglutamin ase IgA Ab [Units/volume] in Serum [facility] Troponin T.cardiac [Mass/volume] in Serum or Plasma by High sensitivity method [facility] Urine blood test [facility] Urine microscopy: ep ithelial cells [facility] End: 01-18-2026 US Breast - left limited US BREAST LTD LEFT Radiology Routine Abnormality of left breast on screening mammogram 1 Occurrences starting 12/19/2024 until 01/18/2026 [facility] Comment on above: 1 Occurrences starting 12/19/2024 until 01/18/2026 End: 11-11-2023 US BREAST LTD LEFT US BREAST LTD LEFT Radiology Routine Abnormal mammogram 1 Occurrences starting 10/12/2022 until 11/11/2023 [facility] Work Phone: Comment on above: 1 Occurrences starting 10/12/2022 until 11/11/2023 White blood cell count [facility] Immunizations Immunization Date Immunization Notes Care Provider Delilah moss 09-09-2023 tetanus toxoid, redu kalen diphtheria toxoid, and acellular pertussis vaccine, adsorbed [facility] 09-29-2020 Michela SARS-CoV-2 Vaccination Griselda Aguila RN [facility] 02-01-2018 tetanus toxoid, redu kalen diphtheria toxoid, and acellular pertussis vaccine, adsorbed Sharona Thomas MD Work Phone: [facility] 08-30-2017 influenza virus vaccine, unspecified formulation Nerissa Watson MD Work Phone: [facility] NEGATED: Highlighted row has not occurred!01-06-2023 Human Papillomavirus 9-valent vaccine Daniella Hidalgo DO Work Phone: [facility] Work Phone: Comment on above: Deferred: Immunizati on Series Payers Date Payer Category Payer Self-pay 2021 Unknown [id number] 2017 [employer] BLUE CARD PPO OOS [id number] 2017 Unknown 2017 Unknown [employer] BLUE CARD PPO OOS [id number] 2017-Present [phone] [address] [place] [address] PPO [id number] 1980 Unknown [id number] 2.840.1.236479.3.579.2 .278 1980 Unknown [id number] 2.840.1.876519.3.579.2 .278 1980 Unknown [id number] 2.840.1.965986.3.579.2 .278 1980 Unknown [id number] 2.840.1.662096.3.579.2 .278 1980 Unknown [id number] 2.840.1.368180.3.579.2 .278 1980 Unknown [id number] 2.0.1.199354.3.579.2 .278 1980 Unknown [id number] 20.1.289219.3.579.2 .278 1980 Unknown [id number] 2.840.1.719818.3.579.2 .278 1980 Unknown [id number] 2.0.1.132192.3.579.2 .278 1980 Unknown [id number] 2.0.1.125483.3.579.2 .278 1980 Unknown [id number] 2.1.016187.3.579.2 .278 1980 Unknown [id number] 2.840.1.971406.3.579.2 .278 1980 Unknown [id number] 2.840.1.847394.3.579.2 .278 1980 Unknown [id number] 2.840.1.827699.3.579.2 .278 1980 Unknown [id number] 2.840.1.340074.3.579.2 .278 1980 Unknown [id number] 2.16.840.1.833975.3.579.2 .278 1980 Unknown [id number] 2.16.840.1.971605.3.579.2 .278 1980 Unknown [id number] 2.16.840.1.394839.3.579.2 .278 1980 Unknown [id number] 2.16.840.1.895061.3.579.2 .8 1980 Unknown [id number] 2.16.840.1.464637.3.579.2 .8 1980 Unknown [id number] 2.840.1.928345.3.579.2 .1980 Unknown [id number] 2.840.1.735354.3.579.2 .1980 Unknown [id number] 2.840.1.430729.3.579.2 .1980 Unknown [id number] 2.840.1.443751.3.579.2 .8 Unknown [facility] [id number] Unknown [id number] 2.16.840.1.737782.3.579.2 .462 Unknown [id number] 2.16840.1.516966.3.579.2 .462 Unknown [id number] 2.16840.1.452924.3.579.2 .462 Unknown [id number] 2.16.840.1.477984.3.579.2 .462 Unknown [id number] 2.16.840.1.711874.3.579.2 .462 Unknown [id number] 2.16.840.1.640679.3.579.2 .462 Unknown [id number] 2.16840.1.712991.3.579.2 .462 Unknown [id number] 2.16.840.1.340705.3.579.2 .462 Unknown [id number] 2.16.840.1.884537.3.579.2 .462 Unknown [id number] 2.16.840.1.417013.3.579.2 .462 Unknown [id number] 2.16.840.1.458201.3.579.2 .462 Unknown [id number] 2.16.840.1.565016.3.579.2 .462 Unknown [id number] 2.16.840.1.116674.3.579.2 .462 Unknown [id number] 2.16840.1.242791.3.579.2 .462 Unknown [id number] 2.16840.1.392803.3.579.2 .462 Unknown [id number] 2.840.1.704660.3.579.2 .462 Unknown [id number] 2.16840.1.538153.3.579.2 .462 Unknown [id number] 2.16840.1.251849.3.579.2 .462 Unknown [id number] 2.16840.1.373965.3.579.2 .462 Unknown [id number] 2.16840.1.201117.3.579.2 .462 Unknown [id number] 2.16840.1.658292.3.579.2 .462 Unknown [id number] 2.16.840.1.869376.3.579.2 .462 Unknown [id number] 2.16.840.1.652842.3.579.2 .462 Unknown [id number] 2.16840.1.289908.3.579.2 .462 Unknown [id number] 2.16.840.1.274865.3.579.2 .462 Unknown [id number] 2.16840.1.768363.3.579.2 .462 Unknown [id number] 2.16.840.1.449514.3.579.2 .462 Unknown [id number] 2.16.840.1.457914.3.579.2 .462 Unknown [id number] 2.16.840.1.527236.3.579.2 .462 Unknown [id number] 2.16.840.1.029276.3.579.2 .462 Unknown [id number] 2.16.840.1.810911.3.579.2 .462 Unknown [id number] 2.16840.1.180918.3.579.2 .462 Unknown [id number] 2.16.840.1.735883.3.579.2 .462 Unknown [id number] 2.16840.1.226979.3.579.2 .462 Unknown [id number] 2.16840.1.190784.3.579.2 .462 Unknown [id number] 2.16840.1.704015.3.579.2 .462 Unknown [id number] 2.16.840.1.463316.3.579.2 .462 Unknown [id number] 2.16.840.1.482839.3.579.2 .462 Unknown [id number] 2.16840.1.550139.3.579.2 .462 Unknown [id number] 2.16840.1.223773.3.579.2 .462 Unknown [id number] 2.16.840.1.610853.3.579.2 .462 Unknown [id number] 2.16840.1.756437.3.579.2 .462 Unknown [id number] 2.16840.1.891210.3.579.2 .462 Unknown [id number] 2.16840.1.364122.3.579.2 .462 Social History Date Type Detail Facility Start: 06-28-2021 End: 03-27-2025 Tobacco smoking status NHIS Ex-smoker [facility] Start: 08-30-2003 End: 08-29-2018 History of tobacco use Current smoker [facility] Work Phone: Start: 06-28-2021 End: 11-30-2022 Tobacco use and exposure Smokeless tobacco non-user [facility] Work Phone: Start: 07-28-2021 End: 08-11-2021 Alcohol intake Ex-drinker (finding) [facility] Work Phone: Start: 07-10-2021 History SDOH Alcohol Comment rarely [facility] Work Phone: Start: 07-10-2021 History SDOH Financial 3 [facility] Work Phone: Start: 07-10-2021 End: 10-08-2022 History SDOH Food Worry 1 [facility] Work Phone: Start: 07-10-2021 End: 10-08-2022 History SDOH Transport Med 2 [facility] Work Phone: Start: 09-11-2016 Tobacco Comment occasional [facility] Work Phone: Start: 1980 Sex Assigned At Not on file S [employer] Work Phone: Start: 12-27-2021 End: 10-08-2022 Exposure to SARS-CoV-2 (event) Not sure [facility] Start: 08-30-2003 End: 08-29-2018 History of tobacco use Cigarette Smoker [facility] Start: 03-07-2018 End: 11-30-2022 Cigarettes smoked current (pack per day) - Reported 0.5 [facility] Start: 01-06-2022 End: 01-24-2023 Alcohol intake Current drinker of alcohol (finding) [facility] Start: 03-07-2018 History SDOH Alcohol Comment occasionally [facility] Start: 10-08-2022 History SDOH Financial 4 [facility] Start: 11-30-2022 End: 12-24-2022 Tobacco use panel [facility] Adult Depression Screening Assessment 6 [facility] How hard is it for you to pay for the very basics like food, housing, medical care, and heating Not very hard [facility] (I/We) worried whether (my/our) food would run out before (I/we) got money to buy more. Never true [employer] [facility] Start: 09-09-2023 Tobacco smoking status NHIS Unknown if ever smoked [facility] Start: 1980 Sex Assigned At Female [facility] Start: 09-12-2024 End: 09-29-2024 Sex Female (finding) [facility] NEGATED: Highlighted row Not [facility] Medical Equipment Procedure Code Equipment Code Equipment Origin al Text Equipment Identifier Dates ERCP (endoscopic retrograde cholangiopancreatog katie) ([id number]) [id number] FDA Start: 09-18-2024 fluorescein 0.6 MG ophthalmic strip 1 strip [id number] Start: 10-08-2022 End: 10-08-2022 Goals Date Patient Goal Desired Activity /State Functional Status Date Assessment Result Facility 03-30-2025 Functional status Ambulates [facility] Work Phone: 03-29-2025 Functional status None [facility] Work Phone: 10-22-2024 Functional status Ambulates;Up ad shira [facility] Work Phone: 09-29-2024 Functional status Ambulates [facility] Work Phone: 2024 Functional status Ambulates;Up ad shira [facility] Work Phone: 08-30-2017 Are you deaf, or do you have serious difficulty hearing No [facility] 08-30-2017 Are you blind, or do you have serious difficulty seeing, even when wearing glasses No [facility] 08-30-2017 Do you have serious difficulty walking or climbing stairs No [facility] 08-30-2017 Do you have difficul ty dressing or bathing No [facility] 08-30-2017 Because of a physica l, mental, or emotional condition, do you have difficulty doing errands alone such as visiting a physician's office or shopping No [facility] Mental Status Date Assessment Result Facility 03-30-2025 Cognitive function Voice/Name [facility] Work Phone: 11-29-2024 Cognitive function Voice/Name [facility] Work Phone: 10-22-2024 Cognitive function Voice/Name [facility] Work Phone: 09-28-2024 Cognitive function Voice/Name [facility] Work Phone: 2024 Cognitive function Voice/Name [facility] Work Phone: 08-30-2017 Because of a physica l, mental, or emotional condition, do you have serious difficulty concentrating, remembering, or making decisions No [facility] Clinical Notes 03-07-2018 to 03-30-2025 Note Date & Type Note Facility 03-30-2025 Discharge summary Note Date/Time March 30, 2025 11:57am [facility] Medical Records Department [address] [place] [address] Instructions for Home/Discharge Instructions 03/30/25 1051 MR#: [id number] Acct: [id number] Name: CASIMIRO LIU Rep #:[id number] : 1980 44 From: Niranjan Burris PCP: Dr. Mary Escobar MD Status:ADM IN Discharge Instructions DC O2, CPAP, BIPAP needs Home O2 Discharge instructions: No Dressing / Incision Discharge Activity: Return to Normal Activity Weight Bearing Status: Weight bearing as tolerated Dressing / Incision Call your doctor if you observe: Fever of 101 or Higher, Coldness, Increased Pain, Numbness or Tingling, Change in Color, Inability to urinate, Inability to have a bowel movement, Shortness of breath, Dizziness, Fainting spells, Swellingin the ankles, Chest pain, Prolonged hiccupping, Increased palpitations (irregular heartbeat) and Calf discomfort Follow Up Care When: IN 2 WEEKS Test Results: Test results from this visit will be discussed in further detail at your follow-up appointment, if applicable. Discharge Plan Admission Admit Date/Time: 03/27/25 21:16 Primary Reason for Your Visit: Acute on recurrent pancreatitis Attending Provider: Niranjan Noe Primary Care Provider: Mary Escobar Consulting Providers: Niranjan Noe; Arturo Sotelo; Daniella Lawler; Nataliia Montalvo; Ainsley Dotson; Zak Carcamo Discharge Orders/Prescriptions Prescriptions: [place] 24,000-76,000 -120,000 unit Capsule,Delayed Release(Dr/Ec) 2 cap PO TIDCM 30 Days Qty: 180 2RF oxycodone 5 mg tablet 2.5 - 5 mg PO Q4H PRN PRN (Reason: Pain Score 4-10) 3 Days Qty: 7 0RF Rx Instructions: 2.5 mg for moderate pain 5 mg for severe pain respectively levofloxacin 500 mg tablet 500 mg PO DAILY 5 Days Qty: 5 0RF Continued ipratropium bromide 42 mcg (0.06 %) spray,non-aerosol 1 spray INTRANASAL TID PRN PRN (Reason: allergy symptoms) sennosides-docusate sodium [Stimulant Laxative Plus] 8.6-50 mg Tablet 2 tab PO BID PRN (Reason: Constipation) Qty: 0 0RF Rx Instructions: Wisp-egy-wsunymg topiramate 25 mg tablet 25 mg PO BID amlodipine 5 mg tablet 5 mg PO DAILY Held fluoxetine 60 mg tablet 60 mg PO DAILY Hold Instructions: Hold for 5 days while taking levofloxacin for drug-drug interaction, QT prolongation Referrals / Follow Up: Mary Escobar MD [Primary Care Provider, Family Practice] Arturo Sotelo DO [Med Staff - Active Staff, Gastroenterology] - Within 1 Month Referral Note: To arrange EUS for pancreatitis outside Disposition Disposition (needs filled in before D/C Order can be placed): Home, Self Care 03/30/25 1157<Electronically signed by Niranjan Noe MD>Niranjan Noe MD CC: GUSSET FOLDERWanda Lawler; PATTI Montalvo; Dr. Mary Escobar MD; Dr. Jennifer Harden DO; Dr. Niranjan Noe MD; NOEL Lentz; Arturo Sotelo DO ~ Signed [facility] Work Phone: [phone]) 178-215510-11-2025 Discharge summary [facility] Medical Records Department [address] [place] [address] Discharge Summary 03/30/25 1157 MR#: [id number] Acct: [id number] Name: CASIMIRO LIU Rep #:[id number] : 1980 44 From: Niranjan Burris PCP: Dr. Mary Escobar MD Status:ADM IN Location: [place] [address] Providers Date of Admission: 03/27/25 Date of Discharge: 03/30/25 Primary Care Physician: Mary Escobar MD Consultations 03/27/25 21:33 Consult: Gastroenterology Routine Consulting Provider: [facility] Reason for Consult: Recurrent Acute Pancreatitis. EMERGENT Consult: No MD Notified: Yes Date Notified: 03/27/25 Time Notified: 21:19 Method of Notification: ED Physician Initiated Reason For Visit: RECURRENT ACUTE PANCREATITIS Diagnosis Discharge Diagnosis (1) Acute recurrent pancreatitis: Status: Acute Code(s): K85.90 - Acute pancreatitis without necrosis or infection, unspecified Plan 44-year-old female admitted with severe epigastric pain with high lipase and CT finding suggestive of acute pancreatitis with potential area of necrotizing pancreatitis within head of pancreas: 1. Acute on recurrent pancreatitis with CT reporting a potential necrotizing pancreatitis: Patient is being admitted to MedSurg floor. Patient had subjective chills and drenching sweats at home but no measured fever. Lipase 1356, more than 10 times ULN. [facility] criteria at admission 0 but LDH not available. LDH ordered. N.p.o. IV fluid with aggressive rehydration. On empiric IV meropenem with CTreporting of potential necrotizing pancreatitis. Pantoprazole for tomorrow IV daily. Supportive treatment will for nausea or vomiting and pain control. CT abdomen/pelvis with IV contrast individually reviewed. I agree moderate fat stranding with hazy/indistinct mesentery suggesting acute pancreatitis. No focal fluid collection or abscess or pseudocyst. Reporting raise suspicion of necrotizing pancreatitis. MRCP is ordered. No fever.. Patient on IVmeropenem. Mild leukocytosis resolved. 03/29: Patient tolerated clear liquid diet advance to full liquid. Patient had MRCP which is negative for choledocholithiasis and shows pancreatitis with increased signal in the tail with retroperitoneal fluid. No liver or pancreaticmass. No dilatation of extrahepatic biliary duct or pancreatic duct. Patient started on Creon 2 tablets 3 times daily with liquid diet. Labs done today shows decreasing hematocrit 3%. [facility] criteria at admission and repeat 48 hours is 0. Continue IV antibiotics. 03/30: Discussed with Dr. Sotelo. Abdominal pain is better about 7-8/10 intensity which was very intractable more than 10 days per the patient. She tolerated soft diet. MRCP shows mild retroperitoneal fluid/increased signal in the tail of pancreas. Overall my feel CT reporting of suspicion of necrotizing pancreatitis probably over read. No air trapping on CT scan. Patient asked foroxycodone. Prescription for oxycodone total 7 tablets, oxycodone 2.5 mg for moderate pain and 5 mg for severe pain respectively given. OARRS reviewed. Unintentional overdose risk score 310. Prescriptions of phentermine oxycodone given in the past. Patient not showing signs of infection but prescription for levofloxacin total 5 tablets given as a precautionary measure. Advised follow-up in GI office to arrange EUS. 2. 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 Sotelo (November 29, 2024) with subsequent removal of biliary stent with surgical cholecystectomy. Lipid profile within normal limit. TG 77 03/29: MRCP does not show choledocholithiasis as mentioned above 3. Obesity (class III); with BMI of 39.3 this admission adding to the burden ofdisease outlined in #1 & #2 - Weight loss will be recommended with patient explaining she was previously on topiramate to help lose weight but she stopped taking it because of side effects causing mental impairment. Check TSH. This complicates her case and may hamper recovery. 4. Essential hypertension; on amlodipine - Hold oral agents until further notice. Give hydralazine IV prn for systolic blood pressure > 160 mmHg. 5. Former tobacco abuse - Noted. 6. DVT/GI prophylaxis - Enoxaparin 40 mg sq daily plus SCD's. Pantoprazole 40 mg IV daily. Discharge medication reconciliation done. Discharge follow-up instructions completed. Discharge process discussed with the patient and all questions wereanswered to patient's satisfaction. Follow with PCP in 1 to 2 weeks Total time spent, exact 35 minutes on discharge meds reconciliation, examination, coordination of care with nurses and ancillary staff, review of imaging and blood test and discussion with the patient on follow-up instructions. Laboratory Results 03/28/25 05:26: Lactate Dehydrogenase 122 03/29/25 04:46: Sodium 135, Potassium 4.1, Chloride 101, Carbon Dioxide 22.1, Anion Gap 12, BUN 9, Creatinine 0.45 L, Estim Creat Clear Calc 187.63, Est GFR (MDRD) Non-Af 121, BUN/Creatinine Ratio 18.8, Glucose 106 H, Calcium 9.3, Phosphorus 2.7, Total Bilirubin 0.37, Direct Bilirubin 0.14, AST 20,ALT 18, Alkaline Phosphatase 81, Lactate Dehydrogenase 122, C-React Prot Ext Range 66.30H, Total Protein 6.2, Albumin 3.5, Globulin 2.7 03/29/25 12:30: WBC 9.0, RBC 3.61 L, Hgb 9.6 L, Hct 30.8 L, MCV 85.3, MCH 26.6 L, MCHC 31.2 L, RDW Std Deviation 42.6, RDW Coeff of Chelsie 13.6, Plt Count 220, MPV10.6, Immature Gran % (Auto) 0.300, Neut % (Auto) 72.7 H, Lymph % (Auto) 19.8, [place] % (Auto) 5.8, Eos % (Auto) 1.2, Baso % (Auto) 0.2, Absolute Neuts (auto) 6.5, Absolute Lymphs (auto) 1.78, Nucleated RBC % 0 03/27/25 18:25: WBC 11.5 H, RBC 4.84, Hgb 12.7, Hct 39.6, MCV 81.8, MCH 26.2 L, MCHC 32.1, RDW Std Deviation 39.2, RDW Coeff of Chelsie 13.3, Plt Count 338, MPV 10.2, Immature Gran % (Auto) 0.300, Neut %(Auto) 70.1 H, Lymph % (Auto) 21.2, Tarrant % (Auto) 5.9, Eos % (Auto) 2.2, Baso % (Auto) 0.3, Absolute Neuts (auto) 8.0 H, Absolute Lymphs (auto) 2.43, Nucleated RBC % 0, Sodium 138, Potassium 3.6, Chloride 99, Carbon Dioxide 26.7, Anion Gap 12, BUN 11, Creatinine 0.50 L, Estim Creat Clear Calc 168.45, Est GFR (MDRD) Non-Af 118, BUN/Creatinine Ratio 22.0 H, Glucose 100 H, Hemoglobin A1c 5.7, Calcium 10.7, Magnesium 2.1, Total Bilirubin 0.48, AST 25, ALT 24, Alkaline Phosphatase 119 H, Total Protein 7.7, Albumin 4.7, Globulin 3.0, Albumin/Globulin Ratio 1.6, Lipase > 3000 H, TSH 2.940, Serum , Qual NEGATIVE, Ethyl Alcohol < 10.1 03/27/25 18:30: Urine Color Straw, Urine Clarity Clear, Urine pH 6.0, Ur Specific [place] 1.015, Urine Protein 15 H, Urine Glucose (UA) Normal, Urine Ketones Negative, Urine Occult Blood 25 H, Urine Nitrite Negative, Urine Bilirubin Negative, Urine Urobilinogen Normal, Ur Leukocyte Esterase Negative, Urine RBC 0-5 SEEN, Urine WBC 0-5 SEEN, Ur Squamous Epith Cells 0-5 SEEN, Urine Bacteria 0 SEEN, Urine Mucus 1+ 03/28/25 05:26: WBC 6.8, RBC 3.96 L, Hgb 10.8 L, Hct 33.2 L, MCV 83.8, MCH 27.3,MCHC 32.5, RDW Std Deviation 41.9, RDW Coeff of Chelsie 13.6, Plt Count 241, MPV 10.2, Immature Gran % (Auto) 0.300, Neut %(Auto) 69.0, Lymph % (Auto) 23.2, Tarrant % (Auto) 4.4, Eos % (Auto) 2.8, Baso % (Auto) 0.3, Absolute Neuts (auto) 4.7, Absolute Lymphs (auto) 1.58, Nucleated RBC % 0, Sodium 139, Potassium 4.1, Chloride 105, Carbon Dioxide 26.6, Anion Gap 7, BUN 13, Creatinine 0.58 L, EstimCreat Clear Calc 145.11, Est GFR (MDRD) Non-Af 114, BUN/Creatinine Ratio 22.3 H,Glucose 118 H, Calcium 9.6, Phosphorus 3.0, Total Bilirubin 0.31, AST 19, ALT 18, Alkaline Phosphatase 82, Total Protein 6.3, Albumin 3.6, Globulin2.7, Albumin/Globulin Ratio 1.4, Triglycerides 77, Cholesterol 136, LDL Cholesterol, Calc 73, VLDL Cholesterol 15, HDL Cholesterol 48, Cholesterol/HDL Ratio 2.85, Lipase 1356 H Clinical Impression(s) from Imaging Studies Abdomen/Pelvis CT 03/27/25 19:03 IMPRESSION: Findings compatible with acute pancreatitis. Potential areas of necrotizing pancreatitis within thehead. Similar findings are noted on the previous study. Reading Location: [id number] MRCP 03/28/25 02:12 IMPRESSION: Negative for choledocholithiasis. Pancreatitis. Reading Location[facility] Medications at Discharge Home Medications ipratropium bromide 42 mcg (0.06 %) nasal spray 1 spray intranasal TID PRN PRN allergy symptoms 09/12/24 sennosides 8.6 mg-docusate sodium 50 mg tablet (Stimulant Laxative Plus) 2 tab PO BID PRN Constipation #0 tabs 10/22/24 amlodipine 5 mg tablet 5 mg PO DAILY 03/27/25 fluoxetine 60 mg tablet 60 mg PO DAILY anxiety/depression 03/27/25 Held on 03/30/25. Instructions: Hold for 5 days while taking levofloxacin for drug-drug interaction, QT prolongation topiramate 25 mg tablet 25 mg PO BID 03/27/25 levofloxacin 500 mg tablet 500 mg PO DAILY 5 days #5 tabs 03/30/25 kfgkjr-xfudmuoz-daeujlf 24,000-76,000-120,000 unit capsule,delayed rel (Creon) 2cap PO TIDCM 30 days #180 caps 03/30/25 oxycodone 5 mg tablet 2.5 - 5 mg (0.5 - 1 x 5 mg) PO Q4H PRN PRN Pain Score 4- 103 days #7 tabs 03/30/25 Hospital Course Summary of Care Provided Hospital Course: Laboratory Results 03/29/25 04:46: Sodium 135, Potassium 4.1, Chloride 101, Carbon Dioxide 22.1, Anion Gap 12, BUN 9, Creatinine 0.45 L, Estim Creat Clear Calc 187.63, Est GFR (MDRD) Non-Af 121, BUN/Creatinine Ratio 18.8, Glucose 106 H, Calcium 9.3, Total Bilirubin 0.37, Direct Bilirubin 0.14, AST 20, ALT 18, Alkaline Phosphatase 81, C-React Prot Ext Range 66.30 H, Total Protein 6.2, Albumin 3.5, Globulin 2.7 03/29/25 12:30: WBC 9.0, RBC 3.61 L, Hgb 9.6 L, Hct 30.8 L, MCV 85.3, MCH 26.6 L, MCHC 31.2 L, RDW Std Deviation 42.6, RDW Coeff of Chelsie 13.6, Plt Count 220, MPV10.6, Immature Gran % (Auto) 0.300, Neut % (Auto) 72.7 H, Lymph % (Auto) 19.8, Tarrant % (Auto) 5.8, Eos % (Auto) 1.2, Baso % (Auto) 0.2, Absolute Neuts (auto) 6.5, Absolute Lymphs (auto) 1.78, Nucleated RBC % 0 03/30/25 04:29: WBC 9.4, RBC 3.81 L, Hgb 10.2 L, Hct 31.9 L, MCV 83.7, MCH 26.8 L, MCHC 32.0, RDW Std Deviation 41.6, RDW Coeff of Chelsie 13.6, Plt Count 257, MPV 10.6, Immature Gran % (Auto) 0.300, Neut % (Auto) 74.1 H, Lymph % (Auto) 18.6 L,Tarrant % (Auto) 5.0, Eos % (Auto) 1.7, Baso % (Auto) 0.3, Absolute Neuts (auto) 7.0, Absolute Lymphs (auto) 1.75, Nucleated RBC % 0, Sodium 138, Potassium 3.8, Chloride 101, Carbon Dioxide 28.7, Anion Gap 8, BUN 6, Creatinine 0.37 L, Estim Creat Clear Calc 228.20, Est GFR (MDRD) Non-Af 127, BUN/Creatinine Ratio 15.9, Glucose 108 H, Calcium 9.5, Total Bilirubin 0.42, Direct Bilirubin 0.20, AST 17, ALT 16, Alkaline Phosphatase 88, Total Protein 6.3, Albumin 3.6, Globulin 2.7 Physical Exam Narrative Seen and examined. Tolerated soft diet well. Abdominal pain has improved. She had biliary stent in November and was removed subsequently. Physical exam General: Alert, Oriented x3, Cooperative. BMI 39.0 kg/m?, obesity grade 2 HEENT: Atraumatic, PERRLA, EOMI, Normocephalic. Oral: No Gingival or Mucosal Lesions/ Ulcerations Neck: Supple, No JVD, Negative Carotid Bruits Chest wall/Lungs: Air entry diminished in bilateral lung bases. No crepitation/rhonchi Cardiovascular: Regular rate and rhythm, Normal S1,S2, No M/G/R Abdomen: Bowel Sounds sluggish. Soft, very mild tenderness present in epigastric/upper abdomen. No rebound tenderness. : No dysuria. No renal angle tenderness. No suprapubic tenderness. Extremities: No edema, Capillary Refill Less than 3 Seconds Skin: No rashes, No breakdown Musculoskeletal: No Tenderness to Palpation of Joints or Extremities Neurological: Cranial nerves II-XII grossly intact, DTR 2+/4. No acute focal neurological deficit. Psych/Mental Status: Normal Affect, Appropriate. Weight / BMI Weight Weight: 229 lb 11.547 oz Body Mass Index (BMI) 39.2 ABG / Lab / Microbiology Data 03/30/25 04:29 03/30/25 04:29 Laboratory: Laboratory Results - last 24 hr 03/29/25 04:46: Sodium 135, Potassium 4.1, Chloride 101, Carbon Dioxide 22.1, Anion Gap 12, BUN 9, Creatinine 0.45 L, Estim Creat Clear Calc 187.63, Est GFR (MDRD) Non-Af 121, BUN/Creatinine Ratio 18.8, Glucose 106 H, Calcium 9.3, Total Bilirubin 0.37, Direct Bilirubin 0.14, AST 20, ALT 18, Alkaline Phosphatase 81, C-React Prot Ext Range 66.30 H, Total Protein 6.2, Albumin 3.5, Globulin 2.7 03/29/25 12:30: WBC 9.0, RBC 3.61 L, Hgb 9.6 L, Hct 30.8 L, MCV 85.3, MCH 26.6 L, MCHC 31.2 L, RDW Std Deviation 42.6, RDW Coeff of Chelsie 13.6, Plt Count 220, MPV10.6, Immature Gran % (Auto) 0.300, Neut % (Auto) 72.7 H, Lymph % (Auto) 19.8, [place] % (Auto) 5.8, Eos % (Auto) 1.2, Baso % (Auto) 0.2, Absolute Neuts (auto) 6.5, Absolute Lymphs (auto) 1.78, Nucleated RBC % 0 03/30/25 04:29: WBC 9.4, RBC 3.81 L, Hgb 10.2 L, Hct 31.9 L, MCV 83.7, MCH 26.8 L, MCHC 32.0, RDW Std Deviation 41.6, RDW Coeff of Chelsie 13.6, Plt Count 257, MPV 10.6, Immature Gran % (Auto) 0.300, Neut % (Auto) 74.1 H, Lymph % (Auto) 18.6 L,Tarrant % (Auto) 5.0, Eos % (Auto) 1.7, Baso % (Auto) 0.3, Absolute Neuts (auto) 7.0, Absolute Lymphs (auto) 1.75, Nucleated RBC % 0, Sodium 138, Potassium 3.8, Chloride 101, Carbon Dioxide 28.7, Anion Gap 8, BUN 6, Creatinine 0.37 L, Estim Creat Clear Calc 228.20, Est GFR (MDRD) Non-Af 127, BUN/Creatinine Ratio 15.9, Glucose 108 H, Calcium 9.5, Total Bilirubin 0.42, Direct Bilirubin 0.20, AST 17, ALT 16, Alkaline Phosphatase 88, Total Protein 6.3, Albumin 3.6, Globulin 2.7 D/C Instructions Weight Bearing Status: Weight bearing as tolerated Call your doctor if you observe: Fever of 101 or Higher, Coldness, Increased Pain, Numbness or Tingling, Change in Color, Inability to urinate, Inability to have a bowel movement, Shortness of breath, Dizziness, Fainting spells, Swellingin the ankles, Chest pain, Prolonged hiccupping, Increased palpitations (irregular heartbeat) and Calf discomfort DC O2, CPAP, BIPAP Needs Home O2 Discharge instructions: No When: IN 2 WEEKS Meaningful Use Info Meaningful Use Meaningful Use Diagnoses (Choose all that apply): None applicable Discharge Plan Admission Admit Date/Time: 03/27/25 21:16 Primary Reason for Your Visit: Acute on recurrent pancreatitis Attending Provider: Niranjan Noe Primary Care Provider: Mary Escobar Consulting Providers: Niranjan Noe; Arturo Sotelo; Daniella Lawler; Nataliia Montalvo; Ainsley Dotson; Zak Carcamo Discharge Orders/Prescriptions Prescriptions: Tucker Solis 24,000-76,000 -120,000 unit Capsule,Delayed Release(Dr/Ec) 2 cap PO TIDCM 30 Days Qty: 180 2RF oxycodone 5 mg tablet 2.5 - 5 mg PO Q4H PRN PRN (Reason: Pain Score 4-10) 3 Days Qty: 7 0RF Rx Instructions: 2.5 mg for moderate pain 5 mg for severe pain respectively levofloxacin 500 mg tablet 500 mg PO DAILY 5 Days Qty: 5 0RF Continued ipratropium bromide 42 mcg (0.06 %) spray,non-aerosol 1 spray INTRANASAL TID PRN PRN (Reason: allergy symptoms) sennosides-docusate sodium [Stimulant Laxative Plus] 8.6-50 mg Tablet 2 tab PO BID PRN (Reason: Constipation) Qty: 0 0RF Rx Instructions: Osxz-erv-egiaegw topiramate 25 mg tablet 25 mg PO BID amlodipine 5 mg tablet 5 mg PO DAILY Held fluoxetine 60 mg tablet 60 mg PO DAILY Hold Instructions: Hold for 5 days while taking levofloxacin for drug-drug interaction, QT prolongation Referrals / Follow Up: Mary Escobar MD [Primary Care Provider, Family Practice] Arturo Sotelo DO [Med Staff - Active Staff, Gastroenterology] - Within 1 Month Referral Note: To arrange EUS for pancreatitis outside Disposition Disposition (needs filled in before D/C Order can be placed): Home, Self Care Charges/Coding Visit Charges Inpatient E&M: 36320 Disch Hosp >30min 03/30/25 1204 Cosigner Signature (if applicable): CC: Dr. Mary Escobar MD; Dr. Niranjan Noe MD; Arturo Sotelo DO~ Signed [facility]10-11-2025 Discharge summary [facility] Medical Records Department [address] [place] [address] Instructions for Home/Discharge Instructions 03/30/25 1051 MR#: [id number] Acct: [id number] Name: CASIMIRO LIU Rep #:[id number] : 1980 44 From: Niranjan Burris PCP: Dr. Mary Escobar MD Status:ADM IN Discharge Instructions DC O2, CPAP, BIPAP needs Home O2 Discharge instructions: No Dressing / Incision Discharge Activity: Return to Normal Activity Weight Bearing Status: Weight bearing as tolerated Dressing / Incision Call your doctor if you observe: Fever of 101 or Higher, Coldness, Increased Pain, Numbness or Tingling, Change in Color, Inability to urinate, Inability to have a bowel movement, Shortness of breath, Dizziness, Fainting spells, Swellingin the ankles, Chest pain, Prolonged hiccupping, Increased palpitations (irregular heartbeat) and Calf discomfort Follow Up Care When: IN 2 WEEKS Test Results: Test results from this visit will be discussed in further detail at your follow- up appointment, if applicable. Discharge Plan Admission Admit Date/Time: 03/27/25 21:16 Primary Reason for Your Visit: Acute on recurrent pancreatitis Attending Provider: Niranjan Noe Primary Care Provider: Mary Escobar Consulting Providers: Niranjan Noe; Arturo Sotelo; Daniella Lawler; Nataliia Montalvo; Ainsley Dotson; Zak Carcamo Discharge Orders/Prescriptions Prescriptions: New Creon 24,000-76,000 -120,000 unit Capsule,Delayed Release(Dr/Ec) 2 cap PO TIDCM 30 Days Qty: 180 2RF oxycodone 5 mg tablet 2.5 - 5 mg PO Q4H PRN PRN (Reason: Pain Score 4-10) 3 Days Qty: 7 0RF Rx Instructions: 2.5 mg for moderate pain 5 mg for severe pain respectively levofloxacin 500 mg tablet 500 mg PO DAILY 5 Days Qty: 5 0RF Continued ipratropium bromide 42 mcg (0.06 %) spray,non-aerosol 1 spray INTRANASAL TID PRN PRN (Reason: allergy symptoms) sennosides-docusate sodium [Stimulant Laxative Plus] 8.6-50 mg Tablet 2 tab PO BID PRN (Reason: Constipation) Qty: 0 0RF Rx Instructions: Rmmn-dpl-vfvzxek topiramate 25 mg tablet 25 mg PO BID amlodipine 5 mg tablet 5 mg PO DAILY Held fluoxetine 60 mg tablet 60 mg PO DAILY Hold Instructions: Hold for 5 days while taking levofloxacin for drug-drug interaction, QT prolongation Referrals / Follow Up: Mary Escobar MD [Primary Care Provider, Family Practice] Arturo Sotelo DO [Med Staff - Active Staff, Gastroenterology] - Within 1 Month Referral Note: To arrange EUS for pancreatitis outside Disposition Disposition (needs filled in before D/C Order can be placed): Home, Self Care 03/30/25 1157Niranjan Noe MD CC: GUSSET FOLDERWanda Lawler; GUSSET FOLDERWanda Montalvo; Dr. Mary Escobar MD; Dr. Jennifer Harden DO; Dr. Niranjan Noe MD; NOEL Lentz; Arturo Sotelo DO ~ Signed [facility]10-11-2025 [facility]10-10-2025 Progress note Author Arturo Sotelo [facility] Note Date/Time March 29, 2025 7 :[address] [place] [address] System Medical Records Department [address] [place] [address] Progress Note 03/29/251925 MR#: [id number] Acct: [id number] Name: CASIMIRO LIU Rep #:[id number] : 1980 44 From: Arturo Sotelo DO PCP: Dr. Mary Escobar MD Status:ADM IN [id number] Note 44-year-old female presents with acute recurrent pancreatitis of unknown etiology. She reports persistent abdominal pain but states that it is now tolerable. She was able to eat a small amount of food today. No nausea, vomiting, or fever reported currently.? Physical Exam Const alert, oriented x3, no apparent distress and healthy appearing General Appearance: cooperative GI normal to inspection, nondistended, normoactive bowel sounds, soft to palpation,non-tender and non-distended Percussion: normal to percussion Rectal Exam: deferred Assessment & Plan Assessment/Plan (1) Acute recurrent pancreatitis: PLAN: 44-year-old female with acute recurrent pancreatitis, likely classified asidiopathic given the negative workup for common causes like gallstones, alcohol, autoimmune disease, and hypertriglyceridemia. The latest CT showing questionable necrosis in the pancreatic tail elevates concern for severe pancreatitis. The successful initiation of oral intake, albeit minimal, is a positive sign for recovery. The continued abdominal pain, however, warrants ongoing monitoring and pain management. The etiology remains a diagnostic challenge, and further investigation is necessary, potentially requiring advanced imaging like Endoscopic Ultrasound (EUS) to rule out microlithiasis, pancreas divisum, or sphincter of Oddi dysfunction. Plan * Pain Management:?Continue current pain regimen. Given the history, use opioids cautiously and monitor for side effects, particularly constipation. Also it is noted that opioids can cause increased pressure in the sphincter of Oddi. * Nutrition:?Continue advancing the diet as tolerated. Progress to a low-fat, soft diet, and monitor for any recurrence of pain or other symptoms with increased oral intake. Continue intravenous hydration to maintain euvolemia. Agree with continuing pancreatic enzymes. * Antibiotics:?Continue meropenem as directed, pending culture results or cli nical response. Prophylactic antibiotics for sterile necrosis are not indicated, but are used when infection is suspected, as is the case here. Monitor for signs of clinical improvement or deterioration that might suggest infected necrosis. * Monitoring and Diagnostics: * Continue close monitoring of vitals, fluid status, and clinical condition. * Repeat lab work (CBC, renal function) as needed. * A repeat CT scan should be performed only if it will alter management, such as guiding an aspiration for culture. * Recurrent Pancreatitis Workup: * Consider further workup for the idiopathic recurrent pancreatitis once the acute episode resolves. This will involve Endoscopic Ultrasound (EUS) to evaluate for microlithiasis, anatomical abnormalities like pancreas divisum, or Sphincter of Oddi dysfunction. Visit Charges Inpatient E&M: 86801 Subs Hosp L3 03/29/251930 <Electronically signed by Arturo Sotelo DO> Arturo Sotelo DO Cosigner Signature (if applicable): CC: ~ Signed [facility] Work Phone: [phone] 506-943110-10-2025 Progress note [facility] Medical Records Department [address] [place] [address] Progress Note 03/29/251925 MR#: [id number] Acct: [id number] Name: CASIMIRO LIU Rep #:[id number] : 1980 44 From: Arturo Sotelo DO PCP: Dr. Chalon Luz, MD Status:ADM IN Location: [facility] [id number] Progress Note 44-year-old female presents with acute recurrent pancreatitis of unknown etiology. She reports persistent abdominal pain but states that it is now tolerable. She was able to eat a small amount of food today. No nausea, vomiting, or fever reported currently.? Physical Exam Const alert, oriented x3, no apparent distress and healthy appearing General Appearance: cooperative GI normal to inspection, nondistended, normoactive bowel sounds, soft to palpation,non-tender and non-distended Percussion: normal to percussion Rectal Exam: deferred Assessment & Plan Assessment/Plan (1) Acute recurrent pancreatitis: PLAN: 44-year-old female with acute recurrent pancreatitis, likely classified asidiopathic given the negative workup for common causes like gallstones, alcohol, autoimmune disease, and hypertriglyceridemia. The latest CT showing questionable necrosis in the pancreatic tail elevates concern for severe pancreatitis. The successful initiation of oral intake, albeit minimal, is a positive sign for recovery. The continued abdominal pain, however, warrants ongoing monitoring and pain management. The etiology remains a diagnostic challenge, and further investigation is necessary, potentially requiring advanced imaging like Endoscopic Ultrasound (EUS) to rule out microlithiasis, pancreas divisum,or sphincter of Oddi dysfunction. Plan * Pain Management:?Continue current pain regimen. Given the history, use opioids cautiously and monitor for side effects, particularly constipation. Also it is noted that opioids can cause increased pressure in the sphincter of Oddi. * Nutrition:?Continue advancing the diet as tolerated. Progress to a low-fat, soft diet, and monitor for any recurrence of pain or other symptoms with increased oral intake. Continue intravenous hydration to maintain euvolemia. Agree with continuing pancreatic enzymes. * Antibiotics:?Continue meropenem as directed, pending culture results or cli nical response. Prophylactic antibiotics for sterile necrosis are not indicated, but are used when infection is suspected, as is the case here. Monitor for signs of clinical improvement or deterioration that might suggestinfected necrosis. * Monitoring and Diagnostics: * Continue close monitoring of vitals, fluid status, and clinical condition. * Repeat lab work (CBC, renal function) as needed. * A repeat CT scan should be performed only if it will alter management, such as guiding an aspiration for culture. * Recurrent Pancreatitis Workup: * Consider further workup for the idiopathic recurrent pancreatitis once the acute episode resolves. This will involve Endoscopic Ultrasound (EUS) to evaluate for microlithiasis, anatomical abnormalities like pancreas divisum, or Sphincter of Oddi dysfunction. Visit Charges Inpatient E&M: 99183 Subs Hosp L3 03/29/25 193 Arturo Friend DO Alexigner Signature (if applicable): CC: ~ Signed [facility]10-10-2025 Progress note Author Niranjan Noe [facility] Note Date/Time March 29, 2025 3 :50pm [facility] Medical Records Department [address] [place] [address] Progress Note - Hospitalist 03/29/25 1538 MR#: [id number] Acct: [id number] Name: CASIMIRO LIU Rep #:[id number] : 1980 44 From: Niranjan Burris PCP: Dr. Mary Escobar MD Status:ADM IN Location: [place] [address] Reason for Visit Chief Complaint: Epigastric Pain and Nausea. Objective Data Objective Data Vital Signs: Vital Signs Temp Pulse Resp BP Pulse Ox O2 Del Method O2 Flow Rate 98.9 F 87 18 155/95 H 96 Nasal Cannula 2 03/29/25 11:24 03/29/25 11:24 03/29/25 11:24 03/29/25 11:24 03/29/25 11:24 03/29/25 11:24 03/29/25 11:24 Oxygen Flow Rate (L/min) 2 Oxygen Delivery Method Nasal Cannula Weight: 229 lb 11.547 oz Body Mass Index (BMI) 39.2 Intake & Output: Intake and Output for Last 24 Hours 03/27/25 03/28/25 03/29/25 23:59 23:59 23:59 Intake Total 1200 / 1200 6588.33 / 6588.33 4245 / 4245 Balance 1200 / 1200 6588.33 / 6588.33 4245 / 4245 Lab / Micro Data 03/29/25 12:30 03/29/25 04:46 Labs: Laboratory Results - last 24 hr 03/28/25 05:26: Lactate Dehydrogenase 122 03/29/25 04:46: Sodium 135, Potassium 4.1, Chloride 101, Carbon Dioxide 22.1, Anion Gap 12, BUN 9, Creatinine 0.45 L, Estim Creat Clear Calc 187.63, Est GFR (MDRD) Non-Af 121, BUN/Creatinine Ratio 18.8, Glucose 106 H, Calcium 9.3, Phosphorus 2.7, Total Bilirubin 0.37, Direct Bilirubin 0.14, AST 20, ALT 18, Alkaline Phosphatase 81, Lactate Dehydrogenase 122, C-React Prot Ext Range 66.30H, Total Protein 6.2, Albumin 3.5, Globulin 2.7 03/29/25 12:30: WBC 9.0, RBC 3.61 L, Hgb 9.6 L, Hct 30.8 L, MCV 85.3, MCH 26.6 L, MCHC 31.2 L, RDW Std Deviation 42.6, RDW Coeff of Chelsie 13.6, Plt Count 220, MPV10.6, Immature Gran % (Auto) 0.300, Neut % (Auto) 72.7 H, Lymph % (Auto) 19.8, [place] % (Auto) 5.8, Eos % (Auto) 1.2, Baso % (Auto) 0.2, Absolute Neuts (auto) 6.5, Absolute Lymphs (auto) 1.78, Nucleated RBC % 0 Radiography Diagnostic Testing: Radiology Impression MRCP 03/28/25 02:12 IMPRESSION: Negative for choledocholithiasis. Pancreatitis. Reading Location: [facility] Physical Exam Narrative Seen and examined. Patient was started on liquid diet and advance to full liquid. Admitted with 2 days of severe epigastric/abdominal pain 03/29. She had outsidefatty food on Tuesday passed gas last time on Tuesday. She had a small bowel movement yesterday. She did not measure her temperature but was sweating and cold and used for blankets She had biliary stent in November and was removed subsequently. Physical exam General: Alert, Oriented x3, Cooperative. BMI 39.0 kg/m?, obesity grade 2 HEENT: Atraumatic, PERRLA, EOMI, Normocephalic. Oral: No Gingival or Mucosal Lesions/ Ulcerations Neck: Supple, No JVD, Negative Carotid Bruits Chest wall/Lungs: Air entry diminished in bilateral lung bases. No crepitation/rhonchi Cardiovascular: Regular rate and rhythm, Normal S1,S2, No M/G/R Abdomen: Bowel Sounds sluggish. Soft, mild tenderness present in epigastric/upper abdomen. No rebound tenderness. : No dysuria. No renal angle tenderness. No suprapubic tenderness. Extremities: No edema, Capillary Refill Less than 3 Seconds Skin: No rashes, No breakdown Musculoskeletal: No Tenderness to Palpation of Joints or Extremities Neurological: Cranial nerves II-XII grossly intact, DTR 2+/4. No acute focal neurological deficit. Psych/Mental Status: Normal Affect, Appropriate. Assessment & Plan Assessment/Plan (1) Acute recurrent pancreatitis: (2) Intractable abdominal pain: (3) Leukocytosis: QUALIFIERS: Leukocytosis type: unspecified Qualified Code(s): D72.829 - Elevated white blood cell count, unspecified (4) Nausea: (5) Obesity (BMI 30-39.9): PLAN: Plan 44-year-old female admitted with severe epigastric pain with high lipase and CT finding suggestive of acute pancreatitis with potential area of necrotizing pancreatitis within head of pancreas: 1. Acute on recurrent pancreatitis with CT reporting a potential necrotizing pancreatitis: Patient is being admitted to [facility] floor. Patient had subjective chills and drenching sweats at home but no measured fever. Lipase 1356, more than 10 times ULN. [facility]'s criteria at admission 0 but LDH not available. LDH ordered. N.p.o. IV fluid with aggressive rehydration. On empiric IV meropenem with CT reporting of potential necrotizing pancreatitis. Pantoprazole for tomorrow IV daily. Supportive treatment will for nausea or vomiting and pain control. CT abdomen/pelvis with IV contrast individually reviewed. I agree moderate fat stranding with hazy/indistinct mesentery suggesting acute pancreatitis. No focal fluid collection or abscess or pseudocyst. Reporting raise suspicion of necrotizing pancreatitis. MRCP is ordered. No fever.. Patient on IV meropenem. Mild leukocytosis resolved. 03/29: Patient tolerated clear liquid diet advance to full liquid. Patient had MRCP which is negative for choledocholithiasis and shows pancreatitis with increased signal in the tail with retroperitoneal fluid. No liver or pancreaticmass. No dilatation of extrahepatic biliary duct or pancreatic duct. Patient started on Creon 2 tablets 3 times daily with liquid diet. Labs done today shows decreasing hematocrit 3%. [facility] criteria at admission and repeat 48 hours is 0. Continue IV antibiotics. 2. 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 Sotelo (November 29, 2024) with subsequent removal of biliary stent with surgical cholecystectomy. Lipid profile within normal limit. TG 77 03/29: MRCP does not show choledocholithiasis as mentioned above 3. Obesity (class III); with BMI of 39.3 this admission adding to the burden ofdisease outlined in #1 & #2 - Weight loss will be recommended with patient explaining she was previously on topiramate to help lose weight but she stopped taking it because of side effects causing mental impairment. Check TSH. This complicates her case and may hamper recovery. 4. Essential hypertension; on amlodipine - Hold oral agents until further notice. Give hydralazine IV prn for systolic blood pressure > 160 mmHg. 5. Former tobacco abuse - Noted. 6. DVT/GI prophylaxis - Enoxaparin 40 mg sq daily plus SCD's. Pantoprazole 40 mg IV daily. Laboratory Results 03/28/25 05:26: Lactate Dehydrogenase 122 03/29/25 04:46: Sodium 135, Potassium 4.1, Chloride 101, Carbon Dioxide 22.1, Anion Gap 12, BUN 9, Creatinine 0.45 L, Estim Creat Clear Calc 187.63, Est GFR (MDRD) Non-Af 121, BUN/Creatinine Ratio 18.8, Glucose 106 H, Calcium 9.3, Phosphorus 2.7, Total Bilirubin 0.37, Direct Bilirubin 0.14, AST 20, ALT 18, Alkaline Phosphatase 81, Lactate Dehydrogenase 122, C-React Prot Ext Range 66.30H, Total Protein 6.2, Albumin 3.5, Globulin 2.7 03/29/25 12:30: WBC 9.0, RBC 3.61 L, Hgb 9.6 L, Hct 30.8 L, MCV 85.3, MCH 26.6 L, MCHC 31.2 L, RDW Std Deviation 42.6, RDW Coeff of Chelsie 13.6, Plt Count 220, MPV10.6, Immature Gran % (Auto) 0.300, Neut % (Auto) 72.7 H, Lymph % (Auto) 19.8, Tarrant % (Auto) 5.8, Eos % (Auto) 1.2, Baso % (Auto) 0.2, Absolute Neuts (auto) 6.5, Absolute Lymphs (auto) 1.78, Nucleated RBC % 0 03/27/25 18:25: WBC 11.5 H, RBC 4.84, Hgb 12.7, Hct 39.6, MCV 81.8, MCH 26.2 L, MCHC 32.1, RDW Std Deviation 39.2, RDW Coeff of Chelsie 13.3, Plt Count 338, MPV 10.2, Immature Gran % (Auto) 0.300, Neut % (Auto) 70.1 H, Lymph % (Auto) 21.2, Tarrant % (Auto) 5.9, Eos % (Auto) 2.2, Baso % (Auto) 0.3, Absolute Neuts (auto) 8.0 H, Absolute Lymphs (auto) 2.43, Nucleated RBC % 0, Sodium 138, Potassium 3.6, Chloride 99, Carbon Dioxide 26.7, Anion Gap 12, BUN 11, Creatinine 0.50 L, Estim Creat Clear Calc 168.45, Est GFR (MDRD) Non-Af 118, BUN/Creatinine Ratio 22.0 H, Glucose 100 H, Hemoglobin A1c 5.7, Calcium 10.7, Magnesium 2.1, Total Bilirubin 0.48, AST 25, ALT 24, Alkaline Phosphatase 119 H, Total Protein 7.7, Albumin 4.7, Globulin 3.0, Albumin/Globulin Ratio 1.6, Lipase > 3000 H, TSH 2.940, Serum , Qual NEGATIVE, Ethyl Alcohol < 10.1 03/27/25 18:30: Urine Color Straw, Urine Clarity Clear, Urine pH 6.0, Ur Specific [place] 1.015, Urine Protein 15 H, Urine Glucose (UA) Normal, Urine Ketones Negative, Urine Occult Blood 25 H, Urine Nitrite Negative, Urine Bilirubin Negative, Urine Urobilinogen Normal, Ur Leukocyte Esterase Negative, Urine RBC 0-5 SEEN, Urine WBC 0-5 SEEN, Ur Squamous Epith Cells 0-5 SEEN, Urine Bacteria 0 SEEN, Urine Mucus 1+ 03/28/25 05:26: WBC 6.8, RBC 3.96 L, Hgb 10.8 L, Hct 33.2 L, MCV 83.8, MCH 27.3,MCHC 32.5, RDW Std Deviation 41.9, RDW Coeff of Chelsie 13.6, Plt Count 241, MPV 10.2, Immature Gran % (Auto) 0.300, Neut % (Auto) 69.0, Lymph % (Auto) 23.2, Tarrant % (Auto) 4.4, Eos % (Auto) 2.8, Baso % (Auto) 0.3, Absolute Neuts (auto) 4.7, Absolute Lymphs (auto) 1.58, Nucleated RBC % 0, Sodium 139, Potassium 4.1, Chloride 105, Carbon Dioxide 26.6, Anion Gap 7, BUN 13, Creatinine 0.58 L, EstimCreat Clear Calc 145.11, Est GFR (MDRD) Non-Af 114, BUN/Creatinine Ratio 22.3 H,Glucose 118 H, Calcium 9.6, Phosphorus 3.0, Total Bilirubin 0.31, AST 19, ALT 18, Alkaline Phosphatase 82, Total Protein 6.3, Albumin 3.6, Globulin 2.7, Albumin/Globulin Ratio 1.4, Triglycerides 77, Cholesterol 136, LDL Cholesterol, Calc 73, VLDL Cholesterol 15, HDL Cholesterol 48, Cholesterol/HDL Ratio 2.85, Lipase 1356 H Clinical Impression(s) from Imaging Studies Abdomen/Pelvis CT 03/27/25 19:03 IMPRESSION: Findings compatible with acute pancreatitis. Potential areas of necrotizing pancreatitis within the head. Similar findings are noted on the previous study. Reading Location: [id number] MRCP 03/28/25 02:12 IMPRESSION: Negative for choledocholithiasis. Pancreatitis. Reading Location: [facility] Charges/Coding Visit Charges Inpatient E&M: 23642 Subs Hosp L2 03/29/25 1550 <Electronically signed by Niranjan Noe MD> Cosigner Signature (if applicable): CC: ~ Signed [facility] Work Phone: [phone]) 733-880810-10-2025 Progress note [facility] Medical Records Department [address] [place] [id number] Progress Note - Hospitalist 03/29/25 5466 MR#: [id number] Acct: [id number] Name: CASIMIRO LIU Rep #:[id number] : 1980 44 From: Niranjan Burris PCP: Dr. Mary Escobar MD Status:ADM IN Location: [facility] [id number] Reason for Visit Chief Complaint: Epigastric Pain and Nausea. Objective Data Objective Data Vital Signs: Vital Signs Temp Pulse Resp BP Pulse Ox O2 Del Method O2 Flow Rate 98.9 F 87 18 155/95 H 96 Nasal Cannula 2 03/29/25 11:24 03/29/25 11:24 03/29/25 11:24 03/29/25 11:24 03/29/25 11:24 03/29/25 11:24 03/29/25 11:24 Oxygen Flow Rate (L/min) 2 Oxygen Delivery Method Nasal Cannula Weight: 229 lb 11.547 oz Body Mass Index (BMI) 39.2 Intake & Output: Intake and Output for Last 24 Hours 03/27/25 03/28/25 03/29/25 23:59 23:59 23:59 Intake Total 1200 / 1200 6588.33 / 6588.33 4245 / 4245 Balance 1200 / 1200 6588.33 / 6588.33 4245 / 4245 Lab / Micro Data 03/29/25 12:30 03/29/25 04:46 Labs: Laboratory Results - last 24 hr 03/28/25 05:26: Lactate Dehydrogenase 122 03/29/25 04:46: Sodium 135, Potassium 4.1, Chloride 101, Carbon Dioxide 22.1, Anion Gap 12, BUN 9, Creatinine 0.45 L, Estim Creat Clear Calc 187.63, Est GFR (MDRD) Non-Af 121, BUN/Creatinine Ratio 18.8, Glucose 106 H, Calcium 9.3, Phosphorus 2.7, Total Bilirubin 0.37, Direct Bilirubin 0.14, AST 20,ALT 18, Alkaline Phosphatase 81, Lactate Dehydrogenase 122, C-React Prot Ext Range 66.30H, Total Protein 6.2, Albumin 3.5, Globulin 2.7 03/29/25 12:30: WBC 9.0, RBC 3.61 L, Hgb 9.6 L, Hct 30.8 L, MCV 85.3, MCH 26.6 L, MCHC 31.2 L, RDW Std Deviation 42.6, RDW Coeff of Chelsie 13.6, Plt Count 220, MPV10.6, Immature Gran % (Auto) 0.300, Neut % (Auto) 72.7 H, Lymph % (Auto) 19.8, Tarrant % (Auto) 5.8, Eos % (Auto) 1.2, Baso % (Auto) 0.2, Absolute Neuts (auto) 6.5, Absolute Lymphs (auto) 1.78, Nucleated RBC % 0 Radiography Diagnostic Testing: Radiology Impression MRCP 03/28/25 02:12 IMPRESSION: Negative for choledocholithiasis. Pancreatitis. Reading Location: [facility] Physical Exam Narrative Seen and examined. Patient was started on liquid diet and advance to full liquid. Admitted with 2 days of severe epigastric/abdominal pain 03/29. She had outsidefatty food on Tuesday passed gas last time on Tuesday. She had a small bowel movement yesterday. She did not measure hertemperature but was sweating and cold and used for blankets She had biliary stent in November and was removed subsequently. Physical exam General: Alert, Oriented x3, Cooperative. BMI 39.0 kg/m?, obesity grade 2 HEENT: Atraumatic, PERRLA, EOMI, Normocephalic. Oral: No Gingival or Mucosal Lesions/ Ulcerations Neck: Supple, No JVD, Negative Carotid Bruits Chest wall/Lungs: Air entry diminished in bilateral lung bases. No crepitation/rhonchi Cardiovascular: Regular rate and rhythm, Normal S1,S2, No M/G/R Abdomen: Bowel Sounds sluggish. Soft, mild tenderness present in epigastric/upper abdomen. No rebound tenderness. : No dysuria. No renal angle tenderness. No suprapubic tenderness. Extremities: No edema, Capillary Refill Less than 3 Seconds Skin: No rashes, No breakdown Musculoskeletal: No Tenderness to Palpation of Joints or Extremities Neurological: Cranial nerves II-XII grossly intact, DTR 2+/4. No acute focal neurological deficit. Psych/Mental Status: Normal Affect, Appropriate. Assessment & Plan Assessment/Plan (1) Acute recurrent pancreatitis: (2) Intractable abdominal pain: (3) Leukocytosis: QUALIFIERS: Leukocytosis type: unspecified Qualified Code(s): D72.829 - Elevated white blood cell count, unspecified (4) Nausea: (5) Obesity (BMI 30-39.9): PLAN: Plan 44-year-old female admitted with severe epigastric pain with high lipase and CT finding suggestive of acute pancreatitis with potential area of necrotizing pancreatitis within head of pancreas: 1. Acute on recurrent pancreatitis with CT reporting a potential necrotizing pancreatitis: Patient is being admitted to [facility] floor. Patient had subjective chills and drenching sweats at home but no measured fever. Lipase 1356, more than 10 times ULN. [facility]'s criteria at admission 0 but LDH not available. LDH ordered. N.p.o. IV fluid with aggressive rehydration. On empiric IV meropenem with CTreporting of potential necrotizing pancreatitis. Pantoprazole for tomorrow IV daily. Supportive treatment will for nausea or vomiting and pain control. CT abdomen/pelvis with IV contrast individually reviewed. I agree moderate fat stranding with hazy/indistinct mesentery suggesting acute pancreatitis. No focal fluid collection or abscess or pseudocyst. Reporting raise suspicion of necrotizing pancreatitis. MRCP is ordered. No fever.. Patient on IVmeropenem. Mild leukocytosis resolved. 03/29: Patient tolerated clear liquid diet advance to full liquid. Patient had MRCP which is negative for choledocholithiasis and shows pancreatitis with increased signal in the tail with retroperitoneal fluid. No liver or pancreaticmass. No dilatation of extrahepatic biliary duct or pancreatic duct. Patient started on Creon 2 tablets 3 times daily with liquid diet. Labs done today shows decreasing hematocrit 3%. [facility] criteria at admission and repeat 48 hours is 0. Continue IV antibiotics. 2. 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 Sotelo (November 29, 2024) with subsequent removal of biliary stent with surgical cholecystectomy. Lipid profile within normal limit. TG 77 03/29: MRCP does not show choledocholithiasis as mentioned above 3. Obesity (class III); with BMI of 39.3 this admission adding to the burden ofdisease outlined in #1 & #2 - Weight loss will be recommended with patient explaining she was previously on topiramate to help lose weight but she stopped taking it because of side effects causing mental impairment. Check TSH. This complicates her case and may hamper recovery. 4. Essential hypertension; on amlodipine - Hold oral agents until further notice. Give hydralazine IV prn for systolic blood pressure > 160 mmHg. 5. Former tobacco abuse - Noted. 6. DVT/GI prophylaxis - Enoxaparin 40 mg sq daily plus SCD's. Pantoprazole 40 mg IV daily. Laboratory Results 03/28/25 05:26: Lactate Dehydrogenase 122 03/29/25 04:46: Sodium 135, Potassium 4.1, Chloride 101, Carbon Dioxide 22.1, Anion Gap 12, BUN 9, Creatinine 0.45 L, Estim Creat Clear Calc 187.63, Est GFR (MDRD) Non-Af 121, BUN/Creatinine Ratio 18.8, Glucose 106 H, Calcium 9.3, Phosphorus 2.7, Total Bilirubin 0.37, Direct Bilirubin 0.14, AST 20,ALT 18, Alkaline Phosphatase 81, Lactate Dehydrogenase 122, C-React Prot Ext Range 66.30H, Total Protein 6.2, Albumin 3.5, Globulin 2.7 03/29/25 12:30: WBC 9.0, RBC 3.61 L, Hgb 9.6 L, Hct 30.8 L, MCV 85.3, MCH 26.6 L, MCHC 31.2 L, RDW Std Deviation 42.6, RDW Coeff of Chelsie 13.6, Plt Count 220, MPV10.6, Immature Gran % (Auto) 0.300, Neut % (Auto) 72.7 H, Lymph % (Auto) 19.8, [place] % (Auto) 5.8, Eos % (Auto) 1.2, Baso % (Auto) 0.2, Absolute Neuts (auto) 6.5, Absolute Lymphs (auto) 1.78, Nucleated RBC % 0 03/27/25 18:25: WBC 11.5 H, RBC 4.84, Hgb 12.7, Hct 39.6, MCV 81.8, MCH 26.2 L, MCHC 32.1, RDW Std Deviation 39.2, RDW Coeff of Chelsie 13.3, Plt Count 338, MPV 10.2, Immature Gran % (Auto) 0.300, Neut %(Auto) 70.1 H, Lymph % (Auto) 21.2, [place] % (Auto) 5.9, Eos % (Auto) 2.2, Baso % (Auto) 0.3, Absolute Neuts (auto) 8.0 H, Absolute Lymphs (auto) 2.43, Nucleated RBC % 0, Sodium 138, Potassium 3.6, Chloride 99, Carbon Dioxide 26.7, Anion Gap 12, BUN 11, Creatinine 0.50 L, Estim Creat Clear Calc 168.45, Est GFR (MDRD) Non-Af 118, BUN/Creatinine Ratio 22.0 H, Glucose 100 H, Hemoglobin A1c 5.7, Calcium 10.7, Magnesium 2.1, Total Bilirubin 0.48, AST 25, ALT 24, Alkaline Phosphatase 119 H, Total Protein 7.7, Albumin 4.7, Globulin 3.0, Albumin/Globulin Ratio 1.6, Lipase > 3000 H, TSH 2.940, Serum , Qual NEGATIVE, Ethyl Alcohol < 10.1 03/27/25 18:30: Urine Color Straw, Urine Clarity Clear, Urine pH 6.0, Ur Specific [place] 1.015, Urine Protein 15 H, Urine Glucose (UA) Normal, Urine Ketones Negative, Urine Occult Blood 25 H, Urine Nitrite Negative, Urine Bilirubin Negative, Urine Urobilinogen Normal, Ur Leukocyte Esterase Negative, Urine RBC 0-5 SEEN, Urine WBC 0-5 SEEN, Ur Squamous Epith Cells 0-5 SEEN, Urine Bacteria 0 SEEN, Urine Mucus 1+ 03/28/25 05:26: WBC 6.8, RBC 3.96 L, Hgb 10.8 L, Hct 33.2 L, MCV 83.8, MCH 27.3,MCHC 32.5, RDW Std Deviation 41.9, RDW Coeff of Chelsie 13.6, Plt Count 241, MPV 10.2, Immature Gran % (Auto) 0.300, Neut %(Auto) 69.0, Lymph % (Auto) 23.2, T[place] % (Auto) 4.4, Eos % (Auto) 2.8, Baso % (Auto) 0.3, Absolute Neuts (auto) 4.7, Absolute Lymphs (auto) 1.58, Nucleated RBC % 0, Sodium 139, Potassium 4.1, Chloride 105, Carbon Dioxide 26.6, Anion Gap 7, BUN 13, Creatinine 0.58 L, EstimCreat Clear Calc 145.11, Est GFR (MDRD) Non-Af 114, BUN/Creatinine Ratio 22.3 H,Glucose 118 H, Calcium 9.6, Phosphorus 3.0, Total Bilirubin 0.31, AST 19, ALT 18, Alkaline Phosphatase 82, Total Protein 6.3, Albumin 3.6, Globulin2.7, Albumin/Globulin Ratio 1.4, Triglycerides 77, Cholesterol 136, LDL Cholesterol, Calc 73, VLDL Cholesterol 15, HDL Cholesterol 48, Cholesterol/HDL Ratio 2.85, Lipase 1356 H Clinical Impression(s) from Imaging Studies Abdomen/Pelvis CT 03/27/25 19:03 IMPRESSION: Findings compatible with acute pancreatitis. Potential areas of necrotizing pancreatitis within thehead. Similar findings are noted on the previous study. Reading Location: [id number] MRCP 03/28/25 02:12 IMPRESSION: Negative for choledocholithiasis. Pancreatitis. Reading Location: [facility] Charges/Coding Visit Charges Inpatient E&M: 21387 Subs Hosp L2 03/29/25 1550 Cosigner Signature (if applicable): CC: ~ Signed [facility]10-09-2025 Consult note Author Arturo Sotelo [facility] Note Date/Time March 28, 2025 5: 48pm [facility] Medical Records Department [address] [place] [address] Consultation - GI 03/28/25 1741 MR#: [id number] Acct: [id number] Name: CASIMIRO LIU Rep #:[id number] : 1980 44 From: Arturo Sotelo DO PCP: Dr. Mary Escobar MD Status:ADM IN Location: [facility] [id number] ADDENDUM by Arturo Sotelo DO on 03/28/25 at 1747 Visit Charges Inpatient E&M: 87020 Init Hosp L3 03/28/25 1747<Electronically signed by Arturo Sotelo DO> Cosigner Signature (if applicable): cc: Dr. Mary Escobar MD ~* Signed HPI Consult Data Date of Consult: 03/28/25 HPI Narrative Reason for Consultation: Pancreatitis HPI Narrative: CASIMIRO LIU, is a 44 F who presents [44-year-old woman with a known history of idiopathic recurrent acute pancreatitis who reports a new onset of abdominal pain. The pain is described as severe, located in the epigastric region with radiation to the back, and is associated with nausea and vomiting. She denies any alcohol use, and her gallbladder was removed several years ago. Her most recent episode of pancreatitis occurred three months ago.? * Lipase:?Elevated . * IgG4, KENZIE, ANCA:?Within normal limits. * Routine labs (CBC, BMP):?Hemoglobin hematocrit has decreased appropriately with lactated Ringer's. Imaging Studies: * CT scan (Abdomen/Pelvis):?Confirmed acute pancreatitis with possible changes consistent with necrosis in the pancreatic head. Other findings are pending formal read.? [facility] Depression Former smoker Migraines Gastric reflux History of biliary stent insertion Intractable abdominal pain Acute recurrent pancreatitis Hypertension Pancreatitis Hypertension Anxiety Home Medications ?Medication ?Instructions ?Recorded ?Last Taken ?Type ipratropium bromide 42 mcg (0.06 1 spray intranasal TI D PRN PRN 09/12/24 Unknown History %) nasal spray allergy symptoms sennosides 8.6 mg-docusate sodium 2 tab PO BID PRN Con stipation #0 10/22/24 Unknown Rx 50 mg tablet (Stimulant Laxative tabs Plus) amlodipine 5 mg tablet 5 mg PO DAILY 03/27/25 Unkno wn History fluoxetine 60 mg tablet 60 mg PO DAILY anxiety/depre ssion 03/27/25 Unknown History topiramate 25 mg tablet 25 mg PO BID 03/27/25 Unknow n History Allergy/AdvReac Type Severity Reaction Status Date / Time No Known Allergies Allergy Verified 03/27/25 17:40 Family History Other Hypertension Surgical History S/P ERCP Hx of cholecystectomy Social History Smoking Status: Former smoker alcohol intake: current alcohol intake frequency: 0-2 drinks per day substance use type: does not use ROS Constitutional Constitutional: Denies fatigue, fever(s), poor appetite, weight gain or weight loss Gastrointestinal Gastrointestinal: Denies belching, bloating, change in bowel habits, change in stool character, chewing difficulty, coffee ground emesis, constipation, cramping, diarrhea, dyspepsia, dysphagia, early satiety, excessive flatus, fecal incontinence, heartburn, hematemesis, hematochezia, hemorrhoids, loose stools, melena, nausea, odynophagia, rectal bleeding, tenesmus, vomiting or weight changes Physical Exam Const alert, oriented x3, no apparent distress and healthy appearing General Appearance: cooperative GI normal to inspection, nondistended, normoactive bowel sounds, soft to palpation, non-tender and non-distended Percussion: normal to percussion Rectal Exam: deferred Lab / Micro Data 03/28/25 05:26 03/28/25 05:26 Labs: Laboratory Results - last 24 hr 03/27/25 18:25: WBC 11.5 H, RBC 4.84, Hgb 12.7, Hct 39.6, MCV 81.8, MCH 26.2 L, MCHC 32.1, RDW Std Deviation 39.2, RDW Coeff of Chelsie 13.3, Plt Count 338, MPV 10.2, Immature Gran % (Auto) 0.300, Neut % (Auto) 70.1 H, Lymph % (Auto) 21.2, [place] % (Auto) 5.9, Eos % (Auto) 2.2, Baso % (Auto) 0.3, Absolute Neuts (auto) 8.0 H, Absolute Lymphs (auto) 2.43, Nucleated RBC % 0, Sodium 138, Potassium 3.6, Chloride 99, Carbon Dioxide 26.7, Anion Gap 12, BUN 11, Creatinine 0.50 L, Estim Creat Clear Calc 168.45, Est GFR (MDRD) Non-Af 118, BUN/Creatinine Ratio 22.0 H, Glucose 100 H, Hemoglobin A1c 5.7, Calcium 10.7, Magnesium 2.1, Total Bilirubin 0.48, AST 25, ALT 24, Alkaline Phosphatase 119 H, Total Protein 7.7, Albumin 4.7, Globulin 3.0, Albumin/Globulin Ratio 1.6, Lipase > 3000 H, TSH 2.940, Serum , Qual NEGATIVE, Ethyl Alcohol < 10.1 03/27/25 18:30: Urine Color Straw, Urine Clarity Clear, Urine pH 6.0, Ur Specific [place] 1.015, Urine Protein 15 H, Urine Glucose (UA) Normal, Urine Ketones Negative, Urine Occult Blood 25 H, Urine Nitrite Negative, Urine Bilirubin Negative, Urine Urobilinogen Normal, Ur Leukocyte Esterase Negative, Urine RBC 0-5 SEEN, Urine WBC 0-5 SEEN, Ur Squamous Epith Cells 0-5 SEEN, Urine Bacteria 0 SEEN, Urine Mucus 1+ 03/28/25 05:26: WBC 6.8, RBC 3.96 L, Hgb 10.8 L, Hct 33.2 L, MCV 83.8, MCH 27.3, MCHC 32.5, RDW Std Deviation 41.9, RDW Coeff of Chelsie 13.6, Plt Count 241, MPV 10.2, Immature Gran % (Auto) 0.300, Neut % (Auto) 69.0, Lymph % (Auto) 23.2, Tarrant % (Auto) 4.4, Eos % (Auto) 2.8, Baso % (Auto) 0.3, Absolute Neuts (auto) 4.7, Absolute Lymphs (auto) 1.58, Nucleated RBC % 0, Sodium 139, Potassium 4.1, Chloride 105, Carbon Dioxide 26.6, Anion Gap 7, BUN 13, Creatinine 0.58 L, Estim Creat Clear Calc 145.11, Est GFR (MDRD) Non-Af 114, BUN/Creatinine Ratio 22.3 H, Glucose 118 H, Calcium 9.6, Phosphorus 3.0, Total Bilirubin 0.31, AST 19, ALT 18, Alkaline Phosphatase 82, Lactate Dehydrogenase 122, Total Protein 6.3, Albumin 3.6, Globulin 2.7, Albumin/Globulin Ratio 1.4, Triglycerides 77, Cholesterol 136, LDL Cholesterol, Calc 73, VLDL Cholesterol 15, HDL Cholesterol 48, Cholesterol/HDL Ratio 2.85, Lipase 1356 H Imaging Radiology Impression Abdomen/Pelvis CT 03/27/25 19:03 IMPRESSION: Findings compatible with acute pancreatitis. Potential areas of necrotizing pancreatitis within the head. Similar findings are noted on the previous study. Reading Location: [id number] Assessment & Plan Assessment/Plan (1) Leukocytosis: QUALIFIERS: Leukocytosis type: unspecified Qualified Code(s): D72.829 - Elevated white blood cell count, unspecified (2) Nausea: (3) Choledocholithiasis: PLAN: Assessment 44-year-old pleasant woman presenting with an acute episode of recurrent idiopathic pancreatitis.? * Acute recurrent pancreatitis:?The patient's presentation with abdominal pain and elevated lipase is consistent with an acute pancreatitis flare. Her history of recurrent episodes without an identified cause (idiopathic) is noted. The CT findings of possible necrosis indicate a severe case. * Pancreatic necrosis:?The CT scan findings of potential pancreatic necrosis in the head raise concern for a serious complication of acute pancreatitis. The next steps must focus on confirming the extent and status (sterile vs. infected) of the necrosis. * Idiopathic etiology:?Although common causes like alcohol and gallstones have been ruled out, a definitive cause for her recurrent pancreatitis has not been established. Further investigations are needed, as about 10?30% of recurrent pancreatitis cases remain idiopathic after an initial workup. Potential underlying causes to explore include genetic mutations, anatomical abnormalities (e.g., pancreas divisum), and sphincter of Oddi dysfunction Plan * Hospital Admission:?Admit to the hospital for aggressive intravenous (IV) fluid resuscitation and supportive care. * Pain and Symptom Management: * Initiate strong analgesia for abdominal pain. * Keep patient nothing by mouth (NPO) to rest the pancreas. * Diagnostics: * MRCP:?Proceed with the pending magnetic resonance cholangiopancreatography to evaluate the biliary and pancreatic ducts in more detail. This will help assess for ductal abnormalities like pancreas divisum or other obstructions. * Genetic Testing:?Given the recurrent and idiopathic nature of her pancreatitis, consider testing for mutations in the?CFTR, PRSS1,?and?SPINK1 ?genes. * Necrosis Management: * Monitor for signs of infection . Infected necrosis has a higher mortality rate. * Continue meropenem * Nutrition: * Start early enteral feeding via nasogastric or nasojejunal tube once the patient is able to tolerate it. This is preferable to parenteral nutrition to reduce the risk of infection. 03/28/25 8087 <Electronically signed by Arturo Friend > Cosigner Signature (if applicable): CC: Dr. Mary Escobar MD~ Signed [facility] Work Phone: [phone] Consult note [facility] Medical Records Department [address] [place] [address] Consultation - GI 03/28/25 174 MR#: [id number] Acct: [id number] Name: CASIMIRO LIU Rep #:[id number] : 1980 44 From: Arturo Sotelo DO PCP: Dr. Mary Escobar MD Status:ADM IN Location: MS3 [id number] ADDENDUM by Arturo Sotelo DO on 03/28/25 at 1747 Visit Charges Inpatient E&M: 49583 Init Hosp L3 03/28/25 174 Cosigner Signature (if applicable): cc: Dr. Mary Escobar MD ~* Signed HPI Consult Data Date of Consult: 03/28/25 HPI Narrative Reason for Consultation: Pancreatitis HPI Narrative: CASIMIRO LIU, is a 44 F who presents [44-year-old woman with a known history of idiopathic recurrent acute pancreatitis who reports a new onset of abdominal pain. The pain is described as severe,located in the epigastric region with radiation to the back, and is associated with nausea and vomiting. She denies any alcohol use, and her gallbladder was removed several years ago. Her most recentepisode of pancreatitis occurred three months ago.? * Lipase:?Elevated . * IgG4, KENZIE, ANCA:?Within normal limits. * Routine labs (CBC, BMP):?Hemoglobin hematocrit has decreased appropriately with lactated Ringer's. Imaging Studies: * CT scan (Abdomen/Pelvis):?Confirmed acute pancreatitis with possible changes consistent with necrosis in the pancreatic head. Other findings are pending formal read.? [facility] Medical History Depression Former smoker Migraines Gastric reflux History of biliary stent insertion Intractable abdominal pain Acute recurrent pancreatitis Hypertension Pancreatitis Hypertension Anxiety Home Medications ?Medication ?Instructions ?Recorded ?Last Taken ?Type ipratropium bromide 42 mcg (0.06 1 spray intranasal TI D PRN PRN 09/12/24 Unknown History %) nasal spray allergy symptoms sennosides 8.6 mg-docusate sodium 2 tab PO BID PRN Con stipation #0 10/22/24 Unknown Rx 50 mg tablet (Stimulant Laxative tabs Plus) amlodipine 5 mg tablet 5 mg PO DAILY 03/27/25 Unkno wn History fluoxetine 60 mg tablet 60 mg PO DAILY anxiety/depre ssion 03/27/25 Unknown History topiramate 25 mg tablet 25 mg PO BID 03/27/25 Unknow n History Allergy/AdvReac Type Severity Reaction Status Date / Time No Known Allergies Allergy Verified 03/27/25 17:40 Family History Other Hypertension Surgical History S/P ERCP Hx of cholecystectomy Social History Smoking Status: Former smoker alcohol intake: current alcohol intake frequency: 0-2 drinks per day substance use type: does not use ROS Constitutional Constitutional: Denies fatigue, fever(s), poor appetite, weight gain or weight loss Gastrointestinal Gastrointestinal: Denies belching, bloating, change in bowel habits, change in stool character, chewing difficulty, coffee ground emesis, constipation, cramping, diarrhea, dyspepsia, dysphagia, earlysatiety, excessive flatus, fecal incontinence, heartburn, hematemesis, hematochezia, hemorrhoids, loose stools, melena, nausea, odynophagia, rectal bleeding, tenesmus, vomiting or weight changes Physical Exam Const alert, oriented x3, no apparent distress and healthy appearing General Appearance: cooperative GI normal to inspection, nondistended, normoactive bowel sounds, soft to palpation, non-tender and non-distended Percussion: normal to percussion Rectal Exam: deferred Lab / Micro Data 03/28/25 05:26 03/28/25 05:26 Labs: Laboratory Results - last 24 hr 03/27/25 18:25: WBC 11.5 H, RBC 4.84, Hgb 12.7, Hct 39.6, MCV 81.8, MCH 26.2 L, MCHC 32.1, RDW Std Deviation 39.2, RDW Coeff of Chelsie 13.3, Plt Count 338, MPV 10.2, Immature Gran % (Auto) 0.300, Neut %(Auto) 70.1 H, Lymph % (Auto) 21.2, Tarrant % (Auto) 5.9, Eos % (Auto) 2.2, Baso % (Auto) 0.3, Absolute Neuts (auto) 8.0 H, Absolute Lymphs (auto) 2.43, Nucleated RBC % 0, Sodium 138, Potassium 3.6, Chloride 99, Carbon Dioxide 26.7, Anion Gap 12, BUN 11, Creatinine 0.50 L, Estim Creat Clear Calc 168.45, Est GFR (MDRD) Non-Af 118, BUN/Creatinine Ratio 22.0 H, Glucose 100 H, Hemoglobin A1c 5.7, Calcium 10.7, Magnesium 2.1, Total Bilirubin 0.48, AST 25, ALT 24, Alkaline Phosphatase 119 H, Total Protein 7.7, Albumin 4.7, Globulin 3.0, Albumin/Globulin Ratio 1.6, Lipase > 3000 H, TSH 2.940, Serum , Qual NEGATIVE, Ethyl Alcohol < 10.1 03/27/25 18:30: Urine Color Straw, Urine Clarity Clear, Urine pH 6.0, Ur Specific [place] 1.015, Urine Protein 15 H, Urine Glucose (UA) Normal, Urine Ketones Negative, Urine Occult Blood 25 H, Urine Nitrite Negative, Urine Bilirubin Negative, Urine Urobilinogen Normal, Ur Leukocyte Esterase Negative, Urine RBC 0-5 SEEN, Urine WBC 0-5 SEEN, Ur Squamous Epith Cells 0-5 SEEN, Urine Bacteria 0 SEEN, Urine Mucus 1+ 03/28/25 05:26: WBC 6.8, RBC 3.96 L, Hgb 10.8 L, Hct 33.2 L, MCV 83.8, MCH 27.3, MCHC 32.5, RDW StdDeviation 41.9, RDW Coeff of Chelsie 13.6, Plt Count 241, MPV 10.2, Immature Gran % (Auto) 0.300, Neut % (Auto) 69.0, Lymph % (Auto) 23.2, Tarrant % (Auto) 4.4, Eos % (Auto) 2.8, Baso % (Auto) 0.3, AbsoluteNeuts (auto) 4.7, Absolute Lymphs (auto) 1.58, Nucleated RBC % 0, Sodium 139, Potassium 4.1, Chloride 105, Carbon Dioxide 26.6, Anion Gap 7, BUN 13, Creatinine 0.58 L, Estim Creat Clear Calc 145.11, Est GFR (MDRD) Non-Af 114, BUN/Creatinine Ratio 22.3 H, Glucose 118 H, Calcium 9.6, Phosphorus 3.0, Total Bilirubin 0.31, AST 19, ALT 18, Alkaline Phosphatase 82, Lactate Dehydrogenase 122, Total Protein 6.3, Albumin 3.6, Globulin 2.7, Albumin/Globulin Ratio 1.4, Triglycerides 77, Cholesterol 136, LDL Cholesterol, Calc 73, VLDL Cholesterol 15, HDL Cholesterol 48, Cholesterol/HDL Ratio 2.85, [id number] H Imaging Radiology Impression Abdomen/Pelvis CT 03/27/25 19:03 IMPRESSION: Findings compatible with acute pancreatitis. Potential areas of necrotizing pancreatitis within thehead. Similar findings are noted on the previous study. Reading Location: [id number] Assessment & Plan Assessment/Plan (1) Leukocytosis: QUALIFIERS: Leukocytosis type: unspecified Qualified Code(s): D72.829 - Elevated white blood cell count, unspecified (2) Nausea: (3) Choledocholithiasis: PLAN: Assessment 44-year-old pleasant woman presenting with an acute episode of recurrent idiopathic pancreatitis.? * Acute recurrent pancreatitis:?The patient's presentation with abdominal pain and elevated lipase is consistent with an acute pancreatitis flare. Her history of recurrent episodes without an identified cause (idiopathic) is noted. The CT findings of possible necrosis indicate a severe case. * Pancreatic necrosis:?The CT scan findings of potential pancreatic necrosis in the head raise concern for a serious complication of acute pancreatitis. The next steps must focus on confirming the extent and status (sterile vs. infected) of the necrosis. * Idiopathic etiology:?Although common causes like alcohol and gallstones have been ruled out, a definitive cause for her recurrent pancreatitis has not been established. Further investigations are needed, as about 10?30% of recurrent pancreatitis cases remain idiopathic after an initial workup. Potential underlying causes to explore include genetic mutations, anatomical abnormalities (e.g., pancreas divisum), and sphincter of Oddi dysfunction Plan * Hospital Admission:?Admit to the hospital for aggressive intravenous (IV) fluid resuscitation andsupportive care. * Pain and Symptom Management: * Initiate strong analgesia for abdominal pain. * Keep patient nothing by mouth (NPO) to rest the pancreas. * Diagnostics: * MRCP:?Proceed with the pending magnetic resonance cholangiopancreatography to evaluate the biliary and pancreatic ducts in more detail. This will help assess for ductal abnormalities like pancreas divisum or other obstructions. * Genetic Testing:?Given the recurrent and idiopathic nature of her pancreatitis, consider testing for mutations in the?CFTR, PRSS1,?and?SPINK1 ?genes. * Necrosis Management: * Monitor for signs of infection . Infected necrosis has a higher mortality rate. * Continue meropenem * Nutrition: * Start early enteral feeding via nasogastric or nasojejunal tube once the patient is able to tolerate it. This is preferable to parenteral nutrition to reduce the risk of infection. 03/28/251746 Cosigner Signature (if applicable): CC: Dr. Mary Escobar MD~ Signed [facility]10-09-2025 Progress note Author Niranjan Noe [facility] Note Date/Time March 28, 2025 3: 15pm [facility] Medical Records Department [address] [place] [address] Progress Note - Hospitalist 03/28/25 0741 MR#: [id number] Acct: [id number] Name: CASIMIRO LIU Rep #:[id number] : 1980 44 From: Niranjan Burris PCP: Dr. Mary Escobar MD Status:ADM IN Location: [place] [address] Reason for Visit Chief Complaint: Epigastric Pain and Nausea. Objective Data Objective Data Vital Signs: Vital Signs Temp Pulse Resp BP Pulse Ox O2 Del Method 97.6 F L 70 14 149/105 H 97 Room Air 03/28/25 07:30 03/28/25 07:30 03/28/25 07:30 03/28/25 07:30 03/28/25 07:30 03/28/25 07:30 Oxygen Delivery Method Room Air Weight: 228 lb 6.382 oz Body Mass Index (BMI) 38.9 Intake & Output: Intake and Output for Last 24 Hours 03/26/25 03/27/25 03/28/25 23:59 23:59 23:59 Intake Total 1200 / 1200 1880.00 / 1880.00 Balance 1200 / 1200 1880.00 / 1880.00 Lab / Micro Data 03/28/25 05:26 03/28/25 05:26 Labs: Laboratory Results - last 24 hr 03/27/25 18:25: WBC 11.5 H, RBC 4.84, Hgb 12.7, Hct 39.6, MCV 81.8, MCH 26.2 L, MCHC 32.1, RDW Std Deviation 39.2, RDW Coeff of Chelsie 13.3, Plt Count 338, MPV 10.2, Immature Gran % (Auto) 0.300, Neut % (Auto) 70.1 H, Lymph % (Auto) 21.2, Tarrant % (Auto) 5.9, Eos % (Auto) 2.2, Baso % (Auto) 0.3, Absolute Neuts (auto) 8.0 H, Absolute Lymphs (auto) 2.43, Nucleated RBC % 0, Sodium 138, Potassium 3.6, Chloride 99, Carbon Dioxide 26.7, Anion Gap 12, BUN 11, Creatinine 0.50 L, Estim Creat Clear Calc 168.45, Est GFR (MDRD) Non-Af 118, BUN/Creatinine Ratio 22.0 H, Glucose 100 H, Hemoglobin A1c 5.7, Calcium 10.7, Magnesium 2.1, Total Bilirubin 0.48, AST 25, ALT 24, Alkaline Phosphatase 119 H, Total Protein 7.7, Albumin 4.7, Globulin 3.0, Albumin/Globulin Ratio 1.6, Lipase > 3000 H, TSH 2.940, Serum , Qual NEGATIVE, Ethyl Alcohol < 10.1 03/27/25 18:30: Urine Color Straw, Urine Clarity Clear, Urine pH 6.0, Ur Specific [place] 1.015, Urine Protein 15 H, Urine Glucose (UA) Normal, Urine Ketones Negative, Urine Occult Blood 25 H, Urine Nitrite Negative, Urine Bilirubin Negative, Urine Urobilinogen Normal, Ur Leukocyte Esterase Negative, Urine RBC 0-5 SEEN, Urine WBC 0-5 SEEN, Ur Squamous Epith Cells 0-5 SEEN, Urine Bacteria 0 SEEN, Urine Mucus 1+ 03/28/25 05:26: WBC 6.8, RBC 3.96 L, Hgb 10.8 L, Hct 33.2 L, MCV 83.8, MCH 27.3,MCHC 32.5, RDW Std Deviation 41.9, RDW Coeff of Chelsie 13.6, Plt Count 241, MPV 10.2, Immature Gran % (Auto) 0.300, Neut % (Auto) 69.0, Lymph % (Auto) 23.2, [place] % (Auto) 4.4, Eos % (Auto) 2.8, Baso % (Auto) 0.3, Absolute Neuts (auto) 4.7, Absolute Lymphs (auto) 1.58, Nucleated RBC % 0, Sodium 139, Potassium 4.1, Chloride 105, Carbon Dioxide 26.6, Anion Gap 7, BUN 13, Creatinine 0.58 L, EstimCreat Clear Calc 145.11, Est GFR (MDRD) Non-Af 114, BUN/Creatinine Ratio 22.3 H,Glucose 118 H, Calcium 9.6, Phosphorus 3.0, Total Bilirubin 0.31, AST 19, ALT 18, Alkaline Phosphatase 82, Total Protein 6.3, Albumin 3.6, Globulin 2.7, Albumin/Globulin Ratio 1.4, Triglycerides 77, Cholesterol 136, LDL Cholesterol, Calc 73, VLDL Cholesterol 15, HDL Cholesterol 48, Cholesterol/HDL Ratio 2.85, Lipase 1356 H Radiography Diagnostic Testing: Radiology Impression Abdomen/Pelvis CT 03/27/25 19:03 IMPRESSION: Findings compatible with acute pancreatitis. Potential areas of necrotizing pancreatitis within the head. Similar findings are noted on the previous study. Reading Location: [facility] Physical Exam Narrative Seen and examined. Admitted with 2 days of severe epigastric/abdominal pain 03/29. She had outsidefatty food on Tuesday passed gas last time on Tuesday. She had a small bowel movement yesterday. She did not measure her temperature but was sweating and cold and used for blankets She had biliary stent in November and was removed subsequently. Physical exam General: Alert, Oriented x3, Cooperative. BMI 39.0 kg/m?, obesity grade 2 HEENT: Atraumatic, PERRLA, EOMI, Normocephalic. Oral: No Gingival or Mucosal Lesions/ Ulcerations Neck: Supple, No JVD, Negative Carotid Bruits Chest wall/Lungs: Air entry diminished in bilateral lung bases. No crepitation/rhonchi Cardiovascular: Regular rate and rhythm, Normal S1,S2, No M/G/R Abdomen: Bowel Sounds sluggish. Soft, mild tenderness present in epigastric/upper abdomen. No rebound tenderness. : No dysuria. No renal angle tenderness. No suprapubic tenderness. Extremities: No edema, Capillary Refill Less than 3 Seconds Skin: No rashes, No breakdown Musculoskeletal: No Tenderness to Palpation of Joints or Extremities Neurological: Cranial nerves II-XII grossly intact, DTR 2+/4. No acute focal neurological deficit. Psych/Mental Status: Normal Affect, Appropriate. Assessment & Plan Assessment/Plan (1) Acute recurrent pancreatitis: (2) Intractable abdominal pain: (3) Leukocytosis: QUALIFIERS: Leukocytosis type: unspecified Qualified Code(s): D72.829 - Elevated white blood cell count, unspecified (4) Nausea: (5) Obesity (BMI 30-39.9): PLAN: Plan 44-year-old female admitted with severe epigastric pain with high lipase and CT finding suggestive of acute pancreatitis with potential area of necrotizing pancreatitis within head of pancreas: 1. Acute on recurrent pancreatitis with CT reporting a potential necrotizing pancreatitis: [facility] Patient had subjective chills and drenching sweats at home but no measured fever. Lipase 1356, more than 10 times ULN. Carlos's criteria at admission 0 but LDH not available. LDH ordered. N.p.o. IV fluid with aggressive rehydration. On empiric IV meropenem with CT reporting of potential necrotizing pancreatitis. Pantoprazole for tomorrow IV daily. Supportive treatment will for nausea or vomiting and pain control. CT abdomen/pelvis with IV contrast individually reviewed. I agree moderate fat stranding with hazy/indistinct mesentery suggesting acute pancreatitis. No focal fluid collection or abscess or pseudocyst. Reporting raise suspicion of necrotizing pancreatitis. MRCP is ordered. No fever.. Patient on IV meropenem. Mild leukocytosis resolved. 2. 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 Sotelo (November 29, 2024) with subsequent removal of biliary stent with surgical cholecystectomy. Lipid profile within normal limit. TG 77 3. Obesity (class III); with BMI of 39.3 this admission adding to the burden ofdisease outlined in #1 & #2 - Weight loss will be recommended with patient explaining she was previously on topiramate to help lose weight but she stopped taking it because of side effects causing mental impairment. Check TSH. This complicates her case and may hamper recovery. 4. Essential hypertension; on amlodipine - Hold oral agents until further notice. Give hydralazine IV prn for systolic blood pressure > 160 mmHg. 5. Former tobacco abuse - Noted. 6. DVT/GI prophylaxis - Enoxaparin 40 mg sq daily plus SCD's. Pantoprazole 40 mg IV daily as outlined in #1. Laboratory Results 03/27/25 18:25: WBC 11.5 H, RBC 4.84, Hgb 12.7, Hct 39.6, MCV 81.8, MCH 26.2 L, MCHC 32.1, RDW Std Deviation 39.2, RDW Coeff of Chelsie 13.3, Plt Count 338, MPV 10.2, Immature Gran % (Auto) 0.300, Neut % (Auto) 70.1 H, Lymph % (Auto) 21.2, Tarrant % (Auto) 5.9, Eos % (Auto) 2.2, Baso % (Auto) 0.3, Absolute Neuts (auto) 8.0 H, Absolute Lymphs (auto) 2.43, Nucleated RBC % 0, Sodium 138, Potassium 3.6, Chloride 99, Carbon Dioxide 26.7, Anion Gap 12, BUN 11, Creatinine 0.50 L, Estim Creat Clear Calc 168.45, Est GFR (MDRD) Non-Af 118, BUN/Creatinine Ratio 22.0 H, Glucose 100 H, Hemoglobin A1c 5.7, Calcium 10.7, Magnesium 2.1, Total Bilirubin 0.48, AST 25, ALT 24, Alkaline Phosphatase 119 H, Total Protein 7.7, Albumin 4.7, Globulin 3.0, Albumin/Globulin Ratio 1.6, Lipase > 3000 H, TSH 2.940, Serum , Qual NEGATIVE, Ethyl Alcohol < 10.1 03/27/25 18:30: Urine Color Straw, Urine Clarity Clear, Urine pH 6.0, Ur Specific [place] 1.015, Urine Protein 15 H, Urine Glucose (UA) Normal, Urine Ketones Negative, Urine Occult Blood 25 H, Urine Nitrite Negative, Urine Bilirubin Negative, Urine Urobilinogen Normal, Ur Leukocyte Esterase Negative, Urine RBC 0-5 SEEN, Urine WBC 0-5 SEEN, Ur Squamous Epith Cells 0-5 SEEN, Urine Bacteria 0 SEEN, Urine Mucus 1+ 03/28/25 05:26: WBC 6.8, RBC 3.96 L, Hgb 10.8 L, Hct 33.2 L, MCV 83.8, MCH 27.3,MCHC 32.5, RDW Std Deviation 41.9, RDW Coeff of Chelsie 13.6, Plt Count 241, MPV 10.2, Immature Gran % (Auto) 0.300, Neut % (Auto) 69.0, Lymph % (Auto) 23.2, T[place] % (Auto) 4.4, Eos % (Auto) 2.8, Baso % (Auto) 0.3, Absolute Neuts (auto) 4.7, Absolute Lymphs (auto) 1.58, Nucleated RBC % 0, Sodium 139, Potassium 4.1, Chloride 105, Carbon Dioxide 26.6, Anion Gap 7, BUN 13, Creatinine 0.58 L, EstimCreat Clear Calc 145.11, Est GFR (MDRD) Non-Af 114, BUN/Creatinine Ratio 22.3 H,Glucose 118 H, Calcium 9.6, Phosphorus 3.0, Total Bilirubin 0.31, AST 19, ALT 18, Alkaline Phosphatase 82, Total Protein 6.3, Albumin 3.6, Globulin 2.7, Albumin/Globulin Ratio 1.4, Triglycerides 77, Cholesterol 136, LDL Cholesterol, Calc 73, VLDL Cholesterol 15, HDL Cholesterol 48, Cholesterol/HDL Ratio 2.85, Lipase 1356 H Charges/Coding Visit Charges Inpatient E&M: 26755 Subs Hosp L2 03/28/25 1515 <Electronically signed by Niranjan Noe MD> Cosigner Signature (if applicable): CC: ~ Signed [facility] Work Phone: 1(140) 362-725610-09-2025 Progress note [facility] Medical Records Department [address] [place] [address] Progress Note - Hospitalist 03/28/25 0741 MR#: [id number] Acct: [id number] Name: CASIMIRO LIU Rep #:[id number] : 1980 44 From: Niranjan Burris PCP: Dr. Mary Escobar MD Status:ADM IN Location: MS3 [id number] Reason for Visit Chief Complaint: Epigastric Pain and Nausea. Objective Data Objective Data Vital Signs: Vital Signs Temp Pulse Resp BP Pulse Ox O2 Del Method 97.6 F L 70 14 149/105 H 97 Room Air 03/28/25 07:30 03/28/25 07:30 03/28/25 07:30 03/28/25 07:30 03/28/25 07:30 03/28/25 07:30 Oxygen Delivery Method Room Air Weight: 228 lb 6.382 oz Body Mass Index (BMI) 38.9 Intake & Output: Intake and Output for Last 24 Hours 03/26/25 03/27/25 03/28/25 23:59 23:59 23:59 Intake Total 1200 / 1200 1880.00 / 1880.00 Balance 1200 / 1200 1880.00 / 1880.00 Lab / Micro Data 03/28/25 05:26 03/28/25 05:26 Labs: Laboratory Results - last 24 hr 03/27/25 18:25: WBC 11.5 H, RBC 4.84, Hgb 12.7, Hct 39.6, MCV 81.8, MCH 26.2 L, MCHC 32.1, RDW Std Deviation 39.2, RDW Coeff of Chelsie 13.3, Plt Count 338, MPV 10.2, Immature Gran % (Auto) 0.300, Neut %(Auto) 70.1 H, Lymph % (Auto) 21.2, [place] % (Auto) 5.9, Eos % (Auto) 2.2, Baso % (Auto) 0.3, Absolute Neuts (auto) 8.0 H, Absolute Lymphs (auto) 2.43, Nucleated RBC % 0, Sodium 138, Potassium 3.6, Chloride 99, Carbon Dioxide 26.7, Anion Gap 12, BUN 11, Creatinine 0.50 L, Estim Creat Clear Calc 168.45, Est GFR (MDRD) Non-Af 118, BUN/Creatinine Ratio 22.0 H, Glucose 100 H, Hemoglobin A1c 5.7, Calcium 10.7, Magnesium 2.1, Total Bilirubin 0.48, AST 25, ALT 24, Alkaline Phosphatase 119 H, Total Protein 7.7, Albumin 4.7, Globulin 3.0, Albumin/Globulin Ratio 1.6, Lipase > 3000 H, TSH 2.940, Serum , Qual NEGATIVE, Ethyl Alcohol < 10.1 03/27/25 18:30: Urine Color Straw, Urine Clarity Clear, Urine pH 6.0, Ur Specific [place] 1.015, Urine Protein 15 H, Urine Glucose (UA) Normal, Urine Ketones Negative, Urine Occult Blood 25 H, Urine Nitrite Negative, Urine Bilirubin Negative, Urine Urobilinogen Normal, Ur Leukocyte Esterase Negative, Urine RBC 0-5 SEEN, Urine WBC 0-5 SEEN, Ur Squamous Epith Cells 0-5 SEEN, Urine Bacteria 0 SEEN, Urine Mucus 1+ 03/28/25 05:26: WBC 6.8, RBC 3.96 L, Hgb 10.8 L, Hct 33.2 L, MCV 83.8, MCH 27.3,MCHC 32.5, RDW Std Deviation 41.9, RDW Coeff of Chelsie 13.6, Plt Count 241, MPV 10.2, Immature Gran % (Auto) 0.300, Neut %(Auto) 69.0, Lymph % (Auto) 23.2, Tarrant % (Auto) 4.4, Eos % (Auto) 2.8, Baso % (Auto) 0.3, Absolute Neuts (auto) 4.7, Absolute Lymphs (auto) 1.58, Nucleated RBC % 0, Sodium 139, Potassium 4.1, Chloride 105, Carbon Dioxide 26.6, Anion Gap 7, BUN 13, Creatinine 0.58 L, EstimCreat Clear Calc 145.11, Est GFR (MDRD) Non-Af 114, BUN/Creatinine Ratio 22.3 H,Glucose 118 H, Calcium 9.6, Phosphorus 3.0, Total Bilirubin 0.31, AST 19, ALT 18, Alkaline Phosphatase 82, Total Protein 6.3, Albumin 3.6, Globulin2.7, Albumin/Globulin Ratio 1.4, Triglycerides 77, Cholesterol 136, LDL Cholesterol, Calc 73, VLDL Cholesterol 15, HDL Cholesterol 48, Cholesterol/HDL Ratio 2.85, Lipase 1356 H Radiography Diagnostic Testing: Radiology Impression Abdomen/Pelvis CT 03/27/25 19:03 IMPRESSION: Findings compatible with acute pancreatitis. Potential areas of necrotizing pancreatitis within thehead. Similar findings are noted on the previous study. Reading Location: [facility] Physical Exam Narrative Seen and examined. Admitted with 2 days of severe epigastric/abdominal pain 03/29. She had outsidefatty food on Tuesday passed gas last time on Tuesday. She had a small bowel movement yesterday. She did not measure hertemperature but was sweating and cold and used for blankets She had biliary stent in November and was removed subsequently. Physical exam General: Alert, Oriented x3, Cooperative. BMI 39.0 kg/m?, obesity grade 2 HEENT: Atraumatic, PERRLA, EOMI, Normocephalic. Oral: No Gingival or Mucosal Lesions/ Ulcerations Neck: Supple, No JVD, Negative Carotid Bruits Chest wall/Lungs: Air entry diminished in bilateral lung bases. No crepitation/rhonchi Cardiovascular: Regular rate and rhythm, Normal S1,S2, No M/G/R Abdomen: Bowel Sounds sluggish. Soft, mild tenderness present in epigastric/upper abdomen. No rebound tenderness. : No dysuria. No renal angle tenderness. No suprapubic tenderness. Extremities: No edema, Capillary Refill Less than 3 Seconds Skin: No rashes, No breakdown Musculoskeletal: No Tenderness to Palpation of Joints or Extremities Neurological: Cranial nerves II-XII grossly intact, DTR 2+/4. No acute focal neurological deficit. Psych/Mental Status: Normal Affect, Appropriate. Assessment & Plan Assessment/Plan (1) Acute recurrent pancreatitis: (2) Intractable abdominal pain: (3) Leukocytosis: QUALIFIERS: Leukocytosis type: unspecified Qualified Code(s): D72.829 - Elevated white blood cell count, unspecified (4) Nausea: (5) Obesity (BMI 30-39.9): PLAN: Plan 44-year-old female admitted with severe epigastric pain with high lipase and CT finding suggestive of acute pancreatitis with potential area of necrotizing pancreatitis within head of pancreas: 1. Acute on recurrent pancreatitis with CT reporting a potential necrotizing pancreatitis: Patient is being admitted to [facility] floor. Patient had subjective chills and drenching sweats at home but no measured fever. Lipase 1356, more than 10 times ULN. Carlos's criteria at admission 0 but LDH not available. LDH ordered. N.p.o. IV fluid with aggressive rehydration. On empiric IV meropenem with CTreporting of potential necrotizing pancreatitis. Pantoprazole for tomorrow IV daily. Supportive treatment will for nausea or vomiting and pain control. CT abdomen/pelvis with IV contrast individually reviewed. I agree moderate fat stranding with hazy/indistinct mesentery suggesting acute pancreatitis. No focal fluid collection or abscess or pseudocyst. Reporting raise suspicion of necrotizing pancreatitis. MRCP is ordered. No fever.. Patient on IVmeropenem. Mild leukocytosis resolved. 2. 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 Sotelo (November 29, 2024) with subsequent removal of biliary stent with surgical cholecystectomy. Lipid profile within normal limit. TG 77 3. Obesity (class III); with BMI of 39.3 this admission adding to the burden ofdisease outlined in #1 & #2 - Weight loss will be recommended with patient explaining she was previously on topiramate to help lose weight but she stopped taking it because of side effects causing mental impairment. Check TSH. This complicates her case and may hamper recovery. 4. Essential hypertension; on amlodipine - Hold oral agents until further notice. Give hydralazine IV prn for systolic blood pressure > 160 mmHg. 5. Former tobacco abuse - Noted. 6. DVT/GI prophylaxis - Enoxaparin 40 mg sq daily plus SCD's. Pantoprazole 40 mg IV daily as outlined in #1. Laboratory Results 03/27/25 18:25: WBC 11.5 H, RBC 4.84, Hgb 12.7, Hct 39.6, MCV 81.8, MCH 26.2 L, MCHC 32.1, RDW Std Deviation 39.2, RDW Coeff of Chelsie 13.3, Plt Count 338, MPV 10.2, Immature Gran % (Auto) 0.300, Neut %(Auto) 70.1 H, Lymph % (Auto) 21.2, Tarrant % (Auto) 5.9, Eos % (Auto) 2.2, Baso % (Auto) 0.3, Absolute Neuts (auto) 8.0 H, Absolute Lymphs (auto) 2.43, Nucleated RBC % 0, Sodium 138, Potassium 3.6, Chloride 99, Carbon Dioxide 26.7, Anion Gap 12, BUN 11, Creatinine 0.50 L, Estim Creat Clear Calc 168.45, Est GFR (MDRD) Non-Af 118, BUN/Creatinine Ratio 22.0 H, Glucose 100 H, Hemoglobin A1c 5.7, Calcium 10.7, Magnesium 2.1, Total Bilirubin 0.48, AST 25, ALT 24, Alkaline Phosphatase 119 H, Total Protein 7.7, Albumin 4.7, Globulin 3.0, Albumin/Globulin Ratio 1.6, Lipase > 3000 H, TSH 2.940, Serum , Qual NEGATIVE, Ethyl Alcohol < 10.1 03/27/25 18:30: Urine Color Straw, Urine Clarity Clear, Urine pH 6.0, Ur Specific [place] 1.015, Urine Protein 15 H, Urine Glucose (UA) Normal, Urine Ketones Negative, Urine Occult Blood 25 H, Urine Nitrite Negative, Urine Bilirubin Negative, Urine Urobilinogen Normal, Ur Leukocyte Esterase Negative, Urine RBC 0-5 SEEN, Urine WBC 0-5 SEEN, Ur Squamous Epith Cells 0-5 SEEN, Urine Bacteria 0 SEEN, Urine Mucus 1+ 03/28/25 05:26: WBC 6.8, RBC 3.96 L, Hgb 10.8 L, Hct 33.2 L, MCV 83.8, MCH 27.3,MCHC 32.5, RDW Std Deviation 41.9, RDW Coeff of Chelsie 13.6, Plt Count 241, MPV 10.2, Immature Gran % (Auto) 0.300, Neut %(Auto) 69.0, Lymph % (Auto) 23.2, [place] % (Auto) 4.4, Eos % (Auto) 2.8, Baso % (Auto) 0.3, Absolute Neuts (auto) 4.7, Absolute Lymphs (auto) 1.58, Nucleated RBC % 0, Sodium 139, Potassium 4.1, Chloride 105, Carbon Dioxide 26.6, Anion Gap 7, BUN 13, Creatinine 0.58 L, EstimCreat Clear Calc 145.11, Est GFR (MDRD) Non-Af 114, BUN/Creatinine Ratio 22.3 H,Glucose 118 H, Calcium 9.6, Phosphorus 3.0, Total Bilirubin 0.31, AST 19, ALT 18, Alkaline Phosphatase 82, Total Protein 6.3, Albumin 3.6, Globulin2.7, Albumin/Globulin Ratio 1.4, Triglycerides 77, Cholesterol 136, LDL Cholesterol, Calc 73, VLDL Cholesterol 15, HDL Cholesterol 48, Cholesterol/HDL Ratio 2.85, Lipase 1356 H Charges/Coding Visit Charges Inpatient E&M: 09714 Subs Hosp L2 03/28/25 1515 Cosigner Signature (if applicable): CC: ~ Signed [facility]10-09-2025 History and physical note Author Zak Harden [facility] Note Date/Time March 28, 2025 7: 02am [facility] Medical Records Department [address] [place] [address] H&P Exam - Hospitalist 03/27/252046 MR#: [id number] Acct: [id number] Name: CASIMIRO LIU Rep #:[id number] : 1980 44 From: Zak Tamez DO PCP: Dr. Mary Escobar MD Status:ADM IN Location: [facility] [id number] HPI - General General Date of Admission: 03/27/25 Date of Service: 03/27/25 Chief Complaint: Epigastric Pain and Nausea. HPI Narrative CASIMIRO LIU, is a 44 F with a past medical history of essential hypertension; on amlodipine, obesity (class III); with BMI of 39.3 this admission, former tobacco abuse, remote history of cholecystectomy (~2005), history of recurrent pancreatitis (first episode September 2024) with subsequent ERCP and most recent episode attributed to choledocholithiasis with biliary stricture in the lower 3rd of the main bile duct; s/p biliary stent placement and sphincterotomy with balloon extraction of stone by Dr. Sotelo (November 29, 2024) with subsequent removal of biliary stent who presents to [facility] ER complaining of epigastric pain and nausea. Ms. Liu reports her symptoms began approximately 2 days prior to admission with the gradual-onset of progressively worsening epigastric pain radiating intoher back and across to her Left side with nausea and subjective fevers. She informed the ER physician she was warned she might have continued recurrent pancreatitis with her symptoms ominously similar to her previous bout of pancreatitis with nothing making the pain better or worse. She denies recent abdominal trauma, EtOH ingestion or significant deviations from her normal diet. She denies associated chills, vomiting, diarrhea, constipation, runny nose, sore throat, ear pain, chest pain, palpitations, heart racing, lower extremity edema, dysuria, hematuria, headache or rash. In the ER she was noted to have a highly elevated Lipase of >3K U/L with Leukocytosis of 11.5K present on admission and a corresponding CT scan of the abdomen and pelvis with IV contrastthat revealed findings compatible with Acute Pancreatitis with potential areas of necrotizing pancreatitis within the head with similar findings to previous study with ER physician contacting the retail link analyst on-call who recommended empiric IV meropenem and [facility] for a stay that is expected to extend beyond 2 midnights. [facility] Medical History (Updated 03/27/25 @ 22:07 by Anjelica Pace) Depression Former smoker Migraines Gastric reflux History of biliary stent insertion Intractable abdominal pain Acute recurrent pancreatitis Hypertension Pancreatitis Hypertension Anxiety Home Medications ?Medication ?Instructions ?Recorded ?Last Taken ?Type ipratropium bromide 42 mcg (0.06 1 spray intranasal TI D PRN PRN 09/12/24 Unknown History %) nasal spray allergy symptoms sennosides 8.6 mg-docusate sodium 2 tab PO BID PRN Con stipation #0 10/22/24 Unknown Rx 50 mg tablet (Stimulant Laxative tabs Plus) amlodipine 5 mg tablet 5 mg PO DAILY 03/27/25 Unkno wn History fluoxetine 60 mg tablet 60 mg PO DAILY anxiety/depre ssion 03/27/25 Unknown History topiramate 25 mg tablet 25 mg PO BID 03/27/25 Unknow n History Allergy/AdvReac Type Severity Reaction Status Date / Time No Known Allergies Allergy Verified 03/27/25 17:40 Family History Other Hypertension Surgical History S/P ERCP Hx of cholecystectomy Social History Smoking Status: Former smoker alcohol intake: current alcohol intake frequency: 0-2 drinks per day substance use type: does not use ROS ROS Narrative Review of Systems: Constitutional: Patient admits to subjective fevers but denies chills. Eyes: Patient denies changes in vision or discharge form eyes. ENT: Patient denies runny nose, sore throat or ear pain. Resp: Patient denies SOB or cough. CV: Patient denies chest pain, palpitations, heart racing or LE edema. GI: Patient admits to epigastric pain radiating into her back and Left side withnausea as per HPI. She denies vomiting. : Patient denies dysuria or hematuria. MSK: Patient denies arthralgias or myalgias. Skin: Patient denies rash, abscess, wounds or jaundice. Psych: Patient denies symptoms of uncontrolled depression or anxiety. Neuro: Patient denies headache, paresthesias or focal neurologic deficits. Allergy: Patient denies lip swelling, tongue swelling or urticaria. Hematology: Patient denies easy bleeding or easy bruisability. Endocrinology: Patient denies polyuria, polydipsia, polyphagia or heat/cold intolerance. 14 point ROS otherwise negative except for positives noted above in HPI. Vital Signs Vital Signs Vital Signs: 03/27/25 17:40 03/27/25 19:40 Temperature 98.6 F Temperature Source Oral Pulse Rate 87 73 Respiratory Rate 16 18 Blood Pressure 191/113 H 165/94 H Blood Pressure Mean 139 117 Pulse Ox 100 95 Oxygen Delivery Method Room Air Room Air Weight Weight: 228 lb 11.2 oz Body Mass Index (BMI) 39.2 Physical Exam Const alert and oriented x3 Constitutional Narrative: Obese patient in moderate discomfort noted. General Appearance: cooperative HEENT normocephalic, head/scalp atraumatic, hearing grossly normal bilaterally and moist oral mucous membranes Eyes PERRL, EOMs intact bilaterally and conjunctivae normal Neck no lymphadenopathy, supple and no JVD Resp normal respiratory effort, no retractions, no use of accessory muscles and clearto auscultation bilaterally Cardio regular rate and regular rhythm GI GI Narrative: Patient has TTP in the epigastrium with no distention, guarding or rebound. Auscultation: hypoactive bowel sounds Palpation: tender epigastric Extremity normal to inspection, full ROM and no clubbing, cyanosis or edema Skin Skin Narrative: Patient has no evidence of rash, abscess, wounds or jaundice. Neuro oriented x3, CN's II-XII intact bilaterally, moves all extremities and no focal motor deficits Sensorium / Orientation: awake, alert, oriented to person, oriented to place andoriented to time Speech: speech normal Psych Mood & Affect: anxious Results Medical Records Data Attestation: I reviewed the patient's medical records Lab / Micro Data Attestation: I reviewed the patient's lab results. 03/27/25 18:25 03/27/25 18:25 Labs: Laboratory Results - last 24 hr 03/27/25 18:25: WBC 11.5 H, RBC 4.84, Hgb 12.7, Hct 39.6, MCV 81.8, MCH 26.2 L, MCHC 32.1, RDW Std Deviation 39.2, RDW Coeff of Chelsie 13.3, Plt Count 338, MPV 10.2, Immature Gran % (Auto) 0.300, Neut % (Auto) 70.1 H, Lymph % (Auto) 21.2, Tarrant % (Auto) 5.9, Eos % (Auto) 2.2, Baso % (Auto) 0.3, Absolute Neuts (auto) 8.0 H, Absolute Lymphs (auto) 2.43, Nucleated RBC % 0, Sodium 138, Potassium 3.6, Chloride 99, Carbon Dioxide 26.7, Anion Gap 12, BUN 11, Creatinine 0.50 L, Estim Creat Clear Calc 168.45, Est GFR (MDRD) Non-Af 118, BUN/Creatinine Ratio 22.0 H, Glucose 100 H, Calcium 10.7, Total Bilirubin 0.48, AST 25, ALT 24, Alkaline Phosphatase 119 H, Total Protein 7.7, Albumin 4.7, Globulin 3.0, Albumin/Globulin Ratio 1.6, Lipase > 3000 H, Serum , Qual NEGATIVE 03/27/25 18:30: Urine Color Straw, Urine Clarity Clear, Urine pH 6.0, Ur Specific [place] 1.015, Urine Protein 15 H, Urine Glucose (UA) Normal, Urine Ketones Negative, Urine Occult Blood 25 H, Urine Nitrite Negative, Urine Bilirubin Negative, Urine Urobilinogen Normal, Ur Leukocyte Esterase Negative, Urine RBC 0-5 SEEN, Urine WBC 0-5 SEEN, Ur Squamous Epith Cells 0-5 SEEN, Urine Bacteria 0 SEEN, Urine Mucus 1+ Imaging Radiology Impression Abdomen/Pelvis CT 03/27/25 19:03 IMPRESSION: Findings compatible with acute pancreatitis. Potential areas of necrotizing pancreatitis within the head. Similar findings are noted on the previous study. Reading Location: [id number] Assessment & Plan Assessment/Plan (1) Acute recurrent pancreatitis: (2) Intractable abdominal pain: (3) Leukocytosis: QUALIFIERS: Leukocytosis type: unspecified Qualified Code(s): D72.829 - Elevated white blood cell count, unspecified (4) Nausea: (5) Obesity (BMI 30-39.9): PLAN: Plan 1. Acute Recurrent Pancreatitis with elevated Lipase of >3K U/L with a corresponding CT scan of the abdomen and pelvis with IV contrast that revealed findings compatible with Acute Pancreatitis with potential areas of necrotizing pancreatitis within the head with similar findings to previous study - Admit to general medical floor. Keep strict NPO and give vigorous IVF. Continue empiricIV meropenem as recommended by gastroenterology with concern for possible necrotizing pancreatitis. Give pantoprazole 40 mg IV daily. Give ondansetron IV prn for nausea and vomiting. Give promethazine IM prn for breakthrough nausea. Give ketorolac IV prn for [id number] (level 1-5/10) pain or fever. Give hydromorphone IV prn for severe (level 6-10/10) pain. Check MRCP. Finally, we will consult retail link analyst on-call to see this patient on-rounds in the AM for further recommendations regarding possible ERCP this admission with help appreciated in advance. 2. History of recurrent pancreatitis (first episode September 2024) with subsequentERCP and most recent episode attributed to choledocholithiasis with biliary stricture in the lower 3rd of the main bile duct; s/p biliary stent placement and sphincterotomy with balloon extraction of stone by Dr. Sotelo (November 29, 2024) with subsequent removal of biliary stent in the setting of previous cholecystectomy complicating #1 - Noted. Check Lipid Panel to screen for possible underlying hypertriglyceridemia. 3. Obesity (class III); with BMI of 39.3 this admission adding to the burden ofdisease outlined in #1 & #2 - Weight loss will be recommended with patient explaining she was previously on topiramate to help lose weight but she stopped taking it because of side effects causing mental impairment. Check TSH. This complicates her case and may hamper recovery. 4. Essential hypertension; on amlodipine - Hold oral agents until further notice. Give hydralazine IV prn for systolic blood pressure > 160 mmHg. 5. Former tobacco abuse - Noted. 6. DVT/GI prophylaxis - Enoxaparin 40 mg sq daily plus SCD's. Pantoprazole 40 mg IV daily as outlined in #1. Total time: Approximately (but not less than) 55 minutes. Charges/Coding Visit Charges Inpatient E&M: 00557 Init Hosp L2 03/28/25 0702 <Electronically signed by Zak Carcamo DO> Cosigner Signature (if applicable): CC: Dr. Mary Escobar MD; Dr. Zak Carcamo DO~ Signed [facility] Work Phone: [phone]) 886-781510-09-2025 History and physical note [facility] Medical Records Department [address] [place] [address] H&P Exam - Hospitalist 03/27/252046 MR#: [id number] Acct: [id number] Name: CASIMIRO LIU Rep #:[id number] : 1980 44 From: Zak Tamez DO PCP: Dr. Mary Escobar MD Status:ADM IN Location: [facility] [id number] HPI - General General Date of Admission: 03/27/25 Date of Service: 03/27/25 Chief Complaint: Epigastric Pain and Nausea. HPI Narrative CASIMIRO LIU, is a 44 F with a past medical history of essential hypertension; on amlodipine, obesity (class III); with BMI of 39.3 this admission, former tobacco abuse, remote history of cholecystectomy (~2005), history of recurrent pancreatitis (first episode September 2024) with subsequent ERCP and most recent episode attributed to choledocholithiasis with biliary stricture in the lower 3rd ofthe main bile duct; s/p biliary stent placement and sphincterotomy with balloon extraction of stoneby Dr. Sotelo (November 29, 2024) with subsequent removal of biliary stent who presents to [facility] ER complaining of epigastric pain and nausea. Ms. Liu reports her symptoms began approximately 2 days prior to admission with the gradual-onset of progressively worsening epigastric pain radiating intoher back and across to her Left side with nausea and subjective fevers. She informed the ER physician she was warned she might have continued recurrent pancreatitis with her symptoms ominously similar to her previous bout of pancreatitis with nothing making the pain better or worse. She denies recent abdominal trauma, EtOH ingestion or significant deviations from her normal diet. She denies associated chills, vomiting, diarrhea, constipation, runny nose, sore throat, ear pain, chest pain, palpitations, heart racing, lower extremity edema, dysuria, hematuria, headache or rash. In the ER she was noted to have a highly elevated Lipaseof >3K U/L with Leukocytosis of 11.5K present on admission and a corresponding CT scan of the abdomen and pelvis with IV contrastthat revealed findings compatible with Acute Pancreatitis with potential areas of necrotizing pancreatitis within the head with similar findings to previous study withER physician contacting the retail link analyst on-call who recommended empiric IV meropenem and [facility] for a stay that is expected to extend beyond 2 midnights. [facility] Medical History (Updated 03/27/25 @ 22:07 by Anjelica Pace) Depression Former smoker Migraines Gastric reflux History of biliary stent insertion Intractable abdominal pain Acute recurrent pancreatitis Hypertension Pancreatitis Hypertension Anxiety Home Medications ?Medication ?Instructions ?Recorded ?Last Taken ?Type ipratropium bromide 42 mcg (0.06 1 spray intranasal TI D PRN PRN 09/12/24 Unknown History %) nasal spray allergy symptoms sennosides 8.6 mg-docusate sodium 2 tab PO BID PRN Con stipation #0 10/22/24 Unknown Rx 50 mg tablet (Stimulant Laxative tabs Plus) amlodipine 5 mg tablet 5 mg PO DAILY 03/27/25 Unkno wn History fluoxetine 60 mg tablet 60 mg PO DAILY anxiety/depre ssion 03/27/25 Unknown History topiramate 25 mg tablet 25 mg PO BID 03/27/25 Unknow n History Allergy/AdvReac Type Severity Reaction Status Date / Time No Known Allergies Allergy Verified 03/27/25 17:40 Family History Other Hypertension Surgical History S/P ERCP Hx of cholecystectomy Social History Smoking Status: Former smoker alcohol intake: current alcohol intake frequency: 0-2 drinks per day substance use type: does not use ROS ROS Narrative Review of Systems: Constitutional: Patient admits to subjective fevers but denies chills. Eyes: Patient denies changes in vision or discharge form eyes. ENT: Patient denies runny nose, sore throat or ear pain. Resp: Patient denies SOB or cough. CV: Patient denies chest pain, palpitations, heart racing or LE edema. GI: Patient admits to epigastric pain radiating into her back and Left side withnausea as per HPI. She denies vomiting. : Patient denies dysuria or hematuria. MSK: Patient denies arthralgias or myalgias. Skin: Patient denies rash, abscess, wounds or jaundice. Psych: Patient denies symptoms of uncontrolled depression or anxiety. Neuro: Patient denies headache, paresthesias or focal neurologic deficits. Allergy: Patient denies lip swelling, tongue swelling or urticaria. Hematology: Patient denies easy bleeding or easy bruisability. Endocrinology: Patient denies polyuria, polydipsia, polyphagia or heat/cold intolerance. 14 point ROS otherwise negative except for positives noted above in HPI. Vital Signs Vital Signs Vital Signs: 03/27/25 17:40 03/27/25 19:40 Temperature 98.6 F Temperature Source Oral Pulse Rate 87 73 Respiratory Rate 16 18 Blood Pressure 191/113 H 165/94 H Blood Pressure Mean 139 117 Pulse Ox 100 95 Oxygen Delivery Method Room Air Room Air Weight Weight: 228 lb 11.2 oz Body Mass Index (BMI) 39.2 Physical Exam Const alert and oriented x3 Constitutional Narrative: Obese patient in moderate discomfort noted. General Appearance: cooperative HEENT normocephalic, head/scalp atraumatic, hearing grossly normal bilaterally and moist oral mucous membranes Eyes PERRL, EOMs intact bilaterally and conjunctivae normal Neck no lymphadenopathy, supple and no JVD Resp normal respiratory effort, no retractions, no use of accessory muscles and clearto auscultation bilaterally Cardio regular rate and regular rhythm GI GI Narrative: Patient has TTP in the epigastrium with no distention, guarding or rebound. Auscultation: hypoactive bowel sounds Palpation: tender epigastric Extremity normal to inspection, full ROM and no clubbing, cyanosis or edema Skin Skin Narrative: Patient has no evidence of rash, abscess, wounds or jaundice. Neuro oriented x3, CN's II-XII intact bilaterally, moves all extremities and no focal motor deficits Sensorium / Orientation: awake, alert, oriented to person, oriented to place andoriented to time Speech: speech normal Psych Mood & Affect: anxious Results Medical Records Data Attestation: I reviewed the patient's medical records Lab / Micro Data Attestation: I reviewed the patient's lab results. 03/27/25 18:25 03/27/25 18:25 Labs: Laboratory Results - last 24 hr 03/27/25 18:25: WBC 11.5 H, RBC 4.84, Hgb 12.7, Hct 39.6, MCV 81.8, MCH 26.2 L, MCHC 32.1, RDW Std Deviation 39.2, RDW Coeff of Chelsie 13.3, Plt Count 338, MPV 10.2, Immature Gran % (Auto) 0.300, Neut %(Auto) 70.1 H, Lymph % (Auto) 21.2, Tarrant % (Auto) 5.9, Eos % (Auto) 2.2, Baso % (Auto) 0.3, Absolute Neuts (auto) 8.0 H, Absolute Lymphs (auto) 2.43, Nucleated RBC % 0, Sodium 138, Potassium 3.6, Chloride 99, Carbon Dioxide 26.7, Anion Gap 12, BUN 11, Creatinine 0.50 L, Estim Creat Clear Calc 168.45, Est GFR (MDRD) Non-Af 118, BUN/Creatinine Ratio 22.0 H, Glucose 100 H, Calcium 10.7, Total Bilirubin 0.48, AST 25, ALT 24, Alkaline Phosphatase 119 H, Total Protein 7.7, Albumin 4.7, Globulin 3.0, A lbumin/Globulin Ratio 1.6, Lipase > 3000 H, Serum , Qual NEGATIVE 03/27/25 18:30: Urine Color Straw, Urine Clarity Clear, Urine pH 6.0, Ur Specific [place] 1.015, Urine Protein 15 H, Urine Glucose (UA) Normal, Urine Ketones Negative, Urine Occult Blood 25 H, Urine Nitrite Negative, Urine Bilirubin Negative, Urine Urobilinogen Normal, Ur Leukocyte Esterase Negative, Urine RBC 0-5 SEEN, Urine WBC 0-5 SEEN, Ur Squamous Epith Cells 0-5 SEEN, Urine Bacteria 0 SEEN, Urine Mucus 1+ Imaging Radiology Impression Abdomen/Pelvis CT 03/27/25 19:03 IMPRESSION: Findings compatible with acute pancreatitis. Potential areas of necrotizing pancreatitis within thehead. Similar findings are noted on the previous study. Reading Location: [id number] Assessment & Plan Assessment/Plan (1) Acute recurrent pancreatitis: (2) Intractable abdominal pain: (3) Leukocytosis: QUALIFIERS: Leukocytosis type: unspecified Qualified Code(s): D72.829 - Elevated white blood cell count, unspecified (4) Nausea: (5) Obesity (BMI 30-39.9): PLAN: Plan 1. Acute Recurrent Pancreatitis with elevated Lipase of >3K U/L with a corresponding CT scan of the abdomen and pelvis with IV contrast that revealed findings compatible with Acute Pancreatitis with potential areas of necrotizing pancreatitis within the head with similar findings to previous study - Admit to general medical floor. Keep strict NPO and give vigorous IVF. Continue empiricIV meropenem as recommended by gastroenterology with concern for possible necrotizing pancreatitis. Give pantoprazole 40 mg IV daily. Give ondansetron IV prn for nausea and vomiting. Give promethazine IM prn for breakthrough nausea. Give ketorolac IV prn for uken-tc-mdiswxgn (level 1-5/10) pain or fever. Give hydromorphone IV prn for severe (level 6-10/10) pain. Check MRCP. Finally, we will consult retail link analyst on-call to see this patient on-rounds in the AM for further recommendations regarding possible ERCP this admission with help appreciated in advance. 2. History of recurrent pancreatitis (first episode September 2024) with subsequentERCP and most recentepisode attributed to choledocholithiasis with biliary stricture in the lower 3rd of the main bile duct; s/p biliary stent placement and sphincterotomy with balloon extraction of stone by Dr. Sotelo ( November 29, 2024) with subsequent removal of biliary stent in the setting of previous cholecystectomy complicating #1 - Noted. Check Lipid Panel to screen for possible underlying hypertriglyceridemia. 3. Obesity (class III); with BMI of 39.3 this admission adding to the burden ofdisease outlined in #1 & #2 - Weight loss will be recommended with patient explaining she was previously on topiramate to help lose weight but she stopped taking it because of side effects causing mental impairment. Check TSH. This complicates her case and may hamper recovery. 4. Essential hypertension; on amlodipine - Hold oral agents until further notice. Give hydralazine IV prn for systolic blood pressure > 160 mmHg. 5. Former tobacco abuse - Noted. 6. DVT/GI prophylaxis - Enoxaparin 40 mg sq daily plus SCD's. Pantoprazole 40 mg IV daily as outlined in #1. Total time: Approximately (but not less than) 55 minutes. Charges/Coding Visit Charges Inpatient E&M: 73813 Init Hosp L2 03/28/25 0702 Cosigner Signature (if applicable): CC: Dr. Mary Escobar MD; Dr. Zak Carcamo, DO~ Signed [facility]10-08-2025 Evaluation note* Diagnosis Onset Date Resolution Status Admit Date Choledocholithiasis acute Octob er 2024 9:16pm Nausea acute March 27, 025 9:16pm Obesity (BMI 30-39.9) acute Oct alma 2024 9:16pm Pancreatitis acute March 27, 2025 9:16pm Hypertension chronic March 27, 2025 9:16pm Intractable abdominal pain resolved March 27, 2025 9:16pm Leukocytosis resolved March 27, 2025 9:16pm Acute recurrent pancreatitis inactiv e March 27, 2025 9:16pm [facility] Work Phone: 1(815) 856-275510-08-2025 Discharge summary Author Vinicio Gaspar [facility] Note Date/Time March 27, 2025 8: 52pm [facility] Medical Records Department [address] [place] [address] Emergency Department Summary 03/27/25 MR#: [id number] Acct: [id number] Name: CASIMIRO LIU Rep #:[id number] : 1980 44 From: Vinicio Gaspar MD PCP: Dr. Mary Escobar MD Status:REG ER Location: ED HPI HPI - GI History of Present Illness Chief Complaint: Abd Pain Narrative Narrative: 44-year-old female past medical history of hypertension and recurrent pancreatitis presents with epigastric pain and nausea that she has had for the last 2 days. Feels similar to her previous recurrent pancreatitis. She relateshistory that she had a cholecystectomy remotely, years ago. In September of this year, she had an episode of epigastric pain and was diagnosed with pancreatitis. She had been seen by Dr. Sotelo with gastroenterology and she states that they could not figure out why she was having abdominal pain until he did an ERCP and found the stone that had developed in the bile duct. She did require stenting as well, but states that was removed. She also states that she was told that she might get pancreatitis for the rest of her life. She states she felt feverish over the last few days. She is unsure if it was triggered by anything she ate. She is nauseated but has not vomited. She complains of epigastric pain that is unrelenting. It radiates to her back and more to the left side. [facility] Medical History Gastric reflux History of biliary stent insertion Intractable abdominal pain Acute recurrent pancreatitis Hypertension Pancreatitis Hypertension Anxiety Home Medications ?Medication ?Instructions ?Recorded ?Last Taken ?Type ipratropium bromide 42 mcg (0.06 1 spray intranasal TI D PRN PRN 09/12/24 Unknown History %) nasal spray allergy symptoms sennosides 8.6 mg-docusate sodium 2 tab PO BID PRN Con stipation #0 10/22/24 Unknown Rx 50 mg tablet (Stimulant Laxative tabs Plus) amlodipine 5 mg tablet 5 mg PO DAILY 03/27/25 Unkno wn History topiramate 25 mg tablet 25 mg PO BID 03/27/25 Unknow n History Allergy/AdvReac Type Severity Reaction Status Date / Time No Known Allergies Allergy Verified 03/27/25 17:40 Family History Other Hypertension Surgical History S/P ERCP Hx of cholecystectomy Social History Smoking Status: Former smoker alcohol intake: current alcohol intake frequency: 0-2 drinks per day substance use type: does not use ROS ROS ED ROS Narrative Review of systems is positive for epigastric pain, subjective fever, nausea but no vomiting. No diarrhea. Pain in epigastrium radiates to left into back. No exacerbating or alleviating factors. EXAM Physical Exam Narrative Exam Narrative: Afebrile. Vital signs noted. Nontoxic-appearing. Cardiovascular examination reveals regular rate and rhythm. Lungs are clear to auscultation bilaterally. Abdomen is soft with mild tenderness to palpation in the epigastrium to the leftupper quadrant. No guarding or rebound. Positive bowel sounds. Neurological examination nonfocal, nonlateralizing. Const Vital Signs: 03/27/25 17:40 03/27/25 19:40 Temperature 98.6 F Temperature Source Oral Pulse Rate 87 73 Respiratory Rate 16 18 Blood Pressure 191/113 H 165/94 H Blood Pressure Mean 139 117 Pulse Ox 100 95 Oxygen Delivery Method Room Air Room Air MDM MDM MDM Narrative Medical decision making narrative: Differential diagnosis includes but not limited to acute on chronic pancreatitisversus transverse colon diverticulitis versus gastritis versus obstruction. I have low clinical suspicion for obstruction because the history and physical does not support this. Protocol labs were entered. I added CT imaging. I reviewed her prior ED visit from September where she had inflammation of the pancreas and biliary stent was in place. She had been admitted at that time. For analgesia, she states that she cannot have morphine. She was administered Dilaudid 1 mg intravenously as well as ondansetron 4 mg intravenously. I reviewed her laboratory work and she has slightly elevated white count of 11.5with hemoglobin 12.7, hematocrit 39.6, platelet count 338. CMP is significant for normal BUN of 11 and creatinine low at 0.50, glucose of 100 with a normal anion gap of 12. Alk phos slightly elevated at 119, lipase is greater than 3000. Serum test is negative. Urinalysis negative for infection. I reviewed the radiology report of the CT of the abdomen and pelvis. There is no pseudocyst but findings consistent with acute pancreatitis. While the radiologist mentioned portions that may be concerning for necrotizing pancreatitis, same was seen on similar study. I discussed patient with Dr. Sotelo who reviewed the radiology report and images. He did not feel that this was necrotizing, and that the patient could stay here and did not need transfer. However, he would like her bolused with normal saline 1 L then LR run at 350 mL/h. He also wanted meropenem 1 g to be given here in the emergency departmentthen 1 g every 8 hours. I discussed the patient with Dr. Chamorro for admission to the general medical floor. Patient is in stable condition. History & Record Review Discussion w/independent historian: Patient Additional record(s) reviewed:: Prior ED visit (Previous pancreatitis in September) Lab Data Attestation: I reviewed the patient's lab results. Labs: Laboratory Results - last 24 hr 03/27/25 03/27/25 18:25 18:30 WBC 11.5 H RBC 4.84 Hgb 12.7 Hct 39.6 MCV 81.8 MCH 26.2 L MCHC 32.1 RDW Std Deviation 39.2 RDW Coeff of Chelsie 13.3 Plt Count 338 MPV 10.2 Immature Gran % (Auto) 0.300 Neut % (Auto) 70.1 H Lymph % (Auto) 21.2 Tarrant % (Auto) 5.9 Eos % (Auto) 2.2 Baso % (Auto) 0.3 Absolute Neuts (auto) 8.0 H Absolute Lymphs (auto) 2.43 Nucleated RBC % 0 Sodium 138 Potassium 3.6 Chloride 99 Carbon Dioxide 26.7 Anion Gap 12 BUN 11 Creatinine 0.50 L Estim Creat Clear Calc 168.45 Est GFR (MDRD) Non-Af 118 BUN/Creatinine Ratio 22.0 H Glucose 100 H Calcium 10.7 Total Bilirubin 0.48 AST 25 ALT 24 Alkaline Phosphatase 119 H Total Protein 7.7 Albumin 4.7 Globulin 3.0 Albumin/Globulin Ratio 1.6 Lipase > 3000 H Serum , Qual NEGATIVE Urine Color Straw Urine Clarity Clear Urine pH 6.0 Ur Specific [place] 1.015 Urine Protein 15 H Urine Glucose (UA) Normal Urine Ketones Negative Urine Occult Blood 25 H Urine Nitrite Negative Urine Bilirubin Negative Urine Urobilinogen Normal Ur Leukocyte Esterase Negative Urine RBC 0-5 SEEN Urine WBC 0-5 SEEN Ur Squamous Epith Cells 0-5 SEEN Urine Bacteria 0 SEEN Urine Mucus 1+ Radiography Diagnostic Testing: Clinical Impression(s) from Imaging Studies Abdomen/Pelvis CT 03/27/25 19:03 IMPRESSION: Findings compatible with acute pancreatitis. Potential areas of necrotizing pancreatitis within the head. Similar findings are noted on the previous study. Reading Location: [id number] Management Discussion w/another healthcare provider: Hospitalist (Dr. Zak Chamorro) and Apartment Maintenance Supervisor (Dr. Sotelo, gastroenterology) Discharge Plan Dx/Rx/DC Orders Clinical Impression: Pancreatitis, Nausea, Hypertension Disposition Disposition: Acute Care Hospital [facility] What to do if you have Problems For any increased pain, shortness of breath, bleeding, nausea or vomiting, chestpain, or any unexpected problems, contact your Primary Care Provider. Call [facility] ([phone]) or report to the closest Emergency Room. Call 911 if necessary. 03/27/252051 <Electronically signed by Vinicio Gaspar MD> Cosigner Signature (if applicable): CC: Dr. Mary Escobar MD ~ Signed [facility] Work Phone: 1(795) 543-498910-08-2025 Discharge summary [facility] Medical Records Department [address] [place] [address] Emergency Department Summary 03/27/25 MR#: [id number] Acct: [id number] Name: CASIMIRO LIU Rep #:[id number] : 1980 44 From: Vinicio Gaspar MD PCP: Dr. Mary Escobar MD Status:REG ER Location: ED HPI HPI - GI History of Present Illness Chief Complaint: Abd Pain Narrative Narrative: 44-year-old female past medical history of hypertension and recurrent pancreatitis presents with epigastric pain and nausea that she has had for the last 2 days. Feels similar to her previous recurrent pancreatitis. She relateshistory that she had a cholecystectomy remotely, years ago. In September his year, she had an episode of epigastric pain and was diagnosed with pancreatitis. She had been seen by Dr. Sotelo with gastroenterology and she states that they could not figure out why she was having abdominal pain until he did an ERCP and found the stone that had developed in the bile duct. She did require stenting as well, but states that was removed. She also states that she was told that she might get pancreatitis for the rest of her life. She states she felt feverish over the last few days. She is unsure if it was triggered by anything she ate. She is nauseated but has not vomited. She complains of epigastric pain that is unrelenting. It radiates to her back and more to the left side. [facility] Medical History Gastric reflux History of biliary stent insertion Intractable abdominal pain Acute recurrent pancreatitis Hypertension Pancreatitis Hypertension Anxiety Home Medications ?Medication ?Instructions ?Recorded ?Last Taken ?Type ipratropium bromide 42 mcg (0.06 1 spray intranasal TI D PRN PRN 09/12/24 Unknown History %) nasal spray allergy symptoms sennosides 8.6 mg-docusate sodium 2 tab PO BID PRN Con stipation #0 10/22/24 Unknown Rx 50 mg tablet (Stimulant Laxative tabs Plus) amlodipine 5 mg tablet 5 mg PO DAILY 03/27/25 Unkno wn History topiramate 25 mg tablet 25 mg PO BID 03/27/25 Unknow n History Allergy/AdvReac Type Severity Reaction Status Date / Time No Known Allergies Allergy Verified 03/27/25 17:40 Family History Other Hypertension Surgical History S/P ERCP Hx of cholecystectomy Social History Smoking Status: Former smoker alcohol intake: current alcohol intake frequency: 0-2 drinks per day substance use type: does not use ROS ROS ED ROS Narrative Review of systems is positive for epigastric pain, subjective fever, nausea but no vomiting. No diarrhea. Pain in epigastrium radiates to left into back. No exacerbating or alleviating factors. EXAM Physical Exam Narrative Exam Narrative: Afebrile. Vital signs noted. Nontoxic-appearing. Cardiovascular examination reveals regular rate and rhythm. Lungs are clear to auscultation bilaterally. Abdomen is soft with mild tenderness to palpation in the epigastrium to the leftupper quadrant. No guarding or rebound. Positive bowel sounds. Neurological examination nonfocal, nonlateralizing. Const Vital Signs: 03/27/25 17:40 03/27/25 19:40 Temperature 98.6 F Temperature Source Oral Pulse Rate 87 73 Respiratory Rate 16 18 Blood Pressure 191/113 H 165/94 H Blood Pressure Mean 139 117 Pulse Ox 100 95 Oxygen Delivery Method Room Air Room Air MDM MDM MDM Narrative Medical decision making narrative: Differential diagnosis includes but not limited to acute on chronic pancreatitisversus transverse colon diverticulitis versus gastritis versus obstruction. I have low clinical suspicion for obstruction because the history and physical does not support this. Protocol labs were entered. I added CT alex ging. I reviewed her prior ED visit from September where she had inflammation of the pancreas and biliary stent was in place. She had been admitted at that time. For analgesia, she states that she cannothave morphine. She was administered Dilaudid 1 mg intravenously as well as ondansetron 4 mg intravenously. I reviewed her laboratory work and she has slightly elevated white count of 11.5with hemoglobin 12.7, hematocrit 39.6, platelet count 338. CMP is significant for normal BUN of 11 and creatinine low at 0.50, glucose of 100 with a normal anion gap of 12. Alk phos slightly elevated at 119, lipase is greater than 3000. Serum test is negative. Urinalysis negative for infection. I reviewed the radiology report of the CT of the abdomen and pelvis. There is no pseudocyst but findings consistent with acute pancreatitis. While the radiologist mentioned portions that may be concerning for necrotizing pancreatitis, same was seen on similar study. I discussed patient with Dr. Dejuan owen who reviewed the radiology report and images. He did not feel that this was necrotizing, and that the patient could stay here and did not need transfer. However, he would like her bolused with normal saline 1 L then LR run at 350 mL/h. He also wanted meropenem 1 g to be given here in the emergency departmentthen 1 g every 8 hours. I discussed the patient [facility] Patient is in [facility] condition. History & Record Review Discussion w/independent historian: Patient Additional record(s) reviewed:: Prior ED visit (Previous pancreatitis in September) Lab Data Attestation: I reviewed the patient's lab results. Labs: Laboratory Results - last 24 hr 03/27/25 03/27/25 18:25 18:30 WBC 11.5 H RBC 4.84 Hgb 12.7 Hct 39.6 MCV 81.8 MCH 26.2 L MCHC 32.1 RDW Std Deviation 39.2 RDW Coeff of Chelsie 13.3 Plt Count 338 MPV 10.2 Immature Gran % (Auto) 0.300 Neut % (Auto) 70.1 H Lymph % (Auto) 21.2 [place] % (Auto) 5.9 Eos % (Auto) 2.2 Baso % (Auto) 0.3 Absolute Neuts (auto) 8.0 H Absolute Lymphs (auto) 2.43 Nucleated RBC % 0 Sodium 138 Potassium 3.6 Chloride 99 Carbon Dioxide 26.7 Anion Gap 12 BUN 11 Creatinine 0.50 L Estim Creat Clear Calc 168.45 Est GFR (MDRD) Non-Af 118 BUN/Creatinine Ratio 22.0 H Glucose 100 H Calcium 10.7 Total Bilirubin 0.48 AST 25 ALT 24 Alkaline Phosphatase 119 H Total Protein 7.7 Albumin 4.7 Globulin 3.0 Albumin/Globulin Ratio 1.6 Lipase > 3000 H Serum , Qual NEGATIVE Urine Color Straw Urine Clarity Clear Urine pH 6.0 Ur Specific [place] 1.015 Urine Protein 15 H Urine Glucose (UA) Normal Urine Ketones Negative Urine Occult Blood 25 H Urine Nitrite Negative Urine Bilirubin Negative Urine Urobilinogen Normal Ur Leukocyte Esterase Negative Urine RBC 0-5 SEEN Urine WBC 0-5 SEEN Ur Squamous Epith Cells 0-5 SEEN Urine Bacteria 0 SEEN Urine Mucus 1+ Radiography Diagnostic Testing: Clinical Impression(s) from Imaging Studies Abdomen/Pelvis CT 03/27/25 19:03 IMPRESSION: Findings compatible with acute pancreatitis. Potential areas of necrotizing pancreatitis within thehead. Similar findings are noted on the previous study. Reading Location: [facility] Management Discussion w/another healthcare provider: Hospitalist (Dr. Zak Chamorro) and Apartment Maintenance Supervisor (Dr. Sotelo, gastroenterology) Discharge Plan Dx/Rx/DC Orders Clinical Impression: Pancreatitis, Nausea, Hypertension Disposition Disposition: Acute Care Hospital [facility] What to do if you have Problems For any increased pain, shortness of breath, bleeding, nausea or vomiting, chestpain, or any unexpected problems, contact your Primary Care Provider. Call [facility] ([phone]) or report tothe closest Emergency Room. Call 911 if necessary. 03/27/252051 Cosigner Signature (if applicable): CC: Dr. Mary Escobar MD ~ Signed [facility]10-08-2025 Radiology Diagnostic study note [facility] Imaging Services [address] [place], [place] [id number] Abdomen/Pelvis W IV Cont ONLY MR#: [id number] Acct: [id number] Name: CASIMIRO LIU Rep #: [id number] : 1980 F 44 From: Inocente Cason MD PCP: Dr. Mary Escobar MD Status: REG ER Study:Abdomen/Pelvis W IV Cont ONLY Date of E xam: 03/27/25 Exam# [id number] Ordering Dr: Vinicio Gaspar MD PROCEDURE: ABDOMEN/PELVIS W IV CONT ONLY 03/27/2025 REASON FOR EXAM: PAIN TECHNIQUE: Procedure Code: [id number] Modality: CT Procedure: ABDOMEN/PELVIS W IV CONT ONLY Coronal and Sagittal reconstruction series were provided. CONTRAST: VOLUME: mL One or more dose reduction techniques were used (e.g., Automated exposure control, adjustment of the mA and/or kV according to patient size, use of iterative reconstruction technique. COMPARISON: 10/20/2024. FINDINGS: Moderate fat stranding and mark mesentery surrounding the pancreas is suggestive of acute pancreatitis. No focal fluid collection to suggest an abscess or pseudocyst. Subtle areas of focal low- attenuation within the head of the pancreas could represent necrotizing pancreatitis. Cholecystectomy. Interval removal of the CBD stent. Fatty liver. No other acute abdominal or pelvic process is identified. No intraperitoneal free air. No evidence of a bowel obstruction. The appendix is visualized and normal-appearing. Small fat-containing umbilical hernia. The visualized lung bases are clear. No acute osseous abnormality. CT/Abdomen/Pelvis W IV Cont ONLY IMPRESSION: Findings compatible with acute pancreatitis. Potential areas of necrotizing pancreatitis within thehead. Similar findings are noted on the previous study. Reading Location: [id number] CC: Dr. Vinicio Gaspar MD; Dr. Mary Escobar MD ~ Comic Book Artist: Signed [facility]10-08-2025 Discharge summary Author Vinicio Gaspar [facility] Note Date/Time March 27, 2025 8: 52pm [facility] Medical Records Department [address] [place] [address] Emergency Department Summary 03/27/25 MR#: [id number] Acct: [id number] Name: CASIMIRO LIU Rep #:[id number] : 1980 44 From: Vinicio Gaspar MD PCP: Dr. Mary Escobar MD Status:REG ER Location: ED HPI HPI - GI History of Present Illness Chief Complaint: Abd Pain Narrative Narrative: 44-year-old female past medical history of hypertension and recurrent pancreatitis presents with epigastric pain and nausea that she has had for the last 2 days. Feels similar to her previous recurrent pancreatitis. She relateshistory that she had a cholecystectomy remotely, years ago. In September of this year, she had an episode of epigastric pain and was diagnosed with pancreatitis. She had been seen by Dr. Sotelo with gastroenterology and she states that they could not figure out why she was having abdominal pain until he did an ERCP and found the stone that had developed in the bile duct. She did require stenting as well, but states that was removed. She also states that she was told that she might get pancreatitis for the rest of her life. She states she felt feverish over the last few days. She is unsure if it was triggered by anything she ate. She is nauseated but has not vomited. She complains of epigastric pain that is unrelenting. It radiates to her back and more to the left side. PFSH PFS Medical History Gastric reflux History of biliary stent insertion Intractable abdominal pain Acute recurrent pancreatitis Hypertension Pancreatitis Hypertension Anxiety Home Medications ?Medication ?Instructions ?Recorded ?Last Taken ?Type ipratropium bromide 42 mcg (0.06 1 spray intranasal TI D PRN PRN 09/12/24 Unknown History %) nasal spray allergy symptoms sennosides 8.6 mg-docusate sodium 2 tab PO BID PRN Con stipation #0 10/22/24 Unknown Rx 50 mg tablet (Stimulant Laxative tabs Plus) amlodipine 5 mg tablet 5 mg PO DAILY 03/27/25 Unkno wn History topiramate 25 mg tablet 25 mg PO BID 03/27/25 Unknow n History Allergy/AdvReac Type Severity Reaction Status Date / Time No Known Allergies Allergy Verified 03/27/25 17:40 Family History Other Hypertension Surgical History S/P ERCP Hx of cholecystectomy Social History Smoking Status: Former smoker alcohol intake: current alcohol intake frequency: 0-2 drinks per day substance use type: does not use ROS ROS ED ROS Narrative Review of systems is positive for epigastric pain, subjective fever, nausea but no vomiting. No diarrhea. Pain in epigastrium radiates to left into back. No exacerbating or alleviating factors. EXAM Physical Exam Narrative Exam Narrative: Afebrile. Vital signs noted. Nontoxic-appearing. Cardiovascular examination reveals regular rate and rhythm. Lungs are clear to auscultation bilaterally. Abdomen is soft with mild tenderness to palpation in the epigastrium to the leftupper quadrant. No guarding or rebound. Positive bowel sounds. Neurological examination nonfocal, nonlateralizing. Const Vital Signs: 03/27/25 17:40 03/27/25 19:40 Temperature 98.6 F Temperature Source Oral Pulse Rate 87 73 Respiratory Rate 16 18 Blood Pressure 191/113 H 165/94 H Blood Pressure Mean 139 117 Pulse Ox 100 95 Oxygen Delivery Method Room Air Room Air MDM MDM MDM Narrative Medical decision making narrative: Differential diagnosis includes but not limited to acute on chronic pancreatitisversus transverse colon diverticulitis versus gastritis versus obstruction. I have low clinical suspicion for obstruction because the history and physical does not support this. Protocol labs were entered. I added CT imaging. I reviewed her prior ED visit from September where she had inflammation of the pancreas and biliary stent was in place. She had been admitted at that time. For analgesia, she states that she cannot have morphine. She was administered Dilaudid 1 mg intravenously as well as ondansetron 4 mg intravenously. I reviewed her laboratory work and she has slightly elevated white count of 11.5with hemoglobin 12.7, hematocrit 39.6, platelet count 338. CMP is significant for normal BUN of 11 and creatinine low at 0.50, glucose of 100 with a normal anion gap of 12. Alk phos slightly elevated at 119, lipase is greater than 3000. Serum test is negative. Urinalysis negative for infection. I reviewed the radiology report of the CT of the abdomen and pelvis. There is no pseudocyst but findings consistent with acute pancreatitis. While the radiologist mentioned portions that may be concerning for necrotizing pancreatitis, same was seen on similar study. I discussed patient with Dr. Sotelo who reviewed the radiology report and images. He did not feel that this was necrotizing, and that the patient could stay here and did not need transfer. However, he would like her bolused with normal saline 1 L then LR run at 350 mL/h. He also wanted meropenem 1 g to be given here in the emergency departmentthen 1 g every 8 hours. I discussed the patient with Dr. Chamorro for admission to the general medical floor. Patient is in stable condition. History & Record Review Discussion w/independent historian: Patient Additional record(s) reviewed:: Prior ED visit (Previous pancreatitis in September) Lab Data Attestation: I reviewed the patient's lab results. Labs: Laboratory Results - last 24 hr 03/27/25 03/27/25 18:25 18:30 WBC 11.5 H RBC 4.84 Hgb 12.7 Hct 39.6 MCV 81.8 MCH 26.2 L MCHC 32.1 RDW Std Deviation 39.2 RDW Coeff of Chelsie 13.3 Plt Count 338 MPV 10.2 Immature Gran % (Auto) 0.300 Neut % (Auto) 70.1 H Lymph % (Auto) 21.2 [place] % (Auto) 5.9 Eos % (Auto) 2.2 Baso % (Auto) 0.3 Absolute Neuts (auto) 8.0 H Absolute Lymphs (auto) 2.43 Nucleated RBC % 0 Sodium 138 Potassium 3.6 Chloride 99 Carbon Dioxide 26.7 Anion Gap 12 BUN 11 Creatinine 0.50 L Estim Creat Clear Calc 168.45 Est GFR (MDRD) Non-Af 118 BUN/Creatinine Ratio 22.0 H Glucose 100 H Calcium 10.7 Total Bilirubin 0.48 AST 25 ALT 24 Alkaline Phosphatase 119 H Total Protein 7.7 Albumin 4.7 Globulin 3.0 Albumin/Globulin Ratio 1.6 Lipase > 3000 H Serum , Qual NEGATIVE Urine Color Straw Urine Clarity Clear Urine pH 6.0 Ur Specific [place] 1.015 Urine Protein 15 H Urine Glucose (UA) Normal Urine Ketones Negative Urine Occult Blood 25 H Urine Nitrite Negative Urine Bilirubin Negative Urine Urobilinogen Normal Ur Leukocyte Esterase Negative Urine RBC 0-5 SEEN Urine WBC 0-5 SEEN Ur Squamous Epith Cells 0-5 SEEN Urine Bacteria 0 SEEN Urine Mucus 1+ Radiography Diagnostic Testing: Clinical Impression(s) from Imaging Studies Abdomen/Pelvis CT 03/27/25 19:03 IMPRESSION: Findings compatible with acute pancreatitis. Potential areas of necrotizing pancreatitis within the head. Similar findings are noted on the previous study. Reading Location: [id number] Management Discussion w/another healthcare provider: Hospitalist (Dr. Zak Chamorro) and Apartment Maintenance Supervisor (Dr. Sotelo, gastroenterology) Discharge Plan Dx/Rx/DC Orders Clinical Impression: Pancreatitis, Nausea, Hypertension Disposition Disposition: Acute Care Hospital [facility] What to do if you have Problems For any increased pain, shortness of breath, bleeding, nausea or vomiting, chestpain, or any unexpected problems, contact your Primary Care Provider. Call [facility] ([phone]) or report to the closest Emergency Room. Call 911 if necessary. 03/27/252051 <Electronically signed by Vinicio Gaspar MD> Cosigner Signature (if applicable): CC: Dr. Mary Escobar MD ~ Signed [facility] Work Phone: 1(909) 136-979507-02-2025 Telephone encounter Note* Telephone Encounter - Vitor Sims MD - 12/19/2024 3:11 PM EDT Needs routine MMG screening. Last MMG completed , LT breast nodule. New diag MMG and US ordered. Please call and inform. [facility]07-02-2025 Miscellaneous Notes* Telephone Encounter - Vitor Sims MD - 12/19/2024 3:11 PM EDT Needs routine MMG screening. Last MMG completed , LT breast nodule. New diag MMG and US ordered. Please call and inform. [facility] History and physical note Author Arturo Sotelo [facility] Note Date/Time November 29, 2024 1:25 pm [facility] Medical Records Department [address] [place] [address] History & Physical Exam 11/29/24 1323 MR#: [id number] Acct: [id number] Name: CASIMIRO LIU Rep #:[id number] : 1980 44 From: Arturo Sotelo DO PCP: Dr. Mary Escobar MD Status:REG SD C Location: [place] [address] HPI - General General Date of Admission: 11/29/24 Date of Service: 11/29/24 HPI Narrative CASIMIRO LIU, is a 44 F who presents for biliary stent removal. Hospitalized for initial pancreatitis episode at the end of August. Had ERCP done with choledocholithiasis that was removed, biliary stricture that was dilated and temporary stent placed. Hospitalized again from 09/25-09/29 for recurrent acute pancreatitis; the patient improved with conservative management and IV antibiotics. Did well for a few weeks but then began to have pain again leading to this admission. CT abdomen pelvis showed improved pancreatitis without pseudocyst or abscess and biliary stent without biliary ductal dilatation. [facility] Medical History Gastric reflux History of biliary stent insertion Intractable abdominal pain Acute recurrent pancreatitis Hypertension Pancreatitis Hypertension Anxiety Home Medications ?Medication ?Instructions ?Recorded ?Last Taken ?Type fluoxetine 40 mg capsule 40 mg PO DAILY mental health 09/12/24 Unknown History ipratropium bromide 42 mcg (0.06 1 spray intranasal TI D PRN PRN 09/12/24 Unknown History %) nasal spray allergy symptoms amlodipine 10 mg tablet 10 mg PO DAILY bp 30 days #3 0 tabs 09/19/24 Unknown Rx losartan 100 mg tablet 100 mg PO DAILY bp 30 days # 30 tabs 09/19/24 Unknown Rx pantoprazole 40 mg tablet,delayed 40 mg PO DAILY gerd #30 tabs 10/04/24 Unknown Rx release qynxim-oxeukltm-ktonyae 2 cap PO TIDCM 30 days #180 caps 10/22/24 Unknown Rx 24,000-76,000-120,000 unit capsule,delayed rel (Creon) ondansetron 4 mg disintegrating 4 mg PO TID PRN PRN na usea and 10/22/24 Unknown Rx tablet vomiting #30 tabs sennosides 8.6 mg-docusate sodium 2 tab PO BID PRN Con stipation #0 10/22/24 Unknown Rx 50 mg tablet (Stimulant Laxative tabs Plus) Allergy/AdvReac Type Severity Reaction Status Date / Time No Known Allergies Allergy Verified 11/29/24 12:41 Family History Other Hypertension Surgical History S/P ERCP Hx of cholecystectomy Social History Smoking Status: Former smoker alcohol intake: current alcohol intake frequency: 0-2 drinks per day substance use type: does not use ROS Constitutional Constitutional: Denies fatigue, fever(s), poor appetite, weight gain or weight loss Gastrointestinal Gastrointestinal: Reports abdominal pain; Denies belching, bloating, change in bowel habits, change in stool character, chewing difficulty, coffee ground emesis, constipation, cramping, diarrhea, dyspepsia, dysphagia, early satiety, excessive flatus, fecal incontinence, heartburn, hematemesis, hematochezia, hemorrhoids, loose stools, melena, nausea, odynophagia, rectal bleeding, tenesmus, vomiting or weight changes Vital Signs Vital Signs Vital Signs: 11/29/24 12:42 11/29/24 12:47 11/29/24 13:20 Temperature 98.1 F 98.1 F Temperature Source Temporal Pulse Rate 75 75 Respiratory Rate 16 16 Respiratory Pattern Normal Blood Pressure 146/86 H 146/86 H Blood Pressure Mean 106 Blood Pressure Source Monitor Blood Pressure Position Semi-Fowlers Blood Pressure Location Left Arm Pulse Ox 99 99 Oxygen Delivery Method Room Air Weight Weight: 209 lb 14.081 oz Body Mass Index (BMI) 36.0 Physical Exam Const alert, oriented x3, no apparent distress and healthy appearing General Appearance: cooperative GI normal to inspection, nondistended, normoactive bowel sounds, soft to palpation,non-tender and non-distended Percussion: normal to percussion Rectal Exam: deferred Results Lab / Micro Data Labs: Laboratory Results - last 24 hr 11/29/24 12:25: Urine Test Negative Assessment & Plan Assessment/Plan (1) Pancreatitis: QUALIFIERS: Chronicity: acute Pancreatitis type: idiopathic Acute pancreatitis complication: no infection or necrosis Qualified Code(s): K85.00 - Idiopathic acute pancreatitis without necrosis or infection (2) Choledocholithiasis: PLAN: She will undergo ERCP with stent removal. She was explained alternatives,risk and benefits including understanding bleeding, infection, sepsis, perforation, need for emergent cath. She will have an ASA of 3. 11/29/24 1325 <Electronically signed by Arturo Sotelo DO> Cosigner Signature (if applicable): CC: Dr. Mary Escobar MD; Arturo Sotelo DO~ Signed [facility] Work Phone: 1(131) 113-979106-12-2025 Consult note Author Santos Perez [facility] Note Date/Time November 29, 2024 1:22 pm [facility] Medical Records Department [address] [place] [address] Pre-Anesthesia Evaluation 11/29/24 1319 MR#: [id number] Acct: [id number] Name: CASIMIRO LIU Rep #:[id number] : 1980 44 From: Santos Perez MD PCP: Dr. Mary Escobar MD Status:REG SD C Y Race: C Location: [place] [address] ASA Classification* ASA Classification ASA Classification: 2 Assessment & Plan Anesthesia* Anesthesia Assessment Anesthesia Assessment: Discussed sedation and/or anesthesia options, risks, benefits, and alternatives with patient/parents/legal guardian/POA. Questions invited. The patient/parents/legal guardian/POA seems to understand and agrees to proceedwith anesthesia plan. Reviewed the physical assessment, medical history, allergy history and patient home medications list prior to surgery/procedure/anesthetic and documented any changes. Performed airway and anesthesia risk assessments. Anesthesia Type Anesthesia Type: MAC (GA bkup) Anesthesia Focused Assessment* Temperature: 98.1 F Pulse Rate: 75 Blood Pressure: 146/86 Respiratory Rate: 16 Pulse Ox: 99 Airway Assessment Mouth opens: >3 cm Mallampati Score: II Labs Anesthesia Preop lab: CBC WBC 8.0 K/mm3 (4.4-11.0) 10/22/24 07:42 10/22/24 RBC 4.66 M/mm3 (4.2-5.4) 10/22/24 07:42 10/22/24 Hgb 12.1 g/dL (12.0-15.0) 10/22/24 07:42 10/22/24 Hct 38.4 % (37-47) 10/22/24 07:42 10/22/24 Plt Count 393 K/mm3 (150-450) 10/22/24 07:42 10/22/24 CHEMISTRY Potassium 3.6 mmol/L (3.3-5.1) 10/22/24 07:42 10/22/24 Sodium 137 mmol/L (133-145) 10/22/24 07:42 10/22/24 Magnesium 1.9 mg/dL (1.5-2.2) 09/26/24 05:18 09/26/24 Phosphorus 3.4 mg/dL (2.7-4.5) 09/26/24 05:18 09/26/24 BUN 5 mg/dL (4-19) 10/22/24 07:42 10/22/24 Creatinine 0.59 mg/dL (0.70-1.20) L 10/22/24 07:42 Glucose 106 mg/dL (70-99) H 10/22/24 07:42 10/22/24 POC Glucose 68 mg/dL (74-106) L 09/27/24 16:25 09/27/24 TSH 0.397 uIU/mL (0.300-4.200) 09/13/24 05:08 08/19 01/11 COAG Urine Test Negative Negative 11/29/24 12:25 11/29/24 Pre-Assessment Diagnosis/Proposed Procedure Planned Operative Procedure(s): ERCP Anesthesia History 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 Any Problems With Anesthesia No 11/26/24 09:31 Cholinesterase deficiency No 11/26/24 09:31 You/Your Family Experience No 11/26/24 09:31 fever (hyperthermia) with Relationship Recent Exposure to Contagious No 11/29/24 12:42 Disease Does patient have nerve No 11/26/24 09:31 stimulator Patient instructed to have device shut off --Does patient have Pacemaker or ICD? When Was Last Pacemaker Check QUESTION #4 FULL TEXT: You/Your Family Experience fever (hyperthermia) with Anesthesia Last Oral Intake Last Oral intake: Last Oral Intake NPO since Meds taken in AM with sips of water? Meds patient instructed to take am of surgery PONV PONV - cylinder checker: PONV - cylinder checker Female Yes 11/26/24 09:31 HX of Motion Sickness Yes 11/26/24 09:31 HX of N/V After Surgery No 11/26/24 09:31 Non-Smoker Yes 11/26/24 09:31 Duration of Surgery greater No 11/26/24 09:31 than 60 minutes Number of Risk Factors 3 11/26/24 09:31 PONV Score Moderate Risk 11/26/24 09:31 Height & Weight Height & Weight: Anesthesia: Height & Weight Height 5 ft 4 in 11/29/24 12:47 Weight: 95.2 kg 11/29/24 12:47 Body Mass Index (BMI) 36.0 11/29/24 12:47 Respiratory Assessment Respiratory Assessment - cylinder checker: Respiratory Tract Infection Hx - cylinder checker Hx Respiratory Tract Infection No 11/26/24 09:31 STOP Sleep Apnea STOP Sleep Apnea - cylinder checker: STOP Sleep Apnea - cylinder checker Hx Hypertension Yes: CONTROLLED WITH MEDS 11/26/24 09:31 Hx Sleep Apnea No 11/26/24 09:31 CPAP BIPAP Do you snore loudly (louder No 11/26/24 09:31 than talking or can be heard Do you often feel tired/ No 11/26/24 09:31 fatigued/ sleepy during daytime? Has anyone observed you stop No 11/26/24 09:31 breathing during sleep? STOP Results Negative 11/26/24 09:31 QUESTION #5 FULL TEXT : Do you snore loudly (louder than talking or can be heard through closed doors)? 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 Specify any problems Hx of Preganancy in last 3 No 11/26/24 09:31 Months Nurse Filling Out Transfusion [email or web address] 11/26/24 09:31 & Questions: Date: 11/26/24 11/26/24 09:31 Time: 09:35 11/26/24 09:31 Patient unable to answer at this time (ie. confused, unrespo /Reproduction History /Reproductive History - cylinder checker: /Reproductive Hx- cylinder checker Hx Now No 11/26/24 09:31 Gestational Age (in weeks): EDC: Hx Hx Para Hx Section SAB No 11/26/24 09:31 Active Medications Active Medications: Current Medications Generic Name Dose Route Start Last Admin Trade Name Freq PRN Reason Stop Dose Admin Lactated Ringer's 1,000 mls @ 15 mls/hr 11/29/24 12:15 11/29/24 12:49 IV 15 mls/hr .Q48H NANCY Administration PFSH Medical History Gastric reflux History of biliary stent insertion Intractable abdominal pain Acute recurrent pancreatitis Hypertension Pancreatitis Hypertension Anxiety Home Medications ?Medication ?Instructions ?Recorded ?Last Taken ?Type fluoxetine 40 mg capsule 40 mg PO DAILY mental health 09/12/24 Unknown History ipratropium bromide 42 mcg (0.06 1 spray intranasal TI D PRN PRN 09/12/24 Unknown History %) nasal spray allergy symptoms amlodipine 10 mg tablet 10 mg PO DAILY bp 30 days #3 0 tabs 09/19/24 Unknown Rx losartan 100 mg tablet 100 mg PO DAILY bp 30 days # 30 tabs 09/19/24 Unknown Rx pantoprazole 40 mg tablet,delayed 40 mg PO DAILY gerd #30 tabs 10/04/24 Unknown Rx release umwwtk-nzralune-syshtcp 2 cap PO TIDCM 30 days #180 caps 10/22/24 Unknown Rx 24,000-76,000-120,000 unit capsule,delayed rel (Creon) ondansetron 4 mg disintegrating 4 mg PO TID PRN PRN na usea and 10/22/24 Unknown Rx tablet vomiting #30 tabs sennosides 8.6 mg-docusate sodium 2 tab PO BID PRN Con stipation #0 10/22/24 Unknown Rx 50 mg tablet (Stimulant Laxative tabs Plus) Allergy/AdvReac Type Severity Reaction Status Date / Time No Known Allergies Allergy Verified 11/29/24 12:41 Family History Other Hypertension Surgical History S/P ERCP Hx of cholecystectomy Social History Smoking Status: Former smoker alcohol intake: current alcohol intake frequency: 0-2 drinks per day substance use type: does not use Review of Systems (Anesthesia) ROS Narrative System reviewed and no additional complaints, except as documented. 11/29/24 1322 <Electronically signed by Santos Perez MD > Date _ Santos Perez MD Cosign Signature: Date CC: ~ Signed [facility] Work Phone: 1(460) 447-684106-12-2025 Procedure [facility] 11-29-2024 Procedure [facility]06-12-2025 Consult note Author Santos Perez [facility] Note Date/Time November 29, 2024 12:2 3pm [facility] Medical Records Department [address] [place] [address] Pre-Anesthesia Evaluation 11/29/24 1222 MR#: [id number] Acct: [id number] Name: CASIMIRO LIU Rep #:[id number] : 1980 44 From: Santos Perez MD PCP: Dr. Mary Escobar MD Status:REG SD C Y Race: C Location: [place] [address] ASA Classification* ASA Classification ASA Classification: 2 Assessment & Plan Anesthesia* Anesthesia Assessment Anesthesia Assessment: Discussed sedation and/or anesthesia options, risks, benefits, and alternatives with patient/parents/legal guardian/POA. Questions invited. The patient/parents/legal guardian/POA seems to understand and agrees to proceedwith anesthesia plan. Reviewed the physical assessment, medical history, allergy history and patient home medications list prior to surgery/procedure/anesthetic and documented any changes. Performed airway and anesthesia risk assessments. Anesthesia Type Anesthesia Type: General Anesthesia Focused Assessment* Airway Assessment Mouth opens: >3 cm Mallampati Score: II Labs Anesthesia Preop lab: CBC WBC 8.0 K/mm3 (4.4-11.0) 10/22/24 07:42 10/22/24 RBC 4.66 M/mm3 (4.2-5.4) 10/22/24 07:42 10/22/24 Hgb 12.1 g/dL (12.0-15.0) 10/22/24 07:42 10/22/24 Hct 38.4 % (37-47) 10/22/24 07:42 10/22/24 Plt Count 393 K/mm3 (150-450) 10/22/24 07:42 10/22/24 CHEMISTRY Potassium 3.6 mmol/L (3.3-5.1) 10/22/24 07:42 10/22/24 Sodium 137 mmol/L (133-145) 10/22/24 07:42 10/22/24 Magnesium 1.9 mg/dL (1.5-2.2) 09/26/24 05:18 09/26/24 Phosphorus 3.4 mg/dL (2.7-4.5) 09/26/24 05:18 09/26/24 BUN 5 mg/dL (4-19) 10/22/24 07:42 10/22/24 Creatinine 0.59 mg/dL (0.70-1.20) L 10/22/24 07:42 Glucose 106 mg/dL (70-99) H 10/22/24 07:42 10/22/24 POC Glucose 68 mg/dL (74-106) L 09/27/24 16:25 09/27/24 TSH 0.397 uIU/mL (0.300-4.200) 09/13/24 05:08 08/19 01/11 COAG Urine Test Negative Negative 09/18/24 03:00 09/18/24 Pre-Assessment Diagnosis/Proposed Procedure Planned Operative Procedure(s): ERCP Anesthesia History Anesthesia History - cylinder checker: Anesthesia History - cylinder checker Hx Hospitalization Yes: 09/2024, PANCREATITIS 11/26/24 09:31 [facility] Any Problems With Anesthesia No 11/26/24 09:31 Cholinesterase deficiency No 11/26/24 09:31 You/Your Family Experience No 11/26/24 09:31 fever (hyperthermia) with Relationship Recent Exposure to Contagious No 10/17/24 08:48 Disease Does patient have nerve No 11/26/24 09:31 stimulator Patient instructed to have device shut off --Does patient have Pacemaker or ICD? When Was Last Pacemaker Check QUESTION #4 FULL TEXT: You/Your Family Experience fever (hyperthermia) with Anesthesia Last Oral Intake Last Oral intake: Last Oral Intake NPO since Meds taken in AM with sips of water? Meds patient instructed to take am of surgery PONV PONV - cylinder checker: PONV - cylinder checker Female Yes 11/26/24 09:31 HX of Motion Sickness Yes 11/26/24 09:31 HX of N/V After Surgery No 11/26/24 09:31 Non-Smoker Yes 11/26/24 09:31 Duration of Surgery greater No 11/26/24 09:31 than 60 minutes Number of Risk Factors 3 11/26/24 09:31 PONV Score Moderate Risk 11/26/24 09:31 Height & Weight Height & Weight: Anesthesia: Height & Weight Height 5 ft 4 in 10/22/24 11:46 Respiratory Assessment Respiratory Assessment - cylinder checker: Respiratory Tract Infection Hx - cylinder checker Hx Respiratory Tract Infection No 11/26/24 09:31 STOP Sleep Apnea STOP Sleep Apnea - cylinder checker: STOP Sleep Apnea - cylinder checker Hx Hypertension Yes: CONTROLLED WITH MEDS 11/26/24 09:31 Hx Sleep Apnea No 11/26/24 09:31 CPAP BIPAP Do you snore loudly (louder No 11/26/24 09:31 than talking or can be heard Do you often feel tired/ No 11/26/24 09:31 fatigued/ sleepy during daytime? Has anyone observed you stop No 11/26/24 09:31 breathing during sleep? STOP Results Negative 11/26/24 09:31 QUESTION #5 FULL TEXT : Do you snore loudly (louder than talking or can be heard through closed doors)? 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 Specify any problems Hx of Preganancy in last 3 No 11/26/24 09:31 Months Nurse Filling Out Transfusion [email or web address] 11/26/24 09:31 & Questions: Date: 11/26/24 11/26/24 09:31 Time: 09:35 11/26/24 09:31 Patient unable to answer at this time (ie. confused, unrespo /Reproduction History /Reproductive History - cylinder checker: /Reproductive Hx- cylinder checker Hx Now No 11/26/24 09:31 Gestational Age (in weeks): EDC: Hx Hx Para Hx Section SAB No 11/26/24 09:31 Active Medications Active Medications: Current Medications Generic Name Dose Route Start Last Admin Trade Name Freq PRN Reason Stop Dose Admin Lactated Ringer's 1,000 mls @ 15 mls/hr 11/29/24 12:15 IV .Q48H NANCY PFSH Medical History Gastric reflux History of biliary stent insertion Intractable abdominal pain Acute recurrent pancreatitis Hypertension Pancreatitis Hypertension Anxiety Home Medications ?Medication ?Instructions ?Recorded ?Last Taken ?Type fluoxetine 40 mg capsule 40 mg PO DAILY mental health 09/12/24 Unknown History ipratropium bromide 42 mcg (0.06 1 spray intranasal TI D PRN PRN 09/12/24 Unknown History %) nasal spray allergy symptoms amlodipine 10 mg tablet 10 mg PO DAILY bp 30 days #3 0 tabs 09/19/24 Unknown Rx losartan 100 mg tablet 100 mg PO DAILY bp 30 days # 30 tabs 09/19/24 Unknown Rx pantoprazole 40 mg tablet,delayed 40 mg PO DAILY gerd #30 tabs 10/04/24 Unknown Rx release yowyqp-zrlobyrh-ydluqgn 2 cap PO TIDCM 30 days #180 caps 10/22/24 Unknown Rx 24,000-76,000-120,000 unit capsule,delayed rel (Creon) ondansetron 4 mg disintegrating 4 mg PO TID PRN PRN na usea and 10/22/24 Unknown Rx tablet vomiting #30 tabs sennosides 8.6 mg-docusate sodium 2 tab PO BID PRN Con stipation #0 10/22/24 Unknown Rx 50 mg tablet (Stimulant Laxative tabs Plus) Allergy/AdvReac Type Severity Reaction Status Date / Time No Known Allergies Allergy Verified 11/26/24 09:29 Family History Other Hypertension Surgical History S/P ERCP Hx of cholecystectomy Social History Smoking Status: Former smoker alcohol intake: current alcohol intake frequency: 0-2 drinks per day substance use type: does not use Review of Systems (Anesthesia) ROS Narrative System reviewed and no additional complaints, except as documented. 11/29/24 1223 <Electronically signed by Santos Perez MD > Date _ Santos Perez MD Cosigner Signature: Date CC: ~ Signed [facility] Work Phone: 1(693) 520-478306-12-2025 Evaluation note* Diagnosis Onset Date Resolution Status Admit Date Choledocholithiasis acute November 29, 2024 12:04pm Pancreatitis acute November 29, 025 12:04pm Nausea acute March 27, 025 9:16pm Pancreatitis acute March 27, 2025 9:16pm Hypertension chronic March 27, 2025 9:16pm [facility] Work Phone: [phone] [facility]05-05-2025 [facility]29[facility]25 [facility] 09-29-2024 Discharge summary [facility] Medical Records Department [address] [place] [address] Discharge Summary 09/29/24 0951 MR#: [id number] Acct: [id number] Name: CASIMIRO LIU Rep #:[id number] : 1980 44 From: Charlotte Gibbs DO PCP: Dr. Mary Escobar MD Status:ADM IN Location: [place] [address]1 Providers Date of Admission: 09/25/24 Date of Discharge: 09/29/24 Primary Care Physician: Mary Escobar MD Consultations 09/25/24 11:59 Consult: Gastroenterology Routine Consulting Provider: Arturo Sotelo Reason for Consult: Recurrent Pancreatitis EMERGENT Consult: No MD Notified: Yes Date Notified: 09/25/24 Time Notified: 09:47 Method of Notification: ED Physician Initiated Reason For Visit: ACUTE PANCREATITIS RESOLVED Diagnosis Discharge Diagnosis (1) Acute pancreatitis: Status: Resolved Code(s): K85.90 - Acute pancreatitis without necrosis or infection, unspecified (2) Hypertension: Status: Inactive Code(s): I10 - Essential (primary) hypertension (3) Leukocytosis: Status: Resolved Code(s): D72.829 - Elevated white blood cell count, unspecified (4) Right sided abdominal pain: Status: Acute Code(s): R10.9 - Unspecified abdominal pain Medications at Discharge Home Medications fluoxetine 40 mg capsule 40 mg PO DAILY mental health 09/12/24 ipratropium bromide 42 mcg (0.06 %) nasal spray 1 spray intranasal TID PRN PRN allergy symptoms 09/12/24 amlodipine 10 mg tablet 10 mg PO DAILY 30 days #30 tabs 09/19/24 losartan 100 mg tablet 100 mg PO DAILY 30 days #30 tabs 09/19/24 oxycodone 5 mg tablet 5 mg PO Q6H PRN pain 3 days #12 tabs 09/19/24 prochlorperazine maleate 5 mg tablet (Compazine) 5 mg PO BID 09/25/24 amoxicillin 875 mg-potassium clavulanate 125 mg tablet 1 tab PO BID #14 tabs 09/29/24 oxycodone 5 mg tablet 10 mg (2 x 5 mg) PO Q6H PRN PRN Pain Score 4-10 3 days #12tabs 09/29/24 Hospital Course Operations None Procedures - (CT abdomen and pelvis) Summary of Care Provided Minutes Spent on Discharge: 37 Hospital Course: CASIMIRO LIU, is a 44 F who presented to the emergency department [facility] on09/25/2024 with chief complaint of abdominal pain that was intractable. Patient was initially seen on09/24/2024 and was discharged at 9 AM. She was medicated with narcotics and drove herself. The plan was to discharge her back home however prior to discharge nursing reported that show he was in increased pain and requesting more pain medication. CT of the abdomen and pelvis did show some evidence ofacute pancreatitis. Patient was recently admitted from 09/12/2024 through 2024 at which time shewas found to have choledocholithiasis however her labs did not support these findings during her presentation. Stent was placed and she was discharged home and stated she was feeling better until Tuesday evening when her pain returned. It slowly worsened over time which led to her initial and then subsequent ED visits. She has had some mild nausea and her abdominal pain is similar to her previous pancreatitis. She does have previous pancreatitis diagnosis remotely at which time she was admitted at [facility]. She had COVID at that time as well. She did receive her primary care physician on the day of presentation and they did put her on some doxycycline for her abdominal pain. She was unclear as what the diagnosis was. When her pain became worse she decided to be evaluated. Vital signs on presen tation showed temperature of 98, heart rate 86, respiratory rate 16, bloodpressure was 155/89 and pulse ox was 98% on room air. CBC on presentation showeda leukocytosis with a white count of 25.3 cliff left shift with an 84.4% neutrophilia. Chemistry panel was overtly unremarkable other than hypergl ycemiawith a blood sugar of 209. Lactic acid was normal at 1.8. Liver functions wereunremarkable. Lipase was 287. Procalcitonin was 0.09. She did have a CT of the abdomen pelvis on 09/24/2024 which showed unchanged hepatomegaly with hepatic steatosis, moderately enlarged pancreas suggestive of acute pancreatitis that was improved from previous likely, mild decrease in peripancreatic inflammation and fat stranding with edema, significant decrease in perihepatic fluid, CBD stent in good position, pneumobilia from previous enterotomy, uncomplicated colonic diverticulosis and mild splenomegaly withthickening of the bladder unchanged from previous which is consistent with gastritis and minimal residual left pleural effusion with resolved right pleural effusion. She was admitted tot medical floor placed on aggressive IV fluids, antibiotics with Zosyn, was made n.p.o. except for sips and chips and home medications, and placed on IV pain medication. She slowly improved with time. She was evaluated by gastroenterology and they elected to hold off on a repeat ERCP as she was clinically improving. Etiology for pancreatitis is still unclear. Thus far herautoimmune workup is benign however all that has not yet resulted. Her diet wasslowly advanced to the point where she was eating a regulardiet for full 24 hours prior to discharge. She was feeling much better and ready to go home on 09/29/2024. She was having very minimal pain. We did send her with some short- term pain medication just in case she gets into trouble. She is to call Dr. Sotelo's office and get an appointment to be seen next week. We advised that she see her primary care physician within the next week as well. Discharge diagnoses: Recurrent acute pancreatitis Leukocytosis Chronic anemia Hyperglycemia-reactive with an A1c of 5.5 Hypertension Hepatomegaly Anxiety Depression Obesity Physical Exam Const alert, oriented x3, no apparent distress, no limitations and well nourished; Negative for average body habitus or healthy appearing Constitutional Narrative: Obese, middle-aged, white female, up walking the halls, appears well, nontoxic General Appearance: cooperative, comfortable, well kempt and well developed Exam Limitations: no limitations Nutritional Appearance: obese HEENT normocephalic, head/scalp atraumatic, hearing grossly normal bilaterally and moist oral mucous membranes Eyes EOMs intact bilaterally and conjunctivae normal Neck supple Neck Narrative: Neck is short thick, trachea midline Resp normal respiratory effort, no retractions, no use of accessory muscles and clearto auscultation bilaterally Auscultation: Negative for rales, rhonchi or wheezes Cardio regular rate, regular rhythm, S1 normal heart sound, S2 normal heart sound, no murmurs, no rub, no gallops and no clicks GI normal to inspection, nondistended, normoactive bowel sounds, soft to palpation and non-tender Extremity no clubbing, cyanosis or edema Extremity Narrative: Pedal and radial pulses are 2+ Skin skin turgor normal, no jaundice, no petechiae and no mottling Neuro oriented x3, moves all extremities and no focal motor deficits Neuro Narrative: Normal gait pattern without assistive device Speech: speech normal Psych affect normal Psych Narrative: Very pleasant, interacts appropriately Weight / BMI Weight Weight: 94.1 kg Body Mass Index (BMI) 35.4 ABG / Lab / Microbiology Data 09/28/24 05:15 09/28/24 05:15 D/C Instructions Discharge Diet: Low fat / Low cholesterol Discharge Activity: Return to Normal Activity Return to work on: 10/01/24 DC O2, CPAP, BIPAP Needs Home O2 Discharge instructions: No Meaningful Use Info Meaningful Use Meaningful Use Diagnoses (Choose all that apply): None applicable Ischemic Stroke Statin Dosing Therapy Reference: STATIN DOSE THERAPY REFERENCE: * Patients > 75 years receive moderate or high dose statin therapy. * Patients 75 years or YOUNGER should receive HIGH intensity statin dose unless contraindicated. You will be required to document reason for non-treatment if statin daily dose does not meet guidelines. HIGH DOSE STATIN THERAPY DAILY Atorvastatin > than or = to 40 mg Rosuvastatin > than or = to 20 mg Amlodipine + Atorvastatin > than or = to 2.5/40 mg Ezetimibe + Simvastatin 10/80 mg Simvastatin 80mg Discharge Plan Admission Admit Date/Time: 09/25/24 09:44 Primary Reason for Your Visit: Abdominal Pain Attending Provider: Charlotte Gibbs Primary Care Provider: Mary Escobar Consulting Providers: Arturo Sotelo Instructions Additional Instructions / Restrictions: Discharge Orders/Prescriptions Prescriptions: New oxycodone 5 mg Tablet 10 mg PO Q6H PRN PRN (Reason: Pain Score 4-10) 3 Days Qty: 12 0RF amoxicillin-pot clavulanate 875-125 mg tablet 1 tab PO BID Qty: 14 0RF Continued prochlorperazine maleate [Compazine] 5 mg tablet 5 mg PO BID ipratropium bromide 42 mcg (0.06 %) spray,non-aerosol 1 spray INTRANASAL TID PRN PRN (Reason: allergy symptoms) fluoxetine 40 mg capsule 40 mg PO DAILY amlodipine 10 mg Tablet 10 mg PO DAILY 30 Days Qty: 30 2RF losartan 100 mg Tablet 100 mg PO DAILY 30 Days Qty: 30 2RF oxycodone 5 mg tablet 5 mg PO Q6H PRN (Reason: pain) 3 Days Qty: 12 0RF Discontinued doxycycline hyclate 100 mg tablet 100 mg PO BID Referrals / Follow Up: Mary Escobar MD [Primary Care Provider] - Within 1 Week Arturo Sotelo DO [Med Staff - Active Staff] - Within 1 Week Disposition Disposition (needs filled in before D/C Order can be placed): Home, Self Care Charges/Coding Visit Charges Inpatient E&M: 69643 Disch Hosp >30min 09/29/24 1017 Cosigner Signature (if applicable): CC: Dr. Mary Escobar MD; Dr. Charlotte Gibbs DO; Arturo Sotelo DO~ Signed [facility]04-12-2025 [facility]04-11-2025 Progress note Author Arturo Sotelo [facility] Note Date/Time September 28, 2024 7:3 0pm [facility] Medical Records Department [address] [place] [id number] Progress Note 09/28/241927 MR#: [id number] Acct: [id number] Name: CASIMIRO LIU Rep #:[id number] : 1980 44 From: Arturo Sotelo DO PCP: Dr. Mary Escobar MD Status:ADM IN Location: [place] [id number] Progress Note Patient's IV pain medicine has been stopped. She has been eating with pancreatic enzymes and they have been taking for pain medicine. She rates her pain a 6 out of 10. Physical Exam Const alert, oriented x3, no apparent distress and well nourished; Negative for average body habitus or healthy appearing General Appearance: cooperative HEENT normocephalic, head/scalp atraumatic and moist oral mucous membranes HEENT Narrative: Mallampati 3-4, no thrush Resp normal respiratory effort, no retractions, no use of accessory muscles and clearto auscultation bilaterally Auscultation: Negative for rales, rhonchi or wheezes Cardio regular rate, regular rhythm, S1 normal heart sound, S2 normal heart sound, no murmurs, no rub, no gallops and no clicks GI normal to inspection, nondistended, normoactive bowel sounds and soft to palpation; Negative for non-tender GI Narrative: Minimal pain left upper quadrant and epigastrium today Extremity no clubbing, cyanosis or edema Extremity Narrative: Pedal and radial pulses are 2+ Neuro oriented x3, moves all extremities and no focal motor deficits Speech: speech normal Psych affect normal Psych Narrative: Very pleasant, interacts appropriately Assessment & Plan Assessment/Plan (1) Acute pancreatitis: (2) Hypertension: (3) Leukocytosis: PLAN: Plan 43-year-old with history of cholecystitis status post cholecystectomy with history of acute recurrent pancreatitis. She has no history of hypertriglyceridemia, cystic fibrosis, IgG associated disease, multiple endocrine neoplasia, celiac disease, vasculitis. However MRCP did not show any signs of pancreatic divisum.Her initial episode of pancreatitis started more than 4 years ago when she suffered from 4 episodes of acute pancreatitis and went on to have a cholecystectomy. She underwent ERCP. she had sphincterotomy with stone removal and stent placement. She has never been on pancreatic enzymes and she has never had an endoscopic ultrasound.The pancreatic parenchyma was normal in signal and appearance without mass or?pancreatic duct?dilatation on these tests. Her symptoms have increased in severity over the past year. She has no signs and symptoms of chronic pancreatitis. Recurrent acute pancreatitis is defined as more than 2 episodes of a sudden inflammation of the pancreas. Clinical symptoms usually start with?epigastric pain?that sometimes spreads to the back and is associated with nausea, vomiting,and fever. Most cases of acute pancreatitis result from?biliary stone disease?and longstanding alcohol consumption. Workup including: KENZIE comprehensive, workup for cystic fibrosis, celiac disease,IgG4 associated, vasculitis, HIV, repeat triglycerides, inflammatory bowel disease, hereditary pancreatitis: Three-gene Profile (PRSS1, SPINK1, CFTR), Phosphatidylethanol (PEth)-lab a bit but she has any excessive alcohol with thelast 3 months. Recommended continue supportive care and await blood test. She will likely needendoscopic ultrasound to definitively look for any signs of chronic pancreatitisand possibly need pancreatic biopsy. 09/27/2024-I will advance her diet as tolerated. I told her that is going to take a long time for her autoimmune workup and hereditary pancreatitis workup tocome back. If she is tolerating a diet and her pain is under control then she should be able to go home. 09/28/2024-acute recurrent pancreatitis. Etiology of her acute recurrent pancreatitis is not totally known yet. If she continues to tolerate diet and her pain is under control she can be DC'd tomorrow with follow-up in the clinic. Visit Charges Inpatient E&M: 19737 Subs Hosp L3 09/28/241929 <Electronically signed by Arturo Sotelo DO> Arturo Sotelo DO Cosigner Signature (if applicable): CC: ~ Signed [facility] Work Phone: 1(515) 366-579304-11-2025 Progress note [facility] Medical Records Department [address] [place] [address] Progress Note 09/28/241927 MR#: [id number] Acct: [id number] Name: CASIMIRO LIU Rep #:[id number] : 1980 44 From: Arturo Sotelo DO PCP: Dr. Mary Escobar MD Status:ADM IN Location: [place] [address] Progress Note Patient's IV pain medicine has been stopped. She has been eating with pancreatic enzymes and they have been taking for pain medicine. She rates her pain a 6 out of 10. Physical Exam Const alert, oriented x3, no apparent distress and well nourished; Negative for average body habitus or healthy appearing General Appearance: cooperative HEENT normocephalic, head/scalp atraumatic and moist oral mucous membranes HEENT Narrative: Mallampati 3-4, no thrush Resp normal respiratory effort, no retractions, no use of accessory muscles and clearto auscultation bilaterally Auscultation: Negative for rales, rhonchi or wheezes Cardio regular rate, regular rhythm, S1 normal heart sound, S2 normal heart sound, no murmurs, no rub, no gallops and no clicks GI normal to inspection, nondistended, normoactive bowel sounds and soft to palpation; Negative for non-tender GI Narrative: Minimal pain left upper quadrant and epigastrium today Extremity no clubbing, cyanosis or edema Extremity Narrative: Pedal and radial pulses are 2+ Neuro oriented x3, moves all extremities and no focal motor deficits Speech: speech normal Psych affect normal Psych Narrative: Very pleasant, interacts appropriately Assessment & Plan Assessment/Plan (1) Acute pancreatitis: (2) Hypertension: (3) Leukocytosis: PLAN: Plan 43-year-old with history of cholecystitis status post cholecystectomy with history of acute recurrent pancreatitis. She has no history of hypertriglyceridemia, cystic fibrosis, IgG associated disease, multiple endocrine neoplasia, celiac disease, vasculitis. However MRCP did not show any signs of pancreatic divisum.Her initial episode of pancreatitis started more than 4 years ago when she suffered from 4 episodes of acute pancreatitis and went on to have a cholecystectomy. She underwent ERCP. she had sphincterotomy with stone removal and stent placement. She has never been on pancreatic enzymes and she has never had an endoscopic ultrasound.The pancreatic parenchyma was normal in signal and appearance without mass or?pancreatic duct?dilatation on these tests. Her symp toms have increased in severity over the past year. She has no signs and symptoms of chronic pancreatitis. Recurrent acute pancreatitis is defined as more than 2 episodes of a sudden inflammation of the pancreas. Clinical symptoms usually start with?epigastric pain?that sometimes spreads to the back and is associated with nausea, vomiting,and fever. Most cases of acute pancreatitis result from?biliary stone disease?and longstanding alcohol consumption. Workup including: KENZIE comprehensive, workup for cystic fibrosis, celiac disease,IgG4 associated, vasculitis, HIV, repeat triglycerides, inflammatory bowel disease, hereditary pancreatitis: Three-geneProfile (PRSS1, SPINK1, CFTR), Phosphatidylethanol (PEth)-lab a bit but she has any excessive alcohol with thelast 3 months. Recommended continue supportive care and await blood test. She will likely needendoscopic ultrasound to definitively look for any signs of chronic pancreatitisand possibly need pancreatic biopsy. 09/27/2024-I will advance her diet as tolerated. I told her that is going to take a long time for her autoimmune workup and hereditary pancreatitis workup tocome back. If she is tolerating a diet and her pain is under control then she should be able to go home. 09/28/2024-acute recurrent pancreatitis. Etiology of her acute recurrent pancreatitis is not totallyknown yet. If she continues to tolerate diet and her pain is under control she can be DC'd tomorrowwith follow-up in the clinic. Visit Charges Inpatient E&M: 88374 Subs Hosp L3 09/28/241929 Arturo Friend DO Jordan Signature (if applicable): CC: ~ Signed [facility]04-11-2025 Progress note Author Charlotte Gibbs [facility] Note Date/Time September 28, 2024 4:0 6pm [facility] Medical Records Department [address] [place] [address] Progress Note - Hospitalist 09/28/24 1600 MR#: [id number] Acct: [id number] Name: CASIMIRO LIU Rep #:[id number] : 1980 44 From: Charlotte Gibbs DO PCP: Dr. Mary Escobar MD Status:ADM IN Location: [place] [address]1 Reason for Visit Reason for Visit: Abdominal pain Subjective Subjective Patient states that she has been tolerating a diet decently well. Still requiring some intermittent pain medication. I did discuss with her that we would go ahead and stop IV fluids and IV pain medicines and see how she does with oral pain medications through the rest of the day and through the night andthen make further decisions depending on how her p.o. intake has been and her pain over the next 24 hours. If she does well as we are hoping she should be able to go home tomorrow. Objective Data Objective Data Vital Signs: Vital Signs Temp Pulse Resp BP Pulse Ox O2 Del Method 98.0 F 72 15 116/71 94 Room Air 09/28/24 12:21 09/28/24 12:21 09/28/24 12:21 09/28/24 12:21 09/28/24 12:21 09/28/24 12:21 Oxygen Delivery Method Room Air Weight: 94.2 kg Body Mass Index (BMI) 35.4 Intake & Output: Intake and Output for Last 24 Hours 09/26/24 09/27/24 09/28/24 23:59 23:59 23:59 Intake Total 2110 / 2160 1200 / 1200 956.25 / 956.25 Output Total 800 / 800 Balance 1310 / 1360 1200 / 1200 956.25 / 956.25 Lab / Micro Data 09/28/24 05:15 09/28/24 05:15 Labs: Laboratory Results - last 24 hr 09/27/24 16:25: POC Glucose 68 L 09/28/24 05:15: WBC 8.9, RBC 4.09 L, Hgb 10.8 L, Hct 34.7 L, MCV 84.8, MCH 26.4 L, MCHC 31.1 L, RDW Std Deviation 41.0, RDW Coeff of Chelsie 13.2, Plt Count 344, MPV 10.0, Immature Gran % (Auto) 0.600, Neut % (Auto) 65.7, Lymph % (Auto) 22.8,[place] % (Auto) 5.8, Eos % (Auto) 4.8, Baso % (Auto) 0.3, Absolute Neuts (auto) 5.9, Absolute Lymphs (auto) 2.04, Nucleated RBC % 0, Sodium 136, Potassium 3.9, Chloride 99, Carbon Dioxide 25.1, Anion Gap 13, BUN 15, Creatinine 0.62 L, EstimCreat Clear Calc 128.87, Est GFR (MDRD) Non-Af 113, BUN/Creatinine Ratio 23.5 H,Glucose 92, Calcium 10.1, Total Bilirubin 0.26, AST 21, ALT 17, Alkaline Phosphatase 101, Total Protein 6.8, Albumin 3.4 L, Globulin 3.5, Albumin/Globulin Ratio 1.0 Physical Exam Const alert, oriented x3, no apparent distress and well nourished; Negative for average body habitus or healthy appearing Constitutional Narrative: Obese, middle-aged, white female, lying in bed appears comfortable at this time,nontoxic General Appearance: cooperative HEENT normocephalic, head/scalp atraumatic and moist oral mucous membranes HEENT Narrative: Mallampati 3-4, no thrush Resp normal respiratory effort, no retractions, no use of accessory muscles and clearto auscultation bilaterally Auscultation: Negative for rales, rhonchi or wheezes Cardio regular rate, regular rhythm, S1 normal heart sound, S2 normal heart sound, no murmurs, no rub, no gallops and no clicks GI normal to inspection, nondistended, normoactive bowel sounds and soft to palpation; Negative for non-tender GI Narrative: Minimal pain left upper quadrant and epigastrium today Extremity no clubbing, cyanosis or edema Extremity Narrative: Pedal and radial pulses are 2+ Neuro oriented x3, moves all extremities and no focal motor deficits Speech: speech normal Psych affect normal Psych Narrative: Very pleasant, interacts appropriately Assessment & Plan Assessment/Plan (1) Pancreatitis: (2) Leukocytosis: (3) Intractable pain: PLAN: Plan Recurrent acute pancreatitis -Diet was advanced yesterday by gastroenterology and patient doing fair with this still requiring some intermittent pain medications -Discontinue IV pain medication and continue p.o. for now -Discontinue IV fluids -Continue antiemetics as needed -Choledocholithiasis was found at her last hospitalization and biliary stent wasplaced with stone removal -Continue Zosyn with recent stent placement -Discussed the case with Dr. Sotelo and current plan is for watchful waiting andhope she does not ERCP at this time Leukocytosis -Resolved Chronic anemia -Hemoglobin appears to be stable in the 10-11 range -Stable compared to previous admission -Repeat CBC in the a.m. Hyperglycemia -Suspect reactive -A1c is 5.5 -Discontinue coverage Hypertension -Patient typically is fairly hypertensive however blood pressures today are on the low side -Hold antihypertensives today -Hold home losartan -Hold home amlodipine -As needed hydralazine for systolic pressure greater than 150 Hepatomegaly -Suspect nonalcoholic fatty liver disease -Recommend weight loss -Outpatient GI follow-up Anxiety/depression -Continue home fluoxetine Obesity -BMI 35.6 -Recommend weight loss -Complicates treatment, prognosis, outcomes DVT prophylaxis -Lovenox subcu daily CODE STATUS -Full code Charges/Coding Visit Charges Inpatient E&M: 35825 Subs Hosp L2 09/28/24 1606 <Electronically signed by Charlotte Gibbs DO> Cosigner Signature (if applicable): CC: ~ Signed [facility] Work Phone: 1(849) 755-461204-11-2025 Progress note [facility] Medical Records Department [address] [place] [address] Progress Note - Hospitalist 09/28/24 1600 MR#: [id number] Acct: [id number] Name: CASIMIRO LIU Rep #:[id number] : 1980 44 From: Charlotte Gibbs DO PCP: Dr. Mary Escobar MD Status:ADM IN Location: MS3 IO171-8 Reason for Visit Reason for Visit: Abdominal pain Subjective Subjective Patient states that she has been tolerating a diet decently well. Still requiring some intermittentpain medication. I did discuss with her that we would go ahead and stop IV fluids and IV pain medicines and see how she does with oral pain medications through the rest of the day and through the night andthen make further decisions depending on how her p.o. intake has been and her pain over the next 24 hours. If she does well as we are hoping she should be able to go home tomorrow. Objective Data Objective Data Vital Signs: Vital Signs Temp Pulse Resp BP Pulse Ox O2 Del Method 98.0 F 72 15 116/71 94 Room Air 09/28/24 12:21 09/28/24 12:21 09/28/24 12:21 09/28/24 12:21 09/28/24 12:21 09/28/24 12:21 Oxygen Delivery Method Room Air Weight: 94.2 kg Body Mass Index (BMI) 35.4 Intake & Output: Intake and Output for Last 24 Hours 09/26/24 09/27/24 09/28/24 23:59 23:59 23:59 Intake Total 2110 / 2160 1200 / 1200 956.25 / 956.25 Output Total 800 / 800 Balance 1310 / 1360 1200 / 1200 956.25 / 956.25 Lab / Micro Data 09/28/24 05:15 09/28/24 05:15 Labs: Laboratory Results - last 24 hr 09/27/24 16:25: POC Glucose 68 L 09/28/24 05:15: WBC 8.9, RBC 4.09 L, Hgb 10.8 L, Hct 34.7 L, MCV 84.8, MCH 26.4 L, MCHC 31.1 L, RDWStd Deviation 41.0, RDW Coeff of Chelsie 13.2, Plt Count 344, MPV 10.0, Immature Gran % (Auto) 0.600, Neut % (Auto) 65.7, Lymph % (Auto) 22.8,Tarrant % (Auto) 5.8, Eos % (Auto) 4.8, Baso % (Auto) 0.3, Absolute Neuts (auto) 5.9, Absolute Lymphs (auto) 2.04, Nucleated RBC % 0, Sodium 136, Potassium 3.9, Chlo ride 99, Carbon Dioxide 25.1, Anion Gap 13, BUN 15, Creatinine 0.62 L, EstimCreat Clear Calc 128.87, Est GFR (MDRD) Non-Af 113, BUN/Creatinine Ratio 23.5 H,Glucose 92, Calcium 10.1, Total Bilirubin 0.26, AST 21, ALT 17, Alkaline Phosphatase 101, Total Protein 6.8, Albumin 3.4 L, Globulin 3.5, Albumi n/Globulin Ratio 1.0 Physical Exam Const alert, oriented x3, no apparent distress and well nourished; Negative for average body habitus or healthy appearing Constitutional Narrative: Obese, middle-aged, white female, lying in bed appears comfortable at this time,nontoxic General Appearance: cooperative HEENT normocephalic, head/scalp atraumatic and moist oral mucous membranes HEENT Narrative: Mallampati 3-4, no thrush Resp normal respiratory effort, no retractions, no use of accessory muscles and clearto auscultation bilaterally Auscultation: Negative for rales, rhonchi or wheezes Cardio regular rate, regular rhythm, S1 normal heart sound, S2 normal heart sound, no murmurs, no rub, no gallops and no clicks GI normal to inspection, nondistended, normoactive bowel sounds and soft to palpation; Negative for non-tender GI Narrative: Minimal pain left upper quadrant and epigastrium today Extremity no clubbing, cyanosis or edema Extremity Narrative: Pedal and radial pulses are 2+ Neuro oriented x3, moves all extremities and no focal motor deficits Speech: speech normal Psych affect normal Psych Narrative: Very pleasant, interacts appropriately Assessment & Plan Assessment/Plan (1) Pancreatitis: (2) Leukocytosis: (3) Intractable pain: PLAN: Plan Recurrent acute pancreatitis -Diet was advanced yesterday by gastroenterology and patient doing fair with this still requiring some intermittent pain medications -Discontinue IV pain medication and continue p.o. for now -Discontinue IV fluids -Continue antiemetics as needed -Choledocholithiasis was found at her last hospitalization and biliary stent wasplaced with stone removal -Continue Zosyn with recent stent placement -Discussed the case with Dr. Sotelo and current plan is for watchful waiting andhope she does not ERCP at this time Leukocytosis -Resolved Chronic anemia -Hemoglobin appears to be stable in the 10-11 range -Stable compared to previous admission -Repeat CBC in the a.m. Hyperglycemia -Suspect reactive -A1c is 5.5 -Discontinue coverage Hypertension -Patient typically is fairly hypertensive however blood pressures today are on the low side -Hold antihypertensives today -Hold home losartan -Hold home amlodipine -As needed hydralazine for systolic pressure greater than 150 Hepatomegaly -Suspect nonalcoholic fatty liver disease -Recommend weight loss -Outpatient GI follow-up Anxiety/depression -Continue home fluoxetine Obesity -BMI 35.6 -Recommend weight loss -Complicates treatment, prognosis, outcomes DVT prophylaxis -Lovenox subcu daily CODE STATUS -Full code Charges/Coding Visit Charges Inpatient E&M: 02011 Subs Hosp L2 09/28/24 1606 Cosigner Signature (if applicable): CC: ~ Signed [facility]04-10-2025 Progress note Author Arturo Friend [facility] Note Date/Time September 27, 2024 5:4 0pm [facility] Medical Records Department [address] [place] [address] Progress Note 09/27/24 1738 MR#: [id number] Acct: [id number] Name: CASIMIRO LIU Rep #:[id number] : 1980 44 From: Arturo Sotelo DO PCP: Dr. Mary Escobar MD Status:ADM IN Location: [place] [address] Progress Note Patient says she is feeling a lot better today. She feels like her pain is under control and she would like to try to eat something. Physical Exam Const alert, oriented x3, no apparent distress and well nourished; Negative for average body habitus or healthy appearing Constitutional Narrative: Obese, middle-aged, white female, lying in bed appears comfortable at this time,nontoxic General Appearance: cooperative HEENT normocephalic and head/scalp atraumatic Resp normal respiratory effort, no retractions, no use of accessory muscles and clearto auscultation bilaterally Auscultation: Negative for rales, rhonchi or wheezes Cardio regular rate, regular rhythm, S1 normal heart sound, S2 normal heart sound, no murmurs, no rub, no gallops and no clicks GI normal to inspection, nondistended, normoactive bowel sounds and soft to palpation; Negative for non-tender GI Narrative: Very minimal left upper quadrant pain with palpation today Extremity no clubbing, cyanosis or edema Extremity Narrative: Pedal and radial pulses are 2+ Neuro oriented x3, moves all extremities and no focal motor deficits Speech: speech normal Psych affect normal Psych Narrative: Very pleasant, interacts appropriately Assessment & Plan Assessment/Plan (1) Acute pancreatitis: (2) Hypertension: (3) Leukocytosis: PLAN: Plan 43-year-old with history of cholecystitis status post cholecystectomy with history of acute recurrent pancreatitis. She has no history of hypertriglyceridemia, cystic fibrosis, IgG associated disease, multiple endocrine neoplasia, celiac disease, vasculitis. However MRCP did not show any signs of pancreatic divisum.Her initial episode of pancreatitis started more than 4 years ago when she suffered from 4 episodes of acute pancreatitis and went on to have a cholecystectomy. She underwent ERCP. she had sphincterotomy with stone removal and stent placement. She has never been on pancreatic enzymes and she has never had an endoscopic ultrasound.The pancreatic parenchyma was normal in signal and appearance without mass or?pancreatic duct?dilatation on these tests. Her symptoms have increased in severity over the past year. She has no signs and symptoms of chronic pancreatitis. Recurrent acute pancreatitis is defined as more than 2 episodes of a sudden inflammation of the pancreas. Clinical symptoms usually start with?epigastric pain?that sometimes spreads to the back and is associated with nausea, vomiting, and fever. Most cases of acute pancreatitis result from?biliary stone disease?and longstanding alcohol consumption. Workup including: KENZIE comprehensive, workup for cystic fibrosis, celiac disease,IgG4 associated, vasculitis, HIV, repeat triglycerides, inflammatory bowel disease, hereditary pancreatitis: Three-gene Profile (PRSS1, SPINK1, CFTR), Phosphatidylethanol (PEth)-lab a bit but she has any excessive alcohol with thelast 3 months. Recommended continue supportive care and await blood test. She will likely needendoscopic ultrasound to definitively look for any signs of chronic pancreatitisand possibly need pancreatic biopsy. 09/27/2024-I will advance her diet as tolerated. I told her that is going to take a long time for her autoimmune workup and hereditary pancreatitis workup tocome back. If she is tolerating a diet and her pain is under control then she should be able to go home. Visit Charges Inpatient E&M: 81183 Subs Hosp L3 09/27/24 1740 <Electronically signed by Arturo Sotelo DO> Arturo Sotelo DO Cosigner Signature (if applicable): CC: ~ Signed [facility] Work Phone: 1(491) 479-327604-10-2025 Consult note Author Arturo Sotelo [facility] Note Date/Time September 27, 2024 5:3 0pm [facility] Medical Records Department [address] [place] [address] Consultation - GI 09/26/242008 MR#: [id number] Acct: [id number] Name: CASIMIRO LIU Rep #:[id number] : 1980 44 From: Arturo Sotelo DO PCP: Dr. Mary Escobar MD Status:ADM IN [facility] H[facility] Consult Data Date of Consult: 09/26/24 HPI Narrative Reason for Consultation: Pancreatitis and abdominal pain HPI Narrative: CASIMIRO LIU, is a 44 F who presented to [facility] ED on 09/12/2024 with abdominal pain. Hospital course as noted below. Patient discharged home in stable condition on 09/19. She came back to the hospital on 09/25/2024 with worsening abdominal pain and again an increased lipase at 249. Initially when she presented to the hospital back on 09/12/[address] abdomen pelvis on admit with findings concerning for pancreatitis. Lipase 1599. Initially there was no clear cause for pancreatitis. She admitted to minimal alcohol use, triglyceride level normal and LFTs fairly unremarkable. Attempted to advance diet to full liquids on 09/16 but patient reported significantly more pain. Repeat CT abdomen pelvis redemonstrated acute/uncomplicated pancreatitis. Lipase level was rechecked and did normalize on 09/16. MRCP on 09/17 showed smallbut abnormal amount of fluid around the pancreas; otherwise showed absent gallbladder and no evidence of choledocholithiasis. I was consulted due to the appearance of his stricture at the distal common bileduct. 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 Patient did well post ERCP, was stable for discharge home on 09/19. I ordered so ordered a notably did have extensive lab workup sent to rule out additional causes of pancreatitis, except for hereditary pancreatitis and PHOSPHATIDYLETHANOL (with the parameters that PEth levels in excess of 20 ng/mL are considered evidence of moderate to heavy ethanol consumption.) [facility] Medical History Hypertension Pancreatitis Hypertension Anxiety Home Medications ?Medication ?Instructions ?Recorded ?Last Taken ?Type fluoxetine 40 mg capsule 40 mg PO DAILY mental health 09/12/24 Unknown History ipratropium bromide 42 mcg (0.06 1 spray intranasal TI D PRN PRN 09/12/24 Unknown History %) nasal spray allergy symptoms amlodipine 10 mg tablet 10 mg PO DAILY 30 days #30 t abs 09/19/24 Unknown Rx losartan 100 mg tablet 100 mg PO DAILY 30 days #30 tabs 09/19/24 Unknown Rx oxycodone 5 mg tablet 5 mg PO Q6H PRN pain 3 days #12 09/19/24 Unknown Rx tabs doxycycline hyclate 100 mg tablet 100 mg PO BID Unknown History prochlorperazine maleate 5 mg 5 mg PO BID 09/25/24 Unk nown History tablet (Compazine) Allergy/AdvReac Type Severity Reaction Status Date / Time No Known Allergies Allergy Verified 09/25/24 04:08 Family History Other Hypertension Surgical History S/P ERCP Hx of cholecystectomy Social History Smoking Status: Former smoker alcohol intake: current alcohol intake frequency: 0-2 drinks per day substance use type: does not use ROS Constitutional Constitutional: Denies anorexia, change in weight, chills, fatigue, fever(s), malaise, night sweats, weakness or other Eyes Eyes: Denies blurry vision, change in eye color, change in vision, discharge from eye(s), double vision, erythema, eye pain, loss of vision or other ENT HEENT: Denies abnormal hearing, dysphagia, ear pain, epistaxis, headache(s), hearing loss, nasal congestion, nasal discharge, post nasal drip, sinus pressure, sore throat or other Cardiovascular Cardiovascular: Denies chest pain, claudication, dyspnea on exertion, edema, lightheadedness, orthopnea, palpitations, paroxysmal nocturnal dyspnea, rapid heart rate, syncope or other Respiratory/Chest Respiratory/Chest: Denies cough, dyspnea, excessive phlegm production, hemoptysis, productive cough, shortness of breath at rest, shortness of breath with exertion, wheezing or other Gastrointestinal Gastrointestinal: Reports abdominal pain, nausea and other Details: Decreased flatus Genitourinary Genitourinary: Denies burning urination, difficulty urinating, dysuria, hematuria, nocturia, urinary frequency, urinary hesitancy, urinary incontinence,urinary urgency or other Musculoskeletal Musculoskeletal: Reports back pain; Denies arthralgias, joint pain, joint stiffness, joint swelling, myalgias, neck pain or other Neurologic Neurologic: Denies abnormal gait, abnormal speech, confusion, disequilibrium, dizziness, focal weakness, headache(s), numbness, paresthesias, seizure-like activity, seizures, syncope, tingling, tremor(s) or other Psychiatric Psychiatric: Reports depression; Denies anxiety, homicidal ideation, suicidal ideation or other Endocrine Endocrinology: Denies change in body appearance, cold intolerance, excessive sweating, heat intolerance, polydipsia, polyuria or other Hematologic/Lymphatic Hematologic/Lymphatic: Denies anemia, easy bleeding, easy bruising, lymphadenopathy or other Allergic/Immunologic Allergic/Immunologic: Denies rhinitis, hives, eczemia, asthma or other Physical Exam Const alert, oriented x3, no apparent distress and well nourished; Negative for average body habitus or healthy appearing Constitutional Narrative: Obese, middle-aged, white female, lying in bed appears comfortable at this time,nontoxic General Appearance: cooperative HEENT normocephalic, head/scalp atraumatic, hearing grossly normal bilaterally and moist oral mucous membranes HEENT Narrative: Mallampati 3, no thrush Resp normal respiratory effort, no retractions, no use of accessory muscles and clearto auscultation bilaterally Auscultation: Negative for rales, rhonchi or wheezes Cardio regular rate, regular rhythm, S1 normal heart sound, S2 normal heart sound, no murmurs, no rub, no gallops and no clicks GI normal to inspection, nondistended, normoactive bowel sounds and soft to palpation; Negative for non-tender GI Narrative: Mild amount of tenderness in the epigastrium and left upper quadrant however appears to be better since yesterday Extremity no clubbing, cyanosis or edema Extremity Narrative: Pedal and radial pulses are 2+ Neuro oriented x3, moves all extremities and no focal motor deficits Speech: speech normal Psych affect normal Psych Narrative: Very pleasant, interacts appropriately Lab / Micro Data 09/26/24 05:18 09/26/24 05:18 Labs: Laboratory Results - last 24 hr 09/26/24 00:23: POC Glucose 117 H 09/26/24 05:18: WBC 22.6 H, RBC 4.06 L, Hgb 10.7 L, Hct 34.5 L, MCV 85.0, MCH 26.4 L, MCHC 31.0 L, RDW Std Deviation 44.1 H, RDW Coeff of Chelsie 14.2, Plt Count 349, MPV 9.9, Immature Gran % (Auto) 0.800, Neut % (Auto) 82.9 H, Lymph % (Auto)8.8 L, Tarrant % (Auto) 6.5, Eos % (Auto) 0.8, Baso % (Auto) 0.2, Absolute Neuts (auto) 18.7 H, Absolute Lymphs (auto) 1.98, Nucleated RBC % 0, Sodium 131 L, Potassium 4.5, Chloride 97 L, Carbon Dioxide 24.8, Anion Gap 9, BUN 9, Creatinine 0.67 L, Estim Creat Clear Calc 119.32, Est GFR (MDRD) Non-Af 111, BUN/Creatinine Ratio 13.9, Glucose 130 H, Hemoglobin A1c 5.5 L, Calcium 10.0, Phosphorus 3.4, Magnesium 1.9, Total Bilirubin 0.60, AST 18, ALT 17, Alkaline Phosphatase 101, Total Protein 6.4, Albumin 3.3 L, Globulin 3.1, Albumin/Globulin Ratio 1.1 09/26/24 06:35: POC Glucose 126 H 09/26/24 07:38: POC Glucose 115 H 09/26/24 11:11: POC Glucose 110 H 09/26/24 17:15: POC Glucose 107 H Assessment & Plan Assessment/Plan (1) Acute pancreatitis: (2) Hypertension: (3) Leukocytosis: PLAN: Plan 43-year-old with history of cholecystitis status post cholecystectomy with history of acute recurrent pancreatitis. She has no history of hypertriglyceridemia, cystic fibrosis, IgG associated disease, multiple endocrine neoplasia, celiac disease, vasculitis. However MRCP did not show any signs of pancreatic divisum.Her initial episode of pancreatitis started more than 4 years ago when she suffered from 4 episodes of acute pancreatitis and went on to have a cholecystectomy. She underwent ERCP. she had sphincterotomy with stone removal and stent placement. She has never been on pancreatic enzymes and she has never had an endoscopic ultrasound.The pancreatic parenchyma was normal in signal and appearance without mass or?pancreatic duct?dilatation on these tests. Her symptoms have increased in severity over the past year. She has no signs and symptoms of chronic pancreatitis. Recurrent acute pancreatitis is defined as more than 2 episodes of a sudden inflammation of the pancreas. Clinical symptoms usually start with?epigastric pain?that sometimes spreads to the back and is associated with nausea, vomiting,and fever. Most cases of acute pancreatitis result from?biliary stone disease?and longstanding alcohol consumption. Workup including: KENZIE comprehensive, workup for cystic fibrosis, celiac disease,IgG4 associated, vasculitis, HIV, repeat triglycerides, inflammatory bowel disease, hereditary pancreatitis: Three-gene Profile (PRSS1, SPINK1, CFTR), Phosphatidylethanol (PEth)-lab a bit but she has any excessive alcohol with thelast 3 months. Recommended continue supportive care and await blood test. She will likely needendoscopic ultrasound to definitively look for any signs of chronic pancreatitisand possibly need pancreatic biopsy. Charges/Coding Visit Charges Inpatient E&M: 89335 Init Hosp L3 09/27/24 1730 <Electronically signed by Arturo Sotelo DO> Cosigner Signature (if applicable): CC: Dr. Mary Escobar MD~ Signed [facility] Work Phone: 1(949) 179-232904-10-2025 Progress note [facility] Medical Records Department [address] [place] [address] Progress Note 09/27/24 1738 MR#: [id number] Acct: [id number] Name: CASIMIRO LIU Rep #:[id number] : 1980 44 From: Arturo Sotelo DO PCP: Dr. Mary Escobar MD Status:ADM IN Location: MS3 [id number] Progress Note Patient says she is feeling a lot better today. She feels like her pain is under control and she would like to try to eat something. Physical Exam Const alert, oriented x3, no apparent distress and well nourished; Negative for average body habitus or healthy appearing Constitutional Narrative: Obese, middle-aged, white female, lying in bed appears comfortable at this time,nontoxic General Appearance: cooperative HEENT normocephalic and head/scalp atraumatic Resp normal respiratory effort, no retractions, no use of accessory muscles and clearto auscultation bilaterally Auscultation: Negative for rales, rhonchi or wheezes Cardio regular rate, regular rhythm, S1 normal heart sound, S2 normal heart sound, no murmurs, no rub, no gallops and no clicks GI normal to inspection, nondistended, normoactive bowel sounds and soft to palpation; Negative for non-tender GI Narrative: Very minimal left upper quadrant pain with palpation today Extremity no clubbing, cyanosis or edema Extremity Narrative: Pedal and radial pulses are 2+ Neuro oriented x3, moves all extremities and no focal motor deficits Speech: speech normal Psych affect normal Psych Narrative: Very pleasant, interacts appropriately Assessment & Plan Assessment/Plan (1) Acute pancreatitis: (2) Hypertension: (3) Leukocytosis: PLAN: Plan 43-year-old with history of cholecystitis status post cholecystectomy with history of acute recurrent pancreatitis. She has no history of hypertriglyceridemia, cystic fibrosis, IgG associated disease, multiple endocrine neoplasia, celiac disease, vasculitis. However MRCP did not show any signs of pancreatic divisum.Her initial episode of pancreatitis started more than 4 years ago when she suffered from 4 episodes of acute pancreatitis and went on to have a cholecystectomy. She underwent ERCP. she had sphincterotomy with stone removal and stent placement. She has never been on pancreatic enzymes and she has never had an endoscopic ultrasound.The pancreatic parenchyma was normal in signal and appearance without mass or?pancreatic duct?dilatation on these tests. Her symp toms have increased in severity over the past year. She has no signs and symptoms of chronic pancreatitis. Recurrent acute pancreatitis is defined as more than 2 episodes of a sudden inflammation of the pancreas. Clinical symptoms usually start with?epigastric pain?that sometimes spreads to the back and is associated with nausea, vomiting, and fever. Most cases of acute pancreatitis result from?biliary stone disease?and longstanding alcohol consumption. Workup including: KENZIE comprehensive, workup for cystic fibrosis, celiac disease,IgG4 associated, vasculitis, HIV, repeat triglycerides, inflammatory bowel disease, hereditary pancreatitis: Three-geneProfile (PRSS1, SPINK1, CFTR), Phosphatidylethanol (PEth)-lab a bit but she has any excessive alcohol with thelast 3 months. Recommended continue supportive care and await blood test. She will likely needendoscopic ultrasound to definitively look for any signs of chronic pancreatitisand possibly need pancreatic biopsy. 09/27/2024-I will advance her diet as tolerated. I told her that is going to take a long time for her autoimmune workup and hereditary pancreatitis workup tocome back. If she is tolerating a diet and her pain is under control then she should be able to go home. Visit Charges Inpatient E&M: 54995 Subs Hosp L3 09/27/24 1740 Arturo Sotelo DO Cosigner Signature (if applicable): CC: ~ Signed [facility]04-10-2025 Consult note [facility] Medical Records Department [address] [place] [address] Consultation - GI 09/26/242008 MR#: [id number] Acct: [id number] Name: CASIMIRO LIU Rep #:[id number] : 1980 44 From: Arturo Sotelo DO PCP: Dr. Mary Escobar MD Status:ADM IN Location: [address] HPI Consult Data Date of Consult: 09/26/24 HPI Narrative Reason for Consultation: Pancreatitis and abdominal pain HPI Narrative: CASIMIRO LIU, is a 44 F who presented to [facility] ED on 09/12/2024 with abdominal pain. Hospital course as noted below. Patient discharged home in stable condition on 09/19. She came back to the hospital on 09/25/2024 with worsening abdominal pain and again an increased lipase at 249. Initially when she presented to the hospital back on 09/12/[address] abdomen pelvis on admitwith findings concerning for pancreatitis. Lipase 1599. Initially there was no clear cause for pancreatitis. She admitted to minimal alcohol use, triglyceride level normal and LFTs fairly unremarkable. Attempted to advance diet to full liquids on 09/16 but patient reported significantly more pain. Repeat CT abdomen pelvis redemonstrated acute/uncomplicated pancreatitis. Lipase level was rechecked and did normalize on 09/16. MRCP on 09/17 showed smallbut abnormal amount of fluid around the pancreas; otherwise showed absent gallbladder and no evidence of choledocholithiasis. I was consulted due to the appearance of his stricture at the distal common bileduct. She underwentERCP and was noted to have a duodenal diverticulum along with however, choledocholithiasis and biliary stricture thought to be secondaryto possible chronic pancreatitis with dilated main bile duct and common bile duct; the choledocholithiasis was complete removal was accomplished by biliary sphincterotomy and balloon extraction and 1 temporary stent was placed in the common bile duct. Patient didwell post ERCP, was stable for discharge home on 09/19. I ordered so ordered a notably did have extensive lab workup sent to rule out additional causes of pancreatitis, except for hereditary pancreatiti s and PHOSPHATIDYLETHANOL (with the parameters that PEth levels in excess of 20 ng/mL are considered evidence of moderate to heavy ethanol consumption.) [facility] Medical History Hypertension Pancreatitis Hypertension Anxiety Home Medications ?Medication ?Instructions ?Recorded ?Last Taken ?Type fluoxetine 40 mg capsule 40 mg PO DAILY mental health 09/12/24 Unknown History ipratropium bromide 42 mcg (0.06 1 spray intranasal TI D PRN PRN 09/12/24 Unknown History %) nasal spray allergy symptoms amlodipine 10 mg tablet 10 mg PO DAILY 30 days #30 t abs 09/19/24 Unknown Rx losartan 100 mg tablet 100 mg PO DAILY 30 days #30 tabs 09/19/24 Unknown Rx oxycodone 5 mg tablet 5 mg PO Q6H PRN pain 3 days #12 09/19/24 Unknown Rx tabs doxycycline hyclate 100 mg tablet 100 mg PO BID Unknown History prochlorperazine maleate 5 mg 5 mg PO BID 09/25/24 Unk nown History tablet (Compazine) Allergy/AdvReac Type Severity Reaction Status Date / Time No Known Allergies Allergy Verified 09/25/24 04:08 Family History Other Hypertension Surgical History S/P ERCP Hx of cholecystectomy Social History Smoking Status: Former smoker alcohol intake: current alcohol intake frequency: 0-2 drinks per day substance use type: does not use ROS Constitutional Constitutional: Denies anorexia, change in weight, chills, fatigue, fever(s), malaise, night sweats, weakness or other Eyes Eyes: Denies blurry vision, change in eye color, change in vision, discharge from eye(s), double vision, erythema, eye pain, loss of vision or other ENT HEENT: Denies abnormal hearing, dysphagia, ear pain, epistaxis, headache(s), hearing loss, nasal congestion, nasal discharge, post nasal drip, sinus pressure, sore throat or other Cardiovascular Cardiovascular: Denies chest pain, claudication, dyspnea on exertion, edema, lightheadedness, orthopnea, palpitations, paroxysmal nocturnal dyspnea, rapid heart rate, syncope or other Respiratory/Chest Respiratory/Chest: Denies cough, dyspnea, excessive phlegm production, hemoptysis, productive cough, shortness of breath at rest, shortness of breath with exertion, wheezing or other Gastrointestinal Gastrointestinal: Reports abdominal pain, nausea and other Details: Decreased flatus Genitourinary Genitourinary: Denies burning urination, difficulty urinating, dysuria, hematuria, nocturia, urinary frequency, urinary hesitancy, urinary incontinence,urinary urgency or other Musculoskeletal Musculoskeletal: Reports back pain; Denies arthralgias, joint pain, joint stiffness, joint swelling, myalgias, neck pain or other Neurologic Neurologic: Denies abnormal gait, abnormal speech, confusion, disequilibrium, dizziness, focal weakness, headache(s), numbness, paresthesias, seizure-like activity, seizures, syncope, tingling, tremor(s) or other Psychiatric Psychiatric: Reports depression; Denies anxiety, homicidal ideation, suicidal ideation or other Endocrine Endocrinology: Denies change in body appearance, cold intolerance, excessive sweating, heat intolerance, polydipsia, polyuria or other Hematologic/Lymphatic Hematologic/Lymphatic: Denies anemia, easy bleeding, easy bruising, lymphadenopathy or other Allergic/Immunologic Allergic/Immunologic: Denies rhinitis, hives, eczemia, asthma or other Physical Exam Const alert, oriented x3, no apparent distress and well nourished; Negative for average body habitus or healthy appearing Constitutional Narrative: Obese, middle-aged, white female, lying in bed appears comfortable at this time,nontoxic General Appearance: cooperative HEENT normocephalic, head/scalp atraumatic, hearing grossly normal bilaterally and moist oral mucous membranes HEENT Narrative: Mallampati 3, no thrush Resp normal respiratory effort, no retractions, no use of accessory muscles and clearto auscultation bilaterally Auscultation: Negative for rales, rhonchi or wheezes Cardio regular rate, regular rhythm, S1 normal heart sound, S2 normal heart sound, no murmurs, no rub, no gallops and no clicks GI normal to inspection, nondistended, normoactive bowel sounds and soft to palpation; Negative for non-tender GI Narrative: Mild amount of tenderness in the epigastrium and left upper quadrant however appears to be better since yesterday Extremity no clubbing, cyanosis or edema Extremity Narrative: Pedal and radial pulses are 2+ Neuro oriented x3, moves all extremities and no focal motor deficits Speech: speech normal Psych affect normal Psych Narrative: Very pleasant, interacts appropriately Lab / Micro Data 09/26/24 05:18 09/26/24 05:18 Labs: Laboratory Results - last 24 hr 09/26/24 00:23: POC Glucose 117 H 09/26/24 05:18: WBC 22.6 H, RBC 4.06 L, Hgb 10.7 L, Hct 34.5 L, MCV 85.0, MCH 26.4 L, MCHC 31.0 L, RDW Std Deviation 44.1 H, RDW Coeff of Chelsie 14.2, Plt Count 349, MPV 9.9, Immature Gran % (Auto) 0.800, Neut % (Auto) 82.9 H, Lymph % (Auto)8.8 L, T[place] % (Auto) 6.5, Eos % (Auto) 0.8, Baso % (Auto) 0.2, Absolute Neuts (auto) 18.7 H, Absolute Lymphs (auto) 1.98, Nucleated RBC % 0, Sodium 131 L, Potassium 4.5, Chloride 97 L, Carbon Dioxide 24.8, Anion Gap 9, BUN 9, Creatinine 0.67 L, Estim Creat Clear Calc 119.32, Est GFR (MDRD) Non-Af 111, BUN/Creatinine Ratio 13.9, Glucose 130 H, Hemoglobin A1c 5.5 L, Calcium 10.0, Phosphorus 3.4, Magnesium 1.9, Total Bilirubin 0.60, AST 18, ALT 17, Alkaline Phosphatase 101, Total Protein 6.4, Albumin 3.3 L, Globulin 3.1, Albumin/Globulin Ratio 1.1 09/26/24 06:35: POC Glucose 126 H 09/26/24 07:38: POC Glucose 115 H 09/26/24 11:11: POC Glucose 110 H 09/26/24 17:15: POC Glucose 107 H Assessment & Plan Assessment/Plan (1) Acute pancreatitis: (2) Hypertension: (3) Leukocytosis: PLAN: Plan 43-year-old with history of cholecystitis status post cholecystectomy with history of acute recurrent pancreatitis. She has no history of hypertriglyceridemia, cystic fibrosis, IgG associated disease, multiple endocrine neoplasia, celiac disease, vasculitis. However MRCP did not show any signs of pancreatic divisum.Her initial episode of pancreatitis started more than 4 years ago when she suffered from 4 episodes of acute pancreatitis and went on to have a cholecystectomy. She underwent ERCP. she had sphincterotomy with stone removal and stent placement. She has never been on pancreatic enzymes and she has never had an endoscopic ultrasound.The pancreatic parenchyma was normal in signal and appearance without mass or?pancreatic duct?dilatation on these tests. Her symp toms have increased in severity over the past year. She has no signs and symptoms of chronic pancreatitis. Recurrent acute pancreatitis is defined as more than 2 episodes of a sudden inflammation of the pancreas. Clinical symptoms usually start with?epigastric pain?that sometimes spreads to the back and is associated with nausea, vomiting,and fever. Most cases of acute pancreatitis result from?biliary stone disease?and longstanding alcohol consumption. Workup including: [facility] comprehensive, workup for cystic fibrosis, celiac disease,IgG4 associated, vasculitis, HIV, repeat triglycerides, inflammatory bowel disease, hereditary pancreatitis: Three-geneProfile (PRSS1, SPINK1, CFTR), Phosphatidylethanol (PEth)-lab a bit but she has any excessive alcohol with thelast 3 months. Recommended continue supportive care and await blood test. She will likely needendoscopic ultrasound to definitively look for any signs of chronic pancreatitisand possibly need pancreatic biopsy. Charges/Coding Visit Charges Inpatient E&M: 86856 Init Hosp L3 09/27/24 1730 Cosigner Signature (if applicable): CC: Dr. Mary Escobar MD~ Signed [facility]04-10-2025 Progress note Author Charlotte Gibbs [facility] Note Date/Time September 27, 2024 1:4 2pm [facility] Medical Records Department [address] [place] [address] Progress Note - Hospitalist 09/27/24 1333 MR#: [id number] Acct: [id number] Name: CASIMIRO LIU Rep #:[id number] : 1980 44 From: Charlotte Gibbs DO PCP: Dr. Mary Escobar MD Status:ADM IN Location: [place] [address]-1 Reason for Visit Reason for Visit: Abdominal pain Subjective Subjective Patient states overall she is feeling slowly better. Still having abdominal pain and still requiring some pain meds however was able to sleep through some of her as needed pain meds through the night Objective Data Objective Data Vital Signs: Vital Signs Temp Pulse Resp BP Pulse Ox O2 Del Method 98.0 F 75 16 106/67 96 Room Air 09/27/24 12:56 09/27/24 12:56 09/27/24 12:56 09/27/24 12:56 09/27/24 12:56 09/27/24 12:56 Oxygen Delivery Method Room Air Weight: 94.1 kg Body Mass Index (BMI) 35.4 Intake & Output: Intake and Output for Last 24 Hours 09/25/24 09/26/24 09/27/24 23:59 23:59 23:59 Intake Total 3130 / 3130 2110 / 2160 150 / 150 Output Total 800 / 800 Balance 3130 / 3130 1310 / 1360 150 / 150 Lab / Micro Data 09/27/24 05:11 09/27/24 05:11 Labs: Laboratory Results - last 24 hr 09/26/24 17:15: POC Glucose 107 H 09/27/24 00:18: POC Glucose 95 09/27/24 05:11: WBC 14.3 H, RBC 3.85 L, Hgb 10.2 L, Hct 33.0 L, MCV 85.7, MCH 26.5 L, MCHC 30.9 L, RDW Std Deviation 44.2 H, RDW Coeff of Chelsie 14.0, Plt Count 320, MPV 10.3, Immature Gran % (Auto) 0.600, Neut % (Auto) 70.8 H, Lymph % (Auto) 17.8 L, Tarrant % (Auto) 7.1, Eos % (Auto) 3.4, Baso % (Auto) 0.3, Absolute Neuts (auto) 10.1 H, Absolute Lymphs (auto) 2.54, Nucleated RBC % 0, Sodium 134,Potassium 4.3, Chloride 96 L, Carbon Dioxide 25.0, Anion Gap 13, BUN 14, Creatinine 0.70, Estim Creat Clear Calc 114.08, Est GFR (MDRD) Non-Af 109, BUN/Creatinine Ratio 19.5, Glucose 91, Calcium 10.4, Miscellaneous Test Cancelled 09/27/24 05:11: Miscellaneous Test Cancelled 09/27/24 06:26: POC Glucose 92 09/27/24 11:17: POC Glucose 85 Physical Exam Const alert, oriented x3, no apparent distress and well nourished; Negative for average body habitus or healthy appearing Constitutional Narrative: Obese, middle-aged, white female, lying in bed appears comfortable at this time,nontoxic General Appearance: cooperative HEENT normocephalic and head/scalp atraumatic Resp normal respiratory effort, no retractions, no use of accessory muscles and clearto auscultation bilaterally Auscultation: Negative for rales, rhonchi or wheezes Cardio regular rate, regular rhythm, S1 normal heart sound, S2 normal heart sound, no murmurs, no rub, no gallops and no clicks GI normal to inspection, nondistended, normoactive bowel sounds and soft to palpation; Negative for non-tender GI Narrative: Very minimal left upper quadrant pain with palpation today Extremity no clubbing, cyanosis or edema Extremity Narrative: Pedal and radial pulses are 2+ Neuro oriented x3, moves all extremities and no focal motor deficits Speech: speech normal Psych affect normal Psych Narrative: Very pleasant, interacts appropriately Assessment & Plan Assessment/Plan (1) Pancreatitis: (2) Leukocytosis: (3) Intractable pain: PLAN: Plan Recurrent acute pancreatitis -Continue n.p.o. with sips and chips sparingly--> seems to be slowly improving -Continue as needed pain medication both IV and p.o. -Decrease IV fluids to 75 cc/h as patient tends to get volume overloaded fairly easily home -Continue antiemetics as needed -Choledocholithiasis was found at her last hospitalization and biliary stent wasplaced with stone removal -Continue Zosyn with recent stent placement -Discussed the case with Dr. Sotelo as his note stated that she would need ERCP and pt wasnt clear on plan--> plan is to wait another 24 hrs since she seems to be improving and reevaluated need for ERCP tomorrow Leukocytosis -Trending down and almost normalized -No signs of infection -Will trend with repeat CBC in a.m. Chronic anemia -Hemoglobin appears to be stable in the 10-11 range -Stable compared to previous admission -Repeat CBC in the a.m. Mild hyponatremia -Resolved Hyperglycemia -Suspect reactive -A1c is 5.5 Hypertension -Patient typically is fairly hypertensive however blood pressures today are on the low side -Hold antihypertensives today -Hold home losartan -Hold home amlodipine -As needed hydralazine for systolic pressure greater than 150 Hepatomegaly -Suspect nonalcoholic fatty liver disease -Recommend weight loss -Outpatient GI follow-up Anxiety/depression -Continue home fluoxetine Obesity -BMI 35.6 -Recommend weight loss -Complicates treatment, prognosis, outcomes DVT prophylaxis -Lovenox subcu daily CODE STATUS -Full code Charges/Coding Visit Charges Inpatient E&M: 01837 Subs Hosp L2 09/27/24 1342 <Electronically signed by Charlotte Gibbs DO> Cosigner Signature (if applicable): CC: ~ Signed [facility] Work Phone: 1(851) 803-465104-10-2025 Progress note Author Charlotte Gibbs [facility] Note Date/Time September 27, 2024 1:3 3pm [facility] Medical Records Department [address] [place] [address] Progress Note - Hospitalist 09/26/24 0706 MR#: [id number] Acct: [id number] Name: CASIMIRO LIU Rep #:[id number] : 1980 44 From: Charlotte Gibbs DO PCP: Dr. Mary Escobar MD Status:ADM IN Location: [facility] KQ040-3 Reason for Visit Reason for Visit: Abdominal pain Subjective Subjective Patient reports that she is feeling a little bit better today. Still having pain but seems to be less intense. Still requiring pain medicine for pain management. Pain seems to be less intense. Still awaiting GI input. We did discuss that some of her autoimmune studies were negative. Objective Data Objective Data Vital Signs: Vital Signs Temp Pulse Resp BP Pulse Ox O2 Del Method 98.6 F 90 16 144/83 H 96 Room Air 09/26/24 02:12 09/26/24 02:12 09/26/24 02:12 09/26/24 02:12 09/26/24 02:12 09/26/24 02:12 Oxygen Delivery Method Room Air Weight: 94.3 kg Body Mass Index (BMI) 35.4 Intake & Output: Intake and Output for Last 24 Hours 09/24/24 09/25/24 09/26/24 23:59 23:59 23:59 Intake Total 3130 / 3130 1010 / 1010 Balance 3130 / 3130 1010 / 1010 Lab / Micro Data 09/26/24 05:18 09/26/24 05:18 Labs: Laboratory Results - last 24 hr 09/25/24 12:20: POC Glucose 136 H 09/25/24 17:18: POC Glucose 135 H 09/26/24 00:23: POC Glucose 117 H 09/26/24 05:18: WBC 22.6 H, RBC 4.06 L, Hgb 10.7 L, Hct 34.5 L, MCV 85.0, MCH 26.4 L, MCHC 31.0 L, RDW Std Deviation 44.1 H, RDW Coeff of Chelsie 14.2, Plt Count 349, MPV 9.9, Immature Gran % (Auto) 0.800, Neut % (Auto) 82.9 H, Lymph % (Auto)8.8 L, [place] % (Auto) 6.5, Eos % (Auto) 0.8, Baso % (Auto) 0.2, Absolute Neuts (auto) 18.7 H, Absolute Lymphs (auto) 1.98, Nucleated RBC % 0, Sodium 131 L, Potassium 4.5, Chloride 97 L, Carbon Dioxide 24.8, Anion Gap 9, BUN 9, Creatinine 0.67 L, Estim Creat Clear Calc 119.32, Est GFR (MDRD) Non-Af 111, BUN/Creatinine Ratio 13.9, Glucose 130 H, Hemoglobin A1c 5.5 L, Calcium 10.0, Phosphorus 3.4, Magnesium 1.9, Total Bilirubin 0.60, AST 18, ALT 17, Alkaline Phosphatase 101, Total Protein 6.4, Albumin 3.3 L, Globulin 3.1, Albumin/Globulin Ratio 1.1 Physical Exam Const alert, oriented x3, no apparent distress and well nourished; Negative for average body habitus or healthy appearing Constitutional Narrative: Obese, middle-aged, white female, lying in bed appears comfortable at this time,nontoxic General Appearance: cooperative HEENT normocephalic, head/scalp atraumatic, hearing grossly normal bilaterally and moist oral mucous membranes HEENT Narrative: Mallampati 3, no thrush Resp normal respiratory effort, no retractions, no use of accessory muscles and clearto auscultation bilaterally Auscultation: Negative for rales, rhonchi or wheezes Cardio regular rate, regular rhythm, S1 normal heart sound, S2 normal heart sound, no murmurs, no rub, no gallops and no clicks GI normal to inspection, nondistended, normoactive bowel sounds and soft to palpation; Negative for non-tender GI Narrative: Mild amount of tenderness in the epigastrium and left upper quadrant however appears to be better since yesterday Extremity no clubbing, cyanosis or edema Extremity Narrative: Pedal and radial pulses are 2+ Neuro oriented x3, moves all extremities and no focal motor deficits Speech: speech normal Psych affect normal Psych Narrative: Very pleasant, interacts appropriately Assessment & Plan Assessment/Plan (1) Pancreatitis: (2) Leukocytosis: (3) Intractable pain: PLAN: Plan Recurrent acute pancreatitis -Continue n.p.o. with sips and chips sparingly -Continue as needed pain medication both IV and p.o. -Continue aggressive IV fluids with 200 cc an hour of normal saline -Continue antiemetics as needed -Choledocholithiasis was found at her last hospitalization and biliary stent wasplaced with stone removal -Continue Zosyn with recent stent placement -GI consultation remains pending Leukocytosis -Likely reactive but with recent stent placement will place on Zosyn -Slightly better today but still elevated -No signs of infection -Will trend with repeat CBC in a.m. Chronic anemia -Appear to be hemoconcentrated yesterday however with IV fluids dropped into [id number] range -Stable compared to previous admission -Repeat CBC in the a.m. Mild hyponatremia -Etiology is uncertain. Creatinine is normal. Is not dehydrated -Will repeat lab in a.m. with continued IV fluids for pancreatitis Hyperglycemia -Suspect reactive -A1c is 5.5 Hypertension -Continue home losartan -Continue home amlodipine -As needed hydralazine for systolic pressure greater than 150 Hepatomegaly -Suspect nonalcoholic fatty liver disease -Recommend weight loss -Outpatient GI follow-up Anxiety/depression -Continue home fluoxetine Obesity -BMI 35.7 -Recommend weight loss -Complicates treatment, prognosis, outcomes DVT prophylaxis -Lovenox subcu daily CODE STATUS -Full code Charges/Coding Visit Charges Inpatient E&M: 75485 Subs Hosp L2 09/26/24 1251 <Electronically signed by Charlotte Gibbs DO> Cosigner Signature (if applicable): CC: ~ Signed ADDENDUM by Dr. Charlotte Gibbs DO on 09/27/24 at 1333 Addendum . 09/27/24 1333<Electronically signed by Charlotte Gibbs DO> Cosigner Signature (if applicable): cc: ~* Signed [facility] Work Phone: 1(146) 130-415604-10-2025 Progress note [facility] Medical Records Department [address] [place] [address] Progress Note - Hospitalist 09/27/24 1333 MR#: [id number] Acct: [id number] Name: CASIMIRO LIU Rep #:[id number] : 1980 44 From: Charlotte Gibbs DO PCP: Dr. Mary Escobar MD Status:ADM IN Location: [place] NM213-3 Reason for Visit Reason for Visit: Abdominal pain Subjective Subjective Patient states overall she is feeling slowly better. Still having abdominal pain and still requiring some pain meds however was able to sleep through some of her as needed pain meds through the night Objective Data Objective Data Vital Signs: Vital Signs Temp Pulse Resp BP Pulse Ox O2 Del Method 98.0 F 75 16 106/67 96 Room Air 09/27/24 12:56 09/27/24 12:56 09/27/24 12:56 09/27/24 12:56 09/27/24 12:56 09/27/24 12:56 Oxygen Delivery Method Room Air Weight: 94.1 kg Body Mass Index (BMI) 35.4 Intake & Output: Intake and Output for Last 24 Hours 09/25/24 09/26/24 09/27/24 23:59 23:59 23:59 Intake Total 3130 / 3130 2110 / 2160 150 / 150 Output Total 800 / 800 Balance 3130 / 3130 1310 / 1360 150 / 150 Lab / Micro Data 09/27/24 05:11 09/27/24 05:11 Labs: Laboratory Results - last 24 hr 09/26/24 17:15: POC Glucose 107 H 09/27/24 00:18: POC Glucose 95 09/27/24 05:11: WBC 14.3 H, RBC 3.85 L, Hgb 10.2 L, Hct 33.0 L, MCV 85.7, MCH 26.5 L, MCHC 30.9 L, RDW Std Deviation 44.2 H, RDW Coeff of Chelsie 14.0, Plt Count 320, MPV 10.3, Immature Gran % (Auto) 0.600, Neut % (Auto) 70.8 H, Lymph % (Auto) 17.8 L, [place] % (Auto) 7.1, Eos % (Auto) 3.4, Baso % (Auto) 0.3, Absolute Neuts (auto) 10.1 H, Absolute Lymphs (auto) 2.54, Nucleated RBC % 0, Sodium 134,Potassium 4.3, Chloride 96 L, Carbon Dioxide 25.0, Anion Gap 13, BUN 14, Creatinine 0.70, Estim Creat Clear Calc 114.08, Est GFR (MDRD) Non-Af 109, BUN/Creatinine Ratio 19.5, Glucose 91, Calcium 10.4, Miscellaneous Test Cancelled 09/27/24 05:11: Miscellaneous Test Cancelled 09/27/24 06:26: POC Glucose 92 09/27/24 11:17: POC Glucose 85 Physical Exam Const alert, oriented x3, no apparent distress and well nourished; Negative for average body habitus or healthy appearing Constitutional Narrative: Obese, middle-aged, white female, lying in bed appears comfortable at this time,nontoxic General Appearance: cooperative HEENT normocephalic and head/scalp atraumatic Resp normal respiratory effort, no retractions, no use of accessory muscles and clearto auscultation bilaterally Auscultation: Negative for rales, rhonchi or wheezes Cardio regular rate, regular rhythm, S1 normal heart sound, S2 normal heart sound, no murmurs, no rub, no gallops and no clicks GI normal to inspection, nondistended, normoactive bowel sounds and soft to palpation; Negative for non-tender GI Narrative: Very minimal left upper quadrant pain with palpation today Extremity no clubbing, cyanosis or edema Extremity Narrative: Pedal and radial pulses are 2+ Neuro oriented x3, moves all extremities and no focal motor deficits Speech: speech normal Psych affect normal Psych Narrative: Very pleasant, interacts appropriately Assessment & Plan Assessment/Plan (1) Pancreatitis: (2) Leukocytosis: (3) Intractable pain: PLAN: Plan Recurrent acute pancreatitis -Continue n.p.o. with sips and chips sparingly--> seems to be slowly improving -Continue as needed pain medication both IV and p.o. -Decrease IV fluids to 75 cc/h as patient tends to get volume overloaded fairly easily home -Continue antiemetics as needed -Choledocholithiasis was found at her last hospitalization and biliary stent wasplaced with stone removal -Continue Zosyn with recent stent placement -Discussed the case with Dr. Sotelo as his note stated that she would need ERCP and pt wasnt clear on plan--> plan is to wait another 24 hrs since she seems to be improving and reevaluated need for ERCP tomorrow Leukocytosis -Trending down and almost normalized -No signs of infection -Will trend with repeat CBC in a.m. Chronic anemia -Hemoglobin appears to be stable in the 10-11 range -Stable compared to previous admission -Repeat CBC in the a.m. Mild hyponatremia -Resolved Hyperglycemia -Suspect reactive -A1c is 5.5 Hypertension -Patient typically is fairly hypertensive however blood pressures today are on the low side -Hold antihypertensives today -Hold home losartan -Hold home amlodipine -As needed hydralazine for systolic pressure greater than 150 Hepatomegaly -Suspect nonalcoholic fatty liver disease -Recommend weight loss -Outpatient GI follow-up Anxiety/depression -Continue home fluoxetine Obesity -BMI 35.6 -Recommend weight loss -Complicates treatment, prognosis, outcomes DVT prophylaxis -Lovenox subcu daily CODE STATUS -Full code Charges/Coding Visit Charges Inpatient E&M: 34555 Subs Hosp L2 09/27/24 1342 Cosigner Signature (if applicable): CC: ~ Signed [facility]04-10-2025 Progress note [facility] Medical Records Department [address] [place] [address] Progress Note - Hospitalist 09/26/24705 MR#: [id number] Acct: [id number] Name: CASIMIRO LIU Rep #:[id number] : 1980 44 From: Charlotte Gibbs DO PCP: Dr. Mary Escobar MD Status:ADM IN Location: MS3 [id number] Reason for Visit Reason for Visit: Abdominal pain Subjective Subjective Patient reports that she is feeling a little bit better today. Still having pain but seems to be less intense. Still requiring pain medicine for pain management. Pain seems to be less intense. Still awaiting GI input. We did discuss that some of her autoimmune studies were negative. Objective Data Objective Data Vital Signs: Vital Signs Temp Pulse Resp BP Pulse Ox O2 Del Method 98.6 F 90 16 144/83 H 96 Room Air 09/26/24 02:12 09/26/24 02:12 09/26/24 02:12 09/26/24 02:12 09/26/24 02:12 09/26/24 02:12 Oxygen Delivery Method Room Air Weight: 94.3 kg Body Mass Index (BMI) 35.4 Intake & Output: Intake and Output for Last 24 Hours 09/24/24 09/25/24 09/26/24 23:59 23:59 23:59 Intake Total 3130 / 3130 1010 / 1010 Balance 3130 / 3130 1010 / 1010 Lab / Micro Data 09/26/24 05:18 09/26/24 05:18 Labs: Laboratory Results - last 24 hr 09/25/24 12:20: POC Glucose 136 H 09/25/24 17:18: POC Glucose 135 H 09/26/24 00:23: POC Glucose 117 H 09/26/24 05:18: WBC 22.6 H, RBC 4.06 L, Hgb 10.7 L, Hct 34.5 L, MCV 85.0, MCH 26.4 L, MCHC 31.0 L, RDW Std Deviation 44.1 H, RDW Coeff of Chelsie 14.2, Plt Count 349, MPV 9.9, Immature Gran % (Auto) 0.800, Neut % (Auto) 82.9 H, Lymph % (Auto)8.8 L, [place] % (Auto) 6.5, Eos % (Auto) 0.8, Baso % (Auto) 0.2, Absolute Neuts (auto) 18.7 H, Absolute Lymphs (auto) 1.98, Nucleated RBC % 0, Sodium 131 L, Potassium 4.5, Chloride 97 L, Carbon Dioxide 24.8, Anion Gap 9, BUN 9, Creatinine 0.67 L, Estim Creat Clear Calc 119.32, Est GFR (MDRD) Non-Af 111, BUN/Creatinine Ratio 13.9, Glucose 130 H, Hemoglobin A1c 5.5 L, Calcium 10.0, Phosphorus 3.4, Magnesium 1.9, Total Bilirubin 0.60, AST 18, ALT 17, Alkaline Phosphatase 101, Total Protein 6.4, Albumin 3.3 L, Globulin 3.1, Albumin/Globulin Ratio 1.1 Physical Exam Const alert, oriented x3, no apparent distress and well nourished; Negative for average body habitus or healthy appearing Constitutional Narrative: Obese, middle-aged, white female, lying in bed appears comfortable at this time,nontoxic General Appearance: cooperative HEENT normocephalic, head/scalp atraumatic, hearing grossly normal bilaterally and moist oral mucous membranes HEENT Narrative: Mallampati 3, no thrush Resp normal respiratory effort, no retractions, no use of accessory muscles and clearto auscultation bilaterally Auscultation: Negative for rales, rhonchi or wheezes Cardio regular rate, regular rhythm, S1 normal heart sound, S2 normal heart sound, no murmurs, no rub, no gallops and no clicks GI normal to inspection, nondistended, normoactive bowel sounds and soft to palpation; Negative for non-tender GI Narrative: Mild amount of tenderness in the epigastrium and left upper quadrant however appears to be better since yesterday Extremity no clubbing, cyanosis or edema Extremity Narrative: Pedal and radial pulses are 2+ Neuro oriented x3, moves all extremities and no focal motor deficits Speech: speech normal Psych affect normal Psych Narrative: Very pleasant, interacts appropriately Assessment & Plan Assessment/Plan (1) Pancreatitis: (2) Leukocytosis: (3) Intractable pain: PLAN: Plan Recurrent acute pancreatitis -Continue n.p.o. with sips and chips sparingly -Continue as needed pain medication both IV and p.o. -Continue aggressive IV fluids with 200 cc an hour of normal saline -Continue antiemetics as needed -Choledocholithiasis was found at her last hospitalization and biliary stent wasplaced with stone removal -Continue Zosyn with recent stent placement -GI consultation remains pending Leukocytosis -Likely reactive but with recent stent placement will place on Zosyn -Slightly better today but still elevated -No signs of infection -Will trend with repeat CBC in a.m. Chronic anemia -Appear to be hemoconcentrated yesterday however with IV fluids dropped into [id number] range -Stable compared to previous admission -Repeat CBC in the a.m. Mild hyponatremia -Etiology is uncertain. Creatinine is normal. Is not dehydrated -Will repeat lab in a.m. with continued IV fluids for pancreatitis Hyperglycemia -Suspect reactive -A1c is 5.5 Hypertension -Continue home losartan -Continue home amlodipine -As needed hydralazine for systolic pressure greater than 150 Hepatomegaly -Suspect nonalcoholic fatty liver disease -Recommend weight loss -Outpatient GI follow-up Anxiety/depression -Continue home fluoxetine Obesity -BMI 35.7 -Recommend weight loss -Complicates treatment, prognosis, outcomes DVT prophylaxis -Lovenox subcu daily CODE STATUS -Full code Charges/Coding Visit Charges Inpatient E&M: 03086 Subs Hosp L2 09/26/24 1251 Cosigner Signature (if applicable): CC: ~ Signed ADDENDUM by Dr. Charlotte Gibbs DO on 09/27/24 at 1333 Addendum . 09/27/24 1333 Cosigner Signature (if applicable): cc: ~* Signed [facility]04-10-2025 Discharge summary Author Ashu Garcia [facility] Note Date/Time September 26, 2024 11:0 7pm [facility] Medical Records Department [address] [place] [address] Emergency Department Summary 09/25/24 MR#: [id number] Acct: [id number] Name: CASIMIRO LIU Rep #:[id number] : 1980 44 From: Ashu Garcia DO PCP: Dr. Mary Escobar MD Status:ADM IN Location: MS3 [id number] [facility] <Dr. Ashu Garcia DO - Last Filed: 09/26/24 23:07> History of Present Illness Chief Complaint: Abd Pain Informant: patient Narrative Narrative: Patient is a 44-year-old female who was recently in the hospital secondary to biliary duct stones and underwent ERCP and sphincterotomy by GI. She was discharged home and was evaluated in the ER approximately 24 hours ago secondaryto midepigastric abdominal pain. At that time she underwent blood work and a CTscan. Patient's white count was elevated and CT scan showed changes along the pancreas that was consistent with postoperative changes. At that time the case was discussed with the retail link analyst and he felt that the CT findings were consistent with postoperative timeframe and that there is no need for readmission especially as the patient's vitals were stable and her pain was improved. Patient states she followed with her family doctor who placed her on antibiotics and oxycodone. She states that despite taking these she has been having persistent midepigastric abdominal pain and therefore comes back in for reevaluation [facility] <Dr. Ashu Garcia DO - Last Filed: 09/26/24 23:07> [facility] Medical History Hypertension Pancreatitis Hypertension Anxiety Home Medications ?Medication ?Instructions ?Recorded ?Last Taken ?Type fluoxetine 40 mg capsule 40 mg PO DAILY mental health 09/12/24 Unknown History ipratropium bromide 42 mcg (0.06 1 spray intranasal TI D PRN PRN 09/12/24 Unknown History %) nasal spray allergy symptoms amlodipine 10 mg tablet 10 mg PO DAILY 30 days #30 t abs 09/19/24 Unknown Rx losartan 100 mg tablet 100 mg PO DAILY 30 days #30 tabs 09/19/24 Unknown Rx oxycodone 5 mg tablet 5 mg PO Q6H PRN pain 3 days #12 09/19/24 Unknown Rx tabs doxycycline hyclate 100 mg tablet 100 mg PO BID Unknown History prochlorperazine maleate 5 mg 5 mg PO BID 09/25/24 Unk nown History tablet (Compazine) Allergy/AdvReac Type Severity Reaction Status Date / Time No Known Allergies Allergy Verified 09/25/24 04:08 Family History Other Hypertension Surgical History S/P ERCP Hx of cholecystectomy Social History Smoking Status: Former smoker alcohol intake: current alcohol intake frequency: 0-2 drinks per day substance use type: does not use ROS <Dr. Ashu Garcia, DO - Last Filed: 09/26/24 23:07> ROS ED Constitutional Constitutional ED: Denies chills or fever(s) Eyes Eyes: Denies change in vision ENT ENT ED: Denies sore throat Cardiovascular Cardiovascular: Denies chest pain Respiratory/Chest Respiratory/Chest: Denies cough or dyspnea Gastrointestinal Gastrointestinal: Reports abdominal pain and nausea; Denies constipation, diarrhea or vomiting Genitourinary Genitourinary ED: Denies dysuria or hematuria Musculoskeletal Musculoskeletal: Denies back pain or myalgias Integumentary Denies rash Neurologic Neurologic: Denies headache(s) Hematologic/Lymphatic Hematologic/Lymphatic: Denies easy bleeding or easy bruising EXAM <Dr. Ashu Garcia, DO - Last Filed: 09/26/24 23:07> Physical Exam Const Vital Signs: 09/25/24 04:05 09/25/24 06:05 09/25/24 08:00 Temperature 98 F Temperature Source Oral Pulse Rate 86 80 Respiratory Rate 16 16 16 Blood Pressure 155/89 H 138/62 H Blood Pressure Mean 111 87 Pulse Ox 98 98 09/25/24 09:34 Temperature 98 F Temperature Source Pulse Rate 80 Respiratory Rate 16 Blood Pressure 142/82 H Blood Pressure Mean 102 Pulse Ox 99 Positive well nourished and well developed General Appearance ED: well developed; Negative for pallor HEENT HEENT Narrative: No tongue or lip swelling no oral lesions no airway edema or compromise No secondary findings in the posterior pharynx to suggest infection Eyes PERRL and EOMs intact bilaterally General Eye ED: Negative for scleral icterus Neck supple Neck Narrative: No nuchal rigidity or meningeal signs noted Resp normal respiratory effort and clear to auscultation bilaterally Cardio regular rate and regular rhythm Rate: other Other Details: Heart is regular rate and rhythm Radial and carotid pulses are equal and symmetric GI non-tender, non-distended and no masses GI Narrative: Abdomen is soft and nondistended with hypoactive bowel sounds. Patient complains of abdominal pain in the midepigastric region but with distraction andpalpation there is no obvious pain. There is no voluntary guarding or rigidity or peritoneal signs. No pulsatile mass. No fluid wave noted. Auscultation: hypoactive bowel sounds Palpation: soft Extremity normal to inspection Neuro oriented x3, CN's II-XII intact bilaterally and no sensory deficits noted Sensorium / Orientation: alert Motor Exam: strength 5/5 throughout Psych mental status grossly normal Skin no rashes or lesions noted General Skin Exam: Negative for jaundice or pallor <Dr. Chalo Meza, DO - Last Filed: 09/25/24 10:02> Physical Exam Const Vital Signs: 09/25/24 04:05 09/25/24 06:05 09/25/24 08:00 Temperature 98 F Temperature Source Oral Pulse Rate 86 80 Respiratory Rate 16 16 16 Blood Pressure 155/89 H 138/62 H Blood Pressure Mean 111 87 Pulse Ox 98 98 09/25/24 09:34 Temperature 98 F Temperature Source Pulse Rate 80 Respiratory Rate 16 Blood Pressure 142/82 H Blood Pressure Mean 102 Pulse Ox 99 MDM <Dr. Ashu Garcia, DO - Last Filed: 09/26/24 23:07> [facility] Narrative Medical decision making narrative: Care of patient turned over to me by Dr. Garcia this morning. Patient presents with abdominal pain after being seen last evening as well. She had CT imaging last night. She had basic labs today. She was did be discharged at 9 AM as shewas medicated with narcotics and she was driving herself. Prior to discharge nurses tell me that her pain is returned and she continues to have significant upper abdomen pain requesting more pain medication. CT scan of the M pelvis didshow some evidence of acute pancreatitis last evening. She had had prior biliary stent placement. Her lipase is elevated at 287. Will discuss case withhospitalist to evaluate patient for admission for intractable abdominal pain andpancreatitis Patient presented to the ER hypertensive otherwise with stable vitals. She was seen just 24 hours ago and had blood work and a CT scan. Based on her stable vitals and abdominal examination I do not feel there is need for repeat CT scan at this time the basic blood work will be obtained. Patient's white count was elevated at 25.3 roughly 24 hours ago it was approximately 23. However her lactic acid is normal and her procalcitonin is normal and the fact she is afebrile goes against an infectious process as the cause and this is most likelystress response. The patient's liver enzymes have improved from the previous day indicating that there is no blockage of the stent which correlates with the CT scan from 24 hours ago. Her lipase is elevated slightly at 287 but this is most likely postoperative as chart review reveals that her previous lipase was almost 1600 when she had acute pancreatitis. After 1 dose of pain medication she reported resolution of the pain. Therefore this time she has the persistentwhite count but as she is afebrile her lactic acid and procalcitonin are normal and therefore I have low concern for infection and do not feel the need to repeat CT scan. On reevaluation abdomen is soft and nonsurgical and therefore as her vitals are stable her abdomen is soft and nonsurgical and her laboratory studies do not show any significant differences from the previous day I feel shecan follow- up with her GI doctor on an outpatient basis Lab Data Labs: Laboratory Results - last 24 hr 09/25/24 09/25/24 09/25/24 04:17 04:43 04:46 WBC 25.3 H RBC 4.87 Hgb 13.0 Hct 40.5 MCV 83.2 MCH 26.7 L MCHC 32.1 RDW Std Deviation 41.6 RDW Coeff of Chelsie 13.6 Plt Count 435 MPV 9.7 Immature Gran % (Auto) 0.900 Neut % (Auto) 84.4 H Lymph % (Auto) 7.7 L [place] % (Auto) 4.8 Eos % (Auto) 1.8 Baso % (Auto) 0.4 Absolute Neuts (auto) 21.4 H Absolute Lymphs (auto) 1.95 Nucleated RBC % 0 Differential Comment SCANNED Diff Path Review G[employer] Sodium 133 Potassium 4.6 Chloride 97 L Carbon Dioxide 22.9 Anion Gap 13 BUN 7 Creatinine 0.64 L Estim Creat Clear Calc 123.00 Est GFR (MDRD) Non-Af 112 BUN/Creatinine Ratio 11.6 Glucose 209 H Lactic Acid 1.3 Calcium 10.4 Total Bilirubin 0.38 Direct Bilirubin < 0.08 AST 32 ALT 23 Alkaline Phosphatase 116 H Total Protein 7.7 Albumin 4.0 Globulin 3.7 Lipase 287 H Procalcitonin 0.09 Urine Color Yellow Urine Clarity Clear Urine pH 6.5 Ur Specific [place] 1.020 Urine Protein 30 H Urine Glucose (UA) 50 H Urine Ketones Negative Urine Occult Blood Negative Urine Nitrite Negative Urine Bilirubin Negative Urine Urobilinogen Normal Ur Leukocyte Esterase Negative Urine RBC 0 SEEN Urine WBC 0 SEEN Ur Squamous Epith Cells 0 SEEN Urine Bacteria RARE Urine Mucus 0 SEEN <Dr. Chalo Meza, DO - Last Filed: 09/25/24 10:02> [facility] Narrative Medical decision making narrative: Care of patient turned over to me by Dr. Garcia this morning. Patient presents with abdominal pain after being seen last evening as well. She had CT imaging last night. She had basic labs today. She was did be discharged at 9 AM as shewas medicated with narcotics and she was driving herself. Prior to discharge nurses tell me that her pain is returned and she continues to have significant upper abdomen pain requesting more pain medication. CT scan of the M pelvis didshow some evidence of acute pancreatitis last evening. She had had prior biliary stent placement. Her lipase is elevated at 287. Will discuss case withhospitalist to evaluate patient for admission for intractable abdominal pain andpancreatitis Lab Data Attestation: I reviewed the patient's lab results. Labs: Laboratory Results - last 24 hr 09/25/24 09/25/24 09/25/24 04:17 04:43 04:46 WBC 25.3 H RBC 4.87 Hgb 13.0 Hct 40.5 MCV 83.2 MCH 26.7 L MCHC 32.1 RDW Std Deviation 41.6 RDW Coeff of Chelsie 13.6 Plt Count 435 MPV 9.7 Immature Gran % (Auto) 0.900 Neut % (Auto) 84.4 H Lymph % (Auto) 7.7 L [place] % (Auto) 4.8 Eos % (Auto) 1.8 Baso % (Auto) 0.4 Absolute Neuts (auto) 21.4 H Absolute Lymphs (auto) 1.95 Nucleated RBC % 0 Differential Comment SCANNED Diff Path Review [employer] Sodium 133 Potassium 4.6 Chloride 97 L Carbon Dioxide 22.9 Anion Gap 13 BUN 7 Creatinine 0.64 L Estim Creat Clear Calc 123.00 Est GFR (MDRD) Non-Af 112 BUN/Creatinine Ratio 11.6 Glucose 209 H Lactic Acid 1.3 Calcium 10.4 Total Bilirubin 0.38 Direct Bilirubin < 0.08 AST 32 ALT 23 Alkaline Phosphatase 116 H Total Protein 7.7 Albumin 4.0 Globulin 3.7 Lipase 287 H Procalcitonin 0.09 Urine Color Yellow Urine Clarity Clear Urine pH 6.5 Ur Specific [place] 1.020 Urine Protein 30 H Urine Glucose (UA) 50 H Urine Ketones Negative Urine Occult Blood Negative Urine Nitrite Negative Urine Bilirubin Negative Urine Urobilinogen Normal Ur Leukocyte Esterase Negative Urine RBC 0 SEEN Urine WBC 0 SEEN Ur Squamous Epith Cells 0 SEEN Urine Bacteria RARE Urine Mucus 0 SEEN Discharge Plan Dx/Rx/DC Orders Clinical Impression: Postoperative abdominal pain, Leukocytosis, Intractable pain, Pancreatitis Disposition Disposition: Acute Care Hospital [facility] Discharge Date/Time: 09/25/24 11:51 What to do if you have Problems For any increased pain, shortness of breath, bleeding, nausea or vomiting, chestpain, or any unexpected problems, contact your Primary Care Provider. Call [facility] ([phone]) or report to the closest Emergency Room. Call 911 if necessary. 09/26/24 2307 <Electronically signed by sAhu Garcia DO> Cosigner Signature (if applicable): 09/25/24 1514 <Electronically signed by Chalo Meza DO> CC: Dr. Mary Escobar MD ~ Signed [facility] Work Phone: [phone]) 416-788304-09-2025 Discharge summary [facility] Medical Records Department [address] [place] [address] Emergency Department Summary 09/25/24 MR#: [id number] Acct: [id number] Name: CASIMIRO LIU Rep #:[id number] : 1980 44 From: Ashu Garcia DO PCP: Dr. Mary Escobar MD Status:ADM IN Location: IA3 DV102-2 HPI History of Present Illness Chief Complaint: Abd Pain Informant: patient Narrative Narrative: Patient is a 44-year-old female who was recently in the hospital secondary to biliary duct stones and underwent ERCP and sphincterotomy by GI. She was discharged home and was evaluated in the ER approximately 24 hours ago secondaryto midepigastric abdominal pain. At that time she underwent blood work and a CTscan. Patient's white count was elevated and CT scan showed changes along the pancreas that was consistent with postoperative changes. At that time the case was discussed with the retail link analyst and he felt that the CT findings were consistent with postoperative timeframe and that there is no need for readmission especially as the patient's vitals were stable and her pain was improved. Patient states she followed with her family doctor who placed her on antibiotics and oxycodone. She states that despite taking these she has been having persistent midepigastric abdominal pain andtherefore comes back in for reevaluation [facility] Medical History Hypertension Pancreatitis Hypertension Anxiety Home Medications ?Medication ?Instructions ?Recorded ?Last Taken ?Type fluoxetine 40 mg capsule 40 mg PO DAILY mental health 09/12/24 Unknown History ipratropium bromide 42 mcg (0.06 1 spray intranasal TI D PRN PRN 09/12/24 Unknown History %) nasal spray allergy symptoms amlodipine 10 mg tablet 10 mg PO DAILY 30 days #30 t abs 09/19/24 Unknown Rx losartan 100 mg tablet 100 mg PO DAILY 30 days #30 tabs 09/19/24 Unknown Rx oxycodone 5 mg tablet 5 mg PO Q6H PRN pain 3 days #12 09/19/24 Unknown Rx tabs doxycycline hyclate 100 mg tablet 100 mg PO BID Unknown History prochlorperazine maleate 5 mg 5 mg PO BID 09/25/24 Unk nown History tablet (Compazine) Allergy/AdvReac Type Severity Reaction Status Date / Time No Known Allergies Allergy Verified 09/25/24 04:08 Family History Other Hypertension Surgical History S/P ERCP Hx of cholecystectomy Social History Smoking Status: Former smoker alcohol intake: current alcohol intake frequency: 0-2 drinks per day substance use type: does not use ROS ROS ED Constitutional Constitutional ED: Denies chills or fever(s) Eyes Eyes: Denies change in vision ENT ENT ED: Denies sore throat Cardiovascular Cardiovascular: Denies chest pain Respiratory/Chest Respiratory/Chest: Denies cough or dyspnea Gastrointestinal Gastrointestinal: Reports abdominal pain and nausea; Denies constipation, diarrhea or vomiting Genitourinary Genitourinary ED: Denies dysuria or hematuria Musculoskeletal Musculoskeletal: Denies back pain or myalgias Integumentary Denies rash Neurologic Neurologic: Denies headache(s) Hematologic/Lymphatic Hematologic/Lymphatic: Denies easy bleeding or easy bruising EXAM Physical Exam Const Vital Signs: 09/25/24 04:05 09/25/24 06:05 09/25/24 08:00 Temperature 98 F Temperature Source Oral Pulse Rate 86 80 Respiratory Rate 16 16 16 Blood Pressure 155/89 H 138/62 H Blood Pressure Mean 111 87 Pulse Ox 98 98 09/25/24 09:34 Temperature 98 F Temperature Source Pulse Rate 80 Respiratory Rate 16 Blood Pressure 142/82 H Blood Pressure Mean 102 Pulse Ox 99 Positive well nourished and well developed General Appearance ED: well developed; Negative for pallor HEENT HEENT Narrative: No tongue or lip swelling no oral lesions no airway edema or compromise No secondary findings in the posterior pharynx to suggest infection Eyes PERRL and EOMs intact bilaterally General Eye ED: Negative for scleral icterus Neck supple Neck Narrative: No nuchal rigidity or meningeal signs noted Resp normal respiratory effort and clear to auscultation bilaterally Cardio regular rate and regular rhythm Rate: other Other Details: Heart is regular rate and rhythm Radial and carotid pulses are equal and symmetric GI non-tender, non-distended and no masses GI Narrative: Abdomen is soft and nondistended with hypoactive bowel sounds. Patient complains of abdominal pain in the midepigastric region but with distraction andpalpation there is no obvious pain. There is no voluntary guarding or rigidity or peritoneal signs. No pulsatile mass. No fluid wave noted. Auscultation: hypoactive bowel sounds Palpation: soft Extremity normal to inspection Neuro oriented x3, CN's II-XII intact bilaterally and no sensory deficits noted Sensorium / Orientation: alert Motor Exam: strength 5/5 throughout Psych mental status grossly normal Skin no rashes or lesions noted General Skin Exam: Negative for jaundice or pallor Physical Exam Const Vital Signs: 09/25/24 04:05 09/25/24 06:05 09/25/24 08:00 Temperature 98 F Temperature Source Oral Pulse Rate 86 80 Respiratory Rate 16 16 16 Blood Pressure 155/89 H 138/62 H Blood Pressure Mean 111 87 Pulse Ox 98 98 09/25/24 09:34 Temperature 98 F Temperature Source Pulse Rate 80 Respiratory Rate 16 Blood Pressure 142/82 H Blood Pressure Mean 102 Pulse Ox 99 MDM MDM MDM Narrative Medical decision making narrative: Care of patient turned over to me by Dr. Garcia this morning. Patient presents with abdominal pain after being seen last evening as well. She had CT imaging last night. She had basic labs today. She was did be discharged at 9 AM as shewas medicated with narcotics and she was driving herself. Prior to discharge nurses tell me that her pain is returned and she continues to have significant upper abdomen pain requesting more pain medication. CT scan of the M pelvis didshow some evidence of acute pancreatitis last evening. She had had prior biliary stent placement. Her lipase is elevated at 287. Will discuss case withhospitalist to evaluate patient for admission for intractable abdominal pain andpancreatitis Patient presented to the ER hypertensive otherwise with stable vitals. She was seen just 24 hours ago and had blood work and a CT scan. Based on her stable vitals and abdominal examination I do not feel there is need for repeat CT scan at this time the basic blood work will be obtained. Patient's white count was elevated at 25.3 roughly 24 hours ago it was approximately 23. However her lactic acid is normal and her procalcitonin is normal and the fact she is afebrile goes against an infectious process as the cause and this is most likelystress response. The patient's liver enzymes have improved from the previous day indicating that there is no blockage of the stent which correlates with theCT scan from 24 hours ago. Her lipase is elevated slightly at 287 but this is most likely postoperative as chart review reveals that her previous lipase was almost 1600 when she had acute pancreatitis. After 1 dose of pain medication she reported resolution of the pain. Therefore this time she has the persistentwhite count but as she is afebrile her lactic acid and procalcitonin are normal and therefore I have low concern for infection and do not feel the need to repeat CT scan. On reevaluationabdomen is soft and nonsurgical and therefore as her vitals are stable her abdomen is soft and nonsurgical and her laboratory studies do not show any significant differences from the previous day I feel shecan follow-up with her GI doctor on an outpatient basis Lab Data Labs: Laboratory Results - last 24 hr 09/25/24 09/25/24 09/25/24 04:17 04:43 04:46 WBC 25.3 H RBC 4.87 Hgb 13.0 Hct 40.5 MCV 83.2 MCH 26.7 L MCHC 32.1 RDW Std Deviation 41.6 RDW Coeff of Chelsie 13.6 Plt Count 435 MPV 9.7 Immature Gran % (Auto) 0.900 Neut % (Auto) 84.4 H Lymph % (Auto) 7.7 L [place] % (Auto) 4.8 Eos % (Auto) 1.8 Baso % (Auto) 0.4 Absolute Neuts (auto) 21.4 H Absolute Lymphs (auto) 1.95 Nucleated RBC % 0 Differential Comment SCANNED Diff Path Review GUSSET FOLDER Sodium 133 Potassium 4.6 Chloride 97 L Carbon Dioxide 22.9 Anion Gap 13 BUN 7 Creatinine 0.64 L Estim Creat Clear Calc 123.00 Est GFR (MDRD) Non-Af 112 BUN/Creatinine Ratio 11.6 Glucose 209 H Lactic Acid 1.3 Calcium 10.4 Total Bilirubin 0.38 Direct Bilirubin < 0.08 AST 32 ALT 23 Alkaline Phosphatase 116 H Total Protein 7.7 Albumin 4.0 Globulin 3.7 Lipase 287 H Procalcitonin 0.09 Urine Color Yellow Urine Clarity Clear Urine pH 6.5 Ur Specific [place] 1.020 Urine Protein 30 H Urine Glucose (UA) 50 H Urine Ketones Negative Urine Occult Blood Negative Urine Nitrite Negative Urine Bilirubin Negative Urine Urobilinogen Normal Ur Leukocyte Esterase Negative Urine RBC 0 SEEN Urine WBC 0 SEEN Ur Squamous Epith Cells 0 SEEN Urine Bacteria RARE Urine Mucus 0 SEEN MDM MDM Narrative Medical decision making narrative: Care of patient turned over to me by Dr. Garcia this morning. Patient presents with abdominal pain after being seen last evening as well. She had CT imaging last night. She had basic labs today. She was did be discharged at 9 AM as shewas medicated with narcotics and she was driving herself. Prior to discharge nurses tell me that her pain is returned and she continues to have significant upper abdomen pain requesting more pain medication. CT scan of the M pelvis didshow some evidence of acute pancreatitis last evening. She had had prior biliary stent placement. Her lipase is elevated at 287. Will discuss case withhospitalist to evaluate patient for admission for intractable abdominal pain andpancreatitis Lab Data Attestation: I reviewed the patient's lab results. Labs: Laboratory Results - last 24 hr 09/25/24 09/25/24 09/25/24 04:17 04:43 04:46 WBC 25.3 H RBC 4.87 Hgb 13.0 Hct 40.5 MCV 83.2 MCH 26.7 L MCHC 32.1 RDW Std Deviation 41.6 RDW Coeff of Chelsie 13.6 Plt Count 435 MPV 9.7 Immature Gran % (Auto) 0.900 Neut % (Auto) 84.4 H Lymph % (Auto) 7.7 L [place] % (Auto) 4.8 Eos % (Auto) 1.8 Baso % (Auto) 0.4 Absolute Neuts (auto) 21.4 H Absolute Lymphs (auto) 1.95 Nucleated RBC % 0 Differential Comment SCANNED Diff Path Review GUSSET FOLDER Sodium 133 Potassium 4.6 Chloride 97 L Carbon Dioxide 22.9 Anion Gap 13 BUN 7 Creatinine 0.64 L Estim Creat Clear Calc 123.00 Est GFR (MDRD) Non-Af 112 BUN/Creatinine Ratio 11.6 Glucose 209 H Lactic Acid 1.3 Calcium 10.4 Total Bilirubin 0.38 Direct Bilirubin < 0.08 AST 32 ALT 23 Alkaline Phosphatase 116 H Total Protein 7.7 Albumin 4.0 Globulin 3.7 Lipase 287 H Procalcitonin 0.09 Urine Color Yellow Urine Clarity Clear Urine pH 6.5 Ur Specific [place] 1.020 Urine Protein 30 H Urine Glucose (UA) 50 H Urine Ketones Negative Urine Occult Blood Negative Urine Nitrite Negative Urine Bilirubin Negative Urine Urobilinogen Normal Ur Leukocyte Esterase Negative Urine RBC 0 SEEN Urine WBC 0 SEEN Ur Squamous Epith Cells 0 SEEN Urine Bacteria RARE Urine Mucus 0 SEEN Discharge Plan Dx/Rx/DC Orders Clinical Impression: Postoperative abdominal pain, Leukocytosis, Intractable pain, Pancreatitis Disposition Disposition: Acute Care Hospital [facility] Discharge Date/Time: 09/25/24 11:51 What to do if you have Problems For any increased pain, shortness of breath, bleeding, nausea or vomiting, chestpain, or any unexpected problems, contact your Primary Care Provider. Call [facility] ([phone]) or report tothe closest Emergency Room. Call 911 if necessary. 09/26/24 4576 Cosigner Signature (if applicable): 09/25/24 [id number] CC: Dr. Mary Escobar MD ~ Signed [facility]04-08-2025 History and physical note Author Charlotte Gibbs [facility] Note Date/Time September 25, 2024 6:43 pm [facility] Medical Records Department [address] [place] [address] H&P Exam - Hospitalist 09/25/24 0955 MR#: [id number] Acct: [id number] Name: CASIMIRO LIU Rep #:[id number] : 1980 44 From: Charlotte Gibbs DO PCP: Dr. Mary Escobar MD Status:ADM IN Location: [facility] [address]686-1 HPI - General General Date of Admission: 09/25/24 Date of Service: 09/25/24 Chief Complaint: Abdominal pain HPI Narrative CASIMIRO LIU, is a 44 F who presented to the emergency department [facility] on 09/25/2024 with chief complaint of abdominal pain that was intractable. Patient was initially seen on 09/24/2024 and was discharged at 9 AM. She was medicated with narcotics and drove herself. The plan was to discharge her back home however prior to discharge nursing reported that show he was in increased pain and requesting more pain medication. CT of the abdomen and pelvis did show some evidence of acute pancreatitis. Patient was recently admitted from 09/12/2024 through 2024 at which time she was found to have choledocholithiasis however her labs did not support these findings during her presentation. Stent was placed and she was discharged home and stated she was feeling better until Tuesday evening when her pain returned. It slowly worsened over time which led to her initial and then subsequent ED visits. She has had some mild nausea and her abdominal pain is similar to her previous pancreatitis. She does have previous pancreatitis diagnosis remotely at which time she was admitted at [facility]. She had COVID at that time as well. She did receive her primary care physician on the day of presentation and they did put her on some doxycycline for her abdominal pain. She was unclear as what the diagnosis was. When her pain became worse she decided to be evaluated. Vital signs on presentation showed temperature of 98, heart rate 86, respiratory rate 16, blood pressure was 155/89 and pulse ox was 98% on room air.CBC on presentation showed a leukocytosis with a white count of 25.3 and a left shift with an 84.4% neutrophilia. Chemistry panel was overtly unremarkable other than hyperglycemia with a blood sugar of 209. Lactic acid was normal at 1.8. Liver functions were unremarkable. Lipase was 287. Procalcitonin was 0.09. She did have a CT of the abdomen pelvis on 09/24/2024 which showed unchanged hepatomegaly with hepatic steatosis, moderately enlarged pancreas suggestive of acute pancreatitis that was improved from previous likely, mild decrease in peripancreatic inflammation and fat stranding with edema, significant decrease in perihepatic fluid, CBD stent in good position, pneumobilia from previous enterotomy, uncomplicated colonic diverticulosis and mild splenomegaly with thickening of the bladder unchanged from previous which is consistent with gastritis and minimal residual left pleural effusion with resolved right pleural effusion. She was treated with pain medication, IV fluids and antiemetics her pain was persistent show she will be admitted in the hospital. [facility] Medical History Pancreatitis Hypertension Anxiety Home Medications ?Medication ?Instructions ?Recorded ?Last Taken ?Type fluoxetine 40 mg capsule 40 mg PO DAILY mental health 09/12/24 Unknown History ipratropium bromide 42 mcg (0.06 1 spray intranasal TI D PRN PRN 09/12/24 Unknown History %) nasal spray allergy symptoms amlodipine 10 mg tablet 10 mg PO DAILY 30 days #30 t abs 09/19/24 Unknown Rx losartan 100 mg tablet 100 mg PO DAILY 30 days #30 tabs 09/19/24 Unknown Rx oxycodone 5 mg tablet 5 mg PO Q6H PRN pain 3 days #12 09/19/24 Unknown Rx tabs doxycycline hyclate 100 mg tablet 100 mg PO BID Unknown History prochlorperazine maleate 5 mg 5 mg PO BID 09/25/24 Unk nown History tablet (Compazine) Allergy/AdvReac Type Severity Reaction Status Date / Time No Known Allergies Allergy Verified 09/25/24 04:08 Family History (Updated 09/25/24 @ 18:[address] Charlotte Gibbs DO) Other Hypertension Surgical History S/P ERCP Hx of cholecystectomy Social History Smoking Status: Former smoker alcohol intake: current alcohol intake frequency: 0-2 drinks per day substance use type: does not use ROS Constitutional Constitutional: Denies anorexia, change in weight, chills, fatigue, fever(s), malaise, night sweats, weakness or other Eyes Eyes: Denies blurry vision, change in eye color, change in vision, discharge from eye(s), double vision, erythema, eye pain, loss of vision or other ENT HEENT: Denies abnormal hearing, dysphagia, ear pain, epistaxis, headache(s), hearing loss, nasal congestion, nasal discharge, post nasal drip, sinus pressure, sore throat or other Cardiovascular Cardiovascular: Denies chest pain, claudication, dyspnea on exertion, edema, lightheadedness, orthopnea, palpitations, paroxysmal nocturnal dyspnea, rapid heart rate, syncope or other Respiratory/Chest Respiratory/Chest: Denies cough, dyspnea, excessive phlegm production, hemoptysis, productive cough, shortness of breath at rest, shortness of breath with exertion, wheezing or other Gastrointestinal Gastrointestinal: Reports abdominal pain, nausea and other Details: Decreased flatus Genitourinary Genitourinary: Denies burning urination, difficulty urinating, dysuria, hematuria, nocturia, urinary frequency, urinary hesitancy, urinary incontinence,urinary urgency or other Musculoskeletal Musculoskeletal: Reports back pain; Denies arthralgias, joint pain, joint stiffness, joint swelling, myalgias, neck pain or other Neurologic Neurologic: Denies abnormal gait, abnormal speech, confusion, disequilibrium, dizziness, focal weakness, headache(s), numbness, paresthesias, seizure-like activity, seizures, syncope, tingling, tremor(s) or other Psychiatric Psychiatric: Reports depression; Denies anxiety, homicidal ideation, suicidal ideation or other Endocrine Endocrinology: Denies change in body appearance, cold intolerance, excessive sweating, heat intolerance, polydipsia, polyuria or other Hematologic/Lymphatic Hematologic/Lymphatic: Denies anemia, easy bleeding, easy bruising, lymphadenopathy or other Allergic/Immunologic Allergic/Immunologic: Denies rhinitis, hives, eczemia, asthma or other Vital Signs Vital Signs Vital Signs: 09/25/24 04:05 09/25/24 06:05 09/25/24 08:00 Temperature 98 F Temperature Source Oral Pulse Rate 86 80 Respiratory Rate 16 16 16 Blood Pressure 155/89 H 138/62 H Blood Pressure Mean 111 87 Pulse Ox 98 98 09/25/24 09:34 Temperature 98 F Temperature Source Pulse Rate 80 Respiratory Rate 16 Blood Pressure 142/82 H Blood Pressure Mean 102 Pulse Ox 99 Weight Weight: 91.6 kg Body Mass Index (BMI) 34.7 Physical Exam Const alert, oriented x3, no apparent distress and well nourished; Negative for average body habitus or healthy appearing Constitutional Narrative: Obese, middle-aged, white female, sitting up in a wheelchair, appears comfortable at this time, does not look toxic General Appearance: cooperative HEENT normocephalic, head/scalp atraumatic, hearing grossly normal bilaterally and moist oral mucous membranes HEENT Narrative: Mallampati 3-4, no thrush Resp normal respiratory effort, no retractions, no use of accessory muscles and clearto auscultation bilaterally Auscultation: Negative for rales, rhonchi or wheezes Cardio regular rate, regular rhythm, S1 normal heart sound, S2 normal heart sound, no murmurs, no rub, no gallops and no clicks GI soft to palpation GI Narrative: Tenderness to abdomen and epigastric area and left upper quadrant, bowel sounds are slightly hypoactive, abdomen is nondistended, no flank ecchymosis noted Extremity no clubbing, cyanosis or edema Extremity Narrative: Pedal and radial pulses are 2+ Neuro oriented x3, moves all extremities and no focal motor deficits Speech: speech normal Psych affect normal Psych Narrative: Very pleasant, interacts appropriately Results Lab / Micro Data 09/25/24 04:17 09/25/24 04:17 Labs: Laboratory Results - last 24 hr 09/25/24 04:17: WBC 25.3 H, RBC 4.87, Hgb 13.0, Hct 40.5, MCV 83.2, MCH 26.7 L, MCHC 32.1, RDW Std Deviation 41.6, RDW Coeff of Chelsie 13.6, Plt Count 435, MPV 9.7, Immature Gran % (Auto) 0.900, Neut % (Auto) 84.4 H, Lymph % (Auto) 7.7 L, [place] % (Auto) 4.8, Eos % (Auto) 1.8, Baso % (Auto) 0.4, Absolute Neuts (auto) 21.4 H, Absolute Lymphs (auto) 1.95, Nucleated RBC % 0, Differential Comment SCANNED, Diff Path Review GUSSET FOLDER, Sodium 133, Potassium 4.6, Chloride 97 L, Carbon Dioxide 22.9, Anion Gap 13, BUN 7, Creatinine 0.64 L, Estim Creat Clear Calc 123.00, Est GFR (MDRD) Non-Af 112, BUN/Creatinine Ratio 11.6, Glucose 209 H, Calcium 10.4, Total Bilirubin 0.38, Direct Bilirubin < 0.08, AST 32, ALT 23, Alkaline Phosphatase 116 H, Total Protein 7.7, Albumin 4.0, Globulin 3.7, Lipase 287 H, Procalcitonin 0.09 09/25/24 04:43: Lactic Acid 1.3 09/25/24 04:46: Urine Color Yellow, Urine Clarity Clear, Urine pH 6.5, Ur Specific [place] 1.020, Urine Protein 30 H, Urine Glucose (UA) 50 H, Urine Ketones Negative, Urine Occult Blood Negative, Urine Nitrite Negative, Urine Bilirubin Negative, Urine Urobilinogen Normal, Ur Leukocyte Esterase Negative, Urine RBC 0 SEEN, Urine WBC 0 SEEN, Ur Squamous Epith Cells 0 SEEN, Urine Bacteria RARE, Urine Mucus 0 SEEN Assessment & Plan Assessment/Plan (1) Pancreatitis: (2) Leukocytosis: (3) Intractable pain: PLAN: Plan Recurrent acute pancreatitis -N.p.o. with sips and chips sparingly -As needed pain medication both IV and p.o. -Aggressive IV fluids with 200 cc an hour of normal saline -Antiemetics as needed -Choledocholithiasis was found at her last hospitalization and biliary stent wasplaced with stone removal -With recent stent placement and leukocytosis will start on Zosyn Procalcitonin is not markedly elevated- -Imaging is consistent with acute pancreatitis again -GI consultation is pending Leukocytosis -Likely reactive but with recent stent placement will place on Zosyn -No signs of infection -Will trend with repeat CBC in a.m. Hypertension -Continue home losartan -Continue home amlodipine -As needed hydralazine for systolic pressure greater than 150 Hepatomegaly -Suspect nonalcoholic fatty liver disease -Recommend weight loss -Outpatient GI follow-up Anxiety/depression -Continue home fluoxetine Obesity -BMI 34.7 -Recommend weight loss -Complicates treatment, prognosis, outcomes DVT prophylaxis -Lovenox subcu daily CODE STATUS -Full code Charges/Coding Visit Charges Inpatient E&M: 16709 Init Hosp L2 09/25/24 1843 <Electronically signed by Charlotte Gibbs DO> Cosigner Signature (if applicable): CC: Dr. Mary Escobar MD; Dr. Charlotte Gibbs DO~ Signed [facility] Work Phone: [phone] 401-745904-08-2025 History and physical note [facility] Medical Records Department [address] [place] [address] H&P Exam - Hospitalist 09/25/24 0955 MR#: [id number] Acct: [id number] Name: CASIMIRO LIU Rep #:[id number] : 1980 44 From: Charlotte Gibbs DO PCP: Dr. Mary Escobar MD Status:ADM IN Location: [facility] [id number] HPI - General General Date of Admission: 09/25/24 Date of Service: 09/25/24 Chief Complaint: Abdominal pain HPI Narrative CASIMIRO LIU, is a 44 F who presented to the emergency department [facility] on09/25/2024 with chief complaint of abdominal pain that was intractable. Patient was initially seen on09/24/2024 and was discharged at 9 AM. She was medicated with narcotics and drove herself. The plan was to discharge her back home however prior to discharge nursing reported that show he was in increased pain and requesting more pain medication. CT of the abdomen and pelvis did show some evidence ofacute pancreatitis. Patient was recently admitted from 09/12/2024 through 2024 at which time shewas found to have choledocholithiasis however her labs did not support these findings during her presentation. Stent was placed and she was discharged home and stated she was feeling better until Tuesday evening when her pain returned. It slowly worsened over time which led to her initial and then subsequent ED visits. She has had some mild nausea and her abdominal pain is similar to her previous pancreatitis. She does have previous pancreatitis diagnosis remotely at which time she was admitted at [facility]. She had COVID at that time as well. She did receive her primary care physician on the day of presentation and they did put her on some doxycycline for her abdominal pain. She was unclear as what the diagnosis was. When her pain became worse she decided to be evaluated. Vital signs on presentation showed temperature of 98, heart rate 86, respiratory rate 16, blood pressure was 155/89 and pulse ox was 98% on room air.CBC on presentation showed a leukocytosis with a white count of 25.3 and a left shift with an 84.4% neutrophilia. Chemistry panel was overtly unremarkable other than hyperglycemia with a blood sugar of 209. Lactic acid was normal at 1.8. Liver functions were unremarkable. Lipase was 287. Procalcitonin was 0.09. She did have a CT of the abdomen pelvis on 09/24/2024 which showed unchanged hepatomegaly with hepatic steatosis, moderately enlarged pancreas suggestive of acute pancreatitis that was improved from previous likely, mild decrease in peripan creatic inflammation and fat stranding with edema, significant decrease in perihepatic fluid, CBD stent in good position, pneumobilia from previous enterotomy, uncomplicated colonic diverticulosis and mild splenomegaly with thickening of the bladder unchanged from previous which is consistent with g astritis and minimal residual left pleural effusion with resolved right pleural effusion. She was treated with pain medication, IV fluids and antiemetics her pain was persistent show she will be admitted in the hospital. [facility] Medical History Pancreatitis Hypertension Anxiety Home Medications ?Medication ?Instructions ?Recorded ?Last Taken ?Type fluoxetine 40 mg capsule 40 mg PO DAILY mental health 09/12/24 Unknown History ipratropium bromide 42 mcg (0.06 1 spray intranasal TI D PRN PRN 09/12/24 Unknown History %) nasal spray allergy symptoms amlodipine 10 mg tablet 10 mg PO DAILY 30 days #30 t abs 09/19/24 Unknown Rx losartan 100 mg tablet 100 mg PO DAILY 30 days #30 tabs 09/19/24 Unknown Rx oxycodone 5 mg tablet 5 mg PO Q6H PRN pain 3 days #12 09/19/24 Unknown Rx tabs doxycycline hyclate 100 mg tablet 100 mg PO BID Unknown History prochlorperazine maleate 5 mg 5 mg PO BID 09/25/24 Unk nown History tablet (Compazine) Allergy/AdvReac Type Severity Reaction Status Date / Time No Known Allergies Allergy Verified 09/25/24 04:08 Family History (Updated 09/25/24 @ 18:[address] Charlotte Gibbs DO) Other Hypertension Surgical History S/P ERCP Hx of cholecystectomy Social History Smoking Status: Former smoker alcohol intake: current alcohol intake frequency: 0-2 drinks per day substance use type: does not use ROS Constitutional Constitutional: Denies anorexia, change in weight, chills, fatigue, fever(s), malaise, night sweats, weakness or other Eyes Eyes: Denies blurry vision, change in eye color, change in vision, discharge from eye(s), double vision, erythema, eye pain, loss of vision or other ENT HEENT: Denies abnormal hearing, dysphagia, ear pain, epistaxis, headache(s), hearing loss, nasal congestion, nasal discharge, post nasal drip, sinus pressure, sore throat or other Cardiovascular Cardiovascular: Denies chest pain, claudication, dyspnea on exertion, edema, lightheadedness, orthopnea, palpitations, paroxysmal nocturnal dyspnea, rapid heart rate, syncope or other Respiratory/Chest Respiratory/Chest: Denies cough, dyspnea, excessive phlegm production, hemoptysis, productive cough, shortness of breath at rest, shortness of breath with exertion, wheezing or other Gastrointestinal Gastrointestinal: Reports abdominal pain, nausea and other Details: Decreased flatus Genitourinary Genitourinary: Denies burning urination, difficulty urinating, dysuria, hematuria, nocturia, urinary frequency, urinary hesitancy, urinary incontinence,urinary urgency or other Musculoskeletal Musculoskeletal: Reports back pain; Denies arthralgias, joint pain, joint stiffness, joint swelling, myalgias, neck pain or other Neurologic Neurologic: Denies abnormal gait, abnormal speech, confusion, disequilibrium, dizziness, focal weakness, headache(s), numbness, paresthesias, seizure-like activity, seizures, syncope, tingling, tremor(s) or other Psychiatric Psychiatric: Reports depression; Denies anxiety, homicidal ideation, suicidal ideation or other Endocrine Endocrinology: Denies change in body appearance, cold intolerance, excessive sweating, heat intolerance, polydipsia, polyuria or other Hematologic/Lymphatic Hematologic/Lymphatic: Denies anemia, easy bleeding, easy bruising, lymphadenopathy or other Allergic/Immunologic Allergic/Immunologic: Denies rhinitis, hives, eczemia, asthma or other Vital Signs Vital Signs Vital Signs: 09/25/24 04:05 09/25/24 06:05 09/25/24 08:00 Temperature 98 F Temperature Source Oral Pulse Rate 86 80 Respiratory Rate 16 16 16 Blood Pressure 155/89 H 138/62 H Blood Pressure Mean 111 87 Pulse Ox 98 98 09/25/24 09:34 Temperature 98 F Temperature Source Pulse Rate 80 Respiratory Rate 16 Blood Pressure 142/82 H Blood Pressure Mean 102 Pulse Ox 99 Weight Weight: 91.6 kg Body Mass Index (BMI) 34.7 Physical Exam Const alert, oriented x3, no apparent distress and well nourished; Negative for average body habitus or healthy appearing Constitutional Narrative: Obese, middle-aged, white female, sitting up in a wheelchair, appears comfortable at this time, does not look toxic General Appearance: cooperative HEENT normocephalic, head/scalp atraumatic, hearing grossly normal bilaterally and moist oral mucous membranes HEENT Narrative: Mallampati 3-4, no thrush Resp normal respiratory effort, no retractions, no use of accessory muscles and clearto auscultation bilaterally Auscultation: Negative for rales, rhonchi or wheezes Cardio regular rate, regular rhythm, S1 normal heart sound, S2 normal heart sound, no murmurs, no rub, no gallops and no clicks GI soft to palpation GI Narrative: Tenderness to abdomen and epigastric area and left upper quadrant, bowel sounds are slightly hypoactive, abdomen is nondistended, no flank ecchymosis noted Extremity no clubbing, cyanosis or edema Extremity Narrative: Pedal and radial pulses are 2+ Neuro oriented x3, moves all extremities and no focal motor deficits Speech: speech normal Psych affect normal Psych Narrative: Very pleasant, interacts appropriately Results Lab / Micro Data 09/25/24 04:17 09/25/24 04:17 Labs: Laboratory Results - last 24 hr 09/25/24 04:17: WBC 25.3 H, RBC 4.87, Hgb 13.0, Hct 40.5, MCV 83.2, MCH 26.7 L, MCHC 32.1, RDW Std Deviation 41.6, RDW Coeff of Chelsie 13.6, Plt Count 435, MPV 9.7, Immature Gran % (Auto) 0.900, Neut % (Auto) 84.4 H, Lymph % (Auto) 7.7 L, [place] % (Auto) 4.8, Eos % (Auto) 1.8, Baso % (Auto) 0.4, Absolute Neuts (auto) 21.4 H, Absolute Lymphs (auto) 1.95, Nucleated RBC % 0, Differential Comment SCANNED,Diff Path Review [place] FOLDER, Sodium 133, Potassium 4.6, Chloride 97 L, Carbon Dioxide 22.9, Anion Gap 13, BUN 7, Creatinine 0.64 L, Estim Creat Clear Calc 123.00, Est GFR (MDRD) Non-Af 112, BUN/Creatinine Ratio 11.6, Glucose 209 H, Calcium 10.4, Total Bilirubin 0.38, Direct Bilirubin < 0.08, AST 32, ALT23, Alkaline Phosphatase 116 H, Total Protein 7.7, Albumin 4.0, Globulin 3.7, Lipase 287 H, Procalcitonin 0.09 09/25/24 04:43: Lactic Acid 1.3 09/25/24 04:46: Urine Color Yellow, Urine Clarity Clear, Urine pH 6.5, Ur Specific [place] 1.020, Urine Protein 30 H, Urine Glucose (UA) 50 H, Urine Ketones Negative, Urine Occult Blood Negative, Urine Nitrite Negative, Urine Bilirubin Negative, Urine Urobilinogen Normal, Ur Leukocyte Esterase Negative, Urine RBC 0 SEEN, Urine WBC 0 SEEN, Ur Squamous Epith Cells 0 SEEN, Urine Bacteria RARE, UrineMucus 0 SEEN Assessment & Plan Assessment/Plan (1) Pancreatitis: (2) Leukocytosis: (3) Intractable pain: PLAN: Plan Recurrent acute pancreatitis -N.p.o. with sips and chips sparingly -As needed pain medication both IV and p.o. -Aggressive IV fluids with 200 cc an hour of normal saline -Antiemetics as needed -Choledocholithiasis was found at her last hospitalization and biliary stent wasplaced with stone removal -With recent stent placement and leukocytosis will start on Zosyn Procalcitonin is not markedly elevated- -Imaging is consistent with acute pancreatitis again -GI consultation is pending Leukocytosis -Likely reactive but with recent stent placement will place on Zosyn -No signs of infection -Will trend with repeat CBC in a.m. Hypertension -Continue home losartan -Continue home amlodipine -As needed hydralazine for systolic pressure greater than 150 Hepatomegaly -Suspect nonalcoholic fatty liver disease -Recommend weight loss -Outpatient GI follow-up Anxiety/depression -Continue home fluoxetine Obesity -BMI 34.7 -Recommend weight loss -Complicates treatment, prognosis, outcomes DVT prophylaxis -Lovenox subcu daily CODE STATUS -Full code Charges/Coding Visit Charges Inpatient E&M: 37221 Init Hosp L2 09/25/24 1843 Cosigner Signature (if applicable): CC: Dr. Mary Escobar MD; Dr. Charlotte Gibbs, DO~ Signed [facility]04-07-2025 Discharge summary [facility] Medical Records Department [address] [place] [address] Emergency Department Summary 09/24/24 MR#: [id number] Acct: [id number] Name: CASIMIRO LIU Rep #:[id number] : 1980 44 From: Conner Landry MD PCP: Dr. Mary Escobar MD Status:REG ER Location: ED HPI HPI - GI History of Present Illness Chief Complaint: Flank Pain Informant: patient Narrative Narrative: 44-year-old female had relatively abrupt onset of pain in her right flank mostlyin the side and front of her abdomen on the right side yesterday afternoon, 12 or so hours ago, has been colicky, but worst this morning. Associated with an episode of vomiting prior to coming here. No urinary issues. No fevers or chills. No worse with movement. Never had this before. No history of kidney stones that she knows of. She became concerned because 1 week ago she had an ERCP with a stent placed due to finding choledocholithiasis and a biliary stricture, presumably which had leg to an episode of acute pancreatitis, which gave her high epigastric severe pains much different than what she is experiencingnow, she had a cholecystectomy about 19 years ago. [facility] Medical History Pancreatitis Hypertension Anxiety Home Medications ?Medication ?Instructions ?Recorded ?Last Taken ?Type fluoxetine 40 mg capsule 40 mg PO DAILY mental health 09/12/24 Unknown History ipratropium bromide 42 mcg (0.06 1 spray intranasal TI D PRN PRN 09/12/24 Unknown History %) nasal spray allergy symptoms amlodipine 10 mg tablet 10 mg PO DAILY 30 days #30 t abs 04/02/25 Unknown Rx losartan 100 mg tablet 100 mg PO DAILY 30 days #30 tabs 09/19/24 Unknown Rx ondansetron 4 mg disintegrating 4 mg PO Q6H PRN nausea and 09/19/24 Unknown Rx tablet vomiting 3 days #12 tabs oxycodone 5 mg tablet 5 mg PO Q6H PRN pain 3 days #12 09/19/24 Unknown Rx tabs Allergy/AdvReac Type Severity Reaction Status Date / Time No Known Allergies Allergy Verified 09/24/24 04:32 Family History no significant family his Surgical History S/P ERCP Hx of cholecystectomy Social History Smoking Status: Former smoker alcohol intake: current alcohol intake frequency: 0-2 drinks per day substance use type: does not use ROS ROS ED Constitutional Constitutional ED: Denies chills or fever(s) Eyes Eyes: Denies change in vision or diplopia ENT ENT ED: Denies rhinorrhea or sore throat Cardiovascular Cardiovascular: Denies chest pain or palpitations Respiratory/Chest Respiratory/Chest: Denies cough or dyspnea Gastrointestinal Gastrointestinal: Reports abdominal pain, nausea and vomiting; Denies diarrhea Genitourinary Genitourinary ED: Reports as per HPI and flank pain; Denies dysuria or hematuria Musculoskeletal Musculoskeletal: Reports back pain; Denies neck pain Integumentary Denies abscess or rash Neurologic Neurologic: Denies headache(s), paresthesias or weakness Psychiatric Psychiatric: Denies suicidal thoughts EXAM Physical Exam Const Vital Signs: 09/24/24 04:32 09/24/24 05:58 Temperature 98.7 F 98.4 F Temperature Source Oral Oral Pulse Rate 83 76 Respiratory Rate 18 16 Blood Pressure 161/95 H 131/84 H Blood Pressure Mean 117 99 Pulse Ox 100 96 Oxygen Delivery Method Room Air Room Air Positive well nourished and well developed Constitutional Narrative: Well-appearing in no distress General Appearance ED: well developed and NAD HEENT Reports moist mucous membranes normocephalic and atraumatic Eyes PERRL and EOMs intact bilaterally Neck full ROM and supple Resp normal respiratory effort and clear to auscultation bilaterally Cardio regular rate, regular rhythm and no murmurs GI non-distended GI Narrative: Tender throughout the right side of her abdomen, no guarding or rebound, negative Hagen. RUQ minimally tender compared with right mid and lower abd. No jaundice. Auscultation: normoactive bowel sounds Palpation: soft Back/Spine no CVA tenderness General Back: other FROM Extremity normal to inspection General Extremety ED: Negative for edema, pulses abnormal or tenderness General Extremity: Negative for edema or pulses abnormal Neuro oriented x3, CN's II-XII intact bilaterally, no sensory deficits noted and gait normal Sensorium / Orientation: awake and alert Motor Exam: strength 5/5 throughout Psych mental status grossly normal and thought process normal Skin no rashes or lesions noted and no wounds MDM MDM MDM Narrative Medical decision making narrative: Reviewing recent imaging, she had a CT of the abdomen/pelvis 1 week ago that showed no nephrolithiasis, she had some mild bilateral perinephric stranding. Her symptoms right now are concerning for renal colic given its location, however no obstructive uropathy from a stone is unlikely. Repeating this imaging may be helpful in discerning if there is any renal asymmetry. Pyelonephritis is in the differential, but would be an atypical case and she hasno urinary symptoms preceding this. Will also obtain liver enzymes give her doses of Toradol and Zofran, she does not want any narcotics because they made her feel poorly last time she received them. Her test is negative ruling out ectopic. She has a significant leukocytosis. That combined with thefact that she had no uroliths throughout her urinary tract 1 week ago, obtained the CT with IV contrast. I reviewed the images and the report which I agree with. Essentially there are a lot of findings but it shows that everything thatshehad before appears to be improved or resolved including the right pleural effusion, so that is probably not causing her symptoms. The only thing that is new that was not there before is mild bladder wall thickening, but her urinalysis does not show signs of infection. There is occult blood, but again no uroliths. The rest of her labs are normal including liver enzymes except foralkaline phosphatase just barely abnormal at 121 which is nonspecific. I went to reevaluate her. After the Toradol sheis feeling much better, her pain is 2/10, and she has no lower abdominal tenderness, just very mildin her right upper quadrant only. No epigastric tenderness. I discussed with Dr. Sotelo wholooked at the CT as well, and agrees that everything looks pretty good and that she can follow-up as an outpatient. I am going to give her a dose of cefepime 2g in the off chance that this could be early cholangitis, but she really is not presenting with classic cholangitis and she has no fevers, jaundice or elevated bilirubin. Given that her vital signs are normal, she is in very little discomfort, ambulatory in the ER and is well-appearing, I think after the dose of antibiotic she can go home and follow-up closely with GI and/or her PCP. Sheis comfortable with that plan we discussed all of this. Lab Data Attestation: I reviewed the patient's lab results. Labs: Laboratory Results - last 24 hr 09/24/24 09/24/24 09/24/24 04:39 04:46 04:50 WBC 22.3 H RBC 5.04 Hgb 13.4 Hct 42.6 MCV 84.5 MCH 26.6 L MCHC 31.5 L RDW Std Deviation 42.2 RDW Coeff of Chelsie 13.6 Plt Count 483 H MPV 9.5 Immature Gran % (Auto) 1.000 H Neut % (Auto) 79.7 H Lymph % (Auto) 12.7 L [place] % (Auto) 3.9 Eos % (Auto) 2.3 Baso % (Auto) 0.4 Absolute Neuts (auto) 17.7 H Absolute Lymphs (auto) 2.82 Nucleated RBC % 0 Sodium 136 Potassium 4.4 Chloride 97 L Carbon Dioxide 26.4 Anion Gap 13 BUN 8 Creatinine 0.58 L Estim Creat Clear Calc 141.04 Est GFR (MDRD) Non-Af 115 BUN/Creatinine Ratio 14.3 Glucose 155 H Calcium 10.8 Total Bilirubin 0.34 AST 27 ALT 29 Alkaline Phosphatase 121 H Total Protein 8.1 Albumin 4.3 Globulin 3.8 Albumin/Globulin Ratio 1.1 Serum , Qual NEGATIVE Urine Color Straw Urine Clarity Cloudy Urine pH 5.0 Ur Specific [place] 1.025 Urine Protein 30 H Urine Glucose (UA) Normal Urine Ketones Negative Urine Occult Blood 250 H Urine Nitrite Negative Urine Bilirubin Negative Urine Urobilinogen Normal Ur Leukocyte Esterase Negative Urine RBC 0 SEEN Urine WBC 0 SEEN Ur Squamous Epith Cells 0-5 SEEN Amorphous Sediment 1+ Urine Bacteria 0 SEEN Urine Mucus 0 SEEN Radiography Diagnostic Testing: Clinical Impression(s) from Imaging Studies Abdomen/Pelvis CT 09/24/24 05:00 IMPRESSION: 1. Unchanged hepatomegaly with hepatic steatosis. 2. Moderately enlarged, hypodense pancreas suggestive of moderate changes of acute pancreatitis, slightly improved. 3. Mild decrease in tiffani-pancreatic inflammatory fat stranding and edema. 4. Significant decrease of perihepatic free fluid. 5. CBD stent is in good position. 6. Pneumobilia is noted, expected finding secondary to sphincterotomy. 7. Uncomplicated colonic diverticulosis. 8. Unchanged mild splenomegaly. 9. Interval appearance of diffuse thickening of the bladder which can be correlated with urinalysisto exclude mild cystitis. 10. Mild diffuse thickening of the stomach, probably gastritis. This is unchanged. 11. Resolution of right pleural effusion. 12. Minimal residual left pleural effusion. 13. Improved bibasilar pulmonary atelectasis. 14. Mild diffuse spondylosis. 15. Fat containing umbilical hernia without incarceration, unchanged. Reading Location: [place] [address] Discharge Plan Triage Chief Complaint: Flank Pain ED Provider: Conner Landry Dx/Rx/DC Orders Clinical Impression: Right sided abdominal pain, Leukocytosis, History of biliary duct stent placement, History of sphincterotomy of sphincter of Oddi Instructions: Abdominal Pain Prescriptions: No Action ipratropium bromide 42 mcg (0.06 %) spray,non-aerosol 1 spray INTRANASAL TID PRN PRN (Reason: allergy symptoms) fluoxetine 40 mg capsule 40 mg PO DAILY amlodipine 10 mg Tablet 10 mg PO DAILY 30 Days Qty: 30 2RF losartan 100 mg Tablet 100 mg PO DAILY 30 Days Qty: 30 2RF oxycodone 5 mg tablet 5 mg PO Q6H PRN (Reason: pain) 3 Days Qty: 12 0RF ondansetron 4 mg tablet,disintegrating 4 mg PO Q6H PRN (Reason: nausea and vomiting) 3 Days Qty: 12 0RF Primary Care Provider: Mary Escobar Referrals: Mary Escobar MD [Primary Care Provider] - 3-5 Days Arturo Sotelo DO [Med Staff - Active Staff] - 3-5 Days Print Language: Zimbabwean Disposition Disposition: Home, Self Care What to do if you have Problems For any increased pain, shortness of breath, bleeding, nausea or vomiting, chestpain, or any unexpected problems, contact your Primary Care Provider. Call [facility] ([phone]) or report tothe closest Emergency Room. Call 911 if necessary. 09/24/24 0746 Cosigner Signature (if applicable): CC: Dr. Mary Escobar MD ~ Signed [facility]04-07-2025 Radiology Diagnostic study note [facility] Imaging Services [address] [place] [address] Abdomen/Pelvis W IV Cont ONLY MR#: [id number] Acct: [id number] Name: CSAIMIRO LIU Rep #: [id number] : 1980 F 44 From: Hoda Moya MD PCP: Dr. Mary Escobar MD Status: REG ER Study:Abdomen/Pelvis W IV Cont ONLY Date of E xam: 09/24/24 Exam# [id number] Ordering Dr: Rito Landry MD PROCEDURE: ABDOMEN/PELVIS W IV CONT ONLY 09/24/2024 REASON FOR EXAM: RIGHT ABD PAIN, N/V, LEUKOCYTOSIS, RECENT ERCP TECHNIQUE: Abdomen and pelvis CT with intravenous contrast. Coronal and Sagittal reconstruction series were provided. PATIENT PREPARATION: Per protocol ORAL CONTRAST TYPE: None. CONTRAST: VOLUME: 94 mL Isovue 370. One or more dose reduction techniques were used (e.g., Automated exposure control, adjustment of the mA and/or kV according to patient size, use of iterative reconstruction technique. RADIATION DOSE SUMMARY: CTDlvol: 16.8 mGy DLP: 900 mGycm COMPARISON: ERCP on 09/18/2024. MRCP on 09/17/2024. CT scan on 09/16/2024. FINDINGS: Unchanged hepatomegaly with hepatic steatosis. Moderately enlarged, hypodense pancreas suggestive of moderate changes of acute pancreatitis, slightly improved. Mild decrease in tiffani-pancreatic inflammatory fat stranding and edema. Significant decrease of perihepatic free fluid. CBD stent is in good position. Pneumobilia is noted, expected finding secondary to sphincterotomy. Uncomplicated colonic diverticulosis. Unchanged mild splenomegaly. Interval appearance of diffuse thickening of the bladder which can be correlatedwith urinalysis to exclude mild cystitis. Mild diffuse thickening of the stomach, probably gastritis. This is unchanged. Resolution of right pleural effusion. Minimal residual left pleural effusion. Improved bibasilar pulmonary atelectasis. Mild diffuse spondylosis. Fat containing umbilical hernia without incarceration, unchanged. Normal bilateral adrenal glands. Normal size of the right kidney. There is no right renal mass. There are no right renal calculi. There is no right hydronephrosis. Normal visualized right ureter. Normal size of the left kidney. There is no left renal mass. There are no leftrenal calculi. There is no left hydronephrosis. Normal visualized left ureter. Normal small intestine. The appendix is visualized and appears normal. Normal abdominal aorta. Normal inferior vena cava. Normal retroperitoneum. There is no pelvic mass lesion or lymphadenopathy. There is no pelvic fluid. CT/Abdomen/Pelvis W IV Cont ONLY IMPRESSION: 1. Unchanged hepatomegaly with hepatic steatosis. 2. Moderately enlarged, hypodense pancreas suggestive of moderate changes of acute pancreatitis, slightly improved. 3. Mild decrease in tiffani-pancreatic inflammatory fat stranding and edema. 4. Significant decrease of perihepatic free fluid. 5. CBD stent is in good position. 6. Pneumobilia is noted, expected finding secondary to sphincterotomy. 7. Uncomplicated colonic diverticulosis. 8. Unchanged mild splenomegaly. 9. Interval appearance of diffuse thickening of the bladder which can be correlated with urinalysisto exclude mild cystitis. 10. Mild diffuse thickening of the stomach, probably gastritis. This is unchanged. 11. Resolution of right pleural effusion. 12. Minimal residual left pleural effusion. 13. Improved bibasilar pulmonary atelectasis. 14. Mild diffuse spondylosis. 15. Fat containing umbilical hernia without incarceration, unchanged. [facility] CC: Dr. Conner Landry MD; Dr. Mary Escobar MD ~ Comic Book Artist: Signed [facility]04-02-2025 Discharge summary Author Kris Gibbs [facility] Note Date/Time 2024 12:3 4pm [facility] Medical Records Department [address] [place] [address] Instructions for Home/Discharge Instructions 09/19/24 1146 MR#: [id number] Acct: [id number] Name: CASIMIRO LIU Rep #:[id number] : 1980 44 From: Kris drake DO PCP: Dr. Mary Escobar MD Status:ADM IN Discharge Instructions Diet Discharge Diet: No restrictions DC O2, CPAP, BIPAP needs Home O2 Discharge instructions: No Dressing / Incision Discharge Activity: No Restrictions Follow Up Care Test Results: Test results from this visit will be discussed in further detail at your follow- up appointment, if applicable. Discharge Plan Admission Admit Date/Time: 09/12/24 09:34 Primary Reason for Your Visit: abdominal pain Attending Provider: Kris Gibbs Primary Care Provider: Mary Escobar Consulting Providers: Charlotte Gibbs Instructions Additional Instructions / Restrictions: Please take amlodipine and losartan for your high blood pressure going forward. Use oxycodone and Zofran as needed for the next 3 days for pain and nausea control. Please call Dr. Sotelo's office to schedule a follow-up appointment soon. Discharge Orders/Prescriptions Prescriptions: New amlodipine 10 mg Tablet 10 mg PO DAILY 30 Days Qty: 30 2RF losartan 100 mg Tablet 100 mg PO DAILY 30 Days Qty: 30 2RF oxycodone 5 mg tablet 5 mg PO Q6H PRN (Reason: pain) 3 Days Qty: 12 0RF ondansetron 4 mg tablet,disintegrating 4 mg PO Q6H PRN (Reason: nausea and vomiting) 3 Days Qty: 12 0RF Continued ipratropium bromide 42 mcg (0.06 %) spray,non-aerosol 1 spray INTRANASAL TID PRN PRN (Reason: allergy symptoms) fluoxetine 40 mg capsule 40 mg PO DAILY Discontinued lisinopril 5 mg tablet 5 mg PO DAILY Referrals / Follow Up: Mary Escobar MD [Primary Care Provider] - Arturo Sotelo DO [Med Staff - Active Staff] - Disposition Disposition (needs filled in before D/C Order can be placed): Home, Self Care 09/19/24 1234<Electronically signed by Kris Gibbs DO>Kris Gibbs DO CC: Dr. Mary Escobar MD; Dr. Charlotte Gibbs DO ~ Signed [facility] Work Phone: [phone] Consult note [facility] Medical Records Department [address] [place] [address] Counseling Note - Pharmacy 09/19/24 1417 MR#: [id number] Acct: [id number] Name: CASIMIRO LIU Rep #:[id number] : 1980 44 From: Isabela Jacinto PCP: Dr. Mary Escobar MD Status:ADM IN [facility] has performed discharge medication reconciliation and counseling for this patient. 1. AMLODIPINE 10MG PO DAILY 2. LOSARTAN 100MG PO DAILY 3. ONDANSETRON ODT 4MG PO Q6H PRN NAUSEA/VOMITING 4. OXYCODONE 5MG PO Q6H PRN PAIN The patient's discharge medication list was reviewed for discrepancies and discrepancies were resolved. The patient was counseled on the following discharge medications and changes in medications for homegoing were reviewed. The Reason for Use, instructions for use, and potential side effects were reviewed for all new medications. The patient's questions regarding all of their medications were answered. The patient was able to verbally demonstrate an understanding of their dischargemedications. Medications at Discharge Home Medications fluoxetine 40 mg capsule 40 mg PO DAILY mental health 09/12/24 ipratropium bromide 42 mcg (0.06 %) nasal spray 1 spray intranasal TID PRN PRN allergy symptoms 09/12/24 amlodipine 10 mg tablet 10 mg PO DAILY 30 days #30 tabs 09/19/24 losartan 100 mg tablet 100 mg PO DAILY 30 days #30 tabs 09/19/24 ondansetron 4 mg disintegrating tablet 4 mg PO Q6H PRN nausea and vomiting 3 days #12 tabs 09/19/24 oxycodone 5 mg tablet 5 mg PO Q6H PRN pain 3 days #12 tabs 09/19/24 09/19/24 1420 Date _ Isabela Jordan Signature (if applicable): Date CC: ~ Signed [facility]04-02-2025 Discharge summary [facility] Medical Records Department [address] [place] [address] Instructions for Home/Discharge Instructions 09/19/24 1146 MR#: [id number] Acct: [id number] Name: CASIMIRO LIU Rep #:[id number] : 1980 44 From: Kris drake DO PCP: Dr. Mary Escobar MD Status:ADM IN Discharge Instructions Diet Discharge Diet: No restrictions DC O2, CPAP, BIPAP needs Home O2 Discharge instructions: No Dressing / Incision Discharge Activity: No Restrictions Follow Up Care Test Results: Test results from this visit will be discussed in further detail at your follow- up appointment, if applicable. Discharge Plan Admission Admit Date/Time: 09/12/24 09:34 Primary Reason for Your Visit: abdominal pain Attending Provider: Kris Gibbs Primary Care Provider: Mary Escobar Consulting Providers: Charlotte Gibbs Additional Instructions / Restrictions: Please take amlodipine and losartan for your high blood pressure going forward. Use oxycodone and Zofran as needed for the next 3 days for pain and nausea control. Please call Dr. Sotelo's office to schedule a follow-up appointment soon. Discharge Orders/Prescriptions Prescriptions: New amlodipine 10 mg Tablet 10 mg PO DAILY 30 Days Qty: 30 2RF losartan 100 mg Tablet 100 mg PO DAILY 30 Days Qty: 30 2RF oxycodone 5 mg tablet 5 mg PO Q6H PRN (Reason: pain) 3 Days Qty: 12 0RF ondansetron 4 mg tablet,disintegrating 4 mg PO Q6H PRN (Reason: nausea and vomiting) 3 Days Qty: 12 0RF Continued ipratropium bromide 42 mcg (0.06 %) spray,non-aerosol 1 spray INTRANASAL TID PRN PRN (Reason: allergy symptoms) fluoxetine 40 mg capsule 40 mg PO DAILY Discontinued lisinopril 5 mg tablet 5 mg PO DAILY Referrals / Follow Up: Mary Escobar MD [Primary Care Provider] - Arturo Sotelo DO [Med Staff - Active Staff] - Disposition Disposition (needs filled in before D/C Order can be placed): Home, Self Care 09/19/24 1234[facility] GILBERT CC: Dr. Mary Escobar MD; Dr. Charlotte Gibbs DO ~ Signed [facility]04-02-2025 [facility]04-02-2025 Radiology Diagnostic study note [facility] Imaging Services [address] [place] [address] ERCP Biliary/Pancreas MR#: [id number] Acct: [id number] Name: CASIMIRO LIU Rep #: [id number] : 1980 F 43 From: Martin Hernandez MD PCP: Dr. Mary Escobar MD Status: ADM IN Study:ERCP Biliary/Pancreas Date of Exam: 09/18/24 Exam# [id number] Ordering Dr: Kevon Sotelo DO EXAM: ERCP. Fluoroscopic services. CLINICAL HISTORY: Abdominal pain. COMPARISON: None TECHNIQUE: Fluoroscopic services provided for ERCP. 5.4 seconds of fluoroscopy. 2.64 mGy. 9 spot images were obtained. FINDINGS: There is opacification of the common bile duct as well as the intrahepatic biliary ducts. Stent placement. RAD/ERCP Biliary/Pancreas IMPRESSION: ERCP for stent placement. Reading Location: [place] [address] CC: Dr. Mary Escobar MD; Arturo Sotelo DO ~ Comic Book Artist: Signed [facility]04-01-2025 Consult note [facility] Note Date/Time September 18, 2024 8:09 pm [facility] Medical Records Department [address] [place] [address] Anesthesia Postop Eval II 09/18/242007 MR#: [id number] Acct: [id number] Name: CASIMIRO LIU Rep #:[id number] : 1980 43 From: Garry Howard MD PCP: Dr. Mary Escobar MD Status:ADM IN Y Race: C Location: [place] [address] 6-1 Anesthesia Postop Eval I Sum Postop Eval Completion status Anesthesia document: Postop Eval 1 completed: Yes Anesthesia Postop Eval I Summary Anesthesia Postop Eval I Summary: Anesthesia Postop Eval I: Assessment Summary Airway patent Yes 09/18/24 17:05 TOLL TEST DESK WORKER.JBLOU Spontaneous unlabored Yes 09/18/24 17:05 TOLL TEST DESK WORKER.JBLOU respirations Mental status Awake,Calm 09/18/24 17:05 TOLL TEST DESK WORKER.JBLOU nausea No 09/18/24 17:05 TOLL TEST DESK WORKER.JBLOU Vomiting No 09/18/24 17:05 TOLL TEST DESK WORKER.JBLOU Anesthesia Postop Eval I: Fluid Summary Crystalloid volume administer 500 09/18/24 17:05 TOLL TEST DESK WORKER.JBLOU (ml) Colloids volume administered ( ml) Blood Product volume administered (ml) Total IV fluid infused 500 09/18/24 17:05 TOLL TEST DESK WORKER.JBLOU Anesthesia Postop Eval I: Summary Notes Anesthesia Complication No 09/18/24 17:05 TOLL TEST DESK WORKER.JBLOU Anesthesia Complication Comment: Post-operative progress note Anesthesia: Postop Eval II Evaluation Mental status: Awake and Calm Pain Level: 1 nausea: Yes Vomiting: No Progress Note Post-operative progress note: Zofran given for nausea. Complications Anesthesia Complication: No 09/18/242008 <Electronically signed by Garry lord MD> Date _ Garry Howard MD Cosigner Signature: Date CC: ~ Signed [facility] Work Phone: 1(230) 984-907804-01-2025 Consult note Author Arturo oStelo [facility] Note Date/Time September 18, 2024 6:15 pm [facility] Medical Records Department [address] [place] [address] Consultation - GI 09/17/241939 MR#: [id number] Acct: [id number] Name: CASIMIRO LIU Rep #:[id number] : 1980 43 From: Arturo Sotelo DO PCP: Dr. Mary Escobar MD Status:ADM [facility] H[facility] Consult Data Date of Consult: 09/18/24 HPI Narrative Reason for Consultation: Pancreatitis HPI Narrative: CASIMIRO LIU, is a 43 F who presented to the emergency department [facility] on 09/12/2024 with abdominal pain. The patient states she hadsome spicy meat loaf and about 2 hours following she began to feel bloated and gassy. She tried some Pepto-Bismol but had no relief with this. Patient indicated she was up most the night with epigastric and left upper quadrant painpersisted. She described it as achy and dull and radiated towards her left flank area. She also complained of some associated mild mid back pain. She had a normal bowel movement yesterday and has been passing flatus. She denies any vomiting but did have nausea. Denies any fevers. She did have pancreatitis in 2021 and was admitted at [facility] at which time the etiology of her pancreatitis was not found. She did states she had a MRI that was unremarkable for any findings. She does have a history of cholecystectomy done 19 years ago. She takes minimal medication including nasal spray, fluoxetine, and lisinopril. She has been toldshe has elevated blood pressure previously but stopped taking most of her medications. She does not drink alcohol on a regular basis. It appears she hashad previous triglyceride levels done which were not markedly elevated. Liver functions have been normal. Troponins were less than 6 x 2. Triglycerides were 89. Her lipase was 1599. test was negative. Her UA is not consistent with infection. Toxicology screen was negative. Ethyl alcohol level is less than 10. CT of the abdomen pelvis showed the pancreas wasedematous with small to moderate amount of free fluid in the rectal peritoneal region as well as edema in the fat adjacent to the pancreas consistent with pancreatitis with no pancreatic duct dilation and no mass identified. She had diffuse fatty infiltration of the liver with hepatomegaly. I was asked to see patient for idiopathic pancreatitis. She had a MRCP today that displayed: Small but abnormal amount of fluid around the pancreas and the liver. Moderate bilateral pleural effusions Absent gallbladder. No evidence of choledocholithiasis. [facility] Medical History Pancreatitis Hypertension Anxiety Home Medications ?Medication ?Instructions ?Recorded ?Last Taken ?Type fluoxetine 40 mg capsule 40 mg PO DAILY 09/12/24 Unkn own History ipratropium bromide 42 mcg (0.06 1 spray intranasal TI D PRN PRN 09/12/24 Unknown History %) nasal spray allergy symptoms lisinopril 5 mg tablet 5 mg PO DAILY 09/12/24 Unkno wn History Allergy/AdvReac Type Severity Reaction Status Date / Time No Known Allergies Allergy Verified 09/12/24 06:59 Family History no significant family his Surgical History (Updated 09/18/24 @ 15:[address] Garry Howard MD) S/P ERCP Hx of cholecystectomy Social History Smoking Status: Former smoker alcohol intake: current alcohol intake frequency: 0-2 drinks per day substance use type: does not use ROS Constitutional Constitutional: Denies anorexia, change in weight, chills, fatigue, fever(s), malaise, night sweats, weakness or other Eyes Eyes: Denies blurry vision, change in eye color, change in vision, discharge from eye(s), double vision, erythema, eye pain, loss of vision or other ENT HEENT: Denies abnormal hearing, dysphagia, ear pain, epistaxis, headache(s), hearing loss, nasal congestion, nasal discharge, post nasal drip, sinus pressure, sore throat or other Cardiovascular Cardiovascular: Denies chest pain, claudication, dyspnea on exertion, edema, lightheadedness, orthopnea, palpitations, paroxysmal nocturnal dyspnea, rapid heart rate, syncope or other Respiratory/Chest Respiratory/Chest: Denies cough, dyspnea, excessive phlegm production, hemoptysis, productive cough, shortness of breath at rest, shortness of breath with exertion, wheezing or other Gastrointestinal Gastrointestinal: Reports abdominal pain and nausea; Denies coffee ground emesis, constipation, diarrhea, dyspepsia, hematemesis, hematochezia, loose stools, melena, vomiting or other Genitourinary Genitourinary: Denies burning urination, difficulty urinating, dysuria, hematuria, nocturia, urinary frequency, urinary hesitancy, urinary incontinence,urinary urgency or other Musculoskeletal Musculoskeletal: Reports back pain; Denies arthralgias, joint pain, joint stiffness, joint swelling, myalgias, neck pain or other Neurologic Neurologic: Denies abnormal gait, abnormal speech, confusion, disequilibrium, dizziness, focal weakness, headache(s), numbness, paresthesias, seizure-like activity, seizures, syncope, tingling, tremor(s) or other Psychiatric Psychiatric: Reports anxiety; Denies depression, homicidal ideation, suicidal ideation or other Endocrine Endocrinology: Denies change in body appearance, cold intolerance, excessive sweating, heat intolerance, polydipsia, polyuria or other Hematologic/Lymphatic Hematologic/Lymphatic: Denies anemia, easy bleeding, easy bruising, lymphadenopathy or other Allergic/Immunologic Allergic/Immunologic: Denies rhinitis, hives, eczemia, asthma or other Physical Exam Const alert, oriented x3, no apparent distress and well nourished; Negative for average body habitus or healthy appearing Constitutional Narrative: Obese, middle-aged, white female, lying in bed watching television, appears comfortable, nontoxic General Appearance: cooperative HEENT normocephalic, head/scalp atraumatic and moist oral mucous membranes Resp normal respiratory effort, no retractions, no use of accessory muscles and clearto auscultation bilaterally Auscultation: Negative for rales, rhonchi or wheezes Cardio regular rate, regular rhythm, S1 normal heart sound, S2 normal heart sound, no murmurs, no rub, no gallops and no clicks GI normal to inspection, nondistended, normoactive bowel sounds and soft to palpation GI Narrative: Tenderness today predominantly in the left upper quadrant with minimal tenderness in the epigastrium Extremity no clubbing, cyanosis or edema Extremity Narrative: Pedal and radial pulses are 2+ Neuro oriented x3, moves all extremities and no focal motor deficits Speech: speech normal Psych affect normal Psych Narrative: Calm, eye contact is good, patient interacts appropriately Lab / Micro Data 09/18/24 04:05 09/18/24 04:05 Labs: Laboratory Results - last 24 hr 09/17/24 05:57: WBC 8.0, RBC 4.05 L, Hgb 10.9 L, Hct 33.6 L, MCV 83.0, MCH 26.9 L, MCHC 32.4, RDW Std Deviation 42.0, RDW Coeff of Chelsie 13.9, Plt Count 326, MPV 10.2, Immature Gran % (Auto) 0.900, Neut % (Auto) 72.1 H, Lymph % (Auto) 16.9 L,Tarrant % (Auto) 6.5, Eos % (Auto) 3.1, Baso % (Auto) 0.5, Absolute Neuts (auto) 5.7, Absolute Lymphs (auto) 1.34, Nucleated RBC % 0, Sodium 137, Potassium 3.0 L, Chloride 100, Carbon Dioxide 25.4, Anion Gap 12, BUN 4, Creatinine 0.29 L, Estim Creat Clear Calc 300.50 H, Est GFR (MDRD) Non-Af 136, BUN/Creatinine Ratio 13.1, Glucose 102 H, Calcium 9.2, Phosphorus 2.2 L, Magnesium 1.7, Total Bilirubin 0.30, AST 16, ALT 15, Alkaline Phosphatase 90, Total Protein 5.8 L, Albumin 3.2 L, Globulin 2.6, Albumin/Globulin Ratio 1.2 Imaging Radiology Impression MRCP 09/17/24 06:00 IMPRESSION: Small but abnormal amount of fluid around the pancreas. Moderate bilateral pleural effusions Absent gallbladder. No evidence of choledocholithiasis. Reading [facility] Orbit X-Ray 09/17/24 09:30 IMPRESSION: No radiopaque foreign body is seen. Cleared for MRI scanning. Reading [facility] Assessment & Plan Assessment/Plan (1) Acute pancreatitis: (2) Hypertension: (3) Leukocytosis: PLAN: Plan 43-year-old with history of cholecystitis status post cholecystectomy with history of acute recurrent pancreatitis. She has no history of hypertriglyceridemia, cystic fibrosis, IgG associated disease, multiple endocrine neoplasia, celiac disease, vasculitis. However MRCP did not show any signs of pancreatic divisum.Her initial episode of pancreatitis started more than 4 years ago when she suffered from 4 episodes of acute pancreatitis and went on to have a cholecystectomy. She has never undergone any ERCP. Said she does not have pancreatic or furthershe would not benefit from a minor papillotomy or sphincterotomy. She has neverbeen on pancreatic enzymes and she has never had an endoscopic ultrasound.The pancreatic parenchyma was normal in signal and appearance without mass or?pancreatic duct?dilatation on these tests. Her symptoms have increased in severity over the past year. She has no signs and symptoms of chronic pancreatitis. Recurrent acute pancreatitis is defined as more than 2 episodes of a sudden inflammation of the pancreas. Clinical symptoms usually start with?epigastric pain?that sometimes spreads to the back and is associated with nausea, vomiting,and fever. Most cases of acute pancreatitis result from?biliary stone disease?and longstanding alcohol consumption. Workup including: KENZIE comprehensive, workup for cystic fibrosis, celiac disease,IgG4 associated, vasculitis, HIV, repeat triglycerides, inflammatory bowel disease, hereditary pancreatitis: Three-gene Profile (PRSS1, SPINK1, CFTR), Phosphatidylethanol (PEth)-lab a bit but she has any excessive alcohol with thelast 3 months. Since ductal abnormalities, microlithiasis, and?sphincter of Oddi dysfunction type 1 or 2?are responsible for the majority of the idiopathic cases,?cholecystectomy?and, eventually, pancreatic?sphincterotomyis therapeutic in most cases Charges/Coding Visit Charges Inpatient E&M: 20766 Init Hosp L3 09/18/241814 <Electronically signed by Arturo Sotelo DO> Cosigner Signature (if applicable): CC: Dr. Mary Escobar MD~ Signed [facility] Work Phone: 1(725) 302-928704-01-2025 Consult note [facility] Medical Records Department [address] [place] [address] Anesthesia Postop Eval II 09/18/242007 MR#: [id number] Acct: [id number] Name: CASIMIRO LIU Rep #:[id number] : 1980 43 From: Garry Howard MD PCP: Dr. Mary Escobar MD Status:ADM IN Y Race: C Location: [place] [address] 6-1 Anesthesia Postop Eval I Sum Postop Eval Completion status Anesthesia document: Postop Eval 1 completed: Yes Anesthesia Postop Eval I Summary Anesthesia Postop Eval I Summary: Anesthesia Postop Eval I: Assessment Summary Airway patent Yes 09/18/24 17:05 TOLL TEST DESK WORKER.ROSANNALOU Spontaneous unlabored Yes 09/18/24 17:05 TOLL TEST DESK WORKER.JUNE respirations Mental status Awake,Calm 09/18/24 17:05 TOLL TEST DESK WORKER.JBLOU nausea No 09/18/24 17:05 TOLL TEST DESK WORKER.JBLOU Vomiting No 09/18/24 17:05 TOLL TEST DESK WORKER.ROSANNALOU Anesthesia Postop Eval I: Fluid Summary Crystalloid volume administer 500 09/18/24 17:05 TOLL TEST DESK WORKER.JUNE (ml) Colloids volume administered ( ml) Blood Product volume administered (ml) Total IV fluid infused 500 09/18/24 17:05 TOLL TEST DESK WORKER.JUNE Anesthesia Postop Eval I: Summary Notes Anesthesia Complication No 09/18/24 17:05 TOLL TEST DESK WORKER.JUNE Anesthesia Complication Comment: Post-operative progress note Anesthesia: Postop Eval II Evaluation Mental status: Awake and Calm Pain Level: 1 nausea: Yes Vomiting: No Progress Note Post-operative progress note: Zofran given for nausea. Complications Anesthesia Complication: No 09/18/242008 risa SALGADO> Date _ Garry Howard MD Cosigner Signature: Date CC: ~ Signed [facility]04-01-2025 Consult note Author Jaden Conte [facility] Note Date/Time September 18, 2024 5:05 pm [facility] Medical Records Department [address] [place] [address] Anesthesia Postop Eval I 09/18/241703 MR#: [id number] Acct: [id number] Name: CASIMIRO LIU Rep #:[id number] : 1980 43 From: Jaden BEAULIEU PCP: Dr. Mary Escobar MD Status:ADM IN Y Race: C Location: [place] [address] Anesthesia: Postop Eval I Current Vital Signs Temperature: 99.3 F Pulse Rate: 80 Blood Pressure: 154/94 Respiratory Rate: 14 Pulse Ox: 94 Oxygen Delivery Method: Room Air Assessment Airway patent: Yes Spontaneous unlabored respirations: Yes Mental status: Awake and Calm nausea: No Vomiting: No Anesthesia Complication: No Fluid Hydration Crystalloid volume administer (ml): 500 Total IV fluid infused: 500 Progress Note Anesthesia document: Postop Eval 1 completed: Yes 09/18/241704 <Electronically signed by Jaden Conte TOLL TEST DESK WORKER> Date _ Jaden Conte CRNA Cosigner Signature: Date CC: ~ Signed [facility] Work Phone: 1(283) 839-940404-01-2025 Consult note [facility] Medical Records Department [address] [place] [address] Consultation - GI 09/17/241939 MR#: [id number] Acct: [id number] Name: CASIMIRO LIU Rep #:[id number] : 1980 43 From: Arturo Friend PCP: Dr. Mary Escobar MD Status:ADM IN [facility] HPI Consult Data Date of Consult: 09/18/24 HPI Narrative Reason for Consultation: Pancreatitis HPI Narrative: CASIMIRO LIU, is a 43 F who presented to the emergency department [facility] on09/12/2024 with abdominal pain. The patient states she hadsome spicy meat loaf and about 2 hours following she began to feel bloated and gassy. She tried some Pepto-Bismol but had no relief with this.Patient indicated she was up most the night with epigastric and left upper quadrant painpersisted. She described it as achy and dull and radiated towards her left flank area. She also complained of some associated mild mid back pain. She had a normal bowel movement yesterday and has been passing flatus. She denies any vomiting but did have nausea. Denies any fevers. She did have pancreatitis in 2021 and was admitted at [facility] at which time the etiology of her pancreatitis was not found. She did states she had a MRI that was unremarkable for any findings. She does have a history of cholecystectomy done 19 years ago. She takes minimal medication including nasal spray, fluoxetine, andlisinopril. She has been toldshe has elevated blood pressure previously but stopped taking most of her medications. She does not drink alcohol on a regular basis. It appears she hashad previous triglyceride levels done which were not markedly elevated. Liver functions have been normal. Troponins were less than 6 x 2. Triglycerides were 89. Her lipasewas 1599. test was negative. Her UA is not consistent with infection. Toxicology screen was negative. Ethyl alcohol level is less than 10. CT of the abdomen pelvis showed the pancreas wasedematous with small to moderate amount of free fluid in the rectal peritoneal region as well as edemain the fat adjacent to the pancreas consistent with pancreatitis with no pancreatic duct dilation and no mass identified. She had diffuse fatty infiltration of the liver with hepatomegaly. I was asked to see patient for idiopathic pancreatitis. She had a MRCP today that displayed: Small but abnormal amount of fluid around the pancreas and the liver. Moderate bilateral pleural effusions Absent gallbladder. No evidence of choledocholithiasis. [facility] Medical History Pancreatitis Hypertension Anxiety Home Medications ?Medication ?Instructions ?Recorded ?Last Taken ?Type fluoxetine 40 mg capsule 40 mg PO DAILY 09/12/24 Unkn own History ipratropium bromide 42 mcg (0.06 1 spray intranasal TI D PRN PRN 09/12/24 Unknown History %) nasal spray allergy symptoms lisinopril 5 mg tablet 5 mg PO DAILY 09/12/24 Unkno wn History Allergy/AdvReac Type Severity Reaction Status Date / Time No Known Allergies Allergy Verified 09/12/24 06:59 Family History no significant family his Surgical History (Updated 09/18/24 @ 15:[address] Garry Howard MD) S/P ERCP Hx of cholecystectomy Social History Smoking Status: Former smoker alcohol intake: current alcohol intake frequency: 0-2 drinks per day substance use type: does not use ROS Constitutional Constitutional: Denies anorexia, change in weight, chills, fatigue, fever(s), malaise, night sweats, weakness or other Eyes Eyes: Denies blurry vision, change in eye color, change in vision, discharge from eye(s), double vision, erythema, eye pain, loss of vision or other ENT HEENT: Denies abnormal hearing, dysphagia, ear pain, epistaxis, headache(s), hearing loss, nasal congestion, nasal discharge, post nasal drip, sinus pressure, sore throat or other Cardiovascular Cardiovascular: Denies chest pain, claudication, dyspnea on exertion, edema, lightheadedness, orthopnea, palpitations, paroxysmal nocturnal dyspnea, rapid heart rate, syncope or other Respiratory/Chest Respiratory/Chest: Denies cough, dyspnea, excessive phlegm production, hemoptysis, productive cough, shortness of breath at rest, shortness of breath with exertion, wheezing or other Gastrointestinal Gastrointestinal: Reports abdominal pain and nausea; Denies coffee ground emesis, constipation, diarrhea, dyspepsia, hematemesis, hematochezia, loose stools, melena, vomiting or other Genitourinary Genitourinary: Denies burning urination, difficulty urinating, dysuria, hematuria, nocturia, urinary frequency, urinary hesitancy, urinary incontinence,urinary urgency or other Musculoskeletal Musculoskeletal: Reports back pain; Denies arthralgias, joint pain, joint stiffness, joint swelling, myalgias, neck pain or other Neurologic Neurologic: Denies abnormal gait, abnormal speech, confusion, disequilibrium, dizziness, focal weakness, headache(s), numbness, paresthesias, seizure-like activity, seizures, syncope, tingling, tremor(s) or other Psychiatric Psychiatric: Reports anxiety; Denies depression, homicidal ideation, suicidal ideation or other Endocrine Endocrinology: Denies change in body appearance, cold intolerance, excessive sweating, heat intolerance, polydipsia, polyuria or other Hematologic/Lymphatic Hematologic/Lymphatic: Denies anemia, easy bleeding, easy bruising, lymphadenopathy or other Allergic/Immunologic Allergic/Immunologic: Denies rhinitis, hives, eczemia, asthma or other Physical Exam Const alert, oriented x3, no apparent distress and well nourished; Negative for average body habitus or healthy appearing Constitutional Narrative: Obese, middle-aged, white female, lying in bed watching television, appears comfortable, nontoxic General Appearance: cooperative HEENT normocephalic, head/scalp atraumatic and moist oral mucous membranes Resp normal respiratory effort, no retractions, no use of accessory muscles and clearto auscultation bilaterally Auscultation: Negative for rales, rhonchi or wheezes Cardio regular rate, regular rhythm, S1 normal heart sound, S2 normal heart sound, no murmurs, no rub, no gallops and no clicks GI normal to inspection, nondistended, normoactive bowel sounds and soft to palpation GI Narrative: Tenderness today predominantly in the left upper quadrant with minimal tenderness in the epigastrium Extremity no clubbing, cyanosis or edema Extremity Narrative: Pedal and radial pulses are 2+ Neuro oriented x3, moves all extremities and no focal motor deficits Speech: speech normal Psych affect normal Psych Narrative: Calm, eye contact is good, patient interacts appropriately Lab / Micro Data 09/18/24 04:05 09/18/24 04:05 Labs: Laboratory Results - last 24 hr 09/17/24 05:57: WBC 8.0, RBC 4.05 L, Hgb 10.9 L, Hct 33.6 L, MCV 83.0, MCH 26.9 L, MCHC 32.4, RDW Std Deviation 42.0, RDW Coeff of Chelsie 13.9, Plt Count 326, MPV 10.2, Immature Gran % (Auto) 0.900, Neut % (Auto) 72.1 H, Lymph % (Auto) 16.9 L,Tarrant % (Auto) 6.5, Eos % (Auto) 3.1, Baso % (Auto) 0.5, Absolute Neuts (auto) 5.7, Absolute Lymphs (auto) 1.34, Nucleated RBC % 0, Sodium 137, Potassium 3.0 L,Chloride 100, Carbon Dioxide 25.4, Anion Gap 12, BUN 4, Creatinine 0.29 L, Estim Creat Clear Calc 300.50 H, Est GFR (MDRD) Non-Af 136, BUN/Creatinine Ratio 13.1, Glucose 102 H, Calcium 9.2, Phosphorus 2.2 L, Magnesium 1.7, Total Bilirubin 0.30, AST 16, ALT 15, Alkaline Phosphatase 90, Total Protein5.8 L, Albumin 3.2 L, Globulin 2.6, Albumin/Globulin Ratio 1.2 Imaging Radiology Impression MRCP 09/17/24 06:00 IMPRESSION: Small but abnormal amount of fluid around the pancreas. Moderate bilateral pleural effusions Absent gallbladder. No evidence of choledocholithiasis. Reading Location[facility] X-Ray 09/17/24 09:30 IMPRESSION: No radiopaque foreign body is seen. Cleared for MRI scanning. Reading Location: [facility] Assessment & Plan Assessment/Plan (1) Acute pancreatitis: (2) Hypertension: (3) Leukocytosis: PLAN: Plan 43-year-old with history of cholecystitis status post cholecystectomy with history of acute recurrent pancreatitis. She has no history of hypertriglyceridemia, cystic fibrosis, IgG associated disease, multiple endocrine neoplasia, celiac disease, vasculitis. However MRCP did not show any signs of pancreatic divisum.Her initial episode of pancreatitis started more than 4 years ago when she suffered from 4 episodes of acute pancreatitis and went on to have a cholecystectomy. She has never undergone any ERCP. Said she does not have pancreatic or furthershe would not benefitfrom a minor papillotomy or sphincterotomy. She has neverbeen on pancreatic enzymes and she has never had an endoscopic ultrasound.The pancreatic parenchyma was normal in signal and appearance without mass or?pancreatic duct?dilatation on these tests. Her symptoms have increased in severity over the past year. She has no signs and symptoms of chronic pancreatitis. Recurrent acute pancreatitis is defined as more than 2 episodes of a sudden inflammation of the pancreas. Clinical symptoms usually start with?epigastric pain?that sometimes spreads to the back and is associated with nausea, vomiting,and fever. Most cases of acute pancreatitis result from?biliary stone disease?and longstanding alcohol consumption. Workup including: KENZIE comprehensive, workup for cystic fibrosis, celiac disease,IgG4 associated, vasculitis, HIV, repeat triglycerides, inflammatory bowel disease, hereditary pancreatitis: Three-geneProfile (PRSS1, SPINK1, CFTR), Phosphatidylethanol (PEth)-lab a bit but she has any excessive alcohol with thelast 3 months. Since ductal abnormalities, microlithiasis, and?sphincter of Oddi dysfunction type 1 or 2?are responsible for the majority of the idiopathic cases,?cholecystectomy?and, eventually, pancreatic?sphincterotomyis therapeutic in most cases Charges/Coding Visit Charges Inpatient E&M: 17498 Init Hosp L3 09/18/241814 Cosigner Signature (if applicable): CC: Dr. Mary Escobar MD~ Signed [facility] [facility] Progress note Author Arturo Friend [facility] Note Date/Time September 18, 2024 4:00 pm [facility] Medical Records Department [address] [place] [address] Progress Note 09/18/24 1558 MR#: [id number] Acct: [id number] Name: CASIMIRO LIU Rep #:[id number] : 1980 43 From: Arturo Friend DO PCP: Dr. Mary Escobar MD Status:ADM IN Location: [place] [address] Progress Note Patient abdominal pain is a little bit better. Her lipase is improving. She isfor ERCP today. Physical Exam Const alert, oriented x3 and no apparent distress Constitutional Narrative: Middle-age female, class III obesity, mildly fatigued appearing, otherwise laying back comfortably in bed, conversing normally, in no acute distress. Stable. General Appearance: cooperative and comfortable HEENT normocephalic, head/scalp atraumatic, hearing grossly normal bilaterally, nasal mucous membranes and turbinates normal and moist oral mucous membranes Eyes PERRL, EOMs intact bilaterally and conjunctivae normal Neck full ROM Chest inspection of chest normal Resp normal respiratory effort and no use of accessory muscles Resp Narrative: Breathing comfortably on room air at rest. Mild crackles noted in bilateral lung bases, no wheezing noted. Stable. Cardio regular rate, regular rhythm, no murmurs and peripheral pulses 2+ throughout GI GI Narrative: Abdomen with mild to moderate tenderness to palpation diffusely, otherwise soft and nondistended. Stable. Back/Spine normal ROM Extremity normal to inspection, full ROM and no pedal edema Skin no rashes or lesions noted Psych mental status grossly normal Assessment & Plan Assessment/Plan (1) Acute pancreatitis: (2) Hypertension: (3) Leukocytosis: PLAN: Plan 43-year-old with history of cholecystitis status post cholecystectomy with history of acute recurrent pancreatitis. She has no history of hypertriglyceridemia, cystic fibrosis, IgG associated disease, multiple endocrine neoplasia, celiac disease, vasculitis. However MRCP did not show any signs of pancreatic divisum.Her initial episode of pancreatitis started more than 4 years ago when she suffered from 4 episodes of acute pancreatitis and went on to have a cholecystectomy. She has never undergone any ERCP. Said she does not have pancreatic or furthershe would not benefit from a minor papillotomy or sphincterotomy. She has neverbeen on pancreatic enzymes and she has never had an endoscopic ultrasound.The pancreatic parenchyma was normal in signal and appearance without mass or?pancreatic duct?dilatation on these tests. Her symptoms have increased in severity over the past year. She has no signs and symptoms of chronic pancreatitis. Recurrent acute pancreatitis is defined as more than 2 episodes of a sudden inflammation of the pancreas. Clinical symptoms usually start with?epigastric pain?that sometimes spreads to the back and is associated with nausea, vomiting,and fever. Most cases of acute pancreatitis result from?biliary stone disease?and longstanding alcohol consumption. Workup including: [facility] comprehensive, workup for cystic fibrosis, celiac disease,IgG4 associated, vasculitis, HIV, repeat triglycerides, inflammatory bowel disease, hereditary pancreatitis: Three-gene Profile (PRSS1, SPINK1, CFTR), Phosphatidylethanol (PEth)-lab a bit but she has any excessive alcohol with thelast 3 months. Since ductal abnormalities, microlithiasis, and?sphincter of Oddi dysfunction type 1 or 2?are responsible for the majority of the idiopathic cases,?cholecystectomy?and, eventually, pancreatic?sphincterotomyis therapeutic in most cases 09/18/2024-patient will undergo ERCP today. She was explained risks, benefits including not withstanding bleeding, infection, sepsis, perforation, and an ERCPpancreatitis. She agreed to set these risks and she will have ASA of 3. Visit Charges Inpatient E&M: 89924 Subs Hosp L3 09/18/24 1600 <Electronically signed by Arturo Sotelo DO> Arturo Sotelo DO Cosigner Signature (if applicable): CC: ~ Signed [facility] Work Phone: 1(151) 727-513804-01-2025 Consult note Author Garry Howard [facility] Note Date/Time September 18, 2024 3:40 pm [facility] Medical Records Department [address] [place] [address] Pre-Anesthesia Evaluation 09/18/24 1524 MR#: [id number] Acct: [id number] Name: CASIMIRO LIU Rep #:[id number] : 1980 43 From: Garry Howard MD PCP: Dr. Mary Escobar MD Status:ADM IN Y Race: C Location: [place] [address] ASA Classification* ASA Classification ASA Classification: 3 Assessment & Plan Anesthesia* Anesthesia Assessment Anesthesia Assessment: Discussed sedation and/or anesthesia options, risks, benefits, and alternatives with patient/parents/legal guardian/POA. Questions invited. The patient/parents/legal guardian/POA seems to understand and agrees to proceedwith anesthesia plan. Reviewed the physical assessment, medical history, allergy history and patient home medications list prior to surgery/procedure/anesthetic and documented any changes. Performed airway and anesthesia risk assessments. Anesthesia Type Anesthesia Type: General History Source History Obtained from:: Patient and Chart Anesthesia Focused Assessment* Temperature: 98.2 F Pulse Rate: 68 Blood Pressure: 133/102 Respiratory Rate: 16 Pulse Ox: 94 Oxygen Delivery Method: Room Air Oxygen Flow Rate (L/min): 2 Airway Assessment Mouth opens: >3 cm Mallampati Score: III Teeth Condition: Caps/Crowns (Patient has several crowns. They are all tight.) Neck Range of motion (ROM): Limited ROM (slight decrease in extension) Focused Labs Anesthesia Preop lab: CBC WBC 7.5 K/mm3 (4.4-11.0) 09/18/24 04:05 09/18/24 RBC 3.89 M/mm3 (4.2-5.4) L 09/18/24 04:05 09/18/24 Hgb 10.5 g/dL (12.0-15.0) L 09/18/24 04:05 5 Hct 31.9 % (37-47) L 09/18/24 04:05 09/18/24 Plt Count 316 K/mm3 (150-450) 09/18/24 04:05 09/18/24 CHEMISTRY Potassium 2.9 mmol/L (3.3-5.1) L 09/18/24 04:05 09/18/24 Sodium 138 mmol/L (133-145) 09/18/24 04:05 09/18/24 Magnesium 1.7 mg/dL (1.5-2.2) 09/17/24 05:57 09/17/24 Phosphorus 2.2 mg/dL (2.7-4.5) L 09/17/24 05:57 09/17/24 BUN 5 mg/dL (4-19) 09/18/24 04:05 09/18/24 Creatinine 0.36 mg/dL (0.70-1.20) L 09/18/24 04:05 Glucose 158 mg/dL (70-99) H 09/18/24 04:05 09/18/24 TSH 0.397 uIU/mL (0.300-4.200) 09/13/24 05:08 0301/11 COAG Urine Test Negative Negative 09/18/24 03:00 09/18/24 Pre-Assessment Diagnosis/Proposed Procedure Planned Operative Procedure(s): Endoscopic retrograde cholangiopancreatography. 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 When Was Last Pacemaker Check QUESTION #4 FULL TEXT: You/Your Family Experience fever (hyperthermia) with Anesthesia Last Oral Intake Last Oral intake: Last Oral Intake NPO since 00:00 09/18/24 07:49 Meds taken in AM with sips of No 09/18/24 07:49 water? Meds patient instructed to take am of surgery PONV PONV - cylinder checker: PONV - cylinder checker Female HX of Motion Sickness HX of N/V After Surgery Non-Smoker Duration of Surgery greater than 60 minutes Number of Risk Factors PONV Score Height & Weight Height & Weight: Anesthesia: Height & Weight Height 5 ft 4 in 09/18/24 07:49 Weight: 108.6 kg 09/18/24 07:49 Body Mass Index (BMI) 41.1 09/18/24 07:49 Respiratory Assessment Respiratory Assessment - cylinder checker: Respiratory Tract Infection Hx - cylinder checker Hx Respiratory Tract Infection Yes: Cold 09/18/24 01:04 Any additional information?: Yes Hx Respiratory Tract Infection: Yes (Patient believes she had allergy symptoms. clear for about a week.) STOP Sleep Apnea STOP Sleep Apnea - cylinder checker: STOP Sleep Apnea - cylinder checker Hx Hypertension Yes 09/12/24 10:54 Hx Sleep Apnea No 09/12/24 10:54 CPAP BIPAP Do you snore loudly (louder No 09/12/24 10:54 than talking or can be heard Do you often feel tired/ No 09/12/24 10:54 fatigued/ sleepy during daytime? Has anyone observed you stop No 09/12/24 10:54 breathing during sleep? STOP Results Negative 09/12/24 10:54 QUESTION #5 FULL TEXT : Do you snore loudly (louder than talking or can be heard through closed doors)? Tobacco Use History Tobacco Use History - cylinder checker: Tobacco Use History - cylinder checker Tobacco Use Smoking Status Former smoker 09/12/24 17:40 Hx Tobacco Use No 09/12/24 10:54 Years Smoking Packs Smoked per Day Smoking Cessation Date was Yes - quit smoking within 15 09/12/24 10:54 within the last 15 years years Hx Smoking Cessation Date Hx Smoking Cessation Counseling Hematologic Medial History Hematologic Hx - cylinder checker: Hematologic Medical Hx - imaging services director Hx of Blood Transfusion No 09/12/24 10:54 Hx of Transfusion in last 3 No 09/12/24 10:54 Months Date of Last Transfusion (if within last 3 months) Ever experience any problems No 09/12/24 10:54 with transfusion(s)? Specify any problems Hx of Preganancy in last 3 No 09/12/24 10:54 Months Nurse Filling Out Transfusion LC 09/12/24 10:54 & Questions: Date: 09/12/24 09/12/24 10:54 Time: 12:36 09/12/24 10:54 Patient unable to answer at this time (ie. confused, unrespo /Reproduction History /Reproductive History - cylinder checker: /Reproductive Hx- cylinder checker Hx Now No 09/18/24 01:04 Gestational Age (in weeks): EDC: Hx Hx Para Hx Section SAB No 09/18/24 01:04 Active Medications Active Medications: Current Medications Generic Name Dose Route Start Last Admin Trade Name Freq PRN Reason Stop Dose Admin Amlodipine Besylate 10 mg 09/16/24 10:00 09/17/24 11:42 Amlodipine 10 Mg Tablet PO 10 mg DAILY NANCY Administration Protocol Enoxaparin Sodium 40 mg 09/16/24 22:00 09/17/24 22:58 Enoxaparin 40 Mg/0.4 Ml Syringe SC Not Given BID NANCY Fluoxetine HCl 40 mg 09/12/24 10:54 09/17/24 11:43 Fluoxetine Hcl 40 Mg Capsule PO 40 mg DAILY NANCY Administration Fluticasone Propionate 2 spray 09/15/24 10:00 09/17/24 11:41 Fluticasone 0.05% 1 Dewy Rose Nasal.Sry NASAL 2 spray DAILY NANCY Administration Hydralazine HCl 10 mg 09/16/24 13:16 09/17/24 05:08 Hydralazine 20 Mg/Ml Vial IV 10 mg Q6H PRN PRN Administration SBP>150 Protocol Hydromorphone HCl 0.5 mg 09/16/24 17:38 09/18/24 11:04 Hydromorphone 0.5 Mg/0.5 Ml Syringe IV 0.5 mg Q3H PRN PRN Administration Pain Score 6-10 Sodium Chloride 1,000 mls @ 75 mls/hr 09/12/24 09:15 09/18/24 09:10 IV 75 mls/hr .[id number] NANCY Administration Sodium Chloride 100 mls @ 15 mls/hr 09/12/24 10:55 IV .Q6H40M PRN Saline Flush Potassium Phosphate 40 mm/ 513.3333 mls @ 62.5 mls/hr 09/18/24 07:48 09/18/2508:11 Sodium Chloride IV 09/18/24 16:00 62.5 mls/hr X1 ONE Administration Ipratropium [place] 1 spray 09/12/24 10:54 Ipratropium [place] 0.06% Nasal Dewy Rose NASAL TID PRN PRN allergy symptoms Losartan Potassium 100 mg 09/16/24 10:00 09/17/24 11:41 Losartan Potassium 100 Mg Tablet PO 100 mg DAILY NANCY Administration Protocol Melatonin 10 mg 09/13/24 22:00 09/17/24 22:59 Melatonin 10 Mg Tablet PO 10 mg QHS NANCY Administration Ondansetron HCl 4 mg 09/12/24 11:37 09/18/24 07:39 Ondansetron 4 Mg/2 Ml Vial IV 4 mg Q6H PRN PRN Administration NAUSEA/VOMITING Pantoprazole Sodium 40 mg 09/16/24 10:00 09/17/24 11:43 Pantoprazole Sodium 40 Mg Tablet PO 40 mg DAILY NANCY Administration Polyethylene Glycol 17 gm 09/17/24 08:42 Polyethylene Glycol 3350 17 Gm Packet PO DAILY PRN constipation Senna 1 tablet 09/17/24 10:00 09/17/24 22:59 Senna Tablet PO 1 tablet BID NANCY Administration Sodium Chloride 10 - 40 ml 09/12/24 10:55 09/18/24 11:04 0.9% Saline Lock 10 Ml Syringe IV 10 ml UD PRN Administration SALINE FLUSH Sodium Chloride 2 spray 09/14/24 10:38 09/14/24 18:34 Sodium Chloride 0.65% 1 Dewy Rose Dewy Rose.Btl NASAL 2 spray TID PRN PRN Administration NASAL DRYNESS PFSH Medical History Pancreatitis Hypertension Anxiety Home Medications ?Medication ?Instructions ?Recorded ?Last Taken ?Type fluoxetine 40 mg capsule 40 mg PO DAILY 09/12/24 Unkn own History ipratropium bromide 42 mcg (0.06 1 spray intranasal TI D PRN PRN 09/12/24 Unknown History %) nasal spray allergy symptoms lisinopril 5 mg tablet 5 mg PO DAILY 09/12/24 Unkno wn History Allergy/AdvReac Type Severity Reaction Status Date / Time No Known Allergies Allergy Verified 09/12/24 06:59 Family History no significant family his Surgical History (Updated 09/18/24 @ 15:[address] Garry Howard MD) S/P ERCP Hx of cholecystectomy Social History Smoking Status: Former smoker alcohol intake: current alcohol intake frequency: 0-2 drinks per day substance use type: does not use Review of Systems (Anesthesia) ROS Narrative System reviewed and no additional complaints, except as documented. 09/18/24 1540 <Electronically signed by Garry lord MD> Date _ Garry Howard MD Cosigner Signature: Date CC: ~ Signed [facility] Work Phone: 1(400) 429-394004-01-2025 Consult note [facility] Medical Records Department [address] [place] [address] Anesthesia Postop Eval I 09/18/241703 MR#: [id number] Acct: [id number] Name: CASIMIRO LIU Rep #:[id number] : 1980 43 From: Jaden BEAULIEU PCP: Dr. Mary Escobar MD Status:ADM IN Y Race: C Location: [place] [address] Anesthesia: Postop Eval I Current Vital Signs Temperature: 99.3 F Pulse Rate: 80 Blood Pressure: 154/94 Respiratory Rate: 14 Pulse Ox: 94 Oxygen Delivery Method: Room Air Assessment Airway patent: Yes Spontaneous unlabored respirations: Yes Mental status: Awake and Calm nausea: No Vomiting: No Anesthesia Complication: No Fluid Hydration Crystalloid volume administer (ml): 500 Total IV fluid infused: 500 Progress Note Anesthesia document: Postop Eval 1 completed: Yes 09/18/241704 TOLL TEST DESK WORKER> Date _ Jaden Conte TOLL TEST DESK WORKER Cosigner Signature: Date CC: ~ Signed [facility]04-01-2025 Procedure note [facility] Medical Records Department [address] [place] [address] ERCP Report MR#: [id number] Acct: [id number] Name: CASIMIRO LIU Rep #:[id number] : 1980 43 From: Arturo Sotelo DO PCP: Dr. Mary Escobar MD Status:ADM IN Patient Name: Casimiro Liu Procedure Date: 09/18/2024 2:38 PM Date of : 1980 Age: 43 Procedure: ERCP Indications: Abdominal pain of suspected biliary or pancreatic origin, Elevated liver enzymes, Acute recurrent pancreatitis Providers: Arturo Sotelo DO Medicines: Monitored Anesthesia Care Patient Profile: This is a 43 year old female. Refer to note in patient chart for documentation of history and physical. Patient has symptoms of acute right upper quadrant abdominal pain, acute epigastric abdominal pain, acute nausea and acute vomiting. This patient has no history of previous ERCP. She is status post laparoscopic cholecystectomy in the distant past. Complications: No immediate complications. Procedure: Pre-Anesthesia Assessment: - Prior to the procedure, a History and Physical was performed, and patient medications and allergies were reviewed. The patient is competent. The risks and benefits of the procedure and the sedation options and risks were discussed with the patient. All questions were answered and informed consent was obtained. Patient identification and proposed procedure were verified by the physician in the pre-procedure area. Mental Status Examination: alert and oriented. Airway Examination: normal oropharyngeal airway and neck mobility. Respiratory Examination: clear to auscultation. CV Examination: normal. ASA Grade Assessment: II - A patient with mild systemic disease. After reviewing the risks and benefits, the patient was deemed in satisfactory condition to undergo the procedure. The anesthesia plan was to use general anesthesia. Immediately prior to administration of medications, the patient was re-assessed for adequacy to receive sedatives. The heart rate, respiratory rate, oxygen saturations, blood pressure, adequacy of pulmonary ventilation, and response to care were monitored throughout the procedure. The physical status of the patient was re-assessed after the procedure. After obtaining informed consent, the scope was passed under direct vision. Throughout the procedure, the patient's blood pressure, pulse, and oxygen saturations were monitored continuously. The Duodenoscope was introduced through the mouth, and advanced to the duodenum and used to inject contrast into the bile duct. The ERCP was accomplished without difficulty. The patient tolerated the procedure well. Scope In: 4:34:08 PM Scope Out: 4:45:20 PM Total Procedure Duration Time 0 hours 11 minutes 12 seconds Findings: The farmworker fruit film was normal. A standard esophagogastroduodenoscopy scope was used for the examination of the upper gastrointestinal tract. The scope was passed under direct vision through the upper GI tract. A small-mouthed diverticulum was found in the area of the papilla. The upper GI tract was traversed under direct vision without detailed examination. The major papilla was normal. The major papilla was adjacent to a diverticulum. The major papilla was congested. The major papilla was bulging. The minor papilla was not found. A long 0.025 inch Jagwire was passed into the biliary tree. The short-nosed traction sphincterotome was passed over the guidewire and the bile duct was then deeply cannulated. Contrast was injected. I personally interpreted the bile duct images. Ductal flow of contrast was adequate. Image quality was adequate. Contrast extended to the entire biliary tree. Opacification of the entire biliary tree except for the gallbladder was successful. The maximum diameter of the ducts was 10 mm. The lower third of the main bile duct contained a single localized stenosis 6 mm in length. The main bile duct and common bile duct were diffusely dilated, acquired. The largest diameter was 10 mm. A cholecystectomy had been performed. A 5 mm biliary sphincterotomy was made with a traction (standard) sphincterotome using ERBE electrocautery. There was no post-sphincterotomy bleeding. The biliary tree was swept with a 12 mm balloon starting at the bifurcation. Sludge was swept from the duct. All stones were removed. One 10 Fr by 7 cm temporary stent was placed 5 cm into the common bile duct. Bile flowed through the stent. The stent was in good position. Impression: - Duodenal diverticulum. - The major papilla appeared normal. - The major papilla was adjacent to a diverticulum. - The major papilla appeared congested. - The major papilla appeared to be bulging. - A single localized biliary stricture was found in the lower third of the main bile duct. The stricture was inflammatory. - The entire main bile duct and common bile duct were dilated, acquired. - The patient has had a cholecystectomy. - Choledocholithiasis was found. Complete removal was accomplished by biliary sphincterotomy and balloon extraction. - A biliary sphincterotomy was performed. - The biliary tree was swept. - One temporary stent was placed into the common bile duct. Procedure Code(s): --- Professional --- 47999, Endoscopic retrograde cholangiopancreatography (ERCP); with placement of endoscopic stent into biliary or pancreatic duct, including pre- and post-dilation and guide wire passage, when performed, including sphincterotomy, when performed, each stent 07842, Endoscopic retrograde cholangiopancreatography (ERCP); with removal of calculi/debris from biliary/pancreatic duct(s) 92641, 26, Endoscopic catheterization of the biliary ductal system, radiological supervision and interpretation CPT copyright 2021 [employer]. All rights reserved. The codes documented in this report are preliminary and upon supervisor roller shop review may be revised to meet current compliance requirements. Arturo Sotelo DO 09/18/2024 4:54:07 PM This report has been signed electronically. Number of Addenda: 0 Note Initiated On: 09/18/2024 2:38 PM 09/18/24 1654 Date _ Arturo Sotelo DO Cosigner Signature: Date (if indicated) CC: Dr. Mary Escobar MD; Arturo Sotelo DO ~ Date Dictated: 09/18/24 1438 Date Transcribed: Comic Book Artist: RF Signed [facility]04-01-2025 Procedure note [facility] Medical Records Department [address] [place] [address] Operative Report - CC Letter MR#: [id number] Acct: [id number] Name: CASIMIRO LIU Rep #:[id number] : 1980 43 From: Arturo Sotelo DO PCP: Dr. Mary Escobar MD Status:ADM IN 09/18/2024 Mary Escobar Md Re : ERCP procedure for Casimiro Liu Renetta Escobar This procedure was performed on Wednesday, September 18, 2024. My impressions and recommendations are as follows: Impressions : - Duodenal diverticulum. - The major papilla appeared normal. - The major papilla was adjacent to a diverticulum. - The major papilla appeared congested. - The major papilla appeared to be bulging. - A single localized biliary stricture was found in the lower third of the main bile duct. The stricture was inflammatory. - The entire main bile duct and common bile duct were dilated, acquired. - The patient has had a cholecystectomy. - Choledocholithiasis was found. Complete removal was accomplished by biliary sphincterotomy and balloon extraction. - A biliary sphincterotomy was performed. - The biliary tree was swept. - One temporary stent was placed into the common bile duct. Recommendations : My findings are described in the full procedure note, which is enclosed. If I can be of further assistance, please feel free to contact me at . Sincerely, Arturo Sotelo DO 09/18/2024 4:54:07 PM This report has been signed electronically. 09/18/24 1654 Date _ Arturo Sotelo DO Cosigner Signature: Date (if indicated) CC: Dr. Kris Gibbs DO; Dr. Mary Escobar MD; Dr. Charlotte Gibbs DO ~ Date Dictated: 09/18/24 1438 Date Transcribed: Comic Book Artist: RF Signed [facility]04-01-2025 Progress note [facility] Medical Records Department [address] [place] [address] Progress Note 09/18/24 1558 MR#: [id number] Acct: [id number] Name: CASIMIRO LIU Rep #:[id number] : 1980 43 From: Arturo Sotelo DO PCP: Dr. Mary Escobar MD Status:ADM IN Location: [place] [id number] Progress Note Patient abdominal pain is a little bit better. Her lipase is improving. She isfor ERCP today. Physical Exam Const alert, oriented x3 and no apparent distress Constitutional Narrative: Middle-age female, class III obesity, mildly fatigued appearing, otherwise laying back comfortably in bed, conversing normally, in no acute distress. Stable. General Appearance: cooperative and comfortable HEENT normocephalic, head/scalp atraumatic, hearing grossly normal bilaterally, nasal mucous membranes and turbinates normal and moist oral mucous membranes Eyes PERRL, EOMs intact bilaterally and conjunctivae normal Neck full ROM Chest inspection of chest normal Resp normal respiratory effort and no use of accessory muscles Resp Narrative: Breathing comfortably on room air at rest. Mild crackles noted in bilateral lung bases, no wheezingnoted. Stable. Cardio regular rate, regular rhythm, no murmurs and peripheral pulses 2+ throughout GI GI Narrative: Abdomen with mild to moderate tenderness to palpation diffusely, otherwise soft and nondistended. Stable. Back/Spine normal ROM Extremity normal to inspection, full ROM and no pedal edema Skin no rashes or lesions noted Psych mental status grossly normal Assessment & Plan Assessment/Plan (1) Acute pancreatitis: (2) Hypertension: (3) Leukocytosis: PLAN: Plan 43-year-old with history of cholecystitis status post cholecystectomy with history of acute recurrent pancreatitis. She has no history of hypertriglyceridemia, cystic fibrosis, IgG associated disease, multiple endocrine neoplasia, celiac disease, vasculitis. However MRCP did not show any signs of pancreatic divisum.Her initial episode of pancreatitis started more than 4 years ago when she suffered from 4 episodes of acute pancreatitis and went on to have a cholecystectomy. She has never undergone any ERCP. Said she does not have pancreatic or furthershe would not benefitfrom a minor papillotomy or sphincterotomy. She has neverbeen on pancreatic enzymes and she has never had an endoscopic ultrasound.The pancreatic parenchyma was normal in signal and appearance without mass or?pancreatic duct?dilatation on these tests. Her symptoms have increased in severity over the past year. She has no signs and symptoms of chronic pancreatitis. Recurrent acute pancreatitis is defined as more than 2 episodes of a sudden inflammation of the pancreas. Clinical symptoms usually start with?epigastric pain?that sometimes spreads to the back and is associated with nausea, vomiting,and fever. Most cases of acute pancreatitis result from?biliary stone disease?and longstanding alcohol consumption. Workup including: [facility] comprehensive, workup for cystic fibrosis, celiac disease,IgG4 associated, vasculitis, HIV, repeat triglycerides, inflammatory bowel disease, hereditary pancreatitis: Three-geneProfile (PRSS1, SPINK1, CFTR), Phosphatidylethanol (PEth)-lab a bit but she has any excessive alcohol with thelast 3 months. Since ductal abnormalities, microlithiasis, and?sphincter of Oddi dysfunction type 1 or 2?are responsible for the majority of the idiopathic cases,?cholecystectomy?and, eventually, pancreatic?sphincterotomyis therapeutic in most cases 09/18/2024-patient will undergo ERCP today. She was explained risks, benefits including not withstanding bleeding, infection, sepsis, perforation, and an ERCPpancreatitis. She agreed to set these risksand she will have ASA of 3. Visit Charges Inpatient E&M: 62411 Subs Hosp L3 09/18/24 1600 Arturo Friend DO Cosigner Signature (if applicable): CC: ~ Signed [facility]04-01-2025 Consult note [facility] Medical Records Department [address] [place] [address] Pre-Anesthesia Evaluation 09/18/24 1524 MR#: [id number] Acct: [id number] Name: CASIMIRO LIU Rep #:[id number] : 1980 43 From: Garry Howard MD PCP: Dr. Mary Escobar MD Status:ADM IN Y Race: C Location: [place] [address] ASA Classification* ASA Classification ASA Classification: 3 Assessment & Plan Anesthesia* Anesthesia Assessment Anesthesia Assessment: Discussed sedation and/or anesthesia options, risks, benefits, and alternatives with patient/parents/legal guardian/POA. Questions invited. The patient/parents/legal guardian/POA seems to understand and agrees to proceedwith anesthesia plan. Reviewed the physical assessment, medical history, allergy history and patient home medications list prior to surgery/procedure/anesthetic and documented any changes. Performed airway and anesthesia risk assessments. Anesthesia Type Anesthesia Type: General History Source History Obtained from:: Patient and Chart Anesthesia Focused Assessment* Temperature: 98.2 F Pulse Rate: 68 Blood Pressure: 133/102 Respiratory Rate: 16 Pulse Ox: 94 Oxygen Delivery Method: Room Air Oxygen Flow Rate (L/min): 2 Airway Assessment Mouth opens: >3 cm Mallampati Score: III Teeth Condition: Caps/Crowns (Patient has several crowns. They are all tight.) Neck Range of motion (ROM): Limited ROM (slight decrease in extension) Focused Labs Anesthesia Preop lab: CBC WBC 7.5 K/mm3 (4.4-11.0) 09/18/24 04:05 09/18/24 RBC 3.89 M/mm3 (4.2-5.4) L 04/01/25 04:05 09/18/24 Hgb 10.5 g/dL (12.0-15.0) L 09/18/24 04:05 5 Hct 31.9 % (37-47) L 09/18/24 04:05 09/18/24 Plt Count 316 K/mm3 (150-450) 09/18/24 04:05 09/18/24 CHEMISTRY Potassium 2.9 mmol/L (3.3-5.1) L 09/18/24 04:05 09/18/24 Sodium 138 mmol/L (133-145) 09/18/24 04:05 09/18/24 Magnesium 1.7 mg/dL (1.5-2.2) 09/17/24 05:57 09/17/24 Phosphorus 2.2 mg/dL (2.7-4.5) L 09/17/24 05:57 09/17/24 BUN 5 mg/dL (4-19) 09/18/24 04:05 09/18/24 Creatinine 0.36 mg/dL (0.70-1.20) L 09/18/24 04:05 Glucose 158 mg/dL (70-99) H 09/18/24 04:05 09/18/24 TSH 0.397 uIU/mL (0.300-4.200) 09/13/24 05:08 08/19 01/11 COAG Urine Test Negative Negative 09/18/24 03:00 09/18/24 Pre-Assessment Diagnosis/Proposed Procedure Planned Operative Procedure(s): Endoscopic retrograde cholangiopancreatography. 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 When Was Last Pacemaker Check QUESTION #4 FULL TEXT: You/Your Family Experience fever (hyperthermia) with Anesthesia Last Oral Intake Last Oral intake: Last Oral Intake NPO since 00:00 09/18/24 07:49 Meds taken in AM with sips of No 09/18/24 07:49 water? Meds patient instructed to take am of surgery PONV PONV - cylinder checker: PONV - cylinder checker Female HX of Motion Sickness HX of N/V After Surgery Non-Smoker Duration of Surgery greater than 60 minutes Number of Risk Factors PONV Score Height & Weight Height & Weight: Anesthesia: Height & Weight Height 5 ft 4 in 09/18/24 07:49 Weight: 108.6 kg 09/18/24 07:49 Body Mass Index (BMI) 41.1 09/18/24 07:49 Respiratory Assessment Respiratory Assessment - cylinder checker: Respiratory Tract Infection Hx - cylinder checker Hx Respiratory Tract Infection Yes: Cold 09/18/24 01:04 Any additional information?: Yes Hx Respiratory Tract Infection: Yes (Patient believes she had allergy symptoms. clear for about a week.) STOP Sleep Apnea STOP Sleep Apnea - cylinder checker: STOP Sleep Apnea - cylinder checker Hx Hypertension Yes 09/12/24 10:54 Hx Sleep Apnea No 09/12/24 10:54 CPAP BIPAP Do you snore loudly (louder No 09/12/24 10:54 than talking or can be heard Do you often feel tired/ No 09/12/24 10:54 fatigued/ sleepy during daytime? Has anyone observed you stop No 09/12/24 10:54 breathing during sleep? STOP Results Negative 09/12/24 10:54 QUESTION #5 FULL TEXT : Do you snore loudly (louder than talking or can be heard through closeddoors)? Tobacco Use History Tobacco Use History - cylinder checker: Tobacco Use History - cylinder checker Tobacco Use Smoking Status Former smoker 09/12/24 17:40 Hx Tobacco Use No 09/12/24 10:54 Years Smoking Packs Smoked per Day Smoking Cessation Date was Yes - quit smoking within 15 09/12/24 10:54 within the last 15 years years Hx Smoking Cessation Date Hx Smoking Cessation Counseling Hematologic Medial History Hematologic Hx - cylinder checker: Hematologic Medical Hx - imaging services director Hx of Blood Transfusion No 09/12/24 10:54 Hx of Transfusion in last 3 No 09/12/24 10:54 Months Date of Last Transfusion (if within last 3 months) Ever experience any problems No 09/12/24 10:54 with transfusion(s)? Specify any problems Hx of Preganancy in last 3 No 09/12/24 10:54 Months Nurse Filling Out Transfusion LC 09/12/24 10:54 & Questions: Date: 09/12/24 09/12/24 10:54 Time: 12:36 09/12/24 10:54 Patient unable to answer at this time (ie. confused, unrespo /Reproduction History /Reproductive History - cylinder checker: /Reproductive Hx- cylinder checker Hx Now No 09/18/24 01:04 Gestational Age (in weeks): EDC: Hx Hx Para Hx Section SAB No 09/18/24 01:04 Active Medications Active Medications: Current Medications Generic Name Dose Route Start Last Admin Trade Name Freq PRN Reason Stop Dose Admin Amlodipine Besylate 10 mg 09/16/24 10:00 09/17/24 11:42 Amlodipine 10 Mg Tablet PO 10 mg DAILY NANCY Administration Protocol Enoxaparin Sodium 40 mg 09/16/24 22:00 09/17/24 22:58 Enoxaparin 40 Mg/0.4 Ml Syringe SC Not Given BID NANCY Fluoxetine HCl 40 mg 09/12/24 10:54 09/17/24 11:43 Fluoxetine Hcl 40 Mg Capsule PO 40 mg DAILY NANCY Administration Fluticasone Propionate 2 spray 09/15/24 10:00 09/17/24 11:41 Fluticasone 0.05% 1 Dewy Rose Nasal.Sry NASAL 2 spray DAILY NANCY Administration Hydralazine HCl 10 mg 09/16/24 13:16 09/17/24 05:08 Hydralazine 20 Mg/Ml Vial IV 10 mg Q6H PRN PRN Administration SBP>150 Protocol Hydromorphone HCl 0.5 mg 09/16/24 17:38 09/18/24 11:04 Hydromorphone 0.5 Mg/0.5 Ml Syringe IV 0.5 mg Q3H PRN PRN Administration Pain Score 6-10 Sodium Chloride 1,000 mls @ 75 mls/hr 09/12/24 09:15 09/18/24 09:10 IV 75 mls/hr .[id number] NANCY Administration Sodium Chloride 100 mls @ 15 mls/hr 09/12/24 10:55 IV .Q6H40M PRN Saline Flush Potassium Phosphate 40 mm/ 513.3333 mls @ 62.5 mls/hr 09/18/24 07:48 09/18/2508:11 Sodium Chloride IV 09/18/24 16:00 62.5 mls/hr X1 ONE Administration Ipratropium [place] 1 spray 09/12/24 10:54 Ipratropium [place] 0.06% Nasal Dewy Rose NASAL TID PRN PRN allergy symptoms Losartan Potassium 100 mg 09/16/24 10:00 09/17/24 11:41 Losartan Potassium 100 Mg Tablet PO 100 mg DAILY NANCY Administration Protocol Melatonin 10 mg 09/13/24 22:00 09/17/24 22:59 Melatonin 10 Mg Tablet PO 10 mg QHS NANCY Administration Ondansetron HCl 4 mg 09/12/24 11:37 09/18/24 07:39 Ondansetron 4 Mg/2 Ml Vial IV 4 mg Q6H PRN PRN Administration NAUSEA/VOMITING Pantoprazole Sodium 40 mg 09/16/24 10:00 09/17/24 11:43 Pantoprazole Sodium 40 Mg Tablet PO 40 mg DAILY NANCY Administration Polyethylene Glycol 17 gm 09/17/24 08:42 Polyethylene Glycol 3350 17 Gm Packet PO DAILY PRN constipation Senna 1 tablet 09/17/24 10:00 09/17/24 22:59 Senna Tablet PO 1 tablet BID NANCY Administration Sodium Chloride 10 - 40 ml 09/12/24 10:55 09/18/24 11:04 0.9% Saline Lock 10 Ml Syringe IV 10 ml UD PRN Administration SALINE FLUSH Sodium Chloride 2 spray 09/14/24 10:38 09/14/24 18:34 Sodium Chloride 0.65% 1 Dewy Rose Dewy Rose.Btl NASAL 2 spray TID PRN PRN Administration NASAL DRYNESS PFSH Medical History Pancreatitis Hypertension Anxiety Home Medications ?Medication ?Instructions ?Recorded ?Last Taken ?Type fluoxetine 40 mg capsule 40 mg PO DAILY 09/12/24 Unkn own History ipratropium bromide 42 mcg (0.06 1 spray intranasal TI D PRN PRN 09/12/24 Unknown History %) nasal spray allergy symptoms lisinopril 5 mg tablet 5 mg PO DAILY 09/12/24 Unkno wn History Allergy/AdvReac Type Severity Reaction Status Date / Time No Known Allergies Allergy Verified 09/12/24 06:59 Family History no significant family his Surgical History (Updated 09/18/24 @ 15:[address] Garry Howard MD) S/P ERCP Hx of cholecystectomy Social History Smoking Status: Former smoker alcohol intake: current alcohol intake frequency: 0-2 drinks per day substance use type: does not use Review of Systems (Anesthesia) ROS Narrative System reviewed and no additional complaints, except as documented. 09/18/24 1540 risa SALGADO> Date _ Garry Howard MD Cosigner Signature: Date CC: ~ Signed [facility]04-01-2025 [facility] Note Date/Time September 18, 2024 11:5 0am [facility] Medical Records Department [address] [place] [address] Progress Note - Hospitalist 09/18/24 1045 MR#: [id number] Acct: [id number] Name: CASIMIRO LIU Rep #:[id number] : 1980 43 From: Kris drake DO PCP: Dr. Mary Escobar MD Status:ADM IN Location: [place] [address] Reason for Visit Reason for Visit: Diagnoses Elevated white blood cell count, unspecified (09/12/24) Essential (primary) hypertension (09/12/24) Acute pancreatitis without necrosis or infection, unspecified (09/12/24) Subjective Subjective Saw patient at bedside this morning. Patient was laying back comfortably in bedand appears mildly fatigued but similar to yesterday. She noted continued mild abdominal discomfort, similar to yesterday. Plan is for ERCP this afternoon andpatient is looking forward to getting this done. No other acute concerns this morning. Objective Data Objective Data Vital Signs: Vital Signs Temp Pulse Resp BP Pulse Ox O2 Del Method O2 Flow Rate 98.2 F 68 16 133/102 H 93 Room Air 2 09/18/24 07:49 09/18/24 07:49 09/18/24 07:49 09/18/24 07:49 09/18/24 07:49 09/18/24 06:40 09/18/24 02:42 Oxygen Flow Rate (L/min) 2 Oxygen Delivery Method Room Air Weight: 108.6 kg Body Mass Index (BMI) 41.1 Intake & Output: Intake and Output for Last 24 Hours 09/16/24 09/17/24 09/18/24 23:59 23:59 23:59 Intake Total 6920.83 / 6920.83 1200 / 1200 991.25 / 991.25 Output Total 900 / 900 600 / 600 Balance 6920.83 / 6920.83 300 / 300 391.25 / 391.25 Lab / Micro Data 09/18/24 04:05 09/18/24 04:05 Labs: Laboratory Results - last 24 hr 09/17/24 08:51: ESR 46 H, Lactate Dehydrogenase 172, C-React Prot Ext Range 31.40 H, Triglycerides 102, HIV 1&2 Antibody Nonreactive 09/18/24 03:00: Urine Test Negative 09/18/24 04:05: WBC 7.5, RBC 3.89 L, Hgb 10.5 L, Hct 31.9 L, MCV 82.0, MCH 27.0,MCHC 32.9, RDW Std Deviation 40.1, RDW Coeff of Chelsie 13.5, Plt Count 316, MPV 9.6, Sodium 138, Potassium 2.9 L, Chloride 96 L, Carbon Dioxide 28.5, Anion Gap 13, BUN 5, Creatinine 0.36 L, Estim Creat Clear Calc 242.58, Est GFR (MDRD) Non-Af 129, BUN/Creatinine Ratio 12.8, Glucose 158 H, Calcium 9.5, BRIANDA-1 Antibody TNP, SS- A/Ro IgG Antibody TNP, SS-B/La IgG Antibody TNP, Sm (Guerrero) Antibody TNP, DITCHING MACHINE ENGINEER Antibody TNP, Scl-70 Scleroderma Ab TNP, Double Strand DNA Ab TNP, Antichromatin Antibodies TNP, Centromere B Antibody TNP Radiography Diagnostic Testing: Radiology Impression MRCP 09/17/24 06:00 IMPRESSION: Small but abnormal amount of fluid around the pancreas. Moderate bilateral pleural effusions Absent gallbladder. No evidence of choledocholithiasis. Reading Location: [facility] Physical Exam Const alert, oriented x3 and no apparent distress Constitutional Narrative: Middle-age female, class III obesity, mildly fatigued appearing, otherwise laying back comfortably in bed, conversing normally, in no acute distress. Stable. General Appearance: cooperative and comfortable HEENT normocephalic, head/scalp atraumatic, hearing grossly normal bilaterally, nasal mucous membranes and turbinates normal and moist oral mucous membranes Eyes PERRL, EOMs intact bilaterally and conjunctivae normal Neck full ROM Chest inspection of chest normal Resp normal respiratory effort and no use of accessory muscles Resp Narrative: Breathing comfortably on room air at rest. Mild crackles noted in bilateral lung bases, no wheezing noted. Stable. Cardio regular rate, regular rhythm, no murmurs and peripheral pulses 2+ throughout GI GI Narrative: Abdomen with mild to moderate tenderness to palpation diffusely, otherwise soft and nondistended. Stable. Back/Spine normal ROM Extremity normal to inspection, full ROM and no pedal edema Skin no rashes or lesions noted Psych mental status grossly normal Assessment & Plan Assessment/Plan (1) Acute pancreatitis: PLAN: Plan Patient is a 43-year-old female who presented to [facility] ED on 09/12/2024 with abdominal pain. 1. Acute pancreatitis ? GI following. CT abdomen pelvis on admit with findings concerning for pancreatitis. Lipase 1599. No clear cause for pancreatitis. Minimal alcohol use, triglyceride level normal and LFTs fairly unremarkable. Attempted to advance diet to full liquids on 09/16 but patient reported significantly more pain. Repeat CT abdomen pelvis redemonstrated acute/uncomplicated pancreatitis. Lipase level was rechecked and did normalize on 09/16. MRCP on 09/17 showed small but abnormal amount of fluid around the pancreas; otherwise showed absent gallbladder and no evidence of choledocholithiasis. Per GI, planning for ERCP this afternoon for further evaluation. Extensive lab workup sent to rule out additional causes of pancreatitis as well. Appreciate GI recommendations regarding advancement of diet after ERCP. 2. Hepatomegaly ? Diffuse hepatic steatosis with hepatomegaly noted on CT abdomen pelvis on admit. Suspect secondary to fatty liver disease. No inpatient needs, outpatient follow- up. 3. Normocytic anemia ? Hemoglobin has remained stable around 10-11 during hospitalization. No inpatient needs, okay for outpatient follow-up. Chronic medical conditions: ? Class III obesity: BMI 40 on admit. Complicates hospital course, care and prognosis. ? Hypertension: Continue treatment with amlodipine 10 mg daily and losartan 100 mg daily, has had good blood pressure control on this. ? Anxiety/depression: Continue home fluoxetine. ? History of cholecystectomy DVT prophylaxis: Lovenox twice daily CODE STATUS: Full code, verified Expected disposition: Home, TBD Total clinical time spent by myself addressing the patient's medical issues, reviewing all the data, and collaborating with patient's care team: 35 minutes. Charges/Coding Visit Charges Inpatient E&M: 37529 Subs Hosp L2 09/18/24 1150 <Electronically signed by Kris Gibbs DO> Cosigner Signature (if applicable): CC: ~ Signed [facility] Work Phone: 1(560) 789-970604-01-2025 Progress note [facility] Medical Records Department [address] [place] [address] Progress Note - Hospitalist 09/18/24 1045 MR#: [id number] Acct: [id number] Name: CASIMIRO LIU Rep #:[id number] : 1980 43 From: Kris drake DO PCP: Dr. Mary Escobar MD Status:ADM IN Location: [place] [address] Reason for Visit Reason for Visit: Diagnoses Elevated white blood cell count, unspecified (09/12/24) Essential (primary) hypertension (09/12/24) Acute pancreatitis without necrosis or infection, unspecified (09/12/24) Subjective Subjective Saw patient at bedside this morning. Patient was laying back comfortably in bedand appears mildly fatigued but similar to yesterday. She noted continued mild abdominal discomfort, similar to yesterday. Plan is for ERCP this afternoon andpatient is looking forward to getting this done. No other acute concerns this morning. Objective Data Objective Data Vital Signs: Vital Signs Temp Pulse Resp BP Pulse Ox O2 Del Method O2 Flow Rate 98.2 F 68 16 133/102 H 93 Room Air 2 09/18/24 07:49 09/18/24 07:49 09/18/24 07:49 09/18/24 07:49 09/18/24 07:49 09/18/24 06:40 09/18/24 02:42 Oxygen Flow Rate (L/min) 2 Oxygen Delivery Method Room Air Weight: 108.6 kg Body Mass Index (BMI) 41.1 Intake & Output: Intake and Output for Last 24 Hours 09/16/24 09/17/24 09/18/24 23:59 23:59 23:59 Intake Total 6920.83 / 6920.83 1200 / 1200 991.25 / 991.25 Output Total 900 / 900 600 / 600 Balance 6920.83 / 6920.83 300 / 300 391.25 / 391.25 Lab / Micro Data 09/18/24 04:05 09/18/24 04:05 Labs: Laboratory Results - last 24 hr 09/17/24 08:51: ESR 46 H, Lactate Dehydrogenase 172, C-React Prot Ext Range 31.40 H, Triglycerides 102, HIV 1&2 Antibody Nonreactive 09/18/24 03:00: Urine Test Negative 09/18/24 04:05: WBC 7.5, RBC 3.89 L, Hgb 10.5 L, Hct 31.9 L, MCV 82.0, MCH 27.0,MCHC 32.9, RDW Std Deviation 40.1, RDW Coeff of Chelsie 13.5, Plt Count 316, MPV 9.6, Sodium 138, Potassium 2.9 L, Dhcyorhr21 L, Carbon Dioxide 28.5, Anion Gap 13, BUN 5, Creatinine 0.36 L, Estim Creat Clear Calc 242.58, Est GFR (MDRD) Non-Af 129, BUN/Creatinine Ratio 12.8, Glucose 158 H, Calcium 9.5, BRIANDA-1 Antibody TNP, SS-A/Ro IgG Antibody TNP, SS-B/La IgG Antibody TNP, Sm (Guerrero) Antibody TNP, DITCHING MACHINE ENGINEER Antibody TNP, Scl-70 Scleroderma Ab TNP, Double Strand DNA Ab TNP, Antichromatin Antibodies TNP, Centromere B Antibody TNP Radiography Diagnostic Testing: Radiology Impression MRCP 09/17/24 06:00 IMPRESSION: Small but abnormal amount of fluid around the pancreas. Moderate bilateral pleural effusions Absent gallbladder. No evidence of choledocholithiasis. Reading Location: [facility] Physical Exam Const alert, oriented x3 and no apparent distress Constitutional Narrative: Middle-age female, class III obesity, mildly fatigued appearing, otherwise laying back comfortably in bed, conversing normally, in no acute distress. Stable. General Appearance: cooperative and comfortable HEENT normocephalic, head/scalp atraumatic, hearing grossly normal bilaterally, nasal mucous membranes and turbinates normal and moist oral mucous membranes Eyes PERRL, EOMs intact bilaterally and conjunctivae normal Neck full ROM Chest inspection of chest normal Resp normal respiratory effort and no use of accessory muscles Resp Narrative: Breathing comfortably on room air at rest. Mild crackles noted in bilateral lung bases, no wheezingnoted. Stable. Cardio regular rate, regular rhythm, no murmurs and peripheral pulses 2+ throughout GI GI Narrative: Abdomen with mild to moderate tenderness to palpation diffusely, otherwise soft and nondistended. Stable. Back/Spine normal ROM Extremity normal to inspection, full ROM and no pedal edema Skin no rashes or lesions noted Psych mental status grossly normal Assessment & Plan Assessment/Plan (1) Acute pancreatitis: PLAN: Plan Patient is a 43-year-old female who presented to [facility] ED on 09/12/2024 with abdominal pain. 1. Acute pancreatitis ? GI following. CT abdomen pelvis on admit with findings concerning for pancreatitis. Lipase 1599. No clear cause for pancreatitis. Minimal alcohol use, triglyceride level normal and LFTs fairly unremarkable. Attempted to advance diet to full liquids on 09/16 but patient reported significantly more pain. Repeat CT abdomen pelvis redemonstrated acute/uncomplicated pancreatitis. Lipase level was rechecked and did normalize on 09/16. MRCP on 09/17 showed small but abnormal amount of fluid around the pancreas; otherwise showed absent gallbladder and no evidence of choledocholithiasis. Per GI, planning for ERCP this afternoon for further evaluation. Extensive lab workup sent to rule out additional causes of pancreatitis as well. Appreciate GI recommendations regarding advancement of diet after ERCP. 2. Hepatomegaly ? Diffuse hepatic steatosis with hepatomegaly noted on CT abdomen pelvis on admit. Suspect secondary to fatty liver disease. No inpatient needs, outpatient follow-up. 3. Normocytic anemia ? Hemoglobin has remained stable around 10-11 during hospitalization. No inpatient needs, okay for outpatient follow-up. Chronic medical conditions: ? Class III obesity: BMI 40 on admit. Complicates hospital course, care and prognosis. ? Hypertension: Continue treatment with amlodipine 10 mg daily and losartan 100 mg daily, has had good blood pressure control on this. ? Anxiety/depression: Continue home fluoxetine. ? History of cholecystectomy DVT prophylaxis: Lovenox twice daily CODE STATUS: Full code, verified Expected disposition: Home, TBD Total clinical time spent by myself addressing the patient's medical issues, reviewing all the data, and collaborating with patient's care team: 35 minutes. Charges/Coding Visit Charges Inpatient E&M: 30085 Subs Hosp L2 09/18/24 1150 Cosigner Signature (if applicable): CC: ~ Signed [facility]04-01-2025 Telephone encounter Note* Telephone Encounter - Hollie Greene - 09/18/2024 9:12 AM EDT Patient did not arrive for her scheduled appointment on 09/17/24. A missed appointment letter sent through [employer]. [facility]04-01-2025 Miscellaneous Notes* Telephone Encounter - Hollie Greene - 09/18/2024 9:12 AM EDT Patient did not arrive for her scheduled appointment on 09/17/24. A missed appointment letter sent through [employer]. [facility] Progress note Author Kris Gibbs [facility] Note Date/Time September 17, 2024 6:0 7pm [facility] Medical Records Department [address] [place] [address] Progress Note - Hospitalist 09/17/24 1214 MR#: [id number] Acct: [id number] Name: CASIMIRO LIU Rep #:[id number] : 1980 43 From: Kris drake DO PCP: Dr. Mary Escobar MD Status:ADM [facility] Reason for Visit Reason for Visit: Diagnoses Elevated white blood cell count, unspecified (09/12/24) Essential (primary) hypertension (09/12/24) Acute pancreatitis without necrosis or infection, unspecified (09/12/24) Subjective Subjective Saw patient at bedside this morning. Patient had gotten back from her MRCP about 30 minutes prior to when I saw her. She tolerated the MRCP without issue. Continued to have abdominal pain today, similar to yesterday. Does not have any appetite this morning. Denies any nausea or episodes of vomiting today. She is concerned about trying to restart a diet again given that she did not do well with it last time. No other new concerns today. Objective Data Objective Data Vital Signs: Vital Signs Temp Pulse Resp BP Pulse Ox O2 Del Method O2 Flow Rate 98.1 F 78 16 147/96 H 93 Room Air 2 09/17/24 08:01 09/17/24 08:01 09/17/24 08:01 09/17/24 08:01 09/17/24 08:01 09/17/24 08:05 09/16/24 22:00 Oxygen Flow Rate (L/min) 2 Oxygen Delivery Method Room Air Weight: 108.2 kg Body Mass Index (BMI) 40.7 Intake & Output: Intake and Output for Last 24 Hours 09/15/24 09/16/24 09/17/24 23:59 23:59 23:59 Intake Total 5887.5 / 5887.5 6920.83 / 6920.83 Balance 5887.5 / 5887.5 6920.83 / 6920.83 Lab / Micro Data 09/17/24 05:57 09/17/24 05:57 Labs: Laboratory Results - last 24 hr 09/17/24 05:57: WBC 8.0, RBC 4.05 L, Hgb 10.9 L, Hct 33.6 L, MCV 83.0, MCH 26.9 L, MCHC 32.4, RDW Std Deviation 42.0, RDW Coeff of Chelsie 13.9, Plt Count 326, MPV 10.2, Immature Gran % (Auto) 0.900, Neut % (Auto) 72.1 H, Lymph % (Auto) 16.9 L,Tarrant % (Auto) 6.5, Eos % (Auto) 3.1, Baso % (Auto) 0.5, Absolute Neuts (auto) 5.7, Absolute Lymphs (auto) 1.34, Nucleated RBC % 0, Sodium 137, Potassium 3.0 L, Chloride 100, Carbon Dioxide 25.4, Anion Gap 12, BUN 4, Creatinine 0.29 L, Estim Creat Clear Calc 300.50 H, Est GFR (MDRD) Non-Af 136, BUN/Creatinine Ratio 13.1, Glucose 102 H, Calcium 9.2, Phosphorus 2.2 L, Magnesium 1.7, Total Bilirubin 0.30, AST 16, ALT 15, Alkaline Phosphatase 90, Total Protein 5.8 L, Albumin 3.2 L, Globulin 2.6, Albumin/Globulin Ratio 1.2 Radiography Diagnostic Testing: Radiology Impression Abdomen/Pelvis CT 09/16/24 10:01 IMPRESSION: 1. Redemonstration of acute interstitial edematous pancreatitis (also known as acute or uncomplicated pancreatitis). No evidence of necrosis, vascular involvement or abscess. 2. Development of small volume abdominopelvic ascites, moderate-sized bilateral pleural effusions and body wall edema. 3. Hepatosplenomegaly with diffuse hepatic steatosis. Reading Location: [facility] MRCP 09/17/24 06:00 IMPRESSION: Small but abnormal amount of fluid around the pancreas. Moderate bilateral pleural effusions Absent gallbladder. No evidence of choledocholithiasis. Reading Location[facility] Orbit X-Ray 09/17/24 09:30 IMPRESSION: No radiopaque foreign body is seen. Cleared for MRI scanning. Reading Location: [facility] Physical Exam Const alert, oriented x3 and no apparent distress Constitutional Narrative: Middle-age female, class III obesity, mildly fatigued appearing, otherwise laying back comfortably in bed, conversing normally, in no acute distress. General Appearance: cooperative and comfortable HEENT normocephalic, head/scalp atraumatic, hearing grossly normal bilaterally, nasal mucous membranes and turbinates normal and moist oral mucous membranes Eyes PERRL, EOMs intact bilaterally and conjunctivae normal Neck full ROM Chest inspection of chest normal Resp normal respiratory effort and no use of accessory muscles Resp Narrative: Breathing comfortably on room air at rest. Mild crackles noted in bilateral lung bases, no wheezing noted. Cardio regular rate, regular rhythm, no murmurs and peripheral pulses 2+ throughout GI GI Narrative: Abdomen with mild to moderate tenderness to palpation diffusely, otherwise soft and nondistended. Back/Spine normal ROM Extremity normal to inspection, full ROM and no pedal edema Skin no rashes or lesions noted Psych mental status grossly normal Assessment & Plan Assessment/Plan (1) Acute pancreatitis: PLAN: Plan Patient is a 43-year-old female who presented to [facility] ED on 09/12/2024 with abdominal pain. 1. Acute pancreatitis ? GI consulted. CT abdomen pelvis on admit with findings concerning for pancreatitis. Lipase 1599. No clear cause for pancreatitis. Minimal alcohol use, triglyceride level normal and LFTs fairly unremarkable. Attempted to advance diet to full liquids on 09/16 the patient reported significantly more pain. Repeat CT abdomen pelvis redemonstrated acute/uncomplicated pancreatitis. Lipase level was rechecked and did normalize on 09/16. MRCP on 09/17 showed small but abnormal amount of fluid around the pancreas; otherwise showed absent gallbladder and no evidence of choledocholithiasis. Treated with heavy IV fluidresuscitation during admission but has developed some degree of volume overload as evidenced by small bilateral pleural effusions and ascites on CT on 09/16. Given 1 dose of IV Lasix on 09/17 and will hold on further IV fluids for now. Will maintain n.p.o. status for now and appreciate further GI recommendations. 2. Hepatomegaly ? Diffuse hepatic steatosis with hepatomegaly noted on CT abdomen pelvis on admit. Suspect secondary to fatty liver disease. No inpatient needs, outpatient follow- up. 3. Normocytic anemia ? Hemoglobin has remained stable around 10-11 during hospitalization. No inpatient needs, okay for outpatient follow-up. Chronic medical conditions: ? Class III obesity: BMI 40 on admit. Complicates hospital course, care and prognosis. ? Hypertension: Continue treatment with amlodipine 10 mg daily and losartan 100 mg daily, has had good blood pressure control on this. ? Anxiety/depression: Continue home fluoxetine. ? History of cholecystectomy DVT prophylaxis: Lovenox twice daily CODE STATUS: Full code, verified Expected disposition: Home, TBD Total clinical time spent by myself addressing the patient's medical issues, reviewing all the data, and collaborating with patient's care team: 35 minutes. Charges/Coding Visit Charges Inpatient E&M: 36466 Subs Hosp L2 09/17/24 1807 <Electronically signed by Kris Gibbs DO> Cosigner Signature (if applicable): CC: ~ Signed [facility] Work Phone: 1(101) 104-764303-31-2025 Progress note [facility] Medical Records Department [address] [place] [address] Progress Note - Hospitalist 09/17/24 1214 MR#: [id number] Acct: [id number] Name: CASIMIRO LIU Rep #:[id number] : 1980 43 From: Kris drake DO PCP: Dr. Mary Escobar MD Status:ADM IN Location: [place] [address] Reason for Visit Reason for Visit: Diagnoses Elevated white blood cell count, unspecified (09/12/24) Essential (primary) hypertension (09/12/24) Acute pancreatitis without necrosis or infection, unspecified (09/12/24) Subjective Subjective Saw patient at bedside this morning. Patient had gotten back from her MRCP about 30 minutes prior to when I saw her. She tolerated the MRCP without issue. Continued to have abdominal pain today, similar to yesterday. Does not have any appetite this morning. Denies any nausea or episodes of vomitingtoday. She is concerned about trying to restart a diet again given that she did not do well with itlast time. No other new concerns today. Objective Data Objective Data Vital Signs: Vital Signs Temp Pulse Resp BP Pulse Ox O2 Del Method O2 Flow Rate 98.1 F 78 16 147/96 H 93 Room Air 2 09/17/24 08:01 09/17/24 08:01 09/17/24 08:01 09/17/24 08:01 09/17/24 08:01 09/17/24 08:05 09/16/24 22:00 Oxygen Flow Rate (L/min) 2 Oxygen Delivery Method Room Air Weight: 108.2 kg Body Mass Index (BMI) 40.7 Intake & Output: Intake and Output for Last 24 Hours 09/15/24 09/16/24 09/17/24 23:59 23:59 23:59 Intake Total 5887.5 / 5887.5 6920.83 / 6920.83 Balance 5887.5 / 5887.5 6920.83 / 6920.83 Lab / Micro Data 09/17/24 05:57 09/17/24 05:57 Labs: Laboratory Results - last 24 hr 09/17/24 05:57: WBC 8.0, RBC 4.05 L, Hgb 10.9 L, Hct 33.6 L, MCV 83.0, MCH 26.9 L, MCHC 32.4, RDW Std Deviation 42.0, RDW Coeff of Chelsie 13.9, Plt Count 326, MPV 10.2, Immature Gran % (Auto) 0.900, Neut % (Auto) 72.1 H, Lymph % (Auto) 16.9 L,Tarrant % (Auto) 6.5, Eos % (Auto) 3.1, Baso % (Auto) 0.5, Absolute Neuts (auto) 5.7, Absolute Lymphs (auto) 1.34, Nucleated RBC % 0, Sodium 137, Potassium 3.0 L,Chloride 100, Carbon Dioxide 25.4, Anion Gap 12, BUN 4, Creatinine 0.29 L, Estim Creat Clear Calc 300.50 H, Est GFR (MDRD) Non-Af 136, BUN/Creatinine Ratio 13.1, Glucose 102 H, Calcium 9.2, Phosphorus 2.2 L, Magnesium 1.7, Total Bilirubin 0.30, AST 16, ALT 15, Alkaline Phosphatase 90, Total Protein5.8 L, Albumin 3.2 L, Globulin 2.6, Albumin/Globulin Ratio 1.2 Radiography Diagnostic Testing: Radiology Impression Abdomen/Pelvis CT 09/16/24 10:01 IMPRESSION: 1. Redemonstration of acute interstitial edematous pancreatitis (also known as acute or uncomplicated pancreatitis). No evidence of necrosis, vascular involvement or abscess. 2. Development of small volume abdominopelvic ascites, moderate-sized bilateral pleural effusions and body wall edema. 3. Hepatosplenomegaly with diffuse hepatic steatosis. Reading Location: [id number] MRCP 09/17/24 06:00 IMPRESSION: Small but abnormal amount of fluid around the pancreas. Moderate bilateral pleural effusions Absent gallbladder. No evidence of choledocholithiasis. Reading Location: [facility] Orbit X-Ray 09/17/24 09:30 IMPRESSION: No radiopaque foreign body is seen. Cleared for MRI scanning. Reading Location[facility] Physical Exam Const alert, oriented x3 and no apparent distress Constitutional Narrative: Middle-age female, class III obesity, mildly fatigued appearing, otherwise laying back comfortably in bed, conversing normally, in no acute distress. General Appearance: cooperative and comfortable HEENT normocephalic, head/scalp atraumatic, hearing grossly normal bilaterally, nasal mucous membranes and turbinates normal and moist oral mucous membranes Eyes PERRL, EOMs intact bilaterally and conjunctivae normal Neck full ROM Chest inspection of chest normal Resp normal respiratory effort and no use of accessory muscles Resp Narrative: Breathing comfortably on room air at rest. Mild crackles noted in bilateral lung bases, no wheezingnoted. Cardio regular rate, regular rhythm, no murmurs and peripheral pulses 2+ throughout GI GI Narrative: Abdomen with mild to moderate tenderness to palpation diffusely, otherwise soft and nondistended. Back/Spine normal ROM Extremity normal to inspection, full ROM and no pedal edema Skin no rashes or lesions noted Psych mental status grossly normal Assessment & Plan Assessment/Plan (1) Acute pancreatitis: PLAN: Plan Patient is a 43-year-old female who presented to [facility] ED on 09/12/2024 with abdominal pain. 1. Acute pancreatitis ? GI consulted. CT abdomen pelvis on admit with findings concerning for pancreatitis. Lipase 1599. No clear cause for pancreatitis. Minimal alcohol use, triglyceride level normal and LFTs fairly unremarkable. Attempted to advance diet to full liquids on 09/16 the patient reported significantly more pain. Repeat CT abdomen pelvis redemonstrated acute/uncomplicated pancreatitis. Lipase level was rechecked and did normalize on 09/16. MRCP on 09/17 showed small but abnormal amount of fluid around the pancreas; otherwise showed absent gallbladder and no evidence of choledocholithiasis. Treated with heavy IV fluidresuscitation during admission but has developed some degree of volume overload as evidenced by small bilateral pleural effusions and ascites on CT on 09/16. Given 1 dose of IV Lasix on 09/17 and will hold on further IV fluids for now. Will maintain n.p.o. status for now and appreciate further GI recommendations. 2. Hepatomegaly ? Diffuse hepatic steatosis with hepatomegaly noted on CT abdomen pelvis on admit. Suspect secondary to fatty liver disease. No inpatient needs, outpatient follow-up. 3. Normocytic anemia ? Hemoglobin has remained stable around 10-11 during hospitalization. No inpatient needs, okay for outpatient follow-up. Chronic medical conditions: ? Class III obesity: BMI 40 on admit. Complicates hospital course, care and prognosis. ? Hypertension: Continue treatment with amlodipine 10 mg daily and losartan 100 mg daily, has had good blood pressure control on this. ? Anxiety/depression: Continue home fluoxetine. ? History of cholecystectomy DVT prophylaxis: Lovenox twice daily CODE STATUS: Full code, verified Expected disposition: Home, TBD Total clinical time spent by myself addressing the patient's medical issues, reviewing all the data, and collaborating with patient's care team: 35 minutes. Charges/Coding Visit Charges Inpatient E&M: 22411 Subs Hosp L2 09/17/24 1807 Cosigner Signature (if applicable): CC: ~ Signed [facility]03-31-2025 Radiology Diagnostic study note [facility] Imaging Services [address] [place] [address] [id number] Orbits for Foreign Body MR#: [id number] Acct: [id number] Name: CASIMIRO LIU Rep #: [id number] : 1980 F 43 From: Martin Hernandez MD PCP: Dr. Mary Escobar MD Status: ADM IN Study:Orbits for Foreign Body Date of Exam: 09/17/24 Exam# [id number] Ordering Dr: Judy Gibbs DO PROCEDURE: ORBITS FOR FOREIGN BODY 09/17/2024 REASON FOR EXAM: HX METAL TO EYE,,PRE MRI TECHNIQUE: 2 view(s) of the facial bones COMPARISON: None FINDINGS: No radiopaque foreign body is seen. Cleared for MRI scanning. RAD/Orbits for Foreign Body IMPRESSION: No radiopaque foreign body is seen. Cleared for MRI scanning. Reading Location: [facility] CC: Dr. Mary Escobar MD; Dr. Charlotte Gibbs DO ~ Comic Book Artist: Signed [facility]03-30-2025 Radiology Diagnostic study note [facility] Imaging Services [address] [place], [place] [id number] Abdomen/Pelvis WITH Contrast MR#: [id number] Acct: [id number] Name: CASIMIRO LIU Rep #: [id number] : 1980 F 43 From: Tatiana Ruano MD PCP: Dr. Mary Escobar MD Status: ADM IN Study:Abdomen/Pelvis WITH Contrast Date of Ex am: 09/16/24 Exam# [id number] Ordering Dr: Judy Gibbs DO PROCEDURE: ABDOMEN/PELVIS WITH CONTRAST 09/16/2024 REASON FOR EXAM: 43-year-old female, epigastric/left upper quadrant abdominal pain, history of pancreatitis with improving lipase. TECHNIQUE: Abdomen and pelvis CT with intravenous contrast. Coronal and Sagittal reconstruction series were provided. PATIENT PREPARATION: Per protocol ORAL CONTRAST TYPE: None. CONTRAST: Isovue 370 VOLUME: 100ML One or more dose reduction techniques were used (e.g., Automated exposure control, adjustment of the mA and/or kV according to patient size, use of iterative reconstruction technique. RADIATION DOSE SUMMARY: CTDlvol: 24 mGy DLP: 1300 mGycm COMPARISON: CT abdomen pelvis 09/12/2024. FINDINGS: Lung bases: Development of moderate-sized bilateral pleural effusions with adjacent atelectasis. The heart is normal in size. Liver: Hepatomegaly with probable diffuse hepatic steatosis. Focal fatty sparing of segment 4. The major portal veins are patent. Minimal intrahepatic biliary ductal dilation Gallbladder: Prior cholecystectomy. Spleen: Moderate splenomegaly. Pancreas: Diffuse pancreatic edema with uniform parenchymal hypoenhancement. Moderate associated fat stranding and edema. No discrete peripancreatic fluid collection or rim enhancing fluid collection. No obvious splenic pseudoaneurysm visualized on venous contrast examination. The splenic vein is grossly patent. Adrenals: Unremarkable. Kidneys: No hydronephrosis or nephrolithiasis. Mild bilateral perinephric stranding. Bladder: Mildly distended and unremarkable. Reproductive Organs: Lobular uterus compatible with uterine fibroids. Bowel: Retained oral contrast material opacifies the distal small bowel and colon. The bowel loops are nondilated. Normal appendix. No pneumoperitoneum. Development of small volume ascites within the bilateral upper quadrants and dependent most portions of the peritoneal cavity. Lymph nodes: Prominent retroperitoneal and central mesenteric nodes, likely reactive. Vasculature: The abdominal aorta and IVC are normal. Bones/soft tissues: Development of moderate diffuse body wall edema. Ventral abdominal subcutaneousair, likely from prior injection site. No aggressive osseous lesions. CT/Abdomen/Pelvis WITH Contrast IMPRESSION: 1. Redemonstration of acute interstitial edematous pancreatitis (also known as acute or uncomplicated pancreatitis). No evidence of necrosis, vascular involvement or abscess. 2. Development of small volume abdominopelvic ascites, moderate-sized bilateral pleural effusions and body wall edema. 3. Hepatosplenomegaly with diffuse hepatic steatosis. Reading Location: [id number] CC: Dr. Mary Escobar MD; Dr. Charlotte Gibbs DO ~ Comic Book Artist: Signed [facility]03-30-2025 Progress note Author Charlotte Gibbs [facility] Note Date/Time September 16, 2024 1:1 9pm [facility] Medical Records Department [address] [place] [address] Progress Note - Hospitalist 09/16/24 1309 MR#: [id number] Acct: [id number] Name: CASIMIRO LIU Rep #:[id number] : 1980 43 From: Charlotte Gibbs DO PCP: Dr. Mary Escobar MD Status:ADM [facility] Reason for Visit Reason for Visit: Abdominal pain Subjective Subjective Patient states she did well with clears yesterday and we advance to full's today. She states she falls and is now having left upper quadrant pain. Lipaseis normalized. We will check a stat CT of her abdomen pelvis with p.o. and IV contrast. Objective Data Objective Data Vital Signs: Vital Signs Temp Pulse Resp BP Pulse Ox O2 Del Method 98.0 F 81 18 160/109 H 96 Room Air 09/16/24 09:58 09/16/24 09:58 09/16/24 09:58 09/16/24 09:58 09/16/24 09:58 09/16/24 09:58 Oxygen Delivery Method Room Air Weight: 107.7 kg Body Mass Index (BMI) 40.7 Intake & Output: Intake and Output for Last 24 Hours 09/14/24 09/15/24 09/16/24 23:59 23:59 23:59 Intake Total 6175.83 / 6175.83 5887.5 / 5887.5 3000 / 3000 Balance 6175.83 / 6175.83 5887.5 / 5887.5 3000 / 3000 Lab / Micro Data 09/16/24 05:00 09/16/24 05:00 Labs: Laboratory Results - last 24 hr 09/16/24 05:00: WBC 9.8, RBC 3.88 L, Hgb 10.5 L, Hct 33.3 L, MCV 85.8, MCH 27.1,MCHC 31.5 L, RDW Std Deviation 45.6 H, RDW Coeff of Chelsie 14.6, Plt Count 318, MPV10.7, Immature Gran % (Auto) 0.800, Neut % (Auto) 80.1 H, Lymph % (Auto) 12.2 L,Tarrant % (Auto) 5.5, Eos % (Auto) 1.0, Baso % (Auto) 0.4, Absolute Neuts (auto) 7.8 H, Absolute Lymphs (auto) 1.19, Nucleated RBC % 0, Sodium 138, Potassium 3.4, Chloride 109 H, Carbon Dioxide 20.2 L, Anion Gap 10, BUN 15, Creatinine 0.40 L, Estim Creat Clear Calc 217.29, Est GFR (MDRD) Non-Af 126, BUN/CreatinineRatio 37.6 H, Glucose 134 H, Calcium 9.0, Total Bilirubin 0.22, AST 17, ALT 18, Alkaline Phosphatase 82, Total Protein 5.8 L, Albumin 3.1 L, Globulin 2.8, Albumin/Globulin Ratio 1.1, Lipase 22 Physical Exam Const alert, oriented x3, no apparent distress and well nourished; Negative for average body habitus or healthy appearing Constitutional Narrative: Obese, middle-aged, white female, lying in bed watching television, appears comfortable, nontoxic General Appearance: cooperative HEENT normocephalic, head/scalp atraumatic and moist oral mucous membranes Resp normal respiratory effort, no retractions, no use of accessory muscles and clearto auscultation bilaterally Auscultation: Negative for rales, rhonchi or wheezes Cardio regular rate, regular rhythm, S1 normal heart sound, S2 normal heart sound, no murmurs, no rub, no gallops and no clicks GI normal to inspection, nondistended, normoactive bowel sounds and soft to palpation GI Narrative: Tenderness today predominantly in the left upper quadrant with minimal tenderness in the epigastrium Extremity no clubbing, cyanosis or edema Extremity Narrative: Pedal and radial pulses are 2+ Neuro oriented x3, moves all extremities and no focal motor deficits Speech: speech normal Psych affect normal Psych Narrative: Calm, eye contact is good, patient interacts appropriately Assessment & Plan Assessment/Plan (1) Acute pancreatitis: (2) Hypertension: (3) Leukocytosis: PLAN: Plan Acute pancreatitis -Trying to advance to full liquids and patient was complaining of more pain -Lipase is normalized -Clinically this does not quite make sense--> will check repeat CT of the abdomen pelvis with oral and IV contrast -Will consider MRCP tomorrow depending on findings -As needed pain medication -Continue aggressive IV fluids with 250 cc an hour of normal saline for now until repeat CT is resulted -Antiemetics as needed -patient had an MRI/MRCP 2 years ago when she had a pancreatitis attack in [place] it was benign per her report -Will have her follow-up as an outpatient with GI after discharge for furtherworkup -Imaging consistent with pancreatitis but no masses or nodules are noted Leukocytosis -Resolved but still left shift however it is trending down -No signs of infection -Will trend Acute anemia -Highly suspect dilutional as patient is getting 250 cc of IV fluids per hour -Counts remain stabilized between 10 and 11 -Will continue to monitor -No signs of active bleeding -Patient is hemodynamically stable Hypertension -Patient appears to have a history of hypertension and reportedly was dischargedon more medications than she is currently on -Start losartan 100 mg -Add amlodipine 10 mg -discontinue scheduled hydralazine and transition to IV as needed hydralazine -Monitor blood pressure and treat accordingly Hepatomegaly -Suspect nonalcoholic fatty liver disease -Recommend weight loss -Outpatient GI referral after discharge Anxiety/depression -Continue home fluoxetine Obesity -BMI 40.8 -Recommend weight loss -Complicates treatment, prognosis, outcomes DVT prophylaxis -Lovenox subcu twice daily encourage mobility CODE STATUS -Full code Charges/Coding Visit Charges Inpatient E&M: 70898 Subs Hosp L2 09/16/24 1319 <Electronically signed by Charlotte Gibbs DO> Cosigner Signature (if applicable): CC: ~ Signed [facility] Work Phone: 1(865) 128-476903-30-2025 Progress note [facility] Medical Records Department [address] [place] [address] Progress Note - Hospitalist 09/16/24 1309 MR#: [id number] Acct: [id number] Name: CASIMIRO LIU Rep #:[id number] : 1980 43 From: Charlotte Gibbs DO PCP: Dr. Mary Escobar MD Status:ADM IN Location: [place] [address] Reason for Visit Reason for Visit: Abdominal pain Subjective Subjective Patient states she did well with clears yesterday and we advance to full's today. She states she falls and is now having left upper quadrant pain. Lipaseis normalized. We will check a stat CT of her abdomen pelvis with p.o. and IV contrast. Objective Data Objective Data Vital Signs: Vital Signs Temp Pulse Resp BP Pulse Ox O2 Del Method 98.0 F 81 18 160/109 H 96 Room Air 09/16/24 09:58 09/16/24 09:58 09/16/24 09:58 09/16/24 09:58 09/16/24 09:58 09/16/24 09:58 Oxygen Delivery Method Room Air Weight: 107.7 kg Body Mass Index (BMI) 40.7 Intake & Output: Intake and Output for Last 24 Hours 09/14/24 09/15/24 09/16/24 23:59 23:59 23:59 Intake Total 6175.83 / 6175.83 5887.5 / 5887.5 3000 / 3000 Balance 6175.83 / 6175.83 5887.5 / 5887.5 3000 / 3000 Lab / Micro Data 09/16/24 05:00 09/16/24 05:00 Labs: Laboratory Results - last 24 hr 09/16/24 05:00: WBC 9.8, RBC 3.88 L, Hgb 10.5 L, Hct 33.3 L, MCV 85.8, MCH 27.1,MCHC 31.5 L, RDW Std Deviation 45.6 H, RDW Coeff of Chelsie 14.6, Plt Count 318, MPV10.7, Immature Gran % (Auto) 0.800, Neut % (Auto) 80.1 H, Lymph % (Auto) 12.2 L,Tarrant % (Auto) 5.5, Eos % (Auto) 1.0, Baso % (Auto) 0.4, Absolute Neuts (auto) 7.8 H, Absolute Lymphs (auto) 1.19, Nucleated RBC % 0, Sodium 138, Potassium 3.4,Chloride 109 H, Carbon Dioxide 20.2 L, Anion Gap 10, BUN 15, Creatinine 0.40 L, Estim Creat Clear Calc 217.29, Est GFR (MDRD) Non-Af 126, BUN/CreatinineRatio 37.6 H, Glucose 134 H, Calcium 9.0, TotalBilirubin 0.22, AST 17, ALT 18, Alkaline Phosphatase 82, Total Protein 5.8 L, Albumin 3.1 L, Globuli n 2.8, Albumin/Globulin Ratio 1.1, Lipase 22 Physical Exam Const alert, oriented x3, no apparent distress and well nourished; Negative for average body habitus or healthy appearing Constitutional Narrative: Obese, middle-aged, white female, lying in bed watching television, appears comfortable, nontoxic General Appearance: cooperative HEENT normocephalic, head/scalp atraumatic and moist oral mucous membranes Resp normal respiratory effort, no retractions, no use of accessory muscles and clearto auscultation bilaterally Auscultation: Negative for rales, rhonchi or wheezes Cardio regular rate, regular rhythm, S1 normal heart sound, S2 normal heart sound, no murmurs, no rub, no gallops and no clicks GI normal to inspection, nondistended, normoactive bowel sounds and soft to palpation GI Narrative: Tenderness today predominantly in the left upper quadrant with minimal tenderness in the epigastrium Extremity no clubbing, cyanosis or edema Extremity Narrative: Pedal and radial pulses are 2+ Neuro oriented x3, moves all extremities and no focal motor deficits Speech: speech normal Psych affect normal Psych Narrative: Calm, eye contact is good, patient interacts appropriately Assessment & Plan Assessment/Plan (1) Acute pancreatitis: (2) Hypertension: (3) Leukocytosis: PLAN: Plan Acute pancreatitis -Trying to advance to full liquids and patient was complaining of more pain -Lipase is normalized -Clinically this does not quite make sense--> will check repeat CT of the abdomen pelvis with oral and IV contrast -Will consider MRCP tomorrow depending on findings -As needed pain medication -Continue aggressive IV fluids with 250 cc an hour of normal saline for now until repeat CT is resulted -Antiemetics as needed -patient had an MRI/MRCP 2 years ago when she had a pancreatitis attack in [facility] it was benign per her report -Will have her follow-up as an outpatient with GI after discharge for furtherworkup -Imaging consistent with pancreatitis but no masses or nodules are noted Leukocytosis -Resolved but still left shift however it is trending down -No signs of infection -Will trend Acute anemia -Highly suspect dilutional as patient is getting 250 cc of IV fluids per hour -Counts remain stabilized between 10 and 11 -Will continue to monitor -No signs of active bleeding -Patient is hemodynamically stable Hypertension -Patient appears to have a history of hypertension and reportedly was dischargedon more medicationsthan she is currently on -Start losartan 100 mg -Add amlodipine 10 mg -discontinue scheduled hydralazine and transition to IV as needed hydralazine -Monitor blood pressure and treat accordingly Hepatomegaly -Suspect nonalcoholic fatty liver disease -Recommend weight loss -Outpatient GI referral after discharge Anxiety/depression -Continue home fluoxetine Obesity -BMI 40.8 -Recommend weight loss -Complicates treatment, prognosis, outcomes DVT prophylaxis -Lovenox subcu twice daily encourage mobility CODE STATUS -Full code Charges/Coding Visit Charges Inpatient E&M: 30745 Subs Hosp L2 09/16/24 1319 Cosigner Signature (if applicable): CC: ~ Signed [facility]03-29-2025 Progress note Author Charlotte Gibbs [facility] Note Date/Time September 15, 2024 2:2 9pm [facility] Medical Records Department [address] [place] [address] Progress Note - Hospitalist 09/15/24 0904 MR#: [id number] Acct: [id number] Name: CASIMIRO LIU Rep #:[id number] : 1980 43 From: Charlotte Gibbs DO PCP: Dr. Mary Escobar MD Status:ADM IN Location: [place] [address] Reason for Visit Reason for Visit: Abdominal pain/nausea Subjective Subjective Overall she is feeling better. Lipase is completely normalized. Will try clearliquids today and transition pain medication to p.o. With clears will repeat lipase in the morning to make sure that her lipase remains normalized. Objective Data Objective Data Vital Signs: Vital Signs Temp Pulse Resp BP Pulse Ox O2 Del Method 98.7 F 87 18 165/104 H 96 Room Air 09/15/24 04:07 09/15/24 06:27 09/15/24 04:07 09/15/24 04:07 09/15/24 04:07 09/15/24 08:43 Oxygen Delivery Method Room Air Weight: 107.7 kg Body Mass Index (BMI) 40.7 Intake & Output: Intake and Output for Last 24 Hours 09/13/24 09/14/24 09/15/24 23:59 23:59 23:59 Intake Total 5941.67 / 6061.67 6175.83 / 6175.83 1999 Output Total 0 / 0 Balance 5941.67 / 6061.67 6175.83 / 6175.83 1999 Lab / Micro Data 09/15/24 04:57 09/15/24 04:57 Labs: Laboratory Results - last 24 hr 09/14/24 07:35: Sodium 137, Potassium 4.1, Chloride 108, Carbon Dioxide 18.7 L, Anion Gap 10, BUN 14, Creatinine 0.39 L, Estim Creat Clear Calc 211.94, Est GFR (MDRD) Non-Af 127, BUN/Creatinine Ratio 36.8 H, Glucose 104 H, Calcium 9.1, Total Bilirubin 0.41, AST 17, ALT 21, Alkaline Phosphatase 90, Total Protein 6.2, Albumin 3.6, Globulin 2.5, Albumin/Globulin Ratio 1.4 09/15/24 04:57: WBC 13.0 H, RBC 3.81 L, Hgb 10.3 L, Hct 33.0 L, MCV 86.6, MCH 27.0, MCHC 31.2 L, RDW Std Deviation 46.5 H, RDW Coeff of Chelsie 14.6, Plt Count 253, MPV 10.2, Immature Gran % (Auto) 1.100 H, Neut % (Auto) 87.2 H, Lymph % (Auto) 6.6 L, Tarrant % (Auto) 4.7, Eos % (Auto) 0.2, Baso % (Auto) 0.2, Absolute Neuts (auto) 11.3 H, Absolute Lymphs (auto) 0.85, Nucleated RBC % 0, Sodium 138,Potassium 3.9, Chloride 109 H, Carbon Dioxide 19.1 L, Anion Gap 10, BUN 17, Creatinine 0.38 L, Estim Creat Clear Calc 217.52, Est GFR (MDRD) Non-Af 127, BUN/Creatinine Ratio 44.2 H, Glucose 103 H, Calcium 9.1, Lipase 31 Physical Exam Const alert, oriented x3, no apparent distress and well nourished; Negative for average body habitus or healthy appearing Constitutional Narrative: Obese, middle-aged, white female, lying in bed, appears comfortable, nontoxic General Appearance: cooperative HEENT normocephalic, head/scalp atraumatic and moist oral mucous membranes Resp normal respiratory effort, no retractions, no use of accessory muscles and clearto auscultation bilaterally Auscultation: Negative for rales, rhonchi or wheezes Cardio regular rate, regular rhythm, S1 normal heart sound, S2 normal heart sound, no murmurs, no rub, no gallops and no clicks GI normal to inspection, nondistended, normoactive bowel sounds and soft to palpation GI Narrative: Still tenderness in the epigastrium and the left upper quadrant radiating to theleft flank area seems to be improved with deeper palpation, protuberant abdomen Extremity no clubbing, cyanosis or edema Extremity Narrative: Pedal and radial pulses are 2+ Neuro oriented x3, moves all extremities and no focal motor deficits Speech: speech normal Psych affect normal Psych Narrative: Calm, eye contact is good, patient interacts appropriately Assessment & Plan Assessment/Plan (1) Acute pancreatitis: (2) Hypertension: (3) Leukocytosis: PLAN: Plan Acute pancreatitis -Continue n.p.o. with sips and chips sparingly -As needed pain medication -Continue aggressive IV fluids with 250 cc an hour of normal saline -Antiemetics as needed -Lipase is normal -Will try clear liquid diet only today and repeat lipase in a.m. -Consider MRCP if pain is persistent -Could consider steroid therapy tomorrow if still persistently painful -patient had an MRI/MRCP 2 years ago when she had a pancreatitis attack in [place] it was benign per her report -Will have her follow-up as an outpatient with GI after discharge for furtherworkup -Imaging consistent with pancreatitis but no masses or nodules are noted Leukocytosis -Trending down -No signs of infection -Will trend Acute anemia -Highly suspect dilutional as patient is getting 250 cc of IV fluids per hour -Counts are stabilized between 10 and 11 -Will continue to monitor -No signs of active bleeding -Patient is hemodynamically stable Hypertension -Patient appears to have a history of hypertension and reportedly was dischargedon more medications than she is currently on -Start losartan 100 mg -discontinue scheduled hydralazine -Monitor blood pressure and treat accordingly Hepatomegaly -Suspect nonalcoholic fatty liver disease -Recommend weight loss -Outpatient GI referral after discharge Anxiety/depression -Continue home fluoxetine Obesity -BMI 40.8 -Recommend weight loss -Complicates treatment, prognosis, outcomes DVT prophylaxis -Lovenox subcu daily encourage mobility CODE STATUS -Full code Charges/Coding Visit Charges Inpatient E&M: 14610 Subs Hosp L2 09/15/24 1429 <Electronically signed by Charlotte Gibbs DO> Cosigner Signature (if applicable): CC: ~ Signed [facility] Work Phone: [phone]) 553-328803-29-2025 Progress note [facility] Medical Records Department [address] [place] [id number] Progress Note - Hospitalist 09/15/24 0904 MR#: [id number] Acct: [id number] Name: CASIMIRO LIU Rep #:[id number] : 1980 43 From: Charlotte Gibbs DO PCP: Dr. Mary Escobar MD Status:ADM IN Location: [place] [address] Reason for Visit Reason for Visit: Abdominal pain/nausea Subjective Subjective Overall she is feeling better. Lipase is completely normalized. Will try clearliquids today and transition pain medication to p.o. With clears will repeat lipase in the morning to make sure that her lipase remains normalized. Objective Data Objective Data Vital Signs: Vital Signs Temp Pulse Resp BP Pulse Ox O2 Del Method 98.7 F 87 18 165/104 H 96 Room Air 09/15/24 04:07 09/15/24 06:27 09/15/24 04:07 09/15/24 04:07 09/15/24 04:07 09/15/24 08:43 Oxygen Delivery Method Room Air Weight: 107.7 kg Body Mass Index (BMI) 40.7 Intake & Output: Intake and Output for Last 24 Hours 09/13/24 09/14/24 09/15/24 23:59 23:59 23:59 Intake Total 5941.67 / 6061.67 6175.83 / 6175.83 1999 Output Total 0 / 0 Balance 5941.67 / 6061.67 6175.83 / 6175.83 1999 Lab / Micro Data 09/15/24 04:57 09/15/24 04:57 Labs: Laboratory Results - last 24 hr 09/14/24 07:35: Sodium 137, Potassium 4.1, Chloride 108, Carbon Dioxide 18.7 L, Anion Gap 10, BUN 14, Creatinine 0.39 L, Estim Creat Clear Calc 211.94, Est GFR (MDRD) Non-Af 127, BUN/Creatinine Ratio36.8 H, Glucose 104 H, Calcium 9.1, Total Bilirubin 0.41, AST 17, ALT 21, Alkaline Phosphatase 90, Total Protein 6.2, Albumin 3.6, Globulin 2.5, Albumin/Globulin Ratio 1.4 09/15/24 04:57: WBC 13.0 H, RBC 3.81 L, Hgb 10.3 L, Hct 33.0 L, MCV 86.6, MCH 27.0, MCHC 31.2 L, RDW Std Deviation 46.5 H, RDW Coeff of Chelsie 14.6, Plt Count 253, MPV 10.2, Immature Gran % (Auto) 1.100H, Neut % (Auto) 87.2 H, Lymph % (Auto) 6.6 L, [place] % (Auto) 4.7, Eos % (Auto) 0.2, Baso % (Auto) 0.2, Absolute Neuts (auto) 11.3 H, Absolute Lymphs (auto) 0.85, Nucleated RBC % 0, Sodium 138,Potassium 3.9, Chloride 109 H, Carbon Dioxide 19.1 L, Anion Gap 10, BUN 17, Creatinine 0.38 L, Estim Creat Clear Calc 217.52, Est GFR (MDRD) Non-Af 127, BUN/Creatinine Ratio 44.2 H, Glucose 103 H, Calcium 9.1, Lipase 31 Physical Exam Const alert, oriented x3, no apparent distress and well nourished; Negative for average body habitus or healthy appearing Constitutional Narrative: Obese, middle-aged, white female, lying in bed, appears comfortable, nontoxic General Appearance: cooperative HEENT normocephalic, head/scalp atraumatic and moist oral mucous membranes Resp normal respiratory effort, no retractions, no use of accessory muscles and clearto auscultation bilaterally Auscultation: Negative for rales, rhonchi or wheezes Cardio regular rate, regular rhythm, S1 normal heart sound, S2 normal heart sound, no murmurs, no rub, no gallops and no clicks GI normal to inspection, nondistended, normoactive bowel sounds and soft to palpation GI Narrative: Still tenderness in the epigastrium and the left upper quadrant radiating to theleft flank area seems to be improved with deeper palpation, protuberant abdomen Extremity no clubbing, cyanosis or edema Extremity Narrative: Pedal and radial pulses are 2+ Neuro oriented x3, moves all extremities and no focal motor deficits Speech: speech normal Psych affect normal Psych Narrative: Calm, eye contact is good, patient interacts appropriately Assessment & Plan Assessment/Plan (1) Acute pancreatitis: (2) Hypertension: (3) Leukocytosis: PLAN: Plan Acute pancreatitis -Continue n.p.o. with sips and chips sparingly -As needed pain medication -Continue aggressive IV fluids with 250 cc an hour of normal saline -Antiemetics as needed -Lipase is normal -Will try clear liquid diet only today and repeat lipase in a.m. -Consider MRCP if pain is persistent -Could consider steroid therapy tomorrow if still persistently painful -patient had an MRI/MRCP 2 years ago when she had a pancreatitis attack in [place] it was benign per her report -Will have her follow-up as an outpatient with GI after discharge for furtherworkup -Imaging consistent with pancreatitis but no masses or nodules are noted Leukocytosis -Trending down -No signs of infection -Will trend Acute anemia -Highly suspect dilutional as patient is getting 250 cc of IV fluids per hour -Counts are stabilized between 10 and 11 -Will continue to monitor -No signs of active bleeding -Patient is hemodynamically stable Hypertension -Patient appears to have a history of hypertension and reportedly was dischargedon more medicationsthan she is currently on -Start losartan 100 mg -discontinue scheduled hydralazine -Monitor blood pressure and treat accordingly Hepatomegaly -Suspect nonalcoholic fatty liver disease -Recommend weight loss -Outpatient GI referral after discharge Anxiety/depression -Continue home fluoxetine Obesity -BMI 40.8 -Recommend weight loss -Complicates treatment, prognosis, outcomes DVT prophylaxis -Lovenox subcu daily encourage mobility CODE STATUS -Full code Charges/Coding Visit Charges Inpatient E&M: 46018 Subs Hosp L2 09/15/24 9101 Cosigner Signature (if applicable): CC: ~ Signed [facility]03-28-2025 Progress note Author Charlotte Gibbs [facility] Note Date/Time September 14, 2024 12: 04pm [facility] Medical Records Department [address] [place] [address] Progress Note - Hospitalist 09/14/24 0746 MR#: [id number] Acct: [id number] Name: CASIMIRO LIU Rep #:[id number] : 1980 43 From: Charlotte Gibbs DO PCP: Dr. Mary Escobar MD Status:ADM IN Location: [place] [address] Reason for Visit Reason for Visit: Abdominal pain and nausea Subjective Subjective Patient states she is a bit better today, but only about 20% at this point. Still complaining of pretty significant epigastric/upper quadrant pain on the left side. Tolerating sips and chips okay for the most part. Passing flatus with no problem. No bowel movement. Objective Data Objective Data Vital Signs: Vital Signs Temp Pulse Resp BP Pulse Ox O2 Del Method 98.0 F 90 16 143/97 H 91 Room Air 09/14/24 02:00 09/14/24 05:34 09/14/24 02:00 09/14/24 05:34 09/14/24 02:00 09/14/24 02:36 Oxygen Delivery Method Room Air Weight: 98.4 kg Body Mass Index (BMI) 37.2 Intake & Output: Intake and Output for Last 24 Hours 09/12/24 09/13/24 09/14/24 23:59 23:59 23:59 Intake Total 3000 / 3000 5941.67 / 6061.67 2180 / 2180 Output Total 0 / 0 Balance 3000 / 3000 5941.67 / 6061.67 2180 / 2180 Lab / Micro Data 09/14/24 07:35 09/14/24 07:35 Physical Exam Const alert, oriented x3, no apparent distress and well nourished; Negative for average body habitus or healthy appearing Constitutional Narrative: Obese, middle-aged, white female, lying in bed watching television, currently appears comfortable and nontoxic the patient is complaining of subjective pain General Appearance: cooperative HEENT normocephalic, head/scalp atraumatic and moist oral mucous membranes HEENT Narrative: Mallampati 3, no thrush Resp normal respiratory effort, no retractions, no use of accessory muscles and clearto auscultation bilaterally Auscultation: Negative for rales, rhonchi or wheezes Cardio regular rate, regular rhythm, S1 normal heart sound, S2 normal heart sound, no murmurs, no rub, no gallops and no clicks GI normal to inspection, nondistended, normoactive bowel sounds and soft to palpation GI Narrative: Still tenderness in the epigastrium and the left upper quadrant radiating to theleft flank area, protuberant abdomen Extremity no clubbing, cyanosis or edema Extremity Narrative: Pedal and radial pulses are 2+ Neuro oriented x3, moves all extremities and no focal motor deficits Speech: speech normal Psych affect normal Psych Narrative: Appears calm at this time, interacts appropriately, eye contact is good Assessment & Plan Assessment/Plan (1) Acute pancreatitis: (2) Hypertension: (3) Leukocytosis: PLAN: Plan Acute pancreatitis -Continue n.p.o. with sips and chips sparingly -As needed pain medication -Continue aggressive IV fluids with 250 cc an hour of normal saline -Antiemetics as needed -Will start clear liquid diet once pain is resolved or resolving -Patient not improving as quickly as I would anticipate -Will repeat lipase in the morning if still significantly elevated check MRCP -Could consider steroid therapy tomorrow if still persistently painful -patient had an MRI/MRCP 2 years ago when she had a pancreatitis attack in [place] it was benign per her report -Will have her follow-up as an outpatient with GI after discharge for furtherworkup -Imaging consistent with pancreatitis but no masses or nodules are noted Leukocytosis -Remains reactive -No signs of infection -Will trend Acute anemia -Highly suspect dilutional as patient is getting 250 cc of IV fluids per hour -Blood counts have trended down slightly -Will continue to monitor -No signs of active bleeding -Patient is hemodynamically stable Hypertension -Patient appears to have a history of hypertension and reportedly was dischargedon more medications than she is currently on -Will hold lisinopril but anticipate patient will need more than 5 mg at discharge -Hydralazine 10 mg every 6 hours scheduled for now -Monitor blood pressure and treat accordingly Hepatomegaly -Suspect nonalcoholic fatty liver disease -Recommend weight loss -Outpatient GI referral after discharge Anxiety/depression -Continue home fluoxetine Obesity -BMI 37.2 -Recommend weight loss -Complicates treatment, prognosis, outcomes DVT prophylaxis -Lovenox subcu daily encourage mobility - CODE STATUS -Full code Charges/Coding Visit Charges Inpatient E&M: 55784 Subs Hosp L2 09/14/24 1204 <Electronically signed by Charlotte Gibbs DO> Cosigner Signature (if applicable): CC: ~ Signed [facility] Work Phone: 1(614) 352-527003-28-2025 Progress note [facility] Medical Records Department [address] [place] [address] Progress Note - Hospitalist 09/14/24 0746 MR#: [id number] Acct: [id number] Name: CASIMIRO LIU Rep #:[id number] : 1980 43 From: Charlotte Gibbs DO PCP: Dr. Mary Escobar MD Status:ADM IN Location: [place] [address] Reason for Visit Reason for Visit: Abdominal pain and nausea Subjective Subjective Patient states she is a bit better today, but only about 20% at this point. Still complaining of pretty significant epigastric/upper quadrant pain on the left side. Tolerating sips and chips okay forthe most part. Passing flatus with no problem. No bowel movement. Objective Data Objective Data Vital Signs: Vital Signs Temp Pulse Resp BP Pulse Ox O2 Del Method 98.0 F 90 16 143/97 H 91 Room Air 09/14/24 02:00 09/14/24 05:34 09/14/24 02:00 09/14/24 05:34 09/14/24 02:00 09/14/24 02:36 Oxygen Delivery Method Room Air Weight: 98.4 kg Body Mass Index (BMI) 37.2 Intake & Output: Intake and Output for Last 24 Hours 09/12/24 09/13/24 09/14/24 23:59 23:59 23:59 Intake Total 3000 / 3000 5941.67 / 6061.67 2180 / 2180 Output Total 0 / 0 Balance 3000 / 3000 5941.67 / 6061.67 2180 / 2180 Lab / Micro Data 09/14/24 07:35 09/14/24 07:35 Physical Exam Const alert, oriented x3, no apparent distress and well nourished; Negative for average body habitus or healthy appearing Constitutional Narrative: Obese, middle-aged, white female, lying in bed watching television, currently appears comfortable and nontoxic the patient is complaining of subjective pain General Appearance: cooperative HEENT normocephalic, head/scalp atraumatic and moist oral mucous membranes HEENT Narrative: Mallampati 3, no thrush Resp normal respiratory effort, no retractions, no use of accessory muscles and clearto auscultation bilaterally Auscultation: Negative for rales, rhonchi or wheezes Cardio regular rate, regular rhythm, S1 normal heart sound, S2 normal heart sound, no murmurs, no rub, no gallops and no clicks GI normal to inspection, nondistended, normoactive bowel sounds and soft to palpation GI Narrative: Still tenderness in the epigastrium and the left upper quadrant radiating to theleft flank area, protuberant abdomen Extremity no clubbing, cyanosis or edema Extremity Narrative: Pedal and radial pulses are 2+ Neuro oriented x3, moves all extremities and no focal motor deficits Speech: speech normal Psych affect normal Psych Narrative: Appears calm at this time, interacts appropriately, eye contact is good Assessment & Plan Assessment/Plan (1) Acute pancreatitis: (2) Hypertension: (3) Leukocytosis: PLAN: Plan Acute pancreatitis -Continue n.p.o. with sips and chips sparingly -As needed pain medication -Continue aggressive IV fluids with 250 cc an hour of normal saline -Antiemetics as needed -Will start clear liquid diet once pain is resolved or resolving -Patient not improving as quickly as I would anticipate -Will repeat lipase in the morning if still significantly elevated check MRCP -Could consider steroid therapy tomorrow if still persistently painful -patient had an MRI/MRCP 2 years ago when she had a pancreatitis attack in [place] it was benign per her report -Will have her follow-up as an outpatient with GI after discharge for furtherworkup -Imaging consistent with pancreatitis but no masses or nodules are noted Leukocytosis -Remains reactive -No signs of infection -Will trend Acute anemia -Highly suspect dilutional as patient is getting 250 cc of IV fluids per hour -Blood counts have trended down slightly -Will continue to monitor -No signs of active bleeding -Patient is hemodynamically stable Hypertension -Patient appears to have a history of hypertension and reportedly was dischargedon more medicationsthan she is currently on -Will hold lisinopril but anticipate patient will need more than 5 mg at discharge -Hydralazine 10 mg every 6 hours scheduled for now -Monitor blood pressure and treat accordingly Hepatomegaly -Suspect nonalcoholic fatty liver disease -Recommend weight loss -Outpatient GI referral after discharge Anxiety/depression -Continue home fluoxetine Obesity -BMI 37.2 -Recommend weight loss -Complicates treatment, prognosis, outcomes DVT prophylaxis -Lovenox subcu daily encourage mobility - CODE STATUS -Full code Charges/Coding Visit Charges Inpatient E&M: 46233 Subs Hosp L2 09/14/24 1204 Cosigner Signature (if applicable): CC: ~ Signed [facility]03-27-2025 Progress note Author Charlotte Gibbs [facility] Note Date/Time September 13, 2024 6:0 6pm [facility] Medical Records Department [address] [place] [address] Progress Note - Hospitalist 09/13/24 0718 MR#: [id number] Acct: [id number] Name: CASIMIRO LIU Rep #:[id number] : 1980 43 From: Charlotte Gibbs DO PCP: Dr. Mary Escobar MD Status:ADM IN Location: [place] [address] Reason for Visit Reason for Visit: Abdominal pain Subjective Subjective Patient states she still having abdominal pain. States her pain is better controlled on the Dilaudid now. Is having some associated back pain which is kimberley expected. No significant nausea or vomiting at this time. Asked for something for sleep. Objective Data Objective Data Vital Signs: Vital Signs Temp Pulse Resp BP Pulse Ox O2 Del Method 97.3 F L 95 16 142/85 H 93 Room Air 09/12/24 23:00 09/13/24 05:52 09/12/24 23:00 09/13/24 05:52 09/12/24 23:00 09/12/24 23:00 Oxygen Delivery Method Room Air Weight: 98.2 kg Body Mass Index (BMI) 37.1 Intake & Output: Intake and Output for Last 24 Hours 09/11/24 09/12/24 09/13/24 23:59 23:59 23:59 Intake Total 3000 / 3000 Balance 3000 / 3000 Lab / Micro Data 09/13/24 05:08 09/13/24 05:08 Labs: Laboratory Results - last 24 hr 09/12/24 07:12: WBC 13.9 H, RBC 5.19, Hgb 14.0, Hct 42.8, MCV 82.5, MCH 27.0, MCHC 32.7, RDW Std Deviation 39.1, RDW Coeff of Chelsie 13.1, Plt Count 371, MPV 9.9, Immature Gran % (Auto) 0.400, Neut % (Auto) 80.0 H, Lymph % (Auto) 13.0 L, Tarrant % (Auto) 4.5, Eos % (Auto) 1.7, Baso % (Auto) 0.4, Absolute Neuts (auto) 11.2 H, Absolute Lymphs (auto) 1.81, Nucleated RBC % 0, Sodium 135, Potassium 4.4, Chloride 102, Carbon Dioxide 22.7, Anion Gap 11, BUN 4, Creatinine 0.59 L, Estim Creat Clear Calc 136.91, Est GFR (MDRD) Non-Af 115, BUN/Creatinine Ratio 7.1 L, Glucose 118 H, Calcium 9.8, Total Bilirubin 0.52, Direct Bilirubin 0.20, AST 19, ALT 20, Alkaline Phosphatase 73, Troponin T High Sens < 6, Total Protein4.6 L, Albumin 4.5, Globulin 0.2 L, Triglycerides 89, Lipase 1599 H, Serum , Qual NEGATIVE 09/12/24 07:25: Urine Color Yellow, Urine Clarity Sl. Cloudy, Urine pH 8.0, Ur Specific [place] 1.015, Urine Protein 15 H, Urine Glucose (UA) Normal, Urine Ketones Negative, Urine Occult Blood Negative, Urine Nitrite Negative, Urine Bilirubin Negative, Urine Urobilinogen Normal, Ur Leukocyte Esterase Negative, Urine RBC 0 SEEN, Urine WBC 0 SEEN, Ur Squamous Epith Cells 0-5 SEEN, Amorphous Sediment 2+, Urine Bacteria 1+, Urine Mucus 0 SEEN, Urine Opiates Screen NEGATIVE, U Buprenorphine Qual NEGATIVE, Ur Oxycodone Screen NEGATIVE, Urine Methadone Screen NEGATIVE, Urine Fentanyl Screen NEGATIVE, Ur Barbiturates Screen NEGATIVE, Ur Phencyclidine Scrn NEGATIVE, Ur Amphetamines Screen NEGATIVE, U Benzodiazepines Scrn NEGATIVE, Urine Cocaine Screen NEGATIVE, U Cannabinoids Screen NEGATIVE 09/12/24 08:10: Ethyl Alcohol < 10.1 09/12/24 11:40: Troponin T Hi Sens 2 Hr < 6 09/13/24 05:08: WBC 16.1 H, RBC 4.16 L, Hgb 11.3 L, Hct 34.9 L, MCV 83.9, MCH 27.2, MCHC 32.4, RDW Std Deviation 43.5, RDW Coeff of Chelsie 14.1, Plt Count 299, MPV 10.1, Immature Gran % (Auto) 0.600, Neut % (Auto) 86.6 H, Lymph % (Auto) 7.9L, Tarrant % (Auto) 4.7, Eos % (Auto) 0.0, Baso % (Auto) 0.2, Absolute Neuts (auto)13.9 H, Absolute Lymphs (auto) 1.27, Nucleated RBC % 0, Sodium 138, Potassium 4.0, Chloride 108, Carbon Dioxide 20.7 L, Anion Gap 9, BUN 12, Creatinine 0.50 L, Estim Creat Clear Calc 165.13, Est GFR (MDRD) Non-Af 119, BUN/Creatinine Ratio23.9 H, Glucose 90, Calcium 8.7, Phosphorus 2.7, Magnesium 2.1, Total Bilirubin 0.54, AST 28, ALT 26, Alkaline Phosphatase 87, Total Protein 6.0, Albumin 3.5, Globulin 2.5, Albumin/Globulin Ratio 1.4, TSH 0.397 Radiography Diagnostic Testing: Radiology Impression Abdomen/Pelvis CT 09/12/24 07:16 IMPRESSION: Findings highly concerning for the presence of pancreatitis. Reading Location: [id number] Physical Exam Const alert, oriented x3, no apparent distress and well nourished; Negative for average body habitus or healthy appearing Constitutional Narrative: Obese, middle-aged, white female, lying in bed watching television, appears mildly uncomfortable but nontoxic General Appearance: cooperative GI normal to inspection, nondistended, normoactive bowel sounds and soft to palpation GI Narrative: Still tenderness in the epigastrium and the left upper quadrant radiating to theleft flank area, protuberant abdomen Psych affect normal Psych Narrative: Appears calm at this time, interacts appropriately, eye contact is good Assessment & Plan Assessment/Plan (1) Acute pancreatitis: (2) Hypertension: (3) Leukocytosis: PLAN: Plan Acute pancreatitis -Continue n.p.o. with sips and chips sparingly -As needed pain medication -Continue aggressive IV fluids with 250 cc an hour of normal saline -Antiemetics as needed -Will start clear liquid diet once pain is resolved or resolving -No further imaging at this time patient had an MRI/MRCP 2 years ago when she had a pancreatitis attack in [place] and it was benign per her report -Will have her follow-up as an outpatient with GI after discharge for furtherworkup -Imaging consistent with pancreatitis but no masses or nodules are noted Leukocytosis -Remains reactive -No signs of infection -Will trend Hypertension -Patient appears to have a history of hypertension and reportedly was dischargedon more medications than she is currently on -Will hold lisinopril but anticipate patient will need more than 5 mg at discharge -Hydralazine 10 mg every 6 hours scheduled for now -Monitor blood pressure and treat accordingly Hepatomegaly -Suspect nonalcoholic fatty liver disease -Recommend weight loss -Outpatient GI referral after discharge Anxiety/depression -Continue home fluoxetine Obesity -BMI 37.2 -Recommend weight loss -Complicates treatment, prognosis, outcomes DVT prophylaxis -Lovenox subcu daily CODE STATUS -Full code Charges/Coding Visit Charges Inpatient E&M: 06456 Subs Hosp L1 09/13/24 1804 <Electronically signed by Charlotte Gibbs DO> Cosigner Signature (if applicable): CC: ~ Signed [facility] Work Phone: [phone] Progress note [facility] Medical Records Department [address] [place] [address] Progress Note - Hospitalist 09/13/24 0718 MR#: [id number] Acct: [id number] Name: CASIMIRO LIU Rep #:[id number] : 1980 43 From: Charlotte Gibbs DO PCP: Dr. Mary Escobar MD Status:ADM IN Location: [place] [address] Reason for Visit Reason for Visit: Abdominal pain Subjective Subjective Patient states she still having abdominal pain. States her pain is better controlled on the Dilaudid now. Is having some associated back pain which is kimberley expected. No significant nausea or vomitingat this time. Asked for something for sleep. Objective Data Objective Data Vital Signs: Vital Signs Temp Pulse Resp BP Pulse Ox O2 Del Method 97.3 F L 95 16 142/85 H 93 Room Air 09/12/24 23:00 09/13/24 05:52 09/12/24 23:00 09/13/24 05:52 09/12/24 23:00 09/12/24 23:00 Oxygen Delivery Method Room Air Weight: 98.2 kg Body Mass Index (BMI) 37.1 Intake & Output: Intake and Output for Last 24 Hours 09/11/24 09/12/24 09/13/24 23:59 23:59 23:59 Intake Total 3000 / 3000 Balance 3000 / 3000 Lab / Micro Data 09/13/24 05:08 09/13/24 05:08 Labs: Laboratory Results - last 24 hr 09/12/24 07:12: WBC 13.9 H, RBC 5.19, Hgb 14.0, Hct 42.8, MCV 82.5, MCH 27.0, MCHC 32.7, RDW Std Deviation 39.1, RDW Coeff of Chelsie 13.1, Plt Count 371, MPV 9.9, Immature Gran % (Auto) 0.400, Neut % (Auto) 80.0 H, Lymph % (Auto) 13.0 L, Tarrant % (Auto) 4.5, Eos % (Auto) 1.7, Baso % (Auto) 0.4, AbsoluteNeuts (auto) 11.2 H, Absolute Lymphs (auto) 1.81, Nucleated RBC % 0, Sodium 135, Potassium 4.4, Chloride 102, Carbon Dioxide 22.7, Anion Gap 11, BUN 4, Creatinine 0.59 L, Estim Creat Clear Calc 136.91, Est GFR (MDRD) Non-Af 115, BUN/Creatinine Ratio 7.1 L, Glucose 118 H, Calcium 9.8, Total Bilirubin 0.52, Direct Bilirubin 0.20, AST 19, ALT 20, Alkaline Phosphatase 73, Troponin T High Sens < 6,Total Protein4.6 L, Albumin 4.5, Globulin 0.2 L, Triglycerides 89, Lipase 1599 H, Serum , Qual NEGATIVE 09/12/24 07:25: Urine Color Yellow, Urine Clarity Sl. Cloudy, Urine pH 8.0, Ur Specific [place] 1.015, Urine Protein 15 H, Urine Glucose (UA) Normal, Urine Ketones Negative, Urine Occult Blood Negative, Urine Nitrite Negative, Urine Bilirubin Negative, Urine Urobilinogen Normal, Ur Leukocyte Esterase Negative, Urine RBC 0 SEEN, Urine WBC 0 SEEN, Ur Squamous Epith Cells 0-5 SEEN, Amorphous Sediment 2+, Urine Bacteria 1+, Urine Mucus 0 SEEN, Urine Opiates Screen NEGATIVE, U Buprenorphine Qual NEGATIVE, Ur Oxycodone Screen NEGATIVE, Urine Methadone Screen NEGATIVE, Urine Fentanyl Screen NEGATIVE, Ur Barbiturates Screen NEGATIVE, Ur Phencyclidine Scrn NEGATIVE, Ur Amphetamines Screen NEGATIVE, U Benzodiazepines Scrn NEGATIVE, Urine Cocaine Screen NEGATIVE, U Cannabinoids Screen NEGATIVE 09/12/24 08:10: Ethyl Alcohol < 10.1 09/12/24 11:40: Troponin T Hi Sens 2 Hr < 6 09/13/24 05:08: WBC 16.1 H, RBC 4.16 L, Hgb 11.3 L, Hct 34.9 L, MCV 83.9, MCH 27.2, MCHC 32.4, RDW Std Deviation 43.5, RDW Coeff of Chelsie 14.1, Plt Count 299, MPV 10.1, Immature Gran % (Auto) 0.600, Neut % (Auto) 86.6 H, Lymph % (Auto) 7.9L, Tarrant % (Auto) 4.7, Eos % (Auto) 0.0, Baso % (Auto) 0.2, Absolute Neuts (auto)13.9 H, Absolute Lymphs (auto) 1.27, Nucleated RBC % 0, Sodium 138, Potassium 4.0,Chloride 108, Carbon Dioxide 20.7 L, Anion Gap 9, BUN 12, Creatinine 0.50 L, Estim Creat Clear Skqr608.13, Est GFR (MDRD) Non-Af 119, BUN/Creatinine Ratio23.9 H, Glucose 90, Calcium 8.7, Phosphorus 2.7, Magnesium 2.1, Total Bilirubin 0.54, AST 28, ALT 26, Alkaline Phosphatase 87, Total Protein 6.0, Albumin 3.5, Globulin 2.5, Albumin/Globulin Ratio 1.4, TSH 0.397 Radiography Diagnostic Testing: Radiology Impression Abdomen/Pelvis CT 09/12/24 07:16 IMPRESSION: Findings highly concerning for the presence of pancreatitis. Reading Location: [address] Physical Exam Const alert, oriented x3, no apparent distress and well nourished; Negative for average body habitus or healthy appearing Constitutional Narrative: Obese, middle-aged, white female, lying in bed watching television, appears mildly uncomfortable but nontoxic General Appearance: cooperative GI normal to inspection, nondistended, normoactive bowel sounds and soft to palpation GI Narrative: Still tenderness in the epigastrium and the left upper quadrant radiating to theleft flank area, protuberant abdomen Psych affect normal Psych Narrative: Appears calm at this time, interacts appropriately, eye contact is good Assessment & Plan Assessment/Plan (1) Acute pancreatitis: (2) Hypertension: (3) Leukocytosis: PLAN: Plan Acute pancreatitis -Continue n.p.o. with sips and chips sparingly -As needed pain medication -Continue aggressive IV fluids with 250 cc an hour of normal saline -Antiemetics as needed -Will start clear liquid diet once pain is resolved or resolving -No further imaging at this time patient had an MRI/MRCP 2 years ago when she had a pancreatitis attack in [place] and it was benign per her report -Will have her follow-up as an outpatient with GI after discharge for furtherworkup -Imaging consistent with pancreatitis but no masses or nodules are noted Leukocytosis -Remains reactive -No signs of infection -Will trend Hypertension -Patient appears to have a history of hypertension and reportedly was dischargedon more medicationsthan she is currently on -Will hold lisinopril but anticipate patient will need more than 5 mg at discharge -Hydralazine 10 mg every 6 hours scheduled for now -Monitor blood pressure and treat accordingly Hepatomegaly -Suspect nonalcoholic fatty liver disease -Recommend weight loss -Outpatient GI referral after discharge Anxiety/depression -Continue home fluoxetine Obesity -BMI 37.2 -Recommend weight loss -Complicates treatment, prognosis, outcomes DVT prophylaxis -Lovenox subcu daily CODE STATUS -Full code Charges/Coding Visit Charges Inpatient E&M: 27004 Subs Hosp L1 09/13/24 1806 Cosigner Signature (if applicable): CC: ~ Signed [facility]03-26-2025 History and physical note Author Charlotte Gibbs [facility] Note Date/Time September 12, 2024 5:4 7pm [facility] Medical Records Department [address] [place] [address] H&P Exam - Hospitalist 09/12/24 0941 MR#: [id number] Acct: [id number] Name: CASIMIRO LIU Rep #:[id number] : 1980 43 From: Charlotte Gibbs DO PCP: Dr. Mary Escobar MD Status:ADM IN Location: [id number] HPI - General General Date of Admission: 09/12/24 Date of Service: 09/12/24 Chief Complaint: Abdominal pain nausea abdominal pain/nausea HPI Narrative CASIMIRO LIU, is a 43 F who presented to the emergency department [facility] on 09/12/2024 with abdominal pain and nausea that started yesterday. The patient states she had some spicy meat loaf and about 2 hours following she began to feel bloated and gassy. She tried some Pepto-Bismol but had no relief with this. Patient indicated she was up most the night with epigastric and left upper quadrant pain persisted. She described it as achy anddull and radiated towards her left flank area. She also complained of some associated mild mid back pain. She had a normal bowel movement yesterday and has been passing flatus. She denies any vomiting but did have nausea. Denies any fevers. She did have pancreatitis in 2021 and was admitted at [facility] at which time the etiology of her pancreatitis was not found. She did states she had a MRI that was unremarkable for any findings. She does have a history of cholecystectomy done 19 years ago. She takes minimal medication including nasal spray, fluoxetine, and lisinopril. She has been told she has elevated blood pressure previously but stopped taking most of her medications. She does not drink alcohol on a regular basis. It appears she has had previous triglyceride levels done which were not markedly elevated. Vital signs on presentation showed temperature of 97.6, heart rate 75, respiratory 18, initial blood pressure was 1 203/166 with a repeat after labetalol at 170/101. CBC showed a mild leukocytosis with a white count of 13.9. She did have a left shift with an 80% neutrophilia. Chemistry panel was unremarkable. Glucose was 118. Liver functions were normal. Troponins were less than 6 x 2. Triglycerides were 89. Her lipase was 1599. test was negative. Her UA is not consistent with infection. Toxicology screen was negative. Ethyl alcohol level is less than 10. CT of the abdomen pelvis showedthe pancreas was edematous with small to moderate amount of free fluid in the rectal peritoneal region as well as edema in the fat adjacent to the pancreas consistent with pancreatitis with no pancreatic duct dilation and no mass identified. She had diffuse fatty infiltration of the liver with hepatomegaly. [facility] Medical History Pancreatitis Hypertension Anxiety Home Medications ?Medication ?Instructions ?Recorded ?Last Taken ?Type fluoxetine 40 mg capsule 40 mg PO DAILY 09/12/24 Unkn own History ipratropium bromide 42 mcg (0.06 1 spray intranasal TI D PRN PRN 09/12/24 Unknown History %) nasal spray allergy symptoms lisinopril 5 mg tablet 5 mg PO DAILY 09/12/24 Unkno wn History Allergy/AdvReac Type Severity Reaction Status Date / Time No Known Allergies Allergy Verified 09/12/24 06:59 no significant family history Surgical History Hx of cholecystectomy Social History (Updated 09/12/24 @ 17:[address] Charlotte Gibbs DO) Smoking Status: Former smoker alcohol intake: current alcohol intake frequency: 0-2 drinks per day substance use type: does not use ROS Constitutional Constitutional: Denies anorexia, change in weight, chills, fatigue, fever(s), malaise, night sweats, weakness or other Eyes Eyes: Denies blurry vision, change in eye color, change in vision, discharge from eye(s), double vision, erythema, eye pain, loss of vision or other ENT HEENT: Denies abnormal hearing, dysphagia, ear pain, epistaxis, headache(s), hearing loss, nasal congestion, nasal discharge, post nasal drip, sinus pressure, sore throat or other Cardiovascular Cardiovascular: Denies chest pain, claudication, dyspnea on exertion, edema, lightheadedness, orthopnea, palpitations, paroxysmal nocturnal dyspnea, rapid heart rate, syncope or other Respiratory/Chest Respiratory/Chest: Denies cough, dyspnea, excessive phlegm production, hemoptysis, productive cough, shortness of breath at rest, shortness of breath with exertion, wheezing or other Gastrointestinal Gastrointestinal: Reports abdominal pain and nausea; Denies coffee ground emesis, constipation, diarrhea, dyspepsia, hematemesis, hematochezia, loose stools, melena, vomiting or other Genitourinary Genitourinary: Denies burning urination, difficulty urinating, dysuria, hematuria, nocturia, urinary frequency, urinary hesitancy, urinary incontinence,urinary urgency or other Musculoskeletal Musculoskeletal: Reports back pain; Denies arthralgias, joint pain, joint stiffness, joint swelling, myalgias, neck pain or other Neurologic Neurologic: Denies abnormal gait, abnormal speech, confusion, disequilibrium, dizziness, focal weakness, headache(s), numbness, paresthesias, seizure-like activity, seizures, syncope, tingling, tremor(s) or other Psychiatric Psychiatric: Reports anxiety; Denies depression, homicidal ideation, suicidal ideation or other Endocrine Endocrinology: Denies change in body appearance, cold intolerance, excessive sweating, heat intolerance, polydipsia, polyuria or other Hematologic/Lymphatic Hematologic/Lymphatic: Denies anemia, easy bleeding, easy bruising, lymphadenopathy or other Allergic/Immunologic Allergic/Immunologic: Denies rhinitis, hives, eczemia, asthma or other Vital Signs Vital Signs Vital Signs: 09/12/24 06:52 09/12/24 06:52 09/12/24 08:52 Temperature 97.6 F L Temperature Source Oral Pulse Rate 75 71 82 Respiratory Rate 18 18 15 Blood Pressure 203/166 H 170/101 H Blood Pressure Mean 178 124 Pulse Ox 100 99 95 Oxygen Delivery Method Room Air Room Air Room Air Weight Weight: 94.3 kg Body Mass Index (BMI) 35.6 Physical Exam Const alert, oriented x3, no apparent distress and well nourished Constitutional Narrative: Obese, middle-aged, white female, sitting up in bed, appears mildly uncomfortable but nontoxic General Appearance: cooperative HEENT normocephalic, head/scalp atraumatic, hearing grossly normal bilaterally and moist oral mucous membranes HEENT Narrative: Mallampati 3, no thrush, dentition is good Resp normal respiratory effort, no retractions, no use of accessory muscles and clearto auscultation bilaterally Auscultation: Negative for rales, rhonchi or wheezes Cardio regular rate, regular rhythm, S1 normal heart sound, S2 normal heart sound, no murmurs, no rub, no gallops and no clicks GI normal to inspection, nondistended, normoactive bowel sounds and soft to palpation GI Narrative: Tenderness in the epigastrium and the left upper quadrant radiating to the left flank area, protuberant abdomen Extremity no clubbing, cyanosis or edema Extremity Narrative: Pedal and radial pulses are 2+ Neuro oriented x3, moves all extremities and no focal motor deficits Speech: speech normal Psych affect normal Psych Narrative: Appears calm at this time, interacts appropriately, eye contact is good Results Lab / Micro Data 09/12/24 07:12 09/12/24 07:12 Labs: Laboratory Results - last 24 hr 09/12/24 07:12: WBC 13.9 H, RBC 5.19, Hgb 14.0, Hct 42.8, MCV 82.5, MCH 27.0, MCHC 32.7, RDW Std Deviation 39.1, RDW Coeff of Chelsie 13.1, Plt Count 371, MPV 9.9, Immature Gran % (Auto) 0.400, Neut % (Auto) 80.0 H, Lymph % (Auto) 13.0 L, Tarrant % (Auto) 4.5, Eos % (Auto) 1.7, Baso % (Auto) 0.4, Absolute Neuts (auto) 11.2 H, Absolute Lymphs (auto) 1.81, Nucleated RBC % 0, Sodium 135, Potassium 4.4, Chloride 102, Carbon Dioxide 22.7, Anion Gap 11, BUN 4, Creatinine 0.59 L, Estim Creat Clear Calc 136.91, Est GFR (MDRD) Non-Af 115, BUN/Creatinine Ratio 7.1 L, Glucose 118 H, Calcium 9.8, Total Bilirubin 0.52, Direct Bilirubin 0.20, AST 19, ALT 20, Alkaline Phosphatase 73, Troponin T High Sens < 6, Total Protein4.6 L, Albumin 4.5, Globulin 0.2 L, Lipase 1599 H, Serum , Qual NEGATIVE 09/12/24 07:25: Urine Color Yellow, Urine Clarity Sl. Cloudy, Urine pH 8.0, Ur Specific [place] 1.015, Urine Protein 15 H, Urine Glucose (UA) Normal, Urine Ketones Negative, Urine Occult Blood Negative, Urine Nitrite Negative, Urine Bilirubin Negative, Urine Urobilinogen Normal, Ur Leukocyte Esterase Negative, Urine Opiates Screen NEGATIVE, U Buprenorphine Qual NEGATIVE, Ur Oxycodone Screen NEGATIVE, Urine Methadone Screen NEGATIVE, Urine Fentanyl Screen NEGATIVE, Ur Barbiturates Screen NEGATIVE, Ur Phencyclidine Scrn NEGATIVE, Ur Amphetamines Screen NEGATIVE, U Benzodiazepines Scrn NEGATIVE, Urine Cocaine Screen NEGATIVE, U Cannabinoids Screen NEGATIVE 09/12/24 08:10: Ethyl Alcohol < 10.1 Imaging Radiology Impression Abdomen/Pelvis CT 09/12/24 07:16 IMPRESSION: Findings highly concerning for the presence of pancreatitis. Reading Location: [address] Assessment & Plan Assessment/Plan (1) Acute pancreatitis: (2) Hypertension: (3) Leukocytosis: PLAN: Plan Acute pancreatitis -N.p.o. with sips and chips sparingly -As needed pain medication -Aggressive IV fluids with 250 cc an hour of normal saline -Antiemetics as needed -No further imaging at this time patient had an MRI/MRCP 2 years ago when she had a pancreatitis attack in [place] and it was benign per her report -Will have her follow-up as an outpatient with GI after discharge for furtherworkup -Imaging consistent with pancreatitis but no masses or nodules are noted Leukocytosis -Likely reactive -No signs of infection -Will trend Hypertension -Patient appears to have a history of hypertension and reportedly was dischargedon more medications than she is currently on -Will hold lisinopril but anticipate patient will need more than 5 mg at discharge -Hydralazine 10 mg every 6 hours scheduled for now -Monitor blood pressure and treat accordingly Hepatomegaly -Suspect nonalcoholic fatty liver disease -Recommend weight loss -Outpatient GI referral after discharge Anxiety/depression -Continue home fluoxetine Obesity -BMI 35.3 -Recommend weight loss -Complicates treatment, prognosis, outcomes DVT prophylaxis -Lovenox subcu daily CODE STATUS -Full code Charges/Coding Visit Charges Inpatient E&M: 52990 Init Hosp L2 09/12/24 1747 <Electronically signed by Charlotte Gibbs DO> Cosigner Signature (if applicable): CC: Dr. Mary Escobar MD; Dr. Charlotte Gibbs DO~ Signed [facility] Work Phone: [phone]) [phone] History and physical note [facility] Medical Records Department [address] [place] [address] H&P Exam - Hospitalist 09/12/24 0941 MR#: [id number] Acct: [id number] Name: CASIMIRO LIU Rep #:[id number] : 1980 43 From: Charlotte Gibbs DO PCP: Dr. Mary Escobar MD Status:ADM IN Location: [facility] [id number]- 1 HPI - General General Date of Admission: 09/12/24 Date of Service: 09/12/24 Chief Complaint: Abdominal pain nausea abdominal pain/nausea HPI Narrative CASIMIRO LIU, is a 43 F who presented to the emergency department [facility] on09/12/2024 with abdominal pain and nausea that started yesterday. The patient states she had some spicy meat loaf and about 2 hours following she began to feel bloated and gassy. She tried some Pepto-Bismol but had no relief with this. Patient indicated she was up most the night with epigastric and left upper quadrant pain persisted. She described it as achy anddull and radiated towards her left flank area. She also complained of some associated mild mid back pain. She had a normal bowel movement yesterday and has been passing flatus. She denies any vomiting but did have nausea. Denies any fevers. She did have pancreatitis in 2021 and was admitted at [facility] at which time the etiology of her pancreatitis was not found. She did states she had a MRI that was unremarkable for any findings. She does have a history of cholecystectomy done 19 years ago. She takes minimal medication including nasal spray, fluoxetine, and lisinopril. She has been told she has elevated blood pressure previously but stopped taking most of her medications. She does not drink alcohol on a regular basis. It appears she has had previous triglyceride levels done which were not markedly elevated. Vital signs on presentation showed temperature of 97.6, heart rate 75, respiratory 18, initial blood pressure was 1 203/166 with a repeat after labetalol at 170/101. CBC showed a mild leukocytosis with a white count of 13.9. She did have a left shift with an 80% neutrophilia. Chemistry panel was unr emarkable. Glucose was 118. Liver functions were normal. Troponins were less than 6 x 2. Triglycerides were 89. Her lipase was 1599. test was negative. Her UA is not consistent with infection. Toxicology screen was negative. Ethyl alcohol level is less than 10. CT of the abdomen pelvis bay wedthe pancreas was edematous with small to moderate amount of free fluid in the rectal peritoneal region as well as edema in the fat adjacent to the pancreas consistent with pancreatitis with no pancreatic duct dilation and no mass identified. She had diffuse fatty infiltration of the liver with hepatomegaly. [facility] Medical History Pancreatitis Hypertension Anxiety Home Medications ?Medication ?Instructions ?Recorded ?Last Taken ?Type fluoxetine 40 mg capsule 40 mg PO DAILY 09/12/24 Unkn own History ipratropium bromide 42 mcg (0.06 1 spray intranasal TI D PRN PRN 09/12/24 Unknown History %) nasal spray allergy symptoms lisinopril 5 mg tablet 5 mg PO DAILY 09/12/24 Unkno wn History Allergy/AdvReac Type Severity Reaction Status Date / Time No Known Allergies Allergy Verified 09/12/24 06:59 no significant family history Surgical History Hx of cholecystectomy Social History (Updated 09/12/24 @ 17:[address] Charlotte Gibbs DO) Smoking Status: Former smoker alcohol intake: current alcohol intake frequency: 0-2 drinks per day substance use type: does not use ROS Constitutional Constitutional: Denies anorexia, change in weight, chills, fatigue, fever(s), malaise, night sweats, weakness or other Eyes Eyes: Denies blurry vision, change in eye color, change in vision, discharge from eye(s), double vision, erythema, eye pain, loss of vision or other ENT HEENT: Denies abnormal hearing, dysphagia, ear pain, epistaxis, headache(s), hearing loss, nasal congestion, nasal discharge, post nasal drip, sinus pressure, sore throat or other Cardiovascular Cardiovascular: Denies chest pain, claudication, dyspnea on exertion, edema, lightheadedness, orthopnea, palpitations, paroxysmal nocturnal dyspnea, rapid heart rate, syncope or other Respiratory/Chest Respiratory/Chest: Denies cough, dyspnea, excessive phlegm production, hemoptysis, productive cough, shortness of breath at rest, shortness of breath with exertion, wheezing or other Gastrointestinal Gastrointestinal: Reports abdominal pain and nausea; Denies coffee ground emesis, constipation, diarrhea, dyspepsia, hematemesis, hematochezia, loose stools, melena, vomiting or other Genitourinary Genitourinary: Denies burning urination, difficulty urinating, dysuria, hematuria, nocturia, urinary frequency, urinary hesitancy, urinary incontinence,urinary urgency or other Musculoskeletal Musculoskeletal: Reports back pain; Denies arthralgias, joint pain, joint stiffness, joint swelling, myalgias, neck pain or other Neurologic Neurologic: Denies abnormal gait, abnormal speech, confusion, disequilibrium, dizziness, focal weakness, headache(s), numbness, paresthesias, seizure-like activity, seizures, syncope, tingling, tremor(s) or other Psychiatric Psychiatric: Reports anxiety; Denies depression, homicidal ideation, suicidal ideation or other Endocrine Endocrinology: Denies change in body appearance, cold intolerance, excessive sweating, heat intolerance, polydipsia, polyuria or other Hematologic/Lymphatic Hematologic/Lymphatic: Denies anemia, easy bleeding, easy bruising, lymphadenopathy or other Allergic/Immunologic Allergic/Immunologic: Denies rhinitis, hives, eczemia, asthma or other Vital Signs Vital Signs Vital Signs: 09/12/24 06:52 09/12/24 06:52 09/12/24 08:52 Temperature 97.6 F L Temperature Source Oral Pulse Rate 75 71 82 Respiratory Rate 18 18 15 Blood Pressure 203/166 H 170/101 H Blood Pressure Mean 178 124 Pulse Ox 100 99 95 Oxygen Delivery Method Room Air Room Air Room Air Weight Weight: 94.3 kg Body Mass Index (BMI) 35.6 Physical Exam Const alert, oriented x3, no apparent distress and well nourished Constitutional Narrative: Obese, middle-aged, white female, sitting up in bed, appears mildly uncomfortable but nontoxic General Appearance: cooperative HEENT normocephalic, head/scalp atraumatic, hearing grossly normal bilaterally and moist oral mucous membranes HEENT Narrative: Mallampati 3, no thrush, dentition is good Resp normal respiratory effort, no retractions, no use of accessory muscles and clearto auscultation bilaterally Auscultation: Negative for rales, rhonchi or wheezes Cardio regular rate, regular rhythm, S1 normal heart sound, S2 normal heart sound, no murmurs, no rub, no gallops and no clicks GI normal to inspection, nondistended, normoactive bowel sounds and soft to palpation GI Narrative: Tenderness in the epigastrium and the left upper quadrant radiating to the left flank area, protuberant abdomen Extremity no clubbing, cyanosis or edema Extremity Narrative: Pedal and radial pulses are 2+ Neuro oriented x3, moves all extremities and no focal motor deficits Speech: speech normal Psych affect normal Psych Narrative: Appears calm at this time, interacts appropriately, eye contact is good Results Lab / Micro Data 09/12/24 07:12 09/12/24 07:12 Labs: Laboratory Results - last 24 hr 09/12/24 07:12: WBC 13.9 H, RBC 5.19, Hgb 14.0, Hct 42.8, MCV 82.5, MCH 27.0, MCHC 32.7, RDW Std Deviation 39.1, RDW Coeff of Chelsie 13.1, Plt Count 371, MPV 9.9, Immature Gran % (Auto) 0.400, Neut % (Auto) 80.0 H, Lymph % (Auto) 13.0 L, [place] % (Auto) 4.5, Eos % (Auto) 1.7, Baso % (Auto) 0.4, AbsoluteNeuts (auto) 11.2 H, Absolute Lymphs (auto) 1.81, Nucleated RBC % 0, Sodium 135, Potassium 4.4, Chloride 102, Carbon Dioxide 22.7, Anion Gap 11, BUN 4, Creatinine 0.59 L, Estim Creat Clear Calc 136.91, Est GFR (MDRD) Non-Af 115, BUN/Creatinine Ratio 7.1 L, Glucose 118 H, Calcium 9.8, Total Bilirubin 0.52, Direct Bilirubin 0.20, AST 19, ALT 20, Alkaline Phosphatase 73, Troponin T High Sens < 6,Total Protein4.6 L, Albumin 4.5, Globulin 0.2 L, Lipase 1599 H, Serum , Qual NEGATIVE 09/12/24 07:25: Urine Color Yellow, Urine Clarity Sl. Cloudy, Urine pH 8.0, Ur Specific [place] 1.015, Urine Protein 15 H, Urine Glucose (UA) Normal, Urine Ketones Negative, Urine Occult Blood Negative, Urine Nitrite Negative, Urine Bilirubin Negative, Urine Urobilinogen Normal, Ur Leukocyte Esterase Negative, Urine Opiates Screen NEGATIVE, U Buprenorphine Qual NEGATIVE, Ur Oxycodone Screen NEGATIVE, Urine Methadone Screen NEGATIVE, Urine Fentanyl Screen NEGATIVE, Ur Barbiturates Screen NEGATIVE, Ur Phencyclidine Scrn NEGATIVE, Ur Amphetamines Screen NEGATIVE, U Benzodiazepines Scrn NEGATIVE,Urine Cocaine Screen NEGATIVE, U Cannabinoids Screen NEGATIVE 09/12/24 08:10: Ethyl Alcohol < 10.1 Imaging Radiology Impression Abdomen/Pelvis CT 09/12/24 07:16 IMPRESSION: Findings highly concerning for the presence of pancreatitis. Reading Location: [address] Assessment & Plan Assessment/Plan (1) Acute pancreatitis: (2) Hypertension: (3) Leukocytosis: PLAN: Plan Acute pancreatitis -N.p.o. with sips and chips sparingly -As needed pain medication -Aggressive IV fluids with 250 cc an hour of normal saline -Antiemetics as needed -No further imaging at this time patient had an MRI/MRCP 2 years ago when she had a pancreatitis attack in [place] and it was benign per her report -Will have her follow-up as an outpatient with GI after discharge for furtherworkup -Imaging consistent with pancreatitis but no masses or nodules are noted Leukocytosis -Likely reactive -No signs of infection -Will trend Hypertension -Patient appears to have a history of hypertension and reportedly was dischargedon more medicationsthan she is currently on -Will hold lisinopril but anticipate patient will need more than 5 mg at discharge -Hydralazine 10 mg every 6 hours scheduled for now -Monitor blood pressure and treat accordingly Hepatomegaly -Suspect nonalcoholic fatty liver disease -Recommend weight loss -Outpatient GI referral after discharge Anxiety/depression -Continue home fluoxetine Obesity -BMI 35.3 -Recommend weight loss -Complicates treatment, prognosis, outcomes DVT prophylaxis -Lovenox subcu daily CODE STATUS -Full code Charges/Coding Visit Charges Inpatient E&M: 17356 Init Hosp L2 09/12/24 1747 Cosigner Signature (if applicable): CC: Dr. Mary Esocbar MD; Dr. Charlotte Gibbs, DO~ Signed [facility]03-26-2025 Discharge summary Author Yony Newman [facility] Note Date/Time September 12, 2024 3:0 6pm [facility] Medical Records Department [address] [place] [address] Emergency Department Summary 09/12/24 MR#: [id number] Acct: [id number] Name: CASIMIRO LIU Rep #:[id number] : 1980 43 From: Yony Mccray PCP: Dr. Mary Escobar MD Status:ADM IN Location: [place] [address] HPI HPI - GI History of Present Illness Chief Complaint: Abd Pain Informant: patient Narrative Narrative: 43-year-old female presenting to the emergency room with a chief complaint of abdominal pain. Patient states that last evening she had a spicy meatloaf. Shestates about 2 hours later she began to feel bloated and gassy. She tried some Pepto- Bismol with no relief. She states she was up most the night with discomfort in her epigastrium left upper quadrant. It has persisted. She describes it as dull achy and radiating towards the left kidney. She has not had a bowel movement today. She notes normal bowel movement yesterday. No vomiting. No fevers. She states that it reminds her of when her pancreas was enlarged in 2019 after having COVID and was treated with steroids. She does not know anything more about that episode and it was not done at this hospital. Patient denies any medical problems but does take Paxil for anxiety lisinopril for hypertension and ipratropium bromide for allergy symptoms. She denies any urinary symptoms. She states her blood pressure is high this morning and is declining further blood pressure readings at this time because it hurts her arm. Patient notes minimal alcohol intake [facility] Medical History (Updated 09/12/24 @ 09:[address] Charlotte Gibbs, DO) Pancreatitis Hypertension Anxiety Home Medications ?Medication ?Instructions ?Recorded ?Last Taken ?Type fluoxetine 40 mg capsule 40 mg PO DAILY 09/12/24 Unkn own History ipratropium bromide 42 mcg (0.06 1 spray intranasal TI D PRN PRN 09/12/24 Unknown History %) nasal spray allergy symptoms lisinopril 5 mg tablet 5 mg PO DAILY 09/12/24 Unkno wn History Allergy/AdvReac Type Severity Reaction Status Date / Time No Known Allergies Allergy Verified 09/12/24 06:59 Surgical History (Updated 09/12/24 @ 08:22 by Deborah Tijerina) Hx of cholecystectomy Social History Smoking Status: Former smoker ROS ROS ED Constitutional Constitutional ED: Denies chills, fever(s) or weight loss Eyes Eyes: Denies change in vision or diplopia ENT ENT ED: Denies ear pain, rhinorrhea or sore throat Cardiovascular Cardiovascular: Denies chest pain, orthopnea, palpitations or racing heartbeat Respiratory/Chest Respiratory/Chest: Denies cough, dyspnea or orthopnea Gastrointestinal Gastrointestinal: Reports abdominal pain and nausea; Denies diarrhea or vomiting Genitourinary Genitourinary ED: Denies dysuria, hematuria or urinary frequency Musculoskeletal Musculoskeletal: Denies arthralgias or myalgias Integumentary Denies abscess or rash Neurologic Neurologic: Denies headache(s) or weakness Psychiatric Psychiatric: Denies anxiety, depression, suicidal ideation or suicidal thoughts Endocrine Endocrinology: Denies polydipsia, polyphagia or polyuria Allergic/Immunologic Allergic/Immunologic ED: Denies mouth swelling, tongue swelling or urticaria EXAM Physical Exam Const Vital Signs: 09/12/24 06:52 09/12/24 06:52 09/12/24 08:52 Temperature 97.6 F L Temperature Source Oral Pulse Rate 75 71 82 Respiratory Rate 18 18 15 Blood Pressure 203/166 H 170/101 H Blood Pressure Mean 178 124 Pulse Ox 100 99 95 Oxygen Delivery Method Room Air Room Air Room Air Positive well nourished, well developed and obese General Appearance ED: well developed and NAD Nutritional Appearance: obese HEENT Reports normocephalic, head/scalp atraumatic and moist mucous membranes Eyes PERRL and EOMs intact bilaterally Neck no lymphadenopathy, supple and no JVD Resp normal respiratory effort and clear to auscultation bilaterally Cardio regular rate, regular rhythm and no murmurs GI Inspection: Negative for abdominal distention Auscultation: normoactive bowel sounds Palpation: soft and tender epigastric and LUQ Back/Spine no CVA tenderness and normal ROM Extremity normal to inspection General Extremety ED: Negative for edema General Extremity: Negative for edema Neuro oriented x3 and CN's II-XII intact bilaterally Sensorium / Orientation: alert Motor Exam: strength 5/5 throughout Psych mental status grossly normal Mood & Affect: Negative for depressed or tearful Skin no rashes or lesions noted and no wounds MDM MDM MDM Narrative Medical decision making narrative: Differential diagnosis includes but not limited to choledocholithiasis biliary colic pancreatitis gastroenteritis gastric ulcer duodenal ulcer bowel obstruction Patient developed chest pain after the administration of morphine. EKG shows a normal sinus rhythm. White count elevated 13.9 hemoglobin of 14. Glucose of 118 creatinine 0.59. Troponin is less than 6 lipase 1599 normal liver enzymes. Urinalysis is negative alcohol is negative. Triglycerides are 89. CT of the abdomen pelvis was obtained read by radiology reviewed by myself. This is consistent with pancreatitis. Please see radiologist read. I was able to log into [employer] and review some records from [facility]. It looks like in 2021 she was admitted for pancreatitis with an unknowncause. It was noted on their imaging that the patient has had prior cholecystectomy. Patient received morphine and Zofran as well as IV fluids. She also received Ativan and 1/2 mg of Dilaudid as well as continued IV fluids. For her hypertension it is down to 170/101 and we administered hydralazine. Plan of care is admission in the hospital. History & Record Review Discussion w/independent historian: Patient Lab Data Attestation: I reviewed the patient's lab results. Labs: Laboratory Results - last 24 hr 09/12/24 09/12/24 09/12/24 07:12 07:25 08:10 WBC 13.9 H RBC 5.19 Hgb 14.0 Hct 42.8 MCV 82.5 MCH 27.0 MCHC 32.7 RDW Std Deviation 39.1 RDW Coeff of Chelsie 13.1 Plt Count 371 MPV 9.9 Immature Gran % (Auto) 0.400 Neut % (Auto) 80.0 H Lymph % (Auto) 13.0 L [place] % (Auto) 4.5 Eos % (Auto) 1.7 Baso % (Auto) 0.4 Absolute Neuts (auto) 11.2 H Absolute Lymphs (auto) 1.81 Nucleated RBC % 0 Sodium 135 Potassium 4.4 Chloride 102 Carbon Dioxide 22.7 Anion Gap 11 BUN 4 Creatinine 0.59 L Estim Creat Clear Calc 136.91 Est GFR (MDRD) Non-Af 115 BUN/Creatinine Ratio 7.1 L Glucose 118 H Calcium 9.8 Total Bilirubin 0.52 Direct Bilirubin 0.20 AST 19 ALT 20 Alkaline Phosphatase 73 Troponin T High Sens < 6 Total Protein 4.6 L Albumin 4.5 Globulin 0.2 L Triglycerides 89 Lipase 1599 H Serum , Qual NEGATIVE Urine Color Yellow Urine Clarity Sl. Cloudy Urine pH 8.0 Ur Specific [place] 1.015 Urine Protein 15 H Urine Glucose (UA) Normal Urine Ketones Negative Urine Occult Blood Negative Urine Nitrite Negative Urine Bilirubin Negative Urine Urobilinogen Normal Ur Leukocyte Esterase Negative Urine Opiates Screen NEGATIVE U Buprenorphine Qual NEGATIVE Ur Oxycodone Screen NEGATIVE Urine Methadone Screen NEGATIVE Urine Fentanyl Screen NEGATIVE Ur Barbiturates Screen NEGATIVE Ur Phencyclidine Scrn NEGATIVE Ur Amphetamines Screen NEGATIVE U Benzodiazepines Scrn NEGATIVE Urine Cocaine Screen NEGATIVE U Cannabinoids Screen NEGATIVE Ethyl Alcohol < 10.1 Radiography Diagnostic Testing: Clinical Impression(s) from Imaging Studies Abdomen/Pelvis CT 09/12/24 07:16 IMPRESSION: Findings highly concerning for the presence of pancreatitis. Reading Location: [address] EKG Initial EKG: Attestation: I personally reviewed and interpreted this EKG as follows: Comments: Normal sinus rhythm ventricular rate of 71 bpm Management Discussion w/another healthcare provider: Hospitalist Discharge Plan Dx/Rx/DC Orders Clinical Impression: Acute abdominal pain, Acute pancreatitis, Hypertension, Chest pain Disposition Disposition: Acute Care Hospital [facility] Discharge Date/Time: 09/12/24 10:03 What to do if you have Problems For any increased pain, shortness of breath, bleeding, nausea or vomiting, chestpain, or any unexpected problems, contact your Primary Care Provider. Call [facility] ([phone]) or report to the closest Emergency Room. Call 911 if necessary. 09/12/24 1506 <Electronically signed by Yony Newman DO> Cosigner Signature (if applicable): CC: Dr. Mary Escobar MD ~ Signed [facility] Work Phone: [phone] 617-380103-26-2025 Discharge summary [facility] Medical Records Department [address] [place] [address] Emergency Department Summary 09/12/24 MR#: [id number] Acct: [id number] Name: CASIMIRO LIU Rep #:[id number] : 1980 43 From: Yony Mccray PCP: Dr. Mary Escobar MD Status:ADM IN Location: [place] [address] HPI HPI - GI History of Present Illness Chief Complaint: Abd Pain Informant: patient Narrative Narrative: 43-year-old female presenting to the emergency room with a chief complaint of abdominal pain. Patient states that last evening she had a spicy meatloaf. Shestates about 2 hours later she began to feel bloated and gassy. She tried some Pepto-Bismol with no relief. She states she was up most the night with discomfort in her epigastrium left upper quadrant. It has persisted. She describes it as dullachy and radiating towards the left kidney. She has not had a bowel movement today. She notes normal bowel movement yesterday. No vomiting. No fevers. She states that it reminds her of when her pancreas was enlarged in 2019 after having COVID and was treated with steroids. She does not know anythi ng more about that episode and it was not done at this hospital. Patient denies any medical problems but does take Paxil for anxiety lisinopril for hypertension and ipratropium bromide for allergy symptoms. She denies any urinary symptoms. She states her blood pressure is high this morning and is declining further blood pressure readings at this time because it hurts her arm. Patient notes minimal alcohol intake [facility] Medical History (Updated 09/12/24 @ 09:[address] Charlotte Gibbs DO) Pancreatitis Hypertension Anxiety Home Medications ?Medication ?Instructions ?Recorded ?Last Taken ?Type fluoxetine 40 mg capsule 40 mg PO DAILY 09/12/24 Unkn own History ipratropium bromide 42 mcg (0.06 1 spray intranasal TI D PRN PRN 09/12/24 Unknown History %) nasal spray allergy symptoms lisinopril 5 mg tablet 5 mg PO DAILY 09/12/24 Unkno wn History Allergy/AdvReac Type Severity Reaction Status Date / Time No Known Allergies Allergy Verified 09/12/24 06:59 Surgical History (Updated 09/12/24 @ 08:22 by Deborah Tijerina) Hx of cholecystectomy Social History Smoking Status: Former smoker ROS ROS ED Constitutional Constitutional ED: Denies chills, fever(s) or weight loss Eyes Eyes: Denies change in vision or diplopia ENT ENT ED: Denies ear pain, rhinorrhea or sore throat Cardiovascular Cardiovascular: Denies chest pain, orthopnea, palpitations or racing heartbeat Respiratory/Chest Respiratory/Chest: Denies cough, dyspnea or orthopnea Gastrointestinal Gastrointestinal: Reports abdominal pain and nausea; Denies diarrhea or vomiting Genitourinary Genitourinary ED: Denies dysuria, hematuria or urinary frequency Musculoskeletal Musculoskeletal: Denies arthralgias or myalgias Integumentary Denies abscess or rash Neurologic Neurologic: Denies headache(s) or weakness Psychiatric Psychiatric: Denies anxiety, depression, suicidal ideation or suicidal thoughts Endocrine Endocrinology: Denies polydipsia, polyphagia or polyuria Allergic/Immunologic Allergic/Immunologic ED: Denies mouth swelling, tongue swelling or urticaria EXAM Physical Exam Const Vital Signs: 09/12/24 06:52 09/12/24 06:52 09/12/24 08:52 Temperature 97.6 F L Temperature Source Oral Pulse Rate 75 71 82 Respiratory Rate 18 18 15 Blood Pressure 203/166 H 170/101 H Blood Pressure Mean 178 124 Pulse Ox 100 99 95 Oxygen Delivery Method Room Air Room Air Room Air Positive well nourished, well developed and obese General Appearance ED: well developed and NAD Nutritional Appearance: obese HEENT Reports normocephalic, head/scalp atraumatic and moist mucous membranes Eyes PERRL and EOMs intact bilaterally Neck no lymphadenopathy, supple and no JVD Resp normal respiratory effort and clear to auscultation bilaterally Cardio regular rate, regular rhythm and no murmurs GI Inspection: Negative for abdominal distention Auscultation: normoactive bowel sounds Palpation: soft and tender epigastric and LUQ Back/Spine no CVA tenderness and normal ROM Extremity normal to inspection General Extremety ED: Negative for edema General Extremity: Negative for edema Neuro oriented x3 and CN's II-XII intact bilaterally Sensorium / Orientation: alert Motor Exam: strength 5/5 throughout Psych mental status grossly normal Mood & Affect: Negative for depressed or tearful Skin no rashes or lesions noted and no wounds MDM MDM MDM Narrative Medical decision making narrative: Differential diagnosis includes but not limited to choledocholithiasis biliary colic pancreatitis gastroenteritis gastric ulcer duodenal ulcer bowel obstruction Patient developed chest pain after the administration of morphine. EKG shows a normal sinus rhythm.White count elevated 13.9 hemoglobin of 14. Glucose of 118 creatinine 0.59. Troponin is less than 6lipase 1599 normal liver enzymes. Urinalysis is negative alcohol is negative. Triglycerides are 89. CT of the abdomen pelvis was obtained read by radiology reviewed by myself. This is consistent withpancreatitis. Please see radiologist read. I was able to log into [employer] and review some records from [facility]. It looks like [id number] she was admitted for pancreatitis with an unknowncause. It was noted on their imaging that thepatient has had prior cholecystectomy. Patient received morphine and Zofran as well as IV fluids. She also received Ativan and 1/2 mg of Dilaudid as well as continued IV fluids. For her hypertension it is down to 170/101 and we administered hydralazine. Plan of care is admission in the hospital. History & Record Review Discussion w/independent historian: Patient Lab Data Attestation: I reviewed the patient's lab results. Labs: Laboratory Results - last 24 hr 09/12/24 09/12/24 09/12/24 07:12 07:25 08:10 WBC 13.9 H RBC 5.19 Hgb 14.0 Hct 42.8 MCV 82.5 MCH 27.0 MCHC 32.7 RDW Std Deviation 39.1 RDW Coeff of Chelsie 13.1 Plt Count 371 MPV 9.9 Immature Gran % (Auto) 0.400 Neut % (Auto) 80.0 H Lymph % (Auto) 13.0 L [place] % (Auto) 4.5 Eos % (Auto) 1.7 Baso % (Auto) 0.4 Absolute Neuts (auto) 11.2 H Absolute Lymphs (auto) 1.81 Nucleated RBC % 0 Sodium 135 Potassium 4.4 Chloride 102 Carbon Dioxide 22.7 Anion Gap 11 BUN 4 Creatinine 0.59 L Estim Creat Clear Calc 136.91 Est GFR (MDRD) Non-Af 115 BUN/Creatinine Ratio 7.1 L Glucose 118 H Calcium 9.8 Total Bilirubin 0.52 Direct Bilirubin 0.20 AST 19 ALT 20 Alkaline Phosphatase 73 Troponin T High Sens < 6 Total Protein 4.6 L Albumin 4.5 Globulin 0.2 L Triglycerides 89 Lipase 1599 H Serum , Qual NEGATIVE Urine Color Yellow Urine Clarity Sl. Cloudy Urine pH 8.0 Ur Specific [place] 1.015 Urine Protein 15 H Urine Glucose (UA) Normal Urine Ketones Negative Urine Occult Blood Negative Urine Nitrite Negative Urine Bilirubin Negative Urine Urobilinogen Normal Ur Leukocyte Esterase Negative Urine Opiates Screen NEGATIVE U Buprenorphine Qual NEGATIVE Ur Oxycodone Screen NEGATIVE Urine Methadone Screen NEGATIVE Urine Fentanyl Screen NEGATIVE Ur Barbiturates Screen NEGATIVE Ur Phencyclidine Scrn NEGATIVE Ur Amphetamines Screen NEGATIVE U Benzodiazepines Scrn NEGATIVE Urine Cocaine Screen NEGATIVE U Cannabinoids Screen NEGATIVE Ethyl Alcohol < 10.1 Radiography Diagnostic Testing: Clinical Impression(s) from Imaging Studies Abdomen/Pelvis CT 09/12/24 07:16 IMPRESSION: Findings highly concerning for the presence of pancreatitis. Reading Location: [address] EKG Initial EKG: Attestation: I personally reviewed and interpreted this EKG as follows: Comments: Normal sinus rhythm ventricular rate of 71 bpm Management Discussion w/another healthcare provider: Hospitalist Discharge Plan Dx/Rx/DC Orders Clinical Impression: Acute abdominal pain, Acute pancreatitis, Hypertension, Chest pain Disposition Disposition: Acute Care Hospital [facility] Discharge Date/Time: 09/12/24 10:03 What to do if you have Problems For any increased pain, shortness of breath, bleeding, nausea or vomiting, chestpain, or any unexpected problems, contact your Primary Care Provider. Call [facility] ([phone]) or report tothe closest Emergency Room. Call 911 if necessary. 09/12/24 3867 Cosigner Signature (if applicable): CC: Dr. Mary Escobar MD ~ Signed [facility]03-26-2025 Evaluation note* Diagnosis Onset Date Resolution Status Admit Date Acute abdominal pain acute [place] h 2024 9:34am Acute pancreatitis acute September 12, 2024 9:34am Chest pain acute September 12 9:34am Leukocytosis acute September 12, 2024 9:34am Hypertension chronic September 12, 2024 9:34am [facility] Work Phone: 1([phone]) 637-291603-26-2025 Evaluation note* Diagnosis Onset Date Resolution Status Admit Date Acute abdominal pain acute [place] h 2024 9:34am Acute pancreatitis acute September 12, 2024 9:34am Chest pain acute September 12 9:34am Leukocytosis acute September 12, 2024 9:34am Hypertension chronic September 12, 2024 9:34am Intractable pain acute September 9:44am Leukocytosis acute September 25 9:44am Pancreatitis acute September 25 9:44am [facility] Work Phone: 1(594) 692-342603-26-2025 Evaluation note* Diagnosis Onset Date Resolution Status Admit Date Acute abdominal pain resolved [place] h 2024 9:34am Acute pancreatitis resolved September 12, 2024 9:34am Chest pain resolved September 12 9:34am Leukocytosis resolved September 12, 2024 9:34am Hypertension inactive September 12, 2024 9:34am Intractable pain acute September 9:44am Leukocytosis resolved September 25 025 9:44am Pancreatitis acute September 25 9:44am Right sided abdominal pain acute September 25, 2024 9:44am Acute pancreatitis resolved September 25, 2024 9:44am Hypertension inactive September 25 9:44am [facility] Work Phone: 1(792) 243-657903-26-2025 Evaluation note* Diagnosis Onset Date Resolution Status Admit Date Acute abdominal pain resolved [place] h 2024 9:34am Acute pancreatitis resolved September 12, 2024 9:34am Chest pain resolved September 12 9:34am Leukocytosis resolved September 12, 2024 9:34am Hypertension inactive September 12, 2024 9:34am Acute pancreatitis resolved September 25, 2024 9:44am Intractable pain resolved September 9:44am Leukocytosis resolved Triny 8th, 2 025 9:44am Pancreatitis resolved September 25 025 9:44am Hypertension inactive September 25 025 9:44am Right sided abdominal pain inactive September 25, 2024 9:44am Heartburn acute October 04 1:02pm Pancreatitis acute October 04, 2024 1:02pm Hypertension inactive October 16, 2024 12:51am Acute pancreatitis resolved October 16, 2024 12:51am Leukocytosis resolved October 16, 2024 12:51am Acute recurrent pancreatitis inactiv e October 16, 2024 12:51am Intractable abdominal pain inactive October 16, 2024 12:51am Choledocholithiasis acute November 29, 2024 12:04pm Pancreatitis acute November 29 12:04pm [facility] Work Phone: 1(275) 751-371703-26-2025 Radiology Diagnostic study note [facility] Imaging Services [address] [place], [place] [address] Abdomen/Pelvis W IV Cont ONLY MR#: [id number] Acct: [id number] Name: CASIMIRO LIU Rep #: [id number] : 1980 F 43 From: Chase Bailey MD PCP: Dr. Mary Escobar MD Status: REG ER Study:Abdomen/Pelvis W IV Cont ONLY Date of E xam: 09/12/24 Exam# [id number] Ordering Dr: Dayton Newman DO EXAM: CT of the abdomen and pelvis with contrast, with sagittal and coronal reconstructed images. CLINICAL HISTORY: Abdominal pain. Concern for possible pancreatitis. COMPARISON: None. TECHNIQUE: CT of the abdomen and pelvis with contrast, with sagittal and coronal reconstructed images. FINDINGS: The pancreas is edematous, with indistinct morphology, particularly in the region of the tail. Adjacent retroperitoneal bglcx-ov-ebxdxgew amount of free fluid is also seen. Also, edema is seen in thefat adjacent to the pancreas. This is consistent with pancreatitis. No pancreatic duct dilation is seen. No defined mass is evident. Prior cholecystectomy. Diffuse fatty infiltration of the liver is seen. Hepatomegaly is noted. The remaining abdominal organs show no abnormality. Kidneys are unremarkable in appearance. An incompletely filled urinary bladder shows no abnormality. The visualized lung bases show mild dependent atelectasis. No pleural effusion is seen. No adenopathy is seen. No evidence of pneumoperitoneum. No free fluid is seen within the pelvis. No evidence of abdominal aortic aneurysm. No acute osseous changes seen. Mild degenerative changes of the visualized spine are noted. CT/Abdomen/Pelvis W IV Cont ONLY IMPRESSION: Findings highly concerning for the presence of pancreatitis. Reading Location: [address] CC: Dr. Mary Escobar MD; Dr. Yony Newman, DO ~ Comic Book Artist: Signed [facility]10-07-2024 Telephone encounter Note* Telephone Encounter - Autumn Oliveira MA - 03/26/2024 3:15 PM EDT Last office visit: 10/24/23 Next office visit: no follow up, was supposed to come back 11/21/23 [id number] Miscellaneous Notes* Telephone Encounter - Autumn Oliveira MA - 03/26/2024 3:15 PM EDT Last office visit: 10/24/23 Next office visit: no follow up, was supposed to come back 11/21/23 documented in this encounterSUniversity [facility] [id number] Telephone encounter Note* Telephone Encounter - Autumn Oliveira MA - 03/26/2024 10:16 AM EDT Last office visit: 10/24/23 Next office visit: none- per ANN MARIE follow up 4 weeks ( 11/21/23) [facility] [id number] Miscellaneous Notes* Telephone Encounter - Autumn Oliveira MA - 03/26/2024 10:16 AM EDT Last office visit: 10/24/23 Next office visit: none- per ANN MARIE follow up 4 weeks ( 11/21/23) documented in this encounterSUniversity Hospitals Geneva Medical [id number] Telephone encounter Note* Telephone Encounter - RamonaHollie - 12/08/2023 3:55 PM EDT Patient did not arrive for her scheduled appointment on 12/05/23. Called patient but mailbox is full. A missed appointment letter sent by certified mail; tracking number [id number]. [facility]06-20-2024 Miscellaneous Notes* Telephone Encounter - RamonaHollie - 12/08/2023 3:55 PM EDT Patient did not arrive for her scheduled appointment on 12/05/23. Called patient but mailbox is full. A missed appointment letter sent by certified mail; tracking number [id number]. documented in this [facility]05-[facility] Evaluation + Plan note* Assessment & Plan Note - Nura Hodgson MD - 10/24/2023 5:38 PM EDTAssociated Problem(s): Anxiety and depression Chronic issue, uncontrolled, subsequent encounter. Will try zoloft, had success with this in the past. Advised continue with therapy, is established with a therapist - inquire if they can do CBT for sleep issues. May also need to explore possible DMITRY due to sleep issues as states above. [facility] [id number] Miscellaneous Notes* Assessment & Plan Note - Nura Hodgson MD - 10/24/2023 5:38 PM EDTAssociated Problem(s): Anxiety and depression Chronic issue, uncontrolled, subsequent encounter. Will try zoloft, had success with this in the past. Advised continue with therapy, is established with a therapist - inquire if they can do CBT for sleep issues. May also need to explore possible DMITRY due to sleep issues as states above. * Assessment & Plan Note - Nura Hodgson MD - 10/24/2023 5:36 PM EDTAssociated Problem(s): Primary hypertension Chronic issue, uncontrolled, subsequent [...] DASH, low salt diet. documented in this [facility]05-06-2024 Miscellaneous Notes* Assessment & Plan Note - Nura Hodgson MD - 10/24/2023 5:38 PM EDTAssociated Problem(s): Anxiety and depression Chronic issue, uncontrolled, subsequent encounter. Will try zoloft, had success with this in the past. Advised continue with therapy, is established with a therapist - inquire if they can do CBT for sleep issues. May also need to explore possible DMITRY due to sleep issues as states above. * Assessment & Plan Note - Nura Hodgson MD - 10/24/2023 5:36 PM EDTAssociated Problem(s): Primary hypertension Chronic issue, uncontrolled, subsequent [...] DASH, low salt diet. documented in this [facility]05-06-2024 Evaluation + Plan note* Assessment & Plan Note - Nura Hodgson MD - 10/24/2023 5:36 PM EDTAssociated Problem(s): Primary hypertension Chronic issue, uncontrolled, subsequent [...] - increase walking, DASH, low salt diet. [facility] [id number] History of Present illness Narrative* Nura Hodgson MD - 10/24/2023 4:00 PM EDT Images from the original note were not included. [facility] [address] [facility] [address] Dept: [phone] Dept Loc: [phone] Visit type: Established patient Reason for Visit: [...] cervix and is following up with OBGYN thissummer. Follow up in about 4 weeks (around 11/21/2023) for depression and HTN. orders and follow up as documented in EMR, lab results reviewed with patient, reviewed medications and side effects in detail Subjective HTN Has nto been seen in our office for some time now. Has HTN but was not on any BP meds. Had elevatedBPs in the past, elevated in her prior appt at other offices. Bps high 140s, even 170-190. Not on meds. Does use ibuprofen occasionally but not daily use. No excessive caffeine, no current smoking isformer, no alcohol. Not on any special diets. Feels has gained weight which made her BP worse now. N o chest pain, palpitations, SOB, dyspnea on exertion, [...] alert. Data Reviewed and Summarized Labs: Imaging/Testing: NURA HODGSON MD * Nataliia Blanco LPN - 10/24/2023 4:00 PM EDT Patient was able to ambulate safely to the examination room. Provider was not notified of possible fall risk * Nataliia Blanco LPN - 10/24/2023 4:00 PM EDT Pt asked if they have been to specialist,been in ER /hospitalized or had testing since last visit. No documented in this [facility]05-06-2024 History of Present illness Narrative* Nura Hodgson MD - 10/24/2023 4:00 PM EDT Images from the original note were not included. [facility] [address] [facility] [address] Dept: [phone] Dept Loc: [phone] Visit type: Established patient Reason for Visit: [...] the cervix and is following up with OBARMAANN thissummer. Follow up in about 4 weeks (around 11/21/2023) for depression and HTN. orders and follow up as documented in EMR, lab results reviewed with patient, reviewed medications and side effects in detail Subjective HTN Has nto been seen in our office for some time now. Has HTN but was not on any BP meds. Had elevatedBPs in the past, elevated in her prior appt at other offices. Bps high 140s, even 170-190. Not on meds. Does use ibuprofen occasionally but not daily use. No excessive caffeine, no current smoking isformer, no alcohol. Not on any special diets. Feels has gained weight which made her BP worse now. N o chest pain, palpitations, SOB, dyspnea on exertion, [...] alert. Data Reviewed and Summarized Labs: Imaging/Testing: NURA HODGSON MD * Nataliia Blanco LPN - 10/24/2023 4:00 PM EDT Patient was able to ambulate safely to the examination room. Provider was not notified of possible fall risk * Nataliia Blanco LPN - 10/24/2023 4:00 PM EDT Pt asked if they have been to specialist,been in ER /hospitalized or had testing since last visit. No * Chanel Laboy MD - 10/24/2023 4:00 PM EDT Type: INDIRECT I have discussed the care [...] issues but started meds documented in this [facility]05-06-2024 Instructions* Patient Instructions* Nura Hodgson MD - 10/24/2023 4:00 PM EDT Cognitive behavioral therapy for insomnia or sleep issues, please inquire if your therapist can do this. documented in this [facility]05-06-2024 Instructions* Patient Instructions* Nura Hodgson MD - 10/24/2023 4:00 PM EDT Cognitive behavioral therapy for insomnia or sleep issues, please inquire if your therapist can do this. documented in this [facility]03-22-2024 Hospital Discharge instructions Additional Instructions Keep the dressing dry and clean. Keep the wound dry and clean. After you shower carefully dry it off thoroughly. Apply antibiotic ointment daily. You can leave our dressing on for 3 to 4 days. Then start changing it daily. Apply antibiotic ointment such as bacitracin or Neosporin to the wound daily. Ice and elevate to decrease swelling and pain. Motrin and Tylenol for pain. Percocet for more severe pain if you are using the Percocet and has Tylenol already in it do not take any additional Tylenol while using the Percocet. Plenty of fluids, fruits, vegetables and fiber to prevent constipation. Do not drink or drive if using the Percocet. Off work until Tuesday. Any signs of infection such as significant redness, streaks, fever swelling or pus needs to be reevaluated to rule out any developing infection.[facility] Work Phone: 1(110) 772-945912-12-2023 Telephone encounter Note* Telephone Encounter - Nura Hodgson MD - 05/31/2023 4:03 PM EST Noted, thank you. Agree with plan to be reevaluated. Sounds like she will go to the ED or a UC today. Would suggest covid testing herself again if not already done so NURA HODGSON MD Family Medicine PGY-3 05/31/23 4:03 PM [facility] [id number] Miscellaneous Notes* Telephone Encounter - Nura Hodgson MD - 05/31/2023 4:03 PM EST Noted, thank you. Agree with plan to be reevaluated. Sounds like she will go to the ED or a today. Would suggest covid testing herself again if not already done so NURA HODGSON MD Family Medicine PGY-3 05/31/23 4:03 PM * Telephone Encounter - Britta Harry RN - 05/31/2023 12:04 PM EST S: the patient is calling the [facility] about pneumonia B: 05/17/2023 minute clinic [...] She states she will go to the [place] ED vs returning to for this. She will call back if she has continued or worsening symptoms. Reason for Disposition Patient sounds very sick or weak to the triager Protocols used: Pneumonia Follow-up [id number] documented in this [facility]12-12-2023 Emergency department Note* MICHAEL Germain CNP - 05/31/2023 12:33 PM EST EMERGENCY DEPARTMENT ENCOUNTER Pt Name: Casimiro Liu [...] the emergency department with chief complaint of withcough, right flank pain, right posterior rib cage pain. Patient states he was seen at an urgent care 2 weeks ago and diagnosed with pneumonia, she states she was given antibiotics and steroids and aninhaler states she felt better for couple days [...] In compliance with this authorization, please visit www.fda.gov/media/299062/download or www.fda.gov/media/130830/download to access the applicable information sheets. COMPLETE [...] as well as an aid in the diagnosisof deep vein thrombosis (DVT). CBC (HEMOGRAM) - [...] Culture. Procedure Abnormality Status --------- ------ Complete Urinalysis[[id number]] Abnormal Final result Please view results for [...] indication of chorionic carcinoma, hydatiform mole, or multiplepregnancy. Decreasing hCG concentrations indicate threatened or missed , recent terminationof , ectopic , gestosis or intrauterine . Tiffani- and postmenopausal females may have detectable hCG concentrations (< or = to 14 mIU/mL) due to pituitary production of hCG. Serum follicle-stimulating hormone measurement may aid in ruling-out in this population. Cutoffs of greater than 20 to 45 mIU/mL have been suggested and are method dependent. False-elevations(called phantom human chorionic gonadotropin: hCG) may occur with patients who have human antianimal or heterophilic antibodies. Some specimens may not dilute linearly due to abnormal forms of hCG. Elevated hCG concentrations not associated with are found in patients with other diseases such as tumors of the germ cells, ovaries, bladder, pancreas, stomach, lungs, and liver. This test isnot intended to detect or monitor tumors or [...] chief complaint of with cough, right flank pain,right posterior rib cage pain. Patient states he [...] associated with this patient's presentation includes pneumonia, thoracicstrain, urinary tract infection. Our workup consisted of [...] independent interpretation of EKG(s) EKG per my interpretationshows sinus rhythm with a rate 86 no [...] sepsis, or septic shock (If yes use .sepsiscoremeasure): no FINAL IMPRESSION 1. Influenza A 2. Acute cough 3. Strain of thoracic back region DISPOSITION Discharge 05/31/2023 03:34:33 PM PATIENT REFERRED TO: Nura Hodgson MD [address] [place] [address] Schedule an appointment as soon as possible for a visit in [address] [facility] ED [address] [facility] [address] If symptoms worsen DISCHARGE MEDICATIONS: New Prescriptions BENZONATATE (TESSALON) 100 MG CAPSULE Take 1 capsule (100 mg) by mouth in the morning and 1 capsule(100 mg) at noon and 1 capsule (100 [...] are any questions or concerns please feel freeto contact the dictating provider for clarification.) MICHAEL Germain CNP (electronically signed) Emergency Medicine Provider MICHAEL Germain CNP 05/31/23 1548 * Gregoria Vega RN - 05/31/2023 12:33 PM EST Pt was seen at a few weeks ago and diagnosed with pneumonia. Pt was started on oral atb and steroids. States she started to feel better and then Tuesday her pain/cough came back documented in this [facility]12-12-2023 Emergency department Triage note* Gregoria Vega RN - 05/31/2023 12:33 PM EST Pt was seen at a few weeks ago and diagnosed with pneumonia. Pt was started on oral atb and steroids. States she started to feel better and then Tuesday her pain/cough came back [facility] [id number] Physician Emergency department Note* MICHAEL Germain CNP - 05/31/2023 12:33 PM EST EMERGENCY DEPARTMENT ENCOUNTER Pt Name: Casimiro Liu [...] the emergency department with chief complaint of withcough, right flank pain, right posterior rib cage pain. Patient states he was seen at an urgent care 2 weeks ago and diagnosed with pneumonia, she states she was given antibiotics and steroids and aninhaler states she felt better for couple days [...] In compliance with this authorization, please visit www.fda.gov/media/830134/download or www.fda.gov/media/205192/download to access the applicable information sheets. COMPLETE [...] as well as an aid in the diagnosisof deep vein thrombosis (DVT). CBC (HEMOGRAM) - [...] Culture. Procedure Abnormality Status --------- ------ Complete Urinalysis[[id number]] Abnormal Final result Please view results for [...] indication of chorionic carcinoma, hydatiform mole, or multiplepregnancy. Decreasing hCG concentrations indicate threatened or missed , recent terminationof , ectopic , gestosis or intrauterine . Tiffani- and postmenopausal females may have detectable hCG concentrations (< or = to 14 mIU/mL) due to pituitary production of hCG. Serum follicle-stimulating hormone measurement may aid in ruling-out in this population. Cutoffs of greater than 20 to 45 mIU/mL have been suggested and are method dependent. False-elevations(called phantom human chorionic gonadotropin: hCG) may occur with patients who have human antianimal or heterophilic antibodies. Some specimens may not dilute linearly due to abnormal forms of hCG. Elevated hCG concentrations not associated with are found in patients with other diseases such as tumors of the germ cells, ovaries, bladder, pancreas, stomach, lungs, and liver. This test isnot intended to detect or monitor tumors or [...] chief complaint of with cough, right flank pain,right posterior rib cage pain. Patient states he [...] associated with this patient's presentation includes pneumonia, thoracicstrain, urinary tract infection. Our workup consisted of [...] independent interpretation of EKG(s) EKG per my interpretationshows sinus rhythm with a rate 86 no [...] sepsis, or septic shock (If yes use .sepsiscoremeasure): no FINAL IMPRESSION 1. Influenza A 2. Acute cough 3. Strain of thoracic back region DISPOSITION Discharge 05/31/2023 03:34:33 PM PATIENT REFERRED TO: Nura Hodgson MD [address] [facility] [address] Schedule an appointment as soon as possible for a visit in [address] [facility] ED [address] [facility] [address] If symptoms worsen DISCHARGE MEDICATIONS: New Prescriptions BENZONATATE (TESSALON) 100 MG CAPSULE Take 1 capsule (100 mg) by mouth in the morning and 1 capsule(100 mg) at noon and 1 capsule (100 [...] are any questions or concerns please feel freeto contact the dictating provider for clarification.) MICHAEL Germain CNP (electronically signed) Emergency Medicine Provider MICHAEL Germain CNP 05/31/23 1548 [facility]12-12-2023 Telephone encounter Note* Telephone Encounter - Britta Harry RN - 05/31/2023 12:04 PM EST S: the patient is calling the [facility] about pneumonia B: 05/17/2023 [facility] A: the patient reports that she [...] She states she will go to the [place] ED vs returning to for this. She will call back if she has continued or worsening symptoms. Reason for Disposition Patient sounds very sick or weak to the triager Protocols used: Pneumonia Follow-up [id number] [facility]10-23-2023 Hospital Discharge instructions* Discharge Instructions* Sharlene Mann PA-C - 04/11/2023 10:38 AM EDT Return to the ER with new or worsening symptoms including uncontrolled pain, fever, chills, chest pain, or shortness of breath. Follow up with your PCP for further evaluation and treatment as needed. Take Mucinex DM, Tylenol, and Ibuprofen for pain and fever control and Tessalon for cough. * Attachments The following attachments cannot be sent through Care Everywhere. * COVID-19 Overview (Zimbabwean) documented in this [facility]10-23-2023 Emergency department Note* Sharlene Mann PA-C - 04/11/2023 8:54 AM EDT EMERGENCY DEPARTMENT ENCOUNTER Pt Name: Casimiro Liu Birthdate 1980 Date of evaluation: 04/11/2023 ED Provider: Sharlene Mann PA-C Patient seen independently within my scope of practice with an Emergency Medicine attending available for supervision. CHIEF COMPLAINT Chief Complaint Patient presents with Headache Generalized GARCIA/rash all over body since starting amoxicillin on 03/31 for sinus/ear infection. Norash noted on exam Flu Symptoms HISTORY OF [...] that she has felt subjective fevers and chills,has not had an elevated temperature at home. [...] In compliance with this authorization, please visit www.fda.gov/media/106603/download or www.fda.gov/media/212852/download to access the applicable information sheets. All other labs were within normal range or not returned as of this dictation. EMERGENCY DEPARTMENT COURSE and DIFFERENTIAL DIAGNOSIS/MDM: Vitals: Vitals: 04/11/2357 BP: (!) 190/114 Pulse: 87 Resp: 18 [...] Discharge 04/11/2023 10:36:41 AM PATIENT REFERRED TO: [facility] ED [address] [facility] [address] If symptoms worsen Nura Hodgson MD [address] [facility] [address] In 3 days DISCHARGE MEDICATIONS: Discharge Medication List as of 04/11/2023 10:38 AM START taking these medications Details benzonatate (Tessalon) 100 MG capsule Take 1 capsule (100 mg) by mouth in the morning and 1 capsule(100 mg) at noon and 1 capsule (100 mg) before bedtime. Do all this for 7 days. Do not crush or chew.., Starting 04/11/2023, Until Tue04/18/2023, Normal dextromethorphan-guaiFENesin (Mucinex DM) 30-600 MG 12 [...] are any questions or concerns please feel freeto contact the dictating provider for clarification.) Sharlene Mann PA-C (electronically signed) Emergency Medicine Provider Sharlene Mann PA-C 04/11/23 1405 documented in this [facility]10-23-2023 Physician Emergency department Note* Sharlene Mann PA-C - 04/11/2023 8:54 AM EDT EMERGENCY DEPARTMENT ENCOUNTER Pt Name: Casimiro Liu Birthdate 1980 Date of evaluation: 04/11/2023 ED Provider: Sharlene Mann PA-C Patient seen independently within my scope of practice with an Emergency Medicine attending available for supervision. CHIEF COMPLAINT Chief Complaint Patient presents with Headache Generalized GARCIA/rash all over body since starting amoxicillin on 03/31 for sinus/ear infection. Norash noted on exam Flu Symptoms HISTORY OF [...] that she has felt subjective fevers and chills,has not had an elevated temperature at home. [...] In compliance with this authorization, please visit www.fda.gov/media/903891/download or www.fda.gov/media/568914/download to access the applicable information sheets. All [...] Discharge 04/11/2023 10:36:41 AM PATIENT REFERRED TO: [facility] ED [address] [facility] [address] If symptoms worsen Nura Hodgson MD [address] [facility] [address] In 3 days DISCHARGE MEDICATIONS: Discharge Medication List as of 04/11/2023 10:38 AM START taking these medications Details benzonatate (Tessalon) 100 MG capsule Take 1 capsule (100 mg) by mouth in the morning and 1 capsule(100 mg) at noon and 1 capsule (100 [...] are any questions or concerns please feel freeto contact the dictating provider for clarification.) Sharlene Mann PA-C (electronically signed) Emergency Medicine Provider Sharlene Mann PA-C 04/11/23 1405 [id number] Telephone encounter Note* Telephone Encounter - Sweetie Padilla MA - 02/15/2023 4:02 PM EDT error [id number] Miscellaneous Notes* Telephone Encounter - Sweetie Padilla MA - 02/15/2023 4:02 PM EDT error documented in this encounterSUniversity Hospitals Geneva Medical [id number] History of Present illness Narrative* Nerissa Watson MD - 01/24/2023 6:00 PM EDT Casimiro Liu is a 42 year old [...] 3 months for the next one-year period. Nerissa Watson MD documented in this encounterSouth[facility] Center07-20-2023 Miscellaneous Notes* Telephone Encounter - Hollie Greene - 01/06/2023 1:04 PM EDT Patient called asking for a letter to return to work on 01/10/23. She would like it faxed to human resources at [phone]. documented in this encounterSouthview Medical Center07-20-2023 Instructions* Patient Instructions* Daniella Hidalgo DO - 01/06/2023 9:39 AM EDT SALINE INFUSION SONOGRAPHY (SIS) is an office procedure used to evaluate the intrauterine cavity orinside lining of the uterus. This is achieved [...] for scheduling the procedure documented in this encounterSouthview Medical Center07-20-2023 History of Present illness Narrative* Daniella Hidalgo DO - 01/06/2023 9:29 AM EDT SERVICE DATE: 01/06/2023 SERVICE TIME: 9:29 AM [...] No history of dysuria, frequency or incontinence DECONTAMINATOR: Negative for abnormal vaginal bleeding, abnormal vaginal [...] op Daniella Hidalgo DO documented in this encounterSouthview Medical Center07-17-2023 Miscellaneous Notes* Telephone Encounter - Meme Rehman RN - 01/03/2023 4:33 PM EDT Aware of Dr Watson's response. Meme Rehman RN * Telephone Encounter - Nerissa Watson MD - 01/03/2023 4:24 PM EDT She can go back 2 weeks after surgery, dies not need to be seen first * Telephone Encounter - Meme Rehman RN - 01/03/2023 2:06 PM EDT Aware of Dr Watson's message. Asking when she can return to work after having the LEEP? She thinks you told her 2 wks (which would be 7.21 but she doesn't see you until 8.7 for her f/u.) Can she go back to work before being seen is her question? Please advise. Thank you, Meme Rehman RN * Telephone Encounter - Nerissa Watson MD - 01/03/2023 11:03 AM EDT The pathology report shows a high grade abnormality but no cancer, so she will be able to have a simple hysterectomy documented in this encounterSouthview Medical Center04-25-2023 Miscellaneous Notes* Telephone Encounter - Nerissa Watson MD - 10/12/2022 3:07 PM EDT Diagnostic films ordered documented in this encounterSouthview Medical Center04-25-2023 Miscellaneous Notes* Letter - Mammography Coordinator - 10/12/2022 2:40 PM EDT [address] [place] [address] October 12, 2022 PID: [id number] Casimiro Liu [address] [place] [address] Dear Ms. Liu, Your recent breast imaging exam on 10/11/2022 showed a possible finding that requires additional imaging studies for a complete evaluation. Most such findings are probably benign (not cancer). If you have a healthcare provider who ordered/prescribed your screening mammogram: Please call [phone] to schedule an appointment for your additional imaging (if you have not already done so). If you DO NOT have a healthcare provider (ie you did not have an order/prescription for your screening mammogram): Please call [phone] to schedule an appointment for your additional [...] and reports are kept on file at [facility] as part of your permanent medical record, and are available for your continuing care. Thank you for allowing us to help in meeting your health care needs. Sincerely, Dr. Sotelo Interpreting Radiologist [facility] Breast [facility] (Additional imaging) documented in this encounterSouthview Medical Center04-21-2023 History of Present illness Narrative* Kami Vaughn LPN - 10/08/2022 10:15 AM EDT Patient was able to ambulate safely to the examination room. Provider was not notified of possible fall risk * Kami Vaughn LPN - 10/08/2022 10:15 AM EDT Pt asked if they have been to specialist,been in ER /hospitalized or had testing since last visit. no * Nataliia Arora DO - 10/08/2022 10:15 AM EDT INDIRECT SUPERVISION THIS SERVICE IS TO BE BILLED UNDER THE PRIMARY CARE EXCEPTION ([facility] -) During or immediately after this visit, I discussed this case with the treating resident. Our discussion included the history obtained by the resident, the resident's exam findings, and the resident's treatment plan. The resident's note reflects the information we discussed, and I agree with the resident's assessment and treatment plan. * Selin Monson MD - 10/08/2022 10:15 AM EDT Images from the original note were not included. [facility] [address] [facility] [address] Dept: [phone] Dept Loc: [phone] Visit type: Established Reason for Visit: Eye [...] eyes for up to 5 days. - [facility]; Future - Eye exam with a both magnification and fluorescein stain with blue light. No foreign body identified. Patient was given referral to Ophthalmology for further eval. Will Rx ophtalmic solution in themeantime. Discussed strict return precaution. Subjective Eye Pain Subjective Patient ID: Casimiro Liu is a 42 y.o. 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 Was working with a Glow machine on Tuesday (5 days prior) did [...] alert. Data Reviewed and Summarized Labs: Selin Monson MD PGY-3 Development Lead 10/08/2022 3:55 PM documented in this encounterSUniversity Hospitals Geneva Medical CenterGjlanz32-11-4771 Telephone encounter Note* Telephone Encounter - Janet Barnes RN - 10/08/2022 8:01 AM EDT S: Patient spoke with [facility] nurse regarding eye swollen B: Onset of symptoms/concern 5 days A: Patient complaining of eye pain, redness, itiching. Denies vision changes. R: OV scheduled for today with Dr. Monson. Patient understands care advice. No further needs at this time. Patient instructed to call back with new or worsening symptoms. Reason for Disposition MODERATE eye pain or discomfort (e.g., interferes with normal activities or awakens from sleep; more than mild) Protocols used: Eye Pain and Other Hdvelamd-ZEBPK-DW [facility] HospitalJnyqaq78-43-2071 Miscellaneous Notes* Telephone Encounter - Janet Barnes RN - 10/08/2022 8:01 AM EDT S: Patient spoke with [facility] nurse regarding eye swollen B: Onset of symptoms/concern 5 days A: Patient complaining of eye pain, redness, itiching. Denies vision changes. R: OV scheduled for today with Dr. Monson. Patient understands care advice. No further needs at this time. Patient instructed to call back with new or worsening symptoms. Reason for Disposition MODERATE eye pain or discomfort (e.g., interferes with normal activities or awakens from sleep; more than mild) Protocols used: Eye Pain and Other Tcnpzlbt-QAKYH-RO documented in this [facility]04-04-2023 History of Present illness Narrative* Nerissa Watson MD - 09/21/2022 1:54 PM EDT Casimiro Liu is an 42 year old woman who presents for annual exam. LMP: Patient's last menstrual period was 02/18/2018 (exact date). Periods are regular q 28-30 days,lasting 6 days. Dysmenorrhea:moderate, occurring first 1-2 days [...] hematuria, nocturia, incontinence. and Reports menstrual problem DECONTAMINATOR: Denies any abnormal vaginal discharge, irregular bleeding, [...] intrauterine contraceptive device (IUD) - ICD9: V25.42, ICD10:Z30.431 - She wants to leave it in until 2024 4. Encounter for screening mammogram for malignant neoplasm of breast - ICD9: V76.12, ICD10: Z12.31 - Completed pelvic and breast exam - Encouraged monthly BSE - Follow up for annual exam in one year. - [facility] Nerissa Watson MD documented in this encounterSouthview Medical Center03-16-2023 Telephone encounter Note * Telephone Encounter - Griselda Aguila RN - 09/02/2022 9:20 AM EDT S: Patient spoke with [facility] nurse regarding Back pain ( patient hurt back, not sure how she did it ) B: Onset of symptoms/concern : yesterday A: Been 2 days since flipped my bed over. Pain in lower back right side - No apparent injury . It's hard to sit on the toilet. It's not pain until I try to stand up or sit down. Pain is more severe today. If I move my right leg it would hurt my back. Taking aleve - not helping. R: Advised home care on back pain. Pt said she would call back if pain worsened. Patient understands care advice. No further needs at this time. Patient instructed to call back with new or worsening symptoms. Reason for Disposition Caused by a twisting, bending, or lifting injury Protocols used: Back Ezrk-TBTYF-FF [facility] [id number] Miscellaneous Notes* Telephone Encounter - Griselda Aguila RN - 09/02/2022 9:20 AM EDT S: Patient spoke with [facility] nurse regarding Back pain ( patient hurt back, not sure how she did it ) B: Onset of symptoms/concern : yesterday A: Been 2 days since flipped my bed over. Pain in lower back right side - No apparent injury . It's hard to sit on the toilet. It's not pain until I try to stand up or sit down. Pain is more severe today. If I move my right leg it would hurt my back. Taking aleve - not helping. R: Advised home care on back pain. Pt said she would call back if pain worsened. Patient understands care advice. No further needs at this time. Patient instructed to call back with new or worsening symptoms. Reason for Disposition Caused by a twisting, bending, or lifting injury Protocols used: Back Cytw-OLGVI-HK documented in this [facility]07-20-2022 History of Present illness Narrative* Nerissa Watson MD - 01/06/2022 3:42 PM EDT Casimiro Liu is a 41 year old [...] external genitalia normal, normal Bartholin's glands, urethra, [place]'s glands, no vulvar lesions, no cervical lesions, [...] with Ultrasound transvaginal - PELVIC US WHI Nerissa Watson MD, MD documented in this encounterSouthview Medical Center01-15-2022 NoteReviewed discharge summary with patient. Patient verbalized understanding. Patient aware RX sent to [facility] in [facility]01-15-2022 Note Medical Teaching Service Discharge Summary Patient: Casimiro Liu : 1980 Acct: [id number] PCP: No primary care provider on file. [...] or EUS Disposition: Home Recommended Follow Up: [facility] [address] [facility] [address] [place] [address] Call in 3 days Hospital follow up Leon Frias MD [address] [facility] [address] In 2 weeks Hospital follow u (more content not included)...[facility]09-18-2018 History of Past illness Narrative* Problem Noted Date Resolved Date Pancreatic abnormality 03/07/2018 8 Tobacco abuse 07/05/2016 03/15/2018 documented as of this encounter (statuses as of 01/06/2022) [facility] of Past illness Narrative* Problem Noted Date Resolved Date Pancreatic abnormality 03/07/2018 8 Tobacco abuse 07/05/2016 03/15/2018 documented as of this encounter (statuses as of 09/21/2022) [facility] History of Past illness Narrative* Problem Noted Date Resolved Date Pancreatic abnormality 03/07/2018 8 Tobacco abuse 07/05/2016 03/15/2018 documented as of this encounter (statuses as of 10/13/2022) [facility] of Past illness Narrative* Problem Noted Date Resolved Date Pancreatic abnormality 03/07/2018 8 Tobacco abuse 07/05/2016 03/15/2018 documented as of this encounter (statuses as of 10/14/2022) [facility] of Past illness Narrative* Problem Noted Date Resolved Date Pancreatic abnormality 03/07/2018 8 Tobacco abuse 07/05/2016 03/15/2018 documented as of this encounter (statuses as of 12/02/2022) [facility] of Past illness Narrative* Problem Noted Date Resolved Date Pancreatic abnormality 03/07/2018 8 Tobacco abuse 07/05/2016 03/15/2018 documented as of this encounter (statuses as of 12/03/2022) [facility] of Past illness Narrative* Problem Noted Date Diagnosed Date Resolved Date Pancreatic abnormality 03/07/201803/30 Tobacco abuse 07/05/2016 03/15/2018 documented as of this encounter (statuses as of 01/03/2023) [facility] of Past illness Narrative* Problem Noted Date Diagnosed Date Resolved Date Pancreatic abnormality 03/07/201803/30 Tobacco abuse 07/05/2016 03/15/2018 documented as of this encounter (statuses as of 01/06/2023) [facility] of Past illness Narrative* Problem Noted Date Diagnosed Date Resolved Date Pancreatic abnormality 03/07/201803/30 Tobacco abuse 07/05/2016 03/15/2018 documented as of this encounter (statuses as of 01/06/2023) [facility] of Past illness Narrative* Problem Noted Date Diagnosed Date Resolved Date Pancreatic abnormality 03/07/201803/30 Tobacco abuse 07/05/2016 03/15/2018 documented as of this encounter (statuses as of 01/25/2023) [facility] CenterConsult note Author Isabela Jacinto [facility] Note Date/Time 2024 2:20 pm [facility] Medical Records Department [address] [place] [address] Counseling Note - Pharmacy 09/19/24 1419 MR#: [id number] Acct: [id number] Name: LIUCASIMIRO BAIRD Rep #:[id number] : 1980 44 From: Isabela Jacinto PCP: Dr. Mary Escobar MD Status:ADM IN Y Location: [place] [address] Pharmacy [facility] Pharmacy Service has performed discharge medication reconciliation and counseling for this patient. 1. AMLODIPINE 10MG PO DAILY 2. LOSARTAN 100MG PO DAILY 3. ONDANSETRON ODT 4MG PO Q6H PRN NAUSEA/VOMITING 4. OXYCODONE 5MG PO Q6H PRN PAIN The patient's discharge medication list was reviewed for discrepancies and discrepancies were resolved. The patient was counseled on the following discharge medications and changes in medications for homegoing were reviewed. The Reason for Use, instructions for use, and potential side effects were reviewed for all new medications. The patient's questions regarding all of their medications were answered. The patient was able to verbally demonstrate an understanding of their dischargemedications. Medications at Discharge Home Medications fluoxetine 40 mg capsule 40 mg PO DAILY mental health 09/12/24 ipratropium bromide 42 mcg (0.06 %) nasal spray 1 spray intranasal TID PRN PRN allergy symptoms 09/12/24 amlodipine 10 mg tablet 10 mg PO DAILY 30 days #30 tabs 09/19/24 losartan 100 mg tablet 100 mg PO DAILY 30 days #30 tabs 09/19/24 ondansetron 4 mg disintegrating tablet 4 mg PO Q6H PRN nausea and vomiting 3 days #12 tabs 09/19/24 oxycodone 5 mg tablet 5 mg PO Q6H PRN pain 3 days #12 tabs 09/19/24 09/19/24 1420 <Electronically signed by Isabela Jacinto> Date _ Isabela Jacinto Cosigner Signature (if applicable): Date CC: ~ Signed [facility] Work Phone: Consult note Author [facility] Note Date/Time November 29, 2024 2:16 pm [facility] Medical Records Department [address] [place] [address] Anesthesia Postop Eval I 11/29/24 1415 MR#: [id number] Acct: [id number] Name: CASIMIRO LIU Rep #:[id number] : 1980 44 From: Darryn Fong PCP: Dr. Mary Escobar MD Status:REG SD C Y Race: C Location: [place] [address] Anesthesia: Postop Eval I Current Vital Signs Temperature: 98.3 F Pulse Rate: 79 Blood Pressure: 115/77 Respiratory Rate: 18 Pulse Ox: 98 Assessment Airway patent: Yes Spontaneous unlabored respirations: Yes nausea: No Vomiting: No Anesthesia Complication: No Fluid Hydration Crystalloid volume administer (ml): 800 Total IV fluid infused: 800 Progress Note Anesthesia document: Postop Eval 1 completed: Yes 11/29/24 1416 <Electronically signed by Darryn CHEATHAM> Date _ Darryn Blancas TOLL TEST DESK WORKER Cosigner Signature: Date CC: ~ Signed [facility] Work Phone: Consult note Author Santos Perez [facility] Note Date/Time November 29, 2024 3:54 pm [facility] Medical Records Department [address] [facility] [place] [address] Anesthesia Postop Eval II 11/29/24 1455 MR#: [id number] Acct: [id number] Name: CASIMIRO LIU Rep #:[id number] : 1980 44 From: Santos Perez MD PCP: Dr. Mary Escobar MD Status:REG SD C Y Race: C Location: [place] [address] Anesthesia Postop Eval I Sum Postop Eval Completion status Anesthesia document: Postop Eval 1 completed: Yes Anesthesia Postop Eval I Summary Anesthesia Postop Eval I Summary: Anesthesia Postop Eval I: Assessment Summary Airway patent Yes 11/29/24 14:15 TOLL TEST DESK WORKER.DMAY Spontaneous unlabored Yes 11/29/24 14:15 TOLL TEST DESK WORKER.DMAY respirations Mental status nausea No 11/29/24 14:15 TOLL TEST DESK WORKER.DMAY Vomiting No 11/29/24 14:15 TOLL TEST DESK WORKER.DMAY Anesthesia Postop Eval I: Fluid Summary Crystalloid volume administer 800 11/29/24 14:15 TOLL TEST DESK WORKER.DMAY (ml) Colloids volume administered ( ml) Blood Product volume administered (ml) Total IV fluid infused 800 11/29/24 14:15 TOLL TEST DESK WORKER.DMAY Anesthesia Postop Eval I: Summary Notes Anesthesia Complication No 11/29/24 14:15 TOLL TEST DESK WORKER.DMAY Anesthesia Complication Comment: Post-operative progress note Anesthesia: Postop Eval II Evaluation Mental status: Awake Pain Level: 1 nausea: No Vomiting: No 11/29/24 1455 <Electronically signed by Santos Perez MD > Date _ Santos Johnsonignsameera Signature: Date CC: ~ Signed [facility] Work Phone: Discharge summary Author Conner Landry [facility] Note Date/Time September 24, 2024 7:46 am [facility] Medical Records Department [address] [place] [address] Emergency Department Summary 09/24/24 MR#: [id number] Acct: [id number] Name: CASIMIRO LIU Rep #:[id number] : 1980 44 From: Conner Landry MD PCP: Dr. Mary Escobar MD Status:REG ER Location: ED HPI HPI - GI History of Present Illness Chief Complaint: Flank Pain Informant: patient Narrative Narrative: 44-year-old female had relatively abrupt onset of pain in her right flank mostlyin the side and front of her abdomen on the right side yesterday afternoon, 12 or so hours ago, has been colicky, but worst this morning. Associated with an episode of vomiting prior to coming here. No urinary issues. No fevers or chills. No worse with movement. Never had this before. No history of kidney stones that she knows of. She became concerned because 1 week ago she had an ERCP with a stent placed due to finding choledocholithiasis and a biliary stricture, presumably which had leg to an episode of acute pancreatitis, which gave her high epigastric severe pains much different than what she is experiencing now, she had a cholecystectomy about 19 years ago. [facility] Medical History Pancreatitis Hypertension Anxiety Home Medications ?Medication ?Instructions ?Recorded ?Last Taken ?Type fluoxetine 40 mg capsule 40 mg PO DAILY mental health 09/12/24 Unknown History ipratropium bromide 42 mcg (0.06 1 spray intranasal TI D PRN PRN 09/12/24 Unknown History %) nasal spray allergy symptoms amlodipine 10 mg tablet 10 mg PO DAILY 30 days #30 t abs 09/19/24 Unknown Rx losartan 100 mg tablet 100 mg PO DAILY 30 days #30 tabs 09/19/24 Unknown Rx ondansetron 4 mg disintegrating 4 mg PO Q6H PRN nausea and 09/19/24 Unknown Rx tablet vomiting 3 days #12 tabs oxycodone 5 mg tablet 5 mg PO Q6H PRN pain 3 days #12 09/19/24 Unknown Rx tabs Allergy/AdvReac Type Severity Reaction Status Date / Time No Known Allergies Allergy Verified 09/24/24 04:32 Family History no significant family his Surgical History S/P ERCP Hx of cholecystectomy Social History Smoking Status: Former smoker alcohol intake: current alcohol intake frequency: 0-2 drinks per day substance use type: does not use ROS ROS ED Constitutional Constitutional ED: Denies chills or fever(s) Eyes Eyes: Denies change in vision or diplopia ENT ENT ED: Denies rhinorrhea or sore throat Cardiovascular Cardiovascular: Denies chest pain or palpitations Respiratory/Chest Respiratory/Chest: Denies cough or dyspnea Gastrointestinal Gastrointestinal: Reports abdominal pain, nausea and vomiting; Denies diarrhea Genitourinary Genitourinary ED: Reports as per HPI and flank pain; Denies dysuria or hematuria Musculoskeletal Musculoskeletal: Reports back pain; Denies neck pain Integumentary Denies abscess or rash Neurologic Neurologic: Denies headache(s), paresthesias or weakness Psychiatric Psychiatric: Denies suicidal thoughts EXAM Physical Exam Const Vital Signs: 09/24/24 04:32 09/24/24 05:58 Temperature 98.7 F 98.4 F Temperature Source Oral Oral Pulse Rate 83 76 Respiratory Rate 18 16 Blood Pressure 161/95 H 131/84 H Blood Pressure Mean 117 99 Pulse Ox 100 96 Oxygen Delivery Method Room Air Room Air Positive well nourished and well developed Constitutional Narrative: Well-appearing in no distress General Appearance ED: well developed and NAD HEENT Reports moist mucous membranes normocephalic and atraumatic Eyes PERRL and EOMs intact bilaterally Neck full ROM and supple Resp normal respiratory effort and clear to auscultation bilaterally Cardio regular rate, regular rhythm and no murmurs GI non-distended GI Narrative: Tender throughout the right side of her abdomen, no guarding or rebound, negative Hagen. RUQ minimally tender compared with right mid and lower abd. No jaundice. Auscultation: normoactive bowel sounds Palpation: soft Back/Spine no CVA tenderness General Back: other FROM Extremity normal to inspection General Extremety ED: Negative for edema, pulses abnormal or tenderness General Extremity: Negative for edema or pulses abnormal Neuro oriented x3, CN's II-XII intact bilaterally, no sensory deficits noted and gait normal Sensorium / Orientation: awake and alert Motor Exam: strength 5/5 throughout Psych mental status grossly normal and thought process normal Skin no rashes or lesions noted and no wounds MDM MDM MDM Narrative Medical decision making narrative: Reviewing recent imaging, she had a CT of the abdomen/pelvis 1 week ago that showed no nephrolithiasis, she had some mild bilateral perinephric stranding. Her symptoms right now are concerning for renal colic given its location, however no obstructive uropathy from a stone is unlikely. Repeating this imaging may be helpful in discerning if there is any renal asymmetry. Pyelonephritis is in the differential, but would be an atypical case and she hasno urinary symptoms preceding this. Will also obtain liver enzymes give her doses of Toradol and Zofran, she does not want any narcotics because they made her feel poorly last time she received them. Her test is negative ruling out ectopic. She has a significant leukocytosis. That combined with thefact that she had no uroliths throughout her urinary tract 1 week ago, obtained the CT with IV contrast. I reviewed the images and the report which I agree with. Essentially there are a lot of findings but it shows that everything thatshe had before appears to be improved or resolved including the right pleural effusion, so that is probably not causing her symptoms. The only thing that is new that was not there before is mild bladder wall thickening, but her urinalysis does not show signs of infection. There is occult blood, but again no uroliths. The rest of her labs are normal including liver enzymes except foralkaline phosphatase just barely abnormal at 121 which is nonspecific. I went to reevaluate her. After the Toradol she is feeling much better, her pain is 2/10, and she has no lower abdominal tenderness, just very mild in her right upper quadrant only. No epigastric tenderness. I discussed with Dr. Sotelo wholooked at the CT as well, and agrees that everything looks pretty good and that she can follow-up as an outpatient. I am going to give her a dose of cefepime 2g in the off chance that this could be early cholangitis, but she really is not presenting with classic cholangitis and she has no fevers, jaundice or elevated bilirubin. Given that her vital signs are normal, she is in very little discomfort, ambulatory in the ER and is well-appearing, I think after the dose of antibiotic she can go home and follow-up closely with GI and/or her PCP. Sheis comfortable with that plan we discussed all of this. Lab Data Attestation: I reviewed the patient's lab results. Labs: Laboratory Results - last 24 hr 09/24/24 09/24/24 09/24/24 04:39 04:46 04:50 WBC 22.3 H RBC 5.04 Hgb 13.4 Hct 42.6 MCV 84.5 MCH 26.6 L MCHC 31.5 L RDW Std Deviation 42.2 RDW Coeff of Chelsie 13.6 Plt Count 483 H MPV 9.5 Immature Gran % (Auto) 1.000 H Neut % (Auto) 79.7 H Lymph % (Auto) 12.7 L [place]arrant % (Auto) 3.9 Eos % (Auto) 2.3 Baso % (Auto) 0.4 Absolute Neuts (auto) 17.7 H Absolute Lymphs (auto) 2.82 Nucleated RBC % 0 Sodium 136 Potassium 4.4 Chloride 97 L Carbon Dioxide 26.4 Anion Gap 13 BUN 8 Creatinine 0.58 L Estim Creat Clear Calc 141.04 Est GFR (MDRD) Non-Af 115 BUN/Creatinine Ratio 14.3 Glucose 155 H Calcium 10.8 Total Bilirubin 0.34 AST 27 ALT 29 Alkaline Phosphatase 121 H Total Protein 8.1 Albumin 4.3 Globulin 3.8 Albumin/Globulin Ratio 1.1 Serum , Qual NEGATIVE Urine Color Straw Urine Clarity Cloudy Urine pH 5.0 Ur Specific [place] 1.025 Urine Protein 30 H Urine Glucose (UA) Normal Urine Ketones Negative Urine Occult Blood 250 H Urine Nitrite Negative Urine Bilirubin Negative Urine Urobilinogen Normal Ur Leukocyte Esterase Negative Urine RBC 0 SEEN Urine WBC 0 SEEN Ur Squamous Epith Cells 0-5 SEEN Amorphous Sediment 1+ Urine Bacteria 0 SEEN Urine Mucus 0 SEEN Radiography Diagnostic Testing: Clinical Impression(s) from Imaging Studies Abdomen/Pelvis CT 09/24/24 05:00 IMPRESSION: 1. Unchanged hepatomegaly with hepatic steatosis. 2. Moderately enlarged, hypodense pancreas suggestive of moderate changes of acute pancreatitis, slightly improved. 3. Mild decrease in tiffani-pancreatic inflammatory fat stranding and edema. 4. Significant decrease of perihepatic free fluid. 5. CBD stent is in good position. 6. Pneumobilia is noted, expected finding secondary to sphincterotomy. 7. Uncomplicated colonic diverticulosis. 8. Unchanged mild splenomegaly. 9. Interval appearance of diffuse thickening of the bladder which can be correlated with urinalysis to exclude mild cystitis. 10. Mild diffuse thickening of the stomach, probably gastritis. This is unchanged. 11. Resolution of right pleural effusion. 12. Minimal residual left pleural effusion. 13. Improved bibasilar pulmonary atelectasis. 14. Mild diffuse spondylosis. 15. Fat containing umbilical hernia without incarceration, unchanged. Reading Location: [place] [address] Discharge Plan Triage Chief Complaint: Flank Pain ED Provider: Conner Landry Dx/Rx/DC Orders Clinical Impression: Right sided abdominal pain, Leukocytosis, History of biliary duct stent placement, History of sphincterotomy of sphincter of Oddi Instructions: Abdominal Pain Prescriptions: No Action ipratropium bromide 42 mcg (0.06 %) spray,non-aerosol 1 spray INTRANASAL TID PRN PRN (Reason: allergy symptoms) fluoxetine 40 mg capsule 40 mg PO DAILY amlodipine 10 mg Tablet 10 mg PO DAILY 30 Days Qty: 30 2RF losartan 100 mg Tablet 100 mg PO DAILY 30 Days Qty: 30 2RF oxycodone 5 mg tablet 5 mg PO Q6H PRN (Reason: pain) 3 Days Qty: 12 0RF ondansetron 4 mg tablet,disintegrating 4 mg PO Q6H PRN (Reason: nausea and vomiting) 3 Days Qty: 12 0RF Primary Care Provider: Mary Escobar Referrals: Mary Escobar MD [Primary Care Provider] - 3-5 Days Arturo Sotelo DO [Med Staff - Active Staff] - 3-5 Days Print Language: Zimbabwean Disposition Disposition: Home, Self Care What to do if you have Problems For any increased pain, shortness of breath, bleeding, nausea or vomiting, chestpain, or any unexpected problems, contact your Primary Care Provider. Call [facility] ([phone]) or report to the closest Emergency Room. Call 911 if necessary. 09/24/24 0746 <Electronically signed by Conner Landry MD> Cosigner Signature (if applicable): CC: Dr. Mary Escobar MD ~ Signed [facility] Work Phone: Discharge summary Author Charlotte Gibbs [facility] Note Date/Time September 29, 2024 10: 17am [facility] Medical Records Department [address] [place] [address] Discharge Summary 09/29/24 0951 MR#: [id number] Acct: [id number] Name: CASIMIRO LIU Rep #:[id number] : 1980 44 From: Charlotte Gibbs DO PCP: Dr. Mary Escobar MD Status:ADM IN Location: [place] [address] Providers Date of Admission: 09/25/24 Date of Discharge: 09/29/24 Primary Care Physician: Mary Escobar MD Consultations 09/25/24 11:59 Consult: Gastroenterology Routine Consulting Provider: Arturo Sotelo Reason for Consult: Recurrent Pancreatitis EMERGENT Consult: No MD Notified: Yes Date Notified: 09/25/24 Time Notified: 09:47 Method of Notification: ED Physician Initiated Reason For Visit: ACUTE PANCREATITIS RESOLVED Diagnosis Discharge Diagnosis (1) Acute pancreatitis: Status: Resolved Code(s): K85.90 - Acute pancreatitis without necrosis or infection, unspecified (2) Hypertension: Status: Inactive Code(s): I10 - Essential (primary) hypertension (3) Leukocytosis: Status: Resolved Code(s): D72.829 - Elevated white blood cell count, unspecified (4) Right sided abdominal pain: Status: Acute Code(s): R10.9 - Unspecified abdominal pain Medications at Discharge Home Medications fluoxetine 40 mg capsule 40 mg PO DAILY mental health 09/12/24 ipratropium bromide 42 mcg (0.06 %) nasal spray 1 spray intranasal TID PRN PRN allergy symptoms 09/12/24 amlodipine 10 mg tablet 10 mg PO DAILY 30 days #30 tabs 04/02/25 losartan 100 mg tablet 100 mg PO DAILY 30 days #30 tabs 09/19/24 oxycodone 5 mg tablet 5 mg PO Q6H PRN pain 3 days #12 tabs 09/19/24 prochlorperazine maleate 5 mg tablet (Compazine) 5 mg PO BID 09/25/24 amoxicillin 875 mg-potassium clavulanate 125 mg tablet 1 tab PO BID #14 tabs 09/29/24 oxycodone 5 mg tablet 10 mg (2 x 5 mg) PO Q6H PRN PRN Pain Score 4-10 3 days #12tabs 09/29/24 Hospital Course Operations None Procedures - (CT abdomen and pelvis) Summary of Care Provided Minutes Spent on Discharge: 37 Hospital Course: CASIMIRO LIU, is a 44 F who presented to the emergency department [facility] on 09/25/2024 with chief complaint of abdominal pain that was intractable. Patient was initially seen on 09/24/2024 and was discharged at 9 AM. She was medicated with narcotics and drove herself. The plan was to discharge her back home however prior to discharge nursing reported that show he was in increased pain and requesting more pain medication. CT of the abdomen and pelvis did show some evidence of acute pancreatitis. Patient was recently admitted from 09/12/2024 through 2024 at which time she was found to have choledocholithiasis however her labs did not support these findings during her presentation. Stent was placed and she was discharged home and stated she was feeling better until Tuesday evening when her pain returned. It slowly worsened over time which led to her initial and then subsequent ED visits. She has had some mild nausea and her abdominal pain is similar to her previous pancreatitis. She does have previous pancreatitis diagnosis remotely at which time she was admitted at [facility]. She had COVID at that time as well. She did receive her primary care physician on the day of presentation and they did put her on some doxycycline for her abdominal pain. She was unclear as what the diagnosis was. When her pain became worse she decided to be evaluated. Vital signs on presentation showed temperature of 98, heart rate 86, respiratory rate 16, bloodpressure was 155/89 and pulse ox was 98% on room air. CBC on presentation showeda leukocytosis with a white count of 25.3 and a left shift with an 84.4% neutrophilia. Chemistry panel was overtly unremarkable other than hyperglycemiawith a blood sugar of 209. Lactic acid was normal at 1.8. Liver functions wereunremarkable. Lipase was 287. Procalcitonin was 0.09. She did have a CT of the abdomen pelvis on 09/24/2024 which showed unchanged hepatomegaly with hepatic steatosis, moderately enlarged pancreas suggestive of acute pancreatitis that was improved from previous likely, mild decrease in peripancreatic inflammation and fat stranding with edema, significant decrease in perihepatic fluid, CBD stent in good position, pneumobilia from previous enterotomy, uncomplicated colonic diverticulosis and mild splenomegaly with thickening of the bladder unchanged from previous which is consistent with gastritis and minimal residual left pleural effusion with resolved right pleural effusion. She was admitted tothe medical floor placed on aggressive IV fluids, antibiotics with Zosyn, was made n.p.o. except for sips and chips and home medications, and placed on IV pain medication. She slowly improved with time. She was evaluated by gastroenterology and they elected to hold off on a repeat ERCP as she was clinically improving. Etiology for pancreatitis is still unclear. Thus far herautoimmune workup is benign however all that has not yet resulted. Her diet wasslowly advanced to the point where she was eating a regular diet for full 24 hours prior to discharge. She was feeling much better and ready to go home on 09/29/2024. She was having very minimal pain. We did send her with some short-term pain medication just in case she gets into trouble. She is to call Dr. Sotelo's office and get an appointment to be seen next week. We advised that she see her primary care physician within the next week as well. Discharge diagnoses: Recurrent acute pancreatitis Leukocytosis Chronic anemia Hyperglycemia-reactive with an A1c of 5.5 Hypertension Hepatomegaly Anxiety Depression Obesity Physical Exam Const alert, oriented x3, no apparent distress, no limitations and well nourished; Negative for average body habitus or healthy appearing Constitutional Narrative: Obese, middle-aged, white female, up walking the halls, appears well, nontoxic General Appearance: cooperative, comfortable, well kempt and well developed Exam Limitations: no limitations Nutritional Appearance: obese HEENT normocephalic, head/scalp atraumatic, hearing grossly normal bilaterally and moist oral mucous membranes Eyes EOMs intact bilaterally and conjunctivae normal Neck supple Neck Narrative: Neck is short thick, trachea midline Resp normal respiratory effort, no retractions, no use of accessory muscles and clearto auscultation bilaterally Auscultation: Negative for rales, rhonchi or wheezes Cardio regular rate, regular rhythm, S1 normal heart sound, S2 normal heart sound, no murmurs, no rub, no gallops and no clicks GI normal to inspection, nondistended, normoactive bowel sounds, soft to palpation and non-tender Extremity no clubbing, cyanosis or edema Extremity Narrative: Pedal and radial pulses are 2+ Skin skin turgor normal, no jaundice, no petechiae and no mottling Neuro oriented x3, moves all extremities and no focal motor deficits Neuro Narrative: Normal gait pattern without assistive device Speech: speech normal Psych affect normal Psych Narrative: Very pleasant, interacts appropriately Weight / BMI Weight Weight: 94.1 kg Body Mass Index (BMI) 35.4 ABG / Lab / Microbiology Data 09/28/24 05:15 09/28/24 05:15 D/C Instructions Discharge Diet: Low fat / Low cholesterol Discharge Activity: Return to Normal Activity Return to work on: 10/01/24 DC O2, CPAP, BIPAP Needs Home O2 Discharge instructions: No Meaningful Use Info Meaningful Use Meaningful Use Diagnoses (Choose all that apply): None applicable Ischemic Stroke Statin Dosing Therapy Reference: STATIN DOSE THERAPY REFERENCE: * Patients > 75 years receive moderate or high dose statin therapy. * Patients 75 years or YOUNGER should receive HIGH intensity statin dose unless contraindicated. You will be required to document reason for non-treatment if statin daily dose does not meet guidelines. HIGH DOSE STATIN THERAPY DAILY Atorvastatin > than or = to 40 mg Rosuvastatin > than or = to 20 mg Amlodipine + Atorvastatin > than or = to 2.5/40 mg Ezetimibe + Simvastatin 10/80 mg Simvastatin 80mg Discharge Plan Admission Admit Date/Time: 09/25/24 09:44 Primary Reason for Your Visit: Abdominal Pain Attending Provider: Charlotte Gibbs Primary Care Provider: Mary Escobar Consulting Providers: Arturo Sotelo Instructions Additional Instructions / Restrictions: Discharge Orders/Prescriptions Prescriptions: New oxycodone 5 mg Tablet 10 mg PO Q6H PRN PRN (Reason: Pain Score 4-10) 3 Days Qty: 12 0RF amoxicillin-pot clavulanate 875-125 mg tablet 1 tab PO BID Qty: 14 0RF Continued prochlorperazine maleate [Compazine] 5 mg tablet 5 mg PO BID ipratropium bromide 42 mcg (0.06 %) spray,non-aerosol 1 spray INTRANASAL TID PRN PRN (Reason: allergy symptoms) fluoxetine 40 mg capsule 40 mg PO DAILY amlodipine 10 mg Tablet 10 mg PO DAILY 30 Days Qty: 30 2RF losartan 100 mg Tablet 100 mg PO DAILY 30 Days Qty: 30 2RF oxycodone 5 mg tablet 5 mg PO Q6H PRN (Reason: pain) 3 Days Qty: 12 0RF Discontinued doxycycline hyclate 100 mg tablet 100 mg PO BID Referrals / Follow Up: Mary Escobar MD [Primary Care Provider] - Within 1 Week Arturo Sotelo DO [Med Staff - Active Staff] - Within 1 Week Disposition Disposition (needs filled in before D/C Order can be placed): Home, Self Care Charges/Coding Visit Charges Inpatient E&M: 58436 Disch Hosp >30min 09/29/24 1017 <Electronically signed by Charlotte Gibbs DO> Cosigner Signature (if applicable): CC: Dr. Mary Escobar MD; Dr. Charlotte Gibbs DO; Arturo Sotelo DO~ Signed [facility] Work Phone: Discharge summary Author Niranjan Noe [facility] Note Date/Time March 30, 2025 1 2:04pm [facility] Medical Records Department [address] [place] [address] Discharge Summary 03/30/25 1157 MR#: [id number] Acct: [id number] Name: CASIMIRO LIU Rep #:[id number] : 1980 44 From: Niranjan Burris PCP: Dr. Mary Escobar MD Status:ADM IN Location: [facility] GF930-6 Providers Date of Admission: 03/27/25 Date of Discharge: 03/30/25 Primary Care Physician: Mary Escobar MD Consultations 03/27/25 21:33 Consult: Gastroenterology Routine Consulting Provider: [facility] Reason for Consult: Recurrent Acute Pancreatitis. EMERGENT Consult: No MD Notified: Yes Date Notified: 03/27/25 Time Notified: 21:19 Method of Notification: ED Physician Initiated Reason For Visit: RECURRENT ACUTE PANCREATITIS Diagnosis Discharge Diagnosis (1) Acute recurrent pancreatitis: Status: Acute Code(s): K85.90 - Acute pancreatitis without necrosis or infection, unspecified Plan 44-year-old female admitted with severe epigastric pain with high lipase and CT finding suggestive of acute pancreatitis with potential area of necrotizing pancreatitis within head of pancreas: 1. Acute on recurrent pancreatitis with CT reporting a potential necrotizing pancreatitis: Patient is being admitted to [facility] floor. Patient had subjective chills and drenching sweats at home but no measured fever. Lipase 1356, more than 10 times ULN. Carlos's criteria at admission 0 but LDH not available. LDH ordered. N.p.o. IV fluid with aggressive rehydration. On empiric IV meropenem with CT reporting of potential necrotizing pancreatitis. Pantoprazole for tomorrow IV daily. Supportive treatment will for nausea or vomiting and pain control. CT abdomen/pelvis with IV contrast individually reviewed. I agree moderate fat stranding with hazy/indistinct mesentery suggesting acute pancreatitis. No focal fluid collection or abscess or pseudocyst. Reporting raise suspicion of necrotizing pancreatitis. MRCP is ordered. No fever.. Patient on IV meropenem. Mild leukocytosis resolved. 03/29: Patient tolerated clear liquid diet advance to full liquid. Patient had MRCP which is negative for choledocholithiasis and shows pancreatitis with increased signal in the tail with retroperitoneal fluid. No liver or pancreaticmass. No dilatation of extrahepatic biliary duct or pancreatic duct. Patient started on Creon 2 tablets 3 times daily with liquid diet. Labs done today shows decreasing hematocrit 3%. [place] criteria at admission and repeat 48 hours is 0. Continue IV antibiotics. 03/30: Discussed with Dr. Sotelo. Abdominal pain is better about 7-8/10 intensity which was very intractable more than 10 days per the patient. She tolerated soft diet. MRCP shows mild retroperitoneal fluid/increased signal in the tail of pancreas. Overall my feel CT reporting of suspicion of necrotizing pancreatitis probably over read. No air trapping on CT scan. Patient asked foroxycodone. Prescription for oxycodone total 7 tablets, oxycodone 2.5 mg for moderate pain and 5 mg for severe pain respectively given. OARRS reviewed. Unintentional overdose risk score 310. Prescriptions of phentermine oxycodone given in the past. Patient not showing signs of infection but prescription for levofloxacin total 5 tablets given as a precautionary measure. Advised follow-up in GI office to arrange EUS. 2. 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 Sotelo (November 29, 2024) with subsequent removal of biliary stent with surgical cholecystectomy. Lipid profile within normal limit. TG 77 03/29: MRCP does not show choledocholithiasis as mentioned above 3. Obesity (class III); with BMI of 39.3 this admission adding to the burden ofdisease outlined in #1 & #2 - Weight loss will be recommended with patient explaining she was previously on topiramate to help lose weight but she stopped taking it because of side effects causing mental impairment. Check TSH. This complicates her case and may hamper recovery. 4. Essential hypertension; on amlodipine - Hold oral agents until further notice. Give hydralazine IV prn for systolic blood pressure > 160 mmHg. 5. Former tobacco abuse - Noted. 6. DVT/GI prophylaxis - Enoxaparin 40 mg sq daily plus SCD's. Pantoprazole 40 mg IV daily. Discharge medication reconciliation done. Discharge follow-up instructions completed. Discharge process discussed with the patient and all questions wereanswered to patient's satisfaction. Follow with PCP in 1 to 2 weeks Total time spent, exact 35 minutes on discharge meds reconciliation, examination, coordination of care with nurses and ancillary staff, review of imaging and blood test and discussion with the patient on follow-up instructions. Laboratory Results 03/28/25 05:26: Lactate Dehydrogenase 122 03/29/25 04:46: Sodium 135, Potassium 4.1, Chloride 101, Carbon Dioxide 22.1, Anion Gap 12, BUN 9, Creatinine 0.45 L, Estim Creat Clear Calc 187.63, Est GFR (MDRD) Non-Af 121, BUN/Creatinine Ratio 18.8, Glucose 106 H, Calcium 9.3, Phosphorus 2.7, Total Bilirubin 0.37, Direct Bilirubin 0.14, AST 20, ALT 18, Alkaline Phosphatase 81, Lactate Dehydrogenase 122, C-React Prot Ext Range 66.30H, Total Protein 6.2, Albumin 3.5, Globulin 2.7 03/29/25 12:30: WBC 9.0, RBC 3.61 L, Hgb 9.6 L, Hct 30.8 L, MCV 85.3, MCH 26.6 L, MCHC 31.2 L, RDW Std Deviation 42.6, RDW Coeff of Chelsie 13.6, Plt Count 220, MPV10.6, Immature Gran % (Auto) 0.300, Neut % (Auto) 72.7 H, Lymph % (Auto) 19.8, [place] % (Auto) 5.8, Eos % (Auto) 1.2, Baso % (Auto) 0.2, Absolute Neuts (auto) 6.5, Absolute Lymphs (auto) 1.78, Nucleated RBC % 0 03/27/25 18:25: WBC 11.5 H, RBC 4.84, Hgb 12.7, Hct 39.6, MCV 81.8, MCH 26.2 L, MCHC 32.1, RDW Std Deviation 39.2, RDW Coeff of Chelsie 13.3, Plt Count 338, MPV 10.2, Immature Gran % (Auto) 0.300, Neut % (Auto) 70.1 H, Lymph % (Auto) 21.2, [place] % (Auto) 5.9, Eos % (Auto) 2.2, Baso % (Auto) 0.3, Absolute Neuts (auto) 8.0 H, Absolute Lymphs (auto) 2.43, Nucleated RBC % 0, Sodium 138, Potassium 3.6, Chloride 99, Carbon Dioxide 26.7, Anion Gap 12, BUN 11, Creatinine 0.50 L, Estim Creat Clear Calc 168.45, Est GFR (MDRD) Non-Af 118, BUN/Creatinine Ratio 22.0 H, Glucose 100 H, Hemoglobin A1c 5.7, Calcium 10.7, Magnesium 2.1, Total Bilirubin 0.48, AST 25, ALT 24, Alkaline Phosphatase 119 H, Total Protein 7.7, Albumin 4.7, Globulin 3.0, Albumin/Globulin Ratio 1.6, Lipase > 3000 H, TSH 2.940, Serum , Qual NEGATIVE, Ethyl Alcohol < 10.1 03/27/25 18:30: Urine Color Straw, Urine Clarity Clear, Urine pH 6.0, Ur Specific [place] 1.015, Urine Protein 15 H, Urine Glucose (UA) Normal, Urine Ketones Negative, Urine Occult Blood 25 H, Urine Nitrite Negative, Urine Bilirubin Negative, Urine Urobilinogen Normal, Ur Leukocyte Esterase Negative, Urine RBC 0-5 SEEN, Urine WBC 0-5 SEEN, Ur Squamous Epith Cells 0-5 SEEN, Urine Bacteria 0 SEEN, Urine Mucus 1+ 03/28/25 05:26: WBC 6.8, RBC 3.96 L, Hgb 10.8 L, Hct 33.2 L, MCV 83.8, MCH 27.3,MCHC 32.5, RDW Std Deviation 41.9, RDW Coeff of Chelsie 13.6, Plt Count 241, MPV 10.2, Immature Gran % (Auto) 0.300, Neut % (Auto) 69.0, Lymph % (Auto) 23.2, [place] % (Auto) 4.4, Eos % (Auto) 2.8, Baso % (Auto) 0.3, Absolute Neuts (auto) 4.7, Absolute Lymphs (auto) 1.58, Nucleated RBC % 0, Sodium 139, Potassium 4.1, Chloride 105, Carbon Dioxide 26.6, Anion Gap 7, BUN 13, Creatinine 0.58 L, EstimCreat Clear Calc 145.11, Est GFR (MDRD) Non-Af 114, BUN/Creatinine Ratio 22.3 H,Glucose 118 H, Calcium 9.6, Phosphorus 3.0, Total Bilirubin 0.31, AST 19, ALT 18, Alkaline Phosphatase 82, Total Protein 6.3, Albumin 3.6, Globulin 2.7, Albumin/Globulin Ratio 1.4, Triglycerides 77, Cholesterol 136, LDL Cholesterol, Calc 73, VLDL Cholesterol 15, HDL Cholesterol 48, Cholesterol/HDL Ratio 2.85, Lipase 1356 H Clinical Impression(s) from Imaging Studies Abdomen/Pelvis CT 03/27/25 19:03 IMPRESSION: Findings compatible with acute pancreatitis. Potential areas of necrotizing pancreatitis within the head. Similar findings are noted on the previous study. Reading Location: [facility] 03/28/25 02:12 IMPRESSION: Negative for choledocholithiasis. Pancreatitis. Reading Location: [facility] Medications at Discharge Home Medications ipratropium bromide 42 mcg (0.06 %) nasal spray 1 spray intranasal TID PRN PRN allergy symptoms 09/12/24 sennosides 8.6 mg-docusate sodium 50 mg tablet (Stimulant Laxative Plus) 2 tab PO BID PRN Constipation #0 tabs 10/22/24 amlodipine 5 mg tablet 5 mg PO DAILY 03/27/25 fluoxetine 60 mg tablet 60 mg PO DAILY anxiety/depression 03/27/25 Held on 03/30/25. Instructions: Hold for 5 days while taking levofloxacin for drug-drug interaction, QT prolongation topiramate 25 mg tablet 25 mg PO BID 03/27/25 levofloxacin 500 mg tablet 500 mg PO DAILY 5 days #5 tabs 03/30/25 [id number] 24,000-76,000-120,000 unit capsule,delayed rel (Creon) 2cap PO TIDCM 30 days #180 caps 03/30/25 oxycodone 5 mg tablet 2.5 - 5 mg (0.5 - 1 x 5 mg) PO Q4H PRN PRN Pain Score 4- 103 days #7 tabs 03/30/25 Hospital Course Summary of Care Provided Hospital Course: Laboratory Results 03/29/25 04:46: Sodium 135, Potassium 4.1, Chloride 101, Carbon Dioxide 22.1, Anion Gap 12, BUN 9, Creatinine 0.45 L, Estim Creat Clear Calc 187.63, Est GFR (MDRD) Non-Af 121, BUN/Creatinine Ratio 18.8, Glucose 106 H, Calcium 9.3, Total Bilirubin 0.37, Direct Bilirubin 0.14, AST 20, ALT 18, Alkaline Phosphatase 81, C-React Prot Ext Range 66.30 H, Total Protein 6.2, Albumin 3.5, Globulin 2.7 03/29/25 12:30: WBC 9.0, RBC 3.61 L, Hgb 9.6 L, Hct 30.8 L, MCV 85.3, MCH 26.6 L, MCHC 31.2 L, RDW Std Deviation 42.6, RDW Coeff of Chelsie 13.6, Plt Count 220, MPV10.6, Immature Gran % (Auto) 0.300, Neut % (Auto) 72.7 H, Lymph % (Auto) 19.8, Tarrant % (Auto) 5.8, Eos % (Auto) 1.2, Baso % (Auto) 0.2, Absolute Neuts (auto) 6.5, Absolute Lymphs (auto) 1.78, Nucleated RBC % 0 03/30/25 04:29: WBC 9.4, RBC 3.81 L, Hgb 10.2 L, Hct 31.9 L, MCV 83.7, MCH 26.8 L, MCHC 32.0, RDW Std Deviation 41.6, RDW Coeff of Chelsie 13.6, Plt Count 257, MPV 10.6, Immature Gran % (Auto) 0.300, Neut % (Auto) 74.1 H, Lymph % (Auto) 18.6 L,Tarrant % (Auto) 5.0, Eos % (Auto) 1.7, Baso % (Auto) 0.3, Absolute Neuts (auto) 7.0, Absolute Lymphs (auto) 1.75, Nucleated RBC % 0, Sodium 138, Potassium 3.8, Chloride 101, Carbon Dioxide 28.7, Anion Gap 8, BUN 6, Creatinine 0.37 L, Estim Creat Clear Calc 228.20, Est GFR (MDRD) Non-Af 127, BUN/Creatinine Ratio 15.9, Glucose 108 H, Calcium 9.5, Total Bilirubin 0.42, Direct Bilirubin 0.20, AST 17, ALT 16, Alkaline Phosphatase 88, Total Protein 6.3, Albumin 3.6, Globulin 2.7 Physical Exam Narrative Seen and examined. Tolerated soft diet well. Abdominal pain has improved. She had biliary stent in November and was removed subsequently. Physical exam General: Alert, Oriented x3, Cooperative. BMI 39.0 kg/m?, obesity grade 2 HEENT: Atraumatic, PERRLA, EOMI, Normocephalic. Oral: No Gingival or Mucosal Lesions/ Ulcerations Neck: Supple, No JVD, Negative Carotid Bruits Chest wall/Lungs: Air entry diminished in bilateral lung bases. No crepitation/rhonchi Cardiovascular: Regular rate and rhythm, Normal S1,S2, No M/G/R Abdomen: Bowel Sounds sluggish. Soft, very mild tenderness present in epigastric/upper abdomen. No rebound tenderness. : No dysuria. No renal angle tenderness. No suprapubic tenderness. Extremities: No edema, Capillary Refill Less than 3 Seconds Skin: No rashes, No breakdown Musculoskeletal: No Tenderness to Palpation of Joints or Extremities Neurological: Cranial nerves II-XII grossly intact, DTR 2+/4. No acute focal neurological deficit. Psych/Mental Status: Normal Affect, Appropriate. Weight / BMI Weight Weight: 229 lb 11.547 oz Body Mass Index (BMI) 39.2 ABG / Lab / Microbiology Data 03/30/25 04:29 03/30/25 04:29 Laboratory: Laboratory Results - last 24 hr 03/29/25 04:46: Sodium 135, Potassium 4.1, Chloride 101, Carbon Dioxide 22.1, Anion Gap 12, BUN 9, Creatinine 0.45 L, Estim Creat Clear Calc 187.63, Est GFR (MDRD) Non-Af 121, BUN/Creatinine Ratio 18.8, Glucose 106 H, Calcium 9.3, Total Bilirubin 0.37, Direct Bilirubin 0.14, AST 20, ALT 18, Alkaline Phosphatase 81, C-React Prot Ext Range 66.30 H, Total Protein 6.2, Albumin 3.5, Globulin 2.7 03/29/25 12:30: WBC 9.0, RBC 3.61 L, Hgb 9.6 L, Hct 30.8 L, MCV 85.3, MCH 26.6 L, MCHC 31.2 L, RDW Std Deviation 42.6, RDW Coeff of Chelsie 13.6, Plt Count 220, MPV10.6, Immature Gran % (Auto) 0.300, Neut % (Auto) 72.7 H, Lymph % (Auto) 19.8, Tarrant % (Auto) 5.8, Eos % (Auto) 1.2, Baso % (Auto) 0.2, Absolute Neuts (auto) 6.5, Absolute Lymphs (auto) 1.78, Nucleated RBC % 0 03/30/25 04:29: WBC 9.4, RBC 3.81 L, Hgb 10.2 L, Hct 31.9 L, MCV 83.7, MCH 26.8 L, MCHC 32.0, RDW Std Deviation 41.6, RDW Coeff of Chelsie 13.6, Plt Count 257, MPV 10.6, Immature Gran % (Auto) 0.300, Neut % (Auto) 74.1 H, Lymph % (Auto) 18.6 L,Tarrant % (Auto) 5.0, Eos % (Auto) 1.7, Baso % (Auto) 0.3, Absolute Neuts (auto) 7.0, Absolute Lymphs (auto) 1.75, Nucleated RBC % 0, Sodium 138, Potassium 3.8, Chloride 101, Carbon Dioxide 28.7, Anion Gap 8, BUN 6, Creatinine 0.37 L, Estim Creat Clear Calc 228.20, Est GFR (MDRD) Non-Af 127, BUN/Creatinine Ratio 15.9, Glucose 108 H, Calcium 9.5, Total Bilirubin 0.42, Direct Bilirubin 0.20, AST 17, ALT 16, Alkaline Phosphatase 88, Total Protein 6.3, Albumin 3.6, Globulin 2.7 D/C Instructions Weight Bearing Status: Weight bearing as tolerated Call your doctor if you observe: Fever of 101 or Higher, Coldness, Increased Pain, Numbness or Tingling, Change in Color, Inability to urinate, Inability to have a bowel movement, Shortness of breath, Dizziness, Fainting spells, Swellingin the ankles, Chest pain, Prolonged hiccupping, Increased palpitations (irregular heartbeat) and Calf discomfort DC O2, CPAP, BIPAP Needs Home O2 Discharge instructions: No When: IN 2 WEEKS Meaningful Use Info Meaningful Use Meaningful Use Diagnoses (Choose all that apply): None applicable Discharge Plan Admission Admit Date/Time: 03/27/25 21:16 Primary Reason for Your Visit: Acute on recurrent pancreatitis Attending Provider: Niranjan Noe Primary Care Provider: Mary Escobar Consulting Providers: Niranjan Noe; Arturo Sotelo; Daniella Lawler; Nataliia Montalvo; Ainsley Dotson; Zak Carcamo Discharge Orders/Prescriptions Prescriptions: [place] 24,000-76,000 -120,000 unit Capsule,Delayed Release(Dr/Ec) 2 cap PO TIDCM 30 Days Qty: 180 2RF oxycodone 5 mg tablet 2.5 - 5 mg PO Q4H PRN PRN (Reason: Pain Score 4-10) 3 Days Qty: 7 0RF Rx Instructions: 2.5 mg for moderate pain 5 mg for severe pain respectively levofloxacin 500 mg tablet 500 mg PO DAILY 5 Days Qty: 5 0RF Continued ipratropium bromide 42 mcg (0.06 %) spray,non-aerosol 1 spray INTRANASAL TID PRN PRN (Reason: allergy symptoms) sennosides-docusate sodium [Stimulant Laxative Plus] 8.6-50 mg Tablet 2 tab PO BID PRN (Reason: Constipation) Qty: 0 0RF Rx Instructions: Cqdw-rcd-qurylxg topiramate 25 mg tablet 25 mg PO BID amlodipine 5 mg tablet 5 mg PO DAILY Held fluoxetine 60 mg tablet 60 mg PO DAILY Hold Instructions: Hold for 5 days while taking levofloxacin for drug-drug interaction, QT prolongation Referrals / Follow Up: Mary Escobar MD [Primary Care Provider, Family Practice] Arturo Sotelo DO [Med Staff - Active Staff, Gastroenterology] - Within 1 Month Referral Note: To arrange EUS for pancreatitis outside Disposition Disposition (needs filled in before D/C Order can be placed): Home, Self Care Charges/Coding Visit Charges Inpatient E&M: 39285 Disch Hosp >30min 03/30/25 1204 <Electronically signed by Niranjan Noe MD> Cosigner Signature (if applicable): CC: Dr. Mary Escobar MD; Dr. Niranjan Noe MD; Arturo Sotelo DO~ Signed [facility] Work Phone: Evaluation note* Diagnosis Breakthrough bleeding with IUD- Primary Metrorrhagia Pelvic cramping Unspecified symptom associated with female genital organs documented in this encounter [facility] note* Diagnosis Anxiety disorder, unspecified [facility] Diagnosis Screening for malignant neoplasm of cervix- Primary Screening for malignant neoplasm of the cervix Encounter for gynecological examination (general) (routine) without abnormal findings Encounter for routine checking of intrauterine contraceptive device (IUD) Encounter for screening mammogram for malignant neoplasm of breast Other screening mammogram [facility]* Diagnosis Eye injury, unspecified laterality, initial encounter- Primary documented in this encounter [facility] note* Diagnosis Abnormal mammogram- Primary Abnormal mammogram, unspecified documented in this encounter [facility] note* Diagnosis Eye injury, unspecified laterality, initial encounter- Primary [facility]* Diagnosis High grade squamous intraepithelial lesion (HGSIL), grade 3 DIONNE, on biopsy of cervix- Primary HPV vaccine counseling Other specified counseling Pre-op exam Preoperative examination, unspecified [facility]* Diagnosis High grade squamous intraepithelial lesion (HGSIL), grade 3 DIONNE, on biopsy of cervix- Primary S/P LEEP Other postprocedural status documented in this encounter [facility] note* Diagnosis COVID-19- Primary documented in this encounter [facility] note* Diagnosis Influenza A- Primary Influenza with other respiratory manifestations Acute cough Strain of thoracic back region documented in [facility] noteNo assessment information [facility]WHol[facility] Work Phone: Evaluation note* Diagnosis Anxiety and depression- Primary Primary hypertension Unspecified essential hypertension Encounter for screening for HIV Encounter for HCV screening test for low risk patient documented in this encounter [facility] note* Diagnosis Anxiety and depression- Primary Primary hypertension Unspecified essential hypertension Encounter for screening for HIV Encounter for HCV screening test for low risk patient documented in this encounter [facility] note* Diagnosis Primary hypertension Unspecified essential hypertension documented in this encounter [facility] note* Diagnosis Anxiety and depression documented in this encounter [facility] note* Diagnosis Onset Date Resolution Status Admit Date Acute abdominal pain acute [place] 2024 9:34am Acute pancreatitis acute September 12, 2024 9:34am Chest pain acute September 12 9:34am Leukocytosis acute September 12, 2024 9:34am Hypertension chronic September 12, 2024 9:34am [facility] Work Phone: evaluation note* Diagnosis Abnormality of left breast on screening mammogram- [facility] Attachments The following attachments cannot be sent through Care Everywhere. * Back Muscle Strain (Zimbabwean) * Flu Discharge Instructions, Adult ([place]imbabwean) * Cough Discharge Instructions, Adult ([place]imbabwe[place]) [facility] Additional Instructions Please continue the your family doctor. You may take 2 extra strength Tylenol and 3 ibuprofen with the pain medication from your doctor up to 4 times a day and you may take them all together to help reduce pain. Keep yourself well-hydrated. Follow-up with your family doctor and/or gastroenterology for repeat evaluation. If you develop a fever or have any further concerns please return to the ER for repeat evaluation.[facility] Work Phone: Hospital Discharge instructionsAdditional Instructions Date of Discharge: [facility] Work [facility]: Reason for referral (narrative)* Diagnostic Procedure Only (Routine) - Pending Review Specialty Diagnoses / Procedures Referred By Miguelac t Referred To Contact [facility] Diagnoses Breakthrough bleeding with IUD Pelvic cramping Procedures PELVIC US WHI US PELVIC NONOBSTETRIC REAL-TIME IMAGE COMPLETE Walter, Nerissa Willoughby MD [address] [place] [address] [facility] [place]Note 2] [address] [place] [id number] Referral ID Status Reason Start Date Expiration Date Visits Requested Visits Authorized [id number] Pending Review Auto-Generat ed Referral 01/06/2022 01/06/[address] [facility] for referral (narrative)* Diagnostic Procedure Only (Routine) - Pending Review Specialty Diagnoses / Procedures Referred By Suzanne delatorre Referred To Contact [facility] Diagnoses Encounter for screening mammogram for malignant neoplasm of breast Procedures DEL SCREENING SCREENING MAMMOGRAPHY BI 2-VIEW BREAST INC CAD Nerissa Watson MD [address] [place] [address] [facility] [address] [place] [id number] Referral ID Status Reason Start Date Expiration Date Visits Requested Visits Authorized [id number] Pending Review Auto-Generat ed Referral 09/21/2022 10/21/[address] [facility] for referral (narrative)* Consultation (Urgent) - Pending Review Specialty Diagnoses / Procedures Referred By Contac t Referred To Contact Ophthalmology Diagnoses Eye injury, unspecified laterality, initial encounter Procedures OK OFFICE/OUTPATIENT NEW HIGH MDM 60-74 MINUTES Selin Monson MD [address] [place] [id number] Nataliia Dobbins MD [address] [place] [address] Referral ID Status Reason Start Date Expiration Date Visits Requested Visits Authorized [id number] Pending Review Specialty Services Required 10/08/2022 10/08/2023 1 1 [facility] for referral (narrative)* Diagnostic Procedure Only (Routine) - Pending Review Specialty Diagnoses / Procedures [facility] Diagnoses Abnormal mammogram Procedures US BREAST LTD LEFT US BREAST UNI REAL TIME WITH IMAGE LIMITED Nerissa Watson MD [address] [place] [address] [facility] [address] [place], [place] [id number] Referral ID Status Reason Start Date Expiration Date Visits Requested Visits Authorized [id number] Pending Review Auto-Generat ed Referral 10/12/2022 11/11/2023 1 1 * Diagnostic Procedure Only (Routine) - Pending Review Specialty Diagnoses / Procedures [facility] To [facility] Diagnoses Abnormal mammogram Procedures DEL DIAGNOSTIC LEFT DIAGNOSTIC MAMMOGRAPHY COMPUTER-AIDED DETCJ UNI Nerissa Watson MD [address] [place] [address] [facility] [address] [place] [address] Referral ID Status Reason Start Date Expiration Date Visits Requested Visits Authorized [id number] Pending Review Auto-Generat ed Referral 10/12/2022 11/11/[address] [facility] for referral (narrative)* Diagnostic Procedure Only (Routine) - Pending Review Specialty Diagnoses / Procedures [facility] To Contact [facility] Diagnoses Pre-op exam Procedures SONOHYSTEROGRAPHY (SIS) US WHI SALINE INFUS SONOHYSTEROGRAPHY W/COLOR DOPPLER Daniella Hidalgo DO [address] [place] [address] [facility] [place]Note 2] [address] [place] [address] Referral ID Status Reason Start Date Expiration Date Visits Requested Visits Authorized [id number] Pending Review Auto-Generat ed Referral 01/06/2023 01/06/[address] 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 No September 12, 2024 7:03am Advance Directive Response Recorded Date/ Time Living Will No September 12, 2024 10:54am Do you have a Healthcare Power of Lead Refinery Supervisor? No September 12, 2024 10:54am Advance Directive Response Recorded Date/ Time Living Will No September 24, 2024 4:32am Do you have a Healthcare Power of Lead Refinery Supervisor? No September 24, 2024 4:32am Living Will No September 12, 2024 10:54am Do you have a Healthcare Power of Lead Refinery Supervisor? No September 12, 2024 10:54am Advance Directive Response Recorded Date/ Time Living Will No September 24, 2024 4:32am Do you have a Healthcare Power of Lead Refinery Supervisor? No September 24, 2024 4:32am Living Will No September 25, 2024 4:05am Do you have a Healthcare Power of Lead Refinery Supervisor? No September 25, 2024 4:05am Living Will No September 12, 2024 10:54am Do you have a Healthcare Power of Lead Refinery Supervisor? No September 12, 2024 10:54am Advance Directive Response Recorded Date/ Time Living Will No September 24, 2024 4:32am Do you have a Healthcare Power of Lead Refinery Supervisor? No September 24, 2024 4:32am Living Will No September 25, 2024 12:01pm Do you have a Healthcare Power of Lead Refinery Supervisor? No September 25, 2024 12:01pm Living Will No September 12, 2024 10:54am Do you have a Healthcare Power of Lead Refinery Supervisor? No September 12, 2024 10:54am Advance Directive Response Recorded Date/ Time Living Will No September 24, 2024 4:32am Do you have a Healthcare Power of Lead Refinery Supervisor? No September 24, 2024 4:32am Living Will No September 25, 2024 12:01pm Do you have a Healthcare Power of Lead Refinery Supervisor? No September 25, 2024 12:01pm Do you have a Healthcare Power of Lead Refinery Supervisor? No November 26, 2024 9:31am Living Will No September 12, 2024 10:54am Do you have a Healthcare Power of Lead Refinery Supervisor? No September 12, 2024 10:54am Do you have a Healthcare Power of Lead Refinery Supervisor? No October 16, 2024 1:22am Advance Directive Response Recorded Date/ Time Do you have a Healthcare Power of Lead Refinery Supervisor? No November 26, 2024 9:31am Do you have a Healthcare Power of Lead Refinery Supervisor? No March 27, 2025 6:16pm Advance Directive Response Recorded Date/ Time Do you have a Healthcare Power of Lead Refinery Supervisor? No March 27, 2025 10:03pm Chief Complaint and Reason for Visit Chief Complaint WOUND Chief Complaint Admit Date EORDERS May 18, 2024 9:56am ACUTE PANCREATITIS September 12, 2024 9:3 4am Reason for Visit Admit Date Acute abdominal pain September 12, 2024 9: 34am Acute pancreatitis September 12, 2024 9:3 4am Chest pain September 12, 2024 9:3 4am Leukocytosis September 12, 2024 9:3 4am Hypertension September 12, 2024 9:3 4am Chief Complaint Admit Date ACUTE PANCREATITIS September 12, 2024 9:3 4am ACUTE PANCREATITIS September 12, 2024 9:4 1am ACUTE PANCREATITIS September 13, 2024 7:1 8am ACUTE PANCREATITIS September 14, 2024 7:4 6am ACUTE PANCREATITIS September 15, 2024 9:0 4am ACUTE PANCREATITIS September 16, 2024 1:0 9pm ACUTE PANCREATITIS September 17, 2024 12: 14pm ACUTE PANCREATITIS September 17, 2024 7:4 0pm AM EKG September 18, 2024 6:22 am ACUTE PANCREATITIS September 18, 2024 10:4 5am ACUTE PANCREATITIS September 18, 2024 3:58 pm Chief Complaint Admit Date ACUTE PANCREATITIS September 12, 2024 9:3 4am ACUTE PANCREATITIS September 12, 2024 9:4 1am ACUTE PANCREATITIS September 13, 2024 7:1 8am ACUTE PANCREATITIS September 14, 2024 7:4 6am ACUTE PANCREATITIS September 15, 2024 9:0 4am ACUTE PANCREATITIS September 16, 2024 1:0 9pm ACUTE PANCREATITIS September 17, 2024 12: 14pm ACUTE PANCREATITIS September 17, 2024 7:4 0pm AM EKG September 18, 2024 6:22 am ACUTE PANCREATITIS September 18, 2024 10:4 5am ACUTE PANCREATITIS September 18, 2024 3:58 pm ACUTE PANCREATITIS 2024 11:4 6am flank pain September 24, 2024 4:31 am Chief Complaint Admit Date ACUTE PANCREATITIS September 12, 2024 9:3 4am ACUTE PANCREATITIS September 12, 2024 9:4 1am ACUTE PANCREATITIS September 13, 2024 7:1 8am ACUTE PANCREATITIS September 14, 2024 7:4 6am ACUTE PANCREATITIS September 15, 2024 9:0 4am ACUTE PANCREATITIS September 16, 2024 1:0 9pm ACUTE PANCREATITIS September 17, 2024 12: 14pm ACUTE PANCREATITIS September 17, 2024 7:4 0pm AM EKG September 18, 2024 6:22 am ACUTE PANCREATITIS September 18, 2024 10:4 5am ACUTE PANCREATITIS September 18, 2024 3:58 pm ACUTE PANCREATITIS 2024 11:4 6am flank pain September 24, 2024 4:31 am ACUTE PANCREATITIS RESOLVED September 25 9:44am Reason for Visit Admit Date Acute abdominal pain September 12, 2024 9: 34am Acute pancreatitis September 12, 2024 9:3 4am Chest pain September 12, 2024 9:3 4am Leukocytosis September 12, 2024 9:3 4am Hypertension September 12, 2024 9:3 4am Intractable pain September 25, 2024 9:44 am Leukocytosis September 25, 2024 9:44 am Pancreatitis September 25, 2024 9:44 am Chief Complaint Admit Date ACUTE PANCREATITIS September 12, 2024 9:3 4am ACUTE PANCREATITIS September 12, 2024 9:4 1am ACUTE PANCREATITIS September 13, 2024 7:1 8am ACUTE PANCREATITIS September 14, 2024 7:4 6am ACUTE PANCREATITIS September 15, 2024 9:0 4am ACUTE PANCREATITIS September 16, 2024 1:0 9pm ACUTE PANCREATITIS September 17, 2024 12: 14pm ACUTE PANCREATITIS September 17, 2024 7:4 0pm AM EKG September 18, 2024 6:22 am ACUTE PANCREATITIS September 18, 2024 10:4 5am ACUTE PANCREATITIS September 18, 2024 3:58 pm ACUTE PANCREATITIS 2024 11:4 6am flank pain September 24, 2024 4:31 am ACUTE PANCREATITIS RESOLVED September 25, 2 025 9:44am ACUTE PANCREATITIS RESOLVED September 25, 2 025 9:55am ACUTE PANCREATITIS RESOLVED September 26, 2 025 7:06am ACUTE PANCREATITIS RESOLVED September 26, 2 025 8:09pm ACUTE PANCREATITIS RESOLVED September 27, 2024 1:33pm ACUTE PANCREATITIS RESOLVED September 27, 2024 5:38pm ACUTE PANCREATITIS RESOLVED September 28, 2024 4:00pm ACUTE PANCREATITIS RESOLVED September 28, 2024 7:28pm ACUTE PANCREATITIS RESOLVED September 29, 2024 9:51am Reason for Visit Admit Date Acute abdominal pain September 12, 2024 9: 34am Acute pancreatitis September 12, 2024 9:3 4am Chest pain September 12, 2024 9:3 4am Leukocytosis September 12, 2024 9:3 4am Hypertension September 12, 2024 9:3 4am Intractable pain September 25, 2024 9:44 am Leukocytosis September 25, 2024 9:44 am Pancreatitis September 25, 2024 9:44 am Right sided abdominal pain September 25 9:44am Acute pancreatitis September 25, 2024 9:44 am Hypertension September 25, 2024 9:44 am Chief Complaint Admit Date ACUTE PANCREATITIS September 12, 2024 9:3 4am ACUTE PANCREATITIS September 12, 2024 9:4 1am ACUTE PANCREATITIS September 13, 2024 7:1 8am ACUTE PANCREATITIS September 14, 2024 7:4 6am ACUTE PANCREATITIS September 15, 2024 9:0 4am ACUTE PANCREATITIS September 16, 2024 1:0 9pm ACUTE PANCREATITIS September 17, 2024 12: 14pm ACUTE PANCREATITIS September 17, 2024 7:4 0pm AM EKG September 18, 2024 6:22 am ACUTE PANCREATITIS September 18, 2024 10:4 5am ACUTE PANCREATITIS September 18, 2024 3:58 pm ACUTE PANCREATITIS 2024 11:4 6am flank pain September 24, 2024 4:31 am ACUTE PANCREATITIS RESOLVED September 25, 2 025 9:44am ACUTE PANCREATITIS RESOLVED September 25, 2 025 9:55am ACUTE PANCREATITIS RESOLVED September 26, 2 025 7:06am ACUTE PANCREATITIS RESOLVED September 26, 2 025 8:09pm ACUTE PANCREATITIS RESOLVED September 27, 2024 1:33pm ACUTE PANCREATITIS RESOLVED September 27, 2024 5:38pm ACUTE PANCREATITIS RESOLVED September 28, 2024 4:00pm ACUTE PANCREATITIS RESOLVED September 28, 2024 7:28pm ACUTE PANCREATITIS RESOLVED September 29, 2024 9:51am Hospital FU October 04, 2024 1:0 2pm ABDOMINAL PAIN October 16, 2024 12: 45am PANCREATITIS October 16, 2024 12: 51am PANCREATITIS October 17, 2024 11: 26am PANCREATITIS October 17, 2024 6:4 6pm PANCREATITIS October 18, 2024 3:57am PANCREATITIS October 18, 2024 10:45p m PANCREATITIS October 19, 2024 10:42a m PANCREATITIS October 19, 2024 6:42pm PANCREATITIS October 20, 2024 10:40a m PANCREATITIS October 21, 2024 9:35am PANCREATITIS October 22, 2024 11:58a m Reason for Visit Admit Date Acute abdominal pain September 12, 2024 9: 34am Acute pancreatitis September 12, 2024 9:3 4am Chest pain September 12, 2024 9:3 4am Leukocytosis September 12, 2024 9:3 4am Hypertension September 12, 2024 9:3 4am Acute pancreatitis September 25, 2024 9:44 am Intractable pain September 25, 2024 9:44 am Leukocytosis September 25, 2024 9:44 am Pancreatitis September 25, 2024 9:44 am Hypertension September 25, 2024 9:44 am Right sided abdominal pain September 25 9:44am Heartburn October 04, 2024 1:0 2pm Pancreatitis October 04, 2024 1:0 2pm Hypertension October 16, 2024 12: 51am Acute pancreatitis October 16, 2024 12: 51am Leukocytosis October 16, 2024 12: 51am Acute recurrent pancreatitis October 16, 2024 12:51am Intractable abdominal pain October 16, 025 12:51am Choledocholithiasis November 29, 2024 12:0 4pm Pancreatitis November 29, 2024 12:0 4pm Chief Complaint Admit Date RECURRENT ACUTE PANCREATITIS March 9:16pm Reason for Visit Admit Date Choledocholithiasis November 29, 2024 12:0 4pm Pancreatitis November 29, 2024 12:0 4pm Nausea March 27, 2025 9: 16pm Pancreatitis March 27, 2025 9: 16pm Hypertension March 27, 2025 9: 16pm Chief Complaint Admit Date RECURRENT ACUTE PANCREATITIS March 9:16pm RECURRENT ACUTE PANCREATITIS March 7:41am RECURRENT ACUTE PANCREATITIS March 5:41pm RECURRENT ACUTE PANCREATITIS March 3:38pm RECURRENT ACUTE PANCREATITIS March 7:26pm RECURRENT ACUTE PANCREATITIS March 11:57am Reason for Visit Admit Date Choledocholithiasis March 27, 2025 9: 16pm Nausea March 27, 2025 9: 16pm Obesity (BMI 30-39.9) March 27, 2025 9:16pm Pancreatitis March 27, 2025 9: 16pm Hypertension March 27, 2025 9: 16pm Intractable abdominal pain March 27, 2025 9:16pm Leukocytosis March 27, 2025 9: 16pm Acute recurrent pancreatitis March 9:16pm Additional Source Comments INFORMATION SOURCE (unrecogn ized section and content) DATE CREATED AUTHOR [facility]01/2018 [facility] DATE CREATED AUTHOR AUTHOR'S ORGANIZ ATION 09/27/2018 [facility] DATE CREATED AUTHOR AUTHOR'S ORGANIZ ATION 03/20/2022 [facility] DATE CREATED AUTHOR AUTHOR'S ORGANIZ ATION 03/27/2024 [facility] DATE CREATED AUTHOR AUTHOR'S ORGANIZ ATION 12/27/2024 [facility] DATE CREATED AUTHOR AUTHOR'S ORGANIZ ATION 04/12/2025 [facility] Teams (unrecognized sec tion and content) Milieu Manager Relationship Specialty Start Date End Date Marcello Castro MD [address] [place] [address] PCP - General Family Medicine 07/10/21 Milieu Manager Relationship Specialty Start Date End Date Vitor Carcamo MD PCP - General Family Practice 11/14/19 Milieu Manager Relationship Specialty Start Date End Date Nura Hodgson MD [address] [place] [address] PCP - General 12/16/21 Milieu Manager Relationship Specialty Start Date End Date Vitor Carcamo MD PCP - General Family Medicine 11/14/19 Milieu Manager Relationship Specialty Start Date End Date Nura Hodgson MD [address] [place] [address] PCP - General 12/16/21 Milieu Manager Relationship Specialty Start Date End Date Nura Hodgson MD [address] [place] [address] PCP - General 12/16/21 Milieu Manager Relationship Specialty Start Date End Date Vitor Carcamo MD PCP - General Family Medicine 11/14/19 Milieu Manager Relationship Specialty Start Date End Date Vitor Carcamo MD PCP - General Family Medicine 11/14/19 Milieu Manager Relationship Specialty Start Date End Date Nura Hodgson MD [address] [place] [address] PCP - General 12/16/21 Milieu Manager Relationship Specialty Start Date End Date Vitor Carcamo MD PCP - General Family Medicine 11/14/19 Milieu Manager Relationship Specialty Start Date End Date Vitor Carcamo MD PCP - General Family Medicine 11/14/19 Milieu Manager Relationship Specialty Start Date End Date Vitor Carcamo MD PCP - General Family Medicine 11/14/19 Milieu Manager Relationship Specialty Start Date End Date Vitor Carcamo MD PCP - General Family Medicine 11/14/19 Milieu Manager Relationship Specialty Start Date End Date Vitor Carcamo MD PCP - General Family Medicine 11/14/19 Milieu Manager Relationship Specialty Start Date End Date Nura Hodgson MD [address] [place] [address] PCP - General 12/16/21 Milieu Manager Relationship Specialty Start Date End Date Nura Hodgson MD [address] [place] [address] PCP - General 12/16/21 Milieu Manager Relationship Specialty Start Date End Date Nura Hodgson MD [address] [place] [address] PCP - General 12/16/21 Milieu Manager Relationship Specialty Start Date End Date Nura Hodgson MD [address] [place] [address] PCP - General 12/16/21 Team Status: Active Member Role Status Dates Dr. Davis Coy MD Primary Care Provider Active Team Status: Inactive Member Role Status Dates Dr. Jim Helms MD Emergency Provider Active Dr. Davis Coy MD Primary Care Provider Active Milieu Manager Relationship Specialty Start Date End Date Nura Hodgson MD [address] [place] [address] PCP - General 12/16/21 Milieu Manager Relationship Specialty Start Date End Date Nura Hodgson MD [address] [place] [address] PCP - General 12/16/21 Milieu Manager Relationship Specialty Start Date End Date Sinai Phipps MD [address] [place] [address] PCP - General Family Medicine 12/14/23 Milieu Manager Relationship Specialty Start Date End Date Nura Hodgson MD [address] [place] [address] PCP - General 12/16/21 Team Status: Active Member Role Status Dates Mary Escobar MD Primary Care Provider Active Team Status: Inactive Member Role Status Dates Mary Escobar MD Primary Care Provider Active St art: May 18, 2024 End: May 18, 2024 Mary Escobar MD Attending Provider Active Start : May 18, 2024 End: May 18, 2024 Mary Escobar MD Referring Provider Active Start : May 18, 2024 End: May 18, 2024 Team Status: Active Member Role Status Dates Mary Escobar MD Primary Care Provider Active St art: September 12, 2024 Dr. Yony [place] , DO Emergency Provider Active Start: September 12, 2024 Dr. Charlotte Gibbs , Admit Provider Active Start : September 12, 2024 Dr. Charlotte Gibbs , Attending Provider Active S tart: September 12, 2024 Milieu Manager Relationship Specialty Start Date End Date Vitor Sims MD PCP - General Family Medicine 11/14/19 Team Status: Inactive Member Role Status Lucinda Escobar MD Primary Care Provider Active St art: September 12, 2024 End: 2024 Dr. Yony Newman DO Emergency Provider Active Start: September 12, 2024 End: 2024 Dr. Charlotte Gibbs , Admit Provider Active Start : September 12, 2024 End: 2024 Dr. Charlotte Gibbs , Other Provider Active Start : September 12, 2024 End: 2024 Dr. Kris Gibbs , Attending Provider Active Start: September 12, 2024 End: 2024 Team Status: Active Member Role Status Lucinda Escobar MD Primary Care Provider Active St art: September 12, 2024 Dr. Yony Newman DO Emergency Provider Active Start: September 12, 2024 Dr. Charlotte Gibbs , Admit Provider Active Start : September 12, 2024 Dr. Charlotte Gibbs , Attending Provider Active S tart: September 12, 2024 Dr. Charlotte Gibbs , Other Provider Active Start : September 12, 2024 Team Status: Active Member Role Status Lucinda Escobar MD Primary Care Provider Active St art: September 13, 2024 Dr. Yony Newman DO Emergency Provider Active Start: September 13, 2024 Dr. Charlotte Gibbs , Admit Provider Active Start : September 13, 2024 Dr. Charlotte Gibbs , Attending Provider Active S tart: September 13, 2024 Dr. Charlotte Gibbs , Other Provider Active Start : September 13, 2024 Team Status: Active Member Role Status Lucinda Escobar MD Primary Care Provider Active St art: September 14, 2024 Dr. Yony Newman , DO Emergency Provider Active Start: September 14, 2024 Dr. Charlotte Gibbs , DO Admit Provider Active Start : September 14, 2024 Dr. Charlotte Gibbs , DO Attending Provider Active S tart: September 14, 2024 Dr. Charlotte Gibbs , DO Other Provider Active Start : September 14, 2024 Team Status: Active Member Role Status Dates Mary Escobar MD Primary Care Provider Active St art: September 15, 2024 Dr. Yony Newman , DO Emergency Provider Active Start: September 15, 2024 Dr. Charlotte Gibbs , DO Admit Provider Active Start : September 15, 2024 Dr. hCarlotte Gibbs , DO Attending Provider Active S tart: September 15, 2024 Dr. Charlotte Gibbs , DO Other Provider Active Start : September 15, 2024 Team Status: Active Member Role Status Dates Mary Escobar MD Primary Care Provider Active St art: September 16, 2024 Dr. Yony Newman , DO Emergency Provider Active Start: September 16, 2024 Dr. Charlotte Gibbs , DO Admit Provider Active Start : September 16, 2024 Dr. Charlotte Gibbs , DO Attending Provider Active S tart: September 16, 2024 Dr. Charlotte Gibbs , DO Other Provider Active Start : September 16, 2024 Team Status: Active Member Role Status Dates Mary Escobar MD Primary Care Provider Active St art: September 17, 2024 Dr. Yony Newman , DO Emergency Provider Active Start: September 17, 2024 Dr. Charlotte Gibbs , DO Admit Provider Active Start : September 17, 2024 Dr. Charlotte Gibbs , DO Other Provider Active Start : September 17, 2024 Dr. Kris Gibbs , DO Attending Provider Active Start: September 17, 2024 Dr. Kris Gibbs , DO Other Provider Active Start: September 17, 2024 Team Status: Active Member Role Status Dates Mary Escobar MD Primary Care Provider Active St art: September 17, 2024 Dr. Yony Newman , DO Emergency Provider Active Start: September 17, 2024 Dr. Charlotte Gibbs , DO Admit Provider Active Start : September 17, 2024 Dr. Charlotte Gibbs , DO Other Provider Active Start : September 17, 2024 Dr. Kris Gibbs , DO Other Provider Active Start: September 17, 2024 Dr. Arturo Sotelo , DO Attending Provider Active Start: September 17, 2024 Team Status: Active Member Role Status Dates Mary Escobar MD Primary Care Provider Active St art: September 18, 2024 End: September 18, 2024 Dr. Best Mary MD Attending Provider Active S tart: September 18, 2024 End: September 18, 2024 Dr. Best Mary MD Referring Provider Active S tart: September 18, 2024 End: September 18, 2024 Team Status: Active Member Role Status Dates Mary Escobar MD Primary Care Provider Active St art: September 18, 2024 Dr. Yony Newman , DO Emergency Provider Active Start: September 18, 2024 Dr. Charlotte Gibbs , DO Admit Provider Active Start : September 18, 2024 Dr. Charlotte Gibbs , DO Other Provider Active Start : September 18, 2024 Dr. Kris Gibbs , DO Attending Provider Active Start: September 18, 2024 Dr. Kris Gibbs , DO Other Provider Active Start: September 18, 2024 Team Status: Active Member Role Status Dates Mary Escobar MD Primary Care Provider Active St art: September 18, 2024 Dr. Yony Newman , DO Emergency Provider Active Start: September 18, 2024 Dr. Charlotte Gibbs , DO Admit Provider Active Start : September 18, 2024 Dr. Charlotte Gibbs , DO Other Provider Active Start : September 18, 2024 Dr. Kris Gibbs , DO Other Provider Active Start: September 18, 2024 Dr. Arturo Sotelo , DO Attending Provider Active Start: September 18, 2024 Team Status: Active Member Role Status Dates Mary Escobar MD Primary Care Provider Active St art: 2024 Dr. Yony Newman , DO Emergency Provider Active Start: 2024 Dr. Charlotte Gibbs , DO Admit Provider Active Start : 2024 Dr. Charlotte Gibbs , DO Other Provider Active Start : 2024 Dr. Kris Gibbs , DO Attending Provider Active Start: 2024 Dr. Kris Gibbs , DO Other Provider Active Start: 2024 Team Status: Inactive Member Role Status Dates Mary Escobar MD Primary Care Provider Active St art: September 24, 2024 End: September 24, 2024 Dr. Conner Landry MD Emergency Provider Active Start: September 24, 2024 End: September 24, 2024 Team Status: Active Member Role Status Dates Mary Escobar MD Primary Care Provider Active St art: September 25, 2024 Dr. Ashu Garcia , DO Emergency Provider Active Start: September 25, 2024 Dr. Charlotte Gibbs , DO Admit Provider Active Start : September 25, 2024 Dr. Charlotte Gibbs , DO Attending Provider Active S tart: September 25, 2024 Team Status: Active Member Role Status Dates Mary Escobar MD Primary Care Provider Active St art: September 17, 2024 Dr. Yony Newman , Emergency Provider Active Start: September 17, 2024 Dr. Charlotte Gibbs , DO Admit Provider Active Start : September 17, 2024 Dr. Charlotte Gibbs , DO Other Provider Active Start : September 17, 2024 Dr. Kris Gibbs , Referring Provider Active Start: September 17, 2024 Dr. Kris Gibbs , DO Other Provider Active Start: September 17, 2024 Dr. Arturo Sotelo , DO Attending Provider Active Start: September 17, 2024 Team Status: Active Member Role Status Dates Mary Escobar MD Primary Care Provider Active St art: September 18, 2024 Dr. Yony Newman , Emergency Provider Active Start: September 18, 2024 Dr. Charlotte Gibbs , Admit Provider Active Start : September 18, 2024 Dr. Charlotte Gibbs , DO Other Provider Active Start : September 18, 2024 Dr. Kris Gibbs , Referring Provider Active Start: September 18, 2024 Dr. Kris Gibbs , Other Provider Active Start: September 18, 2024 Dr. Arturo Sotelo , Attending Provider Active Start: September 18, 2024 Team Status: Inactive Member Role Status Lucinda Escobar MD Primary Care Provider Active St art: September 24, 2024 End: September 24, 2024 Dr. Conner Landry MD Attending Provider Active Start: September 24, 2024 End: September 24, 2024 Dr. Conner Landry MD Emergency Provider Active Start: September 24, 2024 End: September 24, 2024 Team Status: Inactive Member Role Status Lucinda Escobar MD Primary Care Provider Active St art: September 25, 2024 End: September 29, 2024 Dr. Ashu Garcia , DO Emergency Provider Active Start: September 25, 2024 End: September 29, 2024 Dr. Charlotte Gibbs , DO Admit Provider Active Start : September 25, 2024 End: September 29, 2024 Dr. Charlotte Gibbs , DO Attending Provider Active S tart: September 25, 2024 End: September 29, 2024 Dr. Arturo Sotelo , DO Other Provider Active St art: September 25, 2024 End: September 29, 2024 Team Status: Active Member Role Status Dates Mary Escobar MD Primary Care Provider Active St art: September 25, 2024 Dr. Ashu Garcia , DO Emergency Provider Active Start: September 25, 2024 Dr. Charlotte Gibbs , DO Admit Provider Active Start : September 25, 2024 Dr. Charlotte Gibbs , DO Attending Provider Active S tart: September 25, 2024 Dr. Charlotte Gibbs , DO Other Provider Active Start : September 25, 2024 Team Status: Active Member Role Status Dates Mary Escobar MD Primary Care Provider Active St art: September 26, 2024 Dr. Ashu Garcia , DO Emergency Provider Active Start: September 26, 2024 Dr. Charlotte Gibbs , DO Admit Provider Active Start : September 26, 2024 Dr. Charlotte Gibbs , DO Attending Provider Active S tart: September 26, 2024 Dr. Charlotte Gibbs , DO Other Provider Active Start : September 26, 2024 Dr. Arturo Sotelo , DO Other Provider Active St art: September 26, 2024 Team Status: Active Member Role Status Dates Mary Escobar MD Primary Care Provider Active St art: September 26, 2024 Dr. Ashu Garcia , DO Emergency Provider Active Start: September 26, 2024 Dr. Charlotte Gibbs , DO Admit Provider Active Start : September 26, 2024 Dr. Charlotte Gibbs , DO Other Provider Active Start : September 26, 2024 Dr. Arturo Sotelo , DO Attending Provider Active Start: September 26, 2024 Dr. Arturo Sotelo , DO Other Provider Active St art: September 26, 2024 Team Status: Active Member Role Status Dates Mary Escobar MD Primary Care Provider Active St art: September 27, 2024 Dr. Ashu Garcia , DO Emergency Provider Active Start: September 27, 2024 Dr. Charlotte Gibbs , DO Admit Provider Active Start : September 27, 2024 Dr. Charlotte Gibbs , DO Attending Provider Active S tart: September 27, 2024 Dr. Charlotte Gibbs , DO Other Provider Active Start : September 27, 2024 Dr. Arturo Sotelo , DO Other Provider Active St art: September 27, 2024 Team Status: Active Member Role Status Dates Mary Escobar MD Primary Care Provider Active St art: September 27, 2024 Dr. Ashu Garcia , DO Emergency Provider Active Start: September 27, 2024 Dr. Charlotte Gibbs , DO Admit Provider Active Start : September 27, 2024 Dr. Charlotte Gibbs , DO Other Provider Active Start : September 27, 2024 Dr. Arturo Sotelo , DO Attending Provider Active Start: September 27, 2024 Dr. Arturo Sotelo , DO Other Provider Active St art: September 27, 2024 Team Status: Active Member Role Status Dates Mary Escobar MD Primary Care Provider Active St art: September 28, 2024 Dr. Ashu Garcia , DO Emergency Provider Active Start: September 28, 2024 Dr. Charlotte Gibbs , DO Admit Provider Active Start : September 28, 2024 Dr. Charlotte iGbbs , DO Attending Provider Active S tart: September 28, 2024 Dr. Charlotte Gibbs , DO Other Provider Active Start : September 28, 2024 Dr. Arturo Sotelo DO Other Provider Active St art: September 28, 2024 Team Status: Active Member Role Status Dates Mary Escobar MD Primary Care Provider Active St art: September 28, 2024 Dr. Ashu Garcia , DO Emergency Provider Active Start: September 28, 2024 Dr. Charlotte Gibbs DO Admit Provider Active Start : September 28, 2024 Dr. Charlotte Gibbs , DO Other Provider Active Start : September 28, 2024 Dr. Arturo Sotelo DO Attending Provider Active Start: September 28, 2024 Dr. Arturo Sotelo , DO Other Provider Active St art: September 28, 2024 Team Status: Active Member Role Status Dates Mary Escobar MD Primary Care Provider Active St art: September 29, 2024 Dr. Ashu Garcia , DO Emergency Provider Active Start: September 29, 2024 Dr. Charlotte Sai , DO Admit Provider Active Start : September 29, 2024 Dr. Charlotte Gibbs , DO Attending Provider Active S tart: September 29, 2024 Dr. Charlotte Gibbs , DO Other Provider Active Start : September 29, 2024 Dr. Arturo Sotelo , DO Other Provider Active St art: September 29, 2024 Team Status: Active Member Role Status Lucinda Escobar MD Primary Care Provider Active St art: September 26, 2024 Dr. Ashu Garcia , DO Emergency Provider Active Start: September 26, 2024 Dr. Charlotte Gibbs , DO Admit Provider Active Start : September 26, 2024 Dr. Charlotte Gibbs , DO Referring Provider Active S tart: September 26, 2024 Dr. Charlotte Gibbs , DO Other Provider Active Start : September 26, 2024 Dr. Arturo Sotelo , DO Attending Provider Active Start: September 26, 2024 Dr. Arturo Sotelo , DO Other Provider Active St art: September 26, 2024 Team Status: Active Member Role Status Dates Mary Escobar MD Primary Care Provider Active St art: September 27, 2024 Dr. Ashu Garcia , DO Emergency Provider Active Start: September 27, 2024 Dr. Charlotte Gibbs , DO Admit Provider Active Start : September 27, 2024 Dr. Charlotte Gibbs , DO Referring Provider Active S tart: September 27, 2024 Dr. Charlotte Gibbs , DO Other Provider Active Start : September 27, 2024 Dr. Arturo Sotelo , DO Attending Provider Active Start: September 27, 2024 Dr. Arturo Sotelo , DO Other Provider Active St art: September 27, 2024 Team Status: Active Member Role Status Lucinda Escobar MD Primary Care Provider Active St art: September 28, 2024 Dr. Ashu Garcia , DO Emergency Provider Active Start: September 28, 2024 Dr. Charlotte Gibbs , DO Admit Provider Active Start : September 28, 2024 Dr. Charlotte Gibbs , DO Referring Provider Active S tart: September 28, 2024 Dr. Charlotte Gibbs , DO Other Provider Active Start : September 28, 2024 Dr. Arturo Sotelo , DO Attending Provider Active Start: September 28, 2024 Dr. Arturo Sotelo , DO Other Provider Active St art: September 28, 2024 Team Status: Inactive Member Role Status Dates Mary Escobar MD Primary Care Provider Active St art: October 04, 2024 End: October 04, 2024 Mary Escobar MD Referring Provider Active Start : October 04, 2024 End: October 04, 2024 PATTI Winn Attending Provider Active S tart: October 04, 2024 End: October 04, 2024 Team Status: Active Member Role Status Dates Mary Escobar MD Primary Care Provider Active St art: October 16, 2024 Dr. Ashu Garcia , DO Emergency Provider Active Start: October 16, 2024 Dr. Davis Best MD Admit Provider Active Star t: October 16, 2024 Dr. Davis Best MD Attending Provider Active Start: October 16, 2024 Dr. Davis Best MD Other Provider Active Star t: October 16, 2024 Team Status: Inactive Member Role Status Dates Mary Escobar MD Primary Care Provider Active St art: October 16, 2024 End: October 22, 2024 Dr. Ashu Garcia , DO Emergency Provider Active Start: October 16, 2024 End: October 22, 2024 Dr. Davis Best MD Admit Provider Active Star t: October 16, 2024 End: October 22, 2024 Dr. Davis Best MD Other Provider Active Star t: October 16, 2024 End: October 22, 2024 Dr. Arturo Sotelo , DO Other Provider Active St art: October 16, 2024 End: October 22, 2024 Dr. Niranjan Noe MD Attending Provider Active Start: October 16, 2024 End: October 22, 2024 Dr. Kris Gibbs , DO Other Provider Active Start: October 16, 2024 End: October 22, 2024 Team Status: Active Member Role Status Dates Mary Escobar MD Primary Care Provider Active St art: October 17, 2024 Dr. Ashu Garcia , DO Emergency Provider Active Start: October 17, 2024 Dr. Davis Best MD Admit Provider Active Star t: October 17, 2024 Dr. Davis Best MD Other Provider Active Star t: October 17, 2024 Dr. Kris Gibbs , DO Attending Provider Active Start: October 17, 2024 Dr. Kris Gibbs , DO Other Provider Active Start: October 17, 2024 Dr. Arturo Sotelo , DO Other Provider Active St art: October 17, 2024 Team Status: Active Member Role Status Dates Mary Escobar MD Primary Care Provider Active St art: October 17, 2024 Dr. Ashu Garcia , DO Emergency Provider Active Start: October 17, 2024 Dr. Davis Best MD Admit Provider Active Star t: October 17, 2024 Dr. Davis Best MD Other Provider Active Star t: October 17, 2024 Dr. Kris Gibbs , DO Referring Provider Active Start: October 17, 2024 Dr. Kris Gibbs , DO Other Provider Active Start: October 17, 2024 Dr. Arturo Sotelo , DO Attending Provider Active Start: October 17, 2024 Dr. Arturo Sotelo , DO Other Provider Active St art: October 17, 2024 Team Status: Active Member Role Status Dates Mary Escobar MD Primary Care Provider Active St art: October 18, 2024 Dr. Ashu Garcia , DO Emergency Provider Active Start: October 18, 2024 Dr. Davis Best MD Admit Provider Active Star t: October 18, 2024 Dr. Davis Best MD Other Provider Active Star t: October 18, 2024 Dr. Kris Gibbs , DO Attending Provider Active Start: October 18, 2024 Dr. Kris Gibbs , DO Other Provider Active Start: October 18, 2024 Dr. Arturo Sotelo , DO Other Provider Active St art: October 18, 2024 Team Status: Active Member Role Status Dates Mary Escobar MD Primary Care Provider Active St art: October 18, 2024 Dr. Ashu Garcia , DO Emergency Provider Active Start: October 18, 2024 Dr. Davis Best MD Admit Provider Active Star t: October 18, 2024 Dr. Davis Best MD Other Provider Active Star t: October 18, 2024 Dr. Kris Gibbs , DO Referring Provider Active Start: October 18, 2024 Dr. Kris Gibbs , DO Other Provider Active Start: October 18, 2024 Dr. Arturo Sotelo , DO Attending Provider Active Start: October 18, 2024 Dr. Arturo Sotelo , DO Other Provider Active St art: October 18, 2024 Team Status: Active Member Role Status Dates Mary Escobar MD Primary Care Provider Active St art: October 19, 2024 Dr. Ashu Garcia , DO Emergency Provider Active Start: October 19, 2024 Dr. Davis Best MD Admit Provider Active Star t: October 19, 2024 Dr. Davis Best MD Other Provider Active Star t: October 19, 2024 Dr. Kris Gibbs , DO Attending Provider Active Start: October 19, 2024 Dr. Kris Gibbs , DO Other Provider Active Start: October 19, 2024 Dr. Arturo Sotelo , DO Other Provider Active St art: October 19, 2024 Team Status: Active Member Role Status Lucinda Escobar MD Primary Care Provider Active St art: October 19, 2024 Dr. Ashu Garcia , DO Emergency Provider Active Start: October 19, 2024 Dr. Davis Best MD Admit Provider Active Star t: October 19, 2024 Dr. Davis Best MD Other Provider Active Star t: October 19, 2024 Dr. Kris Gibbs , DO Referring Provider Active Start: October 19, 2024 Dr. Kris Gibbs , DO Other Provider Active Start: October 19, 2024 Dr. Arturo Sotelo , DO Attending Provider Active Start: October 19, 2024 Dr. Arturo Sotelo , DO Other Provider Active St art: October 19, 2024 Team Status: Active Member Role Status Dates Mary Escobar MD Primary Care Provider Active St art: October 20, 2024 Dr. Ashu Garcia , DO Emergency Provider Active Start: October 20, 2024 Dr. Davis Best MD Admit Provider Active Star t: October 20, 2024 Dr. Davis Best MD Other Provider Active Star t: October 20, 2024 Dr. Kris Gibbs , DO Attending Provider Active Start: October 20, 2024 Dr. Kris Gibbs , DO Other Provider Active Start: October 20, 2024 Dr. Arturo Sotelo , DO Other Provider Active St art: October 20, 2024 Team Status: Active Member Role Status Dates Mary Escobar MD Primary Care Provider Active St art: October 21, 2024 Dr. Ashu Garcia , DO Emergency Provider Active Start: October 21, 2024 Dr. Davis Best MD Admit Provider Active Star t: October 21, 2024 Dr. Davis Best MD Other Provider Active Star t: October 21, 2024 Dr. Kris Gibbs , DO Attending Provider Active Start: October 21, 2024 Dr. Kris Gibbs , DO Other Provider Active Start: October 21, 2024 Dr. Arturo Sotelo , DO Other Provider Active St art: October 21, 2024 Team Status: Active Member Role Status Lucinda Escobar MD Primary Care Provider Active St art: October 22, 2024 Dr. Ashu Garcia , DO Emergency Provider Active Start: October 22, 2024 Dr. Davis Best MD Admit Provider Active Star t: October 22, 2024 Dr. Davis Best MD Other Provider Active Star t: October 22, 2024 Dr. Arturo Sotelo , DO Other Provider Active St art: October 22, 2024 Dr. Niranjan Noe MD Attending Provider Active Start: October 22, 2024 Dr. Niranjan Noe MD Other Provider Active Sta rt: October 22, 2024 Dr. Kris Gibbs , DO Other Provider Active Start: October 22, 2024 Team Status: Inactive Member Role Status Lucinda Escobar MD Primary Care Provider Active St art: November 29, 2024 End: November 29, 2024 Mary Escobar MD Referring Provider Active Start : November 29, 2024 End: November 29, 2024 Dr. Arturo Sotelo DO Attending Provider Active Start: November 29, 2024 End: November 29, 2024 Team Status: Active Member Role Status Lucinda Escobar MD Primary Care Provider Active St art: November 29, 2024 Mary Escobar MD Referring Provider Active Start : November 29, 2024 Dr. Arturo Sotelo DO Attending Provider Active Start: November 29, 2024 Dr. Arturo Sotelo DO Other Provider Active St art: November 29, 2024 Team Status: Active Member Role/Relationship Status Lucinda Escobar MD Primary care physician Active Team Status: Inactive Member Role/Relationship Status Lucinda Escobar MD Primary care physician Active S tart: November 29, 2024 End: November 29, 2024 Mary Escobar MD Referring Provider Active Start : November 29, 2024 End: November 29, 2024 Dr. Arturo Sotelo DO Attending physician Active Start: November 29, 2024 End: November 29, 2024 Team Status: Active Member Role/Relationship Status Lucinda Escobar MD Primary care physician Active S tart: November 29, 2024 Mary Escobar MD Referring Provider Active Start : November 29, 2024 Dr. Arturo Sotelo DO Attending physician Active Start: November 29, 2024 Dr. Arturo Sotelo DO Nurse Practitioner Active Start: November 29, 2024 Team Status: Active Member Role/Relationship Status Dates Mary Escobar MD Primary care physician Active S tart: March 27, 2025 Vinicio Gaspar MD Emergency Department Physician Active Start: March 27, 2025 Dr. Zak Carcamo DO Admitting physician Active Start: March 27, 2025 Dr. Zak Carcamo DO Attending physician Active Start: March 27, 2025 Team Status: Inactive Member Role/Relationship Status Lucinda Escobar MD Primary care physician Active S tart: March 27, 2025 End: March 30, 2025 Vinicio Gaspar MD Emergency Department Physician Active Start: March 27, 2025 End: March 30, 2025 Dr. Zak Carcamo DO Admitting physician Active Start: March 27, 2025 End: March 30, 2025 Dr. Zak Carcamo DO Nurse Practitioner Active Start: March 27, 2025 End: March 30, 2025 Dr. Niranjan Noe MD Attending physician Active Start: March 27, 2025 End: March 30, 2025 Dr. Niranjna Noe MD Nurse Practitioner Active Start: March 27, 2025 End: March 30, 2025 Dr. Arturo Sotelo DO Nurse Practitioner Active Start: March 27, 2025 End: March 30, 2025 Daniella Lawler NP-C Nurse Practitioner Active S tart: March 27, 2025 End: March 30, 2025 Nataliia Montalvo [employer]-C Nurse Practitioner Active Start: March 27, 2025 End: March 30, 2025 NOEL Lentz Nurse Practitioner Active Start: March 27, 2025 End: March 30, 2025 Team Status: Active Member Role/Relationship Status Lucinda Escobar MD Primary care physician Active S tart: March 28, 2025 Vinicio Gaspar MD Emergency Department Physician Active Start: March 28, 2025 Dr. Zak Carcamo DO Admitting physician Active Start: March 28, 2025 Dr. Zak Carcamo DO Nurse Practitioner Active Start: March 28, 2025 Dr. iNranjan Noe MD Attending physician Active Start: March 28, 2025 Dr. Niranjan Noe MD Nurse Practitioner Active Start: March 28, 2025 Dr. Arturo Sotelo DO Nurse Practitioner Active Start: March 28, 2025 PATTI Winn Nurse Practitioner Active S tart: March 28, 2025 PATTI Gunn Nurse Practitioner Active Start: March 28, 2025 NOEL Lentz Nurse Practitioner Active Start: March 28, 2025 Team Status: Active Member Role/Relationship Status Dates Mary Escobar MD Primary care physician Active S tart: March 28, 2025 Vinicio Gaspar MD Emergency Department Physician Active Start: March 28, 2025 Dr. Zak Carcamo DO Admitting physician Active Start: March 28, 2025 Dr. Zak Carcamo DO Nurse Practitioner Active Start: March 28, 2025 Dr. Niranjan Noe MD Referring Provider Active Start: March 28, 2025 Dr. Niranjan Noe MD Nurse Practitioner Active Start: March 28, 2025 Dr. Arturo Sotelo DO Attending physician Active Start: March 28, 2025 Dr. Arturo Sotelo DO Nurse Practitioner Active Start: March 28, 2025 PATTI Winn Nurse Practitioner Active S tart: March 28, 2025 PATTI Gunn Nurse Practitioner Active Start: March 28, 2025 NOEL Lentz Nurse Practitioner Active Start: March 28, 2025 Team Status: Active Member Role/Relationship Status Dates Mary Escobar MD Primary care physician Active S tart: March 29, 2025 Vinicio Gaspar MD Emergency Department Physician Active Start: March 29, 2025 Dr. Zak Carcamo DO Admitting physician Active Start: March 29, 2025 Dr. Zak Carcamo DO Nurse Practitioner Active Start: March 29, 2025 Dr. Niranjan Noe MD Attending physician Active Start: March 29, 2025 Dr. Niranjan Noe MD Nurse Practitioner Active Start: March 29, 2025 Dr. Arturo Sotelo DO Nurse Practitioner Active Start: March 29, 2025 PATTI Winn Nurse Practitioner Active S tart: March 29, 2025 PATTI Gunn Nurse Practitioner Active Start: March 29, 2025 NOEL Lentz Nurse Practitioner Active Start: March 29, 2025 Team Status: Active Member Role/Relationship Status Dates Mary Escobar MD Primary care physician Active S tart: March 29, 2025 Vinicio Gaspar MD Emergency Department Physician Active Start: March 29, 2025 Dr. Zak Carcamo DO Admitting physician Active Start: March 29, 2025 Dr. Zak Carcamo DO Nurse Practitioner Active Start: March 29, 2025 Dr. Niranjan Noe MD Referring Provider Active Start: March 29, 2025 Dr. Niranjan Noe MD Nurse Practitioner Active Start: March 29, 2025 Dr. Arturo Sotelo DO Attending physician Active Start: March 29, 2025 Dr. Arturo Sotelo DO Nurse Practitioner Active Start: March 29, 2025 PATTI Winn Nurse Practitioner Active S tart: March 29, 2025 PATTI Gunn Nurse Practitioner Active Start: March 29, 2025 NOEL Lentz Nurse Practitioner Active Start: March 29, 2025 Team Status: Active Member Role/Relationship Status Dates Mary Escobar MD Primary care physician Active S tart: March 30, 2025 Vinicio Gaspar MD Emergency Department Physician Active Start: March 30, 2025 Dr. Zak Carcamo DO Admitting physician Active Start: March 30, 2025 Dr. Zak Carcamo DO Nurse Practitioner Active Start: March 30, 2025 Dr. Niranjan Noe MD Attending physician Active Start: March 30, 2025 Dr. Niranjan Noe MD Nurse Practitioner Active Start: March 30, 2025 Dr. Arturo Sotelo DO Nurse Practitioner Active Start: March 30, 2025 PATTI Winn Nurse Practitioner Active S tart: March 30, 2025 PATTI Gunn Nurse Practitioner Active Start: March 30, 2025 NOEL Lentz Nurse Practitioner Active Start: March 30, 2025 Source Comments (unrecognize d section and content) In the event this informatio n is protected by the Federal Confidentiality of Alcohol and Drug Abuse Patient Records regulations: The Federal rules restrict any use of the information to criminally investigate or prosecute any alcohol or drug abuse patient.[facility] the event this information is protected by the Federal Confidentiality of Alcohol and Drug Abuse Patient Records regulations: The Federal rules restrict any use of the information to criminally investigate or prosecute any alcohol or drug abuse patient.[facility] Center[facility] the event this information is protected by the Federal Confidentiality of Alcohol and Drug Abuse Patient Records regulations: The Federal rules restrict any use of the information to criminally investigate or prosecute any alcohol or drug abuse patient.[facility] the event this information is protected by the Federal Confidentiality of Alcohol and Drug Abuse Patient Records regulations: The Federal rules restrict any use of the information to criminally investigate or prosecute any alcohol or drug abuse patient.[facility] CenterIn the event this information is protected by the Federal Confidentiality of Alcohol and Drug Abuse Patient Records regulations: The Federal rules restrict any use of the information to criminally investigate or prosecute any alcohol or drug abuse patient.[facility] Center[facility] the event this information is protected by the Federal Confidentiality of Alcohol and Drug Abuse Patient Records regulations: The Federal rules restrict any use of the information to criminally investigate or prosecute any alcohol or drug abuse patient.[facility] Center[facility] the event this information is protected by the Federal Confidentiality of Alcohol and Drug Abuse Patient Records regulations: The Federal rules restrict any use of the information to criminally investigate or prosecute any alcohol or drug abuse patient.[facility] CenterIn the event this information is protected by the Federal Confidentiality of Alcohol and Drug Abuse Patient Records regulations: The Federal rules restrict any use of the information to criminally investigate or prosecute any alcohol or drug abuse patient.[facility] CenterIn the event this information is protected by the Federal Confidentiality of Alcohol and Drug Abuse Patient Records regulations: The Federal rules restrict any use of the information to criminally investigate or prosecute any alcohol or drug abuse patient.[facility] CenterIn the event this information is protected by the Federal Confidentiality of Alcohol and Drug Abuse Patient Records regulations: The Federal rules restrict any use of the information to criminally investigate or prosecute any alcohol or drug abuse patient.[facility] CenterIn the event this information is protected by the Federal Confidentiality of Alcohol and Drug Abuse Patient Records regulations: The Federal rules restrict any use of the information to criminally investigate or prosecute any alcohol or drug abuse patient.[facility] CenterIn the event this information is protected by the Federal Confidentiality of Alcohol and Drug Abuse Patient Records regulations: The Federal rules restrict any use of the information to criminally investigate or prosecute any alcohol or drug abuse patient.[facility] CenterIn the event this information is protected by the Federal Confidentiality of Alcohol and Drug Abuse Patient Records regulations: The Federal rules restrict any use of the information to criminally investigate or prosecute any alcohol or drug abuse patient.[facility] CenterIn the event this information is protected by the Federal Confidentiality of Alcohol and Drug Abuse Patient Records regulations: The Federal rules restrict any use of the information to criminally investigate or prosecute any alcohol or drug abuse patient.[facility] Reason for Visit (unrecogniz ed section and [...] up Reason Comments Missed Appointment No show Reason Onset Date Comments Back Pain 09/02/2022 Reason Comments Breast Problem Scheduled Active and Recently Administ ered Medications [...] (Given - Provid er: Gregoria Vega RN) Goals (unrecognized section and content) Goals may be documented in a n alternate sectionGoals may be documented in an alternate section FOR RECORDS PERTAINING TO PATIENTS WHO ARE [...] BE BASED ON THE PRIMARY CLINICAL RECORDS. [employer] provides no warranty or guarantee of the accuracy or completeness of information in this document.
[2025-05-23 18:31] LABS: Red Blood Cells-Urine 0-5 SEEN /hpf (0-5); Squamous Epithelial Cells - UA 0-5 SEEN /hpf (5-10)
== END 2025-05-23 18:12 | disposition home or self-care (01) ==
PROVIDERS: Emergency Provider Emergency Medicine; PCP Family Medicine; Visit Provider Emergency Medicine
DX: R10.12 Left upper quadrant pain (principal); R10.A2 Flank pain, left side; R35.0 Frequency of micturition; R11.2 Nausea with vomiting, unspecified; I10 Essential (primary) hypertension; K21.9 Gastro-esophageal reflux disease without esophagitis; F32.A Depression, unspecified; F41.9 Anxiety disorder, unspecified; J02.9 Acute pharyngitis, unspecified; R06.09 Other forms of dyspnea; E66.9 Obesity, unspecified; Z68.38 Body mass index [BMI] 38.0-38.9, adult; Z79.899 Other long term (current) drug therapy; Z87.891 Personal history of nicotine dependence
CPT/HCPCS: 74177; 80053; 81001; 83690; 85025; 96361; 96374; 96375; 99283; Q9967; A4216; J2405